=== PATIENT | female | born 1955 | race Caucasian/White ===

== ENCOUNTER → 2016-05-26 | Outpatient (REF) | payer MEDICARE, MEDICAID ==
[~2016-05-26] MED LIST: /AMLO25TA PO; /LABE20TA OR; ALBU17IN2 INH; ALEV220C2 PO; ALLO100T PO; ATEN50TA2 PO; BACT800T5 PO; BENA25CA2 PO; BENZ200C PO; CALTRATE PO; COLA50CA3 PO; COLC1CAP PO; DEPA500T2 OR; DO NOT TAKE; FENO54TA2 PO; FISH100049 PO; FISH300C PO; FLON0.054; FURO40TA2 OR; GABA100C PO; GEMF600T PO; HYDR12.56 PO; HYDR200T3 PO; LASI20TA PO; LIDO5DIS36 TD; LOSA100T36 PO; LUNE2TAB OR; MAGN250T11 PO; MAGN400C2 PO; MULTIVIT PO; NEXI20CA PO; NORCOTAB PO; NORT25CA2 PO; POTA10CA PO; POTA10PO PO; ROBISYP PO; ROSU10TA PO; TESS200C PO; TYLE325T5 PO; VIBR100C PO; VICOBULK PO; VITA200015 PO; VITATAB11 PO; ZYRT10TA2 PO; [UNRECOGNIZED DRUG - OTHER] PO; astelin; flexeril PO; vicodin PO
[2016-05-26 13:32] LABS: ALBUMIN 3.5 GM/DL (3.2-5.2); ALBUMIN/GLOBULIN RATIO 1.09 (1.00-1.93); ALKALINE PHOSPHATASE 77 U/L (45-117); ALT/SGPT 77 U/L (12-78); ANION GAP 9 MEQ/L (8-16); AST/SGOT 32 U/L (15-37); BILIRUBIN,TOTAL 0.7 MG/DL (0.2-1.0); BLOOD UREA NITROGEN 15 MG/DL (7-18); CALCIUM LEVEL 8.5 MG/DL (8.8-10.2); CARBON DIOXIDE LEVEL 34 MEQ/L (21-32); CHLORIDE LEVEL 101 MEQ/L (98-107); CHOLESTEROL LEVEL 176 MG/DL (<200); CREATININE FOR GFR 0.68 MG/DL (0.55-1.02); GLOMERULAR FILTRATION RATE > 60.0 (>45); GLUCOSE, FASTING 109 MG/DL (80-110); POTASSIUM SERUM 3.6 MEQ/L (3.5-5.1); SODIUM LEVEL 144 MEQ/L (136-145); TOTAL PROTEIN 6.7 GM/DL (6.4-8.2); TRIGLYCERIDES LEVEL 560 MG/DL (<150)
== END ==
LOC: M SFHCPLAZ 08:54
PROVIDERS: ATTEND Physician Assistant
DX: I10 Essential (primary) hypertension (principal); E66.8 Other obesity; E78.2 Mixed hyperlipidemia; Z79.899 Other long term (current) drug therapy

== ENCOUNTER 2016-07-07 16:26 | Emergency (ER) | payer MEDICARE, MEDICAID ==
[~2016-07-07] VITALS: Ht 165.1 cm; Wt 106.6 kg
[~2016-07-07 16:26] MED LIST changes: -BUSP1TAB PO; -LYRI75CA PO; -METH-107 PO; -METH2.5TA PO; -NEXI40CA PO; -ONDA4TAB6 PO; -TORS100T PO
[2016-07-07] MEDS ORDERED: BUSP1TAB PO (16:49)
[2016-07-07] MEDS ORDERED: LYRI75CA PO (16:49)
[2016-07-07] MEDS ORDERED: METH2.5TA PO (16:49)
[2016-07-07] MEDS ORDERED: TORS100T PO (16:49)
[2016-07-07] MEDS ORDERED: METH-107 PO (16:49)
[2016-07-07] MEDS: MORPHINE 2 MG/ML 1ML SYRINGE IV PRN ×4 (16:59→18:24)
[2016-07-07 17:29] LABS: BASO % 0.7 % (0.0-1.0); EOS # 0.1 K/mm3 (0.0-0.50); EOS % 1.6 % (0.0-3.0); LARGE UNSTAINED CELL # 0.1 K/mm3 (0.0-0.4); LARGE UNSTAINED CELL % 2.1 % (0.0-4.0); LYMPH # 1.4 K/mm3 (1.5-4.5); LYMPH % 30.1 % (24.0-44.0); MEAN CORPUSCULAR HEMOGLOBIN 33.8 pg (27.0-33.0); MEAN CORPUSCULAR HGB CONC 35.3 g/dl (32.0-36.5); MEAN CORPUSCULAR VOLUME 95.6 fl (80.0-96.0); MONO # 0.2 K/mm3 (0.0-0.8); MONO % 4.7 % (0.0-5.0); NEUTROPHILS # 2.9 K/mm3 (1.8-7.7); NEUTROPHILS % 60.8 % (36.0-66.0); PLATELET COUNT, AUTOMATED 141 k/mm3 (150-450); RED CELL DISTRIBUTION WIDTH 14.8 % (11.5-14.5); WHITE BLOOD COUNT 4.7 K/mm3 (4.0-10.0)
[2016-07-07 17:40] LABS: ALBUMIN 3.7 GM/DL (3.2-5.2); ALBUMIN/GLOBULIN RATIO 1.03 (1.00-1.93); ALKALINE PHOSPHATASE 92 U/L (45-117); ALT/SGPT 84 U/L (12-78); ANION GAP 8 MEQ/L (8-16); AST/SGOT 31 U/L (15-37); BILIRUBIN,DIRECT 0.2 MG/DL (0.0-0.2); BILIRUBIN,TOTAL 0.8 MG/DL (0.2-1.0); BLOOD UREA NITROGEN 14 MG/DL (7-18); CALCIUM LEVEL 8.3 MG/DL (8.8-10.2); CARBON DIOXIDE LEVEL 33 MEQ/L (21-32); CHLORIDE LEVEL 100 MEQ/L (98-107); GLOMERULAR FILTRATION RATE > 60.0 (>45); GLUCOSE, FASTING 115 MG/DL (80-110); POTASSIUM SERUM 3.6 MEQ/L (3.5-5.1); SODIUM LEVEL 141 MEQ/L (136-145); TOTAL PROTEIN 7.3 GM/DL (6.4-8.2)
[2016-07-07] MEDS: NITROGLYCERIN 0.4 MG SUBL TABLET SL PRN ×3 (21:11→21:25)
[2016-07-07 21:25] VITALS: BP 125/70
[2016-07-07] MEDS ORDERED: KETOROLAC 30 MG/ML VIAL (J1885) IV ONE (21:30)
[2016-07-07] MEDS ORDERED: ONDANSETRON 4MG/2ML VIAL (J2405) IV ONE (21:45)
[2016-07-07 21:58] VITALS: O2SAT 95
[2016-07-07 22:19] LABS: ABG BASE EXCESS 4.6 (-2.0-2.0); ABG HCO3 30.7 MEQ/L (22.0-26.0); ABG PARTIAL PRESSURE CO2 52.3 mmHg (35.0-45.0); ABG STANDARD HCO3 28.5 MEQ/L (22.0-26.0); ABG TOTAL CO2 32.3 MEQ/L (23.0-31.0); ABG pH (ARTERIAL) 7.387 UNITS (7.350-7.450)
[2016-07-07] MEDS ORDERED: PROMETHAZINE INJ 25 MG/ML VIAL (J2550) IV ONE (22:30)
[2016-07-07] MEDS ORDERED: GI COCKTAIL 50ML BTL(HYOSCYAMINE/MAALOX/LIDOCAINE VISCOUS)(1:3:1) PO ONE (23:00)
[2016-07-07] MEDS ORDERED: ISOVUE-370 76% 100ML VIAL (Q9967) As Ordered ONE (23:48)
--- NOTE | 2016-07-08 00:20 | REPUSA ---
CT of the abdomen and pelvis with contrast Clinical statement: Pain. Technique: Multiple axial CT images were obtained from the base of the lungs through the floor of the pelvis utilizing 5 mm axial slices after administration of nonionic intravenous contrast. Coronal an d sagittal reconstructions were also obtained. Comparison: 11/09/2015. Findings: Chest: The visualized lung bases demonstrate linear atelectasis bilaterally. There is a moderate siz ed hiatal hernia. Abdomen: The spleen, pancreas, kidneys, and adrenal glands are unremarkable. The liver is enlarged, d emonstrate diffuse low attenuation of the hepatic parenchyma. The liver measures 25.2 cm in diameter. No focal hepatic masses are appreciated. The aorta is within normal limits. There is no evidence of abdominal lymphadenopathy or ascites. Pelvis: The bowel is unremarkable, with no obstructive or inflammatory changes. Diffuse diverticulosi s is noted, without evidence of diverticulitis. The urinary bladder is within normal limits. The othe r pelvic structures appear grossly intact. There is no evidence of pelvic lymphadenopathy or ascites. Bones: There are no suspicious osseous abnormalities seen. Impression: 1. No obstructive or inflammatory bowel changes. Diffuse diverticulosis without evidence of diverticu litis. 2. Moderate sized hiatal hernia. 3.. Linear atelectasis in the lung bases bilaterally. 4. Hepatomegaly with diffuse fatty infiltration of the liver. 5. Overall, no significant change since the prior study.
[2016-07-08] MEDS ORDERED: ONDA4TAB6 PO (00:25)
[2016-07-08] MEDS ORDERED: NEXI40CA PO (00:25)
[2016-07-08 00:52] VITALS: BP 105/53
--- NOTE | 2016-07-08 07:01 | REP ---
CHEST, TWO VIEWS: Two views of the chest are performed and compared to prior study of 01/06/2016. There is mild bibasilar interstitial fibrotic change without evidence of acute infiltrate or pulmonary edema. Cardiac silhouette appears mildly enlarged. There is some tortuosity of the thoracic aorta. Mediastinal silhouette is unchanged. There are degenerative changes of the spine. IMPRESSION: Mild stable chronic findings without evidence of acute pulmonary disease. Signed by Sae Alfredo MD 07/08/2016 04:33 P
--- NOTE | 2016-07-09 08:34 | ECGEPIP ---
Stationary ECG Study [facility] - ED Test Date: 2016-07-07 Pat Name: JEREMI MALLOY Department: Room: - Gender: F Addressograph Operator: dacia : 1955 Requested By: TONYA BUENROSTRO Order Number: [id number] Reading MD: Jessica Miguel Measurements Intervals [place] Rate: 82 P: 43 NV: 159 QRS: 7 QRSD: 94 T: 57 QT: 369 QTc: 433 Interpretive Statements SINUS RHYTHM NONSPECIFIC T-WAVE ABNORMALITY INCREASED RATE 01/07/16 Electronically Signed On 07-09-2016 8:34:41 EDT by Jessica Miguel
--- NOTE | 2016-07-09 08:41 | ECGEPIP ---
Stationary ECG Study [facility] - ED Test Date: 2016-07-07 Pat Name: JEREMI MALLOY Department: Room: - Gender: F Bath Mixer: gunnar : 1955 Requested By: Jessica Miguel Order Number: [id number] Reading MD: Jessica Miguel Measurements Intervals [place] Rate: 71 P: 31 KS: 170 QRS: 1 QRSD: 92 T: 43 QT: 396 QTc: 432 Interpretive Statements SINUS RHYTHM MODERATE VOLTAGE CRITERIA FOR LVH, CONSIDER NORMAL VARIANT NONSPECIFIC T-WAVE ABNORMALITY DECREASED RATE 07/07/16 16:38 Electronically Signed On 07-09-2016 8:40:40 EDT by Jessica Miguel
== END 2016-07-08 01:01 | disposition home or self-care (01) ==
LOC: M ED 17:24
DX: K44.9 Diaphragmatic hernia without obstruction or gangrene (principal); K21.9 Gastro-esophageal reflux disease without esophagitis; M45.9 Ankylosing spondylitis of unspecified sites in spine; J45.909 Unspecified asthma, uncomplicated; R51 Headache; G47.33 Obstructive sleep apnea (adult) (pediatric); Z87.891 Personal history of nicotine dependence
CPT/HCPCS: 36415; 36600; 71020; 72052; 72072; 74177; 80048; 80076; 82550; 82553; 82803; 83880; 84484; 85025; 85379; 93005; 93041; 96374; 96375; 99285; J1885; J2405; Q9967

== ENCOUNTER → 2016-07-07 | Outpatient (CLI) | payer MEDICARE, MEDICAID ==
[~2016-07-07] MED LIST changes: +BUSP1TAB PO; +CRES10TA32 PO; +LYRI75CA PO; +METH-107 PO; +METH2.5TA PO; +NEXI40CA PO; +ONDA4TAB6 PO; -ROSU10TA PO; +TORS100T PO
--- NOTE | 2016-07-07 13:07 | REP ---
CERVICAL SPINE, NINE VIEWS: HISTORY: Anklyosing spondylitis. The cervical spine is visualized from C1-2 to C6-7 level in the lateral radiographs. There is no acute fracture or subluxation. The C3-4 through C6-7 intervertebral discs are decreased in height consistent with disc degeneration. Osteophytes are present on C5-7. There is narrowing of the left C4-6 neural foramina secondary to uncinate process hypertrophy. IMPRESSION: Degenerative change as described above. Signed by Dequan Dhillon MD 07/07/2016 01:11 P
--- NOTE | 2016-07-07 13:08 | REP ---
THORACIC SPINE, TWO VIEWS: HISTORY: Anklyosing spondylitis. There is no acute fracture or subluxation. There is loss of height of several mid and lower thoracic intervertebral discs. Osteophytes are present in the mid and lower thoracic spine. There is minimal scoliosis convex to the right. IMPRESSION: Degenerative change as described above. Signed by Dequan Dhillon MD 07/07/2016 01:11 P
== END ==
LOC: M RAD 11:04
PROVIDERS: ATTEND Nurse Practitioner Family
DX: M45.6 Ankylosing spondylitis lumbar region (principal)

== ENCOUNTER 2016-07-17 07:43 | Inpatient (IN) | payer MEDICARE, MEDICAID ==
[~2016-07-17] VITALS: Ht 165.1 cm; Wt 106.3 kg
[~2016-07-17 07:43] MED LIST changes: +BUSP1TAB PO; +LYRI75CA PO; +METH-107 PO; +METH2.5TA PO; +NEXI40CA PO; +ONDA4TAB6 PO; +TORS100T PO
[2016-07-17] MEDS ORDERED: NS 1,000 ML IV SCH (08:54)
[2016-07-17] MEDS: ALLOPURINOL 100 MG TAB PO SCH (09:00)
[2016-07-17] MEDS: LOSARTAN 50 MG TAB PO SCH (09:00)
[2016-07-17] MEDS: POTASSIUM CHLORIDE 10 MEQ SR TABLET PO SCH (09:00)
[2016-07-17] MEDS: VITAMIN D 1,000 INTERNATIONAL UNITS TABLET PO SCH (09:00)
[2016-07-17] MEDS: MULTIVITAMINS/MINERALS THERAP 1 TAB PO SCH (09:00)
[2016-07-17] MEDS: MORPHINE 4 MG/ML 1ML SYRINGE IV PRN ×2 (09:37→10:13)
[2016-07-17 09:40] LABS: BASO % 0.6 % (0.0-1.0); EOS % 0.5 % (0.0-3.0); LARGE UNSTAINED CELL # 0.1 K/mm3 (0.0-0.4); LARGE UNSTAINED CELL % 0.8 % (0.0-4.0); LYMPH # 1.5 K/mm3 (1.5-4.5); LYMPH % 22.3 % (24.0-44.0); MEAN CORPUSCULAR HEMOGLOBIN 33.5 pg (27.0-33.0); MEAN CORPUSCULAR VOLUME 95.6 fl (80.0-96.0); MONO # 0.3 K/mm3 (0.0-0.8); NEUTROPHILS # 4.8 K/mm3 (1.8-7.7); NEUTROPHILS % 70.7 % (36.0-66.0); PLATELET COUNT, AUTOMATED 136 k/mm3 (150-450); RED CELL DISTRIBUTION WIDTH 15.3 % (11.5-14.5); WHITE BLOOD COUNT 6.7 K/mm3 (4.0-10.0)
[2016-07-17 09:59] LABS: ALBUMIN 3.6 GM/DL (3.2-5.2); ALBUMIN/GLOBULIN RATIO 0.92 (1.00-1.93); ALKALINE PHOSPHATASE 85 U/L (45-117); ALT/SGPT 54 U/L (12-78); ANION GAP 9 MEQ/L (8-16); AST/SGOT 14 U/L (15-37); BILIRUBIN,DIRECT 0.1 MG/DL (0.0-0.2); BILIRUBIN,TOTAL 0.4 MG/DL (0.2-1.0); BLOOD UREA NITROGEN 18 MG/DL (7-18); CALCIUM LEVEL 8.6 MG/DL (8.8-10.2); CARBON DIOXIDE LEVEL 34 MEQ/L (21-32); CHLORIDE LEVEL 99 MEQ/L (98-107); GLOMERULAR FILTRATION RATE > 60.0 (>45); GLUCOSE, FASTING 125 MG/DL (80-110); POTASSIUM SERUM 3.8 MEQ/L (3.5-5.1); SODIUM LEVEL 142 MEQ/L (136-145); TOTAL PROTEIN 7.5 GM/DL (6.4-8.2)
--- NOTE | 2016-07-17 11:44 | REP ---
CT ABDOMEN: HISTORY: Right flank pain. COMPARISON: 16 priors. The lung bases are unchanged. Diffuse low density is seen throughout the hepatic parenchyma. There has been previous cholecystectomy. The spleen, pancreas, adrenal glands are unchanged. The kidneys are unchanged. There is no nephroureterolithiasis, hydronephrosis or hydroureter. There are no urinary bladder calcifications. There are bilateral pelvic phleboliths, status quo. There is no free fluid or free air in the abdomen or pelvis. The abdominal aorta and paraaortic regions are unchanged. The bowel loops and their mesenteries are within normal limits. There is colonic diverticulosis, status quo. There is no change in the osseous structures. IMPRESSION: No acute disease. There is fatty infiltration of the liver, status quo. There is no significant change compared to the prior exam other than technique. Signed by Saravanan Cheema DO 07/17/2016 01:32 P
[2016-07-17] MEDS ORDERED: MORPHINE 4 MG/ML 1ML SYRINGE IV ONE (12:00)
[2016-07-17] MEDS ORDERED: ROSU20TA PO (14:04)
[2016-07-17] MEDS ORDERED: ACET-654 PO (14:04)
[2016-07-17] MEDS ORDERED: [UNRECOGNIZED DRUG - CODE] PO (14:11)
[2016-07-17] MEDS ORDERED: VITMTA PO (14:11)
[2016-07-17] MEDS ORDERED: METH4PACK PO (14:13)
[2016-07-17] MEDS ORDERED: FLUTISP (14:15)
[2016-07-17 14:20] VITALS: BP 154/86
[2016-07-17] MEDS ORDERED: ONDANSETRON 4MG/2ML VIAL (J2405) IV PRN (14:45)
[2016-07-17] MEDS ORDERED: PERCOCET 5MG/325MG TAB PO PRN (14:45)
[2016-07-17] MEDS ORDERED: BISACODYL 5 MG TAB PO PRN (14:45)
[2016-07-17] MEDS ORDERED: MORPHINE 2 MG/ML 1ML SYRINGE IV PRN (14:45)
[2016-07-17] MEDS ORDERED: ALBUTEROL 90 MCG/ACT 8GM HFA INHALER INH PRN (15:00)
[2016-07-17] MEDS ORDERED: FLUTICASONE PROP 0.05% NASAL SPRAY 16 GM (FLONASE) PRN (15:00)
[2016-07-17 15:55] LABS: ERYTHROCYTE SEDIMENTATION RATE 13 mm/hr (0-30)
[2016-07-17] MEDS: TORSEMIDE 100 MG TAB PO SCH ×2 (16:17→18:10)
[2016-07-17] MEDS: MAGNESIUM OXIDE 400 MG TAB (MAG-OX) PO SCH ×2 (17:14→20:43)
[2016-07-17] MEDS: PERCOCET 5MG/325MG TAB PO PRN ×2 (17:16→23:31)
[2016-07-17] MEDS: ROSUVASTATIN 10 MG TAB (CRESTOR) PO SCH (20:41)
[2016-07-17] MEDS: SENOKOT S TAB PO SCH (20:42)
[2016-07-17] MEDS: busPIRone 5 MG TAB PO SCH (20:42)
[2016-07-17] MEDS: PREGABALIN 100 MG CAP (LYRICA) PO SCH (20:42)
[2016-07-17] MEDS: ENOXAPARIN 40 MG/0.4 ML SYRINGE (J1650) SC SCH (20:43)
[2016-07-17] MEDS: PANTOPRAZOLE 40MG TAB (PROTONIX) PO SCH (20:43)
[2016-07-17] MEDS ORDERED: METHOTREXATE 2.5 MG TAB (J8610) PO SCH (21:00)
--- NOTE | 2016-07-17 21:10 | HPE ---
DATE OF ADMISSION: 07/17/2016 CHIEF COMPLAINT: Right lower back pain. HISTORY: The patient presents with apparent increased back pain beginning at about 5:30 this morning. The patient came to the ED and now, according to the emergency room (ER) staff, refuses to be discharged home. She has no numbness, tingling, weakness, no loss of bladder or bowel control. She apparently has a long-term history of back pain and problems related to her back which plagued her for many years. She normally sees Chad Gandhi in the clinic. She was in the ED a few days ago after some chest discomfort and diagnosis was presumptive GERD. Apparently has an appointment with Dr. Marino. Has seen Dr. He in [place] for her apparent arthritis. She is on low dose methotrexate 7.5 mg weekly, I am not sure which day she takes her methotrexate. Gives a history of having ankylosing spondylitis although I do not see that diagnosis on her chart from the clinic. 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 PAST MEDICAL HISTORY: Includes hypertension, chronic low back pain with radiculitis, degenerative disc disease, seeing Dr. Marino locally, history of gout, history of COPD, seeing Dr. Saavedra. ALLERGIES: Include CIPRO, PENICILLIN and SPIRONOLACTONE, these apparently trigger skin reactions, allergy skin reactions listed as hives in her office record. PAST SURGICAL HISTORY: Includes hysterectomy in 2000, cholecystectomy in 1999, at which time she says she also had appendectomy, thyroidectomy in 2003, hernia repair in December 2015. Has a psychiatric history with suicide attempt and hospitalized some 20 years ago. FAMILY HISTORY: Positive for others with arthritic diseases she says and diabetes in her mother. MEDICATIONS: Include: - fish oil capsules 1000 mg daily - Nexium 40 mg daily - vitamin D 2000 units daily - potassium chloride 20 mEq daily - colchicine 0.6 mg daily as needed for gout - Aleve 220 mg twice a day as needed - ProAir two puffs every 4 hours as needed - methotrexate 7.5 mg weekly - Lyrica 75 mg twice a day - vitamin C 500 mg daily - Colace 100 mg by mouth daily - torsemide 100 mg by mouth daily - metformin 500 mg twice a day - Crestor 20 mg daily - magnesium oxide 400 mg by mouth three times a day - buspirone 7.5 mg twice a day - allopurinol 100 mg daily - Cozaar 100 mg daily - methocarbamol 500 mg three times a day Listed as not taking her last clinic note was hydrocodone 5/325 three times a day. PHYSICAL EXAMINATION: GENERAL: Obese white female in no apparent distress. Blood pressure 134/71, pulse 66, respiratory rate is 18, oxygen saturation 95% on room air. HEENT: Round, escalante facies, prominent parotids. No oral pharyngeal lesions, no tracheal shift. No palpable thyroid enlargement. No bruits noted. No oral lesions are detected. Neck movements were limited, patient declines to right and left rotate her neck, up and down tilt was also limited she says by pain. No palpable masses noted as dictated. HEART: Regular rhythm, no murmurs, gallops, rubs detected. PMI is diffuse, cannot be palpated clearly. LUNGS: No wheezing, rales or rhonchi heard at this time. ABDOMEN: Obese, prominent central obesity pattern. No guarding, rebound, mass, tenderness, and bowel sounds are present. EXTREMITIES: Show trace edema lower extremities. No pulse deficit. Moves all extremities well. The patient denies bowel or bladder control difficulties. She is tender to palpation over the lumbar elements approximately 4-5 and S1 with pain predominantly on the right side and pain radiating into the sciatic notch. She has no radicular pain down the right leg that is prominent at this time however. LABORATORY DATA: Developed so far as a result of this ER stay include CBC which shows a normal hemoglobin of 13.3, white count 6700, platelet count slightly low 136,000, etiology obscure at this point. Sodium was 142, CO2 34, and it looks like her CO2s have been high, particularly in the past couple of years but not exclusively so, she had CO2s of 33.7 as long ago as 2007, and calcium is 8.6. Liver enzymes are measured to be normal today, although she had an 84 ALT just about 2 weeks ago, the globulin ratio was slightly low at 0.92, and her total albumin 3.6. Previous KIRSTEN was positive at 1:640 and arterial blood gas was checked 2 weeks ago and pCO2 was 52.3. 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 There is no demonstrable neurologic disturbance that would prohibit ambulation other than simple pain perception. PLAN: 1. Admit. Analgesics. MRI of low back will be obtained, supposedly one was done elsewhere but the results are not available for review at this time. She says she has an appointment with pain specialist in the community whose name she could not reproduce today. Check sedimentation rate, CRP, since she has had instrumentation it is possible this could be an infection, although she has no fever or leukocytosis. I think this probability is low. 2. COPD with chronic hypercarbic respiratory failure. Looks to be well-compensated at this time requiring no specific therapeutics, but we will measure nocturnal oximetry. She is taking analgesics that could potentially depress respiratory drive and in the setting of CO2 retention this could be troublesome. Of note, the patient had recently been taken off her long-term narcotic medications, and it is possible this admission stems from that recent discontinuation.
[2016-07-17 22:00] VITALS: BP 143/81
[2016-07-18] MEDS ORDERED: PROMETHAZINE 25 MG TAB PO PRN (01:30)
[2016-07-18 06:00] VITALS: BP 127/83
[2016-07-18] MEDS: NORCO, ANEXSIA 5/325MG TABLET (HYDROcodone/ACETAMINOPHEN) PO PRN ×3 (06:13→16:33)
[2016-07-18 07:00] LABS: ALKALINE PHOSPHATASE 92 U/L (45-117); AST/SGOT 49 U/L (15-37); BILIRUBIN,TOTAL 0.6 MG/DL (0.2-1.0); BLOOD UREA NITROGEN 17 MG/DL (7-18); CHLORIDE LEVEL 97 MEQ/L (98-107); CREATININE FOR GFR 0.71 MG/DL (0.55-1.02); GLUCOSE, FASTING 136 MG/DL (80-110); MAGNESIUM LEVEL 2.2 MG/DL (1.8-2.4); POTASSIUM SERUM 3.8 MEQ/L (3.5-5.1); SODIUM LEVEL 141 MEQ/L (136-145); TOTAL PROTEIN 7.3 GM/DL (6.4-8.2)
[2016-07-18 07:16] LABS: ALT/SGPT 90 U/L (12-78)
[2016-07-18] MEDS: LOSARTAN 50 MG TAB PO SCH (08:07)
[2016-07-18] MEDS: busPIRone 5 MG TAB PO SCH ×2 (08:07→21:07)
[2016-07-18] MEDS: TORSEMIDE 100 MG TAB PO SCH (08:07)
[2016-07-18] MEDS: PANTOPRAZOLE 40MG TAB (PROTONIX) PO SCH ×2 (08:08→21:08)
[2016-07-18] MEDS: VITAMIN D 1,000 INTERNATIONAL UNITS TABLET PO SCH (08:08)
[2016-07-18] MEDS: MULTIVITAMINS/MINERALS THERAP 1 TAB PO SCH (08:08)
[2016-07-18] MEDS: SENOKOT S TAB PO SCH ×2 (08:08→21:08)
[2016-07-18] MEDS: ALLOPURINOL 100 MG TAB PO SCH (08:08)
[2016-07-18] MEDS: MAGNESIUM OXIDE 400 MG TAB (MAG-OX) PO SCH ×3 (08:08→21:08)
[2016-07-18] MEDS: PREGABALIN 100 MG CAP (LYRICA) PO SCH ×2 (08:08→21:08)
[2016-07-18] MEDS: POTASSIUM CHLORIDE 10 MEQ SR TABLET PO SCH (08:08)
--- NOTE | 2016-07-18 09:01 | IPNPDOC ---
Subjective Date Seen The patient was seen on 07/18/16. Subjective Chief Complaint/HPI The patient is a 60-year-old female admitted with a reason for visit of Low Back Pain. Events since last encounter Pt with continues with LBP unchanged. She is scheduled for MRI today. Denies any current radiation into lower extremities. Denies any loss of bowel or bladder control. Denies CP, SOB, Abd pain. Constitutional: Denies: Chills, Fever Pulmonary: Denies: Dyspnea Cardiovascular: Denies: Chest Pain Gastrointestinal: Denies: Nausea, Vomiting, Abdominal Pain Objective Physical Examination General Exam: Positive: Alert, No Acute Distress ENT Exam: Positive: Atraumatic Neck Exam: Positive: Supple, Negative: JVD Chest Exam: Positive: Clear to auscultation Heart Exam: Positive: Rate Normal, Regular Rhythm Abdomen Exam: Positive: Normal bowel sounds, Soft, Negative: Tenderness Extremity Exam: Negative: Edema Neuro Exam: Positive: Strength at 5/5 X4 ext, Sensation Intact Assessment /Plan Problems (1) Low back pain Status: Acute Problem Specific Plan: Monitor Clinically Problem Text: Acute point tenderness at 530 07/17/16 waking out of sleep mainly R L3/4 vertebral body-r/o fracture/met. No precedent fall/trauma 07/17/16 WBC 6.7, ESR 13, CRP <0.3, afebrile 07/16/16 CT AP NAD PT ordered. MRI ordered. Pt follows with Jamila (who 07/06/16 recommended and scheduled repeat B L5/S1 epidural "which helped in past")-has f/u 07/26/16 (2) Hiatal hernia with gastroesophageal reflux Status: Acute Problem Specific Plan: Monitor Clinically Problem Text: On Protonix. (3) HTN (hypertension) Status: Chronic Problem Specific Plan: Monitor Clinically Problem Text: On Cozaar and demadex. (4) COPD (chronic obstructive pulmonary disease) Status: Chronic Problem Specific Plan: Monitor Clinically Problem Text: Resp status stable. Pt follows with pulm. (5) Fibromyalgia Status: Chronic Problem Specific Plan: Monitor Clinically Problem Text: Pt follows Dr. Froilan Valadez Rheum-apt 07/25/16 Last seen 10/26/15 during [facility] SSZ changed to MTX 7.5 qW and + Lyrica c recommended f/u in 3M (6) Undifferentiated connective tissue disease Status: Chronic Response to Treatment: Stable Problem Text: Currently, no evidence of activity Pt follows Dr. Froilan Valadez Rheum-apt 07/25/16 Last seen 10/26/15 during [facility] SSZ changed to MTX 7.5 qW and + Lyrica c recommended f/u in 3M Plan/VTE VTE Prophylaxis Ordered?: Yes VS, I&O, 24H, Fishbone Vital Signs/I&O Vital Signs Date Time Temp Pulse Resp B/P (MAP) Pulse Ox O2 Delivery O2 Flow Rate FiO2 07/18/16 06:43 18 Room Air 07/18/16 06:00 97.0 63 127/83 (98) 95 I&O- Last 24 Hours up to 6 AM 07/18/16 06:00 Intake Total 1500 ml Output Total 1600 ml Balance -100 ml Laboratory Data 24H LABS Laboratory Tests 2 07/17/16 09:33: White Blood Count 6.7, Red Blood Count 3.98L, Hemoglobin 13.3, Hematocrit 38.1, Mean Corpuscular Volume 95.6, Mean Corpuscular Hemoglobin 33.5H, Mean Corpuscular Hemoglobin Concent 35.0, Red Cell Distribution Width 15.3H, Platelet Count 136L, Neutrophils (%) (Auto) 70.7H, Lymphocytes (%) (Auto) 22.3L , Monocytes (%) (Auto) 5.0, Eosinophils (%) (Auto) 0.5, Basophils (%) (Auto) 0.6 , Neutrophils # (Auto) 4.8, Lymphocytes # (Auto) 1.5, Monocytes # (Auto) 0.3, Eosinophils # (Auto) 0.0, Basophils # (Auto) 0.0, Large Unclassified Cells % 0.8 , Large Unclassified Cells # 0.1, Erythrocyte Sedimentation Rate 13, Anion Gap 9 , Glomerular Filtration Rate > 60.0, Calcium Level 8.6L, Aspartate Amino Transf (AST/SGOT) 14L, Alanine Aminotransferase (ALT/SGPT) 54, Alkaline Phosphatase 85 , Total Bilirubin 0.4, Direct Bilirubin 0.1, C-Reactive Protein, Quantitative < 0.30, Total Protein 7.5, Albumin 3.6, Albumin/Globulin Ratio 0.92L, Lipase 135 07/17/16 13:17: Urine Appearance CLEAR, Urine Color YELLOW, Urine pH 6.0, Urine Specific [place] 1.009, Urine Protein NEGATIVE, Urine Glucose (UA) NEGATIVE, Urine Ketones NEGATIVE, Urine Urobilinogen 0.2, Urine Bilirubin NEGATIVE, Urine Leukocyte Esterase 1+H, Urine Blood NEGATIVE, Urine Nitrite NEGATIVE, Urine WBC (Auto) 19H, Urine RBC (Auto) 1, Urine Hyaline Casts (Auto) 0, Urine Bacteria ( Auto) NEGATIVE, Urine Squamous Epithelial Cells 1, Urine Sperm (Auto) 07/18/16 06:17: Calcium Level 8.0L, Aspartate Amino Transf (AST/SGOT) 49H, Alanine Aminotransferase (ALT/SGPT) 90H, Alkaline Phosphatase 92, Total Bilirubin 0.6, Total Protein 7.3, Albumin 3.4, Blood Urea Nitrogen 17, Creatinine 0.71, Sodium Level 141, Potassium Level 3.8, Chloride Level 97L, Carbon Dioxide Level 36H, Magnesium Level 2.2 CBC/BMP Laboratory Tests 07/17/16 09:33 Red Blood Count 3.98 L, Mean Corpuscular Volume 95.6, Mean Corpuscular Hemoglobin 33.5 H, Mean Corpuscular Hemoglobin Concent 35.0, Red Cell Distribution Width 15.3 H, Neutrophils (%) (Auto) 70.7 H, Lymphocytes (%) (Auto ) 22.3 L, Monocytes (%) (Auto) 5.0, Eosinophils (%) (Auto) 0.5, Basophils (%) ( Auto) 0.6, Neutrophils # (Auto) 4.8, Lymphocytes # (Auto) 1.5, Monocytes # (Auto ) 0.3, Eosinophils # (Auto) 0.0, Basophils # (Auto) 0.0 07/18/16 06:17 Calcium Level 8.0 L, Aspartate Amino Transf (AST/SGOT) 49 H, Alanine Aminotransferase (ALT/SGPT) 90 H, Alkaline Phosphatase 92, Total Bilirubin 0.6, Total Protein 7.3, Albumin 3.4 Microbiology Microbiology 07/17/16 Urine Culture, Received Pending Chad Gandhi July 18, 2016 09:01 Stephan Daniel M.D. July 18, 2016 14:05
--- NOTE | 2016-07-18 09:25 | NOCOX ---
DATE OF PROCEDURE: 07/17/2016 INTERPRETATION: Nocturnal recording oximetry was performed on room air. Baseline saturation 94%. Lowest oxygen saturation 86%. Pattern was somewhat artifactual. There was a period of desaturation to 86%. IMPRESSION: Normal baseline oxygen saturation on room air but with episodes up to 15 minutes of desaturation to 86%. The pattern suggesting hypoventilatory oxygen desaturation.
[2016-07-18 10:52] LABS: ALBUMIN 3.4 GM/DL (3.2-5.2); ALBUMIN/GLOBULIN RATIO 0.87 (1.00-1.93); ANION GAP 8 MEQ/L (8-16); CARBON DIOXIDE LEVEL 36 MEQ/L (21-32)
[2016-07-18 14:00] VITALS: BP 139/80
[2016-07-18] MEDS: ENOXAPARIN 40 MG/0.4 ML SYRINGE (J1650) SC SCH (21:07)
[2016-07-18] MEDS: ROSUVASTATIN 10 MG TAB (CRESTOR) PO SCH (21:07)
[2016-07-18 22:00] VITALS: BP 131/77
[2016-07-19] MEDS: NORCO, ANEXSIA 5/325MG TABLET (HYDROcodone/ACETAMINOPHEN) PO PRN ×2 (00:29→08:37)
[2016-07-19 06:00] VITALS: BP 138/89
--- NOTE | 2016-07-19 06:47 | REP ---
MRI lumbar spine without contrast: History: Right-sided low back pain. Comparison MRI study is from August 12, 2013. Technique: Sagittal and axial T1 and T2-weighted scans are acquired in the usual fashion with and without fat saturation. Sequences include spin echo, turbo spin-echo, and STIR imaging sequences. MRI technique: There is a stable benign hemangioma in the superior posterior aspect of the L1 vertebral body measuring 1.4 cm in greatest diameter. This is unchanged. Cortical and medullary bone signal intensity are otherwise felt to be normal. Lumbar vertebral body heights are preserved. Alignment is normal. There is a small cyst in the medial cortex of the left mid kidney 9 mm in greatest diameter. No other extra vertebral abnormality is observed. Normal caliber aorta is seen. Conus medullaris is normal in position and appearance at the L1-L2 disc level. Sagittal images at T11-12 demonstrate central disc bulging unchanged from the 2013 study. The T11-12 disc shows narrowing and decreased signal intensity. At T12-L1, there is no significant abnormality. At L1-L2, there is mild disc space narrowing and decreased disc space signal intensity consistent with degenerative disc disease. No central canal stenosis or neural foraminal narrowing is seen. At L2-3, there is no significant abnormality. At L3-4, there is mild diffuse disc bulging effacing the ventral subarachnoid space. No central canal stenosis or neural foraminal narrowing is seen. At L4-5, there is minimal diffuse disc bulging. Mild facet hypertrophy is noted bilaterally. No central canal stenosis is seen. No neural foraminal encroachment. At L5-S1, there is degenerative disc narrowing and diffuse disc bulging. There is moderate facet hypertrophy bilaterally. No discernible neural foraminal narrowing is seen. Impression: Mild degenerative disc changes L5-S1, L3-4, and L2-3 as well as in the lower thoracic spine. Disc bulging at L4-5 and L5-S1 and L3-4. Facet hypertrophy most pronounced bilaterally at L5-S1. Findings are essentially unchanged from August 2013 prior study. Signed by Faizan Gomes MD 07/19/2016 08:24 A
[2016-07-19 06:50] LABS: MEAN CORPUSCULAR HGB CONC 34.4 g/dl (32.0-36.5); MEAN CORPUSCULAR VOLUME 98.8 fl (80.0-96.0); WHITE BLOOD COUNT 5.1 K/mm3 (4.0-10.0)
[2016-07-19 07:17] LABS: ALBUMIN 3.1 GM/DL (3.2-5.2); ALBUMIN/GLOBULIN RATIO 0.86 (1.00-1.93); ALKALINE PHOSPHATASE 87 U/L (45-117); ALT/SGPT 65 U/L (12-78); ANION GAP 6 MEQ/L (8-16); AST/SGOT 23 U/L (15-37); BILIRUBIN,TOTAL 0.6 MG/DL (0.2-1.0); BLOOD UREA NITROGEN 19 MG/DL (7-18); CALCIUM LEVEL 8.4 MG/DL (8.8-10.2); CARBON DIOXIDE LEVEL 39 MEQ/L (21-32); CHLORIDE LEVEL 95 MEQ/L (98-107); CREATININE FOR GFR 0.75 MG/DL (0.55-1.02); GLOMERULAR FILTRATION RATE > 60.0 (>45); GLUCOSE, FASTING 126 MG/DL (80-110); POTASSIUM SERUM 3.7 MEQ/L (3.5-5.1); SODIUM LEVEL 140 MEQ/L (136-145); TOTAL PROTEIN 6.7 GM/DL (6.4-8.2)
[2016-07-19] MEDS: busPIRone 5 MG TAB PO SCH (08:35)
[2016-07-19] MEDS: VITAMIN D 1,000 INTERNATIONAL UNITS TABLET PO SCH (08:36)
[2016-07-19] MEDS: ALLOPURINOL 100 MG TAB PO SCH (08:36)
[2016-07-19] MEDS: MULTIVITAMINS/MINERALS THERAP 1 TAB PO SCH (08:36)
[2016-07-19] MEDS: TORSEMIDE 100 MG TAB PO SCH (08:36)
[2016-07-19 08:37] VITALS: BP 138/89
[2016-07-19] MEDS: LOSARTAN 50 MG TAB PO SCH (08:37)
[2016-07-19] MEDS: POTASSIUM CHLORIDE 10 MEQ SR TABLET PO SCH (08:38)
[2016-07-19] MEDS: SENOKOT S TAB PO SCH (08:38)
[2016-07-19] MEDS: PANTOPRAZOLE 40MG TAB (PROTONIX) PO SCH (08:38)
[2016-07-19] MEDS: MAGNESIUM OXIDE 400 MG TAB (MAG-OX) PO SCH (08:38)
[2016-07-19] MEDS: PREGABALIN 100 MG CAP (LYRICA) PO SCH (08:38)
[2016-07-19] MEDS ORDERED: CRES10TA32 PO (10:06)
[2016-07-19] MEDS ORDERED: NORCOTAB PO (10:06)
[2016-07-19] MEDS ORDERED: METF500T PO (10:06)
--- NOTE | 2016-07-19 11:04 | DSES ---
DATE OF ADMISSION: 07/17/2016 DATE OF DISCHARGE: 07/19/2016 ATTENDING PHYSICIAN: Dr. Charly Og HISTORY OF PRESENT ILLNESS: Vicky Gooden is a 60-year-old female patient who follows with ZAIN Giang at the [facility] who presented with increasing low back pain. The patient apparently refused to be discharged home and wanted to find out the cause for back pain. She has a history of going to the pain clinic and had injection several years ago and she does have an appointment with Dr. Marino to re-establish there next week on 07/26/2016. The patient also does have a history of fibromyalgia and has an appointment with her fbi investigator on 07/25/2016. She was admitted for intractable back pain and an MRI of the low back was ordered. MRI showed mild degenerative disc changes L5-S1, L3-4, and L2-3, both in the lower thoracic spine. Disc bulging at L4-5, L5-S1 and L3-4. Facette hypertrophy most pronounced bilaterally at L5-S1. Findings are essentially unchanged from August 2013 prior study per radiologist. The patient was given pain control with [place] and she took anywhere from one to two tablets as needed for pain control. This did improve her pain. She did work with physical therapy and at discharge she will be given orders to continue physical therapy. She has a follow-up appointment scheduled next week with Dr. Marino. On discharge, I will give her a 7-day supply of Bill[place] to last until she sees Dr. Marino and then I will defer to Dr. Marino for pain management. Additionally, the patient did have labs for sed rate and CRP both of which were unremarkable. The patient was also followed for gastroesophageal reflux disease and was placed on Protonix 40 mg by mouth twice a day. At home she is on Nexium and can continue the Nexium. The patient has a history of sleep apnea and she was encouraged to continue to use her CPAP. She should followup with pulmonary after discharge. She was continued on Cozaar and Demadex for hypertension. She follows with pulmonary for COPD and respiratory status stable during the course of her hospitalization. As noted above, she does have a history of fibromyalgia and does have an appointment with rheumatology 07/25/2016. She is on methotrexate and Lyrica. She is followed by rheumatology for the fibromyalgia and a connective tissue disorder. PHYSICAL EXAMINATION: VITAL SIGNS: Temperature 97.5, pulse 61, respiratory rate 18, blood pressure 138/89 pulse ox 92%. GENERAL: The patient is alert, no acute distress. No respiratory distress. CHEST: Clear to auscultation bilaterally. HEART: Regular rate and rhythm. ABDOMEN: Positive bowel sounds, soft, nontender. EXTREMITIES: No edema. LABS: WBC 5.1, hemoglobin 13.0, hematocrit 37.7, platelets 125. Chemistry was sodium 140, potassium 3.7, chloride 95, carbon dioxide 39, BUN 19, creatinine 0.75, glucose 126, calcium 8.4, total bilirubin 0.6, AST 23, ALT 65, alk phos 87 , total protein 6.7, albumin 3.1. MEDICATIONS: - Billings one to two tablets by mouth every 6 hours as needed pain - metformin 500 mg by mouth bid - Crestor 20 mg by mouth nightly - acetaminophen 650 mg by mouth every 4 hours as needed pain - albuterol puffer two puffs every 4 hours as needed shortness of breath - allopurinol 100 mg by mouth daily - BuSpar 7.5 mg by mouth bid - vitamin D3 2000 units by mouth daily - colchicine 0.6 mg by mouth as needed gout - Nexium 40 mg by mouth twice a day - fish oil daily - fluticasone one spray once a day - losartan 100 mg by mouth daily - magnesium 4 mg by mouth three times a day - methotrexate 7.5 mg by mouth weekly - multivitamin by mouth daily - potassium chloride 20 mEq by mouth daily - Lyrica 75 mg by mouth twice a day - Crestor 20 mg by mouth nightly - torsemide 100 mg by mouth daily DISCHARGE INSTRUCTIONS: Patient is given orders for physical therapy for low back pain. The patient should followup with primary care provider, Carlos Gandhi in 1 week. The patient should followup with pulmonary in a week. The patient should followup with Dr. Marino her pain clinician as scheduled on 07/26/2016. The patient should followup with her fbi investigator as scheduled on 07/25/2016. Diet: No added salt carbohydrate consistent. Activity as tolerated. FINAL DISCHARGE DIAGNOSES: Low back pain. Hiatal hernia with gastroesophageal reflux. Hypertension. Chronic obstructive pulmonary disease (COPD) Fibromyalgia. Connective tissue disorder. Sleep apnea. cc: *Dr. Jamila DOUGLAS
== END 2016-07-19 12:47 | disposition home or self-care (01) | DRG 552 ==
LOC: M ED 09:20 → M ED INP 14:42 → M MSPAV 16:19
PROVIDERS: ADMIT Family Medicine; ATTEND Family Medicine
DX: M51.27 Other intervertebral disc displacement, lumbosacral region (principal); J96.12 Chronic respiratory failure with hypercapnia; I10 Essential (primary) hypertension; J44.9 Chronic obstructive pulmonary disease, unspecified; G47.30 Sleep apnea, unspecified; M79.7 Fibromyalgia; M51.84 Other intervertebral disc disorders, thoracic region; L94.8 Other specified localized connective tissue disorders; K44.9 Diaphragmatic hernia without obstruction or gangrene; K21.9 Gastro-esophageal reflux disease without esophagitis; Z88.0 Allergy status to penicillin; Z88.1 Allergy status to other antibiotic agents; Z88.8 Allergy status to other drugs, medicaments and biological substances; Z90.710 Acquired absence of both cervix and uterus; Z90.49 Acquired absence of other specified parts of digestive tract; Z91.5 Personal history of self-harm; Z82.61 Family history of arthritis; Z83.3 Family history of diabetes mellitus; Z79.84 Long term (current) use of oral hypoglycemic drugs; Z99.89 Dependence on other enabling machines and devices

== ENCOUNTER → 2016-08-23 | Outpatient (CLI) | payer MEDICARE, MEDICAID ==
[~2016-08-23] MED LIST changes: +ACET-654 PO; +FLUTISP; +METF500T PO; +METH4PACK PO; +ROSU20TA PO; +VITMTA PO; +[UNRECOGNIZED DRUG - CODE] PO
--- NOTE | 2016-08-23 16:29 | REP ---
MR THORACIC SPINE WITHOUT CONTRAST: HISTORY: Cervicalgia. A small left paracentral disc protrusion is present at the T5-6 level. There is minimal effacement of the thecal sac without spinal cord compression. The T5 neural foramina are patent. A small right paracentral disc protrusion is present at the T8-9 level. There is minimal effacement of the thecal sac without spinal cord compression. The T8 neural foramina are patent. A disc bugle is present at the T9-10 level. There is minimal effacement of the thecal sac without spinal cord compression. The T9 neural foramina are patent. A disc bulge is present at the T10-11 level. There is minimal effacement of the thecal sac without spinal cord compression. The T10 neural foramina are patent. A disc bulge is present at the T11-12 level. There is minimal effacement of the thecal sac without spinal cord compression. The T11 neural foramina are patent. There is no other disc bulge or herniation. The remaining neural foramina are patent. The spinal cord is normal in signal intensity. Hemangiomas are present in the T5, T8 and L1 vertebral bodies. Normal signal intensity is present in the remaining thoracic vertebral bodies. There are old compression fractures of the T4 and T5 vertebral bodies with minimal height loss. IMPRESSION: 1. Small disc protrusions at the T5-6 and T8-9 levels without spinal cord compression. 2. Disc bulges at the T9-10 through T11-12 levels without spinal cord compression. Signed by Dequan Dhillon MD 08/23/2016 04:30 P
--- NOTE | 2016-08-23 16:36 | REP ---
MR CERVICAL SPINE WITHOUT CONTRAST: HISTORY: Cervicalgia. COMPARISON: 07/01/2011. A disc bulge and small central disc protrusion at the C3-4 level. There is minimal effacement of the thecal sac without spinal cord compression. Uncinate process hypertrophy is present in the left. This produces minimal narrowing of the left C3 neural foramen. The right C3 neural foramen is patent. A disc bulge is present at the C4-5 level. There is moderate effacement of the thecal sac without spinal cord compression. Uncinate process hypertrophy is present on the left. This produces minimal narrowing of the left C4 neural foramen. The right C4 neural foramen is patent. A disc bulge is present at the C5-6 level. There is mild effacement of the thecal sac without spinal cord compression. The C5 neural foramina are patent. A disc bulge with associated osteophyte formation is present at the C6-7 level. There is mild effacement of the thecal sac without spinal cord compression. Uncinate process hypertrophy is present on the left. This produces minimal narrowing of the left C6 neural foramen. The right C6 neural foramen is patent. There is no other disc bulge or herniation. The remaining neural foramina are patent. The spinal cord is normal in signal and intensity. The C3-4 through C6-7 intervertebral disc are decreased in height consistent with disc degeneration. Normal signal intensity is present in the cervical vertebral bodies. IMPRESSION: There is cervical spondylosis at the C3-4 through C6-7 levels without spinal cord compression. There is no significant change compared to the previous study. Signed by Dequan Dhillon MD 08/23/2016 04:41 P
== END ==
LOC: M RAD 12:53
PROVIDERS: ATTEND Nurse Practitioner Family
DX: M47.812 Spondylosis without myelopathy or radiculopathy, cervical region (principal); M51.36 Other intervertebral disc degeneration, lumbar region; M51.24 Other intervertebral disc displacement, thoracic region; I10 Essential (primary) hypertension; M79.1 Myalgia

== ENCOUNTER → 2016-09-20 | Outpatient (REF) | payer MEDICARE, MEDICAID ==
[~2016-09-20] MED LIST changes: -ACET-654 PO; +ACET1TAB17 PO; +ARAV1TAB PO; +CEPH500C PO; +D32000CA PO; +DICY20TA11 PO; +ESOM1CAP5 PO; -LIDO5DIS36 TD; +LIDO5DIS41 TD; -METF500T PO; +METF500T13 PO; -METH-107 PO; +METH1TAB40 PO; +PREG100CA PO; -[UNRECOGNIZED DRUG - CODE] PO
[2016-09-20 13:44] LABS: ANION GAP 8 MEQ/L (8-16); BLOOD UREA NITROGEN 13 MG/DL (7-18); CALCIUM LEVEL 8.7 MG/DL (8.8-10.2); CARBON DIOXIDE LEVEL 33 MEQ/L (21-32); CHLORIDE LEVEL 101 MEQ/L (98-107); GLOMERULAR FILTRATION RATE > 60.0 (>45); GLUCOSE, FASTING 153 MG/DL (80-110); POTASSIUM SERUM 3.5 MEQ/L (3.5-5.1); SODIUM LEVEL 142 MEQ/L (136-145)
== END ==
LOC: M SFHCPLAZ 11:27
PROVIDERS: ATTEND Physician Assistant
DX: Z01.818 Encounter for other preprocedural examination (principal); R22.31 Localized swelling, mass and lump, right upper limb
CPT/HCPCS: 80048; G0463

== ENCOUNTER → 2016-10-03 | Outpatient (REF) | payer MEDICARE, MEDICAID ==
[2016-10-03 13:37] LABS: ALBUMIN 3.3 GM/DL (3.2-5.2); ALBUMIN/GLOBULIN RATIO 0.89 (1.00-1.93); ALKALINE PHOSPHATASE 89 U/L (45-117); ALT/SGPT 41 U/L (12-78); ANION GAP 8 MEQ/L (8-16); AST/SGOT 14 U/L (15-37); BILIRUBIN,TOTAL 0.4 MG/DL (0.2-1.0); BLOOD UREA NITROGEN 11 MG/DL (7-18); CALCIUM LEVEL 9.3 MG/DL (8.8-10.2); CARBON DIOXIDE LEVEL 32 MEQ/L (21-32); CHLORIDE LEVEL 100 MEQ/L (98-107); CHOLESTEROL LEVEL 188 MG/DL (<200); CREATININE FOR GFR 0.55 MG/DL (0.55-1.02); GLOMERULAR FILTRATION RATE > 60.0 (>45); GLUCOSE, FASTING 119 MG/DL (80-110); POTASSIUM SERUM 4.3 MEQ/L (3.5-5.1); SODIUM LEVEL 140 MEQ/L (136-145); TRIGLYCERIDES LEVEL 300 MG/DL (<150)
== END ==
LOC: M SFHCADAM 08:43
PROVIDERS: ATTEND Physician Assistant
DX: R73.03 Prediabetes (principal); E78.2 Mixed hyperlipidemia

== ENCOUNTER 2016-11-29 10:34 | Outpatient (CLI) | payer MEDICARE, MEDICAID ==
[~2016-11-29] VITALS: Ht 165.1 cm; Wt 104.3 kg
[~2016-11-29 10:34] MED LIST changes: -CEPH500C PO
[2016-11-29] MEDS ORDERED: NS 1,000 ML IV SCH (10:45)
[2016-11-29] MEDS ORDERED: LIDOCAINE 2% INJ 100 MG/5 ML SDV (FOR ANES.) As Ordered ONE (12:07)
[2016-11-29] MEDS ORDERED: PROPOFOL 200 MG/20 ML VIAL As Ordered ONE ×2 (12:07→12:14)
--- NOTE | 2016-11-29 12:32 | ROOR ---
Patient Name: Vicky Gooden Procedure Date: 11/29/2016 12:05 PM Date of : 1955 Age: 60 Room: [facility] Gender: Female Note Status: Finalized Procedure: Colonoscopy Indications: Screening for colorectal malignant neoplasm, Incidental change in bowel habits noted Providers: Valdemar RODRIGUEZ MD Referring MD: ZAIN Lilly Requesting Provider: Medicines: Monitored Anesthesia Care Complications: No immediate complications. Procedure: Pre-Anesthesia Assessment: - The heart rate, respiratory rate, oxygen saturations, blood pressure, adequacy of pulmonary ventilation, and response to care were monitored throughout the procedure. The Colonoscope was introduced through the anus and advanced to the cecum, identified by appendiceal orifice and ileocecal valve. The colonoscopy was performed without difficulty. The patient tolerated the procedure well. The quality of the bowel preparation was good. Findings: The perianal and digital rectal examinations were normal. Six sessile polyps were found in the sigmoid colon and ascending colon. The polyps were diminutive in size. These polyps were removed with a cold snare. Resection and retrieval were complete. Multiple small-mouthed diverticula were found in the sigmoid colon. Small Internal Hemorrhoids. Biopsies for histology were taken with a cold forceps from the entire colon for evaluation of microscopic colitis. Impression: - Six diminutive polyps in the sigmoid colon and in the ascending colon, removed with a cold snare. Resected and retrieved. - Mild diverticulosis in the sigmoid colon. - Small Internal Hemorrhoids. - The colon was otherwise normal. - Biopsies were taken with a cold forceps from the entire colon for evaluation of microscopic colitis. Recommendation: - Repeat colonoscopy in 3 years for surveillance. - Continue present medications. - Telephone endoscopist for pathology results in 2 weeks. Valdemar Rodriguez MD Valdemar RODRIGUEZ MD 11/29/2016 12:31:04 PM This report has been signed electronically. Number of Addenda: 0 Note Initiated On: 11/29/2016 12:05 PM Estimated Blood Loss: Estimated blood loss: none.
[2016-11-29 13:05] VITALS: BP 155/91
== END 2016-11-29 13:07 | disposition home or self-care (01) ==
LOC: M OPP 10:34
PROVIDERS: ATTEND Internal Medicine Gastroenterology
DX: Z12.11 Encounter for screening for malignant neoplasm of colon (principal); R19.4 Change in bowel habit; D12.5 Benign neoplasm of sigmoid colon; D12.2 Benign neoplasm of ascending colon; K57.30 Diverticulosis of large intestine without perforation or abscess without bleeding; K64.8 Other hemorrhoids; K58.9 Irritable bowel syndrome, unspecified; K44.9 Diaphragmatic hernia without obstruction or gangrene; I10 Essential (primary) hypertension; E78.5 Hyperlipidemia, unspecified; R01.1 Cardiac murmur, unspecified; E04.1 Nontoxic single thyroid nodule; R12 Heartburn; M19.90 Unspecified osteoarthritis, unspecified site; M06.9 Rheumatoid arthritis, unspecified; M51.9 Unspecified thoracic, thoracolumbar and lumbosacral intervertebral disc disorder; M79.7 Fibromyalgia; J44.9 Chronic obstructive pulmonary disease, unspecified; G47.30 Sleep apnea, unspecified; R06.83 Snoring; Z88.1 Allergy status to other antibiotic agents; Z88.8 Allergy status to other drugs, medicaments and biological substances; Z88.5 Allergy status to narcotic agent; Z88.0 Allergy status to penicillin; Z79.899 Other long term (current) drug therapy

== ENCOUNTER 2016-12-20 14:52 | Emergency (ER) | payer MEDICARE, MEDICAID ==
[~2016-12-20] VITALS: Ht 165.1 cm; Wt 104.5 kg
[2016-12-20] MEDS ORDERED: COLC1CAP PO (15:15)
[2016-12-20] MEDS ORDERED: NORCO, ANEXSIA 5/325MG TABLET (HYDROcodone/ACETAMINOPHEN) PO ONE ×2 (17:45→22:00)
--- NOTE | 2016-12-20 18:00 | REP ---
Chest two views HISTORY: Chest pain Comparison: 07/07/2016 The lungs are clear. The heart is normal in size. The pulmonary vasculature is normal in appearance. Degenerative change is present in the thoracic spine. IMPRESSION: No acute disease. Signed by Dequan Dhillon MD 12/20/2016 05:52 P
[2016-12-20 18:01] LABS: YEAST LIKE CELL URINE AUTO SMALL
[2016-12-20 18:26] VITALS: BP 109/71
[2016-12-20 18:31] LABS: BASO % 0.6 % (0.0-1.0); EOS # 0.1 10^3/uL (0.0-0.50); EOS % 1.3 % (0.0-3.0); IMMATURE GRANULOCYTE % 0.5 % (0-0); LYMPH # 1.6 10^3/uL (1.5-4.5); LYMPH % 24.9 % (24.0-44.0); MEAN CORPUSCULAR HGB CONC 34.9 g/dl (32.0-36.5); MEAN CORPUSCULAR VOLUME 91.8 fl (80.0-96.0); MONO # 0.5 10^3/uL (0.0-0.8); MONO % 7.9 % (0.0-5.0); NEUTROPHILS # 4.1 10^3/uL (1.8-7.7); NEUTROPHILS % 64.8 % (36.0-66.0); PLATELET COUNT, AUTOMATED 143 10^3/uL (150-450); RED CELL DISTRIBUTION WIDTH 14.7 % (11.5-14.5); WHITE BLOOD COUNT 6.3 10^3/uL (4.0-10.0)
[2016-12-20 18:51] LABS: ALBUMIN 3.6 GM/DL (3.2-5.2); ALKALINE PHOSPHATASE 91 U/L (45-117); ALT/SGPT 81 U/L (12-78); ANION GAP 8 MEQ/L (8-16); AST/SGOT 40 U/L (15-37); BILIRUBIN,DIRECT 0.2 MG/DL (0.0-0.2); BILIRUBIN,TOTAL 0.8 MG/DL (0.2-1.0); BLOOD UREA NITROGEN 17 MG/DL (7-18); CARBON DIOXIDE LEVEL 31 MEQ/L (21-32); CHLORIDE LEVEL 101 MEQ/L (98-107); CREATININE FOR GFR 0.78 MG/DL (0.55-1.02); GLOMERULAR FILTRATION RATE > 60.0 (>45); GLUCOSE, FASTING 99 MG/DL (80-110); POTASSIUM SERUM 3.1 MEQ/L (3.5-5.1); SODIUM LEVEL 140 MEQ/L (136-145); TOTAL PROTEIN 7.6 GM/DL (6.4-8.2)
[2016-12-20] MEDS ORDERED: POTASSIUM CHLORIDE 10% LIQ 20 MEQ/15 ML UDC PO ONE (19:30)
[2016-12-20] MEDS ORDERED: MORPHINE 2 MG/ML 1ML SYRINGE IV ONE (19:30)
--- NOTE | 2016-12-20 20:00 | REPUSA ---
CT of the abdomen and pelvis without contrast Clinical statement: Pain. Technique: Multiple axial CT images were obtained from the base of the lungs to the floor of the pelv is utilizing 5 mm axial slices without administration of contrast. Coronal and sagittal reconstructio ns were also obtained. Comparison: 07/07/2016. Findings: Chest: The visualized lung bases are clear. There is a small hiatal hernia. Abdomen: The kidneys are normal in size bilaterally. There is no evidence of hydronephrosis or nephro lithiasis. The liver, spleen, pancreas, and adrenal glands are unremarkable. The aorta demonstrates n ormal caliber and contour. There is no abdominal lymphadenopathy or ascites. Pelvis: The bowel is unremarkable, with no obstructive or inflammatory changes. Left-sided diverticul osis is stable, without evidence of diverticulitis. The urinary bladder is within normal limits. Ther e is no pelvic lymphadenopathy or ascites. The other pelvic structures appear unremarkable. Bones: There are no suspicious osseous abnormalities seen. Impression: 1. No obstructive or inflammatory bowel changes. Stable left-sided diverticulosis. 2. No evidence of hydronephrosis or nephrolithiasis. 3. Overall, stable examination.
--- NOTE | 2016-12-20 20:43 | ECGEPIP ---
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
[2016-12-20] MEDS ORDERED: CEPH500C PO (20:54)
[2016-12-20] MEDS ORDERED: CEPHALEXIN 500 MG CAP PO ONE (21:00)
== END 2016-12-20 23:23 | disposition home or self-care (01) ==
LOC: M ED 14:52
DX: N39.0 Urinary tract infection, site not specified (principal); N10 Acute pyelonephritis; M54.32 Sciatica, left side

== ENCOUNTER → 2017-01-02 | Outpatient (REF) | payer MEDICARE, MEDICAID ==
[~2017-01-02] MED LIST changes: +CEPH500C PO
[2017-01-02 11:51] LABS: ALBUMIN 3.4 GM/DL (3.2-5.2); ALBUMIN/GLOBULIN RATIO 0.87 (1.00-1.93); ALKALINE PHOSPHATASE 95 U/L (45-117); ALT/SGPT 64 U/L (12-78); ANION GAP 7 MEQ/L (8-16); AST/SGOT 22 U/L (15-37); BILIRUBIN,TOTAL 0.4 MG/DL (0.2-1.0); BLOOD UREA NITROGEN 17 MG/DL (7-18); CALCIUM LEVEL 9.8 MG/DL (8.8-10.2); CARBON DIOXIDE LEVEL 36 MEQ/L (21-32); CHLORIDE LEVEL 100 MEQ/L (98-107); CREATININE FOR GFR 0.68 MG/DL (0.55-1.02); GLOMERULAR FILTRATION RATE > 60.0 (>45); GLUCOSE, FASTING 130 MG/DL (80-110); POTASSIUM SERUM 3.3 MEQ/L (3.5-5.1); SODIUM LEVEL 143 MEQ/L (136-145); TOTAL PROTEIN 7.3 GM/DL (6.4-8.2)
== END ==
LOC: M SFHCPLAZ 08:07
PROVIDERS: ATTEND Family Medicine
DX: R73.03 Prediabetes (principal)

== ENCOUNTER → 2017-01-18 | Outpatient (REF) | payer MEDICARE, MEDICAID ==
[2017-01-18 19:21] LABS: ANION GAP 8 MEQ/L (8-16); BLOOD UREA NITROGEN 16 MG/DL (7-18); CALCIUM LEVEL 8.7 MG/DL (8.8-10.2); CARBON DIOXIDE LEVEL 32 MEQ/L (21-32); CHLORIDE LEVEL 98 MEQ/L (98-107); CREATININE FOR GFR 0.89 MG/DL (0.55-1.02); GLOMERULAR FILTRATION RATE > 60.0 (>45); POTASSIUM SERUM 3.3 MEQ/L (3.5-5.1); SODIUM LEVEL 138 MEQ/L (136-145)
[2017-01-18 19:22] LABS: GLUCOSE, FASTING 147 MG/DL (80-110)
== END ==
LOC: M SFHCPLAZ 15:37
PROVIDERS: ATTEND Family Medicine
DX: E87.6 Hypokalemia (principal); Z23 Encounter for immunization
CPT/HCPCS: 36415; 80048; 90686; G0008; G0463

== ENCOUNTER → 2017-02-22 | Outpatient (REF) | payer MEDICARE, MEDICAID ==
[2017-02-22 12:07] LABS: ANION GAP 8 MEQ/L (8-16); BLOOD UREA NITROGEN 18 MG/DL (7-18); CARBON DIOXIDE LEVEL 31 MEQ/L (21-32); CHLORIDE LEVEL 101 MEQ/L (98-107); GLOMERULAR FILTRATION RATE > 60.0 (>45); GLUCOSE, FASTING 114 MG/DL (80-110); POTASSIUM SERUM 3.4 MEQ/L (3.5-5.1); SODIUM LEVEL 140 MEQ/L (136-145)
== END ==
LOC: M SFHCPLAZ 08:51
PROVIDERS: ATTEND Family Medicine
DX: E87.6 Hypokalemia (principal)

== ENCOUNTER → 2017-05-02 | Outpatient (REF) | payer MEDICARE, MEDICAID ==
[2017-05-02 13:26] LABS: ANION GAP 7 MEQ/L (8-16); BLOOD UREA NITROGEN 18 MG/DL (7-18); CALCIUM LEVEL 8.5 MG/DL (8.8-10.2); CARBON DIOXIDE LEVEL 34 MEQ/L (21-32); CHLORIDE LEVEL 102 MEQ/L (98-107); CREATININE FOR GFR 0.63 MG/DL (0.55-1.30); GLOMERULAR FILTRATION RATE > 60.0 (>45); GLUCOSE, FASTING 115 MG/DL (70-100); MAGNESIUM LEVEL 1.8 MG/DL (1.8-2.4); POTASSIUM SERUM 3.7 MEQ/L (3.5-5.1); SODIUM LEVEL 143 MEQ/L (136-145)
[2017-05-02 13:29] LABS: ESTIMATED AVERAGE GLUCOSE 137 MG/DL (60-110); HEMOGLOBIN A1c 6.4 %
[2017-05-02 20:17] LABS: MALB URINE SIEMENS 10.8 MG/L; MAU/CREAT RATIO 8.5 MCG/MG (0.0-30.0)
== END ==
LOC: M SFHCPLAZ 08:08
DX: E11.9 Type 2 diabetes mellitus without complications (principal); E87.6 Hypokalemia; E83.42 Hypomagnesemia
CPT/HCPCS: 83735

== ENCOUNTER → 2017-08-22 | Outpatient (CLI) | payer MEDICARE, OTHER | LOC: M WHC 10:49 | DX: Z12.31 Encounter for screening mammogram for malignant neoplasm of breast (principal) | CPT/HCPCS: 77067 ==

== ENCOUNTER 2017-10-31 16:14 | Inpatient (IN) | payer MEDICARE, OTHER, MEDICAID ==
[2017-10-31] MEDS: HYDROMORPHONE HCL 0.5 MG/ 0.5 ML SYRINGE (J1170 PER 1) IV ×2 (18:08→20:01)
[2017-10-31] MEDS: ONDANSETRON 4MG/2ML VIAL (J2405) IV (18:08)
[2017-10-31] MEDS: CLOPIDOGREL 75 MG TAB PO (18:15)
[2017-10-31 18:16] LABS: BASO % 0.4 % (0.0-1.0); EOS # 0.1 10^3/uL (0.0-0.50); EOS % 1.4 % (0.0-3.0); HEMATOCRIT 36.9 % (36.0-47.0); HEMOGLOBIN 12.8 g/dl (12.0-15.5); IMMATURE GRANULOCYTE % 0.5 % (0-3.0); LYMPH # 1.6 10^3/uL (1.5-4.5); LYMPH % 27.7 % (24.0-44.0); MEAN CORPUSCULAR HEMOGLOBIN 32.6 pg (27.0-33.0); MEAN CORPUSCULAR HGB CONC 34.7 g/dl (32.0-36.5); MEAN CORPUSCULAR VOLUME 93.9 fl (80.0-96.0); MONO # 0.3 10^3/uL (0.0-0.8); MONO % 4.9 % (0.0-5.0); NEUTROPHILS # 3.7 10^3/uL (1.8-7.7); NEUTROPHILS % 65.1 % (36.0-66.0); PLATELET COUNT, AUTOMATED 129 10^3/uL (150-450); RED BLOOD COUNT 3.93 10^6/uL (4.00-5.40); WHITE BLOOD COUNT 5.7 10^3/uL (4.0-10.0)
[2017-10-31 18:30] LABS: INR 0.92; PROTHROMBIN TIME 12.5 SECONDS (12.1-14.4)
[2017-10-31 18:31] LABS: PARTIAL THROMBOPLASTIN TIME 27.6 SECONDS (25.4-37.6)
[2017-10-31 18:40] LABS: ANION GAP 8 MEQ/L (8-16); BLOOD UREA NITROGEN 10 MG/DL (7-18); CALCIUM LEVEL 8.3 MG/DL (8.8-10.2); CARBON DIOXIDE LEVEL 34 MEQ/L (21-32); CHLORIDE LEVEL 98 MEQ/L (98-107); CK-MB VALUE MASS 2.6 NG/ML (<3.6); CPK CREATINE PHOSPHOKINASE 120 U/L (26-192); CREATININE FOR GFR 0.65 MG/DL (0.55-1.30); GLOMERULAR FILTRATION RATE > 60.0 (>45); GLUCOSE, FASTING 101 MG/DL (70-100); MB/CK RELATIVE INDEX 2.16 (< OR =4); POTASSIUM SERUM 2.9 MEQ/L (3.5-5.1); SODIUM LEVEL 140 MEQ/L (136-145); TROPONIN I 0.03 NG/ML (< 0.10)
[2017-10-31] MEDS: POTASSIUM CHLORIDE 10 MEQ SR TABLET PO (20:02)
[2017-10-31 22:50] LABS: CK-MB VALUE MASS 2.2 NG/ML (<3.6); CPK CREATINE PHOSPHOKINASE 104 U/L (26-192); MB/CK RELATIVE INDEX 2.11 (< OR =4); TROPONIN I 0.03 NG/ML (< 0.10)
[2017-11-01] MEDS: traMADol 50 MG TAB PO ×2 (00:05→11:16)
[2017-11-01] MEDS: MAGNESIUM OXIDE 400 MG TAB (MAG-OX) PO ×4 (00:05→21:13)
[2017-11-01] MEDS: ACETAMINOPHEN TAB 650MG DOSE (2X325MG) PO (01:57)
[2017-11-01 05:51] LABS: HEMATOCRIT 34.5 % (36.0-47.0); HEMOGLOBIN 11.7 g/dl (12.0-15.5); MEAN CORPUSCULAR HEMOGLOBIN 32.6 pg (27.0-33.0); MEAN CORPUSCULAR HGB CONC 33.9 g/dl (32.0-36.5); MEAN CORPUSCULAR VOLUME 96.1 fl (80.0-96.0); PLATELET COUNT, AUTOMATED 120 10^3/uL (150-450); RED BLOOD COUNT 3.59 10^6/uL (4.00-5.40); RED CELL DISTRIBUTION WIDTH 14.2 % (11.5-14.5); WHITE BLOOD COUNT 5.1 10^3/uL (4.0-10.0)
[2017-11-01 06:11] LABS: ANION GAP 8 MEQ/L (8-16); BLOOD UREA NITROGEN 11 MG/DL (7-18); CARBON DIOXIDE LEVEL 35 MEQ/L (21-32); CHLORIDE LEVEL 98 MEQ/L (98-107); CHOLESTEROL LEVEL 177 MG/DL (<200); CHOLESTEROL RISK RATIO 5.709 (<5); CK-MB VALUE MASS 1.5 NG/ML (<3.6); CPK CREATINE PHOSPHOKINASE 88 U/L (26-192); CREATININE FOR GFR 0.85 MG/DL (0.55-1.30); GLOMERULAR FILTRATION RATE > 60.0 (>45); GLUCOSE, FASTING 92 MG/DL (70-100); HDL CHOLESTEROL 31 MG/DL (>40); MAGNESIUM LEVEL 1.6 MG/DL (1.8-2.4); NON-HDL-C 146 MG/DL; POTASSIUM SERUM 3.2 MEQ/L (3.5-5.1); SODIUM LEVEL 141 MEQ/L (136-145); TRIGLYCERIDES LEVEL 574 MG/DL (<150); TROPONIN I 0.03 NG/ML (< 0.10)
[2017-11-01] MEDS: KETOROLAC 30 MG/ML VIAL (J1885) IV ×3 (08:38→21:13)
[2017-11-01] MEDS ORDERED: TORSEMIDE 100 MG TAB PO (09:00)
[2017-11-01] MEDS ORDERED: LOSARTAN 50 MG TAB PO (09:00)
[2017-11-01] MEDS ORDERED: traMADol ER 100MG TABLET (ULTRAM ER) PO (09:00)
[2017-11-01] MEDS ORDERED: PROHANCE 279.3MG/ML 15ML VIAL (A9576) As Ordered (09:27)
[2017-11-01] MEDS: CLOPIDOGREL 75 MG TAB PO (10:54)
[2017-11-01] MEDS: ENOXAPARIN 40 MG/0.4 ML SYRINGE (J1650) SC (10:54)
[2017-11-01] MEDS: ASPIRIN 81 MG ENTERIC TAB PO (10:55)
[2017-11-01] MEDS: POTASSIUM CHLORIDE 10 MEQ SR TABLET PO ×2 (10:55→21:13)
[2017-11-01] MEDS: OMEGA-3 1050MG CAPSULE PO (10:56)
[2017-11-01 14:11] LABS: CK-MB VALUE MASS 1.8 NG/ML (<3.6); CPK CREATINE PHOSPHOKINASE 93 U/L (26-192); MB/CK RELATIVE INDEX 1.93 (< OR =4); TROPONIN I 0.03 NG/ML (< 0.10)
[2017-11-01] MEDS: PRAVASTATIN 20 MG TAB PO (21:14)
[2017-11-01] MEDS: TOPIRAMATE (TopAMAX) 25 MG TAB PO (21:14)
[2017-11-02] MEDS: traMADol 50 MG TAB PO ×3 (00:08→20:07)
[2017-11-02 06:04] LABS: ERYTHROCYTE SEDIMENTATION RATE 46 mm/hr (0-30)
[2017-11-02 06:06] LABS: C REACTIVE PROTEIN QUANTITATIV 0.88 MG/DL (0.00-0.30)
[2017-11-02] MEDS: MAGNESIUM OXIDE 400 MG TAB (MAG-OX) PO ×3 (08:10→20:07)
[2017-11-02] MEDS: TOPIRAMATE (TopAMAX) 25 MG TAB PO ×2 (08:10→20:11)
[2017-11-02] MEDS: OMEGA-3 1050MG CAPSULE PO (08:10)
[2017-11-02] MEDS: CLOPIDOGREL 75 MG TAB PO (08:10)
[2017-11-02] MEDS: POTASSIUM CHLORIDE 10 MEQ SR TABLET PO ×2 (08:10→20:07)
[2017-11-02] MEDS: ASPIRIN 81 MG ENTERIC TAB PO (08:11)
[2017-11-02] MEDS: ENOXAPARIN 40 MG/0.4 ML SYRINGE (J1650) SC (08:11)
[2017-11-02 11:44] LABS: BEDSIDE GLUCOSE 126 MG/DL (80-115)
[2017-11-02] MEDS: predniSONE 20 MG TAB PO (12:14)
[2017-11-02] MEDS ORDERED: ACETAMINOPHEN 500 MG TAB PO (12:15)
[2017-11-02] MEDS: KETOROLAC 30 MG/ML VIAL (J1885) IV ×2 (14:09→23:43)
[2017-11-02] MEDS ORDERED: BISACODYL 10 MG SUPP PR (15:00)
[2017-11-02] MEDS: LOSARTAN 50 MG TAB PO (16:22)
[2017-11-02] MEDS: MIRALAX *UNIT DOSE* 17GM PACKET PO (16:22)
[2017-11-02] MEDS: PRAVASTATIN 20 MG TAB PO (20:07)
[2017-11-02] MEDS: SENOKOT S TAB PO (20:07)
[2017-11-02] MEDS: traZODone 50 MG TAB PO (20:07)
[2017-11-03] MEDS: traMADol 50 MG TAB PO ×2 (05:04→17:55)
[2017-11-03 06:22] LABS: ANION GAP 7 MEQ/L (8-16); BLOOD UREA NITROGEN 12 MG/DL (7-18); CALCIUM LEVEL 8.7 MG/DL (8.8-10.2); CARBON DIOXIDE LEVEL 31 MEQ/L (21-32); CHLORIDE LEVEL 103 MEQ/L (98-107); CREATININE FOR GFR 0.76 MG/DL (0.55-1.30); GLOMERULAR FILTRATION RATE > 60.0 (>45); GLUCOSE, FASTING 146 MG/DL (70-100); POTASSIUM SERUM 4.4 MEQ/L (3.5-5.1); SODIUM LEVEL 141 MEQ/L (136-145)
[2017-11-03 06:24] LABS: BASO % 0.4 % (0.0-1.0); EOS % 0.4 % (0.0-3.0); HEMATOCRIT 31.2 % (36.0-47.0); HEMOGLOBIN 10.7 g/dl (12.0-15.5); LYMPH # 0.9 10^3/uL (1.5-4.5); LYMPH % 18.9 % (24.0-44.0); MEAN CORPUSCULAR HEMOGLOBIN 33.2 pg (27.0-33.0); MEAN CORPUSCULAR HGB CONC 34.3 g/dl (32.0-36.5); MEAN CORPUSCULAR VOLUME 96.9 fl (80.0-96.0); MONO # 0.3 10^3/uL (0.0-0.8); MONO % 5.8 % (0.0-5.0); NEUTROPHILS # 3.5 10^3/uL (1.8-7.7); NEUTROPHILS % 73.5 % (36.0-66.0); PLATELET COUNT, AUTOMATED 121 10^3/uL (150-450); RED BLOOD COUNT 3.22 10^6/uL (4.00-5.40); RED CELL DISTRIBUTION WIDTH 13.8 % (11.5-14.5); WHITE BLOOD COUNT 4.8 10^3/uL (4.0-10.0)
[2017-11-03] MEDS: MIRALAX *UNIT DOSE* 17GM PACKET PO (08:03)
[2017-11-03] MEDS: ENOXAPARIN 40 MG/0.4 ML SYRINGE (J1650) SC (08:03)
[2017-11-03] MEDS: KETOROLAC 30 MG/ML VIAL (J1885) IV (08:04)
[2017-11-03] MEDS: TORSEMIDE 100 MG TAB PO (08:04)
[2017-11-03] MEDS: OMEGA-3 1050MG CAPSULE PO (08:05)
[2017-11-03] MEDS: SENOKOT S TAB PO ×2 (08:05→20:29)
[2017-11-03] MEDS: ASPIRIN 81 MG ENTERIC TAB PO (08:06)
[2017-11-03] MEDS: LOSARTAN 50 MG TAB PO (08:06)
[2017-11-03] MEDS: MAGNESIUM OXIDE 400 MG TAB (MAG-OX) PO ×3 (08:07→20:29)
[2017-11-03] MEDS: predniSONE 20 MG TAB PO (08:07)
[2017-11-03] MEDS: POTASSIUM CHLORIDE 10 MEQ SR TABLET PO ×2 (08:07→20:29)
[2017-11-03] MEDS: TOPIRAMATE (TopAMAX) 25 MG TAB PO (08:07)
[2017-11-03] MEDS: ACETAMINOPHEN 500 MG TAB PO ×3 (10:16→21:42)
[2017-11-03] MEDS: VALPROATE SOD INJ 1,000 MG in D5W 50 ML IV (15:44)
[2017-11-03] MEDS: FEXOFENADINE 60 MG TAB PO (17:55)
[2017-11-03] MEDS: PRAVASTATIN 20 MG TAB PO (20:28)
[2017-11-03] MEDS: traZODone 100 MG TAB PO (20:29)
[2017-11-03] MEDS: DIVALPROEX 500MG *ER* TAB PO (20:30)
[2017-11-03] MEDS: OMEPRAZOLE 20 MG CAP PO (21:41)
[2017-11-04] MEDS: ACETAMINOPHEN 500 MG TAB PO ×3 (05:29→21:39)
[2017-11-04 06:59] LABS: BASO % 0.5 % (0.0-1.0); EOS % 0.3 % (0.0-3.0); HEMATOCRIT 31.9 % (36.0-47.0); HEMOGLOBIN 10.9 g/dl (12.0-15.5); IMMATURE GRANULOCYTE % 1.2 % (0-3.0); LYMPH # 1.6 10^3/uL (1.5-4.5); LYMPH % 27.3 % (24.0-44.0); MEAN CORPUSCULAR HEMOGLOBIN 32.7 pg (27.0-33.0); MEAN CORPUSCULAR HGB CONC 34.2 g/dl (32.0-36.5); MEAN CORPUSCULAR VOLUME 95.8 fl (80.0-96.0); MONO # 0.2 10^3/uL (0.0-0.8); MONO % 4.1 % (0.0-5.0); NEUTROPHILS # 3.9 10^3/uL (1.8-7.7); NEUTROPHILS % 66.6 % (36.0-66.0); PLATELET COUNT, AUTOMATED 130 10^3/uL (150-450); RED BLOOD COUNT 3.33 10^6/uL (4.00-5.40); RED CELL DISTRIBUTION WIDTH 13.9 % (11.5-14.5); WHITE BLOOD COUNT 5.9 10^3/uL (4.0-10.0)
[2017-11-04 07:15] LABS: ANION GAP 6 MEQ/L (8-16); BLOOD UREA NITROGEN 19 MG/DL (7-18); CARBON DIOXIDE LEVEL 33 MEQ/L (21-32); CHLORIDE LEVEL 103 MEQ/L (98-107); CREATININE FOR GFR 0.86 MG/DL (0.55-1.30); GLOMERULAR FILTRATION RATE > 60.0 (>45); GLUCOSE, FASTING 124 MG/DL (70-100); POTASSIUM SERUM 4.5 MEQ/L (3.5-5.1); SODIUM LEVEL 142 MEQ/L (136-145)
[2017-11-04] MEDS: ENOXAPARIN 40 MG/0.4 ML SYRINGE (J1650) SC (09:02)
[2017-11-04] MEDS: MIRALAX *UNIT DOSE* 17GM PACKET PO (09:02)
[2017-11-04] MEDS: MAGNESIUM OXIDE 400 MG TAB (MAG-OX) PO ×3 (09:03→21:40)
[2017-11-04] MEDS: LOSARTAN 50 MG TAB PO (09:03)
[2017-11-04] MEDS: DIVALPROEX 500MG *ER* TAB PO ×2 (09:03→21:40)
[2017-11-04] MEDS: OMEPRAZOLE 20 MG CAP PO ×2 (09:04→21:40)
[2017-11-04] MEDS: POTASSIUM CHLORIDE 10 MEQ SR TABLET PO ×2 (09:04→21:39)
[2017-11-04] MEDS: predniSONE 10 MG TAB PO (09:04)
[2017-11-04] MEDS: ASPIRIN 81 MG ENTERIC TAB PO (09:05)
[2017-11-04] MEDS: OMEGA-3 1050MG CAPSULE PO (09:05)
[2017-11-04] MEDS: SENOKOT S TAB PO ×2 (09:05→21:40)
[2017-11-04] MEDS: TORSEMIDE 100 MG TAB PO (09:05)
[2017-11-04] MEDS: traMADol 50 MG TAB PO ×2 (09:14→17:47)
[2017-11-04] MEDS ORDERED: GLUCAGON FOR INJ 1 MG VIAL (J1610) SC (15:30)
[2017-11-04] MEDS ORDERED: GLUCOSE 4 GM CHEW TABLET PO (15:30)
[2017-11-04] MEDS ORDERED: DEXTROSE 50% 50 ML SYRINGE IV (15:30)
[2017-11-04 17:43] LABS: BEDSIDE GLUCOSE 206 MG/DL (80-115)
[2017-11-04] MEDS: HumaLOG INSULIN (NovoLOG) PER UNIT SC ×2 (17:47→21:00)
[2017-11-04 20:16] LABS: BEDSIDE GLUCOSE 198 MG/DL (80-115)
[2017-11-04] MEDS: PRAVASTATIN 20 MG TAB PO (21:39)
[2017-11-04] MEDS: traZODone 100 MG TAB PO (21:40)
[2017-11-05] MEDS: ACETAMINOPHEN 500 MG TAB PO ×3 (05:09→20:52)
[2017-11-05 06:28] LABS: BASO % 0.5 % (0.0-1.0); EOS % 0.3 % (0.0-3.0); HEMOGLOBIN 11.1 g/dl (12.0-15.5); IMMATURE GRANULOCYTE % 2.5 % (0-3.0); LYMPH # 1.2 10^3/uL (1.5-4.5); LYMPH % 20.4 % (24.0-44.0); MEAN CORPUSCULAR HEMOGLOBIN 32.9 pg (27.0-33.0); MEAN CORPUSCULAR HGB CONC 33.6 g/dl (32.0-36.5); MEAN CORPUSCULAR VOLUME 97.9 fl (80.0-96.0); MONO # 0.2 10^3/uL (0.0-0.8); NEUTROPHILS # 4.4 10^3/uL (1.8-7.7); NEUTROPHILS % 73.3 % (36.0-66.0); PLATELET COUNT, AUTOMATED 139 10^3/uL (150-450); RED BLOOD COUNT 3.37 10^6/uL (4.00-5.40)
[2017-11-05 06:57] LABS: ANION GAP 10 MEQ/L (8-16); BLOOD UREA NITROGEN 20 MG/DL (7-18); CALCIUM LEVEL 8.7 MG/DL (8.8-10.2); CARBON DIOXIDE LEVEL 34 MEQ/L (21-32); CHLORIDE LEVEL 102 MEQ/L (98-107); CREATININE FOR GFR 0.95 MG/DL (0.55-1.30); GLOMERULAR FILTRATION RATE > 60.0 (>45); GLUCOSE, FASTING 176 MG/DL (70-100); POTASSIUM SERUM 4.6 MEQ/L (3.5-5.1); SODIUM LEVEL 146 MEQ/L (136-145)
[2017-11-05] MEDS: KETOROLAC 30 MG/ML VIAL (J1885) IV (07:42)
[2017-11-05] MEDS: HumaLOG INSULIN (NovoLOG) PER UNIT SC ×4 (07:42→20:53)
[2017-11-05] MEDS: traMADol 50 MG TAB PO ×2 (07:43→16:07)
[2017-11-05] MEDS: MIRALAX *UNIT DOSE* 17GM PACKET PO (08:17)
[2017-11-05] MEDS: POTASSIUM CHLORIDE 10 MEQ SR TABLET PO ×2 (08:18→20:51)
[2017-11-05] MEDS: ENOXAPARIN 40 MG/0.4 ML SYRINGE (J1650) SC (08:18)
[2017-11-05] MEDS: TORSEMIDE 100 MG TAB PO (08:18)
[2017-11-05] MEDS: predniSONE 10 MG TAB PO (08:18)
[2017-11-05] MEDS: OMEPRAZOLE 20 MG CAP PO ×2 (08:18→20:51)
[2017-11-05] MEDS: OMEGA-3 1050MG CAPSULE PO (08:19)
[2017-11-05] MEDS: LOSARTAN 50 MG TAB PO (08:19)
[2017-11-05] MEDS: ASPIRIN 81 MG ENTERIC TAB PO (08:19)
[2017-11-05] MEDS: SENOKOT S TAB PO ×2 (08:19→20:53)
[2017-11-05] MEDS: MAGNESIUM OXIDE 400 MG TAB (MAG-OX) PO ×3 (08:19→20:53)
[2017-11-05] MEDS: DIVALPROEX 500MG *ER* TAB PO ×2 (08:20→20:52)
[2017-11-05 11:29] LABS: BEDSIDE GLUCOSE 170 MG/DL (80-115)
[2017-11-05 16:22] LABS: BEDSIDE GLUCOSE 219 MG/DL (80-115)
[2017-11-05] MEDS: LIDOCAINE 5% (LIDODERM) PATCH TD (16:56)
[2017-11-05 20:03] LABS: BEDSIDE GLUCOSE 245 MG/DL (80-115)
[2017-11-05] MEDS: traZODone 100 MG TAB PO (20:51)
[2017-11-05] MEDS: PRAVASTATIN 20 MG TAB PO (20:51)
[2017-11-05] MEDS: **NOTE PATIENT COMMENT** MISC XX (20:54)
[2017-11-06] MEDS: ACETAMINOPHEN 500 MG TAB PO ×4 (05:12→21:16)
[2017-11-06] MEDS: traMADol 50 MG TAB PO ×2 (05:13→14:47)
[2017-11-06 07:01] LABS: BASO % 0.3 % (0.0-1.0); EOS % 0.3 % (0.0-3.0); HEMATOCRIT 32.1 % (36.0-47.0); HEMOGLOBIN 10.9 g/dl (12.0-15.5); IMMATURE GRANULOCYTE % 3.4 % (0-3.0); LYMPH # 1.6 10^3/uL (1.5-4.5); LYMPH % 25.3 % (24.0-44.0); MEAN CORPUSCULAR HEMOGLOBIN 32.9 pg (27.0-33.0); MONO # 0.3 10^3/uL (0.0-0.8); MONO % 4.3 % (0.0-5.0); NEUTROPHILS # 4.1 10^3/uL (1.8-7.7); NEUTROPHILS % 66.4 % (36.0-66.0); PLATELET COUNT, AUTOMATED 146 10^3/uL (150-450); RED BLOOD COUNT 3.31 10^6/uL (4.00-5.40); WHITE BLOOD COUNT 6.2 10^3/uL (4.0-10.0)
[2017-11-06 07:26] LABS: ANION GAP 7 MEQ/L (8-16); BLOOD UREA NITROGEN 29 MG/DL (7-18); CALCIUM LEVEL 8.5 MG/DL (8.8-10.2); CARBON DIOXIDE LEVEL 35 MEQ/L (21-32); CHLORIDE LEVEL 101 MEQ/L (98-107); GLOMERULAR FILTRATION RATE 59.8 (>45); GLUCOSE, FASTING 116 MG/DL (70-100); POTASSIUM SERUM 4.6 MEQ/L (3.5-5.1); SODIUM LEVEL 143 MEQ/L (136-145)
[2017-11-06] MEDS: HumaLOG INSULIN (NovoLOG) PER UNIT SC ×4 (09:45→21:00)
[2017-11-06] MEDS: KETOROLAC 30 MG/ML VIAL (J1885) IV (10:14)
[2017-11-06] MEDS: ENOXAPARIN 40 MG/0.4 ML SYRINGE (J1650) SC (10:28)
[2017-11-06] MEDS: MIRALAX *UNIT DOSE* 17GM PACKET PO (10:29)
[2017-11-06] MEDS: ASPIRIN 81 MG ENTERIC TAB PO (10:29)
[2017-11-06] MEDS: TORSEMIDE 100 MG TAB PO (10:29)
[2017-11-06] MEDS: SENOKOT S TAB PO ×2 (10:30→21:17)
[2017-11-06] MEDS: OMEGA-3 1050MG CAPSULE PO (10:30)
[2017-11-06] MEDS: POTASSIUM CHLORIDE 10 MEQ SR TABLET PO ×2 (10:30→21:17)
[2017-11-06] MEDS: MAGNESIUM OXIDE 400 MG TAB (MAG-OX) PO ×3 (10:30→21:17)
[2017-11-06] MEDS: DIVALPROEX 500MG *ER* TAB PO ×2 (10:31→21:17)
[2017-11-06] MEDS: OMEPRAZOLE 20 MG CAP PO ×2 (10:31→21:16)
[2017-11-06] MEDS: LOSARTAN 50 MG TAB PO (10:32)
[2017-11-06 11:09] LABS: BEDSIDE GLUCOSE 199 MG/DL (80-115)
[2017-11-06 16:28] LABS: BEDSIDE GLUCOSE 130 MG/DL (80-115)
[2017-11-06 20:28] LABS: BEDSIDE GLUCOSE 189 MG/DL (80-115)
[2017-11-06] MEDS: PRAVASTATIN 20 MG TAB PO (21:16)
[2017-11-06] MEDS: AMITRIPTYLINE 25 MG TAB PO (21:17)
[2017-11-07] MEDS: ACETAMINOPHEN 500 MG TAB PO ×3 (06:00→21:39)
[2017-11-07 06:23] LABS: BASO % 0.9 % (0.0-1.0); EOS # 0.1 10^3/uL (0.0-0.50); EOS % 1.3 % (0.0-3.0); HEMATOCRIT 33.7 % (36.0-47.0); HEMOGLOBIN 10.9 g/dl (12.0-15.5); IMMATURE GRANULOCYTE % 2.7 % (0-3.0); LYMPH # 1.9 10^3/uL (1.5-4.5); LYMPH % 43.1 % (24.0-44.0); MEAN CORPUSCULAR HEMOGLOBIN 32.6 pg (27.0-33.0); MEAN CORPUSCULAR HGB CONC 32.3 g/dl (32.0-36.5); MEAN CORPUSCULAR VOLUME 100.9 fl (80.0-96.0); MONO # 0.2 10^3/uL (0.0-0.8); MONO % 4.7 % (0.0-5.0); NEUTROPHILS # 2.1 10^3/uL (1.8-7.7); NEUTROPHILS % 47.3 % (36.0-66.0); PLATELET COUNT, AUTOMATED 124 10^3/uL (150-450); RED BLOOD COUNT 3.34 10^6/uL (4.00-5.40); RED CELL DISTRIBUTION WIDTH 14.5 % (11.5-14.5); WHITE BLOOD COUNT 4.5 10^3/uL (4.0-10.0)
[2017-11-07 06:48] LABS: ANION GAP 5 MEQ/L (8-16); BLOOD UREA NITROGEN 27 MG/DL (7-18); CALCIUM LEVEL 8.4 MG/DL (8.8-10.2); CARBON DIOXIDE LEVEL 37 MEQ/L (21-32); CHLORIDE LEVEL 101 MEQ/L (98-107); CREATININE FOR GFR 0.95 MG/DL (0.55-1.30); GLOMERULAR FILTRATION RATE > 60.0 (>45); GLUCOSE, FASTING 95 MG/DL (70-100); POTASSIUM SERUM 4.6 MEQ/L (3.5-5.1); SODIUM LEVEL 143 MEQ/L (136-145)
[2017-11-07] MEDS: HumaLOG INSULIN (NovoLOG) PER UNIT SC ×4 (07:30→21:00)
[2017-11-07] MEDS: MIRALAX *UNIT DOSE* 17GM PACKET PO (09:00)
[2017-11-07] MEDS: TORSEMIDE 100 MG TAB PO (09:32)
[2017-11-07] MEDS: LOSARTAN 50 MG TAB PO (09:34)
[2017-11-07] MEDS: POTASSIUM CHLORIDE 10 MEQ SR TABLET PO ×2 (09:35→21:39)
[2017-11-07] MEDS: MAGNESIUM OXIDE 400 MG TAB (MAG-OX) PO ×3 (09:35→21:40)
[2017-11-07] MEDS: DIVALPROEX 500MG *ER* TAB PO ×2 (09:35→21:40)
[2017-11-07] MEDS: ASPIRIN 81 MG ENTERIC TAB PO (09:36)
[2017-11-07] MEDS: OMEPRAZOLE 20 MG CAP PO ×2 (09:36→21:40)
[2017-11-07] MEDS: OMEGA-3 1050MG CAPSULE PO (09:36)
[2017-11-07] MEDS: SENOKOT S TAB PO ×2 (09:36→21:40)
[2017-11-07] MEDS: ENOXAPARIN 40 MG/0.4 ML SYRINGE (J1650) SC (09:37)
[2017-11-07 11:58] LABS: BEDSIDE GLUCOSE 96 MG/DL (80-115)
[2017-11-07] MEDS: ONDANSETRON 4MG/2ML VIAL (J2405) IV ×2 (14:34→21:38)
[2017-11-07 17:51] LABS: BEDSIDE GLUCOSE 90 MG/DL (80-115)
[2017-11-07 19:56] LABS: BEDSIDE GLUCOSE 133 MG/DL (80-115)
[2017-11-07] MEDS: AMITRIPTYLINE 25 MG TAB PO (21:39)
[2017-11-07] MEDS: PREGABALIN 75 MG CAP(LYRICA) PO (21:39)
[2017-11-07] MEDS: PRAVASTATIN 20 MG TAB PO (21:40)
[2017-11-08] MEDS: ACETAMINOPHEN 500 MG TAB PO ×3 (05:52→21:37)
[2017-11-08 06:30] LABS: BASO % 0.5 % (0.0-1.0); EOS # 0.1 10^3/uL (0.0-0.50); EOS % 1.6 % (0.0-3.0); HEMATOCRIT 35.1 % (36.0-47.0); HEMOGLOBIN 11.3 g/dl (12.0-15.5); IMMATURE GRANULOCYTE % 2.3 % (0-3.0); LYMPH # 1.3 10^3/uL (1.5-4.5); LYMPH % 30.1 % (24.0-44.0); MEAN CORPUSCULAR HEMOGLOBIN 32.4 pg (27.0-33.0); MEAN CORPUSCULAR HGB CONC 32.2 g/dl (32.0-36.5); MEAN CORPUSCULAR VOLUME 100.6 fl (80.0-96.0); MONO # 0.3 10^3/uL (0.0-0.8); MONO % 5.9 % (0.0-5.0); NEUTROPHILS # 2.6 10^3/uL (1.8-7.7); NEUTROPHILS % 59.6 % (36.0-66.0); PLATELET COUNT, AUTOMATED 151 10^3/uL (150-450); RED BLOOD COUNT 3.49 10^6/uL (4.00-5.40); RED CELL DISTRIBUTION WIDTH 14.4 % (11.5-14.5); WHITE BLOOD COUNT 4.4 10^3/uL (4.0-10.0)
[2017-11-08 06:43] LABS: ANION GAP 6 MEQ/L (8-16); BLOOD UREA NITROGEN 26 MG/DL (7-18); CALCIUM LEVEL 8.4 MG/DL (8.8-10.2); CARBON DIOXIDE LEVEL 37 MEQ/L (21-32); CHLORIDE LEVEL 102 MEQ/L (98-107); CREATININE FOR GFR 1.02 MG/DL (0.55-1.30); GLOMERULAR FILTRATION RATE 58.5 (>45); GLUCOSE, FASTING 98 MG/DL (70-100); POTASSIUM SERUM 4.6 MEQ/L (3.5-5.1); SODIUM LEVEL 145 MEQ/L (136-145)
[2017-11-08] MEDS: HumaLOG INSULIN (NovoLOG) PER UNIT SC ×4 (07:30→21:00)
[2017-11-08] MEDS: DIVALPROEX 500MG *ER* TAB PO ×2 (08:56→21:36)
[2017-11-08] MEDS: TORSEMIDE 100 MG TAB PO (08:56)
[2017-11-08] MEDS: ASPIRIN 81 MG ENTERIC TAB PO (08:57)
[2017-11-08] MEDS: LOSARTAN 50 MG TAB PO (08:58)
[2017-11-08] MEDS: ENOXAPARIN 40 MG/0.4 ML SYRINGE (J1650) SC (08:59)
[2017-11-08] MEDS: PREGABALIN 75 MG CAP(LYRICA) PO ×2 (09:00→21:36)
[2017-11-08] MEDS: MIRALAX *UNIT DOSE* 17GM PACKET PO (09:00)
[2017-11-08] MEDS: SENOKOT S TAB PO ×2 (09:00→21:36)
[2017-11-08] MEDS: MAGNESIUM OXIDE 400 MG TAB (MAG-OX) PO ×3 (09:00→21:35)
[2017-11-08] MEDS: OMEPRAZOLE 20 MG CAP PO ×2 (09:00→21:36)
[2017-11-08] MEDS: POTASSIUM CHLORIDE 10 MEQ SR TABLET PO ×2 (09:01→21:36)
[2017-11-08] MEDS: OMEGA-3 1050MG CAPSULE PO (09:01)
[2017-11-08] MEDS: ONDANSETRON 4MG/2ML VIAL (J2405) IV (11:33)
[2017-11-08 11:38] LABS: BEDSIDE GLUCOSE 97 MG/DL (80-115)
[2017-11-08] MEDS ORDERED: ONDANSETRON 4 MG TAB (S0181) PO (17:30)
[2017-11-08 17:59] LABS: BEDSIDE GLUCOSE 84 MG/DL (80-115)
[2017-11-08 20:16] LABS: BEDSIDE GLUCOSE 131 MG/DL (80-115)
[2017-11-08] MEDS: AMITRIPTYLINE 25 MG TAB PO (21:36)
[2017-11-08] MEDS: PRAVASTATIN 20 MG TAB PO (21:36)
[2017-11-09] MEDS: ACETAMINOPHEN 500 MG TAB PO ×3 (05:22→21:30)
[2017-11-09 06:34] LABS: BASO % 0.9 % (0.0-1.0); EOS # 0.1 10^3/uL (0.0-0.50); EOS % 1.6 % (0.0-3.0); HEMATOCRIT 36.8 % (36.0-47.0); HEMOGLOBIN 11.6 g/dl (12.0-15.5); IMMATURE GRANULOCYTE % 2.6 % (0-3.0); LYMPH # 1.4 10^3/uL (1.5-4.5); LYMPH % 33.1 % (24.0-44.0); MEAN CORPUSCULAR HEMOGLOBIN 32.3 pg (27.0-33.0); MEAN CORPUSCULAR HGB CONC 31.5 g/dl (32.0-36.5); MEAN CORPUSCULAR VOLUME 102.5 fl (80.0-96.0); MONO # 0.3 10^3/uL (0.0-0.8); MONO % 6.8 % (0.0-5.0); NEUTROPHILS # 2.4 10^3/uL (1.8-7.7); PLATELET COUNT, AUTOMATED 128 10^3/uL (150-450); RED BLOOD COUNT 3.59 10^6/uL (4.00-5.40); RED CELL DISTRIBUTION WIDTH 14.5 % (11.5-14.5); WHITE BLOOD COUNT 4.3 10^3/uL (4.0-10.0)
[2017-11-09 06:48] LABS: ANION GAP 6 MEQ/L (8-16); BLOOD UREA NITROGEN 33 MG/DL (7-18); CALCIUM LEVEL 8.4 MG/DL (8.8-10.2); CARBON DIOXIDE LEVEL 35 MEQ/L (21-32); CHLORIDE LEVEL 105 MEQ/L (98-107); CREATININE FOR GFR 1.29 MG/DL (0.55-1.30); GLOMERULAR FILTRATION RATE 44.6 (>45); GLUCOSE, FASTING 110 MG/DL (70-100); POTASSIUM SERUM 4.5 MEQ/L (3.5-5.1); SODIUM LEVEL 146 MEQ/L (136-145)
[2017-11-09] MEDS: HumaLOG INSULIN (NovoLOG) PER UNIT SC ×4 (09:25→20:25)
[2017-11-09] MEDS: MIRALAX *UNIT DOSE* 17GM PACKET PO (10:06)
[2017-11-09] MEDS: OMEGA-3 1050MG CAPSULE PO (10:07)
[2017-11-09] MEDS: MAGNESIUM OXIDE 400 MG TAB (MAG-OX) PO ×3 (10:07→20:24)
[2017-11-09] MEDS: OMEPRAZOLE 20 MG CAP PO ×2 (10:07→20:24)
[2017-11-09] MEDS: PREGABALIN 75 MG CAP(LYRICA) PO ×2 (10:07→20:25)
[2017-11-09] MEDS: TORSEMIDE 100 MG TAB PO (10:07)
[2017-11-09] MEDS: ASPIRIN 81 MG ENTERIC TAB PO (10:07)
[2017-11-09] MEDS: DIVALPROEX 500MG *ER* TAB PO (10:07)
[2017-11-09] MEDS: SENOKOT S TAB PO ×2 (10:08→20:25)
[2017-11-09] MEDS: LOSARTAN 50 MG TAB PO (10:08)
[2017-11-09] MEDS: POTASSIUM CHLORIDE 10 MEQ SR TABLET PO ×2 (10:08→20:24)
[2017-11-09] MEDS: ENOXAPARIN 40 MG/0.4 ML SYRINGE (J1650) SC (10:09)
[2017-11-09 13:10] LABS: BEDSIDE GLUCOSE 139 MG/DL (80-115)
[2017-11-09 16:40] LABS: BEDSIDE GLUCOSE 137 MG/DL (80-115)
[2017-11-09 20:23] LABS: BEDSIDE GLUCOSE 161 MG/DL (80-115)
[2017-11-09] MEDS: PRAVASTATIN 20 MG TAB PO (20:24)
[2017-11-09] MEDS: DIVALPROEX 250MG *ER* TAB PO (20:24)
[2017-11-10] MEDS: ACETAMINOPHEN 500 MG TAB PO (05:53)
[2017-11-10 06:02] LABS: BEDSIDE GLUCOSE 103 MG/DL (80-115)
[2017-11-10 08:02] LABS: HEMATOCRIT 37.8 % (36.0-47.0); HEMOGLOBIN 12.2 g/dl (12.0-15.5); MEAN CORPUSCULAR HGB CONC 32.3 g/dl (32.0-36.5); MEAN CORPUSCULAR VOLUME 102.2 fl (80.0-96.0); PLATELET COUNT, AUTOMATED 109 10^3/uL (150-450); RED CELL DISTRIBUTION WIDTH 14.5 % (11.5-14.5); WHITE BLOOD COUNT 3.8 10^3/uL (4.0-10.0)
[2017-11-10 08:34] LABS: ANION GAP 7 MEQ/L (8-16); BLOOD UREA NITROGEN 26 MG/DL (7-18); CALCIUM LEVEL 8.7 MG/DL (8.8-10.2); CARBON DIOXIDE LEVEL 36 MEQ/L (21-32); CHLORIDE LEVEL 102 MEQ/L (98-107); CREATININE FOR GFR 0.94 MG/DL (0.55-1.30); GLOMERULAR FILTRATION RATE > 60.0 (>45); GLUCOSE, FASTING 103 MG/DL (70-100); MAGNESIUM LEVEL 2.5 MG/DL (1.8-2.4); POTASSIUM SERUM 4.1 MEQ/L (3.5-5.1); SODIUM LEVEL 145 MEQ/L (136-145)
[2017-11-10] MEDS: ENOXAPARIN 40 MG/0.4 ML SYRINGE (J1650) SC (08:54)
[2017-11-10] MEDS: HumaLOG INSULIN (NovoLOG) PER UNIT SC ×2 (08:54→12:00)
[2017-11-10] MEDS: MIRALAX *UNIT DOSE* 17GM PACKET PO (08:54)
[2017-11-10] MEDS: DIVALPROEX 250MG *ER* TAB PO (08:55)
[2017-11-10] MEDS: SENOKOT S TAB PO (08:55)
[2017-11-10] MEDS: OMEPRAZOLE 20 MG CAP PO (08:55)
[2017-11-10] MEDS: TORSEMIDE 100 MG TAB PO (08:56)
[2017-11-10] MEDS: MAGNESIUM OXIDE 400 MG TAB (MAG-OX) PO ×2 (08:56→09:00)
[2017-11-10] MEDS: OMEGA-3 1050MG CAPSULE PO (08:56)
[2017-11-10] MEDS: PREGABALIN 75 MG CAP(LYRICA) PO (08:56)
[2017-11-10] MEDS: ASPIRIN 81 MG ENTERIC TAB PO (08:57)
[2017-11-10] MEDS: POTASSIUM CHLORIDE 10 MEQ SR TABLET PO (08:57)
[2017-11-10] MEDS: LOSARTAN 50 MG TAB PO (08:59)
== END 2017-11-10 13:08 | disposition home or self-care (01) | DRG 103 ==
LOC: M MS5PR 11-03 13:20 → M ED 16:14 → M ED INP 21:07 → M PCU 22:30
DX: G43.111 Migraine with aura, intractable, with status migrainosus (principal); I10 Essential (primary) hypertension; M79.7 Fibromyalgia; E11.9 Type 2 diabetes mellitus without complications; E78.5 Hyperlipidemia, unspecified; G47.33 Obstructive sleep apnea (adult) (pediatric); J44.9 Chronic obstructive pulmonary disease, unspecified; M06.9 Rheumatoid arthritis, unspecified; G43.709 Chronic migraine without aura, not intractable, without status migrainosus; E87.6 Hypokalemia; E66.9 Obesity, unspecified; E83.42 Hypomagnesemia; R27.0 Ataxia, unspecified; M54.2 Cervicalgia; M10.9 Gout, unspecified; H53.47 Heteronymous bilateral field defects; Z79.899 Other long term (current) drug therapy; Z88.0 Allergy status to penicillin; Z88.5 Allergy status to narcotic agent; Z88.6 Allergy status to analgesic agent; Z88.1 Allergy status to other antibiotic agents; Z88.8 Allergy status to other drugs, medicaments and biological substances; Z91.19 Patient's noncompliance with other medical treatment and regimen; Z87.442 Personal history of urinary calculi; Z68.37 Body mass index [BMI] 37.0-37.9, adult

== ENCOUNTER 2017-12-28 09:52 | Outpatient (RCR) | payer MEDICARE, MEDICAID | END 2018-01-10 | LOC: M PT 09:52 | DX: G51.0 Bell's palsy (principal) | CPT/HCPCS: 97110 ==

== ENCOUNTER 2018-01-11 09:39 | Outpatient (RCR) | payer MEDICARE, MEDICAID | END 2018-02-09 | LOC: M PT 01-16 13:42 | DX: G51.0 Bell's palsy (principal) | CPT/HCPCS: 97035 ==

== ENCOUNTER 2018-02-11 17:56 | Emergency (ER) | payer MEDICARE, MEDICAID ==
[2018-02-11 18:18] LABS: BASO % 0.4 % (0.0-1.0); EOS % 0.4 % (0.0-3.0); HEMOGLOBIN 13.5 g/dl (12.0-15.5); IMMATURE GRANULOCYTE % 0.7 % (0-3.0); LYMPH # 1.9 10^3/uL (1.5-4.5); LYMPH % 22.9 % (24.0-44.0); MEAN CORPUSCULAR HEMOGLOBIN 32.5 pg (27.0-33.0); MEAN CORPUSCULAR HGB CONC 34.6 g/dl (32.0-36.5); MEAN CORPUSCULAR VOLUME 93.8 fl (80.0-96.0); MONO # 0.4 10^3/uL (0.0-0.8); MONO % 4.6 % (0.0-5.0); NEUTROPHILS # 5.8 10^3/uL (1.8-7.7); PLATELET COUNT, AUTOMATED 192 10^3/uL (150-450); RED BLOOD COUNT 4.16 10^6/uL (4.00-5.40); RED CELL DISTRIBUTION WIDTH 13.9 % (11.5-14.5); WHITE BLOOD COUNT 8.1 10^3/uL (4.0-10.0)
[2018-02-11 18:39] LABS: ALBUMIN 3.2 GM/DL (3.2-5.2); ALBUMIN/GLOBULIN RATIO 0.56 (1.00-1.93); ALKALINE PHOSPHATASE 92 U/L (45-117); ALT/SGPT 56 U/L (12-78); ANION GAP 10 MEQ/L (8-16); AST/SGOT 21 U/L (7-37); BILIRUBIN,DIRECT < 0.1 MG/DL (0.0-0.2); BILIRUBIN,TOTAL 0.4 MG/DL (0.2-1.0); BLOOD UREA NITROGEN 14 MG/DL (7-18); CALCIUM LEVEL 8.6 MG/DL (8.8-10.2); CARBON DIOXIDE LEVEL 32 MEQ/L (21-32); CHLORIDE LEVEL 97 MEQ/L (98-107); CPK CREATINE PHOSPHOKINASE 66 U/L (26-192); CREATININE FOR GFR 0.74 MG/DL (0.55-1.30); GLOMERULAR FILTRATION RATE > 60.0 (>45); GLUCOSE, FASTING 156 MG/DL (70-100); LIPASE 96 U/L (73-393); MB/CK RELATIVE INDEX 1.97 (< OR =4); POTASSIUM SERUM 3.3 MEQ/L (3.5-5.1); SODIUM LEVEL 139 MEQ/L (136-145); TOTAL PROTEIN 8.9 GM/DL (6.4-8.2); TROPONIN I 0.03 NG/ML (< 0.10)
[2018-02-11] MEDS ORDERED: ISOVUE-370 76% 100ML VIAL (Q9967) As Ordered (18:40)
[2018-02-11] MEDS: GI COCKTAIL 50ML BTL(HYOSCYAMINE/MAALOX/LIDOCAINE VISCOUS)(1:3:1) PO (18:43)
[2018-02-11] MEDS: MORPHINE 2 MG/ML 1ML SYRINGE (J2270) IV (18:43)
[2018-02-11 19:04] LABS: D-DIMER QUANT < 270 ng/ml (<500)
[2018-02-11] MEDS: MORPHINE 4 MG/ML 1ML VIAL/SYRINGE (J2270) IV (19:20)
[2018-02-11] MEDS: POTASSIUM CHLORIDE 10 MEQ SR TABLET PO (20:30)
[2018-02-11] MEDS: METOCLOPRAMIDE INJ 10MG/2ML VIAL (J2765) IV (20:30)
[2018-02-11] MEDS: KETOROLAC 30 MG/ML VIAL (J1885) IV (21:00)
[2018-02-11 22:32] LABS: CK-MB VALUE MASS < 1.0 NG/ML (<3.6); CPK CREATINE PHOSPHOKINASE 54 U/L (26-192); MB/CK RELATIVE INDEX 1.85 (< OR =4); TROPONIN I 0.03 NG/ML (< 0.10)
[2018-02-11] MEDS: CYCLOBENZAPRINE 10 MG TAB PO (22:47)
[2018-02-11] MEDS: traMADol 50 MG TAB PO (22:47)
== END 2018-02-11 23:41 | disposition home or self-care (01) ==
LOC: M ED 17:56
DX: R07.89 Other chest pain (principal); R07.81 Pleurodynia; M79.18 Myalgia, other site; I10 Essential (primary) hypertension; K21.9 Gastro-esophageal reflux disease without esophagitis; Z86.73 Personal history of transient ischemic attack (TIA), and cerebral infarction without residual deficits; J44.9 Chronic obstructive pulmonary disease, unspecified; E78.5 Hyperlipidemia, unspecified; G47.33 Obstructive sleep apnea (adult) (pediatric); M79.7 Fibromyalgia; Z88.8 Allergy status to other drugs, medicaments and biological substances; Z88.5 Allergy status to narcotic agent; Z88.1 Allergy status to other antibiotic agents; Z88.0 Allergy status to penicillin; Z79.899 Other long term (current) drug therapy; Z79.82 Long term (current) use of aspirin
CPT/HCPCS: J2270

== ENCOUNTER → 2018-02-21 | Outpatient (REF) | payer MEDICARE, MEDICAID ==
[~2018-02-21] MED LIST changes: -ACET1TAB17 PO; +ACET1TAB55 PO; +ALEV220T26 PO; +ALLE180T33 PO; +AMIT10TA PO; +AMIT25TA PO; +ASPI1TAB PO; +ASPI81CH PO; +COLA100C5 PO; +COLC1TAB14 PO; +CYCL5TAB PO; +DEPA250T2 PO; +DEPA500T2 PO; +ESOM0.1C PO; +FEXO180T58 PO; -GEMF600T PO; +GEMF600T5 PO; +KLOR10TA76 PO; +LOSA-4 PO; +MAG400TA PO; +MAGN400T2 PO; +METH2.5T48 PO; -METH2.5TA PO; -POTA10CA PO; +PRAV1TAB39 PO; -ROSU20TA PO; +ROSU20TA4 PO; +ULTR50TA8 PO; +ZYRT10CA5 PO; -ZYRT10TA2 PO
[2018-02-21 19:03] LABS: HEMOGLOBIN A1c 6.3 %
[2018-02-21 19:12] LABS: ALBUMIN 3.8 GM/DL (3.2-5.2); BILIRUBIN,TOTAL 0.7 MG/DL (0.2-1.0); CALCIUM LEVEL 8.6 MG/DL (8.8-10.2); CHOLESTEROL RISK RATIO 6.238 (<5); CREATININE FOR GFR 1.04 MG/DL (0.55-1.30); FREE T4 1.09 NG/DL (0.76-1.46); MAGNESIUM LEVEL 1.5 MG/DL (1.8-2.4); POTASSIUM SERUM 3.5 MEQ/L (3.5-5.1); THYROID STIMULATING HORMONE 1.25 uIU/ML (0.358-3.740); TOTAL 25(OH) VITAMIN D 31.8 NG/ML (30.0-100.0); TOTAL PROTEIN 8.9 GM/DL (6.4-8.2)
== END ==
LOC: M SFHCPLAZ 15:07
PROVIDERS: ATTEND Nurse Practitioner Family
DX: I10 Essential (primary) hypertension (principal); E78.2 Mixed hyperlipidemia; E11.9 Type 2 diabetes mellitus without complications; E55.9 Vitamin D deficiency, unspecified
CPT/HCPCS: 36415; 80053; 80061; 82306; 83036; 83735; 84439; 84443; 90682; G0008; G0463

== ENCOUNTER → 2018-03-16 | Outpatient (REF) | payer MEDICARE, MEDICAID ==
[2018-03-16 17:40] LABS: CALCIUM LEVEL 8.3 MG/DL (8.8-10.2); CREATININE FOR GFR 1.32 MG/DL (0.55-1.30); GLOMERULAR FILTRATION RATE 43.3 (>45); MAGNESIUM LEVEL 1.7 MG/DL (1.8-2.4); POTASSIUM SERUM 3.5 MEQ/L (3.5-5.1)
== END ==
LOC: M SFHCPLAZ 13:29
PROVIDERS: ATTEND Family Medicine
DX: E87.6 Hypokalemia (principal); E83.42 Hypomagnesemia

== ENCOUNTER → 2018-03-19 | Outpatient (REF) | payer MEDICARE, MEDICAID ==
[~2018-03-19] MED LIST changes: -LASI20TA PO; +LASI20TA3 PO; -LOSA-4 PO; +LOSA100T50 PO
[2018-03-19 16:27] LABS: BLOOD UREA NITROGEN 19 MG/DL (7-18); CALCIUM LEVEL 7.8 MG/DL (8.8-10.2); CARBON DIOXIDE LEVEL 31 MEQ/L (21-32); CHLORIDE LEVEL 100 MEQ/L (98-107); CREATININE FOR GFR 0.78 MG/DL (0.55-1.30); GLOMERULAR FILTRATION RATE > 60.0 (>45); GLUCOSE, FASTING 99 MG/DL (70-100); POTASSIUM SERUM 3.1 MEQ/L (3.5-5.1); SODIUM LEVEL 140 MEQ/L (136-145)
== END ==
LOC: M SFHCPLAZ 13:53
PROVIDERS: ATTEND Family Medicine
DX: N17.9 Acute kidney failure, unspecified (principal)

== ENCOUNTER → 2018-06-18 | Outpatient (REF) | payer MEDICARE, MEDICAID ==
[~2018-06-18] MED LIST changes: -/AMLO25TA PO; -/LABE20TA OR; -ASPI1TAB PO; -ASPI81CH PO; +ASPI81CH49 PO; +ASPI81TA26 PO; +CRES10TA PO; -CRES10TA32 PO; +HYDR-3715 PO; +LABE1TAB11 OR; -NORCOTAB PO; +NORV2TAB PO
[2018-06-18 17:07] LABS: BLOOD UREA NITROGEN 23 MG/DL (7-18); CALCIUM LEVEL 8.3 MG/DL (8.8-10.2); CARBON DIOXIDE LEVEL 35 MEQ/L (21-32); CHLORIDE LEVEL 98 MEQ/L (98-107); CREATININE FOR GFR 0.74 MG/DL (0.55-1.30); GLOMERULAR FILTRATION RATE > 60.0 (>45); GLUCOSE, FASTING 99 MG/DL (70-100); POTASSIUM SERUM 2.9 MEQ/L (3.5-5.1); SODIUM LEVEL 138 MEQ/L (136-145)
[2018-06-18 17:46] LABS: CREATININE, URINE 46.5 MG/DL
[2018-06-18 18:07] LABS: HEMOGLOBIN A1c 6.5 %
== END ==
LOC: M SFHCPLAZ 13:25
PROVIDERS: ATTEND Family Medicine
DX: E11.9 Type 2 diabetes mellitus without complications (principal); I10 Essential (primary) hypertension

== ENCOUNTER → 2018-06-19 | Outpatient (CLI) | payer MEDICARE, MEDICAID ==
[2018-06-19 13:10] LABS: CREATININE, URINE 23.9 MG/DL; MALB URINE SIEMENS < 5.0 MG/L; MAU/CREAT RATIO 20.9 MCG/MG (0.0-30.0)
[2018-06-19 13:12] LABS: HEMOGLOBIN A1c 6.4 %
[2018-06-19 13:18] LABS: BLOOD UREA NITROGEN 25 MG/DL (7-18); CALCIUM LEVEL 8.8 MG/DL (8.8-10.2); CARBON DIOXIDE LEVEL 34 MEQ/L (21-32); CHLORIDE LEVEL 101 MEQ/L (98-107); CREATININE FOR GFR 0.76 MG/DL (0.55-1.30); GLOMERULAR FILTRATION RATE > 60.0 (>45); GLUCOSE, FASTING 106 MG/DL (70-100); POTASSIUM SERUM 3.3 MEQ/L (3.5-5.1); SODIUM LEVEL 141 MEQ/L (136-145)
[2018-06-19 15:27] LABS: MAGNESIUM LEVEL 1.8 MG/DL (1.8-2.4)
== END ==
LOC: M LAB 12:19
PROVIDERS: ATTEND Family Medicine
DX: E11.9 Type 2 diabetes mellitus without complications (principal); I10 Essential (primary) hypertension; E83.42 Hypomagnesemia

== ENCOUNTER 2018-08-20 14:31 | Emergency (ER) | payer MEDICARE, MEDICAID ==
[2018-08-20] MEDS ORDERED: ATOR40TA75 PO (14:50)
[2018-08-20] MEDS ORDERED: AZAT50TA2 PO (14:50)
[2018-08-20] MEDS ORDERED: DULO1CAP3 PO (14:50)
--- NOTE | 2018-08-20 15:57 | REP ---
Chest one-view HISTORY: Dizziness Comparison: 02/11/2018 The lungs are clear. The heart is normal in size. The pulmonary vasculature is normal in appearance. Impression: No acute disease. Electronically Signed by Dequan Dhillon MD 08/20/2018 03:47 P
[2018-08-20] MEDS ORDERED: diphenhydrAMINE INJ 50MG/ML VIAL (J1200) IV ONE (16:00)
[2018-08-20] MEDS ORDERED: METOCLOPRAMIDE INJ 10MG/2ML VIAL (J2765) IV ONE (16:00)
[2018-08-20 16:05] LABS: BASO % 0.4 % (0.0-1.0); EOS % 0.2 % (0.0-3.0); HEMATOCRIT 37.9 % (36.0-47.0); LYMPH # 1.1 10^3/uL (1.5-4.5); LYMPH % 20.7 % (24.0-44.0); MEAN CORPUSCULAR HEMOGLOBIN 33.3 pg (27.0-33.0); MEAN CORPUSCULAR HGB CONC 34.3 g/dl (32.0-36.5); MEAN CORPUSCULAR VOLUME 97.2 fl (80.0-96.0); MONO # 0.2 10^3/uL (0.0-0.8); MONO % 3.3 % (0.0-5.0); NEUTROPHILS # 4.1 10^3/uL (1.8-7.7); PLATELET COUNT, AUTOMATED 135 10^3/uL (150-450); WHITE BLOOD COUNT 5.4 10^3/uL (4.0-10.0)
[2018-08-20 16:20] LABS: BLOOD UREA NITROGEN 15 MG/DL (7-18); CALCIUM LEVEL 8.7 MG/DL (8.8-10.2); CARBON DIOXIDE LEVEL 33 MEQ/L (21-32); CHLORIDE LEVEL 100 MEQ/L (98-107); CPK CREATINE PHOSPHOKINASE 58 U/L (26-192); CREATININE FOR GFR 0.64 MG/DL (0.55-1.30); FREE T4 0.99 NG/DL (0.76-1.46); GLOMERULAR FILTRATION RATE > 60.0 (>45); GLUCOSE, FASTING 100 MG/DL (70-100); MAGNESIUM LEVEL 2.1 MG/DL (1.8-2.4); MB/CK RELATIVE INDEX 1.72 (< OR =4); POTASSIUM SERUM 3.4 MEQ/L (3.5-5.1); SODIUM LEVEL 142 MEQ/L (136-145); THYROID STIMULATING HORMONE 0.613 uIU/ML (0.358-3.740); TROPONIN I 0.02 NG/ML (< 0.10)
--- NOTE | 2018-08-20 21:54 | REPVR ---
EXAM: MR Head Without Contrast EXAM DATE/TIME: 08/20/2018 3:57 PM CLINICAL HISTORY: 62 years old, female; Signs and symptoms; Dizziness and weakness, extremity; Bilateral; Additional info: Sz TECHNIQUE: Imaging protocol: MR of the head without contrast. COMPARISON: MRA BRAIN W/O CONTRAST 08/20/2018 7:35 PM FINDINGS: Brain: Scattered foci of increased T2/FLAIR signal intensity in the periventricular and subcortical white matter, consistent with chronic small vessel ischemic disease. No hemorrhage. No edema. Ventricles: Prominence of the cortical sulci, cisterns and ventricular system, consistent with cerebral and cerebellar volume loss. Bones/joints: Unremarkable. Soft tissues: Normal. Sinuses: Minimal ethmoid mucosal thickening. Mild polypoid bilateral maxillary sinus mucosal thickening. Mastoid air cells: Normal as visualized. No mastoid effusion. Orbits: Unremarkable. IMPRESSION: 1. No acute intracranial pathology. 2. Additional findings, as above. Electronically signed by: Morgan Felix On 08/20/2018 21:54:04 PM
--- NOTE | 2018-08-20 21:56 | REPVR ---
EXAM: MR Angiogram Head Without Contrast, Arteries EXAM DATE/TIME: 08/20/2018 3:57 PM CLINICAL HISTORY: 62 years old, female; Signs and symptoms; Dizziness and giddiness and weakness; Patient HX: Weakness, dizzy; Additional info: Carlo TECHNIQUE: Imaging protocol: MR angiogram head without contrast. Exam focused on the arteries. 3-D rendering: MIPs were created and reviewed. COMPARISON: MRA BRAIN W/O CONTRAST 11/01/2017 9:31 AM FINDINGS: Right internal carotid artery: Unremarkable. Intracranial segment is patent with no significant stenosis. No aneurysm. Right anterior cerebral artery: Unremarkable. No occlusion or significant stenosis. No aneurysm. Right middle cerebral artery: Unremarkable. No occlusion or significant stenosis. No aneurysm. Right posterior cerebral artery: Unremarkable. No occlusion or significant stenosis. No aneurysm. Right vertebral artery: Unremarkable. No occlusion or significant stenosis. No aneurysm. Left internal carotid artery: Unremarkable. Intracranial segment is patent with no significant stenosis. No aneurysm. Left anterior cerebral artery: Unremarkable. No occlusion or significant stenosis. No aneurysm. Left middle cerebral artery: Unremarkable. No occlusion or significant stenosis. No aneurysm. Left posterior cerebral artery: Unremarkable. No occlusion or significant stenosis. No aneurysm. Left vertebral artery: Unremarkable. No occlusion or significant stenosis. No aneurysm. Basilar artery: Unremarkable. No occlusion or significant stenosis. No aneurysm. IMPRESSION: No acute findings. Electronically signed by: Morgan Felix On 08/20/2018 21:56:21 PM
[2018-08-20 22:32] VITALS: BP 162/90
--- NOTE | 2018-08-21 08:01 | ECGEPIP ---
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
== END 2018-08-20 23:12 | disposition home or self-care (01) ==
LOC: M ED 14:31 → EDBD 14:31 → M ED 23:12
DX: R42 Dizziness and giddiness (principal); Z79.899 Other long term (current) drug therapy; Z79.82 Long term (current) use of aspirin; Z88.0 Allergy status to penicillin; Z88.1 Allergy status to other antibiotic agents; Z88.5 Allergy status to narcotic agent; Z88.8 Allergy status to other drugs, medicaments and biological substances; Z87.891 Personal history of nicotine dependence
CPT/HCPCS: 70544; 70551; 71045; 80048; 82550; 82553; 83735; 84439; 84443; 84484; 85025; 93005; 93041; 94760; 96374; 96375; 99285; J1200; J2765

== ENCOUNTER → 2018-09-03 | Outpatient (REF) | payer MEDICARE, MEDICAID ==
[~2018-09-03] MED LIST changes: +ATOR40TA75 PO; +AZAT50TA2 PO; +DULO1CAP6 PO; -ROSU20TA4 PO; +ROSU20TA5 PO
[2018-09-03 12:38] LABS: HEMATOCRIT 36.2 % (36.0-47.0); MEAN CORPUSCULAR HEMOGLOBIN 32.5 pg (27.0-33.0); MEAN CORPUSCULAR HGB CONC 33.1 g/dl (32.0-36.5); MEAN CORPUSCULAR VOLUME 98.1 fl (80.0-96.0); PLATELET COUNT, AUTOMATED 125 10^3/uL (150-450); RED BLOOD COUNT 3.69 10^6/uL (4.00-5.40); WHITE BLOOD COUNT 5.6 10^3/uL (4.0-10.0)
== END ==
LOC: M SFHCPLAZ 11:32
PROVIDERS: ATTEND Family Medicine
DX: D69.6 Thrombocytopenia, unspecified (principal)
CPT/HCPCS: 36415; 85027; G0463

== ENCOUNTER → 2018-09-05 | Outpatient (CLI) | payer MEDICARE, MEDICAID ==
[~2018-09-05] MED LIST changes: +DULO1CAP3 PO; -DULO1CAP6 PO; +ROSU20TA4 PO; -ROSU20TA5 PO
[2018-09-05 14:21] LABS: CALCIUM LEVEL 8.2 MG/DL (8.8-10.2); CREATININE FOR GFR 1.11 MG/DL (0.55-1.30); GLOMERULAR FILTRATION RATE 52.8 (>45); POTASSIUM SERUM 3.6 MEQ/L (3.5-5.1)
== END ==
LOC: M LAB 13:07
PROVIDERS: ATTEND Family Medicine
DX: E87.6 Hypokalemia (principal)

== ENCOUNTER → 2018-10-10 | Outpatient (REF) | payer MEDICARE, MEDICAID ==
[~2018-10-10] MED LIST changes: -DULO1CAP3 PO; +DULO1CAP6 PO; -ROSU20TA4 PO; +ROSU20TA5 PO
[2018-10-10 11:38] LABS: BLOOD UREA NITROGEN 23 MG/DL (7-18); CARBON DIOXIDE LEVEL 35 MEQ/L (21-32); CHLORIDE LEVEL 97 MEQ/L (98-107); CREATININE FOR GFR 0.71 MG/DL (0.55-1.30); GLOMERULAR FILTRATION RATE > 60.0 (>45); GLUCOSE, FASTING 106 MG/DL (70-100); POTASSIUM SERUM 3.5 MEQ/L (3.5-5.1); SODIUM LEVEL 138 MEQ/L (136-145)
== END ==
LOC: M SFHCPLAZ 08:15
PROVIDERS: ATTEND Family Medicine
DX: E87.6 Hypokalemia (principal); E83.42 Hypomagnesemia
CPT/HCPCS: 36415; 80048; 83735; G0463

== ENCOUNTER 2018-11-18 18:25 | Emergency (ER) | payer MEDICARE, MEDICAID ==
[~2018-11-18] VITALS: Ht 162.6 cm; Wt 90.5 kg
[2018-11-18] MEDS ORDERED: diazePAM 5 MG TAB PO ONE (21:00)
[2018-11-18] MEDS ORDERED: ACETAMINOPHEN 500 MG TAB PO ONE (21:00)
[2018-11-18] MEDS ORDERED: LIDOCAINE 5% (LIDODERM) PATCH TD ONE (21:00)
[2018-11-18] MEDS ORDERED: **NOTE PATIENT COMMENT** MISC XX SCH (21:00)
[2018-11-18 21:15] LABS: HEMATOCRIT 38.7 % (36.0-47.0); HEMOGLOBIN 13.1 g/dl (12.0-15.5); MEAN CORPUSCULAR HEMOGLOBIN 33.2 pg (27.0-33.0); MEAN CORPUSCULAR HGB CONC 33.9 g/dl (32.0-36.5); MEAN CORPUSCULAR VOLUME 98.2 fl (80.0-96.0); PLATELET COUNT, AUTOMATED 165 10^3/uL (150-450); RED BLOOD COUNT 3.94 10^6/uL (4.00-5.40); WHITE BLOOD COUNT 6.3 10^3/uL (4.0-10.0)
[2018-11-18 21:39] LABS: BLOOD UREA NITROGEN 23 MG/DL (7-18); C REACTIVE PROTEIN QUANTITATIV < 0.30 MG/DL (0.00-0.30); CALCIUM LEVEL 8.2 MG/DL (8.8-10.2); CARBON DIOXIDE LEVEL 35 MEQ/L (21-32); CHLORIDE LEVEL 97 MEQ/L (98-107); CREATININE FOR GFR 0.82 MG/DL (0.55-1.30); GLOMERULAR FILTRATION RATE > 60.0 (>45); GLUCOSE, FASTING 114 MG/DL (70-100); POTASSIUM SERUM 3.6 MEQ/L (3.5-5.1); SODIUM LEVEL 138 MEQ/L (136-145)
[2018-11-18 21:55] LABS: ERYTHROCYTE SEDIMENTATION RATE 58 mm/hr (0-30)
[2018-11-18 22:25] VITALS: BP 127/48
== END 2018-11-18 22:30 | disposition home or self-care (01) ==
LOC: M ED 18:25
DX: M54.5 Low back pain (principal); G89.29 Other chronic pain; M79.7 Fibromyalgia; E11.9 Type 2 diabetes mellitus without complications; I10 Essential (primary) hypertension; K21.9 Gastro-esophageal reflux disease without esophagitis; G43.909 Migraine, unspecified, not intractable, without status migrainosus; Z87.891 Personal history of nicotine dependence; Z88.0 Allergy status to penicillin; Z88.1 Allergy status to other antibiotic agents; Z88.5 Allergy status to narcotic agent; Z88.6 Allergy status to analgesic agent; Z88.8 Allergy status to other drugs, medicaments and biological substances; Z79.82 Long term (current) use of aspirin; Z79.899 Other long term (current) drug therapy

== ENCOUNTER → 2018-12-17 | Outpatient (REF) | payer MEDICARE, MEDICAID ==
[2018-12-17 16:22] LABS: HEMOGLOBIN A1c 5.8 %
== END ==
LOC: M SFHCPLAZ 13:38
PROVIDERS: ATTEND Family Medicine
DX: E11.9 Type 2 diabetes mellitus without complications (principal)
CPT/HCPCS: 36415; 83036; 90472; 90682; 90715; G0008; G0463

== ENCOUNTER → 2018-12-18 | Outpatient (CLI) | payer MEDICARE, MEDICAID ==
--- NOTE | 2018-12-18 14:21 | REP ---
Lower Extremity Venous Reflux: Positive reflux is greater than 0.5 seconds. Right Reflux Left Reflux CFV Reflux yes yes Ant. Acc. GSV Present yes no Reflux no no Greater saph/fem junction 4.0 mm yes 6.3 mm yes Greater saph vein mid thigh 4.3 mm yes 4.9 mm yes Greater saph vein at knee 3.6 mm no 4.4 mm yes SFV PROX yes yes SFV MID yes yes SFV DISTAL yes yes POPLITEAL VEIN no no LSV -- mm no 2.1 mm no There is minimal reflux in the deep venous system. Bilateral lower extremity deep vein duplex ultrasound: The deep veins demonstrate normal compression, normal Doppler color flow and normal Doppler waveforms with respiration and augmentation from the popliteal veins to the common femoral veins bilaterally . Impression: There is no deep vein thrombus in the right or left lower extremities. Electronically Signed by Sae Ramos MD 12/18/2018 02:13 P
== END ==
LOC: M RAD 11:37
PROVIDERS: ATTEND Surgery Vascular Surgery
DX: I83.813 Varicose veins of bilateral lower extremities with pain (principal)

== ENCOUNTER 2019-01-29 20:29 | Emergency (ER) | payer MEDICARE, MEDICAID ==
[~2019-01-29] VITALS: Ht 162.6 cm; Wt 85.9 kg
[2019-01-29] MEDS ORDERED: D3 S1CAP PO (20:42)
[2019-01-29] MEDS ORDERED: COZA100T2 PO (20:42)
[2019-01-29] MEDS ORDERED: PRAZ1CAP PO (20:42)
[2019-01-29] MEDS ORDERED: [UNRECOGNIZED DRUG - CODE] PO (20:42)
[2019-01-29] MEDS ORDERED: TIZA4TAB4 PO (20:42)
[2019-01-29] MEDS ORDERED: METH4PACK PO (20:48)
[2019-01-29 21:14] LABS: HEMATOCRIT 36.5 % (36.0-47.0); HEMOGLOBIN 12.1 g/dl (12.0-15.5); MEAN CORPUSCULAR HEMOGLOBIN 33.3 pg (27.0-33.0); MEAN CORPUSCULAR HGB CONC 33.2 g/dl (32.0-36.5); MEAN CORPUSCULAR VOLUME 100.6 fl (80.0-96.0); PLATELET COUNT, AUTOMATED 112 10^3/uL (150-450); RED BLOOD COUNT 3.63 10^6/uL (4.00-5.40); WHITE BLOOD COUNT 3.9 10^3/uL (4.0-10.0)
[2019-01-29 21:34] LABS: ALBUMIN 3.3 GM/DL (3.2-5.2); BILIRUBIN,TOTAL 0.4 MG/DL (0.2-1.0); CALCIUM LEVEL 8.8 MG/DL (8.8-10.2); CREATININE FOR GFR 1.07 MG/DL (0.55-1.30); POTASSIUM SERUM 2.9 MEQ/L (3.5-5.1); TOTAL PROTEIN 9.2 GM/DL (6.4-8.2)
[2019-01-29] MEDS ORDERED: NS 1,000 ML IV ONE (22:45)
[2019-01-29] MEDS ORDERED: POTASSIUM CHLORIDE 10 MEQ SR TABLET PO ONE (22:45)
[2019-01-29] MEDS ORDERED: KCL 10MEQ/100ML SWI (KRUN) 10 MEQ in IV 1 EA IV ONE ×4 (22:45)
[2019-01-29] MEDS ORDERED: KETOROLAC 30 MG/ML VIAL (J1885) IV ONE (22:45)
[2019-01-29] MEDS ORDERED: MORPHINE 4 MG/ML 1ML VIAL/SYRINGE (J2270) IV ONE (23:45)
--- NOTE | 2019-01-29 23:58 | REPVR ---
PROCEDURE INFORMATION: Exam: US Retroperitoneal Complete, Kidneys and Bladder. Exam date and time: 01/29/2019 11:18 PM Age: 63 years old Clinical history: Abdominal pain; Flank; Left; Additional Info: left flank pain TECHNIQUE: Imaging protocol: Real-time ultrasound of the retroperitoneum with image documentation. Complete exam focused on the kidneys and bladder. COMPARISON: RENAL US 05/12/2012 4:28 PM FINDINGS: Right kidney: Right kidney measures 12.0 cm in length. No hydronephrosis. No shadowing renal stones. Left kidney: Left kidney measures 11.5 cm in length. No hydronephrosis. No shadowing renal stones. Bladder: Bladder is unremarkable. Ureteral jets are not seen. IMPRESSION: Unremarkable kidneys and bladder. Electronically signed by: Jose Carlos Cunningham On 01/29/2019 23:58:21 PM
--- NOTE | 2019-01-30 01:16 | REPVR ---
PROCEDURE INFORMATION: Exam: CT Abdomen And Pelvis Without Contrast Exam date and time: 01/30/2019 12:42 AM Age: 63 years old Clinical history: Abdominal pain; Flank; Left; Additional Info: left flank pain TECHNIQUE: Imaging protocol: Computed tomography of the abdomen and pelvis without contrast. Radiation optimization: All CT scans at this facility use at least one of these dose optimization techniques: automated exposure control; mA and/or kV adjustment per patient size (includes targeted exams where dose is matched to clinical indication); or iterative reconstruction. COMPARISON: CT ABD PELVIS WITH CONTRAST 02/11/2018 6:34 PM FINDINGS: Liver: Normal. No mass. Gallbladder and bile ducts: Status post cholecystectomy. No biliary ductal dilatation. Pancreas: Normal. No ductal dilation. Spleen: Normal. No splenomegaly. Adrenals: Normal. No mass. Kidneys and ureters: Normal. No hydronephrosis. 6 mm nonobstructive stone in the lower pole of the left kidney. Stomach and bowel: Small sliding-type gastric hiatal hernia. Colonic diverticulosis without diverticulitis. No abnormal bowel dilatation. No abnormal bowel wall thickening. Moderate stool in the colon. Appendix: Appendix is normal. Intraperitoneal space: Unremarkable. No free air. No significant fluid collection. Vasculature: Mild calcified atherosclerotic disease. No aortic aneurysm. Lymph nodes: Unremarkable. No enlarged lymph nodes. Bladder: Unremarkable as visualized. Reproductive: Status post hysterectomy. Bones/joints: Moderate degenerative spine. No acute fracture. Soft tissues: Unremarkable. IMPRESSION: 1. Colonic diverticulosis without diverticulitis. 2. Small sliding-type gastric hiatal hernia. 3. Nonobstructive stone in the lower pole of the left kidney. 4. Additional findings as described. Electronically signed by: Jose Carlos Cunningham On 01/30/2019 01:16:05 AM
[2019-01-30 02:45] VITALS: BP 154/75
== END 2019-01-30 02:54 | disposition home or self-care (01) ==
LOC: M ED 20:29
DX: G89.4 Chronic pain syndrome (principal); K44.9 Diaphragmatic hernia without obstruction or gangrene; K57.90 Diverticulosis of intestine, part unspecified, without perforation or abscess without bleeding; J44.9 Chronic obstructive pulmonary disease, unspecified; I10 Essential (primary) hypertension; F43.10 Post-traumatic stress disorder, unspecified; E78.5 Hyperlipidemia, unspecified; K58.9 Irritable bowel syndrome, unspecified; G43.909 Migraine, unspecified, not intractable, without status migrainosus; M79.7 Fibromyalgia; Z79.899 Other long term (current) drug therapy; Z79.82 Long term (current) use of aspirin; Z88.0 Allergy status to penicillin; Z88.1 Allergy status to other antibiotic agents; Z88.5 Allergy status to narcotic agent; Z88.8 Allergy status to other drugs, medicaments and biological substances; Z87.891 Personal history of nicotine dependence
CPT/HCPCS: 74176; 76775; 80053; 81001; 83690; 85027; 87086; 96365; 96375; 99284; J1885; J2270

== ENCOUNTER 2019-02-14 11:25 | Emergency (ER) | payer MEDICARE, MEDICAID ==
[~2019-02-14] VITALS: Ht 165.1 cm; Wt 85.0 kg
[~2019-02-14 11:25] MED LIST changes: +COZA100T2 PO; +D3 S1CAP PO; +PRAZ1CAP PO; +TIZA4TAB4 PO; +[UNRECOGNIZED DRUG - CODE] PO
[2019-02-14] MEDS ORDERED: PEG1POW PO (11:55)
[2019-02-14] MEDS ORDERED: LACT10SO29 PO (11:55)
[2019-02-14] MEDS ORDERED: CIME800T4 PO (11:55)
[2019-02-14] MEDS ORDERED: ALLO100T PO (11:55)
[2019-02-14] MEDS ORDERED: COLC1TAB13 PO (11:55)
[2019-02-14] MEDS ORDERED: RIFA300C3 PO (11:55)
[2019-02-14] MEDS ORDERED: DOCU100C16 PO (11:55)
[2019-02-14 12:23] LABS: BASO % 0.4 % (0.0-1.0); EOS % 0.4 % (0.0-3.0); HEMATOCRIT 35.8 % (36.0-47.0); HEMOGLOBIN 12.1 g/dl (12.0-15.5); LYMPH # 1.2 10^3/uL (1.5-5.0); MEAN CORPUSCULAR HEMOGLOBIN 33.7 pg (27.0-33.0); MEAN CORPUSCULAR HGB CONC 33.8 g/dl (32.0-36.5); MEAN CORPUSCULAR VOLUME 99.7 fl (80.0-96.0); MONO # 0.3 10^3/uL (0.0-0.8); MONO % 5.6 % (0.0-5.0); NEUTROPHILS # 2.9 10^3/uL (1.5-8.5); NEUTROPHILS % 66.2 % (36.0-66.0); PLATELET COUNT, AUTOMATED 107 10^3/uL (150-450); RED BLOOD COUNT 3.59 10^6/uL (4.00-5.40); WHITE BLOOD COUNT 4.5 10^3/uL (4.0-10.0)
[2019-02-14 12:39] LABS: ALBUMIN 3.3 GM/DL (3.2-5.2); ALT/SGPT 48 U/L (12-78); BILIRUBIN,DIRECT 0.3 MG/DL (0.0-0.2); BILIRUBIN,TOTAL 0.7 MG/DL (0.2-1.0); BLOOD UREA NITROGEN 15 MG/DL (7-18); CALCIUM LEVEL 9.1 MG/DL (8.8-10.2); CARBON DIOXIDE LEVEL 33 MEQ/L (21-32); CHLORIDE LEVEL 100 MEQ/L (98-107); GLOMERULAR FILTRATION RATE > 60.0 (>45); GLUCOSE, FASTING 101 MG/DL (70-100); LIPASE 104 U/L (73-393); POTASSIUM SERUM 3.2 MEQ/L (3.5-5.1); SODIUM LEVEL 140 MEQ/L (136-145); TOTAL PROTEIN 9.2 GM/DL (6.4-8.2)
[2019-02-14] MEDS ORDERED: GI COCKTAIL 50ML BTL(HYOSCYAMINE/MAALOX/LIDOCAINE VISCOUS)(1:3:1) PO ONE (12:45)
[2019-02-14 13:03] LABS: CK-MB VALUE MASS 1.3 NG/ML (<3.6); CPK CREATINE PHOSPHOKINASE 65 U/L (26-192); TROPONIN I < 0.02 NG/ML (< 0.10)
--- NOTE | 2019-02-14 13:21 | REP ---
Three-view abdomen: 02/14/2019. Indication: Abdominal pain. Comparison: CT dated 01/30/2019. Findings: Bowel gas pattern is nonspecific without evidence of obstruction. The patient is status post cholecystectomy. There is no free intraperitoneal air. Impression: No acute abdominal process detected. Electronically Signed by Ronny Mccall DO 02/14/2019 01:12 P
[2019-02-14] MEDS ORDERED: SUCRALFATE SUSP 1GM/10ML UD PO ONE (13:30)
[2019-02-14] MEDS ORDERED: MORPHINE 4 MG/ML 1ML VIAL/SYRINGE (J2270) IV ONE (13:30)
[2019-02-14] MEDS ORDERED: ISOVUE-370 76% 100ML VIAL (Q9967) As Ordered ONE (13:37)
--- NOTE | 2019-02-14 15:31 | REP ---
Clinical: Upper abdominal pain. Technique: Axial contrast enhanced images from the lung bases to the pubic symphysis using 100 ml Isovue 370 intravenous contrast material with coronal and sagittal re-formations. Comparison: 01/30/2019. Findings: Lung bases are relatively clear. Visualized heart and pericardium grossly normal. Atherosclerotic changes noted. Liver, spleen, pancreas, bilateral adrenal glands and kidneys are normal. Evidence for prior cholecystectomy. Small to moderate hiatal hernia identified at the gastroesophageal junction. Diverticulosis noted without acute diverticulitis. No evidence for bowel obstruction or perforation. Normal appendix identified in the right lower quadrant. Pelvis demonstrates normal bladder and evidence for prior hysterectomy. No ascites. No free air. No adenopathy. Abdominal aorta without aneurysm. The skeletal structures and specifically the vertebral bodies and pelvis demonstrate somewhat mottled appearance with subtle scattered lytic areas. While these findings may represent degenerative change, malignancy/metastatic disease and multiple myeloma cannot definitively be excluded. Impression: 1. Hiatal hernia. 2. Diverticulosis without acute diverticulitis. 3. No acute abdominopelvic pathology appreciated. 4. Skeletal structures as described above may warrant followup. Electronically Signed by Carlos Multani MD 02/14/2019 03:23 P
[2019-02-14] MEDS ORDERED: SUCR1TA PO (15:48)
[2019-02-14 15:58] VITALS: BP 153/88
--- NOTE | 2019-02-14 18:10 | ECGEPIP ---
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
== END 2019-02-14 16:43 | disposition home or self-care (01) ==
LOC: EDBD 11:25 → M ED 11:25
DX: K44.9 Diaphragmatic hernia without obstruction or gangrene (principal); J44.9 Chronic obstructive pulmonary disease, unspecified; K21.9 Gastro-esophageal reflux disease without esophagitis; K57.92 Diverticulitis of intestine, part unspecified, without perforation or abscess without bleeding; K58.9 Irritable bowel syndrome, unspecified; M79.7 Fibromyalgia; R94.31 Abnormal electrocardiogram [ECG] [EKG]; Z79.82 Long term (current) use of aspirin; Z79.899 Other long term (current) drug therapy; Z88.0 Allergy status to penicillin; Z88.5 Allergy status to narcotic agent; Z88.8 Allergy status to other drugs, medicaments and biological substances
CPT/HCPCS: 74019; 74177; 80048; 80076; 82550; 82553; 83690; 84484; 85025; 93005; 96374; 99284; J2270; Q9967

== ENCOUNTER → 2019-02-19 | Outpatient (REF) | payer MEDICARE, MEDICAID ==
[~2019-02-19] MED LIST changes: +CIME800T4 PO; +COLC1TAB13 PO; +D 202000 PO; +DOCU100C16 PO; +FAMO40TA3 PO; +FISH1000 PO; +LACT10SO29 PO; +PEG1POW PO; +POTA10TA17 PO; +RIFA300C3 PO; +SUCR1TA PO; +SUCR1TAB56 PO
[2019-02-19 16:47] LABS: BLOOD UREA NITROGEN 13 MG/DL (7-18); C REACTIVE PROTEIN QUANTITATIV < 0.30 MG/DL (0.00-0.30); CALCIUM LEVEL 8.8 MG/DL (8.8-10.2); CARBON DIOXIDE LEVEL 32 MEQ/L (21-32); CHLORIDE LEVEL 101 MEQ/L (98-107); CREATININE FOR GFR 0.96 MG/DL (0.55-1.30); GLOMERULAR FILTRATION RATE > 60.0 (>45); GLUCOSE, FASTING 119 MG/DL (70-100); LDH LACTATE DEHYDROGENASE 138 U/L (84-246); MAGNESIUM LEVEL 1.8 MG/DL (1.8-2.4); POTASSIUM SERUM 3.6 MEQ/L (3.5-5.1); SODIUM LEVEL 140 MEQ/L (136-145); TOTAL PROTEIN 9.6 GM/DL (6.4-8.2)
[2019-02-21 13:46] LABS: ALBUMIN 4.08 GM/DL (3.29-5.55); ALBUMIN % 42.5 % (55.8-66.1); ALPHA-1-GLOBULIN % 3.2 % (2.9-4.9); ALPHA-1-GLOBULINS 0.31 GM/DL (0.17-0.41); ALPHA-2-GLOBULINS 0.74 GM/DL (0.42-0.99); ALPHA-2-GLOBULINS % 7.7 % (7.1-11.8); BETA-1-GLOBULINS 0.38 GM/DL (0.28-0.60); BETA-2-GLOBULINS % 14.3 % (3.2-6.5); GAMMA GLOBULIN % 1.3 % (11.1-18.8)
[2019-02-21 13:47] LABS: BETA-2-GLOBULINS 3.96 GM/DL (0.19-0.55); GAMMA GLOBULINS 0.12 GM/DL (0.65-1.58)
[2019-02-21 13:55] LABS: IMMUNOTYPING SERUM IGG ABNORMAL (NORMAL)
[2019-02-21 13:56] LABS: IMMUNOTYPING SERUM KAPPA ABNORMAL (NORMAL)
[2019-02-22 08:41] LABS: BETA 2 MICROGLOBULIN 3.2 mg/L (0.6-2.4); FREE KAPPA LIGHT CHAINS SERUM 32.7 mg/L (3.3-19.4); FREE LAMBDA LIGHT CHAINS SERUM 2.3 mg/L (5.7-26.3); KAPPA/LAMBDA RATIO SERUM 14.22 (0.26-1.65)
== END ==
LOC: M SFHCPLAZ 13:42
PROVIDERS: ATTEND Family Medicine
DX: M89.9 Disorder of bone, unspecified (principal); E87.6 Hypokalemia; E83.42 Hypomagnesemia; K21.9 Gastro-esophageal reflux disease without esophagitis
CPT/HCPCS: 36415; 80048; 82232; 83615; 83735; 83883; 84165; 86140; 86335; G0463

== ENCOUNTER → 2019-02-25 | Outpatient (CLI) | payer MEDICARE, MEDICAID ==
[~2019-02-25] MED LIST changes: -D 202000 PO; -FAMO40TA3 PO; -FISH1000 PO; -POTA10TA17 PO; -SUCR1TAB56 PO
--- NOTE | 2019-02-25 12:04 | REP ---
BONE SCAN: WHOLE-BODY STUDY. HISTORY: Lytic bone lesions. Comparison CT study, February 14, 2019. Comparison skeletal survey, February 21, 2019. TECHNIQUE: 22.0 mCi technetium 99m MDP is injected, and standard whole body bone scan images are acquired. SCINTIGRAPHIC FINDINGS: There is osteoarthritic uptake in the small joints of the feet and wrists bilaterally. There is a focus of increased uptake in the one of the left lower lateral ribs consistent with healing fracture. Otherwise, skeletal tracer is normally distributed with uptake in bilateral kidneys and in the urinary bladder. There is no bone scan evidence to suggest metastatic disease. IMPRESSION: No scintigraphic evidence to suggest skeletal metastatic disease. Radionuclide bone scanning is known to be somewhat less sensitive for myelomatous disease. Electronically Signed by Faizan Gomes MD 02/25/2019 01:47 P
== END ==
LOC: M RAD 07:25
PROVIDERS: ATTEND Family Medicine
DX: M89.9 Disorder of bone, unspecified (principal)
CPT/HCPCS: 78306; A9503

== ENCOUNTER 2019-03-11 08:12 | Day surgery (SDC) | payer MEDICARE, MEDICAID ==
[~2019-03-11] VITALS: Ht 162.6 cm; Wt 84.4 kg
[~2019-03-11 08:12] MED LIST changes: +D 202000 PO; +FAMO40TA3 PO; +FISH1000 PO; +NS 1,000 ML IV ONE; +POTA10TA17 PO; +SUCR1TAB56 PO
[2019-03-11] MEDS ORDERED: LIDOCAINE 2% INJ 100 MG/5 ML SDV (FOR ANES.) As Ordered ONE (08:57)
[2019-03-11] MEDS ORDERED: PROPOFOL 200 MG/20 ML VIAL As Ordered ONE ×2 (08:57→09:29)
--- NOTE | 2019-03-11 09:35 | ROOR ---
Patient Name: Vicky Gooden Procedure Date: 03/11/2019 9:08 AM Date of : 1955 Age: 63 Room: [facility] Gender: Female Note Status: Finalized Procedure: Upper GI endoscopy Indications: Epigastric abdominal pain, Suspected esophageal reflux Providers: Sebastian Iqbal Jr, MD Referring MD: Jaye Scales MD Requesting Provider: Medicines: Propofol per Anesthesia Complications: No immediate complications. Procedure: Pre-Anesthesia Assessment: - Prior to the procedure, a History and Physical was performed, and patient medications and allergies were reviewed. The patient is competent. The risks and benefits of the procedure and the sedation options and risks were discussed with the patient. All questions were answered and informed consent was obtained. Patient identification and proposed procedure were verified by the physician and the nurse in the pre-procedure area and in the procedure room. Mental Status Examination: alert and oriented. Airway Examination: normal oropharyngeal airway and neck mobility. Respiratory Examination: clear to auscultation. CV Examination: normal. ASA Grade Assessment: II - A patient with mild systemic disease. After reviewing the risks and benefits, the patient was deemed in satisfactory condition to undergo the procedure. The anesthesia plan was to use moderate sedation / analgesia (conscious sedation). Immediately prior to administration of medications, the patient was re-assessed for adequacy to receive sedatives. The heart rate, respiratory rate, oxygen saturations, blood pressure, adequacy of pulmonary ventilation, and response to care were monitored throughout the procedure. The physical status of the patient was re-assessed after the procedure. The Endoscope was introduced through the mouth, and advanced to the second part of duodenum. The upper GI endoscopy was accomplished without difficulty. The patient tolerated the procedure well. Findings: The upper third of the esophagus, middle third of the esophagus and lower third of the esophagus were normal. LA Grade A (one or more mucosal breaks less than 5 mm, not extending between tops of 2 mucosal folds) esophagitis with no bleeding was found at the gastroesophageal junction. Patchy moderate inflammation characterized by congestion (edema), erythema, friability and granularity was found in the gastric antrum. Biopsies were taken with a cold forceps for histology. The duodenal bulb, first portion of the duodenum and second portion of the duodenum were normal. A medium-sized hiatal hernia was present. The gastric fundus, gastric body, greater curvature of the stomach, lesser curvature of the stomach and pylorus were normal. Impression: - Normal upper third of esophagus, middle third of esophagus and lower third of esophagus. - LA Grade A esophagitis. - Gastritis. Biopsied. - Normal duodenal bulb, first portion of the duodenum and second portion of the duodenum. - Medium-sized hiatal hernia. - Normal gastric fundus, gastric body, greater curvature of the stomach, lesser curvature of the stomach and pylorus. Recommendation: - Discharge patient to home (ambulatory). - Return to my office as previously scheduled. Sebastian Iqbal MD Sebastian Iqbal Jr, MD 03/11/2019 9:35:38 AM Electronically signed by Sebastian Iqbal Jr, MD Number of Addenda: 0 Note Initiated On: 03/11/2019 9:08 AM Estimated Blood Loss: Estimated blood loss: none.
[2019-03-11 10:08] VITALS: BP 159/75
== END 2019-03-11 12:01 | disposition home or self-care (01) ==
LOC: M OPP 08:12
PROVIDERS: ATTEND Surgery
DX: K20.9 Esophagitis, unspecified (principal); K29.70 Gastritis, unspecified, without bleeding; K44.9 Diaphragmatic hernia without obstruction or gangrene; Z79.82 Long term (current) use of aspirin; Z79.899 Other long term (current) drug therapy; Z88.0 Allergy status to penicillin; Z88.1 Allergy status to other antibiotic agents; Z88.8 Allergy status to other drugs, medicaments and biological substances; Z88.5 Allergy status to narcotic agent; Z88.6 Allergy status to analgesic agent; Z87.891 Personal history of nicotine dependence

== ENCOUNTER 2019-04-07 13:33 | Emergency (ER) | payer MEDICARE, MEDICAID ==
[~2019-04-07] VITALS: Ht 162.6 cm; Wt 84.6 kg
[~2019-04-07 13:33] MED LIST changes: -NS 1,000 ML IV ONE
[2019-04-07] MEDS ORDERED: NS 1,000 ML IV ONE (14:00)
[2019-04-07 14:24] LABS: BASO % 0.4 % (0.0-1.0); EOS % 0.4 % (0.0-3.0); HEMATOCRIT 36.9 % (36.0-47.0); HEMOGLOBIN 12.1 g/dl (12.0-15.5); LYMPH # 1.4 10^3/uL (1.5-5.0); LYMPH % 30.6 % (24.0-44.0); MEAN CORPUSCULAR HEMOGLOBIN 32.5 pg (27.0-33.0); MEAN CORPUSCULAR HGB CONC 32.8 g/dl (32.0-36.5); MEAN CORPUSCULAR VOLUME 99.2 fl (80.0-96.0); MONO # 0.2 10^3/uL (0.0-0.8); MONO % 4.1 % (0.0-5.0); NEUTROPHILS % 64.3 % (36.0-66.0); PLATELET COUNT, AUTOMATED 114 10^3/uL (150-450); RED BLOOD COUNT 3.72 10^6/uL (4.00-5.40); WHITE BLOOD COUNT 4.6 10^3/uL (4.0-10.0)
[2019-04-07 14:44] LABS: BLOOD UREA NITROGEN 22 MG/DL (7-18); C REACTIVE PROTEIN QUANTITATIV < 0.30 MG/DL (0.00-0.30); CALCIUM LEVEL 8.4 MG/DL (8.8-10.2); CARBON DIOXIDE LEVEL 34 MEQ/L (21-32); CHLORIDE LEVEL 101 MEQ/L (98-107); CREATININE FOR GFR 0.86 MG/DL (0.55-1.30); GLOMERULAR FILTRATION RATE > 60.0 (>45); GLUCOSE, FASTING 132 MG/DL (70-100); POTASSIUM SERUM 3.5 MEQ/L (3.5-5.1); SODIUM LEVEL 139 MEQ/L (136-145)
[2019-04-07 14:55] LABS: ERYTHROCYTE SEDIMENTATION RATE 58 mm/hr (0-30)
[2019-04-07] MEDS ORDERED: METOCLOPRAMIDE INJ 10MG/2ML VIAL (J2765) IV ONE (15:00)
[2019-04-07] MEDS ORDERED: KETOROLAC 30 MG/ML VIAL (J1885) IV ONE (15:00)
[2019-04-07] MEDS ORDERED: diphenhydrAMINE INJ 50MG/ML VIAL (J1200) IV ONE (15:45)
[2019-04-07] MEDS ORDERED: traMADol 50 MG TAB PO ONE (16:45)
[2019-04-07] MEDS ORDERED: TRAM50TA2 PO (17:39)
[2019-04-07] MEDS ORDERED: traMADol 50 MG TAB (BULK 4 TAB ED) PO ONE (17:45)
[2019-04-07 18:04] VITALS: BP 167/86
--- NOTE | 2019-04-08 07:31 | REP ---
CT BRAIN WITHOUT CONTRAST: 04/07/2019. COMPARISON: 11/03/2017. CLINICAL HISTORY: headache for 5 days. TECHNIQUE: Soft-tissue and bone window axial images with soft tissue reconstruction is also provided. FINDINGS: Lateral ventricles are midline symmetric and unremarkable. Third and fourth ventricles proportionate in size and also unremarkable. Basal ganglia symmetric and normal. There is minimal volume loss of the cortex with very mild atrophy, age appropriate and unchanged. I see no evidence of lacunar infarct, intracranial hemorrhage, mass or mass effect. Alfredo/white junction differentiation maintained. No extra-axial fluid collection. Brainstem unremarkable. Cerebellum intact. Basal cisterns intact. Skull base and calvarium show no fracture. Sinuses and mastoids are clear. There are vascular calcifications in the carotid siphons. Scattered lucencies in the calvarium may reflect the patient's known underlying malignancy. IMPRESSION: 1. No intracranial hemorrhage, infarct, edema or mass. Minimal atrophy, age appropriate. 2. Few scattered small lucencies in the cortex that may reflect underlying malignancy in the marrow but no destructive lesion, expansion of cortex or intracranial/intraparenchymal abnormality. Electronically Signed by Hiren Her MD 04/08/2019 09:14 A
[2019-04-10] MEDS ORDERED: REVL15CA PO (11:39)
[2019-04-10] MEDS ORDERED: DECA4TAB PO (11:39)
== END 2019-04-07 18:05 | disposition home or self-care (01) ==
LOC: M ED 13:33
DX: G89.3 Neoplasm related pain (acute) (chronic) (principal); R51 Headache; I10 Essential (primary) hypertension; M79.7 Fibromyalgia; Z79.82 Long term (current) use of aspirin; Z79.899 Other long term (current) drug therapy; Z63.79 Other stressful life events affecting family and household; Z63.8 Other specified problems related to primary support group; Z88.0 Allergy status to penicillin; Z88.6 Allergy status to analgesic agent; Z88.8 Allergy status to other drugs, medicaments and biological substances
CPT/HCPCS: 70450; 80048; 85025; 85652; 86140; 96361; 96374; 96375; 99284; J1200; J1885; J2765

== ENCOUNTER → 2019-04-30 | Outpatient (CLI) | payer MEDICARE, MEDICAID ==
[~2019-04-30] MED LIST changes: +ACYC400T PO; +DECA4TAB PO; +LOPE1CAP5 PO; +MECL-86 PO; +REVL15CA PO; +TRAM50TA2 PO; +VITA1CHW7 PO; +VITA500C24 PO; +VITATAB73 PO; +ZQUIL PO
--- NOTE | 2019-04-30 11:14 | REP ---
Gastric emptying nuclear scintigraphy: History: Gastroparesis. Epigastric pain. Technique: 1.1 mCi of technetium-99m sulfur colloid was ingested in two scrambled eggs and 6 ounces of water and sequential anterior and posterior images are acquired for an 89-minute imaging observation period. Regions of interest are drawn around the stomach to plot gastric emptying. Scintigraphic findings: Expected T1/2 is 90 minutes. 46 % emptying is observed in this patient during the 89-minute imaging observation period, for a calculated T1/2 in this patient of 101 minutes. Impression: Normal gastric emptying. Electronically Signed by Faizan Gomes MD 04/30/2019 11:06 A
== END ==
LOC: M RAD 08:53
PROVIDERS: ATTEND Internal Medicine Gastroenterology
DX: K31.84 Gastroparesis (principal); R10.9 Unspecified abdominal pain
CPT/HCPCS: 78264; A9541

== ENCOUNTER 2019-05-17 15:10 | Emergency (ER) | payer MEDICARE, MEDICAID ==
[~2019-05-17] VITALS: Ht 165.1 cm; Wt 83.2 kg
[2019-05-17] MEDS ORDERED: NS 1,000 ML IV ONE ×2 (16:00→18:15)
[2019-05-17 16:47] LABS: BLOOD UREA NITROGEN 14 MG/DL (7-18); CALCIUM LEVEL 8.5 MG/DL (8.8-10.2); CARBON DIOXIDE LEVEL 32 MEQ/L (21-32); CHLORIDE LEVEL 105 MEQ/L (98-107); CREATININE FOR GFR 0.97 MG/DL (0.55-1.30); GLOMERULAR FILTRATION RATE > 60.0 (>45); GLUCOSE, FASTING 104 MG/DL (70-100); POTASSIUM SERUM 3.5 MEQ/L (3.5-5.1); SODIUM LEVEL 140 MEQ/L (136-145)
[2019-05-17 17:18] LABS: INFLUENZA A AMPLIFICATION NEGATIVE (NEGATIVE); INFLUENZA B AMPLIFICATION NEGATIVE (NEGATIVE)
[2019-05-17] MEDS ORDERED: AZITHROMYCIN 250 MG TAB PO ONE (18:00)
[2019-05-17] MEDS ORDERED: ONDANSETRON 4MG/2ML VIAL (J2405) IV ONE (19:30)
[2019-05-17] MEDS ORDERED: MORPHINE 2 MG/ML 1ML VIAL (J2270) IV PRN (19:30)
[2019-05-17] MEDS ORDERED: AZIT-12 PO (21:15)
[2019-05-17] MEDS ORDERED: NORCO 5/325MG TABLET (BULK FOR ED) PO ONE (21:15)
[2019-05-17 21:23] VITALS: BP 145/76
[2019-05-20] MEDS ORDERED: REVL15CA PO ×2 (13:04→13:28)
[2019-05-20] MEDS ORDERED: DECA4TAB PO ×2 (13:04→13:29)
[2019-05-20] MEDS ORDERED: REVL10CA2 PO (18:04)
== END 2019-05-17 21:30 | disposition home or self-care (01) ==
LOC: M ED 15:10
DX: K52.9 Noninfective gastroenteritis and colitis, unspecified (principal); A04.2 Enteroinvasive Escherichia coli infection; Z79.82 Long term (current) use of aspirin; Z79.899 Other long term (current) drug therapy; Z88.1 Allergy status to other antibiotic agents; Z88.6 Allergy status to analgesic agent; Z88.8 Allergy status to other drugs, medicaments and biological substances
CPT/HCPCS: 80048; 85027; 87502; 87507; 96361; 96374; 99284; J2270; J2405

== ENCOUNTER → 2019-05-24 | Outpatient (REF) | payer MEDICARE, MEDICAID ==
[~2019-05-24] MED LIST changes: +AZIT-12 PO; +REVL10CA2 PO; +REVL5CAP2 PO
[2019-05-24 17:40] LABS: ALBUMIN 3.4 GM/DL (3.2-5.2); ALT/SGPT 33 U/L (12-78); BILIRUBIN,TOTAL 0.5 MG/DL (0.2-1.0); BLOOD UREA NITROGEN 15 MG/DL (7-18); CALCIUM LEVEL 8.7 MG/DL (8.8-10.2); CARBON DIOXIDE LEVEL 35 MEQ/L (21-32); CHLORIDE LEVEL 101 MEQ/L (98-107); CREATININE FOR GFR 0.96 MG/DL (0.55-1.30); GLOMERULAR FILTRATION RATE > 60.0 (>45); GLUCOSE, FASTING 68 MG/DL (70-100); POTASSIUM SERUM 3.7 MEQ/L (3.5-5.1); SODIUM LEVEL 142 MEQ/L (136-145); TOTAL PROTEIN 8.6 GM/DL (6.4-8.2)
[2019-05-24 17:56] LABS: BASO % 0.5 % (0.0-1.0); EOS # 0.1 10^3/uL (0.0-0.5); EOS % 1.3 % (0.0-3.0); HEMATOCRIT 35.3 % (36.0-47.0); HEMOGLOBIN 11.6 g/dl (12.0-15.5); LYMPH # 1.2 10^3/uL (1.5-5.0); MEAN CORPUSCULAR HEMOGLOBIN 33.4 pg (27.0-33.0); MEAN CORPUSCULAR HGB CONC 32.9 g/dl (32.0-36.5); MEAN CORPUSCULAR VOLUME 101.7 fl (80.0-96.0); MONO # 0.3 10^3/uL (0.0-0.8); MONO % 5.7 % (0.0-5.0); NEUTROPHILS # 3.9 10^3/uL (1.5-8.5); RED BLOOD COUNT 3.47 10^6/uL (4.00-5.40); WHITE BLOOD COUNT 5.5 10^3/uL (4.0-10.0)
[2019-05-24 17:59] LABS: PLATELET COUNT, AUTOMATED 91 10^3/uL (150-450)
== END ==
LOC: M SFHCPLAZ 13:50
PROVIDERS: ATTEND Family Medicine
DX: R10.84 Generalized abdominal pain (principal)
CPT/HCPCS: 36415; 80053; 85025; 85049; 85055; G0463

== ENCOUNTER → 2019-06-04 | Outpatient (CLI) | payer MEDICARE, MEDICAID ==
[~2019-06-04] MED LIST changes: +GASTROGRAFIN SOLUTION 30ML (Q9963) As Ordered ONE; +ISOVUE-370 76% 100ML VIAL (Q9967) As Ordered ONE
--- NOTE | 2019-06-04 15:19 | REP ---
Clinical: Generalized abdominal pain. Technique: Axial contrast enhanced images from the lung bases to the pubic symphysis with coronal and sagittal re-formations using oral (per protocol) and 100 ml Isovue 370 intravenous contrast material. Comparison: 02/14/2019. Findings: Lung bases are clear. Moderate hiatal hernia at the gastroesophageal junction noted. Liver, spleen, pancreas, bilateral adrenal glands and kidneys are essentially normal. Evidence of prior cholecystectomy. The enteric system is without obstruction or obvious acute inflammatory process. Normal terminal ileum and appendix are identified in the right lower quadrant. Colonic and sigmoid diverticulosis noted without acute diverticulitis. Pelvis demonstrates normal bladder and evidence of prior hysterectomy. No ascites. No free air. No adenopathy. Abdominal aorta without aneurysm or dissection. Musculoskeletal structures demonstrate degenerative changes without acute osseous abnormality. Impression: 1. No acute abdominopelvic pathology appreciated. 2. Moderate hiatal hernia. 3. Diverticulosis without acute diverticulitis. 4. Evidence for prior cholecystectomy and hysterectomy. Electronically Signed by Carlos Multani MD 06/04/2019 03:10 P
== END ==
LOC: M RAD 12:49
PROVIDERS: ATTEND Family Medicine
DX: K44.9 Diaphragmatic hernia without obstruction or gangrene (principal); K57.30 Diverticulosis of large intestine without perforation or abscess without bleeding
CPT/HCPCS: 74177; Q9963; Q9967

== ENCOUNTER → 2019-06-17 | Outpatient (REF) | payer MEDICARE, MEDICAID ==
[~2019-06-17] MED LIST changes: -GASTROGRAFIN SOLUTION 30ML (Q9963) As Ordered ONE; -ISOVUE-370 76% 100ML VIAL (Q9967) As Ordered ONE
[2019-06-17 11:19] LABS: CALCIUM LEVEL 8.7 MG/DL (8.8-10.2); CREATININE FOR GFR 1.29 MG/DL (0.55-1.30); GLOMERULAR FILTRATION RATE 44.3 (>45); POTASSIUM SERUM 3.1 MEQ/L (3.5-5.1)
[2019-06-17 11:30] LABS: HEMOGLOBIN A1c 6.1 %
== END ==
LOC: M SFHCPLAZ 10:32
PROVIDERS: ATTEND Family Medicine
DX: N17.9 Acute kidney failure, unspecified (principal); E11.9 Type 2 diabetes mellitus without complications; E87.6 Hypokalemia

== ENCOUNTER 2019-07-15 12:41 | Emergency (ER) | payer MEDICARE, MEDICAID ==
[~2019-07-15] VITALS: Ht 165.1 cm; Wt 83.4 kg
[~2019-07-15 12:41] MED LIST changes: -ACYC400T; -AMIT25TA PO; +AMIT25TA17 PO; +COLC0.6T47 PO; -COLC1TAB13 PO; -LACT10SO29 PO; +LACT20EL PO; -MAG400TA PO; +MAGN400T35 PO; +METH-1164 PO; -METH1TAB40 PO; -PANT40TA3 PO; -VITA2000
[2019-07-15] MEDS ORDERED: ACYC400T PO (12:54)
[2019-07-15] MEDS ORDERED: VITA200031 (12:54)
[2019-07-15] MEDS ORDERED: PANT40TA29 PO (12:54)
--- NOTE | 2019-07-15 13:53 | REP ---
LEFT RIB SERIES: Five views including PA chest. HISTORY: Injury in a fall. Comparison chest x-ray August 20, 2018. FINDINGS: PA chest radiograph shows no evidence of pneumothorax or hydrothorax. The aorta is somewhat tortuous. Pulmonary vasculature is not increased. Pleural angles are sharp. Lung joshi are clear. Multiple views of the left rib cage demonstrate mild diffuse osteopenia. There is evidence of a callus formation about a healing fracture of the left 10th lateral rib. No other visible rib fracture. IMPRESSION: Healing left lateral 10th rib fracture. No other rib fracture seen. Otherwise no acute disease. Electronically Signed by Faizan Gomes MD 07/15/2019 02:37 P
[2019-07-15] MEDS ORDERED: NS 1,000 ML IV ONE (14:00)
[2019-07-15] MEDS ORDERED: ISOVUE-370 76% 100ML VIAL As Ordered ONE (14:22)
[2019-07-15] MEDS ORDERED: traMADol 50 MG TAB PO ONE (15:30)
[2019-07-15] MEDS ORDERED: ULTR50TA8 PO (15:33)
--- NOTE | 2019-07-15 15:40 | REP ---
CT ABDOMEN AND PELVIS WITH IV CONTRAST: TECHNIQUE: Axial contrast enhanced images from the lung bases to the pubic symphysis using 100 mL Isovue-370 intravenous contrast material with multiplanar reformations. In the visualized lung bases, there are mild fibroatelectatic changes. There is a moderate-sized hiatal hernia. The liver is unremarkable in appearance. The patient has had a prior cholecystectomy. I do not see significant biliary dilatation. Spleen is normal in size with no intrinsic abnormality. There is no evidence of splenic injury. The adrenal glands are normal. No pancreatic mass is seen. The kidneys demonstrate no hydronephrosis. There is a cyst of the medial left kidney measuring 1.3 cm in diameter. There is no abdominal aortic aneurysm. There is no adenopathy. There is no free air or free fluid. There is no anterior abdominal wall hernia. The appendix is normal. There diverticulosis noted of the sigmoid and left colon. There may be some mild thickening and surrounding fat inflammation in a portion the sigmoid colon to the right of midline. This may represent mild diverticulitis. Urinary bladder is mildly distended and grossly unremarkable. The patient has had a prior hysterectomy. There is no fracture of the visualized osseous structures. There are degenerative changes of the spine. There are subtle small ill-defined lucent bone lesions throughout the visualized osseous structures as seen on prior bone survey 02/21/2019. IMPRESSION: Possible mild sigmoid diverticulitis. No free air or free fluid. No evidence of visceral organ injury. There are subtle small ill-defined lucent bone lesions throughout the visualized osseous structures as seen on prior bone survey 02/21/2019. Electronically Signed by Sae Alfredo MD 07/15/2019 04:02 P
[2019-07-15 15:45] VITALS: BP 142/85
--- NOTE | 2019-07-15 18:41 | ECGEPIP ---
[facility] - ED Test Date: 2019-07-15 Pat Name: JEREMI MALLOY Department: Room: - Gender: Female Teaching Specialists: : 1955 Requested By: LACEY PALMA PA-C. Order Number: [id number] Reading MD: Jessica Miguel Measurements Intervals [place] Rate: 71 P: 68 CO: 150 QRS: 61 QRSD: 93 T: 73 QT: 392 QTc: 427 Interpretive Statements SINUS RHYTHM WITH SINUS ARRHYTHMIA NSTTW abnormalities SIMILAR 02/14/19 Electronically Signed on 07-15-2019 18:41:01 EDT by Jessica Miguel
--- NOTE | 2019-07-16 14:27 | ED PDOC ---
Post-Departure Follow-Up ct abd/p faxed to Dr Scales for fu Cherelle Thomas MD July 16, 2019 14:27
[2019-07-31] MEDS ORDERED: POMA2CAP PO (15:51)
[2019-08-30] MEDS ORDERED: PROC10TA4 PO (07:41)
[2019-08-30] MEDS ORDERED: POMA2CAP PO (15:25)
[2019-09-23] MEDS ORDERED: METF750T36 PO (13:04)
[2019-09-23] MEDS ORDERED: ATOR80TA59 PO (13:04)
[2019-09-23] MEDS ORDERED: ACYC400T PO (13:29)
[2019-09-23] MEDS ORDERED: HYDR-4570 PO (13:31)
[2019-09-23] MEDS ORDERED: PENT400T47 PO (13:52)
[2019-09-27] MEDS ORDERED: LOPE1CAP5 PO (13:27)
[2019-09-30] MEDS ORDERED: POMA2CAP PO (14:33)
[2019-10-02] MEDS ORDERED: D31000TA2 PO (15:39)
[2019-12-23] MEDS ORDERED: POMA2CAP PO (21:14)
[2019-12-27] MEDS ORDERED: TRAM50TA2 PO (14:51)
[2019-12-30] MEDS ORDERED: DEXA4TA PO (14:50)
[2019-12-30] MEDS ORDERED: CLAR10CA3 PO (14:50)
[2020-01-13] MEDS ORDERED: MAGN400C2 PO (09:26)
[2020-01-13] MEDS ORDERED: MORP15TA2 PO (09:26)
[2020-01-16] MEDS ORDERED: POMA2CAP PO (12:34)
== END 2019-07-15 15:48 | disposition home or self-care (01) ==
LOC: M ED 12:41
DX: S22.32XD Fracture of one rib, left side, subsequent encounter for fracture with routine healing (principal); R55 Syncope and collapse; W18.2XXA Fall in (into) shower or empty bathtub, initial encounter; Y92.002 Bathroom of unspecified non-institutional (private) residence as the place of occurrence of the external cause; C90.00 Multiple myeloma not having achieved remission; M85.80 Other specified disorders of bone density and structure, unspecified site; Z88.8 Allergy status to other drugs, medicaments and biological substances; Z79.899 Other long term (current) drug therapy

== ENCOUNTER → 2019-07-15 | Outpatient (CLI) | payer MEDICARE, MEDICAID ==
[~2019-07-15] MED LIST changes: +ACYC400T; +PANT40TA3 PO; +POMA2CAP PO; +VITA2000
[2019-07-15 12:20] LABS: BASO % 0.3 % (0.0-1.0); EOS % 0.3 % (0.0-3.0); HEMATOCRIT 34.5 % (36.0-47.0); HEMOGLOBIN 11.4 g/dl (12.0-15.5); LYMPH # 0.5 10^3/uL (1.5-5.0); LYMPH % 12.7 % (24.0-44.0); MEAN CORPUSCULAR HEMOGLOBIN 33.6 pg (27.0-33.0); MEAN CORPUSCULAR VOLUME 101.8 fl (80.0-96.0); MONO # 0.1 10^3/uL (0.0-0.8); MONO % 1.9 % (0.0-5.0); NEUTROPHILS # 3.1 10^3/uL (1.5-8.5); NEUTROPHILS % 84.5 % (36.0-66.0); RED BLOOD COUNT 3.39 10^6/uL (4.00-5.40); WHITE BLOOD COUNT 3.7 10^3/uL (4.0-10.0)
[2019-07-15 12:22] LABS: PLATELET COUNT, AUTOMATED 88 10^3/uL (150-450)
[2019-07-15 13:13] LABS: ALBUMIN 3.3 GM/DL (3.2-5.2); ALT/SGPT 20 U/L (12-78); BILIRUBIN,TOTAL 0.7 MG/DL (0.2-1.0); BLOOD UREA NITROGEN 9 MG/DL (7-18); CALCIUM LEVEL 8.9 MG/DL (8.8-10.2); CARBON DIOXIDE LEVEL 29 MEQ/L (21-32); CHLORIDE LEVEL 104 MEQ/L (98-107); GLOMERULAR FILTRATION RATE > 60.0 (>45); GLUCOSE, FASTING 145 MG/DL (70-100); IMMUNOGLOBULIN A 9.4 MG/DL (70-400); IMMUNOGLOBULIN G 1710 MG/DL (681-1648); POTASSIUM SERUM 3.6 MEQ/L (3.5-5.1); SODIUM LEVEL 142 MEQ/L (136-145); TOTAL PROTEIN 7.8 GM/DL (6.4-8.2)
[2019-07-15 13:16] LABS: IMMUNOGLOBULIN M < 5.3 MG/DL (40-230)
[2019-07-16 11:13] LABS: ALBUMIN % 47.8 % (55.8-66.1)
[2019-07-16 11:14] LABS: ALBUMIN 3.73 GM/DL (3.29-5.55); ALPHA-1-GLOBULIN % 3.9 % (2.9-4.9); ALPHA-2-GLOBULINS 0.77 GM/DL (0.42-0.99); ALPHA-2-GLOBULINS % 9.9 % (7.1-11.8); BETA-1-GLOBULINS 0.44 GM/DL (0.28-0.60); BETA-1-GLOBULINS % 5.6 % (4.7-7.2); BETA-2-GLOBULINS 2.46 GM/DL (0.19-0.55); BETA-2-GLOBULINS % 31.5 % (3.2-6.5); GAMMA GLOBULIN % 1.3 % (11.1-18.8)
[2019-07-16 11:19] LABS: IMMUNOTYPING SERUM IGG ABNORMAL (NORMAL); IMMUNOTYPING SERUM KAPPA ABNORMAL (NORMAL)
[2019-07-17 07:40] LABS: BETA 2 MICROGLOBULIN 2.9 mg/L (0.6-2.4); FREE LAMBDA LIGHT CHAINS SERUM 1.6 mg/L (5.7-26.3); KAPPA/LAMBDA RATIO SERUM 16.88 (0.26-1.65)
== END ==
LOC: M LAB 11:22
PROVIDERS: ATTEND Internal Medicine Hematology
DX: C90.00 Multiple myeloma not having achieved remission (principal)

== ENCOUNTER → 2019-08-12 | Outpatient (CLI) | payer MEDICARE, MEDICAID ==
[~2019-08-12] MED LIST changes: +ACYC400T; +AMIT25TA PO; -AMIT25TA17 PO; -COLC0.6T47 PO; +COLC1TAB13 PO; +LACT10SO29 PO; -LACT20EL PO; +MAG400TA PO; -MAGN400T35 PO; -METH-1164 PO; +METH1TAB40 PO; +PANT40TA3 PO; +VITA2000
[2019-08-12 14:44] LABS: BASO % 0.2 % (0.0-1.0); HEMOGLOBIN 11.8 g/dl (12.0-15.5); LYMPH # 0.4 10^3/uL (1.5-5.0); LYMPH % 10.2 % (24.0-44.0); MEAN CORPUSCULAR HEMOGLOBIN 34.2 pg (27.0-33.0); MEAN CORPUSCULAR HGB CONC 33.7 g/dl (32.0-36.5); MEAN CORPUSCULAR VOLUME 101.4 fl (80.0-96.0); NEUTROPHILS # 3.5 10^3/uL (1.5-8.5); NEUTROPHILS % 87.9 % (36.0-66.0); PLATELET COUNT, AUTOMATED 139 10^3/uL (150-450); RED BLOOD COUNT 3.45 10^6/uL (4.00-5.40)
[2019-08-12 16:35] LABS: ALBUMIN 3.4 GM/DL (3.2-5.2); ALT/SGPT 31 U/L (12-78); BILIRUBIN,TOTAL 0.7 MG/DL (0.2-1.0); BLOOD UREA NITROGEN 14 MG/DL (7-18); CALCIUM LEVEL 8.8 MG/DL (8.8-10.2); CARBON DIOXIDE LEVEL 30 MEQ/L (21-32); CHLORIDE LEVEL 100 MEQ/L (98-107); CREATININE FOR GFR 1.18 MG/DL (0.55-1.30); GLOMERULAR FILTRATION RATE 49.1 (>45); GLUCOSE, FASTING 291 MG/DL (70-100); IMMUNOGLOBULIN A 10.3 MG/DL (70-400); IMMUNOGLOBULIN G 1310 MG/DL (681-1648); POTASSIUM SERUM 4.1 MEQ/L (3.5-5.1); SODIUM LEVEL 141 MEQ/L (136-145); TOTAL PROTEIN 7.4 GM/DL (6.4-8.2)
[2019-08-12 16:36] LABS: IMMUNOGLOBULIN M < 5.3 MG/DL (40-230)
[2019-08-14 05:07] LABS: BETA 2 MICROGLOBULIN 1.9 mg/L (0.6-2.4); FREE KAPPA LIGHT CHAINS SERUM 23.9 mg/L (3.3-19.4); FREE LAMBDA LIGHT CHAINS SERUM 1.9 mg/L (5.7-26.3); KAPPA/LAMBDA RATIO SERUM 12.58 (0.26-1.65)
== END ==
LOC: M LAB 14:10
PROVIDERS: ATTEND Internal Medicine Hematology
DX: C90.00 Multiple myeloma not having achieved remission (principal)

== ENCOUNTER → 2019-08-27 | Outpatient (CLI) | payer MEDICARE, MEDICAID ==
[~2019-08-27] MED LIST changes: -LACT10SO29 PO; +LACT20EL PO; +PROC10TA4 PO
[2019-08-27 16:11] LABS: EOS % 0.2 % (0.0-3.0); HEMATOCRIT 35.7 % (36.0-47.0); HEMOGLOBIN 12.1 g/dl (12.0-15.5); LYMPH # 0.7 10^3/uL (1.5-5.0); LYMPH % 13.4 % (24.0-44.0); MEAN CORPUSCULAR HEMOGLOBIN 34.5 pg (27.0-33.0); MEAN CORPUSCULAR HGB CONC 33.9 g/dl (32.0-36.5); MEAN CORPUSCULAR VOLUME 101.7 fl (80.0-96.0); MONO # 0.6 10^3/uL (0.0-0.8); MONO % 11.6 % (0.0-5.0); NEUTROPHILS % 73.9 % (36.0-66.0); PLATELET COUNT, AUTOMATED 120 10^3/uL (150-450); RED BLOOD COUNT 3.51 10^6/uL (4.00-5.40); WHITE BLOOD COUNT 5.4 10^3/uL (4.0-10.0)
[2019-08-27 16:25] LABS: APPEARANCE, URINE CLEAR (CLEAR); BACTERIA, URINE AUTO NEGATIVE (NEGATIVE); BILIRUBIN, URINE AUTO NEGATIVE (NEGATIVE); BLOOD, URINE BLOOD NEGATIVE (NEGATIVE); COLOR, URINE STRAW (YELLOW); GLUCOSE, URINE (UA) AUTO 3+ mg/dL (NEGATIVE); KETONE, URINE AUTO NEGATIVE (NEGATIVE); LEUKOCYTE ESTERASE, URINE AUTO NEGATIVE (NEGATIVE); NITRITE, URINE AUTO NEGATIVE (NEGATIVE); PROTEIN, URINE AUTO NEGATIVE (NEGATIVE); RBC, URINE AUTO 1 /HPF (0-3); SPECIFIC GRAVITY URINE AUTO 1.006 (1.002-1.035); SQUAMOUS EPITHELIAL CELL UR AU 0 /HPF (0-6); UROBILINOGEN, URINE AUTO 0.2 mg/dL (0.0-2.0); WBC, URINE AUTO 1 /HPF (0-3)
[2019-08-27 16:39] LABS: ALBUMIN 3.2 GM/DL (3.2-5.2); ALT/SGPT 28 U/L (12-78); BILIRUBIN,TOTAL 0.4 MG/DL (0.2-1.0); BLOOD UREA NITROGEN 31 MG/DL (7-18); CALCIUM LEVEL 8.2 MG/DL (8.8-10.2); CARBON DIOXIDE LEVEL 30 MEQ/L (21-32); CHLORIDE LEVEL 98 MEQ/L (98-107); CREATININE FOR GFR 1.09 MG/DL (0.55-1.30); GLOMERULAR FILTRATION RATE 53.8 (>45); GLUCOSE, FASTING 340 MG/DL (70-100); POTASSIUM SERUM 3.3 MEQ/L (3.5-5.1); SODIUM LEVEL 139 MEQ/L (136-145); TOTAL PROTEIN 6.8 GM/DL (6.4-8.2)
[2019-08-30 11:09] LABS: ALBUMIN % 57.5 % (55.8-66.1)
[2019-08-30 11:11] LABS: ALBUMIN 3.91 GM/DL (3.29-5.55); ALPHA-1-GLOBULIN % 3.7 % (2.9-4.9); ALPHA-1-GLOBULINS 0.25 GM/DL (0.17-0.41); ALPHA-2-GLOBULINS 0.83 GM/DL (0.42-0.99); ALPHA-2-GLOBULINS % 12.2 % (7.1-11.8); BETA-1-GLOBULINS % 5.9 % (4.7-7.2); BETA-2-GLOBULINS % 19.1 % (3.2-6.5); GAMMA GLOBULIN % 1.6 % (11.1-18.8); GAMMA GLOBULINS 0.11 GM/DL (0.65-1.58)
[2019-08-30 11:28] LABS: IMMUNOTYPING SERUM IGG ABNORMAL (NORMAL); IMMUNOTYPING SERUM KAPPA ABNORMAL (NORMAL)
== END ==
LOC: M LAB 15:30
PROVIDERS: ATTEND Internal Medicine Hematology & Oncology
DX: D47.2 Monoclonal gammopathy (principal)

== ENCOUNTER → 2019-09-19 | Outpatient (REF) | payer MEDICARE, MEDICAID ==
[~2019-09-19] MED LIST changes: -ACYC400T; +ATOR80TA59 PO; +CIPR500T3 PO; +CLAR10CA3 PO; +D31000TA2 PO; +DEXA4TA PO; +FLAG500T PO; +HYDR-3363 PO; +HYDR-4570 PO; +METF750T36 PO; +MORP15TA2 PO; +PANT40TA29 PO; -PANT40TA3 PO; +PENT400T47 PO; +PERCOCET PO; -VITA2000; +VITA200031
[2019-09-19 16:09] LABS: HEMOGLOBIN A1c 8.3 %
[2019-09-19 16:14] LABS: CHOLESTEROL LEVEL 270 MG/DL (<200); HDL CHOLESTEROL 54 MG/DL (>40); NON-HDL-C 216 MG/DL; TRIGLYCERIDES LEVEL 871 MG/DL (<150)
[2019-09-19 16:16] LABS: MAU/CREAT RATIO 496.4 MCG/MG (0.0-30.0)
== END ==
LOC: M PLALAB 13:26
PROVIDERS: ATTEND Family Medicine
DX: E11.9 Type 2 diabetes mellitus without complications (principal); E78.2 Mixed hyperlipidemia

== ENCOUNTER → 2019-09-21 | Outpatient (CLI) | payer MEDICARE, MEDICAID | LOC: M LABSMTC 11:31 | PROVIDERS: ATTEND Nurse Practitioner Acute Care | DX: Z11.59 Encounter for screening for other viral diseases (principal) | CPT/HCPCS: C9803; U0003 ==

== ENCOUNTER → 2019-09-25 | Outpatient (CLI) | payer MEDICARE, MEDICAID ==
--- NOTE | 2019-09-25 12:42 | REPMRS ---
Patient History The patient states she has not had a clinical breast exam in over a year. Patient has history of multiple myeloma cancer at age 63. No known family history of cancer. 3D TOMOSYNTHESIS WAS PERFORMED. The [facility] lifetime risk for breast cancer is 5.6%. VOLNANYA DENSITY B. Digital Woman Screen Mammo: September 25, 2019 - Exam #: [id number] Bilateral CC and MLO view(s) were taken. Technologist: Aarceli Cornelius Technologist Prior study comparison: August 22, 2017, bilateral digital woman screen mammo performed at [facility]. December 05, 2014, digital woman screen mammo performed at [facility]. FINDINGS: There are scattered fibroglandular densities. There has been no change in the appearance of the mammogram from the prior studies. There is a mild amount of residual fibroglandular tissue which is fairly symmetric. There is no interval development of dominant mass, architectural distortion, or clustered microcalcification suggestive of malignancy. Assessment: BI-RADS/ACR category 1 mammogram. Negative Mammogram. Recommendation Routine screening mammogram in 1 year (for women over age 40). This mammogram was interpreted with the aid of an FDA-approved computer-aided dectection system. Electronically Signed By: Sae Alfredo MD 09/25/19 [id number]
== END ==
LOC: M WHC 10:26
PROVIDERS: ATTEND Family Medicine
DX: Z12.31 Encounter for screening mammogram for malignant neoplasm of breast (principal)

== ENCOUNTER → 2019-09-29 | Outpatient (CLI) | payer MEDICARE, MEDICAID | LOC: M LABSMTC 08:58 | PROVIDERS: ATTEND Anesthesiology | DX: Z01.818 Encounter for other preprocedural examination (principal); Z11.59 Encounter for screening for other viral diseases; Z20.828 Contact with and (suspected) exposure to other viral communicable diseases | CPT/HCPCS: C9803; U0003 ==

== ENCOUNTER 2019-09-30 15:30 | Emergency (ER) | payer MEDICARE, MEDICAID ==
[~2019-09-30] VITALS: Ht 165.1 cm; Wt 88.0 kg
[~2019-09-30 15:30] MED LIST changes: -CIPR500T3 PO; -CLAR10CA3 PO; -D31000TA2 PO; -DEXA4TA PO; -FLAG500T PO; -HYDR-3363 PO; -MORP15TA2 PO; -PERCOCET PO
[2019-09-30] MEDS ORDERED: ALLO100T PO (15:43)
[2019-09-30] MEDS ORDERED: hydrALAZINE 20MG/ML 1ML VIAL (J0360 PER 20MG) IV ONE (17:45)
[2019-09-30] MEDS ORDERED: TORSEMIDE 100 MG TAB PO ONE (17:45)
[2019-09-30 17:52] VITALS: BP 182/86
[2019-09-30] MEDS ORDERED: TORS100T PO (18:21)
[2019-09-30] MEDS ORDERED: ACYC400T PO (18:41)
[2019-09-30 18:45] VITALS: BP 188/84
[2019-10-02] MEDS ORDERED: D31000TA2 PO (15:39)
[2019-12-23] MEDS ORDERED: POMA2CAP PO (21:14)
[2019-12-27] MEDS ORDERED: TRAM50TA2 PO (14:51)
[2019-12-30] MEDS ORDERED: CLAR10CA3 PO (14:50)
[2019-12-30] MEDS ORDERED: DEXA4TA PO (14:50)
[2020-01-13] MEDS ORDERED: MORP15TA2 PO (09:26)
[2020-01-13] MEDS ORDERED: MAGN400C2 PO (09:26)
[2020-01-16] MEDS ORDERED: POMA2CAP PO (12:34)
== END 2019-09-30 19:06 | disposition home or self-care (01) ==
LOC: M ED 15:30
DX: I10 Essential (primary) hypertension (principal); C90.00 Multiple myeloma not having achieved remission; E11.9 Type 2 diabetes mellitus without complications; K21.9 Gastro-esophageal reflux disease without esophagitis; E66.9 Obesity, unspecified; Z79.899 Other long term (current) drug therapy; Z79.82 Long term (current) use of aspirin; Z88.0 Allergy status to penicillin; Z88.1 Allergy status to other antibiotic agents; Z88.5 Allergy status to narcotic agent; Z88.8 Allergy status to other drugs, medicaments and biological substances

== ENCOUNTER → 2019-10-02 | Outpatient (CLI) | payer MEDICARE, MEDICAID ==
[~2019-10-02] MED LIST changes: +CIPR500T3 PO; +CLAR10CA3 PO; +D31000TA2 PO; +DEXA4TA PO; +FLAG500T PO; +HYDR-3363 PO; +MORP15TA2 PO; +PERCOCET PO
--- NOTE | 2019-10-02 13:55 | PFTRPT ---
Site: [facility], [address] [place], [address] ID: [id number] Name: JEREMI MALLOY Visit Date: 10/02/2019 Second ID: [id number] Referring Doctor: Jil Nunes M.D. Reviewing Doctor: Aki Saavedra MD Drug Room Operator: Charu Ayala Age: 63 : 1955 Sex: Female Race: Height: 65.00 Inches Weight: 181.00 Lbs BSA: 1.90 Order IDs: [id number] Requested Test(s): <RESP-PFT.DLCO> Diagnosis: Z52.011, C90.00 test meet the ATS standards for acceptability and repeatability. Review Status: Not Reviewed Pre-Bronch Post-Bronch Pred Actual %Pred Actual %Chng SPIROMETRY FVC (L) 3.29 2.69 81 FEV1 (L) 2.52 2.29 90 FEV1/FVC (%) 77 85 110 FEF 25% (L/sec) 4.97 5.62 113 FEF 50% (L/sec) 3.49 3.91 112 FEF 75% (L/sec) 1.10 1.13 103 FEF 25-75% (L/sec) 2.20 2.95 133 FEF Max (L/sec) 6.16 5.75 93 FIVC (L) 2.42 FIF 50% (L/sec) 3.52 2.05 58 FIF Max (L/sec) 2.11 MVV (L/min) 91 57 62 Expiratory Time (sec) 7.75 Back Extrap Vol (L) 0.13 Time To FEFmax (sec) 0.115 LUNG VOLUMES SVC (L) 3.07 2.51 81 IC (L) 2.24 1.75 78 ERV (L) 0.83 0.76 91 TGV (L) 2.96 2.53 85 RV (Pleth) (L) 2.13 1.77 83 TLC (Pleth) (L) 5.20 4.28 82 RV/TLC (Pleth) (%) 41 41 101 DIFFUSION DLCOunc (ml/min/mmHg) 21.50 13.53 62 DLCOcor (ml/min/mmHg) 21.50 13.25 61 DL/VA (ml/min/mmHg/L) 4.13 3.62 87 VA (L) 5.20 3.66 70 BHT (sec) 12.13 IVC (L) 2.30 TLC (SB) (L) 3.81 AIRWAYS RESISTANCE Raw (cmH2O/L/s) 1.86 0.77 41 Gaw (L/s/cmH2O) 1.03 1.34 130 sRaw (cmH2O*s) 4.76 1.85 38 sGaw (1/cmH2O*s) 0.20 0.55 277 BLOOD GASES Hgb (gm/dL) 14.1
--- NOTE | 2019-10-03 08:15 | ECHO ---
DATE OF STUDY: 10/02/2019 REFERRING PHYSICIAN: Dr. Jil Nunes HEIGHT: 65 inches. WEIGHT: 181 pounds. INDICATION: Chemotherapy drugs that may affect the heart. 2-D MEASUREMENTS: Ventricular septum: 1.15 cm Posterior wall: 1.05 cm Left ventricle diastole: 3.4 cm Aortic root: 3.1 cm Left atrium: 3.1 cm Aortic annulus: 2.1 cm Inferior vena cava: 1.2 cm DOPPLER MEASUREMENTS: Mild aortic regurgitation No aortic stenosis Aortic valve velocity: 232 cm/sec LVOT velocity: 90.1 cm/sec LVOT VTI: 18.8 cm Very mild mitral regurgitation Mitral E velocity: 59.6 cm/sec Mitral A velocity: 114 cm/sec Mitral deceleration time: 298 ms Very mild tricuspid regurgitation Very mild pulmonic regurgitation MITRAL ANNULAR TISSUE DOPPLER: E prime septal: 3.7 cm/sec E prime lateral: 5.1 cm/sec DESCRIPTION: The rhythm was sinus. Image quality was fair. This was a 2-D, M-mode, color flow Doppler and pulse wave Doppler examination and included mitral annular tissue Doppler. CONCLUSIONS: 1. Normal left ventricle internal dimensions and wall thickness. Normal regional LV wall motion and wall thickening. Normal LV systolic function. LVEF 70% by visual estimate. Grade 1 LV diastolic dysfunction (impaired relaxation filling pattern). 2. No pericardial effusion. 3. Moderate aortic valve sclerosis of a 3-cuspid aortic valve. Mild aortic regurgitation. No aortic stenosis. 4. Moderate mitral annular calcification. Very mild mitral regurgitation. No mitral stenosis. 5. Otherwise normal appearing echocardiogram Doppler findings.
== END ==
LOC: M CARPUL 11:44
PROVIDERS: ATTEND Internal Medicine
DX: Z52.011 Autologous donor, stem cells (principal); C90.00 Multiple myeloma not having achieved remission; Z98.890 Other specified postprocedural states

== ENCOUNTER 2019-11-25 09:34 | Inpatient (IN) | payer MEDICARE, MEDICAID ==
[~2019-11-25] VITALS: Ht 165.1 cm; Wt 87.4 kg
[2019-11-25] VITALS (7 sets, daily range): BP systolic 109–146; BP diastolic 51–75
[2019-11-25] MEDS: ASCORBIC ACID 500 MG TAB PO SCH (09:00)
[2019-11-25] MEDS: VITAMIN D 1,000 INTERNATIONAL UNITS TABLET PO SCH (09:00)
[~2019-11-25 09:34] MED LIST changes: -CIPR500T3 PO; -CLAR10CA3 PO; -DEXA4TA PO; -FLAG500T PO; -HYDR-3363 PO; -MORP15TA2 PO; -PERCOCET PO
[2019-11-25] MEDS ORDERED: NS 1,000 ML IV ONE ×2 (10:00→11:30)
--- NOTE | 2019-11-25 10:24 | REPVR ---
PROCEDURE INFORMATION: Exam: CT Head Without Contrast Exam date and time: 11/25/2019 9:48 AM Age: 63 years old Clinical indication: Syncope and collapse TECHNIQUE: Imaging protocol: Computed tomography of the head without contrast. Radiation optimization: All CT scans at this facility use at least one of these dose optimization techniques: automated exposure control; mA and/or kV adjustment per patient size (includes targeted exams where dose is matched to clinical indication); or iterative reconstruction. COMPARISON: CT Head without contrast 04/07/2019 3:01 PM FINDINGS: Brain: Normal. No hemorrhage. Unremarkable white matter. No mass effect. Ventricles: No ventriculomegaly. Bones/joints: Unremarkable. No acute fracture. Paranasal sinuses: Visualized sinuses are unremarkable. No fluid levels. Mastoid air cells: Visualized mastoid air cells are well aerated. Soft tissues: Unremarkable. IMPRESSION: No acute intracranial abnormality. Electronically signed by: Abida Bravo On 11/25/2019 10:24:36 AM
--- NOTE | 2019-11-25 10:24 | REPVR ---
PROCEDURE INFORMATION: Exam: XR Chest, 1 View Exam date and time: 11/25/2019 9:48 AM Age: 63 years old Clinical indication: Other: Syncope; Additional info: Syncope/near-syncope TECHNIQUE: Imaging protocol: XR of the chest Views: 1 view. COMPARISON: CR Ribs uni W-PA CHEST ONLY 07/15/2019 1:10 PM FINDINGS: Lungs: There are streaky left basilar opacities, suggestive of atelectasis. Pleural space: Unremarkable. No pleural effusion. No pneumothorax. Heart/Mediastinum: Unremarkable. No cardiomegaly. Bones/joints: Unremarkable. IMPRESSION: No acute abnormality. Electronically signed by: Abida Bravo On 11/25/2019 10:23:49 AM
[2019-11-25 10:36] LABS: VENOUS BASE EXCESS -0.4 (-2.0-2.0); VENOUS O2 SATURATION 67.7 % (60.0-80.0); VENOUS PARTIAL PRESSURE CO2 50.3 mmHg (38.0-50.0); VENOUS PARTIAL PRESSURE O2 40.7 mmHg (30.0-50.0); VENOUS PH 7.332 UNITS (7.330-7.430); VENOUS STANDARD HCO3 23.6 MEQ/L; VENOUS TOTAL CO2 27.6 MEQ/L (24.0-28.0)
[2019-11-25 10:48] LABS: BASO % 0.2 % (0.0-1.0); EOS % 0.6 % (0.0-3.0); HEMATOCRIT 32.1 % (36.0-47.0); HEMOGLOBIN 10.6 g/dl (12.0-15.5); LYMPH % 19.1 % (24.0-44.0); MEAN CORPUSCULAR HEMOGLOBIN 34.2 pg (27.0-33.0); MEAN CORPUSCULAR VOLUME 103.5 fl (80.0-96.0); MONO # 0.4 10^3/uL (0.0-0.8); MONO % 7.1 % (0.0-5.0); NEUTROPHILS # 3.8 10^3/uL (1.5-8.5); NEUTROPHILS % 71.9 % (36.0-66.0); WHITE BLOOD COUNT 5.3 10^3/uL (4.0-10.0)
[2019-11-25 10:58] LABS: INR 0.88; PROTHROMBIN TIME 12.1 SECONDS (11.8-14.0)
[2019-11-25] MEDS: METOPROLOL 5 MG/5 ML VIAL IV SCH ×3 (11:00→11:10)
[2019-11-25] MEDS ORDERED: POMA2CAP PO (11:13)
[2019-11-25] MEDS ORDERED: TRAM50TA2 PO (11:13)
[2019-11-25] MEDS ORDERED: LOSA100T50 PO (11:13)
[2019-11-25] MEDS ORDERED: TORS100T PO (11:13)
[2019-11-25] MEDS ORDERED: HYDR-3363 PO (11:13)
[2019-11-25 11:20] LABS: BLOOD UREA NITROGEN 33 MG/DL (7-18); CALCIUM LEVEL 8.4 MG/DL (8.8-10.2); CARBON DIOXIDE LEVEL 27 MEQ/L (21-32); CHLORIDE LEVEL 101 MEQ/L (98-107); CK-MB VALUE MASS 1.6 NG/ML (<3.6); CPK CREATINE PHOSPHOKINASE 268 U/L (26-192); CREATININE FOR GFR 0.83 MG/DL (0.55-1.30); FREE T4 1.49 NG/DL (0.76-1.46); GLOMERULAR FILTRATION RATE > 60.0 (>45); GLUCOSE, FASTING 150 MG/DL (70-100); MAGNESIUM LEVEL 1.9 MG/DL (1.8-2.4); POTASSIUM SERUM 2.9 MEQ/L (3.5-5.1); SODIUM LEVEL 138 MEQ/L (136-145); TROPONIN I < 0.02 NG/ML (< 0.10)
[2019-11-25 11:27] LABS: PLATELET COUNT, AUTOMATED 58 10^3/uL (150-450)
[2019-11-25] MEDS ORDERED: DIGOXIN INJ 0.5 MG/2 ML AMP (J1160) IV STA ×2 (11:29→15:05)
[2019-11-25] MEDS ORDERED: NS 500 ML IV ONE (11:30)
[2019-11-25] MEDS ORDERED: ISOVUE-370 76% 100ML VIAL As Ordered ONE (12:26)
--- NOTE | 2019-11-25 14:07 | REPVR ---
PROCEDURE INFORMATION: Exam: CT Abdomen And Pelvis With Contrast Exam date and time: 11/25/2019 1:46 PM Age: 63 years old Clinical indication: Abdominal pain; Generalized; Additional info: Abd pain/diarrhea TECHNIQUE: Imaging protocol: Computed tomography of the abdomen and pelvis with intravenous contrast. Radiation optimization: All CT scans at this facility use at least one of these dose optimization techniques: automated exposure control; mA and/or kV adjustment per patient size (includes targeted exams where dose is matched to clinical indication); or iterative reconstruction. Contrast material: ISOVUE 370; Contrast volume: 100 ml; Contrast route: INTRAVENOUS (IV); COMPARISON: SR CT ABD/PEL W/IV CONTRAST ONLY 07/15/2019 2:30 PM FINDINGS: Mediastinal space: There is a small hiatal hernia. Liver: There is diffuse fatty infiltration of the liver. Gallbladder and bile ducts: Normal. No calcified stones. No ductal dilation. Pancreas: Normal. No ductal dilation. Spleen: Normal. No splenomegaly. Adrenals: Normal. No mass. Kidneys and ureters: Normal. No hydronephrosis. Stomach and bowel: There is diverticulosis of the descending and sigmoid segments of the colon. There is focal diverticulitis involving the mid sigmoid colon with a focal 4.4 x 1.8 cm gas containing fluid collection, worrisome for abscess. Abscess collection appears to extend into the left pelvis and along the posterior bladder wall. Appendix: No evidence of appendicitis. Intraperitoneal space: Unremarkable. No free air. No significant fluid collection. Vasculature: Unremarkable. No abdominal aortic aneurysm. Lymph nodes: Unremarkable. No enlarged lymph nodes. Bladder: Unremarkable as visualized. Reproductive: Unremarkable as visualized. Bones/joints: Unremarkable. No acute fracture. Soft tissues: Unremarkable. IMPRESSION: Sigmoid diverticulitis with apparent associated gas containing fluid collection, compatible with abscess. Electronically signed by: Abida Bravo On 11/25/2019 14:07:14 PM
[2019-11-25] MEDS ORDERED: ENTER DRUG NAME HERE (PATIENT'S OWN MED) PO SCH (14:15)
[2019-11-25] MEDS ORDERED: PROCHLORPERAZINE 5 MG TAB (S0183) PO PRN (14:15)
[2019-11-25] MEDS ORDERED: COLCHICINE 0.6 MG TAB PO PRN (14:15)
--- NOTE | 2019-11-25 14:22 | HPEPDOC ---
[facility] Medical History & Physical Date of Admission Nov 25, 2019 Date of Service: Nov 25, 2019 Primary Care Physician: TWYLA ROTH MD Attending Physician: BA SUNG MD History and Physical CHIEF COMPLAINT: >Uncontrolled diarrhea > Dehydration >Fall HISTORY OF PRESENT ILLNESS: Patient is a 64-year-old female with a past medical history of multiple myeloma getting her chemotherapy (Pomalidomide with dexamethasone ) her last dose was on Monday when she was discovered to have hypokalemia. Soon after she was given 2 doses of 'K runs '. A day afteron , she started with profuse diarrhea about 10-15 times a day . The patient stated that the stools were foul-smelling ,with no blood or mucus. Last night as the patient went from Bedroom to her bathroom she felt dizzy and fell down on her back when she was brought to the emergency department. She was extremely dehydrated in the ED and a bolus of fluid was given to her immediately. On EKG the patient was found to have atrial fibrillation for which she was given a bolus of diltiazem 0.25 mg her blood pressure kept falling so she was given another 2 L of normal saline after which her blood pressure stabilized. PAST MEDICAL HISTORY: 1. Multiple myeloma. February 2018 2. Rheumatoid arthritis. 3. COPD 4. fibromyalgia 5 hypertension 6 PTSD PAST SURGICAL HISTORY: 1. Ventral hernia repair in 2015. 2. Cholecystectomy in 2002. 3. Hysterectomy. 4. Partial thyroidectomy 5. cystoscopy 6 endoscopic polypectomy of large intestine SOCIAL HISTORY: Marital status: Tobacco use: Never smoker ETOH: Occasional drinker Illicit drug use: Never used FAMILY HISTORY: Family history prevalent for atrial fibrillation ALLERGIES: Please see below. REVIEW OF SYSTEMS: CONSTITUTIONAL: Denies any fever nausea vomiting weight loss. HEENT: Denies any vision changes any discharge from eyes nose ears. CARDIOVASCULAR: Denies any chest pain, orthopnea shortness of breath. RESPIRATORY: Denies any cough or pleuritic chest pain. GASTROINTESTINAL: Reports diarrhea and severe abdominal pain in the lower abdominal quadrants Denies constipation nausea vomiting. GENITOURINARY: No difficulty urination and burning micturition. SKIN: No rashes scars cuts. MUSCULOSKELETAL: Reports joint pain, chronic lumbar back pain. NEUROLOGICAL: Denies paresthesias numbness tingling of arms and feet. PSYCHIATRIC: Denies sadness or depression anxiety. ENDOCRINE: And denies polydipsia polyuria. HEMATOLOGIC/LYMPHATIC: Denies increased bruising. HOME MEDICATIONS: Please see below. PHYSICAL EXAMINATION: VITAL SIGNS: See below GENERAL APPEARANCE: Patient looks little distressed lying in her bed complaining of lower abdominal pain and back pain. HEENT: There's no cyanosis no pallor no conjunctival injection no discharge from eyes ears nose. CARDIOVASCULAR: S1-S2 no murmurs no gallops no rubs. LUNGS: Clear to auscultation bilaterally no wheezes or crackles or rhonchi. ABDOMEN: Soft nondistended, tender in the lower abdominal quadrants. MUSCULOSKELETAL: Patient reports severe pain in the lower back can't even move. There is tenderness in the left hip. Range of motion not able to appreciate due to pain . EXTREMITIES: Normal good quality pulse in all extremities NEUROLOGICAL: Sensations intact motor strength not able to appreciate due to pain. PSYCHIATRIC: Patient is anxious with normal affect. LABORATORY DATA: See below. IMAGING: CT ABDOMEN/PELVIS shows: Sigmoid diverticulitis with apparent associated gas containing fluid collection, compatible with abscess. On CT spine: 1. Mild degenerative disc disease. No stenosis. 2. Inflammatory changes noted within the mesenteric fat of the lower abdomen/pelvis with findings suggestive of abscess. Multiple colonic diverticula noted in a neighboring bowel loop. This is very suggestive of diverticulitis with abscess. CT scan abdomen pelvis might 1.3 cm simple cyst upper pole left kidney. be considered MICROBIOLOGY: Please see below. ASSESSMENT/PLAN: 1.Dehydration: secondary to profuse Diarrhea: Patient's GI panel sent Stool sent for occult blood testing Patient was given normal saline for rehydration 2. Atrial fibrillation likely secondary to hypotension : She was given first dose of digoxin 0.25 mg in the ED for her atrial fibrillation another dose of 0.25 mg digoxin was given for a heart rate of 130 at 3 pm today. Pt is still in Atrial Fibrillation. 3. Lower abdominal pain: On CT scan the patient was found to have a sigmoid diverticulitis with an abscess with pericolic fluid collection. Interventional radiology was consulted- on reviewing her CAT scan the said they won't be able to get to the abscess to drain it, through interventional techniques because of limited access. Surgery was consulted appreciate recommendations Patient is kept - nothing by mouth Pt was given Toradol as needed for pain. 4. Multiple myeloma -Patient's chemotherapy is kept on hold until she stabilizes. 5. Lower back pain as a result of the fall: -CT head ruled out any head injury/Bleed. -Patient started on pain medication -Toradol as needed. DVT prophylaxis: SCD's and ASHLYN. Vital Signs Vital Signs Date Time Temp Pulse Resp B/P (MAP) Pulse Ox O2 Delivery O2 Flow Rate FiO2 11/25/19 11:55 132 20 90/70 (77) 97 Room Air 11/25/19 11:34 98.4 Laboratory Data Labs 24H Laboratory Tests 2 11/25/19 10:25: Immature Granulocyte % (Auto) 1.1, Neutrophils (%) (Auto) 71.9H, Lymphocytes (%) (Auto) 19.1L, Monocytes (%) (Auto) 7.1H, Eosinophils (%) (Auto) 0.6, Basophils (%) (Auto) 0.2, Neutrophils # (Auto) 3.8, Lymphocytes # (Auto) 1.0L, Monocytes # (Auto) 0.4, Eosinophils # (Auto) 0.0, Basophils # (Auto) 0.0, Nucleated Red Blood Cells % (auto) 0.0, Immature Platelet Fraction 14.2H, Prothrombin Time 12.1, Prothromb Time International Ratio 0.88, Blood Gas Bicarbonate Standard 23.6, Venous Blood pH 7.332, Venous Blood Partial Pressure CO2 50.3H, Venous Blood Partial Pressure O2 40.7, Venous Blood Total Carbon Dioxide 27.6, Venous Blood HCO3 26.0, Venous Blood Oxygen Saturation 67.7, Venous Blood Base Excess - 0.4, Anion Gap 10, Glomerular Filtration Rate > 60.0, Lactic Acid Level 2.5*H, Calcium Level 8.4L, Magnesium Level 1.9, Total Creatine Kinase 268H, Creatine Kinase MB 1.6, Creatine Kinase MB Relative Index 0.60, Troponin I < 0.02, Thyroid Stimulating Hormone (TSH) 1.730, Free Thyroxine 1.49H CBC/BMP Laboratory Tests 11/25/19 10:25 Microbiology Microbiology 11/25/19 Blood Culture, Received Pending 11/25/19 Blood Culture, Received Pending Home Medications Scheduled Allopurinol (Allopurinol) 100 Mg Tablet, 100 MG PO QHS Ascorbic Acid (Vitamin C) 500 Mg Capsule, 500 MG PO DAILY Aspirin (Aspirin) 81 Mg Chw, 81 MG PO DAILY Atorvastatin Calcium (Atorvastatin Calcium) 80 Mg Tablet, 80 MG PO DAILY Cholecalciferol (Vitamin D3) (Vitamin D3) 1,000 Unit Tablet, 2,000 UNITS PO DAILY Ciprofloxacin HCl (Ciprofloxacin HCl) 500 Mg Tablet, 500 MG PO BID Losartan Potassium (Losartan Potassium) 100 Mg Tablet, 100 MG PO DAILY Metronidazole (Flagyl) 500 Mg Tablet, 500 MG PO Q8H FOR 10 DAYS Clayton-3 Fatty Acids/Fish Oil (Fish Oil 1,000 mg Capsule) 1 Each Capsule, 1,000 MG PO DAILY Pantoprazole Sodium (Pantoprazole Sodium) 40 Mg Tablet.dr, 40 MG PO BID Pomalidomide (Pomalyst) 2 Mg Capsule, 2 MG PO ASDIRECTED 2MG DAILY FOR 21 DAYS, OFF FOR 7 DAYS THEN RESUME. PT CURRENTLY ON DAY 7 Potassium Chloride (Potassium Chloride) 10 Meq Tab.er.prt, 40 MEQ PO BID Torsemide (Torsemide) 100 Mg Tablet, 100 MG PO DAILY Vitamin B Complex (Vitamin B Complex) 1 Each Tablet, 1 TAB PO DAILY Scheduled PRN Colchicine (Colchicine) 0.6 Mg Tablet, 0.6 MG PO DAILY PRN for GOUT PAIN Docusate Sodium (Docusate Sodium) 100 Mg Capsule, 100 MG PO QHS PRN for CONSTIPATION Hydroxyzine HCl (Hydroxyzine HCl) 25 Mg Tablet, 25 MG PO DAILY PRN for ITCHING Loperamide HCl (Loperamide) 2 Mg Capsule, 2 CAP PO Q6H PRN for DIARRHEA Oxycodone/Acetaminophen (Oxycodone-Acetaminophen 5-325) 1 Each Tablet, 1 TAB PO Q4HP PRN for MILD/MODERATE PAIN (PS 1-7) Prochlorperazine Maleate (Prochlorperazine Maleate) 10 Mg Tablet, 10 MG PO Q6H PRN for NAUSEA OR VOMITING Tramadol HCl (Tramadol HCl) 50 Mg Tablet, 50 MG PO Q6H PRN for PAIN Allergies Coded Allergies: Penicillins (Verified Allergy, Severe, THROAT SWELLING/RASH, 11/27/19) Quinolones (Verified Allergy, Intermediate, hives, 10/02/19) carisoprodol (Verified Allergy, Intermediate, hives, 10/02/19) ciprofloxacin (Verified Allergy, Intermediate, SCRATCHY THROAT, 11/27/19) doxycycline (Verified Allergy, Intermediate, HIVES, 11/27/19) gabapentin (Verified Allergy, Intermediate, hives, 10/02/19) spironolactone (Verified Allergy, Intermediate, hives, 10/02/19) amitriptyline (Verified Adverse Reaction, Intermediate, "PASS OUT", 11/27/19) ibuprofen (Verified Adverse Reaction, Intermediate, renal issues, 11/27/19) metformin (Verified Adverse Reaction, Intermediate, DIARRHEA, 11/25/19) A-FIB/CHADSVASC A-FIB History Current/History of A-Fib/PAF?: Yes Current PO Anticoag Therapy: Yes GME ATTESTATION GME ATTESTATION My faculty preceptor for this patient encounter was physically present during the encounter and was fully available. All aspects of the patient interview, examination, medical decision making process, and medical care plan development were reviewed and approved by the faculty preceptor. The faculty preceptor is aware and concurs with the plan as stated in the body of this note and will attest to such by his/her cosignature. ATTENDING NOTE Pt was seen and examined by me personally with the residents/students. Agree with the above assessment plan. Kaleb Sauceda MD Nov 25, 2019 13:50 BA SUNG MD Dec 06, 2019 10:28
--- NOTE | 2019-11-25 14:44 | REPVR ---
PROCEDURE INFORMATION: Exam: CT Lumbar Spine Without Contrast Exam date and time: 11/25/2019 2:24 PM Age: 63 years old Clinical indication: Injury or trauma; Fall; Initial encounter; Blunt trauma (contusions or hematomas); Additional info: Fall, PT reported pain in back TECHNIQUE: Imaging protocol: Computed tomography images of the lumbar spine without contrast. Radiation optimization: All CT scans at this facility use at least one of these dose optimization techniques: automated exposure control; mA and/or kV adjustment per patient size (includes targeted exams where dose is matched to clinical indication); or iterative reconstruction. COMPARISON: No relevant prior studies available. FINDINGS: Vertebrae: No acute fracture. Normal alignment. L1-L2: No significant disc protrusion. No severe spinal canal stenosis. No significant neural foraminal narrowing. L2-L3: No significant disc protrusion. No spinal canal stenosis. No neural foraminal narrowing. L3-L4: No significant disc protrusion. No severe spinal canal stenosis. No significant neural foraminal narrowing. L4-L5: No significant disc protrusion. Mild facet arthropathy. Circumferential annulus bulge. No severe spinal canal stenosis. No significant neural foraminal narrowing. L5-S1: No significant disc protrusion. Circumferential annulus bulge. Mild hypertrophic facet arthropathy. No severe spinal canal stenosis. No significant neural foraminal narrowing. Soft tissues: Inflammatory changes noted within the pelvis surrounding the colon and several diverticula. An air-fluid collection with surrounding inflammatory change within the pelvis suggests abscess measuring 2 by 4.8 by approximately 2.4 cm. IMPRESSION: 1. Mild degenerative disc disease. No stenosis. 2. Inflammatory changes noted within the mesenteric fat of the lower abdomen/pelvis with findings suggestive of abscess. Multiple colonic diverticula noted in a neighboring bowel loop. This is very suggestive of diverticulitis with abscess. CT scan abdomen pelvis might 1.3 cm simple cyst upper pole left kidney. be considered Electronically signed by: Alisia Spears On 11/25/2019 14:44:48 PM
[2019-11-25] MEDS ORDERED: metroNIDAZOLE 500 MG in IV 1 EA IV SCH (15:00)
[2019-11-25 15:10] LABS: ABG BASE EXCESS -0.5 (-2.0-2.0); ABG O2 SATURATION 94.8 % (95.0-99.0); ABG PARTIAL PRESSURE CO2 38.5 mmHg (35.0-45.0); ABG PARTIAL PRESSURE O2 78.1 mmHg (75.0-100.0); ABG STANDARD HCO3 24.1 MEQ/L (22.0-26.0); ABG TOTAL CO2 25.1 MEQ/L (23.0-31.0); ABG pH (ARTERIAL) 7.412 UNITS (7.350-7.450)
[2019-11-25] MEDS: NS 1,000 ML IV SCH (15:14)
[2019-11-25] MEDS: MEROPENEM INJ 1 GM in IV 1 EA IV SCH (16:08)
[2019-11-25 16:16] LABS: HEMATOCRIT 33.6 % (36.0-47.0); HEMOGLOBIN 10.9 g/dl (12.0-15.5); MEAN CORPUSCULAR HEMOGLOBIN 33.6 pg (27.0-33.0); MEAN CORPUSCULAR HGB CONC 32.4 g/dl (32.0-36.5); MEAN CORPUSCULAR VOLUME 103.7 fl (80.0-96.0); RED BLOOD COUNT 3.24 10^6/uL (4.00-5.40); WHITE BLOOD COUNT 4.6 10^3/uL (4.0-10.0)
[2019-11-25 16:22] LABS: PLATELET COUNT, AUTOMATED 56 10^3/uL (150-450)
[2019-11-25 16:41] LABS: BLOOD UREA NITROGEN 24 MG/DL (7-18); CALCIUM LEVEL 7.5 MG/DL (8.8-10.2); CARBON DIOXIDE LEVEL 24 MEQ/L (21-32); CHLORIDE LEVEL 109 MEQ/L (98-107); CREATININE FOR GFR 0.87 MG/DL (0.55-1.30); GLOMERULAR FILTRATION RATE > 60.0 (>45); GLUCOSE, FASTING 153 MG/DL (70-100); SODIUM LEVEL 141 MEQ/L (136-145)
[2019-11-25] MEDS: KCL 10MEQ/100ML SWI (KRUN) 10 MEQ in IV 1 EA IV SCH ×4 (17:21→21:06)
[2019-11-25] MEDS: KETOROLAC 30 MG/ML 1ML VIAL IV PRN (17:24)
[2019-11-25 17:45] LABS: ALBUMIN 2.3 GM/DL (3.2-5.2)
[2019-11-25] MEDS: PANTOPRAZOLE 40MG TAB (PROTONIX) PO SCH (20:00)
[2019-11-25] MEDS: allopurinoL 100 MG TAB PO SCH (20:00)
[2019-11-25] MEDS ORDERED: DICYCLOMINE 10 MG CAP PO ONE (22:45)
[2019-11-25 23:34] LABS: BLOOD UREA NITROGEN 23 MG/DL (7-18); CALCIUM LEVEL 7.6 MG/DL (8.8-10.2); CARBON DIOXIDE LEVEL 25 MEQ/L (21-32); CHLORIDE LEVEL 113 MEQ/L (98-107); CREATININE FOR GFR 0.84 MG/DL (0.55-1.30); GLOMERULAR FILTRATION RATE > 60.0 (>45); GLUCOSE, FASTING 118 MG/DL (70-100); PHOSPHORUS LEVEL 3.4 MG/DL (2.5-4.9); POTASSIUM SERUM 3.9 MEQ/L (3.5-5.1); SODIUM LEVEL 144 MEQ/L (136-145)
[2019-11-26] VITALS (11 sets, daily range): BP systolic 104–149; BP diastolic 56–87
[2019-11-26] MEDS: MEROPENEM INJ 1 GM in IV 1 EA IV SCH ×3 (00:02→17:11)
--- NOTE | 2019-11-26 04:38 | CR.PDOC ---
General Surgery Consultation Date of Consultation 11/25/19 History and Physical CONSULT REPORT FOR: hospitalist service REASON FOR CONSULTATION: abdominal pain, acute diverticulitis with abscess HISTORY OF PRESENT ILLNESS: I was asked to consult on Ms. Gooden who is currently admitted in the ICU for a history of syncopal episode secondary to atrial fibrillation with rapid ventricular response. She was found to have evidence for acute diverticulitis with a pericolic abscess behind the bladder and near the iliac vessels which our radiologists say is not able to be pecutaneously drained due to its location. Patient reports that she felt constipated for which he took laxative and by evening was having diarrhea and likewise crampy abdominal pain. She stayed in bed most of the time over the weekend. She reports crampy abdominal pain, mild bloating. She did not eat much solid food but was drinking lots of fluids. She reports loose nonbloody diarrhea. Yesterday morning while ambulating she fainted and thus EMS was called and brought to the emergency room. Looking back at her history, she looks to have had a mild attack of acute diverticulitis back in July where she had a CT scan of the abdomen and pelvis. Marcelino paniagua was treated with outpatient antibiotics. She has had the most recent colonoscopy roughly 2 months ago. She denies any ongoing weight loss. She is currently undergoing treatment for her multiple myeloma. ISTORY OF PRESENT ILLNESS: Patient is a 64-year-old female with a past medical history of multiple myeloma getting her chemotherapy (Pomalidomide with dexamethasone ) her last dose was on Monday when she was discovered to have hypokalemia. Soon after she was given 2 doses of 'K runs '. A day after, she started with profuse diarrhea about 10-15 times a day . The patient stated that the stools were foul-smelling ,with no blood or mucus. Last night as the patient went from Bedroom to her bathroom she felt dizzy and fell down on her back when she was brought to the emergency department. She was extremely dehydrated in the ED and a bolus of fluid was given to her immediately. On EKG the patient was found to have atrial fibrillation for which she was given a bolus of diltiazem 0.25 mg her blood pressure kept falling so she was given another 2 L of normal saline after which her blood pressure stabilized. PAST MEDICAL HISTORY: 1. Multiple myeloma. February 2018 2. Rheumatoid arthritis. 3. COPD 4. fibromyalgia 5 hypertension 6 PTSD PAST SURGICAL HISTORY: 1. Ventral hernia repair in 2016. 2. Cholecystectomy in 2002. 3. Hysterectomy. 4. Partial thyroidectomy 5. cystoscopy 6 endoscopic polypectomy of large intestine SOCIAL HISTORY: Marital status: Tobacco use: Never smoker ETOH: Occasional drinker Illicit drug use: Never used FAMILY HISTORY: Family history prevalent for atrial fibrillation ALLERGIES: Please see below. REVIEW OF SYSTEMS: CONSTITUTIONAL: Denies any fever nausea vomiting weight loss. Reports about a five-day duration of crampy abdominal pain HEENT: Denies any vision changes any discharge from eyes nose ears. CARDIOVASCULAR: Denies any chest pain, orthopnea shortness of breath. RESPIRATORY: Denies any cough or pleuritic chest pain. GASTROINTESTINAL: Reports diarrhea and severe abdominal pain in the lower abdominal quadrants Denies constipation nausea vomiting. GENITOURINARY: Denies any hematuria, nocturia dysuria. MUSCULOSKELETAL: Reports joint pain, chronic lumbar back pain. NEUROLOGICAL: Denies paresthesias numbness tingling of arms and feet. ENDOCRINE: denies polydipsia polyuria. Reports she is diagnosed diabetic but could not tolerate metformin HEMATOLOGIC/LYMPHATIC: Denies increased bruising. Patient is not on any anticoagulants HOME MEDICATIONS: Please see below. PHYSICAL EXAMINATION: LABORATORY DATA: See below. PAST MEDICAL HISTORY: Fairly comfortable ALLERGIES: Please see below. FAMILY HISTORY: . HOME MEDICATIONS: Please see below. PHYSICAL EXAMINATION: VITALS SIGNS: Please see below. GENERAL APPEARANCE: Patient seen well she was in ICU, sitting up on the bed. She looks fairly comfortable. She does not seem to be in any acute distress. She reports some mild crampy abdominal pain. SKIN: Warm and dry. HEENT: [Normocephalic, atraumatic. [place] palpebral conjunctiva, anicteric sclerae. Lips and mucosa appear mildly dry]. NECK: [Supple, no thyromegaly. No obvious jugular venous distention]. LUNGS: [Clear to auscultation bilaterally. No wheezing appreciated]. HEART: Tachycardic and were from low 100s to mid 120s on the monitor, regular rhythm. No murmurs. ABDOMEN: Very protuberant and round abdomen, moderately distended and tympanitic to percussion, mild tenderness on palpation over suprapubic area and less so at the left lower quadrant area. EXTREMITIES: No significant extremity edema ANCILLARIES: . LABORATORY DATA: Please see below. IMAGING STUDIES: IMAGING: CT ABDOMEN/PELVIS shows: Sigmoid diverticulitis with apparent associated gas containing fluid collection, compatible with abscess. On CT spine: 1. Mild degenerative disc disease. No stenosis. 2. Inflammatory changes noted within the mesenteric fat of the lower abdomen/pelvis with findings suggestive of abscess. Multiple colonic diverticula noted in a neighboring bowel loop. This is very suggestive of diverticulitis with abscess. CT scan abdomen pelvis might 1.3 cm simple cyst upper pole left kidney. be considered IMPRESSION AND PLAN: Acute diverticulitis with pericolic abscess (Hinchey stage II) Atrial fibrillation with rapid ventricular response Atrial fibrillation most likely precipitated by the acute diverticulitis which she seems to be experiencing since at least evening. Probably her second bout of diverticulitis that this is her first time that she has been admitted to the hospital. She has had a recent colonoscopy so most likely were not dealing with malignancy. Main issue right now at least surgery-monteiro is how to deal with the pericolic abscess. Currently she seems stable. Her lactic acidosis probably resolved with IV fluid hydration. Suggest continued to try to control her heart rate. Hold anticoagulation for now until we decide if we need to bring her to the operating room. Observe patient course for now. Continue IV antibiotics, NPO for bowel rest. Repeat CT on . If no better will bring to OR for laparoscopic drainage of abscess vs resection (+/-) colostomy Vital Signs Vital Signs Date Time Temp Pulse Resp B/P (MAP) Pulse Ox O2 Delivery O2 Flow Rate FiO2 11/26/19 03:00 66 116/56 (76) 96 Room Air 11/26/19 00:00 97.6 16 I&Os I&O- Last 24 Hours up to 6 AM 11/26/19 06:00 Intake Total 3835 ml Output Total 1500 ml Balance 2335 ml Laboratory Data Labs 24H Laboratory Tests 2 11/25/19 10:25: Immature Granulocyte % (Auto) 1.1, Neutrophils (%) (Auto) 71.9H, Lymphocytes (%) (Auto) 19.1L, Monocytes (%) (Auto) 7.1H, Eosinophils (%) (Auto) 0.6, Basophils (%) (Auto) 0.2, Neutrophils # (Auto) 3.8, Lymphocytes # (Auto) 1.0L, Monocytes # (Auto) 0.4, Eosinophils # (Auto) 0.0, Basophils # (Auto) 0.0, Nucleated Red Blood Cells % (auto) 0.0, Immature Platelet Fraction 14.2H, Prothrombin Time 12.1, Prothromb Time International Ratio 0.88, Blood Gas Bicarbonate Standard 23.6, Venous Blood pH 7.332, Venous Blood Partial Pressure CO2 50.3H, Venous Blood Partial Pressure O2 40.7, Venous Blood Total Carbon Dioxide 27.6, Venous Blood HCO3 26.0, Venous Blood Oxygen Saturation 67.7, Venous Blood Base Excess - 0.4, Anion Gap 10, Glomerular Filtration Rate > 60.0, Lactic Acid Level 2.5*H, Calcium Level 8.4L, Magnesium Level 1.9, Total Creatine Kinase 268H, Creatine Kinase MB 1.6, Creatine Kinase MB Relative Index 0.60, Troponin I < 0.02, Thyroid Stimulating Hormone (TSH) 1.730, Free Thyroxine 1.49H 11/25/19 15:00: Blood Gas Bicarbonate Standard 24.1, Arterial Blood pH 7.412, Arterial Blood Partial Pressure CO2 38.5, Arterial Blood Partial Pressure O2 78.1, Arterial Blood Total CO2 25.1, Arterial Blood HCO3 24.0, Arterial Blood Base Excess -0.5, Arterial Blood Oxygen Saturation 94.8L 11/25/19 16:00: Nucleated Red Blood Cells % (auto) 0.0, Anion Gap 8, Glomerular Filtration Rate > 60.0, Calcium Level 7.5L, Lactic Acid Followup at 4 Hours 1.4, Albumin 2.3L 11/25/19 19:50: Lactic Acid Level 0.8 11/25/19 20:09: Bedside Glucose (Misc Panel) 133H 11/25/19 22:45: Anion Gap 6L, Glomerular Filtration Rate > 60.0, Calcium Level 7.6L, Phosphorus Level 3.4 CBC/BMP Laboratory Tests 11/25/19 10:25 11/25/19 16:00 11/25/19 22:45 Microbiology Microbiology 11/25/19 Blood Culture, Received Pending 11/25/19 Blood Culture, Received Pending Home Medications Scheduled Allopurinol (Allopurinol) 100 Mg Tablet, 100 MG PO QHS, (Reported) Ascorbic Acid (Vitamin C) 500 Mg Capsule, 500 MG PO DAILY, (Reported) Aspirin (Aspirin) 81 Mg Chw, 81 MG PO DAILY, (Reported) Atorvastatin Calcium (Atorvastatin Calcium) 80 Mg Tablet, 80 MG PO DAILY, (Reported) Cholecalciferol (Vitamin D3) (Vitamin D3) 1,000 Unit Tablet, 2,000 UNITS PO DAILY, (Reported) Losartan Potassium (Losartan Potassium) 100 Mg Tablet, 100 MG PO DAILY, (Reported) [place]-3 Fatty Acids/Fish Oil (Fish Oil 1,000 mg Capsule) 1 Each Capsule, 1,000 MG PO DAILY, (Reported) Pantoprazole Sodium (Pantoprazole Sodium) 40 Mg Tablet.dr, 40 MG PO BID, (Reported) Pomalidomide (Pomalyst) 2 Mg Capsule, 2 MG PO ASDIRECTED, (Reported) 2MG DAILY FOR 21 DAYS, OFF FOR 7 DAYS THEN RESUME. PT CURRENTLY ON DAY 7 Potassium Chloride (Potassium Chloride) 10 Meq Tab.er.prt, 40 MEQ PO BID, (Reported) Torsemide (Torsemide) 100 Mg Tablet, 100 MG PO DAILY, (Reported) Vitamin B Complex (Vitamin B Complex) 1 Each Tablet, 1 TAB PO DAILY, (Reported) Scheduled PRN Colchicine (Colchicine) 0.6 Mg Tablet, 0.6 MG PO DAILY PRN for GOUT PAIN, (Reported) Docusate Sodium (Docusate Sodium) 100 Mg Capsule, 100 MG PO QHS PRN for CONSTIPATION, (Reported) Hydroxyzine HCl (Hydroxyzine HCl) 25 Mg Tablet, 25 MG PO DAILY PRN for ITCHING, (Reported) Loperamide HCl (Loperamide) 2 Mg Capsule, 2 CAP PO Q6H PRN for DIARRHEA Prochlorperazine Maleate (Prochlorperazine Maleate) 10 Mg Tablet, 10 MG PO Q6H PRN for NAUSEA OR VOMITING Tramadol HCl (Tramadol HCl) 50 Mg Tablet, 50 MG PO Q6H PRN for PAIN, (Reported) Allergies Coded Allergies: Quinolones (Verified Allergy, Intermediate, hives, 10/02/19) carisoprodol (Verified Allergy, Intermediate, hives, 10/02/19) gabapentin (Verified Allergy, Intermediate, hives, 10/02/19) oxycodone (Verified Allergy, Intermediate, swelling, 10/02/19) spironolactone (Verified Allergy, Intermediate, hives, 10/02/19) Penicillins (Verified Allergy, Unknown, THROAT SWELLING/RASH, 11/25/19) ciprofloxacin (Verified Allergy, Unknown, SCRATCHY THROAT, 11/25/19) doxycycline (Verified Allergy, Unknown, HIVES, 11/25/19) metformin (Verified Adverse Reaction, Intermediate, DIARRHEA, 11/25/19) amitriptyline (Verified Adverse Reaction, Unknown, "PASS OUT", 11/25/19) ibuprofen (Verified Adverse Reaction, Unknown, renal issues, 10/02/19) ETIENNE CHONG MD Nov 26, 2019 04:38
[2019-11-26] MEDS: NS 1,000 ML IV SCH ×2 (04:49→17:11)
[2019-11-26] MEDS: KETOROLAC 30 MG/ML 1ML VIAL IV PRN ×2 (04:57→11:48)
[2019-11-26 05:22] LABS: HEMATOCRIT 31.4 % (36.0-47.0); HEMOGLOBIN 9.9 g/dl (12.0-15.5); MEAN CORPUSCULAR HEMOGLOBIN 33.2 pg (27.0-33.0); MEAN CORPUSCULAR HGB CONC 31.5 g/dl (32.0-36.5); MEAN CORPUSCULAR VOLUME 105.4 fl (80.0-96.0); RED BLOOD COUNT 2.98 10^6/uL (4.00-5.40); WHITE BLOOD COUNT 3.6 10^3/uL (4.0-10.0)
[2019-11-26 05:24] LABS: PLATELET COUNT, AUTOMATED 65 10^3/uL (150-450)
[2019-11-26 05:55] LABS: BLOOD UREA NITROGEN 20 MG/DL (7-18); CALCIUM LEVEL 7.7 MG/DL (8.8-10.2); CARBON DIOXIDE LEVEL 27 MEQ/L (21-32); CHLORIDE LEVEL 114 MEQ/L (98-107); CREATININE FOR GFR 0.73 MG/DL (0.55-1.30); GLOMERULAR FILTRATION RATE > 60.0 (>45); GLUCOSE, FASTING 120 MG/DL (70-100); MAGNESIUM LEVEL 1.6 MG/DL (1.8-2.4); POTASSIUM SERUM 3.6 MEQ/L (3.5-5.1); SODIUM LEVEL 147 MEQ/L (136-145)
[2019-11-26] MEDS: MAG SULF 1GM/100ML (MAG RUN) 1 GM in IV 1 EA IV SCH ×2 (06:36→07:59)
--- NOTE | 2019-11-26 07:37 | IPNPDOC ---
Text Note Date of Service The patient was seen on 11/26/19. NOTE The patient is a 63-year-old female admitted with a reason for visit of Atrial Fibrillation Diarrhea. Patient HD stable overnight. Reports she did not sleep at all last night. No further loose stools, abdominal pain mildly improved. She denies nausea HD stable back to sinus rhtyhm, HR 60s On exam Looks more comfortable nonlabored breathing, clear bs bilaterally regular heart rate and rhythm abdomen a lot less distended this morning, mild tenderness over suprapubic area on palpation Impression/Plans Acute diverticulitis with abscess (Hinchey II) I will allow her some clears, continue IV abx. clinically improved, will plan for re-scan on and decide from that whether she needs further intervention(surgery) VS,Chase, I+O VS, Randalle, I+O Laboratory Tests 11/25/19 10:25 11/25/19 16:00 11/25/19 22:45 11/26/19 05:06 Vital Signs Date Time Temp Pulse Resp B/P (MAP) Pulse Ox O2 Delivery O2 Flow Rate FiO2 11/26/19 06:00 66 117/58 (77) 96 Room Air 11/26/19 04:00 97.8 18 I&O- Last 24 Hours up to 6 AM 11/26/19 06:00 Intake Total 4135 ml Output Total 1725 ml Balance 2410 ml ETIENNE CHONG MD Nov 26, 2019 07:37
[2019-11-26] MEDS: OMEGA-3 1000MG CAPSULE PO SCH (08:56)
[2019-11-26] MEDS: ASPIRIN 81 MG CHEW TABLET PO SCH (08:56)
[2019-11-26] MEDS: PANTOPRAZOLE 40MG TAB (PROTONIX) PO SCH ×2 (08:56→21:36)
[2019-11-26] MEDS: VITAMIN D 1,000 INTERNATIONAL UNITS TABLET PO SCH (08:56)
[2019-11-26] MEDS: ASCORBIC ACID 500 MG TAB PO SCH (08:56)
[2019-11-26] MEDS: ATORVASTATIN 20 MG TAB PO SCH (08:56)
[2019-11-26] MEDS: POTASSIUM CHLORIDE 10 MEQ SR TABLET PO SCH (09:00)
[2019-11-26] MEDS ORDERED: hydrOXYzine 25 MG TAB PO PRN (16:15)
--- NOTE | 2019-11-26 16:16 | IPNPDOC ---
Text Note Date of Service The patient was seen on 11/26/19. NOTE Subjective: Patient is a 64-year-old female female with a PMHx Multiple myeloma on chemotherapy (Dx 02/2018; Pomalidomide and dexamethasone), HTN, COPD, Fibromyalgia, PTSD, RA, who presented to the ER with complaints of diarrhea or intent. He times a day. Patient reported associated abdominal discomfort occurring in her left lower quadrant. In the emergency room, patient had imaging consistent with diverticulosis and possible abscess and was admitted to the hospital service for further evaluation. Surgery was called on the consultation. Patient was seen and examined at the bedside. Currently, patient reports that her diarrhea is doing better, still to rinse his abdominal discomfort. Denies any nausea or vomiting. Denies chest pain, shortness of breath or palpitations. Denies any urinary discomfort. Objective: Vitals (See below) General: Lying in bed, no acute distress, comfortable, AAOx3 HEENT: NC, AT CVS: RRR, +S1S2 Lungs: Fair air entry b/l, -w/r/r Abdomen: Soft, nondistended tenderness appreciated. Left lower quadrant and suprapubic region Extremities: No evidence of LE edema, - Calf tenderness Imaging: CT head (11/24): No acute intracranial abnormality. CXR (11/24): No acute abnormality. CT abdomen / pelvis (11/24): Sigmoid diverticulitis with apparent associated gas containing fluid collection, compatible with abscess. CT spine (11/24): 1. Mild degenerative disc disease. No stenosis. 2. Inflammatory changes noted within the mesenteric fat of the lower abdomen/pelvis with findings suggestive of abscess. Multiple colonic diverticula noted in a neighboring bowel loop. This is very suggestive of diverticulitis with abscess. CT scan abdomen pelvis might 1.3 cm simple cyst upper pole left kidney. be considered Assessment and plan: Hypotension / Orthostatic hypotension - likely 2/2 dehydration - 2/2 diarrhea - Patient still experiences orthostatic hypotension - GI panel pending - c/w IV fluid hydration Abdominal pain 2/2 Diarrhea - likely 2/2 sigmoid diverticulosis with gas containing abscess - Hemodynamically stable and afebrile - Physical reveals left lower quadrant tenderness - IR unable to achieve IR guided drainage given the location - General surgery, Dr. Brown on consultation; appreciate his input; will repeat imaging on - Diet has been advanced to clear liquid as per surgery - Will adjust pain control to Tramadol Atrial fibrillation likely 2/2 hypotension - c/w rate / rhythm control with Digoxin - Not on any anticoagulation - c/w ASA Pancytopenia - likely 2/2 chemotherapy - Will continue to monitor counts - Hold chemotherapy given active infection Multiple myeloma - Dx 02/2018; on Pomalidomide and dexamethasone as an outpatient - Will continue to hold until infection resolves Lower back pain as a result of the fall - c/w Tramadol HTN - BP remains improved - Will continue to hold BP medications COPD - No evidence of exacerbation Fibromyalgia / PTSD - Will resume Hydroxyzine RA - c/w Tylenol and Tramadol GERD - c/w Protonix DVT prophylaxis - c/w TEDs/Sequentials VS,Fishbone, I+O VS, Fishbone, I+O Laboratory Tests 11/25/19 16:00 11/25/19 22:45 11/26/19 05:06 Vital Signs Date Time Temp Pulse Resp B/P (MAP) Pulse Ox O2 Delivery O2 Flow Rate FiO2 11/26/19 11:35 96.3 60 18 149/73 (98) 98 Room Air I&O- Last 24 Hours up to 6 AM 11/26/19 06:00 Intake Total 4135 ml Output Total 1725 ml Balance 2410 ml FERNIE CHOI MD Nov 26, 2019 16:16
[2019-11-26] MEDS: traMADol 50 MG TAB PO PRN (21:36)
[2019-11-26] MEDS: allopurinoL 100 MG TAB PO SCH (21:36)
[2019-11-27] VITALS (13 sets, daily range): BP systolic 124–184; BP diastolic 63–97
[2019-11-27] MEDS: MEROPENEM INJ 1 GM in IV 1 EA IV SCH ×4 (00:36→23:05)
[2019-11-27] MEDS: NS 1,000 ML IV SCH (05:19)
[2019-11-27] MEDS: traMADol 50 MG TAB PO PRN (05:19)
[2019-11-27 06:16] LABS: HEMATOCRIT 25.2 % (36.0-47.0); MEAN CORPUSCULAR HGB CONC 31.7 g/dl (32.0-36.5); MEAN CORPUSCULAR VOLUME 107.2 fl (80.0-96.0); RED BLOOD COUNT 2.35 10^6/uL (4.00-5.40); WHITE BLOOD COUNT 2.6 10^3/uL (4.0-10.0)
[2019-11-27 06:22] LABS: PLATELET COUNT, AUTOMATED 63 10^3/uL (150-450)
[2019-11-27 06:33] LABS: BLOOD UREA NITROGEN 8 MG/DL (7-18); CALCIUM LEVEL 7.6 MG/DL (8.8-10.2); CARBON DIOXIDE LEVEL 25 MEQ/L (21-32); CHLORIDE LEVEL 115 MEQ/L (98-107); CREATININE FOR GFR 0.52 MG/DL (0.55-1.30); GLOMERULAR FILTRATION RATE > 60.0 (>45); GLUCOSE, FASTING 103 MG/DL (70-100); POTASSIUM SERUM 3.8 MEQ/L (3.5-5.1); SODIUM LEVEL 146 MEQ/L (136-145)
[2019-11-27] MEDS ORDERED: NS 1,000 ML IV SCH (08:30)
[2019-11-27] MEDS ORDERED: LORATADINE 5 MG HALF-TAB PO SCH (09:00)
[2019-11-27] MEDS: ASPIRIN 81 MG CHEW TABLET PO SCH (09:04)
[2019-11-27] MEDS: MORPHINE 2 MG/ML 1ML VIAL (J2270) IV PRN ×2 (09:04→16:42)
[2019-11-27] MEDS: ATORVASTATIN 20 MG TAB PO SCH (09:04)
[2019-11-27] MEDS: VITAMIN D 1,000 INTERNATIONAL UNITS TABLET PO SCH (09:04)
[2019-11-27] MEDS: PANTOPRAZOLE 40MG TAB (PROTONIX) PO SCH ×2 (09:05→20:47)
[2019-11-27] MEDS: ASCORBIC ACID 500 MG TAB PO SCH (09:05)
[2019-11-27] MEDS: OMEGA-3 1000MG CAPSULE PO SCH (09:05)
[2019-11-27 09:39] LABS: MAGNESIUM LEVEL 2.2 MG/DL (1.8-2.4)
--- NOTE | 2019-11-27 10:11 | IPNPDOC ---
Text Note Date of Service The patient was seen on 11/27/19. NOTE Subjective: Patient is a 64-year-old female female with a PMHx Multiple myeloma on chemotherapy (Dx 02/2018; Pomalidomide and dexamethasone), HTN, COPD, Fibromyalgia, PTSD, RA, who presented to the ER with complaints of diarrhea or intent. He times a day. Patient reported associated abdominal discomfort occurring in her left lower quadrant. In the emergency room, patient had imaging consistent with diverticulosis and possible abscess and was admitted to the hospital service for further evaluation. Surgery was called on the consultation. Patient was seen and examined at the bedside. Patient reports her dizziness has improved but not resolved. Denies any chest pain, shortness breath, palpitations. Denies any nausea or vomiting. Has been tolerating her clear liquid diet. Reports some abdominal discomfort that is relatively unchanged. Patient reports having a few bowel movements overnight and this morning. Denies any urinary discomfort. Objective: Vitals (See below) General: Lying in bed, no acute distress, comfortable, AAOx3 HEENT: NC, AT CVS: RRR, +S1S2 Lungs: Fair air entry b/l, patient is free of rhonchi, rales or wheezing Abdomen: Soft, remains nondistended. Tenderness is appreciated at left lower quadrant Extremities: Lower extremities are free of any pitting edema, - Calf tenderness Imaging: CT head (11/24): No acute intracranial abnormality. CXR (11/24): No acute abnormality. CT abdomen / pelvis (11/24): Sigmoid diverticulitis with apparent associated gas containing fluid collection, compatible with abscess. CT spine (11/24): 1. Mild degenerative disc disease. No stenosis. 2. Inflammatory changes noted within the mesenteric fat of the lower abdomen/pelvis with findin gs suggestive of abscess. Multiple colonic diverticula noted in a neighboring bowel loop. This is very suggestive of diverticulitis with abscess. CT scan abdomen pelvis might 1.3 cm simple cyst upper pole left kidney. be considered Assessment and plan: Hypotension / Orthostatic hypotension - likely 2/2 dehydration - 2/2 diarrhea - Patient has had some improvement of symptoms - Patient has had a few episodes of diarrhea overnight and this am - GI panel negative - c/w IV fluid hydration Abdominal pain 2/2 Diarrhea - likely 2/2 sigmoid diverticulosis with gas contai autumn abscess - Remain hemodynamically stable and afebrile - LLQ tenderness noted - IR unable to achieve IR guided drainage given the location - General surgery, Dr. Brown on consultation; appreciate his input; will repeat imaging on Tomorrow - c/w clear liquid as per surgery - Will increase pain control to Morphine; DC Tramadol - discussed allergy of Oxycodone - patient reports she does not have an allergy to this medication; removed from profile Atrial fibrillation likely 2/2 hypotension - c/w rate / rhythm control with Digoxin - Not on any anticoagulation - c/w ASA Pancytopenia - likely 2/2 chemotherapy - Will continue to monitor counts - Hg has tended down; possible 2/2 dilutional etiology - No bleeding noted - Will trend H&H - Hold chemotherapy given active infection Multiple myeloma - Dx 02/2018; on Pomalidomide and dexamethasone as an outpatient - Will continue to hold until infection resolves Lower back pain as a result of the fall - Will adjust pain medications HTN - BP elevated this morning - Will stop IV fluids - Will resume Losartan - Torsemide on Hold; will need to resume within 24 hours COPD - No evidence of exacerbation Fibromyalgia / PTSD - c/w Hydroxyzine RA - c/w Tylenol GERD - c/w Protonix DVT prophylaxis - c/w TEDs/Sequentials VS,Fishbone, I+O VS, Fishbone, I+O Laboratory Tests 11/27/19 05:38 Vital Signs Date Time Temp Pulse Resp B/P (MAP) Pulse Ox O2 Delivery O2 Flow Rate FiO2 11/27/19 09:04 20 Room Air 11/27/19 08:10 184/97 (126) 11/27/19 05:49 96 11/27/19 04:00 97.6 66 I&O- Last 24 Hours up to 6 AM 11/27/19 06:00 Intake Total 905 ml Output Total 1800 ml Balance -895 ml FERNIE CHOI MD Nov 27, 2019 10:11
[2019-11-27] MEDS: LORATADINE 10 MG TAB PO SCH (10:46)
[2019-11-27] MEDS: LOSARTAN 50MG TABLET PO SCH (10:46)
--- NOTE | 2019-11-27 12:06 | IPNPDOC ---
Text Note Date of Service The patient was seen on 11/27/19. NOTE Patient reports her abdominal pain is a lot better. She is tolerating clear l iquids. She has had a few loose stools overnight that are nonbloody She is hemodynamically stable. Heart rates in the 60s to 70s She is afebrile On examination Patient looks more comfortable today. She reports she was able to sleep last night. Abdomen soft a lot less distended, soft only minimal tenderness in the suprapubic area on deep palpation without guarding Impression and plan Acute diverticulitis with pericolic abscess (Hinchey stage II) Clinically she has improved. She does have pancytopenia which may be part of infection or because she is immunocompromised and undergoing treatment for her multiple myeloma. She is afebrile. I'll advance her to full liquids to get some nutrition. I scheduled her for repeat CT with by mouth and IV contrast of the abdomen and pelvis to follow-up on the pericolic abscess tomorrow morning and we will decide then whether she needs any intervention or we could proceed with antibiotic therapy. VS,Ignaciobone, I+O VS, Ignaciobone, I+O Laboratory Tests 11/27/19 05:38 Vital Signs Date Time Temp Pulse Resp B/P (MAP) Pulse Ox O2 Delivery O2 Flow Rate FiO2 11/27/19 10:46 146/80 11/27/19 09:35 20 Room Air 11/27/19 05:49 96 11/27/19 04:00 97.6 66 I&O- Last 24 Hours up to 6 AM 11/27/19 06:00 Intake Total 905 ml Output Total 1800 ml Balance -895 ml ETIENNE CHONG MD Nov 27, 2019 12:06
[2019-11-27 12:19] LABS: HEMATOCRIT 22.8 % (36.0-47.0); HEMOGLOBIN 7.4 g/dl (12.0-15.5)
[2019-11-27] MEDS: MORPHINE 4 MG/ML 1ML VIAL/SYRINGE (J2270) IV PRN ×2 (18:24→22:35)
[2019-11-27] MEDS: allopurinoL 100 MG TAB PO SCH (20:47)
[2019-11-27] MEDS ORDERED: FUROSEMIDE 40MG/4ML VIAL (J1940) IV ONE (23:30)
[2019-11-28] VITALS (10 sets, daily range): BP systolic 139–158; BP diastolic 76–80
[2019-11-28] MEDS ORDERED: MORPHINE 4 MG/ML 1ML VIAL/SYRINGE (J2270) IV ONE (01:00)
[2019-11-28] MEDS: MORPHINE 4 MG/ML 1ML VIAL/SYRINGE (J2270) IV PRN ×4 (05:30→21:36)
[2019-11-28 06:19] LABS: HEMATOCRIT 29.9 % (36.0-47.0); MEAN CORPUSCULAR HEMOGLOBIN 33.1 pg (27.0-33.0); MEAN CORPUSCULAR HGB CONC 33.1 g/dl (32.0-36.5); RED BLOOD COUNT 2.99 10^6/uL (4.00-5.40); WHITE BLOOD COUNT 4.4 10^3/uL (4.0-10.0)
[2019-11-28 06:20] LABS: HEMOGLOBIN 9.9 g/dl (12.0-15.5); PLATELET COUNT, AUTOMATED 88 10^3/uL (150-450)
[2019-11-28 06:34] LABS: BLOOD UREA NITROGEN 4 MG/DL (7-18); CALCIUM LEVEL 7.9 MG/DL (8.8-10.2); CARBON DIOXIDE LEVEL 24 MEQ/L (21-32); CHLORIDE LEVEL 112 MEQ/L (98-107); GLOMERULAR FILTRATION RATE > 60.0 (>45); GLUCOSE, FASTING 113 MG/DL (70-100); POTASSIUM SERUM 3.7 MEQ/L (3.5-5.1); SODIUM LEVEL 142 MEQ/L (136-145)
[2019-11-28] MEDS: GASTROGRAFIN SOLUTION 30ML PO SCH ×2 (06:34→07:01)
[2019-11-28] MEDS ORDERED: ISOVUE-370 76% 100ML VIAL As Ordered ONE (07:49)
--- NOTE | 2019-11-28 08:52 | REPVR ---
PROCEDURE INFORMATION: Exam: CT Abdomen And Pelvis With Contrast Exam date and time: 11/28/2019 8:19 AM Age: 63 years old Clinical indication: Abdominal pain; Generalized; Additional info: Ffup diverticulitis with abscess TECHNIQUE: Imaging protocol: Computed tomography of the abdomen and pelvis with intravenous contrast. Radiation optimization: All CT scans at this facility use at least one of these dose optimization techniques: automated exposure control; mA and/or kV adjustment per patient size (includes targeted exams where dose is matched to clinical indication); or iterative reconstruction. Contrast material: ISOVUE 370; Contrast volume: 100 ml; Contrast route: INTRAVENOUS (IV); COMPARISON: CT ABD/PEL W/IV CONTRAST ONLY 11/25/2019 1:42 PM FINDINGS: Pleural space: Interstitial prominence, dependent airspace disease, and small pleural effusions. Hiatal hernia. Liver: Fatty infiltration of the liver. Gallbladder and bile ducts: Status post cholecystectomy. Pancreas: No pancreatic mass or ductal dilatation. Next para unremarkable adrenals. Spleen: Enlarged spleen measuring 13.3 cm in length. Adrenals: See "Pancreas" finding. Kidneys and ureters: 11 mm left renal cyst. No hydronephrosis. Stomach and bowel: Gastroduodenal wall thickening. No significant small bowel dilatation. Multifocal pericolonic abscesses again demonstrated in association with sigmoid diverticulitis, with the largest abscess centrally located currently measuring 5.7 by 4.6 by 3.1 cm and previously measuring 6.0 x 3.7 x 3.6 cm. Colonic diverticula and air-fluid levels. Appendix: No acute appendicitis. Intraperitoneal space: Infiltration of pelvic fat and small quantity of intraperitoneal fluid. Vasculature: Vascular calcification. Normal caliber of the abdominal aorta. Lymph nodes: Subcentimeter lymph nodes. Bladder: Normal bladder morphology. Reproductive: status post hysterectomy. Endocervical air. Bones/joints: Osteopenia. Multiple ovoid lytic lesions including a 12 mm lesion in the right L1 vertebral body, suspicious for metastasis. Bone scan correlation can be performed for further evaluation, as clinically indicated. Multiple compression deformities and degenerative change. Soft tissues: subcutaneous edema. status post ventral herniorrhaphy with laxity and atrophy of the anterior abdominal wall musculature. Small umbilical hernia. Other findings: 15 mm presacral fluid. IMPRESSION: 1. Multifocal pericolonic abscesses again demonstrated in association with sigmoid diverticulitis, with the largest abscess centrally located currently measuring 5.7 by 4.6 by 3.1 cm and previously measuring 6.0 x 3.7 x 3.6 cm. 2. Multiple ovoid lytic lesions including a 12 mm lesion in the right L1 vertebral body, suspicious for metastasis. Bone scan correlation can be performed for further evaluation, as clinically indicated. 3. Additional findings as described above. Electronically signed by: Shalom Burns On 11/28/2019 08:51:38 AM
[2019-11-28] MEDS: ASPIRIN 81 MG CHEW TABLET PO SCH (10:33)
[2019-11-28] MEDS: VITAMIN D 1,000 INTERNATIONAL UNITS TABLET PO SCH (10:33)
[2019-11-28] MEDS: MEROPENEM INJ 1 GM in IV 1 EA IV SCH ×3 (10:33→23:32)
[2019-11-28] MEDS: ATORVASTATIN 20 MG TAB PO SCH (10:34)
[2019-11-28] MEDS: LOSARTAN 50MG TABLET PO SCH (10:34)
[2019-11-28] MEDS: OMEGA-3 1000MG CAPSULE PO SCH (10:34)
[2019-11-28] MEDS: ASCORBIC ACID 500 MG TAB PO SCH (10:35)
[2019-11-28] MEDS: PANTOPRAZOLE 40MG TAB (PROTONIX) PO SCH ×2 (10:35→21:35)
[2019-11-28] MEDS: LORATADINE 10 MG TAB PO SCH (10:35)
--- NOTE | 2019-11-28 11:01 | IPNPDOC ---
Text Note Date of Service The patient was seen on 11/28/19. NOTE Subjective: Patient is a 64-year-old female female with a PMHx Multiple myeloma on chemotherapy (Dx 02/2018; Pomalidomide and dexamethasone), HTN, COPD, Fibromyalgia, PTSD, RA, who presented to the ER with complaints of diarrhea or intent. He times a day. Patient reported associated abdominal discomfort occurring in her left lower quadrant. In the emergency room, patient had imaging consistent with diverticulosis and possible abscess and was admitted to the hospital service for further evaluation. Surgery was called on the consultation. Patient was seen and examined at the bedside. Clinic. The patient reports that her abdominal pain is doing better. Has been tolerating a clear liquid diet. Denies any nausea or vomiting. Has not history of any chest pain, short of breath, palpitations. Denies any urinary discomfort. Objective: Vitals (See below) General: Lying in bed, does not appear to be in any acute distress. Appears to be comfortable, AAOx3 HEENT: NC, AT CVS: RRR, +S1S2 Lungs: Air entry remains fair bilaterally, again without any evidence of rhonchi, crackles or wheezing Abdomen: Remains soft and nondistended. Mild tenderness is appreciated at left lower quadrant Extremities: No edema of Lower extremities, - Calf tenderness Imaging: CT head (11/24): No acute intracranial abnormality. CXR (11/24): No acute abnormality. CT abdomen / pelvis (11/24): Sigmoid diverticulitis with apparent associated gas containing fluid collection, compatible with abscess. CT spine (11/24): 1. Mild degenerative disc disease. No stenosis. 2. Inflammatory changes noted within the mesenteric fat of the lower abdomen/pelvis with findings suggestive of abscess. Multiple colonic diverticula noted in a neighboring bowel loop. This is very suggestive of diverticulitis with abscess. CT scan abdomen pelvis might 1.3 cm simple cyst upper pole left kidney. be considered CT abdomen / pelvis (11/27): 1. Multifocal pericolonic abscesses again demonstrated in association with sigmoid diverticulitis, with the largest abscess centrally located currently measuring 5.7 by 4.6 by 3.1 cm and previousl y measuring 6.0 x 3.7 x 3.6 cm. 2. Multiple ovoid lytic lesions including a 12 mm lesion in the right L1 vertebral body, suspicious for metastasis. Bone scan correlation can be performed for further evaluation, as clinically indicated. 3. Additional findings as described above. Assessment and plan: Abdominal pain 2/2 Diarrhea - likely 2/2 sigmoid diverticulosis with gas containing abscess - Remain hemodynamically stable and afebrile - LLQ tenderness noted - No leukocytosis - Blood cultures (11/24) 1 of 2: Staph Hominis - likely 2/2 contaminant; Blood cultures (11/26): Pending - IR unable to achieve IR guided drainage given the location - c/w clear liquid as per surgery - General surgery, Dr. Brown on consultation; - c/w pain control with Morphine s/p Hypotension / Orthostatic hypotension - likely 2/2 dehydration - 2/2 diarrhea - Patient has had some improvement of symptoms - Patient has had a few episodes of diarrhea overnight and this am - GI panel negative - c/w IV fluid hydration Atrial fibrillation likely 2/2 hypotension - c/w rate / rhythm control with Digoxin - Not on any anticoagulation - c/w ASA Pancytopenia - likely 2/2 chemotherapy - Will continue to monitor counts - Hg has tended down; possible 2/2 dilutional etiology - s/p 2 units of PRBC - Hold chemotherapy given active infection Multiple myeloma - Dx 02/2018; on Pomalidomide and dexamethasone as an outpatient - Will continue to hold until infection resolves Lower back pain as a result of the fall - No focal neurologic deficits; no bladder / bowel incontinence - Imaging without evidence of fracture; evidence of lytic lesion including 12mm lesion in the R L1 vertebral body suspicious for metastasis - Discussed imaging findings with patient - Will continue with pain control HTN - BP elevated this morning - PE without any evidence of fluid overload - s/p fluids - c/w Losartan - Will resume Torsemide tomorrow COPD - No evidence of exacerbation Fibromyalgia / PTSD - c/w Hydroxyzine RA - c/w Tylenol GERD - c/w Protonix DVT prophylaxis - c/w TEDs/Sequentials VS,Fishbone, I+O VS, Fishbone, I+O Laboratory Tests 11/27/19 12:06 11/28/19 05:46 Vital Signs Date Time Temp Pulse Resp B/P (MAP) Pulse Ox O2 Delivery O2 Flow Rate FiO2 11/28/19 10:49 20 11/28/19 10:34 142/84 11/28/19 06:00 99.0 61 97 Room Air I&O- Last 24 Hours up to 6 AM 11/28/19 06:00 Intake Total 2955 ml Output Total 1000 ml Balance 1955 ml FERNIE CHOI MD Nov 28, 2019 11:01
[2019-11-28] MEDS: TORSEMIDE 100 MG TAB PO SCH (13:35)
[2019-11-28] MEDS: allopurinoL 100 MG TAB PO SCH (21:35)
[2019-11-29] VITALS (10 sets, daily range): BP systolic 118–154; BP diastolic 61–79
[2019-11-29] MEDS: MORPHINE 4 MG/ML 1ML VIAL/SYRINGE (J2270) IV PRN ×3 (05:46→21:30)
[2019-11-29] MEDS ORDERED: LIDOCAINE 1% SDV 30ML VIAL As Ordered ONE (07:21)
[2019-11-29] MEDS ORDERED: BUPIVACAINE HCL 0.25% 30ML VIAL As Ordered ONE (07:21)
[2019-11-29 07:54] LABS: HEMATOCRIT 33.5 % (36.0-47.0); MEAN CORPUSCULAR HEMOGLOBIN 32.6 pg (27.0-33.0); MEAN CORPUSCULAR HGB CONC 32.8 g/dl (32.0-36.5); MEAN CORPUSCULAR VOLUME 99.4 fl (80.0-96.0); PLATELET COUNT, AUTOMATED 106 10^3/uL (150-450); RED BLOOD COUNT 3.37 10^6/uL (4.00-5.40); WHITE BLOOD COUNT 3.9 10^3/uL (4.0-10.0)
[2019-11-29 08:14] LABS: BLOOD UREA NITROGEN 5 MG/DL (7-18); CALCIUM LEVEL 7.5 MG/DL (8.8-10.2); CARBON DIOXIDE LEVEL 33 MEQ/L (21-32); CHLORIDE LEVEL 105 MEQ/L (98-107); CREATININE FOR GFR 0.52 MG/DL (0.55-1.30); GLOMERULAR FILTRATION RATE > 60.0 (>45); GLUCOSE, FASTING 98 MG/DL (70-100); POTASSIUM SERUM 3.3 MEQ/L (3.5-5.1); SODIUM LEVEL 141 MEQ/L (136-145)
[2019-11-29] MEDS: MEROPENEM INJ 1 GM in IV 1 EA IV SCH ×3 (08:37→23:39)
[2019-11-29] MEDS: LOSARTAN 50MG TABLET PO SCH (08:38)
[2019-11-29] MEDS: ASCORBIC ACID 500 MG TAB PO SCH (08:38)
[2019-11-29] MEDS: OMEGA-3 1000MG CAPSULE PO SCH (08:38)
[2019-11-29] MEDS: TORSEMIDE 100 MG TAB PO SCH (08:38)
[2019-11-29] MEDS: ATORVASTATIN 20 MG TAB PO SCH (08:38)
[2019-11-29] MEDS: LORATADINE 10 MG TAB PO SCH (08:38)
[2019-11-29] MEDS: VITAMIN D 1,000 INTERNATIONAL UNITS TABLET PO SCH (08:38)
[2019-11-29] MEDS: PANTOPRAZOLE 40MG TAB (PROTONIX) PO SCH ×2 (08:38→21:24)
[2019-11-29] MEDS ORDERED: dexameTHASONE 4 MG/ML 1ML VIAL (J1100 PER 1MG) As Ordered ONE (08:59)
[2019-11-29] MEDS ORDERED: ONDANSETRON 4MG/2ML VIAL As Ordered ONE (08:59)
[2019-11-29] MEDS ORDERED: SUGAMMADEX SODIUM 500 MG/5 ML VIAL (BRIDION) As Ordered ONE (08:59)
[2019-11-29] MEDS ORDERED: MIDAZOLAM INJ 2MG/2ML VIAL (J2250 PER 1MG) As Ordered ONE (08:59)
[2019-11-29] MEDS ORDERED: fentaNYL 100 MCG/2 ML INJECTION (J3010) As Ordered ONE (08:59)
[2019-11-29] MEDS: ASPIRIN 81 MG CHEW TABLET PO SCH (09:00)
[2019-11-29] MEDS ORDERED: propofoL 200 MG/20 ML VIAL As Ordered ONE (09:00)
[2019-11-29] MEDS ORDERED: LIDOCAINE 2% 100MG/5ML SDV (FOR ANES.) As Ordered ONE (09:00)
[2019-11-29] MEDS ORDERED: ROCURONIUM BROMIDE 50 MG/5 ML VIAL As Ordered ONE (09:00)
[2019-11-29] MEDS ORDERED: PHENYLephrine HCL 500 MCG/5 ML (100MCG/ML) SYRINGE (J2370) As Ordered ONE (09:15)
[2019-11-29] MEDS ORDERED: ePHEDrine SULFATE 25 MG/5 ML(5MG/ML) SYRINGE As Ordered ONE (09:15)
--- NOTE | 2019-11-29 09:45 | IPNPDOC ---
Text Note Date of Service The patient was seen on 11/29/19. NOTE Patient's been relatively stable, afebrile, still has some mild residual supr apubic and left lower quadrant discomfort but otherwise tolerating soft diet. She had a repeat CT yesterday for follow-up of her diverticular abscess still showing significant size of the abscess despite improvement. Vital signs stable Afebrile Tmax 93 heart rate in the 60s BP 154/78 On examination Patient seen sitting up on her bed, looks comfortable Skin is warm and dry No jugular venous distention Lung sounds are clear to auscultation bilaterally Regular heart rate and rhythm Abdomen is obese soft, nondistended, mildly tender over the suprapubic area with no rebound or guarding Ancillaries CT scan of the abdomen and pelvis was reviewed with her Impression and plan Diverticulitis with abscess Spoken to her regarding her progress or lack her off. She has made improvements in terms of recovery from the atrial fibrillation which probably is from stress from the infection. She is not showing any signs of systemic inflammatory response. She still is mildly symptomatic and is tenderness over the suprapubic and left lower quadrant area. Repeat CT still shows significant size of the abscess at 5.7 cm also some multi loculation. Given her baseline of multiple myeloma needing therapy for this, further nonoperative therapy me along the time for her to receive her treatment for her multiple myeloma and in the and may still failed to fully resolve the infection. Other option would include laparoscopic drainage of the abscess. Again I discussed the process in consult this with her. He may be able to track the abscess and drain a 10 resolve current infection about 60-50% of the time though she has significant inflammation or nonreducible perforation of the diverticulum of the sigmoid colon this may turn into a fistula for which she will need further treatment. Nonstress resolution of the symptoms would also require to have a formal colon resection plus or minus colostomy. I think it is worthwhile to try to the laparoscopic abscess drainage. I fully discussed with her the risk and benefits of this and patient has consented to the procedure. VS,Fishbone, I+O VS, Fishbone, I+O Laboratory Tests 11/29/19 06:47 Vital Signs Date Time Temp Pulse Resp B/P (MAP) Pulse Ox O2 Delivery O2 Flow Rate FiO2 11/29/19 08:38 154/78 11/29/19 06:00 98.3 65 18 97 Room Air I&O- Last 24 Hours up to 6 AM 11/29/19 06:00 Intake Total 1380 ml Output Total 2750 ml Balance -1370 ml ETIENNE CHONG MD Nov 29, 2019 09:45
[2019-11-29] MEDS ORDERED: KCL 10MEQ/100ML SWI (KRUN) 10 MEQ in IV 1 EA IV STA (10:29)
--- NOTE | 2019-11-29 10:52 | ECGEPIP ---
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
[2019-11-29] MEDS ORDERED: fentaNYL 100 MCG/2 ML INJECTION (J3010) IV PRN (12:15)
[2019-11-29] MEDS ORDERED: LR 1,000 ML IV SCH (12:15)
[2019-11-29] MEDS ORDERED: oxyCODONE 5MG TAB PO PRN (12:15)
[2019-11-29] MEDS ORDERED: HYDROMORPHONE HCL 0.5 MG/ 0.5 ML SYRINGE (J1170 PER 1) IV PRN (12:15)
[2019-11-29] MEDS ORDERED: ONDANSETRON 4MG/2ML VIAL IV PRN (12:15)
[2019-11-29] MEDS: POTASSIUM CHLORIDE 10 MEQ SR TABLET PO SCH ×3 (13:47→21:25)
[2019-11-29] MEDS ORDERED: MORPHINE 2 MG/ML 1ML VIAL (J2270) IV ONE (16:30)
--- NOTE | 2019-11-29 19:23 | IPNPDOC ---
Subjective Date Seen The patient was seen on 11/29/19. Subjective Chief Complaint/HPI Patient is a 64 year old female with history of multiple myeloma s/p chemotherapy, here with diverticulitis complicated by abscess formation. This morning, she was seen before going down to surgery. Her abdominal pain and tenderness is still persistent. Denies fever, chest pain, dyspnea, or dysuria. She still has some dysuria. Constitutional: Denies: Fever Pulmonary: Denies: Dyspnea Cardiovascular: Denies: Chest Pain Gastrointestinal: Reports: Abdominal Pain, Diarrhea Genitourinary: Denies: Dysuria Objective Physical Examination General Exam: Positive: Alert, Cooperative Eye Exam: Positive: EOMI; Negative: Sclera icteric ENT Exam: Positive: Atraumatic Neck Exam: Positive: Supple Chest Exam: Positive: Clear to auscultation Heart Exam: Positive: Rate Normal, Regular Rhythm Abdomen Exam: Positive: Tenderness Neuro Exam: Positive: Cranial Nerves 3-12 NL Psych Exam: Positive: Mental status NL, Mood NL Assessment /Plan Assessment Patient is a 63 year old female with history of multiple myeloma s/p chemotherapy (Dx 02/2018, Pomalidomide and dexamethasone) here with acute diverticulitis complicated by abscess formation. Today, she will go to surgery for drainage. Plan/VTE VTE Prophylaxis Ordered?: Yes Plan 1. Acute sigmoid diverticulitis with gas containing abscess - Surgery following, recommendations appreciated - Today, she will go down for surgery. Pending results from surgery 2. Hypotension - Secondary to diarrhea and dehydration - Continue with hydration 3. Atrial fibrillation - Continue with rate control with digoxin - No on anticoagulation. Just had surgery 4. Pancytopenia - Monitor counts. - S/p 2 units of pRBC. Hemoglobin stable - hold chemotherapy given active infection 5. Multiple myeloma - Diagnoxed on 02/2018 - On Pomalidomide and dexamethasone outpatient - Will hold until infection resolves 6. Low back pain 2/2 fall - No focal neurological deficits, no bladder/bowel incontinence - No fracture on imaging, evidence of lytic lesions on R L1 vertebral body suspicious for metastatis - Imaging was discussed with patient - Continue pain control 7. Hypertension - Blood pressure at 114/55 today - Continue losartan 8. COPD - Appears to be stable 9. Fibromyalgia/PTSD - Continue with hydroxyzine 10. RA - Continue with Tylenol 11. GERD - Continue with Protonix 12. DVT ppx - TEDS and SCD VS, I&O, 24H, Fishbone Vital Signs/I&O Vital Signs Date Time Temp Pulse Resp B/P (MAP) Pulse Ox O2 Delivery O2 Flow Rate FiO2 11/29/19 16:50 11 97 Nasal Cannula 2.0 11/29/19 12:55 97.0 78 114/55 (74) I&O- Last 24 Hours up to 6 AM 11/29/19 06:00 Intake Total 1380 ml Output Total 2750 ml Balance -1370 ml Laboratory Data 24H LABS Laboratory Tests 2 11/29/19 06:47: Nucleated Red Blood Cells % (auto) 0.0, Anion Gap 3L, Glomerular Filtration Rate > 60.0, Calcium Level 7.5L 11/29/19 07:43: Coronavirus (COVID-19)(PCR) NEGATIVE CBC/BMP Laboratory Tests 11/29/19 06:47 Microbiology Microbiology 11/29/19 Gram Stain - Final, Resulted 11/29/19 Anaerobic Culture, Resulted Pending 11/29/19 Bacterial Culture, Received Pending 11/27/19 Blood Culture - Preliminary, Resulted No Growth after 48 hours. All Specime... 11/27/19 Blood Culture - Preliminary, Resulted No Growth after 48 hours. All Specime... 11/26/19 Gastrointestinal Tract Panel (PCR) - Final, Complete 11/25/19 Blood Culture - Preliminary, Resulted No Growth after 72 hours. All specime... 11/25/19 Blood Culture - Final, Complete Staphylococcus Hominis Ssp Chanel ARA LIMON DO Nov 29, 2019 19:12
[2019-11-29 20:48] LABS: BLOOD UREA NITROGEN 8 MG/DL (7-18); CALCIUM LEVEL 7.5 MG/DL (8.8-10.2); CARBON DIOXIDE LEVEL 32 MEQ/L (21-32); CHLORIDE LEVEL 103 MEQ/L (98-107); CREATININE FOR GFR 0.76 MG/DL (0.55-1.30); GLOMERULAR FILTRATION RATE > 60.0 (>45); GLUCOSE, FASTING 237 MG/DL (70-100); POTASSIUM SERUM 3.7 MEQ/L (3.5-5.1); SODIUM LEVEL 141 MEQ/L (136-145)
[2019-11-29] MEDS: allopurinoL 100 MG TAB PO SCH (21:25)
[2019-11-30] VITALS (7 sets, daily range): BP systolic 119–135; BP diastolic 62–79
[2019-11-30] MEDS: MORPHINE 4 MG/ML 1ML VIAL/SYRINGE (J2270) IV PRN (02:01)
[2019-11-30] MEDS ORDERED: KETOROLAC 30 MG/ML 1ML VIAL IV ONE (05:15)
[2019-11-30 08:33] LABS: HEMATOCRIT 32.7 % (36.0-47.0); HEMOGLOBIN 10.5 g/dl (12.0-15.5); MEAN CORPUSCULAR HEMOGLOBIN 32.9 pg (27.0-33.0); MEAN CORPUSCULAR HGB CONC 32.1 g/dl (32.0-36.5); MEAN CORPUSCULAR VOLUME 102.5 fl (80.0-96.0); PLATELET COUNT, AUTOMATED 136 10^3/uL (150-450); RED BLOOD COUNT 3.19 10^6/uL (4.00-5.40); WHITE BLOOD COUNT 3.7 10^3/uL (4.0-10.0)
[2019-11-30 08:41] LABS: BLOOD UREA NITROGEN 13 MG/DL (7-18); CALCIUM LEVEL 7.2 MG/DL (8.8-10.2); CARBON DIOXIDE LEVEL 32 MEQ/L (21-32); CHLORIDE LEVEL 107 MEQ/L (98-107); GLOMERULAR FILTRATION RATE > 60.0 (>45); GLUCOSE, FASTING 119 MG/DL (70-100); POTASSIUM SERUM 4.1 MEQ/L (3.5-5.1); SODIUM LEVEL 145 MEQ/L (136-145)
[2019-11-30] MEDS: MEROPENEM INJ 1 GM in IV 1 EA IV SCH ×3 (09:11→23:28)
[2019-11-30] MEDS: LORATADINE 10 MG TAB PO SCH (09:12)
[2019-11-30] MEDS: VITAMIN D 1,000 INTERNATIONAL UNITS TABLET PO SCH (09:12)
[2019-11-30] MEDS: OMEGA-3 1000MG CAPSULE PO SCH (09:12)
[2019-11-30] MEDS: POTASSIUM CHLORIDE 10 MEQ SR TABLET PO SCH ×2 (09:12→20:43)
[2019-11-30] MEDS: ASCORBIC ACID 500 MG TAB PO SCH (09:12)
[2019-11-30] MEDS: PANTOPRAZOLE 40MG TAB (PROTONIX) PO SCH ×2 (09:12→20:43)
[2019-11-30] MEDS: ATORVASTATIN 20 MG TAB PO SCH (09:12)
[2019-11-30] MEDS: ASPIRIN 81 MG CHEW TABLET PO SCH (09:12)
[2019-11-30] MEDS ORDERED: PERCOCET 5MG/325MG TAB PO PRN (10:00)
[2019-11-30] MEDS: LOSARTAN 50MG TABLET PO SCH (10:33)
[2019-11-30] MEDS: TORSEMIDE 100 MG TAB PO SCH (10:33)
[2019-11-30] MEDS: KETOROLAC 30 MG/ML 1ML VIAL IV PRN ×2 (10:34→18:05)
--- NOTE | 2019-11-30 12:56 | IPNPDOC ---
Subjective Date Seen The patient was seen on 11/30/19. Subjective Chief Complaint/HPI Patient is a 64 year old female with history of multiple myeloma on chemotherapy, here with diverticulitis complicated by abscess formation. Yest erday, she had drainage of abscess. She is POD#1. Overnight, she had abdominal pain and did not sleep well. This morning, she was lethargic, but arousable. Still complained of abdominal pain, despite sleeping. Surgery had modified her pain regimen. Patient denies fever/chills, chest pain, dyspnea, or dysuria. Constitutional: Denies: Chills Pulmonary: Denies: Dyspnea Cardiovascular: Denies: Chest Pain Gastrointestinal: Reports: Abdominal Pain Genitourinary: Denies: Dysuria Objective Physical Examination General Exam: Positive: Cooperative Eye Exam: Negative: Sclera icteric ENT Exam: Positive: Atraumatic Neck Exam: Positive: Supple Chest Exam: Positive: Clear to auscultation Heart Exam: Positive: Rate Normal, Regular Rhythm Abdomen Exam: Positive: Tenderness Psych Exam: Positive: Other (Lethargic, but arousable) Assessment /Plan Assessment Patient is a 63 year old female with history of multiple myeloma on chemotherapy (Dx 02/2018, Pomalidomide and dexamethasone) here with acute diverticulitis complicated by abscess formation. Yesterday, she went to surgery for drainage. Today is POD#1. Plan/VTE VTE Prophylaxis Ordered?: Yes Plan 1. Acute sigmoid diverticulitis with gas containing abscess - Surgery following, recommendations appreciated - She went for surgery on 11/29/2019. Today is POD#1 - Continue with antibiotics 2. Hypotension - Secondary to diarrhea and dehydration - Resolved, continue to monitor BP 3. Atrial fibrillation - Continue with rate control with digoxin - No on anticoagulation. Just had surgery 4. Pancytopenia - Monitor counts. - S/p 2 units of pRBC. Hemoglobin stable - hold chemotherapy given active infection 5. Multiple myeloma - Diagnosed on 02/2018 - On Pomalidomide and dexamethasone outpatient - Will hold until infection resolves 6. Low back pain 2/2 fall - No focal neurological deficits, no bladder/bowel incontinence - No fracture on imaging, evidence of lytic lesions on R L1 vertebral body suspicious for metastatis - Imaging was discussed with patient - Continue pain control 7. Hypertension - Blood pressure controlled, continue to monitor - Continue losartan 8. COPD - Appears to be stable 9. Fibromyalgia/PTSD - Continue with hydroxyzine 10. RA - Continue pain control 11. GERD - Continue with Protonix 12. DVT ppx - TEDS and SCD VS, I&O, 24H, Fishbone Vital Signs/I&O Vital Signs Date Time Temp Pulse Resp B/P (MAP) Pulse Ox O2 Delivery O2 Flow Rate FiO2 11/30/19 10:30 98.2 73 16 124/63 (83) 98 Room Air 11/30/19 09:00 1.0 I&O- Last 24 Hours up to 6 AM 11/30/19 06:00 Intake Total 1595 ml Output Total 1805 ml Balance -210 ml Laboratory Data 24H LABS Laboratory Tests 2 11/29/19 19:53: Anion Gap 6L, Glomerular Filtration Rate > 60.0, Calcium Level 7.5L 11/30/19 06:47: Anion Gap 6L, Glomerular Filtration Rate > 60.0, Calcium Level 7.2L, Nucleated Red Blood Cells % (auto) 0.0, C-Reactive Protein, Quantitative 4.00H CBC/BMP Laboratory Tests 11/29/19 19:53 11/30/19 06:47 Microbiology Microbiology 11/29/19 Gram Stain - Final, Resulted 11/29/19 Anaerobic Culture, Resulted Pending 11/29/19 Bacterial Culture, Received Pending 11/27/19 Blood Culture - Preliminary, Resulted No Growth after 48 hours. All Specime... 11/27/19 Blood Culture - Preliminary, Resulted No Growth after 48 hours. All Specime... 11/26/19 Gastrointestinal Tract Panel (PCR) - Final, Complete 11/25/19 Blood Culture - Final, Complete NO GROWTH AFTER 5 DAYS 11/25/19 Blood Culture - Final, Complete Staphylococcus Hominis Ssp Chanel ARA LIMON DO Nov 30, 2019 12:56
[2019-11-30] MEDS: PERCOCET 5MG/325MG TAB PO PRN (14:16)
[2019-11-30] MEDS ORDERED: LOPERAMIDE 2 MG CAPLET PO ONE (17:30)
[2019-11-30] MEDS: allopurinoL 100 MG TAB PO SCH (20:43)
[2019-12-01 02:00] VITALS: BP 126/76
[2019-12-01] MEDS: PERCOCET 5MG/325MG TAB PO PRN (04:09)
[2019-12-01 06:00] VITALS: BP 151/87
[2019-12-01 07:55] LABS: HEMATOCRIT 34.5 % (36.0-47.0); MEAN CORPUSCULAR HEMOGLOBIN 32.6 pg (27.0-33.0); MEAN CORPUSCULAR HGB CONC 31.9 g/dl (32.0-36.5); MEAN CORPUSCULAR VOLUME 102.4 fl (80.0-96.0); PLATELET COUNT, AUTOMATED 150 10^3/uL (150-450); RED BLOOD COUNT 3.37 10^6/uL (4.00-5.40); WHITE BLOOD COUNT 3.1 10^3/uL (4.0-10.0)
[2019-12-01 08:08] LABS: BLOOD UREA NITROGEN 14 MG/DL (7-18); CALCIUM LEVEL 7.6 MG/DL (8.8-10.2); CARBON DIOXIDE LEVEL 31 MEQ/L (21-32); CHLORIDE LEVEL 107 MEQ/L (98-107); CREATININE FOR GFR 0.68 MG/DL (0.55-1.30); GLOMERULAR FILTRATION RATE > 60.0 (>45); GLUCOSE, FASTING 130 MG/DL (70-100); POTASSIUM SERUM 4.5 MEQ/L (3.5-5.1); SODIUM LEVEL 143 MEQ/L (136-145)
[2019-12-01 08:39] VITALS: BP 118/66
[2019-12-01] MEDS: VITAMIN D 1,000 INTERNATIONAL UNITS TABLET PO SCH (08:40)
[2019-12-01] MEDS: PANTOPRAZOLE 40MG TAB (PROTONIX) PO SCH (08:40)
[2019-12-01] MEDS: MEROPENEM INJ 1 GM in IV 1 EA IV SCH (08:40)
[2019-12-01] MEDS: OMEGA-3 1000MG CAPSULE PO SCH (08:40)
[2019-12-01] MEDS: ASCORBIC ACID 500 MG TAB PO SCH (08:40)
[2019-12-01] MEDS: LOSARTAN 50MG TABLET PO SCH (08:40)
[2019-12-01] MEDS: ASPIRIN 81 MG CHEW TABLET PO SCH (08:41)
[2019-12-01] MEDS: TORSEMIDE 100 MG TAB PO SCH (08:41)
[2019-12-01] MEDS: ATORVASTATIN 20 MG TAB PO SCH (08:41)
[2019-12-01] MEDS: POTASSIUM CHLORIDE 10 MEQ SR TABLET PO SCH (08:41)
[2019-12-01] MEDS: LORATADINE 10 MG TAB PO SCH (08:41)
[2019-12-01] MEDS: KETOROLAC 30 MG/ML 1ML VIAL IV PRN (08:42)
[2019-12-01] MEDS ORDERED: CIPR500T3 PO (11:50)
[2019-12-01] MEDS ORDERED: PERCOCET PO (11:50)
[2019-12-01] MEDS ORDERED: FLAG500T PO (11:50)
--- NOTE | 2019-12-01 20:12 | DS.PDOC ---
Discharge Summary General Date of Admission Nov 25, 2019 at 12:45 Date of Discharge 12/01/2019 Attending Physician: ARA LIMON DO Specialist/Consultants Involve Surgery Dr. Brown Discharge Summary PROCEDURES PERFORMED DURING STAY: I&D of diverticular abscess. ADMITTING DIAGNOSES: 1. Diverticulitis complicated by abscess. 2. A. fib. 3. Multiple myeloma. 4. COPD 5. Hypertension. 6. Fibromyalgia. 7. RA . 8. Hypotension secondary to dehydration and diarrhea DISCHARGE DIAGNOSES: 1. Diverticulitis complicated by abscess. 2. A. fib. 3. Multiple myeloma. 4. COPD 5. Hypertension. 6. Fibromyalgia. 7. RA . 8. Hypotension secondary to dehydration and diarrhea COMPLICATIONS/CHIEF COMPLAINT: Atrial Fibrillation Diarrhea. HISTORY OF PRESENT ILLNESS: Patient is a 64-year-old female with multiple myeloma treated with Pomalidomide with dexamethasone who was initially here with diarrhea and lightheadedness found to have diverticulitis complicated by absces s. She had 10 to 15 profuse diarrhea in a day . The patient stated that the stools were foul-smelling ,with no blood or mucus. The night prior to admission, she felt lightheaded walking from the bedroom to bathroom and fell. she was then brought to the ED. She was found to be severely dehydrated and in atrial fibrillation. She was given a fluid bolus HOSPITAL COURSE: During her hospitalization. She was rehydrated. Surgery evaluated the patient and drained abscess on 11/29/2019. Bacterial cultures grew Escherichia coli that was pansensitive. Anaerobic cultures are positive for gram-positive cocci in pairs and chains. Today, patient felt well and was interested in going home. Dr. Brown recommended that she would follow-up with him on to remove the TOMMY drain. In addition, Dr. Brown recommended double coverage for anaerobes. Patient had allergy to Cipro. Patient was put on Bactrim DS and metronidazole. Today patient denies any fever, chills, chest pain, short of breath, or dysuria. She still had some abdominal tenderness secondary to surgery. Otherwise, she felt ready for home DISCHARGE MEDICATIONS: Please see below. ALLERGIES: Please see below. PHYSICAL EXAMINATION ON DISCHARGE: VITAL SIGNS: Please see below. GENERAL: Comfortable, in no apparent distress. HEENT: Head normocephalic/atraumatic, EOMI, sclera clear. NECK: Supple, no JVD. RESPIRATORY: Lungs clear to auscultation bilaterally, no rales, wheeze or rhonchi. CARDIOVASCULAR: Regular rate and rhythm. ABDOMEN: Tender, but soft. Normal bowel sounds. MUSCLE SKELETAL: Muscle strength 5/5 in all extremities. NEUROLOGICAL: CN 312 grossly intact, no focal deficits noted. PSYCHOLOGICAL: Normal mood and affect LABORATORY DATA: Please see below. PROGNOSIS: Stable ACTIVITY: As tolerated. Only sponge bath. DIET: Diet DISCHARGE PLAN: Home DISPOSITION: , Self-Care. DISCHARGE INSTRUCTIONS: 1. Follow with Dr. Brown on . 2. Follow-up with her PCP within a week DISCHARGE CONDITION: Stable Total time spent on discharge planning, discharge summary and med reconciliation 45 minutes Vital Signs/I&Os Vital Signs Date Time Temp Pulse Resp B/P (MAP) Pulse Ox O2 Delivery O2 Flow Rate FiO2 12/01/19 08:39 98.7 66 14 118/66 (83) 95 Room Air 11/30/19 21:30 2.0 I&O- Last 24 Hours up to 6 AM 12/01/19 06:00 Intake Total 1580 ml Output Total 1235 ml Balance 345 ml Laboratory Data Labs 24H Laboratory Tests 2 12/01/19 07:29: Nucleated Red Blood Cells % (auto) 0.0, Anion Gap 5L, Glomerular Filtration Rate > 60.0, Calcium Level 7.6L 12/01/19 12:58: Bedside Glucose (Misc Panel) 98 CBC/BMP Laboratory Tests 12/01/19 07:29 FSBS Laboratory Tests Test 12/01/19 12:58 Range/Units Bedside Glucose (Misc Panel) 98 80-115 MG/DL Microbiology Microbiology 11/29/19 Gram Stain - Final, Resulted 11/29/19 Anaerobic Culture, Resulted Pending 11/29/19 Bacterial Culture - Preliminary, Resulted Escherichia Coli 11/27/19 Blood Culture - Preliminary, Resulted No Growth after 72 hours. All specime... 11/27/19 Blood Culture - Preliminary, Resulted No Growth after 72 hours. All specime... 11/26/19 Gastrointestinal Tract Panel (PCR) - Final, Complete 11/25/19 Blood Culture - Final, Complete NO GROWTH AFTER 5 DAYS 11/25/19 Blood Culture - Final, Complete Staphylococcus Hominis Ssp Chanel Discharge Medications Scheduled Allopurinol (Allopurinol) 100 Mg Tablet, 100 MG PO QHS, (Reported) Ascorbic Acid (Vitamin C) 500 Mg Capsule, 500 MG PO DAILY, (Reported) Aspirin (Aspirin) 81 Mg Chw, 81 MG PO DAILY, (Reported) Atorvastatin Calcium (Atorvastatin Calcium) 80 Mg Tablet, 80 MG PO DAILY, (Reported) Cholecalciferol (Vitamin D3) (Vitamin D3) 1,000 Unit Tablet, 2,000 UNITS PO DAILY, (Reported) Ciprofloxacin HCl (Ciprofloxacin HCl) 500 Mg Tablet, 500 MG PO BID Losartan Potassium (Losartan Potassium) 100 Mg Tablet, 100 MG PO DAILY, (Reported) Metronidazole (Flagyl) 500 Mg Tablet, 500 MG PO Q8H FOR 10 DAYS [place]-3 Fatty Acids/Fish Oil (Fish Oil 1,000 mg Capsule) 1 Each Capsule, 1,000 MG PO DAILY, (Reported) Pantoprazole Sodium (Pantoprazole Sodium) 40 Mg Tablet.dr, 40 MG PO BID, (Reported) Pomalidomide (Pomalyst) 2 Mg Capsule, 2 MG PO ASDIRECTED, (Reported) 2MG DAILY FOR 21 DAYS, OFF FOR 7 DAYS THEN RESUME. PT CURRENTLY ON DAY 7 Potassium Chloride (Potassium Chloride) 10 Meq Tab.er.prt, 40 MEQ PO BID, (Reported) Torsemide (Torsemide) 100 Mg Tablet, 100 MG PO DAILY, (Reported) Vitamin B Complex (Vitamin B Complex) 1 Each Tablet, 1 TAB PO DAILY, (Reported) Scheduled PRN Colchicine (Colchicine) 0.6 Mg Tablet, 0.6 MG PO DAILY PRN for GOUT PAIN, (Reported) Docusate Sodium (Docusate Sodium) 100 Mg Capsule, 100 MG PO QHS PRN for CONSTIPATION, (Reported) Hydroxyzine HCl (Hydroxyzine HCl) 25 Mg Tablet, 25 MG PO DAILY PRN for ITCHING, (Reported) Loperamide HCl (Loperamide) 2 Mg Capsule, 2 CAP PO Q6H PRN for DIARRHEA Oxycodone/Acetaminophen (Oxycodone-Acetaminophen 5-325) 1 Each Tablet, 1 TAB PO Q4HP PRN for MILD/MODERATE PAIN (PS 1-7) Prochlorperazine Maleate (Prochlorperazine Maleate) 10 Mg Tablet, 10 MG PO Q6H PRN for NAUSEA OR VOMITING Tramadol HCl (Tramadol HCl) 50 Mg Tablet, 50 MG PO Q6H PRN for PAIN, (Reported) Allergies Coded Allergies: Penicillins (Verified Allergy, Severe, THROAT SWELLING/RASH, 11/27/19) Quinolones (Verified Allergy, Intermediate, hives, 10/02/19) carisoprodol (Verified Allergy, Intermediate, hives, 10/02/19) ciprofloxacin (Verified Allergy, Intermediate, SCRATCHY THROAT, 11/27/19) doxycycline (Verified Allergy, Intermediate, HIVES, 11/27/19) gabapentin (Verified Allergy, Intermediate, hives, 10/02/19) spironolactone (Verified Allergy, Intermediate, hives, 10/02/19) amitriptyline (Verified Adverse Reaction, Intermediate, "PASS OUT", 11/27/19) ibuprofen (Verified Adverse Reaction, Intermediate, renal issues, 11/27/19) metformin (Verified Adverse Reaction, Intermediate, DIARRHEA, 11/25/19) ARA LIMON DO Dec 01, 2019 20:12
[2019-12-23] MEDS ORDERED: POMA2CAP PO (21:14)
[2019-12-27] MEDS ORDERED: TRAM50TA2 PO (14:51)
[2019-12-30] MEDS ORDERED: DEXA4TA PO (14:50)
[2019-12-30] MEDS ORDERED: CLAR10CA3 PO (14:50)
[2020-01-13] MEDS ORDERED: MORP15TA2 PO (09:26)
[2020-01-13] MEDS ORDERED: MAGN400C2 PO (09:26)
[2020-01-16] MEDS ORDERED: POMA2CAP PO (12:34)
--- NOTE | 2020-01-29 03:18 | ROOPDOC ---
[facility] Report Of Operation Report of Operation DATE OF PROCEDURE: 11/29/19 PREPROCEDURE DIAGNOSES: Acute diverticulitis with pericolic abscess. POSTPROCEDURE DIAGNOSES: Acute diverticulitis with pericolic abscess. PROCEDURE: Laparoscopic Drainage of abscess. SURGEON: Iraj Brown MD HEATING AND COOLING SYSTEMS ENGINEER: ANESTHESIA: General Anesthesia. ESTIMATED BLOOD LOSS: Approximately 10 mL. COMPLICATIONS: none. REMARKS: 64 F admitted for abdominal pain and found to have evidence for sigmoid diverticulitis with a pericolic abscess on the left pelvic sidewall which Radiology could not drain percutaneously. DESCRIPTION OF PROCEDURE: Patient is receiving meropenem and metronidazole IV preoperatively for treatment of her diverticulitis. She is hemodynamically stable but has persistent pain in the left lower quadrant and initial trial of nonoperative therapy fails to resolve the abscess. This we discussed laparoscopic drainage of abscess versus sigmoid colon resection with colostomy and options. She was brought to the operating room, placed supine on the table. Bilateral compression boots were placed on both lower extremities were DVT prophylaxis. Gen. endotracheal anesthesia was started. A Agustin catheter placed for urine output monitoring. Her abdomen was then widely prepped and draped in the usual sterile fashion.We paused for a surgical timeout using both pre-incision safety checklist to verify correct patient, procedure site and additional clinical information prior to beginning the procedure I began the procedure with left upper quadrant entry. A Veress needle was inserted in a controlled fashion. Proper placement confirmed with saline drop technique. CO2 insufflation and started to pressure 15 mmHg. A 5 mm port was introduced in the same site under direct vision of laparoscope. The insertion site was inspected for injury and none was found. She was then placed in a steep Trendelenburg position, the table tilted towards the right side to have an adequate view of the pelvis. The working ports were then established. A slight supraumbilical 5 mm port was introduced likewise a right lower quadrant 5 mm port and a 5 mm suprapubic port. On diagnostic laparoscopy, there were no free fluid. There were some mild small bowel ileus. Initially the small bowel was covered with thick omentum with inflammatory adhesion of the omentum towards the left lower quadrant area where the inflamed portion of sigmoid colon is noted. The omentum was lysed sharply with a LigaSure device this was then retracted towards the epigastric area. The small bowel was retracted out of the pelvis. The small bowel since to be free. There were no fluid collection inside of the pelvis. Inflamed portion of the sigmoid colon seems to occur at the midpoint of the sigmoid colon going distally. There was swelling and hardening of the pericolic fatty appendages likewise the mesocolic mesentery which had some slight bulging where the abscess is. This was adhered broadly to the left pelvic sidewall. Mostly with blunt dissection the cavity of the abscess was entered with immediate drainage of purulent material though no signs of fecal drainage. The abscess was suctioned off, a sample obtained for Gram stain and culture. The cavity was irrigated and the capsule or inflammatory rind was further divided. The whole itself was not evident. I observed the area for a while to look for fecal drainage and once there was no drainage was satisfied that a laparoscopic placement of the drain would be successful. I threaded a 19 Bryson drain into the abscess cavity coming off from the right side 5 mm port. A survey of the abdomen was performed. The small bowel and omentum was placed back in their anatomic position. The abdomen was then deflated. All ports removed. The drain secured to the skin with 2-0 silk. All skin incisions closed with 4-0 Monocryl in subcuticular fashion. Dermabond was used as a dressing. Patient remained hemodynamically stable throughout the procedure. She was successfully awakened, extubated her Agustin catheter was removed. She was brought to the recovery room in a stable condition.. IRAJ BROWN MD Jan 29, 2020 03:18
== END 2019-12-01 14:49 | disposition home health service (06) | DRG 391 ==
LOC: EDBD 09:34 → M ED 09:34 → M ED INP 12:45 → M ICU 15:21 → M PCU 11-26 11:37 → M MSPAV 11-27 14:15
PROVIDERS: ADMIT Internal Medicine; ATTEND Internal Medicine
PROC: 30233N1 Transfusion of Nonautologous Red Blood Cells into Peripheral Vein, Percutaneous Approach (ICD-10-PCS; 2019-11-27)
PROC: 0D9 Gastrointestinal System, Drainage (ICD-10-PCS; principal; 2019-11-29 09:30)
DX: K57.20 Diverticulitis of large intestine with perforation and abscess without bleeding (principal); D61.810 Antineoplastic chemotherapy induced pancytopenia; C90.00 Multiple myeloma not having achieved remission; K56.7 Ileus, unspecified; E86.0 Dehydration; I48.91 Unspecified atrial fibrillation; M06.9 Rheumatoid arthritis, unspecified; J44.9 Chronic obstructive pulmonary disease, unspecified; M79.7 Fibromyalgia; I10 Essential (primary) hypertension; F43.10 Post-traumatic stress disorder, unspecified; I95.89 Other hypotension; M54.5 Low back pain; K21.9 Gastro-esophageal reflux disease without esophagitis; Z79.82 Long term (current) use of aspirin; Z88.0 Allergy status to penicillin; Z88.1 Allergy status to other antibiotic agents; Z88.5 Allergy status to narcotic agent; Z88.6 Allergy status to analgesic agent; Z88.8 Allergy status to other drugs, medicaments and biological substances; Z90.49 Acquired absence of other specified parts of digestive tract; Z20.828 Contact with and (suspected) exposure to other viral communicable diseases

== ENCOUNTER → 2019-12-06 | Outpatient (REF) | payer MEDICARE, MEDICAID ==
[~2019-12-06] MED LIST changes: +CIPR500T3 PO; +CLAR10CA3 PO; +DEXA4TA PO; +FLAG500T PO; +HYDR-3363 PO; +MORP15TA2 PO; +PERCOCET PO
[2019-12-06 19:13] LABS: CALCIUM LEVEL 8.1 MG/DL (8.8-10.2); CREATININE FOR GFR 1.02 MG/DL (0.55-1.30); GLOMERULAR FILTRATION RATE 57.9 (>45)
== END ==
LOC: M SHH 17:29
PROVIDERS: ATTEND Family Medicine
DX: I48.91 Unspecified atrial fibrillation (principal); I10 Essential (primary) hypertension; J44.9 Chronic obstructive pulmonary disease, unspecified

== ENCOUNTER → 2019-12-20 | Outpatient (REF) | payer MEDICARE, MEDICAID ==
[2019-12-20 14:05] LABS: APPEARANCE, URINE CLEAR (CLEAR); BACTERIA, URINE AUTO NEGATIVE (NEGATIVE); BILIRUBIN, URINE AUTO NEGATIVE (NEGATIVE); BLOOD, URINE BLOOD NEGATIVE (NEGATIVE); COLOR, URINE STRAW (YELLOW); GLUCOSE, URINE (UA) AUTO NEGATIVE (NEGATIVE); KETONE, URINE AUTO NEGATIVE (NEGATIVE); LEUKOCYTE ESTERASE, URINE AUTO TRACE (NEGATIVE); NITRITE, URINE AUTO NEGATIVE (NEGATIVE); PROTEIN, URINE AUTO NEGATIVE (NEGATIVE); RBC, URINE AUTO 0 /HPF (0-3); SPECIFIC GRAVITY URINE AUTO 1.005 (1.002-1.035); SQUAMOUS EPITHELIAL CELL UR AU 2 /HPF (0-6); UROBILINOGEN, URINE AUTO 0.2 mg/dL (0.0-2.0); WBC, URINE AUTO 2 /HPF (0-3)
[2019-12-20 14:28] LABS: HEMOGLOBIN A1c 6.1 %
== END ==
LOC: M SFHCPLAZ 10:40
PROVIDERS: ATTEND Family Medicine
DX: E11.9 Type 2 diabetes mellitus without complications (principal); R82.998 Other abnormal findings in urine; Z23 Encounter for immunization
CPT/HCPCS: 36415; 81001; 83036; 87086; 90682; G0008; G0463

== ENCOUNTER 2020-03-24 12:38 | Inpatient (IN) | payer MEDICARE, MEDICAID ==
[~2020-03-24] VITALS: Ht 165.1 cm; Wt 86.2 kg
[~2020-03-24 12:38] MED LIST changes: -AMIT25TA PO; +AMIT25TA17 PO; +COLC0.6T47 PO; -COLC1TAB13 PO
[2020-03-24] MEDS ORDERED: diphenhydrAMINE 50MG/ML VIAL (J1200) IV STA (13:04)
[2020-03-24] MEDS ORDERED: METOCLOPRAMIDE INJ 10MG/2ML VIAL (J2765 PER 1) IV ONE (13:15)
[2020-03-24 13:37] LABS: BASO % 0.3 % (0.0-1.0); EOS % 0.6 % (0.0-3.0); HEMATOCRIT 28.8 % (36.0-47.0); HEMOGLOBIN 9.4 g/dl (12.0-15.5); LYMPH # 0.8 10^3/uL (1.5-5.0); LYMPH % 25.8 % (24.0-44.0); MEAN CORPUSCULAR HEMOGLOBIN 33.6 pg (27.0-33.0); MEAN CORPUSCULAR HGB CONC 32.6 g/dl (32.0-36.5); MEAN CORPUSCULAR VOLUME 102.9 fl (80.0-96.0); MONO # 0.2 10^3/uL (0.0-0.8); MONO % 7.1 % (0.0-5.0); NEUTROPHILS % 65.6 % (36.0-66.0); WHITE BLOOD COUNT 3.1 10^3/uL (4.0-10.0)
[2020-03-24 13:40] LABS: PLATELET COUNT, AUTOMATED 93 10^3/uL (150-450)
--- NOTE | 2020-03-24 13:54 | REP ---
INDICATION: CHEST PAIN. COMPARISON: 11/25/2019. TECHNIQUE: Single frontal portable view of the chest is performed. FINDINGS: There is cardiomegaly. There is mild vascular congestion. There is chronic interstitial prominence in the lung bases bilaterally unchanged since prior studies. There is some tortuosity of the thoracic aorta. The mediastinal silhouette is unchanged. There are degenerative changes of the spine. IMPRESSION: Cardiomegaly and stable chronic mild vascular congestion and interstitial prominence. <Electronically signed by Sae Alfredo > 03/24/20 2228
--- OUTSIDE RECORDS SUMMARY | 2020-03-24 13:57 | CCD ---
Author Author [facility] Organization [facility] Address Unknown Phone Unavailable Care Team Providers Care Mortician Investigator Name Role Phone Jaye Scales Unavailable PROBLEMS Type Condition ICD9-CM Code VYX35-GE Code Onset Dates Condition S tatus SNOMED Code Notes Problem Mixed hyperlipidemia E78.2 Active 406220466 Problem Vitamin D deficiency, unspecified E55.9 Active 40501017 Problem Other obesity E66.8 Active 959598587 Problem Gastro-esophageal reflux disease without esophagitis K21.9 Active 602029585 Problem Obstructive sleep apnea (adult) (pediatric) G47.33 Active 54819823 Problem Anxiety F41.9 Active 24457405 Problem Chronic obstructive pulmonary disease, unspecified J44.9 Active 27798960 Problem Nocturnal leg cramps G47.62 Active 383640781 Problem Night terrors F51.4 Active 23564656 Problem Allergic rhinitis, unspecifi ed allergic rhinitis trigger, unspecified rhinitis seasonality J30.9 Active 09712516 Problem Fibromyalgia M79.7 Active 271465062 Problem Essential (primary) hypertension I10 Active 42660760 Problem Rheumatoid arthritis involvi ng multiple sites with positive rheumatoid factor M05.79 Active 797710024 Problem Osteoarthritis of spine with radiculopathy, lumbar region M47.26 Active 385175056 Problem Gout, unspecified cause, unspecified chronicity, unspecified site M10.9 Active 23763523 Problem Varicose veins with pain I83.819 Active 8799641 09 Problem Thrombocytopenia D69.6 Active 199990623 Problem Moderate episode of recurrent major depressive disorder F33.1 Active 754053069 Problem Varicose veins of both lower extremities with pain I83.813 Active 67861075 Problem 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 Active 662225166 Problem Seronegative rheumatoid arthritis M06.00 Active 054995997 Problem Multiple myeloma not having achieved remission C90 .00 Active 861146288 Problem Controlled type 2 diabetes m ellitus without complication, without long- term current use of insulin E11.9 Active 68802271 4 Problem Psychophysiologic insomnia F51.04 Active 41905 2009 Problem Hypomagnesemia E83.42 Active 319123222 Problem Other chronic pain G89.29 Active 93130023 Problem Nephrolithiasis N20.0 Active 96704763 Problem Slow transit constipation K59.01 Active 822834 07 Problem Diverticulosis of colon without diverticulitis K57 .30 Active 666418214 Problem Tension headache G44.209 Active 879389128 ALLERGIES Allergen (clinical drug ingredient) Drug/Non Drug Allergy do cumented on EMR Reaction Allergy Type Onset Date Status acetaminophen / oxycodone Percocet(ND Code:[address]-22) facia l swelling Drug Allergy Active ibuprofen IBU(NDC Code:[address]-56) Kidneys Drug Allergy Active tramadol Tramadol HCl(NDC Code:[address]-58) Throat swelling Drug Allergy Active amitriptyline Amitriptyline HCl(NDC Code:[address]-59) Throat swelling Drug Allergy Active ciprofloxacin Cipro(NDC Code:[address]-20) Hives Drug Allergy Active Penicillin (For Allergies Use Only) hives Drug Allerg y Active spironolactone Spironolactone(NDC Code:[address]-63) Hives Drug Allergy Active doxycycline Doxycycline(NDC Code:[address]-26) Sweating Drug Aller gy Active ENCOUNTERS from 1955 to 2020-03-02 Encounter Location Date Provider Diagnosis [address] [address] Feb, Jaye Yordy IMMUNIZATIONS Vaccine Route Administration Date Status Influenza (18 yrs & older) Flublok IM Intramuscular Dec 20, 2019 Administered Influenza (18 yrs & older) Flublok IM Intramuscular Dec 17, 2018 Administered Influenza (18 yrs & older) Flublok IM Intramuscular Feb 21, 2018 Administered TDAP 0.5mL (Boostrix) IM Intramuscular Dec 17, 2018 Administe red Influenza (6mo & up) Fluzone IM Intramuscular Jan 18, 2017 Ad ministered Influenza (6mo & up) Fluzone IM Intramuscular Jan 18, 2016 Ad ministered Influenza (6mo & up) Fluzone IM Intramuscular Nov 26, 2013 Ad ministered Influenza (6mo & up) Fluzone IM Intramuscular Nov 29, 2011 Ad ministered SOCIAL HISTORY Tobacco Use: Social History Observation Description Date Details (start date - stop date) Former Smoker Sex Assigned At : Social History Observation Description Sex Assigned At Unknown Education: Question Answer Notes Level of Education: Not finished High School Audit Question Answer Notes Total Score: 0 Interpretation: Alcohol Education Language: Question Answer Notes Languages spoken: Yemeni Sikh: Question Answer Notes Sikh 14 Anabaptist Sexual Hx: Question Answer Notes Had sex in the last 12 months (vaginal, oral, or anal)? No Have you ever had an STD? No Drug and Alcohol Question Answer Notes Total Score: 0 Interpretation: No problems reported Alcohol Screening: Question Answer Notes Did you have a drink containing alcohol in the past year? No Points 0 Interpretation Negative BMI Care Goal Follow-Up Question Answer Notes Above Normal BMI Follow-Up Giving encouragement to exercise Tobacco Use: Question Answer Notes Are you a: former smoker How long has it been since you last smoked? > 10 years REASON FOR REFERRAL No Information VITAL SIGNS No information MEDICATIONS Medication SIG (Take, Route, Frequency, Duration) Notes Start Da te End Date Status Fish Oil 1000 MG 1 capsule Orally Once a day for 90 Active Cozaar 100 MG 1 tablet Orally Once a day for 90 Active Colchicine 0.6 MG 1 tablet Orally Once a day as needed Active Atorvastatin Calcium 80 MG 1 tablet Orally Once a day for 90 day (s) Sep, Active Torsemide 100 MG 1 tablet Orally Once a day Active Cimetidine 800 MG 1 tablet at bedtime Orally Twice a day Not-Taking Potassium Chloride ER 10 MEQ 4 tablets Orally Twice a day for 30 Active Loperamide HCl 2 MG 1 capsule as needed Orally Four times a day as ne eded Active Colace 100 MG 1 capsule as needed Orally Once a day for 90 days Active Aspirin 81 81 MG 1 tablet Orally Once a day for 90 Active Aveeno Calming Body Wash - as directed Externally Daily for 30 d ay(s) Aug, Active Tramadol HCl 50 MG 1 tablet as needed Orally as needed every 6 hours Active TraZODone HCl 50 MG 0.51 tablet at bedtime as ne eded Orally Once a day for 30 day(s) Dec, Active Pomalyst 2 MG 1 capsule for 21 days then 7 days off Orally Once a day Active MiraLax - 1 packet mixed with 8 ounces of fluid Or ally Once a day for 30 day(s) Jan, Active Allopurinol 100 MG 1 tablet Orally Once a day for 90 Active MetFORMIN HCl ER 750 MG 1 tablet with evening meal Orally bid fo r 90 day(s) Sep, Not-Taking Sucralfate 1 GM 1 tablet on an empty stomach Orally four times a day Not-Taking Vitamin D3 2000 UNIT 1 capsule Orally Once a day for 90 days Active Tizanidine HCl 2 MG 1 tablet as needed Orally Three times a day for 30 Days Dec, Active Protonix 40 MG 1 tablet Orally twice a day Active Misc. Devices - as directed Shower bar; Dx R55 July, 0 Active Lidocaine 1.8 % 1 patch to skin remove after 12 hours Externally On ce a day Active Famotidine 40 MG 1 tablet at bedtime Orally Once a day Active Aveeno Daily Moisturizer - as directed Externally Daily for 30 d ay(s) Aug, Active PROCEDURES No Information RESULTS No Results REASON FOR VISIT Nausea, diarrhea MEDICAL (GENERAL) HISTORY Type Description Date Medical History HTN - Dr. Sherwood Medical History Lower Extremity edema/facial edema - Dr. Shaw/Dr. Sherwood Medical History Osteoarthritis (C-spine, LS spine) Medical History Chronic low back pain with r adiculitis (known DDD of LS spine) Dr. Marino, ortho in [place] Medical History Insomnia Medical History H/O depression in remote past Medical History GERD Medical History Allergic rhinitis Medical History Rheumatoid arthritis - follows in [facility] Medical History Gout Medical History COPD: Dr. Saavedra Medical History Hyperlipidemia Medical History Fibromyalgia Medical History Diabetes mellitus type 2 - diet controll ed Medical History NAM - uses CPAP Medical History Multiple Myeloma - [facility], [facility] Onc Surgical History hysterectomy for menorrhagia 2000 Surgical History cholecystectomy 1999 Surgical History thyroidectomy, parital 2003 Surgical History Removal of kidney stone Surgical History colonoscopy 10/[address] Repair Dr. Pearl 12/29/2015 Surgical History Right wrist lump removed 09/2016 Surgical History Colonoscopy - tubular adenomas removed; Dr. Rodriguez 11/2016 Surgical History EGD - esophagitis, gastrisits; Dr. Melgar 02/2019 Hospitalization History Near syncope 04/2011 Hospitalization History Depression/suicidal attempt admitted twice (once at [facility] and once at [facility]) 1996- Hospitalization History [facility] ER- UTI, Edema, unspecif ied- bilateral lower extremities 11/02/2015 Hospitalization History [facility] ER- UTI, Pyelonephritis, Diverticulosis of large intestine without perforation or abcess without bleeding 11/09/2015 Hospitalization History Hernia Repair--Dr. Pearl Hospitalization History tachacardia, 11/2019 Goals Section No Information Health Concerns No Information MEDICAL EQUIPMENT No Information MENTAL STATUS No Information FUNCTIONAL STATUS No Information ASSESSMENTS No Information PLAN OF TREATMENT Medication Medication Name Sig Start Date Stop Date Aspirin 81 81 MG 1 tablet Orally Once a day for 90 Tizanidine HCl 2 MG 1 tablet as needed Orally Three times a day for 30 Days Dec, Atorvastatin Calcium 80 MG 1 tablet Orally Once a day for 90 day(s) Sep, TraZODone HCl 50 MG 0.51 tablet at bedtime as ne eded Orally Once a day for 30 day(s) Dec, Potassium Chloride ER 10 MEQ 4 tablets Orally Twice a day for 30 Cozaar 100 MG 1 tablet Orally Once a day for 90 Next Appt Details Provider Name:Jaye Scales, 2020-03-24 11:45:00 AM, [address] [place], [address], Insurance Providers Payer Name Payer Address Payer Phone Insured Name Patient Relati onship to Insured Coverage Start Date Coverage End Date [facility] [address] [facility] [phone] FAILS,JEREMI MAY self MEDICAID [id number] [address] [facility] [id number] FAILS,JEREMI MAY self
--- OUTSIDE RECORDS SUMMARY | 2020-03-24 13:57 | CCD ---
Author Author [facility] Organization [facility] Address Unknown Phone Unavailable Care Team Providers Care Occupational Therapy Co Director Name Role Phone Jaye Scales Unavailable PROBLEMS Type Condition ICD9-CM Code CTK04-NM Code Onset Dates Condition S tatus SNOMED Code Notes Problem Mixed hyperlipidemia E78.2 Active 583688488 Problem Vitamin D deficiency, unspecified E55.9 Active 74637524 Problem Other obesity E66.8 Active 288347385 Problem Gastro-esophageal reflux disease without esophagitis K21.9 Active 060625912 Problem Obstructive sleep apnea (adult) (pediatric) G47.33 Active 09534810 Problem Anxiety F41.9 Active 23754502 Problem Chronic obstructive pulmonary disease, unspecified J44.9 Active 88964220 Problem Nocturnal leg cramps G47.62 Active 683843219 Problem Night terrors F51.4 Active 94460037 Problem Allergic rhinitis, unspecifi ed allergic rhinitis trigger, unspecified rhinitis seasonality J30.9 Active 84409534 Problem Fibromyalgia M79.7 Active 345035190 Problem Essential (primary) hypertension I10 Active 21943770 Problem Rheumatoid arthritis involvi ng multiple sites with positive rheumatoid factor M05.79 Active 688569589 Problem Osteoarthritis of spine with radiculopathy, lumbar region M47.26 Active 503911638 Problem Gout, unspecified cause, unspecified chronicity, unspecified site M10.9 Active 15991359 Problem Varicose veins with pain I83.819 Active 2821602 09 Problem Thrombocytopenia D69.6 Active 116101119 Problem Moderate episode of recurrent major depressive disorder F33.1 Active 967424162 Problem Varicose veins of both lower extremities with pain I83.813 Active 15151730 Problem 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 Active 367522347 Problem Seronegative rheumatoid arthritis M06.00 Active 199126259 Problem Multiple myeloma not having achieved remission C90 .00 Active 533207513 Problem Controlled type 2 diabetes m ellitus without complication, without long- term current use of insulin E11.9 Active 02698503 4 Problem Psychophysiologic insomnia F51.04 Active 29142 2008 Problem Hypomagnesemia E83.42 Active 098809202 Problem Other chronic pain G89.29 Active 40205905 Problem Nephrolithiasis N20.0 Active 08877127 Problem Slow transit constipation K59.01 Active 525579 07 Problem Diverticulosis of colon without diverticulitis K57 .30 Active 636797364 Problem Tension headache G44.209 Active 568313592 ALLERGIES Allergen (clinical drug ingredient) Drug/Non Drug Allergy do cumented on EMR Reaction Allergy Type Onset Date Status acetaminophen / oxycodone Percocet(ND Code:[address]-29) facia l swelling Drug Allergy Active ibuprofen IBU(NDC Code:[address]-90) Kidneys Drug Allergy Active tramadol Tramadol HCl(NDC Code:[address]-83) Throat swelling Drug Allergy Active amitriptyline Amitriptyline HCl(NDC Code:[address]-32) Throat swelling Drug Allergy Active ciprofloxacin Cipro(NDC Code:[address]-56) Hives Drug Allergy Active Penicillin (For Allergies Use Only) hives Drug Allerg y Active spironolactone Spironolactone(NDC Code:[address]-03) Hives Drug Allergy Active doxycycline Doxycycline(NDC Code:[address]-59) Sweating Drug Aller gy Active ENCOUNTERS from 1955 to 2019-12-30 Encounter Location Date Provider Diagnosis [address] [address] Dec, Jaye Scales Controlled type 2 diabetes mellitus with out complication, without long- term current use of insulin E11.9 ; Dark urine R82.998 ; Psychophysiologic insomnia F51.04 ; Multiple myeloma not having achieved remission C90.00 ; Other chronic pain G89.29 ; Osteoarthritis of spine with radiculopathy, lumbar region M47.26 ; Rheumatoid arthritis involving multiple sites with positive rheumatoid factor M05.79 ; Fibromyalgia M79.7 ; Back muscle spasm M62.830 and Encounter for immunization Z23 IMMUNIZATIONS Vaccine Route Administration Date Status Influenza [...] Education Language: Question Answer Notes Languages spoken: Libyan Shinto: Question Answer Notes Shinto 14 Sikh Sexual Hx: Question Answer Notes Had sex [...] REASON FOR REFERRAL No Information VITAL SIGNS Weight 186 lbs Dec, Height 64.5 in Dec, BMI 31.43 kg/m2 Dec, Heart Rate 82 /min Dec, Respiratory Rate 18 /min Dec, Temperature 96.9 degrees Fahrenheit Dec, Oximetry 94 Dec, Blood pressure systolic 130 mm Hg Dec, Blood pressure diastolic 76 mm Hg Dec, MEDICATIONS Medication SIG (Take, Route, Frequency, Duration) Start Date En d Date Status Fish Oil 1000 MG 1 capsule Orally Once a day for 90 Active Atorvastatin Calcium 80 MG 1 tablet Orally Once a day for 90 day(s) Sep, Active Colchicine 0.6 MG 1 tablet Orally Once a day as needed Active MetFORMIN HCl ER 750 MG 1 tablet with evening meal Orally bi d for 90 day(s) Sep, Not-Taking Cimetidine 800 MG 1 tablet at bedtime Orally Twice a day Not-Taking Cozaar 100 MG 5 tablet Orally Once a day Active Potassium Chloride ER 10 MEQ 4 tablets Orally Twice a day for 30 Active Torsemide 100 MG 1 tablet Orally Once a day Active Colace 100 MG 1 capsule as needed Orally Once a day for 90 days Active Aspirin 81 81 MG 1 tablet Orally Once a day for 90 Active Aveeno Calming Body Wash - as directed Externally Daily for 30 day(s) Aug, Active Tramadol HCl 50 MG 1 tablet as needed Orally as needed every 6 hour s Active Allopurinol 100 MG 1 tablet Orally Once a day for 90 Active Pomalyst 2 MG 1 capsule for 21 days then 7 days off Orally Once a d ay Active MiraLax - 1 packet mixed with 8 ounces of fluid Or ally Once a day for 30 day(s) Jan, Active Loperamide HCl 2 MG 1 capsule as needed Orally Four times a day as needed Active TraZODone HCl 50 MG 0.51 tablet at bedtime as ne eded Orally Once a day for 30 day(s) Dec, Active Sucralfate 1 GM 1 tablet on an empty stomach Orally four times a da y Not-Taking Vitamin D3 2000 UNIT 1 capsule Orally Once a day for 90 days Active Tizanidine HCl 2 MG 1 tablet as needed Orally Three times a day for 30 Days Dec, Active Protonix 40 MG 1 tablet Orally twice a day Active Misc. Devices - as directed Shower bar; Dx R55 July, Active Lidocaine 1.8 % 1 patch to skin remove after 12 hours Externally On ce a day Active Famotidine 40 MG 1 tablet at bedtime Orally Once a day Active Aveeno Daily Moisturizer - as directed Externally Daily for 30 day(s) Aug, Active PROCEDURES Procedure Date Ordered Result Body Site Immunization: Flublok Quadrivalent (18 years & older) 0.5mL IM (Influenza) 2019-12-20 N/A RESULTS Component Value Reference Range HEMOGLOBIN A1c Reviewed date:12/23/2019 07:07:15 Interpretation: Performing Lab:[facility] [address] [facility] [address] , ,[place] [address] HEMOGLOBIN A1c 6.1 ESTIMATED AVERAGE GLUCOSE 128 60-110 UA URINALYSIS Reviewed date:12/23/2019 07:07:21 Interpretation: Performing Lab:[facility] [address] [facility] [address] , ,[place] [address] URINE CULTURE Reviewed date:12/23/2019 07:07:27 Interpretation: Performing Lab:[facility] [address] [facility] [id number] , ,[place] [address] REASON FOR VISIT F/u Hospitalization at [facility] from 11/24 - 11/30 for afib and diverticulitis complic ated by abscess MEDICAL (GENERAL) HISTORY Type Description Date Medical History HTN - Dr. Sherwood Medical History Lower Extremity edema/facial edema - Dr. Shaw/Dr. Sherwood Medical History Osteoarthritis (C-spine, LS spine) Medical History Chronic low back pain with r adiculitis (known DDD of LS spine) Dr. Marino, ortho in [place] Medical History Insomnia Medical History H/O depression in remote past Medical History GERD Medical History Allergic rhinitis Medical History Rheumatoid arthritis - follows in [place] Medical History Gout Medical History COPD: Dr. Saavedra Medical History Hyperlipidemia Medical History Fibromyalgia Medical History Diabetes mellitus type 2 - diet controll ed Medical History NAM - uses CPAP Medical History Multiple Myeloma - [facility], [facility] Onc Surgical History hysterectomy for menorrhagia 2000 Surgical History cholecystectomy 1999 Surgical History thyroidectomy, parital 2003 Surgical History Removal of kidney stone Surgical History colonoscopy 10/[address] Repair [address]. Pearl 12/29/2015 Surgical History Right wrist lump removed 09/2016 Surgical History Colonoscopy - tubular adenomas removed; Dr. Rodriguez 11/2016 Surgical History EGD - esophagitis, gastrisits; Dr. Ramón malhotra 02/2019 Hospitalization History Near syncope 04/2011 Hospitalization History Depression/suicidal attempt admitted twice (once at [facility] and once at [facility]) 1996- Hospitalization History [facility] ER- UTI, Edema, unspecif ied- bilateral lower extremities 11/02/2015 Hospitalization History [facility] ER- UTI, Pyelonephritis, Diverticulosis of large intestine without perforation or abcess without bleeding 11/09/2015 Hospitalization History Hernia Repair--Dr. Pearl 6 Hospitalization History tachacardia, 11/2019 Goals Section No Information Health Concerns No Information MEDICAL EQUIPMENT No Information MENTAL STATUS No Information FUNCTIONAL STATUS No Information ASSESSMENTS Encounter Date Diagnosis Notes Dec, Osteoarthritis of spine with radiculopathy, lumbar region (ICD-10 - M47.26) Dec, Other chronic pain (ICD-10 - G89.29) Dec, Fibromyalgia (ICD-10 - M79.7) Dec, Rheumatoid arthritis involvi ng multiple sites with positive rheumatoid factor (ICD-10 - M05.79) Dec, Dark urine (ICD-10 - R82.998) Dec, Controlled type 2 diabetes m ellitus without complication, without long-term current use of insulin (ICD-10 - E11.9) Dec, Multiple myeloma not having achieved rem ission (ICD-10 - C90.00) Dec, Psychophysiologic insomnia (ICD-10 - F51 .04) Dec, Encounter for immunization (ICD-10 - Z23 ) Dec, Back muscle spasm (ICD-10 - M62.830) PLAN OF TREATMENT Medication Medication Name Sig [...] tablets Orally Twice a day for 30 Treatment Notes Assessment Notes Clinical Notes Controlled type 2 diabetes mellitus with out complication, without long-term current use of insulin Due for check of A1c, goal A 1c <8.0%. Psychophysiologic insomnia Risks, benefi ts, and most common side effects of new medication were reviewed; the patient verbalized understanding. Back muscle spasm Risks, benefits, and most common side effects of new medication were reviewed; the patient verbalized understanding. Advised this medication may make her sleepy and she should not drive after taking this. Next Appt Details 3 months Reason:F/u Med prob Provider Name:Jaye Scales, 2020-03-24 11:45:00 AM, [address] [place], [address], Follow Up:3 monthsF/u Med prob Insurance Providers Payer Name Payer Address Payer Phone Insured Name Patient Relati onship to Insured Coverage Start Date Coverage End Date [facility] [address] [facility] [id number] FAILS,JEREMI MAY self MEDICAID [facility] [employer] [address] [facility] [id number] FAILS,JEREMI MAY self
--- OUTSIDE RECORDS SUMMARY | 2020-03-24 13:57 | CCD | Continuity of Care Document ---
Author Author Vicky RODRIGUEZ MD Organization Unknown Address [address] [place] [address] Phone [phone] Care Team Providers Care Exhauster Name Role Phone Jaye Scales M.D. AUTM [phone] Problems Active Problems Provider Date Disorder of lung Aki Saavedra MD Onset: 05/26/2014 Dyspnea Aki Saavedra MD Onset: 04/08/2014 Obstructive sleep apnea syndrome Peggy Bright, A.N.P. Onset: 11/09/2011 Social History Type Date Description Comments Sex Unknown ETOH Use Denies alcohol use Recreational Drug Use Denies Drug Use Tobacco Use Start: Unknown End: Unknown Patient is a former smoker Smoking Status Reviewed: 05/07/19 Patient is a former smoker Allergies, Adverse Reactions, Alerts Active Allergies Reaction Severity Comments Date Cipro HIVES 12/28/2011 Penicillin HIVES 12/09/2015 Ibuprofen Kidney Disease 12/09/2015 Spironolactone 03/29/2017 Percocet facial swelling 07/27/2016 Ibuprofen 05/22/2012 Doxycycline Sweating 2018 Amitriptyline Throat swelling 2018 Soma 02/26/2019 Gabapentin 02/26/2019 Famotidine 02/26/2019 Medications Active Medications SIG Qnty Indications Ordering Provide r Date Pantoprazole Sodium 40mg Tablets D R 1 by mouth twice a day (reflux, difficult swallowing) 60tabs R10.13 Valdemar Rodriguez MD 03/26/2019 CPAP 10cm(marras) Aki Saavedra MD 10/2018 Vitamin D 2000Unit Capsules po daily 90caps Unknown Allopurinol 100mg Tablets 1 by mouth every day Unknown Fish Oil 1000mg Capsules 1 by mouth every day Unknown Potassium Chloride ER 10Meq Tablet s ER 2 daily Unknown Torsemide 100mg Tablets daily Unknown Aspirin [address] 1 by mouth every day Unknown Atorvastatin Calcium 40mg Tablets once a day Unknown Colchicine 0.6mg Capsules 1 by mouth daily Unknown Colace 100mg Capsules 1 tab by mouth daily Unknown Benadryl Allergy 25mg Tablets take 1 Tab prn Unknown Cimetidine 800mg Tablets 1 bi d Unknown Losartan Potassium 100mg Tablets daily Unknown Acyclovir 400mg Tablets bid prophylaxis zoster Unknown Immunizations CPT Code Status Date Vaccine Lot # [id number] Given 02/04/2016 Influenza Virus Split 3 Yrs And Above For Intramuscular Use 42811 Given 12/26/2013 Influenza Virus Split 3 Yrs And Above For Intramuscular Use Q2036 Given 12/28/2011 Influenza Vaccine 3 Years Of Age Or Older (Flulaval) Q2036 Given 01/07/2011 Influenza Vaccine 3 Years Of Age Or Older (Flulaval) Vital Signs Date Vital Result Comment 12/05/2019 1:06pm BP Systolic 122 mmHg BP Diastolic 68 mmHg Height 62.50 inches 5'2.50" Weight 184.00 lb BMI (Body Mass Index) 33.1 kg/m2 [place] Body Weight 110 lb Weight 83.462 kg BSA (Body Surface Area) 1.86 m2 05/07/2019 1:25pm BP Systolic 118 mmHg BP Diastolic 68 mmHg Heart Rate 77 /min O2 % BldC Oximetry 98 % Room Air Height 62.50 inches 5'2.50" Weight 187.00 lb BMI (Body Mass Index) 33.7 kg/m2 [place] Body Weight 110 lb Weight 84.823 kg BSA (Body Surface Area) 1.87 m2 Results Test Acquired Date Facility Test Result H/L Range Note Laboratory test finding 10/04/2019 [facility] Main Lab [address] [place] [address] [phone] Pathology Request For Service (SEE NOTE) 1 1 FINAL DIAGNOSIS A - Gastric biopsy: Gastric mucosa with regenerative changes, no acute inflammation or H. Pylori are identified. B - Colon polyps, polypectomy: Small fragments of colonic mucosa and abundant fecal matter. No adenoma or dysplasia is noted. 11/12/2019 - 44 CLINICAL DIAGNOSIS Abdominal pain and colon polyps. 11/05/2019 - 1315 GROSS DIAGNOSIS A - Received in formalin labelled gastric biopsy, are 3 fragments, 0.3-0.4cm. all in one. B - Received in formalin labelled snare colon polyps, is a 1 x1 x0.3 cm aggregate of tissue fragments and fecal matter, all in one. YZ 11/12/2019 - 44 Signed Zaira Landrum M.D. 11/12/2019 0847 Procedures Date Code Description Status 10/04/2019 72929 Colonoscopy W/ Poly Completed 10/04/2019 45911 Endoscopy Upper GI Biopsy Comple [facility] Description No Information Available Encounters Description No Information Available Assessments Date Code Description Provider 10/04/2019 Z12.11 Encounter for screening for cornelia gnant neoplasm of colon Valdemar Rodriguez MD 10/04/2019 Z86.010 Personal history of colonic poly ps Valdemar Rodriguez MD 10/04/2019 K63.5 Polyp of colon Valdemar Rodriguez MD 10/04/2019 K57.30 Diverticulosis of la rge intestine without perforation or abscess without bleeding Valdemar Rodriguez MD 10/04/2019 K29.50 Unspecified chronic gastritis wi thout bleeding Valdemar Rodriguez MD Plan of Treatment Future Appointment(s):* 05/11/2020 9:30 am - Aki Saavedra MD at [facility] Pulmonary/Thoracic Functional Status Description No Information Available Mental Status Description No Information Available Referrals Description No Information Available
--- OUTSIDE RECORDS SUMMARY | 2020-03-24 13:59 | CCD ---
Author Author [facility] Organization [facility] Address Unknown Phone Unavailable Support Name Relationship Address Phone Giuliano MALLOY Next Of Kin [address] [facility] [address] GL[place] [address] [place] [address] WILLY HAMMOND Next Of Kin Unknown REYNALDO CALERO Next Of Kin [address] [place] [address] DR GLASS [address] [place] [address] GUILLAUME HUSSEIN Next Of Kin [address] [place] [address] LORENA LLANES Next Of Kin Unknown Unavailable JUDY HAMMOND Next Of Kin [address] [place] [address] DR GLASS [address] [place] [address] JUDY CALERO Next Of Kin [address] [place] [address] PENELOPE HUSSEIN Next Of Kin NA Unknown DISABLED Next Of Kin Unknown Unavailable [place] [address] [id number] DISABLE Next Of Kin Unknown Unavailable JUSTYN H[place]MON[place] [address] UE Next Of Kin Unknown Unavailable DISABILITY Next Of Kin X X, X X MARY MALLOY Next Of Kin [address] [facility] [address] [place] [address] [place] [address] ANDREW H[place] [id number] reynaldo calero [facility] [address] [place] [address] Unavailable Neva Llanes ECON Unknown Guillaume Hussein ECON [address] [place] [address] Unavailable Mary Malloy ECON [address] [phone] Care Team Providers Care Senior Financial Name Role Phone [facility] Unavailable Unavailable Jumalon, M Ludmila SPINDRAW OPERATOR Unavailable Unavailable Jumalon, M Ludmila SPINDRAW OPERATOR Unavailable Unavailable Jumalon, M Ludmila SPINDRAW OPERATOR Unavailable Unavailable Jumalon, M Ludmila SPINDRAW OPERATOR Unavailable Unavailable Jumalon, M Ludmila SPINDRAW OPERATOR Unavailable Unavailable Jumalon, M Ludmila SPINDRAW OPERATOR Unavailable Unavailable Jumalon, M Ludmila SPINDRAW OPERATOR Unavailable Unavailable Jumalon, M Ludmila SPINDRAW OPERATOR Unavailable Unavailable Jumalon, M Ludmila SPINDRAW OPERATOR Unavailable Unavailable Jumalon, M Ludmila SPINDRAW OPERATOR Unavailable Unavailable Jumalon, M Ludmila SPINDRAW OPERATOR Unavailable Unavailable Jumalon, M Ludmila SPINDRAW OPERATOR Unavailable Unavailable Jumalon, M Ludmila SPINDRAW OPERATOR Unavailable Unavailable Jumalon, M Ludmila SPINDRAW OPERATOR Unavailable Unavailable Jumalon, M Ludmila SPINDRAW OPERATOR Unavailable Unavailable Jumalon, M Ludmila SPINDRAW OPERATOR Unavailable Unavailable Jumalon, M Ludmila SPINDRAW OPERATOR Unavailable Unavailable Jumalon, M Ludmila SPINDRAW OPERATOR Unavailable Unavailable Jumalon, M Ludmila SPINDRAW OPERATOR Unavailable Unavailable Jumalon, M Ludmila SPINDRAW OPERATOR Unavailable Unavailable Jumalon, M Ludmila SPINDRAW OPERATOR Unavailable Unavailable Jumalon, M Ludmila SPINDRAW OPERATOR Unavailable Unavailable Jumalon, M Ludmila SPINDRAW OPERATOR Unavailable Unavailable Jumalon, M Ludmila SPINDRAW OPERATOR Unavailable Unavailable Jumalon, M Ludmila SPINDRAW OPERATOR Unavailable Unavailable Jumalon, M Ludmila SPINDRAW OPERATOR Unavailable Unavailable Jumalon, M Ludmila SPINDRAW OPERATOR Unavailable Unavailable Jumalon, M Ludmila SPINDRAW OPERATOR Unavailable Unavailable Diana Sherwood MD Unavailable Unavailable Diana Sherwood MD Unavailable Unavailable Diana Sherwood MD Unavailable Unavailable Diana Sherwood MD Unavailable Unavailable Diana Sherwood MD Unavailable Unavailable Diana Sherwood MD Unavailable Unavailable Diana Sherwood MD Unavailable Unavailable Diana Sherwood MD Unavailable Unavailable Diana Sherwood MD Unavailable Unavailable Diana Sherwood MD Unavailable Unavailable Diana Sherwood MD Unavailable Unavailable Diana Sherwood MD Unavailable Unavailable Diana Sherwood MD Unavailable Unavailable SleDiana riley MD Unavailable Unavailable SlemilikaRosendatech Unavailable Unavailable SlemilikaGarthjtech Unavailable Unavailable SlemilikaRosendatech Unavailable Unavailable SlemilikaGarthjtech Unavailable Unavailable SlemilikaDiana MD Unavailable Unavailable SlezkaGarthjtech Unavailable Unavailable SlemilikaGarthjtech Unavailable Unavailable SlezkaGarthjtech Unavailable Unavailable SlemilikaRosendatech Unavailable Unavailable SlemilikaGarthjtech Unavailable Unavailable SlemilikaDiana MD Unavailable Unavailable SlezkaGarthjtech Unavailable Unavailable SlemilikaGarthjtech Unavailable Unavailable SlezkaGarthjtech Unavailable Unavailable SlemilikaRosendatech Unavailable Unavailable SleRosenda rileytech Unavailable Unavailable Diana Sherwood MD Unavailable Unavailable SleRosenda rileytech Unavailable Unavailable SleRosenad rileytech Unavailable Unavailable Garth Sherwoodjtech Unavailable Unavailable Rosenda Sherwoodtech Unavailable Unavailable Diana Sherwood MD Unavailable Unavailable Diana Sherwood MD Unavailable Unavailable Rosenda Sherwoodtech Unavailable Unavailable Rosenda Sherwoodtech Unavailable Unavailable SleGarth rileyjtech Unavailable Unavailable Diana Sherwood MD Unavailable Unavailable Diana Sherwood MD Unavailable Unavailable Diana Sherwood MD Unavailable Unavailable Rosenda Sherwoodtech Unavailable Unavailable SleRosenda rileytech Unavailable Unavailable SleGarth rileyjtech Unavailable Unavailable Rosenda Sherwoodtech Unavailable Unavailable Diana Sherwood MD Unavailable Unavailable Rosenda Sherwoodtech Unavailable Unavailable Diana Sherwood MD Unavailable Unavailable SlemilikaRosendatech Unavailable Unavailable Diana Sherwood MD Unavailable Unavailable SleRosenda rileytech Unavailable Unavailable Rosenda Sherwoodtech Unavailable Unavailable Rosenda Sherwoodtech Unavailable Unavailable Rosenda Sherwoodtech Unavailable Unavailable Natty Armstrong Unavailable Unavailable Natty Armstrong Unavailable Unavailable Natty Armstrong Unavailable Unavailable Natty Armstrong Unavailable Unavailable [place] Nattysiva Sky Unavailable Unavailable Nathaniel, Nattysiva Sky Unavailable Unavailable SaratogaNatty berrios Unavailable Unavailable Natty Armstrong Unavailable Unavailable MELIZA LANDRUM MD Unavailable Unavailable MELIZA LANDRUM MD Unavailable Unavailable MELIZA LANDRUM MD Unavailable Unavailable MELIZA LANDRUM MD Unavailable Unavailable NON, PHYSICIAN STAFF Unavailable Unavailable SNEHA, P AUGIE MD Unavailable Unavailable SNEHA, P AUGIE MD Unavailable Unavailable SNEHA, P AUGIE MD Unavailable Unavailable SNEHA, P AUGIE MD Unavailable Unavailable SNEHA, P AUGIE MD Unavailable Unavailable SNEHA, P AUGIE MD Unavailable Unavailable SNEHA, P AUGIE MD Unavailable Unavailable SNEHA, P AUGIE MD Unavailable Unavailable SNEHA, P AUGIE MD Unavailable Unavailable SNEHA, P AUGIE MD Unavailable Unavailable SNEHA, P AUGIE MD Unavailable Unavailable SNEHA, P AUGIE MD Unavailable Unavailable SNEHA, P AUGIE MD Unavailable Unavailable SNEHA, P AUGIE MD Unavailable Unavailable SNEHA, P AUGIE MD Unavailable Unavailable SNEHA, P AUGIE MD Unavailable Unavailable SNEHA, P AUGIE MD Unavailable Unavailable SNEHA, P AUGIE MD Unavailable Unavailable SNEHA, P AUGIE MD Unavailable Unavailable SNEHA, P AUGIE MD Unavailable Unavailable SNEHA, P AUGIE MD Unavailable Unavailable SNEHA, P AUGIE MD Unavailable Unavailable SNEHA, P AUGIE MD Unavailable Unavailable SNEHA, P AUGIE MD Unavailable Unavailable SNEHA, P AUGIE MD Unavailable Unavailable SNEHA, P AUGIE MD Unavailable Unavailable SNEHA, P AUGIE MD Unavailable Unavailable SNEHA, P AUGIE MD Unavailable Unavailable SNEHA, P AUGIE MD Unavailable Unavailable SNEHA, P AUGIE MD Unavailable Unavailable SNEHA, P AUGIE MD Unavailable Unavailable SNEHA, P AUGIE MD Unavailable Unavailable SNEHA, P AUGIE MD Unavailable Unavailable SNEHA, P AUGIE MD Unavailable Unavailable SNEHA, P AUGIE MD Unavailable Unavailable SNEHA, P AUGIE MD Unavailable Unavailable SNEHA, P AUGIE MD Unavailable Unavailable SNEHA, P AUGIE MD Unavailable Unavailable SNEHA, P AUGIE MD Unavailable Unavailable SNEHA, P AUGIE MD Unavailable Unavailable SNEHA, P AUGIE MD Unavailable Unavailable SNEHA, P AUGIE MD Unavailable Unavailable SNEHA, P AUGIE MD Unavailable Unavailable SNEHA, P AUGIE MD Unavailable Unavailable SNEHA, P AUGIE MD Unavailable Unavailable SNEHA, P AUGIE MD Unavailable Unavailable SNEHA, P AUGIE MD Unavailable Unavailable SNEHA, P AUGIE MD Unavailable Unavailable SNEHA, P AUGIE MD Unavailable Unavailable SNEHA, P AUGIE MD Unavailable Unavailable SNEHA, P AUGIE MD Unavailable Unavailable SNEHA, P AUGIE MD Unavailable Unavailable SNEHA, P AUGIE MD Unavailable Unavailable SNEHA, P AUGIE MD Unavailable Unavailable SNEHA, P AUGIE MD Unavailable Unavailable SNEHA, P AUGEI MD Unavailable Unavailable SNEHA, P AUGIE MD Unavailable Unavailable SNEHA, P AUGIE MD Unavailable Unavailable SNEHA, P AUGIE MD Unavailable Unavailable SNEHA, P AUGIE MD Unavailable Unavailable SNEHA, P AUGIE MD Unavailable Unavailable SNEHA, P AUGIE MD Unavailable Unavailable SNEHA, P AUGIE MD Unavailable Unavailable SNEHA, P AUGIE MD Unavailable Unavailable SNEHA, P AUGIE MD Unavailable Unavailable SNEHA, P AUGIE MD Unavailable Unavailable SNEHA, P AUGIE MD Unavailable Unavailable SNEHA, P AUGIE MD Unavailable Unavailable SNEHA, P AUGIE MD Unavailable Unavailable SNEHA, P AUGIE MD Unavailable Unavailable SNEHA, P AUGIE MD Unavailable Unavailable SNEHA, P AUGIE MD Unavailable Unavailable SNEHA, P AUGIE MD Unavailable Unavailable SNEHA, P AUGIE MD Unavailable Unavailable SNEHA, P AUGIE MD Unavailable Unavailable SNEHA, P AUGIE MD Unavailable Unavailable SNEHA, P AUGIE MD Unavailable Unavailable SNEHA, P AUGIE MD Unavailable Unavailable SNEHA, P AUGIE MD Unavailable Unavailable SNEHA, P AUGIE MD Unavailable Unavailable SNEHA, P AUGIE MD Unavailable Unavailable SNEHA, P AUGIE MD Unavailable Unavailable SNEHA, P AUGIE MD Unavailable Unavailable SNEHA, P AUGIE MD Unavailable Unavailable SNEHA, P AUGIE MD Unavailable Unavailable SNEHA, P AUGIE MD Unavailable Unavailable SNEHA, P AUGIE MD Unavailable Unavailable SNEHA, P AUGIE MD Unavailable Unavailable SNEHA, P AUGIE MD Unavailable Unavailable SNEHA, P AUGIE MD Unavailable Unavailable SNEHA, P AUGIE MD Unavailable Unavailable SNEHA, P AUGIE MD Unavailable Unavailable SNEHA, P AUIGE MD Unavailable Unavailable SNEHA, P AUGIE MD Unavailable Unavailable Jumalon, M Ludmila SPINDRAW OPERATOR Unavailable Unavailable Jumalon, M Ludmila SPINDRAW OPERATOR Unavailable Unavailable Jumalon, M Ludmila SPINDRAW OPERATOR Unavailable Unavailable Jumalon, M Ludmila SPINDRAW OPERATOR Unavailable Unavailable Jumalon, M Ludmila SPINDRAW OPERATOR Unavailable Unavailable Jumalon, M Ludmila SPINDRAW OPERATOR Unavailable Unavailable Jumalon, M Ludmila SPINDRAW OPERATOR Unavailable Unavailable Jumalon, M Ludmila SPINDRAW OPERATOR Unavailable Unavailable Jumalon, M Ludmila SPINDRAW OPERATOR Unavailable Unavailable Jumalon, M Ludmila SPINDRAW OPERATOR Unavailable Unavailable Jumalon, M Ludmila SPINDRAW OPERATOR Unavailable Unavailable Jumalon, M Ludmila SPINDRAW OPERATOR Unavailable Unavailable Jumalon, M Ludmila SPINDRAW OPERATOR Unavailable Unavailable Jumalon, M Ludmila SPINDRAW OPERATOR Unavailable Unavailable Jumalon, M Ludmila SPINDRAW OPERATOR Unavailable Unavailable Jumalon, M Ludmila SPINDRAW OPERATOR Unavailable Unavailable Jumalon, M Ludmila SPINDRAW OPERATOR Unavailable Unavailable Jumalon, M Ludmila SPINDRAW OPERATOR Unavailable Unavailable Jumalon, M Ludmila SPINDRAW OPERATOR Unavailable Unavailable Jumalon, M Ludmila SPINDRAW OPERATOR Unavailable Unavailable Jumalon, M Ludmila SPINDRAW OPERATOR Unavailable Unavailable Jumalon, M Ludmila SPINDRAW OPERATOR Unavailable Unavailable Jumalon, M Ludmila SPINDRAW OPERATOR Unavailable Unavailable Jumalon, M Ludmila SPINDRAW OPERATOR Unavailable Unavailable Jumalon, M Ludmila SPINDRAW OPERATOR Unavailable Unavailable Jumalon, M Ludmila SPINDRAW OPERATOR Unavailable Unavailable Jumalon, M Ludmila SPINDRAW OPERATOR Unavailable Unavailable Danika Falanga, A Kavya SPINDRAW OPERATOR Unavailable Unavailable Cumberland Falanga, A Kavya SPINDRAW OPERATOR Unavailable Unavailable [place] Falanga, A Kavya SPINDRAW OPERATOR Unavailable Unavailable C[place] Falanga, A Kavya SPINDRAW OPERATOR Unavailable Unavailable Danika Falanga, A Kavya SPINDRAW OPERATOR Unavailable Unavailable Danika Falanga, A Kavya SPINDRAW OPERATOR Unavailable Unavailable Danika Falanga, A Kavya SPINDRAW OPERATOR Unavailable Unavailable Cumberland Falanga, A Kavya SPINDRAW OPERATOR Unavailable Unavailable Danika Falanga, A Kavya SPINDRAW OPERATOR Unavailable Unavailable Cumberland Falanga, A Kavya SPINDRAW OPERATOR Unavailable Unavailable Cumberland Falanga, A Kavya SPINDRAW OPERATOR Unavailable Unavailable Cumberland Falanga, A Kavya SPINDRAW OPERATOR Unavailable Unavailable Danika Falanga, A Kavya SPINDRAW OPERATOR Unavailable Unavailable Cumberland Falanga, A Kavya SPINDRAW OPERATOR Unavailable Unavailable Danika Falanga, A Kavya SPINDRAW OPERATOR Unavailable Unavailable Cumberland Falanga, A Kavya SPINDRAW OPERATOR Unavailable Unavailable Danika Falanga, A Kavya SPINDRAW OPERATOR Unavailable Unavailable Danika Falanga, A Kavya SPINDRAW OPERATOR Unavailable Unavailable Danika Falanga, A Kavya SPINDRAW OPERATOR Unavailable Unavailable Danika Falanga, A Kavya SPINDRAW OPERATOR Unavailable Unavailable Danika Falanga, A Kavya SPINDRAW OPERATOR Unavailable Unavailable Cumberland Falanga, A Kavya SPINDRAW OPERATOR Unavailable Unavailable Cumberland Falanga, A Kavya SPINDRAW OPERATOR Unavailable Unavailable Danika Falanga, A Kavya SPINDRAW OPERATOR Unavailable Unavailable C[place] Falanga, A Kavya SPINDRAW OPERATOR Unavailable Unavailable Danika Falanga, A Kavya SPINDRAW OPERATOR Unavailable Unavailable [place] Falanga, A Kavya SPINDRAW OPERATOR Unavailable Unavailable Cumberland Falanga, A Kavya SPINDRAW OPERATOR Unavailable Unavailable C[place] Falanga, A Kavya SPINDRAW OPERATOR Unavailable Unavailable C[place] Falanga, A Kavya SPINDRAW OPERATOR Unavailable Unavailable LIESDANA, Nilson KONG MD Unavailable Unavailable LIESVELD, Nilson KONG MD Unavailable Unavailable LIESVELD, Nilson KONG MD Unavailable Unavailable LIESVELD, Nilson KONG MD Unavailable Unavailable LIESVELD, Nilson KONG MD Unavailable Unavailable LIESVELD, Nilson KONG MD Unavailable Unavailable LIESVELD, Nilson KONG MD Unavailable Unavailable LIESVELD, Nilson KONG MD Unavailable Unavailable LIESVELD, Nilson KONG MD Unavailable Unavailable LIESVELD, Nilson KONG MD Unavailable Unavailable LIESVELD, Nilson KONG MD Unavailable Unavailable LIESVELD, Nilson KONG MD Unavailable Unavailable LIESVELD, Nilson KONG MD Unavailable Unavailable LIESVELD, Nilson KONG MD Unavailable Unavailable LIESVELD, Nilson KONG MD Unavailable Unavailable LIESVELD, Nilson KONG MD Unavailable Unavailable LIESVELD, Nilson KONG MD Unavailable Unavailable LIESVELD, Nilson KONG MD Unavailable Unavailable LIESVELD, Nilson KONG MD Unavailable Unavailable LIESVELD, Nilson KONG MD Unavailable Unavailable LIESVELD, Nilson KONG MD Unavailable Unavailable LIESVELD, Nilson KONG MD Unavailable Unavailable LIESVELD, Nilson KONG MD Unavailable Unavailable LIESVELD, Nilson KONG MD Unavailable Unavailable LIESVELD, Nilson KONG MD Unavailable Unavailable LIESVELD, Nilson KONG MD Unavailable Unavailable LIESVELD, Nilson KONG MD Unavailable Unavailable LIESVELD, Nilson KONG MD Unavailable Unavailable LIESVELD, Nilson KONG MD Unavailable Unavailable LIESNilson CORTEZ MD Unavailable Unavailable PAUL HOWARD MD Unavailable Unavailable PAUL HOWARD MD Unavailable Unavailable PAUL HOWARD MD Unavailable Unavailable PAUL HOWARD MD Unavailable Unavailable PAUL HOWARD MD Unavailable Unavailable PAUL HOWARD MD Unavailable Unavailable PAUL HOWARD MD Unavailable Unavailable REINDL, PAUL WHELAN Unavailable Unavailable REINDL, PAUL WHELAN Unavailable Unavailable REINDL, PAUL WHELAN Unavailable Unavailable REINDL, PAUL WHELAN Unavailable Unavailable REINDL, PAUL WHELAN Unavailable Unavailable REINDL, PAUL WHELAN Unavailable Unavailable REINDL, PAUL WHELAN Unavailable Unavailable REINDL, PAUL WHELAN Unavailable Unavailable REINDL, PAUL WHELAN Unavailable Unavailable REINDL, PAUL WHELAN Unavailable Unavailable REINDL, PAUL WHELAN Unavailable Unavailable REINDL, PAUL WHELAN Unavailable Unavailable REINDL, PAUL WHELAN Unavailable Unavailable REINDL, PAUL WHELAN Unavailable Unavailable REINDL, PAUL WHELAN Unavailable Unavailable REINDL, PAUL WHELAN Unavailable Unavailable REINDL, PAUL WHELAN Unavailable Unavailable REINDL, PAUL WHELAN Unavailable Unavailable REINDL, PAUL WHELAN Unavailable Unavailable REINDL, PAUL WHELAN Unavailable Unavailable REINDL, PAUL WHELAN Unavailable Unavailable REINDL, PAUL WHELAN Unavailable Unavailable REINDL, PAUL WHELAN Unavailable Unavailable REINDL, PAUL WHELAN Unavailable Unavailable REINDL, PAUL WHELAN Unavailable Unavailable REINDL, PAUL WHELAN Unavailable Unavailable REINDL, PAUL WHELAN Unavailable Unavailable REINDL, PAUL WHELAN Unavailable Unavailable REINDL, PAUL WHELAN Unavailable Unavailable REINDL, PAUL WHELAN Unavailable Unavailable REINDL, PAUL WHELAN Unavailable Unavailable REINDL, PAUL WHELAN Unavailable Unavailable REINDL, PAUL WHELAN Unavailable Unavailable REINDL, PAUL WHELAN Unavailable Unavailable REINDL, PAUL WHELAN Unavailable Unavailable KYLAHDaphne MD Unavailable Unavailable KYLAHDaphne MD Unavailable Unavailable KYLAH, Daphne TEJEDA MD Unavailable Unavailable KYLAH, Daphne TEJEDA MD Unavailable Unavailable KYLAH, Daphne TEJEDA MD Unavailable Unavailable KYLAH, Daphne TEJEDA MD Unavailable Unavailable KYLAH, Daphne TEJEDA MD Unavailable Unavailable KYLAH, Daphne TEJEDA MD Unavailable Unavailable KYLAH, Daphne TEJEDA MD Unavailable Unavailable KYLAH, Daphne TEJEDA MD Unavailable Unavailable KYLAH, Daphne TEJEDA MD Unavailable Unavailable KYLAH, Daphne TEJEDA MD Unavailable Unavailable KYLAH, Daphne TEJEDA MD Unavailable Unavailable KYLAH, Daphne TEJEDA MD Unavailable Unavailable KYLAH, Daphne TEJEDA MD Unavailable Unavailable KYLAH, Daphne TEJEDA MD Unavailable Unavailable KYLAH, Daphne TEJEDA MD Unavailable Unavailable KYLAH, Daphne TEJEDA MD Unavailable Unavailable KYLAH, Daphne TEJEDA MD Unavailable Unavailable KYLAH, Daphne TEJEDA MD Unavailable Unavailable KYLAH, Daphne TEJEDA MD Unavailable Unavailable KYLAH, Daphne TEJEDA MD Unavailable Unavailable KYLAH, Daphne TEJEDA MD Unavailable Unavailable Re-disclosure Warning The records that you are about to access may contain information from federally-assisted alcohol or drug abuse programs. If such information is present, then the following federally mandated warning applies: This information has been disclosed to you from records protected by federal confidentiality rules (42 CFR part 2). The federal rules prohibit you from making any further disclosure of this information unless further disclosure is expressly permitted by the written consent of the person to whom it pertains or as otherwise permitted by 42 CFR part 2. A general authorization for the release of medical or other information is NOT sufficient for this purpose. The Federal rules restrict any use of the information to criminally investigate or prosecute any alcohol or drug abuse patient.The records that you are about to access may contain highly sensitive health information, the redisclosure of which is protected by Article 27-F of the [facility] Public Health law. If you continue you may have access to information: Regarding HIV / AIDS; Provided by facilities licensed or operated by the [facility] Office of Mental Health; or Provided by the [facility] Office for People With Developmental Disabilities. If such information is present, then the following [facility] mandated warning applies: This information has been disclosed to you from confidential records which are protected by state law. State law prohibits you from making any further disclosure of this information without the specific written consent of the person to whom it pertains, or as otherwise permitted by law. Any unauthorized further disclosure in violation of state law may result in a fine or custodial sentence or both. A general authorization for the release of medical or other information is NOT sufficient authorization for further disc losure. Allergies and Adverse Reactions Type Description Substance Reaction Status Data Source(s ) BRANDNAME [facility] BRANDNAME TYLENOL TYLENOL [facility] Drug allergy GABAPENTIN GABAPENTIN [facility] Drug allergy METFORMIN METFORMIN [facility] Drug allergy OXYCODONE OXYCODONE [facility] Drug allergy CARISOPRODOL CARISOPRODOL [facility] Drug allergy DOXYCYCLINE DOXYCYCLINE [facility] Drug allergy FLUOCINOLONE FLUOCINOLONE [facility] Drug allergy PREDNISONE PREDNISONE [facility] Drug allergy AMITRIPTYLINE AMITRIPTYLINE [facility] Drug allergy SPIRONOLACTONE SPIRONOLACTONE [facility] Drug allergy CODEINE CODEINE [facility] CLASS QUINOLONES QUINOLONES [facility] CLASS NSAID NSAID [facility] Drug allergy Spironolactone Spironolactone Hives Active eCW1 ([facility]) Drug allergy Cipro Ciprofloxacin Hives Active eCW1 ([facility]) Drug allergy Amitriptyline HCl Amitriptyline Throat swelling Active eCW1 ([facility]) Drug allergy Tramadol HCl Tramadol Throat swelling Active eCW1 ([facility]) Drug allergy IBU Ibuprofen Kidneys Active eCW1 ([facility]) Drug allergy Percocet acetaminophen / oxycodone facial swelling Ac tive eCW1 ([facility]) DRUG INGREDI TRAMADOL Tramadol Swelling [facility] DRUG INGREDI GABAPENTIN GABAPENTIN [facility] DRUG INGREDI CARISOPRODOL CARISOPRODOL [facility] Soma Soma Carisoprodol 250 MG Oral Tablet [Soma] Rash Active eCW1 ([facility]) Family History Family Member Name Family Member Gender Family Member Status Date o f Status Description Data Source(s) Unknown Unknown Problem MEDENT ([facility], ) Encounters Encounter Providers Location Date Indications Data Source(s ) Outpatient Attender: [facility] 03/08/2020 09:5 0:00 PM Health system Inpatient Attender: Kavya hawkins FNPAttender: NATASHA MONTERO MDConsultant: STAFF NON 03/06/2020 10:10:00 AM EST - 03/12/2020 12:50:00 PM [facility] Patient discharged. Outpatient Attender: Kavya BUENROSTRO 03/04/2020 12:24:00 PM EST - 03/06/2020 10:10:00 AM [facility] [place] [address] [facility] [address] 03/02/2020 12:00:00 AM EST eCW1 ([facility]) [place] [address] [facility] [address] 12/23/2019 12:00:00 AM EDT eCW1 ([facility]) Unknown [address] [facility] [address] 12/23/2019 12:00:00 AM EDT eCW1 ([facility]) Outpatient [address] [facility] [address] 12/20/2019 12:00:00 AM EDT eCW1 [facility] Outpatient Attender: Diana Sherwood MD [email or web address] 09/11 12:00:00 AM EDT - 10/07/2019 04:43:57 PM EDT [facility] Unknown [address] [place] [address], [place] [address] 10/01/2019 12:00:00 AM EDT eCW1 [facility]) Outpatient Referrer: DILAN HARP MD 09/21/2019 12:00:[address] [address] 09/10/2019 12:00:00 AM EDT eCW1 [facility]) Outpatient Referrer: Ludmila BUENROSTRO 07/25/2019 07:00:0 0 PM EDT [facility] [address] [address] 07/17/2019 12:00:00 AM EDT eCW1 ([facility]) [address] [id number] 07/16/2019 12:00:00 AM EDT eCW1 ([facility]) Outpatient Attender: AGUIE HOVOER MD [id number] 07/10/2019 12:00:00 A M [facility] Outpatient Referrer: Ludmila Tomlinson [facility] 06/28/2019 04:47:0 0 AM EDT [facility] [address] [address] 06/24/2019 12:00:00 AM EDT eCW1 ([facility]) [address] [address] 06/18/2019 12:00:00 AM EDT eCW1 ([facility]) [address] [address] 06/12/2019 12:00:00 AM EDT eCW1 ([facility]) [address] [address] 06/10/2019 12:00:00 AM EDT eCW1 ([facility]) [address] [address] 06/10/2019 12:00:00 AM EDT eCW1 ([facility]) [address] [address] 06/10/2019 12:00:00 AM EDT eCW1 ([facility]) [address] [address] 06/05/2019 12:00:00 AM EDT eCW1 ([facility]) [address] [address] 05/27/2019 12:00:00 AM EDT eCW1 ([facility]) [address] [address] 05/24/2019 12:00:00 AM EDT eCW1 ([facility]) [address] [address] 05/20/2019 12:00:00 AM EDT eCW1 ([facility] [address] [address] 05/17/2019 12:00:00 AM EST eCW1 ([facility] Outpatient Referrer: Ludmila Tomlinson [employer] 05/07/2019 02:21:0 0 PM EST [facility] [address] [address] 04/24/2019 12:00:00 AM EST eCW1 ([facility] [address] [address] 04/15/2019 12:00:00 AM EST eCW1 ([facility]) Outpatient Referrer: Ludmila COLBYP 04/12/2019 09:28:0 0 AM EST [facility] Outpatient Attender: AUGIE HOOVER MD [id number] 020 12:00:00 AM EST - 04/12/2019 12:20:12 PM EST Rheumatoid arthritis without rheumatoid factor, unspecified site [facility] Rheumatoid arthritis without rheumatoid factor, unspecified [place] [address] [address] 04/10/2019 12:00:00 AM EST eCW1 ([facility]) [address] [address] 04/08/2019 12:00:00 AM EST eCW1 ([facility]) [address] [address] 04/03/2019 12:00:00 AM EST eCW1 ([facility]) Outpatient Attender: PAUL Murphy/Michelle/Rein dl 03/26/2019 07:30:00 AM EST MEDENT ([facility]) Outpatient Attender: Jose Daniel Murphy/Vasyl 03/25/2019 09:15:00 AM EST MEDENT ([facility]) Outpatient Attender: MELIZA LANDRUM MDAdmi tter: MELIZA LANDRUM MDReferrer: MELIZA LANDRUM MD 03/20/2019 12:00:00 AM EST - 03/20/2019 11:59:00 PM EST Multiple myeloma not having achieved remission [facility] Multiple myeloma not having achieved rem ission Outpatient Referrer: Ludmila COLBYP 03/14/2019 07:31:0 0 PM EST [facility] [address] [address] 03/08/2019 12:00:00 AM EST eCW1 ([facility]) Outpatient Attender: AUGIE HOOVER MD [id number] 019 12:00:00 AM EST - 03/01/2019 03:46:30 PM EST [address] [address] 03/01/2019 12:00:00 AM EST eCW1 ([facility]) Outpatient Attender: AUGIE HOOVER MD 03/01/2019 12:00:00 AM EST [address] [address] 02/28/2019 12:00:00 AM EST eCW1 ([facility]) Outpatient Attender: Jose Daniel Murphy/Luca/Eduardo/Jennifer 02/26/2019 09:00:00 AM EST MEDENT ([facility] [address] [address] 02/26/2019 12:00:00 AM EST eCW1 ([facility]) [address] [address] 02/26/2019 12:00:00 AM EST eCW1 ([facility]) [address] [place] [address] 02/25/2019 12:00:00 AM EST eCW1 ([facility]) [address] [address] 02/22/2019 12:00:00 AM EST eCW1 ([facility]) Ludmila Tomlinson, BOX REPAIRER: [address], [place] [address], Ph. Attender: Ludmila Tomlinson [facility] [place] - [facility] - Main Office 02/20/2019 12:00:00 AM EST ATHE NA ([facility]) [address] [address] 02/19/2019 12:00:00 AM EST eCW1 ([facility]) [address] [address] 02/19/2019 12:00:00 AM EST eCW1 ([facility]) [address] [address] 02/15/2019 12:00:00 AM EST eCW1 ([facility]) [address] [address] 02/14/2019 12:00:00 AM EST eCW1 ([facility]) Outpatient Referrer: Ludmilasiva Tomlinson [facility] 02/13/2019 04:58:0 0 AM EST [facility] Ludmila Tomlinson, BOX REPAIRER: [address], [place] [address], Ph. Attender: Ludmila Tomlinson [facility] - [facility] 02/13/2019 12:00:00 AM EST ATHE NA ([facility]) Ludmila Tomlinson, BOX REPAIRER: [address], [place] [address], Ph. Attender: Ludmila Tomlinson [facility] - [facility] 02/13/2019 12:00:00 AM EST ATHE NA ([facility]) [address] [address] 02/11/2019 12:00:00 AM EST eCW1 ([facility]) [address] [address] 02/05/2019 12:00:00 AM EST eCW1 ([facility]) Immunizations Vaccine Date Status Description Data Source(s) influenza, recombinant, quadrIvalent,injectable, prese rvative free 12/20/2019 10:30:00 AM EDT completed eCW1 ([facility]) influenza, recombinant, quadrIvalent,injectable, prese rvative free 12/20/2019 10:30:00 AM EDT completed eCW1 ([facility]) influenza, recombinant, quadrIvalent,injectable, prese rvative free 12/20/2019 10:30:00 AM EDT completed eCW1 ([facility]) influenza, recombinant, quadrIvalent,injectable, prese rvative free 12/20/2019 10:30:00 AM EDT completed eCW1 ([facility]) Medications Medication Brand Name Start Date Product Form Dose Route Admi nistrative Instructions Pharmacy Instructions Status Indications Reaction Description Data Source(s) 100 mg 03/23/2020 12:00:00 AM EST tablet 90 TAKE ONE TABLET BY MOUTH EVERY DAY TAKE ONE TABLET BY MOUTH EVERY DAY SOLD: 03/23/2020 [facility] 25 mg 03/15/2020 12:00:00 AM EST tablet 60 TAKE ONE TABLET BY MOUTH TWICE A DAY FOR BLOOD PRESSURE TAKE ONE TABLET BY MOUTH TWICE A DAY FOR BLOOD PRESSUR E SOLD: 03/15/2020 [facility] 4 mg 03/15/2020 12:00:00 AM EST tablet 3 TAKE ONE TABLET BY MOUTH EVERY DAY FOR 3 DAYS FOR NAUSEA AND VOMITING TAKE ONE TABLET BY MOUTH EVERY DAY FOR 3 DAYS FOR NAUSEA AND VOMITING SOLD: 03/15/2020 [facility] pantoprazole 40 MG Delayed Release Oral Tablet PANTOPRAZOLE SODIUM 03/15/2020 12:00:00 AM EST tablet,delayed release (DR/EC) 60 T MATTI ONE TABLET BY MOUTH TWICE A DAY TAKE ONE TABLET BY MOUTH TWICE A DAY SOLD: 03/15/2020 [facility] Promethazine Hydrochloride 25 MG Oral Tablet PROMETHAZINE HC L 03/15/2020 12:00:00 AM EST tablet 20 TAKE ONE TABLET BY MOUTH EVERY 12 HOURS NEEDED FOR NAUSEA AND VOMITING TAKE ONE TABLET BY MOUTH EVERY 12 HOURS NEEDED FOR NAUSEA AND VOMITING SOLD: 03/15/2020 [facility] 400 mg (241.3 mg magnesium) 01/08/2020 12:00:00 AM EDT table t 60 TAKE ONE TABLET BY MOUTH TWICE A DAY TAKE ONE TABLET BY MOUTH TWICE A DAY SOLD: 02/05/2020 [facility] 15 mg 01/08/2020 12:00:00 AM EDT tablet 15 TAKE 1 TABLET BY MOUTH 3 TIMES A DAY NEEDED FOR PAIN MAX DAILY DOSE = 3 TABLETS TAKE 1 TABLET BY MOUTH 3 TIMES A DAY NEEDED FOR PAIN MAX DAILY DOSE = 3 TABLETS SOLD: 01/08/2020 [facility] 400 mg (241.3 mg magnesium) 01/08/2020 12:00:00 AM EDT table t 60 TAKE ONE TABLET BY MOUTH TWICE A DAY TAKE ONE TABLET BY MOUTH TWICE A DAY SOLD: 01/08/2020 [facility] 100 mg 01/03/2020 12:00:00 AM EDT tablet 90 TAKE ONE TABLET BY MOUTH EVERY DAY TAKE ONE TABLET BY MOUTH EVERY DAY SOLD: 01/03/2020 [facility] 50 mg 12/30/2019 12:00:00 AM EDT tablet 60 TAKE ONE TABLET BY MOUTH EVERY 6 HOURS NEEDED FOR PAIN MAXIMUM DAILY DOSE = 4 TAKE ONE TABLET BY MOUTH EVERY 6 HOURS NEEDED FOR PAIN MAXIMUM DAILY DOSE = 4 SOLD: 12/30/2019 [facility] 10 mEq 12/27/2019 12:00:00 AM EDT tablet extended release 240 TAKE FOUR TABLETS BY MOUTH TWICE A DAY TAKE FOUR TABLETS BY MOUTH TWICE A DAY SOLD: 12/27/2019 [facility] 81 mg 12/27/2019 12:00:00 AM EDT tablet,chewable 90 CHEW ONE TABLET BY MOUTH EVERY DAY CHEW ONE TABLET BY MOUTH EVERY DAY SOLD: 12/27/2019 [facility] atorvastatin 80 MG Oral Tablet ATORVASTATIN CALCIUM 12/23/2019 1 2:00:00 AM EDT tablet 90 TAKE ONE TABLET BY MOUTH EVERY D AY TAKE ONE TABLET BY MOUTH EVERY DAY SOLD: 12/24/2019 [facility] tizanidine 2 MG Oral Tablet Tizanidine HCl 2 MG Tizanidine H Cl 2 MG 12/20/2019 12:00:00 AM EDT 1.0 {tablet_as_needed} active Tizanidine HCl 2 MG eCW1 ([facility]) 2 mg 12/20/2019 12:00:00 AM EDT tablet 90 TAKE ONE TABLET BY MOUTH THREE TIMES A DAY NEEDED TAKE ONE TABLET BY MOUTH THREE TIMES A DAY NEEDED S OLD: 12/20/2019 [facility] Trazodone Hydrochloride 50 MG Oral Tablet TraZODone HC l 50 MG TraZODone HCl 50 MG 12/20/2019 12:00:00 AM EDT 0.51 {tablet_at_bedtime_as_needed} active TraZODone HCl 50 MG eCW1 ([facility]) Trazodone Hydrochloride 50 MG Oral Tablet TraZODone HC l 50 MG TraZODone HCl 50 MG 12/20/2019 12:00:00 AM EDT 0.51 {tablet_at_bedtime_as_needed} active TraZODone HCl 50 MG eCW1 ([facility]) tizanidine 2 MG Oral Tablet Tizanidine HCl 2 MG Tizanidine H Cl 2 MG 12/20/2019 12:00:00 AM EDT 1.0 {tablet_as_needed} active Tizanidine HCl 2 MG eCW1 ([facility]) tizanidine 2 MG Oral Tablet Tizanidine HCl 2 MG Tizanidine H Cl 2 MG 12/20/2019 12:00:00 AM EDT 1.0 {tablet_as_needed} active Tizanidine HCl 2 MG eCW1 ([facility]) tizanidine 2 MG Oral Tablet Tizanidine HCl 2 MG Tizanidine H Cl 2 MG 12/20/2019 12:00:00 AM EDT 1.0 {tablet_as_needed} active Tizanidine HCl 2 MG eCW1 ([facility]) Trazodone Hydrochloride 50 MG Oral Tablet TraZODone HC l 50 MG TraZODone HCl 50 MG 12/20/2019 12:00:00 AM EDT 0.51 {tablet_at_bedtime_as_needed} active TraZODone HCl 50 MG eCW1 ([facility]) Trazodone Hydrochloride 50 MG Oral Tablet TraZODone HC l 50 MG TraZODone HCl 50 MG 12/20/2019 12:00:00 AM EDT 0.51 {tablet_at_bedtime_as_needed} active TraZODone HCl 50 MG eCW1 ([facility]) 50 mg 12/20/2019 12:00:00 AM EDT tablet 30 TAKE 1/2-1 TABLET BY MOUTH ONCE A DAY AT BEDTIME NEEDED TAKE 1/2-1 TABLET BY MOUTH ONCE A DAY AT BEDTIME NEEDED SOLD: 12/20/2019 [facility] Metronidazole 500 MG Oral Tablet METRONIDAZOLE 12/01/2019 12:0 0:00 AM EDT tablet 15 TAKE ONE TABLET BY MOUTH EVERY 8 HOURS FOR 5 DAYS TAKE ONE TABLET BY MOUTH EVERY 8 HOURS FOR 5 DAYS SOLD: 12/01/2019 [facility] 5-325 mg 12/01/2019 12:00:00 AM EDT tablet 18 TAKE 1 TABLET BY MOUTH EVERY 4 HOURS NEEDED MILD/MODERATE PAIN (1-7 PAIN SCALE) MAX DAILY DOSE = 6 TABLETS TAKE 1 TABLET BY MOUTH EVERY 4 HOURS NEEDED MILD/MODERATE PAIN (1-7 PAIN SCALE) MAX DAILY DOSE = 6 TABLETS SOLD: 12/01/2019 [facility] Sulfamethoxazole 800 MG / Trimethoprim 160 MG Oral Tab let 800-160 mg SULFAMETHOXAZOLE/TRIMETHOPRIM 12/01/2019 12:00:00 AM EDT tablet 10 TAKE ONE TABLET BY MOUTH TWO TIMES A DAY FOR 5 DAYS TAKE ONE TABLET BY MOUTH TWO TIMES A DAY FOR 5 DAYS SOLD: 12/01/[address] [facility] 20 mg 10/10/2019 12:00:00 AM EDT tablet 7 TAKE ONE TABLET BY MOUTH EVERY DAY FOR 7 DAYS TAKE ONE TABLET BY MOUTH EVERY DAY FOR 7 DAYS SOLD: 10/11/2019 [facility] 100 mg 10/01/2019 12:00:00 AM EDT tablet 90 TAKE ONE TABLET BY MOUTH EVERY DAY TAKE ONE TABLET BY MOUTH EVERY DAY SOLD: 10/01/2019 [facility] 100 mg 10/01/2019 12:00:00 AM EDT tablet 90 TAKE ONE TABLET BY MOUTH EVERY DAY TAKE ONE TABLET BY MOUTH EVERY DAY SOLD: 12/27/2019 [facility] 100 mg 09/28/2019 12:00:00 AM EDT tablet 90 TAKE ONE TABLET BY MOUTH EVERY DAY TAKE ONE TABLET BY MOUTH EVERY DAY SOLD: 09/28/2019 [facility] 100 mg 09/28/2019 12:00:00 AM EDT tablet 90 TAKE ONE TABLET BY MOUTH EVERY DAY TAKE ONE TABLET BY MOUTH EVERY DAY SOLD: 12/26/2019 [facility] 2 mg 09/27/2019 12:00:00 AM EDT capsule 40 TAKE TWO CAPSULES BY MOUTH EVERY 6 HOURS NEEDED FOR DIARRHEA TAKE TWO CAPSULES BY MOUTH EVERY 6 HOURS NEEDED FOR DIARRHEA SOLD: 09/27/2019 [facility] 25 mg 09/24/2019 12:00:00 AM EDT tablet 30 TAKE ONE TABLET BY MOUTH ONCE DAILY TAKE ONE TABLET BY MOUTH ONCE DAILY SOLD: 09/24/2019 [facility] Acyclovir 400 MG Oral Tablet ACYCLOVIR 09/24/2019 12:00:00 AM EDT tabl et 60 TAKE ONE TABLET BY MOUTH TWO TIMES A DAY TAKE ONE TABLET BY MOUTH TWO TIMES A DAY SOLD: 09/24/2019 [facility] atorvastatin 80 MG Oral Tablet Atorvastatin Calcium 80 MG Atorvastatin Calcium 80 MG 09/20/2019 12:00:00 AM EDT 1.0 {tablet} activ e Atorvastatin Calcium 80 MG eCW1 ([facility]) 24 HR Metformin hydrochloride 750 MG Ext ended Release Oral Tablet MetFORMIN HCl ER 750 MG MetFORMIN HCl ER 750 MG 09/20/2019 12:00:00 AM EDT 1.0 {tablet_with_evening_meal} suspended Met FORMIN HCl ER 750 MG eCW1 ([facility]) MetFORMIN HCl ER 750 MG MetFORMIN HCl ER 750 MG 09/20/2019 12:00:00 AM EDT 1.0 {tablet_with_evening_meal} suspended Me tFORMIN HCl ER 750 MG eCW1 ([facility]) MetFORMIN HCl ER 750 MG MetFORMIN HCl ER 750 MG 09/20/2019 12:00:00 AM EDT 1.0 {tablet_with_evening_meal} suspended Me tFORMIN HCl ER 750 MG eCW1 ([facility]) atorvastatin 80 MG Oral Tablet ATORVASTATIN CALCIUM 09/20/2019 1 2:00:00 AM EDT tablet 90 TAKE 1 TABLET BY MOUTH ONCE A DAY TAKE 1 TABLET BY MOUTH ONCE A DAY SOLD: 09/20/2019 [facility] atorvastatin 80 MG Oral Tablet Atorvastatin Calcium 80 MG Atorvastatin Calcium 80 MG 09/20/2019 12:00:00 AM EDT 1.0 {tablet} activ e Atorvastatin Calcium 80 MG eCW1 ([facility]) atorvastatin 80 MG Oral Tablet Atorvastatin Calcium 80 MG Atorvastatin Calcium 80 MG 09/20/2019 12:00:00 AM EDT 1.0 {tablet} activ e Atorvastatin Calcium 80 MG eCW1 ([facility]) atorvastatin 80 MG Oral Tablet Atorvastatin Calcium 80 MG Atorvastatin Calcium 80 MG 09/20/2019 12:00:00 AM EDT 1.0 {tablet} activ e Atorvastatin Calcium 80 MG eCW1 ([facility]) MetFORMIN HCl ER 750 MG MetFORMIN HCl ER 750 MG 09/20/2019 12:00:00 AM EDT 1.0 {tablet_with_evening_meal} suspended Me tFORMIN HCl ER 750 MG eCW1 ([facility]) 750 mg 09/20/2019 12:00:00 AM EDT tablet extended release 24 hr 180 TAKE ONE TABLET BY MOUTH TWICE A DAY TAKE ONE TABLET BY MOUTH TWICE A DAY SOLD: 09/20/2019 [facility] MetFORMIN HCl ER 750 MG MetFORMIN HCl ER 750 MG 09/20/2019 12:00:00 AM EDT 1.0 {tablet_with_evening_meal} active MetF ORMIN HCl ER 750 MG eCW1 ([facility]) atorvastatin 80 MG Oral Tablet Atorvastatin Calcium 80 MG Atorvastatin Calcium 80 MG 09/20/2019 12:00:00 AM EDT 1.0 {tablet} activ e Atorvastatin Calcium 80 MG eCW1 ([facility]) Potassium Chloride 10 MEQ Extended Release Oral Tablet POTAS SIUM CHLORIDE 09/16/2019 12:00:00 AM EDT tablet extended release 240 TAKE FOUR TABLETS BY MOUTH TWICE A DAY TAKE FOUR TABLETS BY MOUTH TWICE A DAY SOLD: 09/16/2019 [facility] 4 mg 08/17/2019 12:00:00 AM EDT tablet 40 TAKE 10 TABLETS [40MG] BY MOUTH ON MONDAYS TAKE 10 TABLETS [40MG] BY MOUTH ON MONDAYS SOLD: 08/17/2019 [facility] 4 mg 08/17/2019 12:00:00 AM EDT tablet 40 TAKE 10 TABLETS [40MG] BY MOUTH ON MONDAYS TAKE 10 TABLETS [40MG] BY MOUTH ON MONDAYS SOLD: 01/01/2020 [facility] 40 mg 08/14/2019 12:00:00 AM EDT tablet,delayed release (DR/EC) 60 TAKE ONE TABLET BY MOUTH TWICE A DAY [REFLUX DIFFICULT SWALLOWING] TAKE ONE TABLET BY MOUTH TWICE A DAY [REFLUX DIFFICULT SWALLOWING] SOLD: 11/13/2019 [facility] pantoprazole 40 MG Delayed Release Oral Tablet PANTOPRAZOLE SODIUM 08/14/2019 12:00:00 AM EDT tablet,delayed release (DR/EC) 60 T MATTI ONE TABLET BY MOUTH TWICE A DAY [REFLUX DIFFICULT SWALLOWING] TAKE ONE TABLET BY MOUTH TWICE A DAY [REFLUX DIFFICULT SWALLOWING] SOLD: 08/14/2019 [facility] 40 mg 08/14/2019 12:00:00 AM EDT tablet,delayed release (DR/EC) 60 TAKE ONE TABLET BY MOUTH TWICE A DAY [REFLUX DIFFICULT SWALLOWING] TAKE ONE TABLET BY MOUTH TWICE A DAY [REFLUX DIFFICULT SWALLOWING] SOLD: 10/10/2019 [facility] pantoprazole 40 MG Delayed Release Oral Tablet PANTOPRAZOLE SODIUM 08/14/2019 12:00:00 AM EDT tablet,delayed release (DR/EC) 60 T MATTI ONE TABLET BY MOUTH TWICE A DAY [REFLUX DIFFICULT SWALLOWING] TAKE ONE TABLET BY MOUTH TWICE A DAY [REFLUX DIFFICULT SWALLOWING] SOLD: 12/27/2019 [facility] Misc. Devices - UNK 07/17/2019 12:00:00 AM EDT active Misc. Devices - eCW1 ([facility]) Misc. Devices - UNK 07/17/2019 12:00:00 AM EDT active Misc. Devices - eCW1 ([facility]) Misc. Devices - UNK 07/17/2019 12:00:00 AM EDT active Misc. Devices - eCW1 ([facility]) Misc. Devices - UNK 07/17/2019 12:00:00 AM EDT active Misc. Devices - eCW1 ([facility]) Misc. Devices - UNK 07/17/2019 12:00:00 AM EDT ac tive as directed eCW1 ([facility]) Misc. Devices - UNK 07/17/2019 12:00:00 AM EDT active Misc. Devices - eCW1 ([facility]) 50 mg 07/15/2019 12:00:00 AM EDT tablet 56 TAKE 1 TAB.BY MOUTH EVERY 6HRS NEEDED FOR PAIN MAX = 4TABS/DAY TAKE 1 TAB.BY MOUTH EVERY 6HRS NEEDED FOR PAIN MAX = 4TABS/DAY SOLD: 07/15/2019 [facility] 81 mg 07/08/2019 12:00:00 AM EDT tablet,chewable 90 CHEW 1 TABLET BY MOUTH ONCE A DAY CHEW 1 TABLET BY MOUTH ONCE A DAY SOLD: 07/08/2019 [facility] 81 mg 07/08/2019 12:00:00 AM EDT tablet,chewable 90 CHEW 1 TABLET BY MOUTH ONCE A DAY CHEW 1 TABLET BY MOUTH ONCE A DAY SOLD: 09/23/2019 [facility] 10 mEq 06/20/2019 12:00:00 AM EDT tablet extended release 240 TAKE 4 TABLETS BY MOUTH TWICE A DAY TAKE 4 TABLETS BY MOUTH TWICE A DAY SOLD: 06/20/2019 [facility] 10 mEq 06/20/2019 12:00:00 AM EDT tablet extended release 240 TAKE 4 TABLETS BY MOUTH TWICE A DAY TAKE 4 TABLETS BY MOUTH TWICE A DAY SOLD: 08/17/2019 [facility] 40 mg 06/12/2019 12:00:00 AM EDT tablet 90 TAKE ONE TABLET BY MOUTH EVERY DAY TAKE ONE TABLET BY MOUTH EVERY DAY SOLD: 06/12/2019 [facility] 100 mg 06/12/2019 12:00:00 AM EDT capsule 90 TAKE ONE CAPSULE BY MOUTH EVERY DAY NEEDED TAKE ONE CAPSULE BY MOUTH EVERY DAY NEEDED SOLD: 09/13/2019 [facility] 100 mg 06/12/2019 12:00:00 AM EDT capsule 90 TAKE ONE CAPSULE BY MOUTH EVERY DAY NEEDED TAKE ONE CAPSULE BY MOUTH EVERY DAY NEEDED SOLD: 06/12/2019 [facility] 40 mg 06/12/2019 12:00:00 AM EDT tablet 90 TAKE ONE TABLET BY MOUTH EVERY DAY TAKE ONE TABLET BY MOUTH EVERY DAY SOLD: 09/08/2019 [facility] tramadol hydrochloride 50 MG Oral Tablet TRAMADOL HCL 06/03/2019 12:00:00 AM EDT tablet 56 TAKE ONE TABLET BY MOUTH EVERY 6 HOURS NEEDED FOR PAIN MAXIMUM DAILY DOSE = 4 TAKE ONE TABLET BY MOUTH EVERY 6 HOURS A S NEEDED FOR PAIN MAXIMUM DAILY DOSE = 4 SOLD: 06/03/2019 [facility] 4 mg 05/27/2019 12:00:00 AM EDT tablet 40 TAKE 10 TABLETS [ 40MG ] BY MOUTH ON MONDAYS TAKE 10 TABLETS [ 40MG ] BY MOUTH ON MONDAYS SOLD: 05/27/2019 [facility] 4 mg 05/27/2019 12:00:00 AM EDT tablet 40 TAKE 10 TABLETS [ 40MG ] BY MOUTH ON MONDAYS TAKE 10 TABLETS [ 40MG ] BY MOUTH ON MONDAYS SOLD: 06/24/2019 [facility] 4 mg 05/27/2019 12:00:00 AM EDT tablet 40 TAKE 10 TABLETS [ 40MG ] BY MOUTH ON MONDAYS TAKE 10 TABLETS [ 40MG ] BY MOUTH ON MONDAYS SOLD: 07/27/2019 [facility] 100 mg 05/25/2019 12:00:00 AM EDT tablet 90 TAKE ONE TABLET BY MOUTH EVERY DAY TAKE ONE TABLET BY MOUTH EVERY DAY SOLD: 08/21/2019 [facility] 100 mg 05/25/2019 12:00:00 AM EDT tablet 90 TAKE ONE TABLET BY MOUTH EVERY DAY TAKE ONE TABLET BY MOUTH EVERY DAY SOLD: 05/26/2019 [facility] 4 mg 05/20/2019 12:00:00 AM EDT tablet 10 TAKE 10 TABLETS (40MG) ONCE WEEKLY ON MONDAYS TAKE 10 TABLETS (40MG) ONCE WEEKLY ON MONDAYS SOLD: 05/20/2019 [facility] 250 mg 05/18/2019 12:00:00 AM EST tablet 3 TAKE ONE TABLET BY MOUTH EVERY DAY TAKE ONE TABLET BY MOUTH EVERY DAY SOLD: 05/18/2019 [facility] 340-1,000 mg 05/08/2019 12:00:00 AM EST capsule 90 TAKE 1 CAPSULE BY MOUTH ONCE A DAY TAKE 1 CAPSULE BY MOUTH ONCE A DAY SOLD: 08/02/2019 [facility] 340-1,000 mg 05/08/2019 12:00:00 AM EST capsule 90 TAKE 1 CAPSULE BY MOUTH ONCE A DAY TAKE 1 CAPSULE BY MOUTH ONCE A DAY SOLD: 05/08/2019 [facility] 25 mg 04/25/2019 12:00:00 AM EST tablet 30 TAKE 1 TABLET BY MOUTH EVERY 8 HOURS NEEDED FOR DIZZINESS/VERTIGO TAKE 1 TABLET BY MOUTH EVERY 8 HOURS NEEDED FOR DIZZINESS/VERTIGO SOLD: 04/25/2019 [facility] 400 mg 04/11/2019 12:00:00 AM EST tablet 60 TAKE ONE TABLET BY MOUTH TWICE A DAY FOR ZOSTER PROPHYLAXIS TAKE ONE TABLET BY MOUTH TWICE A DAY FOR ZOSTER PROPHYLAXIS SOLD: 07/14/2019 [facility] Acyclovir 400 MG Oral Tablet ACYCLOVIR 04/11/2019 12:00:00 AM EST tabl et 60 TAKE ONE TABLET BY MOUTH TWICE A DAY FOR ZOSTER PROPHYLAXIS TAKE ONE TABLET BY MOUTH TWICE A DAY FOR ZOSTER PROPHYLAXIS SOLD: 09/15/2019 [facility] 400 mg 04/11/2019 12:00:00 AM EST tablet 60 TAKE ONE TABLET BY MOUTH TWICE A DAY FOR ZOSTER PROPHYLAXIS TAKE ONE TABLET BY MOUTH TWICE A DAY FOR ZOSTER PROPHYLAXIS SOLD: 05/23/2019 [facility] 400 mg 04/11/2019 12:00:00 AM EST tablet 60 TAKE ONE TABLET BY MOUTH TWICE A DAY FOR ZOSTER PROPHYLAXIS TAKE ONE TABLET BY MOUTH TWICE A DAY FOR ZOSTER PROPHYLAXIS SOLD: 04/11/2019 [facility] 100 mg 04/08/2019 12:00:00 AM EST tablet 90 TAKE ONE TABLET BY MOUTH EVERY DAY TAKE ONE TABLET BY MOUTH EVERY DAY SOLD: 04/08/2019 [facility] 50 mg 04/08/2019 12:00:00 AM EST tablet 20 TAKE 1 TABLET [50MG] BY MOUTH EVERY 6 HOURS NEEDED FOR PAIN MAXIMUM DAILY DOSE = 4 TABLETS TAKE 1 TABLET [50MG] BY MOUTH EVERY 6 HOURS NEEDED FOR PAIN MAXIMUM DAILY DOSE = 4 TABLETS SOLD: 04/08/2019 [facility] 100 mg 04/08/2019 12:00:00 AM EST tablet 90 TAKE ONE TABLET BY MOUTH EVERY DAY TAKE ONE TABLET BY MOUTH EVERY DAY SOLD: 07/03/2019 [facility] 40 mg 03/26/2019 12:00:00 AM EST tablet,delayed release (DR/EC) 60 TAKE ONE TABLET BY MOUTH TWICE A DAY TAKE ONE TABLET BY MOUTH TWICE A DAY SOLD: 07/14/2019 [facility] pantoprazole 40 MG Delayed Release Oral Tablet Pantoprazole Sodium 03/26/2019 12:00:00 AM EST ORAL active M EDENT ([facility], ) Magnesium Hydroxide 80 MG/ML Oral Suspension Milk Of Magnesi a 03/26/2019 12:00:00 AM EST ORAL active M EDENT ([facility], ) POLYETHYLENE GLYCOL 3350 105 MG/ML / Pot assium Chloride 0.07371 MEQ/ML / Sodium Bicarbonate 0.017 MEQ/ML / Sodium Chloride 0.0479 MEQ/ML Oral Solution [TriLyte] Trilyte 03/26/2019 12:00:00 AM EST active [facility] ([facility], ) 40 mg 03/26/2019 12:00:00 AM EST tablet,delayed release (DR/EC) 60 TAKE ONE TABLET BY MOUTH TWICE A DAY TAKE ONE TABLET BY MOUTH TWICE A DAY SOLD: 06/04/2019 [facility] 40 mg 03/26/2019 12:00:00 AM EST tablet,delayed release (DR/EC) 60 TAKE ONE TABLET BY MOUTH TWICE A DAY TAKE ONE TABLET BY MOUTH TWICE A DAY SOLD: 03/26/2019 [facility] 40 mg 03/26/2019 12:00:00 AM EST tablet,delayed release (DR/EC) 60 TAKE ONE TABLET BY MOUTH TWICE A DAY TAKE ONE TABLET BY MOUTH TWICE A DAY SOLD: 05/03/2019 [facility] 420 gram 03/26/2019 12:00:00 AM EST recon soln [address] TENA PREP USE DIRECTED ON DR TENA PREP SOLD: 03/26/2019 [facility] methylPREDNISolone acetate (DEPO-MEDROL) injection 80 mg [id number] 03/01/2019 03:45:00 PM EST 80 mg Intra-articular completed 80 mg, Intra- articular, Once, Mon03/01/19 at 1545, For 1 dose [facility] Medication administered onsite 100 mg 02/28/2019 12:00:00 AM EST tablet 90 TAKE ONE TABLET BY MOUTH EVERY DAY TAKE ONE TABLET BY MOUTH EVERY DAY SOLD: 02/28/2019 [facility] 300 mg 02/20/2019 12:00:00 AM EST capsule 90 TAKE ONE CAPSULE BY MOUTH THREE TIMES A DAY TAKE ONE CAPSULE BY MOUTH THREE TIMES A DAY SOLD: 02/20/2019 [facility] 350 mg 02/20/2019 12:00:00 AM EST tablet 15 TAKE ONE TABLET BY MOUTH THREE TIMES A DAY NEEDED FOR 5 DAYS MAXIMUM DAILY DOSE = 3 TABLETS TAKE ONE TABLET BY MOUTH THREE TIMES A DAY NEEDED FOR 5 DAYS MAXIMUM DAILY DOSE = 3 TABLETS SOLD: 02/20/2019 [facility] 20 mg 02/19/2019 12:00:00 AM EST capsule,delayed release (DR/EC) 60 TAKE ONE CAPSULE BY MOUTH TWICE A DAY TAKE ONE CAPSULE BY MOUTH TWICE A DAY SOLD: 02/19/2019 [facility] Famotidine 40 MG Oral Tablet FAMOTIDINE 02/19/2019 12:00:00 AM EST tab let 30 TAKE 1 TABLET BY MOUTH ONCE A DAY AT BEDTIME TAKE 1 TABLET BY MOUTH ONCE A DAY AT BEDTIME SOLD: 02/19/2019 [facility] Famotidine 40 MG Oral Tablet Famotidine 40 MG 02/19/2019 12:00:[address] active 1 tablet at bedtime eCW1 ([facility]) Famotidine 40 MG Oral Tablet Famotidine 40 MG 02/19/2019 12:00:[address] active 1 tablet at bedtime eCW1 ([facility]) 1 gram 02/14/2019 12:00:00 AM EST tablet 120 TAKE ONE TABLET BY MOUTH FOUR TIMES A DAY TAKE ONE TABLET BY MOUTH FOUR TIMES A DAY SOLD: 02/14/2019 [facility] Lactulose 667 MG/ML Oral Solution [Enulose] Enulose 10 GM/15ML Enulose 10 GM/15ML 02/11/2019 12:00:00 AM EST active 15 ml eCW1 ([facility]) Lactulose 667 MG/ML Oral Solution [Enulose] Enulose 10 GM/15ML Enulose 10 GM/15ML 02/11/2019 12:00:00 AM EST active 15 ml eCW1 ([facility]) Lactulose 667 MG/ML Oral Solution [Enulose] Enulose 10 GM/15ML Enulose 10 GM/15ML 02/11/2019 12:00:00 AM EST active 15 ml eCW1 ([facility]) Lactulose 667 MG/ML Oral Solution [Enulose] Enulose 10 GM/15ML Enulose 10 GM/15ML 02/11/2019 12:00:00 AM EST active 15 ml eCW1 ([facility]) Lactulose 667 MG/ML Oral Solution [Enulose] Enulose 10 GM/15ML Enulose 10 GM/15ML 02/11/2019 12:00:00 AM EST active 15 ml eCW1 ([facility]) 17 gram/dose 02/11/2019 12:00:00 AM EST powder 510 MIX 17 GRAMS WITH 8 OUNCES OF FLUID ONCE A DAY MIX 17 GRAMS WITH 8 OUNCES OF FLUID ONCE A DAY SOLD: 02/11/2019 [facility] 10 gram/15 mL 02/11/2019 12:00:00 AM EST solution 473 TAKE 15ML BY MOUTH DAILY TAKE 15ML BY MOUTH DAILY SOLD: 02/11/2019 [facility] POLYETHYLENE GLYCOL 3350 142 MG/ML Oral Solution [Miralax] iraLax - MiraLax - 02/05/2019 12:00:00 AM EST active 1 packet mixed with 8 ounces of fluid eCW1 ([facility]) MiraLax - UNK 02/05/2019 12:00:00 AM EST 1 .0 {packet_mixed_with_8_ounces_of_fluid} active M[facility] - eCW1 ([facility]) POLYETHYLENE GLYCOL 3350 142 MG/ML Oral Solution [Miralax] M iraLax - MiraLax - 02/05/2019 12:00:00 AM EST active 1 packet mixed with 8 ounces of fluid eCW1 ([facility]) POLYETHYLENE GLYCOL 3350 142 MG/ML Oral Solution [Miralax] M iraLax - MiraLax - 02/05/2019 12:00:00 AM EST active 1 packet mixed with 8 ounces of fluid eCW1 ([facility]) MiraLax - UNK 02/05/2019 12:00:00 AM EST 1 .0 {packet_mixed_with_8_ounces_of_fluid} active MiraLax - eCW1 ([facility]) POLYETHYLENE GLYCOL 3350 142 MG/ML Oral Solution [Miralax] M iraLax - MiraLax - 02/05/2019 12:00:00 AM EST active 1 packet mixed with 8 ounces of fluid eCW1 ([facility]) 800 mg 02/05/2019 12:00:00 AM EST tablet 60 TAKE ONE TABLET BY MOUTH TWICE A DAY TAKE ONE TABLET BY MOUTH TWICE A DAY SOLD: 02/05/2019 [facility] 100 mg 02/05/2019 12:00:00 AM EST capsule 90 TAKE 1 CAPSULE BY MOUTH ONCE A DAY NEEDED TAKE 1 CAPSULE BY MOUTH ONCE A DAY NEEDED SOLD: 02/05/2019 [facility] 800 mg 02/05/2019 12:00:00 AM EST tablet 60 TAKE ONE TABLET BY MOUTH TWICE A DAY TAKE ONE TABLET BY MOUTH TWICE A DAY SOLD: 04/08/2019 [facility] POLYETHYLENE GLYCOL 3350 142 MG/ML Oral Solution [Miralax] M iraLax - MiraLax - 02/05/2019 12:00:00 AM EST active 1 packet mixed with 8 ounces of fluid eCW1 ([facility]) MiraLax - UNK 02/05/2019 12:00:00 AM EST 1 .0 {packet_mixed_with_8_ounces_of_fluid} active MiraLax - eCW1 ([facility]) Cimetidine 800 MG Oral Tablet Cimetidine 800 MG 02/05/2019 12:00:00 A M EST active 1 tablet at bedtime eCW1 ([facility]) MiraLax - UNK 02/05/2019 12:00:00 AM EST 1 .0 {packet_mixed_with_8_ounces_of_fluid} active MiraLax - eCW1 ([facility]) 800 mg 02/05/2019 12:00:00 AM EST tablet 60 TAKE ONE TABLET BY MOUTH TWICE A DAY TAKE ONE TABLET BY MOUTH TWICE A DAY SOLD: 07/02/2019 [facility] POLYETHYLENE GLYCOL 3350 142 MG/ML Oral Solution [Miralax] M iraLax - MiraLax - 02/05/2019 12:00:00 AM EST active 1 packet mixed with 8 ounces of fluid eCW1 ([facility]) POLYETHYLENE GLYCOL 3350 142 MG/ML Oral Solution [Miralax] M iraLax - MiraLax - 02/05/2019 12:00:00 AM EST active 1 packet mixed with 8 ounces of fluid eCW1 ([facility]) MiraLax - UNK 02/05/2019 12:00:00 AM EST 1 .0 {packet_mixed_with_8_ounces_of_fluid} active MiraLax - eCW1 ([facility]) 40 mg 12/18/2018 12:00:00 AM EDT tablet 30 TAKE ONE TABLET BY MOUTH ONCE A DAY TAKE ONE TABLET BY MOUTH ONCE A DAY SOLD: 03/10/2019 [facility] 40 mg 12/18/2018 12:00:00 AM EDT tablet 30 TAKE ONE TABLET BY MOUTH ONCE A DAY TAKE ONE TABLET BY MOUTH ONCE A DAY SOLD: 04/07/2019 [facility] 40 mg 12/18/2018 12:00:00 AM EDT tablet 30 TAKE ONE TABLET BY MOUTH ONCE A DAY TAKE ONE TABLET BY MOUTH ONCE A DAY SOLD: 05/05/2019 [facility] 81 mg 12/18/2018 12:00:00 AM EDT tablet,chewable 90 CHEW ONE TABLET BY MOUTH EVERY DAY CHEW ONE TABLET BY MOUTH EVERY DAY SOLD: 03/27/2019 [facility] 40 mg 12/18/2018 12:00:00 AM EDT tablet 30 TAKE ONE TABLET BY MOUTH ONCE A DAY TAKE ONE TABLET BY MOUTH ONCE A DAY SOLD: 02/10/2019 [facility] 50 mcg (2,000 unit) 12/18/2018 12:00:00 AM EDT capsule 90 TAKE ONE CAPSULE BY MOUTH EVERY DAY TAKE ONE CAPSULE BY MOUTH EVERY DAY SOLD: 03/27/2019 [facility] 300 mg 11/30/2018 12:00:00 AM EDT capsule 60 TAKE 2 CAPSULES BY MOUTH DAILY TAKE 2 CAPSULES BY MOUTH DAILY SOLD: 01/24/2019 [facility] 340-1,000 mg 11/16/2018 12:00:00 AM EDT capsule 90 TAKE ONE CAPSULE BY MOUTH ONCE A DAY TAKE ONE CAPSULE BY MOUTH ONCE A DAY SOLD: 02/11/2019 [facility] 100 mg 11/05/2018 12:00:00 AM EDT tablet 30 TAKE ONE TABLET BY MOUTH EVERY DAY TAKE ONE TABLET BY MOUTH EVERY DAY SOLD: 01/27/2019 [facility] 100 mg 11/05/2018 12:00:00 AM EDT tablet 30 TAKE ONE TABLET BY MOUTH EVERY DAY TAKE ONE TABLET BY MOUTH EVERY DAY SOLD: 03/22/2019 [facility] 100 mg 11/05/2018 12:00:00 AM EDT tablet 30 TAKE ONE TABLET BY MOUTH EVERY DAY TAKE ONE TABLET BY MOUTH EVERY DAY SOLD: 02/23/2019 [facility] 10 mEq 10/11/2018 12:00:00 AM EDT tablet extended release 210 TAKE 4 TABLETS BY MOUTH IN THE MORNING AND 3 TABLETS IN THE EVENING TAKE 4 TABLETS BY MOUTH IN THE MORNING AND 3 TABLETS IN THE EVENING SOLD: 01/24/2019 [facility] 10 mEq 10/11/2018 12:00:00 AM EDT tablet extended release 210 TAKE 4 TABLETS BY MOUTH IN THE MORNING AND 3 TABLETS IN THE EVENING TAKE 4 TABLETS BY MOUTH IN THE MORNING AND 3 TABLETS IN THE EVENING SOLD: 04/08/2019 [facility] Allopurinol 100 MG Oral Tablet allopurinol 100 mg tabl et allopurinol 100 mg tablet completed Allopurinol 100 MG Oral Tablet KIM[facility] ([facility]) Lactulose 667 MG/ML Oral Solution lactulose 10 gram/15 mL oral solution lactulose 10 gram/15 mL oral solution completed Lactulose 667 MG/ML Oral Solution [facility] ([facility]) Lactulose 667 MG/ML Oral Solution lactulose 10 gram/15 mL oral solution lactulose 10 gram/15 mL oral solution completed Lactulose 667 MG/ML Oral Solution [facility] ([facility]) pantoprazole 40 MG Delayed Release Oral Tablet pantoprazole 40 mg tablet,delayed release pantoprazole 40 mg tablet,delayed release completed pantoprazole 40 MG Delayed Release Oral Tablet [facility] ([facility]) Esomeprazole 20 MG Delayed Release Oral Capsule esomeprazole magnesium 20 mg capsule,delayed release esomeprazole magnesium 20 mg capsule,delayed release completed Esomeprazole 2 0 MG Delayed Release Oral Capsule [facility] ([facility]) pantoprazole 40 MG Delayed Release Oral Tablet pantoprazole 40 mg tablet,delayed release pantoprazole 40 mg tablet,delayed release completed pantoprazole 40 MG Delayed Release Oral Tablet [facility] ([facility]) Allopurinol 100 MG Oral Tablet allopurinol 100 mg tabl et allopurinol 100 mg tablet completed Allopurinol 100 MG Oral Tablet [facility] ([facility]) Cimetidine 800 MG Oral Tablet cimetidine 800 mg tablet cimet idine 800 mg tablet completed Cimetidine 800 MG Oral Tablet [facility] ([facility]) Insurance Providers Payer name Policy type / Coverage type Policy ID Covered democrat ID Covered democrat's relationship to ling Policy Ling Plan Information EMEDNY [id number] SP [id number] [facility] [id number] SP [id number] [facility] MEDICARE COMPLETE -PHYS [id number] 18 [id number] [facility] MEDICARE COMPLETE - O/P [id number] 18 [id number] [facility] MEDICARE COMPLETE I/P [id number] 18 [id number] MEDICARE [id number] SP [id number] [facility] [id number] SP [id number] [facility]) O [id number] S [id number] MEDICAID M [id number] S [id number] MEDICAID [id number] Lianne [id number] [facility] MEDICAID [id number] Lianne [id number] [facility] MEDICARE DUAL G [id number] Self [id number] MEDICAID M [id number] Self [id number] [facility] I [id number] Self [id number] MEDICAID [id number] SP [id number] MEDICARE COMPLETE [id number] SP [id number] [facility] [id number] S [id number] MEDICAID [id number] SP [id number] [facility] [id number] SP [id number] [facility] MEDICARE [id number] SP [id number] [facility] MEDICARE DUAL G [id number] Self [id number] ANSI-Not a Secondary Insurance [id number] ANSI-Medicaid [id number] ANSI-Medicare Part B [id number] ANSI-Not a Secondary Insurance [id number] ANSI-Medicaid [id number] ANSI-Medicare Part B [id number] ANSI-Medicare Part B [id number] ANSI-Medicaid [id number] ANSI-Not a Secondary Insurance [id number] ANSI-Medicaid [id number] ANSI-Medicare Part B [id number] ANSI-Not a Secondary Insurance [id number] ANSI-Medicaid [id number] ANSI-Not a Secondary Insurance [id number] ANSI-Medicare Part B [id number] ANSI-Not a Secondary Insurance [id number] ANSI-Medicare Part B [id number] ANSI-Medicaid [id number] ANSI-Medicare Part B [id number] ANSI-Not a Secondary Insurance [id number] ANSI-Medicaid [id number] ANSI-Not a Secondary Insurance [id number] ANSI-Medicare Part B [id number] ANSI-Medicaid [id number] ANSI-Not a Secondary Insurance [id number] ANSI-Medicare Part B [id number] ANSI-Medicaid [id number] ANSI-Not a Secondary Insurance [id number] ANSI-Medicare Part B [id number] ANSI-Medicaid [id number] ANSI-Not a Secondary Insurance [id number] ANSI-Medicare Part B [id number] ANSI-Medicaid [id number] MEDICAID [id number] SP [id number] [facility] [id number] SP [id number] UHC UNITED MEDICARE COMPLETE G [id number] Self [id number] [place] [id number] Self [id number] Medicare [facility] Medicare Primary [id number] Self [id number] [facility] Medigap Part B [id number] Self [id number] [facility] [employer]/Medicare Commercial [id number] Self [id number] [place] [id number] Self [id number] ANSI-Medicare Part B [id number] ANSI-Not a Secondary Insurance [id number] ANSI-Medicaid [id number] MEDICARE [id number] SP [id number] ANSI-Medicaid [id number] ANSI-Medicare Part B [id number] ANSI-Medicare Part B [id number] ANSI-Medicare Part B [id number] ANSI-Medicare Part B [id number] ANSI-Medicaid [id number] ANSI-Medicare Part B [id number] ANSI-Medicaid [id number] ANSI-Medicare Part B [id number] ANSI-Medicaid [id number] ANSI-Medicare Part B [id number] ANSI-Medicare Part B [id number] ANSI-Medicare Part B [id number] ANSI-Medicaid [id number] ANSI-Medicare Part B [id number] ANSI-Medicare Part B [id number] ANSI-Medicaid [id number] ANSI-Medicare Part B [id number] ANSI-Medicaid [id number] ANSI-Medicare Part B [id number] ANSI-Medicare Part B [id number] [facility] O [id number] S [id number] ANSI-Medicare Part B [id number] ANSI-Medicare Part B [id number] ANSI-Medicaid [id number] ANSI-Medicaid [id number] ANSI-Medicare Part B [id number] ANSI-Medicare Part B [id number] [facility] [id number] SP [id number] MEDICARE [id number] SP [id number] A ANSI-Medicaid [id number] ANSI-Medicare Part B [id number] ANSI-Medicare Part B [id number] MEDICARE C [id number] S [id number] MEDICARE C [id number] S [id number] ANSI-Medicaid [id number] ANSI-Medicare Part B [id number] ANSI-Medicare Part B [id number] ANSI-Medicare Part B [id number] ANSI-Medicare Part B [id number] ANSI-Medicaid [id number] ANSI-Medicaid [id number] ANSI-Medicare Part B [id number] ANSI-Medicare Part B [id number] [facility] [id number] SP [id number] MEDICARE COMPLETE [id number] SP [id number] MEDICARE [id number] SP [id number] A MEDICARE COMPLETE [id number] SP [id number] [place] Part B [id number] Self [id number] [facility] Medigap Part B [id number] Self [id number] Medicare - NGS Medicare Primary [id number] Self [id number] [place] [id number] Self [id number] [employer] Commercial [id number] Self [id number] Unitedhealthcare Medicare Commercial [id number] Self [id number] MEDICARE COMPLETE [id number] SP [id number] [place] [id number] Self [id number] Unitedhealthcare Medicare Commercial [id number] Self [id number] MEDICARE COMPLETE [id number] SP [id number] [place] [id number] Self [id number] Aarp/ Health Care Options Medigap Part B [id number] Self [id number] Medicare - [place]GS Medicare Primary [id number] Self [id number] [place] [id number] Self [id number] MEDICAID [id number] SP [id number] MEDICARE COMPLETE [id number] SP [id number] [facility] UNITED MEDICARE COMPLETE G [id number] Self [id number] MEDICARE COMPLETE [id number] SP [id number] UNITED HEALTHCARE MCRO [id number] SP [id number] [place] Self United[employer] Medicare Commercial [id number] Self [id number] MEDICARE COMPLETE [id number] SP [id number] MEDICARE COMPLETE-[facility] O [id number] S [id number] United [employer] (Medicare) Medigap Part B Self [place] Med[place] Part B Self United Healthcare ([facility]) Commercial Self UNITED HEALTHCARE MCRHMO [id number] SP [id number] MEDICARE [id number] SP [id number] MEDICARE COMPLETE [id number] SP [id number] MEDICARE A [id number] Self [id number] MEDICAID W [id number] MEDICARE OUTPATIENT M [id number] S [id number] A [id number] Problems, Conditions, and Diagnoses Code Display Name Description Problem Type Effective Dates Data Source(s) F51.04 [id number] Psychophysiologic insomnia Problem 0 12:00:00 AM EDT eCW1 ([facility]) C90.00 [id number] Multiple myeloma not having achieved grant ssion Problem 09/19/2019 12:00:00 AM EDT eCW1 ([facility]) G44.209 [id number] Tension headache Problem 04/15/2019 12:00:00 AM EST eCW1 ([facility]) G44.209 [id number] Tension headache Problem 04/15/2019 12:00:00 AM EST eCW1 ([facility]) K57.30 [id number] Diverticulosis of colon without diverticu litis Problem 02/05/2019 12:00:00 AM EST eCW1 ([facility]) K59.01 46950806 Slow transit constipation Problem 02/05/2019 12:00:00 AM EST eCW1 ([facility]) N20.0 [id number] Nephrolithiasis Problem 02/05/2019 12:00:00 AM EST eCW1 ([facility]) K59.01 77765474 Slow transit constipation Problem 02/05/2019 12:00:00 AM EST eCW1 ([facility]) K57.30 187138824 Diverticulosis of colon without diverticu litis Problem 02/05/2019 12:00:00 AM EST eCW1 ([facility]) N20.0 33464029 Nephrolithiasis Problem 02/05/2019 12:00:00 AM EST eCW1 ([facility]) R531 Weakness Weakness Diagnosis 03/06/2020 10:10:00 AM [facility] L36612 Other pancytopenia Other pancytopenia Diagnosis 10:10:00 AM [facility] Z5111 Encounter for antineoplastic chemotherap y Encounter for antineoplastic chemotherapy Diagnosis 03/04/2020 12:24:00 PM [facility] C9000 Multiple myeloma not having achieved rem ission Multiple myeloma not having achieved remission Diagnosis 03/04/2020 12:24:00 PM [facility] R7303 Prediabetes Prediabetes Diagnosis 03/04/2020 12:24:00 PM [facility] I10 Essential (primary) hypertension Essential (primary) h ypertension Diagnosis 03/04/2020 12:24:00 PM [facility] E876 Hypokalemia Hypokalemia Diagnosis 03/04/2020 12:24:00 PM [facility] E8342 Hypomagnesemia Hypomagnesemia Diagnosis 03/04/2020 12:24: 00 PM [facility] R197 Diarrhea, unspecified Diarrhea, unspecified Diagnosis 03/04/2020 12:24:00 PM [facility] Z1159 Encounter for screening for other viral diseases Encounter for screening for other viral diseases Diagnosis 03/04/2020 12:24:00 PM [facility] R112 Nausea with vomiting, unspecified Nausea with vo miting, unspecified Diagnosis 03/04/2020 12:24:00 PM [facility] E860 Dehydration Dehydration Diagnosis 03/04/2020 12:24:00 PM [facility] E78.2 Mixed hyperlipidemia Mixed hyperlipidemia Diagnosis 10/07/2019 03:58:21 PM EDT [facility] I35.0 Nonrheumatic aortic (valve) stenosis Nonrheumati c aortic (valve) stenosis Diagnosis 10/07/2019 03:58:21 PM EDT [facility] H53.2 Diplopia Diplopia Diagnosis 10/07/2019 03:58:21 PM ED T [facility] I10 Essential (primary) hypertension Essential (primary) h ypertension Diagnosis 10/07/2019 03:58:21 PM EDT [facility] I25.10 Atherosclerotic heart diseas e of [place] coronary artery without angina pectoris Atherosclerotic heart disease of [place] Diagnosis 10/07/2019 03:58:21 PM EDT [facility] M10.9 Gout, unspecified Gout, unspecified Diagnosis 04/12/2019 11:36:51 AM [facility] R76.12 Nonspecific reaction to cell mediated immunity measurement of gamma interferon antigen response without active tuberculosis Nonspecific reaction to cell mediated immunity measurement of gamma interferon antigen response without active tuberculosis Diagnosis 04/12/2019 11:36:51 AM [facility] C90.00 Multiple myeloma not having achieved rem ission Multiple myeloma not having achieved remission Diagnosis 03/20/2019 01:25:42 PM [facility] C90.0 C90.0 Diagnosis 03/20/2019 01:25:42 PM [facility] Surgeries/Procedures Procedure Description Date Indications Data Source(s) Computerized Tomography (CT Scan) of Head Computerized Tomography (CT Scan) of Head 03/10/2020 12:00:00 AM [facility] Plain Radiography of Chest Plain Radiography of Chest 2019 12:00:00 AM [facility] Introduction of Electrolytic and Water B alance Substance into Peripheral Vein, Percutaneous Approach Introduction of Electrolytic and Water B alance Substance into Peripheral Vein, Percutaneous Approach 03/06/2020 12:00:00 AM [facility] Monitoring of Cardiac Electrical Activity, External Ap proach Monitoring of Cardiac Electrical Activity, External Approach 03/06/2020 12:00:00 AM [facility] Immunization: Flublok Quadrivalent (18 years & older) 0.5mL IM (Influenza) 12/20/2019 12:00:00 AM EDT eCW1 ([facility]) Endoscopy Upper GI Biopsy 10/04/2019 12:00:00 AM EDT MEDENT ([facility], ) Colonoscopy W/ Poly 10/04/2019 12:00:00 AM EDT MEDENT ([facility], ) Office Visit, Est Pt., Level 4 PC 07/17/2019 12:00:00 AM EDT eCW1 ([facility]) Office Visit, Est Pt., Level 4 FC 07/17/2019 12:00:00 AM EDT eCW1 ([facility]) Medicare, Tricare, [place], PC-INTERPRETATION AND REPORT 07/17/2019 12:00:00 AM EDT eCW1 ([facility]) Medicare, Tricare, [place], FC-ELECTROCARDIOGRAM, TRACING ON LY 07/17/2019 12:00:00 AM EDT eCW1 ([facility]) PHYSICIAN TELEPHONE EVALUATION 11-20 MIN 06/10/2019 12 :00:00 AM EDT eCW1 ([facility]) FLOW CYTOMETRY CELL CYCLE/DNA SHIMA LEUKEMIA / LYMPHOM A PHENOTYPE, PERIPHERAL BLOOD Routine 03/20/2019 10:25 AM EST 03/20/2019 03:25 :00 PM [facility] Endoscopy Upper GI Biopsy 03/11/2019 12:00:00 AM EST MEDENT ([facility]) Office Visit, Est Pt., Level 2 FC 03/08/2019 12:00:00 AM EST eCW1 ([facility]) Office Visit, Est Pt., Level 3 PC 03/08/2019 12:00:00 AM EST eCW1 ([facility]) Results ID Date Data Source [id number] 03/12/2020 07:14:00 AM [facility] Name Value Range Interpretation Code Description Data Miladys rce(s) Supporting Document(s) CBC W/AUTOMATED DIFF [facility] COMPLETE BLOOD COUNT Leukocytes [#/volume] in Blood by Automated count 2.4 10^3/uL 4.2 - 1 1.0 L [facility] Erythrocytes [#/volume] in Blood by Automated count 2.66 10^6/uL 4. 20 - 5.40 L [facility] Hemoglobin [Mass/volume] in Blood 8.9 g/dL 12.0 - 16.0 L [facility] Hematocrit [Volume Fraction] of Blood by Automated count 26.3 % 3 7.0 - 47.0 L [facility] Erythrocyte mean corpuscular volume [Entitic volume] by Auto mated count 98.9 fL 81.0 - 101 [facility] Erythrocyte mean corpuscular hemoglobin [Entitic mass] by Automated count 33.5 pg 27.0 - 34.0 [facility] Erythrocyte mean corpuscular hemoglobin concentration [Mass/volume] by Automated count 33.8 g/dL 31.0 - 36.0 [facility] Erythrocyte distribution width [Ratio] by Automated count 17.3 % 11.5 - 14.5 H [facility] Platelets [#/volume] in Blood by Automated count 121 10^3/uL 150 - 45 0 L [facility] Platelet mean volume [Entitic volume] in Blood by Automated count 10.1 fL 7.4 - 10.4 [facility] Neutrophils/100 leukocytes in Blood by Automated count 72.5 % 37. 0 - 80.0 [facility] Lymphocytes/100 leukocytes in Blood by Manual count 21.6 % 25.0 - 40.0 L [facility] Monocytes/100 leukocytes in Blood by Automated count 4.2 % 3.0 - 8.0 [facility] Eosinophils/100 leukocytes in Blood by Automated count 0.0 % 0.0 - 7.0 [facility] 0.4 %IG 1.3 % 0.0 - 0.0 H [facility] al %NRBC 0.0 % 0.0 - 0.0 [facility] al Neutrophils [#/volume] in Blood by Automated count 1.71 10^3/uL 2.00 - 6.90 L [facility] Lymphocytes [#/volume] in Blood by Automated count 0.51 10^3/uL 0.60 - 3.40 L [facility] Monocytes [#/volume] in Blood by Automated count 0.10 10^3/uL 0.00 - 0.90 [facility] Eosinophils [#/volume] in Blood by Automated count 0.00 10^3/uL 0.00 - 0.70 [facility] Basophils [#/volume] in Blood by Automated count 0.01 10^3/uL 0.00 - 0.20 [facility] #IG 0.03 10^3/uL 0.00 - 0.10 [facility] #NRBC 0.00 10^3/uL 0.00 - 0.00 [facility] MANUAL DIFF SEE BELOW [facility] ital Segmented neutrophils/100 leukocytes in Blood by Manual count 78 % 37 - 80 [facility] BAND 1 % 0 - 5 [facility] al %LYMPH 18 % 25 - 40 L [facility] al %MONO 2 % 3 - 8 L [facility] al 1 RBC MORPH SEE BELOW [facility] al Anisocytosis [Presence] in Blood by Light microscopy 1+ NATASHA L: NONE SEEN A [facility] Macrocytes [Presence] in Blood by Light microscopy 1+ NORMAL: NONE SEEN A [facility] Poikilocytosis [Presence] in Blood by Light microscopy 1+ NOR MAL: NONE SEEN A [facility] Polychromasia [Presence] in Blood by Light microscopy 1+ NORM AL: NONE SEEN A [facility] { SICKLE CELL (NORMAL: NONE SEEN ) Ovalocytes [Presence] in Blood by Light microscopy 1+ NORMAL: NONE SEEN A [facility] Platelet adequacy [Presence] in Blood by Light microscopy DE CREASED NORMAL: NORMAL A [facility] COMMENT: ID Date Data Source [id number] 03/12/2020 06:43:00 AM [facility] Name Value Range Interpretation Code Description Data Miladys rce(s) Supporting Document(s) Magnesium [Mass/volume] in Serum or Plasma 1.5 MG/DL 1.7 - 2.2 L [facility] ID Date Data Source [id number] 03/12/2020 06:43:00 AM [facility] Name Value Range Interpretation Code Description Data Miladys rce(s) Supporting Document(s) COMPREHENSIVE METABOLIC PANEL [facility] COMPREHENSIVE METABOLIC PANEL Sodium [Moles/volume] in Serum or Plasma 139 mEq/L 134 - 153 [facility] Potassium [Moles/volume] in Serum or Plasma 4.8 mEq/L 3.6 - 5.0 [facility] Chloride [Moles/volume] in Serum or Plasma 104 mEq/L 98 - 107 [facility] Carbon dioxide, total [Moles/volume] in Serum or Plasma 27 MEQ/L 22 - 30 [facility] Glucose [Mass/volume] in Serum or Plasma 142 MG/DL 65 - 110 H [facility] BUN 8 MG/DL 7 - 21 [facility] Creatinine [Mass/volume] in Serum or Plasma 0.5 MG/DL 0.7 - 1.5 L [facility] BUN/CREAT 16 8 - 27 [facility] al Protein [Mass/volume] in Serum or Plasma 5.4 G/DL 6.3 - 8.2 L [facility] Albumin [Mass/volume] in Serum or Plasma 3.5 G/DL 3.9 - 5.0 L [facility] Globulin [Mass/volume] in Serum by calculation 1.9 GM/DL 2.4 - 3.2 L [facility] A/G RATIO 1.8 0.8 - 2.0 [facility] Calcium [Mass/volume] in Serum or Plasma 8.5 MG/DL 8.4 - 10.2 [facility] Bilirubin.total [Mass/volume] in Serum or Plasma 1.0 MG/DL 0.2 - 1.3 [facility] Alkaline phosphatase [Enzymatic activity/volume] in Serum or Plasma 88 U/L 38 - 126 [facility] Aspartate aminotransferase [Enzymatic activity/volume] in Se rum or Plasma 9 U/L 5 - 40 [facility] Alanine aminotransferase [Enzymatic activity/volume] in Seru m or Plasma 7 U/L 7 - 56 [facility] Anion gap 3 in Serum or Plasma 8.0 mmol/L 8.0 - 16.0 [facility] AGE 64 yrs [facility] al NON-AA GFR >60 mL/min [facility] ital AFR AMER GFR >60 [facility] Male GFR In terprentation 20-49 yrs >60 mL/min Normal 50-59 yrs >56 mL/min Normal 60-69 yrs >49 mL/min Normal 70-79yrs >42 mL/min Normal 80 and above >35 mL/min Normal Female GFR Interpretation 20-39 yrs >60 mL/min Normal 40-49 yrs >58 mL/min Normal 50-59 yrs >51 mL/min Normal 60-69 yrs >45 mL/min Normal 70-79 yrs >39 mL/min Normal 80 and above >32 mL/min Normal ID Date Data Source [id number] 03/11/2020 10:52:00 AM [facility] [address] [place] [address] PHONE: [phone] FAX: [phone] Name .................. : GAMA Nobles Acct Number.................. : [id number] ROOM. ................. : 103-1 MR Number ................... : [id number] Stay type ............. : I/P Discharge Date......... ... : Admit Date ......... : 1 05/05/19 Admit Phys .................... : DANIKA-LAWRENCE Date of ....... : 1955 Family Phys ................... : NON STAFF Phone .................. : [phone] Age ................................ : 64 Film# .................. .:[id number] Sex ................................. : F Unsigned transcriptions are preliminary reports and do not represent a medical or legal document CT HEAD W/O CONTRAST [id number] COMPLETE:03/10/20 17:58 1109 (REASON FOR PROCEDURE :H EADACHES CT OF THE HEAD WITHOUT CONTRAST: INDICATION: Headaches. TECHNIQUE: Noncontrast CT head submitted for evaluation. FINDINGS: No intra- axial or extra-axial collections of fluid. Ventricles and sulci unremarkable. No midline shift or mass effect. Visualized paranasal sinuses and mastoid air cells unremarkable. IMPRESSION: No acute intracranial process. While performing the above CT examination, radiation dose reduction was accomplished utilizing automated exposure control, adjusting of the mA and kV based on the patient's body size and/or the use of imperative reconstructive techniques. CT dose: 383 mGycm Electronically Reviewed and Signed By Dewayne Quevedo MD , 03/11/20 10:52, FERNANDO Transcribe Initials: DZ , Transcribe Date: 03/10/20 22:23, Dictation Date: Copy for: 002 [facility] Copy for: [facility] Page 1 of 1 Name Value Range Interpretation Code Description Data Miladys rce(s) Supporting Document(s) ID Date Data Source [id number] 03/13/2020 08:14:00 PM [facility] Name Value Range Interpretation Code Description Data [facility] Document(s) Cytomegalovirus DNA [log units/volume] ( viral load) in Plasma by Probe and target amplification method COMMENT esy62CE/mL [facility] Unable to calculate result since non-num rickey result obtained forcomponent test. Cytomegalovirus DNA [Units/volume] (sohail l load) in Plasma by Probe and target amplification method Negative IU/mL Negative [facility] No CMV DNA detected.The quantitative ran ge of this assay is 200 to 1 million IU/mL.This test was developed and its performance characteristics determinedby [facility]. It has not been cleared or approved by the Food and DrugAdministration. The FDA has determined that such clearance orapproval is not necessary. ID Date Data Source [id number] 03/11/2020 06:59:00 AM [facility] Name Value Range Interpretation Code Description Data [facility](s) Supporting Document(s) CBC W/AUTOMATED DIFF [facility] COMPLETE BLOOD COUNT Leukocytes [#/volume] in Blood by Automated count 2.4 10^3/uL 4.2 - 1 1.0 L [facility] Erythrocytes [#/volume] in Blood by Automated count 2.51 10^6/uL 4. 20 - 5.40 L [facility] Hemoglobin [Mass/volume] in Blood 8.4 g/dL 12.0 - 16.0 L [facility] Hematocrit [Volume Fraction] of Blood by Automated count 25.3 % 3 7.0 - 47.0 L [facility] Erythrocyte mean corpuscular volume [Entitic volume] b y Automated count 100.8 fL 81.0 - 101 [facility] Erythrocyte mean corpuscular hemoglobin [Entitic mass] by Automated count 33.5 pg 27.0 - 34.0 [facility] Erythrocyte mean corpuscular hemoglobin concentration [Mass/volume] by Automated count 33.2 g/dL 31.0 - 36.0 [facility] Erythrocyte distribution width [Ratio] by Automated count 17.9 % 11.5 - 14.5 H [facility] Platelets [#/volume] in Blood by Automated count 101 10^3/uL 150 - 45 0 L [facility] Platelet mean volume [Entitic volume] in Blood by Automated count 10.8 fL 7.4 - 10.4 H [facility] Neutrophils/100 leukocytes in Blood by Automated count 58.0 % 37. 0 - 80.0 [facility] Lymphocytes/100 leukocytes in Blood by Manual count 26.8 % 25.0 - 40.0 [facility] Monocytes/100 leukocytes in Blood by Automated count 10.6 % 3.0 - 8.0 H [facility] Eosinophils/100 leukocytes in Blood by Automated count 3.8 % 0.0 - 7.0 [facility] Basophils/100 leukocytes in Blood by Automated count 0.4 % 0.0 - 2.5 [facility] %IG 0.4 % 0.0 - 0.0 [facility] %[facility] 0.0 % 0.0 - 0.0 [facility] al Neutrophils [#/volume] in Blood by Automated count 1.36 10^3/uL 2.00 - 6.90 L [facility] Lymphocytes [#/volume] in Blood by Automated count 0.63 10^3/uL 0.60 - 3.40 [facility] Monocytes [#/volume] in Blood by Automated count 0.25 10^3/uL 0.00 - 0.90 [facility] Eosinophils [#/volume] in Blood by Automated count 0.09 10^3/uL 0.00 - 0.70 [facility] Basophils [#/volume] in Blood by Automated count 0.01 10^3/uL 0.00 - 0.20 [facility] #IG 0.01 10^3/uL 0.00 - 0.10 [facility] #NRBC 0.00 10^3/uL 0.00 - 0.00 [facility] ospital MANUAL DIFF SEE BELOW [facility] ital Segmented neutrophils/100 leukocytes in Blood by Manual count 65 % 37 - 80 [facility] %LYMPH 20 % 25 - 40 L [facility] al %MONO 9 % 3 - 8 [facility] %EOS 6 % 0 - 7 [facility] RBC MORPH NOT INDICATED [facility] ID Date Data Source [id number] 03/11/2020 06:48:00 AM [facility] Name Value Range Interpretation Code Description Data Miladys rce(s) Supporting Document(s) Magnesium [Mass/volume] in Serum or Plasma 1.5 MG/DL 1.7 - 2.2 L [facility] ID Date Data Source [id number] 03/11/2020 06:48:00 AM [facility] Name Value Range Interpretation Code Description Data Miladys rce(s) Supporting Document(s) COMPREHENSIVE METABOLIC PANEL [facility] COMPREHENSIVE METABOLIC PANEL Sodium [Moles/volume] in Serum or Plasma 139 mEq/L 134 - 153 [facility] Potassium [Moles/volume] in Serum or Plasma 4.1 mEq/L 3.6 - 5.0 [facility] Chloride [Moles/volume] in Serum or Plasma 104 mEq/L 98 - 107 [facility] Carbon dioxide, total [Moles/volume] in Serum or Plasma 29 MEQ/L 22 - 30 [facility] Glucose [Mass/volume] in Serum or Plasma 85 MG/DL 65 - 110 [facility] BUN 5 MG/DL 7 - 21 [facility] Creatinine [Mass/volume] in Serum or Plasma 0.6 MG/DL 0.7 - 1.5 L [facility] BUN/CREAT 8 8 - 27 [facility] al Protein [Mass/volume] in Serum or Plasma 5.1 G/DL 6.3 - 8.2 L [facility] Albumin [Mass/volume] in Serum or Plasma 3.1 G/DL 3.9 - 5.0 L [facility] Globulin [Mass/volume] in Serum by calculation 2.0 GM/DL 2.4 - 3.2 L [facility] A/G RATIO 1.6 0.8 - 2.0 [facility] Calcium [Mass/volume] in Serum or Plasma 8.7 MG/DL 8.4 - 10.2 [facility] Bilirubin.total [Mass/volume] in Serum or Plasma 0.9 MG/DL 0.2 - 1.3 [facility] Alkaline phosphatase [Enzymatic activity/volume] in Serum or Plasma 83 U/L 38 - 126 [facility] Aspartate aminotransferase [Enzymatic activity/volume] in Se rum or Plasma 8 U/L 5 - 40 [facility] Alanine aminotransferase [Enzymatic activity/volume] in Seru m or Plasma 8 U/L 7 - 56 [facility] Anion gap 3 in Serum or Plasma 6.0 mmol/L 8.0 - 16.0 L [facility] AGE 64 yrs [facility] al NON-AA GFR >60 mL/min [facility] ital AFR AMER GFR >60 [facility] Male GFR In terprentation 20-49 yrs >60 mL/min Normal 50-59 yrs >56 mL/min Normal 60-69 yrs >49 mL/min Normal 70-79yrs >42 mL/min Normal 80 and above >35 mL/min Normal Female GFR Interpretation 20-39 yrs >60 mL/min Normal 40-49 yrs >58 mL/min Normal 50-59 yrs >51 mL/min Normal 60-69 yrs >45 mL/min Normal 70-79 yrs >39 mL/min Normal 80 and above >32 mL/min Normal ID Date Data Source [id number] 03/10/2020 07:25:00 AM EST [facility] Name Value Range Interpretation Code Description Data Miladys rce(s) Supporting Document(s) COMPREHENSIVE METABOLIC PANEL [facility] COMPREHENSIVE METABOLIC PANEL Sodium [Moles/volume] in Serum or Plasma 141 mEq/L 134 - 153 [facility] Potassium [Moles/volume] in Serum or Plasma 4.3 mEq/L 3.6 - 5.0 [facility] Chloride [Moles/volume] in Serum or Plasma 105 mEq/L 98 - 107 [facility] Carbon dioxide, total [Moles/volume] in Serum or Plasma 29 MEQ/L 22 - 30 [facility] Glucose [Mass/volume] in Serum or Plasma 103 MG/DL 65 - 110 [facility] BUN 6 MG/DL 7 - 21 L [facility] al Creatinine [Mass/volume] in Serum or Plasma 0.5 MG/DL 0.7 - 1.5 L [facility] BUN/CREAT 12 8 - 27 [facility] Protein [Mass/volume] in Serum or Plasma 5.4 G/DL 6.3 - 8.2 L [facility] Albumin [Mass/volume] in Serum or Plasma 3.4 G/DL 3.9 - 5.0 L [facility] Globulin [Mass/volume] in Serum by calculation 2.0 GM/DL 2.4 - 3.2 L [facility] A/G RATIO 1.7 0.8 - 2.0 [facility] Calcium [Mass/volume] in Serum or Plasma 8.8 MG/DL 8.4 - 10.2 [facility] Bilirubin.total [Mass/volume] in Serum or Plasma 0.7 MG/DL 0.2 - 1.3 [facility] Alkaline phosphatase [Enzymatic activity/volume] in Serum or Plasma 79 U/L 38 - 126 [facility] Aspartate aminotransferase [Enzymatic activity/volume] in Se rum or Plasma 9 U/L 5 - 40 [facility] Alanine aminotransferase [Enzymatic activity/volume] in Seru m or Plasma 8 U/L 7 - 56 [facility] Anion gap 3 in Serum or Plasma 7.0 mmol/L 8.0 - 16.0 L [facility]GE 64 [facility] >60 mL/min [facility] ital AFR AMER GFR >60 [facility] Male GFR In terprentation 20-49 yrs >60 mL/min Normal 50-59 yrs >56 mL/min Normal 60-69 yrs >49 mL/min Normal 70-79yrs >42 mL/min Normal 80 and above >35 mL/min Normal Female GFR Interpretation 20-39 yrs >60 mL/min Normal 40-49 yrs >58 mL/min Normal 50-59 yrs >51 mL/min Normal 60-69 yrs >45 mL/min Normal 70-79 yrs >39 mL/min Normal 80 and above >32 mL/min Normal ID Date Data Source [id number] 03/10/2020 07:25:00 AM [facility] Name Value Range Interpretation Code Description Data Miladys rce(s) Supporting Document(s) Magnesium [Mass/volume] in Serum or Plasma 1.4 MG/DL 1.7 - 2.2 L [facility] ID Date Data Source [id number] 03/10/2020 07:20:00 AM [facility] Name Value Range Interpretation Code Description Data Miladys rce(s) Supporting Document(s) CBC W/AUTOMATED DIFF [facility] COMPLETE BLOOD COUNT Leukocytes [#/volume] in Blood by Automated count 2.7 10^3/uL 4.2 - 1 1.0 L [facility] Erythrocytes [#/volume] in Blood by Automated count 2.62 10^6/uL 4. 20 - 5.40 L [facility] Hemoglobin [Mass/volume] in Blood 8.9 g/dL 12.0 - 16.0 L [facility] Hematocrit [Volume Fraction] of Blood by Automated count 26.4 % 3 7.0 - 47.0 L [facility] Erythrocyte mean corpuscular volume [Entitic volume] b y Automated count 100.8 fL 81.0 - 101 [facility] Erythrocyte mean corpuscular hemoglobin [Entitic mass] by Automated count 34.0 pg 27.0 - 34.0 [facility] Erythrocyte mean corpuscular hemoglobin concentration [Mass/volume] by Automated count 33.7 g/dL 31.0 - 36.0 [facility] Erythrocyte distribution width [Ratio] by Automated count 18.2 % 11.5 - 14.5 H [facility] Platelets [#/volume] in Blood by Automated count 103 10^3/uL 150 - 45 0 L [facility] Platelet mean volume [Entitic volume] in Blood by Automated count 10.2 fL 7.4 - 10.4 [facility] Neutrophils/100 leukocytes in Blood by Automated count 58.0 % 37. 0 - 80.0 [facility] Lymphocytes/100 leukocytes in Blood by Manual count 28.0 % 25.0 - 40.0 [facility] Monocytes/100 leukocytes in Blood by Automated count 10.0 % 3.0 - 8.0 H [facility] Eosinophils/100 leukocytes in Blood by Automated count 2.6 % 0.0 - 7.0 [facility] Basophils/100 leukocytes in Blood by Automated count 0.7 % 0.0 - 2.5 [facility] %IG 0.7 % 0.0 - 0.0 [facility] %NRBC 0.0 % 0.0 - 0.0 [facility] al Neutrophils [#/volume] in Blood by Automated count 1.57 10^3/uL 2.00 - 6.90 L [facility] Lymphocytes [#/volume] in Blood by Automated count 0.76 10^3/uL 0.60 - 3.40 [facility] Monocytes [#/volume] in Blood by Automated count 0.27 10^3/uL 0.00 - 0.90 [facility] Eosinophils [#/volume] in Blood by Automated count 0.07 10^3/uL 0.00 - 0.70 [facility] Basophils [#/volume] in Blood by Automated count 0.02 10^3/uL 0.00 - 0.20 [facility] #IG 0.02 10^3/uL 0.00 - 0.10 [facility] #NRBC 0.00 10^3/uL 0.00 - 0.00 [facility] MANUAL DIFF SEE BELOW [facility] ital Segmented neutrophils/100 leukocytes in Blood by Manual count 64 % 37 - 80 [facility] BAND 1 % 0 - 5 [facility] al %LYMPH 21 % 25 - 40 L [facility] al %MONO 8 % 3 - 8 [facility] al %EOS 5 % 0 - 7 [facility] al Metamyelocytes/100 leukocytes in Blood by Manual count 1 % [facility] RBC MORPH SEE BELOW [facility] Anisocytosis [Presence] in Blood by Light microscopy 1+ NATASHA L: NONE SEEN A [facility] Macrocytes [Presence] in Blood by Light microscopy 1+ NORMAL: NONE SEEN A [facility] Poikilocytosis [Presence] in Blood by Light microscopy 1+ NOR MAL: NONE SEEN A [facility] Polychromasia [Presence] in Blood by Light microscopy 1+ NORM AL: NONE SEEN A [facility] { SICKLE CELL (NORMAL: NONE SEEN ) Platelet adequacy [Presence] in Blood by Light microscopy DE CREASED NORMAL: NORMAL A [facility] COMMENT: ID Date Data Source [id number] 03/09/2020 09:47:00 AM EST [facility] [address] [place] [address] PHONE: [phone] FAX: [phone] Name .................. : GAMA Nobles Acct Number.................. : [id number] ROOM. ................. : 103-1 MR Number ................... : [id number] Stay type ............. : O/P Discharge Date......... ... : Admit Date ......... : 03/04/20 Admit Phys .................... : DANIKA-FALAN Date of ....... : 1955 Family Phys ................... : NON STAFF Phone .................. : [phone] Age ................................ : 64 Film# .................. .:[id number] Sex ................................. : F Unsigned transcriptions are preliminary reports and do not represent a medical or legal document DOPPLER VENOUS BILAT LEG [id number] COMPLETE:03/05/20 12:55 KNB 862 (REASON FOR PROCESS: PAIN VENOUS DO PPLER ULTRASOUND OF THE BILATERAL LOWER EXTREMITIES: FINDINGS: Normal compressibility is demonstrated at bilateral common femoral, superficial femoral and popliteal veins without internal defects to suggest DVT. Normal color and spectral Doppler is demonstrated with augmentation. IMPRESSION: No DVT in bilateral common femoral veins to the popliteal veins. Examination dictated by ZAIN Burk. Examination was reviewed with Torin Swanson MD, radiologist at the time of this dictation. Electronically Reviewed and Signed By Torin Swanson MD , 03/09/20 09:47, AML Transcribe Initials: IDANIA , Transcribe Date: 03/05/20 13:17, Dictation Date: Copy for: 002 [facility] Copy for: 710 [facility] REC Page 1 of 1 Name Value Range Interpretation Code Description Data Miladys rce(s) Supporting Document(s) ID Date Data Source [id number] 03/09/2020 09:20:00 AM EST [facility] [address] [place] [address] PHONE: [phone] FAX: [phone] Name .................. : GAMA Nobles Acct Number.................. : [id number] ROOM. ................. : 103-1 MR Number ................... : [id number] Stay type ............. : I/P Discharge Date......... ... : Admit Date ......... : 03/04/20 Admit Phys .................... : DANIKA-FALAN Date of ....... : 1955 Family Phys ................... : NON STAFF Phone .................. : [phone] Age ................................ : 64 Film# .................. .:[id number] Sex ................................. : F Unsigned transcriptions are preliminary reports and do not represent a medical or legal document CHEST 2 VIEWS [id number] COMPLETE:03/09/20 06:02 BEM 988 (REASON FOR CHEST: fever CHEST TWO VIEW, 03/09/20: INDICATION: Fever. No prior. FINDINGS: Two views of the chest submitted. Hazy left lower lung opacity. Right lung clear. Blunted left costophrenic angle. Cardiac silhouette within normal limits. IMPRESSION: Left lower lung atelectasis and/or infiltrate. Small left effusion. Electronically Reviewed and Signed By Dewayne Quevedo MD , 03/09/20 09:20, FERNANDO Transcribe Initials: SSR, Transcribe Date: 03/09/20 07:55, Dictation Date: Copy for: 002 [facility] Copy for: 710 [facility] REC Page 1 of 1 Name Value Range Interpretation Code Description Data Miladys rce(s) Supporting Document(s) ID Date Data Source [id number] 03/09/2020 07:42:00 AM EST [facility] Name Value Range Interpretation Code Description Data Miladys rce(s) Supporting Document(s) CBC W/AUTOMATED DIFF [facility] COMPLETE BLOOD COUNT Leukocytes [#/volume] in Blood by Automated count 2.3 10^3/uL 4.2 - 1 1.0 L [facility] Erythrocytes [#/volume] in Blood by Automated count 2.75 10^6/uL 4. 20 - 5.40 L [facility] Hemoglobin [Mass/volume] in Blood 9.1 g/dL 12.0 - 16.0 L [facility] Hematocrit [Volume Fraction] of Blood by Automated count 27.1 % 3 7.0 - 47.0 L [facility] Erythrocyte mean corpuscular volume [Entitic volume] by Auto mated count 98.5 fL 81.0 - 101 [facility] Erythrocyte mean corpuscular hemoglobin [Entitic mass] by Automated count 33.1 pg 27.0 - 34.0 [facility] Erythrocyte mean corpuscular hemoglobin concentration [Mass/volume] by Automated count 33.6 g/dL 31.0 - 36.0 [facility] Erythrocyte distribution width [Ratio] by Automated count 17.8 % 11.5 - 14.5 H [facility] Platelets [#/volume] in Blood by Automated count 101 10^3/uL 150 - 45 0 L [facility] Platelet mean volume [Entitic volume] in Blood by Automated count 10.8 fL 7.4 - 10.4 H [facility] Neutrophils/100 leukocytes in Blood by Automated count 58.2 % 37. 0 - 80.0 [facility] Lymphocytes/100 leukocytes in Blood by Manual count 27.0 % 25.0 - 40.0 [facility] Monocytes/100 leukocytes in Blood by Automated count 12.2 % 3.0 - 8.0 H [facility] Eosinophils/100 leukocytes in Blood by Automated count 1.3 % 0.0 - 7.0 [facility] Basophils/100 leukocytes in Blood by Automated count 0.9 % 0.0 - 2.5 [facility] %IG 0.4 % 0.0 - 0.0 H [facility] al %NRBC 0.0 % 0.0 - 0.0 [facility] Neutrophils [#/volume] in Blood by Automated count 1.34 10^3/uL 2.00 - 6.90 L [facility] Lymphocytes [#/volume] in Blood by Automated count 0.62 10^3/uL 0.60 - 3.40 [facility] Monocytes [#/volume] in Blood by Automated count 0.28 10^3/uL 0.00 - 0.90 [facility] Eosinophils [#/volume] in Blood by Automated count 0.03 10^3/uL 0.00 - 0.70 [facility] Basophils [#/volume] in Blood by Automated count 0.02 10^3/uL 0.00 - 0.20 [facility] #IG 0.01 10^3/uL 0.00 - 0.10 [facility] #NRBC 0.00 10^3/uL 0.00 - 0.00 [facility] ospital MANUAL DIFF SEE BELOW [facility] ital Segmented neutrophils/100 leukocytes in Blood by Manual count 62 % 37 - 80 [facility] %LYMPH 29 % 25 - 40 [facility] %MONO 8 % 3 - 8 [facility] %EOS 1 % 0 - 7 [facility] RBC MORPH NOT INDICATED [facility] ID Date Data Source [id number] 03/09/2020 07:26:00 AM EST [facility] Name Value Range Interpretation Code Description Data Miladys rce(s) Supporting Document(s) COMPREHENSIVE METABOLIC PANEL [facility] COMPREHENSIVE METABOLIC PANEL Sodium [Moles/volume] in Serum or Plasma 142 mEq/L 134 - 153 [facility] Potassium [Moles/volume] in Serum or Plasma 3.2 mEq/L 3.6 - 5.0 L [facility] Chloride [Moles/volume] in Serum or Plasma 101 mEq/L 98 - 107 [facility] Carbon dioxide, total [Moles/volume] in Serum or Plasma 34 MEQ/L 22 - 30 H [facility] Glucose [Mass/volume] in Serum or Plasma 99 MG/DL 65 - 110 [facility] BUN 8 MG/DL 7 - 21 [facility] al Creatinine [Mass/volume] in Serum or Plasma 0.7 MG/DL 0.7 - 1.5 [facility] BUN/CREAT 11 8 - 27 [facility] Protein [Mass/volume] in Serum or Plasma 5.4 G/DL 6.3 - 8.2 L [facility] Albumin [Mass/volume] in Serum or Plasma 3.6 G/DL 3.9 - 5.0 L [facility] Globulin [Mass/volume] in Serum by calculation 1.8 GM/DL 2.4 - 3.2 L [facility] A/G RATIO 2.0 0.8 - 2.0 [facility] Calcium [Mass/volume] in Serum or Plasma 8.5 MG/DL 8.4 - 10.2 [facility] Bilirubin.total [Mass/volume] in Serum or Plasma 1.0 MG/DL 0.2 - 1.3 [facility] Alkaline phosphatase [Enzymatic activity/volume] in Serum or Plasma 79 U/L 38 - 126 [facility] Aspartate aminotransferase [Enzymatic activity/volume] in Se rum or Plasma 9 U/L 5 - 40 [facility] Alanine aminotransferase [Enzymatic activity/volume] in Seru m or Plasma 8 U/L 7 - 56 [facility] Anion gap 3 in Serum or Plasma 7.0 mmol/L 8.0 - 16.0 L [facility] AGE 64 yrs [facility] al NON-AA GFR >60 mL/min [facility] ital AFR AMER GFR >60 [facility] Male GFR In terprentation 20-49 yrs >60 mL/min Normal 50-59 yrs >56 mL/min Normal 60-69 yrs >49 mL/min Normal 70-79yrs >42 mL/min Normal 80 and above >35 mL/min Normal Female GFR Interpretation 20-39 yrs >60 mL/min Normal 40-49 yrs >58 mL/min Normal 50-59 yrs >51 mL/min Normal 60-69 yrs >45 mL/min Normal 70-79 yrs >39 mL/min Normal 80 and above >32 mL/min Normal ID Date Data Source [id number] 03/09/2020 07:26:00 AM [facility] Value Range Interpretation Code Description Data Miladys rce(s) Supporting Document(s) Magnesium [Mass/volume] in Serum or Plasma 1.2 MG/DL 1.7 - 2.2 L [facility] ID Date Data Source [id number] 03/16/2020 12:12:00 PM [facility] Value Range Interpretation Code Description Data Miladys rce(s) Supporting Document(s) CULTURE BLOOD [facility]ital _CULTURE BLOOD_ TEST [place] [address] CLIA# [id number] SEE SCANNED REPORT{ PRELIM ID Date Data Source [id number] 03/10/2020 01:00:00 PM Health system [id number]/10/20 12:56 CALLED TO WAYNE Nobles BY OPAL, RESULTS READBACKThe [employer] BCID Panel is a qualitative multiplexednucleic acid-based test - PCRNormal results for each test is "Not detected"The BCID panel detects KPC,mecA,Noah/Bresistance,enterococcus,L.monocytogenes,Staphlococcus,S.aureus,St reptococcus,GRP B, GRP A, S.pneumoniae,A.baumanii,Enterobacteriaceae,E.cloacae complex,E.coli,K.ox ytoca,K.pneumoniae,Proteus,S.marcescens,H.influenzae,N.meningitidis,P.aeruginosa ,C. albicans,C.glabrata ,C.krusei,C.parapsilosis,C.tropicalisTraditional Culture ID and Sensitivities will still beperformed on all positive blood cultures.The [employer] BCID panel may not distinguish mixed cultureswhen two or more species of the same genus or organism groupare present in a specimen.This test is a qualitative test and does not provide aquantitative value for the organism(s)in the sample.Antimicrobial resistance can occur via multiple mechanisms.A Not detected result for the [employer] antimicrobialresistance gene assays does not indicate antimicrobialsusceptibility. Subculturing and standard susceptibilitytesting of isolates is requried to determine antimicrobialsusceptibility.Results from this test must be correlated with the clinicalhistory, epidemiological data,and otherdata available to theclinician evaluating the patient.mecA(meth-resistance gene)Staphylococcus species Name Value Range Interpretation Code Description Data Miladys rce(s) Supporting Document(s) ID Date Data Source [id number] 03/16/2020 12:12:00 PM EST [facility] Name Value Range Interpretation Code Description Data Miladys rce(s) Supporting Document(s) CULTURE BLOOD [facility] _CULTURE BLOOD_ TEST [place] [address] CLIA# [id number] SEE SCANNED REPORT{ PRELIM GROWTH OF GRAM POS COCCI IN CLUSTERSCALLED TO PAT ON AIU 03/10/20 1305 CM ID Date Data Source [id number] 03/08/2020 08:45:00 PM EST [facility] Name Value Range Interpretation Code Description Data Miladys rce(s) Supporting Document(s) COVID-19 NOT DETECTED [facility] This lab was ordered by [facility] and reported by [facility]. ID Date Data Source [id number] 03/08/2020 08:45:00 PM EST [facility] Name Value Range Interpretation Code Description Data Miladys rce(s) Supporting Document(s) COVID-19 REENTER NOT DETECTED [facility] This lab was ordered by [facility] and reported by [facility]. ID Date Data Source [id number] 03/08/2020 09:35:00 PM [facility] Name Value Range Interpretation Code Description Data Miladys rce(s) Supporting Document(s) COVID-19 NOT DETECTED [facility] COVID-19 REENTER NOT DETECTED [facility] { PROCEDURAL CONTROL VALID KIT LOT # _[id number] 03/08/20.DW . KIT EXP DATE _07-01-34 03/08/20.DW . NORMAL RANGE IS NOT DETECTEDNEGATIVE RESULTS SHOULD BE TREATED PREUMPTIVE AND, IF INCONSISTENT WITHCLINICAL SIGNS AND SYMPTOMS OR NECESSARY FOR PATIENT MANAGEMENT, SHOULD BETESTED WITH DIFFERENT AUTHORIZED OR CLEARED MOLECULAR TESTS. NEGATIVE RESULTSDO NOT PRECLUDE SARS-CoV-2 INFECTION AND SHOULD NOT BE USED THE SOLE BASISFOR PATIENT MANAGEMENT DECISIONS. ID Date Data Source [id number] 03/08/2020 11:55:00 AM [facility] Name Value Range Interpretation Code Description Data Miladys rce(s) Supporting Document(s) Magnesium [Mass/volume] in Serum or Plasma 1.6 MG/DL 1.7 - 2.2 L [facility] ID Date Data Source [id number] 03/08/2020 09:41:00 AM [facility] Value Range Interpretation Code Description Data Miladys rce(s) Supporting Document(s) CBC W/AUTOMATED DIFF [facility] COMPLETE BLOOD COUNT Leukocytes [#/volume] in Blood by Automated count 2.3 10^3/uL 4.2 - 1 1.0 L [facility] Erythrocytes [#/volume] in Blood by Automated count 2.51 10^6/uL 4. 20 - 5.40 L [facility] Hemoglobin [Mass/volume] in Blood 8.5 g/dL 12.0 - 16.0 L [facility] Hematocrit [Volume Fraction] of Blood by Automated count 24.6 % 3 7.0 - 47.0 L [facility] Erythrocyte mean corpuscular volume [Entitic volume] by Auto mated count 98.0 fL 81.0 - 101 [facility] Erythrocyte mean corpuscular hemoglobin [Entitic mass] by Automated count 33.9 pg 27.0 - 34.0 [facility] Erythrocyte mean corpuscular hemoglobin concentration [Mass/volume] by Automated count 34.6 g/dL 31.0 - 36.0 [facility] Erythrocyte distribution width [Ratio] by Automated count 17.5 % 11.5 - 14.5 H [facility] Platelets [#/volume] in Blood by Automated count 94 10^3/uL 150 - 450 L [facility] Platelet mean volume [Entitic volume] in Blood by Automated count 11.1 fL 7.4 - 10.4 H [facility] Neutrophils/100 leukocytes in Blood by Automated count 61.3 % 37. 0 - 80.0 [facility] Lymphocytes/100 leukocytes in Blood by Manual count 23.2 % 25.0 - 40.0 L [facility] Monocytes/100 leukocytes in Blood by Automated count 12.9 % 3.0 - 8.0 H [facility] Eosinophils/100 leukocytes in Blood by Automated count 1.3 % 0.0 - 7.0 [facility] Basophils/100 leukocytes in Blood by Automated count 0.9 % 0.0 - 2.5 [facility] %IG 0.4 % 0.0 - 0.0 [facility] 0.0 % 0.0 - 0.0 [facility] al Neutrophils [#/volume] in Blood by Automated count 1.43 10^3/uL 2.00 - 6.90 L [facility] Lymphocytes [#/volume] in Blood by Automated count 0.54 10^3/uL 0.60 - 3.40 L [facility] Monocytes [#/volume] in Blood by Automated count 0.30 10^3/uL 0.00 - 0.90 [facility] Eosinophils [#/volume] in Blood by Automated count 0.03 10^3/uL 0.00 - 0.70 [facility] Basophils [#/volume] in Blood by Automated count 0.02 10^3/uL 0.00 - 0.20 [facility] #IG 0.01 10^3/uL 0.00 - 0.10 [facility] #NRBC 0.00 10^3/uL 0.00 - 0.00 [facility] MANUAL DIFF NOT INDICATED [facility] RBC MORPH NOT INDICATED [facility] ID Date Data Source [id number] 03/08/2020 09:00:00 AM EST [facility] Name Value Range Interpretation Code Description Data Miladys rce(s) Supporting Document(s) COMPREHENSIVE METABOLIC PANEL [facility] COMPREHENSIVE METABOLIC PANEL Sodium [Moles/volume] in Serum or Plasma 141 mEq/L 134 - 153 [facility] Potassium [Moles/volume] in Serum or Plasma 3.1 mEq/L 3.6 - 5.0 L [facility] Chloride [Moles/volume] in Serum or Plasma 106 mEq/L 98 - 107 [facility] Carbon dioxide, total [Moles/volume] in Serum or Plasma 30 MEQ/L 22 - 30 [facility] Glucose [Mass/volume] in Serum or Plasma 86 MG/DL 65 - 110 [facility] BUN <4 MG/DL 7 - 21 L [facility] Creatinine [Mass/volume] in Serum or Plasma 0.5 MG/DL 0.7 - 1.5 L [facility] BUN/CREAT 8 8 - 27 [facility] al Protein [Mass/volume] in Serum or Plasma 5.1 G/DL 6.3 - 8.2 L [facility] Albumin [Mass/volume] in Serum or Plasma 2.9 G/DL 3.9 - 5.0 L [facility] Globulin [Mass/volume] in Serum by calculation 2.2 GM/DL 2.4 - 3.2 L [facility] A/G RATIO 1.3 0.8 - 2.0 [facility] Calcium [Mass/volume] in Serum or Plasma 8.3 MG/DL 8.4 - 10.2 L [facility] Bilirubin.total [Mass/volume] in Serum or Plasma 0.8 MG/DL 0.2 - 1.3 [facility] Alkaline phosphatase [Enzymatic activity/volume] in Serum or Plasma 70 U/L 38 - 126 [facility] Aspartate aminotransferase [Enzymatic activity/volume] in Se rum or Plasma 8 U/L 5 - 40 [facility] Alanine aminotransferase [Enzymatic activity/volume] in Seru m or Plasma 7 U/L 7 - 56 [facility] Anion gap 3 in Serum or Plasma 5.0 mmol/L 8.0 - 16.0 L [facility] AGE 64 yrs [facility] NON-AA GFR >60 mL/min [facility] ital AFR AMER GFR >60 [facility] Male GFR In terprentation 20-49 yrs >60 mL/min Normal 50-59 yrs >56 mL/min Normal 60-69 yrs >49 mL/min Normal 70-79yrs >42 mL/min Normal 80 and above >35 mL/min Normal Female GFR Interpretation 20-39 yrs >60 mL/min Normal 40-49 yrs >58 mL/min Normal 50-59 yrs >51 mL/min Normal 60-69 yrs >45 mL/min Normal 70-79 yrs >39 mL/min Normal 80 and above >32 mL/min Normal ID Date Data Source [id number] 03/07/2020 10:42:00 AM [facility] Name Value Range Interpretation Code Description Data Miladys rce(s) Supporting Document(s) Iron [Mass/volume] in Serum or Plasma 62 UG/DL 42 - 135 [facility] ID Date Data Source [id number] 03/07/2020 09:11:00 AM [facility] Name Value Range Interpretation Code Description Data Miladys rce(s) Supporting Document(s) CBC W/AUTOMATED DIFF [facility] COMPLETE BLOOD COUNT Leukocytes [#/volume] in Blood by Automated count 2.5 10^3/uL 4.2 - 1 1.0 L [facility] Erythrocytes [#/volume] in Blood by Automated count 2.52 10^6/uL 4. 20 - 5.40 L [facility] Hemoglobin [Mass/volume] in Blood 8.4 g/dL 12.0 - 16.0 L [facility] Hematocrit [Volume Fraction] of Blood by Automated count 24.8 % 3 7.0 - 47.0 L [facility] Erythrocyte mean corpuscular volume [Entitic volume] by Auto mated count 98.4 fL 81.0 - 101 [facility] Erythrocyte mean corpuscular hemoglobin [Entitic mass] by Automated count 33.3 pg 27.0 - 34.0 [facility] Erythrocyte mean corpuscular hemoglobin concentration [Mass/volume] by Automated count 33.9 g/dL 31.0 - 36.0 [facility] Erythrocyte distribution width [Ratio] by Automated count 17.5 % 11.5 - 14.5 H [facility] Platelets [#/volume] in Blood by Automated count 86 10^3/uL 150 - 450 L [facility] Platelet mean volume [Entitic volume] in Blood by Automated count 10.5 fL 7.4 - 10.4 H [facility] Neutrophils/100 leukocytes in Blood by Automated count 66.3 % 37. 0 - 80.0 [facility] Lymphocytes/100 leukocytes in Blood by Manual count 18.9 % 25.0 - 40.0 L [facility] Monocytes/100 leukocytes in Blood by Automated count 10.8 % 3.0 - 8.0 H [facility] Eosinophils/100 leukocytes in Blood by Automated count 2.8 % 0.0 - 7.0 [facility] Basophils/100 leukocytes in Blood by Automated count 0.8 % 0.0 - 2.5 [facility] %IG 0.4 % 0.0 - 0.0 [facility] 0.0 % 0.0 - 0.0 [facility] al Neutrophils [#/volume] in Blood by Automated count 1.65 10^3/uL 2.00 - 6.90 L [facility] Lymphocytes [#/volume] in Blood by Automated count 0.47 10^3/uL 0.60 - 3.40 L [facility] Monocytes [#/volume] in Blood by Automated count 0.27 10^3/uL 0.00 - 0.90 [facility] Eosinophils [#/volume] in Blood by Automated count 0.07 10^3/uL 0.00 - 0.70 [facility] Basophils [#/volume] in Blood by Automated count 0.02 10^3/uL 0.00 - 0.20 [facility] #IG 0.01 10^3/uL 0.00 - 0.10 [facility] ospital #NRBC 0.00 10^3/uL 0.00 - 0.00 [facility]ital MANUAL DIFF NOT INDICATED [facility] RBC MORPH NOT INDICATED [facility] ID Date Data Source [id number] 03/07/2020 08:40:00 AM [facility] Name Value Range Interpretation Code Description Data Miladys rce(s) Supporting Document(s) Magnesium [Mass/volume] in Serum or Plasma 1.1 MG/DL 1.7 - 2.2 L [facility] ID Date Data Source [id number] 03/07/2020 08:40:00 AM [facility] Name Value Range Interpretation Code Description Data Miladys rce(s) Supporting Document(s) COMPREHENSIVE METABOLIC PANEL [facility] COMPREHENSIVE METABOLIC PANEL Sodium [Moles/volume] in Serum or Plasma 139 mEq/L 134 - 153 [facility] Potassium [Moles/volume] in Serum or Plasma 3.4 mEq/L 3.6 - 5.0 L [facility] Chloride [Moles/volume] in Serum or Plasma 107 mEq/L 98 - 107 [facility] Carbon dioxide, total [Moles/volume] in Serum or Plasma 26 MEQ/L 22 - 30 [facility] Glucose [Mass/volume] in Serum or Plasma 91 MG/DL 65 - 110 [facility] BUN 5 MG/DL 7 - 21 L [facility] Creatinine [Mass/volume] in Serum or Plasma 0.5 MG/DL 0.7 - 1.5 L [facility] BUN/CREAT 10 8 - 27 [facility] Protein [Mass/volume] in Serum or Plasma 4.7 G/DL 6.3 - 8.2 L [facility] Albumin [Mass/volume] in Serum or Plasma 3.0 G/DL 3.9 - 5.0 L [facility] Globulin [Mass/volume] in Serum by calculation 1.7 GM/DL 2.4 - 3.2 L [facility] A/G RATIO 1.8 0.8 - 2.0 [facility] Calcium [Mass/volume] in Serum or Plasma 8.0 MG/DL 8.4 - 10.2 L [facility] Bilirubin.total [Mass/volume] in Serum or Plasma <0.7 MG/DL 0.2 - 1.3 [facility] Alkaline phosphatase [Enzymatic activity/volume] in Serum or Plasma 69 U/L 38 - 126 [facility] Aspartate aminotransferase [Enzymatic activity/volume] in Se rum or Plasma 8 U/L 5 - 40 [facility] Alanine aminotransferase [Enzymatic activity/volume] in Seru m or Plasma 6 U/L 7 - 56 L [facility] Anion gap 3 in Serum or Plasma 6.0 mmol/L 8.0 - 16.0 L [facility]GE 64 [facility] >60 mL/min [facility] AFR AMER GFR >60 [facility] Male GFR In terprentation 20-49 yrs >60 mL/min Normal 50-59 yrs >56 mL/min Normal 60-69 yrs >49 mL/min Normal 70-79yrs >42 mL/min Normal 80 and above >35 mL/min Normal Female GFR Interpretation 20-39 yrs >60 mL/min Normal 40-49 yrs >58 mL/min Normal 50-59 yrs >51 mL/min Normal 60-69 yrs >45 mL/min Normal 70-79 yrs >39 mL/min Normal 80 and above >32 mL/min Normal ID Date Data Source [id number] 03/11/2020 06:20:00 AM [facility] Name Value Range Interpretation Code Description Data Miladys rce(s) Supporting Document(s) Clostridium difficile toxin A+B [Presence] in Stool by Immun oassay Negative Negative [facility] ID Date Data Source [id number] 03/10/2020 06:12:00 AM [facility] Name Value Range Interpretation Code Description Data Miladys rce(s) Supporting Document(s) WBC STOOL [facility] al _WBC STOOL_$$[id number]$$[id number]$$[id number] $$[id number]$$[id number]$$[id number] DATE/TIME: 03/09/2020 18:05Culture: WBC STOOL Status: FinalWhite Blood Cells (WBC), Stool: P1No white blood cells seen.Reference Range: None SeenP1 Test performed by: [facility] CLIA #: [id number] [address] [place] [address] [id number] [facility] [id number] Director : Hira Cole MD NPI #:Turbine Mechanic : 03/10/20.0613.XMT.SENT REF ID Date Data Source [id number] 03/06/2020 07:44:00 AM [facility] Name Value Range Interpretation Code Description Data Miladys e(s) Supporting Document(s) Magnesium [Mass/volume] in Serum or Plasma 1.4 MG/DL 1.7 - 2.2 L [facility] ID Date Data Source [id number] 03/06/2020 07:44:00 AM [facility] Name Value Range Interpretation Code Description Data Miladys rce(s) Supporting Document(s) COMPREHENSIVE METABOLIC PANEL [facility] COMPREHENSIVE METABOLIC PANEL Sodium [Moles/volume] in Serum or Plasma 141 mEq/L 134 - 153 [facility] Potassium [Moles/volume] in Serum or Plasma 3.8 mEq/L 3.6 - 5.0 [facility] Chloride [Moles/volume] in Serum or Plasma 108 mEq/L 98 - 107 H [facility] Carbon dioxide, total [Moles/volume] in Serum or Plasma 27 MEQ/L 22 - 30 [facility] Glucose [Mass/volume] in Serum or Plasma 114 MG/DL 65 - 110 H [facility] BUN 9 MG/DL 7 - 21 [facility] Creat[facility] [Mass/volume] in Serum or Plasma 0.6 MG/DL 0.7 - 1.5 L [facility] BUN/CREAT 15 8 - 27 [facility] al Protein [Mass/volume] in Serum or Plasma 5.3 G/DL 6.3 - 8.2 L [facility] Albumin [Mass/volume] in Serum or Plasma 3.5 G/DL 3.9 - 5.0 L [facility] Globulin [Mass/volume] in Serum by calculation 1.8 GM/DL 2.4 - 3.2 L [facility] A/G RATIO 1.9 0.8 - 2.0 [facility] Calcium [Mass/volume] in Serum or Plasma 8.6 MG/DL 8.4 - 10.2 [facility] Bilirubin.total [Mass/volume] in Serum or Plasma <0.7 MG/DL 0.2 - 1.3 [facility] Alkaline phosphatase [Enzymatic activity/volume] in Serum or Plasma 80 U/L 38 - 126 [facility] Aspartate aminotransferase [Enzymatic activity/volume] in Se rum or Plasma 8 U/L 5 - 40 [facility] Alanine aminotransferase [Enzymatic activity/volume] in Seru m or Plasma 8 U/L 7 - 56 [facility] Anion gap 3 in Serum or Plasma 6.0 mmol/L 8.0 - 16.0 L [facility] AGE 64 yrs [facility] Hospit al NON-AA GFR >60 mL/min [facility] Hosp ital AFR AMER GFR >60 [facility] Hos pital Male GFR In terprentation 20-49 yrs >60 mL/min Normal 50-59 yrs >56 mL/min Normal 60-69 yrs >49 mL/min Normal 70-79yrs >42 mL/min Normal 80 and above >35 mL/min Normal Female GFR Interpretation 20-39 yrs >60 mL/min Normal 40-49 yrs >58 mL/min Normal 50-59 yrs >51 mL/min Normal 60-69 yrs >45 mL/min Normal 70-79 yrs >39 mL/min Normal 80 and above >32 mL/min Normal ID Date Data Source [id number] 03/06/2020 07:33:00 AM EST [facility] Name Value Range Interpretation Code Description Data Miladys rce(s) Supporting Document(s) CBC W/AUTOMATED DIFF [facility] COMPLETE BLOOD COUNT Leukocytes [#/volume] in Blood by Automated count 2.7 10^3/uL 4.2 - 1 1.0 L [facility] Erythrocytes [#/volume] in Blood by Automated count 2.68 10^6/uL 4. 20 - 5.40 L [facility] Hemoglobin [Mass/volume] in Blood 8.8 g/dL 12.0 - 16.0 L [facility] Hematocrit [Volume Fraction] of Blood by Automated count 26.9 % 3 7.0 - 47.0 L [facility] Erythrocyte mean corpuscular volume [Entitic volume] b y Automated count 100.4 fL 81.0 - 101 [facility] Erythrocyte mean corpuscular hemoglobin [Entitic mass] by Automated count 32.8 pg 27.0 - 34.0 [facility] Erythrocyte mean corpuscular hemoglobin concentration [Mass/volume] by Automated count 32.7 g/dL 31.0 - 36.0 [facility] Erythrocyte distribution width [Ratio] by Automated count 18.1 % 11.5 - 14.5 H [facility] Platelets [#/volume] in Blood by Automated count 96 10^3/uL 150 - 450 L [facility] Platelet mean volume [Entitic volume] in Blood by Automated count 10.5 fL 7.4 - 10.4 H [facility] Neutrophils/100 leukocytes in Blood by Automated count 67.5 % 37. 0 - 80.0 [facility] Lymphocytes/100 leukocytes in Blood by Manual count 18.1 % 25.0 - 40.0 L [facility] Monocytes/100 leukocytes in Blood by Automated count 10.0 % 3.0 - 8.0 H [facility] Eosinophils/100 leukocytes in Blood by Automated count 2.2 % 0.0 - 7.0 [facility] Basophils/100 leukocytes in Blood by Automated count 1.5 % 0.0 - 2.5 [facility] %IG 0.7 % 0.0 - 0.0 [facility] %NRBC 0.0 % 0.0 - 0.0 [facility] al Neutrophils [#/volume] in Blood by Automated count 1.82 10^3/uL 2.00 - 6.90 L [facility] Lymphocytes [#/volume] in Blood by Automated count 0.49 10^3/uL 0.60 - 3.40 L [facility] Monocytes [#/volume] in Blood by Automated count 0.27 10^3/uL 0.00 - 0.90 [facility] Eosinophils [#/volume] in Blood by Automated count 0.06 10^3/uL 0.00 - 0.70 [facility] Basophils [#/volume] in Blood by Automated count 0.04 10^3/uL 0.00 - 0.20 [facility] #IG 0.02 10^3/uL 0.00 - 0.10 [facility] #NRBC 0.00 10^3/uL 0.00 - 0.00 [facility] MANUAL DIFF NOT INDICATED [facility] RBC MORPH NOT INDICATED [facility] spital ID Date Data Source [id number] 03/10/2020 09:30:00 AM EST [facility] Name Value Range Interpretation Code Description Data Miladys rce(s) Supporting Document(s) CULTURE STOOL [facility] spital _CULTURE STOOL_$$[id number]$$[id number]$$[id number]$$[id number]$$[id number]$$[id number]$$[id number]$$[id number]$$[id number]$$ [id number]$$[id number]$$[id number]$$[id number] DATE/TIME: 03/10/2020 07:06Culture: CULTURE STOOL Status: FinalSalmonella/Shigella Screen: P1No Salmonella or Shigella recovered.NO COLIFORMS ISOLATED Previous result entered on 03/08/2020 12:28 ET Microbiological testing to rule out the presence of possible pathogensis in progress.Campylobacter Culture: P1No Campylobacter species isolated. -- Continued on next page --Patient: GAMA Nobles Order: [id number] Page 2Culture: CULTURE STOOL Status: Final ====E coli Shiga Toxin EIA: [id number] Range: NegativeP1 Test performed by: [facility] #: [id number] [address] [place] [address] [id number] [facility] [address]Medical Director : Hira Cole MD NPI #:Turbine Mechanic : 03/09/20.0723.XMT.SENT REF 03/09/20.1434.XMT.SENT REF 03/10/20.0930.XMT.SENT REF ID Date Data Source [id number] 03/05/2020 10:21:00 AM [facility] Name Value Range Interpretation Code Description Data Miladys rce(s) Supporting Document(s) Lactate [Moles/volume] in Serum or Plasma 1.9 MMOL/L 0.2 - 2.2 [facility] ID Date Data Source [id number] 03/05/2020 09:13:00 AM EST [facility] [address] [place] [address] PHONE: [phone] FAX: [phone] Name .................. : GAMA Nobles Acct Number.................. : [id number] ROOM. ................. : 103-1 MR Number ................... : [id number] Stay type ............. : O/P Discharge Date......... ... : Admit Date ......... : 03/04/20 Admit Phys .................... : DANIKA-LAWRENCE Date of ....... : 1955 Family Phys ................... : NON STAFF Phone .................. : [phone] Age ................................ : 64 Film# .................. .:[id number] Sex ................................. : F Unsigned transcriptions are preliminary reports and do not represent a medical or legal document ABDOMEN 1 VIEW 92317 COMPLETE:03/04/20 14:04 ARS 792 Reason(s): n/v/d r/o obstruction KUB: SINGLE VIEW INDICATION: Nausea, vomiting and diarrhea, rule out obstruction. FINDINGS: The bowel gas pattern is nonspecific. The osseous structures show diffuse degenerative changes. IMPRESSION: No acute findings. Nonspecific bowel gas pattern. Examination dictated by ZAIN Burk. Examination was reviewed with Romle Fleming MD, radiologist at the time of this dictation. Electronically Reviewed and Signed By Romel Fleming MD , 03/05/20 09:13, KGG Transcribe Initials: DZ , Transcribe Date: 03/05/20 00:38, Dictation Date: Copy for: EMERGENCY DEPT via modem Copy for: 710 MED REC Page 1 of 1 Name Value Range Interpretation Code Description Data Miladys rce(s) Supporting Document(s) ID Date Data Source [id number] 03/05/2020 08:08:00 AM EST [facility] Name Value Range Interpretation Code Description Data Miladys rce(s) Supporting Document(s) CBC W/AUTOMATED DIFF [facility] COMPLETE BLOOD COUNT Leukocytes [#/volume] in Blood by Automated count 2.3 10^3/uL 4.2 - 1 1.0 L [facility] Erythrocytes [#/volume] in Blood by Automated count 2.70 10^6/uL 4. 20 - 5.40 L [facility] Hemoglobin [Mass/volume] in Blood 9.1 g/dL 12.0 - 16.0 L [facility] Hematocrit [Volume Fraction] of Blood by Automated count 27.1 % 3 7.0 - 47.0 L [facility] Erythrocyte mean corpuscular volume [Entitic volume] b y Automated count 100.4 fL 81.0 - 101 [facility] Erythrocyte mean corpuscular hemoglobin [Entitic mass] by Automated count 33.7 pg 27.0 - 34.0 [facility] Erythrocyte mean corpuscular hemoglobin concentration [Mass/volume] by Automated count 33.6 g/dL 31.0 - 36.0 [facility] Erythrocyte distribution width [Ratio] by Automated count 18.0 % 11.5 - 14.5 H [facility] Platelets [#/volume] in Blood by Automated count 92 10^3/uL 150 - 450 L [facility] Platelet mean volume [Entitic volume] in Blood by Automated count 10.7 fL 7.4 - 10.4 H [facility] Neutrophils/100 leukocytes in Blood by Automated count 60.3 % 37. 0 - 80.0 [facility] Lymphocytes/100 leukocytes in Blood by Manual count 20.3 % 25.0 - 40.0 L [facility] Monocytes/100 leukocytes in Blood by Automated count 16.0 % 3.0 - 8.0 H [facility] Eosinophils/100 leukocytes in Blood by Automated count 1.3 % 0.0 - 7.0 [facility] Basophils/100 leukocytes in Blood by Automated count 1.7 % 0.0 - 2.5 [facility] %IG 0.4 % 0.0 - 0.0 H [facility] al %NRBC 0.0 % 0.0 - 0.0 [facility] Neutrophils [#/volume] in Blood by Automated count 1.39 10^3/uL 2.00 - 6.90 L [facility] Lymphocytes [#/volume] in Blood by Automated count 0.47 10^3/uL 0.60 - 3.40 L [facility] Monocytes [#/volume] in Blood by Automated count 0.37 10^3/uL 0.00 - 0.90 [facility] Eosinophils [#/volume] in Blood by Automated count 0.03 10^3/uL 0.00 - 0.70 [facility] Basophils [#/volume] in Blood by Automated count 0.04 10^3/uL 0.00 - 0.20 [facility] #IG 0.01 10^3/uL 0.00 - 0.10 [facility] H ospital #NRBC 0.00 10^3/uL 0.00 - 0.00 [facility] ospital MANUAL DIFF SEE BELOW [facility] ital Segmented neutrophils/100 leukocytes in Blood by Manual count 65 % 37 - 80 [facility] Hospital %LYMPH 23 % 25 - 40 L [facility] al %MONO 11 % 3 - 8 H [facility] al %EOS 1 % 0 - 7 [facility] al RBC MORPH SEE BELOW [facility] al Anisocytosis [Presence] in Blood by Light microscopy 1+ NATASHA L: NONE SEEN A [facility] Macrocytes [Presence] in Blood by Light microscopy 1+ NORMAL: NONE SEEN A [facility] Poikilocytosis [Presence] in Blood by Light microscopy 1+ NOR MAL: NONE SEEN A [facility] { SICKLE CELL (NORMAL: NONE SEEN ) Platelet adequacy [Presence] in Blood by Light microscopy DE CREASED NORMAL: NORMAL A [facility] COMMENT: ID Date Data Source [id number] 03/05/2020 07:47:00 AM [facility] Name Value Range Interpretation Code Description Data Miladys rce(s) Supporting Document(s) Phosphate [Mass/volume] in Serum or Plasma 3.6 MG/DL 2.5 - 4.5 [facility] ID Date Data Source [id number] 03/05/2020 07:47:00 AM [facility] Name Value Range Interpretation Code Description Data Miladys rce(s) Supporting Document(s) Magnesium [Mass/volume] in Serum or Plasma 1.6 MG/DL 1.7 - 2.2 L [facility] ID Date Data Source [id number] 03/05/2020 07:47:00 AM [facility] Name Value Range Interpretation Code Description Data Miladys rce(s) Supporting Document(s) COMPREHENSIVE METABOLIC PANEL [facility] COMPREHENSIVE METABOLIC PANEL Sodium [Moles/volume] in Serum or Plasma 144 mEq/L 134 - 153 [facility] Potassium [Moles/volume] in Serum or Plasma 3.3 mEq/L 3.6 - 5.0 L [facility] Chloride [Moles/volume] in Serum or Plasma 106 mEq/L 98 - 107 [facility] Carbon dioxide, total [Moles/volume] in Serum or Plasma 29 MEQ/L 22 - 30 [facility] Glucose [Mass/volume] in Serum or Plasma 110 MG/DL 65 - 110 [facility] BUN 17 MG/DL 7 - 21 [facility] al Creatinine [Mass/volume] in Serum or Plasma 0.8 MG/DL 0.7 - 1.5 [facility] BUN/CREAT 21 8 - 27 [facility] Protein [Mass/volume] in Serum or Plasma 5.3 G/DL 6.3 - 8.2 L [facility] Albumin [Mass/volume] in Serum or Plasma 3.5 G/DL 3.9 - 5.0 L [facility] Globulin [Mass/volume] in Serum by calculation 1.8 GM/DL 2.4 - 3.2 L [facility] A/G RATIO 1.9 0.8 - 2.0 [facility] Calcium [Mass/volume] in Serum or Plasma 8.5 MG/DL 8.4 - 10.2 [facility] Bilirubin.total [Mass/volume] in Serum or Plasma <0.7 MG/DL 0.2 - 1.3 [facility] Alkaline phosphatase [Enzymatic activity/volume] in Serum or Plasma 73 U/L 38 - 126 [facility] Aspartate aminotransferase [Enzymatic activity/volume] in Se rum or Plasma 8 U/L 5 - 40 [facility] Alanine aminotransferase [Enzymatic activity/volume] in Seru m or Plasma 8 U/L 7 - 56 [facility] Anion gap 3 in Serum or Plasma 9.0 mmol/L 8.0 - 16.0 [facility] AGE 64 yrs [facility] al NON-AA GFR >60 mL/min [facility] ital AFR AMER GFR >60 [facility] Male GFR In terprentation 20-49 yrs >60 mL/min Normal 50-59 yrs >56 mL/min Normal 60-69 yrs >49 mL/min Normal 70-79yrs >42 mL/min Normal 80 and above >35 mL/min Normal Female GFR Interpretation 20-39 yrs >60 mL/min Normal 40-49 yrs >58 mL/min Normal 50-59 yrs >51 mL/min Normal 60-69 yrs >45 mL/min Normal 70-79 yrs >39 mL/min Normal 80 and above >32 mL/min Normal ID Date Data Source [id number] 03/05/2020 02:48:00 AM EST [facility] Name Value Range Interpretation Code Description Data Miladys rce(s) Supporting Document(s) BASIC METABOLIC PANEL [facility] BASIC METABOLIC PANEL Sodium [Moles/volume] in Serum or Plasma 140 mEq/L 134 - 153 [facility] Potassium [Moles/volume] in Serum or Plasma 3.4 mEq/L 3.6 - 5.0 L [facility] Chloride [Moles/volume] in Serum or Plasma 102 mEq/L 98 - 107 [facility] Carbon dioxide, total [Moles/volume] in Serum or Plasma 28 MEQ/L 22 - 30 [facility] Glucose [Mass/volume] in Serum or Plasma 136 MG/DL 65 - 110 H [facility] BUN 20 MG/DL 7 - 21 [facility] al Creatinine [Mass/volume] in Serum or Plasma 0.8 MG/DL 0.7 - 1.5 [facility] BUN/CREAT 25 8 - 27 [facility] Calcium [Mass/volume] in Serum or Plasma 8.7 MG/DL 8.4 - 10.2 [facility] Anion gap 3 in Serum or Plasma 10.0 mmol/L 8.0 - 16.0 [facility] AGE 64 yrs [facility] al AFR AMER GFR >60 [facility]ital NON-AA GFR >60 mL/min [facility] ital Male GFR Inter prentation 20-49 yrs >60 mL/min Normal 50-59 yrs >56 mL/min Normal 60-69 yrs >49 mL/min Normal 70-79yrs >42 mL/min Normal 80 and above >35 mL/min Normal Female GFR Interpretation 20-39 yrs >60 mL/min Normal 40-49 yrs >58 mL/min Normal 50-59 yrs >51 mL/min Normal 60-69 yrs >45 mL/min Normal 70-79 yrs >39 mL/min Normal 80 and above >32 mL/min Normal ID Date Data Source [id number] 03/05/2020 02:41:00 AM [facility] Name Value Range Interpretation Code Description Data Miladys rce(s) Supporting Document(s) Magnesium [Mass/volume] in Serum or Plasma 1.7 MG/DL 1.7 - 2.2 [facility] ID Date Data Source [id number] 03/04/2020 08:14:00 PM EST [facility] Name Value Range Interpretation Code Description Data Miladys rce(s) Supporting Document(s) [facility] SOURCE R [facility] al COLOR yellow NORMAL: Yellow [facility] ospital CLARITY hazy NORMAL: Clear [facility] spital Specific gravity of Urine by Test strip 1.020 1.001 - 1.030 [facility] pH 5 5 - 9 [facility] al Glucose [Mass/volume] in Urine by Test strip NORM NORMAL: Negat [facility] Bilirubin.total [Presence] in Urine by Test strip NEG NORMAL: Negative [facility] Ketones [Presence] in Urine by Test strip NEG NORMAL: Negative [facility] Protein [Mass/volume] in Urine by Test strip 15 NORMAL: Negat [facility] Nitrite [Presence] in Urine by Test strip NEG NORMAL: Negative [facility] BLOOD NEG NORMAL: Negative [facility] Leukocyte esterase [Presence] in Urine by Test strip NEG NATASHA L: Negative [facility] Urobilinogen [Mass/volume] in Urine by Test strip NOR less lori n 1.0 mg/dL [facility] MICROSCOPIC Not Indicate [facility]spital ID Date Data Source [id number] 03/04/2020 12:24:00 PM [facility] 1 OrderSheet [facility] Emergency Department [address] [place] [address] Phone #: ext- [phone] 03/04/2020 11:58 Patient: JEREMI MALLOY Sex: F : 1955 Age: 64yWEIGHT:83.2 kg (S) HEIGHT:64 inches (S) BMI:31.5ALLERGIES: Amitriptyline, Carisoprodol, Codeine, Doxycycline, FLUOCINOLONE, Gabapentin, Keppra,Metformin , NSAIDs, OCYCODONE, PredniSONE, Quinolones, Spironolactone, TylenolCHIEF COMPLAINT: diarrheaDIAGNOSIS: Diarrhea, O/E - dehydrated, HypomagnesemiaLAB OR DERSOrder Description Priority Entered Acknowledged InitialedC w Diff STAT 12:04 03/04/2020 12:18 Natasha Mcgowan MD; Rachid RNCMP STAT 12:04 03/04/2020 12:18 Natasha Mcgowan MD; Rachid RNLactic Acid STAT 12:04 03/04/2020 12:18 Natasha Mcgwoan MD; Rachid RNLDH STAT 12:04 03/04/2020 12:18 Natasha Mcgowan MD; Rachid RNLipase STAT 12:04 03/04/2020 12:18 Natasha Mcgowan MD; Rachid RNUrinalysis (Clean STAT 12:04 03/04/2020 18:40 Natasha Hernandez MD; Rachid RNMagnesium STAT 13:22 03/04/2020 13:48 Natasha Mcgowan MD; Rachid RNPhosphorus STAT 13:22 03/04/2020 13:48 Natasha Mcgowan MD; Rachid RNStool WBCS STAT 13:25 03/04/2020 18:28 Natasha Mcgowan MD; Rachid RNCulture, Stool STAT 13:25 03/04/2020 18:28 Natasha Mcgowan MD; Rachid RNCORONAVIRUS STAT 16:37 03/04/2020 16:43 Mcneil,COVID-19 Natasha Montero MD; Lisa(UnknownSymptomatic asDefined by CDC)(03/04/2020) (FirstTest) (NotHospitalized) (Not) (NotResident in 2 OrderSheet [facility] Emergency Department [address] [place] [address] Phone #: ext- [phone] 03/04/2020 11:58 Patient: JEREMI MALLOY Sex: F : 1955 Age: 64yCongregate CareSetting) (NotEmployed inHealthcare Setting)Clostridium Difficile STAT 17:11 03/04/2020 18:28 HankToxin Natasha Montero MD; Rachid PAULDIAGNOSTIC STUDY ORDERSOrder Description Priority Entered Acknowledged InitialedAbdomen Multiview STAT 12:04 03/04/2020 Cancelled: Physician Order 12:54(Oxygen?(No)) Natasha Montero MD; Anna Cruz R.N. Reason for Study: Abdominal PainAbdomen 1 View STAT 12:55 03/04/2020 13:10 Anna Chavis RN R.N.; Verbal order per; Natasha Montero MD Reason for Study: n/v/d r/o obstructionMEDICATION/IV/DRIP/FLUID ORDERSOrder Description Priority Entered Acknowledged InitialedIV NS 500 mL Bolus 12:04 03/04/2020 12:45 Peter: Bolus 500 mL (X1) Natasha Montero MD; Rachid RNPotassium Chloride 16:28 03/04/2020 16:44 Mcneil,Liquid PO 40 meq Naatsha Montero MD; Lisa(NOW x1)Magnesium Sulfate 17:04 03/04/2020 17:23 Peter2 g IVPB X1 dose: 2 Natasha Montero MD; Rachid PAULgm (HIGH ALERTMEDICATION, X1)GENERAL ORDERSOrder Description Priority Entered Acknowledged Initialed[Electronically signed by Lisa Mcneil (18:50 03/04/2020)][Electronically signed by Natasha Montero MD (19:40 03/04/2020)][Electronically locked by Lisa Mcneil (18:50 03/04/2020)] Name Value Range Interpretation Code Description Data Miladys rce(s) Supporting Document(s) ID Date Data Source [id number] 03/04/2020 12:24:00 PM EST [facility] 1 Medication Reconciliation Report [facility] Emergency Department [address] [place] [address] Phone #: ext- [phone] 03/04/2020 11:58 Patient: JEREMI MALLOY Sex: F : 1955 Age: 64yWeight: 83.2 kgHeight/Length: 64 in.BMI: 31.5ALLERGIES: Amitriptyline, Carisoprodol, Codeine, Doxycycline, FLUOCINOLONE, Gabapentin,Keppra, Metformin , NSAIDs, OCYCODONE, PredniSONE, Quinolones, Spironolactone, TylenolThe patient's Home Medications are listed below:THE FOLLOWING MEDICATIONS NEED TO BE RECONCILED: Acyclovir Oral 400 mg, 2x a day Allopurinol Oral 100 mg, daily Budesonide ER Oral 3 MG, 3x a day Claritin Oral 10 mg, daily Colace Oral 100 mg, daily Cozaar Oral 25 mg, daily Imodium A-D Oral 2 mg, 4x a day, prn Magnesium Oral 400 mg, daily Metoprolol Tartrate Oral 25 mg, 2x a day MG Plus Protein Oral (133 mg) 1 tablet, 2x a day Morphine Sulfate ER Oral 15 MG, 3x a day, prn Potassium Chloride ER Oral (10 meq) 1 capsule, 4x a day, prn Torsemide Oral 100 mg traMADol HCl ER (Biphasic) Oral 50 MG, q6h, prn Zofran ODT Oral, 3x a day, prn 2 Medication Reconciliation Report [facility] Emergency Department [address] [place] [address] Phone #: ext- [phone] 03/04/2020 11:58 Patient: JEREMI MALLOY Sex: F : 1955 Age: 64yThe source(s) of the original Home Medication information:patientThe following Medications were given to the patient in the Emergency Department:NS [IV] IV Fluids bolus 500 mL over 15 minute(s), then 100 mL/hr, administered: 12:45 03/04/2020POTASSIUM CHLORIDE LIQUID PO PO 40 meq, administered: 16:44 03/04/2020Magnesium Sulfate [IV Drip] Drip IV bolus 0, then 2 gm 50 mL/hr, administered: 17:23 03/04/2020The following Medications were prescribed to the patient:None. Name Value Range Interpretation Code Description Data Miladys rce(s) Supporting Document(s) ID Date Data Source [id number] 03/04/2020 12:24:00 PM EST [facility] 1 Medication Administration Record [facility] Emergency Department [address] [place] [address] Phone #: [phone] qbw- [phone] 03/04/2020 11:58 Patient: JEREMI MALLOY Sex: F : 1955 Age: 64yWeight: 83.2 kgHeight/Length: 64 inBMI: 31.5ALLERGIES: Quinolones, FLUOCINOLONE, Doxycycline, Tylenol, Spironolactone, PredniSONE, OCYCODONE, Metformin ,Keppra, Gabapentin, Codeine, Carisoprodol, Amitriptyline, NSAIDs Date/Time Medication Administered Medication OrderedStart NS [IV] IV NS 500 mL Bolus : Bolus 90498:45 03/04/2020 Dose: IV Fluids mL (X1)Hank Rashid RN Rate: 100 mL/hr over 5 hour(s)---- Bolus: 500 mL over 15 minute(s)Stop Dispensed: 1000 mL bag17:22 03/04/2020 Site: #2 right A Kee Rashid RNGiven POTASSIUM CHLORIDE LIQUID PO Potassium Chloride Liquid PO 4016:44 03/04/2020 Dose: 40 meq Oral Suspension PO meq (NOW x1)Lisa Mcneil,Start MAGNESIUM SULFATE [IV DRIP] Magnesium Sulfate 2 g IVPB X117:23 03/04/2020 Dose: 2 gm Drip IV dose: 2 gm (HIGH Juliann Rashid RN Rate: 50 mL/hr over 1 hour(s) MEDICATION, X1)---- Dispensed: 50 mL bagStop Site: #2 right AC18:23 03/04/2020Lisa Mcneil, Name Value Range Interpretation Code Description Data Miladys rce(s) Supporting Document(s) ID Date Data Source [id number] 03/04/2020 12:24:00 PM [facility] 1 General Instructions [facility] Emergency Department [address] [place] [address] Phone #: ext- [phone] 03/04/2020 11:58 Patient: JEREMI MALLOY Sex: F : 1955 Age: 64yDiarrhea.Dehydration.Hypomagnesemia.(Electronically signed by Natasha Montero MD 03/04/2020 19:40) Name Value Range Interpretation Code Description Data Miladys rce(s) Supporting Document(s) ID Date Data Source [id number] 03/04/2020 12:24:00 PM [facility] 1 Clinical Report - Nurses [facility] Emergency Department [address] [place] [address] Phone #: ext- [phone] 03/04/2020 11:58 Patient: JEREMI MALLOY Sex: F : 1955 Age: 64yTRIAGE Arrived by EMS. Historian: patient. Acuity: LEVEL 3. Chief Complaint: NAUSEA, VOMITING and DIARRHEA. Alert. No acute distress. Onset. (5 days ago). ( PATIENT IS 3 WEEKS S/P STEM CELL TRANSPLANT AT [facility]. PT HAS LYMPHOMA AND STATES SHE RECEIVED HER OWN STEM CELLS. ONCOLOGIST CONTACTED TODAY WHO ADVISED ER VISIT. PATIENT C/O DIZZINESS AND LIGHTHEADEDNESS STARTING 2 DAYS AGO.). No constipation, abdominal pain or fever. Last oral intake by patient was this morning (0400). Treatment UNIVERSAL BRANCH CONSULTANT: None. (UNABLE TO KEEP HER MEDICATIONS DOWN). EMS Treatment UNIVERSAL BRANCH CONSULTANT: See EMS report. SEPSIS SCREEN: SEPSIS SCREEN NEGATIVE. No suspected or confirmed signs of infection pr esent. --12:07 03/04/20 Olga Ramos R.N. 12:00 03/04/20. BP: 154/96. MAP: 115. HR: 109. RR: 20. O2 saturation: 96% on room air. Temp: 98.9 F. Pain level now: 0/10. --12:07 03/04/20 Olga Ramos R.N. Weight: 83.2 kg stated. Height/Length: 64 inches Per Patient. BMI: 31.5. --12:00 03/04/20 Olga Ramos R.N. Medications Acyclovir Oral 400 mg, 2x a day. --12:11 03/04/20 Olga Ramos R.N. Allopurinol Oral 100 mg, daily. --12:12 03/04/20 Olga Ramos R.N. Budesonide ER Oral 3 MG, 3x a day. --12:12 03/04/20 Olga Ramos R.N. Colace Oral 100 mg, daily. --12:13 03/04/20 Olga Ramos R.N. Imodium A-D Oral 2 mg, 4x a day as needed. --12:13 03/04/20 Olga Ramos R.N. Claritin Oral 10 mg, daily. --12:13 03/04/20 Olga Ramos R.N. Cozaar Oral 25 mg, daily. --12:13 03/04/20 Olga Ramos R.N. Magnesium Oral 400 mg, daily. --12:14 03/04/20 Olga Ramos R.N. MG Plus Protein Oral (Tablet 133 mg) 1 tablet, 2x a day. --12:14 03/04/20 Olga Ramos R.N. Metoprolol Tartrate Oral 25 mg, 2x a day. --12:14 03/04/20 Olga Ramos R.N. Morphine Sulfate ER Oral 15 MG, 3x a day as needed. --12:15 03/04/20 Olga Ramos R.N. 2 Clinical Report - Nurses [facility] Emergency Department [address] [place] [address] Phone #: ext- [phone] 03/04/2020 11:58 Patient: JEREMI MALLOY Sex: F : 1955 Age: 64yZofran ODT Oral, 3x a day as needed. --12:15 03/04/20 Olga Ramos R.N.Potassium Chloride ER Oral (Capsule Extended Release 10 meq) 1 capsule, 4x a day as needed.--12:16 03/04/20 Olga Ramos R.N.Torsemide Oral 100 mg. --12:16 03/04/20 Olga Ramos R.N.traMADol HCl ER (Biphasic) Oral 50 MG, q6h as needed. --12:16 03/04/20 Olga Ramos R.N.AllergiesNSAIDs. --12:08 03/04/20 Olga Ramos R.N.Amitriptyline. --12:08 03/04/20 Olga Ramos R.N.Carisoprodol. --12:03/04/20 Olga Ramos R.N.Codeine. --12:03/04/20 Olga Ramos R.N.Gabapentin. --12:03/04/20 Olga Ramos R.N.Keppra. --12:03/04/20 Olga Ramos R.N.Metformin . --12:03/04/20 Olga Ramos R.N.OCYCODONE. --12:03/04/20 Olga Ramos R.N.PredniSONE. --12:03/04/20 Olga Ramos R.N.Spironolactone. --12:03/04/20 Olga Ramos R.N.Tylenol. --12:03/04/20 Olga Ramos R.N.Doxycycline. --12:03/04/20 Olga Ramos R.N.FLUOCINOLONE. --12:03/04/20 Olga Ramos R.N.Quinolones. --12:03/04/20 Olga Ramos R.N.PROBLEMS:Hyperlipidemia.borderline DM.Htn.Malignant Lymphoma. --12:03/04/20 Olga Ramos R.N.Medication/allergy information source: the patient. --12:07 03/04/20 Olga Ramos R.N.ADDITIONAL SURGERIES:Cholecystectomy.Cyst removal from rt arm.Hysterectomy.PORT PLACEMENT WITH REMOVAL. --12:03/04/20 Olga Ramos R.N.HistoryPAST MEDICAL HX: Immunizations: up-to-date. Denies current .SOCIAL HX: Never smoker. No alcohol use or drug use. No recent travel. No known contact with a sickindividual. She was offered HIV testing but declined and hepatitis C testing but declined. She has nottraveled outside the [place]Infectious disease exposure: No infectious disease exposure. The patient was not exposed to C-diff,MRSA, VRE, CRE or Coronavirus. 3 Clinical Report - Nurses [facility] Emergency Department [address] [place] [address] Phone #: ext- [phone] 03/04/2020 11:58 Patient: JEREMI MALLOY Sex: F : 1955 Age: 64y SELF HARM ASSESSMENT: Self harm assessment was performed. The patient answered "no" to the question(s) "Have you recently felt down, depressed, or hopeless?", "Do you have thoughts of harming or killing yourself?", "Do you have a plan for harming or killing yourself?", "Have you recently had thoughts about harming or killing others?", "Do you have any dangerous items in your possession?", "Have you noticed less interest or pleasure in doing things?", "Are you here because you tried to hurt yourself?" and "Have you ever tried to hurt yourself before today?". ABUSE ASSESSMENT: No report of abuse. FUNCTIONAL ASSESSMENT: Functional assessment: no impairments noted. LEARNING NEEDS ASSESSMENT: The learning needs assessment revealed no barriers. FALL RISK ASSESSMENT: Fall risk assessment completed. Risk factors identified include dizziness and patient age greater than 65 years. NUTRITIONAL RISK ASSESSMENT: The patient has experienced recent unexpected weight loss. The patient has recently had recurrent vomiting and recurrent diarrhea. Recently, the patient has had chemotherapy. SKIN INTEGRITY ASSESSMENT: Skin integrity risk assessment completed. No skin integrity risk identified. --12:03/04/20 Olga Ramos R.N. Interventions Precautions initiated (REVERSE). --12:03/04/20 Olga Ramos R.N.PHYSICAL ASSESSMENT To room via stretcher. GENERAL / NEURO / PSYCH: Alert. Oriented X 4. Appears in distress. RESPIRATORY: Respirations not labored. Breath sounds within normal limits. CVS: Normal sinus rhythm noted. Capillary refill less than 2 seconds. GI / : The patient has had nausea. Emesis noted. Abdomen soft and nontender. Bowel sounds within normal limits. SKIN: Skin is pale. Skin is warm and dry. -- 12:03/04/20 Hank Rashid RN.NURSING PROGRESS NOTES Patient gowned. Head of bed elevated. Reassurance given. Patient identifiers checked. Call light placed in reach. Side rails up x 2. Bed placed in lowest position. Brakes of bed on. Patient ready for evaluation. --12:03/04/20 Olga Ramos RAlexandro 12:03/04/2020 Site #1 started via IV in the right hand with an 20g angiocath, with aseptic technique and good blood return; one attempt. --:03/04/20 Hank Rashid RN 12:03/04/2020 Site #1 removed (infiltrated). --:03/04/20 Hank Rashid RN 4 Clinical Report - Nurses [facility] Emergency Department [address] [place] [address] Phone #: ext- [phone] 03/04 11:58 Patient: JEREMI MALLOY Sex: F : 1955 Age: 64y12:41 03/04/2020 Site #2 started via IV in the right antecubital space with an 20g angiocath, with aseptictechnique and good blood return; one attempt. Blood drawn: rainbow set and green tube(s). Labeled in thepresence of the patient and sent to the lab. Saline lock flushed with 10 mL saline. --12:03/04/20 HUMBERTO Ledesma12:45 03/04/2020 Started bag #1 1000 mL IV Fluids NS; bolus of 500 mL over 15 minute(s) then at 100mL/hr over 5 hour(s) via site #2 via IV pump. Allergies verified and confirmed 5 rights. IV patencyestablished. IV site checked: no pain, redness, or swelling. IV flushed thoroughly pre- and post- medicationadministration. Information reviewed with patient including reason for taking this medication. Verbalizesunderstanding. --12:45 03/04/20 KARUNA Parry:10 03/04/20. Patient returned from radiology by stretcher with mask and lawn and garden technician. --13: Hank Rashid RN13:15 03/04/20. BP: 127/93. MAP: 104. HR: 101. RR: 16. O2 saturation: 98%. Pain level now: 0/10.--13:15 03/04/20 Hank Rashid RN13:45 03/04/20. BP: 112/81. MAP: 91. HR: 96. RR: 18. O2 saturation: 96%. --15:44 03/04/20 [facility] Vfyh092:15 03/04/20. BP: 128/77. MAP: 94. HR: 95. RR: 17. O2 saturation: 96%. --15:45 03/04/20 [facility] Vcis966:45 03/04/20. BP: 136/84. MAP: 101. HR: 98. RR: 17. O2 saturation: 95%. --15:45 03/04/20 [facility] Tbel012:15 03/04/20. BP: 118/74. MAP: 88. HR: 99. RR: 17. O2 saturation: 95%. --15:46 03/04/20 [facility] Wuoh195:44 03/04/2020 POTASSIUM CHLORIDE LIQUID PO PO Oral Suspension 40 meq given. Allergiesverified and confirmed 5 rights. Information reviewed with patient including reason for taking thismedication, signs of allergic reaction and precautions. Verbalizes understanding. --16:44 03/04/20Lisa McneilTime-out completed immediately before the procedure. (swabbed for covid rapid test) --16:50 03/04/20PhSupa cameronda16:45 03/04/20. BP: 144/81. MAP: 102. O2 saturation: 97%. Pain level now: 0/10. --16:50 03/04/20Lisa Mcneil17:03/04/2020 IV Fluids NS via IV site #2 Discontinued: infused. Total amount infused: 990 mL. IVpatency established. IV site checked: no pain, redness, or swelling. IV flushed thoroughly. --17: Hank Rashid RN 5 Clinical Report - Nurses [facility] Emergency Department [address] [place] [address] Phone #: ext- [phone] 03/04/2020 11:58 Patient: JEREMI MALLOY Sex: F : 1955 Age: 64y 17:03/04/2020 Started 2 gm of Magnesium Sulfate Drip IV in bag #1 50 mL; at 50 mL/hr over 1 hour(s) via site #2. via IV pump. Allergies verified and confirmed 5 rights. IV patency established. IV site checked: no pain, redness, or swelling. IV flushed thoroughly pre- and post-medication administration. Information reviewed with patient including reason for taking this medication. Verbalizes understanding. --17:03/04/20 Hank Rashid RN 17:03/04/20. BP: 137/91. MAP: 106. HR: 88. RR: 18. O2 saturation: 96%. Pain level now: 0/10. --17:03/04/20 Hank Rashid RN 18:21 03/04/20. BP: 140/87. MAP: 104. HR: 88. RR: 16. O2 saturation: 95%. Temp: 100 F. Pain level now: 0/10. --18:03/04/20 Lisa Mcneil 18:03/04/2020 Magnesium Sulfate Drip IV via IV site #2 Discontinued: bag #1 completed. Total amount infused: 50 ml mL. IV patency established. IV site checked: no pain, redness, or swelling. IV flushed thoroughly. --18:03/04/20 Lisa Mcneil.DISPOSITION / DISCHARGE 18:40 03/04/20. Departure time: 18:40 03/04/2020. [place] Coma Scale: 15- eyes open- spontaneous (4); best verbal response- oriented (5); best motor response- obeys commands (6). Cardiac rhythm: normal sinus rhythm. Condition at departure: stable. Fall risk assessment completed. Risk factors identified include nausea, dizziness, weakness and patient impairment of mobility. Fall interventions initiated. Side rails up x2. Bed in low position. Brakes on. Call light in reach of patient. Instructions given to patient. Verbalizes understanding. Ad mitted to the Acute Inpatient Unit. Transported via stretcher by nurse with monitor. Report was given to a nurse in person and at bedside. Report included information regarding patient's care, treatment, allergies and condition, current vital signs and abnormal labs. Report included treatment information regarding medications given or pending; type and amount of IV fluids and medications infusing and total volume infused. All questions were answered. Report was acknowledged and care was transferred. ( Bedside report given to Gretel PAUL). --18:47 03/04/20 Lsia Mcneil 18:41 03/04/20. Pain level now 0/10. --18:47 03/04/20 Lisa Mcneil.Locked/Released at 03/04/2020 18:50 by Lisa Mcneil Name Value Range Interpretation Code Description Data Miladys rce(s) Supporting Document(s) ID Date Data Source [id number] 03/04/2020 12:24:00 PM EST [facility] 1 Clinical Report - Physicians/Mid Levels [facility] Emergency Department [address] [place] [address] Phone #: ext- [phone] 03/04/2020 11:58 Patient: JEREMI MALLOY Sex: F : 1955 Age: 64y Arrived- By ambulance. Historian- patient. Disposition decision: 17:19 03/04/2020.HISTORY OF PRESENT ILLNESS Chief Complaint: DIARRHEA. No recent travel. No nausea, vomiting, black stools, bloody stools or abdominal pain. No constipation, flank pain, history of possible bad food exposure, known contact with a sick individual or change in routine. The patient has had diarrhea. Has recently been on antibiotics but not recently been camping. This started 5 days and is still present. It is not gone now. ((5 days ago). ( PATIENT IS 3 WEEKS S/P STEM CELL TRANSPLANT AT [facility]. PT HAS LYMPHOMA AND STATES SHE RECEIVED HER OWN STEM CELLS. ONCOLOGIST CONTACTED TODAY WHO ADVISED ER VISIT. PATIENT C/O DIZZINESS AND LIGHTHEADEDNESS STARTING 2 DAYS AGO.). No constipation, abdominal pain or fever. Last oral intake by patient was this morning (0400).). Similar symptoms previously. None. Recent medical care: The patient was seen recently at another facility in the office.REVIEW OF SYSTEMSNo fever, muscle aches, difficulty with urination or urination or dark urine. No headache, sore throat orthroat or cough. No chest pain or pain, excessive urination or skin rash or rash. No jaundice, back painor pain, fainting episodes or blurred vision. No chills, fever, photophobia, ear drainage or nasalcongestion. No runny nose, cough, abdominal pain, black stools or bloody stools. No constipation,nausea, vomiting, urinary frequency or hematuria. No headache, seizure or easy bruising. The patienthas had dizziness, anorexia and diarrhea.PAST HISTORYSee nurses notes. Problems: Hyperlipidemia. borderline DM. Htn. Malignant Lymphoma. Additional Surgeries: Cholecystectomy. Cyst removal from rt arm. Hysterectomy. PORT PLACEMENT WITH REMOVAL. 2 Clinical Report - Physicians/Mid Levels [facility] Emergency Department [address] [place] [address] Phone #: ext- [phone] 03/04/2020 11:58 Patient: JEREMI MALLOY Sex: F : 1955 Age: 64y M edications: traMADol HCl ER (Biphasic) Oral 50 MG, q6h as needed. Torsemide Oral 100 mg. Potassium Chloride ER Oral (Capsule Extended Release 10 meq) 1 capsule, 4x a day as needed. Zofran ODT Oral, 3x a day as needed. Morphine Sulfate ER Oral 15 MG, 3x a day as needed. Metoprolol Tartrate Oral 25 mg, 2x a day. MG Plus Protein Oral (Tablet 133 mg) 1 tablet, 2x a day. Magnesium Oral 400 mg, daily. Cozaar Oral 25 mg, daily. Claritin Oral 10 mg, daily. Imodium A-D Oral 2 mg, 4x a day as needed. Colace Oral 100 mg, daily. Budesonide ER Oral 3 MG, 3x a day. Allopurinol Oral 100 mg, daily. Acyclovir Oral 400 mg, 2x a day. Allergies: Amitriptyline. Carisoprodol. Codeine. Doxycycline. FLUOCINOLONE. Gabapentin. Keppra. Metformin . NSAIDs. OCYCODONE. PredniSONE. Quinolones. Spironolactone. Tylenol.SOCIAL HISTORYNo drug use.ADDITIONAL NOTESThe nursing notes have been reviewed.PHYSICAL EXAMVital Signs: 03/04/2020 18:21 BP: 140/87. MAP: 104. HR: 88. RR: 16. O2 saturation: 95%. Temp: 100 F.Pain level now: 0/10.03/04/2020 17:28 BP: 137/91. MAP: 106. HR: 88. RR: 18. O2 saturation: 96%. Pain level now: 0/10.03/04/2020 16:45 BP: 144/81. MAP: 102. O2 saturation: 97%. Pain level now: 0/10. 3 Clinical Report - Physicians/Mid Levels [facility] Emergency Department [address] [place] [address] Phone #: ext- [phone] 03/04/2020 11:58 Patient: JEREMI MALLOY Sex: F : 1955 Age: 64y12 15:45 BP: 148/80. MAP: 102. HR: 98. RR: 17. O2 saturation: 96%.03/04/2020 15:15 BP: 118/74. MAP: 88. HR: 99. RR: 17. O2 saturation: 95%.03/04/2020 14:45 BP: 136/84. MAP: 101. HR: 98. RR: 17. O2 saturation: 95%.03/04/2020 14:15 BP: 128/77. MAP: 94. HR: 95. RR: 17. O2 saturation: 96%.03/04/2020 13:45 BP: 112/81. MAP: 91. HR: 96. RR: 18. O2 saturation: 96%.03/04/2020 13:15 BP: 127/93. MAP: 104. HR: 101. RR: 16. O2 saturation: 98%. Pain level now: 0/10.03/04/2020 12:00 BP: 154/96. MAP: 115. HR: 109. RR: 20. O2 saturation: 96% on room air. Temp: 98.9 F.Pain level now: 0/10. Have been reviewed and appear to be correct. Hypertensive. Mean arterialpressure- high. Heart rate normal. Respiratory rate normal. Temperature normal. Oxygen saturationnormal.Appearance: Alert. Oriented X3. No acute distress. (fatigue).Eyes: Pupils equal, round and reactive to light. Eyes normal inspection.ENT: Ears normal. Nose normal. Dry mucous membranes present.Neck: Normal inspection. Neck supple.CVS: Normal heart rate and rhythm. Heart sounds normal. Pulses normal.Respiratory: No respiratory distress. Painless inspiration. Breath sounds normal.Abdomen: Soft and nontender. Bowel sounds normal.Back: Normal inspection. No CVA tenderness.Skin: Skin warm and dry. Normal skin color. No rash. Normal skin turgor.Extremities: Extremities exhibit normal ROM. No lower extremity edema.Neuro: Oriented X 3. No motor deficit. No sensory deficit.LABS, X-RAYS, AND EKGLaboratory Tests:CORONAVIRUS COVID-19: (BERNADETTE: 03/04/2020 16:37) ( MsgRcvd 03/04/2020 16:53) CanceledFirst test? Y Employed in healthcare? NSymptomatic as defined by CDC? U Hospitalized? NResident in a congregate care setting? N ? NOnset Date (use MM/DD/YYYY) 03/04/2020Magnesium: (BERNADETTE: 03/04/2020 12:41) ( MsgRcvd 03/04/2020 16:33) Final results Test Result Flag Units (Reference) MAGNESIUM 1.3 L MG/DL (1.7 - 2.2)Phosphorus: (BERNADETTE: 03/04/2020 12:41) ( MsgRcvd 03/04/2020 13:54) Final results Test Result Flag Units (Reference) PHOSPHORUS 4.0 MG/DL (2.5 - 4.5)Abdomen 1 View: (BERNADETTE: 03/04/2020 12:55) ( MsgRcvd 03/04/2020 14:04) In ProgressABDOMEN 1 VIEWReason(s): n/v/d r/o obstructionTRANSPORTATION: WC IV? Room: ED ED5C w Diff: (BERNADETTE: 03/04/2020 12:41) ( TngRcvd 03/04/2020 13:21) Final results Test Result Flag Units (Reference) 4 Clinical Report - Physicians/Mid Levels [facility] Emergency Department [address] [place] [address] Phone #: ext- [phone] 03/04/2020 11:58 ------ Patient: JEREMI MALLOY Sex: F : 1955 Age: 64y CBC W/AUTOMATED DIFF COMPLETE BLOOD COUNT WBC 4.4 10/uL (4.2 - 11.0) RBC 3.27 L 10/uL (4.20 - 5.40) HEMOGLOBIN 11.1 L g/dL (12.0 - 16.0) HEMATOCRIT 32.0 L % (37.0 - 47.0) MCV 97.9 fL (81.0 - 101) MCH 33.9 pg (27.0 - 34.0) MCHC 34.7 g/dL (31.0 - 36.0) RDW 18.0 H % (11.5 - 14.5) PLATELETS 111 L 10/uL (150 - 450) MPV 10.5 H fL (7.4 - 10.4) NEUT 74.3 % (37.0 - 80.0) LYMPH 12.6 L % (25.0 - 40.0) MONO 11.0 H % (3.0 - 8.0) EOS 0.7 % (0.0 - 7.0) BASO 0.7 % (0.0 - 2.5) %IG 0.7 H % (0.0 - 0.0) %NRBC 0.0 % (0.0 - 0.0) #NEUT 3.26 10/uL (2.00 - 6.90) #LYMPH 0.55 L 10/uL (0.60 - 3.40) #MONO 0.48 10/uL (0.00 - 0.90) #EOS 0.03 10/uL (0.00 - 0.70) #BASO 0.03 10/uL (0.00 - 0.20) #IG 0.03 10/uL (0.00 - 0.10) #NRBC 0.00 10/uL (0.00 - 0.00) MANUAL DIFF NOT INDICATED RBC MORPH NOT INDICATEDCMP: (BERNADETTE: 03/04/2020 12:41) ( MsgRcvd 03/04/2020 13:17) Final results Test Result Flag Units (Reference) COMPREHENSIVE METABOLIC PANEL COMPREHENSIVE METABOLIC PANEL SODIUM 142 mEq/L (134 - 153) POTASSIUM 3.0 L mEq/L (3.6 - 5.0) CHLORIDE 100 mEq/L (98 - 107) CO2 31 H MEQ/L (22 - 30) GLUCOSE 125 H MG/DL (65 - 110) BUN 20 MG/DL (7 - 21) CREATININE 0.9 MG/DL (0.7 - 1.5) BUN/CREAT 22 (8 - 27) TOTAL PROTEIN 6.3 G/DL (6.3 - 8.2) ALBUMIN 4.0 G/DL (3.9 - 5.0) GLOBULIN 2.3 L GM/DL (2.4 - 3.2) A/G RATIO 1.7 (0.8 - 2.0) CALCIUM 9.1 MG/DL (8.4 - 10.2) TOTAL BILI 0.8 MG/DL (0.2 - 1.3) ALKALINE PHOS 87 U/L (38 - 126) SGOT/AST 9 U/L (5 - 40) SGPT/ALT 10 U/L (7 - 56) ANION GAP 11.0 mmol/L (8.0 - 16.0) AGE 65 yrs NON-AA GFR >60 mL/min AFR AMER GFR >60 Male GFR Interprentation 20-49 yrs >60 mL/min Luknys82-96 yrs >56 mL/min Normal 60-69 yrs >49 mL/min Normal 70-79yrs> 42 mL/min Normal 80 and above >35 mL/min Normal Female GFRInterpretation 20-39 yrs >60 mL/min Normal 40-49 yrs >58 mL/minNormal 50-59 yrs >51 mL/min Normal 60-69 yrs >45 mL/min Normal 5 Clinical Report - Physicians/Mid Levels [facility] Emergency Department [address] [place] [address] Phone #: ext- [phone] 03/04/2020 11:58 Patient: JEREMI MALLOY MRN: [id number] Sex: F : 1955 Age: 64y 70-79 yrs >39 mL/min Normal 80 and above > 32 mL/min Normal Lactic Acid: (BERNADETTE: 03/04/2020 12:41) ( MsgRcvd 03/04/2020 13:05) Final results Test Result Flag Units (Reference) LACTIC ACID 3.4 H MMOL/L (0.2 - 2.2) LDH: (BERNADETTE: 03/04/2020 12:41) ( [facility] 03/04/[facility] 13:17) Final results Test Result Flag Units (Reference) LDH 304 H U/L (135 - 214) Lipase: (BERNADETTE: 03/04/2020 12:41) ( MsgRcvd 03/04/2020 13:17) Final results Test Result Flag Units (Reference) LIPASE 13 U/L (13 - 60) Abdomen Multiview: (BERNADETTE: 03/04/2020 12:23) ( [facility] 03/04/2020 12:55) Canceled Reason(s): Abdominal Pain Reason(s): Abdominal Pain TRANSPORTATION: S IV? O2? Oxygen?(No) Room: ED.PROGRESS AND PROCEDURESCourse of Care: Pt is a 64 year old female who has multiple myeloma who had an [facility]trans[facility]. She has done well. pt states that since monday shehas had diarrhea. she states she did recently stop taking antibiotics. she complains mostly of fatigue.she did state that when she takes her pills, they go straight through her. she is clinically orthostatic. labsshow she is dehydrated, however, she is not significantly anemic and her electrolytes are not significantlyabnormal. pt given ivf and magnesium iv. pt is feeling slightly better but still needs further hydration.stool cultures obtained. I called and spoke to her doctor at [facility]. She agreed with care plan.I called and spoke to Kavya. she agreed to admit. pt comfortable with the plan to admit here [facility]. Patient/family counseled. Disposition: Admitted to the Acute Inpatient Unit, Monitored. Condition: good and stable.CLINICAL IMPRESSION Diarrhea. Dehydration. Hypomagnesemia. 6 Clinical Report - Physicians/Mid Levels [facility] Emergency Department [address] [place] [address] Phone #: ext- [phone] 03/04/2020 11:58 Patient: JEREMI MALLOY Sex: F : 1955 Age: 64y(Electronically signed by Natasha Montero MD 03/04/2020 19:40) Name Value Range Interpretation Code Description Data Miladys rce(s) Supporting Document(s) ID Date Data Source [id number] 03/04/2020 12:24:00 PM EST [facility] Addenda for JEREMI MALLOY VisitID: [id number] Date: 17:32MED REC REQUEST FAXED TO [facility] WITH PATIENTS MED LISTS ANDT-SYSTEMS OVERVIEW @ [id number](Electronically signed by Moreno Pineda - 03/04/2020 17:32)03/04/2020 17:54OVERVIEW FAXED TO [facility] AT 1549. LONI MALDONADO MADE AWARE(Electronically signed by Moreno Shrestha - 03/04/2020 17:54) Name Value Range Interpretation Code Description Data Miladys rce(s) Supporting Document(s) ID Date Data Source [id number] 03/04/2020 04:52:00 PM EST [facility] Name Value Range Interpretation Code Description Data Miladys rce(s) Supporting Document(s) COVID-19 [facility] This lab was ordered by [facility] and reported by [facility]. ID Date Data Source [id number] 03/04/2020 04:52:00 PM EST [facility] Name Value Range Interpretation Code Description Data Miladys rce(s) Supporting Document(s) COVID-19 [facility] This lab was [facility] by [facility] and reported by [facility]. ID Date Data Source [id number] 03/04/2020 05:26:00 PM EST [facility] Name Value Range Interpretation Code Description Data Miladys rce(s) Supporting Document(s) COVID-19 NOT DETECTED [facility] COVID-19 REENTER NOT DETECTED [facility] { PROCEDURAL CONTROL VALID KIT LOT # _[id number] 03/04/20.TAD. KIT EXP DATE _06.18.20 03/04/20.TAD. NORMAL RANGE IS NOT DETECTEDNEGATIVE RESULTS SHOULD BE TREATED PREUMPTIVE AND, IF INCONSISTENT WITHCLINICAL SIGNS AND SYMPTOMS OR NECESSARY FOR PATIENT MANAGEMENT, SHOULD BETESTED WITH DIFFERENT AUTHORIZED OR CLEARED MOLECULAR TESTS. NEGATIVE RESULTSDO NOT PRECLUDE SARS-CoV-2 INFECTION AND SHOULD NOT BE USED THE SOLE BASISFOR PATIENT MANAGEMENT DECISIONS. ID Date Data Source [id number] 03/04/2020 04:33:00 PM [facility] Name Value Range Interpretation Code Description Data Miladys rce(s) Supporting Document(s) Magnesium [Mass/volume] in Serum or Plasma 1.3 MG/DL 1.7 - 2.2 L [facility] ID Date Data Source [id number] 03/04/2020 01:54:00 PM [facility] Name Value Range Interpretation Code Description Data Miladys rce(s) Supporting Document(s) Phosphate [Mass/volume] in Serum or Plasma 4.0 MG/DL 2.5 - 4.5 [facility] ID Date Data Source [id number] 03/04/2020 01:20:00 PM [facility] Name Value Range Interpretation Code Description Data Miladys rce(s) Supporting Document(s) CBC W/AUTOMATED DIFF [facility] COMPLETE BLOOD COUNT Leukocytes [#/volume] in Blood by Automated count 4.4 10^3/uL 4.2 - 1 1.0 [facility] Erythrocytes [#/volume] in Blood by Automated count 3.27 10^6/uL 4. 20 - 5.40 L [facility] Hemoglobin [Mass/volume] in Blood 11.1 g/dL 12.0 - 16.0 L [facility] Hematocrit [Volume Fraction] of Blood by Automated count 32.0 % 3 7.0 - 47.0 L [facility] Erythrocyte mean corpuscular volume [Entitic volume] by Auto mated count 97.9 fL 81.0 - 101 [facility] Erythrocyte mean corpuscular hemoglobin [Entitic mass] by Automated count 33.9 pg 27.0 - 34.0 [facility] Erythrocyte mean corpuscular hemoglobin concentration [Mass/volume] by Automated count 34.7 g/dL 31.0 - 36.0 [facility] Erythrocyte distribution width [Ratio] by Automated count 18.0 % 11.5 - 14.5 H [facility] Platelets [#/volume] in Blood by Automated count 111 10^3/uL 150 - 45 0 L [facility] Platelet mean volume [Entitic volume] in Blood by Automated count 10.5 fL 7.4 - 10.4 H [facility] Neutrophils/100 leukocytes in Blood by Automated count 74.3 % 37. 0 - 80.0 [facility] Lymphocytes/100 leukocytes in Blood by Manual count 12.6 % 25.0 - 40.0 L [facility] Monocytes/100 leukocytes in Blood by Automated count 11.0 % 3.0 - 8.0 H [facility] Eosinophils/100 leukocytes in Blood by Automated count 0.7 % 0.0 - 7.0 [facility] Basophils/100 leukocytes in Blood by Automated count 0.7 % 0.0 - 2.5 [facility] %IG 0.7 % 0.0 - 0.0 H [facility] %NRBC 0.0 % 0.0 - 0.0 [facility] al Neutrophils [#/volume] in Blood by Automated count 3.26 10^3/uL 2.00 - 6.90 [facility] Lymphocytes [#/volume] in Blood by Automated count 0.55 10^3/uL 0.60 - 3.40 L [facility] Monocytes [#/volume] in Blood by Automated count 0.48 10^3/uL 0.00 - 0.90 [facility] Eosinophils [#/volume] in Blood by Automated count 0.03 10^3/uL 0.00 - 0.70 [facility] Basophils [#/volume] in Blood by Automated count 0.03 10^3/uL 0.00 - 0.20 [facility] #IG 0.03 10^3/uL 0.00 - 0.10 [facility]ital #NRBC 0.00 10^3/uL 0.00 - 0.00 [facility] MANUAL DIFF NOT INDICATED [facility] RBC MORPH NOT INDICATED [facility] ID Date Data Source [id number] 03/04/2020 01:17:00 PM [facility] Name Value Range Interpretation Code Description Data Miladys rce(s) Supporting Document(s) Lipase [Enzymatic activity/volume] in Serum or Plasma 13 U/L 13 - 60 [facility] ID Date Data Source [id number] 03/04/2020 01:17:00 PM EST [facility] Name Value Range Interpretation Code Description Data Miladys rce(s) Supporting Document(s) Lactate dehydrogenase [Enzymatic activity/volume] in Serum o r Plasma 304 U/L 135 - 214 H [facility] ID Date Data Source [id number] 03/04/2020 01:17:00 PM [facility] Name Value Range Interpretation Code Description Data Miladys rce(s) Supporting Document(s) COMPREHENSIVE METABOLIC PANEL [facility] COMPREHENSIVE METABOLIC PANEL Sodium [Moles/volume] in Serum or Plasma 142 mEq/L 134 - 153 [facility] Potassium [Moles/volume] in Serum or Plasma 3.0 mEq/L 3.6 - 5.0 L [facility] Chloride [Moles/volume] in Serum or Plasma 100 mEq/L 98 - 107 [facility] Carbon dioxide, total [Moles/volume] in Serum or Plasma 31 MEQ/L 22 - 30 H [facility] Glucose [Mass/volume] in Serum or Plasma 125 MG/DL 65 - 110 H [facility] BUN 20 MG/DL 7 - 21 [facility] Creatinine [Mass/volume] in Serum or Plasma 0.9 MG/DL 0.7 - 1.5 [facility] BUN/CREAT 22 8 - 27 [facility] al Protein [Mass/volume] in Serum or Plasma 6.3 G/DL 6.3 - 8.2 [facility] Albumin [Mass/volume] in Serum or Plasma 4.0 G/DL 3.9 - 5.0 [facility] Globulin [Mass/volume] in Serum by calculation 2.3 GM/DL 2.4 - 3.2 L [facility] A/G RATIO 1.7 0.8 - 2.0 [facility] Calcium [Mass/volume] in Serum or Plasma 9.1 MG/DL 8.4 - 10.2 [facility] Bilirubin.total [Mass/volume] in Serum or Plasma 0.8 MG/DL 0.2 - 1.3 [facility] Alkaline phosphatase [Enzymatic activity/volume] in Serum or Plasma 87 U/L 38 - 126 [facility] Aspartate aminotransferase [Enzymatic activity/volume] in Se rum or Plasma 9 U/L 5 - 40 [facility] Alanine aminotransferase [Enzymatic activity/volume] in Seru m or Plasma 10 U/L 7 - 56 [facility] Anion gap 3 in Serum or Plasma 11.0 mmol/L 8.0 - 16.0 [facility] AGE 64 yrs [facility] NON-[facility] GFR >60 mL/min [facility] AFR AMER GFR >60 [facility] Male GFR In terprentation 20-49 yrs >60 mL/min Normal 50-59 yrs >56 mL/min Normal 60-69 yrs >49 mL/min Normal 70-79yrs >42 mL/min Normal 80 and above >35 mL/min Normal Female GFR Interpretation 20-39 yrs >60 mL/min Normal 40-49 yrs >58 mL/min Normal 50-59 yrs >51 mL/min Normal 60-69 yrs >45 mL/min Normal 70-79 yrs >39 mL/min Normal 80 and above >32 mL/min Normal ID Date Data Source [id number] 03/04/2020 01:04:00 PM EST [facility] Name Value Range Interpretation Code Description Data Miladys rce(s) Supporting Document(s) Lactate [Moles/volume] in Serum or Plasma 3.4 MMOL/L 0.2 - 2.2 H [facility] ID Date Data Source [id number] 01/29/2020 12:00:00 AM EST [facility] Name Value Range Interpretation Code Description Data Miladys rce(s) Supporting Document(s) SARS coronavirus 2 RNA panel N [facility] This lab was ordered by [facility] C19 TEST [facility] and reported by [facility]. ID Date Data Source URINE CULTURE 12/23/2019 08:07:27 AM EDT eCW1 ([facility]) Name Value Range Interpretation Code Description Data Miladys rce(s) Supporting Document(s) URINE CULTURE eCW1 ([facility]) ID Date Data Source UA URINALYSIS 12/23/2019 08:07:21 AM EDT eCW1 ([facility]) Name Value Range Interpretation Code Description Data Miladys rce(s) Supporting Document(s) UA URINALYSIS eCW1 ([facility]) ID Date Data Source [id number] 12/23/2019 08:07:15 AM EDT eCW1 ([facility]) Name Value Range Interpretation Code Description Data Miladys rce(s) Supporting Document(s) Hemoglobin A1c/Hemoglobin.total in Blood 6.1 HEMOGLOBIN A1c eCW1 ([facility]) ID Date Data Source [id number] 10/31/2019 05:05:00 PM EDT [facility] Name Value Range Interpretation Code Description Data Miladys rce(s) Supporting Document(s) Free [address] Chains,S 13.4 mg/L 3.3-19.4 [facility] Free [place] Lt Chains,S 2.0 mg/L 5.7-26.3 Below low normal [facility] [address]/Lambda Ratio,S 6.70 0.26-1.65 Above high normal [facility] ID Date Data Source [id number] 10/14/2019 12:00:00 AM EDT [facility] Name Value Range Interpretation Code Description Data Miladys rce(s) Supporting Document(s) SARS coronavirus 2 RNA panel N [facility] This lab was ordered by [facility] and reported by [facility]. ID Date Data Source [id number] 10/04/2019 02:21:00 PM EDT [facility] ([facility], ) Name Value Range Interpretation Code Description Data Miladys rce(s) Supporting Document(s) Surgical pathology study Laboratory test result [facility] ([facility], ) FINAL DIAGNOSIS A - Gastric biopsy: Gastric mucosa with regenerative changes, no acute inflammation or H. Pylori are identified. B - Colon polyps, polypectomy: Small fragments of colonic mucosa and abundant fecal matter. No adenoma or dysplasia is noted. 11/12/2019 - 0844 CLINICAL DIAGNOSIS Abdominal pain and colon polyps. 11/05/2019 - 1315 GROSS DIAGNOSIS A - Received in formalin labelled gastric biopsy, are 3 fragments, 0.3-0.4cm. all in one. B - Received in formalin labelled snare colon polyps, is a 1 x1 x0.3 cm aggregate of tissue fragments and fecal matter, all in one. YZ 11/12/2019 - 0844 Signed Meliza Landrum M.D. 11/12/2019 0847 ID Date Data Source [id number] 09/29/2019 09:20:00 AM EDT [facility] Name Value Range Interpretation Code Description Data Miladys rce(s) Supporting Document(s) SARS coronavirus 2 RNA [facility] This lab was ordered by [facility] and reported by [facility]. ID Date Data Source [id number] 09/21/2019 11:15:00 AM EDT [facility] Name Value Range Interpretation Code Description Data Miladys rce(s) Supporting Document(s) SARS coronavirus 2 RNA [facility] This lab was ordered by [facility] and reported by [facility]. ID Date Data Source [id number] 07/18/2019 09:44:52 AM EDT [facility] Name Value Range Interpretation Code Description Data Miladys rce(s) Supporting Document(s) Progress Note [facility] NXJSJc9cFcBJRuQa53/FGHlnOYAsc1WeMGdpYRl6YRxpPGSiA5NhOBS1jX8tHZK4GZhKTiHlOxPuPGB3 lbm [file] svyGBvPbf+yo+sD80fg79Vdkjs9wXxRf44Rzllw/6B2gnc52vLKxXeDDDK+boxing promoter/2SwQtbm+BZJij5yFi [file] ID Date Data Source Immature Platelet Fraction 05/24/2019 12:00:00 AM EDT eCW1 ( [facility]) Name Value Range Interpretation Code Description Data Miladys rce(s) Supporting Document(s) 11.9 0.0-9.59 IMMATURE PLATELET FRACTIO N % eCW1 ([facility]) ID Date Data Source Comprehensive Metabolic Profile (CMP) 05/24/2019 12:00:00 AM EDT eCW1 ([facility]) Name Value Range Interpretation Code Description Data Miladys rce(s) Supporting Document(s) 15 7-18 BLOOD UREA NITROGEN eCW1 ([facility]) 68 70-100 GLUCOSE, FASTING eCW1 ([facility]) 0.96 0.55-1.30 CREATININE FOR GFR eCW1 ([facility]) 3.7 3.5-5.1 POTASSIUM SERUM eCW1 ([facility] > 60.0 >45 GLOMERULAR FILTRATION RATE eCW 1 ([facility]) 142 136-145 SODIUM LEVEL eCW1 ([facility]) 8.7 8.8-10.2 CALCIUM LEVEL eCW1 ([facility]) 101 98-107 CHLORIDE LEVEL eCW1 ([facility]) 35 21-32 CARBON DIOXIDE LEVEL eCW1 ([facility]) 8 7-37 AST/SGOT eCW1 ([facility]) 8.6 6.4-8.2 TOTAL PROTEIN eCW1 ([facility]) 0.5 0.2-1.0 BILIRUBIN,TOTAL eCW1 [facility] 33 12-78 ALT/SGPT eCW1 ([facility]) 87 45-117 ALKALINE PHOSPHATASE eCW1 ([facility]) 3.4 3.2-5.2 ALBUMIN eCW1 ([facility]) 0.65 1.00-1.93 ALBUMIN/GLOBULIN RATIO eCW1 ([facility]) ID Date Data Source CBC with Differential 05/24/2019 12:00:00 AM EDT eCW1 ([facility]) Name Value Range Interpretation Code Description Data Miladys rce(s) Supporting Document(s) 5.5 4.0-10.0 WHITE BLOOD COUNT eCW1 ([facility]) 11.6 12.0-15.5 HEMOGLOBIN eCW1 ([facility]) 35.3 36.0-47.0 HEMATOCRIT eCW1 ([facility]) 3.47 4.00-5.40 RED BLOOD COUNT eCW1 ([facility] 33.4 27.0-33.0 MEAN CORPUSCULAR HEMOGLOB IN eCW1 ([facility]) 101.7 80.0-96.0 MEAN CORPUSCULAR VOLUME e CW1 ([facility]) 15.6 11.5-14.5 RED CELL DISTRIBUTION WID TH eCW1 ([facility]) 32.9 32.0-36.5 MEAN CORPUSCULAR HGB CONC eCW1 ([facility]) 91 150-450 PLATELET COUNT, AUTOMATED eCW1 ([facility]) 71.0 36.0-66.0 NEUTROPHILS % eCW1 ([facility]) 21.0 24.0-44.0 LYMPH % eCW1 ([facility]) 5.7 0.0-5.0 MONO % eCW1 ([facility]) 1.3 0.0-3.0 EOS % eCW1 ([facility]) 0.5 0.0-1.0 BASO % eCW1 ([facility]) 3.9 1.5-8.5 NEUTROPHILS # eCW1 ([facility]) 1.2 1.5-5.0 LYMPH # eCW1 ([facility]) 0.3 0.0-0.8 MONO # eCW1 ([facility]) 0.1 0.0-0.5 EOS # eCW1 ([facility]) 0.0 0.0-0.2 BASO # eCW1 ([facility]) ID Date Data Source [id number] 04/24/2019 05:53:30 PM [facility] Name Value Range Interpretation Code Description Data Miladys rce(s) Supporting Document(s) Progress Note [facility] QPHDHu1mJhXAAzVh08/CPWhxMLBdm2MgTHodASp6YFosPBHdE6McQVT1rG3eWDV8PZxXFlVxKbVwEsUt [facility] TlXahRBgUwBRKsXlePToKxYFbzDsbxfKDvAV4JnAG1BKQpI51vRBYjXXDmR5UrMZL8NwR+An9JNGHkxE RjPU9QWpuS6E5ju2pKIC9g3S7dHXAOp7vnsyq4azUIlKvUpZbpkgVs+8HyvUSCjlkZgE9956qyFnibrU 5yqBSbQA9sRE6Tsnij+8yQQhT/fhPbgWdZlpj/t/gz rKV5rHf//ZSC8pqXtX1OZ7lB1VQlxMBLXZN57lnuR/QzE1BYSWKBJ94+wsOOtI0y7udLC9r7gwZ8wIk7 N96Ze39xLqSX5qvuelXd4FD88+gvr8W6V+RuAz39skwvquETwwSkCbFa5GcjF3JLvAAuwafKCaS5a6Yj 85YtAqr07kLsnzsIbahuroH8giPtdJkLi3k7wKclt8 KvoNESDsrp7RBjmfQq3Vc9LkCj5IzPD0ZvzGWJEJFahe0zntmlee+O0l7L2KUCHNMSvRmX+zRudY51Rt d64M+KX8JkEVM8Hd8yXfTcfhGkapJ5b77RDaenpMoxC2cqBUIwfHgr8lfBVqjELxhIorGy++fvzDFTgi 7DhJclu7BDmqW7pn9u68dMp+cFKyq91+ulycSgeZbg S1tX1z0d5Xz0yMkXOHuMnC06eiR0V7a43JU6UEqLsxAokDO/0+E/k7QTWrLvSdotXbB6xyzHzx1umvFf AfB8d1B/QexddIVvHIMf+AoO4IKJoBpukAedpyzsIbV2NkBwMRac2k5OJc7XfNAQbb1ESYXQnXYtCvMm cSVqDMYjg+OtVV2uhEI9k63usOkHnhaxWutkF4u/ bFErfrMe40kLg4ZE7J5n+NUKyXTzhWkM/PX7JUuyKTTzCb4aJnElTZbp9uj4RN9fMtTEyuG0P9ZKSD7T 13QQ0zCh+quCIXlM7Z1lbhulC/nbGAwgVhuHsZdBzFQ6xw6MlP9GiLlqNljjqckazqe9f02K9YT0eMLa Pg6pVmAP4OEypNLByPPQlqYKBWd0R66hP/AiV950Hz n9v3yPh2UvvjsWENEujW+wd18A/FLFekmscsvq2U6yF0rQwfkvYFMt0M9M680SuUA+uuDBgSMaYX7/Jh rBAzyLQNT6t5ULrF7IODHP+rxW2FWWxpgZbfdNN3lqFTxECzrsyHahPEiYQ+XeEqEWYCntSD9Jj022WP vZMAIv6uXmzLlSX+LvgCZQjAhogWnfN4tiGvhK1M6U lGKprguLb69WqGAtqGmBaBZYasHSWQdSbcVtTEUJUmgAtsHwnM4gt9z0KGR10WCEPH5hDtOP45iUWFTq A92vf2vQuuznIxsbyt6udks91S81URwIzTMyfoZDWC7VNdZlNnY2IDfTe9qPo+Hf1NoRJQvGQYdEskRA zcJiV4w01z9mT0687A43F72ehp5XKUWy0Ug5SkifOw [file] MDAwMDAxNyAwMDAwMCBuDQowMDAwMDcyODAzIDAwMD VtMP2RWvSlFRJgZeI2UroaYEJaFIJwjg3OXFIkHHKvUAS2EtEeRWInWPDtYPclBJVuPUTtXxM3BQAaIA NtFA2LVyWdXDHhQRO0OjBwKUDnMOKhcc9EFYIyZDPmTjL1YDMoXRZwIDIiIFnyYJVoTET3DkY7GTEtAP AfVX6WNvHkRKNcUNZkBdUtMBGcNECmur2RTNIeHTLo JZP6BGTeZCEwISVhAEogKCOoNYL1ZPAsWQVaGJAjNZ1ZJiHsROJsITU2DHouEWXuDDFele8IUAElJWBt TkR9CELyBLDrFVCiJStpASUoGCH7RBkrIFTyBIEnGL3UPrMcOYJdNXj3IZjdBALyKVAtbs4YWETnXFUi YEG0NuXxMYPrAJPuPQdmFIBhSZEeFLM9PUJvHSZtRV 3ARsGkZRUtBzB6BtSwPYMqTYFhie7RKHGlANSgJOzjMHYmWWMfQXHcEUzySDVnPOC2SKU7KXYdQPKfZY 4ULyBjKUIaEue1JGhkHSZkIRGjjl2UPHXlLFLpUjr0ZzQfZGOfFNHaAStxBCCfLYXcDbQdWZUoWQZhXZ 2PYbPvTKDiXyM4DxjkZGDrAVIsed1JQUOyOKKrEuwq CxTiZNLjGVKqDOkyVJGvLYG5DNMqJSZeLBHxWI1UUxOmOWVcNnW0BokgXAPiDXLtsw1TRDFjWGLeCni1 HOQfYMAgOHQeOBdmQYVoRCL1HmClLBBwSPCeRC2IVqFmTKUhWbd8KxcpOMLgPUGfty8ZNAYmPIH9FMn1 GSElUAKcEIDfYAhjYZLkRLHuKVi6GWJyMIFxXC2FWm UbRQVySHIfBIohUQQpPQGxgj5YOUFhNBZ8JUUfCZPxEQDhUOQbXPivIVPwYIM2MZh5IPDcBTVhVP9KTv BkCMGdRPcwOAHrBFSiZCQozi8ZKGYdJCM9DTTlOtKgCGAyUNPpSVifPALmITQ7RbLhAEHyYAWrRJ6YWx NqNHWzNYB0OlJwRIFsAPExui8LYIPtEVL4Jwg5LfNw TFKuCEIvXLmsIZEnNVH9XUkyZYQrUGZpCM0AEjCnDCErACC9ZSreCDRuFQWkkw5NOJWjEMF9KzEzMuIj QPCtVOByKLwfMBQyQGN9JMBnRFPxCHNcWF3XWgHkFEZuQFinSWZvXOSiLOPcff1TAJQwRGA2IpG9GSPz ZWJhWEGaLIcbZRVaQXN8CpOjOPJrFFPdHD7AThYfQT NvXRp1ZoRgEUFtQCYcrg8ZUCJcUVT6WPkaPrAuPYTaFDQmHHguYNAsLZD9TZFpLVBmNLWyUZ1BZrHdQN PgLoI3KZNtLHXpWMCvxc4SYRQySLQ9UTb8CxSkNJFeKXHgYSrfLUTbADklNBo8GVQfCQTqWC0UMdXdMZ UkHuWzVcCpVQDxZPLueu6RFFRrQAY8BAE5IRNoSWNs GZPvSJvoIRBrVGgdPGU1MULuCJXlOW0WZyEqQEKsKxA1PMBzEYByDGLezx8OHTYeVIB9Vcj7NJJgNDRi IBLsOCqyVYEzWQomXDc9EBKyOIVkGB3QXkHlNDBcSiD1UdmvHYGkUFImug6DTTRpXHE1LCwmGBSaVMHx AGXiRHbjEWNqTJy0BIp9XPKsWHZzEX4RDsXgUQkiTI ZHIge0DNnmF1h5PFP2Wl5VX1Gqf3FwTfCfAFTHXMdiUD6riuSyBEFmAm4HO3jCXbzyPTMfSxZrV3KhUD KsNxjjRoVlZqxtINImUHMkCBMdQB0mZML4XWWmHbLeQJTqEHQ3EZGjXCOhQQD7J3EgSoRqUOM9AkIsUH 3LBv5XGbA4GIT3iDRvTs5KFqLvHijXDmKnSF1STSy= ID Date Data Source [id number] 03/21/2019 03:21:01 PM EST [facility] Name Value Range Interpretation Code Description Data Miladys rce(s) Supporting Document(s) Flow cytometry study [facility] ID Date Data Source [id number] 03/22/2019 05:49:00 PM EST [facility] Hematopathology Report See Addendum Rosy wName: JEREMI MALLOY MMRN: [id number] Number: [id number] Date: 03/20/2019 00:00Received Date: 03/21/2019 13:27Physician(s): MELIZA LANDRUM MD, YILIN MDCopy To:[facility]) ReceivedA: Bone Marrow, Flow Cytometry, received 1 green top bone marrow, 1aspirate smear and 1 pb smear (1 EDTA bm to molecular)Clinical HistoryLytic lesions, seronegative rheumatoid arthritis, recently treated forlatent TB. DiagnosisFlow cytometry of bone marrow: Plasma cell neoplasm (7% plasma cells).Correlation with full bone marrow biopsy is recommended. FISH formyeloma-associated abnormalities is pending.Good Bahena M.D.;Resident PathologistElectronically Signed By RAFY BANKS M.D. Attending Pathologist 03/22/201917:49:58The attending pathologist named above attests that he/she has personallyreviewed the relevant preparation(s) for the specimen(s) and rendered thefinal diagnosis. Addendum 03/28/2019 ADDENDUM:Cytogenetic analysis of this specimen (see [id number]) yielded the followingresults:Karyotype: Requested, but insufficient metaphase cells were available.FISH (performed on a plasma cell-enriched cell population): Positive fortrisomy 5 (90% of nuclei), trisomy 9 (43% of nuclei), tetrasomy 9 (38% ofnuclei), deletion/monosomy 14q (IGH; 91% of nuclei), partial and/or fulldeletion of 17p (42% of nuclei), and monosomy 17 (10% of nuclei). Negative for gains or losses of chromosomes 1 and 7, deletion of 13q14.2,and for an IGH rearrangement.Hyperdiploidy with deletion/monosomy of 14q has been reported in plasmacell neoplasms. 17p deletion (hemizygosity of TP53) is associated withdisease progression. Addendum Electronically Signed By: Dequan Falcon M.D., Ph.D. 04/04/2019 15:14 ProceduresFlow Cytometry Date Ordered:03/21/2019 Status: Signed Out03/22/2019 InterpretationPERIPHERAL BLOOD: CBC performed at [facility] on 03/20/2019 WBC 5.8 K/uLRBC *3.82 M/uLHgb 12.5 g/dLHct 37.8 %MCV *99.0 fLMCH 32.7 pgMCHC 33.1 g/dLRDW 13.8 %Platelets *133 K/ulDifferential Count (100 cells): 2 % N. Band Forms55 % Efpkwwdaxdv35 % Kxyhsskfxfj89 % Large Granular Lymphocytes 4 % Monocytes-------100 % A peripheral blood film is reviewed. Rouleaux formation is increased.BONE MARROW ASPIRATE:Differential Count (100 cells):40 % Erythroid Precursors 1 % Blasts 3 % Promyelocytes 5 % N. Eenlwaiifu05 % N. Metamyelocytes and Band Forms11 % Neutrophils 3 % Qwgodkarjiv14 % Lymphocytes 1 % Monocytes 7 % Plasma Cells--------100 % Morphology: A single hypercellular particle is seen. No dysplasia ispresent. Megakaryocytes are normal. Some plasma cells appear immature withsmall nucleoli. Lymphoid Panel: [place] [id number] following markers were assayed: CD45 (gate), CD2, CD3, CD4, CD5, CD7,CD8, CD10, CD19, CD20, CD33, CD34, CD38, CD56, CD57, CD64, CD117, CD123,HLA-DR, [place], and Lambda.# events: [id number]: 92%Flow Cytometry Differential (CD45/SSC)Lymphocyte [place]: 51%CD45 dim [place]: 1%Monocyte [place]: 2%Granulocyte Gat e: 35%Nucleated/Erythroid [place]: 3%The lymphocyte gate showsB-cells (CD19): 4%T- cells (CD3): 84%NK-cells (CD3-/CD56+): 9%[address]/Lambda Ratio: 1.4CD4/CD8 Ratio: 2.7Results: (expressed as % of lymphocyte gate)T-cell Markers: CD2 = 90, CD3 = 84, CD3/CD4 = 62, CD3/CD8 = 26, CD5 = 84,CD7 = 83, CD3/57 = 21B-cell markers: [address] [address] = 2, Lambda = 1, CD19 = 4, CD20 = 4, CD19/10 = 0,CD19/CD5 = 0, CD38/CD20 = 3Light chain as % of B-Cells: CD19/[address] = 50, CD19/Lambda = 38,CD19/CD5/[address] [address] = 1, CD19/CD5/Lambda = 0,CD19/CD10/[place] [address] = 3, CD19/CD10/Lambda = 3NK cell Markers: CD56 = 20, CD57 = 24Other Markers: CD10 = 0, CD38 = 53Results: (expressed as % of CD45 dim gate)T-cell Markers: CD2 = 20, CD3 = 14, CD3/CD4 = 11, CD3/CD8 = 5, CD5 = 27,CD7 = 21, CD3/57 = 2B-cell markers: [place] [address] = 6, Lambda = 3, CD19 = 3, CD20 = 3, CD19/10 = 2,CD19/CD5 = 0, CD38/CD20 = 3Light chain as % of B-Cells: CD19/[address] = 25, CD19/Lambda = 8,CD19/CD10/[place] [address] = 0, CD19/CD10/Lambda = 0NK cell Markers: CD56 = 9, CD57 = 5Basophil Markers: CD123 (HLA-DR-) = 4Other Markers: CD10 = 12, CD38 = 67, CD33 = 24, CD34 = 23, CD64 = 3, CD117= 17, CD123 = 9, HLA-DR = 40[facility] [id number] following markers were assayed: CD45 (cell gate), CD138 (plasma cellgate), CD19, CD20, CD38, CD56, cytoplasmic [address], and cytoplasmic Lambda.(Please note, that Cytoplasmic [address] and Cytoplasmic Lambda are used todetect plasma cells, while surface [address] and Lambda are for lymphocytes).# events: [id number] NOTE: Routinely a minimum of 500,000 events are collectedin each panel tube. Due to sample cellularity and/or processing thisnumber was not ac hievable for this sample.Viability: 90%Flow Cytometry Differential:Lymphocyte [place]: 34%CD45 dim [place]: 0%Monocyte [place]: 4%Granulocyte [place]: 55%NRBC [place]: 4%CD138 Plasma Cell [place]: 0.5%Results: (expressed as % of lymphocyte gate)B- Cells (CD19): 4%CD19 = 4, CD20 = 4Light chain as % of B-Cells: Cytoplasmic [address]/CD20 = 48, CytoplasmicLambda/CD20 = 33Results: (expressed as % of total CD138+ plasma cell gate)CD38 = 99, CD56 = 98, CD38/56 = 98, CD19 = 3, CD20 = 73Cytoplasmic [address]/CD138 = 90, Cytoplasmic Lambda/CD138 = 0 Results- CommentsLymphocytes consist predominately of T cells with normal expression of panT-cell markers and a normal CD4/CD8 ratio, normal proportions of NK andcytotoxic T cells, and polyclonal B cells. CD34+ blasts comprise fewer than 1% of cells studied. Blasts, monocytesand granulocytes show no definitive immunophenotypic aberrancies. Plasma cells associated markers show kappa restricted plasma cells thatexpress aberrant CD56, also positive for CD138, CD38, partial CD20 and donot express CD19.Procedure Electronically Signed By:RAFY BANKS M.D.03/22/2019 This report may include one or more immunohistochemical stain/fluorochromeconjugated monoclonal antibody results that use analyte specific reagents.All positive and negative controls have been reviewed by the attendingpathologist and are satisfactory. The tests were developed and theirperformance characteristics determined by [facility] Pathology department.They have not been cleared or approved by the US Food and DrugAdministration. The FDA has determined that such clearance or approval isnot necessary. Name Value Range Interpretation Code Description Data Miladys rce(s) Supporting Document(s) ID Date Data Source [id number] 03/27/2019 03:24:00 PM [facility] Cytogenetics ReportName: JEREMI MALLOY MM RN: [id number] Number: [id number] Date: 03/20/2019 00:00Received Date: 03/21/2019 13:59Physician(s): MELIZA LANDRUM MD, YILIN MDSpecimen(s) ReceivedA: Bone Marrow (Karyotype Analysis)Clinical HistoryLytic lesions, seronegative rheumatoid arthritis, recently treated forlatent TBTEST REQUESTED/PERFORMED: Karyotype Analysis and Fluorescence in situhybridization - FISH DiagnosisFISH RESULTS:Multuple Myeloma panel:nuc jeannine(CDKN2C,CKS1B)x2[97/100],(5p15.31,EGR1)x3[90/100],(G69D703,13q34)x2[95/100],( IgHx1)[91/100],(TP53x1,G06Y7y0)[25/100],(TP 53x1,QZ42ujet8,O44K9c9)[17/],(TP53,D17Z1)x1[100]CEP 7/I8P737 (7q31): nuc jeannine (D7Z1,B9U496)x2[98/100] CEP 9: nuc jeannine (D9Z1x3)[43/100],(D9Z1x4)[38/100] INTERPRETATION: 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 There is no evidence for gains orlosses of chromosomes 1 and 7; deletions of 13q14.2; or an IgHrearrangement. Karyotype analysis was also requested from the culturedcells, however, there were insufficient metaphase cells available for thisstudy to be performed. Hyperdiploidy with deletion/ monosomy of 14q has been reported in plasmacell neoplasms. Deletions of 17p (hemizygosity of TP53) is associated withdisease progression. Please correlate with concurrent Hematopathologyreport ([id number]). Electronically Signed By Piper Wesley, Ph.D., [facility], Director ofCytogenetics 03/27/2019 15:24:33Gross DescriptionDATA:SPECIMEN TYPE: BONE MARROW (Karyotype Analysis) / ISOLATED PLASMA CELLS(FISH) CULTURE TYPE: 24 HOUR UNSTIMULATEDADDITIONAL CELLS EVALUATED FOR FISH: 700 ISCN NOMENCLATURE: nuc jeannine(CDKN2C,CKS1B)x2[97/100],(5p15.31,EGR1)x3[90/100],(D7Z1,P5D706)x2[98/100],(D9 Z1x3)[43/100],(D9Z1x4)[38/100],(Q36G905,13q34)x2[95/100],(IgHx1)[91/100],(TP53x1 ,D17Z1 x2)[25/100],(TP53x1,WX82wckd2,P63O7d5)[17/100],(TP53,D17Z1)x1[10/100]COMMENTS:Fl uorescence in situ hybridization (FISH) studies were performed toevaluate specifically for abnormalities of chromosomes 1, 5, 7, 9, 13, 14,and 17, which have been associated with multiple myeloma. The probes wereobtained from [employer] or [employer]. Hybridization wascarried out as per the stated protocol and cells were counterstained withDAPI. There was no significant background or cross hybridization ofsignal. The laboratory validation data for this probe indicated 3% as thelower limit for sensitivity.The following probes were utilized:PROBE PROBE SITE COLOR OF SIGNALS CELLS EVALUATED RESULTS CDKN2C(p18)CKS1B 1p32.31q21.3 green red 100 97% - 2 signals each locus 5p15.31EGR1 5p15.315q31.2 greenred 100 90% - 3 signals each locus 10% - 2 signals each locus CEP 7/LSI E1R016 D7Z1/7q31 greenorange 100 98% - 2 signals each locus CEP 9 D9Z1 green 100 43% - 1ejcdwjm88% - 4 signals 19% - 2 signals [id number] +control 13q14.213q34 spectrum orange/redspectrum green 100 95% - 2 signals each locus IgH 14q32 yellow 100 91% - 1 signal 7% - 2 signals LSI p53/CEP 17(control) 17p13.1D17Z1 redgreen 100 25% - 1 signal for 17p, 2 signals for CEP 1717% - 1 signal for 17p, 1 partial signal for 17p, 2 signals for CEP 17 10% - 1 signal each locus46%- 2 signals each locus NOTE: The plasma cells evaluated in this study were isolated from thebone marrow mixed cell population utilizing immunomagnetic cellseparation. This technology significantly enriches the test cellpopulation for plasma cells, thereby improving FISH detection of anomaliesassociated with plasma cell myeloma. However, as this is a selectivepopulation, the true in vivo frequencies of the anomalies identifiedcannot be determined. Furthermore, the FISH test was developed and itsperformance determined by the Cytogenetics section of the Department ofClinical Pathology. Although the test has not been cleared or approved bythe U. S. Food and Drug Administration (FDA), the FDA has determined thatsuch approval is not necessary. However, the procedure is consideredinvestigational, and should not be used as the sole criteria fordiagnosis. Name Value Range Interpretation Code Description Data Miladys rce(s) Supporting Document(s) ID Date Data Source [id number] 03/11/2019 09:44:00 AM EST [facility] ([facility], ) Name Value Range Interpretation Code Description Data Miladys rce(s) Supporting Document(s) Surgical pathology study (SEE NOTE) [facility] ([facility], ) FINAL DIAGNOSIS Gastric antrum, biopsy: Gastric mucosa with mild chronic inflammation and reactive changes. No Helicobacter organisms identified. 03/14/2019 - 105 CLINICAL DIAGNOSIS Reflux and hiatal hernia 03/11/2019 - 111 GROSS DIAGNOSIS Received in formalin labeled "biopsy antrum" are two pink fragment of mucosa measuring 0.2 cm each. All in one. -BP 03/11/2019 - 111 Signed DEWAYNE CHAVEZ MD 03/14/2019 1121 ID Date Data Source [id number] 03/10/2019 01:04:55 PM EST [facility] Name Value Range Interpretation Code Description Data Miladys rce(s) Supporting Document(s) Progress Note [facility] RJDAXk4cEiEPAuHl79/YUQooBZYey3YwQXgxIHb7MDvuNJAuO4VaRNF8oJ4pHPK7PMbROsZfNReaZiG7 [facility] [file] AgICAgICAgICAgICAgICAgICAgICAgICAgICAgICAg ICAgICAgICAgICAgICAgICAgICAgICAgICAgICAgICAgICAgICAgICAgDQogICAgICAgICAgICAgICAg ICAgICAgICAgICAgICAgICAgICAgICAgICAgICAgICAgICAgICAgICAgICAgICAgICAgICAgICAgICAg ICAgICAgICAgICAgICAgICAgICAgICAgDQogICAgIC AgICAgICAgICAgICAgICAgICAgICAgICAgICAgICAgICAgICAgICAgICAgICAgICAgICAgICAgICAgIC AgICAgICAgICAgICAgICAgICAgICAgICAgICAgICAgICAgDQogICAgICAgICAgICAgICAgICAgICAgIC AgICAgICAgICAgICAgICAgICAgICAgICAgICAgICAg ICAgICAgICAgICAgICAgICAgICAgICAgICAgICAgICAgICAgICAgICAgICAgDQogICAgICAgICAgICAg ICAgICAgICAgICAgICAgICAgICAgICAgICAgICAgICAgICAgICAgICAgICAgICAgICAgICAgICAgICAg ICAgICAgICAgICAgICAgICAgICAgICAgICAgDQogIC AgICAgICAgICAgICAgICAgICAgICAgICAgICAgICAgICAgICAgICAgICAgICAgICAgICAgICAgICAgIC AgICAgICAgICAgICAgICAgICAgICAgICAgICAgICAgICAgICAgDQogICAgICAgICAgICAgICAgICAgIC AgICAgICAgICAgICAgICAgICAgICAgICAgICAgICAg ICAgICAgICAgICAgICAgICAgICAgICAgICAgICAgICAgICAgICAgICAgICAgICAgDQogICAgICAgICAg ICAgICAgICAgICAgICAgICAgICAgICAgICAgICAgICAgICAgICAgICAgICAgICAgICAgICAgICAgICAg ICAgICAgICAgICAgICAgICAgICAgICAgICAgICAgDQ ogICAgICAgICAgICAgICAgICAgICAgICAgICAgICAgICAgICAgICAgICAgICAgICAgICAgICAgICAgIC AgICAgICAgICAgICAgICAgICAgICAgICAgICAgICAgICAgICAgICAgDQogICAgICAgICAgICAgICAgIC AgICAgICAgICAgICAgICAgICAgICAgICAgICAgICAg KQAcNYIvRORpDOLwPUMpABCrFXSoSECuYJVqRIYyRCKdTTJyYZEbJNHzSEGvUTPjZJScVVc8S2taRAMu XOWnFN5jOZp2Am4+JCyXHuViOVA0vcAanP6NEO2by1IgULqwNVYyv1IdGNk1LD3IZCVpUIdjDS8PSJas pl0QBLGpXBGhtMHKn6qqDtBaETE9EQCeZodfYN0EWC BeU3ngzbAtORDuXBIRJDijVIKQLSdoDTYPITSwHSNxTuMqGlAxPKOpWPUdYZLWPEM8OAOzQtWmZJyvYZ 1Nn3DnsYQ8PEw+Kq4ANO6sg2KvUGyfGPTsFJ6zxt9VPZyLDeJdR0ZavpO8TSD0VTTyJw0EDWXgKGTvuN DyVEPuJKOLOqQeH7UcpD18TYHJUf9+DQplbmRvYmoN FlW7WVWtk1JsROa1OM4HDMOfUKn8dQKeMMYpN0Lih0CaTe87RTUxRfciO4apbzspcjQyRXXAJT5erOpi XA6VXCK3YJBaThAaSkZaNWziNHG5GLCxBC7aQIhuLP6FHLS5ILxoWNWoVTRxU0qEKwEsKEWsPGVreXgs GF5GOgVnV8AenkRykYUnLQPjMSZNAp2+DQplbmRvYm zLNzU7BJMos1SmFEj4XT7DRPMoLXozSH4PWCOvwV0tRUnxHL0QBaMwQkDcHNSRVzEoO91wzVTrSXe4C9 VtYmVkZGVkRmlsZXMgPDwvTmFtZXMgWyBdDQogID4+ID4+QGkhCA8BYOixhvDnBUWkIb5CJOKcNCDsQL 7rERIzSOQmX7C3aGwaGZLRSxWwO5amtnstZK8jRBGp C989xAvpguUkFMP2OPEhTd1TDBChMEO2ARXfaBZpIjPkQSNBLWifXH0LpAFsJYC0xV1dUVhyNKKtFOVw R1xSJeSisPgkQI27lGparnZxcITxBMe+Zu3UFZ8zw1UxWWl3ykOlTNytYLD8RLmbJRCmMXGlZJZbSPW3 APU0QUAFPbQzZKAgDKNbCQevDUYpCMAuws2NTTUjGH QxOGF1TmOhJGKpCNApSZytIBTkBFI4Ccv5ARPtRWJqNJ3PGzQhCGCmZVDtVGksJAKoDACyrc3OUEEkBA EmPjzrIwOoDMVtVKSnEKaaPQVhXWC0AKA3YEDxOXAfBG5FItLdPHIpKHsiDoWhETMeRVNnkd5RLUHiJU ThUvX7NUEdFFXeLBOqLGopAYEwRFUxDkknLUGoKJXf VJ4UEpTxBMCoNJG3CgqnBAUzAQWgth1ALJImWYQsBsX7YPPaQKTdHVTaATwjAWUuXOGcXQAtCLTxYOBv OT3JNdKiPPYcQEjnVrBuOYXfBTXyhz0NSDUcSXDyEiIyXwXwCYNbHUMrNIxlCTOiFNZ5CXG2PSDxRNSc LT4HOaRsHKPaPDm1QeNdJWEyALVswm0XXTVgGXVhVT H1JwNwBFFuZNHkHWtdMIThDPYvKuvjONHgPGFzHT6YYdBnJJSjBdO7ZpAhLLRbESLqte7IGYEyZMTfUq cqICFbZYYiFRErWUwcWOHhQDEqLNZdBDQoQDSeER2XJeYxOUUiIpA1UqKrVTWyMGOvmn9DRUGxRMLbQB N8AhYzCCKiXWJwHEvaFPHzSYW2WlRyFOYdYCLrMS8G YvSxSVDuTrH5PPImDUVhRGWtbj2CXRXtWWXuMrQzOlYwGYRmFLMoJNhnOXGjKFN1PdJ4ISKdPMVnMK1N QyVlITHaBhK7XnYoCSXkRQFduw8PDEYyYOVoBpegRGEmDWEkAOZoRVpfFCDnOKO9ObY2AUAhVCOfHI4L FjQsGSJlLsq0IEVtXYKoVCPdwc3GWENxIOTkLNWpJD BrWQQbNCByQXlxCQXgDFB9FRK7ZMZqNKTjKC8XMvYaFOGeHeb5IxXsFGRoZMKchp3NEREuYYHvVDc6Lx DpEOHxIXDiKZjbTSNqKLOpMERaEEWvRCCoUO7XKnNgFChpBCTCRti5LVggX1y5YSJwPf6NI4Ctm7GxXx PqGWVTNBfbAN2hlzVeWSVvZu7GY5kFTrf5IRNjL5V0 QgxaGGwnHNA1BVvtJPReCJneFvvyNmvyIQ6wWLG5MXLnJry1FvJ4RZGuXcw5JVF0WrM4WJXdE2SqJaOn IsCmZX5EXb0OIuM7SKU4iORjGx6NXOFoWKQNLsXmNZ6DCBw= ID Date Data Source URINE TOTAL PROTEIN 24 HOUR 02/21/2019 12:00:00 AM EST eCW1 ([facility]) Name Value Range Interpretation Code Description Data Miladys rce(s) Supporting Document(s) 210.0 50-150 TOTAL PROTEIN 24 HOUR URI NE eCW1 ([facility]) 6.0 0-12 URINE TOTAL PROTEIN eCW1 ([facility]) ID Date Data Source URINE CREATININE 24 HOUR 02/21/2019 12:00:00 AM EST eCW1 ([facility]) Name Value Range Interpretation Code Description Data Miladys rce(s) Supporting Document(s) 3500 TOTAL VOLUME, URINE eCW1 ([facility]) 1309.0 600-1800 CREATININE 24 HOUR, URINE eCW1 ([facility]) 37.4 CREATININE, URINE eCW1 ([facility]) ID Date Data Source LDH LACTATE DEHYDROGENASE 02/19/2019 12:00:00 AM EST eCW1 ([facility]) Name Value Range Interpretation Code Description Data Miladys rce(s) Supporting Document(s) 138 84-246 LDH LACTATE DEHYDROGENASE eCW1 ([facility]) ID Date Data Source SERUM PROTEIN ELECTROPHORESIS 02/19/2019 12:00:00 AM EST eCW 1 ([facility]) Name Value Range Interpretation Code Description Data Miladys rce(s) Supporting Document(s) 42.5 55.8-66.1 ALBUMIN % eCW1 ([facility]) 7.7 7.1-11.8 SFIOR-6-TGXROWDWU % eCW1 ([facility]) 4.0 4.7-7.2 UNUL-8-DWXEWSDXN % eCW1 ([facility]) 3.2 2.9-4.9 SXLRE-3-HFYDQIYS % eCW1 ([facility]) 14.3 3.2-6.5 RFAR-5-WIWOKKYCZ % eCW1 ([facility]) 4.08 3.29-5.55 ALBUMIN eCW1 ([facility]) 1.3 11.1-18.8 GAMMA GLOBULIN % eCW1 ([facility]) 0.31 0.17-0.41 STRRJ-3-PDMHPCVAB eCW1 ([facility]) 0.74 0.42-0.99 FKLAB-6-BSANFCMJZ eCW1 ([facility]) 0.12 0.65-1.58 GAMMA [facility]LOBULINS [facility]CW[facility] 9.6 6.4-8.2 TOTAL PROTEIN eCW1 ([facility]) 3.96 0.19-0.55 GONW-4-ORFYJUZJG eCW1 ([facility]) 0.38 0.28-0.60 HVJU-4-FHBMOPTIU eCW1 ([facility]) SEE COMMENT SPEP INTERPRETATION eCW1 ([facility]) ID Date Data Source MAGNESIUM LEVEL 02/19/2019 12:00:00 AM EST eCW1 ([facility]) Name Value Range Interpretation Code Description Data Miladys rce(s) Supporting Document(s) 1.8 1.8-2.4 MAGNESIUM LEVEL eCW1 ([facility] ID Date Data Source Basic Metabolic Profile (BMP) 02/19/2019 12:00:00 AM EST eCW 1 ([facility]) Name Value Range Interpretation Code Description Data Miladys rce(s) Supporting Document(s) 119 70-100 GLUCOSE, FASTING eCW1 ([facility]) 13 7-18 BLOOD UREA NITROGEN eCW1 ([facility]) > 60.0 >45 GLOMERULAR FILTRATION RATE eCW 1 ([facility]) 0.96 0.55-1.30 CREATININE FOR GFR eCW1 ([facility]) 140 136-145 SODIUM LEVEL eCW1 ([facility]) 3.6 3.5-5.1 POTASSIUM SERUM eCW1 ([facility] 101 98-107 CHLORIDE LEVEL eCW1 ([facility]) 32 21-32 CARBON DIOXIDE LEVEL eCW1 ([facility]) 8.8 8.8-10.2 CALCIUM LEVEL eCW1 ([facility]) ID Date Data Source FREE KAPPA & LAMBDA LT CHAIN S 02/19/2019 12:00:00 AM EST eC W1 ([facility]) Name Value Range Interpretation Code Description Data Miladys rce(s) Supporting Document(s) 14.22 0.26-1.65 KAPPA/LAMBDA RATIO SERUM eCW1 ([facility]) 32.7 3.3-19.4 FREE KAPPA LIGHT CHAINS S DIANNA eCW1 ([facility]) 2.3 5.7-26.3 FREE LAMBDA LIGHT CHAINS SERUM eCW1 ([facility]) ID Date Data Source C REACTIVE PROTEIN QUANTITATIV (At [facility]) 02/19/2019 12:00 :00 AM EST eCW1 ([facility]) Name Value Range Interpretation Code Description Data Miladys rce(s) Supporting Document(s) < 0.30 0.00-0.30 C REACTIVE PROTEIN QUANTI TATIV eCW1 ([facility]) ID Date Data Source BETA 2 MICROGLOBULIN 02/19/2019 12:00:00 AM EST eCW1 ([facility]) Name Value Range Interpretation Code Description Data Miladys rce(s) Supporting Document(s) 3.2 0.6-2.4 BETA 2 MICROGLOBULIN eCW1 ([facility]) Procedure Social History Code Duration Value Status Description Data Source(s ) Smoking 12/20/2019 12:00:00 AM EDT Former Smoker completed Former Smoker eCW1 ([facility]) Smoking 12/20/2019 12:00:00 AM EDT Former Smoker completed Former Smoker eCW1 ([facility]) Smoking 12/20/2019 12:00:00 AM EDT Former Smoker completed Former Smoker eCW1 ([facility]) Smoking 12/20/2019 12:00:00 AM EDT Former Smoker completed Former Smoker eCW1 ([facility]) Smoking 09/19/2019 12:00:00 AM EDT Former Smoker completed Former Smoker eCW1 ([facility]) Smoking 05/07/2019 12:00:00 AM EST Patient is a former smoker completed Patient is a former smoker MEDENT ([facility], ) Alcohol intake 04/12/2019 12:00:00 AM EST Current non-d korina of alcohol (finding) completed Current non-drinker of alcohol (finding) [facility] Cigarette pack-years 04/12/2019 12:00:00 AM EST UNK completed [facility] Cigarettes smoked current (pack per day) - Reported 04/12/19 20 12:00:00 AM EST UNK completed [facility] Smoking 04/12/2019 12:00:00 AM EST Former smoker completed Former smoker [facility] Alcohol intake 03/10/2019 12:00:00 AM EST Current non-d korina of alcohol (finding) completed Current non-drinker of alcohol (finding) [facility] Cigarette pack-years 03/10/2019 12:00:00 AM EST UNK [facility] Cigarettes smoked current (pack per day) - Reported 03/10/20 12:00:00 AM EST UNK completed [facility] Smoking 03/10/2019 12:00:00 AM EST Former smoker completed Former smoker [facility] Vital Signs ID Date Data Source UNK Name Value Range Interpretation Code Description Data Source(s) Diastolic blood pressure 76 mm[Hg] 76 mm[Hg] eCW1 ([facility]) Systolic blood pressure 130 mm[Hg] 130 mm[Hg] e CW1 ([facility]) Body temperature 96.9 [degF] 96.9 [degF] eCW1 ( [facility]) Respiratory rate 18 /min 18 /min eCW1 ([facility]) Heart rate 82 /min 82 /min eCW1 [facility] Body mass index (BMI) [Ratio] 31.43 kg/m2 31.43 kg/m2 W1 ([facility]) Body height 64.5 [in_i] 64.5 [in_i] eCW1 ([facility]) Body weight 186 [lb_av] 186 [lb_av] eCW1 ([facility]) Body surface area Derived from formula 1.86 m2 1.86 m2 [facility] ([facility]) Body weight 83.462 kg 83.462 kg [facility] ([facility]) Lyles body weight 110 [lb_av] 110 [lb_av] MEDEN T ([facility]) Body mass index (BMI) [Ratio] 33.1 kg/m2 33.1 k g/m2 [facility] ([facility]) Body weight 184.00 [lb_av] 184.00 [lb_av] MEDEN T ([facility]) Body height 62.50 [in_i] 62.50 [in_i] [facility] ([facility]) 5'2.50" Diastolic blood pressure 68 mm[Hg] 68 mm[Hg] [facility] ([facility]) Systolic blood pressure 122 mm[Hg] 122 mm[Hg] M EDENT ([facility]) Diastolic blood pressure 60 mm[Hg] 60 mm[Hg] eCW1 ([facility]) Systolic blood pressure 112 mm[Hg] 112 mm[Hg] e CW1 ([facility]) Body temperature 97.4 [degF] 97.4 [degF] eCW1 ( [facility]) Respiratory rate 18 /min 18 /min eCW1 ([facility]) Heart rate 77 /min 77 /min eCW1 [facility] Body mass index (BMI) [Ratio] 31.09 kg/m2 31.09 kg/m2 eCW1 ([facility]) Body height 64.5 [in_us] 64.5 [in_us] eCW1 ([facility]) Body weight Measured 184 [lb_av] 184 [lb_av] eC W1 ([facility]) Diastolic blood pressure 70 mm[Hg] 70 mm[Hg] eCW1 ([facility]) Systolic blood pressure 120 mm[Hg] 120 mm[Hg] e CW1 ([facility]) Body temperature 97.3 [degF] 97.3 [degF] eCW1 ( [facility]) Respiratory rate 18 /min 18 /min eCW1 ([facility]) Heart rate 74 /min 74 /min eCW1 [facility] Body mass index (BMI) [Ratio] 30.59 kg/m2 30.59 kg/m2 eCW1 ([facility]) Body height 64.5 [in_us] 64.5 [in_us] eCW1 ([facility]) Body weight Measured 181 [lb_av] 181 [lb_av] eC W1 ([facility]) Body surface area Derived from formula 1.87 m2 1.87 m2 [facility] ([facility]) Body weight 84.823 kg 84.823 kg [facility] ([facility]) Lyles body weight 110 [lb_av] 110 [lb_av] MEDEN T ([facility]) Body mass index (BMI) [Ratio] 33.7 kg/m2 33.7 k g/m2 [facility] ([facility]) Body weight 187.00 [lb_av] 187.00 [lb_av] MEDEN T ([facility]) Body height 62.50 [in_i] 62.50 [in_i] [facility] ([facility]) 5'2.50" Oxygen saturation in Arterial blood by Pulse oximetry 98 % 98 % [facility] ([facility]) Room Air Heart rate 77 /min 77 /min [facility] ([facility]) Diastolic blood pressure 68 mm[Hg] 68 mm[Hg] [facility] ([facility]) Systolic blood pressure 118 mm[Hg] 118 mm[Hg] M EDENT ([facility]) Body weight 84.370 kg 84.370 kg [facility] ([facility]) Body mass index (BMI) [Ratio] 33.5 kg/m2 33.5 k g/m2 [facility] ([facility]) Body weight 186.00 [lb_av] 186.00 [lb_av] MEDEN T ([facility]) Body height 62.50 [in_i] 62.50 [in_i] [facility] ([facility], ) 5'2.50" Diastolic blood pressure 77 mm[Hg] 77 mm[Hg] [facility] ([facility]) Systolic blood pressure 148 mm[Hg] 148 mm[Hg] [facility]) Body weight 84.029 kg 84.029 kg [facility] ([facility]) Body mass index (BMI) [Ratio] 33.3 kg/m2 33.3 k g/m2 [facility] ([facility]) Body weight 185.25 [lb_av] 185.25 [lb_av] MEDEN T ([facility]) Body height 62.50 [in_i] 62.50 [in_i] [facility] ([facility]) 5'2.50" Diastolic blood pressure 72 mm[Hg] 72 mm[Hg] [facility] ([facility]) Systolic blood pressure 112 mm[Hg] 112 mm[Hg] [facility]) Diastolic blood pressure 76 mm[Hg] 76 mm[Hg] eCW1 ([facility]) Systolic blood pressure 120 mm[Hg] 120 mm[Hg] e CW1 ([facility]) Body temperature 97.2 [degF] 97.2 [degF] W1 ( [facility]) Respiratory rate 17 /min 17 /min eCW1 ([facility]) Heart rate 70 /min 70 /min eCW1 [facility] Body mass index (BMI) [Ratio] 31.77 kg/m2 31.77 kg/m2 eCW1 ([facility]) Body height 64.5 [in_us] 64.5 [in_us] eCW1 ([facility]) Body weight Measured 188 [lb_av] 188 [lb_av] eC W1 ([facility]) Diastolic blood pressure 80 mm[Hg] 80 mm[Hg] eCW1 ([facility]) Systolic blood pressure 132 mm[Hg] 132 mm[Hg] e CW1 ([facility]) Body temperature 97.5 [degF] 97.5 [degF] eCW1 ( [facility]) Respiratory rate 18 /min 18 /min eCW1 ([facility]) Heart rate 89 /min 89 /min eCW1 [facility] Body mass index (BMI) [Ratio] 31.87 kg/m2 31.87 kg/m2 eCW1 ([facility]) Body height 64.5 [in_us] 64.5 [in_us] eCW1 ([facility]) Body weight Measured 188.6 [lb_av] 188.6 [lb_av ] eCW1 ([facility]) Systolic blood pressure 134 mm[Hg] 134 mm[Hg] A THENA ([facility]) Body height 65 [in_i] 65 [in_i] KIMANI ([facility]) Diastolic blood pressure 74 mm[Hg] 74 mm[Hg] KIMANI ([facility]) Diastolic blood pressure 70 mm[Hg] 70 mm[Hg] eCW1 ([facility]) Systolic blood pressure 122 mm[Hg] 122 mm[Hg] e CW1 ([facility]) Body temperature 97.9 [degF] 97.9 [degF] eCW1 ( [facility]) Respiratory rate 18 /min 18 /min eCW1 ([facility]) Heart rate 81 /min 81 /min eCW1 [facility] Body mass index (BMI) [Ratio] 31.26 kg/m2 31.26 kg/m2 eCW1 ([facility]) Body height 64.5 [in_us] 64.5 [in_us] eCW1 ([facility]) Body weight Measured 185 [lb_av] 185 [lb_av] eC W1 ([facility]) Systolic blood pressure 145 mm[Hg] 145 mm[Hg] A THENA ([facility]) Body height 65 [in_i] 65 [in_i] KIMANI ([facility]) Diastolic blood pressure 73 mm[Hg] 73 mm[Hg] KIMANI ([facility]) Systolic blood pressure 145 mm[Hg] 145 mm[Hg] A THENA ([facility]) Body height 65 [in_i] 65 [in_i] KIMANI [facility] [facility] Diastolic blood pressure 73 mm[Hg] 73 mm[Hg] KIMANI ([facility]) Diastolic blood pressure 72 mm[Hg] 72 mm[Hg] eCW1 ([facility]) Systolic blood pressure 128 mm[Hg] 128 mm[Hg] e CW1 ([facility]) Body temperature 97.4 [degF] 97.4 [degF] eCW1 ( [facility]) Respiratory rate 18 /min 18 /min eCW1 ([facility]) Heart rate 69 /min 69 /min [facility] Body mass index (BMI) [Ratio] 31.97 kg/m2 31.97 kg/m2 [facility] ([facility]) Body height 64.5 [in_us] 64.5 [in_us] eCW1 ([facility]) Body weight Measured 189.2 [lb_av] 189.2 [lb_av ] eCW1 ([facility]) ID Date Data Source [id number] 03/20/2020 04:26:05 PM [facility] Name Value Range Interpretation Code Description Data Source(s) WEIGHT RECORDED 188.01 pounds 188.01 pounds [facility] Height 64 Inches 064 Inches [facility] WEIGHT RECORDED 188.01 pounds 188.01 pounds [facility] Height 64 Inches 064 Inches [facility] ID Date Data Source [id number] 04/24/2019 05:53:30 PM [facility] Name Value Range Interpretation Code Description Data Source(s) WEIGHT RECORDED 187.4 lb 187.4 lb [facility] Body height Measured 62.99 in 62.99 in [facility] ID Date Data Source [id number] 03/10/2019 01:04:55 PM [facility] Name Value Range Interpretation Code Description Data Source(s) WEIGHT RECORDED 189 lb 189 lb [facility] Body height Measured 62.99 in 62.99 in [facility] Patient Treatment Plan of Care Planned Activity Planned Date Details Description Data Source (s) tizanidine 2 MG Oral Tablet 12/20/2019 12:00:00 AM EDT eCW1 ([facility]) Trazodone Hydrochloride 50 MG Oral Tablet 12/20/2019 12:00:00 AM ED T eCW1 ([facility]) tizanidine 2 MG Oral Tablet 12/20/2019 12:00:00 AM EDT eCW1 ([facility]) Trazodone Hydrochloride 50 MG Oral Tablet 12/20/2019 12:00:00 AM ED T eCW1 ([facility]) tizanidine 2 MG Oral Tablet 12/20/2019 12:00:00 AM EDT eCW1 ([facility]) Trazodone Hydrochloride 50 MG Oral Tablet 12/20/2019 12:00:00 AM ED T eCW1 ([facility]) tizanidine 2 MG Oral Tablet 12/20/2019 12:00:00 AM EDT eCW1 ([facility]) Trazodone Hydrochloride 50 MG Oral Tablet 12/20/2019 12:00:00 AM ED T eCW1 ([facility]) atorvastatin 80 MG Oral Tablet 09/20/2019 12:00:00 AM EDT eCW1 ([facility]) atorvastatin 80 MG Oral Tablet 09/20/2019 12:00:00 AM EDT eCW1 ([facility]) atorvastatin 80 MG Oral Tablet 09/20/2019 12:00:00 AM EDT eCW1 ([facility]) atorvastatin 80 MG Oral Tablet 09/20/2019 12:00:00 AM EDT eCW1 ([facility]) MetFORMIN HCl ER 750 MG 09/20/2019 12:00:00 AM EDT eCW1 ([facility]) atorvastatin 80 MG Oral Tablet 09/20/2019 12:00:00 AM EDT eCW1 ([facility]) Misc. Devices - 07/17/2019 12:00:00 AM EDT eCW1 ([facility]) Famotidine 40 MG Oral Tablet 02/19/2019 12:00:00 AM EST eCW1 ([facility]) Famotidine 40 MG Oral Tablet 02/19/2019 12:00:00 AM EST eCW1 ([facility]) Lactulose 667 MG/ML Oral Solution [Enulose] 02/11/2019 12:00:00 AM EST eCW1 ([facility]) Cimetidine 800 MG Oral Tablet 02/05/2019 12:00:00 AM EST eCW1 ([facility]) POLYETHYLENE GLYCOL 3350 142 MG/ML Oral Solution [Carey lax] 02/05/2019 12:00:00 AM EST eCW1 ([facility]) pantoprazole 40 MG Delayed Release Oral Tablet KIMANI ([facility]) Lactulose 667 MG/ML Oral Solution KIMANI ([facility]) Cimetidine 800 MG Oral Tablet KIMANI ([facility]) Allopurinol 100 MG Oral Tablet KIMANI ([facility]) pantoprazole 40 MG Delayed Release Oral Tablet KIMANI ([facility]) Lactulose 667 MG/ML Oral Solution KIMANI ([facility]) Esomeprazole 20 MG Delayed Release Oral Capsule KIMANI ([facility]) Allopurinol 100 MG Oral Tablet KIMANI ([facility])
[2020-03-24] MEDS ORDERED: KETOROLAC 30 MG/ML 1ML VIAL IV ONE (14:30)
[2020-03-24] MEDS ORDERED: ACETAMINOPHEN 325 MG TAB PO ONE (14:30)
[2020-03-24 14:31] LABS: ALBUMIN 3.2 GM/DL (3.2-5.2); ALT/SGPT 21 U/L (12-78); BILIRUBIN,DIRECT 0.2 MG/DL (0.0-0.2); BILIRUBIN,TOTAL 1.2 MG/DL (0.2-1.0); BLOOD UREA NITROGEN 7 MG/DL (7-18); CALCIUM LEVEL 8.1 MG/DL (8.8-10.2); CARBON DIOXIDE LEVEL 33 MEQ/L (21-32); CHLORIDE LEVEL 108 MEQ/L (98-107); CREATININE FOR GFR 0.62 MG/DL (0.55-1.30); GLOMERULAR FILTRATION RATE > 60.0 (>45); GLUCOSE, FASTING 132 MG/DL (70-100); LIPASE 27 U/L (73-393); POTASSIUM SERUM 2.9 MEQ/L (3.5-5.1); SODIUM LEVEL 145 MEQ/L (136-145); TOTAL PROTEIN 5.9 GM/DL (6.4-8.2); TROPONIN I < 0.02 NG/ML (< 0.10)
[2020-03-24 14:34] LABS: CK-MB VALUE MASS < 1.0 NG/ML (<3.6); CPK CREATINE PHOSPHOKINASE 29 U/L (26-192); FREE T4 1.28 NG/DL (0.76-1.46); MB/CK RELATIVE INDEX 3.45 (< OR =4); NT-PRO BNP 746 PG/ML (<125); THYROID STIMULATING HORMONE 0.632 uIU/ML (0.358-3.740)
[2020-03-24] MEDS ORDERED: POTASSIUM CHLORIDE 10 MEQ SR TABLET PO ONE (14:45)
[2020-03-24] MEDS ORDERED: METOPROLOL TART 25 MG TABLET PO ONE (14:45)
[2020-03-24 14:56] LABS: MAGNESIUM LEVEL 1.5 MG/DL (1.8-2.4)
[2020-03-24] MEDS ORDERED: KCL 10MEQ/100ML SWI (KRUN) 10 MEQ in IV 1 EA IV ONE (15:00)
--- NOTE | 2020-03-24 15:11 | REPVR ---
PROCEDURE INFORMATION: Exam: CT Head Without Contrast Exam date and time: 03/24/2020 1:57 PM Age: 64 years old Clinical indication: Pain; Headache; Additional info: Severe headache TECHNIQUE: Imaging protocol: Computed tomography of the head without contrast. Radiation optimization: All CT scans at this facility use at least one of these dose optimization techniques: automated exposure control; mA and/or kV adjustment per patient size (includes targeted exams where dose is matched to clinical indication); or iterative reconstruction. COMPARISON: CT Head without contrast 11/25/2019 9:59 AM FINDINGS: Brain: There is no acute cortical infarction, intracranial hemorrhage or mass. Cerebral ventricles: No ventriculomegaly. Bones/joints: Unremarkable. No acute fracture. Paranasal sinuses: Visualized sinuses are unremarkable. No fluid levels. Mastoid air cells: Visualized mastoid air cells are well aerated. Vasculature: Atherosclerosis. Soft tissues: Unremarkable. IMPRESSION: No acute intracranial findings. Electronically signed by: Romy Feliciano On 03/24/2020 15:11:48 PM
[2020-03-24] MEDS ORDERED: MAG SULF 1GM/100ML (MAG RUN) 1 GM in IV 1 EA IV ONE ×2 (16:00→17:15)
[2020-03-24] MEDS ORDERED: MAGNESIUM OXIDE 400 MG TAB (MAG-OX) PO ONE (16:00)
[2020-03-24] MEDS ORDERED: hydrALAZINE 20MG/ML 1ML VIAL (J0360 PER 20MG) IV ONE (16:15)
--- NOTE | 2020-03-24 17:26 | ECGEPIP ---
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
--- NOTE | 2020-03-24 17:42 | HPEPDOC ---
[facility] Medical History & Physical Date of Admission Mar 24, 2020 Date of Service: Mar 24, 2020 Attending Physician: Lara Rutledge MD History and Physical CHIEF COMPLAINT: Headache HISTORY OF PRESENT ILLNESS: Patient is a 64 y/o F with PMH of multiple myeloma, RA, COPD/asthma , fibromyalgia, HTN, PTSD, migraine headaches, anxiety/depression consider from her primary care provider's office today after complaining of 8/10 headache over the past several days. He was described as pounding, encompassing her entire head, constant. It has been interrupting her sleep at night denies it being the worst of her life. No recent head injuries. She tried tramadol at home but that was the only medication and it did not work. The patient was recently admitted at [facility] for electrolyte abnormalities and several medications including a diuretic were stopped. She was continued on a metoprolol 25 mg by mouth twice a day which the patient had stopped taking after her discharge because she felt like this was causing her headache. She admits to having some lightheadedness, dizziness, increased unsteadiness on her feet from baseline along with the headache. She denies blurry vision, chest pain, shortness of breath, nausea, vomiting, fevers, chills. Her PCP described. In the ER, VS showed BP [id number], other VS stable. Trop neg, BNP mildly elevated at 746, mag low at 1.6, K 2.9, H/H 9.4/28. CT of the head was negative, chest x-ray showed some cardiomegaly but otherwise stable changes. She was given initially 25 mg of Lopressor which is part of her home medication which did not help her blood pressure. She will receive 10 mg of IV hydralazine which brought her blood pressure down to 140s/70s. For her electrolytes she was given one run of magnesium and 800 mg by mouth. She was also given 40 mEq of potassium chloride supplement. Her headache had improved some but was still 4/10 when evaluated in the emergency room. The patient was later admitted for hypertensive urgency, headache under observation status. ROS: neg except what was mentioned above PAST MEDICAL HISTORY: 1. Multiple myeloma. February 2018 2. Rheumatoid arthritis. 3. COPD/asthma 4. fibromyalgia 5. hypertension 6. PTSD 7. Migraine headaches 8. Depression 9. Anxiety 10. HLD 11. NAM on CPAP PAST SURGICAL HISTORY: 1. Ventral hernia repair in 2016. 2. Cholecystectomy in 2002. 3. total hysterectomy. 4. Partial thyroidectomy 5. cystoscopy 6. endoscopic polypectomy of large intestine 7. 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 Appendectomy 9. Right wrist carpal tunnel release SOCIAL HISTORY: Marital status: Tobacco use: <1 PPD for 15 years, quit >30 years ago ETOH: denies Illicit drug use: denies Full Code PCP- Jaye Scales, Cardiology- Dr. Sherwood, Pulmonology- Dr. Saavedra, Emanuel tologist/oncologist in [place] FAMILY HISTORY: Mother- Alzheimer's dementia. alive Father- CAD. at 73 y/o ALLERGIES: Please see below. HOME MEDICATIONS: Please see below. PHYSICAL EXAMINATION: VS: [id number], other VS stable CONSTITUTIONAL: No acute distress, resting comfortably, AAO x 3 EYES: PERRLA, EOM intact HENT, MOUTH: Normocephalic, atraumatic, moist mucous membranes, NECK: SUPPLE, no JVD, no lymphadenopathy, no carotid bruit CV: Regular rate and rhythm, S1S2 normal, no murmurs/rubs/gallops RESPIRATORY: Clear to auscultation bilaterally, no rales/rhonchi/wheezes GI: obese abd, BS positive in 4 quadrants, soft, nontender, nondistended, no rebound or guarding, no organomegaly : Deferred MUSCULOSKELETAL: Normal ROM. No cyanosis, clubbing, swelling, joint deformity, nonpitting extremity edema INTEGUMENTARY: Intact, no rashes, no lesions, no erythema NEUROLOGIC: Cranial Nerves II-XII are intact, no focal deficits PSYCHIATRIC: Mood and affect are normal LABORATORY DATA: Please see below IMAGING: CT head: neg CXR: CM, stable mid vascular congestion, interstitial prom Echo 09/2019: 1. Normal left ventricle internal dimensions and wall thickness. Normal regional LV wall motion and wall thickening. Normal LV systolic function. LVEF 70% by visual estimate. Grade 1 LV diastolic dysfunction (impaired relaxation filling pattern). 2. No pericardial effusion. 3. Moderate aortic valve sclerosis of a 3-cuspid aortic valve. Mild aortic regurgitation. No aortic stenosis. 4. Moderate mitral annular calcification. Very mild mitral regurgitation. No mitral stenosis. 5. Otherwise normal appearing echocardiogram Doppler findings. ASSESSMENT: 64 y/o F with PMH of multiple myeloma, RA, COPD/asthma , fibromyalgia, HTN, PTSD, migraine headaches, anxiety/depression admitted for hypertensive urgency, headache under observation status. PLAN: Hypertensive urgency -no signs of end organ damage;however, headache persists but improved with BP in 140/70's currently. -Trop neg -Echo ordered, last aboe -Restarting home metoprolol and losartan, home pain medications -Monitor on tele Headache likely 2/2 to hypertensive urgency, uncontrolled BP -C/w treatment above -Hx of migraine headaches but this does not seem like that kind Unsteady gait, acute on chronic -worsened with headache -PT/OT Hypokalemia -Hx of hypokalemia, previously on supplement but stopped on last admission to [facility] -S/p 40 mEq today -F/u repeat at 2100, replace PRN Hypomagnesemia -S/p 1 mag run, 800 mg mag ox -F/u repeat at 2100, replace PRN -Started back on BID supplement Multiple myeloma (MM) s/p chemo, stem cell transplant -F/u with [place] heme/onc as o/p Chronic pain 2/2 to MM, fibromyalgia -C/w home pain regimen PTSD/anxiety/depression -C/w home medications COPD/asthma -Stable NAM -C/w home CPAP HLD -C/w home statin GERD -PPI DVT px -Enoxaparin DISPOSITION: Admitted under observation status. Plan is discharge home when medically improved. Vital Signs Vital Signs Date Time Temp Pulse Resp B/P (MAP) Pulse Ox O2 Delivery O2 Flow Rate FiO2 03/24/20 16:53 64 97 Room Air 03/24/20 16:35 195/106 03/24/20 13:07 98.4 15 Laboratory Data Labs 24H Laboratory Tests 2 03/24/20 13:28: Immature Granulocyte % (Auto) 0.6, Neutrophils (%) (Auto) 65.6, Lymphocytes (%) (Auto) 25.8, Monocytes (%) (Auto) 7.1H, Eosinophils (%) (Auto) 0.6, Basophils (%) (Auto) 0.3, Neutrophils # (Auto) 2.0, Lymphocytes # (Auto) 0.8L, Monocytes # (Auto) 0.2, Eosinophils # (Auto) 0.0, Basophils # (Auto) 0.0, Nucleated Red Blood Cells % (auto) 0.0, Immature Platelet Fraction 3.3, Anion Gap 4L, Glomerular Filtration Rate > 60.0, Calcium Level 8.1L, Magnesium Level 1.5L, Total Bilirubin 1.2H, Direct Bilirubin 0.2, Aspartate Amino Transf (AST/SGOT) 10, Alanine Aminotransferase (ALT/SGPT) 21, Alkaline Phosphatase 93, Total Creatine Kinase 29, Creatine Kinase MB < 1.0, Creatine Kinase MB Relative Index 3.45, Troponin I < 0.02, ZL-Vlc-Q-Type Natriuretic Peptide 746H, Total Protein 5.9L, Albumin 3.2, Albumin/Globulin Ratio 1.2, Lipase 27L, Thyroid Stimulating Hormone (TSH) 0.632, Free Thyroxine 1.28 CBC/BMP Laboratory Tests 03/24/20 13:28 Home Medications Scheduled Allopurinol (Allopurinol) 100 Mg Tablet, 100 MG PO QHS Ascorbic Acid (Vitamin C) 500 Mg Capsule, 500 MG PO DAILY Aspirin (Aspirin) 81 Mg Chw, 81 MG PO DAILY Atorvastatin Calcium (Atorvastatin Calcium) 80 Mg Tablet, 80 MG PO DAILY Cholecalciferol (Vitamin D3) (Vitamin D3) 1,000 Unit Tablet, 2,000 UNITS PO DAILY Dexamethasone (Dexamethasone) 4 Mg Tablet, 4 MG PO ASDIRECTED Loratadine (Claritin) 10 Mg Capsule, 10 MG PO ASDIRECTED for allergy symptoms Losartan Potassium (Losartan Potassium) 100 Mg Tablet, 100 MG PO DAILY Magnesium Oxide (Magnesium) 400 Mg Capsule, 400 MG PO BID for constipation Metronidazole (Flagyl) 500 Mg Tablet, 500 MG PO Q8H FOR 10 DAYS Ailey-3 Fatty Acids/Fish Oil (Fish Oil 1,000 mg Capsule) 1 Each Capsule, 1,000 MG PO DAILY Pantoprazole Sodium (Pantoprazole Sodium) 40 Mg Tablet.dr, 40 MG PO BID Pomalidomide (Pomalyst) 2 Mg Capsule, 1 CAP PO ASDIRECTED 2MG DAILY FOR 21 DAYS, OFF FOR 7 DAYS Potassium Chloride (Potassium Chloride) 10 Meq Tab.er.prt, 40 MEQ PO BID Torsemide (Torsemide) 100 Mg Tablet, 100 MG PO DAILY Vitamin B Complex (Vitamin B Complex) 1 Each Tablet, 1 TAB PO DAILY Scheduled PRN Colchicine (Colchicine) 0.6 Mg Tablet, 0.6 MG PO DAILY PRN for GOUT PAIN Docusate Sodium (Docusate Sodium) 100 Mg Capsule, 100 MG PO QHS PRN for CONSTIPATION Hydroxyzine HCl (Hydroxyzine HCl) 25 Mg Tablet, 25 MG PO DAILY PRN for ITCHING Loperamide HCl (Loperamide) 2 Mg Capsule, 2 CAP PO Q6H PRN for DIARRHEA Morphine Sulfate (Morphine Sulfate) 15 Mg Tablet, 1 TAB PO TIDP PRN for pain Prochlorperazine Maleate (Prochlorperazine Maleate) 10 Mg Tablet, 10 MG PO Q6H PRN for NAUSEA OR VOMITING Tramadol HCl (Tramadol HCl) 50 Mg Tablet, 1 TAB PO Q6HP PRN for PAIN Allergies Coded Allergies: Penicillins (Verified Allergy, Severe, THROAT SWELLING/RASH, 11/27/19) Quinolones (Verified Allergy, Intermediate, hives, 10/02/19) carisoprodol (Verified Allergy, Intermediate, hives, 10/02/19) ciprofloxacin (Verified Allergy, Intermediate, SCRATCHY THROAT, 11/27/19) doxycycline (Verified Allergy, Intermediate, HIVES, 11/27/19) gabapentin (Verified Allergy, Intermediate, hives, 10/02/19) spironolactone (Verified Allergy, Intermediate, hives, 10/02/19) amitriptyline (Verified Adverse Reaction, Intermediate, "PASS OUT", 11/27/19) ibuprofen (Verified Adverse Reaction, Intermediate, renal issues, 11/27/19) metformin (Verified Adverse Reaction, Intermediate, DIARRHEA, 11/25/19) A-FIB/CHADSVASC A-FIB History Current/History of A-Fib/PAF?: No Current PO Anticoag Therapy: No Age/Risk Factor Scoring CHADSVASC: CHADSVASC Response (Comments) Value Age Risk Factor Age 65-74 years old 1 Gender Risk Factor Female 1 Hx of CHF No 0 Hx of HTN Yes 1 Hx of Stroke/TIA/or VTE No 0 Hx of Diabetes No 0 Hx of Vascular Disease No 0 Total 3 Treatment Treatment ordered: Other Other anticoagulant ordered: Lara Razo MD Mar 24, 2020 17:42
[2020-03-24] MEDS ORDERED: MORPHINE 30 MG TAB **MSIR PO PRN (17:45)
[2020-03-24] MEDS ORDERED: PROMETHAZINE 25 MG TAB PO PRN (17:45)
[2020-03-24] MEDS ORDERED: DOCUSATE SODIUM 100MG CAPSULE PO PRN (17:45)
[2020-03-24] MEDS ORDERED: allopurinoL 100 MG TAB PO PRN (17:45)
[2020-03-24] MEDS ORDERED: LORA-674 PO (18:11)
[2020-03-24] MEDS ORDERED: MORP15TA2 PO (18:11)
[2020-03-24] MEDS ORDERED: PROM25TA12 PO (18:11)
[2020-03-24] MEDS ORDERED: TRAM50TA2 PO (18:11)
[2020-03-24] MEDS ORDERED: PILL CUTTER 1 EACH XX PRN (18:30)
--- OUTSIDE RECORDS SUMMARY | 2020-03-24 18:57 | CCD ---
Author Author [facility] Organization [facility] Address Unknown Phone Unavailable Support Name Relationship Address Phone Giuliano MALLOY Next Of Kin [address] [address] [place] [address] WILLY HAMMOND Next Of Kin Unknown REYNALDO CALERO Next Of Kin [address] [place] [address] [address] [place] [address] GUILLAUME HUSSEIN Next Of Kin [address] [place] [address] LORENA LLANES Next Of Kin Unknown Unavailable JUDY HAMMOND Next Of Kin [address] [place] [address] DR [address] [place] [address] JUDY CALERO Next Of Kin [address] [place] [address] PENELOPE HUSSEIN Next Of Kin NA Unknown DISABLED Next Of Kin Unknown Unavailable [place] [id number] DISABLE Next Of Kin Unknown Unavailable JUSTYN [place] [address] UE Next Of Kin Unknown Unavailable DISABILITY Next Of Kin X X, X X MARY MALLOY Next Of Kin [address] [facility] [address] [place] [address] [place] [id number] [facility] [address] [place] [address] Unavailable Neva Llanes ECON Unknown Guillaume Hussein ECON [address] [place] [address] Unavailable Mary Malloy ECON [address] [phone] Care Team Providers Care Infantryman Name Role Phone [facility], [facility] Unavailable Unavailable Jumalon, M Ludmila LOAN REPRESENTATIVE Unavailable Unavailable Jumalon, M Ludmila LOAN REPRESENTATIVE Unavailable Unavailable Jumalon, M Ludmila LOAN REPRESENTATIVE Unavailable Unavailable Jumalon, M Ludmila LOAN REPRESENTATIVE Unavailable Unavailable Jumalon, M Ludmila LOAN REPRESENTATIVE Unavailable Unavailable Jumalon, M Ludmila LOAN REPRESENTATIVE Unavailable Unavailable Jumalon, M Ludmila LOAN REPRESENTATIVE Unavailable Unavailable Jumalon, M Ludmila LOAN REPRESENTATIVE Unavailable Unavailable Jumalon, M Ludmila LOAN REPRESENTATIVE Unavailable Unavailable Jumalon, M Ludmila LOAN REPRESENTATIVE Unavailable Unavailable Jumalon, M Ludmila LOAN REPRESENTATIVE Unavailable Unavailable Jumalon, M Ludmila LOAN REPRESENTATIVE Unavailable Unavailable Jumalon, M Ludmila LOAN REPRESENTATIVE Unavailable Unavailable Jumalon, M Ludmila LOAN REPRESENTATIVE Unavailable Unavailable Jumalon, M Ludmila LOAN REPRESENTATIVE Unavailable Unavailable Jumalon, M Ludmila LOAN REPRESENTATIVE Unavailable Unavailable Jumalon, M Ludmila LOAN REPRESENTATIVE Unavailable Unavailable Jumalon, M Ludmila LOAN REPRESENTATIVE Unavailable Unavailable Jumalon, M Ludmila LOAN REPRESENTATIVE Unavailable Unavailable Jumalon, M Ludmila LOAN REPRESENTATIVE Unavailable Unavailable Jumalon, M Ludmila LOAN REPRESENTATIVE Unavailable Unavailable Jumalon, M Ludmila LOAN REPRESENTATIVE Unavailable Unavailable Jumalon, M Ludmila LOAN REPRESENTATIVE Unavailable Unavailable Jumalon, M Ludmila LOAN REPRESENTATIVE Unavailable Unavailable Jumalon, M Ludmila LOAN REPRESENTATIVE Unavailable Unavailable Jumalon, M Ludmila LOAN REPRESENTATIVE Unavailable Unavailable Jumalon, M Ludmila LOAN REPRESENTATIVE Unavailable Unavailable Jumalon, M Ludmila LOAN REPRESENTATIVE Unavailable Unavailable Diana Sherwood MD Unavailable Unavailable [...] Unavailable SlezkaGarthjtech Unavailable Unavailable SlemilikaGarthjtech Unavailable Unavailable SlezkaGarhtjtech Unavailable Unavailable SlemilikaRosendatech Unavailable Unavailable SlemilikaGarthjtech Unavailable Unavailable SlemilikaDiana MD Unavailable Unavailable SlezkaGarthjtech Unavailable Unavailable SlemilikaGarthjtech Unavailable Unavailable SlezkaGarthjtech Unavailable Unavailable SlemilikaRosendatech Unavailable Unavailable SleRosenda rileytech Unavailable Unavailable Diana Sherwood MD Unavailable Unavailable SleRosenda rileytech Unavailable Unavailable SleRosenda rileytech Unavailable Unavailable Garth Sherwoodjtech Unavailable Unavailable [...] Armstrong Unavailable Unavailable Natty Armstrong Unavailable Unavailable [place] Nattysiva Sky Unavailable Unavailable Nathaniel, Nattysiva Sky Unavailable Unavailable Cripple CreekNatty berrios Unavailable Unavailable Natty Armstrong Unavailable Unavailable [...] Unavailable SNEHA, P AUGIE MD Unavailable Unavailable NSEHA, P AUGIE MD Unavailable Unavailable SNEHA, P [...] AUGIE MD Unavailable Unavailable Jumalon, M Ludmila LOAN REPRESENTATIVE Unavailable Unavailable Jumalon, M Ludmila LOAN REPRESENTATIVE Unavailable Unavailable Jumalon, M Ludmila LOAN REPRESENTATIVE Unavailable Unavailable Jumalon, M Ludmila LOAN REPRESENTATIVE Unavailable Unavailable Jumalon, M Ludmila LOAN REPRESENTATIVE Unavailable Unavailable Jumalon, M Ludmila LOAN REPRESENTATIVE Unavailable Unavailable Jumalon, M Ludmila LOAN REPRESENTATIVE Unavailable Unavailable Jumalon, M Ludmila LOAN REPRESENTATIVE Unavailable Unavailable Jumalon, M Ludmila LOAN REPRESENTATIVE Unavailable Unavailable Jumalon, M Ludmila LOAN REPRESENTATIVE Unavailable Unavailable Jumalon, M Ludmila LOAN REPRESENTATIVE Unavailable Unavailable Jumalon, M Ludmila LOAN REPRESENTATIVE Unavailable Unavailable Jumalon, M Ludmila LOAN REPRESENTATIVE Unavailable Unavailable Jumalon, M Ludmila LOAN REPRESENTATIVE Unavailable Unavailable Jumalon, M Ludmila LOAN REPRESENTATIVE Unavailable Unavailable Jumalon, M Ludmila LOAN REPRESENTATIVE Unavailable Unavailable Jumalon, M Ludmila LOAN REPRESENTATIVE Unavailable Unavailable Jumalon, M Ludmila LOAN REPRESENTATIVE Unavailable Unavailable Jumalon, M Ludmila LOAN REPRESENTATIVE Unavailable Unavailable Jumalon, M Ludmila LOAN REPRESENTATIVE Unavailable Unavailable Jumalon, M Ludmila LOAN REPRESENTATIVE Unavailable Unavailable Jumalon, M Ludmila LOAN REPRESENTATIVE Unavailable Unavailable Jumalon, M Ludmila LOAN REPRESENTATIVE Unavailable Unavailable Jumalon, M Ludmila LOAN REPRESENTATIVE Unavailable Unavailable Jumalon, M Ludmila LOAN REPRESENTATIVE Unavailable Unavailable Jumalon, M Ludmila LOAN REPRESENTATIVE Unavailable Unavailable Jumalon, M Ludmila LOAN REPRESENTATIVE Unavailable Unavailable Danika Falanga, A Kavya LOAN REPRESENTATIVE Unavailable Unavailable [place] Falanga, A Kavya LOAN REPRESENTATIVE Unavailable Unavailable [place] Falanga, A Kavya LOAN REPRESENTATIVE Unavailable Unavailable [place] Falanga, A Kavya LOAN REPRESENTATIVE Unavailable Unavailable Danika Falanga, A Kavya LOAN REPRESENTATIVE Unavailable Unavailable Danika Falanga, A Kavya LOAN REPRESENTATIVE Unavailable Unavailable Danika Falanga, A Kavya LOAN REPRESENTATIVE Unavailable Unavailable [place] Falanga, A Kavya LOAN REPRESENTATIVE Unavailable Unavailable Danika Falanga, A Kavya LOAN REPRESENTATIVE Unavailable Unavailable [place] Falanga, A Kavya LOAN REPRESENTATIVE Unavailable Unavailable [place] Falanga, A Kavya LOAN REPRESENTATIVE Unavailable Unavailable [place] Falanga, A Kavya LOAN REPRESENTATIVE Unavailable Unavailable Danika Falanga, A Kavya LOAN REPRESENTATIVE Unavailable Unavailable [place] Falanga, A Kavya LOAN REPRESENTATIVE Unavailable Unavailable Danika Falanga, A Kavya LOAN REPRESENTATIVE Unavailable Unavailable [place] Falanga, A Kavya LOAN REPRESENTATIVE Unavailable Unavailable Danika Falanga, A Kavya LOAN REPRESENTATIVE Unavailable Unavailable Danika Falanga, A Kavya LOAN REPRESENTATIVE Unavailable Unavailable Danika Falanga, A Kavya LOAN REPRESENTATIVE Unavailable Unavailable Danika Falanga, A Kavya LOAN REPRESENTATIVE Unavailable Unavailable Danika Falanga, A Kavya LOAN REPRESENTATIVE Unavailable Unavailable [place]io[place] Falanga, A Kavya LOAN REPRESENTATIVE Unavailable Unavailable [place] Falanga, A Kavya LOAN REPRESENTATIVE Unavailable Unavailable Danika Falanga, A Kavya LOAN REPRESENTATIVE Unavailable Unavailable [place] Falanga, A Kavya LOAN REPRESENTATIVE Unavailable Unavailable Danika Falanga, A Kavya LOAN REPRESENTATIVE Unavailable Unavailable [place] Falanga, A Kavya LOAN REPRESENTATIVE Unavailable Unavailable [place] Falanga, A Kavya LOAN REPRESENTATIVE Unavailable Unavailable [place] Falanga, A Kavya LOAN REPRESENTATIVE Unavailable Unavailable [place] Falanga, A Kavya LOAN REPRESENTATIVE Unavailable Unavailable LIESDANA, Nilson KONG MD Unavailable [...] Unavailable REINDL, PAUL WHELAN Unavailable Unavailable REINDL, APUL WHELAN Unavailable Unavailable REINDL, PAUL WHELAN Unavailable [...] is protected by Article 27-F of the [facility] Public Health law. If you continue you may have access to information: Regarding HIV / AIDS; Provided by facilities licensed or operated by the [facility] Office of Mental Health; or Provided by the [facility] Office for People With Developmental Disabilities. If such information is present, then the following [facility] mandated warning applies: This information has been [...] law may result in a fine or halfway sentence or both. A general authorization for the release of medical or other information is NOT sufficient authorization for further disc losure. Allergies and Adverse Reactions Type Description Substance Reaction Status Data Source(s ) BRANDNAME [facility] BRANDNAME TYLENOL TYLENOL [facility] Drug allergy GABAPENTIN [facility]APENTIN [facility] Drug allergy METFORMIN METFORMIN [facility] Drug allergy OXYCODONE OXYCODONE [facility] Drug allergy CARISOPRODOL CARISOPRODOL [facility] Drug allergy DOXYCYCLINE DOXYCYCLINE [facility] Drug allergy FLUOCINOLONE FLUOCINOLONE [facility] Drug allergy PREDNISONE PREDNISONE [facility] Drug allergy AMITRIPTYLINE AMITRIPTYLINE [facility] Drug allergy SPIRONOLACTONE SPIRONOLACTONE [facility] Drug allergy CODEINE CODEINE [facility] CLASS QUINOLONES QUINOLONES [facility] CLASS NSAID NSAID [facility] Drug allergy Spironolactone Spironolactone Hives Active eCW1 ([facility]) Drug allergy Cipro Ciprofloxacin Hives Active eCW1 ([facility] hospital) Drug allergy Amitriptyline HCl Amitriptyline Throat swelling Active eCW1 ([facility]) Drug allergy Tramadol HCl Tramadol Throat swelling Active eCW1 ([facility]) Drug allergy IBU Ibuprofen Kidneys Active eCW1 ([facility]) Drug allergy Percocet acetaminophen / oxycodone facial swelling Ac tive eCW1 ([facility]) DRUG INGREDI TRAMADOL Tramadol Swelling [facility] DRUG INGREDI GABAPENTIN GABAPENTIN [facility] DRUG INGREDI CARISOPRODOL CARISOPRODOL [facility] Soma Soma Carisoprodol 250 MG Oral Tablet [Soma] Rash Active eCW1 ([facility]) Family History Family Member Name Family Member Gender Family Member Status Date o f Status Description Data Source(s) Unknown Unknown Problem MEDENT ([facility], ) Encounters Encounter Providers Location Date Indications Data Source(s ) Outpatient Attender: [facility] 03/08/2020 09:5 0:00 PM [facility] Inpatient Attender: Kavya hawkins FNPAttender: NATASHA MONTERO MDConsultant: STAFF NON 03/06/2020 10:10:00 AM EST - 03/12/2020 12:50:00 PM [facility] Patient discharged. Outpatient Attender: Kavya BUENROSTRO 03/04/2020 12:24:00 PM EST - 03/06/2020 10:10:00 AM [facility] [place] [address] [facility] [address] 03/02/2020 12:00:00 AM EST eCW1 ([facility]) [place] [address] [facility] [address] 12/23/2019 12:00:00 AM EDT eCW1 ([facility]) [place] [address] [facility] [address] 12/23/2019 12:00:00 AM EDT eCW1 ([facility]) [place] [address] [facility] [address] 12/20/2019 12:00:00 AM EDT [facility] Outpatient Attender: Diana Sherwood MD SJP.[email or web address].[email or web address] 09/11 12:00:00 AM EDT - 10/07/2019 04:43:57 PM EDT [facility] Unknown [address] [place] [address], [place] [address] 10/01/2019 12:00:00 AM EDT [facility]CW[facility]) Outpatient Referrer: DILAN HARP MD 09/21/2019 12:00:[address] [address] 09/10/2019 12:00:00 AM EDT [facility]CW1 [facility]) Outpatient Referrer: Ludmila BUENROSTRO 07/25/2019 07:00:0 0 PM EDT [facility] [address] [address] 07/17/2019 12:00:00 AM EDT eCW1 [facility]) [address] [address] 07/16/2019 12:00:00 AM EDT [facility]CW1 [facility]) Outpatient Attender: AUGIE HOOVER MD [id number] 07/10/2019 12:00:00 A M [facility] Outpatient Referrer: Ludmila Tomlinson [facility] 06/28/2019 04:47:0 0 AM EDT [facility] [address] [address] 06/24/2019 12:00:00 AM EDT eCW1 ([facility]) [address] [address] 06/18/2019 12:00:00 AM EDT eCW1 [facility]) [address] [address] 06/12/2019 12:00:00 AM EDT eCW1 ([facility]) [address] [address] 06/10/2019 12:00:00 AM EDT eCW1 ([facility]) [address] [address] 06/10/2019 12:00:00 AM EDT eCW1 ([facility]) [address] [address] 06/10/2019 12:00:00 AM EDT eCW1 ([facility]) [address] [address] 06/05/2019 12:00:00 AM EDT eCW1 ([facility]) [address] [address] 05/27/2019 12:00:00 AM EDT eCW1 ([facility]) [address] [address] 05/24/2019 12:00:00 AM EDT eCW1 ([facility]) [address] [address] 05/20/2019 12:00:00 AM EDT eCW1 [facility] [address] [address] 05/17/2019 12:00:00 AM EST eCW1 ([facility] Outpatient Referrer: Ludmila Tomlinson LOAN REPRESENTATIVE 05/07/2019 02:21:0 0 PM EST [facility] [address] [address] 04/24/2019 12:00:00 AM EST eCW1 ([facility] [address] [address] 04/15/2019 12:00:00 AM EST eCW1 ([facility]) Outpatient Referrer: Ludmila COLBYP 04/12/2019 09:28:0 0 AM EST [facility] Outpatient Attender: AUGIE HOOVER MD [id number] 020 12:00:00 AM EST - 04/12/2019 12:20:12 PM EST Rheumatoid arthritis without rheumatoid factor, unspecified site [facility] Rheumatoid arthritis without rheumatoid factor, unspecified site [address] [address] 04/10/2019 12:00:00 AM EST eCW1 ([facility]) [address] [address] 04/08/2019 12:00:00 AM EST eCW1 ([facility]) [address] [address] 04/03/2019 12:00:00 AM EST eCW1 ([facility]) Outpatient Attender: PAUL Murphy/Michelle/Rein dl 03/26/2019 07:30:00 AM EST MEDENT ([facility]) Outpatient Attender: Jose Daniel Murphy/Vasyl 03/25/2019 09:15:00 AM EST MEDENT ([facility]) Outpatient Attender: MELIZA LANDRUM MDAdmi tter: MELIZA LANDRUM MDReferrer: MELIZA LANDRUM MD 03/20/2019 12:00:00 AM EST - 03/20/2019 11:59:00 PM EST Multiple myeloma not having achieved remission [facility] Multiple myeloma not having achieved rem ission Outpatient Referrer: Ludmila COLBYP 03/14/2019 07:31:0 0 PM EST [facility] [address] [address] 03/08/2019 12:00:00 AM EST eCW1 ([facility]) Outpatient Attender: AUGIE HOOVER MD [id number] 019 12:00:00 AM EST - 03/01/2019 03:46:30 PM EST [address] [address] 03/01/2019 12:00:00 AM EST eCW1 ([facility]) Outpatient Attender: AUGIE HOOVER MD 03/01/2019 12:00:00 AM EST [address] [address] 02/28/2019 12:00:00 AM EST eCW1 ([facility]) Outpatient Attender: Jose Daniel Murphy/Luca/Eduardo/Jennifer 02/26/2019 09:00:00 AM EST MEDENT ([facility] [address] [address] 02/26/2019 12:00:00 AM EST eCW1 ([facility]) [address] [address] 02/26/2019 12:00:00 AM EST eCW1 ([facility]) [address] [place] [address] 02/25/2019 12:00:00 AM EST eCW1 ([facility]) [address] [address] 02/22/2019 12:00:00 AM EST eCW1 ([facility]) Ludmila Tomlinson, OPTICAL BRIGHTENER MAKER HELPER: [address], [place] [address], Ph. Attender: Ludmila Tomlinson [facility] [place] [facility] - Main Office 02/20/2019 12:00:00 AM EST ATHE NA ([facility]) [address] [address] 02/19/2019 12:00:00 AM EST eCW1 ([facility]) [address] [address] 02/19/2019 12:00:00 AM EST eCW1 ([facility]) [address] [address] 02/15/2019 12:00:00 AM EST eCW1 ([facility]) [address] [address] 02/14/2019 12:00:00 AM EST eCW1 ([facility]) Outpatient Referrer: Ludmilasiva Tomlinson [facility] 02/13/2019 04:58:0 0 AM EST [facility] Ludmila Tomlinson, OPTICAL BRIGHTENER MAKER HELPER: [address], [place] [address], Ph. Attender: Ludmila Tomlinson [facility] 02/13/2019 12:00:00 AM EST ATHE NA ([facility]) Ludmila Tomlinson, OPTICAL BRIGHTENER MAKER HELPER: [address], [place] [address], Ph. Attender: Ludmila Tomlinson [facility] 02/13/2019 12:00:00 AM EST ATHE NA ([facility]) [address] [address] 02/11/2019 12:00:00 AM EST eCW1 ([facility]) [address] [address] 02/05/2019 12:00:00 AM EST eCW1 ([facility]) Immunizations Vaccine Date Status Description Data Source(s) influenza, recombinant, quadrIvalent,injectable, prese rvative free 12/20/2019 10:30:00 AM EDT completed eCW1 ([facility]) influenza, recombinant, quadrIvalent,injectable, prese rvative free 12/20/2019 10:30:00 AM EDT completed eCW1 ([facility]) influenza, recombinant, quadrIvalent,injectable, prese rvative free 12/20/2019 10:30:00 AM EDT completed eCW1 ([facility]) influenza, recombinant, quadrIvalent,injectable, prese rvative free 12/20/2019 10:30:00 AM EDT completed eCW1 ([facility]) Medications Medication Brand Name Start Date Product [...] Tizanidine HCl 2 MG eCW1 ([facility]) 2 mg 12/20/2019 12:00:00 AM EDT tablet 90 TAKE ONE TABLET BY MOUTH THREE TIMES A DAY NEEDED TAKE ONE TABLET BY MOUTH THREE TIMES A DAY NEEDED S OLD: 12/20/2019 [facility] Trazodone Hydrochloride 50 MG Oral Tablet TraZODone HC l 50 MG TraZODone HCl 50 MG 12/20/2019 12:00:00 AM EDT 0.51 {tablet_at_bedtime_as_needed} active TraZODone HCl 50 MG eCW1 ([facility]) Trazodone Hydrochloride 50 MG Oral Tablet TraZODone HC l 50 MG TraZODone HCl 50 MG 12/20/2019 12:00:00 AM EDT 0.51 {tablet_at_bedtime_as_needed} active TraZODone HCl 50 MG eCW1 ([facility]) tizanidine 2 MG Oral Tablet Tizanidine HCl 2 MG Tizanidine H Cl 2 MG 12/20/2019 12:00:00 AM EDT 1.0 {tablet_as_needed} active Tizanidine HCl 2 MG eCW1 ([facility]) tizanidine 2 MG Oral Tablet Tizanidine HCl 2 MG Tizanidine H Cl 2 MG 12/20/2019 12:00:00 AM EDT 1.0 {tablet_as_needed} active Tizanidine HCl 2 MG eCW1 ([facility]) tizanidine 2 MG Oral Tablet Tizanidine HCl 2 MG Tizanidine H Cl 2 MG 12/20/2019 12:00:00 AM EDT 1.0 {tablet_as_needed} active Tizanidine HCl 2 MG eCW1 ([facility]) Trazodone Hydrochloride 50 MG Oral Tablet TraZODone HC l 50 MG TraZODone HCl 50 MG 12/20/2019 12:00:00 AM EDT 0.51 {tablet_at_bedtime_as_needed} active TraZODone HCl 50 MG eCW1 ([facility]) Trazodone Hydrochloride 50 MG Oral Tablet TraZODone HC l 50 MG TraZODone HCl 50 MG 12/20/2019 12:00:00 AM EDT 0.51 {tablet_at_bedtime_as_needed} active TraZODone HCl 50 MG eCW1 ([facility]) 50 mg 12/20/2019 12:00:00 AM EDT tablet [...] Atorvastatin Calcium 80 MG eCW1 ([facility]) 24 HR Metformin hydrochloride 750 MG Ext ended Release Oral Tablet MetFORMIN HCl ER 750 MG MetFORMIN HCl ER 750 MG 09/20/2019 12:00:00 AM EDT 1.0 {tablet_with_evening_meal} suspended Met FORMIN HCl ER 750 MG eCW1 ([facility]) MetFORMIN HCl ER 750 MG MetFORMIN HCl ER 750 MG 09/20/2019 12:00:00 AM EDT 1.0 {tablet_with_evening_meal} suspended Me tFORMIN HCl ER 750 MG eCW1 ([facility]) MetFORMIN HCl ER 750 MG MetFORMIN HCl ER 750 MG 09/20/2019 12:00:00 AM EDT 1.0 {tablet_with_evening_meal} suspended Me tFORMIN HCl ER 750 MG eCW1 ([facility]) atorvastatin 80 MG Oral Tablet ATORVASTATIN CALCIUM 09/20/2019 1 2:00:00 AM EDT tablet 90 TAKE 1 TABLET BY MOUTH ONCE A DAY TAKE 1 TABLET BY MOUTH ONCE A DAY SOLD: 09/20/2019 [facility] atorvastatin 80 MG Oral Tablet Atorvastatin Calcium 80 MG Atorvastatin Calcium 80 MG 09/20/2019 12:00:00 AM EDT 1.0 {tablet} activ e Atorvastatin Calcium 80 MG eCW1 ([facility]) atorvastatin 80 MG Oral Tablet Atorvastatin Calcium 80 MG Atorvastatin Calcium 80 MG 09/20/2019 12:00:00 AM EDT 1.0 {tablet} activ e Atorvastatin Calcium 80 MG eCW1 ([facility]) atorvastatin 80 MG Oral Tablet Atorvastatin Calcium 80 MG Atorvastatin Calcium 80 MG 09/20/2019 12:00:00 AM EDT 1.0 {tablet} activ e Atorvastatin Calcium 80 MG eCW1 ([facility]) MetFORMIN HCl ER 750 MG MetFORMIN HCl ER 750 MG 09/20/2019 12:00:00 AM EDT 1.0 {tablet_with_evening_meal} suspended Me tFORMIN HCl ER 750 MG eCW1 ([facility]) 750 mg 09/20/2019 12:00:00 AM EDT tablet extended release 24 hr 180 TAKE ONE TABLET BY MOUTH TWICE A DAY TAKE ONE TABLET BY MOUTH TWICE A DAY SOLD: 09/20/2019 [facility] MetFORMIN HCl ER 750 MG MetFORMIN HCl ER 750 MG 09/20/2019 12:00:00 AM EDT 1.0 {tablet_with_evening_meal} active MetF ORMIN HCl ER 750 MG eCW1 ([facility]) atorvastatin 80 MG Oral Tablet Atorvastatin Calcium 80 MG Atorvastatin Calcium 80 MG 09/20/2019 12:00:00 AM EDT 1.0 {tablet} activ e Atorvastatin Calcium 80 MG eCW1 ([facility]) Potassium Chloride 10 MEQ Extended Release Oral Tablet POTAS SIUM CHLORIDE 09/16/2019 12:00:00 AM EDT tablet extended release 240 TAKE FOUR TABLETS BY MOUTH TWICE A DAY TAKE FOUR TABLETS BY MOUTH TWICE A DAY SOLD: 09/16/2019 [facility] 4 mg 08/17/2019 12:00:00 AM EDT tablet 40 TAKE 10 TABLETS [40MG] BY MOUTH ON MONDAYS TAKE 10 TABLETS [40MG] BY MOUTH ON MONDAYS SOLD: 08/17/2019 [facility] 4 mg 08/17/2019 12:00:00 AM EDT tablet 40 TAKE 10 TABLETS [40MG] BY MOUTH ON MONDAYS TAKE 10 TABLETS [40MG] BY MOUTH ON MONDAYS SOLD: 01/01/2020 [facility] 40 mg 08/14/2019 12:00:00 AM EDT tablet,delayed release (DR/EC) 60 TAKE ONE TABLET BY MOUTH TWICE A DAY [REFLUX DIFFICULT SWALLOWING] TAKE ONE TABLET BY MOUTH TWICE A DAY [REFLUX DIFFICULT SWALLOWING] SOLD: 11/13/2019 [facility] pantoprazole 40 MG Delayed Release Oral Tablet PANTOPRAZOLE SODIUM 08/14/2019 12:00:00 AM EDT tablet,delayed release (DR/EC) 60 T MATTI ONE TABLET BY MOUTH TWICE A DAY [REFLUX DIFFICULT SWALLOWING] TAKE ONE TABLET BY MOUTH TWICE A DAY [REFLUX DIFFICULT SWALLOWING] SOLD: 08/14/2019 [facility] 40 mg 08/14/2019 12:00:00 AM EDT [...] active Misc. Devices - eCW1 ([facility]) Misc. Devices - UNK 07/17/2019 12:00:00 AM EDT active Misc. Devices - eCW1 ([facility]) Misc. Devices - UNK 07/17/2019 12:00:00 AM EDT active Misc. Devices - eCW1 ([facility]) Misc. Devices - UNK 07/17/2019 12:00:00 AM EDT active Misc. Devices - eCW1 ([facility]) Misc. Devices - UNK 07/17/2019 12:00:00 AM EDT ac tive as directed eCW1 ([facility]) Misc. Devices - UNK 07/17/2019 12:00:00 AM EDT active Misc. Devices - eCW1 ([facility]) 50 mg 07/15/2019 12:00:00 AM EDT tablet [...] BY MOUTH TWICE A DAY SOLD: 06/20/2019 [facility] 10 mEq 06/20/2019 12:00:00 AM EDT [...] MOUTH TWICE A DAY SOLD: 07/14/2019 [facility] pantoprazole 40 MG Delayed Release Oral Tablet Pantoprazole Sodium 03/26/2019 12:00:00 AM EST ORAL active M EDENT ([facility], ) Magnesium Hydroxide 80 MG/ML Oral Suspension Milk Of Magnesi a 03/26/2019 12:00:00 AM EST ORAL active M EDENT ([facility], ) POLYETHYLENE GLYCOL 3350 105 MG/ML / Pot assium Chloride 0.71759 MEQ/ML / Sodium Bicarbonate 0.017 MEQ/ML / Sodium Chloride 0.0479 MEQ/ML Oral Solution [TriLyte] Trilyte 03/26/2019 12:00:00 AM EST active MEDENT ([facility], ) 40 mg 03/26/2019 12:00:00 AM [...] Once, Mon03/01/19 at 1545, For 1 dose [facility] Medication administered onsite 100 mg 02/28/2019 [...] MOUTH TWICE A DAY SOLD: 02/19/2019 [facility] Famotidine 40 MG Oral Tablet FAMOTIDINE 02/19/2019 12:00:00 AM EST tab let 30 TAKE 1 TABLET BY MOUTH ONCE A DAY AT BEDTIME TAKE 1 TABLET BY MOUTH ONCE A DAY AT BEDTIME SOLD: 02/19/2019 [facility] Famotidine 40 MG Oral Tablet Famotidine 40 MG 02/19/2019 12:00:[address] active 1 tablet at bedtime eCW1 ([facility]) Famotidine 40 MG Oral Tablet Famotidine 40 MG 02/19/2019 12:00:[address] active 1 tablet at bedtime eCW1 ([facility]) 1 gram 02/14/2019 12:00:00 AM EST tablet 120 TAKE ONE TABLET BY MOUTH FOUR TIMES A DAY TAKE ONE TABLET BY MOUTH FOUR TIMES A DAY SOLD: 02/14/2019 [facility] Lactulose 667 MG/ML Oral Solution [Enulose] Enulose 10 GM/15ML Enulose 10 GM/15ML 02/11/2019 12:00:00 AM EST active 15 ml eCW1 ([facility]) Lactulose 667 MG/ML Oral Solution [Enulose] Enulose 10 GM/15ML Enulose 10 GM/15ML 02/11/2019 12:00:00 AM EST active 15 ml eCW1 ([facility]) Lactulose 667 MG/ML Oral Solution [Enulose] Enulose 10 GM/15ML Enulose 10 GM/15ML 02/11/2019 12:00:00 AM EST active 15 ml eCW1 ([facility]) Lactulose 667 MG/ML Oral Solution [Enulose] Enulose 10 GM/15ML Enulose 10 GM/15ML 02/11/2019 12:00:00 AM EST active 15 ml eCW1 ([facility]) Lactulose 667 MG/ML Oral Solution [Enulose] Enulose 10 GM/15ML Enulose 10 GM/15ML 02/11/2019 12:00:00 AM EST active 15 ml eCW1 ([facility]) 17 gram/dose 02/11/2019 12:00:00 AM EST powder [...] 8 ounces of fluid eCW1 ([facility]) MiraLax - UNK 02/05/2019 12:00:00 AM EST 1 .0 {packet_mixed_with_8_ounces_of_fluid} active MiraLax - eCW1 ([facility]) POLYETHYLENE GLYCOL 3350 142 MG/ML Oral Solution [Miralax] M iraLax - MiraLax - 02/05/2019 12:00:00 AM EST active 1 packet mixed with 8 ounces of fluid eCW1 ([facility]) POLYETHYLENE GLYCOL 3350 142 MG/ML Oral Solution [Miralax] M iraLax - MiraLax - 02/05/2019 12:00:00 AM EST active 1 packet mixed with 8 ounces of fluid eCW1 ([facility]) MiraLax - UNK 02/05/2019 12:00:00 AM EST 1 .0 {packet_mixed_with_8_ounces_of_fluid} active MiraLax - eCW1 ([facility]) POLYETHYLENE GLYCOL 3350 142 MG/ML Oral Solution [Miralax] M iraLax - MiraLax - 02/05/2019 12:00:00 AM EST active 1 packet mixed with 8 ounces of fluid eCW1 ([facility]) 800 mg 02/05/2019 12:00:00 AM EST tablet [...] 8 ounces of fluid eCW1 ([facility]) MiraLax - UNK 02/05/2019 12:00:00 AM EST 1 .0 {packet_mixed_with_8_ounces_of_fluid} active MiraLax - eCW1 ([facility]) Cimetidine 800 MG Oral Tablet Cimetidine 800 MG 02/05/2019 12:00:00 A M EST active 1 tablet at bedtime eCW1 ([facility]) MiraLax - UNK 02/05/2019 12:00:00 AM EST 1 .0 {packet_mixed_with_8_ounces_of_fluid} active MiraLax - eCW1 ([facility]) 800 mg 02/05/2019 12:00:00 AM EST tablet 60 TAKE ONE TABLET BY MOUTH TWICE A DAY TAKE ONE TABLET BY MOUTH TWICE A DAY SOLD: 07/02/2019 [facility] POLYETHYLENE GLYCOL 3350 142 MG/ML Oral Solution [Miralax] M iraLax - MiraLax - 02/05/2019 12:00:00 AM EST active 1 packet mixed with 8 ounces of fluid eCW1 ([facility]) POLYETHYLENE GLYCOL 3350 142 MG/ML Oral Solution [Miralax] M iraLax - MiraLax - 02/05/2019 12:00:00 AM EST active 1 packet mixed with 8 ounces of fluid eCW1 ([facility]) MiraLax - UNK 02/05/2019 12:00:00 AM EST 1 .0 {packet_mixed_with_8_ounces_of_fluid} active MiraLax - eCW1 ([facility]) 40 mg 12/18/2018 12:00:00 AM EDT tablet [...] 100 MG Oral Tablet KIMANI ([facility]) Lactulose 667 MG/ML Oral Solution lactulose 10 gram/15 mL oral solution lactulose 10 gram/15 mL oral solution completed Lactulose 667 MG/ML Oral Solution KIMANI ([facility]) Lactulose 667 MG/ML Oral Solution lactulose 10 gram/15 mL oral solution lactulose 10 gram/15 mL oral solution completed Lactulose 667 MG/ML Oral Solution KIMANI ([facility]) pantoprazole 40 MG Delayed Release Oral Tablet pantoprazole 40 mg tablet,delayed release pantoprazole 40 mg tablet,delayed release completed pantoprazole 40 MG Delayed Release Oral Tablet KIMANI ([facility]) Esomeprazole 20 MG Delayed Release Oral Capsule esomeprazole magnesium 20 mg capsule,delayed release esomeprazole magnesium 20 mg capsule,delayed release completed Esomeprazole 2 0 MG Delayed Release Oral Capsule KIMANI ([facility]) pantoprazole 40 MG Delayed Release Oral Tablet pantoprazole 40 mg tablet,delayed release pantoprazole 40 mg tablet,delayed release completed pantoprazole 40 MG Delayed Release Oral Tablet KIMANI ([facility]) Allopurinol 100 MG Oral Tablet allopurinol 100 mg tabl et allopurinol 100 mg tablet completed Allopurinol 100 MG Oral Tablet KIMANI ([facility]) Cimetidine 800 MG Oral Tablet cimetidine 800 mg tablet cimet idine 800 mg tablet completed Cimetidine 800 MG Oral Tablet KIMANI ([facility]) Insurance Providers Payer name Policy type / Coverage type Policy ID Covered green party ID Covered green party's relationship to ling Policy Ling Plan Information EMEDNY [id number] SP [id number] [facility] [id number] SP [id number] [facility] [id number] SP [id number] [facility] MEDICARE COMPLETE -PHYS [id number] 18 [id number] [facility] MEDICARE COMPLETE - O/P [id number] 18 [id number] [facility] MEDICARE COMPLETE I/P [id number] 18 [id number] MEDICARE [id number] SP [id number] [facility] [id number] S [id number] MEDICAID [id number] S [id number] MEDICAID [id number] Lianne [id number] [facility] MEDICAID [id number] Lianne [id number] [facility] DUAL G [id number] Self [id number] MEDICAID M [id number] Self [id number] [facility] I [id number] Self [id number] MEDICAID [id number] SP [id number] MEDICARE COMPLETE [id number] SP [id number] [facility] O [id number] S [id number] MEDICAID [id number] [id number] [id number] SP [id number] [facility] MEDICARE [id number] SP [id number] [facility] DUAL G [id number] Self [id number] ANSI-Not a Secondary Insurance [id number] ANSI-Medicaid [id number] ANSI-Medicare Part B [id number] ANSI-Not a Secondary Insurance [id number] ANSI-Medicaid [id number] ANSI-Medicare Part B [id number] ANSI-Medicare Part B [id number] ANSI-Medicaid [id number] ANSI-Not a Secondary Insurance [id number] ANSI-Medicaid [id number] ANSI-Medicare Part B [id number] ANSI-Not a Secondary Insurance [id number] ANSI-Medicaid [id number] ANSI-Not a Secondary Insurance [id number] ANSI-Medicare Part B [id number] ANSI-Not a Secondary Insurance [id number] ANSI-Medicare Part B [id number] ANSI-Medicaid [id number] ANSI-Medicare Part B [id number] ANSI-Not a Secondary Insurance [id number] ANSI-Medicaid [id number] ANSI-Not a Secondary Insurance [id number] ANSI-Medicare Part B [id number] ANSI-Medicaid [id number] ANSI-Not a Secondary Insurance [id number] ANSI-Medicare Part B [id number] ANSI-Medicaid [id number] ANSI-Not a Secondary Insurance [id number] ANSI-Medicare Part B [id number] ANSI-Medicaid [id number] ANSI-Not a Secondary Insurance [id number] ANSI-Medicare Part B [id number] ANSI-Medicaid [id number] MEDICAID [id number] SP [id number] [facility] [id number] SP [id number] [id number] UNITED MEDICARE COMPLETE G [id number] Self [id number] [place] [id number] Self [id number] Medicare [facility] Medicare Primary [id number] [facility] Medigap Part B [id number] Self [id number] [facility] [employer]/Medicare Commercial [id number] Self [id number] [place] [id number] Self [id number] ANSI-Medicare Part B [id number] ANSI-Not a Secondary Insurance [id number] ANSI-Medicaid [id number] MEDICARE [id number] SP [id number] ANSI-Medicaid [id number] ANSI-Medicare Part B [id number] ANSI-Medicare Part B [id number] ANSI-Medicare Part B [id number] ANSI-Medicare Part B [id number] ANSI-Medicaid [id number] ANSI-Medicare Part B [id number] ANSI-Medicaid [id number] ANSI-Medicare Part B [id number] ANSI-Medicaid [id number] ANSI-Medicare Part B [id number] ANSI-Medicare Part B [id number] ANSI-Medicare Part B [id number] ANSI-Medicaid [id number] ANSI-Medicare Part B [id number] ANSI-Medicare Part B [id number] ANSI-Medicaid [id number] ANSI-Medicare Part B [id number] ANSI-Medicaid [id number] ANSI-Medicare Part B [id number] ANSI-Medicare Part B [id number] [facility] O [id number] S [id number] ANSI-Medicare Part B [id number] ANSI-Medicare Part B [id number] ANSI-Medicaid [id number] ANSI-Medicaid [id number] ANSI-Medicare Part B [id number] ANSI-Medicare Part B [id number] [facility] [id number] SP [id number] MEDICARE [id number] SP [id number] A ANSI-Medicaid [id number] ANSI-Medicare Part B [id number] ANSI-Medicare Part B [id number] MEDICARE C [id number] S [id number] MEDICARE C [id number] S [id number] A ANSI-Medicaid [id number] ANSI-Medicare Part B [id number] ANSI-Medicare Part B [id number] ANSI-Medicare Part B [id number] ANSI-Medicare Part B [id number] ANSI-Medicaid [id number] ANSI-Medicaid [id number] ANSI-Medicare Part B [id number] ANSI-Medicare Part B [id number] [facility] [id number] SP [id number] MEDICARE COMPLETE [id number] SP [id number] MEDICARE [id number] SP [id number] A MEDICARE COMPLETE [id number] SP [id number] [place] Medig[place] Part B [id number] Self [id number] [facility] Medigap Part B [id number] Self [id number] Medicare - [place] Medicare Primary [id number] Self [id number] [place] Medig[place] Part B [id number] Self [id number] [employer] Commercial [id number] Self [id number] Unitedhealthcare Medicare Commercial [id number] Self [id number] MEDICARE COMPLETE [id number] SP [id number] [place] Medig[place] Part B [id number] Self [id number] Unitedhealthcare Medicare Commercial [id number] Self [id number] MEDICARE COMPLETE [id number] SP [id number] [place] Medig[place] Part B [id number] Self [id number] [facility] Medigap Part B [id number] Self [id number] Medicare - [place] Medicare Primary [id number] Self [id number] [place] Medig[place] Part B [id number] Self [id number] MEDICAID [id number] SP [id number] MEDICARE COMPLETE [id number] SP [id number] [facility] UNITED MEDICARE COMPLETE G [id number] Self [id number] MEDICARE COMPLETE [id number] SP [id number] UNITED HEALTHCARE MCRO [id number] SP [id number] Medicaid [place] Medigap Part B Self Unitedhealthcare Medicare Commercial [id number] Self [id number] MEDICARE COMPLETE [id number] SP [id number] MEDICARE COMPLETE-[facility] O [id number] S [id number] United [employer] (Medicare) Medigap Part B Self [place] Medigap Part B Self United [employer] ([facility]) Commercial Self UNITED HEALTHCARE MCRHMO [id number] SP [id number] MEDICARE [id number] SP [id number] A MEDICARE COMPLETE [id number] SP [id number] MEDICARE A [id number] Self [id number] MEDICAID [id number] S [id number] MEDICARE OUTPATIENT M [id number] S [id number] Problems, Conditions, and Diagnoses Code Display Name Description Problem Type Effective Dates Data Source(s) F51.04 [id number] Psychophysiologic insomnia Problem 0 12:00:00 AM EDT eCW1 ([facility]) C90.00 [id number] Multiple myeloma not having achieved grant ssion Problem 09/19/2019 12:00:00 AM EDT eCW1 ([facility]) G44.209 [id number] Tension headache Problem 04/15/2019 12:00:00 AM EST eCW1 ([facility]) G44.209 [id number] Tension headache Problem 04/15/2019 12:00:00 AM EST eCW1 ([facility]) K57.30 [id number] Diverticulosis of colon without diverticu litis Problem 02/05/2019 12:00:00 AM EST eCW1 ([facility]) K59.01 [id number] Slow transit constipation Problem 02/05/2019 12:00:00 AM EST eCW1 ([facility]) N20.0 66198427 Nephrolithiasis Problem 02/05/2019 12:00:00 AM EST eCW1 ([facility]) K59.01 86131508 Slow transit constipation Problem 02/05/2019 12:00:00 AM EST eCW1 ([facility]) K57.30 [id number] Diverticulosis of colon without diverticu litis Problem 02/05/2019 12:00:00 AM EST eCW1 ([facility]) N20.0 56307139 Nephrolithiasis Problem 02/05/2019 12:00:00 AM EST eCW1 ([facility]) R531 Weakness Weakness Diagnosis 03/06/2020 10:10:00 AM [facility] R95604 Other pancytopenia Other pancytopenia Diagnosis 10:10:00 AM [facility] Z5111 Encounter for antineoplastic chemotherap y Encounter for antineoplastic chemotherapy Diagnosis 03/04/2020 12:24:00 PM [facility] C9000 Multiple myeloma not having achieved rem ission Multiple myeloma not having achieved remission Diagnosis 03/04/2020 12:24:00 PM [facility] R7303 Prediabetes Prediabetes Diagnosis 03/04/2020 12:24:00 PM [facility] I10 Essential (primary) hypertension Essential (primary) h ypertension Diagnosis 03/04/2020 12:24:00 PM [facility] E876 Hypokalemia Hypokalemia Diagnosis 03/04/2020 12:24:00 PM [facility] E8342 Hypomagnesemia Hypomagnesemia Diagnosis 03/04/2020 12:24: 00 PM [facility] R197 Diarrhea, unspecified Diarrhea, unspecified Diagnosis 03/04/2020 12:24:00 PM [facility] Z1159 Encounter for screening for other viral diseases Encounter for screening for other viral diseases Diagnosis 03/04/2020 12:24:00 PM [facility] R112 Nausea with vomiting, unspecified Nausea with vo miting, unspecified Diagnosis 03/04/2020 12:24:00 PM [facility] E860 Dehydration Dehydration Diagnosis 03/04/2020 12:24:00 PM [facility] E78.2 Mixed hyperlipidemia Mixed hyperlipidemia Diagnosis 10/07/2019 03:58:21 PM EDT [facility] I35.0 Nonrheumatic aortic (valve) stenosis Nonrheumati c aortic (valve) stenosis Diagnosis 10/07/2019 03:58:21 PM EDT [facility] H53.2 Diplopia Diplopia Diagnosis 10/07/2019 03:58:21 PM ED T [facility] I10 Essential (primary) hypertension Essential (primary) h ypertension Diagnosis 10/07/2019 03:58:21 PM EDT [facility] I25.10 Atherosclerotic heart diseas e of [place] coronary artery without angina pectoris Atherosclerotic heart disease of [place] Diagnosis 10/07/2019 03:58:21 PM EDT [facility] M10.9 Gout, unspecified Gout, unspecified Diagnosis 04/12/2019 11:36:51 AM [facility] R76.12 Nonspecific reaction to cell mediated immunity measurement of gamma interferon antigen response without active tuberculosis Nonspecific reaction to cell mediated immunity measurement of gamma interferon antigen response without active tuberculosis Diagnosis 04/12/2019 11:36:51 AM [facility] C90.00 Multiple myeloma not having achieved rem ission Multiple myeloma not having achieved remission Diagnosis 03/20/2019 01:25:42 PM [facility] C90.0 C90.0 Diagnosis 03/20/2019 01:25:42 PM [facility] Surgeries/Procedures Procedure Description Date Indications Data Source(s) Computerized Tomography (CT Scan) of Head Computerized Tomography (CT Scan) of Head 03/10/2020 12:00:00 AM [facility] Plain Radiography of Chest Plain Radiography of Chest 2019 12:00:00 AM [facility] Introduction of Electrolytic and Water B alance Substance into Peripheral Vein, Percutaneous Approach Introduction of Electrolytic and Water B alance Substance into Peripheral Vein, Percutaneous Approach 03/06/2020 12:00:00 AM [facility] Monitoring of Cardiac Electrical Activity, External Ap proach Monitoring of Cardiac Electrical Activity, External Approach 03/06/2020 12:00:00 AM [facility] Immunization: Flublok Quadrivalent (18 years & older) 0.5mL IM (Influenza) 12/20/2019 12:00:00 AM EDT eCW1 ([facility]) Endoscopy Upper GI Biopsy 10/04/2019 12:00:00 AM EDT MEDENT ([facility], ) Colonoscopy W/ Poly 10/04/2019 12:00:00 AM EDT MEDENT ([facility], ) Office Visit, Est Pt., Level 4 PC 07/17/2019 12:00:00 AM EDT eCW1 ([facility]) Office Visit, Est Pt., Level 4 FC 07/17/2019 12:00:00 AM EDT eCW1 ([facility]) Medicare, Tricare, [place], PC-INTERPRETATION AND REPORT 07/17/2019 12:00:00 AM EDT eCW1 ([facility]) Medicare, Tricare, [place], FC-ELECTROCARDIOGRAM, TRACING ON LY 07/17/2019 12:00:00 AM EDT eCW1 ([facility]) PHYSICIAN TELEPHONE EVALUATION 11-20 MIN 06/10/2019 12 :00:00 AM EDT eCW1 ([facility]) FLOW CYTOMETRY CELL CYCLE/DNA SHIMA LEUKEMIA / LYMPHOM A PHENOTYPE, PERIPHERAL BLOOD Routine 03/20/2019 10:25 AM EST 03/20/2019 03:25 :00 PM [facility] Endoscopy Upper GI Biopsy 03/11/2019 12:00:00 AM EST MEDENT ([facility]) Office Visit, Est Pt., Level 2 FC 03/08/2019 12:00:00 AM EST eCW1 ([facility]) Office Visit, Est Pt., Level 3 PC 03/08/2019 12:00:00 AM EST eCW1 ([facility]) Results ID Date Data Source [id number] 03/12/2020 07:14:00 AM [facility] Name Value Range Interpretation Code Description Data Miladys rce(s) Supporting Document(s) CBC W/AUTOMATED DIFF [facility] COMPLETE BLOOD COUNT Leukocytes [#/volume] in Blood by Automated count 2.4 10^3/uL 4.2 - [address] [facility] Erythrocytes [#/volume] in Blood by Automated count 2.66 10^6/uL 4. 20 - 5.[address] [facility] Hemoglobin [Mass/volume] in Blood 8.9 g/dL 12.0 - 16.[address] [facility] Hematocrit [Volume Fraction] of Blood by Automated count 26.3 % 3 7.0 - 47.[address] [facility] Erythrocyte mean corpuscular volume [Entitic volume] by Auto mated count 98.9 fL 81.0 - 101 [facility] Erythrocyte mean corpuscular hemoglobin [Entitic mass] by Automated count 33.5 pg 27.0 - 34.0 [facility] Erythrocyte mean corpuscular hemoglobin concentration [Mass/volume] by Automated count 33.8 g/dL 31.0 - 36.0 [facility] Erythrocyte distribution width [Ratio] by Automated count 17.3 % 11.5 - 14.[address] [facility] Platelets [#/volume] in Blood by Automated count 121 10^3/uL 150 - [address] [facility] Platelet mean volume [Entitic volume] in Blood by Automated count 10.1 fL 7.4 - 10.4 [facility] Neutrophils/100 leukocytes in Blood by Automated count 72.5 % 37. 0 - 80.0 [facility] Lymphocytes/100 leukocytes in Blood by Manual count 21.6 % 25.0 - 40.[address] [facility] Monocytes/100 leukocytes in Blood by Automated count 4.2 % 3.0 - 8.0 [facility] Eosinophils/100 leukocytes in Blood by Automated count 0.0 % 0.0 - 7.0 [facility] 0.4 %IG 1.3 % 0.0 - 0.0 H [facility] al %NRBC 0.0 % 0.0 - 0.0 [facility] al Neutrophils [#/volume] in Blood by Automated count 1.71 10^3/uL 2.00 - 6.[address] [facility] Lymphocytes [#/volume] in Blood by Automated count 0.51 10^3/uL 0.60 - 3.[address] [facility] Monocytes [#/volume] in Blood by Automated count 0.10 10^3/uL 0.00 - 0.90 [facility] Eosinophils [#/volume] in Blood by Automated count 0.00 10^3/uL 0.00 - 0.70 [facility] Basophils [#/volume] in Blood by Automated count 0.01 10^3/uL 0.00 - 0.20 [facility] #IG 0.03 10^3/uL 0.00 - 0.10 [facility] #NRBC 0.00 10^3/uL 0.00 - 0.00 [facility] MANUAL DIFF SEE BELOW [facility] ital Segmented neutrophils/100 leukocytes in Blood by Manual count 78 % 37 - 80 [facility] BAND 1 % 0 - 5 [facility] al %LYMPH 18 % 25 - 40 L [facility] al %MONO 2 % 3 - 8 L [facility] al 1 RBC MORPH SEE BELOW [facility] al Anisocytosis [Presence] in Blood by Light microscopy 1+ NATASHA L: NONE SEEN A [facility] Macrocytes [Presence] in Blood by Light microscopy 1+ NORMAL: NONE SEEN A [facility] Poikilocytosis [Presence] in Blood by Light microscopy 1+ NOR MAL: NONE SEEN A [facility] Polychromasia [Presence] in Blood by Light microscopy 1+ NORM AL: NONE SEEN A [facility] { SICKLE CELL (NORMAL: NONE SEEN ) Ovalocytes [Presence] in Blood by Light microscopy 1+ NORMAL: NONE SEEN A [facility] Platelet adequacy [Presence] in Blood by Light microscopy DE CREASED NORMAL: NORMAL A [facility] COMMENT: ID Date Data Source [id number] 03/12/2020 06:43:00 AM [facility] Name Value Range Interpretation Code Description Data Miladys rce(s) Supporting Document(s) Magnesium [Mass/volume] in Serum or Plasma 1.5 MG/DL 1.7 - 2.[address] [facility] ID Date Data Source [id number] 03/12/2020 06:43:00 AM [facility] Name Value Range Interpretation Code Description Data Miladys rce(s) Supporting Document(s) COMPREHENSIVE METABOLIC PANEL [facility] COMPREHENSIVE METABOLIC PANEL Sodium [Moles/volume] in Serum or Plasma 139 mEq/L 134 - 153 [facility] Potassium [Moles/volume] in Serum or Plasma 4.8 mEq/L 3.6 - 5.0 [facility] Chloride [Moles/volume] in Serum or Plasma 104 mEq/L 98 - 107 [facility] Carbon dioxide, total [Moles/volume] in Serum or Plasma 27 MEQ/L 22 - 30 [facility] Glucose [Mass/volume] in Serum or Plasma 142 MG/DL 65 - [address] [facility] BUN 8 MG/DL 7 - 21 [facility] Creatinine [Mass/volume] in Serum or Plasma 0.5 MG/DL 0.7 - 1.[address] [facility] BUN/CREAT 16 8 - 27 [facility] al Protein [Mass/volume] in Serum or Plasma 5.4 G/DL 6.3 - 8.[address] [facility] Albumin [Mass/volume] in Serum or Plasma 3.5 G/DL 3.9 - 5.[address] [facility] Globulin [Mass/volume] in Serum by calculation 1.9 GM/DL 2.4 - 3.[address] [facility] A/G RATIO 1.8 0.8 - 2.0 [facility] Calcium [Mass/volume] in Serum or Plasma 8.5 MG/DL 8.4 - 10.2 [facility] Bilirubin.total [Mass/volume] in Serum or Plasma 1.0 MG/DL 0.2 - 1.3 [facility] Alkaline phosphatase [Enzymatic activity/volume] in Serum or Plasma 88 U/L 38 - 126 [facility] Aspartate aminotransferase [Enzymatic activity/volume] in Se rum or Plasma 9 U/L 5 - 40 [facility] Alanine aminotransferase [Enzymatic activity/volume] in Seru m or Plasma 7 U/L 7 - 56 [facility] Anion gap 3 in Serum or Plasma 8.0 mmol/L 8.0 - 16.0 [facility] AGE 64 yrs [facility] al NON-AA GFR >60 mL/min [facility] ital AFR AMER GFR >60 [facility] Male GFR In terprentation 20-49 [...] >32 mL/min Normal ID Date Data Source [id number] 03/11/2020 10:52:00 AM [facility] [address] [place] [address] PHONE: [phone] FAX: [phone] Name .................. : GAMA Nobles Acct Number.................. : [id number] ROOM. ................. : 103-1 MR Number ................... : [id number] Stay type ............. : I/P Discharge Date......... ... : Admit Date ......... : 1 05/05/19 Admit Phys .................... : DANIKA-LAWRENCE Date of ....... : 1955 Family Phys ................... : NON STAFF Phone .................. : [phone] Age ................................ : 64 Film# .................. .:[id number] Sex ................................. : F Unsigned transcriptions are preliminary reports and do not represent a medical or legal document CT HEAD W/O CONTRAST [id number] COMPLETE:03/10/20 17:58 1109 (REASON FOR PROCEDURE :H [...] 03/10/20 22:23, Dictation Date: Copy for: 002 [facility] Copy for: 710 [facility] Page 1 of 1 Name Value Range Interpretation Code Description Data Miladys rce(s) Supporting Document(s) ID Date Data Source [id number] 03/13/2020 08:14:00 PM [facility] Name Value Range Interpretation Code Description [facility](s) Cytomegalovirus DNA [log units/volume] ( viral load) in Plasma by Probe and target amplification method COMMENT [id number]/mL [facility] Unable to calculate result since non-num rickey result obtained forcomponent test. Cytomegalovirus DNA [Units/volume] (sohail l load) in Plasma by Probe and target amplification method Negative IU/mL Negative [facility] No CMV DNA detected.The quantitative ran ge of this assay is 200 to 1 million IU/mL.This test was developed and its performance characteristics determinedby [facility]. It has not been cleared or approved by the Food and DrugAdministration. The FDA has determined that such clearance orapproval is not necessary. ID Date Data Source [id number] 03/11/2020 06:59:00 AM [facility] Name Value Range Interpretation Code Description Data [facility](s) Supporting Document(s) CBC W/AUTOMATED DIFF [facility] COMPLETE BLOOD COUNT Leukocytes [#/volume] in Blood by Automated count 2.4 10^3/uL 4.2 - [address] [facility] Erythrocytes [#/volume] in Blood by Automated count 2.51 10^6/uL 4. 20 - 5.[address] [facility] Hemoglobin [Mass/volume] in Blood 8.4 g/dL 12.0 - 16.[address] [facility] Hematocrit [Volume Fraction] of Blood by Automated count 25.3 % 3 7.0 - 47.[address] [facility] Erythrocyte mean corpuscular volume [Entitic volume] b y Automated count 100.8 fL 81.0 - 101 [facility] Erythrocyte mean corpuscular hemoglobin [Entitic mass] by Automated count 33.5 pg 27.0 - 34.0 [facility] Erythrocyte mean corpuscular hemoglobin concentration [Mass/volume] by Automated count 33.2 g/dL 31.0 - 36.0 [facility] Erythrocyte distribution width [Ratio] by Automated count 17.9 % 11.5 - 14.[address] [facility] Platelets [#/volume] in Blood by Automated count 101 10^3/uL 150 - [address] [facility] Platelet mean volume [Entitic volume] in Blood by Automated count 10.8 fL 7.4 - 10.[address] [facility] Neutrophils/100 leukocytes in Blood by Automated count 58.0 % 37. 0 - 80.0 [facility] Lymphocytes/100 leukocytes in Blood by Manual count 26.8 % 25.0 - 40.0 [facility] Monocytes/100 leukocytes in Blood by Automated count 10.6 % 3.0 - 8.[address] [facility] Eosinophils/100 leukocytes in Blood by Automated count 3.8 % 0.0 - 7.0 [facility] Basophils/100 leukocytes in Blood by Automated count 0.4 % 0.0 - 2.5 [facility] %IG 0.4 % 0.0 - 0.0 [facility] 0.0 % 0.0 - 0.0 [facility] al Neutrophils [#/volume] in Blood by Automated count 1.36 10^3/uL 2.00 - 6.[address] [facility] Lymphocytes [#/volume] in Blood by Automated count 0.63 10^3/uL 0.60 - 3.40 [facility] Monocytes [#/volume] in Blood by Automated count 0.25 10^3/uL 0.00 - 0.90 [facility] Eosinophils [#/volume] in Blood by Automated count 0.09 10^3/uL 0.00 - 0.70 [facility] Basophils [#/volume] in Blood by Automated count 0.01 10^3/uL 0.00 - 0.20 [facility] #IG 0.01 10^3/uL 0.00 - 0.10 [facility] H ospital #NRBC 0.00 10^3/uL 0.00 - 0.00 [facility] ospital MANUAL DIFF SEE BELOW [facility] ital Segmented neutrophils/100 leukocytes in Blood by Manual count 65 % 37 - 80 [facility] %LYMPH 20 % 25 - 40 L [facility] al %MONO 9 % 3 - 8 [facility] %EOS 6 % 0 - 7 [facility] RBC MORPH NOT INDICATED [facility]ital ID Date Data Source [id number] 03/11/2020 06:48:00 AM [facility] Name Value Range Interpretation Code Description Data Miladys rce(s) Supporting Document(s) Magnesium [Mass/volume] in Serum or Plasma 1.5 MG/DL 1.7 - 2.[address] [facility] ID Date Data Source [id number] 03/11/2020 06:48:00 AM [facility] Name Value Range Interpretation Code Description Data Miladys rce(s) Supporting Document(s) COMPREHENSIVE METABOLIC PANEL [facility] COMPREHENSIVE METABOLIC PANEL Sodium [Moles/volume] in Serum or Plasma 139 mEq/L 134 - 153 [facility] Potassium [Moles/volume] in Serum or Plasma 4.1 mEq/L 3.6 - 5.0 [facility] Chloride [Moles/volume] in Serum or Plasma 104 mEq/L 98 - 107 [facility] Carbon dioxide, total [Moles/volume] in Serum or Plasma 29 MEQ/L 22 - 30 [facility] Glucose [Mass/volume] in Serum or Plasma 85 MG/DL 65 - 110 [facility] BUN 5 MG/DL 7 - 21 [facility] Creatinine [Mass/volume] in Serum or Plasma 0.6 MG/DL 0.7 - 1.[address] [facility] BUN/CREAT 8 8 - 27 [facility] al Protein [Mass/volume] in Serum or Plasma 5.1 G/DL 6.3 - 8.[address] [facility] Albumin [Mass/volume] in Serum or Plasma 3.1 G/DL 3.9 - 5.[address] [facility] Globulin [Mass/volume] in Serum by calculation 2.0 GM/DL 2.4 - 3.[address] [facility] A/G RATIO 1.6 0.8 - 2.0 [facility] Calcium [Mass/volume] in Serum or Plasma 8.7 MG/DL 8.4 - 10.2 [facility] Bilirubin.total [Mass/volume] in Serum or Plasma 0.9 MG/DL 0.2 - 1.3 [facility] Alkaline phosphatase [Enzymatic activity/volume] in Serum or Plasma 83 U/L 38 - 126 [facility] Aspartate aminotransferase [Enzymatic activity/volume] in Se rum or Plasma 8 U/L 5 - 40 [facility] Alanine aminotransferase [Enzymatic activity/volume] in Seru m or Plasma 8 U/L 7 - 56 [facility] Anion gap 3 in Serum or Plasma 6.0 mmol/L 8.0 - 16.[address] [facility] AGE 64 yrs [facility] al NON-AA GFR >60 mL/min [facility] ital AFR AMER GFR >60 [facility] Male GFR In terprentation 20-49 [...] >32 mL/min Normal ID Date Data Source [id number] 03/10/2020 07:25:[address] [facility] Name Value Range Interpretation Code Description Data Miladys rce(s) Supporting Document(s) COMPREHENSIVE METABOLIC PANEL [facility] COMPREHENSIVE METABOLIC PANEL Sodium [Moles/volume] in Serum or Plasma 141 mEq/L 134 - 153 [facility] Potassium [Moles/volume] in Serum or Plasma 4.3 mEq/L 3.6 - 5.0 [facility] Chloride [Moles/volume] in Serum or Plasma 105 mEq/L 98 - 107 [facility] Carbon dioxide, total [Moles/volume] in Serum or Plasma 29 MEQ/L 22 - 30 [facility] Glucose [Mass/volume] in Serum or Plasma 103 MG/DL 65 - 110 [facility] BUN 6 MG/DL 7 - 21 L [facility] al Creatinine [Mass/volume] in Serum or Plasma 0.5 MG/DL 0.7 - 1.[address] [facility] BUN/CREAT 12 8 - 27 [facility] Protein [Mass/volume] in Serum or Plasma 5.4 G/DL 6.3 - 8.[address] [facility] Albumin [Mass/volume] in Serum or Plasma 3.4 G/DL 3.9 - 5.[address] [facility] Globulin [Mass/volume] in Serum by calculation 2.0 GM/DL 2.4 - 3.[address] [facility] A/G RATIO 1.7 0.8 - 2.0 [facility] Calcium [Mass/volume] in Serum or Plasma 8.8 MG/DL 8.4 - 10.2 [facility] Bilirubin.total [Mass/volume] in Serum or Plasma 0.7 MG/DL 0.2 - 1.3 [facility] Alkaline phosphatase [Enzymatic activity/volume] in Serum or Plasma 79 U/L 38 - 126 [facility] Aspartate aminotransferase [Enzymatic activity/volume] in Se rum or Plasma 9 U/L 5 - 40 [facility] Alanine aminotransferase [Enzymatic activity/volume] in Seru m or Plasma 8 U/L 7 - 56 [facility] Anion gap 3 in Serum or Plasma 7.0 mmol/L 8.0 - 16.[address] [facility] 64 [facility] >60 mL/min [facility] ital AFR AMER GFR >60 [facility] Male GFR In terprentation 20-49 [...] >32 mL/min Normal ID Date Data Source [id number] 03/10/2020 07:25:00 AM [facility] Name Value Range Interpretation Code Description Data Miladys rce(s) Supporting Document(s) Magnesium [Mass/volume] in Serum or Plasma 1.4 MG/DL 1.7 - 2.[address] [facility] ID Date Data Source [id number] 03/10/2020 07:20:00 AM [facility] Name Value Range Interpretation Code Description Data Miladys rce(s) Supporting Document(s) CBC W/AUTOMATED DIFF [facility] COMPLETE BLOOD COUNT Leukocytes [#/volume] in Blood by Automated count 2.7 10^3/uL 4.2 - [address] [facility] Erythrocytes [#/volume] in Blood by Automated count 2.62 10^6/uL 4. 20 - 5.[address] [facility] Hemoglobin [Mass/volume] in Blood 8.9 g/dL 12.0 - 16.[address] [facility] Hematocrit [Volume Fraction] of Blood by Automated count 26.4 % 3 7.0 - 47.[address] [facility] Erythrocyte mean corpuscular volume [Entitic volume] b y Automated count 100.8 fL 81.0 - 101 [facility] Erythrocyte mean corpuscular hemoglobin [Entitic mass] by Automated count 34.0 pg 27.0 - 34.0 [facility] Erythrocyte mean corpuscular hemoglobin concentration [Mass/volume] by Automated count 33.7 g/dL 31.0 - 36.0 [facility] Erythrocyte distribution width [Ratio] by Automated count 18.2 % 11.5 - 14.[address] [facility] Platelets [#/volume] in Blood by Automated count 103 10^3/uL 150 - [address] [facility] Platelet mean volume [Entitic volume] in Blood by Automated count 10.2 fL 7.4 - 10.4 [facility] Neutrophils/100 leukocytes in Blood by Automated count 58.0 % 37. 0 - 80.0 [facility] Lymphocytes/100 leukocytes in Blood by Manual count 28.0 % 25.0 - 40.0 [facility] Monocytes/100 leukocytes in Blood by Automated count 10.0 % 3.0 - 8.[address] [facility] Eosinophils/100 leukocytes in Blood by Automated count 2.6 % 0.0 - 7.0 [facility] Basophils/100 leukocytes in Blood by Automated count 0.7 % 0.0 - 2.5 [facility] %IG 0.7 % 0.0 - 0.0 [facility] %[facility] 0.0 % 0.0 - 0.0 [facility] al Neutrophils [#/volume] in Blood by Automated count 1.57 10^3/uL 2.00 - 6.[address] [facility] Lymphocytes [#/volume] in Blood by Automated count 0.76 10^3/uL 0.60 - 3.40 [facility] Monocytes [#/volume] in Blood by Automated count 0.27 10^3/uL 0.00 - 0.90 [facility] Eosinophils [#/volume] in Blood by Automated count 0.07 10^3/uL 0.00 - 0.70 [facility] Basophils [#/volume] in Blood by Automated count 0.02 10^3/uL 0.00 - 0.20 [facility] #IG 0.02 10^3/uL 0.00 - 0.10 [facility]ital #NRBC 0.00 10^3/uL 0.00 - 0.00 [facility] MANUAL DIFF SEE BELOW [facility] ital Segmented neutrophils/100 leukocytes in Blood by Manual count 64 % 37 - 80 [facility] BAND 1 % 0 - 5 [facility] al %LYMPH 21 % 25 - 40 L [facility] al %MONO 8 % 3 - 8 [facility] al %EOS 5 % 0 - 7 [facility] al Metamyelocytes/100 leukocytes in Blood by Manual count 1 % [facility] RBC MORPH [facility] Anisocytosis [Presence] in Blood by Light microscopy 1+ NATASHA L: NONE SEEN A [facility] Macrocytes [Presence] in Blood by Light microscopy 1+ NORMAL: NONE SEEN A [facility] Poikilocytosis [Presence] in Blood by Light microscopy 1+ NOR MAL: NONE SEEN A [facility] Polychromasia [Presence] in Blood by Light microscopy 1+ NORM AL: NONE SEEN A [facility] { SICKLE CELL (NORMAL: NONE SEEN ) Platelet adequacy [Presence] in Blood by Light microscopy DE CREASED NORMAL: NORMAL A [facility] COMMENT: ID Date Data Source [id number] 03/09/2020 09:47:00 AM EST [facility] [address] [place] [address] PHONE: [phone] FAX: [phone] Name .................. : GAMA Nobles Acct Number.................. : [id number] ROOM. ................. : 103-1 MR Number ................... : [id number] Stay type ............. : O/P Discharge Date......... ... : Admit Date ......... : 03/04/20 Admit Phys .................... : DANIKA-FALAN Date of ....... : 1955 Family Phys ................... : NON STAFF Phone .................. : [phone] Age ................................ : 64 Film# .................. .:[id number] Sex ................................. : F Unsigned transcriptions are preliminary reports and do not represent a medical or legal document DOPPLER VENOUS BILAT LEG [id number] COMPLETE:03/05/20 12:55 KNB 862 (REASON FOR PROCESS: [...] 03/05/20 13:17, Dictation Date: Copy for: 002 [facility] Copy for: 710 [facility] Page 1 of 1 Name Value Range Interpretation Code Description Data Miladys rce(s) Supporting Document(s) ID Date Data Source [id number] 03/09/2020 09:20:00 AM EST [facility] [address] [place] [address] PHONE: [phone] FAX: [phone] Name .................. : GAMA Nobles Acct Number.................. : [id number] ROOM. ................. : 103-1 MR Number ................... : [id number] Stay type ............. : I/P Discharge Date......... ... : Admit Date ......... : 03/04/20 Admit Phys .................... : DANIKA-FALAN Date of ....... : 1955 Family Phys ................... : NON STAFF Phone .................. : [phone] Age ................................ : 64 Film# .................. .:[id number] Sex ................................. : F Unsigned transcriptions are preliminary reports and do not represent a medical or legal document CHEST 2 VIEWS [id number] COMPLETE:03/09/20 06:02 BEM [id number] (REASON FOR CHEST: [...] 03/09/20 07:55, Dictation Date: Copy for: 002 [facility] Copy for: 710 [facility] Page 1 of 1 Name Value Range Interpretation Code Description Data Miladys rce(s) Supporting Document(s) ID Date Data Source [id number] 03/09/2020 07:42:[address] [facility] Name Value Range Interpretation Code Description Data Miladys rce(s) Supporting Document(s) CBC W/AUTOMATED DIFF [facility] COMPLETE BLOOD COUNT Leukocytes [#/volume] in Blood by Automated count 2.3 10^3/uL 4.2 - [address] [facility] Erythrocytes [#/volume] in Blood by Automated count 2.75 10^6/uL 4. 20 - 5.[address] [facility] Hemoglobin [Mass/volume] in Blood 9.1 g/dL 12.0 - 16.[address] [facility] Hematocrit [Volume Fraction] of Blood by Automated count 27.1 % 3 7.0 - 47.[address] [facility] Erythrocyte mean corpuscular volume [Entitic volume] by Auto mated count 98.5 fL 81.0 - 101 [facility] Erythrocyte mean corpuscular hemoglobin [Entitic mass] by Automated count 33.1 pg 27.0 - 34.0 [facility] Erythrocyte mean corpuscular hemoglobin concentration [Mass/volume] by Automated count 33.6 g/dL 31.0 - 36.0 [facility] Erythrocyte distribution width [Ratio] by Automated count 17.8 % 11.5 - 14.[address] [facility] Platelets [#/volume] in Blood by Automated count 101 10^3/uL 150 - [address] [facility] Platelet mean volume [Entitic volume] in Blood by Automated count 10.8 fL 7.4 - 10.[address] [facility] Neutrophils/100 leukocytes in Blood by Automated count 58.2 % 37. 0 - 80.0 [facility] Lymphocytes/100 leukocytes in Blood by Manual count 27.0 % 25.0 - 40.0 [facility] Monocytes/100 leukocytes in Blood by Automated count 12.2 % 3.0 - 8.[address] [facility] Eosinophils/100 leukocytes in Blood by Automated count 1.3 % 0.0 - 7.0 [facility] Basophils/100 leukocytes in Blood by Automated count 0.9 % 0.0 - 2.5 [facility] %IG 0.4 % 0.0 - 0.0 H [facility] al %NRBC 0.0 % 0.0 - 0.0 [facility] al Neutrophils [#/volume] in Blood by Automated count 1.34 10^3/uL 2.00 - 6.[address] [facility] Lymphocytes [#/volume] in Blood by Automated count 0.62 10^3/uL 0.60 - 3.40 [facility] Monocytes [#/volume] in Blood by Automated count 0.28 10^3/uL 0.00 - 0.90 [facility] Eosinophils [#/volume] in Blood by Automated count 0.03 10^3/uL 0.00 - 0.70 [facility] Basophils [#/volume] in Blood by Automated count 0.02 10^3/uL 0.00 - 0.20 [facility] #IG 0.01 10^3/uL 0.00 - 0.10 [facility] H ospital #NRBC 0.00 10^3/uL 0.00 - 0.00 [facility] ospital MANUAL DIFF SEE BELOW [facility] ital Segmented neutrophils/100 leukocytes in Blood by Manual count 62 % 37 - 80 [facility] %LYMPH 29 % 25 - 40 [facility] al %MONO 8 % 3 - 8 [facility] %EOS 1 % 0 - 7 [facility] RBC MORPH NOT INDICATED [facility] ID Date Data Source [id number] 03/09/2020 07:26:[address] [facility] Name Value Range Interpretation Code Description Data Miladys rce(s) Supporting Document(s) COMPREHENSIVE METABOLIC PANEL [facility] COMPREHENSIVE METABOLIC PANEL Sodium [Moles/volume] in Serum or Plasma 142 mEq/L 134 - 153 [facility] Potassium [Moles/volume] in Serum or Plasma 3.2 mEq/L 3.6 - 5.[address] [facility] Chloride [Moles/volume] in Serum or Plasma 101 mEq/L 98 - 107 [facility] Carbon dioxide, total [Moles/volume] in Serum or Plasma 34 MEQ/L 22 - [address] [facility] Glucose [Mass/volume] in Serum or Plasma 99 MG/DL 65 - 110 [facility] BUN 8 MG/DL 7 - 21 [facility] al Creatinine [Mass/volume] in Serum or Plasma 0.7 MG/DL 0.7 - 1.5 [facility] BUN/CREAT 11 8 - 27 [facility] Protein [Mass/volume] in Serum or Plasma 5.4 G/DL 6.3 - 8.[address] [facility] Albumin [Mass/volume] in Serum or Plasma 3.6 G/DL 3.9 - 5.[address] [facility] Globulin [Mass/volume] in Serum by calculation 1.8 GM/DL 2.4 - 3.[address] [facility] A/G RATIO 2.0 0.8 - 2.0 [facility] Calcium [Mass/volume] in Serum or Plasma 8.5 MG/DL 8.4 - 10.2 [facility] Bilirubin.total [Mass/volume] in Serum or Plasma 1.0 MG/DL 0.2 - 1.3 [facility] Alkaline phosphatase [Enzymatic activity/volume] in Serum or Plasma 79 U/L 38 - 126 [facility] Aspartate aminotransferase [Enzymatic activity/volume] in Se rum or Plasma 9 U/L 5 - 40 [facility] Alanine aminotransferase [Enzymatic activity/volume] in Seru m or Plasma 8 U/L 7 - 56 [facility] Anion gap 3 in Serum or Plasma 7.0 mmol/L 8.0 - 16.[address] [facility] AGE 64 yrs [facility] al NON-AA GFR >60 mL/min [facility] AFR AMER GFR >60 [facility] Male GFR In terprentation [...] >32 mL/min Normal ID Date Data Source [id number] 03/09/2020 07:26:00 AM [facility] Value Range Interpretation Code Description Data Miladys rce(s) Supporting Document(s) Magnesium [Mass/volume] in Serum or Plasma 1.2 MG/DL 1.7 - 2.[address] [facility] ID Date Data Source [id number] 03/16/2020 12:12:00 PM [facility] Value Range Interpretation Code Description Data Miladys rce(s) Supporting Document(s) CULTURE BLOOD [facility] spital _CULTURE BLOOD_ [place] [address] CLIA# [id number] SEE SCANNED REPORT{ PRELIM ID Date Data Source [id number] 03/10/2020 01:00:00 PM [facility] [id number]/10/20 12:56 CALLED TO WAYNE Nobles BY OPAL, RESULTS READBACKThe [employer] BCID Panel is a qualitative multiplexednucleic acid-based [...] rce(s) Supporting Document(s) ID Date Data Source [id number] 03/16/2020 12:12:00 PM EST [facility] Name Value Range Interpretation Code Description Data Miladys rce(s) Supporting Document(s) CULTURE BLOOD [facility] spital _CULTURE BLOOD_ [place] [address] CLIA# [id number] SEE SCANNED REPORT{ PRELIM GROWTH OF GRAM POS COCCI IN CLUSTERSCALLED TO PAT ON AIU 03/10/20 1305 CM ID Date Data Source [id number] 03/08/2020 08:45:00 PM EST [facility] Name Value Range Interpretation Code Description Data Miladys rce(s) Supporting Document(s) COVID-19 NOT DETECTED [facility] This lab was ordered by [facility] and reported by [facility]. ID Date Data Source [id number] 03/08/2020 08:45:00 PM EST [facility] Name Value Range Interpretation Code Description Data Miladys rce(s) Supporting Document(s) COVID-19 REENTER NOT DETECTED [facility] This lab was ordered by [facility] and reported by [facility]. ID Date Data Source [id number] 03/08/2020 09:35:00 PM [facility] Name Value Range Interpretation Code Description Data Miladys rce(s) Supporting Document(s) COVID-19 NOT DETECTED [facility] COVID-19 REENTER NOT DETECTED [facility] { PROCEDURAL CONTROL VALID KIT LOT # _[id number] 03/08/20.DW . KIT EXP DATE _[id number] 03/08/20.DW . NORMAL RANGE IS NOT DETECTEDNEGATIVE RESULTS SHOULD BE TREATED PREUMPTIVE AND, IF INCONSISTENT WITHCLINICAL SIGNS AND SYMPTOMS OR NECESSARY FOR PATIENT MANAGEMENT, SHOULD BETESTED WITH DIFFERENT AUTHORIZED OR CLEARED MOLECULAR TESTS. NEGATIVE RESULTSDO NOT PRECLUDE SARS-CoV-2 INFECTION AND SHOULD NOT BE USED THE SOLE BASISFOR PATIENT MANAGEMENT DECISIONS. ID Date Data Source [id number] 03/08/2020 11:55:00 AM [facility] Name Value Range Interpretation Code Description Data Miladys rce(s) Supporting Document(s) Magnesium [Mass/volume] in Serum or Plasma 1.6 MG/DL 1.7 - 2.[address] [facility] ID Date Data Source [id number] 03/08/2020 09:41:00 AM [facility] Value Range Interpretation Code Description Data Miladys rce(s) Supporting Document(s) CBC W/AUTOMATED DIFF [facility] COMPLETE BLOOD COUNT Leukocytes [#/volume] in Blood by Automated count 2.3 10^3/uL 4.2 - [address] [facility] Erythrocytes [#/volume] in Blood by Automated count 2.51 10^6/uL 4. 20 - 5.[address] [facility] Hemoglobin [Mass/volume] in Blood 8.5 g/dL 12.0 - 16.[address] [facility] Hematocrit [Volume Fraction] of Blood by Automated count 24.6 % 3 7.0 - 47.[address] [facility] Erythrocyte mean corpuscular volume [Entitic volume] by Auto mated count 98.0 fL 81.0 - 101 [facility] Erythrocyte mean corpuscular hemoglobin [Entitic mass] by Automated count 33.9 pg 27.0 - 34.0 [facility] Erythrocyte mean corpuscular hemoglobin concentration [Mass/volume] by Automated count 34.6 g/dL 31.0 - 36.0 [facility] Erythrocyte distribution width [Ratio] by Automated count 17.5 % 11.5 - 14.[address] [facility] Platelets [#/volume] in Blood by Automated count 94 10^3/uL 150 - [address] [facility] Platelet mean volume [Entitic volume] in Blood by Automated count 11.1 fL 7.4 - 10.[address] [facility] Neutrophils/100 leukocytes in Blood by Automated count 61.3 % 37. 0 - 80.0 [facility] Lymphocytes/100 leukocytes in Blood by Manual count 23.2 % 25.0 - 40.[address] [facility] Monocytes/100 leukocytes in Blood by Automated count 12.9 % 3.0 - 8.[address] [facility] Eosinophils/100 leukocytes in Blood by Automated count 1.3 % 0.0 - 7.0 [facility] Basophils/100 leukocytes in Blood by Automated count 0.9 % 0.0 - 2.5 [facility] %IG 0.4 % 0.0 - [facility] % 0.0 - 0.0 [facility] al Neutrophils [#/volume] in Blood by Automated count 1.43 10^3/uL 2.00 - 6.[address] [facility] Lymphocytes [#/volume] in Blood by Automated count 0.54 10^3/uL 0.60 - 3.[address] [facility] Monocytes [#/volume] in Blood by Automated count 0.30 10^3/uL 0.00 - 0.90 [facility] Eosinophils [#/volume] in Blood by Automated count 0.03 10^3/uL 0.00 - 0.70 [facility] Basophils [#/volume] in Blood by Automated count 0.02 10^3/uL 0.00 - 0.20 [facility] #IG 0.01 10^3/uL 0.00 - 0.10 [facility]ital #NRBC 0.00 10^3/uL 0.00 - 0.00 [facility] MANUAL DIFF NOT INDICATED [facility] RBC MORPH NOT INDICATED [facility] spital ID Date Data Source [id number] 03/08/2020 09:00:[address] [facility] Name Value Range Interpretation Code Description Data Miladys rce(s) Supporting Document(s) COMPREHENSIVE METABOLIC PANEL [facility] COMPREHENSIVE METABOLIC PANEL Sodium [Moles/volume] in Serum or Plasma 141 mEq/L 134 - 153 [facility] Potassium [Moles/volume] in Serum or Plasma 3.1 mEq/L 3.6 - 5.[address] [facility] Chloride [Moles/volume] in Serum or Plasma 106 mEq/L 98 - 107 [facility] Carbon dioxide, total [Moles/volume] in Serum or Plasma 30 MEQ/L 22 - 30 [facility] Glucose [Mass/volume] in Serum or Plasma 86 MG/DL 65 - 110 [facility] BUN <4 MG/DL 7 - 21 L [facility] Creatinine [Mass/volume] in Serum or Plasma 0.5 MG/DL 0.7 - 1.[address] [facility] BUN/CREAT 8 8 - 27 [facility] al Protein [Mass/volume] in Serum or Plasma 5.1 G/DL 6.3 - 8.[address] [facility] Albumin [Mass/volume] in Serum or Plasma 2.9 G/DL 3.9 - 5.[address] [facility] Globulin [Mass/volume] in Serum by calculation 2.2 GM/DL 2.4 - 3.[address] [facility] A/G RATIO 1.3 0.8 - 2.0 [facility] Calcium [Mass/volume] in Serum or Plasma 8.3 MG/DL 8.4 - 10.[address] [facility] Bilirubin.total [Mass/volume] in Serum or Plasma 0.8 MG/DL 0.2 - 1.3 [facility] Alkaline phosphatase [Enzymatic activity/volume] in Serum or Plasma 70 U/L 38 - 126 [facility] Aspartate aminotransferase [Enzymatic activity/volume] in Se rum or Plasma 8 U/L 5 - 40 [facility] Alanine aminotransferase [Enzymatic activity/volume] in Seru m or Plasma 7 U/L 7 - 56 [facility] Anion gap 3 in Serum or Plasma 5.0 mmol/L 8.0 - 16.[address] [facility] AGE 64 yrs [facility] NON-AA GFR >60 mL/min [facility] AFR AMER GFR >60 [facility] Male GFR In terprentation 20-49 [...] >32 mL/min Normal ID Date Data Source [id number] 03/07/2020 10:42:00 AM [facility] Name Value Range Interpretation Code Description Data Miladys rce(s) Supporting Document(s) Iron [Mass/volume] in Serum or Plasma 62 UG/DL 42 - 135 [facility] ID Date Data Source [id number] 03/07/2020 09:11:00 AM [facility] Name Value Range Interpretation Code Description Data Miladys rce(s) Supporting Document(s) CBC W/AUTOMATED DIFF [facility] COMPLETE BLOOD COUNT Leukocytes [#/volume] in Blood by Automated count 2.5 10^3/uL 4.2 - [address] [facility] Erythrocytes [#/volume] in Blood by Automated count 2.52 10^6/uL 4. 20 - 5.[address] [facility] Hemoglobin [Mass/volume] in Blood 8.4 g/dL 12.0 - 16.[address] [facility] Hematocrit [Volume Fraction] of Blood by Automated count 24.8 % 3 7.0 - 47.[address] [facility] Erythrocyte mean corpuscular volume [Entitic volume] by Auto mated count 98.4 fL 81.0 - 101 [facility] Erythrocyte mean corpuscular hemoglobin [Entitic mass] by Automated count 33.3 pg 27.0 - 34.0 [facility] Erythrocyte mean corpuscular hemoglobin concentration [Mass/volume] by Automated count 33.9 g/dL 31.0 - 36.0 [facility] Erythrocyte distribution width [Ratio] by Automated count 17.5 % 11.5 - 14.[address] [facility] Platelets [#/volume] in Blood by Automated count 86 10^3/uL 150 - [address] [facility] Platelet mean volume [Entitic volume] in Blood by Automated count 10.5 fL 7.4 - 10.[address] [facility] Neutrophils/100 leukocytes in Blood by Automated count 66.3 % 37. 0 - 80.0 [facility] Lymphocytes/100 leukocytes in Blood by Manual count 18.9 % 25.0 - 40.[address] [facility] Monocytes/100 leukocytes in Blood by Automated count 10.8 % 3.0 - 8.[address] [facility] Eosinophils/100 leukocytes in Blood by Automated count 2.8 % 0.0 - 7.0 [facility] Basophils/100 leukocytes in Blood by Automated count 0.8 % 0.0 - 2.5 [facility] %IG 0.4 % 0.0 - 0.0 [facility] 0.0 % 0.0 - 0.0 [facility] al Neutrophils [#/volume] in Blood by Automated count 1.65 10^3/uL 2.00 - 6.[address] [facility] Lymphocytes [#/volume] in Blood by Automated count 0.47 10^3/uL 0.60 - 3.[address] [facility] Monocytes [#/volume] in Blood by Automated count 0.27 10^3/uL 0.00 - 0.90 [facility] Eosinophils [#/volume] in Blood by Automated count 0.07 10^3/uL 0.00 - 0.70 [facility] Basophils [#/volume] in Blood by Automated count 0.02 10^3/uL 0.00 - 0.20 [facility] #IG 0.01 10^3/uL 0.00 - 0.10 [facility] ospital #NRBC 0.00 10^3/uL 0.00 - 0.00 [facility] ospital MANUAL DIFF NOT INDICATED [facility] RBC MORPH NOT INDICATED [facility] ID Date Data Source [id number] 03/07/2020 08:40:00 AM [facility] Name Value Range Interpretation Code Description Data Miladys rce(s) Supporting Document(s) Magnesium [Mass/volume] in Serum or Plasma 1.1 MG/DL 1.7 - 2.[address] [facility] ID Date Data Source [id number] 03/07/2020 08:40:00 AM [facility] Name Value Range Interpretation Code Description Data Miladys rce(s) Supporting Document(s) COMPREHENSIVE METABOLIC PANEL [facility] COMPREHENSIVE METABOLIC PANEL Sodium [Moles/volume] in Serum or Plasma 139 mEq/L 134 - 153 [facility] Potassium [Moles/volume] in Serum or Plasma 3.4 mEq/L 3.6 - 5.[address] [facility] Chloride [Moles/volume] in Serum or Plasma 107 mEq/L 98 - 107 [facility] Carbon dioxide, total [Moles/volume] in Serum or Plasma 26 MEQ/L 22 - 30 [facility] Glucose [Mass/volume] in Serum or Plasma 91 MG/DL 65 - 110 [facility] BUN 5 MG/DL 7 - 21 L [facility] Creatinine [Mass/volume] in Serum or Plasma 0.5 MG/DL 0.7 - 1.[address] [facility] BUN/CREAT 10 8 - 27 [facility] Protein [Mass/volume] in Serum or Plasma 4.7 G/DL 6.3 - 8.[address] [facility] Albumin [Mass/volume] in Serum or Plasma 3.0 G/DL 3.9 - 5.[address] [facility] Globulin [Mass/volume] in Serum by calculation 1.7 GM/DL 2.4 - 3.[address] [facility] A/G RATIO 1.8 0.8 - 2.0 [facility] Calcium [Mass/volume] in Serum or Plasma 8.0 MG/DL 8.4 - 10.[address] [facility] Bilirubin.total [Mass/volume] in Serum or Plasma <0.7 MG/DL 0.2 - 1.3 [facility] Alkaline phosphatase [Enzymatic activity/volume] in Serum or Plasma 69 U/L 38 - 126 [facility] Aspartate aminotransferase [Enzymatic activity/volume] in Se rum or Plasma 8 U/L 5 - 40 [facility] Alanine aminotransferase [Enzymatic activity/volume] in Seru m or Plasma 6 U/L 7 - [address] [facility] Anion gap 3 in Serum or Plasma 6.0 mmol/L 8.0 - 16.[address] [facility] 64 [facility]/min [facility] AFR AMER GFR >60 [facility] Male GFR In terprentation 20-49 [...] >32 mL/min Normal ID Date Data Source [id number] 03/11/2020 06:20:00 AM [facility] Name Value Range Interpretation Code Description Data Miladys rce(s) Supporting Document(s) Clostridium difficile toxin A+B [Presence] in Stool by Immun oassay Negative Negative [facility] ID Date Data Source [id number] 03/10/2020 06:12:00 AM [facility] Name Value Range Interpretation Code Description Data Miladys rce(s) Supporting Document(s) WBC STOOL [facility] al _WBC STOOL_$$[id number]$$050010$$[id number] $$[id number]$$[id number]$$[id number] DATE/TIME: 03/09/2020 18:05Culture: WBC STOOL Status: FinalWhite Blood Cells (WBC), Stool: P1No white blood cells seen.Reference Range: None SeenP1 Test performed by: [facility] CLIA #: [id number] [address] [place] [address] [id number] [facility] [address]Kbupmwu Director : Hira Cole MD NPI #:Orthodontic Assistant : 03/10/20.0613.XMT.SENT REF ID Date Data Source [id number] 03/06/2020 07:44:00 AM [facility] Name Value Range Interpretation Code Description Data Miladys e(s) Supporting Document(s) Magnesium [Mass/volume] in Serum or Plasma 1.4 MG/DL 1.7 - 2.[address] [facility] ID Date Data Source [id number] 03/06/2020 07:44:00 AM [facility] Name Value Range Interpretation Code Description Data Miladys rce(s) Supporting Document(s) COMPREHENSIVE METABOLIC PANEL [facility] COMPREHENSIVE METABOLIC PANEL Sodium [Moles/volume] in Serum or Plasma 141 mEq/L 134 - 153 [facility] Potassium [Moles/volume] in Serum or Plasma 3.8 mEq/L 3.6 - 5.0 [facility] Chloride [Moles/volume] in Serum or Plasma 108 mEq/L 98 - [address] [facility] Carbon dioxide, total [Moles/volume] in Serum or Plasma 27 MEQ/L 22 - 30 [facility] Glucose [Mass/volume] in Serum or Plasma 114 MG/DL 65 - [address] [facility] BUN 9 MG/DL 7 - [facility] [Mass/volume] in Serum or Plasma 0.6 MG/DL 0.7 - 1.[address] [facility] BUN/CREAT 15 8 - 27 [facility] al Protein [Mass/volume] in Serum or Plasma 5.3 G/DL 6.3 - 8.[address] [facility] Albumin [Mass/volume] in Serum or Plasma 3.5 G/DL 3.9 - 5.[address] [facility] Globulin [Mass/volume] in Serum by calculation 1.8 GM/DL 2.4 - 3.[address] [facility] A/G RATIO 1.9 0.8 - 2.0 [facility] Calcium [Mass/volume] in Serum or Plasma 8.6 MG/DL 8.4 - 10.2 [facility] Bilirubin.total [Mass/volume] in Serum or Plasma <0.7 MG/DL 0.2 - 1.3 [facility] Alkaline phosphatase [Enzymatic activity/volume] in Serum or Plasma 80 U/L 38 - 126 [facility] Aspartate aminotransferase [Enzymatic activity/volume] in Se rum or Plasma 8 U/L 5 - 40 [facility] Alanine aminotransferase [Enzymatic activity/volume] in Seru m or Plasma 8 U/L 7 - 56 [facility] Anion gap 3 in Serum or Plasma 6.0 mmol/L 8.0 - 16.[address] [facility] AGE 64 yrs [facility] al NON-AA GFR >60 mL/min [facility] AFR AMER GFR >60 [facility] Male GFR In terprentation 20-49 [...] >32 mL/min Normal ID Date Data Source [id number] 03/06/2020 07:33:[address] [facility] Name Value Range Interpretation Code Description Data Miladys rce(s) Supporting Document(s) CBC W/AUTOMATED DIFF [facility] COMPLETE BLOOD COUNT Leukocytes [#/volume] in Blood by Automated count 2.7 10^3/uL 4.2 - [address] [facility] Erythrocytes [#/volume] in Blood by Automated count 2.68 10^6/uL 4. 20 - 5.[address] [facility] Hemoglobin [Mass/volume] in Blood 8.8 g/dL 12.0 - 16.[address] [facility] Hematocrit [Volume Fraction] of Blood by Automated count 26.9 % 3 7.0 - 47.[address] [facility] Erythrocyte mean corpuscular volume [Entitic volume] b y Automated count 100.4 fL 81.0 - 101 [facility] Erythrocyte mean corpuscular hemoglobin [Entitic mass] by Automated count 32.8 pg 27.0 - 34.0 [facility] Erythrocyte mean corpuscular hemoglobin concentration [Mass/volume] by Automated count 32.7 g/dL 31.0 - 36.0 [facility] Erythrocyte distribution width [Ratio] by Automated count 18.1 % 11.5 - 14.[address] [facility] Platelets [#/volume] in Blood by Automated count 96 10^3/uL 150 - [address] [facility] Platelet mean volume [Entitic volume] in Blood by Automated count 10.5 fL 7.4 - 10.[address] [facility] Neutrophils/100 leukocytes in Blood by Automated count 67.5 % 37. 0 - 80.0 [facility] Lymphocytes/100 leukocytes in Blood by Manual count 18.1 % 25.0 - 40.[address] [facility] Monocytes/100 leukocytes in Blood by Automated count 10.0 % 3.0 - 8.[address] [facility] Eosinophils/100 leukocytes in Blood by Automated count 2.2 % 0.0 - 7.0 [facility] Basophils/100 leukocytes in Blood by Automated count 1.5 % 0.0 - 2.5 [facility] %IG 0.7 % 0.0 - 0.0 [facility] %[facility] 0.0 % 0.0 - 0.0 [facility] al Neutrophils [#/volume] in Blood by Automated count 1.82 10^3/uL 2.00 - 6.[address] [facility] Lymphocytes [#/volume] in Blood by Automated count 0.49 10^3/uL 0.60 - 3.[address] [facility] Monocytes [#/volume] in Blood by Automated count 0.27 10^3/uL 0.00 - 0.90 [facility] Eosinophils [#/volume] in Blood by Automated count 0.06 10^3/uL 0.00 - 0.70 [facility] Basophils [#/volume] in Blood by Automated count 0.04 10^3/uL 0.00 - 0.20 [facility] #IG 0.02 10^3/uL 0.00 - 0.10 [facility]spital #NRBC 0.00 10^3/uL 0.00 - 0.00 [facility] MANUAL DIFF NOT INDICATED [facility] RBC MORPH NOT INDICATED [facility] ID Date Data Source [id number] 03/10/2020 09:30:[address] [facility] Name Value Range Interpretation Code Description Data Miladys rce(s) Supporting Document(s) CULTURE STOOL [facility] _CULTURE STOOL_$$[id number]$$248936$$[id number]$$[id number]$$[id number]$$[id number]$$[id number]$$[id number]$$[id number]$$ [id number]$$[id number]$$[id number]$$[id number] DATE/TIME: 03/10/2020 07:06Culture: CULTURE STOOL Status: FinalSalmonella/Shigella Screen: P1No Salmonella or Shigella recovered.NO COLIFORMS ISOLATED Previous result entered on 03/08/2020 12:28 ET Microbiological testing to rule out the presence of possible pathogensis in progress.Campylobacter Culture: P1No Campylobacter species isolated. -- Continued on next page --Patient: GAMA Nobles Order: [id number] Page 2Culture: CULTURE STOOL Status: Final ====E coli Shiga Toxin EIA: [id number] Range: NegativeP1 Test performed by: [facility] #: [id number] [address] [place] [address] [id number] [facility] [address]Medical Director : Hira Cole MD NPI #:Orthodontic Assistant : 03/09/20.0723.XMT.SENT REF 03/09/20.1434.XMT.SENT REF 03/10/20.0930.XMT.SENT REF ID Date Data Source [id number] 03/05/2020 10:21:00 AM [facility] Name Value Range Interpretation Code Description Data Miladys rce(s) Supporting Document(s) Lactate [Moles/volume] in Serum or Plasma 1.9 MMOL/L 0.2 - 2.2 [facility] ID Date Data Source [id number] 03/05/2020 09:13:00 AM EST [facility] [address] [place] [address] PHONE: [phone] FAX: [phone] Name .................. : GAMA Nobles Acct Number.................. : [id number] ROOM. ................. : 103-1 MR Number ................... : [id number] Stay type ............. : O/P Discharge Date......... ... : Admit Date ......... : 03/04/20 Admit Phys .................... : DANIKA-LAWRENCE Date of ....... : 1955 Family Phys ................... : NON STAFF Phone .................. : [phone] Age ................................ : 64 Film# .................. .:[id number] Sex ................................. : F Unsigned transcriptions are preliminary reports and do not represent a medical or legal document ABDOMEN 1 VIEW [id number] COMPLETE:03/04/20 14:04 ARS 792 Reason(s): n/v/d r/o obstruction KUB: SINGLE VIEW INDICATION: Nausea, vomiting and diarrhea, rule out obstruction. FINDINGS: The bowel gas pattern is nonspecific. The osseous structures show diffuse degenerative changes. IMPRESSION: No acute findings. Nonspecific bowel gas pattern. Examination dictated by ZAIN Burk. Examination was reviewed with Romel Fleming MD, radiologist at the time of this dictation. Electronically Reviewed and Signed By Romel Fleming MD , 03/05/20 09:13, KGG Transcribe Initials: DZ , Transcribe Date: 03/05/20 00:38, Dictation Date: Copy for: EMERGENCY DEPT via modem Copy for: 710 MED REC Page 1 of 1 Name Value Range Interpretation Code Description Data Miladys rce(s) Supporting Document(s) ID Date Data Source [id number] 03/05/2020 08:08:[address] [facility] Name Value Range Interpretation Code Description Data Miladys rce(s) Supporting Document(s) CBC W/AUTOMATED DIFF [facility] COMPLETE BLOOD COUNT Leukocytes [#/volume] in Blood by Automated count 2.3 10^3/uL 4.2 - [address] [facility] Erythrocytes [#/volume] in Blood by Automated count 2.70 10^6/uL 4. 20 - 5.[address] [facility] Hemoglobin [Mass/volume] in Blood 9.1 g/dL 12.0 - 16.[address] [facility] Hematocrit [Volume Fraction] of Blood by Automated count 27.1 % 3 7.0 - 47.[address] [facility] Erythrocyte mean corpuscular volume [Entitic volume] b y Automated count 100.4 fL 81.0 - 101 [facility] Erythrocyte mean corpuscular hemoglobin [Entitic mass] by Automated count 33.7 pg 27.0 - 34.0 [facility] Erythrocyte mean corpuscular hemoglobin concentration [Mass/volume] by Automated count 33.6 g/dL 31.0 - 36.0 [facility] Erythrocyte distribution width [Ratio] by Automated count 18.0 % 11.5 - 14.[address] [facility] Platelets [#/volume] in Blood by Automated count 92 10^3/uL 150 - [address] [facility] Platelet mean volume [Entitic volume] in Blood by Automated count 10.7 fL 7.4 - 10.[address] [facility] Neutrophils/100 leukocytes in Blood by Automated count 60.3 % 37. 0 - 80.0 [facility] Lymphocytes/100 leukocytes in Blood by Manual count 20.3 % 25.0 - 40.[address] [facility] Monocytes/100 leukocytes in Blood by Automated count 16.0 % 3.0 - 8.[address] [facility] Eosinophils/100 leukocytes in Blood by Automated count 1.3 % 0.0 - 7.0 [facility] Basophils/100 leukocytes in Blood by Automated count 1.7 % 0.0 - 2.5 [facility] %IG 0.4 % 0.0 - 0.0 [facility] al %NRBC 0.0 % 0.0 - 0.0 [facility] Neut[facility] [#/volume] in Blood by Automated count 1.39 10^3/uL 2.00 - 6.[address] [facility] Lymphocytes [#/volume] in Blood by Automated count 0.47 10^3/uL 0.60 - 3.[address] [facility] Monocytes [#/volume] in Blood by Automated count 0.37 10^3/uL 0.00 - 0.90 [facility] Eosinophils [#/volume] in Blood by Automated count 0.03 10^3/uL 0.00 - 0.70 [facility] Basophils [#/volume] in Blood by Automated count 0.04 10^3/uL 0.00 - 0.20 [facility] #IG 0.01 10^3/uL 0.00 - 0.10 [facility] ospital #NRBC 0.00 10^3/uL 0.00 - 0.00 [facility] ospital MANUAL DIFF SEE BELOW [facility] ital Segmented neutrophils/100 leukocytes in Blood by Manual count 65 % 37 - 80 [facility] Hospital %LYMPH 23 % 25 - 40 L [facility] al %MONO 11 % 3 - 8 [facility] al %EOS 1 % 0 - 7 [facility] al RBC MORPH SEE BELOW [facility] al Anisocytosis [Presence] in Blood by Light microscopy 1+ NATASHA L: NONE SEEN A [facility] Macrocytes [Presence] in Blood by Light microscopy 1+ NORMAL: NONE SEEN A [facility] Poikilocytosis [Presence] in Blood by Light microscopy 1+ NOR MAL: NONE SEEN A [facility] { SICKLE CELL (NORMAL: NONE SEEN ) Platelet adequacy [Presence] in Blood by Light microscopy DE CREASED NORMAL: NORMAL A [facility] COMMENT: ID Date Data Source [id number] 03/05/2020 07:47:00 AM [facility] Name Value Range Interpretation Code Description Data Miladys rce(s) Supporting Document(s) Phosphate [Mass/volume] in Serum or Plasma 3.6 MG/DL 2.5 - 4.5 [facility] ID Date Data Source [id number] 03/05/2020 07:47:00 AM [facility] Name Value Range Interpretation Code Description Data Miladys rce(s) Supporting Document(s) Magnesium [Mass/volume] in Serum or Plasma 1.6 MG/DL 1.7 - 2.[address] [facility] ID Date Data Source [id number] 03/05/2020 07:47:00 AM [facility] Name Value Range Interpretation Code Description Data Miladys rce(s) Supporting Document(s) COMPREHENSIVE METABOLIC PANEL [facility] COMPREHENSIVE METABOLIC PANEL Sodium [Moles/volume] in Serum or Plasma 144 mEq/L 134 - 153 [facility] Potassium [Moles/volume] in Serum or Plasma 3.3 mEq/L 3.6 - 5.[address] [facility] Chloride [Moles/volume] in Serum or Plasma 106 mEq/L 98 - 107 [facility] Carbon dioxide, total [Moles/volume] in Serum or Plasma 29 MEQ/L 22 - 30 [facility] Glucose [Mass/volume] in Serum or Plasma 110 MG/DL 65 - 110 [facility] BUN 17 MG/DL 7 - 21 [facility] al Creatinine [Mass/volume] in Serum or Plasma 0.8 MG/DL 0.7 - 1.5 [facility] BUN/CREAT 21 8 - 27 [facility] Protein [Mass/volume] in Serum or Plasma 5.3 G/DL 6.3 - 8.[address] [facility] Albumin [Mass/volume] in Serum or Plasma 3.5 G/DL 3.9 - 5.[address] [facility] Globulin [Mass/volume] in Serum by calculation 1.8 GM/DL 2.4 - 3.[address] [facility] A/G RATIO 1.9 0.8 - 2.0 [facility] Calcium [Mass/volume] in Serum or Plasma 8.5 MG/DL 8.4 - 10.2 [facility] Bilirubin.total [Mass/volume] in Serum or Plasma <0.7 MG/DL 0.2 - 1.3 [facility] Alkaline phosphatase [Enzymatic activity/volume] in Serum or Plasma 73 U/L 38 - 126 [facility] Aspartate aminotransferase [Enzymatic activity/volume] in Se rum or Plasma 8 U/L 5 - 40 [facility] Alanine aminotransferase [Enzymatic activity/volume] in Seru m or Plasma 8 U/L 7 - 56 [facility] Anion gap 3 in Serum or Plasma 9.0 mmol/L 8.0 - 16.0 [facility] AGE 64 yrs [facility] al NON-AA GFR >60 mL/min [facility] ital AFR AMER GFR >60 [facility] pital Male GFR In terprentation 20-49 [...] >32 mL/min Normal ID Date Data Source [id number] 03/05/2020 02:48:[address] [facility] Name Value Range Interpretation Code Description Data Miladys rce(s) Supporting Document(s) BASIC METABOLIC PANEL [facility] BASIC METABOLIC PANEL Sodium [Moles/volume] in Serum or Plasma 140 mEq/L 134 - 153 [facility] Potassium [Moles/volume] in Serum or Plasma 3.4 mEq/L 3.6 - 5.[address] [facility] Chloride [Moles/volume] in Serum or Plasma 102 mEq/L 98 - 107 [facility] Carbon dioxide, total [Moles/volume] in Serum or Plasma 28 MEQ/L 22 - 30 [facility] Glucose [Mass/volume] in Serum or Plasma 136 MG/DL 65 - [address] [facility] BUN 20 MG/DL 7 - 21 [facility] al Creatinine [Mass/volume] in Serum or Plasma 0.8 MG/DL 0.7 - 1.5 [facility] BUN/CREAT 25 8 - 27 [facility] Calcium [Mass/volume] in Serum or Plasma 8.7 MG/DL 8.4 - 10.2 [facility] Anion gap 3 in Serum or Plasma 10.0 mmol/L 8.0 - 16.0 [facility] AGE 64 yrs [facility] al AFR AMER GFR >60 [facility] NON-AA GFR >60 mL/min [facility] ital Male GFR Inter prentation 20-49 yrs [...] >32 mL/min Normal ID Date Data Source [id number] 03/05/2020 02:41:00 AM [facility] Name Value Range Interpretation Code Description Data Miladys rce(s) Supporting Document(s) Magnesium [Mass/volume] in Serum or Plasma 1.7 MG/DL 1.7 - 2.2 [facility] ID Date Data Source [id number] 03/04/2020 08:14:[address] [facility] Name Value Range Interpretation Code Description Data Miladys rce(s) Supporting Document(s) [facility]YSIS [facility] sum[facility] URINALYSIS SOURCE R [facility] al COLOR yellow NORMAL: Yellow [facility] ospital CLARITY hazy NORMAL: Clear [facility] spital Specific gravity of Urine by Test strip 1.020 1.001 - 1.030 [facility] pH 5 5 - 9 [facility] al Glucose [Mass/volume] in Urine by Test strip NORM NORMAL: Negat [facility] Bilirubin.total [Presence] in Urine by Test strip NEG NORMAL: Negative [facility] Ketones [Presence] in Urine by Test strip NEG NORMAL: Negative [facility] Protein [Mass/volume] in Urine by Test strip 15 NORMAL: Negat [facility] Nitrite [Presence] in Urine by Test strip NEG NORMAL: Negative [facility] BLOOD NEG NORMAL: Negative [facility] Leukocyte esterase [Presence] in Urine by Test strip NEG NATASHA L: Negative [facility] Urobilinogen [Mass/volume] in Urine by Test strip NOR less lori n 1.0 mg/dL [facility] MICROSCOPIC Not Indicate [facility] H ospital ID Date Data Source [id number] 03/04/2020 12:24:00 PM [facility] [address] [facility] Emergency Department [address] [place] [address] Phone #: ext- [phone] 03/04/2020 11:58 Patient: [...] RNLactic Acid STAT 12:04 03/04/2020 12:18 Natasha Mcgowan MD; Rachid RNLDH STAT 12:04 03/04/2020 12:18 [...] (FirstTest) (NotHospitalized) (Not) (NotResident in [address] [facility] Emergency Department [address] [place] [address] Phone #: ext- [phone] 03/04/2020 11:58 Patient: JEREMI MALLOY Sex: F : 1955 Age: 65yCongregate CareSetting) (NotEmployed inHealthcare Setting)Clostridium Difficile STAT 17:11 03/04/2020 18:28 aHnkToxin Natasha Montero MD; Rachid PAULDIAGNOSTIC STUDY ORDERSOrder [...] 16:28 03/04/2020 16:44 Mcneil,Liquid PO 40 meq Natasha Montero MD; Lisa(NOW x1)Magnesium Sulfate 17:04 03/04/2020 17:23 Peter2 g IVPB X1 dose: 2 Natasha Montero MD; Rachid PAULgm (HIGH ALERTMEDICATION, X1)GENERAL ORDERSOrder Description Priority Entered Acknowledged Initialed[Electronically signed by Lisa Mcneil (18:50 03/04/2020)][Electronically signed by Natasha Montero MD (19:40 03/04/2020)][Electronically locked by Lisa Mcneil (18:50 03/04/2020)] Name Value Range Interpretation Code Description Data Miladys rce(s) Supporting Document(s) ID Date Data Source [id number] 03/04/2020 12:24:[address] [facility] [address] [facility] Emergency Department [address] [place] [address] Phone #: ext- [phone] 03/04/2020 11:58 Patient: [...] a day, prn [address] [facility] Emergency Department [address] [place] [address] Phone #: ext- [phone] 03/04/2020 11:58 Patient: JEREMI AMLLOY Sex: F : 1955 Age: 64yThe source(s) [...] rce(s) Supporting Document(s) ID Date Data Source [id number] 03/04/2020 12:24:[address] [facility] [address] [facility] Emergency Department [address] [place] [address] Phone #: [phone]- [phone] 03/04/2020 11:58 Patient: JEREMI MALLOY Sex: F : 1955 Age: 64yWeight: 83.2 kgHeight/Length: 64 inBMI: 31.5ALLERGIES: Quinolones, FLUOCINOLONE, Doxycycline, Tylenol, Spironolactone, PredniSONE, OCYCODONE, Metformin ,Keppra, Gabapentin, Codeine, Carisoprodol, Amitriptyline, NSAIDs Date/Time Medication Administered Medication OrderedStart NS [IV] IV NS 500 mL Bolus : Bolus [id number] 03/04/2020 Dose: IV Fluids mL (X1)Hank Rashid [...] rce(s) Supporting Document(s) ID Date Data Source [id number] 03/04/2020 12:24:00 PM [facility] [address] [facility] Emergency Department [address] [place] [address] Phone #: ext- [phone] 03/04/2020 11:58 Patient: JEREMI MALLOY Sex: F : 1955 Age: 64yDiarrhea.Dehydration.Hypomagnesemia.(Electronically signed by Natasha Montero MD 03/04/2020 19:40) Name Value Range Interpretation Code Description Data Miladys rce(s) Supporting Document(s) ID Date Data Source [id number] 03/04/2020 12:24:00 PM [facility] 1 Clinical Report - Nurses [facility] Emergency Department [address] [place] [address] Phone #: ext- [phone] 03/04/2020 11:58 Patient: JEREMI MALLOY Sex: F : 1955 Age: 64yTRIAGE Arrived by EMS. Historian: patient. Acuity: LEVEL 3. Chief Complaint: NAUSEA, VOMITING and DIARRHEA. Alert. No acute distress. Onset. (5 days ago). ( PATIENT IS 3 WEEKS S/P STEM CELL TRANSPLANT AT [facility]. PT HAS LYMPHOMA AND STATES SHE RECEIVED HER OWN STEM CELLS. ONCOLOGIST CONTACTED TODAY WHO ADVISED ER VISIT. PATIENT C/O DIZZINESS AND LIGHTHEADEDNESS STARTING 2 DAYS AGO.). No constipation, abdominal pain or fever. Last oral intake by patient was this morning (0400). Treatment GAS LINE REPAIRER: None. (UNABLE TO KEEP HER MEDICATIONS DOWN). EMS Treatment GAS LINE REPAIRER: See EMS report. SEPSIS SCREEN: SEPSIS SCREEN [...] Ramos R.N. 2 Clinical Report - Nurses [facility] Emergency Department [address] [place] [address] Phone #: ext- [phone] 03/04/2020 11:58 Patient: [...] or Coronavirus. 3 Clinical Report - Nurses [facility] Emergency Department [address] [place] [address] Phone #: ext- [phone] 03/04/2020 11:58 Patient: [...] Rashid RN 4 Clinical Report - Nurses [facility] Emergency Department [address] [place] [address] Phone #: ext- [phone] 03/04 11:58 Patient: JEREMI MALLOY Sex: F [...] from radiology by stretcher with mask and radiology scheduler. --13: Hank Rashid RN13:15 03/04/20. BP: 127/93. MAP: 104. HR: 101. RR: 16. O2 saturation: 98%. Pain level now: 0/10.--13:15 03/04/20 Hank Rashid RN13:45 03/04/20. BP: 112/81. MAP: 91. HR: 96. RR: 18. O2 saturation: 96%. --15:44 03/04/20 [facility] Bbnr810:15 03/04/20. BP: 128/77. MAP: 94. HR: 95. RR: 17. O2 saturation: 96%. --15:45 03/04/20 [facility] Fvzd203:45 03/04/20. BP: 136/84. MAP: 101. HR: 98. RR: 17. O2 saturation: 95%. --15:45 03/04/20 [facility] Ulze679:15 03/04/20. BP: 118/74. MAP: 88. HR: 99. RR: 17. O2 saturation: 95%. --15:46 03/04/20 [facility] Ojma735:44 03/04/2020 POTASSIUM CHLORIDE LIQUID PO PO Oral [...] Rashid RN 5 Clinical Report - Nurses [facility] Emergency Department [address] [place] [address] Phone #: ext- [phone] 03/04/2020 11:58 Patient: JEREMI MALLOY Sex: F [...] DISCHARGE 18:40 03/04/20. Departure time: 18:40 03/04/2020. [place] Coma Scale: 15- eyes open- spontaneous (4); [...] report given to Gretel PAUL). --18:47 03/04/20 Lisa Mcneil 18:41 03/04/20. Pain level now 0/10. --18:47 03/04/20 Lisa Mcneil.Locked/Released at 03/04/2020 18:50 by Lisa Mcneil Name Value Range Interpretation Code Description Data Miladys rce(s) Supporting Document(s) ID Date Data Source [id number] 03/04/2020 12:24:[address] [facility] 1 Clinical Report - Physicians/Mid Levels [facility] Emergency Department [address] [place] [address] Phone #: ext- [phone] 03/04/2020 11:58 Patient: [...] 3 WEEKS S/P STEM CELL TRANSPLANT AT [facility]. PT HAS LYMPHOMA AND STATES SHE RECEIVED [...] REMOVAL. 2 Clinical Report - Physicians/Mid Levels [facility] Emergency Department [address] [place] [address] Phone #: ext- [phone] 03/04/2020 11:58 Patient: JEREMI MALLOY Sex: F [...] 0/10. 3 Clinical Report - Physicians/Mid Levels [facility] Emergency Department [address] [place] [address] Phone #: ext- [phone] 03/04/2020 11:58 Patient: JEREMI MALLOY Sex: F [...] ED5C w Diff: (BERNADETTE: 03/04/2020 12:41) ( NdgRcvd 03/04/2020 13:21) Final results Test Result Flag Units (Reference) 4 Clinical Report - Physicians/Mid Levels [facility] Emergency Department [address] [place] [address] Phone #: ext- [phone] 03/04/2020 11:58 ------ [...] Male GFR Interprentation 20-49 yrs >60 mL/min Lgnjyd55-73 yrs >56 mL/min Normal 60-69 yrs >49 mL/min Normal 70-79yrs> 42 mL/min Normal 80 and above >35 mL/min Normal Female GFRInterpretation 20-39 yrs >60 mL/min Normal 40-49 yrs >58 mL/minNormal 50-59 yrs >51 mL/min Normal 60-69 yrs >45 mL/min Normal 5 Clinical Report - Physicians/Mid Levels [facility] Emergency Department [address] [place] [address] Phone #: ext- [phone] 03/04/2020 11:58 Patient: JEREMI MALLOY MRN: [id number] Sex: F : 1955 Age: 64y 70-79 yrs >39 mL/min Normal 80 and above > 32 mL/min Normal Lactic Acid: (BERNADETTE: 03/04/2020 12:41) ( MsgRcvd 03/04/2020 13:05) Final results Test Result Flag Units (Reference) LACTIC ACID 3.4 H MMOL/L (0.2 - 2.2) LDH: (BERNADETTE: 03/04/2020 12:41) ( [facility] 03/04/[facility] 13:17) Final results Test Result Flag Units (Reference) LDH 304 H U/L (135 - 214) Lipase: (BERNADETTE: 03/04/2020 12:41) ( MsgRcvd 03/04/2020 13:17) Final results Test Result Flag Units (Reference) LIPASE 13 U/L (13 - 60) Abdomen Multiview: (BERNADETTE: 03/04/2020 12:23) ( [facility] 03/04/2020 12:55) Canceled Reason(s): Abdominal Pain Reason(s): Abdominal Pain TRANSPORTATION: S IV? O2? Oxygen?(No) Room: ED.PROGRESS AND PROCEDURESCourse of Care: Pt is a 64 year old female who has multiple myeloma who had an autologous stem celltransfusion done in january at [facility]. She has done well. pt states that [...] called and spoke to her doctor at [facility]. She agreed with care plan.I called and spoke to Kavya. she agreed to admit. pt comfortable with the plan to admit here [facility]. Patient/family counseled. Disposition: Admitted to the Acute Inpatient Unit, Monitored. Condition: good and stable.CLINICAL IMPRESSION Diarrhea. Dehydration. Hypomagnesemia. 6 Clinical Report - Physicians/Mid Levels [facility] Emergency Department [address] [place] [address] Phone #: ext- [phone] 03/04/2020 11:58 Patient: JEREMI MALLOY Sex: F : 1955 Age: 64y(Electronically signed by Natasha Montero MD 03/04/2020 19:40) Name Value Range Interpretation Code Description Data Miladys rce(s) Supporting Document(s) ID Date Data Source [id number] 03/04/2020 12:24:[address] [facility] Addenda for JEREMI MALLOY VisitID: [id number] Date: 17:32MED REC REQUEST FAXED TO [facility] WITH PATIENTS MED LISTS ANDT-SYSTEMS OVERVIEW @ 1612(Electronically signed by Moreno Pineda - 03/04/2020 17:32)03/04/2020 17:54OVERVIEW FAXED TO [facility] AT 1541. LONI MALDONADO MADE AWARE(Electronically signed by Moreno Shrestha - 03/04/2020 17:54) Name Value Range Interpretation Code Description Data Miladys rce(s) Supporting Document(s) ID Date Data Source [id number] 03/04/2020 04:52:00 PM EST [facility] Name Value Range Interpretation Code Description Data Miladys rce(s) Supporting Document(s) COVID-19 [facility] This lab was ordered by [facility] and reported by [facility]. ID Date Data Source [id number] 03/04/2020 04:52:00 PM EST [facility] Name Value Range Interpretation Code Description Data Miladys rce(s) Supporting Document(s) COVID-19 [facility] and reported by [facility]. ID Date Data Source [id number] 03/04/2020 05:26:[address] [facility] Name Value Range Interpretation Code Description Data Miladys rce(s) Supporting Document(s) COVID-19 NOT DETECTED [facility] COVID-19 [facility]ENTER NOT DETECTED [facility] { PROCEDURAL CONTROL VALID KIT LOT [...] PATIENT MANAGEMENT DECISIONS. ID Date Data Source [id number] 03/04/2020 04:33:00 PM [facility] Name Value Range Interpretation Code Description Data Miladys rce(s) Supporting Document(s) Magnesium [Mass/volume] in Serum or Plasma 1.3 MG/DL 1.7 - 2.[address] [facility] ID Date Data Source [id number] 03/04/2020 01:54:00 PM [facility] Name Value Range Interpretation Code Description Data Miladys rce(s) Supporting Document(s) Phosphate [Mass/volume] in Serum or Plasma 4.0 MG/DL 2.5 - 4.5 [facility] ID Date Data Source [id number] 03/04/2020 01:20:00 PM [facility] Name Value Range Interpretation Code Description Data Miladys rce(s) Supporting Document(s) CBC W/AUTOMATED DIFF [facility] COMPLETE BLOOD COUNT Leukocytes [#/volume] in Blood by Automated count 4.4 10^3/uL 4.2 - [address] [facility] Erythrocytes [#/volume] in Blood by Automated count 3.27 10^6/uL 4. 20 - 5.[address] [facility] Hemoglobin [Mass/volume] in Blood 11.1 g/dL 12.0 - 16.[address] [facility] Hematocrit [Volume Fraction] of Blood by Automated count 32.0 % 3 7.0 - 47.[address] [facility] Erythrocyte mean corpuscular volume [Entitic volume] by Auto mated count 97.9 fL 81.0 - 101 [facility] Erythrocyte mean corpuscular hemoglobin [Entitic mass] by Automated count 33.9 pg 27.0 - 34.0 [facility] Erythrocyte mean corpuscular hemoglobin concentration [Mass/volume] by Automated count 34.7 g/dL 31.0 - 36.0 [facility] Erythrocyte distribution width [Ratio] by Automated count 18.0 % 11.5 - 14.[address] [facility] Platelets [#/volume] in Blood by Automated count 111 10^3/uL 150 - [address] [facility] Platelet mean volume [Entitic volume] in Blood by Automated count 10.5 fL 7.4 - 10.[address] [facility] Neutrophils/100 leukocytes in Blood by Automated count 74.3 % 37. 0 - 80.0 [facility] Lymphocytes/100 leukocytes in Blood by Manual count 12.6 % 25.0 - 40.[address] [facility] Monocytes/100 leukocytes in Blood by Automated count 11.0 % 3.0 - 8.[address] [facility] Eosinophils/100 leukocytes in Blood by Automated count 0.7 % 0.0 - 7.0 [facility] Basophils/100 leukocytes in Blood by Automated count 0.7 % 0.0 - 2.5 [facility] %IG 0.7 % 0.0 - 0.0 H [facility] al %NRBC 0.0 % 0.0 - 0.0 [facility] al Neutrophils [#/volume] in Blood by Automated count 3.26 10^3/uL 2.00 - 6.90 [facility] Lymphocytes [#/volume] in Blood by Automated count 0.55 10^3/uL 0.60 - 3.[address] [facility] Monocytes [#/volume] in Blood by Automated count 0.48 10^3/uL 0.00 - 0.90 [facility] Eosinophils [#/volume] in Blood by Automated count 0.03 10^3/uL 0.00 - 0.70 [facility] Basophils [#/volume] in Blood by Automated count 0.03 10^3/uL 0.00 - 0.20 [facility] #IG 0.03 10^3/uL 0.00 - 0.10 [facility] ospital #NRBC 0.00 10^3/uL 0.00 - 0.00 [facility] MANUAL DIFF NOT INDICATED [facility] RBC MORPH NOT INDICATED [facility] sp[facility] ID Date Data Source [id number] 03/04/2020 01:17:00 PM [facility] Name Value Range Interpretation Code Description Data Miladys rce(s) Supporting Document(s) Lipase [Enzymatic activity/volume] in Serum or Plasma 13 U/L 13 - 60 [facility] ID Date Data Source [id number] 03/04/2020 01:17:[address] [facility] Name Value Range Interpretation Code Description Data Miladys rce(s) Supporting Document(s) Lactate dehydrogenase [Enzymatic activity/volume] in Serum o r Plasma 304 U/L 135 - [address] [facility] ID Date Data Source [id number] 03/04/2020 01:17:00 PM [facility] Name Value Range Interpretation Code Description Data Miladys rce(s) Supporting Document(s) COMPREHENSIVE METABOLIC PANEL [facility] COMPREHENSIVE METABOLIC PANEL Sodium [Moles/volume] in Serum or Plasma 142 mEq/L 134 - 153 [facility] Potassium [Moles/volume] in Serum or Plasma 3.0 mEq/L 3.6 - 5.[address] [facility] Chloride [Moles/volume] in Serum or Plasma 100 mEq/L 98 - 107 [facility] Carbon dioxide, total [Moles/volume] in Serum or Plasma 31 MEQ/L 22 - [address] [facility] Glucose [Mass/volume] in Serum or Plasma 125 MG/DL 65 - [address] [facility] BUN 20 MG[facility]DL 7 - [facility] [Mass/volume] in Serum or Plasma 0.9 MG/DL 0.7 - 1.5 [facility] BUN/CREAT 22 8 - 27 [facility] al Protein [Mass/volume] in Serum or Plasma 6.3 G/DL 6.3 - 8.2 [facility] Albumin [Mass/volume] in Serum or Plasma 4.0 G/DL 3.9 - 5.0 [facility] Globulin [Mass/volume] in Serum by calculation 2.3 GM/DL 2.4 - 3.[address] [facility] A/G RATIO 1.7 0.8 - 2.0 [facility] Calcium [Mass/volume] in Serum or Plasma 9.1 MG/DL 8.4 - 10.2 [facility] Bilirubin.total [Mass/volume] in Serum or Plasma 0.8 MG/DL 0.2 - 1.3 [facility] Alkaline phosphatase [Enzymatic activity/volume] in Serum or Plasma 87 U/L 38 - 126 [facility] Aspartate aminotransferase [Enzymatic activity/volume] in Se rum or Plasma 9 U/L 5 - 40 [facility] Alanine aminotransferase [Enzymatic activity/volume] in Seru m or Plasma 10 U/L 7 - 56 [facility] Anion gap 3 in Serum or Plasma 11.0 mmol/L 8.0 - 16.0 [facility]GE 64 [facility] GFR >60 mL/min [facility] AFR AMER GFR >60 [facility] Male GFR In terprentation 20-49 [...] >32 mL/min Normal ID Date Data Source [id number] 03/04/2020 01:04:[address] [facility] Name Value Range Interpretation Code Description Data Miladys rce(s) Supporting Document(s) Lactate [Moles/volume] in Serum or Plasma 3.4 MMOL/L 0.2 - 2.[address] [facility] ID Date Data Source [id number] 01/29/2020 12:00:00 AM EST [facility] Name Value Range Interpretation Code Description Data Miladys rce(s) Supporting Document(s) SARS coronavirus 2 RNA panel N [facility] This lab was ordered by [facility] C19 TEST [facility] and reported by [facility]. ID Date Data Source URINE CULTURE 12/23/2019 08:07:27 AM EDT eCW1 ([facility]) Name Value Range Interpretation Code Description Data Miladys rce(s) Supporting Document(s) URINE CULTURE eCW1 ([facility]) ID Date Data Source UA URINALYSIS 12/23/2019 08:07:21 AM EDT eCW1 ([facility]) Name Value Range Interpretation Code Description Data Miladys rce(s) Supporting Document(s) UA URINALYSIS eCW1 ([facility]) ID Date Data Source [id number] 12/23/2019 08:07:15 AM EDT eCW1 ([facility]) Name Value Range Interpretation Code Description Data Miladys rce(s) Supporting Document(s) Hemoglobin A1c/Hemoglobin.total in Blood 6.1 HEMOGLOBIN A1c eCW1 ([facility]) ID Date Data Source [id number] 10/31/2019 05:05:00 PM EDT [facility] Name Value Range Interpretation Code Description Data Miladys rce(s) Supporting Document(s) Free Shaft Lt Chains,S 13.4 mg/L 3.3-19.4 [facility] Free Lambda Lt Chains,S 2.0 mg/L 5.7-26.3 Below low normal [facility] Shaft/Lambda Ratio,S 6.70 0.26-1.65 Above high normal [facility] ID Date Data Source [id number] 10/14/2019 12:00:00 AM EDT [facility] Name Value Range Interpretation Code Description Data Miladys rce(s) Supporting Document(s) SARS coronavirus 2 RNA panel N YSDOH This lab was ordered by [facility] and reported by [facility]. ID Date Data Source [id number] 10/04/2019 02:21:00 PM EDT [facility]ENT ([facility], ) Name Value Range Interpretation Code Description Data Miladys rce(s) Supporting Document(s) Surgical pathology study Laboratory test result [facility] ([facility], ) FINAL DIAGNOSIS A - Gastric [...] M.D. 11/12/2019 0847 ID Date Data Source [id number] 09/29/2019 09:20:00 AM EDT [facility] Name Value Range Interpretation Code Description Data Miladys rce(s) Supporting Document(s) SARS coronavirus 2 RNA [facility] This lab was ordered by [facility] and reported by [facility]. ID Date Data Source [id number] 09/21/2019 11:15:00 AM EDT [facility] Name Value Range Interpretation Code Description Data Miladys rce(s) Supporting Document(s) SARS coronavirus 2 RNA [facility] This lab was ordered by [facility] and reported by [facility]. ID Date Data Source [id number] 07/18/2019 09:44:52 AM EDT [facility] Name Value Range Interpretation Code Description Data Miladys rce(s) Supporting Document(s) Progress Note [facility] IZGVYk6fKqFFMhXg98/UOKyqCJChr7StRTqsDIw4QHtbNZGlL1FeNYO5fW4eMKJ8ADuKQgUnNqOdSYH8 lbm [file] svyGBvPbf+yo+oH95cn89Uphas6xXoEg49Qszwn/9C5orj64cOVxTvOJXK+button cutter/2SwQtbm+ZECma2gJo [file] ID Date Data Source Immature Platelet Fraction 05/24/2019 12:00:00 AM EDT eCW1 ( [facility]) Name Value Range Interpretation Code Description Data Miladys rce(s) Supporting Document(s) 11.9 0.0-9.59 IMMATURE PLATELET FRACTIO N % eCW1 ([facility]) ID Date Data Source Comprehensive Metabolic Profile (CMP) 05/24/2019 12:00:00 AM EDT eCW1 ([facility]) Name Value Range Interpretation Code Description Data Miladys rce(s) Supporting Document(s) 15 7-18 BLOOD UREA NITROGEN eCW1 ([facility]) 68 70-100 GLUCOSE, FASTING eCW1 ([facility]) 0.96 0.55-1.30 CREATININE FOR GFR eCW1 ([facility]) 3.7 3.5-5.1 POTASSIUM SERUM eCW1 ([facility]) > 60.0 >45 GLOMERULAR FILTRATION RATE eCW 1 ([facility]) 142 136-145 SODIUM LEVEL eCW1 ([facility]) 8.7 8.8-10.2 CALCIUM LEVEL eCW1 ([facility]) 101 98-107 CHLORIDE LEVEL eCW1 ([facility]) 35 21-32 CARBON DIOXIDE LEVEL eCW1 ([facility] hospital) 8 7-37 AST/SGOT eCW1 ([facility]) 8.6 6.4-8.2 TOTAL PROTEIN eCW1 ([facility]) 0.5 0.2-1.0 BILIRUBIN,TOTAL eCW1 ([facility]) 33 12-78 ALT/SGPT eCW1 ([facility]) 87 45-117 ALKALINE PHOSPHATASE eCW1 (Critical access hospital) 3.4 3.2-5.2 ALBUMIN eCW1 ([facility]) 0.65 1.00-1.93 ALBUMIN/GLOBULIN RATIO eCW1 ([facility]) ID Date Data Source CBC with Differential 05/24/2019 12:00:00 AM EDT eCW1 ([facility]) Name Value Range Interpretation Code Description Data Miladys rce(s) Supporting Document(s) 5.5 4.0-10.0 WHITE BLOOD COUNT eCW1 ([facility]) 11.6 12.0-15.5 HEMOGLOBIN eCW1 ([facility]) 35.3 36.0-47.0 HEMATOCRIT eCW1 ([facility]) 3.47 4.00-5.40 RED BLOOD COUNT eCW1 ([facility]) 33.4 27.0-33.0 MEAN CORPUSCULAR HEMOGLOB IN eCW1 ([facility]) 101.7 80.0-96.0 MEAN CORPUSCULAR VOLUME e CW1 ([facility]) 15.6 11.5-14.5 RED CELL DISTRIBUTION WID TH eCW1 ([facility]) 32.9 32.0-36.5 MEAN CORPUSCULAR HGB CONC eCW1 ([facility]) 91 150-450 PLATELET COUNT, AUTOMATED eCW1 ([facility]) 71.0 36.0-66.0 NEUTROPHILS % eCW1 ([facility]) 21.0 24.0-44.0 LYMPH % eCW1 ([facility]) 5.7 0.0-5.0 MONO % eCW1 ([facility]) 1.3 0.0-3.0 EOS % eCW1 ([facility]) 0.5 0.0-1.0 BASO % eCW1 ([facility]) 3.9 1.5-8.5 NEUTROPHILS # eCW1 ([facility]) 1.2 1.5-5.0 LYMPH # eCW1 ([facility]) 0.3 0.0-0.8 MONO # eCW1 ([facility]) 0.1 0.0-0.5 EOS # eCW1 ([facility]) 0.0 0.0-0.2 BASO # eCW1 ([facility]) ID Date Data Source [id number] 04/24/2019 05:53:30 PM [facility] Name Value Range Interpretation Code Description Data Miladys rce(s) Supporting Document(s) Progress Note [facility] DCXYVm9zYaYKXiUa35/EPVmkCPIrb2QoJNppYHv0ZGfqVUFzF5RdDSZ4xH6uKHC5DLoJTsYaUwOsSvGa [facility] UgXduEWgBuLPBwLruTIbHqBEqpXwfzhWLgCW9ZlDQ5ZPXwG29sIJKwLTQaD4OvBID0NiL+Ug3GJQKmmK FdTO7SKwsZ3F8lk0fSRY0l9L4fOXTZv7fsxvw7bxYWxMpJvVexflCs+3KpfSCWnceDfK6909ncDceuwN 7snUGmKL6tLM9Adhfa+8yQQhT/fhPbgWdZlpj/t/gz lOG6hNw//IDE9xkLcD3XL0mX1PJmuRVFRVH91dqbS/NuJ5RRANORO94+iwEJdQ1y5trMM4d5ovV0gLz6 J24Xb08pSoTV6tfrylDw8AP51+wyw7Y5K+SfJj25dalgigPBrdFdWdNb7BesU8AEwKOkrqoRXkS0n3Lt 89ZcVel99vHwozwStqvzwnS2ieRohLrTj0u1uGggm2 MiuMXHDawm9LJxfcUy4Va5AhMy5ErRA3EcjVWQOJEldm9uqceati+N5w8R9QXPOZCAsNcU+lSamP58Db d64M+EU1DxVTQ2Mw6zChGvcbLzrkX6q46SOtljjRtcQ0byGKLmmBkd1abGAvbLQzqVusZf++fvzDFTgi 6CwIsub1VCgqS3du9c09kAv+cFKyq91+ulycSgeZbg B9rY7l8q9Kg2wMeXMCjKoN13gtV8H1i44FM1DElSojMfmEW/0+E/y5PCAsGyXbuuAdU7omjIdh8svxKy ZsV4c0M/QexddIVvHIMf+IzP7BXCeYmgzAtjlocgTgC7CaZsOEyr2v0JRw8QcAYIgd0VGNLYeMRmWgQc cSVqDMYjg+YnZK5kmQJ3f12ctClUbaueDiaeQ1p/ mQJnrtYi38xFp9AV6F2j+NUKyXTzhWkM/OG2KCimWBFeJr6aDzUeOOfy8ue0PW1xWhWBagY5O7LATW7L 11IU3eJv+fmFQMrT6K7hbknfP/fuWUwzKigRxVjQpKK3nw6PiO9KzRriBorjdgxujgd7p36R9CW4oKNa Kz6cPtFT7LIzgIRKwUONdgYVWYg6I87aH/FoS730Sk w7i1hBm6PgtnzZQIEnnD+wd18A/AAZpnhljkyt5Q5uQ4rMuqoiDJFv3G2H859KgYG+uuDBgSMaYX7/Jh tGXavTSZR6v1XDmX6FQBVN+dnH6CVOnsjMahzAE1kaBLkATbnjiJooFMzTG+ByZsCLDIsmUW5Bl998AY qNLPFh3wCsuNwRE+CulACGeJkpdXezQ2siPuwE3N0A wRKekvmCv47QqENehHcNyKMFnvPFGPfTrbRzOJXIJoxXdqPyaE8nb8a3YJU80DLHGE4eUhAG06gQYYQd N49fi7wCwbagHpemdb8szeu09F06XCiKeVIjufQROU3HVeGqYxT6IZqYm1xJh+Jy4CgDAOoANNgVvmYB lpAtB6e53c0rT7614G65L99ivd7QGSFb6Jn1BloxXs [file] zUiDkc8ksJ2FU76OWQ5/q5KDws26iX+FgoFdieJz/++LA POSTA/jU1cPpRDAuCgf/BlkF2TMoVf1F8K4o5Mz [file] MDAwMDAxNyAwMDAwMCBuDQowMDAwMDcyODAzIDAwMD FqGD7NEwAtFIZtNuD9QxstMELcFGDxai1BADXtWJZoFWY6EhIgICHcDEGkRWauFXGbSTEnNjD3IZHzCT NdLN6XEaKxFWVaWLR9EzKxDUXlDQDrhs6HCTHzPDBoUcF8UCDdSEJbZXOqYEoxMENzVRT2GsB0TOYbJU PdPU0DByJbOOTdNJRiAkDcTKMgBNElus8WSMWqELWy FMH2LTIeYJEeGRGfPEqfIIMdVMI9XCOpMNShRIZqWW3PGeCzGCOzBSS3ZBjpQBAyMLIxfu4RADChAUUl YeX5MYXwWGPxPTTaXWrfSUTcCBK2UVepPKSqPQAhOD0RKzQyDEDfDAj8IGatJRKrQPLpil0BPYKvPTFd WKZ6IpInSGYiTBMzHFusIHKtKSSjDTJ1MYXcUEYaKR 8IMzFcUQHuHqX7FoIsPOBtDVQyly6GXLFrLDByEStuYGRbOJRwTWJcPHmgDMXiMDV0DVY3TYStFEKuSH 4NQcDbMCChZeh9UIurAZRaZYYgkq3QYRVjSDAmMeu3HeJwXKIsTBHvZCpoBZCeLQTpTaJdZWUnDQQpNN 3TNnXhXPMzEaR6AwrnSKVcCVGugq6RCNXnYUZfZubc KuLuNHDkLJOkUDaxUWReBLJ9KBAuDZXpDEXeQB5NDbHgEVYvXdP1RamiVZQvVTWmxp9TIJVsOEOlKbi6 PZSqFYZaPDLgLJusRZWsGMD9WzFtYCZfLFIvHD1BPnZgQHDoZke6YoewUJNtXNSwwr9KFABdVHJ0VQk7 QRGnBFIuVJGwDHqzTFBpYYAcINt3UFIfEDMkCF7CDu NeKXZeVFGkJBczDAYiZELgoi9ZMZTcGZG4YRNmAQXpTPDbZCYuJFemOQCrFEW6ZMm5MJFrIXHgSJ0IDa XqFJAuPYdpASNcYIQiJDEylo4LTABuPBF0KGDvOjDpMWCcLGByDVtyMVRcWEB5MrFzHHEmAIFpRS3VTq ViZORyIZQ3ZdShOXBbZVJpqy9OYPMyFIX9Onf2EmAv FVMpAZCtPMbxGVSuJNZ3MGfaWCKnDYDrUS3RYiPtBAWzVSS4GVtwGMTaYJZtyc1FVLVoCHQ3MrXwMwJe DNTlTVMxLTmjMOLgIUD9BMLtNUBeFCXaDU7GQbMgQJZwIEtaEHGdFXBqZKGhpm5DFTZyCAI3PgF5GLOh CEEoEIKvWXekRRHyZIK6LlEmTFDtXJUqRS5HXpJvRT FlYKj4ZhAxOEZqJVOvql4GPSVaILY5NMmeAcHaCXVjKXPiXNlwRRLgMNH0IGFiTHRtJAWcVG7FCzAbOW CeOpK3TDEnFANwVWAycv9XRRBuODK9MNe6ImByVAUpIQXiRXsvXKBsAHtgOJg9GUGtUABjAK9ABaZkPJ NrPkCzKlNaJQYsNHZxaa5KMRJtHOF1MHU2KTSfODCe OSExEQftPLLeYKwdRMH8ZUPpGBEvKJ5ACrVjZVBgQoC7DVMmOJXbOWOdys1RZNKgKNQ4Qhm4ZVYwIGLk JIQtLXuhTEVbBIjjNBs4EFMaNOQrEL0ZDiMdGFChZtJ0RxtxXCMsCQSxgc3JBJJuVNQ1HVrpLSFpYEDe OXIqWSllUDUlAGm5ZLy6UOBcZGBvCO8SGrYaTNasSG BKNiv3LBsbS4u6ILK9Zh5PR7Inv1OpOzUfWZBWVKgtXB9zdgYaAESjZz2NQ3gUGennYCEeLbBpV2CaLO CgYwtyGqYnOgumIMYqFXGeMUWtWM8hHAG9QNEjVtQmYCJaORN6BUAvRLIuITW7M0VaNoAvIMT6UeUbSY 2JTe4UYwL2PMI5oNTkOe0JCjMqKpxKOdUzXQ2RXYn= ID Date Data Source [id number] 03/21/2019 03:21:01 PM EST [facility] Name Value Range Interpretation Code Description Data Miladys rce(s) Supporting Document(s) Flow cytometry study [facility] ID Date Data Source [id number] 03/22/2019 05:49:00 PM EST [facility] Hematopathology Report See Addendum Rosy wName: JEREMI MALLOY MMRN: [id number] Number: [id number] Date: 03/20/2019 00:00Received Date: 03/21/2019 13:27Physician(s): MELIZA LANDRUM MD, YILIN MDCopy To:[facility]) ReceivedA: Bone Marrow, Flow Cytometry, received 1 [...] cells): 2 % N. Band Forms55 % Yxigqlgudbo56 % Onuyjfxxkvx43 % Large Granular Lymphocytes 4 % Monocytes-------100 % A peripheral blood film is reviewed. Rouleaux formation is increased.BONE MARROW ASPIRATE:Differential Count (100 cells):40 % Erythroid Precursors 1 % Blasts 3 % Promyelocytes 5 % N. Rmmgenutxg59 % N. Metamyelocytes and Band Forms11 % Neutrophils 3 % Szvnbycvcjx25 % Lymphocytes 1 % Monocytes 7 % Plasma Cells--------100 % Morphology: A single hypercellular particle is seen. No dysplasia ispresent. Megakaryocytes are normal. Some plasma cells appear immature withsmall nucleoli. Lymphoid Panel: [place] [id number] following markers were assayed: CD45 (gate), CD2, CD3, CD4, CD5, CD7,CD8, CD10, CD19, CD20, CD33, CD34, CD38, CD56, CD57, CD64, CD117, CD123,HLA-DR, Shaft, and Lambda.# events: [id number]: 92%Flow Cytometry Differential (CD45/SSC)Lymphocyte Blossom: 51%CD45 dim Blossom: 1%Monocyte Blossom: 2%Granulocyte Gat e: 35%Nucleated/Erythroid Blossom: 3%The lymphocyte gate showsB-cells (CD19): 4%T- cells (CD3): 84%NK-cells (CD3-/CD56+): 9%Shaft/Lambda Ratio: 1.4CD4/CD8 Ratio: 2.7Results: (expressed as % of lymphocyte gate)T-cell Markers: CD2 = 90, CD3 = 84, CD3/CD4 = 62, CD3/CD8 = 26, CD5 = 84,CD7 = 83, CD3/57 = 21B-cell markers: Shaft = 2, Lambda = 1, CD19 = 4, CD20 = 4, CD19/10 = 0,CD19/CD5 = 0, CD38/CD20 = 3Light chain as % of B-Cells: CD19/Shaft = 50, CD19/Lambda = 38,CD19/CD5/Shaft = 1, CD19/CD5/Lambda = 0,CD19/CD10/Shaft = 3, CD19/CD10/Lambda = 3NK cell Markers: CD56 = 20, CD57 = 24Other Markers: CD10 = 0, CD38 = 53Results: (expressed as % of CD45 dim gate)T-cell Markers: CD2 = 20, CD3 = 14, CD3/CD4 = 11, CD3/CD8 = 5, CD5 = 27,CD7 = 21, CD3/57 = 2B-cell markers: Shaft = 6, Lambda = 3, CD19 = 3, CD20 = 3, CD19/10 = 2,CD19/CD5 = 0, CD38/CD20 = 3Light chain as % of B-Cells: CD19/Shaft = 25, CD19/Lambda = 8,CD19/CD10/Shaft = 0, CD19/CD10/Lambda = 0NK cell Markers: CD56 = 9, CD57 = 5Basophil Markers: CD123 (HLA-DR-) = 4Other Markers: CD10 = 12, CD38 = 67, CD33 = 24, CD34 = 23, CD64 = 3, CD117= 17, CD123 = 9, HLA-DR = 40Myeloma Panel for [facility] [id number] following markers were assayed: CD45 (cell gate), CD138 (plasma cellgate), CD19, CD20, CD38, CD56, cytoplasmic Shaft, and cytoplasmic Lambda.(Please note, that Cytoplasmic Shaft and Cytoplasmic Lambda are used todetect plasma cells, while surface Shaft and Lambda are for lymphocytes).# events: [id number] NOTE: Routinely a minimum of 500,000 events are collectedin each panel tube. Due to sample cellularity and/or processing thisnumber was not ac hievable for this sample.Viability: 90%Flow Cytometry Differential:Lymphocyte Blossom: 34%CD45 dim Blossom: 0%Monocyte Blossom: 4%Granulocyte Blossom: 55%NRBC Blossom: 4%CD138 Plasma Cell Blossom: 0.5%Results: (expressed as % of lymphocyte gate)B- Cells (CD19): 4%CD19 = 4, CD20 = 4Light chain as % of B-Cells: Cytoplasmic Shaft/CD20 = 48, CytoplasmicLambda/CD20 = 33Results: (expressed as % of total CD138+ plasma cell gate)CD38 = 99, CD56 = 98, CD38/56 = 98, CD19 = 3, CD20 = 73Cytoplasmic Shaft/CD138 = 90, Cytoplasmic Lambda/CD138 = 0 Results- [...] were developed and theirperformance characteristics determined by [facility] Pathology department.They have not been cleared or approved by the US Food and DrugAdministration. The FDA has determined that such clearance or approval isnot necessary. Name Value Range Interpretation Code Description Data Miladys rce(s) Supporting Document(s) ID Date Data Source [id number] 03/27/2019 03:24:00 PM [facility] Cytogenetics ReportName: JEREMI MALLOY MM RN: [id number] Number: [id number] Date: 03/20/2019 00:00Received Date: 03/21/2019 13:59Physician(s): MELIZA LANDRUM MD, YILIN MDSpecimen(s) ReceivedA: Bone Marrow (Karyotype Analysis)Clinical HistoryLytic lesions, seronegative rheumatoid arthritis, recently treated forlatent TBTEST REQUESTED/PERFORMED: Karyotype Analysis and Fluorescence in situhybridization - FISH DiagnosisFISH RESULTS:Multuple Myeloma panel:nuc jeannine(CDKN2C,CKS1B)x2[97/100],(5p15.31,EGR1)x3[90/100],(K07Q554,13q34)x2[95/100],( IgHx1)[91/100],(TP53x1,A04U7r5)[25/100],(TP 53x1,BC20vxlq0,D49X4b7)[17/],(TP53,D17Z1)x1[100]CEP 7/B8Z753 (7q31): nuc jeannine (D7Z1,K6H096)x2[98/100] CEP 9: nuc jeannine (D9Z1x3)[43/100],(D9Z1x4)[38/100] INTERPRETATION: Hyperdiploidy [...] ([id number]). Electronically Signed By Piper Wesley, Ph.D., [facility], Director ofCytogenetics 03/27/2019 15:24:33Gross DescriptionDATA:SPECIMEN TYPE: BONE MARROW (Karyotype Analysis) / ISOLATED PLASMA CELLS(FISH) CULTURE TYPE: 24 HOUR UNSTIMULATEDADDITIONAL CELLS EVALUATED FOR FISH: 700 ISCN NOMENCLATURE: nuc jeannine(CDKN2C,CKS1B)x2[97/100],(5p15.31,EGR1)x3[90/100],(D7Z1,B5O207)x2[98/100],(D9 Z1x3)[43/100],(D9Z1x4)[38/100],(S48X097,13q34)x2[95/100],(IgHx1)[91/100],(TP53x1 ,D17Z1 x2)[25/100],(TP53x1,BC24lvqg8,F04C2v6)[17/100],(TP53,D17Z1)x1[10/100]COMMENTS:Fl uorescence in situ hybridization (FISH) studies were performed toevaluate specifically for abnormalities of chromosomes 1, 5, 7, 9, 13, 14,and 17, which have been associated with multiple myeloma. The probes wereobtained from [employer] or [employer]. Hybridization wascarried out as per the stated [...] - 2 signals each locus CEP 7/LSI S4D314 D7Z1/7q31 greenorange 100 98% - 2 signals each locus CEP 9 D9Z1 green 100 43% - 2ynpainy15% - 4 signals 19% - 2 signals H43Q876 +control 13q14.213q34 spectrum orange/redspectrum green 100 95% [...] rce(s) Supporting Document(s) ID Date Data Source [id number] 03/11/2019 09:44:00 AM EST [facility] Name Value Range Interpretation Code Description Data Miladys rce(s) Supporting Document(s) Surgical pathology study (SEE NOTE) [facility] FINAL DIAGNOSIS Gastric antrum, biopsy: [...] MD 03/14/2019 1121 ID Date Data Source [id number] 03/10/2019 01:04:55 PM EST [facility] Name Value Range Interpretation Code Description Data Miladys rce(s) Supporting Document(s) Progress Note [facility] NJDIOk0oKeQDSwBh95/WFLgzNUSqd1GpPUzgGVb9YVzsDLExW8RbZRG9iO5fXNS6AAtRHxDqSShpUdD1 [facility] [file] AgICAgICAgICAgICAgICAgICAgICAgICAgICAgICAg ICAgICAgICAgICAgICAgICAgICAgICAgICAgICAgICAgICAgICAgICAgDQogICAgICAgICAgICAgICAg ICAgICAgICAgICAgICAgICAgICAgICAgICAgICAgICAgICAgICAgICAgICAgICAgICAgICAgICAgICAg ICAgICAgICAgICAgICAgICAgICAgICAgDQogICAgIC AgICAgICAgICAgICAgICAgICAgICAgICAgICAgICAgICAgICAgICAgICAgICAgICAgICAgICAgICAgIC AgICAgICAgICAgICAgICAgICAgICAgICAgICAgICAgICAgDQogICAgICAgICAgICAgICAgICAgICAgIC AgICAgICAgICAgICAgICAgICAgICAgICAgICAgICAg ICAgICAgICAgICAgICAgICAgICAgICAgICAgICAgICAgICAgICAgICAgICAgDQogICAgICAgICAgICAg ICAgICAgICAgICAgICAgICAgICAgICAgICAgICAgICAgICAgICAgICAgICAgICAgICAgICAgICAgICAg ICAgICAgICAgICAgICAgICAgICAgICAgICAgDQogIC AgICAgICAgICAgICAgICAgICAgICAgICAgICAgICAgICAgICAgICAgICAgICAgICAgICAgICAgICAgIC AgICAgICAgICAgICAgICAgICAgICAgICAgICAgICAgICAgICAgDQogICAgICAgICAgICAgICAgICAgIC AgICAgICAgICAgICAgICAgICAgICAgICAgICAgICAg ICAgICAgICAgICAgICAgICAgICAgICAgICAgICAgICAgICAgICAgICAgICAgICAgDQogICAgICAgICAg ICAgICAgICAgICAgICAgICAgICAgICAgICAgICAgICAgICAgICAgICAgICAgICAgICAgICAgICAgICAg ICAgICAgICAgICAgICAgICAgICAgICAgICAgICAgDQ ogICAgICAgICAgICAgICAgICAgICAgICAgICAgICAgICAgICAgICAgICAgICAgICAgICAgICAgICAgIC AgICAgICAgICAgICAgICAgICAgICAgICAgICAgICAgICAgICAgICAgDQogICAgICAgICAgICAgICAgIC AgICAgICAgICAgICAgICAgICAgICAgICAgICAgICAg VRVpPOQcTFOwKNQdXFOxAJZpNBQxCCTrLATzHQBeHNBkBNVnGXDiGVLhNWSxVKSdNOYuQSk6R0fjQBXt NRUkGU7jWTz4Sz1+BPoPHrLaVBQ6zoYqrD1IRM3fa1IvVMuxQGLpx2PqYSo9FU0UOFNvODuyFM7VSJbq er6HONHwCNFubTDBs3iaCgPpTHM2HQXjRlxcYY7PEA HkQ5cekuQoEVLjEYXLOCmyKJFHTJoyUFCADPWnSWEqPpZsWvPyDEPzYJAyVUGHSLT4VPDqOvCjNBsmDR 7Ms7QpjNN2IAa+Qt3NKD0hc1OmSTlpRJKpRQ8wih4ARCpFJiBpF4VzfyP0NCV5QOPhMk4CFRHzCUEjeL RpRHIhCBSSWaXgK0LkgV62EULMCc9+DQplbmRvYmoN ZvH5VBRsy9CwNSy4XA5ZNIFyDBz3mWQxBAXhF5Wyj1ElEq70GMLaXhnmI8tzsufrkpMiEKBQDC5jhHds XK7SGMN2VTVcAgUrAaYlIHgdTVZ8ZGOgNR0uJVgfNV7EVSD3AKpvDKLqGEWwU4dIZqJyDBVzJMTltApo XF1GSiFgO3XufqRfjTCkHTKzBOIDMo0+DQplbmRvYm bTVbY9WFMqs0VnZXl0HK3VCMFnVPblXG6CJJEhcQ7tJZtiIY4CAwBwTdFqUEWWHgFoB10tqVRqBLu1D7 VtYmVkZGVkRmlsZXMgPDwvTmFtZXMgWyBdDQogID4+ID4+DDgiSI1PVYjvzjJlJZCjSm8OAFBmVFXdOQ 3xMJYuUGRuS3I7lLegYGHBEuJaG4tmwudxME8fFVLr Y289lRbagoXsWMC1IFOnBp5PJAVxMEM8OTQkfCDtYkYbANTJFSmfZA3QyUJuCAC2oC0pRLdxFASvMKKw W9xKRlYakMbcKS57yAhlgfNfbIUkCCj+Sa6DMS4cs5KhPQk5pkKkQEdjFOX2LOxoMYQxLSVqJVOyIOC9 XHQ9QUIJVqXoISVcWDEtNTtaSRWvOXCtzh4HXGTqRZ EwTWQ6LoRbSOXgDUOpPArrTFWtQTP7Gas1PMGvLIUvIE7EVnOySOZbGSRcXJmnNCJnICZycc9YRZYnVD GhNsyxXpKyXYVpZKWiEZyjGWBrDQD0RFD9QPYdYBQdGQ6PHcQrCOOkKLtuIaVkYJKqZZMdhq1EWZZgEO ZeNdP8ELPzJKRxKZZjWMlwOWUuBSEqAptsRLCfRDVo WG1CWzNtFKThMUN5IufyCPMwRXAbyf3TEYXtQGAmWmI5VCEtMCVoJAVfUXvvEZRfQZFwRBAnEWRmCBLb DA0SUsVdJUCiNAtmBiCuNXAlFVGgzj8YTSIcAFCvMyTnEdAvYRWdHKPtFQulKVQzAAQ9IVD6VGPuJPYu AZ1ERoXyJDUbPZs7WpSnWBXaZMZlei7XJSDwOFOoUZ T8PsUvTYFtNUHmJLsgLRHqADKtIepgOOTvVPUbVC0FLxHbAALlXiK4OeHxYFJfEGTmkl6BSVOmDGHbCk zlKZLlGWVeUAIuRCbrIQOeUGIlMBWaUJDpPTKxKQ2CCiMiTSJjLzD1KvNpBLCiTBIyff7BERRuZQHiKI D4YsVgEVAvGJUlWOaxOKAsZPJ9CqNqMPIcABHlIX2S DwGhVRZmGzQ7DAErLKXfBMTwpc4KBZSkJCJoYhMaLlLdCVWwQTCzPLsxXOJfJHN3RrM2ELStQKFlHG2N NhHmMFVkHqS4UbMlZKUvXBRebo0SHHGeHNUsTfxgSFTgVMWsLRCjSTmvBTPlHPU9QqH9PBQnRFXqTN1N LcThXZXnEtm5GPNdPZXlGICbrb8WWVTxRUUiRQUxCW PgLHGsOYRxPIocFTIcMJD8HSR4VIVnLLHwWW9BOyKcAPQxLlb6OwXgENNnBXKaby7TDNEiKGSuYRb4Qd IqRQBeJCCoMXhwFCJsNFLpBDCtZHEpLLKuTC7HNaHqQGlgRUHLEjy2HItrM0m9FTQlSw1FT6Kgg5GnVf BxSDOLFQzmSY7gfyImPQRtYd7NO9pGOeh9UXHiM8V5 KavuOSmbAMY1SEvvHAIcBQmjUxqgVgarDU7nBXZ0BHSkCya0EsY4IPAmOiq6VNO1CfJ1QYFzU6FlQoIs MzIbCE0GRr1EQbF6CSF4vEDyQc7FECSsNOEZOxNnDX3ZJYx= ID Date Data Source URINE TOTAL PROTEIN 24 HOUR 02/21/2019 12:00:00 AM EST eCW1 ([facility]) Name Value Range Interpretation Code Description Data Miladys rce(s) Supporting Document(s) 210.0 50-150 TOTAL PROTEIN 24 HOUR URI NE eCW1 ([facility]) 6.0 0-12 URINE TOTAL PROTEIN eCW1 ([facility]) ID Date Data Source URINE CREATININE 24 HOUR 02/21/2019 12:00:00 AM EST eCW1 ([facility]) Name Value Range Interpretation Code Description Data Miladys rce(s) Supporting Document(s) 3500 TOTAL VOLUME, URINE eCW1 ([facility]) 1309.0 600-1800 CREATININE 24 HOUR, URINE eCW1 ([facility]) 37.4 CREATININE, URINE eCW1 ([facility]) ID Date Data Source LDH LACTATE DEHYDROGENASE 02/19/2019 12:00:00 AM EST eCW1 ([facility]) Name Value Range Interpretation Code Description Data Miladys rce(s) Supporting Document(s) 138 84-246 LDH LACTATE DEHYDROGENASE eCW1 ([facility]) ID Date Data Source SERUM PROTEIN ELECTROPHORESIS 02/19/2019 12:00:00 AM EST eCW 1 ([facility]) Name Value Range Interpretation Code Description Data Miladys rce(s) Supporting Document(s) 42.5 55.8-66.1 ALBUMIN % eCW1 ([facility]) 7.7 7.1-11.8 WCKEL-8-WHMIMAKUV % eCW1 ([facility]) 4.0 4.7-7.2 QMQY-3-YNFBGTEZQ % eCW1 ([facility]) 3.2 2.9-4.9 QGRJA-6-RJGBYWMM % eCW1 ([facility]) 14.3 3.2-6.5 EBLT-4-XDHYFOQZU % eCW1 ([facility]) 4.08 3.29-5.55 ALBUMIN eCW1 ([facility]) 1.3 11.1-18.8 GAMMA GLOBULIN % eCW1 ([facility]) 0.31 0.17-0.41 JGTPW-1-MQJLZOCIK eCW1 ([facility]) 0.74 0.42-0.99 VAMDS-4-QZAPJTTIU eCW1 ([facility]) 0.12 0.65-1.58 GAMMA GLOBULINS eCW1 ([facility]) 9.6 6.4-8.2 TOTAL PROTEIN eCW1 ([facility]) 3.96 0.19-0.55 XHRC-7-CQBPJEKXG eCW1 ([facility]) 0.38 0.28-0.60 FMQN-5-SVJTDAIIQ eCW1 ([facility]) SEE COMMENT SPEP INTERPRETATION eCW1 ([facility]) ID Date Data Source MAGNESIUM LEVEL 02/19/2019 12:00:00 AM EST eCW1 ([facility]) Name Value Range Interpretation Code Description Data Miladys rce(s) Supporting Document(s) 1.8 1.8-2.4 MAGNESIUM LEVEL eCW1 ([facility]) ID Date Data Source Basic Metabolic Profile (BMP) 02/19/2019 12:00:00 AM EST eCW 1 ([facility]) Name Value Range Interpretation Code Description Data Miladys rce(s) Supporting Document(s) 119 70-100 GLUCOSE, FASTING eCW1 ([facility]) 13 7-18 BLOOD UREA NITROGEN eCW1 ([facility]) > 60.0 >45 GLOMERULAR FILTRATION RATE eCW 1 ([facility]) 0.96 0.55-1.30 CREATININE FOR GFR eCW1 ([facility]) 140 136-145 SODIUM LEVEL eCW1 ([facility]) 3.6 3.5-5.1 POTASSIUM SERUM eCW1 ([facility]) 101 98-107 CHLORIDE LEVEL eCW1 ([facility]) 32 21-32 CARBON DIOXIDE LEVEL eCW1 ([facility] hospital) 8.8 8.8-10.2 CALCIUM LEVEL eCW1 ([facility]) ID Date Data Source FREE KAPPA & LAMBDA LT CHAIN S 02/19/2019 12:00:00 AM EST eC W1 ([facility]) Name Value Range Interpretation Code Description Data Miladys rce(s) Supporting Document(s) 14.22 0.26-1.65 KAPPA/LAMBDA RATIO SERUM eCW1 ([facility]) 32.7 3.3-19.4 FREE KAPPA LIGHT CHAINS S DIANNA eCW1 ([facility]) 2.3 5.7-26.3 FREE LAMBDA LIGHT CHAINS SERUM eCW1 ([facility]) ID Date Data Source C REACTIVE PROTEIN QUANTITATIV (At [facility]) 02/19/2019 12:00 :00 AM EST eCW1 ([facility]) Name Value Range Interpretation Code Description Data Miladys rce(s) Supporting Document(s) < 0.30 0.00-0.30 C REACTIVE PROTEIN QUANTI TATIV eCW1 ([facility]) ID Date Data Source BETA 2 MICROGLOBULIN 02/19/2019 12:00:00 AM EST eCW1 ([facility]) Name Value Range Interpretation Code Description Data Miladys rce(s) Supporting Document(s) 3.2 0.6-2.4 BETA 2 MICROGLOBULIN eCW1 ([facility]) Procedure Social History Code Duration Value Status Description Data Source(s ) Smoking 12/20/2019 12:00:00 AM EDT Former Smoker completed Former Smoker eCW1 ([facility]) Smoking 12/20/2019 12:00:00 AM EDT Former Smoker completed Former Smoker eCW1 ([facility]) Smoking 12/20/2019 12:00:00 AM EDT Former Smoker completed Former Smoker eCW1 ([facility]) Smoking 12/20/2019 12:00:00 AM EDT Former Smoker completed Former Smoker eCW1 ([facility]) Smoking 09/19/2019 12:00:00 AM EDT Former Smoker completed Former Smoker eCW1 ([facility]) Smoking 05/07/2019 12:00:00 AM EST Patient is a former smoker completed Patient is a former smoker MEDENT ([facility], ) Alcohol intake 04/12/2019 12:00:00 AM EST Current non-d korina of alcohol (finding) completed Current non-drinker of alcohol (finding) [facility] Cigarette pack-years 04/12/2019 12:00:00 AM EST UNK completed [facility] Cigarettes smoked current (pack per day) - Reported 04/12/19 20 12:00:00 AM EST UNK completed [facility] Smoking 04/12/2019 12:00:00 AM EST Former smoker completed Former smoker [facility] Alcohol intake 03/10/2019 12:00:00 AM EST Current non-d korina of alcohol (finding) completed Current non-drinker of alcohol (finding) [facility] Cigarette pack-years 03/10/2019 12:00:00 AM EST UNK [facility] Cigarettes smoked current (pack per day) - Reported 03/10/20 12:00:00 AM EST UNK completed [facility] Smoking 03/10/2019 12:00:00 AM EST Former smoker completed Former smoker [facility] Vital Signs ID Date Data Source UNK Name Value Range Interpretation Code Description Data Source(s) Diastolic blood pressure 76 mm[Hg] 76 mm[Hg] eCW1 ([facility]) Systolic blood pressure 130 mm[Hg] 130 mm[Hg] e CW1 ([facility]) Body temperature 96.9 [degF] 96.9 [degF] eCW1 ( [facility]) Respiratory rate 18 /min 18 /min eCW1 ([facility]) Heart rate 82 /min 82 /min eCW1 ([facility]) Body mass index (BMI) [Ratio] 31.43 kg/m2 31.43 kg/m2 W1 ([facility]) Body height 64.5 [in_i] 64.5 [in_i] eCW1 ([facility]) Body weight 186 [lb_av] 186 [lb_av] eCW1 ([facility]) Body surface area Derived from formula 1.86 m2 1.86 m2 [facility] ([facility]) Body weight 83.462 kg 83.462 kg [facility] ([facility]) Fowler body weight 110 [lb_av] 110 [lb_av] MEDEN T ([facility]) Body mass index (BMI) [Ratio] 33.1 kg/m2 33.1 k g/m2 MEDENT ([facility]) Body weight 184.00 [lb_av] 184.00 [lb_av] MEDEN T ([facility]) Body height 62.50 [in_i] 62.50 [in_i] [facility] ([facility]) 5'2.50" Diastolic blood pressure 68 mm[Hg] 68 mm[Hg] [facility] ([facility]) Systolic blood pressure 122 mm[Hg] 122 mm[Hg] M EDENT ([facility]) Diastolic blood pressure 60 mm[Hg] 60 mm[Hg] eCW1 ([facility]) Systolic blood pressure 112 mm[Hg] 112 mm[Hg] e CW1 ([facility]) Body temperature 97.4 [degF] 97.4 [degF] eCW1 ( [facility]) Respiratory rate 18 /min 18 /min eCW1 ([facility]) Heart rate 77 /min 77 /min eCW1 ([facility]) Body mass index (BMI) [Ratio] 31.09 kg/m2 31.09 kg/m2 eCW1 ([facility]) Body height 64.5 [in_us] 64.5 [in_us] eCW1 [facility] Body weight Measured 184 [lb_av] 184 [lb_av] eC W1 ([facility]) Diastolic blood pressure 70 mm[Hg] 70 mm[Hg] eCW1 ([facility]) Systolic blood pressure 120 mm[Hg] 120 mm[Hg] e CW1 ([facility]) Body temperature 97.3 [degF] 97.3 [degF] eCW1 ( [facility]) Respiratory rate 18 /min 18 /min eCW1 ([facility]) Heart rate 74 /min 74 /min eCW1 ([facility]) Body mass index (BMI) [Ratio] 30.59 kg/m2 30.59 kg/m2 eCW1 ([facility]) Body height 64.5 [in_us] 64.5 [in_us] eCW1 ([facility]) Body weight Measured 181 [lb_av] 181 [lb_av] eC W1 ([facility]) Body surface area Derived from formula 1.87 m2 1.87 m2 [facility] ([facility]) Body weight 84.823 kg 84.823 kg [facility] ([facility]) [place] body weight 110 [lb_av] 110 [lb_av] MEDEN T ([facility]) Body mass index (BMI) [Ratio] 33.7 kg/m2 33.7 k g/m2 [facility] ([facility]) Body weight 187.00 [lb_av] 187.00 [lb_av] MEDEN T ([facility]) Body height 62.50 [in_i] 62.50 [in_i] [facility] ([facility]) 5'2.50" Oxygen saturation in Arterial blood by Pulse oximetry 98 % 98 % [facility] ([facility]) Room Air Heart rate 77 /min 77 /min [facility] ([facility]) Diastolic blood pressure 68 mm[Hg] 68 mm[Hg] [facility] ([facility]) Systolic blood pressure 118 mm[Hg] 118 mm[Hg] M EDENT ([facility]) Body weight 84.370 kg 84.370 kg [facility] ([facility]) Body mass index (BMI) [Ratio] 33.5 kg/m2 33.5 k g/m2 [facility] ([facility]) Body weight 186.00 [lb_av] 186.00 [lb_av] MEDEN T ([facility]) Body height 62.50 [in_i] 62.50 [in_i] [facility] ([facility], ) 5'2.50" Diastolic blood pressure 77 mm[Hg] 77 mm[Hg] [facility] ([facility]) Systolic blood pressure 148 mm[Hg] 148 mm[Hg] [facility] ([facility]) Body weight 84.029 kg 84.029 kg [facility] ([facility]) Body mass index (BMI) [Ratio] 33.3 kg/m2 33.3 k g/m2 MEDENT ([facility]) Body weight 185.25 [lb_av] 185.25 [lb_av] MEDEN T ([facility]) Body height 62.50 [in_i] 62.50 [in_i] [facility] ([facility]) 5'2.50" Diastolic blood pressure 72 mm[Hg] 72 mm[Hg] [facility] ([facility]) Systolic blood pressure 112 mm[Hg] 112 mm[Hg] [facility] ([facility]) Diastolic blood pressure 76 mm[Hg] 76 mm[Hg] eCW1 ([facility]) Systolic blood pressure 120 mm[Hg] 120 mm[Hg] e CW1 ([facility]) Body temperature 97.2 [degF] 97.2 [degF] W1 ( [facility]) Respiratory rate 17 /min 17 /min eCW1 ([facility]) Heart rate 70 /min 70 /min eCW1 ([facility]) Body mass index (BMI) [Ratio] 31.77 kg/m2 31.77 kg/m2 eCW1 ([facility]) Body height 64.5 [in_us] 64.5 [in_us] eCW1 ([facility]) Body weight Measured 188 [lb_av] 188 [lb_av] eC W1 ([facility]) Diastolic blood pressure 80 mm[Hg] 80 mm[Hg] eCW1 ([facility]) Systolic blood pressure 132 mm[Hg] 132 mm[Hg] e CW1 ([facility]) Body temperature 97.5 [degF] 97.5 [degF] eCW1 ( [facility]) Respiratory rate 18 /min 18 /min eCW1 ([facility]) Heart rate 89 /min 89 /min eCW1 ([facility]) Body mass index (BMI) [Ratio] 31.87 kg/m2 31.87 kg/m2 eCW1 ([facility]) Body height 64.5 [in_us] 64.5 [in_us] eCW1 ([facility]) Body weight Measured 188.6 [lb_av] 188.6 [lb_av ] eCW1 ([facility]) Systolic blood pressure 134 mm[Hg] 134 mm[Hg] A THENA ([facility]) Body height 65 [in_i] 65 [in_i] KIMANI ([facility]) Diastolic blood pressure 74 mm[Hg] 74 mm[Hg] KIMANI ([facility]) Diastolic blood pressure 70 mm[Hg] 70 mm[Hg] eCW1 ([facility]) Systolic blood pressure 122 mm[Hg] 122 mm[Hg] e CW1 ([facility]) Body temperature 97.9 [degF] 97.9 [degF] eCW1 ( [facility]) Respiratory rate 18 /min 18 /min eCW1 ([facility]) Heart rate 81 /min 81 /min eCW1 ([facility]) Body mass index (BMI) [Ratio] 31.26 kg/m2 31.26 kg/m2 eCW1 ([facility]) Body height 64.5 [in_us] 64.5 [in_us] eCW1 ([facility]) Body weight Measured 185 [lb_av] 185 [lb_av] eC W1 ([facility]) Systolic blood pressure 145 mm[Hg] 145 mm[Hg] A THENA ([facility]) Body height 65 [in_i] 65 [in_i] KIMANI ([facility]) Diastolic blood pressure 73 mm[Hg] 73 mm[Hg] KIMANI ([facility]) Systolic blood pressure 145 mm[Hg] 145 mm[Hg] A THENA ([facility]) Body height 65 [in_i] 65 [in_i] KIMANI ([facility]) Diastolic blood pressure 73 mm[Hg] 73 mm[Hg] KIMANI ([facility]) Diastolic blood pressure 72 mm[Hg] 72 mm[Hg] eCW1 ([facility]) Systolic blood pressure 128 mm[Hg] 128 mm[Hg] e CW1 ([facility]) Body temperature 97.4 [degF] 97.4 [degF] eCW1 ( [facility]) Respiratory rate 18 /min 18 /min eCW1 ([facility]) Heart rate 69 /min 69 /min eCW1 ([facility]) Body mass index (BMI) [Ratio] 31.97 kg/m2 31.97 kg/m2 [facility] ([facility]) Body height 64.5 [in_us] 64.5 [in_us] eCW1 ([facility]) Body weight Measured 189.2 [lb_av] 189.2 [lb_av ] eCW1 ([facility]) ID Date Data Source [id number] 03/20/2020 04:26:05 PM [facility] Name Value Range Interpretation Code Description Data Source(s) WEIGHT RECORDED 188.01 pounds 188.01 pounds [facility] Height [address] [facility] WEIGHT RECORDED 188.01 pounds 188.01 pounds [facility] Height [address] [facility] ID Date Data Source [id number] 04/24/2019 05:53:30 PM [facility] Name Value Range Interpretation Code Description Data Source(s) WEIGHT RECORDED 187.[address] [facility] Body height Measured 62.99 in 62.99 in [facility] ID Date Data Source [id number] 03/10/2019 01:04:55 PM [facility] Name Value Range Interpretation Code Description Data Source(s) WEIGHT RECORDED [address] [facility] Body height Measured 62.99 in 62.99 in [facility] Patient Treatment Plan of Care Planned Activity Planned Date Details Description Data Source (s) tizanidine 2 MG Oral Tablet 12/20/2019 12:00:00 AM EDT eCW1 ([facility]) Trazodone Hydrochloride 50 MG Oral Tablet 12/20/2019 12:00:00 AM ED T eCW1 ([facility]) tizanidine 2 MG Oral Tablet 12/20/2019 12:00:00 AM EDT eCW1 ([facility]) Trazodone Hydrochloride 50 MG Oral Tablet 12/20/2019 12:00:00 AM ED T eCW1 ([facility]) tizanidine 2 MG Oral Tablet 12/20/2019 12:00:00 AM EDT eCW1 ([facility]) Trazodone Hydrochloride 50 MG Oral Tablet 12/20/2019 12:00:00 AM ED T eCW1 ([facility]) tizanidine 2 MG Oral Tablet 12/20/2019 12:00:00 AM EDT eCW1 ([facility]) Trazodone Hydrochloride 50 MG Oral Tablet 12/20/2019 12:00:00 AM ED T eCW1 ([facility]) atorvastatin 80 MG Oral Tablet 09/20/2019 12:00:00 AM EDT eCW1 ([facility]) atorvastatin 80 MG Oral Tablet 09/20/2019 12:00:00 AM EDT eCW1 ([facility]) atorvastatin 80 MG Oral Tablet 09/20/2019 12:00:00 AM EDT eCW1 ([facility]) atorvastatin 80 MG Oral Tablet 09/20/2019 12:00:00 AM EDT eCW1 ([facility]) MetFORMIN HCl ER 750 MG 09/20/2019 12:00:00 AM EDT eCW1 ([facility]) atorvastatin 80 MG Oral Tablet 09/20/2019 12:00:00 AM EDT eCW1 ([facility]) Misc. Devices - 07/17/2019 12:00:00 AM EDT eCW1 ([facility]) Famotidine 40 MG Oral Tablet 02/19/2019 12:00:00 AM EST eCW1 ([facility]) Famotidine 40 MG Oral Tablet 02/19/2019 12:00:00 AM EST eCW1 ([facility]) Lactulose 667 MG/ML Oral Solution [Enulose] 02/11/2019 12:00:00 AM EST eCW1 ([facility]) Cimetidine 800 MG Oral Tablet 02/05/2019 12:00:00 AM EST eCW1 ([facility]) POLYETHYLENE GLYCOL 3350 142 MG/ML Oral Solution [Carey lax] 02/05/2019 12:00:00 AM EST eCW1 ([facility]) pantoprazole 40 MG Delayed Release Oral Tablet KIMANI ([facility]) Lactulose 667 MG/ML Oral Solution KIMANI ([facility]) Cimetidine 800 MG Oral Tablet KIMANI ([facility]) Allopurinol 100 MG Oral Tablet KIMANI ([facility]) pantoprazole 40 MG Delayed Release Oral Tablet KIMANI ([facility]) Lactulose 667 MG/ML Oral Solution KIMANI ([facility]) Esomeprazole 20 MG Delayed Release Oral Capsule KIMANI ([facility]) Allopurinol 100 MG Oral Tablet KIMANI ([facility])
[2020-03-24 19:06] LABS: RSV AMPLIFICATION NEGATIVE (NEGATIVE)
[2020-03-24 19:52] LABS: INR 1.02; PROTHROMBIN TIME 13.6 SECONDS (12.5-14.3)
[2020-03-24 19:53] LABS: PARTIAL THROMBOPLASTIN TIME 35.4 SECONDS (24.2-38.5)
[2020-03-24 22:11] LABS: BLOOD UREA NITROGEN 7 MG/DL (7-18); CALCIUM LEVEL 8.1 MG/DL (8.8-10.2); CARBON DIOXIDE LEVEL 30 MEQ/L (21-32); CHLORIDE LEVEL 107 MEQ/L (98-107); CREATININE FOR GFR 0.61 MG/DL (0.55-1.30); GLOMERULAR FILTRATION RATE > 60.0 (>45); GLUCOSE, FASTING 140 MG/DL (70-100); POTASSIUM SERUM 3.2 MEQ/L (3.5-5.1); SODIUM LEVEL 143 MEQ/L (136-145)
[2020-03-24 22:25] VITALS: BP 176/99
[2020-03-24] MEDS: METOPROLOL TART 25 MG TABLET PO SCH (22:27)
[2020-03-24] MEDS: PANTOPRAZOLE 40MG TAB (PROTONIX) PO SCH (22:27)
[2020-03-24] MEDS: ACETAMINOPHEN TAB 650MG DOSE (2X325MG) PO PRN (22:29)
[2020-03-24] MEDS: traMADol 50 MG TAB PO PRN (22:30)
[2020-03-25] MEDS: ACETAMINOPHEN TAB 650MG DOSE (2X325MG) PO PRN (05:03)
[2020-03-25 05:57] LABS: HEMOGLOBIN 9.4 g/dl (12.0-15.5); MEAN CORPUSCULAR HEMOGLOBIN 33.5 pg (27.0-33.0); MEAN CORPUSCULAR HGB CONC 29.4 g/dl (32.0-36.5); MEAN CORPUSCULAR VOLUME 113.9 fl (80.0-96.0); RED BLOOD COUNT 2.81 10^6/uL (4.00-5.40); WHITE BLOOD COUNT 3.2 10^3/uL (4.0-10.0)
[2020-03-25 06:00] VITALS: BP 175/95
[2020-03-25 06:03] LABS: PLATELET COUNT, AUTOMATED 89 10^3/uL (150-450)
[2020-03-25 06:22] LABS: ALBUMIN 2.9 GM/DL (3.2-5.2); ALT/SGPT 19 U/L (12-78); BILIRUBIN,TOTAL 1.1 MG/DL (0.2-1.0); BLOOD UREA NITROGEN 7 MG/DL (7-18); CARBON DIOXIDE LEVEL 27 MEQ/L (21-32); CHLORIDE LEVEL 108 MEQ/L (98-107); CREATININE FOR GFR 0.52 MG/DL (0.55-1.30); GLOMERULAR FILTRATION RATE > 60.0 (>45); GLUCOSE, FASTING 100 MG/DL (70-100); MAGNESIUM LEVEL 1.8 MG/DL (1.8-2.4); POTASSIUM SERUM 3.4 MEQ/L (3.5-5.1); SODIUM LEVEL 142 MEQ/L (136-145); TOTAL PROTEIN 5.8 GM/DL (6.4-8.2)
[2020-03-25] MEDS: METOPROLOL TART 25 MG TABLET PO SCH ×2 (08:56→20:58)
[2020-03-25] MEDS: ATORVASTATIN 20 MG TAB PO SCH (08:56)
[2020-03-25] MEDS: PANTOPRAZOLE 40MG TAB (PROTONIX) PO SCH ×2 (08:57→20:57)
[2020-03-25] MEDS: POTASSIUM CHLORIDE 10 MEQ SR TABLET PO SCH ×2 (08:57→20:54)
[2020-03-25] MEDS: ENOXAPARIN 40MG/0.4ML SYRINGE (J1650 PER 10MG) SC SCH (08:57)
[2020-03-25] MEDS ORDERED: MAGNESIUM OXIDE 400 MG TAB (MAG-OX) PO SCH (09:00)
[2020-03-25] MEDS: **hydrALAZINE** 10 MG TAB PO SCH ×3 (10:25→20:58)
--- NOTE | 2020-03-25 12:36 | REP ---
INDICATION: hypertension, uncontrolled; EVAL FOR RENAL DOPPLER. COMPARISON: None. TECHNIQUE: Real-time sonographic evaluation of the kidneys is performed. Duplex Doppler evaluation of renal arteries performed bilaterally. FINDINGS: Renal cortical echogenicity pattern is normal bilaterally and contours are smooth. There is no hydronephrosis bilaterally. There is a cyst in the upper medial left kidney 2.0 x 1.5 x 1.6 cm. No definite renal stone is seen. The right kidney measures 12.2 x 5.6 x 4.5 cm. Left renal dimensions are 12.6 x 5.4 x 5.1 cm. The urinary bladder is unremarkable. Ureteral jets are seen in the urinary bladder with Doppler color evaluation. The peak systolic velocity of the abdominal aorta at the level of the renal arteries is 84 centimeters/second. The peak systolic velocity of the main right renal artery is 131 centimeters/second, renal to aortic ratio 1.55. Resistive indices right kidney range between 0.67 and 0.74. Acceleration times range between 0.42 and 0.58. Peak systolic velocity of the main left renal artery is 113 centimeter/second, renal to aortic ratio 1.34. Resistive indices left kidney range between 0.74 and 0.77. Acceleration times range between 0.0380.050. IMPRESSION: No compelling duplex Doppler sonographic evidence of hemodynamically significant stenosis of the renal arteries bilaterally. <Electronically signed by Sae Alfredo > 03/25/20 2125
[2020-03-25 13:06] VITALS: BP 147/81
[2020-03-25 14:00] VITALS: BP 168/80
[2020-03-25 17:24] VITALS: BP 172/92
--- NOTE | 2020-03-25 17:32 | IPNPDOC ---
Date Seen The patient was seen on 03/25/20. Progress Note SUBJECTIVE: Numerous bowel movements, was restarted on magnesium oxide recently so this could have caused it. F/u C. diff PCR. BP high this afternoon, started on hydralazine TID. Headache improved. Denies chest pain, shortness of breath, n/v. OBJECTIVE: PHYSICAL EXAMINATION: VS: Please see below CONSTITUTIONAL: No acute distress, resting comfortably in bed, AAO x 3 EYES: PERRLA, EOM intact HENT, MOUTH: Normocephalic, atraumatic, moist mucous membranes NECK: SUPPLE, no JVD, no lymphadenopathy, no carotid bruit CV: Regular rate and rhythm, S1S2 normal, no murmurs/rubs/gallops RESPIRATORY: Clear to auscultation bilaterally, no rales/rhonchi/wheezes GI: obese abd, BS positive in 4 quadrants, soft, nontender, nondistended, no rebound or guarding, no organomegaly : Deferred MUSCULOSKELETAL: Normal ROM. No cyanosis, clubbing, swelling, joint deformity, nonpitting extremity edema INTEGUMENTARY: Intact, no rashes, no lesions, no erythema NEUROLOGIC: Cranial Nerves II-XII are intact, no focal deficits PSYCHIATRIC: Mood and affect are normal LABORATORY DATA: Please see below IMAGING: Echocardiogram: F/u pending results Renal US: No compelling duplex Doppler sonographic evidence of hemodynamically significant stenosis of the renal arteries bilaterally CT head: neg CXR: CM, stable mid vascular congestion, interstitial prom Echo 09/2019: 1. Normal left ventricle internal dimensions and wall thickness. Normal regional LV wall motion and wall thickening. Normal LV systolic function. LVEF 70% by visual estimate. Grade 1 LV diastolic dysfunction (impaired relaxation filling pattern). 2. No pericardial effusion. 3. Moderate aortic valve sclerosis of a 3-cuspid aortic valve. Mild aortic regurgitation. No aortic stenosis. 4. Moderate mitral annular calcification. Very mild mitral regurgitation. No mitral stenosis. 5. Otherwise normal appearing echocardiogram Doppler findings. ASSESSMENT: 64 y/o F with PMH of multiple myeloma, RA, COPD/asthma , f ibromyalgia, HTN, PTSD, migraine headaches, anxiety/depression admitted for hypertensive urgency, headache under observation status. PLAN: Hypertensive urgency -BP increased this afternoon 190's systolic, prior 140's systolic -no signs of end organ damage;however, headache improved to 3/10 from admission -Trop neg -Echo ordered- f/u results. -Started hydralazine TID, C/w metoprolol and losartan, home pain medications -Monitor on tele Diarrhea possibly 2/2 to magnesium supplementation -F/u c. diff PCR -has not received bowel medications -stopping mag ox scheduled -Monitor for s/s of dehydration, encourage intake Headache likely 2/2 to hypertensive urgency, uncontrolled BP- improving -C/w treatment above -Hx of migraine headaches but this does not seem like migraines Unsteady gait, acute on chronic -worsened with headache -OT: cleared for home -PT: to reassess on 03/26/20, patient refused today Hypokalemia -Increased KCl to 20 mEq BID -Hx of hypokalemia, previously on supplement but stopped on last admission to [facility] -F/u daily Hypomagnesemia -Stopped supplement today due to diarrhea -F/u magnesium in AM. Multiple myeloma (MM) s/p chemo, stem cell transplant -F/u with [place] heme/onc as o/p Chronic pain 2/2 to MM, fibromyalgia -C/w home pain regimen PTSD/anxiety/depression -C/w home medications COPD/asthma -Stable NAM -C/w home CPAP HLD -C/w home statin GERD -PPI DVT px -Enoxaparin DISPOSITION: patient switched to inpatient due to persistent uncontrolled BP. Plan is discharge home when medically improved. VS, I&O, 24H, [place] Vital Signs/I&O Vital Signs Date Time Temp Pulse Resp B/P (MAP) Pulse Ox O2 Delivery O2 Flow Rate FiO2 03/25/20 16:30 190/102 03/25/20 14:00 98.8 64 18 98 Room Air I&O- Last 24 Hours up to 6 AM 03/25/20 05:59 Intake Total 400 ml Output Total 0 ml Balance 400 ml Laboratory Data 24H LABS Laboratory Tests 2 03/24/20 18:18: Coronavirus (COVID-19)(PCR) NEGATIVE, Influenza Type A (RT-PCR) NEGATIVE, Influenza Type B (RT-PCR) NEGATIVE, Respiratory Syncytial Virus (PCR) NEGATIVE 03/24/20 19:24: Prothrombin Time 13.6, Prothromb Time International Ratio 1.02, Activated Partial Thromboplast Time 35.4 03/24/20 21:35: Anion Gap 6L, Glomerular Filtration Rate > 60.0, Calcium Level 8.1L, Magnesium Level 2.0 03/25/20 05:50: Anion Gap 7L, Glomerular Filtration Rate > 60.0, Calcium Level 8.0L, Magnesium Level 1.8, Nucleated Red Blood Cells % (auto) 0.6H, Total Bilirubin 1.1H, Aspartate Amino Transf (AST/SGOT) 11, Alanine Aminotransferase (ALT/SGPT) 19, Alkaline Phosphatase 87, Total Protein 5.8L, Albumin 2.9L, Albumin/Globulin Ratio 1.0L CBC/BMP Laboratory Tests 03/24/20 21:35 03/25/20 05:50 Current Medications Current Medications Medications (Trade) Dose Ordered Sig/Lucila Route PRN Reason Start Time Stop Time Status Last Admin Dose Admin Acetaminophen (Tylenol Tab) 650 mg Q4H PRN PO PAIN OR FEVER 03/24/20 17:45 03/25/20 05:03 Allopurinol (Zyloprim) 100 mg DAILY PRN PO GOUT SYMPTOMS 03/24/20 17:45 Atorvastatin Calcium (Lipitor) 80 mg DAILY PO 03/25/20 09:00 03/25/20 08:56 Diphenhydramine HCl (Benadryl) 25 mg STAT STAT IV 03/24/20 13:04 03/24/20 13:07 DC 03/24/20 13:29 Docusate Sodium (Colace) 100 mg QHS PRN PO CONSTIPATION 03/24/20 17:45 Enoxaparin Sodium (Lovenox) 40 mg DAILY SC 03/25/20 09:00 03/25/20 08:57 Home Med (Med Rec Complete!) ASDIRECTED XX 03/24/20 18:15 03/24/20 18:18 DC Hydralazine HCl (Apresoline) 10 mg TID PO 03/25/20 09:00 03/25/20 16:30 Magnesium Oxide (Mag-Ox) 400 mg BID PO 03/25/20 09:00 03/25/20 08:56 Metoprolol Tartrate (Lopressor) 25 mg BID PO 03/24/20 21:00 03/25/20 08:56 Morphine Sulfate (Msir) 15 mg TIDP PRN PO SEVERE PAIN (PS 8-10) 03/24/20 17:45 Pantoprazole Sodium (Protonix) 40 mg BID PO 03/24/20 21:00 03/25/20 08:57 Potassium Chloride (Micro-K Extencaps) 20 meq BID PO 03/25/20 09:00 03/25/20 08:57 Promethazine HCl (Phenergan) 25 mg Q12HP PRN PO NAUSEA OR VOMITING 03/24/20 17:45 Tramadol HCl (Ultram) 50 mg Q6HP PRN PO PAIN 03/24/20 17:45 03/24/20 22:30 Allergies Coded Allergies: Penicillins (Verified Allergy, Severe, THROAT SWELLING/RASH, 11/27/19) Quinolones (Verified Allergy, Intermediate, hives, 10/02/19) carisoprodol (Verified Allergy, Intermediate, hives, 10/02/19) ciprofloxacin (Verified Allergy, Intermediate, SCRATCHY THROAT, 11/27/19) doxycycline (Verified Allergy, Intermediate, HIVES, 11/27/19) gabapentin (Verified Allergy, Intermediate, hives, 10/02/19) spironolactone (Verified Allergy, Intermediate, hives, 10/02/19) amitriptyline (Verified Adverse Reaction, Intermediate, "PASS OUT", 11/27/19) ibuprofen (Verified Adverse Reaction, Intermediate, renal issues, 11/27/19) metformin (Verified Adverse Reaction, Intermediate, DIARRHEA, 11/25/19) Lara Rutledge MD Mar 25, 2020 17:31
[2020-03-25] MEDS: traMADol 50 MG TAB PO PRN (20:54)
[2020-03-25 20:56] VITALS: BP 161/91
[2020-03-26 06:00] VITALS: BP 166/79
[2020-03-26 06:30] LABS: HEMATOCRIT 28.2 % (36.0-47.0); HEMOGLOBIN 8.9 g/dl (12.0-15.5); MEAN CORPUSCULAR HEMOGLOBIN 33.2 pg (27.0-33.0); MEAN CORPUSCULAR HGB CONC 31.6 g/dl (32.0-36.5); MEAN CORPUSCULAR VOLUME 105.2 fl (80.0-96.0); RED BLOOD COUNT 2.68 10^6/uL (4.00-5.40); WHITE BLOOD COUNT 2.8 10^3/uL (4.0-10.0)
[2020-03-26 06:32] LABS: PLATELET COUNT, AUTOMATED 82 10^3/uL (150-450)
[2020-03-26 06:49] LABS: ALBUMIN 2.8 GM/DL (3.2-5.2); ALT/SGPT 17 U/L (12-78); BILIRUBIN,TOTAL 1.3 MG/DL (0.2-1.0); BLOOD UREA NITROGEN 8 MG/DL (7-18); CALCIUM LEVEL 8.3 MG/DL (8.8-10.2); CARBON DIOXIDE LEVEL 31 MEQ/L (21-32); CHLORIDE LEVEL 108 MEQ/L (98-107); CREATININE FOR GFR 0.49 MG/DL (0.55-1.30); GLOMERULAR FILTRATION RATE > 60.0 (>45); GLUCOSE, FASTING 91 MG/DL (70-100); POTASSIUM SERUM 3.2 MEQ/L (3.5-5.1); SODIUM LEVEL 145 MEQ/L (136-145); TOTAL PROTEIN 5.3 GM/DL (6.4-8.2)
[2020-03-26] MEDS: ATORVASTATIN 20 MG TAB PO SCH (08:28)
[2020-03-26] MEDS: PANTOPRAZOLE 40MG TAB (PROTONIX) PO SCH ×2 (08:28→21:59)
[2020-03-26] MEDS: **hydrALAZINE** 10 MG TAB PO SCH ×3 (08:29→21:59)
[2020-03-26] MEDS: METOPROLOL TART 25 MG TABLET PO SCH ×2 (08:29→22:00)
[2020-03-26] MEDS: POTASSIUM CHLORIDE 10 MEQ SR TABLET PO SCH ×2 (08:30→21:58)
[2020-03-26] MEDS ORDERED: POTASSIUM CHLORIDE 10 MEQ SR TABLET PO ONE (08:30)
[2020-03-26] MEDS: ENOXAPARIN 40MG/0.4ML SYRINGE (J1650 PER 10MG) SC SCH (08:30)
[2020-03-26] MEDS ORDERED: METO1TAB87 PO (08:34)
[2020-03-26] MEDS: ACETAMINOPHEN TAB 650MG DOSE (2X325MG) PO PRN (08:34)
[2020-03-26] MEDS ORDERED: HYDR10TAB PO (08:34)
[2020-03-26] MEDS ORDERED: POTA20TA6 PO (08:35)
[2020-03-26 14:00] VITALS: BP 160/79
[2020-03-26] MEDS: traMADol 50 MG TAB PO PRN ×2 (14:14→22:00)
[2020-03-26 14:17] VITALS: BP 168/90
--- NOTE | 2020-03-26 17:27 | IPNPDOC ---
Date Seen The patient was seen on 03/26/20. Progress Note SUBJECTIVE: Total of 9 BM since early AM, Shiga-like E. coli but not 0157 isolated from GI panel. Conservative treatment indicated, including IVFs which may increase BP unfortunately. BP better controlled ;however, with hydralazine TID. Headache /10 but improved. Denies chest pain, shortness of breath, n/v. OBJECTIVE: PHYSICAL EXAMINATION: VS: Please see below CONSTITUTIONAL: No acute distress, resting comfortably in bed, AAO x 3 EYES: PERRLA, EOM intact HENT, MOUTH: Normocephalic, atraumatic, moist mucous membranes NECK: SUPPLE, no JVD, no lymphadenopathy, no carotid bruit CV: Regular rate and rhythm, S1S2 normal, no murmurs/rubs/gallops RESPIRATORY: Clear to auscultation bilaterally, no rales/rhonchi/wheezes GI: obese abd, BS positive in 4 quadrants, soft, nontender, nondistended, no rebound or guarding, no organomegaly : Deferred MUSCULOSKELETAL: Normal ROM. No cyanosis, clubbing, swelling, joint deformity, nonpitting extremity edema INTEGUMENTARY: Intact, no rashes, no lesions, no erythema NEUROLOGIC: Cranial Nerves II-XII are intact, no focal deficits PSYCHIATRIC: Mood and affect are normal LABORATORY DATA: Please see below IMAGING: Echocardiogram: F/u pending results Renal US: No compelling duplex Doppler sonographic evidence of hemodynamically significant stenosis of the renal arteries bilaterally CT head: neg CXR: CM, stable mid vascular congestion, interstitial prom Echo 09/2019: 1. Normal left ventricle internal dimensions and wall thickness. Normal regional LV wall motion and wall thickening. Normal LV systolic function. LVEF 70% by visual estimate. Grade 1 LV diastolic dysfunction (impaired relaxation filling pattern). 2. No pericardial effusion. 3. Moderate aortic valve sclerosis of a 3-cuspid aortic valve. Mild aortic regurgitation. No aortic stenosis. 4. Moderate mitral annular calcification. Very mild mitral regurgitation. No mitral stenosis. 5. Otherwise normal appearing echocardiogram Doppler findings. ASSESSMENT: 64 y/o F with PMH of multiple myeloma, RA, COPD/asthma , fibromyalgia, HTN, PTSD, migraine headaches, anxiety/depression admitted for hypertensive urgency, headache under observation status. PLAN: Diarrhea 2/2 to Shiga-like E.coli not 0157 -GI panel + -Started on conservative treatment: IVFs, monitoring CBC, lytes, Cr -Monitor for s/s of dehydration, encourage intake HTN, resolved urgency -BP improved with hydralazine TID increased -Headache still present but dull -Trop neg -Echo ordered- f/u results. -Watch for incr BP pressures with IVFs being started. -C/w hydralazine TID, metoprolol and losartan Headache likely 2/2 to uncontrolled BP, possibly developing dehydration -C/w treatment above -Hx of migraine headaches but this does not seem like migraines Unsteady gait, acute on chronic- resolved -PT: safe for d/c from a mobility standpoint Hypokalemia possibly 2/2 to diarrhea -K 3.2 -Given total of 60 mEq today -Hx of hypokalemia, previously on supplement but stopped on last admission to [facility] -F/u daily Anemia, chronic -BL Hgb 10-11.5, currently 8.9 -No s/s of bleeding -Watch closely with shiga-like toxin E. coli -F/u CBC in AM Multiple myeloma (MM) s/p chemo, stem cell transplant -F/u with [facility]/onc as o/p Chronic pain 2/2 to MM, fibromyalgia -C/w home pain regimen PTSD/anxiety/depression -C/w home medications COPD/asthma -Stable NAM -C/w home CPAP HLD -C/w home statin GERD -PPI DVT px -Enoxaparin DISPOSITION: Inpatient status. Plan is discharge home when medically improved. VS, I&O, 24H, Ignaciobone Vital Signs/I&O Vital Signs Date Time Temp Pulse Resp B/P (MAP) Pulse Ox O2 Delivery O2 Flow Rate FiO2 03/26/20 16:53 168/90 03/26/20 14:44 18 03/26/20 14:00 98.8 75 97 Room Air I&O- Last 24 Hours up to 6 AM 03/26/20 05:59 Intake Total 1200 ml Output Total 0 ml Balance 1200 ml Laboratory Data 24H LABS Laboratory Tests 2 03/26/20 05:27: Nucleated Red Blood Cells % (auto) 0.0, Immature Platelet Fraction 4.0, Anion Gap 6L, Glomerular Filtration Rate > 60.0, Calcium Level 8.3L, Total Bilirubin 1.3H, Aspartate Amino Transf (AST/SGOT) 5L, Alanine Aminotransferase (ALT/SGPT) 17, Alkaline Phosphatase 82, Total Protein 5.3L, Albumin 2.8L, Albumin/Globulin Ratio 1.1L CBC/BMP Laboratory Tests 03/26/20 05:27 Microbiology Microbiology 03/26/20 Gastrointestinal Tract Panel (PCR) - Final, Complete Shiga-Like E.coli Not O157 Current Medications Current Medications Medications (Trade) Dose Ordered Sig/Lucila Route PRN Reason Start Time Stop Time Status Last Admin Dose Admin Acetaminophen (Tylenol Tab) 650 mg Q4H PRN PO PAIN OR FEVER 03/24/20 17:45 03/26/20 08:34 Allopurinol (Zyloprim) 100 mg DAILY PRN PO GOUT SYMPTOMS 03/24/20 17:45 Atorvastatin Calcium (Lipitor) 80 mg DAILY PO 03/25/20 09:00 03/26/20 08:28 Diphenhydramine HCl (Benadryl) 25 mg STAT STAT IV 03/24/20 13:04 03/24/20 13:07 DC 03/24/20 13:29 Docusate Sodium (Colace) 100 mg QHS PRN PO CONSTIPATION 03/24/20 17:45 03/25/20 17:20 DC Enoxaparin Sodium (Lovenox) 40 mg DAILY SC 03/25/20 09:00 03/26/20 08:30 Home Med (Med Rec Complete!) ASDIRECTED XX 03/24/20 18:15 03/24/20 18:18 DC Hydralazine HCl (Apresoline) 10 mg TID PO 03/25/20 09:00 03/25/20 17:34 DC 03/25/20 16:30 Hydralazine HCl (Apresoline) 20 mg TID PO 03/25/20 21:00 03/26/20 16:53 Magnesium Oxide (Mag-Ox) 400 mg BID PO 03/25/20 09:00 03/25/20 17:20 DC 03/25/20 08:56 Metoprolol Tartrate (Lopressor) 25 mg BID PO 03/24/20 21:00 03/26/20 08:29 Morphine Sulfate (Msir) 15 mg TIDP PRN PO SEVERE PAIN (PS 8-10) 03/24/20 17:45 Pantoprazole Sodium (Protonix) 40 mg BID PO 03/24/20 21:00 03/26/20 08:28 Potassium Chloride (Micro-K Extencaps) 20 meq BID PO 03/25/20 09:00 03/26/20 08:30 Promethazine HCl (Phenergan) 25 mg Q12HP PRN PO NAUSEA OR VOMITING 03/24/20 17:45 Tramadol HCl (Ultram) 50 mg Q6HP PRN PO PAIN 03/24/20 17:45 03/26/20 14:14 Allergies Coded Allergies: Penicillins (Verified Allergy, Severe, THROAT SWELLING/RASH, 11/27/19) Quinolones (Verified Allergy, Intermediate, hives, 10/02/19) carisoprodol (Verified Allergy, Intermediate, hives, 10/02/19) ciprofloxacin (Verified Allergy, Intermediate, SCRATCHY THROAT, 11/27/19) doxycycline (Verified Allergy, Intermediate, HIVES, 11/27/19) gabapentin (Verified Allergy, Intermediate, hives, 10/02/19) spironolactone (Verified Allergy, Intermediate, hives, 10/02/19) amitriptyline (Verified Adverse Reaction, Intermediate, "PASS OUT", 11/27/19) ibuprofen (Verified Adverse Reaction, Intermediate, renal issues, 11/27/19) metformin (Verified Adverse Reaction, Intermediate, DIARRHEA, 11/25/19) Lara Rutledge MD Mar 26, 2020 17:27
[2020-03-26] MEDS ORDERED: NS 1,000 ML IV SCH (17:30)
[2020-03-26 22:00] VITALS: BP 196/89
[2020-03-26 23:00] VITALS: BP 186/92
[2020-03-26] MEDS ORDERED: **hydrALAZINE HCL** 25 MG TAB PO ONE (23:15)
[2020-03-27] VITALS: BP 181/99
[2020-03-27] MEDS ORDERED: **hydrALAZINE HCL** 25 MG TAB PO ONE (00:15)
[2020-03-27] MEDS ORDERED: KETOROLAC 30 MG/ML 1ML VIAL IV ONE (00:15)
[2020-03-27 01:30] VITALS: BP 176/95
[2020-03-27] MEDS ORDERED: MORPHINE 2 MG/ML 1ML VIAL (J2270) IV ONE (01:45)
[2020-03-27 02:33] VITALS: BP 165/87
[2020-03-27] MEDS: traMADol 50 MG TAB PO PRN (04:07)
[2020-03-27 06:01] VITALS: BP 159/95
[2020-03-27] MEDS ORDERED: POTASSIUM CHLORIDE 10 MEQ SR TABLET PO ONE (08:30)
[2020-03-27] MEDS: ENOXAPARIN 40MG/0.4ML SYRINGE (J1650 PER 10MG) SC SCH (08:39)
[2020-03-27] MEDS: ACETAMINOPHEN TAB 650MG DOSE (2X325MG) PO PRN (08:46)
[2020-03-27] MEDS: PANTOPRAZOLE 40MG TAB (PROTONIX) PO SCH (08:46)
[2020-03-27] MEDS: METOPROLOL TART 25 MG TABLET PO SCH (08:47)
[2020-03-27] MEDS: ATORVASTATIN 20 MG TAB PO SCH (08:47)
[2020-03-27] MEDS: POTASSIUM CHLORIDE 10 MEQ SR TABLET PO SCH (08:47)
[2020-03-27] MEDS: **hydrALAZINE** 10 MG TAB PO SCH ×2 (08:47→16:23)
[2020-03-27 14:00] VITALS: BP 164/94
[2020-03-27 16:23] VITALS: BP 164/94
--- NOTE | 2020-03-27 20:54 | DS.PDOC ---
Discharge Summary General Date of Admission Mar 24, 2020 at 17:42 Date of Discharge 03/27/20 Attending Physician: Lara Rutledge MD Discharge Summary HISTORY OF PRESENT ILLNESS: Patient is a 64 y/o F with PMH of multiple myeloma, RA, COPD/asthma , fibromyalgia, HTN, PTSD, migraine headaches, anxiety/depression consider from her primary care provider's office today after complaining of 8/10 headache over the past several days. He was described as pounding, encompassing her entire head, constant. It has been interrupting her sleep at night denies it being the worst of her life. No recent head injuries. She tried tramadol at home but that was the only medication and it did not work. The patient was recently admitted at [facility] for electrolyte abnormalities and several medications including a diuretic were stopped. She was continued on a metoprolol 25 mg by mouth twice a day which the patient had stopped taking after her discharge because she felt like this was causing her headache. She admits to having some lightheadedness, dizziness, increased unsteadiness on her feet from baseline along with the headache. She denies blurry vision, chest pain, shortness of breath, nausea, vomiting, fevers, chills. Her PCP described. In the ER, VS showed BP [id number]/87-109, other VS stable. Trop neg, BNP mildly elevated at 746, mag low at 1.6, K 2.9, H/H 9.4/28. CT of the head was negative, chest x-ray showed some cardiomegaly but otherwise stable changes. She was given initially 25 mg of Lopressor which is part of her home medication which did not help her blood pressure. She will receive 10 mg of IV hydralazine which brought her blood pressure down to 140s/70s. For her electrolytes she was given one run of magnesium and 800 mg by mouth. She was also given 40 mEq of potassium chloride supplement. Her headache had improved some but was still 4/10 when evaluated in the emergency room. The patient was later admitted for hypertensive urgency, headache under observation status. HOSPITAL COURSE: BP was challenging to control over the first 24 hours in hospital. She remained on losartan and BB home medications. Hydralazine was later added first at 10 mg PO TID and later increased to 20 mg PO TID which really helped her. Her headache, despite BP control, was dull. CT head was neg on admission. She has a history of migraine headaches but described this headache as different. She developed increased diarrhea on 03/26/20, GI panel identified Shiga-like E. coli. She was started on IVFs and this diarrhea resolved within 24 hours. BP remained better controlled with systolic 160's. Renal US neg, Echocardiogram was ordered and pending by 03/27/20. On 03/27/20 with her symptoms much improved, it was decided to discharge home to follow up with PCP on current BP regimen. She is advised to follow up with PCP within 1-2 weeks after discharge to review the results of the echocardiogram.She is also advised to follow up with your form setter/driver due to changes in BP meds. She is encouraged to drink at least 110 ounces of water daily to hydrate while improving from infectious diarrhea. At time of discharge she denied chest pain, n/v/d, shortness of breath. PAST MEDICAL HISTORY: 1. Multiple myeloma. February 2018 2. Rheumatoid arthritis. 3. COPD/asthma 4. fibromyalgia 5. hypertension 6. PTSD 7. Migraine headaches 8. Depression 9. Anxiety 10. HLD 11. NAM on CPAP PAST SURGICAL HISTORY: 1. Ventral hernia repair in 2016. 2. Cholecystectomy in 2002. 3. total hysterectomy. 4. Partial thyroidectomy 5. cystoscopy 6. endoscopic polypectomy of large intestine 7. 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 Appendectomy 9. Right wrist carpal tunnel release SOCIAL HISTORY: Marital status: Tobacco use: <1 PPD for 15 years, quit >30 years ago ETOH: denies Illicit drug use: denies Full Code PCP- Jaye Scales, Cardiology- Dr. Sherwood, Pulmonology- Dr. Saavedra, [employer]/oncologist in [place] FAMILY HISTORY: Mother- Alzheimer's dementia. alive Father- CAD. at 73 y/o ALLERGIES: Please see below. DISCHARGE MEDICATIONS: Please see below. PHYSICAL EXAMINATION: VS: Please see below CONSTITUTIONAL: No acute distress, resting comfortably in bed, AAO x 3 EYES: PERRLA, EOM intact HENT, MOUTH: Normocephalic, atraumatic, moist mucous membranes NECK: SUPPLE, no JVD, no lymphadenopathy, no carotid bruit CV: Regular rate and rhythm, S1S2 normal, no murmurs/rubs/gallops RESPIRATORY: Clear to auscultation bilaterally, no rales/rhonchi/wheezes GI: obese abd, BS positive in 4 quadrants, soft, nontender, nondistended, no rebound or guarding, no organomegaly : Deferred MUSCULOSKELETAL: Normal ROM. No cyanosis, clubbing, swelling, joint deformity, nonpitting extremity edema INTEGUMENTARY: Intact, no rashes, no lesions, no erythema NEUROLOGIC: Cranial Nerves II-XII are intact, no focal deficits PSYCHIATRIC: Mood and affect are normal LABORATORY DATA: Please see below IMAGING: Echocardiogram: F/u pending results Renal US: No compelling duplex Doppler sonographic evidence of hemodynamically significant stenosis of the renal arteries bilaterally CT head: neg CXR: CM, stable mid vascular congestion, interstitial prom Echo 09/2019: 1. Normal left ventricle internal dimensions and wall thickness. Normal regional LV wall motion and wall thickening. Normal LV systolic function. LVEF 70% by visual estimate. Grade 1 LV diastolic dysfunction (impaired relaxation filling pattern). 2. No pericardial effusion. 3. Moderate aortic valve sclerosis of a 3-cuspid aortic valve. Mild aortic regurgitation. No aortic stenosis. 4. Moderate mitral annular calcification. Very mild mitral regurgitation. No mitral stenosis. 5. Otherwise normal appearing echocardiogram Doppler findings. ASSESSMENT: 64 y/o F with PMH of multiple myeloma, RA, COPD/asthma , fibromyalgia, HTN, PTSD, migraine headaches, anxiety/depression admitted for hypertensive urgency, headache under observation status. PLAN: Diarrhea 2/2 to Shiga-like E.coli not 0157 -GI panel + -Started on conservative treatment: IVFs, monitored closely -Much improved, no BM since midnight -Encouraged to continue to hydrate throughout the day upon return to home -if diarrhea increases, she is to let a healthcare provider know HTN, resolved urgency -BP improved with hydralazine TID increased to 20 mg PO TID -Headache still present but dull -Trop neg -Echo ordered- suggest PCP f/u results. -C/w hydralazine TID, metoprolol and losartan at discharge Headache likely 2/2 something other than BP as it remains despite much improved BP -C/w treatment above -Hx of migraine headaches but this does not seem like migraines -F/u with PCP Unsteady gait, acute on chronic- resolved -PT: safe for d/c from a mobility standpoint Hypokalemia, chronic -K persistently low -Hx of hypokalemia, previously on supplement but stopped on last admission to [facility] -Started on KCl 20 mg PO BID , advised to f/u with PCP Anemia, chronic and likely 2/2 to MM, chemotherapy -BL Hgb 8.9/28 -No s/s of bleeding -Advised to f/u with PCP, hem/onc as scheduled Multiple myeloma (MM) s/p chemo, stem cell transplant -F/u with [facility]/onc as o/p Chronic pain 2/2 to MM, fibromyalgia -C/w home pain regimen PTSD/anxiety/depression -C/w home medications COPD/asthma -Stable NAM -C/w home CPAP HLD -C/w home statin GERD -PPI DISPOSITION: Discharge home today in improved condition, advised to f/u with PCP after weekend. Also advised to have PCP f/u on echocardiogram results. TIME SPENT ON DISCHARGE: Greater than 30 minutes. Vital Signs/I&Os Vital Signs Date Time Temp Pulse Resp B/P (MAP) Pulse Ox O2 Delivery O2 Flow Rate FiO2 03/27/20 16:23 164/94 03/27/20 14:00 97.1 65 17 98 Room Air I&O- Last 24 Hours up to 6 AM 03/27/20 06:00 Intake Total 600 ml Output Total 500 ml Balance 100 ml Microbiology Microbiology 03/26/20 Gastrointestinal Tract Panel (PCR) - Final, Complete Shiga-Like E.coli Not O157 Discharge Medications Scheduled Atorvastatin Calcium (Atorvastatin Calcium) 80 Mg Tablet, 80 MG PO DAILY, (Reported) Hydralazine HCl (Hydralazine HCl) 10 Mg Tablet, 20 MG PO TID Losartan Potassium (Losartan Potassium) 100 Mg Tablet, 100 MG PO DAILY, (Reported) Metoprolol Tartrate (Metoprolol Tartrate) 25 Mg Tablet, 25 MG PO BID Pantoprazole Sodium (Pantoprazole Sodium) 40 Mg Tablet.dr, 40 MG PO BID, (Reported) Potassium Chloride (Potassium Chloride) 20 Meq Tab.er.prt, 20 MEQ PO BID Scheduled PRN Allopurinol (Allopurinol) 100 Mg Tablet, 100 MG PO DAILY PRN for GOUT SYMPTOMS, (Reported) Docusate Sodium (Docusate Sodium) 100 Mg Capsule, 100 MG PO QHS PRN for CONSTIPATION, (Reported) Loratadine (Loratadine) 10 Mg Tablet, 10 MG PO DAILY PRN for ALLERGIES, (Reported) Morphine Sulfate (Morphine Sulfate) 15 Mg Tablet, 15 MG PO TID PRN for SEVERE PAIN (PS 8-10), (Reported) Promethazine HCl (Promethazine HCl) 25 Mg Tablet, 25 MG PO Q12H PRN for NAUSEA OR VOMITING, (Reported) Tramadol HCl (Tramadol HCl) 50 Mg Tablet, 50 MG PO Q6H PRN for PAIN, (Reported) Allergies Coded Allergies: Penicillins (Verified Allergy, Severe, THROAT SWELLING/RASH, 11/27/19) Quinolones (Verified Allergy, Intermediate, hives, 10/02/19) carisoprodol (Verified Allergy, Intermediate, hives, 10/02/19) ciprofloxacin (Verified Allergy, Intermediate, SCRATCHY THROAT, 11/27/19) doxycycline (Verified Allergy, Intermediate, HIVES, 11/27/19) gabapentin (Verified Allergy, Intermediate, hives, 10/02/19) spironolactone (Verified Allergy, Intermediate, hives, 10/02/19) amitriptyline (Verified Adverse Reaction, Intermediate, "PASS OUT", 11/27/19) ibuprofen (Verified Adverse Reaction, Intermediate, renal issues, 11/27/19) metformin (Verified Adverse Reaction, Intermediate, DIARRHEA, 11/25/19) Lara Rutledge MD Mar 27, 2020 20:54
--- NOTE | 2020-03-31 07:57 | ECHO ---
DATE OF PROCEDURE: 03/25/2020 Age: 64 Gender: Female REFERRING PHYSICIAN: Dr. Lara Rutledge PATIENT LOCATION: Room 5146 INDICATION: Hypertensive heart disease. 2D EASUREMENTS: IVS 1.3 cm LV 5.1 cm LVPW 1.0 cm LA 3.8 cm Aorta 2.8 cm RV 4.2 IVC 1.2 cm DOPPLER MEASUREMENT Peak velocity across the aortic valve 2.9 m/s Peak velocity across the LVOT 1.2 m/s Peak gradient across the aortic valve 34 mmHg Mean gradient across the aortic valve 17 mmHg Mitral E 0.9 Mitral A 1.0 with a ratio of 0.9 Maximum tricuspid valve velocity 3.1 m/s 2D COMMENTS: 1. Normal left ventricular size with mildly increased left ventricular wall thickness. Left ventricular systolic function is normal, estimated at 65% to 70%. 2. Normal left atrium. Normal right atrium and right ventricle. 3. The atrial septum appeared to be normal without evidence of defect or shunt. 4. Normal aortic root. 5. A small pericardial effusion was noted, no evidence of cardiac tamponade. 6. Mildly calcified aortic valve with mildly restricted leaflet motion. Normal mitral valve, tricuspid valve, and pulmonic valve. The proximal pulmonary artery branches were not well visualized. 7. The inferior vena cava was normal in size, central venous pressure is most likely normal. Doppler detects mild mitral regurgitation, mild tricuspid regurgitation, and trace pulmonic regurgitation. The calculated pulmonary artery systolic pressure varies between 40 to 50 mmHg. Abnormal relaxation pattern was noted across the mitral valve leaflets, as well as the mitral valve annulus consistent with features of grade 1 left ventricular diastolic dysfunction. IMPRESSION: 1. Normal global left ventricular systolic function with a hyperdynamic left ventricle. 2. There are findings of grade 1 left ventricular diastolic dysfunction manifested by abnormal relaxation. 3. Aortic valve sclerosis with mild aortic regurgitation and mild aortic stenosis. 4. Mild mitral regurgitation. 5. Mild tricuspid regurgitation with moderate pulmonary artery hypertension. 6. A small pericardial effusion was noted, no evidence of cardiac tamponade. 7. This was compared with most recent echocardiogram on 10/02/2019, and at that time it seems there was a small pericardial effusion. [facility]
== END 2020-03-27 16:35 | disposition home health service (06) | DRG 305 ==
LOC: EDBD 12:38 → M ED 12:38 → M ED INP 17:42 → M MS5PR 21:05
PROVIDERS: ADMIT Internal Medicine; ATTEND Internal Medicine
DX: I16.0 Hypertensive urgency (principal); C90.00 Multiple myeloma not having achieved remission; Z94.84 Stem cells transplant status; A04.4 Other intestinal Escherichia coli infections; M06.9 Rheumatoid arthritis, unspecified; J44.9 Chronic obstructive pulmonary disease, unspecified; J45.909 Unspecified asthma, uncomplicated; M79.7 Fibromyalgia; I10 Essential (primary) hypertension; F43.10 Post-traumatic stress disorder, unspecified; G43.909 Migraine, unspecified, not intractable, without status migrainosus; F41.9 Anxiety disorder, unspecified; F32.9 Major depressive disorder, single episode, unspecified; G47.33 Obstructive sleep apnea (adult) (pediatric); R26.81 Unsteadiness on feet; E87.6 Hypokalemia; E83.42 Hypomagnesemia; Z79.899 Other long term (current) drug therapy; Z88.0 Allergy status to penicillin; Z92.21 Personal history of antineoplastic chemotherapy; Z87.891 Personal history of nicotine dependence; Z88.1 Allergy status to other antibiotic agents; Z88.6 Allergy status to analgesic agent; Z88.8 Allergy status to other drugs, medicaments and biological substances

== ENCOUNTER → 2020-04-03 | Outpatient (REF) | payer MEDICARE, MEDICAID ==
[~2020-04-03] MED LIST changes: +ATOR1TAB19 PO; +HYDR10TAB PO; +LORA-674 PO; -MAG400TA PO; +MAGN400T35 PO; +METH-1164 PO; -METH1TAB40 PO; +METO1TAB87 PO; +METO25TA4 PO; +POTA20TA6 PO; +PROM25TA12 PO; +TORS20TA2 PO
[2020-04-03 12:28] LABS: BASO % 0.4 % (0.0-1.0); EOS % 0.8 % (0.0-3.0); HEMATOCRIT 30.6 % (36.0-47.0); HEMOGLOBIN 10.1 g/dl (12.0-15.5); LYMPH # 0.9 10^3/uL (1.5-5.0); MONO # 0.2 10^3/uL (0.0-0.8); MONO % 6.2 % (0.0-5.0); NEUTROPHILS # 1.5 10^3/uL (1.5-8.5); NEUTROPHILS % 56.2 % (36.0-66.0); RED BLOOD COUNT 2.97 10^6/uL (4.00-5.40); WHITE BLOOD COUNT 2.6 10^3/uL (4.0-10.0)
[2020-04-03 12:31] LABS: PLATELET COUNT, AUTOMATED 80 10^3/uL (150-450)
[2020-04-03 12:59] LABS: ALBUMIN 3.4 GM/DL (3.2-5.2); ALT/SGPT 20 U/L (12-78); BILIRUBIN,TOTAL 0.7 MG/DL (0.2-1.0); BLOOD UREA NITROGEN 7 MG/DL (7-18); CALCIUM LEVEL 8.7 MG/DL (8.8-10.2); CARBON DIOXIDE LEVEL 27 MEQ/L (21-32); CHLORIDE LEVEL 107 MEQ/L (98-107); GLOMERULAR FILTRATION RATE > 60.0 (>45); GLUCOSE, FASTING 129 MG/DL (70-100); LDH LACTATE DEHYDROGENASE 247 U/L (84-246); MAGNESIUM LEVEL 1.3 MG/DL (1.8-2.4); PHOSPHORUS LEVEL 4.2 MG/DL (2.5-4.9); POTASSIUM SERUM 3.4 MEQ/L (3.5-5.1); SODIUM LEVEL 144 MEQ/L (136-145)
[2020-04-04 18:07] LABS: KAPPA/LAMBDA RATIO SERUM 1.43 (0.26-1.65)
[2020-04-08 11:33] LABS: IMMUNOTYPING SERUM IGG ABNORMAL (NORMAL); IMMUNOTYPING SERUM KAPPA ABNORMAL (NORMAL)
[2020-04-08 12:28] LABS: ALBUMIN 3.61 GM/DL (3.29-5.55); ALBUMIN % 60.2 % (55.8-66.1); ALPHA-1-GLOBULIN % 4.9 % (2.9-4.9); ALPHA-1-GLOBULINS 0.29 GM/DL (0.17-0.41); ALPHA-2-GLOBULINS 0.53 GM/DL (0.42-0.99); ALPHA-2-GLOBULINS % 8.8 % (7.1-11.8); BETA-1-GLOBULINS 0.38 GM/DL (0.28-0.60); BETA-1-GLOBULINS % 6.3 % (4.7-7.2); BETA-2-GLOBULINS 0.62 GM/DL (0.19-0.55); BETA-2-GLOBULINS % 10.3 % (3.2-6.5); GAMMA GLOBULIN % 9.5 % (11.1-18.8); GAMMA GLOBULINS 0.57 GM/DL (0.65-1.58)
== END ==
LOC: M LAB REF 11:41
PROVIDERS: ATTEND Internal Medicine
DX: C90.00 Multiple myeloma not having achieved remission (principal)

== ENCOUNTER 2020-04-06 16:46 | Emergency (ER) | payer MEDICARE, MEDICAID ==
[~2020-04-06] VITALS: Ht 165.1 cm; Wt 85.5 kg
[~2020-04-06 16:46] MED LIST changes: -ATOR1TAB19 PO; -METO25TA4 PO; -TORS20TA2 PO
[2020-04-06 17:21] LABS: BASO % 0.6 % (0.0-1.0); EOS % 0.3 % (0.0-3.0); HEMATOCRIT 31.1 % (36.0-47.0); HEMOGLOBIN 10.1 g/dl (12.0-15.5); LYMPH # 1.1 10^3/uL (1.5-5.0); MEAN CORPUSCULAR HEMOGLOBIN 33.3 pg (27.0-33.0); MEAN CORPUSCULAR HGB CONC 32.5 g/dl (32.0-36.5); MEAN CORPUSCULAR VOLUME 102.6 fl (80.0-96.0); MONO # 0.3 10^3/uL (0.0-0.8); MONO % 8.3 % (0.0-5.0); NEUTROPHILS # 1.8 10^3/uL (1.5-8.5); NEUTROPHILS % 56.5 % (36.0-66.0); RED BLOOD COUNT 3.03 10^6/uL (4.00-5.40); WHITE BLOOD COUNT 3.2 10^3/uL (4.0-10.0)
[2020-04-06 17:25] LABS: PLATELET COUNT, AUTOMATED 86 10^3/uL (150-450)
[2020-04-06] MEDS ORDERED: LABETALOL 100MG/20ML VIAL IV STA (17:50)
[2020-04-06 17:59] LABS: ALBUMIN 3.6 GM/DL (3.2-5.2); BILIRUBIN,DIRECT 0.2 MG/DL (0.0-0.2); BILIRUBIN,TOTAL 1.2 MG/DL (0.2-1.0); TOTAL PROTEIN 6.4 GM/DL (6.4-8.2)
[2020-04-06] MEDS ORDERED: FUROSEMIDE 40 MG TAB PO ONE (18:00)
[2020-04-06] MEDS ORDERED: ACETAMINOPHEN TAB 650MG DOSE (2X325MG) PO ONE (18:00)
--- NOTE | 2020-04-06 18:00 | REPVR ---
PROCEDURE INFORMATION: Exam: CT Head Without Contrast Exam date and time: 04/06/2020 5:25 PM Age: 64 years old Clinical indication: Pain; Headache; Additional info: Hypertension with headache x2 days TECHNIQUE: Imaging protocol: Computed tomography of the head without contrast. Radiation optimization: All CT scans at this facility use at least one of these dose optimization techniques: automated exposure control; mA and/or kV adjustment per patient size (includes targeted exams where dose is matched to clinical indication); or iterative reconstruction. COMPARISON: CT Head without contrast 03/24/2020 1:56 PM FINDINGS: Brain: No acute intracranial hemorrhage is visualized. The white-garner differentiation is preserved demonstrating no acute territorial type infarct. There are scattered foci of white matter hypodensity, likely representing small vessel ischemic disease. The acuity of the white matter disease is indeterminate. There is no midline shift. There is mild prominence of frontal sulci, compatible with atrophy. Artifact limits evaluation of the leah. Cerebral ventricles: No ventriculomegaly. Bones/joints: The calvarium demonstrates no evidence for a depressed fracture. A few small nonspecific hypodense skull lesions are identified, without progression. Paranasal sinuses: There is opacification of a few left ethmoid air cells. Mastoid air cells: Mild effusions within left mastoid air cells. Vasculature: Intracranial atherosclerosis visualized. Soft tissues: A small hyperdense focus is again visualized within the left frontal scalp suggestive of calcification. A foreign body cannot be excluded. IMPRESSION: 1. No acute intracranial hemorrhage or acute territorial type infarct. 2. There are scattered foci of white matter hypodensity, likely representing small vessel ischemic disease. 3. Mild stable atrophy. 4. Mild effusions within left mastoid air cells. Paranasal sinus disease. Electronically signed by: Juan Alberto Call On 04/06/2020 18:00:28 PM
[2020-04-06] MEDS ORDERED: TORS20TA2 PO (18:17)
[2020-04-06 18:25] VITALS: BP 161/78
[2020-04-06 18:41] VITALS: BP 167/77
--- NOTE | 2020-04-08 14:29 | ECGEPIP ---
[facility] - ED Test Date: 2020-04-06 Pat Name: JEREMI MALLOY Department: Room: - Gender: Female Sap Bw Architect: parish : [id number] Requested By: Jessica Miguel Order Number: [id number] Reading MD: Jessica Miguel Measurements Intervals [place] Rate: 64 P: 14 [place]: 161 QRS: -3 QRSD: 84 T: 33 QT: 414 QTc: 427 Interpretive Statements SINUS RHYTHM MODERATE VOLTAGE CRITERIA FOR LVH, CONSIDER NORMAL VARIANT NONSPECIFIC ST & T-WAVE ABNORMALITY DECREASED RATE 03/24/20 Electronically Signed on 04-08-2020 14:29:17 EST by Jessica Miguel
== END 2020-04-06 18:58 | disposition home or self-care (01) ==
LOC: M ED 16:46 → EDBD 16:46 → M ED 18:58
DX: I11.0 Hypertensive heart disease with heart failure (principal); I50.9 Heart failure, unspecified; M79.7 Fibromyalgia; M19.90 Unspecified osteoarthritis, unspecified site; Z79.899 Other long term (current) drug therapy; Z88.0 Allergy status to penicillin; Z88.8 Allergy status to other drugs, medicaments and biological substances; Z88.1 Allergy status to other antibiotic agents; Z98.890 Other specified postprocedural states; Z82.49 Family history of ischemic heart disease and other diseases of the circulatory system

== ENCOUNTER → 2020-04-09 | Outpatient (REF) | payer MEDICARE, MEDICAID ==
[~2020-04-09] MED LIST changes: +ATOR1TAB19 PO; +MAG400TA PO; -MAGN400T35 PO; -METH-1164 PO; +METH1TAB40 PO; +METO25TA4 PO; +TORS20TA2 PO
[2020-04-09 14:34] LABS: BLOOD UREA NITROGEN 17 MG/DL (7-18); CARBON DIOXIDE LEVEL 31 MEQ/L (21-32); CHLORIDE LEVEL 105 MEQ/L (98-107); CREATININE FOR GFR 0.88 MG/DL (0.55-1.30); GLOMERULAR FILTRATION RATE > 60.0 (>45); GLUCOSE, FASTING 99 MG/DL (70-100); POTASSIUM SERUM 3.5 MEQ/L (3.5-5.1); SODIUM LEVEL 143 MEQ/L (136-145)
[2020-04-09 14:35] LABS: CALCIUM LEVEL 8.5 MG/DL (8.8-10.2)
== END ==
LOC: M SFHCPLAZ 11:50
PROVIDERS: ATTEND Family Medicine
DX: R19.7 Diarrhea, unspecified (principal); E87.6 Hypokalemia

== ENCOUNTER 2020-04-14 01:06 | Inpatient (IN) | payer MEDICARE, MEDICAID ==
[~2020-04-14] VITALS: Ht 162.6 cm; Wt 83.2 kg
[~2020-04-14 01:06] MED LIST changes: -ATOR1TAB19 PO; -MAG400TA PO; +MAGN400T35 PO; +METH-1164 PO; -METH1TAB40 PO; -METO25TA4 PO
--- OUTSIDE RECORDS SUMMARY | 2020-04-14 01:13 | CCD ---
Author Author [facility] Organization [facility] Address Unknown Phone Unavailable Care Team Providers Care Medicaid Billing Clerk Name Role Phone Jaye Scales Unavailable PROBLEMS Type Condition ICD9-CM Code [id number] Code Onset Dates Condition S tatus SNOMED Code Notes Problem Mixed hyperlipidemia E78.2 Active 021893764 Problem Vitamin D deficiency, unspecified E55.9 Active 96223951 Problem Other obesity E66.8 Active 205604587 Problem Gastro-esophageal reflux disease without esophagitis K21.9 Active 254344996 Problem Obstructive sleep apnea (adult) (pediatric) G47.33 Active 86807454 Problem Anxiety F41.9 Active 95173244 Problem Chronic obstructive pulmonary disease, unspecified J44.9 Active 38421676 Problem Nocturnal leg cramps G47.62 Active 094610091 Problem Night terrors F51.4 Active 01728296 Problem Allergic rhinitis, unspecifi ed allergic rhinitis trigger, unspecified rhinitis seasonality J30.9 Active 03937435 Problem Fibromyalgia M79.7 Active 801332047 Problem Essential (primary) hypertension I10 Active 71681135 Problem Rheumatoid arthritis involvi ng multiple sites with positive rheumatoid factor M05.79 Active 254480125 Problem Osteoarthritis of spine with radiculopathy, lumbar region M47.26 Active 931290593 Problem Gout, unspecified cause, unspecified chronicity, unspecified site M10.9 Active 93070602 Problem Varicose veins with pain I83.819 Active 6990133 09 Problem Thrombocytopenia D69.6 Active 668077032 Problem Moderate episode of recurrent major depressive disorder F33.1 Active 446372341 Problem Varicose veins of both lower extremities with pain I83.813 Active 63071233 Problem 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 Active 895527131 Problem Seronegative rheumatoid arthritis M06.00 Active 455977697 Problem Multiple myeloma not having achieved remission C90 .00 Active 919381556 Problem Controlled type 2 diabetes m ellitus without complication, without long- term current use of insulin E11.9 Active 10771526 4 Problem Psychophysiologic insomnia F51.04 Active 25342 2009 Problem Hypomagnesemia E83.42 Active 709823496 Problem Other chronic pain G89.29 Active 90007751 Problem Nephrolithiasis N20.0 Active 43884924 Problem Slow transit constipation K59.01 Active 164607 07 Problem Diverticulosis of colon without diverticulitis K57 .30 Active 594802486 Problem Tension headache G44.209 Active 175926252 ALLERGIES Allergen (clinical drug ingredient) Drug/Non Drug Allergy do cumented on EMR Reaction Allergy Type Onset Date Status acetaminophen / oxycodone Percocet(ND Code:[address]-95) facia l swelling Drug Allergy Active ibuprofen IBU(NDC Code:[address]-78) Kidneys Drug Allergy Active tramadol Tramadol HCl(NDC Code:[address]-59) Throat swelling Drug Allergy Active amitriptyline Amitriptyline HCl(ND Code:[address]-21) Throat swelling Drug Allergy Active ciprofloxacin Cipro(NDC Code:[address]-95) Hives Drug Allergy Active Penicillin (For Allergies Use Only) hives Drug Allerg y Active spironolactone Spironolactone(NDC Code:[address]-30) Hives Drug Allergy Active doxycycline Doxycycline(NDC Code:[address]-68) Sweating Drug Aller gy Active ENCOUNTERS from 1955 to 2020-04-07 Encounter Location Date Provider Diagnosis [address] [address] Mar, Jaye Yordy IMMUNIZATIONS Vaccine Route Administration Date [...] Education Language: Question Answer Notes Languages spoken: Cymro Adventist: Question Answer Notes Adventist 14 Buddhism Sexual Hx: Question Answer Notes Had sex [...] Notes Start Da te End Date Status Lidocaine 1.8 % 1 patch to skin remove after 12 hours Externally On ce a day Active Aveeno Calming Body Wash - as directed Externally Daily for 30 d ay(s) Aug, Unknown Colace 100 MG 1 capsule as needed Orally Once a day for 90 days Active Pomalyst 2 MG 1 capsule for 21 days then 7 days off Orally Once a day Unknown Tramadol HCl 50 MG 1 tablet as needed Orally as needed every 6 hours Unknown MetFORMIN HCl ER 750 MG 1 tablet with evening meal Orally bid fo r day(s) Sep, Unknown Protonix 40 MG 1 tablet Orally twice a day Unknown Potassium Chloride ER 20 MEQ 1 tablet with food Orally Twice a d ay Mar, Active Metoprolol Tartrate 25 MG 1 tablet with food Orally Twice a day for 30 day(s) Mar, Active Aveeno Daily Moisturizer - as directed Externally Daily for 30 d ay(s) Aug, Unknown Magnesium Oxide 400 MG 1 tablet with food Orally twice a day Unknown Losartan Potassium 100 MG 1 tablet Orally Once a day for 30 day(s) Unknown Acyclovir 400 MG 1 tablet Orally Twice a day for 10 day(s) Unknown Vitamin D3 2000 UNIT 1 capsule Orally Once a day for 90 days Unknown Allopurinol 100 MG 1 tablet Orally Once a day for 90 Unknown Famotidine 40 MG 1 tablet at bedtime Orally Once a day Active HydrALAZINE HCl 10 MG 2 tablet with food Orally Three times a da y Mar, 2020 Active Misc. Devices - as directed Shower bar; Dx R55 16 July, 0 Unknown Atorvastatin Calcium 80 MG 1 tablet Orally Once a day for 90 day (s) Sep, Active PROCEDURES No Information RESULTS No Results REASON FOR VISIT High BP MEDICAL (GENERAL) HISTORY Type Description Date Medical History HTN - Dr. Sherwood Medical History Lower Extremity edema/facial edema - Dr. Shaw/Dr. Sherwood Medical History Osteoarthritis (C-spine, LS spine) Medical History Chronic low back pain with r adiculitis (known DDD of LS spine) Dr. Marino, ortho in [place] Medical History Insomnia Medical History H/O depression in remote past Medical History GERD Medical History Allergic rhinitis Medical History Rheumatoid arthritis - follows in [facility] Medical History Gout Medical History COPD: Dr. Saavedra Medical History Hyperlipidemia Medical History Fibromyalgia Medical History Diabetes mellitus type 2 - diet controll ed Medical History NAM - uses CPAP Medical History Multiple Myeloma - [facility], [facility] Onc Surgical History hysterectomy for menorrhagia 2000 Surgical History cholecystectomy 1999 Surgical History thyroidectomy, parital 2003 Surgical History Removal of kidney stone Surgical History colonoscopy 10/[address]. Pearl 12/29/2015 Surgical History Right wrist lump removed 09/2016 Surgical History Colonoscopy - tubular adenomas removed; Dr. Rodriguez 11/2016 Surgical History EGD - esophagitis, gastrisits; Dr. Melgar 02/2019 Surgical History stem cell transplant 02/2020 Hospitalization History Near syncope 04/2011 Hospitalization History Depression/suicidal attempt admitted twice (once at [facility] and once at [facility]) 1996- Hospitalization History [facility] ER- UTI, Edema, unspecif ied- bilateral lower extremities 11/02/2015 Hospitalization History [facility] ER- UTI, Pyelonephritis, Diverticulosis of large intestine without perforation or abcess without bleeding 11/09/2015 Hospitalization History Hernia Repair--Dr. Pearl 6 Hospitalization History tachacardia, 11/2019 Hospitalization History electrolytes down Goals Section No Information Health Concerns No Information MEDICAL EQUIPMENT No Information MENTAL STATUS No Information FUNCTIONAL STATUS No Information ASSESSMENTS No Information PLAN OF TREATMENT Next Appt Details Provider Name:Jaye Scales, 2020-04-09 11:15:00 AM, [address] [place], [address], Insurance Providers Payer Name Payer Address Payer Phone Insured Name Patient Relati onship to Insured Coverage Start Date Coverage End Date [facility] [address] [facility] [id number] FAILS,JEREMI MAY self MEDICAID [employer] [address] [facility] [id number] FAILS,JEREMI MAY self
--- OUTSIDE RECORDS SUMMARY | 2020-04-14 01:13 | CCD ---
Author Author [facility] Organization [facility] Address Unknown Phone Unavailable Care Team Providers Care Fixer Supervisor Name Role Phone Jaye Scales Unavailable PROBLEMS Type Condition ICD9-CM Code [id number] Code Onset Dates Condition S tatus SNOMED Code Notes Problem Mixed hyperlipidemia E78.2 Active 053914362 Problem Vitamin D deficiency, unspecified E55.9 Active 44994167 Problem Other obesity E66.8 Active 608019834 Problem Gastro-esophageal reflux disease without esophagitis K21.9 Active 690393914 Problem Obstructive sleep apnea (adult) (pediatric) G47.33 Active 33888330 Problem Anxiety F41.9 Active 60348098 Problem Chronic obstructive pulmonary disease, unspecified J44.9 Active 65810855 Problem Nocturnal leg cramps G47.62 Active 405288546 Problem Night terrors F51.4 Active 80357694 Problem Allergic rhinitis, unspecifi ed allergic rhinitis trigger, unspecified rhinitis seasonality J30.9 Active 60501316 Problem Fibromyalgia M79.7 Active 912066400 Problem Essential (primary) hypertension I10 Active 95196190 Problem Rheumatoid arthritis involvi ng multiple sites with positive rheumatoid factor M05.79 Active 947662128 Problem Osteoarthritis of spine with radiculopathy, lumbar region M47.26 Active 574646315 Problem Gout, unspecified cause, unspecified chronicity, unspecified site M10.9 Active 74918867 Problem Varicose veins with pain I83.819 Active 5632495 09 Problem Thrombocytopenia D69.6 Active 649177912 Problem Moderate episode of recurrent major depressive disorder F33.1 Active 852991872 Problem Varicose veins of both lower extremities with pain I83.813 Active 47040824 Problem 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 Active 302490731 Problem Seronegative rheumatoid arthritis M06.00 Active 132469447 Problem Multiple myeloma not having achieved remission C90 .00 Active 750033072 Problem Controlled type 2 diabetes m ellitus without complication, without long- term current use of insulin E11.9 Active 20689210 4 Problem Psychophysiologic insomnia F51.04 Active 04562 2009 Problem Hypomagnesemia E83.42 Active 559625964 Problem Other chronic pain G89.29 Active 75627347 Problem Nephrolithiasis N20.0 Active 56622168 Problem Slow transit constipation K59.01 Active 255302 07 Problem Diverticulosis of colon without diverticulitis K57 .30 Active 722678660 Problem Tension headache G44.209 Active 827992079 ALLERGIES Allergen (clinical drug ingredient) Drug/Non Drug Allergy do cumented on EMR Reaction Allergy Type Onset Date Status acetaminophen / oxycodone Percocet(ND Code:[address]-93) facia l swelling Drug Allergy Active ibuprofen IBU(NDC Code:[address]-34) Kidneys Drug Allergy Active tramadol Tramadol HCl(NDC Code:[address]-81) Throat swelling Drug Allergy Active amitriptyline Amitriptyline HCl(ND Code:[address]-45) Throat swelling Drug Allergy Active ciprofloxacin Cipro(NDC Code:[address]-47) Hives Drug Allergy Active Penicillin (For Allergies Use Only) hives Drug Allerg y Active spironolactone Spironolactone(NDC Code:[address]-21) Hives Drug Allergy Active doxycycline Doxycycline(NDC Code:[address]-99) Sweating Drug Aller gy Active ENCOUNTERS from 1955 to 2020-03-30 Encounter Location Date Provider Diagnosis [address] [address] Mar, Jaye Yordy IMMUNIZATIONS Vaccine Route Administration [...] Education Language: Question Answer Notes Languages spoken: Senegalese Buddhist: Question Answer Notes Buddhist 14 Episcopalian Sexual Hx: Question Answer Notes Had sex [...] Information RESULTS No Results REASON FOR VISIT no further intervention needed MEDICAL (GENERAL) HISTORY Type Description Date Medical History HTN - Dr. Sherwood Medical History Lower Extremity edema/facial edema - Dr. Shaw/Dr. Sherwood Medical History Osteoarthritis (C-spine, LS spine) Medical History Chronic low back pain with r adiculitis (known DDD of LS spine) Dr. Marino, ortho in [place] Medical History Insomnia Medical History H/O depression in remote past Medical History GERD Medical History Allergic rhinitis Medical History Rheumatoid arthritis - follows in [facility] Medical History Gout Medical History COPD: Dr. Saavedra Medical History Hyperlipidemia Medical History Fibromyalgia Medical History Diabetes mellitus type 2 - diet controll ed Medical History NAM - uses CPAP Medical History Multiple Myeloma - [facility], [facility] Onc Surgical History hysterectomy for menorrhagia [...] History Depression/suicidal attempt admitted twice (once at [facility] and once at [facility]) 1996- Hospitalization History [facility] ER- UTI, Edema, unspecif ied- bilateral lower extremities 11/02/2015 Hospitalization History [facility] ER- UTI, Pyelonephritis, Diverticulosis of [...] Provider Name:Jaye Scales, 2020-04-09 11:15:00 AM, [address] [place], [address], Insurance Providers Payer Name Payer Address Payer Phone Insured Name Patient Relati onship to Insured Coverage Start Date Coverage End Date [facility] [address] [facility] [phone] FAILS,JEREMI MAY self MEDICAID [place] [employer] [address] [facility] [id number] FAILS,JEREMI MAY self
--- OUTSIDE RECORDS SUMMARY | 2020-04-14 01:13 | CCD ---
Author Author [facility] Organization [facility] Address Unknown Phone Unavailable Care Team Providers Care Greige Mender Name Role Phone Jaye Scales Unavailable PROBLEMS Type Condition ICD9-CM Code [id number] Code Onset Dates Condition S tatus SNOMED Code Notes Problem Mixed hyperlipidemia E78.2 Active 369558173 Problem Vitamin D deficiency, unspecified E55.9 Active 95415508 Problem Other obesity E66.8 Active 935178594 Problem Gastro-esophageal reflux disease without esophagitis K21.9 Active 754639622 Problem Obstructive sleep apnea (adult) (pediatric) G47.33 Active 95087707 Problem Anxiety F41.9 Active 64987824 Problem Chronic obstructive pulmonary disease, unspecified J44.9 Active 23733640 Problem Nocturnal leg cramps G47.62 Active 853520563 Problem Night terrors F51.4 Active 84116313 Problem Allergic rhinitis, unspecifi ed allergic rhinitis trigger, unspecified rhinitis seasonality J30.9 Active 69720117 Problem Fibromyalgia M79.7 Active 516703387 Problem Essential (primary) hypertension I10 Active 74188664 Problem Rheumatoid arthritis involvi ng multiple sites with positive rheumatoid factor M05.79 Active 706345536 Problem Osteoarthritis of spine with radiculopathy, lumbar region M47.26 Active 346269978 Problem Gout, unspecified cause, unspecified chronicity, unspecified site M10.9 Active 37406355 Problem Varicose veins with pain I83.819 Active 5215293 09 Problem Thrombocytopenia D69.6 Active 262337399 Problem Moderate episode of recurrent major depressive disorder F33.1 Active 806830906 Problem Varicose veins of both lower extremities with pain I83.813 Active 65263960 Problem 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 Active 337312536 Problem Seronegative rheumatoid arthritis M06.00 Active 631192980 Problem Multiple myeloma not having achieved remission C90 .00 Active 838249334 Problem Controlled type 2 diabetes m ellitus without complication, without long- term current use of insulin E11.9 Active 23953982 4 Problem Psychophysiologic insomnia F51.04 Active 94984 2009 Problem Hypomagnesemia E83.42 Active 140424290 Problem Other chronic pain G89.29 Active 82221395 Problem Nephrolithiasis N20.0 Active 51952253 Problem Slow transit constipation K59.01 Active 641708 07 Problem Diverticulosis of colon without diverticulitis K57 .30 Active 221436083 Problem Tension headache G44.209 Active 629729812 ALLERGIES Allergen (clinical drug ingredient) Drug/Non Drug Allergy do cumented on EMR Reaction Allergy Type Onset Date Status acetaminophen / oxycodone Percocet(ND Code:[address]-39) facia l swelling Drug Allergy Active ibuprofen IBU(NDC Code:[address]-58) Kidneys Drug Allergy Active tramadol Tramadol HCl(NDC Code:[address]-97) Throat swelling Drug Allergy Active amitriptyline Amitriptyline HCl(ND Code:[address]-50) Throat swelling Drug Allergy Active ciprofloxacin Cipro(NDC Code:[address]-03) Hives Drug Allergy Active Penicillin (For Allergies Use Only) hives Drug Allerg y Active spironolactone Spironolactone(NDC Code:[address]-27) Hives Drug Allergy Active doxycycline Doxycycline(NDC Code:[address]-47) Sweating Drug Aller gy Active ENCOUNTERS from 1955 to 2020-04-09 Encounter Location Date Provider Diagnosis [address] [address] Mar, Jaye Jimkenyon IMMUNIZATIONS Vaccine Route Administration Date Status Influenza [...] Education Language: Question Answer Notes Languages spoken: Zambian Taoism: Question Answer Notes Taoism 14 Baptism Sexual Hx: Question Answer Notes Had sex [...] Notes Start Da te End Date Status Torsemide 20 MG 2 tabs Orally Once a day Active Atorvastatin Calcium 80 MG 1 tablet Orally Once a day for 90 day (s) Sep, Active Allopurinol 100 MG 1 tablet Orally Once a day for 90 Active Protonix 40 MG 1 tablet Orally twice a day Active Lidocaine 1.8 % 1 patch to skin remove after 12 hours Externally On ce a day Active Acyclovir 400 MG 1 tablet Orally Twice a day for 10 day(s) Active Losartan Potassium 100 MG 1 tablet Orally Once a day Active Metoprolol Tartrate 25 MG 1 tablet with food Orally Twice a day Mar, Active Diphenhydramine-Zinc Acetate 1-0.1 % 1 application as needed Externally to face, arms Three times a day Mar, Active Potassium Chloride ER 20 MEQ 1 tablet with food Orally Twice a day for 30 Days Mar, Active Blood Pressure Cuff - arm cuff; as directed Dx I10.0 2020 Active Colace 100 MG 1 capsule as needed Orally Once a day for 90 days Active HydrALAZINE HCl 10 MG 2 tablet with food Orally Three times a da y Mar, Active PROCEDURES No Information RESULTS No Results REASON FOR VISIT bug bites MEDICAL (GENERAL) HISTORY Type Description Date Medical History HTN - Dr. Sherwood Medical History Lower Extremity edema/facial edema - Dr. Shaw/Dr. Sherwood Medical History Osteoarthritis (C-spine, LS spine) Medical History Chronic low back pain with r adiculitis (known DDD of LS spine) Dr. Marino, ortho in [place] Medical History Insomnia Medical History H/O depression in remote past Medical History GERD Medical History Allergic rhinitis Medical History Rheumatoid arthritis - follows in [facility] Medical History Gout Medical History COPD: Dr. Saavedra Medical History Hyperlipidemia Medical History Fibromyalgia Medical History Diabetes mellitus type 2 - diet controll ed Medical History NAM - uses CPAP Medical History Multiple Myeloma - [facility], [facility] Onc Surgical History hysterectomy for [...] History Depression/suicidal attempt admitted twice (once at [facility] and once at [facility]) 1996- Hospitalization History [facility] ER- UTI, Edema, unspecif ied- bilateral lower extremities 11/02/2015 Hospitalization History [facility] ER- UTI, Pyelonephritis, Diverticulosis of large intestine without perforation or abcess without bleeding 11/09/2015 Hospitalization History Hernia Repair--Dr. Pearl 6 Hospitalization History tachacardia, 11/2019 Hospitalization History HTN 03/2020 Goals Section No Information Health Concerns No Information MEDICAL EQUIPMENT No Information MENTAL STATUS No Information FUNCTIONAL STATUS No Information ASSESSMENTS No Information PLAN OF TREATMENT Medication Medication Name Sig Start Date Stop Date HydrALAZINE HCl 10 MG 2 tablet with food Orally Three times a da y Mar, Metoprolol Tartrate 25 MG 1 tablet with food Orally Twice a day Mar, Torsemide 20 MG 2 tabs Orally Once a day Potassium Chloride ER 20 MEQ 1 tablet with food Orally Twice a day for 30 Days Mar, Blood Pressure Cuff - arm cuff; as directed Dx I10.0 Mar, Losartan Potassium 100 MG 1 tablet Orally Once a day Diphenhydramine-Zinc Acetate 1-0.1 % 1 application as needed Externally to face, arms Three times a day Mar, Insurance Providers Payer Name Payer Address Payer Phone Insured Name Patient Relati onship to Insured Coverage Start Date Coverage End Date MEDICAID [employer] [address] [facility] [id number] FAILS,JEREMI MAY self [facility] [address] [facility] [phone] FAILS,JEREMI MAY self
--- OUTSIDE RECORDS SUMMARY | 2020-04-14 01:13 | CCD ---
Author Author [facility] Organization [facility] Address Unknown Phone Unavailable Care Team Providers Care Director Of Agriculture Name Role Phone Jaye Scales Unavailable PROBLEMS Type Condition ICD9-CM Code [id number] Code Onset Dates Condition S tatus SNOMED Code Notes Problem Mixed hyperlipidemia E78.2 Active 809756030 Problem Vitamin D deficiency, unspecified E55.9 Active 40104707 Problem Other obesity E66.8 Active 142270183 Problem Gastro-esophageal reflux disease without esophagitis K21.9 Active 466901964 Problem Obstructive sleep apnea (adult) (pediatric) G47.33 Active 09500293 Problem Anxiety F41.9 Active 20392148 Problem Chronic obstructive pulmonary disease, unspecified J44.9 Active 28233581 Problem Nocturnal leg cramps G47.62 Active 803562565 Problem Night terrors F51.4 Active 13261033 Problem Allergic rhinitis, unspecifi ed allergic rhinitis trigger, unspecified rhinitis seasonality J30.9 Active 45263645 Problem Fibromyalgia M79.7 Active 789618544 Problem Essential (primary) hypertension I10 Active 96800796 Problem Rheumatoid arthritis involvi ng multiple sites with positive rheumatoid factor M05.79 Active 212584067 Problem Osteoarthritis of spine with radiculopathy, lumbar region M47.26 Active 357639105 Problem Gout, unspecified cause, unspecified chronicity, unspecified site M10.9 Active 12672229 Problem Varicose veins with pain I83.819 Active 5579587 09 Problem Thrombocytopenia D69.6 Active 373309447 Problem Moderate episode of recurrent major depressive disorder F33.1 Active 639628111 Problem Varicose veins of both lower extremities with pain I83.813 Active 33231100 Problem 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 Active 685165595 Problem Seronegative rheumatoid arthritis M06.00 Active 039270223 Problem Multiple myeloma not having achieved remission C90 .00 Active 156942773 Problem Controlled type 2 diabetes m ellitus without complication, without long- term current use of insulin E11.9 Active 66595260 4 Problem Psychophysiologic insomnia F51.04 Active 61559 2009 Problem Hypomagnesemia E83.42 Active 079691654 Problem Other chronic pain G89.29 Active 36583999 Problem Nephrolithiasis N20.0 Active 23889176 Problem Slow transit constipation K59.01 Active 900090 07 Problem Diverticulosis of colon without diverticulitis K57 .30 Active 928798753 Problem Tension headache G44.209 Active 424012968 ALLERGIES Allergen (clinical drug ingredient) Drug/Non Drug Allergy do cumented on EMR Reaction Allergy Type Onset Date Status acetaminophen / oxycodone Percocet(ND Code:[address]-41) facia l swelling Drug Allergy Active ibuprofen IBU(NDC Code:[address]-00) Kidneys Drug Allergy Active tramadol Tramadol HCl(NDC Code:[address]-01) Throat swelling Drug Allergy Active amitriptyline Amitriptyline HCl(ND Code:[address]-08) Throat swelling Drug Allergy Active ciprofloxacin Cipro(NDC Code:[address]-40) Hives Drug Allergy Active Penicillin (For Allergies Use Only) hives Drug Allerg y Active spironolactone Spironolactone(NDC Code:[address]-48) Hives Drug Allergy Active doxycycline Doxycycline(NDC Code:[address]-73) Sweating Drug Aller gy Active ENCOUNTERS from 1955 to 2020-03-30 Encounter Location Date Provider Diagnosis [address] [address] Mar, Jaye Yordy IMMUNIZATIONS Vaccine Route Administration [...] Education Language: Question Answer Notes Languages spoken: Citizen Of [place] Anabaptism: Question Answer Notes Anabaptism 14 Amish Sexual Hx: Question Answer Notes Had sex [...] Information RESULTS No Results REASON FOR VISIT [facility] D/C 03/27; Hypertensive Urgency/ Hypokalemia MEDICAL (GENERAL) HISTORY Type Description Date Medical History HTN - Dr. Sherwood Medical History Lower Extremity edema/facial edema - Dr. Shaw/Dr. Sherwood Medical History Osteoarthritis (C-spine, LS spine) Medical History Chronic low back pain with r adiculitis (known DDD of LS spine) Dr. Marino, ortho in [place] Medical History Insomnia Medical History H/O depression in remote past Medical History GERD Medical History Allergic rhinitis Medical History Rheumatoid arthritis - follows in [facility] Medical History Gout Medical History COPD: Dr. Saavedra Medical History Hyperlipidemia Medical History Fibromyalgia Medical History Diabetes mellitus type 2 - diet controll ed Medical History NAM - uses CPAP Medical History Multiple Myeloma - [facility], [facility] Onc Surgical History hysterectomy for [...] History Depression/suicidal attempt admitted twice (once at [facility] and once at [facility]) 1996- Hospitalization History [facility] ER- UTI, Edema, unspecif ied- bilateral lower extremities 11/02/2015 Hospitalization History [facility] ER- UTI, Pyelonephritis, Diverticulosis of large intestine without perforation or abcess without bleeding 11/09/2015 Hospitalization History Hernia Repair--Dr. Pearl 6 Hospitalization History tachacardia, 11/2019 Hospitalization History electrolytes down Goals Section No Information Health Concerns No Information MEDICAL EQUIPMENT No Information MENTAL STATUS No Information FUNCTIONAL STATUS No Information ASSESSMENTS Encounter Date Diagnosis Assessment Notes Treatment Notes Treatm ent Clinical Notes Mar, Other Discussion with patient about recent discharge from the hospital. Patient states she is doing well and her blood pressure is under control now. She has Nursing Services in there to take her blood and monitor her vitals. Medication reconciliation completed at this time. Upcoming appt with Dr. Scales reviewed with her for 04/09 at 11:15 am. PLAN OF TREATMENT Next Appt Details Provider Name:Jaye Marvel Scales, 2020-04-09 11:15:00 AM, [address] [place], [address], Insurance Providers Payer Name Payer Address Payer Phone Insured Name Patient Relati onship to Insured Coverage Start Date Coverage End Date MEDICAID [id number] [address] [facility] [id number] FAILS,JEREMI MAY self [facility] [address] [facility] [id number] FAILS,JEREMI MAY self
--- OUTSIDE RECORDS SUMMARY | 2020-04-14 01:13 | CCD ---
Author Author [facility] Organization [facility] Address Unknown Phone Unavailable Care Team Providers Care Line Erector Name Role Phone Jaye Scales Unavailable PROBLEMS Type Condition ICD9-CM Code [id number] Code Onset Dates Condition S tatus SNOMED Code Notes Problem Mixed hyperlipidemia E78.2 Active 892771650 Problem Vitamin D deficiency, unspecified E55.9 Active 30129870 Problem Other obesity E66.8 Active 038326678 Problem Gastro-esophageal reflux disease without esophagitis K21.9 Active 694850636 Problem Obstructive sleep apnea (adult) (pediatric) G47.33 Active 70536739 Problem Anxiety F41.9 Active 72262682 Problem Chronic obstructive pulmonary disease, unspecified J44.9 Active 77573728 Problem Nocturnal leg cramps G47.62 Active 789767717 Problem Night terrors F51.4 Active 03154288 Problem Allergic rhinitis, unspecifi ed allergic rhinitis trigger, unspecified rhinitis seasonality J30.9 Active 67371715 Problem Fibromyalgia M79.7 Active 911631586 Problem Essential (primary) hypertension I10 Active 81946378 Problem Rheumatoid arthritis involvi ng multiple sites with positive rheumatoid factor M05.79 Active 310012472 Problem Osteoarthritis of spine with radiculopathy, lumbar region M47.26 Active 375650758 Problem Gout, unspecified cause, unspecified chronicity, unspecified site M10.9 Active 44377656 Problem Varicose veins with pain I83.819 Active 2402566 09 Problem Thrombocytopenia D69.6 Active 005308811 Problem Moderate episode of recurrent major depressive disorder F33.1 Active 432156789 Problem Varicose veins of both lower extremities with pain I83.813 Active 80287473 Problem 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 Active 360830530 Problem Seronegative rheumatoid arthritis M06.00 Active 546318101 Problem Multiple myeloma not having achieved remission C90 .00 Active 247134313 Problem Controlled type 2 diabetes m ellitus without complication, without long- term current use of insulin E11.9 Active 73875715 4 Problem Psychophysiologic insomnia F51.04 Active 96838 2009 Problem Hypomagnesemia E83.42 Active 740469229 Problem Other chronic pain G89.29 Active 57213594 Problem Nephrolithiasis N20.0 Active 85804580 Problem Slow transit constipation K59.01 Active 102842 07 Problem Diverticulosis of colon without diverticulitis K57 .30 Active 027615308 Problem Tension headache G44.209 Active 001334195 ALLERGIES Allergen (clinical drug ingredient) Drug/Non Drug Allergy do cumented on EMR Reaction Allergy Type Onset Date Status acetaminophen / oxycodone Percocet(ND Code:[address]-60) facia l swelling Drug Allergy Active ibuprofen IBU(NDC Code:[address]-42) Kidneys Drug Allergy Active tramadol Tramadol HCl(NDC Code:[address]-70) Throat swelling Drug Allergy Active amitriptyline Amitriptyline HCl(ND Code:[address]-20) Throat swelling Drug Allergy Active ciprofloxacin Cipro(NDC Code:[address]-25) Hives Drug Allergy Active Penicillin (For Allergies Use Only) hives Drug Allerg y Active spironolactone Spironolactone(NDC Code:[address]-00) Hives Drug Allergy Active doxycycline Doxycycline(NDC Code:[address]-63) Sweating Drug Aller gy Active ENCOUNTERS from 1955 to 2020-04-05 Encounter Location Date Provider Diagnosis [address] [address] Mar, Jaye Yordy IMMUNIZATIONS Vaccine Route Administration [...] Education Language: Question Answer Notes Languages spoken: Swazi Christian: Question Answer Notes Christian 14 Protestant Sexual Hx: Question Answer Notes Had sex [...] directed Shower bar; Dx R55 July, 0 Unknown Atorvastatin Calcium 80 MG 1 tablet Orally Once a day for 90 day (s) Sep, Active PROCEDURES No Information RESULTS No Results REASON FOR VISIT elvated BP MEDICAL (GENERAL) HISTORY Type Description Date Medical History HTN - Dr. Sherwood Medical History Lower Extremity edema/facial edema - Dr. Shaw/Dr. Sherwood Medical History Osteoarthritis (C-spine, LS spine) Medical History Chronic low back pain with r adiculitis (known DDD of LS spine) Dr. Marino, ortho in [place] Medical History Insomnia Medical History H/O depression in remote past Medical History GERD Medical History Allergic rhinitis Medical History Rheumatoid arthritis - follows in [facility] Medical History Gout Medical History COPD: Dr. Saavedra Medical History Hyperlipidemia Medical History Fibromyalgia Medical History Diabetes mellitus type 2 - diet controll ed Medical History NAM - uses CPAP Medical History Multiple Myeloma - [facility], [facility] Onc Surgical History hysterectomy for menorrhagia [...] History Depression/suicidal attempt admitted twice (once at [facility] and once at [facility]) 1996- Hospitalization History [facility] ER- UTI, Edema, unspecif ied- bilateral lower extremities 11/02/2015 Hospitalization History [facility] ER- UTI, Pyelonephritis, Diverticulosis of [...] Provider Name:Jaye Scales, 2020-04-09 11:15:00 AM, [address] [place], [address], Insurance Providers Payer Name Payer Address Payer Phone Insured Name Patient Relati onship to Insured Coverage Start Date Coverage End Date [facility] [address] [facility] [id number] FAILS,JEREMI MAY self MEDICAID [id number] [address] [facility] [address] FAILS,JEREMI MAY self
--- OUTSIDE RECORDS SUMMARY | 2020-04-14 01:15 | CCD ---
Author Author [facility] Organization [facility] Address Unknown Phone Unavailable Support Name Relationship Address Phone Giuliano MALLOY Next Of Kin [address] [place] [address] WILLY HAMMOND Next Of Kin Unknown REYNALDO CALERO Next Of Kin [address] [place] [address] [address] [place] [address] GUILLAUME HUSSEIN Next Of Kin [address] [place] [address] LORENA LLANES Next Of Kin Unknown Unavailable JUDY HAMMOND Next Of Kin [address] [place] [address] [address] [place] [address] JUDY CALERO Next Of Kin [address] [place] [address] PENELOPE HUSSEIN Next Of Kin NA Unknown DISABLED Next Of Kin Unknown Unavailable [place] [address] [id number] DISABLE Next Of Kin Unknown Unavailable JUSTYN HAMMOND [place] [address] UE Next Of Kin Unknown Unavailable DISABILITY Next Of Kin X X, X X MARY MALLOY Next Of Kin [address] [place] [address] [address] [place] [address] AND[place] [address] [id number] reynaldo calero [facility] [address]ING [address] [place] [address] Unavailable Neva Llanes ECON Unknown Guillaume Hussein ECON [address] [place] [address] Unavailable Mary Malloy ECON [address] [facility] [address] [place], [place] [id number] [phone] Care Team Providers Care Live Truck Operator Name Role Phone [facility] [place] Unavailable Unavailable Harrison, Natty Jose Daniel Unavailable Unavailable Harrison, Natty Jose Daniel Unavailable Unavailable Harrison, Natty Jose Daniel Unavailable Unavailable Nathaniel, Natty Jose Daniel Unavailable Unavailable Harrison, Natty Jose Daniel Unavailable Unavailable Nathaniel, Natty Jose Daniel Unavailable Unavailable Harrison, Natty Jose Daniel Unavailable Unavailable Nathaniel, Natty Jose Daniel Unavailable Unavailable MELIZA LANDRUM MD Unavailable Unavailable MELIZA LANDRUM MD Unavailable Unavailable MELIZA LANDRUM MD Unavailable Unavailable MELIZA LANDRUM MD Unavailable Unavailable SNEHA, P AUGIE Unavailable Unavailable SNEHA, P AUGIE MD Unavailable [...] Unavailable SNEHA, P AUGIE MD Unavailable Unavailable Danika Falanga, A Kavya [employer] Unavailable Unavailable Danika Falanga, A Kavya [employer] Unavailable Unavailable [place] Falanga, A Kavya SECR[employer]ARY [employer] Unavailable Unavailable [place] Falanga, A Kavya SECRETARY [employer] Unavailable Unavailable [place] Falanga, A Kavya SECRETARY [employer] Unavailable Unavailable [place] Falanga, A Kavya SECRETARY [employer] Unavailable Unavailable Danika Falanga, A Kavya SECRETARY [employer] COMM[employer]IONERS Unavailable Unavailable [place] Falanga, A Kavya SECR[employer]ARY [employer] Unavailable Unavailable [place] Falanga, A Kavya SECR[employer]ARY [employer] Unavailable Unavailable Danika Falanga, A Kavya SECR[employer]ARY [employer] Unavailable Unavailable [place] Falanga, A Kavya SECR[employer]ARY [employer] Unavailable Unavailable Danika Falanga, A Kavya SECR[employer]ARY [employer] Unavailable Unavailable [place] Falanga, A Kavya SECR[employer]ARY [employer] Unavailable Unavailable [place] Falanga, A Kavya SECR[employer]ARY [employer]ERS Unavailable Unavailable Danika Falanga, A Kavya SECR[employer]ARY [employer] Unavailable Unavailable Danika Falanga, A Kavya SECR[employer] Unavailable Unavailable [place] Falanga, A Kavya SECRETARY [employer] Unavailable Unavailable [place] Falanga, A Kavya SECR[employer]ARY [employer] Unavailable Unavailable [place] Falanga, A Kavya SECR[employer]ARY [employer] Unavailable Unavailable Danika Falanga, A Kavya SECR[employer]ARY [employer] Unavailable Unavailable Danika Falanga, A Kavya SECR[employer]ARY [employer] Unavailable Unavailable Danika Falanga, A Kavya SECR[employer]ARY [employer] Unavailable Unavailable [place] Falanga, A Kavya SECR[employer]ARY [employer] Unavailable Unavailable Danika Falanga, A Kavya SECR[employer]ARY [employer] Unavailable Unavailable Danika Falanga, A Kavya SECR[employer]ARY [employer] Unavailable Unavailable [place] Falanga, A Kavya SECR[employer]ARY [employer] Unavailable Unavailable [place] Falanga, A Kavya SECR[employer]ARY [employer] Unavailable Unavailable Danika Falanga, A Kavya SE[employer]ARY [employer] Unavailable Unavailable Danika Falanga, A Kavya [employer] Unavailable Unavailable Danika Falanga, A Kavya [employer] Unavailable Unavailable Nilson HARP MD Unavailable Unavailable Nilson HARP MD Unavailable Unavailable Nilson HARP MD Unavailable Unavailable Nilson HRAP MD Unavailable Unavailable Nilson HARP MD Unavailable Unavailable Nilson HARP MD Unavailable Unavailable Nilson HARP MD Unavailable Unavailable Nilson HARP MD Unavailable Unavailable Nilson HARP MD Unavailable Unavailable Nilson HARP MD Unavailable Unavailable LIESVELD, Nilson KONG MD [...] Unavailable LIESVELD, Nilson KONG MD Unavailable Unavailable REINDL, PAUL WHELAN Unavailable [...] REINDL, PAUL WHELAN Unavailable Unavailable REINDL, PAUL MD Unavailable Unavailable PAUL HOWARD MD Unavailable Unavailable PAUL HOWARD MD Unavailable Unavailable PAUL HOWARD MD Unavailable Unavailable Musselshell, V NASREEN PA-C Unavailable Unavailable Galindo, V NASREEN PA-C Unavailable Unavailable Musselshell, V NASREEN PA-C Unavailable Unavailable [place]usselshell, V NASREEN PA-C Unavailable Unavailable Galindo, V NASREEN PA-C Unavailable Unavailable Musselshell, V NASREEN PA-C Unavailable Unavailable Galindo, V NASREEN PA-C Unavailable Unavailable Jumalon, M Ludmila [employer]ARY [employer] Unavailable Unavailable Jumalon, M Ludmila [employer]CR[employer]ARY [employer] Unavailable Unavailable Jumalon, M Ludmila [employer]CR[employer]ARY [employer] Unavailable Unavailable Jumalon, M Ludmila SECR[employer]ARY [employer]ERS Unavailable Unavailable Jumalon, M Ludmila SECRETARY [employer] Unavailable Unavailable Jumalon, M Ludmila SECR[employer]ARY [employer] Unavailable Unavailable Jumalon, M Ludmila SECRETARY [employer]IONERS Unavailable Unavailable Jumalon, M Ludmila SECRETARY [employer]IONERS Unavailable Unavailable Jumalon, M Ludmila SECRETARY [employer] COMMISSIONERS Unavailable Unavailable Jumalon, M Ludmila SECRETARY [employer] COMMISSIONERS Unavailable Unavailable Jumalon, M Ludmila SECRETARY [employer] COMMISSIONERS Unavailable Unavailable Jumalon, M Ludmila SECRETARY [employer] COMM[employer]IONERS Unavailable Unavailable Jumalon, M Ludmila SECRETARY [employer]ERS Unavailable Unavailable Jumalon, M Ludmila SECRETARY [employer] COMM[employer]IONERS Unavailable Unavailable Jumalon, M Ludmila SECRETARY [employer] COMMISSIONERS Unavailable Unavailable Jumalon, M Ludmila SECRETARY [employer] COMMISSIONERS Unavailable Unavailable Jumalon, M Ludmila SECRETARY BO[employer] COMMISSIONERS Unavailable Unavailable Jumalon, M Ludmila SECRETARY BO[employer] COMMISSIONERS Unavailable Unavailable Jumalon, M Ludmila SECRETARY [employer] COMMISSIONERS Unavailable Unavailable Jumalon, M Ludmila SECRETARY BO[employer] COMMISSIONERS Unavailable Unavailable Jumalon, M Ludmila SECRETARY BO[employer] OF COMMISSIONERS Unavailable Unavailable Jumalon, M Ludmila SECRETARY BO[employer] OF COMMISSIONERS Unavailable Unavailable Jumalon, M Ludmila SECRETARY BO[employer] OF COMMISSIONERS Unavailable Unavailable Jumalon, M Ludmila SECRETARY BO[employer] OF COMMISSIONERS Unavailable Unavailable Jumalon, M Ludmila SECRETARY BO[employer] OF COMMISSIONERS Unavailable Unavailable Jumalon, M Ludmila SECRETARY [employer] COMMISSIONERS Unavailable Unavailable Jumalon, M Ludmila SECRETARY [employer] COMM[employer]IONERS Unavailable Unavailable Jumalon, M Ludmila SECRETARY [employer] Unavailable Unavailable Diana Sherwood MD Unavailable Unavailable [...] Unavailable Unavailable Diana Sherwood MD Unavailable Unavailable Slemilika, Vojtech MD Unavailable Unavailable Diana Sherwood MD Unavailable Unavailable NON, PHYSICIAN STAFF Unavailable Unavailable Jumalon, M Ludmila [employer]CR[employer]ARY [employer] Unavailable Unavailable Jumalon, M Ludmila SECRETARY [employer] COMM[employer]IONERS Unavailable Unavailable Jumalon, M Ludmila SECRETARY BO[employer] OF COMMISSIONERS Unavailable Unavailable Jumalon, M Ludmila SECRETARY [employer] COMMISSIONERS Unavailable Unavailable Jumalon, M Ludmila SECRETARY BO[employer] COMMISSIONERS Unavailable Unavailable Jumalon, M Ludmila SECRETARY BO[employer] COMMISSIONERS Unavailable Unavailable Jumalon, M Ludmila SECRETARY BO[employer] COMMISSIONERS Unavailable Unavailable Jumalon, M Ludmila SECRETARY BO[employer] COMMISSIONERS Unavailable Unavailable Jumalon, M Ludmila SECRETARY BO[employer] OF COMMISSIONERS Unavailable Unavailable Jumalon, M Ludmila SECRETARY BO[employer] OF COMMISSIONERS Unavailable Unavailable Jumalon, M Ludmila SECRETARY BO[employer] OF COMMISSIONERS Unavailable Unavailable Jumalon, M Ludmila SECRETARY BO[employer] OF COMMISSIONERS Unavailable Unavailable Jumalon, M Ludmila SECRETARY BO[employer] OF COMMISSIONERS Unavailable Unavailable Jumalon, M Ludmila SECRETARY BO[employer] OF COMMISSIONERS Unavailable Unavailable Jumalon, M Ludmila SECRETARY BO[employer] COMMISSIONERS Unavailable Unavailable Jumalon, M Ludmila SECRETARY BO[employer] COMMISSIONERS Unavailable Unavailable Jumalon, M Ludmila SECRETARY BO[employer] OF COMMISSIONERS Unavailable Unavailable Jumalon, M Ludmila SECRETARY BO[employer] OF COMMISSIONERS Unavailable Unavailable Jumalon, M Ludmila SECRETARY BO[employer] OF COMMISSIONERS Unavailable Unavailable Jumalon, M Ludmila SECRETARY BO[employer] COMMISSIONERS Unavailable Unavailable Jumalon, M Ludmila SECRETARY BO[employer] COMMISSIONERS Unavailable Unavailable Jumalon, M Ludmila SECRETARY BO[employer] OF COMMISSIONERS Unavailable Unavailable Jumalon, M Ludmila SECRETARY BO[employer] OF COMMISSIONERS Unavailable Unavailable Jumalon, M Ludmila SECRETARY BO[employer] OF COMMISSIONERS Unavailable Unavailable Jumalon, M Ludmila SECRETARY [employer] COMMISSIONERS Unavailable Unavailable Jumalon, M Ludmila SECRETARY [employer] COMM[employer]IONERS Unavailable Unavailable Jumalon, M Ludmila SECRETARY [employer]ERS Unavailable Unavailable Daphne MONTERO MD Unavailable Unavailable Daphne MONTERO MD Unavailable Unavailable Daphne MONTERO MD Unavailable Unavailable Daphne MONTERO MD Unavailable Unavailable Daphne MONTERO MD Unavailable Unavailable Daphne MONTERO MD Unavailable Unavailable Daphne MONTERO MD Unavailable Unavailable Daphne MONTERO MD Unavailable Unavailable Daphne MONTERO MD Unavailable Unavailable Daphne MONTERO MD Unavailable Unavailable Daphne MONTERO MD Unavailable Unavailable Daphne MONTERO MD Unavailable Unavailable Daphne MONTERO MD Unavailable Unavailable Daphne MONTERO MD Unavailable Unavailable Daphne MONTERO MD Unavailable Unavailable Daphne MONTERO MD Unavailable Unavailable KYLAH, L NATASHA MD Unavailable Unavailable KYLAH, L NATASHA MD Unavailable Unavailable KYLAH, L NATASHA MD Unavailable Unavailable KYLAH, L NATASHA MD Unavailable Unavailable KYLAH, L NATASHA MD Unavailable Unavailable KYLAH, L NATASHA MD Unavailable Unavailable KYLAH, L NATASHA MD Unavailable Unavailable Re-disclosure Warning The records [...] is protected by Article 27-F of the [facility] Public Health law. If you continue you may have access to information: Regarding HIV / AIDS; Provided by facilities licensed or operated by the [facility] Office of Mental Health; or Provided by the [facility] Office for People With Developmental Disabilities. If such information is present, then the following [facility] mandated warning applies: This information has [...] law may result in a fine or mcc sentence or both. A general authorization for the release of medical or other information is NOT sufficient authorization for further disc losure. Allergies and Adverse Reactions Type Description Substance Reaction Status Data Source(s ) BRANDNAME KEPPRA KEPPRA [facility] BRANDNAME TYLENOL TYLENOL [facility] Drug allergy GABAPENTIN GABAPENTIN [facility] Drug allergy METFORMIN METFORMIN [facility] Drug allergy OXYCODONE OXYCODONE [facility] Drug allergy CARISOPRODOL CARISOPRODOL [facility] Drug allergy DOXYCYCLINE DOXYCYCLINE [facility] Drug allergy FLUOCINOLONE FLUOCINOLONE [facility] Drug allergy PREDNISONE PREDNISONE [facility] Drug allergy AMITRIPTYLINE AMITRIPTYLINE [facility] Drug allergy SPIRONOLACTONE SPIRONOLACTONE [facility] Drug allergy CODEINE CODEINE [facility] CLASS QUINOLONES QUINOLONES [facility] CLASS NSAID NSAID [facility] Propensity to adverse reactions PREDNISONE Prednisone Acti ve [facility] Propensity to adverse reactions METFORMIN Metformin Acti ve [facility] Propensity to adverse reactions LEVETIRACETAM Levetiracetam Active [facility] Propensity to adverse reactions CODEINE Codeine Acti ve [facility] Propensity to adverse reactions ACETAMINOPHEN Acetaminophen Active [facility] Drug allergy Spironolactone Spironolactone Hives Active eCW1 ([facility]) Drug allergy Cipro Ciprofloxacin Hives Active eCW1 ([facility]) Drug allergy Amitriptyline HCl Amitriptyline Throat swelling Active eCW1 ([facility]) Drug allergy Tramadol HCl Tramadol Throat swelling Active eCW1 ([facility]) Drug allergy IBU Ibuprofen Kidneys Active eCW1 ([facility]) Drug allergy Percocet acetaminophen / oxycodone facial swelling Ac tive eCW1 ([facility]) DRUG INGREDI TRAMADOL Tramadol Swelling [facility] Propensity to adverse reactions GABAPENTIN gabapentin Acti ve [facility] Propensity to adverse reactions CARISOPRODOL Carisoprodol Active [facility] DRUG INGREDI GABAPENTIN GABAPENTIN [facility] DRUG INGREDI CARISOPRODOL CARISOPRODOL [facility] Soma Soma Carisoprodol 250 MG Oral Tablet [Soma] Rash Active eCW1 ([facility]) Family History Family Member Name Family Member Gender Family Member Status Date o f Status Description Data Source(s) Unknown Unknown Problem MEDENT ([facility]) Encounters Encounter Providers Location Date Indications Data Source(s ) Unknown [facility] [address] 04/09/2020 12:00:00 AM EST [facility]CW1 [facility] Outpatient Attender: NASREEN LAWSON.GEOFF-SJP.[email or web address] 12:00:00 AM EST - 04/08/2020 03:27:49 PM EST [facility] Unknown [address] [facility] [address] 04/06/2020 12:00:00 AM EST eCW1 ([facility]) [place] [address] [facility] [address] 04/03/2020 12:00:00 AM EST eCW1 ([facility]) [place] [address] [facility] [address] 03/30/2020 12:00:00 AM EST [facility]CW1 ([facility]) [place] [address] [facility] [address] 03/30/2020 12:00:00 AM EST eCW1 ([facility]) [place]patient [address] [facility] [address] 03/24/2020 12:00:00 AM EST [facility] Outpatient Attender: [facility] 03/08/2020 09:5 0:00 PM [facility] Inpatient Attender: Kavya hawkins FNPAttender: NATASHA MONTERO MDConsultant: STAFF NON 03/06/2020 10:10:00 AM EST - 03/12/2020 12:50:00 PM [facility] Patient discharged. Outpatient Attender: Kavya BUENROSTRO 03/04/2020 12:24:00 PM EST - 03/06/2020 10:10:00 AM [facility] Unknown [address] [facility] [address] 03/02/2020 12:00:00 AM EST [facility]CW1 [facility] Unknown [address] [facility] [address] 12/23/2019 12:00:00 AM EDT eCW1 ([facility]) Unknown [address] [facility] [address] 12/23/2019 12:00:00 AM EDT [facility]CW1 [facility] Outpatient [address] [place] [address] [place] [address] 12/20/2019 12:00:00 AM EDT [facility]CW1 [facility]) Outpatient Attender: Diana Sherwood MD SJP.GEOFF-SJP.GEOFF 09/11 12:00:00 AM EDT - 10/07/2019 04:43:57 PM EDT [facility] Unknown [address] [place] [address], [place] [address] 10/01/2019 12:00:00 AM EDT eCW1 [facility]) Outpatient Referrer: DILAN HARP MD 09/21/2019 12:00:[address] [place] [address] 09/10/2019 12:00:00 AM EDT eCW1 [facility]) Outpatient Referrer: Ludmila COLBYP 07/25/2019 07:00:0 0 PM EDT [facility] [address] [place] [address] 07/17/2019 12:00:00 AM EDT eCW1 ([facility]) [address] [place] [address] 07/16/2019 12:00:00 AM EDT eCW1 ([facility]) Outpatient Attender: AUGIE HOOVER MD [id number] 07/10/2019 12:00:00 [facility] Outpatient Referrer: Ludmila BUENROSTRO 06/28/2019 04:47:0 0 AM EDT [facility] [address] [place] [address] 06/24/2019 12:00:00 AM EDT eCW1 [facility] [place] [id number] [place] [address], [place] [address] 06/18/2019 12:00:00 AM EDT eCW1 ([facility]) [facility] [address] [place] [address], [place] [address] 06/12/2019 12:00:00 AM EDT eCW1 ([facility]) [address] [address] 06/10/2019 12:00:00 AM EDT eCW1 ([facility]) [address] [address] 06/10/2019 12:00:00 AM EDT eCW1 ([facility]) [address] [address] 06/10/2019 12:00:00 AM EDT eCW1 ([facility]) [address] [address] 06/05/2019 12:00:00 AM EDT eCW1 ([facility]) [address] [address] 05/27/2019 12:00:00 AM EDT eCW1 ([facility]) [address] [address] 05/24/2019 12:00:00 AM EDT eCW1 ([facility]) [address] [address] 05/20/2019 12:00:00 AM EDT eCW1 ([facility]) [address] [address] 05/17/2019 12:00:00 AM EST eCW1 ([facility]) Outpatient Referrer: Ludmila Tomlinson [employer] 05/07/2019 02:21:0 0 PM EST [facility] [address] [address] 04/24/2019 12:00:00 AM EST [facility]CW1 [facility]) [address] [address] 04/15/2019 12:00:00 AM EST eCW1 ([facility]) Outpatient Referrer: Ludmila Tomlinson [facility] 04/12/2019 09:28:0 0 AM EST [facility] Outpatient Attender: AUGIE HOOVER MD [id number] 020 12:00:00 AM EST - 04/12/2019 12:20:12 PM EST Rheumatoid arthritis without rheumatoid factor, unspecified site [facility] Rheumatoid arthritis without rheumatoid factor, unspecified site [address] [address] 04/10/2019 12:00:00 AM EST eCW1 ([facility]) [address] [address] 04/08/2019 12:00:00 AM EST eCW1 ([facility]) [address] [address] 04/03/2019 12:00:00 AM EST eCW1 ([facility]) Outpatient Attender: PAUL Murphy/Luca/Eduardo/Rein dl 03/26/2019 07:30:00 AM EST MEDENT ([facility]) Outpatient Attender: Jose Daniel Murphy/Vasyl 03/25/2019 09:15:00 AM EST MEDENT ([facility]) Outpatient Attender: MELIZA LANDRUM MDAdmi tter: MELIZA LANDRUM MDReferrer: MELIZA LANDRUM MD 03/20/2019 12:00:00 AM EST - 03/20/2019 11:59:00 PM EST Multiple myeloma not having achieved remission [facility] Multiple myeloma not having achieved rem ission Outpatient Referrer: Ludmila Tomlinson [facility] 03/14/2019 07:31:0 0 PM EST [facility] [address] [address] 03/08/2019 12:00:00 AM EST [facility]CW1 [facility]) Outpatient Attender: AUGIE HOOVER MD [id number] 019 12:00:00 AM EST - 03/01/2019 03:46:30 PM EST [address] [place] [address] 03/01/2019 12:00:00 AM EST [facility]CW1 [facility]) Outpatient Attender: AUGIE HOOVER MD 03/01/2019 12:00:[address] [place] [address] 02/28/2019 12:00:00 AM EST eCW1 ([facility]) Outpatient Attender: Jose Daniel Murphy/Luca/Eduardo/Jennifer 02/26/2019 09:00:00 AM EST MEDENT ([facility] [address] [place] [address] 02/26/2019 12:00:00 AM EST eCW1 ([facility]) [address] [place] [address] 02/26/2019 12:00:00 AM EST eCW1 ([facility]) [address] [place] [address] 02/25/2019 12:00:00 AM EST eCW1 ([facility]) [address] [address] 02/22/2019 12:00:00 AM EST eCW1 ([facility]) Ludmila Tomlinson, [employer]: [address], [place] [address], Ph. Attender: Ludmila Tomlinson [employer] [place] - [facility] - Main Office 02/20/2019 12:00:00 AM EST ATHE NA ([facility]) [place] [address] [facility] [place] [address] 02/19/2019 12:00:00 AM EST eCW1 ([facility]) [facility] [place] [address] [facility] [address] 02/19/2019 12:00:00 AM EST eCW1 ([facility]) [facility] [place] [address] [facility] [address] 02/15/2019 12:00:00 AM EST eCW1 ([facility]) [facility] [place] [address] [facility] [place] [address] 02/14/2019 12:00:00 AM EST eCW1 ([facility]) Outpatient Referrer: Ludmila BUENROSTRO 02/13/2019 04:58:0 0 AM EST [facility] Immunizations Vaccine Date Status Description Data Source(s) influenza, recombinant, quadrIvalent,injectable, prese rvative free 12/20/2019 10:30:00 AM EDT completed eCW1 ([facility]) influenza, recombinant, quadrIvalent,injectable, prese rvative free 12/20/2019 10:30:00 AM EDT completed eCW1 ([facility]) influenza, recombinant, quadrIvalent,injectable, prese rvative free 12/20/2019 10:30:00 AM EDT completed eCW1 ([facility]) influenza, recombinant, quadrIvalent,injectable, prese rvative free 12/20/2019 10:30:00 AM EDT completed eCW1 ([facility]) influenza, recombinant, quadrIvalent,injectable, prese rvative free 12/20/2019 10:30:00 AM EDT completed eCW1 ([facility]) influenza, recombinant, quadrIvalent,injectable, prese rvative free 12/20/2019 10:30:00 AM EDT completed eCW1 ([facility]) influenza, recombinant, quadrIvalent,injectable, prese rvative free 12/20/2019 10:30:00 AM EDT completed eCW1 ([facility]) influenza, recombinant, quadrIvalent,injectable, prese rvative free 12/20/2019 10:30:00 AM EDT completed eCW1 ([facility]) influenza, recombinant, quadrIvalent,injectable, prese rvative free 12/20/2019 10:30:00 AM EDT completed eCW1 ([facility]) influenza, recombinant, quadrIvalent,injectable, prese rvative free 12/20/2019 10:30:00 AM EDT completed eCW1 (Formerly [facility]) Medications Medication Brand Name Start Date Product Form Dose Route Admi nistrative Instructions Pharmacy Instructions Status Indications Reaction Description Data Source(s) Blood Pressure Cuff - Blood Pressure Cuff - 04/09/2020 12:00:00 AM EST active Blood Pressure Cuff - eCW1 ( [facility]) 20 mEq 04/09/2020 12:00:00 AM EST tablet extended release 60 TAKE ONE TABLET BY MOUTH TWICE A DAY WITH FOOD TAKE ONE TABLET BY MOUTH TWICE A DAY WITH FOOD SOLD: 04/09/2020 [facility] Diphenhydramine-Zinc Acetate 1-0.1 % UNK 04/09/2020 12:00: 00 AM EST 1.0 {application_as_needed} active Diphenhy dramine-Zinc Acetate 1-0.1 % eCW1 ([facility]) 20 mg 04/06/2020 12:00:00 AM EST tablet 60 TAKE TWO TABLETS BY MOUTH EVERY DAY TAKE TWO TABLETS BY MOUTH EVERY DAY SOLD: 04/07/2020 [facility] Metoprolol Tartrate 25 MG Oral Tablet Metoprolol Tartrate 25 MG 03/27/2020 12:00:00 AM EST 1.0 {tablet_with_food} active Metoprolol Tartrate 25 MG eCW1 ([facility]) Hydralazine Hydrochloride 10 MG Oral Tablet HydrALAZIN E HCl 10 MG HydrALAZINE HCl 10 MG 03/27/2020 12:00:00 AM EST 2.0 {tablet_with_food} active HydrALAZINE HCl 10 MG eCW1 ([facility]) Metoprolol Tartrate 25 MG Oral Tablet Metoprolol Tartrate 25 MG 03/27/2020 12:00:00 AM EST 1.0 {tablet_with_food} active Metoprolol Tartrate 25 MG eCW1 ([facility]) Potassium Chloride 20 MEQ Extended Relea se Oral Tablet Potassium Chloride ER 20 MEQ Potassium Chloride ER 20 MEQ 03/27/2020 12:00:00 AM EST 1.0 {tablet_with_food} active Potassium Chl oride ER 20 MEQ eCW1 ([facility]) Hydralazine Hydrochloride 10 MG Oral Tablet HydrALAZIN E HCl 10 MG HydrALAZINE HCl 10 MG 03/27/2020 12:00:00 AM EST 2.0 {tablet_with_food} active HydrALAZINE HCl 10 MG eCW1 ([facility]) Hydralazine Hydrochloride 10 MG Oral Tablet HydrALAZIN E HCl 10 MG HydrALAZINE HCl 10 MG 03/27/2020 12:00:00 AM EST 2.0 {tablet_with_food} active HydrALAZINE HCl 10 MG eCW1 ([facility]) Potassium Chloride 20 MEQ Extended Relea se Oral Tablet Potassium Chloride ER 20 MEQ Potassium Chloride ER 20 MEQ 03/27/2020 12:00:00 AM EST 1.0 {tablet_with_food} active Potassium Chl oride ER 20 MEQ eCW1 ([facility]) Potassium Chloride 20 MEQ Extended Relea se Oral Tablet Potassium Chloride ER 20 MEQ Potassium Chloride ER 20 MEQ 03/27/2020 12:00:00 AM EST 1.0 {tablet_with_food} active Potassium Chl oride ER 20 MEQ eCW1 ([facility]) Potassium Chloride 20 MEQ Extended Relea se Oral Tablet Potassium Chloride ER 20 MEQ Potassium Chloride ER 20 MEQ 03/27/2020 12:00:00 AM EST 1.0 {tablet_with_food} active Potassium Chl oride ER 20 MEQ eCW1 ([facility]) Metoprolol Tartrate 25 MG Oral Tablet Metoprolol Tartrate 25 MG 03/27/2020 12:00:00 AM EST 1.0 {tablet_with_food} active Metoprolol Tartrate 25 MG eCW1 ([facility]) Hydralazine Hydrochloride 10 MG Oral Tablet HydrALAZIN E HCl 10 MG HydrALAZINE HCl 10 MG 03/27/2020 12:00:00 AM EST 2.0 {tablet_with_food} active HydrALAZINE HCl 10 MG eCW1 ([facility]) Metoprolol Tartrate 25 MG Oral Tablet Metoprolol Tartrate 25 MG 03/27/2020 12:00:00 AM EST 1.0 {tablet_with_food} active Metoprolol Tartrate 25 MG eCW1 ([facility]) Potassium Chloride 20 MEQ Extended Relea se Oral Tablet Potassium Chloride ER 20 MEQ Potassium Chloride ER 20 MEQ 03/27/2020 12:00:00 AM EST 1.0 {tablet_with_food} active Potassium Chl oride ER 20 MEQ eCW1 ([facility]) Hydralazine Hydrochloride 10 MG Oral Tablet HydrALAZIN E HCl 10 MG HydrALAZINE HCl 10 MG 03/27/2020 12:00:00 AM EST 2.0 {tablet_with_food} active HydrALAZINE HCl 10 MG eCW1 ([facility]) Metoprolol Tartrate 25 MG Oral Tablet Metoprolol Tartrate 25 MG 03/27/2020 12:00:00 AM EST 1.0 {tablet_with_food} active Metoprolol Tartrate 25 MG eCW1 ([facility]) 10 mg 03/26/2020 12:00:00 AM EST tablet 180 TAKE TWO TABLETS BY MOUTH THREE TIMES A DAY TAKE TWO TABLETS BY MOUTH THREE TIMES A DAY SOLD: 03/26/2020 [facility] potassium chloride SA (K-DUR,KLOR-CON) 20 MEQ tablet 13505-6 99-01 03/26/2020 12:00:00 AM EST 20 meq Oral active Take 20 mEq by mouth [facility] 20 mEq 03/26/2020 12:00:00 AM EST tablet,ER particles/cry stals 28 TAKE ONE TABLET BY MOUTH TWICE A DAY TAKE ONE TABLET BY MOUTH TWICE A DAY SOLD: 03/26/2020 [facility] 100 mg 03/23/2020 12:00:00 AM EST tablet 90 TAKE ONE TABLET BY MOUTH EVERY DAY TAKE ONE TABLET BY MOUTH EVERY DAY SOLD: 03/23/2020 [facility] 25 mg 03/15/2020 12:00:00 AM EST [...] 40 MG Delayed Release Oral Tablet pantoprazole (PROTONIX) 40 MG tablet pantoprazole (PROTONIX) 40 MG tablet 03/15/2020 12:00:00 AM EST 40 mg Oral active Take 40 mg by mouth 2 (two) times a day [facility] Metoprolol Tartrate 25 MG Oral Tablet me toprolol tartrate (LOPRESSOR) 25 MG tablet metoprolol tartrate (LOPRESSOR) 25 MG tablet 03/15/2020 12:0 0:00 AM EST active TAKE ONE TABLET BY MOUTH TWICE A DAY FOR BLOOD PRESSURE [facility] pantoprazole 40 MG Delayed Release Oral Tablet PANTOPRAZOLE SODIUM 03/15/2020 12:00:00 AM EST tablet,delayed release (DR/EC) 60 T MATTI ONE TABLET BY MOUTH TWICE A DAY TAKE ONE TABLET BY MOUTH TWICE A DAY SOLD: 03/15/2020 [facility] Promethazine Hydrochloride 25 MG Oral Tablet PROMETHAZINE HC L 03/15/2020 12:00:00 AM EST tablet 20 TAKE ONE TABLET BY MOUTH EVERY 12 HOURS NEEDED FOR NAUSEA AND VOMITING TAKE ONE TABLET BY MOUTH EVERY 12 HOURS NEEDED FOR NAUSEA AND VOMITING SOLD: 03/15/2020 [facility] Losartan Potassium 25 MG Oral Tablet losartan (COZAAR) 25 MG tablet losartan (COZAAR) 25 MG tablet 02/20/2020 12:00:00 AM EST 1 {tbl} active 1 tablet daily [facility] Ondansetron 4 MG Oral Tablet ondansetron (ZOFRAN) 4 MG tablet ondansetron (ZOFRAN) 4 MG tablet 02/15/2020 12:00:00 AM EST 1 {tbl} active 1 tablet as needed [facility] Morphine Sulfate 15 MG Oral Tablet morphine (MSIR) 15 MG tablet morphine (MSIR) 15 MG tablet 01/08/2020 12:00:00 AM EDT activ e TAKE 1 TABLET BY MOUTH 3 TIMES A DAY NEEDED FOR PAIN MAX DAILY DOSE 3 TABLETS [facility] 400 mg (241.3 mg magnesium) 01/08/2020 12:00:00 AM EDT table t 60 TAKE ONE TABLET BY MOUTH TWICE A DAY TAKE ONE TABLET BY MOUTH TWICE A DAY SOLD: 02/05/2020 [facility] 15 mg 01/08/2020 12:00:00 AM EDT [...] {tablet_as_needed} active Tizanidine HCl 2 MG eCW1 ([facility]) 2 mg 12/20/2019 12:00:00 AM EDT tablet 90 TAKE ONE TABLET BY MOUTH THREE TIMES A DAY NEEDED TAKE ONE TABLET BY MOUTH THREE TIMES A DAY NEEDED S OLD: 12/20/2019 [facility] Trazodone Hydrochloride 50 MG Oral Tablet TraZODone HC l 50 MG TraZODone HCl 50 MG 12/20/2019 12:00:00 AM EDT 0.51 {tablet_at_bedtime_as_needed} active TraZODone HCl 50 MG eCW1 ([facility]) Trazodone Hydrochloride 50 MG Oral Tablet TraZODone HC l 50 MG TraZODone HCl 50 MG 12/20/2019 12:00:00 AM EDT 0.51 {tablet_at_bedtime_as_needed } suspended TraZODone HCl 50 MG eCW1 ([facility]) Trazodone Hydrochloride 50 MG Oral Tablet TraZODone HC l 50 MG TraZODone HCl 50 MG 12/20/2019 12:00:00 AM EDT 0.51 {tablet_at_bedtime_as_needed} active TraZODone HCl 50 MG eCW1 ([facility]) tizanidine 2 MG Oral Tablet Tizanidine HCl 2 MG Tizanidine H Cl 2 MG 12/20/2019 12:00:00 AM EDT 1.0 {tablet_as_needed} active Tizanidine HCl 2 MG eCW1 ([facility]) tizanidine 2 MG Oral Tablet Tizanidine HCl 2 MG Tizanidine H Cl 2 MG 12/20/2019 12:00:00 AM EDT 1.0 {tablet_as_needed} active Tizanidine HCl 2 MG eCW1 ([facility]) tizanidine 2 MG Oral Tablet Tizanidine HCl 2 MG Tizanidine H Cl 2 MG 12/20/2019 12:00:00 AM EDT 1.0 {tablet_as_needed} active Tizanidine HCl 2 MG eCW1 ([facility]) Trazodone Hydrochloride 50 MG Oral Tablet TraZODone HC l 50 MG TraZODone HCl 50 MG 12/20/2019 12:00:00 AM EDT 0.51 {tablet_at_bedtime_as_needed} active TraZODone HCl 50 MG eCW1 ([facility]) Trazodone Hydrochloride 50 MG Oral Tablet TraZODone HC l 50 MG TraZODone HCl 50 MG 12/20/2019 12:00:00 AM EDT 0.51 {tablet_at_bedtime_as_needed} active TraZODone HCl 50 MG eCW1 ([facility]) 50 mg 12/20/2019 12:00:00 AM EDT tablet 30 TAKE 1/2-1 TABLET BY MOUTH ONCE A DAY AT BEDTIME NEEDED TAKE 1/2-1 TABLET BY MOUTH ONCE A DAY AT BEDTIME NEEDED SOLD: 12/20/2019 [facility] tizanidine 2 MG Oral Tablet Tizanidine HCl 2 MG Tizanidine H Cl 2 MG 12/20/2019 12:00:00 AM EDT 1.0 {tablet_as_needed} suspended Tizanidine HCl 2 MG eCW1 ([facility]) Metronidazole 500 MG Oral Tablet METRONIDAZOLE 12/01/2019 [...] TABLET BY MOUTH EVERY DAY SOLD: 10/01/2019 [facility] 100 mg 10/01/2019 12:00:00 AM EDT tablet 90 TAKE ONE TABLET BY MOUTH EVERY DAY TAKE ONE TABLET BY MOUTH EVERY DAY SOLD: 12/27/2019 [facility] 100 mg 09/28/2019 12:00:00 AM EDT tablet 90 TAKE ONE TABLET BY MOUTH EVERY DAY TAKE ONE TABLET BY MOUTH EVERY DAY SOLD: 09/28/2019 [facility] 100 mg 09/28/2019 12:00:00 AM EDT tablet 90 TAKE ONE TABLET BY MOUTH EVERY DAY TAKE ONE TABLET BY MOUTH EVERY DAY SOLD: 12/26/2019 [facility] 2 mg 09/27/2019 12:00:00 AM EDT capsule 40 TAKE TWO CAPSULES BY MOUTH EVERY 6 HOURS NEEDED FOR DIARRHEA TAKE TWO CAPSULES BY MOUTH EVERY 6 HOURS NEEDED FOR DIARRHEA SOLD: 09/27/2019 [facility] torsemide 100 MG Oral Tablet torsemide (DEMADEX) 100 M G tablet torsemide (DEMADEX) 100 MG tablet 09/25/2019 12:00:00 AM EDT 100 mg Oral active Take 1 tablet (100 mg total) by mouth daily [facility] 25 mg 09/24/2019 12:00:00 AM EDT tablet 30 TAKE ONE TABLET BY MOUTH ONCE DAILY TAKE ONE TABLET BY MOUTH ONCE DAILY SOLD: 09/24/2019 [facility] Acyclovir 400 MG Oral Tablet ACYCLOVIR 09/24/2019 12:00:00 AM EDT tabl et 60 TAKE ONE TABLET BY MOUTH TWO TIMES A DAY TAKE ONE TABLET BY MOUTH TWO TIMES A DAY SOLD: 09/24/2019 [facility] Acyclovir 400 MG Oral Tablet ACYCLOVIR 09/24/2019 12:00:00 AM EDT tabl et 60 TAKE ONE TABLET BY MOUTH TWO TIMES A DAY TAKE ONE TABLET BY MOUTH TWO TIMES A DAY SOLD: 04/06/2020 [facility] Hydroxyzine Hydrochloride 25 MG Oral Tablet hydrOXYzin e (ATARAX) 25 MG tablet hydrOXYzine (ATARAX) 25 MG tablet 09/23/2019 12:00:00 AM EDT 25 mg Oral active Take 25 mg by mouth nightly [facility] atorvastatin 80 MG Oral Tablet Atorvastatin Calcium 80 MG Atorvastatin Calcium 80 MG 09/20/2019 12:00:00 AM EDT 1.0 {tablet} activ e Atorvastatin Calcium 80 MG eCW1 ([facility]) 24 HR Metformin hydrochloride 750 MG Ext ended Release Oral Tablet MetFORMIN HCl ER 750 MG MetFORMIN HCl ER 750 MG 09/20/2019 12:00:00 AM EDT 1.0 {tablet_with_evening_meal} suspended Met FORMIN HCl ER 750 MG eCW1 ([facility]) MetFORMIN HCl ER 750 MG MetFORMIN HCl ER 750 MG 09/20/2019 12:00:00 AM EDT 1.0 {tablet_with_evening_meal} suspended Me tFORMIN HCl ER 750 MG eCW1 ([facility]) atorvastatin 80 MG Oral Tablet Atorvastatin Calcium 80 MG Atorvastatin Calcium 80 MG 09/20/2019 12:00:00 AM EDT 1.0 {tablet} activ e Atorvastatin Calcium 80 MG eCW1 ([facility]) 24 HR Metformin hydrochloride 750 MG Ext ended Release Oral Tablet MetFORMIN HCl ER 750 MG MetFORMIN HCl ER 750 MG 09/20/2019 12:00:00 AM EDT 1.0 {tablet_with_evening_meal} active MetFO RMIN HCl ER 750 MG eCW1 ([facility]) 24 HR Metformin hydrochloride 750 MG Ext ended Release Oral Tablet MetFORMIN HCl ER 750 MG MetFORMIN HCl ER 750 MG 09/20/2019 12:00:00 AM EDT 1.0 {tablet_with_evening_meal} active MetFO RMIN HCl ER 750 MG eCW1 ([facility]) MetFORMIN HCl ER 750 MG MetFORMIN HCl ER 750 MG 09/20/2019 12:00:00 AM EDT 1.0 {tablet_with_evening_meal} suspended Me tFORMIN HCl ER 750 MG eCW1 ([facility]) 24 HR Metformin hydrochloride 750 MG Ext ended Release Oral Tablet MetFORMIN HCl ER 750 MG MetFORMIN HCl ER 750 MG 09/20/2019 12:00:00 AM EDT 1.0 {tablet_with_evening_meal} active MetFO RMIN HCl ER 750 MG eCW1 ([facility]) atorvastatin 80 MG Oral Tablet ATORVASTATIN CALCIUM 09/20/2019 1 2:00:00 AM EDT tablet 90 TAKE 1 TABLET BY MOUTH ONCE A DAY TAKE 1 TABLET BY MOUTH ONCE A DAY SOLD: 09/20/2019 [facility] atorvastatin 80 MG Oral Tablet Atorvastatin Calcium 80 MG Atorvastatin Calcium 80 MG 09/20/2019 12:00:00 AM EDT 1.0 {tablet} activ e Atorvastatin Calcium 80 MG eCW1 ([facility]) 24 HR Metformin hydrochloride 750 MG Ext ended Release Oral Tablet MetFORMIN HCl ER 750 MG MetFORMIN HCl ER 750 MG 09/20/2019 12:00:00 AM EDT 1.0 {tablet_with_evening_meal} suspended Met FORMIN HCl ER 750 MG eCW1 ([facility]) atorvastatin 80 MG Oral Tablet Atorvastatin Calcium 80 MG Atorvastatin Calcium 80 MG 09/20/2019 12:00:00 AM EDT 1.0 {tablet} activ e Atorvastatin Calcium 80 MG eCW1 ([facility]) atorvastatin 80 MG Oral Tablet Atorvastatin Calcium 80 MG Atorvastatin Calcium 80 MG 09/20/2019 12:00:00 AM EDT 1.0 {tablet} activ e Atorvastatin Calcium 80 MG eCW1 ([facility]) atorvastatin 80 MG Oral Tablet Atorvastatin Calcium 80 MG Atorvastatin Calcium 80 MG 09/20/2019 12:00:00 AM EDT 1.0 {tablet} activ e Atorvastatin Calcium 80 MG eCW1 ([facility]) atorvastatin 80 MG Oral Tablet Atorvastatin Calcium 80 MG Atorvastatin Calcium 80 MG 09/20/2019 12:00:00 AM EDT 1.0 {tablet} activ e Atorvastatin Calcium 80 MG eCW1 ([facility]) MetFORMIN HCl ER 750 MG MetFORMIN HCl ER 750 MG 09/20/2019 12:00:00 AM EDT 1.0 {tablet_with_evening_meal} suspended Me tFORMIN HCl ER 750 MG eCW1 ([facility]) atorvastatin 80 MG Oral Tablet Atorvastatin Calcium 80 MG Atorvastatin Calcium 80 MG 09/20/2019 12:00:00 AM EDT 1.0 {tablet} activ e Atorvastatin Calcium 80 MG eCW1 ([facility]) atorvastatin 80 MG Oral Tablet Atorvastatin Calcium 80 MG Atorvastatin Calcium 80 MG 09/20/2019 12:00:00 AM EDT 1.0 {tablet} suspe nded Atorvastatin Calcium 80 MG eCW1 ([facility]) 750 mg 09/20/2019 12:00:00 AM EDT tablet extended release 24 hr 180 TAKE ONE TABLET BY MOUTH TWICE A DAY TAKE ONE TABLET BY MOUTH TWICE A DAY SOLD: 09/20/2019 [facility] MetFORMIN HCl ER 750 MG MetFORMIN HCl ER 750 MG 09/20/2019 12:00:00 AM EDT 1.0 {tablet_with_evening_meal} active MetF ORMIN HCl ER 750 MG eCW1 ([facility]) 24 HR Metformin hydrochloride 750 MG Ext ended Release Oral Tablet MetFORMIN HCl ER 750 MG MetFORMIN HCl ER 750 MG 09/20/2019 12:00:00 AM EDT 1.0 {tablet_with_evening_meal} active MetFO RMIN HCl ER 750 MG eCW1 ([facility]) atorvastatin 80 MG Oral Tablet Atorvastatin Calcium 80 MG Atorvastatin Calcium 80 MG 09/20/2019 12:00:00 AM EDT 1.0 {tablet} activ e Atorvastatin Calcium 80 MG eCW1 ([facility]) atorvastatin 80 MG Oral Tablet atorvastatin (LIPITOR) 80 MG tablet atorvastatin (LIPITOR) 80 MG tablet 09/20/2019 12:00:00 AM EDT 80 mg Oral aborted Take 80 mg by mouth daily [facility] atorvastatin 80 MG Oral Tablet Atorvastatin Calcium 80 MG Atorvastatin Calcium 80 MG 09/20/2019 12:00:00 AM EDT 1.0 {tablet} activ e Atorvastatin Calcium 80 MG eCW1 ([facility]) Potassium Chloride 10 MEQ Extended Release Oral Tablet POTAS SIUM CHLORIDE 09/16/2019 12:00:00 AM EDT tablet extended release 240 TAKE FOUR TABLETS BY MOUTH TWICE A DAY TAKE FOUR TABLETS BY MOUTH TWICE A DAY SOLD: 09/16/2019 [facility] Dexamethasone 4 MG Oral Tablet dexamethasone (DECADRON ) 4 MG tablet dexamethasone (DECADRON) 4 MG tablet 08/17/2019 12:00:00 AM EDT aborted [facility] 4 mg 08/17/2019 12:00:00 AM EDT tablet 40 TAKE 10 TABLETS [40MG] BY MOUTH ON MONDAYS TAKE 10 TABLETS [40MG] BY MOUTH ON MONDAYS SOLD: 08/17/2019 [facility] 4 mg 08/17/2019 12:00:00 AM EDT tablet 40 TAKE 10 TABLETS [40MG] BY MOUTH ON MONDAYS TAKE 10 TABLETS [40MG] BY MOUTH ON MONDAYS SOLD: 01/01/2020 [facility] 40 mg 08/14/2019 12:00:00 AM EDT tablet,delayed release (DR/EC) 60 TAKE ONE TABLET BY MOUTH TWICE A DAY [REFLUX DIFFICULT SWALLOWING] TAKE ONE TABLET BY MOUTH TWICE A DAY [REFLUX DIFFICULT SWALLOWING] SOLD: 11/13/2019 [facility] pantoprazole 40 MG Delayed Release Oral Tablet PANTOPRAZOLE SODIUM 08/14/2019 12:00:00 AM EDT tablet,delayed release (DR/EC) 60 T MATTI ONE TABLET BY MOUTH TWICE A DAY [REFLUX DIFFICULT SWALLOWING] TAKE ONE TABLET BY MOUTH TWICE A DAY [REFLUX DIFFICULT SWALLOWING] SOLD: 08/14/2019 [facility] 40 mg 08/14/2019 12:00:00 AM EDT tablet,delayed release (DR/EC) 60 TAKE ONE TABLET BY MOUTH TWICE A DAY [REFLUX DIFFICULT SWALLOWING] TAKE ONE TABLET BY MOUTH TWICE A DAY [REFLUX DIFFICULT SWALLOWING] SOLD: 10/10/2019 [facility] pantoprazole 40 MG Delayed Release Oral Tablet PANTOPRAZOLE SODIUM 08/14/2019 12:00:00 AM EDT tablet,delayed release (DR/EC) 60 T MATTI ONE TABLET BY MOUTH TWICE A DAY [REFLUX DIFFICULT SWALLOWING] TAKE ONE TABLET BY MOUTH TWICE A DAY [REFLUX DIFFICULT SWALLOWING] SOLD: 12/27/2019 [facility] pomalidomide 2 MG Oral Capsule Pomalidomide (POMALYST) 2 MG CAPS Pomalidomide (POMALYST) 2 MG CAPS 08/01/2019 12:00:00 AM EDT ab [facility] Misc. Devices - UNK 07/17/2019 12:00:00 AM EDT active Misc. Devices - eCW1 ([facility]) Misc. Devices - UNK 07/17/2019 12:00:00 AM EDT active Misc. Devices - eCW1 ([facility]) Misc. Devices - UNK 07/17/2019 12:00:00 AM EDT active Misc. Devices - eCW1 ([facility]) Misc. Devices - UNK 07/17/2019 12:00:00 AM EDT suspended Misc. Devices - eCW1 ([facility]) Misc. Devices - UNK 07/17/2019 12:00:00 AM EDT active Misc. Devices - eCW1 ([facility]) Misc. Devices - UNK 07/17/2019 12:00:00 AM EDT active Misc. Devices - eCW1 ([facility]) Misc. Devices - UNK 07/17/2019 12:00:00 AM EDT active Misc. Devices - eCW1 ([facility]) Misc. Devices - UNK 07/17/2019 12:00:00 AM EDT ac tive as directed eCW1 ([facility]) Misc. Devices - UNK 07/17/2019 12:00:00 AM EDT active Misc. Devices - eCW1 ([facility]) Misc. Devices - UNK 07/17/2019 12:00:00 AM EDT active Misc. Devices - eCW1 ([facility]) Misc. Devices - UNK 07/17/2019 12:00:00 AM EDT active Misc. Devices - eCW1 ([facility]) 50 mg 07/15/2019 12:00:00 AM EDT tablet 56 TAKE 1 TAB.BY MOUTH EVERY 6HRS NEEDED FOR PAIN MAX = 4TABS/DAY TAKE 1 TAB.BY MOUTH EVERY 6HRS NEEDED FOR PAIN MAX = 4TABS/DAY SOLD: 07/15/2019 [facility] tramadol hydrochloride 50 MG Oral Tablet traMADol (ULT TIFF) 50 MG tablet traMADol (ULTRAM) 50 MG tablet 07/15/2019 12:00:00 AM EDT active TAKE 1 TAB.BY MOUTH EVERY 6HRS NEEDED FOR PAIN MAX 4TABS/DAY [facility] Acyclovir 400 MG Oral Tablet acyclovir (ZOVIRAX) 400 M G tablet acyclovir (ZOVIRAX) 400 MG tablet 07/13/2019 12:00:00 AM EDT 400 mg Oral aborted Take 400 mg by mouth 2 (two) times a day [facility] 81 mg 07/08/2019 12:00:00 AM EDT tablet,chewable 90 CHEW 1 TABLET BY MOUTH ONCE A DAY CHEW 1 TABLET BY MOUTH ONCE A DAY SOLD: 07/08/2019 [facility] 81 mg 07/08/2019 12:00:00 AM EDT tablet,chewable 90 CHEW 1 TABLET BY MOUTH ONCE A DAY CHEW 1 TABLET BY MOUTH ONCE A DAY SOLD: 09/23/2019 [facility] 10 mEq 06/20/2019 12:00:00 AM [...] BY MOUTH EVERY DAY SOLD: 09/08/2019 [facility] tramadol hydrochloride 50 MG Oral Tablet TRAMADOL HCL 06/03/2019 12:00:00 AM EDT tablet 56 TAKE ONE TABLET BY MOUTH EVERY 6 HOURS NEEDED FOR PAIN MAXIMUM DAILY DOSE = 4 TAKE ONE TABLET BY MOUTH EVERY 6 HOURS A S NEEDED FOR PAIN MAXIMUM DAILY DOSE = 4 SOLD: 06/03/2019 [facility] 4 mg 05/27/2019 12:00:00 AM EDT tablet [...] ] BY MOUTH ON MONDAYS SOLD: 07/27/2019 [facility] 100 mg 05/25/2019 12:00:00 AM [...] BY MOUTH TWICE A DAY SOLD: 07/14/2019 [facility] pantoprazole 40 MG Delayed Release Oral Tablet Pantoprazole Sodium 03/26/2019 12:00:00 AM EST ORAL active M EDENT ([facility], ) Magnesium Hydroxide 80 MG/ML Oral Suspension Milk Of Magnesi a 03/26/2019 12:00:00 AM EST ORAL active M EDENT ([facility], ) POLYETHYLENE GLYCOL 3350 105 MG/ML / Pot assium Chloride 0.18558 MEQ/ML / Sodium Bicarbonate 0.017 MEQ/ML / Sodium Chloride 0.0479 MEQ/ML Oral Solution [TriLyte] Trilyte 03/26/2019 12:00:00 AM EST active MEDENT ([facility], ) 40 mg 03/26/2019 12:00:00 AM EST tablet,delayed release (DR/EC) 60 TAKE ONE TABLET BY MOUTH TWICE A DAY TAKE ONE TABLET BY MOUTH TWICE A DAY SOLD: 06/04/2019 [facility] 40 mg 03/26/2019 12:00:00 AM EST tablet,delayed release (DR/EC) 60 TAKE ONE TABLET BY MOUTH TWICE A DAY TAKE ONE TABLET BY MOUTH TWICE A DAY SOLD: 03/26/2019 [facility] 40 mg 03/26/2019 12:00:00 AM EST [...] Once, Mon03/01/19 at 1545, For 1 dose [facility] Medication administered onsite 100 mg 02/28/2019 12:00:00 [...] MOUTH TWICE A DAY SOLD: 02/19/2019 [facility] Famotidine 40 MG Oral Tablet FAMOTIDINE 02/19/2019 12:00:00 AM EST tab let 30 TAKE 1 TABLET BY MOUTH ONCE A DAY AT BEDTIME TAKE 1 TABLET BY MOUTH ONCE A DAY AT BEDTIME SOLD: 02/19/2019 [facility] Famotidine 40 MG Oral Tablet Famotidine 40 MG 02/19/2019 12:00:[address] active 1 tablet at bedtime eCW1 ([facility]) Famotidine 40 MG Oral Tablet Famotidine 40 MG 02/19/2019 12:00:[address] active 1 tablet at bedtime eCW1 ([facility]) 1 gram 02/14/2019 12:00:00 AM EST tablet 120 TAKE ONE TABLET BY MOUTH FOUR TIMES A DAY TAKE ONE TABLET BY MOUTH FOUR TIMES A DAY SOLD: 02/14/2019 [facility] 17 gram/dose 02/11/2019 12:00:00 AM EST powder 510 MIX 17 GRAMS WITH 8 OUNCES OF FLUID ONCE A DAY MIX 17 GRAMS WITH 8 OUNCES OF FLUID ONCE A DAY SOLD: 02/11/2019 [facility] 10 gram/15 mL 02/11/2019 12:00:00 AM EST solution 473 TAKE 15ML BY MOUTH DAILY TAKE 15ML BY MOUTH DAILY SOLD: 02/11/2019 [facility] 800 mg 02/05/2019 12:00:00 AM EST tablet 60 TAKE ONE TABLET BY MOUTH TWICE A DAY TAKE ONE TABLET BY MOUTH TWICE A DAY SOLD: 04/08/2019 [facility] 800 mg 02/05/2019 12:00:00 AM EST tablet 60 TAKE ONE TABLET BY MOUTH TWICE A DAY TAKE ONE TABLET BY MOUTH TWICE A DAY SOLD: 07/02/2019 [facility] 40 mg 12/18/2018 12:00:00 AM [...] MOUTH EVERY DAY SOLD: 03/27/2019 [facility] 50 mcg (2,000 unit) 12/18/2018 12:00:00 AM EDT capsule 90 TAKE ONE CAPSULE BY MOUTH EVERY DAY TAKE ONE CAPSULE BY MOUTH EVERY DAY SOLD: 03/27/2019 [facility] 340-1,000 mg 11/16/2018 12:00:00 AM [...] IN THE EVENING SOLD: 04/08/2019 [facility] Losartan Potassium 100 MG Oral Tablet losartan (COZAAR ) 100 MG tablet losartan (COZAAR) 100 MG tablet 11/18/2015 12:00:00 AM EDT 100 mg Oral aborted Take 100 mg by mouth daily [facility] Potassium Chloride 10 MEQ Extended Relea se Oral Capsule potassium chloride (MICRO-K) 10 MEQ CR capsule potassium chloride (MICRO-K) 10 MEQ CR capsule 11/18/2015 12:00:00 AM EDT 10 meq Oral aborted Take 10 mEq by mouth 2 (two) times a day [facility] Furosemide 40 MG Oral Tablet furosemide (LASIX) 40 MG tablet furosemide (LASIX) 40 MG tablet 10/22/2008 12:00:00 AM EDT Oral aborted Take by mouth [facility] Colchicine 0.6 MG Oral Tablet colchicine 0.6 MG tablet colch icine 0.6 MG tablet aborted colchicine 0.6 m g tabs [facility] Cimetidine 800 MG Oral Tablet cimetidine 800 mg tablet cimet idine 800 mg tablet completed Cimetidine 800 MG Oral Tablet KIMANI ([facility]) Insurance Providers Payer name Policy type / Coverage type Policy ID Covered alliance party ID Covered alliance party's relationship to ling Policy Ling Plan Information EMEDNY [id number] SP [id number] [facility] [id number] SP [id number] [facility] [id number] SP [id number] MEDICAID [id number] [facility] MEDICARE [id number] 1 [facility]CA[facility]) O [id number] S [id number] MEDICAID M [id number] [facility] MEDICARE [id number] Lianne [id number] MEDICAID [id number] Lianne [id number] [employer] MED[employer]ARE COMPLETE -PHYS [id number] [employer] MED[employer]ARE COMPLETE - O/P [id number] [employer] MED[employer]ARE COMPLETE I/P [id number] MEDICARE [id number] SP [id number] [facility] MEDICAID [id number] [place] [id number] [facility] MEDICARE DUAL G [id number] Self [id number] MEDICAID M [id number] Self [id number] ARTURO I [id number] Self [id number] MEDICAID [id number] SP [id number] MEDICARE COMPLETE [id number] SP [id number] [facility](MCAID) O [id number] S [id number] MEDICAID [id number] SP [id number] [facility] MCRHMO [id number] SP [id number] [place] MEDICARE [id number] SP [id number] UHC UNITED MEDICARE DUAL G [id number] Self [id number] ANSI-Not a Secondary Insurance [id number] ANSI-Medicaid [id number] ANSI-Medicare Part B [id number] ANSI-Not a Secondary Insurance [id number] ANSI-Medicaid [id number] ANSI-Medicare Part B [id number] ANSI-Medicare Part B [id number] ANSI-Medicaid [id number] ANSI-Not a Secondary Insurance [id number] ANSI-Medicaid [id number] ANSI-Medicare Part B [id number] ANSI-Not a Secondary Insurance [id number] ANSI-Medicaid [id number] ANSI-Not a Secondary Insurance [id number] ANSI-Medicare Part B [id number] ANSI-Not a Secondary Insurance [id number] ANSI-Medicare Part B [id number] ANSI-Medicaid [id number] ANSI-Medicare Part B [id number] ANSI-Not a Secondary Insurance [id number] ANSI-Medicaid [id number] ANSI-Not a Secondary Insurance [id number] ANSI-Medicare Part B [id number] ANSI-Medicaid [id number] ANSI-Not a Secondary Insurance [id number] ANSI-Medicare Part B [id number] ANSI-Medicaid [id number] ANSI-Not a Secondary Insurance [id number] ANSI-Medicare Part B [id number] ANSI-Medicaid [id number] ANSI-Not a Secondary Insurance [id number] ANSI-Medicare Part B [id number] ANSI-Medicaid [id number] MEDICAID [id number] SP [id number] [facility] [id number] SP [id number] UHC UNITED MEDICARE COMPLETE G [id number] Self [id number] [place] Part [place] [id number] Self [id number] [place] Medicare Primary [id number] Self [id number] [employer] Medigap Part B [id number] Self [id number] [employer]/Medicare Commercial [id number] Self [id number] [place] [id number] Self [id number] ANSI-Medicare Part B [id number] ANSI-Not a Secondary Insurance [id number] ANSI-Medicaid [id number] MEDICARE [id number] SP [id number] ANSI-Medicaid [id number] ANSI-Medicare Part B [id number] ANSI-Medicare Part B [id number] ANSI-Medicare Part B [id number] ANSI-Medicare Part B [id number] ANSI-Medicaid [id number] ANSI-Medicare Part B [id number] ANSI-Medicaid [id number] ANSI-Medicare Part B [id number] ANSI-Medicaid [id number] ANSI-Medicare Part B [id number] ANSI-Medicare Part B [id number] ANSI-Medicare Part B [id number] ANSI-Medicaid [id number] ANSI-Medicare Part B [id number] ANSI-Medicare Part B [id number] ANSI-Medicaid [id number] ANSI-Medicare Part B [id number] ANSI-Medicaid [id number] ANSI-Medicare Part B [id number] ANSI-Medicare Part B [id number] [facility] O [id number] S [id number] ANSI-Medicare Part B [id number] ANSI-Medicare Part B [id number] ANSI-Medicaid [id number] ANSI-Medicaid [id number] ANSI-Medicare Part B [id number] ANSI-Medicare Part B [id number] [place] [id number] SP [id number] MEDICARE [id number] SP [id number] A ANSI-Medicaid [id number] ANSI-Medicare Part B [id number] ANSI-Medicare Part B [id number] MEDICARE C [id number] S [id number] MEDICARE C [id number] S [id number] A ANSI-Medicaid [id number] ANSI-Medicare Part B [id number] ANSI-Medicare Part B [id number] ANSI-Medicare Part B [id number] ANSI-Medicare Part B [id number] ANSI-Medicaid [id number] [facility] [id number] [facility] [id number] [facility] [id number] ARTUR[place] [id number] SP [id number] MEDICARE COMPLETE [id number] SP [id number] MEDICARE [id number] SP [id number] A MEDICARE COMPLETE [id number] SP [id number] [place] Med[place] Part [place] [id number] Self [id number] [facility] [id number] Self [id number] Medicare - [place] Medicare Primary [id number] Self [id number] [place]ig[place] Part B [id number] Self [id number] [employer] Commercial [id number] Self [id number] [facility] Medicare Commercial [id number] Self [id number] MEDICARE COMPLETE [id number] SP [id number] [place] Part B [id number] Self [id number] [facility] Medicare Commercial [id number] Self [id number] MEDICARE COMPLETE [id number] SP [id number] [place] Part B [id number] Self [id number] [employer]/ Health Care Options Medigap Part B [id number] Self [id number] Medicare - [place] Medicare Primary [id number] Self [id number] [place] Part B [id number] Self [id number] MEDICAID [id number] SP [id number] MEDICARE COMPLETE [id number] SP [id number] [facility] MEDICARE COMPLETE G [id number] Self [id number] MEDICARE COMPLETE [id number] SP [id number] [facility] [id number] SP [id number] [place] Medigap Part B Self [facility] Medicare Commercial [id number] Self [id number] MEDICARE COMPLETE [id number] SP [id number] MEDICARE COMPLETE-[facility] O [id number] S [id number] [employer] (Medicare) Medigap Part B Self [place] Medigap Part B Self [facility] Commercial Self [facility] [id number] SP [id number] MEDICARE [id number] SP [id number] A MEDICARE COMPLETE [id number] SP [id number] MEDICARE A [id number] Self [id number] MEDICAID [id number] S [id number] MEDICARE OUTPATIENT M [id number] S [id number] A [id number] Problems, Conditions, and Diagnoses Code Display Name Description Problem Type Effective Dates Data Source(s) F51.04 [id number] Psychophysiologic insomnia Problem 0 12:00:00 AM EDT eCW1 ([facility]) C90.00 [id number] Multiple myeloma not having achieved grant ssion Problem 09/19/2019 12:00:00 AM EDT eCW1 ([facility]) 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 Positive Quant iFERON-TB Gold test [id number] 07/18/2019 12:00:00 AM EDT [facility] M10.9 Gout Gout [id number] 07/18/2019 12:00:00 AM ED T [facility] G44.209 [id number] Tension headache Problem 04/15/2019 12:00:00 AM EST eCW1 ([facility]) G44.209 [id number] Tension headache Problem 04/15/2019 12:00:00 AM EST eCW1 ([facility]) E78.2 Mixed hyperlipidemia Mixed hyperlipidemia Diagnosis 04/08/2020 02:03:57 PM EST [facility] I10 Essential (primary) hypertension Essential (primary) h ypertension Diagnosis 04/08/2020 02:03:57 PM [facility] I35.0 Nonrheumatic aortic (valve) stenosis Nonrheumati c aortic (valve) stenosis Diagnosis 04/08/2020 02:03:57 PM [facility] I25.10 Atherosclerotic heart diseas e of [place] coronary artery without angina pectoris Atherosclerotic heart disease of [place] Diagnosis 04/08/2020 02:03:57 PM [facility] R531 Weakness Weakness Diagnosis 03/06/2020 10:10:00 AM ES [facility] G98784 Other pancytopenia Other pancytopenia Diagnosis 10:10:00 AM [facility] Z5111 Encounter for antineoplastic chemotherap y Encounter for antineoplastic chemotherapy Diagnosis 03/04/2020 12:24:00 PM [facility] C9000 Multiple myeloma not having achieved rem ission Multiple myeloma not having achieved remission Diagnosis 03/04/2020 12:24:00 PM [facility] R7303 Prediabetes Prediabetes Diagnosis 03/04/2020 12:24:00 PM [facility] I10 Essential (primary) hypertension Essential (primary) h ypertension Diagnosis 03/04/2020 12:24:00 PM [facility] E876 Hypokalemia Hypokalemia Diagnosis 03/04/2020 12:24:00 PM [facility] E8342 Hypomagnesemia Hypomagnesemia Diagnosis 03/04/2020 12:24: 00 PM [facility] R197 Diarrhea, unspecified Diarrhea, unspecified Diagnosis 03/04/2020 12:24:00 PM [facility] Z1159 Encounter for screening for other viral diseases Encounter for screening for other viral diseases Diagnosis 03/04/2020 12:24:00 PM [facility] R112 Nausea with vomiting, unspecified Nausea with vo miting, unspecified Diagnosis 03/04/2020 12:24:00 PM [facility] E860 Dehydration Dehydration Diagnosis 03/04/2020 12:24:00 PM [facility] H53.2 Diplopia Diplopia Diagnosis 10/07/2019 03:58:[address] [facility] M10.9 Gout, unspecified Gout, unspecified Diagnosis 04/12/2019 11:36:51 AM [facility] R76.12 Nonspecific reaction to cell mediated immunity measurement of gamma interferon antigen response without active tuberculosis Nonspecific reaction to cell mediated immunity measurement of gamma interferon antigen response without active tuberculosis Diagnosis 04/12/2019 11:36:[address] [facility] C90.00 Multiple myeloma not having achieved rem ission Multiple myeloma not having achieved remission Diagnosis 03/20/2019 01:25:42 PM [facility] C90.0 C90.0 Diagnosis 03/20/2019 01:25:42 PM [facility] Surgeries/Procedures Procedure Description Date Indications Data Source(s) ECG ROUTINE ECG W/LEAST 12 LDS W/I&R POCT AMB EKG Routine 04/08/2020 3:07 PM EST Atherosclerosis of [place] coronary artery of [place] heart without angina pectoris 04/08/2020 08:07:00 PM EST Atheroscleros is of [place] coronary artery of [place] heart without angina pectoris [facility] Atherosclerosis of [place] coronary arter y of [place] heart without angina pectoris Computerized Tomography (CT Scan) of Head Computerized Tomography (CT Scan) of Head 03/10/2020 12:00:00 AM [facility] Plain Radiography of Chest Plain Radiography of Chest 2019 12:00:00 AM [facility] Introduction of Electrolytic and Water B alance Substance into Peripheral Vein, Percutaneous Approach Introduction of Electrolytic and Water B alance Substance into Peripheral Vein, Percutaneous Approach 03/06/2020 12:00:00 AM [facility] Monitoring of Cardiac Electrical Activity, External Ap proach Monitoring of Cardiac Electrical Activity, External Approach 03/06/2020 12:00:00 AM [facility] Immunization: Flublok Quadrivalent (18 years & older) 0.5mL IM (Influenza) 12/20/2019 12:00:00 AM EDT eCW1 ([facility]) Endoscopy Upper GI Biopsy 10/04/2019 12:00:00 AM EDT MEDENT ([facility]) Colonoscopy W/ Poly 10/04/2019 12:00:00 AM EDT MEDENT ([facility]) Office Visit, Est Pt., Level 4 PC 07/17/2019 12:00:00 AM EDT eCW1 ([facility]) Office Visit, Est Pt., Level 4 FC 07/17/2019 12:00:00 AM EDT eCW1 ([facility]) Medicare, Tricare, [place], PC-INTERPRETATION AND REPORT 07/17/2019 12:00:00 AM EDT eCW1 ([facility]) Medicare, Tricare, [place], -ELECTROCARDIOGRAM, TRACING ON LY 07/17/2019 12:00:00 AM EDT eCW1 ([facility]) PHYSICIAN TELEPHONE EVALUATION 11-20 MIN 06/10/2019 12 :00:00 AM EDT eCW1 ([facility]) FLOW CYTOMETRY CELL CYCLE/DNA SHIMA LEUKEMIA / LYMPHOM A PHENOTYPE, PERIPHERAL BLOOD Routine 03/20/2019 10:25 AM EST 03/20/2019 03:25 :00 PM [facility] Endoscopy Upper GI Biopsy 03/11/2019 12:00:00 AM EST SWAPNA ([facility]) Office Visit, Est Pt., Level 2 FC 03/08/2019 12:00:00 AM EST eCW1 ([facility]) Office Visit, Est Pt., Level 3 PC 03/08/2019 12:00:00 AM EST eCW1 ([facility]) Results ID Date Data Source [id number] 03/24/2020 06:18:00 PM EST [facility] Name Value Range Interpretation Code Description Data Miladys rce(s) Supporting Document(s) SARS coronavirus 2 RNA [Presence] in Res piratory specimen by NELLY with probe detection NEGATIVE [facility] This lab was ordered by [facility] a nd reported by [facility]. ID Date Data Source [id number] 03/12/2020 07:14:00 AM EST [facility] Name Value Range Interpretation Code Description Data Miladys rce(s) Supporting Document(s) CBC W/AUTOMATED DIFF [facility] COMPLETE BLOOD COUNT Leukocytes [#/volume] in Blood by Automated count 2.4 10^3/uL 4.2 - 1 1.0 L [facility] Erythrocytes [#/volume] in Blood by Automated count 2.66 10^6/uL 4. 20 - 5.40 L [facility] Hemoglobin [Mass/volume] in Blood 8.9 g/dL 12.0 - 16.0 L [facility] Hematocrit [Volume Fraction] of Blood by Automated count 26.3 % 3 7.0 - 47.0 L [facility] Erythrocyte mean corpuscular volume [Entitic volume] by Auto mated count 98.9 fL 81.0 - 101 [facility] Erythrocyte mean corpuscular hemoglobin [Entitic mass] by Automated count 33.5 pg 27.0 - 34.0 [facility] Erythrocyte mean corpuscular hemoglobin concentration [Mass/volume] by Automated count 33.8 g/dL 31.0 - 36.0 [facility] Erythrocyte distribution width [Ratio] by Automated count 17.3 % 11.5 - 14.5 H [facility] Platelets [#/volume] in Blood by Automated count 121 10^3/uL 150 - 45 0 L [facility] Platelet mean volume [Entitic volume] in Blood by Automated count 10.1 fL 7.4 - 10.4 [facility] Neutrophils/100 leukocytes in Blood by Automated count 72.5 % 37. 0 - 80.0 [facility] Lymphocytes/100 leukocytes in Blood by Manual count 21.6 % 25.0 - 40.0 L [facility] Monocytes/100 leukocytes in Blood by Automated count 4.2 % 3.0 - 8.0 [facility] Eosinophils/100 leukocytes in Blood by Automated count 0.0 % 0.0 - 7.0 [facility] 0.4 %IG 1.3 % 0.0 - [facility] % 0.0 - 0.0 [facility] al Neutrophils [#/volume] in Blood by Automated count 1.71 10^3/uL 2.00 - 6.90 L [facility] Lymphocytes [#/volume] in Blood by Automated count 0.51 10^3/uL 0.60 - 3.40 L [facility] Monocytes [#/volume] in Blood by Automated count 0.10 10^3/uL 0.00 - 0.90 [facility] Eosinophils [#/volume] in Blood by Automated count 0.00 10^3/uL 0.00 - 0.70 [facility] Basophils [#/volume] in Blood by Automated count 0.01 10^3/uL 0.00 - 0.20 [facility] #IG 0.03 10^3/uL 0.00 - 0.10 [facility] #NRBC 0.00 10^3/uL 0.00 - 0.00 [facility] MANUAL DIFF SEE BELOW [facility] ital Segmented neutrophils/100 leukocytes in Blood by Manual count 78 % 37 - 80 [facility] BAND 1 % 0 - 5 [facility] al %LYMPH 18 % 25 - 40 L [facility] %MONO 2 % 3 - 8 L [facility] 1 RBC MORPH [facility] Anisocytosis [Presence] in Blood by Light microscopy 1+ NATASHA L: NONE SEEN A [facility] Macrocytes [Presence] in Blood by Light microscopy 1+ NORMAL: NONE SEEN A [facility] Poikilocytosis [Presence] in Blood by Light microscopy 1+ NOR MAL: NONE SEEN A [facility] Polychromasia [Presence] in Blood by Light microscopy 1+ NORM AL: NONE SEEN A [facility] { SICKLE CELL (NORMAL: NONE SEEN ) Ovalocytes [Presence] in Blood by Light microscopy 1+ NORMAL: NONE SEEN A [facility] Platelet adequacy [Presence] in Blood by Light microscopy DE CREASED NORMAL: NORMAL A [facility] COMMENT: ID Date Data Source [id number] 03/12/2020 06:43:00 AM [facility] Name Value Range Interpretation Code Description Data Miladys rce(s) Supporting Document(s) Magnesium [Mass/volume] in Serum or Plasma 1.5 MG/DL 1.7 - 2.2 L [facility] ID Date Data Source [id number] 03/12/2020 06:43:00 AM [facility] Name Value Range Interpretation Code Description Data Miladys rce(s) Supporting Document(s) COMPREHENSIVE METABOLIC PANEL [facility] COMPREHENSIVE METABOLIC PANEL Sodium [Moles/volume] in Serum or Plasma 139 mEq/L 134 - 153 [facility] Potassium [Moles/volume] in Serum or Plasma 4.8 mEq/L 3.6 - 5.0 [facility] Chloride [Moles/volume] in Serum or Plasma 104 mEq/L 98 - 107 [facility] Carbon dioxide, total [Moles/volume] in Serum or Plasma 27 MEQ/L 22 - 30 [facility] Glucose [Mass/volume] in Serum or Plasma 142 MG/DL 65 - 110 H [facility] BUN 8 MG/DL 7 - 21 [facility] al Creatinine [Mass/volume] in Serum or Plasma 0.5 MG/DL 0.7 - 1.5 L [facility] BUN/CREAT 16 8 - 27 [facility] al Protein [Mass/volume] in Serum or Plasma 5.4 G/DL 6.3 - 8.2 L [facility] Albumin [Mass/volume] in Serum or Plasma 3.5 G/DL 3.9 - 5.0 L [facility] Globulin [Mass/volume] in Serum by calculation 1.9 GM/DL 2.4 - 3.2 L [facility] A/G RATIO 1.8 0.8 - 2.0 [facility] Calcium [Mass/volume] in Serum or Plasma 8.5 MG/DL 8.4 - 10.2 [facility] Bilirubin.total [Mass/volume] in Serum or Plasma 1.0 MG/DL 0.2 - 1.3 [facility] Alkaline phosphatase [Enzymatic activity/volume] in Serum or Plasma 88 U/L 38 - 126 [facility] Aspartate aminotransferase [Enzymatic activity/volume] in Se rum or Plasma 9 U/L 5 - 40 [facility] Alanine aminotransferase [Enzymatic activity/volume] in Seru m or Plasma 7 U/L 7 - 56 [facility] Anion gap 3 in Serum or Plasma 8.0 mmol/L 8.0 - 16.0 [facility] AGE 64 yrs [facility] [...] >32 mL/min Normal ID Date Data Source [id number] 03/11/2020 10:52:00 AM EST [facility] [address] [place] [address] PHONE: [phone] FAX: [phone] Name .................. : GAMA Nobles Acct Number.................. : [id number] ROOM. ................. : 103-1 MR Number ................... : [id number] Stay type ............. : I/P Discharge Date......... ... : Admit Date ......... : 1 05/05/19 Admit Phys .................... : RACHEL Date of ....... : 1955 Family Phys ................... : NON STAFF Phone .................. : [phone] Age ................................ : 64 Film# .................. .:[id number] Sex ................................. : F Unsigned transcriptions are preliminary reports and do not represent a medical or legal document CT HEAD W/O CONTRAST [id number] COMPLETE:03/10/20 17:58 1109 (REASON FOR PROCEDURE :H [...] MD , 03/11/20 10:52, FERNANDO Transcribe Initials: IDANIA , Transcribe Date: 03/10/20 22:23, Dictation Date: Copy for: 002 [facility] Copy for: 710 [facility] REC Page 1 of 1 Name Value Range Interpretation Code Description Data Miladys rce(s) Supporting Document(s) ID Date Data Source [id number] 03/13/2020 08:14:00 PM [facility] Name Value Range Interpretation Code Description Data Miladys rce(s) Supporting Document(s) Cytomegalovirus DNA [log units/volume] ( viral load) in Plasma by Probe and target amplification method COMMENT [id number]/mL [facility] Unable to calculate result since non-num rickey result obtained forcomponent test. Cytomegalovirus DNA [Units/volume] (sohail l load) in Plasma by Probe and target amplification method Negative IU/mL Negative [facility] No CMV DNA detected.The quantitative ran ge of this assay is 200 to 1 million IU/mL.This test was developed and its performance characteristics determinedby [employer] It has not been cleared or approved by the Food and DrugAdministration. The FDA has determined that such clearance orapproval is not necessary. ID Date Data Source [id number] 03/11/2020 06:59:00 AM EST [facility] Name Value Range Interpretation Code Description Data Miladys rce(s) Supporting Document(s) CBC W/AUTOMATED DIFF [facility] COMPLETE BLOOD COUNT Leukocytes [#/volume] in Blood by Automated count 2.4 10^3/uL 4.2 - 1 1.0 L [facility] Erythrocytes [#/volume] in Blood by Automated count 2.51 10^6/uL 4. 20 - 5.40 L [facility] Hemoglobin [Mass/volume] in Blood 8.4 g/dL 12.0 - 16.0 L [facility] Hematocrit [Volume Fraction] of Blood by Automated count 25.3 % 3 7.0 - 47.0 L [facility] Erythrocyte mean corpuscular volume [Entitic volume] b y Automated count 100.8 fL 81.0 - 101 [facility] Erythrocyte mean corpuscular hemoglobin [Entitic mass] by Automated count 33.5 pg 27.0 - 34.0 [facility] Erythrocyte mean corpuscular hemoglobin concentration [Mass/volume] by Automated count 33.2 g/dL 31.0 - 36.0 [facility] Erythrocyte distribution width [Ratio] by Automated count 17.9 % 11.5 - 14.5 H [facility] Platelets [#/volume] in Blood by Automated count 101 10^3/uL 150 - 45 0 L [facility] Platelet mean volume [Entitic volume] in Blood by Automated count 10.8 fL 7.4 - 10.4 H [facility] Neutrophils/100 leukocytes in Blood by Automated count 58.0 % 37. 0 - 80.0 [facility] Lymphocytes/100 leukocytes in Blood by Manual count 26.8 % 25.0 - 40.0 [facility] Monocytes/100 leukocytes in Blood by Automated count 10.6 % 3.0 - 8.0 H [facility] Eosinophils/100 leukocytes in Blood by Automated count 3.8 % 0.0 - 7.0 [facility] Basophils/100 leukocytes in Blood by Automated count 0.4 % 0.0 - 2.5 [facility] %IG 0.4 % 0.0 - 0.0 H [facility] %NRBC 0.0 % 0.0 - 0.0 [facility] Neut[facility] [#/volume] in Blood by Automated count 1.36 10^3/uL 2.00 - 6.90 L [facility] Lymphocytes [#/volume] in Blood by Automated count 0.63 10^3/uL 0.60 - 3.40 [facility] Monocytes [#/volume] in Blood by Automated count 0.25 10^3/uL 0.00 - 0.90 [facility] Eosinophils [#/volume] in Blood by Automated count 0.09 10^3/uL 0.00 - 0.70 [facility] Basophils [#/volume] in Blood by Automated count 0.01 10^3/uL 0.00 - 0.20 [facility] #IG 0.01 10^3/uL 0.00 - 0.10 [facility] #NRBC 0.00 10^3/uL 0.00 - 0.00 [facility] MANUAL DIFF SEE BELOW [facility] ital Segmented neutrophils/100 leukocytes in Blood by Manual count 65 % 37 - 80 [facility] %LYMPH 20 % 25 - 40 L [facility] %MONO 9 % 3 - 8 H [facility] %EOS 6 % 0 - 7 [facility] RBC MORPH NOT INDICATED [facility] ID Date Data Source [id number] 03/11/2020 06:48:00 AM EST [facility] Name Value Range Interpretation Code Description Data Miladys rce(s) Supporting Document(s) Magnesium [Mass/volume] in Serum or Plasma 1.5 MG/DL 1.7 - 2.2 L [facility] ID Date Data Source [id number] 03/11/2020 06:48:00 AM EST [facility] Name Value Range Interpretation Code Description Data [facility](s) Supporting Document(s) COMPREHENSIVE METABOLIC PANEL [facility] COMPREHENSIVE METABOLIC PANEL Sodium [Moles/volume] in Serum or Plasma 139 mEq/L 134 - 153 [facility] Potassium [Moles/volume] in Serum or Plasma 4.1 mEq/L 3.6 - 5.0 [facility] Chloride [Moles/volume] in Serum or Plasma 104 mEq/L 98 - 107 [facility] Carbon dioxide, total [Moles/volume] in Serum or Plasma 29 MEQ/L 22 - 30 [facility] Glucose [Mass/volume] in Serum or Plasma 85 MG/DL 65 - 110 [facility] BUN 5 MG/DL 7 - 21 L [facility] al Creatinine [Mass/volume] in Serum or Plasma 0.6 MG/DL 0.7 - 1.5 L [facility] BUN/CREAT 8 8 - 27 [facility] al Protein [Mass/volume] in Serum or Plasma 5.1 G/DL 6.3 - 8.2 L [facility] Albumin [Mass/volume] in Serum or Plasma 3.1 G/DL 3.9 - 5.0 L [facility] Globulin [Mass/volume] in Serum by calculation 2.0 GM/DL 2.4 - 3.2 L [facility] A/G RATIO 1.6 0.8 - 2.0 [facility] al Calcium [Mass/volume] in Serum or Plasma 8.7 MG/DL 8.4 - 10.2 [facility] Bilirubin.total [Mass/volume] in Serum or Plasma 0.9 MG/DL 0.2 - 1.3 [facility] Alkaline phosphatase [Enzymatic activity/volume] in Serum or Plasma 83 U/L 38 - 126 [facility] Aspartate aminotransferase [Enzymatic activity/volume] in Se rum or Plasma 8 U/L 5 - 40 [facility] Alanine aminotransferase [Enzymatic activity/volume] in Seru m or Plasma 8 U/L 7 - 56 [facility] Anion gap 3 in Serum or Plasma 6.0 mmol/L 8.0 - 16.0 L [facility] AGE 64 yrs [facility] al NON-AA GFR >60 mL/min [facility] ital AFR AMER GFR >60 [place] [...] >32 mL/min Normal ID Date Data Source [id number] 03/10/2020 07:25:00 AM EST [facility] Name Value Range Interpretation Code Description Data Miladys rce(s) Supporting Document(s) COMPREHENSIVE METABOLIC PANEL [facility] COMPREHENSIVE METABOLIC PANEL Sodium [Moles/volume] in Serum or Plasma 141 mEq/L 134 - 153 [facility] Potassium [Moles/volume] in Serum or Plasma 4.3 mEq/L 3.6 - 5.0 [facility] Chloride [Moles/volume] in Serum or Plasma 105 mEq/L 98 - 107 [facility] Carbon dioxide, total [Moles/volume] in Serum or Plasma 29 MEQ/L 22 - 30 [facility] Glucose [Mass/volume] in Serum or Plasma 103 MG/DL 65 - 110 [facility] BUN 6 MG/DL 7 - 21 L [facility] al Creatinine [Mass/volume] in Serum or Plasma 0.5 MG/DL 0.7 - 1.5 L [facility] BUN/CREAT 12 8 - 27 [facility] Protein [Mass/volume] in Serum or Plasma 5.4 G/DL 6.3 - 8.2 L [facility] Albumin [Mass/volume] in Serum or Plasma 3.4 G/DL 3.9 - 5.0 L [facility] Globulin [Mass/volume] in Serum by calculation 2.0 GM/DL 2.4 - 3.2 L [facility] A/G RATIO 1.7 0.8 - 2.0 [facility] al Calcium [Mass/volume] in Serum or Plasma 8.8 MG/DL 8.4 - 10.2 [facility] Bilirubin.total [Mass/volume] in Serum or Plasma 0.7 MG/DL 0.2 - 1.3 [facility] Alkaline phosphatase [Enzymatic activity/volume] in Serum or Plasma 79 U/L 38 - 126 [facility] Aspartate aminotransferase [Enzymatic activity/volume] in Se rum or Plasma 9 U/L 5 - 40 [facility] Alanine aminotransferase [Enzymatic activity/volume] in Seru m or Plasma 8 U/L 7 - 56 [facility] Anion gap 3 in Serum or Plasma 7.0 mmol/L 8.0 - 16.0 L [facility] AGE 64 yrs [facility] al NON-AA GFR >60 mL/min [facility] ital AFR AMER GFR >60 [facility] pital Male GFR In terprentation 20-49 yrs [...] >32 mL/min Normal ID Date Data Source [id number] 03/10/2020 07:25:00 AM [facility] Name Value Range Interpretation Code Description Data Miladys rce(s) Supporting Document(s) Magnesium [Mass/volume] in Serum or Plasma 1.4 MG/DL 1.7 - 2.2 L [facility] ID Date Data Source [id number] 03/10/2020 07:20:00 AM [facility] Name Value Range Interpretation Code Description Data Miladys rce(s) Supporting Document(s) CBC W/AUTOMATED DIFF [facility] COMPLETE BLOOD COUNT Leukocytes [#/volume] in Blood by Automated count 2.7 10^3/uL 4.2 - 1 1.0 L [facility] Erythrocytes [#/volume] in Blood by Automated count 2.62 10^6/uL 4. 20 - 5.40 L [facility] Hemoglobin [Mass/volume] in Blood 8.9 g/dL 12.0 - 16.0 L [facility] Hematocrit [Volume Fraction] of Blood by Automated count 26.4 % 3 7.0 - 47.0 L [facility] Erythrocyte mean corpuscular volume [Entitic volume] b y Automated count 100.8 fL 81.0 - 101 [facility] Erythrocyte mean corpuscular hemoglobin [Entitic mass] by Automated count 34.0 pg 27.0 - 34.0 [facility] Erythrocyte mean corpuscular hemoglobin concentration [Mass/volume] by Automated count 33.7 g/dL 31.0 - 36.0 [facility] Erythrocyte distribution width [Ratio] by Automated count 18.2 % 11.5 - 14.5 H [facility] Platelets [#/volume] in Blood by Automated count 103 10^3/uL 150 - 45 0 L [facility] Platelet mean volume [Entitic volume] in Blood by Automated count 10.2 fL 7.4 - 10.4 [facility] Neutrophils/100 leukocytes in Blood by Automated count 58.0 % 37. 0 - 80.0 [facility] Lymphocytes/100 leukocytes in Blood by Manual count 28.0 % 25.0 - 40.0 [facility] Monocytes/100 leukocytes in Blood by Automated count 10.0 % 3.0 - 8.0 H [facility] Eosinophils/100 leukocytes in Blood by Automated count 2.6 % 0.0 - 7.0 [facility] Basophils/100 leukocytes in Blood by Automated count 0.7 % 0.0 - 2.5 [facility] %IG 0.7 % 0.0 - 0.0 [facility] %NRBC 0.0 % 0.0 - 0.0 [facility] al Neutrophils [#/volume] in Blood by Automated count 1.57 10^3/uL 2.00 - 6.90 L [facility] Lymphocytes [#/volume] in Blood by Automated count 0.76 10^3/uL 0.60 - 3.40 [facility] Monocytes [#/volume] in Blood by Automated count 0.27 10^3/uL 0.00 - 0.90 [facility] Eosinophils [#/volume] in Blood by Automated count 0.07 10^3/uL 0.00 - 0.70 [facility] Basophils [#/volume] in Blood by Automated count 0.02 10^3/uL 0.00 - 0.20 [facility] #IG 0.02 10^3/uL 0.00 - 0.10 [facility] #NRBC 0.00 10^3/uL 0.00 - 0.00 [facility] MANUAL DIFF SEE BELOW [facility] ital Segmented neutrophils/100 leukocytes in Blood by Manual count 64 % 37 - 80 [facility] BAND 1 % 0 - 5 [facility] %LYMPH 21 % 25 - 40 L [facility] %MONO 8 % 3 - 8 [facility] %EOS 5 % 0 - 7 [facility] Metamyelocytes/100 leukocytes in Blood by Manual count 1 % [facility] RBC MORPH SEE BELOW [facility] Anisocytosis [Presence] in Blood by Light microscopy 1+ NATASHA L: NONE SEEN A [facility] Macrocytes [Presence] in Blood by Light microscopy 1+ NORMAL: NONE SEEN A [facility] Poikilocytosis [Presence] in Blood by Light microscopy 1+ NOR MAL: NONE SEEN A [facility] Polychromasia [Presence] in Blood by Light microscopy 1+ NORM AL: NONE SEEN A [facility] { SICKLE CELL (NORMAL: NONE SEEN ) Platelet adequacy [Presence] in Blood by Light microscopy DE CREASED NORMAL: NORMAL A [facility] COMMENT: ID Date Data Source [id number] 03/09/2020 09:47:00 AM EST [facility] [address] [place] [address] PHONE: [phone] FAX: [phone] Name .................. : GAMA Nobles Acct Number.................. : [id number] ROOM. ................. : 103-1 MR Number ................... : [id number] Stay type ............. : O/P Discharge Date......... ... : Admit Date ......... : 03/04/20 Admit Phys .................... : DANIKA-FALAN Date of ....... : 1955 Family Phys ................... : NON STAFF Phone .................. : [phone] Age ................................ : 64 Film# .................. .:[id number] Sex ................................. : F Unsigned transcriptions are preliminary reports and do not represent a medical or legal document DOPPLER VENOUS BILAT LEG 31209 COMPLETE:03/05/20 12:55 KNB 862 (REASON FOR PROCESS: [...] 03/05/20 13:17, Dictation Date: Copy for: 002 [facility] Copy for: 710 [facility] REC Page 1 of 1 Name Value Range Interpretation Code Description Data Miladys rce(s) Supporting Document(s) ID Date Data Source [id number] 03/09/2020 09:20:00 [place] [address] PHONE: [phone] FAX: [phone] Name .................. : GAMA Nobles Acct Number.................. : [id number] ROOM. ................. : 103-1 MR Number ................... : [id number] Stay type ............. : I/P Discharge Date......... ... : Admit Date ......... : 03/04/20 Admit Phys .................... : RACHEL Date of ....... : 1955 Family Phys ................... : NON STAFF Phone .................. : [phone] Age ................................ : 64 Film# .................. .:[id number] Sex ................................. : F Unsigned transcriptions are preliminary reports and do not represent a medical or legal document CHEST 2 VIEWS 25031 COMPLETE:03/09/20 06:02 BEM 988 (REASON FOR CHEST: [...] 03/09/20 07:55, Dictation Date: Copy for: 002 [facility] Copy for: [address] [facility] REC Page 1 of 1 Name Value Range Interpretation Code Description Data Miladys rce(s) Supporting Document(s) ID Date Data Source [id number] 03/09/2020 07:42:00 AM EST [facility] Name Value Range Interpretation Code Description Data Miladys rce(s) Supporting Document(s) CBC W/AUTOMATED DIFF [facility] COMPLETE BLOOD COUNT Leukocytes [#/volume] in Blood by Automated count 2.3 10^3/uL 4.2 - 1 1.0 L [facility] Erythrocytes [#/volume] in Blood by Automated count 2.75 10^6/uL 4. 20 - 5.40 L [facility] Hemoglobin [Mass/volume] in Blood 9.1 g/dL 12.0 - 16.0 L [facility] Hematocrit [Volume Fraction] of Blood by Automated count 27.1 % 3 7.0 - 47.0 L [facility] Erythrocyte mean corpuscular volume [Entitic volume] by Auto mated count 98.5 fL 81.0 - 101 [facility] Erythrocyte mean corpuscular hemoglobin [Entitic mass] by Automated count 33.1 pg 27.0 - 34.0 [facility] Erythrocyte mean corpuscular hemoglobin concentration [Mass/volume] by Automated count 33.6 g/dL 31.0 - 36.0 [facility] Erythrocyte distribution width [Ratio] by Automated count 17.8 % 11.5 - 14.5 H [facility] Platelets [#/volume] in Blood by Automated count 101 10^3/uL 150 - 45 0 L [facility] Platelet mean volume [Entitic volume] in Blood by Automated count 10.8 fL 7.4 - 10.4 H [facility] Neutrophils/100 leukocytes in Blood by Automated count 58.2 % 37. 0 - 80.0 [facility] Lymphocytes/100 leukocytes in Blood by Manual count 27.0 % 25.0 - 40.0 [facility] Monocytes/100 leukocytes in Blood by Automated count 12.2 % 3.0 - 8.0 H [facility] Eosinophils/100 leukocytes in Blood by Automated count 1.3 % 0.0 - 7.0 [facility] Basophils/100 leukocytes in Blood by Automated count 0.9 % 0.0 - 2.5 [facility] %IG 0.4 % 0.0 - 0.0 [facility] %NRBC 0.0 % 0.0 - 0.0 [facility] al Neutrophils [#/volume] in Blood by Automated count 1.34 10^3/uL 2.00 - 6.90 L [facility] Lymphocytes [#/volume] in Blood by Automated count 0.62 10^3/uL 0.60 - 3.40 [facility] Monocytes [#/volume] in Blood by Automated count 0.28 10^3/uL 0.00 - 0.90 [facility] Eosinophils [#/volume] in Blood by Automated count 0.03 10^3/uL 0.00 - 0.70 [facility] Basophils [#/volume] in Blood by Automated count 0.02 10^3/uL 0.00 - 0.20 [facility] #IG 0.01 10^3/uL 0.00 - 0.10 [facility]spital #NRBC 0.00 10^3/uL 0.00 - 0.00 [facility] ospital MANUAL DIFF SEE BELOW [facility] Segmented neutrophils/100 leukocytes in Blood by Manual count 62 % 37 - 80 [facility] %LYMPH 29 % 25 - 40 [facility] al %MONO 8 % 3 - 8 [facility] al %EOS 1 % 0 - 7 [facility] al RBC MORPH NOT INDICATED [facility] ID Date Data Source [id number] 03/09/2020 07:26:00 AM EST [facility] Name Value Range Interpretation Code Description Data Miladys rce(s) Supporting Document(s) COMPREHENSIVE METABOLIC PANEL [facility] COMPREHENSIVE METABOLIC PANEL Sodium [Moles/volume] in Serum or Plasma 142 mEq/L 134 - 153 [facility] Potassium [Moles/volume] in Serum or Plasma 3.2 mEq/L 3.6 - 5.0 L [facility] Chloride [Moles/volume] in Serum or Plasma 101 mEq/L 98 - 107 [facility] Carbon dioxide, total [Moles/volume] in Serum or Plasma 34 MEQ/L 22 - 30 H [facility] Glucose [Mass/volume] in Serum or Plasma 99 MG/DL 65 - 110 [facility] BUN 8 MG/DL 7 - 21 [facility] Creatinine [Mass/volume] in Serum or Plasma 0.7 MG/DL 0.7 - 1.5 [facility] BUN/CREAT 11 8 - 27 [facility] al Protein [Mass/volume] in Serum or Plasma 5.4 G/DL 6.3 - 8.2 L [facility] Albumin [Mass/volume] in Serum or Plasma 3.6 G/DL 3.9 - 5.0 L [facility] Globulin [Mass/volume] in Serum by calculation 1.8 GM/DL 2.4 - 3.2 L [facility] A/G RATIO 2.0 0.8 - 2.0 [facility] Calcium [Mass/volume] in Serum or Plasma 8.5 MG/DL 8.4 - 10.2 [facility] Bilirubin.total [Mass/volume] in Serum or Plasma 1.0 MG/DL 0.2 - 1.3 [facility] Alkaline phosphatase [Enzymatic activity/volume] in Serum or Plasma 79 U/L 38 - 126 [facility] Aspartate aminotransferase [Enzymatic activity/volume] in Se rum or Plasma 9 U/L 5 - 40 [facility] Alanine aminotransferase [Enzymatic activity/volume] in Seru m or Plasma 8 U/L 7 - 56 [facility] Anion gap 3 in Serum or Plasma 7.0 mmol/L 8.0 - 16.0 L [facility] AGE 64 yrs [facility] al NON-AA GFR >60 mL/min [facility] ital AFR AMER GFR >60 [place] [...] >32 mL/min Normal ID Date Data Source [id number] 03/09/2020 07:26:00 AM [facility] Name Value Range Interpretation Code Description Data Miladys rce(s) Supporting Document(s) Magnesium [Mass/volume] in Serum or Plasma 1.2 MG/DL 1.7 - 2.2 L [facility] ID Date Data Source [id number] 03/16/2020 12:12:00 PM EST [facility] Name Value Range Interpretation Code Description Data [facility] rce(s) Supporting Document(s) CULTURE BLOOD [facility]ital _CULTURE BLOOD_ [place] [address] IA# [id number] SEE SCANNED REPORT{ PRELIM ID Date Data Source [id number] 03/10/2020 01:00:00 PM [facility] [id number] 12:56 CALLED TO WAYNE Nobles BY OPAL, RESULTS READBACKThe FilmArray BCID Panel is a qualitative multiplexednucleic acid-based [...] rce(s) Supporting Document(s) ID Date Data Source [id number] 03/16/2020 12:12:00 PM [facility] Name Value Range Interpretation Code Description Data Miladys rce(s) Supporting Document(s) CULTURE BLOOD [facility] spital _CULTURE BLOOD_ [place] [address] IA# [id number] SEE SCANNED REPORT{ PRELIM GROWTH OF GRAM POS COCCI IN CLUSTERSCALLED TO PAT ON AIU 03/10/20 1305 CM ID Date Data Source [id number] 03/08/2020 08:45:00 PM EST [facility] Name Value Range Interpretation Code Description Data Miladys rce(s) Supporting Document(s) COVID-19 NOT DETECTED [facility] This lab was ordered by [facility] and reported by [facility]. ID Date Data Source [id number] 03/08/2020 08:45:00 PM EST [facility] Name Value Range Interpretation Code Description Data Miladys rce(s) Supporting Document(s) COVID-19 REENTER NOT DETECTED [facility] This lab was ordered by [facility] and reported by [facility]. ID Date Data Source [id number] 03/08/2020 09:35:00 PM EST [facility] Name Value Range Interpretation Code Description Data Miladys rce(s) Supporting Document(s) COVID-19 NOT DETECTED [facility] COVID-19 REENTER NOT DETECTED [facility] { PROCEDURAL CONTROL VALID KIT LOT # _[id number] 03/08/20.DW . KIT EXP DATE _[id number] 03/08/20.DW . NORMAL RANGE IS NOT DETECTEDNEGATIVE RESULTS SHOULD BE TREATED PREUMPTIVE AND, IF INCONSISTENT WITHCLINICAL SIGNS AND SYMPTOMS OR NECESSARY FOR PATIENT MANAGEMENT, SHOULD BETESTED WITH DIFFERENT AUTHORIZED OR CLEARED MOLECULAR TESTS. NEGATIVE RESULTSDO NOT PRECLUDE SARS-CoV-2 INFECTION AND SHOULD NOT BE USED THE SOLE BASISFOR PATIENT MANAGEMENT DECISIONS. ID Date Data Source [id number] 03/08/2020 11:55:00 AM EST [facility] Name Value Range Interpretation Code Description Data Miladys rce(s) Supporting Document(s) Magnesium [Mass/volume] in Serum or Plasma 1.6 MG/DL 1.7 - 2.2 L [facility] ID Date Data Source [id number] 03/08/2020 09:41:00 AM EST [facility] Name Value Range Interpretation Code Description Data Miladys rce(s) Supporting Document(s) CBC W/AUTOMATED DIFF [facility] COMPLETE BLOOD COUNT Leukocytes [#/volume] in Blood by Automated count 2.3 10^3/uL 4.2 - 1 1.0 L [facility] Erythrocytes [#/volume] in Blood by Automated count 2.51 10^6/uL 4. 20 - 5.40 L [facility] Hemoglobin [Mass/volume] in Blood 8.5 g/dL 12.0 - 16.0 L [facility] Hematocrit [Volume Fraction] of Blood by Automated count 24.6 % 3 7.0 - 47.0 L [facility] Erythrocyte mean corpuscular volume [Entitic volume] by Auto mated count 98.0 fL 81.0 - 101 [facility] Erythrocyte mean corpuscular hemoglobin [Entitic mass] by Automated count 33.9 pg 27.0 - 34.0 [facility] Erythrocyte mean corpuscular hemoglobin concentration [Mass/volume] by Automated count 34.6 g/dL 31.0 - 36.0 [facility] Erythrocyte distribution width [Ratio] by Automated count 17.5 % 11.5 - 14.5 H [facility] Platelets [#/volume] in Blood by Automated count 94 10^3/uL 150 - 450 L [facility] Platelet mean volume [Entitic volume] in Blood by Automated count 11.1 fL 7.4 - 10.4 H [facility] Neutrophils/100 leukocytes in Blood by Automated count 61.3 % 37. 0 - 80.0 [facility] Lymphocytes/100 leukocytes in Blood by Manual count 23.2 % 25.0 - 40.0 L [facility] Monocytes/100 leukocytes in Blood by Automated count 12.9 % 3.0 - 8.0 H [facility] Eosinophils/100 leukocytes in Blood by Automated count 1.3 % 0.0 - 7.0 [facility] Basophils/100 leukocytes in Blood by Automated count 0.9 % 0.0 - 2.5 [facility] %IG 0.4 % 0.0 - 0.0 [facility] %NRBC 0.0 % 0.0 - 0.0 [facility] al Neutrophils [#/volume] in Blood by Automated count 1.43 10^3/uL 2.00 - 6.90 L [facility] Lymphocytes [#/volume] in Blood by Automated count 0.54 10^3/uL 0.60 - 3.40 L [facility] Monocytes [#/volume] in Blood by Automated count 0.30 10^3/uL 0.00 - 0.90 [facility] Eosinophils [#/volume] in Blood by Automated count 0.03 10^3/uL 0.00 - 0.70 [facility] Basophils [#/volume] in Blood by Automated count 0.02 10^3/uL 0.00 - 0.20 [facility] #IG 0.01 10^3/uL 0.00 - 0.10 [facility] #NRBC 0.00 10^3/uL 0.00 - 0.00 [facility] ospital MANUAL DIFF NOT INDICATED [facility] RBC MORPH NOT INDICATED [facility] [facility] Date Data Source [id number] 03/08/2020 09:00:00 AM EST [facility] Name Value Range Interpretation Code Description Data Miladys rce(s) Supporting Document(s) COMPREHENSIVE METABOLIC PANEL [facility] COMPREHENSIVE METABOLIC PANEL Sodium [Moles/volume] in Serum or Plasma 141 mEq/L 134 - 153 [facility] Potassium [Moles/volume] in Serum or Plasma 3.1 mEq/L 3.6 - 5.0 L [facility] Chloride [Moles/volume] in Serum or Plasma 106 mEq/L 98 - 107 [facility] Carbon dioxide, total [Moles/volume] in Serum or Plasma 30 MEQ/L 22 - 30 [facility] Glucose [Mass/volume] in Serum or Plasma 86 MG/DL 65 - 110 [facility] BUN <4 MG/DL 7 - 21 L [facility] Creatinine [Mass/volume] in Serum or Plasma 0.5 MG/DL 0.7 - 1.5 L [facility] BUN/CREAT 8 8 - 27 [facility] Protein [Mass/volume] in Serum or Plasma 5.1 G/DL 6.3 - 8.2 L [facility] Albumin [Mass/volume] in Serum or Plasma 2.9 G/DL 3.9 - 5.0 L [facility] Globulin [Mass/volume] in Serum by calculation 2.2 GM/DL 2.4 - 3.2 L [facility] A/G RATIO 1.3 0.8 - 2.0 [facility] Calcium [Mass/volume] in Serum or Plasma 8.3 MG/DL 8.4 - 10.2 L [facility] Bilirubin.total [Mass/volume] in Serum or Plasma 0.8 MG/DL 0.2 - 1.3 [facility] Alkaline phosphatase [Enzymatic activity/volume] in Serum or Plasma 70 U/L 38 - 126 [facility] Aspartate aminotransferase [Enzymatic activity/volume] in Se rum or Plasma 8 U/L 5 - 40 [facility] Alanine aminotransferase [Enzymatic activity/volume] in Seru m or Plasma 7 U/L 7 - 56 [facility] Anion gap 3 in Serum or Plasma 5.0 mmol/L 8.0 - 16.0 L [facility] AGE 64 yrs [facility] al NON-AA GFR >60 mL/min [facility] ital AFR AMER GFR >60 [place] [...] >32 mL/min Normal ID Date Data Source [id number] 03/07/2020 10:42:00 AM EST [facility] Name Value Range Interpretation Code Description Data Miladys rce(s) Supporting Document(s) Iron [Mass/volume] in Serum or Plasma 62 UG/DL 42 - 135 [facility] ID Date Data Source [id number] 03/07/2020 09:11:00 AM EST [facility] Name Value Range Interpretation Code Description Data Miladys rce(s) Supporting Document(s) CBC W/AUTOMATED DIFF [facility] COMPLETE BLOOD COUNT Leukocytes [#/volume] in Blood by Automated count 2.5 10^3/uL 4.2 - 1 1.0 L [facility] Erythrocytes [#/volume] in Blood by Automated count 2.52 10^6/uL 4. 20 - 5.40 L [facility] Hemoglobin [Mass/volume] in Blood 8.4 g/dL 12.0 - 16.0 L [facility] Hematocrit [Volume Fraction] of Blood by Automated count 24.8 % 3 7.0 - 47.0 L [facility] Erythrocyte mean corpuscular volume [Entitic volume] by Auto mated count 98.4 fL 81.0 - 101 [facility] Erythrocyte mean corpuscular hemoglobin [Entitic mass] by Automated count 33.3 pg 27.0 - 34.0 [facility] Erythrocyte mean corpuscular hemoglobin concentration [Mass/volume] by Automated count 33.9 g/dL 31.0 - 36.0 [facility] Erythrocyte distribution width [Ratio] by Automated count 17.5 % 11.5 - 14.5 H [facility] Platelets [#/volume] in Blood by Automated count 86 10^3/uL 150 - 450 L [facility] Platelet mean volume [Entitic volume] in Blood by Automated count 10.5 fL 7.4 - 10.4 H [facility] Neutrophils/100 leukocytes in Blood by Automated count 66.3 % 37. 0 - 80.0 [facility] Lymphocytes/100 leukocytes in Blood by Manual count 18.9 % 25.0 - 40.0 L [facility] Monocytes/100 leukocytes in Blood by Automated count 10.8 % 3.0 - 8.0 H [facility] Eosinophils/100 leukocytes in Blood by Automated count 2.8 % 0.0 - 7.0 [facility] Basophils/100 leukocytes in Blood by Automated count 0.8 % 0.0 - 2.5 [facility] %IG 0.4 % 0.0 - 0.0 [facility] 0.[facility] % 0.0 - 0.0 [facility] al Neutrophils [#/volume] in Blood by Automated count 1.65 10^3/uL 2.00 - 6.90 L [facility] Lymphocytes [#/volume] in Blood by Automated count 0.47 10^3/uL 0.60 - 3.40 L [facility] Monocytes [#/volume] in Blood by Automated count 0.27 10^3/uL 0.00 - 0.90 [facility] Eosinophils [#/volume] in Blood by Automated count 0.07 10^3/uL 0.00 - 0.70 [facility] Basophils [#/volume] in Blood by Automated count 0.02 10^3/uL 0.00 - 0.20 [facility] #IG 0.01 10^3/uL 0.00 - 0.10 [facility] #NRBC 0.00 10^3/uL 0.00 - 0.00 [facility] MANUAL DIFF NOT INDICATED [facility] RBC MORPH NOT INDICATED [facility] spital ID Date Data Source [id number] 03/07/2020 08:40:00 AM [facility] Name Value Range Interpretation Code Description Data Miladys rce(s) Supporting Document(s) Magnesium [Mass/volume] in Serum or Plasma 1.1 MG/DL 1.7 - 2.2 L [facility] ID Date Data Source [id number] 03/07/2020 08:40:00 AM [facility] Name Value Range Interpretation Code Description Data Miladys rce(s) Supporting Document(s) COMPREHENSIVE METABOLIC PANEL [facility] COMPREHENSIVE METABOLIC PANEL Sodium [Moles/volume] in Serum or Plasma 139 mEq/L 134 - 153 [facility] Potassium [Moles/volume] in Serum or Plasma 3.4 mEq/L 3.6 - 5.0 L [facility] Chloride [Moles/volume] in Serum or Plasma 107 mEq/L 98 - 107 [facility] Carbon dioxide, total [Moles/volume] in Serum or Plasma 26 MEQ/L 22 - 30 [facility] Glucose [Mass/volume] in Serum or Plasma 91 MG/DL 65 - 110 [facility] BUN 5 MG/DL 7 - 21 L [facility] al Creatinine [Mass/volume] in Serum or Plasma 0.5 MG/DL 0.7 - 1.5 L [facility] BUN/CREAT 10 8 - 27 [facility] Protein [Mass/volume] in Serum or Plasma 4.7 G/DL 6.3 - 8.2 L [facility] Albumin [Mass/volume] in Serum or Plasma 3.0 G/DL 3.9 - 5.0 L [facility] Globulin [Mass/volume] in Serum by calculation 1.7 GM/DL 2.4 - 3.2 L [facility] A/G RATIO 1.8 0.8 - 2.0 [facility] Calcium [Mass/volume] in Serum or Plasma 8.0 MG/DL 8.4 - 10.2 L [facility] Bilirubin.total [Mass/volume] in Serum or Plasma <0.7 MG/DL 0.2 - 1.3 [facility] Alkaline phosphatase [Enzymatic activity/volume] in Serum or Plasma 69 U/L 38 - 126 [facility] Aspartate aminotransferase [Enzymatic activity/volume] in Se rum or Plasma 8 U/L 5 - 40 [facility] Alanine aminotransferase [Enzymatic activity/volume] in Seru m or Plasma 6 U/L 7 - 56 L [facility] Anion gap 3 in Serum or Plasma 6.0 mmol/L 8.0 - 16.0 L [facility] AGE 64 yrs [facility] al NON-AA GFR >60 mL/min [facility] ital AFR AMER GFR >60 [place] [...] >32 mL/min Normal ID Date Data Source [id number] 03/11/2020 06:20:00 AM [facility] Name Value Range Interpretation Code Description Data Miladys rce(s) Supporting Document(s) Clostridium difficile toxin A+B [Presence] in Stool by Immun oassay Negative Negative [facility] ID Date Data Source [id number] 03/10/2020 06:12:00 AM [facility] Name Value Range Interpretation Code Description Data Miladys rce(s) Supporting Document(s) WBC STOOL [facility] _WBC STOOL_$$[id number]$$[id number]$$[id number] $$[id number]$$[id number] DATE/TIME: 03/09/2020 18:05Culture: WBC STOOL Status: FinalWhite Blood Cells (WBC), Stool: P1No white blood cells seen.Reference Range: None SeenP1 Test performed by: [facility] #: [id number] [address] [place] [address] [id number] [facility] [id number] Director : Hira Cole MD NPI #:Demo Event Specialist : 03/[email or web address].XMT.[email or web address] REF ID Date Data Source [id number] 03/06/2020 07:44:00 AM [facility] Value Range Interpretation Code Description Data Miladys rce(s) Supporting Document(s) Magnesium [Mass/volume] in Serum or Plasma 1.4 MG/DL 1.7 - 2.2 L [facility] ID Date Data Source [id number] 03/06/2020 07:44:00 AM [facility] Value Range Interpretation Code Description Data Miladys rce(s) Supporting Document(s) COMPREHENSIVE METABOLIC PANEL [facility] COMPREHENSIVE METABOLIC PANEL Sodium [Moles/volume] in Serum or Plasma 141 mEq/L 134 - 153 [facility] Potassium [Moles/volume] in Serum or Plasma 3.8 mEq/L 3.6 - 5.0 [facility] Chloride [Moles/volume] in Serum or Plasma 108 mEq/L 98 - 107 H [facility] Carbon dioxide, total [Moles/volume] in Serum or Plasma 27 MEQ/L 22 - 30 [facility] Glucose [Mass/volume] in Serum or Plasma 114 MG/DL 65 - 110 H [facility] BUN 9 MG/DL 7 - 21 [facility] Creatinine [Mass/volume] in Serum or Plasma 0.6 MG/DL 0.7 - 1.5 L [facility] BUN/CREAT 15 8 - 27 [facility] Protein [Mass/volume] in Serum or Plasma 5.3 G/DL 6.3 - 8.2 L [facility] Albumin [Mass/volume] in Serum or Plasma 3.5 G/DL 3.9 - 5.0 L [facility] Globulin [Mass/volume] in Serum by calculation 1.8 GM/DL 2.4 - 3.2 L [facility] A/G RATIO 1.9 0.8 - 2.0 [facility] Calcium [Mass/volume] in Serum or Plasma 8.6 MG/DL 8.4 - 10.2 [facility] Bilirubin.total [Mass/volume] in Serum or Plasma <0.7 MG/DL 0.2 - 1.3 [facility] Alkaline phosphatase [Enzymatic activity/volume] in Serum or Plasma 80 U/L 38 - 126 [facility] Aspartate aminotransferase [Enzymatic activity/volume] in Se rum or Plasma 8 U/L 5 - 40 [facility] Alanine aminotransferase [Enzymatic activity/volume] in Seru m or Plasma 8 U/L 7 - 56 [facility] Anion gap 3 in Serum or Plasma 6.0 mmol/L 8.0 - 16.0 L [facility] AGE 64 yrs [facility] NON-AA GFR >60 mL/min [facility] ital AFR AMER GFR >60 [place] [...] >32 mL/min Normal ID Date Data Source [id number] 03/06/2020 07:33:00 AM EST [facility] Name Value Range Interpretation Code Description Data Miladys rce(s) Supporting Document(s) CBC W/AUTOMATED DIFF [facility] COMPLETE BLOOD COUNT Leukocytes [#/volume] in Blood by Automated count 2.7 10^3/uL 4.2 - 1 1.0 L [facility] Erythrocytes [#/volume] in Blood by Automated count 2.68 10^6/uL 4. 20 - 5.40 L [facility] Hemoglobin [Mass/volume] in Blood 8.8 g/dL 12.0 - 16.0 L [facility] Hematocrit [Volume Fraction] of Blood by Automated count 26.9 % 3 7.0 - 47.0 L [facility] Erythrocyte mean corpuscular volume [Entitic volume] b y Automated count 100.4 fL 81.0 - 101 [facility] Erythrocyte mean corpuscular hemoglobin [Entitic mass] by Automated count 32.8 pg 27.0 - 34.0 [facility] Erythrocyte mean corpuscular hemoglobin concentration [Mass/volume] by Automated count 32.7 g/dL 31.0 - 36.0 [facility] Erythrocyte distribution width [Ratio] by Automated count 18.1 % 11.5 - 14.5 H [facility] Platelets [#/volume] in Blood by Automated count 96 10^3/uL 150 - 450 L [facility] Platelet mean volume [Entitic volume] in Blood by Automated count 10.5 fL 7.4 - 10.4 H [facility] Neutrophils/100 leukocytes in Blood by Automated count 67.5 % 37. 0 - 80.0 [facility] Lymphocytes/100 leukocytes in Blood by Manual count 18.1 % 25.0 - 40.0 L [facility] Monocytes/100 leukocytes in Blood by Automated count 10.0 % 3.0 - 8.0 H [facility] Eosinophils/100 leukocytes in Blood by Automated count 2.2 % 0.0 - 7.0 [facility] Basophils/100 leukocytes in Blood by Automated count 1.5 % 0.0 - 2.5 [facility] %IG 0.7 % 0.0 - 0.0 H [facility] %NRBC 0.0 % 0.0 - 0.0 [facility] Neut[facility] [#/volume] in Blood by Automated count 1.82 10^3/uL 2.00 - 6.90 L [facility] Lymphocytes [#/volume] in Blood by Automated count 0.49 10^3/uL 0.60 - 3.40 L [facility] Monocytes [#/volume] in Blood by Automated count 0.27 10^3/uL 0.00 - 0.90 [facility] Eosinophils [#/volume] in Blood by Automated count 0.06 10^3/uL 0.00 - 0.70 [facility] Basophils [#/volume] in Blood by Automated count 0.04 10^3/uL 0.00 - 0.20 [facility] #IG 0.02 10^3/uL 0.00 - 0.10 [facility] #NRBC 0.00 10^3/uL 0.00 - 0.00 [facility] MANUAL DIFF NOT INDICATED [facility] RBC MORPH NOT INDICATED [facility] spital ID Date Data Source [id number] 03/10/2020 09:30:00 AM EST [facility] Name Value Range Interpretation Code Description Data Miladys rce(s) Supporting Document(s) CULTURE STOOL [facility] spital _CULTURE STOOL_$$[id number]$$[id number]$$[id number]$$[id number]$$[id number]$$[id number]$$[id number]$$[id number]$$[id number]$$ [id number]$$[id number]$$[id number]$$[id number] DATE/TIME: 03/10/2020 07:06Culture: CULTURE STOOL Status: FinalSalmonella/Shigella Screen: P1No Salmonella or Shigella recovered.NO COLIFORMS ISOLATED Previous result entered on 03/08/2020 12:28 ET Microbiological testing to rule out the presence of possible pathogensis in progress.Campylobacter Culture: P1No Campylobacter species isolated. -- Continued on next page --Patient: GAMA Nobles Order: [id number] Page 2Culture: CULTURE STOOL Status: Final ====E coli Shiga Toxin EIA: [id number] Range: NegativeP1 [facility] performed by: [facility] #: [id number] [address] [place] [address] Avenue [id number] [facility] [id number]Medical Director : Hira Cole MD NPI #:Demo Event Specialist : 03/09/20.0723.XMT.SENT REF 03/09/20.1434.XMT.SENT REF 03/10/20.0930.XMT.SENT REF ID Date Data Source [id number] 03/05/2020 10:21:00 AM [facility] Name Value Range Interpretation Code Description Data Miladys rce(s) Supporting Document(s) Lactate [Moles/volume] in Serum or Plasma 1.9 MMOL/L 0.2 - 2.2 [facility] ID Date Data Source [id number] 03/05/2020 09:13:00 [place] [address] PHONE: [phone] FAX: [phone] Name .................. : GAMA Nobles Acct Number.................. : [id number] ROOM. ................. : 103-1 Number ................... : [id number] Stay type ............. : O/P Discharge Date......... ... : Admit Date ......... : 03/04/20 Admit Phys .................... : DANIKA-LAWRENCE Date of ....... : 1955 Family Phys ................... : NON STAFF Phone .................. : [phone] Age ................................ : 64 Film# .................. .:[id number] Sex ................................. : F Unsigned transcriptions are preliminary reports and do not represent a medical or legal document ABDOMEN 1 VIEW [id number] COMPLETE:03/04/20 14:04 ARS 792 Reason(s): n/v/d r/o [...] MD , 03/05/20 09:13, KGG Transcribe Initials: IDANIA , Transcribe Date: 03/05/20 00:38, Dictation Date: Copy for: EMERGENCY DEPT via [facility] Copy for: 710 MED REC Page 1 of 1 Name Value Range Interpretation Code Description Data Miladys rce(s) Supporting Document(s) ID Date Data Source [id number] 03/05/2020 08:08:00 AM EST [facility] Name Value Range Interpretation Code Description Data Miladys rce(s) Supporting Document(s) CBC W/AUTOMATED DIFF [facility] COMPLETE BLOOD COUNT Leukocytes [#/volume] in Blood by Automated count 2.3 10^3/uL 4.2 - 1 1.0 L [facility] Erythrocytes [#/volume] in Blood by Automated count 2.70 10^6/uL 4. 20 - 5.40 L [facility] Hemoglobin [Mass/volume] in Blood 9.1 g/dL 12.0 - 16.0 L [facility] Hematocrit [Volume Fraction] of Blood by Automated count 27.1 % 3 7.0 - 47.0 L [facility] Erythrocyte mean corpuscular volume [Entitic volume] b y Automated count 100.4 fL 81.0 - 101 [facility] Erythrocyte mean corpuscular hemoglobin [Entitic mass] by Automated count 33.7 pg 27.0 - 34.0 [facility] Erythrocyte mean corpuscular hemoglobin concentration [Mass/volume] by Automated count 33.6 g/dL 31.0 - 36.0 [facility] Erythrocyte distribution width [Ratio] by Automated count 18.0 % 11.5 - 14.5 H [facility] Platelets [#/volume] in Blood by Automated count 92 10^3/uL 150 - 450 L [facility] Platelet mean volume [Entitic volume] in Blood by Automated count 10.7 fL 7.4 - 10.4 H [facility] Neutrophils/100 leukocytes in Blood by Automated count 60.3 % 37. 0 - 80.0 [facility] Lymphocytes/100 leukocytes in Blood by Manual count 20.3 % 25.0 - 40.0 L [facility] Monocytes/100 leukocytes in Blood by Automated count 16.0 % 3.0 - 8.0 H [facility] Eosinophils/100 leukocytes in Blood by Automated count 1.3 % 0.0 - 7.0 [facility] Basophils/100 leukocytes in Blood by Automated count 1.7 % 0.0 - 2.5 [facility] %IG 0.4 % 0.0 - 0.0 [facility] 0.0 % 0.0 - 0.0 [facility] al Neutrophils [#/volume] in Blood by Automated count 1.39 10^3/uL 2.00 - 6.90 L [facility] Lymphocytes [#/volume] in Blood by Automated count 0.47 10^3/uL 0.60 - 3.40 L [facility] Monocytes [#/volume] in Blood by Automated count 0.37 10^3/uL 0.00 - 0.90 [facility] Eosinophils [#/volume] in Blood by Automated count 0.03 10^3/uL 0.00 - 0.70 [facility] Basophils [#/volume] in Blood by Automated count 0.04 10^3/uL 0.00 - 0.20 [facility] #IG 0.01 10^3/uL 0.00 - 0.10 [facility] #NRBC 0.00 10^3/uL 0.00 - 0.00 [facility] MANUAL DIFF SEE BELOW [facility] ital Segmented neutrophils/100 leukocytes in Blood by Manual count 65 % 37 - 80 [facility] %LYMPH 23 % 25 - 40 L [facility] %MONO 11 % 3 - 8 H [facility] %EOS 1 % 0 - 7 [facility] RBC MORPH SEE BELOW [facility] Anisocytosis [Presence] in Blood by Light microscopy 1+ NATASHA L: NONE SEEN A [facility] Macrocytes [Presence] in Blood by Light microscopy 1+ NORMAL: NONE SEEN A [facility] Poikilocytosis [Presence] in Blood by Light microscopy 1+ NOR MAL: NONE SEEN A [facility] { SICKLE CELL (NORMAL: NONE SEEN ) Platelet adequacy [Presence] in Blood by Light microscopy DE CREASED NORMAL: NORMAL A [facility] COMMENT: ID Date Data Source [id number] 03/05/2020 07:47:00 AM [facility] Name Value Range Interpretation Code Description Data Miladys rce(s) Supporting Document(s) Phosphate [Mass/volume] in Serum or Plasma 3.6 MG/DL 2.5 - 4.5 [facility] ID Date Data Source [id number] 03/05/2020 07:47:00 AM [facility] Name Value Range Interpretation Code Description Data Miladys rce(s) Supporting Document(s) Magnesium [Mass/volume] in Serum or Plasma 1.6 MG/DL 1.7 - 2.2 L [facility] ID Date Data Source [id number] 03/05/2020 07:47:00 AM [facility] Name Value Range Interpretation Code Description Data Miladys rce(s) Supporting Document(s) COMPREHENSIVE METABOLIC PANEL [facility] COMPREHENSIVE METABOLIC PANEL Sodium [Moles/volume] in Serum or Plasma 144 mEq/L 134 - 153 [facility] Potassium [Moles/volume] in Serum or Plasma 3.3 mEq/L 3.6 - 5.0 L [facility] Chloride [Moles/volume] in Serum or Plasma 106 mEq/L 98 - 107 [facility] Carbon dioxide, total [Moles/volume] in Serum or Plasma 29 MEQ/L 22 - 30 [facility] Glucose [Mass/volume] in Serum or Plasma 110 MG/DL 65 - 110 [facility] BUN 17 MG/DL 7 - 21 [facility] Creatinine [Mass/volume] in Serum or Plasma 0.8 MG/DL 0.7 - 1.5 [facility] BUN/CREAT 21 8 - [facility] al Protein [Mass/volume] in Serum or Plasma 5.3 G/DL 6.3 - 8.2 L [facility] Albumin [Mass/volume] in Serum or Plasma 3.5 G/DL 3.9 - 5.0 L [facility] Globulin [Mass/volume] in Serum by calculation 1.8 GM/DL 2.4 - 3.2 L [facility] A/G RATIO 1.9 0.8 - 2.0 [facility] al Calcium [Mass/volume] in Serum or Plasma 8.5 MG/DL 8.4 - 10.2 [facility] Bilirubin.total [Mass/volume] in Serum or Plasma <0.7 MG/DL 0.2 - 1.3 [facility] Alkaline phosphatase [Enzymatic activity/volume] in Serum or Plasma 73 U/L 38 - 126 [facility] Aspartate aminotransferase [Enzymatic activity/volume] in Se rum or Plasma 8 U/L 5 - 40 [facility] Alanine aminotransferase [Enzymatic activity/volume] in Seru m or Plasma 8 U/L 7 - 56 [facility] Anion gap 3 in Serum or Plasma 9.0 mmol/L 8.0 - 16.0 [facility] AGE 64 yrs [facility] al NON-AA GFR >60 mL/min [facility] ital AFR AMER GFR >60 [place] [...] >32 mL/min Normal ID Date Data Source [id number] 03/05/2020 02:48:00 AM EST [facility] Name Value Range Interpretation Code Description Data Miladys rce(s) Supporting Document(s) BASIC METABOLIC PANEL [facility] BASIC METABOLIC PANEL Sodium [Moles/volume] in Serum or Plasma 140 mEq/L 134 - 153 [facility] Potassium [Moles/volume] in Serum or Plasma 3.4 mEq/L 3.6 - 5.0 L [facility] Chloride [Moles/volume] in Serum or Plasma 102 mEq/L 98 - 107 [facility] Carbon dioxide, total [Moles/volume] in Serum or Plasma 28 MEQ/L 22 - 30 [facility] Glucose [Mass/volume] in Serum or Plasma 136 MG/DL 65 - 110 H [facility] BUN 20 MG/DL 7 - 21 [facility] al Creatinine [Mass/volume] in Serum or Plasma 0.8 MG/DL 0.7 - 1.5 [facility] BUN/CREAT 25 8 - 27 [facility] al Calcium [Mass/volume] in Serum or Plasma 8.7 MG/DL 8.4 - 10.2 [facility] Anion gap 3 in Serum or Plasma 10.0 mmol/L 8.0 - 16.0 [facility] AGE 64 yrs [facility] al AFR AMER GFR >60 [facility] NON-AA GFR >60 mL/min [facility] ital Male GFR Inter prentation 20-49 [...] >32 mL/min Normal ID Date Data Source [id number] 03/05/2020 02:41:00 AM EST [facility] Name Value Range Interpretation Code Description Data Miladys rce(s) Supporting Document(s) Magnesium [Mass/volume] in Serum or Plasma 1.7 MG/DL 1.7 - 2.2 [facility] ID Date Data Source [id number] 03/04/2020 08:14:00 PM EST [facility] Name Value Range Interpretation Code Description Data Miladys rce(s) Supporting Document(s) URINALYSIS [facility] sumeet URINALYSIS SOURCE R [facility] al COLOR yellow NORMAL: Yellow [facility] CLARITY hazy NORMAL: Clear [facility] Specific gravity of Urine by Test strip 1.020 1.001 - 1.030 [facility] pH 5 5 - 9 [facility] Glucose [Mass/volume] in Urine by Test strip NORM NORMAL: Negat sergey [facility] Bilirubin.total [Presence] in Urine by Test strip NEG NORMAL: Negative [facility] Ketones [Presence] in Urine by Test strip NEG NORMAL: Negative [facility] Protein [Mass/volume] in Urine by Test strip 15 NORMAL: Negat sergey [facility] Nitrite [Presence] in Urine by Test strip NEG NORMAL: Negative [facility] BLOOD NEG NORMAL: Negative [facility] [facility] Leukocyte esterase [Presence] in Urine by Test strip NEG NATASHA L: Negative [facility] Urobilinogen [Mass/volume] in Urine by Test strip NOR less lori n 1.0 mg/dL [facility] MICROSCOPIC Not Indicate [facility] H ospital ID Date Data Source [id number] 03/04/2020 12:24:00 PM EST [facility] 1 OrderSheet [facility] Emergency Department [address] [place] [address] Phone #: ext- [phone] 03/04/2020 11:58 Patient: JEREMI MALLOY Sex: F : 1955 Age: 64yWEIGHT:83.2 kg (S) HEIGHT:64 inches (S) BMI:31.5ALLERGIES: Amitriptyline, Carisoprodol, Codeine, Doxycycline, FLUOCINOLONE, Gabapentin, Keppra,Metformin , NSAIDs, OCYCODONE, PredniSONE, Quinolones, Spironolactone, TylenolCHIEF COMPLAINT: diarrheaDIAGNOSIS: Diarrhea, O/E - dehydrated, HypomagnesemiaLAB OR DERSOrder Description Priority Entered Acknowledged InitialedCBC w Diff STAT 12:03/04/2020 12:18 Natasha Mcgowan MD; Rachid RNCMP STAT 12:03/04/2020 12:18 Natasha Mcgowan MD; Rachid RNLactic Acid STAT 12:03/04/2020 12:18 Natasha Mcgowan MD; Rachid RNLDH STAT 12:04 03/04/2020 12:18 Natasha Mcgowan MD; Rachid RNLipase STAT 12:04 03/04/2020 12:18 Natasha Mcgowan MD; Rachid RNUrinalysis (Clean STAT 12:04 03/04/2020 18:40 HankCatch) Natasha Montero MD; Rachid RNMagnesium STAT 13:22 03/04/2020 13:48 Natasha Mcgowan MD; Rachid RNPhosphorus STAT 13:22 03/04/2020 13:48 Natasha Mcgowan MD; Rachid RNStool WBCS STAT 13:25 03/04/2020 18:28 Natasha Mcgowan MD; Rachid RNCulture, Stool STAT 13:25 03/04/2020 18:28 Natasha Mcgowan MD; Rachid RNCORONAVIRUS STAT 16:37 03/04/2020 16:43 Mcneil,COVID-19 Natasha Montero MD; Lisa(UnknownSymptomatic asDefined by CDC)(03/04/2020) (FirstTest) (NotHospitalized) (Not) (NotResident in 2 OrderSheet [facility] Emergency Department [address] [place] [address] Phone #: ext- [phone] 03/04/2020 11:58 Patient: JEREMI MALLOY Sex: F : 1955 Age: 64yCongregate CareSetting) (NotEmployed inHealthcare Setting)Clostridium Difficile STAT 17:11 03/04/2020 18:28 Natasha Shin MD; Rachid RNDIAGNOSTIC STUDY ORDERSOrder Description Priority Entered Acknowledged InitialedAbdomen Multiview STAT 12:04 03/04/2020 Cancelled: Physician Order 12:54(Oxygen?(No)) Natasha Montero MD; [place], Anna R.N. Reason for Study: Abdominal PainAbdomen 1 [...] rce(s) Supporting Document(s) ID Date Data Source [id number] 03/04/2020 12:24:00 PM EST [facility] 1 Medication Reconciliation Report [facility] Emergency Department [address] [place] [address] Phone #: ext- [phone] 03/04/2020 11:58 Patient: [...] a day, prn 2 Medication Reconciliation Report [facility] Emergency Department [address] [place] [address] Phone #: ext- [phone] 03/04/2020 11:58 Patient: [...] rce(s) Supporting Document(s) ID Date Data Source [id number] 03/04/2020 12:24:00 PM EST [facility] 1 Medication Administration Record [facility] Emergency Department [address] [place] [address] Phone #: ext- [phone] 03/04/2020 11:58 Patient: JEREMI MALLOY Sex: F : 1955 Age: 64yWeight: 83.2 kgHeight/Length: 64 inBMI: 31.5ALLERGIES: Quinolones, FLUOCINOLONE, Doxycycline, Tylenol, Spironolactone, PredniSONE, OCYCODONE, Metformin ,Keppra, Gabapentin, Codeine, Carisoprodol, Amitriptyline, NSAIDs Date/Time Medication Administered Medication OrderedStart NS [IV] IV NS 500 mL Bolus : Bolus 37971:45 03/04/2020 Dose: IV Fluids mL (X1)Hank Rashid RN Rate: 100 mL/hr over 5 hour(s)---- Bolus: 500 mL over 15 minute(s)Stop Dispensed: 1000 mL bag17:22 03/04/2020 Site: #2 right Isaías Rashid RNGiven POTASSIUM CHLORIDE LIQUID PO Potassium Chloride Liquid PO 4016:44 03/04/2020 Dose: 40 meq Oral Suspension PO meq (NOW x1)Lisa Mcneil,Start MAGNESIUM SULFATE [IV DRIP] Magnesium Sulfate 2 g IVPB X117:23 03/04/2020 Dose: 2 gm Drip IV dose: 2 gm (HIGH Juliann Rashid RN Rate: 50 mL/hr over 1 hour(s) MEDICATION, X1)---- Dispensed: 50 mL bagStop Site: #2 right AC18:23 03/04/2020Lias Mcneil, Name Value Range Interpretation Code Description Data Miladys rce(s) Supporting Document(s) ID Date Data Source [id number] 03/04/2020 12:24:00 PM EST [facility] 1 General Instructions [facility] Emergency Department [address] [place] [address] Phone #: ext- [phone] 03/04/2020 11:58 Patient: JEREMI MALLOY Sex: F : 1955 Age: 64yDiarrhea.Dehydration.Hypomagnesemia.(Electronically signed by Natasha Montero MD 03/04/2020 19:40) Name Value Range Interpretation Code Description Data Miladys rce(s) Supporting Document(s) ID Date Data Source [id number] 03/04/2020 12:24:00 PM EST [facility] 1 Clinical Report - Nurses [facility] Emergency Department [address] [place] [address] Phone #: ext- [phone] 03/04/2020 11:58 Patient: JEREMI MALLOY Sex: F : 1955 Age: 64yTRIAGE Arrived by EMS. Historian: patient. Acuity: LEVEL 3. Chief Complaint: NAUSEA, VOMITING and DIARRHEA. Alert. No acute distress. Onset. (5 days ago). ( PATIENT IS 3 WEEKS S/P STEM CELL TRANSPLANT AT [facility]. PT HAS LYMPHOMA AND STATES SHE RECEIVED HER OWN STEM CELLS. ONCOLOGIST CONTACTED TODAY WHO ADVISED ER VISIT. PATIENT C/O DIZZINESS AND LIGHTHEADEDNESS STARTING 2 DAYS AGO.). No constipation, abdominal pain or fever. Last oral intake by patient was this morning (0400). Treatment UNEMPLOYMENT CLAIMS ADJUDICATOR: None. (UNABLE TO KEEP HER MEDICATIONS DOWN). EMS Treatment UNEMPLOYMENT CLAIMS ADJUDICATOR: See EMS report. SEPSIS SCREEN: SEPSIS SCREEN [...] Ramos R.N. 2 Clinical Report - Nurses [facility] Emergency Department [address] [place] [address] Phone #: ext- [phone] 03/04/2020 11:58 Patient: [...] Ramos R.N.Amitriptyline. --12:08 03/04/20 Olga Ramos R.N.Carisoprodol. --12:08 03/04/20 Olga Ramos R.N.Codeine. --12:08 03/04/20 Olga Ramos R.N.Gabapentin. --12:03/04/20 Olga Ramos R.N.Keppra. --12:03/04/20 Olga Ramos R.N.Metformin . --12:03/04/20 Olga Ramos R.N.OCYCODONE. --12:03/04/20 Olga Ramos R.N.PredniSONE. --12:03/04/20 Olga Ramos R.N.Spironolactone. --12:10 03/04/20 Olga Ramos R.N.Tylenol. --12:10 03/04/20 Olga Ramos R.N.Doxycycline. --12:10 03/04/20 Olga Ramos R.N.FLUOCINOLONE. --12:10 03/04/20 Olga Ramos R.N.Quinolones. --12:10 03/04/20 Olga Ramos R.N.PROBLEMS:Hyperlipidemia.borderline DM.Htn.Malignant Lymphoma. --12:19 03/04/20 Olga Ramos R.N.Medication/allergy information source: the patient. --12:07 03/04/20 Olga Ramos R.N.ADDITIONAL SURGERIES:Cholecystectomy.Cyst removal from rt arm.Hysterectomy.PORT PLACEMENT WITH REMOVAL. --12:19 03/04/20 Olga Ramos R.N.HistoryPAST MEDICAL HX: Immunizations: up-to-date. [...] or Coronavirus. 3 Clinical Report - Nurses [facility] Emergency Department [address] [place] [address] Phone #: ext- [phone] 03/04/2020 11:58 Patient: [...] of bed on. Patient ready for evaluation. --12:19 03/04/20 Olga Ramos RArmenN. 12:03/04/2020 Site #1 started via IV in the right hand with an 20g angiocath, with aseptic technique and good blood return; one attempt. --12:03/04/20 Hank Rashid RN 12:41 03/04/2020 Site #1 removed (infiltrated). --12:41 03/04/20 Hank Rashid RN 4 Clinical Report - Nurses [facility] Emergency Department [address] [place] [address] Phone #: ext- [phone] 03/04 11:58 Patient: JEREMI MALLOY Sex: F : 1955 Age: 64y12:41 03/04/2020 Site #2 started via IV in the right antecubital space with an 20g angiocath, with aseptictechnique and good blood return; one attempt. Blood drawn: rainbow set and green tube(s). Labeled in thepresence of the patient and sent to the lab. Saline lock flushed with 10 mL saline. --12:41 03/04/20 HUMBERTO Ledesma12:45 03/04/2020 Started bag #1 1000 [...] for taking this medication. Verbalizesunderstanding. --12:45 03/04/20 Hank Rashid RN13:10 03/04/20. Patient returned from radiology by stretcher with mask and technical solutions consultant. --13: Hank Rashid RN13:15 03/04/20. BP: 127/93. MAP: 104. HR: 101. RR: 16. O2 saturation: 98%. Pain level now: 0/10.--13:15 03/04/20 Hank Rashid RN13:45 03/04/20. BP: 112/81. MAP: 91. HR: 96. RR: 18. O2 saturation: 96%. --15:44 03/04/20 Kev Morel ER Enaf126:15 03/04/20. BP: 128/77. MAP: 94. HR: 95. RR: 17. O2 saturation: 96%. --15:45 03/04/20 Kev Morel ER Nmub475:45 03/04/20. BP: 136/84. MAP: 101. HR: 98. RR: 17. O2 saturation: 95%. --15:45 03/04/[address] [facility] CenterKevENCOM[facility] Vdrk388:15 03/04/20. BP: 118/74. MAP: 88. HR: 99. RR: 17. O2 saturation: 95%. --15:46 03/04/[address] [facility] CenterMadhavKevENCOMPASS [facility] Fnbl619:44 03/04/2020 POTASSIUM CHLORIDE LIQUID PO PO Oral Suspension 40 meq given. Allergiesverified and confirmed 5 rights. Information reviewed with patient including reason for taking thismedication, signs of allergic reaction and precautions. Verbalizes understanding. --16:44 03/04/20PhLisa cameronTime-out completed immediately before the procedure. (swabbed for covid rapid test) --16:50 03/04/20Phelps, Wanda16:45 03/04/20. BP: 144/81. MAP: 102. O2 saturation: 97%. Pain level now: 0/10. --16:50 03/04/20Phelps, Wanda17:22 03/04/2020 IV Fluids NS via IV site #2 Discontinued: infused. Total amount infused: 990 mL. IVpatency established. IV site checked: no pain, redness, or swelling. IV flushed thoroughly. --17: Hank Rashid RN 5 Clinical Report - Nurses [facility] Emergency Department [address] [place] [address] Phone #: ext- [phone] 03/04/2020 11:58 Patient: JEREMI MALLOY Sex: F : 1955 Age: 64y 17:23 03/04/2020 Started 2 gm of Magnesium Sulfate Drip IV in bag #1 50 mL; at 50 mL/hr over 1 hour(s) via site #2. via IV pump. Allergies verified and confirmed 5 rights. IV patency established. IV site checked: no pain, redness, or swelling. IV flushed thoroughly pre- and post-medication administration. Information reviewed with patient including reason for taking this medication. Verbalizes understanding. --17:23 03/04/20 Hank Rashid RN 17:28 03/04/20. BP: 137/91. MAP: 106. HR: 88. RR: 18. O2 saturation: 96%. Pain level now: 0/10. --17:28 03/04/20 Hnak Rashid RN 18:21 03/04/20. BP: 140/87. MAP: 104. HR: 88. RR: 16. O2 saturation: 95%. Temp: 100 F. Pain level now: 0/10. --18:22 03/04/20 Lisa Mcneil 18:23 03/04/2020 Magnesium Sulfate Drip IV via IV site #2 Discontinued: bag #1 completed. Total amount infused: 50 ml mL. IV patency established. IV site checked: no pain, redness, or swelling. IV flushed thoroughly. --18:23 03/04/20 Lisa Mcneil.DISPOSITION / DISCHARGE 18:40 03/04/20. Departure time: 18:40 03/04/2020. Brooklynn Coma Scale: 15- eyes open- spontaneous (4); [...] Lisa Mcneil.Locked/Released at 03/04/2020 18:50 by Lisa Mcniel Name Value Range Interpretation Code Description Data Miladys rce(s) Supporting Document(s) ID Date Data Source [id number] 03/04/2020 12:24:00 PM EST [facility] 1 Clinical Report - Physicians/Mid Levels [facility] Emergency Department [address] [place] [address] Phone #: ext- [phone] 03/04/2020 11:58 Patient: [...] 3 WEEKS S/P STEM CELL TRANSPLANT AT [facility]. PT HAS LYMPHOMA AND STATES SHE [...] REMOVAL. 2 Clinical Report - Physicians/Mid Levels [facility] Emergency Department [address] [place] [address] Phone #: ext- [phone] 03/04/2020 11:58 Patient: [...] 102. O2 saturation: 97%. Pain level now: 010. 3 Clinical Report - Physicians/Mid Levels [facility] Emergency Department [address] [place] [address] Phone #: ext- [phone] 03/04/2020 11:58 Patient: JEREMI MALLOY Sex: F : 1955 Age: 64y105/05/2019 15:45 BP: 148/80. MAP: 102. HR: 98. [...] EKGLaboratory Tests:CORONAVIRUS COVID-19: (BERNADETTE: 03/04/2020 16:37) ( SoundFitcvd 03/04/2020 16:53) CanceledFirst test? Y Employed in [...] n/v/d r/o obstructionTRANSPORTATION: WC IV? Room: ED ED5CBC w Diff: (BERNADETTE: 03/04/2020 12:41) ( MsgRcvd 03/04/2020 13:21) Final results Test Result Flag Units (Reference) 4 Clinical Report - Physicians/Mid Levels [facility] Emergency Department [address] [place] [address] Phone #: ext- [phone] 03/04/2020 11:58 ------ [...] Male GFR Interprentation 20-49 yrs >60 mL/min Aatuia85-46 yrs >56 mL/min Normal 60-69 yrs >49 mL/min Normal 70-79yrs> 42 mL/min Normal 80 and above >35 mL/min Normal Female GFRInterpretation 20-39 yrs >60 mL/min Normal 40-49 yrs >58 mL/minNormal 50-59 yrs >51 mL/min Normal 60-69 yrs >45 mL/min Normal 5 Clinical Report - Physicians/Mid Levels [facility] Emergency Department [address] [place] [address] Phone #: ext- [phone] 03/04/2020 11:58 Patient: JEREMI MALLOY MRN: [id number] Sex: F : 1955 Age: 64y 70-79 yrs >39 mL/min Normal 80 and above > 32 mL/min Normal Lactic Acid: (BERNADETTE: 03/04/2020 12:41) ( MtgRcvd 03/04/2020 13:05) Final results Test Result Flag Units (Reference) LACTIC ACID 3.4 H MMOL/L (0.2 - 2.2) LDH: (BERNADETTE: 03/04/2020 12:41) ( MsgRcvd 03/04/2020 13:17) Final results Test Result Flag Units (Reference) LDH 304 H U/L (135 - 214) Lipase: (BERNADETTE: 03/04/2020 12:41) ( MsgRcvd 03/04/2020 13:17) Final results Test Result Flag Units (Reference) LIPASE 13 U/L (13 - 60) Abdomen Multiview: (BERNADETTE: 03/04/2020 12:23) ( MsgRcvd 03/04/2020 12:55) Canceled Reason(s): Abdominal Pain Reason(s): Abdominal Pain TRANSPORTATION: S IV? O2? Oxygen?(No) Room: ED.PROGRESS AND PROCEDURESCourse of Care: Pt is a 64 year old female who has multiple myeloma who had an autologous stem celltransfusion done in january at [facility]. She has done well. pt states that since monday jace had diarrhea. she states she did recently [...] called and spoke to her doctor at [facility]. She agreed with care plan.I called and spoke to Kavya. she agreed to admit. pt comfortable with the plan to admit here [facility]. Patient/family counseled. Disposition: Admitted to the Acute Inpatient Unit, Monitored. Condition: good and stable.CLINICAL IMPRESSION Diarrhea. Dehydration. Hypomagnesemia. 6 Clinical Report - Physicians/Mid Levels [facility] Emergency Department [address] [place] [address] Phone #: ext- [phone] 03/04/2020 11:58 Patient: JEREMI MALLOY Sex: F : 1955 Age: 64y(Electronically signed by Natasha Montero MD 03/04/2020 19:40) Name Value Range Interpretation Code Description Data Miladys rce(s) Supporting Document(s) ID Date Data Source [id number] 03/04/2020 12:24:00 PM [facility] Addenda for JEREMI MALLOY VisitID: [id number] Date: 17:32MED REC REQUEST FAXED TO [employer] WITH PATIENTS MED LISTS ANDT-SYSTEMS OVERVIEW @ [id number](Electronically signed by Moreno Pineda - 03/04/2020 17:32)03/04/2020 17:54OVERVIEW FAXED TO LONI AT 7651. LONI MALDONADO MADE AWARE(Electronically signed by Moreno Pineda - 03/04/2020 17:54) Name Value Range Interpretation Code Description Data Miladys rce(s) Supporting Document(s) ID Date Data Source [id number] 03/04/2020 04:52:00 PM EST [facility] Name Value Range Interpretation Code Description Data Miladys rce(s) Supporting Document(s) COVID-19 [facility] This lab was [facility] by [facility] ID Date Data Source [id number] 03/04/2020 04:52:00 PM EST [facility] Name Value Range Interpretation Code Description Data Miladys rce(s) Supporting Document(s) COVID-19 [facility] and reported by [facility]. ID Date Data Source [id number] 03/04/2020 05:26:00 PM [facility] Name Value Range Interpretation Code Description Data Miladys rce(s) Supporting Document(s) COVID-19 NOT DETECTED [facility] COVID-19 REENTER NOT DETECTED [facility] { PROCEDURAL CONTROL VALID KIT LOT [...] PATIENT MANAGEMENT DECISIONS. ID Date Data Source [id number] 03/04/2020 04:33:00 PM EST [facility] Name Value Range Interpretation Code Description Data Miladys rce(s) Supporting Document(s) Magnesium [Mass/volume] in Serum or Plasma 1.3 MG/DL 1.7 - 2.2 L [facility] ID Date Data Source [id number] 03/04/2020 01:54:00 PM [facility] Name Value Range Interpretation Code Description Data Miladys rce(s) Supporting Document(s) Phosphate [Mass/volume] in Serum or Plasma 4.0 MG/DL 2.5 - 4.5 [facility] ID Date Data Source [id number] 03/04/2020 01:20:00 PM EST [facility] Name Value Range Interpretation Code Description Data Miladys rce(s) Supporting Document(s) CBC W/AUTOMATED DIFF [facility] COMPLETE BLOOD COUNT Leukocytes [#/volume] in Blood by Automated count 4.4 10^3/uL 4.2 - 1 1.0 [facility] Erythrocytes [#/volume] in Blood by Automated count 3.27 10^6/uL 4. 20 - 5.40 L [facility] Hemoglobin [Mass/volume] in Blood 11.1 g/dL 12.0 - 16.0 L [facility] Hematocrit [Volume Fraction] of Blood by Automated count 32.0 % 3 7.0 - 47.0 L [facility] Erythrocyte mean corpuscular volume [Entitic volume] by Auto mated count 97.9 fL 81.0 - 101 [facility] Erythrocyte mean corpuscular hemoglobin [Entitic mass] by Automated count 33.9 pg 27.0 - 34.0 [facility] Erythrocyte mean corpuscular hemoglobin concentration [Mass/volume] by Automated count 34.7 g/dL 31.0 - 36.0 [facility] Erythrocyte distribution width [Ratio] by Automated count 18.0 % 11.5 - 14.5 H [facility] Platelets [#/volume] in Blood by Automated count 111 10^3/uL 150 - 45 0 L [facility] Platelet mean volume [Entitic volume] in Blood by Automated count 10.5 fL 7.4 - 10.4 H [facility] Neutrophils/100 leukocytes in Blood by Automated count 74.3 % 37. 0 - 80.0 [facility] Lymphocytes/100 leukocytes in Blood by Manual count 12.6 % 25.0 - 40.0 L [facility] Monocytes/100 leukocytes in Blood by Automated count 11.0 % 3.0 - 8.0 H [facility] Eosinophils/100 leukocytes in Blood by Automated count 0.7 % 0.0 - 7.0 [facility] Basophils/100 leukocytes in Blood by Automated count 0.7 % 0.0 - 2.5 [facility] %IG 0.7 % 0.0 - 0.0 [facility] %NRBC 0.0 % 0.0 - 0.0 [facility] al Neutrophils [#/volume] in Blood by Automated count 3.26 10^3/uL 2.00 - 6.90 [facility] Lymphocytes [#/volume] in Blood by Automated count 0.55 10^3/uL 0.60 - 3.40 L [facility] Monocytes [#/volume] in Blood by Automated count 0.48 10^3/uL 0.00 - 0.90 [facility] Eosinophils [#/volume] in Blood by Automated count 0.03 10^3/uL 0.00 - 0.70 [facility] Basophils [#/volume] in Blood by Automated count 0.03 10^3/uL 0.00 - 0.20 [facility] #IG 0.03 10^3/uL 0.00 - 0.10 [facility]spital #NRBC 0.00 10^3/uL 0.00 - 0.00 [facility] ospital MANUAL DIFF NOT INDICATED [facility] RBC MORPH NOT INDICATED [facility] spital ID Date Data Source [id number] 03/04/2020 01:17:00 PM [facility] Name Value Range Interpretation Code Description Data Miladys rce(s) Supporting Document(s) Lipase [Enzymatic activity/volume] in Serum or Plasma 13 U/L 13 - 60 [facility] ID Date Data Source [id number] 03/04/2020 01:17:00 PM [facility] Name Value Range Interpretation Code Description Data Miladys rce(s) Supporting Document(s) Lactate dehydrogenase [Enzymatic activity/volume] in Serum o r Plasma 304 U/L 135 - 214 H [facility] ID Date Data Source [id number] 03/04/2020 01:17:00 PM [facility] Name Value Range Interpretation Code Description Data Miladys rce(s) Supporting Document(s) COMPREHENSIVE METABOLIC PANEL [facility] COMPREHENSIVE METABOLIC PANEL Sodium [Moles/volume] in Serum or Plasma 142 mEq/L 134 - 153 [facility] Potassium [Moles/volume] in Serum or Plasma 3.0 mEq/L 3.6 - 5.0 L [facility] Chloride [Moles/volume] in Serum or Plasma 100 mEq/L 98 - 107 [facility] Carbon dioxide, total [Moles/volume] in Serum or Plasma 31 MEQ/L 22 - 30 H [facility] Glucose [Mass/volume] in Serum or Plasma 125 MG/DL 65 - 110 H [facility] BUN 20 MG/DL 7 - 21 [facility] al Creatinine [Mass/volume] in Serum or Plasma 0.9 MG/DL 0.7 - 1.5 [facility] BUN/CREAT 22 8 - 27 [facility] al Protein [Mass/volume] in Serum or Plasma 6.3 G/DL 6.3 - 8.2 [facility] Albumin [Mass/volume] in Serum or Plasma 4.0 G/DL 3.9 - 5.0 [facility] Globulin [Mass/volume] in Serum by calculation 2.3 GM/DL 2.4 - 3.2 L [facility] A/G RATIO 1.7 0.8 - 2.0 [facility] Calcium [Mass/volume] in Serum or Plasma 9.1 MG/DL 8.4 - 10.2 [facility] Bilirubin.total [Mass/volume] in Serum or Plasma 0.8 MG/DL 0.2 - 1.3 [facility] Alkaline phosphatase [Enzymatic activity/volume] in Serum or Plasma 87 U/L 38 - 126 [facility] Aspartate aminotransferase [Enzymatic activity/volume] in Se rum or Plasma 9 U/L 5 - 40 [facility] Alanine aminotransferase [Enzymatic activity/volume] in Seru m or Plasma 10 U/L 7 - 56 [facility] Anion gap 3 in Serum or Plasma 11.0 mmol/L 8.0 - 16.0 [facility] AGE 64 yrs [facility] al NON-AA GFR >60 mL/min [facility] ital AFR AMER GFR >60 [place] [...] >32 mL/min Normal ID Date Data Source [id number] 03/04/2020 01:04:00 PM EST [facility] Name Value Range Interpretation Code Description Data Miladys rce(s) Supporting Document(s) Lactate [Moles/volume] in Serum or Plasma 3.4 MMOL/L 0.2 - 2.2 H [facility] ID Date Data Source [id number] 01/29/2020 12:00:00 AM EST [facility] Name Value Range Interpretation Code Description Data Miladys rce(s) Supporting Document(s) SARS coronavirus 2 RNA panel N [id number] This lab was ordered by [facility] C1 TEST DELON TER and reported by [facility]. ID Date Data Source URINE CULTURE 12/23/2019 08:07:27 AM EDT eCW ([facility]) Name Value Range Interpretation Code Description Data Miladys rce(s) Supporting Document(s) URINE CULTURE eCW1 ([facility]) ID Date Data Source UA URINALYSIS 12/23/2019 08:07:21 AM EDT [facility] ([facility]) Name Value Range Interpretation Code Description Data Miladys rce(s) Supporting Document(s) UA URINALYSIS eCW1 ([facility]) ID Date Data Source [id number] 12/23/2019 08:07:15 AM EDT eC ([facility]) Name Value Range Interpretation Code Description Data Miladys rce(s) Supporting Document(s) Hemoglobin A1c/Hemoglobin.total in Blood 6.1 HEMOGLOBIN A1c eC ([facility]) ID Date Data Source [id number] 10/31/2019 05:05:00 PM EDT [facility] Name Value Range Interpretation Code Description Data Miladys rce(s) Supporting Document(s) Free Orosi Lt Chains,S 13.4 mg/L 3.3-19.4 [facility] Free Lambda Lt Chains,S 2.0 mg/L 5.7-26.3 Below low normal [facility] Orosi/Lambda Ratio,S 6.70 0.26-1.65 Above high normal L [facility] ID Date Data Source [id number] 10/14/2019 12:00:00 AM [facility] Name Value Range Interpretation Code Description Data Miladys rce(s) Supporting Document(s) SARS coronavirus 2 RNA panel N [id number] This lab was ordered by [facility] and reported by [facility] Central Laboratory. ID Date Data Source [id number] 10/04/2019 02:21:00 PM EDT [facility] ([facility], ) Name Value Range Interpretation Code Description Data Miladys rce(s) Supporting Document(s) [facility] pathology study [facility] [facility] ([facility], ) FINAL DIAGNOSIS A - Gastric biopsy: Gastric mucosa with regenerative changes, no acute inflammation or H. Pylori are identified. B - Colon polyps, polypectomy: Small fragments of colonic mucosa and abundant fecal matter. No adenoma or dysplasia is noted. 11/12/2019 - 843 CLINICAL DIAGNOSIS Abdominal pain and colon polyps. 11/05/2019 - 1315 GROSS DIAGNOSIS A - Received in formalin labelled gastric biopsy, are 3 fragments, 0.3-0.4cm. all in one. B - Received in formalin labelled snare colon polyps, is a 1 x1 x0.3 cm aggregate of tissue fragments and fecal matter, all in one. YZ 11/12/2019 - 44 Signed Meliza Landrum M.D. 11/12/2019 0847 ID Date Data Source [id number] 09/29/2019 09:20:00 AM EDT [facility] Name Value Range Interpretation Code Description Data Miladys rce(s) Supporting Document(s) SARS coronavirus 2 RNA [facility] This lab was ordered by [facility] and reported by [facility]. ID Date Data Source [id number] 09/21/2019 11:15:00 AM EDT [facility] Name Value Range Interpretation Code Description Data Miladys rce(s) Supporting Document(s) SARS coronavirus 2 RNA [facility] This lab was ordered by [facility] and reported by [facility]. ID Date Data Source [id number] 07/18/2019 09:44:52 AM EDT [facility] Name Value Range Interpretation Code Description Data Miladys rce(s) Supporting Document(s) Progress Note [facility] PBVLPy7wDtNRGnEv49/ATFttVQKvg0XxZAymZDc8KYpsIFXkD4NoBFB5rG2nKKX5SWcSRnFyTuPuBBE6 lbm [file] svyGBvPbf+yo+gK90cw45Rxgwj1iMdDt86Oguyp/4H5xhh39iHIcZvYZUF+talent development analyst/2SwQtbm+MNCnv7qWc [file] ID Date Data Source Immature Platelet Fraction 05/24/2019 12:00:00 AM EDT eCW1 ( [facility]) Name Value Range Interpretation Code Description Data Miladys rce(s) Supporting Document(s) 11.9 0.0-9.59 IMMATURE PLATELET FRACTIO N % eCW1 ([facility]) ID Date Data Source Comprehensive Metabolic Profile (CMP) 05/24/2019 12:00:00 AM EDT eCW1 ([facility]) Name Value Range Interpretation Code Description Data Miladys rce(s) Supporting Document(s) 15 7-18 BLOOD UREA NITROGEN eCW1 ([facility]) 68 70-100 GLUCOSE, FASTING eCW1 ([facility]) 0.96 0.55-1.30 CREATININE FOR GFR eCW1 ([facility]) 3.7 3.5-5.1 POTASSIUM SERUM eCW1 ([facility]) > 60.0 >45 GLOMERULAR FILTRATION RATE eCW 1 ([facility]) 142 136-145 SODIUM LEVEL eCW1 ([facility]) 8.7 8.8-10.2 CALCIUM LEVEL eCW1 ([facility]) 101 98-107 CHLORIDE LEVEL eCW1 ([facility]) 35 21-32 CARBON DIOXIDE LEVEL eCW1 ([facility]) 8 7-37 AST/SGOT eCW1 ([facility]) 8.6 6.4-8.2 TOTAL PROTEIN eCW1 ([facility]) 0.5 0.2-1.0 BILIRUBIN,TOTAL eCW1 ([facility]) 33 12-78 ALT/SGPT eCW1 ([facility]) 87 45-117 ALKALINE PHOSPHATASE eCW1 ([facility]) 3.4 3.2-5.2 ALBUMIN eCW1 ([facility]) 0.65 1.00-1.93 ALBUMIN/GLOBULIN RATIO eCW1 ([facility]) ID Date Data Source CBC with Differential 05/24/2019 12:00:00 AM EDT eCW1 ([facility]) Name Value Range Interpretation Code Description Data Miladys rce(s) Supporting Document(s) 5.5 4.0-10.0 WHITE BLOOD COUNT eCW1 ([facility]) 11.6 12.0-15.5 HEMOGLOBIN eCW1 ([facility]) 35.3 36.0-47.0 HEMATOCRIT eCW1 ([facility]) 3.47 4.00-5.40 RED BLOOD COUNT eCW1 ([facility]) 33.4 27.0-33.0 MEAN CORPUSCULAR HEMOGLOB IN eCW1 ([facility]) 101.7 80.0-96.0 MEAN CORPUSCULAR VOLUME e CW1 ([facility]) 15.6 11.5-14.5 RED CELL DISTRIBUTION WID TH eCW1 ([facility]) 32.9 32.0-36.5 MEAN CORPUSCULAR HGB CONC eCW1 ([facility]) 91 150-450 PLATELET COUNT, AUTOMATED eCW1 ([facility]) 71.0 36.0-66.0 NEUTROPHILS % eCW1 ([facility]) 21.0 24.0-44.0 LYMPH % eCW1 ([facility]) 5.7 0.0-5.0 MONO % eCW1 ([facility]) 1.3 0.0-3.0 EOS % eCW1 ([facility]) 0.5 0.0-1.0 BASO % eCW1 ([facility]) 3.9 1.5-8.5 NEUTROPHILS # eCW1 ([facility]) 1.2 1.5-5.0 LYMPH # eCW1 ([facility]) 0.3 0.0-0.8 MONO # eCW1 ([facility]) 0.1 0.0-0.5 EOS # eCW1 ([facility]) 0.0 0.0-0.2 BASO # eCW1 ([facility]) ID Date Data Source [id number] 04/24/2019 05:53:30 PM [facility] Name Value Range Interpretation Code Description Data Miladys rce(s) Supporting Document(s) Progress Note [facility] NIKWDa3dNaAMBsWn58/APNzgXKQpg5MeFVlcZWr2UKmlHBGnN0TpEXY7aZ2bUAB6TXeZDkDwPlLaGqPd lbm QmIapEPuAaNZZbVtdGRkDtIAvnAbofuGTcDV8SeIN5QNWyV22gJNHfJQLxN6SaPWJ2PwH+Vr6YUEGviH SsWG3WVunE9Y0xv1xCQF2r2B2lXYJTd2rmzas8ugFHbXpCtQiinbPb+1BmnJQVeplNcX3022lqQjgnlZ 4glQBaSS9eOU6Enmqn+8yQQhT/fhPbgWdZlpj/t/gz fSO2kNe//ELF7akLfD2OB1wV8RDaqGDYSYH20lctX/AkM9BKUNLNX56+roRHbN9m7bpWA7i8chE7oYk6 K38Ua13wYcTB1dvatzNi2FM91+pao0K5U+DtOv26dgrodsIBdzXsIrIi9QxyF4KCuOPyueuHOwK7c0Ox 75HqAce47wKuihnPkfjrpqA4bjEzaLfKi1i4hXsmy2 HrfWLNLedo1GLoqzOs9Wb7KbDq7FeWF9RupENJWQExlp5ollsogo+I1w1C3JWYQRADrAyN+vFodX41Rc d64M+AJ4HhIMP2Wl4rLaZrijBbgnN9i68NLoyxgSrjM9vvECBlzIaw0wxLNstHJdsMobEw++fvzDFTgi 4HyEaom6GQklI2qq8f66fVl+cFKyq91+ulycSgeZbg C6qU1y2j0Cr5wKxMNJgKpX29bbQ0G9c52ZN5IAtOdzPmgEJ/0+E/o6TNOvStZdvoKdX8hgoYqu6jpxQl InL5d9J/QexddIVvHIMf+ZbY3KHMwSiwuJlchkebNrK8BmBaWKri2b8SQn8VcMQMuq2ZSABLzNGpFrDp cSVqDMYjg+JsOL3cfRC8s53aeHyNyzbwEsbuW2f/ qYDzouIs85yQe7RB7S8b+NUKyXTzhWkM/BV1ZElyLJPnRr4tVxXtZIwm5uz2BX4iXqHGhqD4J1TLXP7N 88KH8qEv+wvTURgE7R9htfekB/cpZHozRhjNzExWiEM2wi9RfZ4HmDmuPaobvjjtkzd1e41T0OI2mFXo It0hTjKP9RZnxMAChMIMxkDWBWg8E30qU/RdN302Yk j4i8oOg4LefbpGZDGpkT+wd18A/BHUdfjbmoxz0K3zL2sRxoxiBVQa5X3K008IeCJ+uuDBgSMaYX7/Jh lFPbwVIRP1z2FNsT3FZDRQ+fkQ2BKIamjEghtAG6qqTQxAYxtzsMskQFdXW+ZgBdEEAGwtFJ3Lk922FM uJCOSi1mPzzUwIT+LukAPLcDjqsGiyE6wnPbxM8S2S eLHisqnPo25KlBNvkFnOzBQOyeLVHLlYmxVuTLZLIdkVfgPzaY2jk9p4YRX40WIACV7wAdRI51sNQMGr J80fj2sYztobTawtlp9dmii93I73IQgJySNbhvNIFC4KMaRqOmH3QNtZr2aRg+Cp3BnSRNyOAEiKwgHB fwPhF5k20c5uJ3540Z98Z75nam1VIKJw1Km6TgqxSg [file] pIiIag8utU7UD01MAG5/h5NWxg33bY+FgoFdieJz/++[place] [place]/zG1cNzYOMzHae/PryW0TKaYy8L3F6w8Fb [file] MDAwMDAxNyAwMDAwMCBuDQowMDAwMDcyODAzIDAwMD HgMB0TTsPbHNObOpT2GaeuCZVbXSTphk9JVSYsABAsJLD1LcZrYPLhIKAgTZteSRCuQAYwYsY0RWQdCS OlZL8CLdFrZHSaGZO1WaKnZZZdQJHtpo3ELQKcJOKvEsW3KNLpLAFzTLPaRWheAPTtIJE2PiW3BRJiOB MyJV9NZxEbVUOqHQFnTzRvDSBkGNFsig9STEUfBQMv LYA0NXHnBTKaWUPfWGntYYUcBFA3LWAgNJXiBNVaXN4KYjElCISdPQB8YTsbFPGfINYaii5RBTDkGYCi XmM7QMVxLQQdZZXaPTspVPNvSOM7CEgtCIGiVZBaIC3HSkNlWASbGUr6CCrfUHBxDJNgsx2CJIZtCYCz EEW6QtQwGCTaNTBrJNeeTCRbFOSyCMD0FVHlSABqLI 3QHaBfFVTcJcK0ObSqABVtOVJnmp6QVWNiPNAcPQskMNJaAPXnFHOeBPvgZSJhFMS9WCV7KEEfIJWjGJ 5JJwHsJTYsDad2UYuzUBJgZNNxjs0OHYEnWLBiVef7WjHvMBAwOWPlLOxzRHUlCUCwOjAvZOVeFBTgCI 9LJnMxYTNnFzL7WmzhRFAbFYKsze0KRCKmHTNkOath FaBsQJMwNBTfIWnlHZUvUOA5RDMnNCPeKEXuKX1VCbRyCSApDoA6JhzsWFDlBDOhhn0XYCOsHUDoPeh3 BJVrWHHeLVWpWZjbGKVoJVY3GlTyJMBrIKOjIA6RTxAqGMXbEed5KgrbTNJzKCMrkk0TQBOiQSB5UTt7 RDNnPDHzYMKiSEzpCXSwSIGcISj2LLTfNHBuIC7WYz ViALQzHVFaCIidXUBtYOEjuk8GGZMtFVQ8SUNhVZLpDPKhOETxDHtjUTLnJPH9DNt4NGZqDXOkXE8VWy LwRIYeKGpbVCYwNVQlBCUzto7GMYPzIPT3UTGiYkByWWWzHHMtYWfeCMLmDZM4XtDqXJRiKSNtJP7KPq JvBVDtMBQ6GlTuSUGuUBZgsc6HZMYzQWG1Tdp2CeKi IGYrBVYhDOvsRZUgMRS7HVseYLXeSDWzNZ6VDtCwELStPJH9ALkpCLKrFUTaeu4ZWGNkJPR8VwPlUsTb ONMlUZZeDPccKZSyHBW1MZGnVOJpPIFfCQ9CQiFmWGBlIMdkXWJvCVHgMFPejq9SUSQgFQM6BeT7KCBa TUSwXSEqTNonLKNcDLM2HdQaHFVyZPLzYZ5GFsZkEL KjPBu8GpZrFGIsYVVmcm3VJIZhVKM0BAidPyGkVEUfGVClUCjcFZRrKUK8UXQpGRPvNSXxRI6XUhEtDJ XgHqZ1RGMzLFKqELGgdm4DCSHbSWF5TUi0SpIlWTJkLDTnMZfsVDCjJXynLRv1FQMhFEJkZP6OWiTuKY XxXiSaVgQwWLGpMDVrux7DYMDrVTI5XBK7IKFbEZZp PZTiSHtcXUZpRFleBJY2DKPkVNWkSZ3HRsTrJONgNvX4BOHxYQWbNYRofn7MKOPlBBE3Zki0MGOgZCGf NKZyLUkeMJFkPVttBSk8HVWeSYInXL8DHhVdNABzDlG4DdtkASXcADHlug5VMJRtJJB8OClnJHNnXEOg RVKwUCjpMNSbQBk1GYx4DMIpGWIxHL9IIxGdCZzjFT GZYjc5ZWhiS9e1XSM6Bt2YT7Ozs4VvLaHkJMXCRUwbBE0zjeHgGDLfAj0TY9qSOvtpMGAlVlCpT2VpSJ GeAtrmZgOnFobsXTXxCMFpALWxBO7oZLI3HJFxHuCrZCKlSYJ2ZLTeFJWaGVO2V6JzKsBtICQ3XrWuHH 4NKr4FAiV3NEU4xYRaEe1CGoXwYmxPAgNuMI5HFDi= ID Date Data Source [id number] 03/21/2019 03:21:[address] [facility] Name Value Range Interpretation Code Description Data Miladys rce(s) Supporting Document(s) Flow cytometry study [facility] ID Date Data Source [id number] 03/22/2019 05:49:[address] [facility] Hematopathology Report See Addendum Rosy wName: JEREMI MALLOY MMRN: [id number] Number: [id number] Date: 03/20/2019 00:00Received Date: 03/21/2019 13:27Physician(s): MELIZA LANDRUM MD, YILIN MDCopy To:[facility]) ReceivedA: Bone Marrow, Flow Cytometry, received [...] Signed Out03/22/2019 InterpretationPERIPHERAL BLOOD: CBC performed at [facility] on 03/20/2019 WBC 5.8 K/uLRBC *3.82 M/uLHgb 12.5 g/dLHct 37.8 %MCV *99.0 fLMCH 32.7 pgMCHC 33.1 g/dLRDW 13.8 %Platelets *133 K/ulDifferential Count (100 cells): 2 % N. Band Forms55 % Ayarwekeeyv06 % Nisznbkrrfi23 % Large Granular Lymphocytes 4 % Monocytes-------100 % A peripheral blood film is reviewed. Rouleaux formation is increased.BONE MARROW ASPIRATE:Differential Count (100 cells):40 % Erythroid Precursors 1 % Blasts 3 % Promyelocytes 5 % N. Kedumnzznu53 % N. Metamyelocytes and Band Forms11 % Neutrophils 3 % Cuiaajuepal40 % Lymphocytes 1 % Monocytes 7 % Plasma Cells--------100 % Morphology: A single hypercellular particle is seen. No dysplasia ispresent. Megakaryocytes are normal. Some plasma cells appear immature withsmall nucleoli. Lymphoid Panel: [place] [id number] following markers were assayed: CD45 (gate), CD2, CD3, CD4, CD5, CD7,CD8, CD10, CD19, CD20, CD33, CD34, CD38, CD56, CD57, CD64, CD117, CD123,HLA-DR, Orosi, and Lambda.# events: [id number]: 92%Flow Cytometry Differential (CD45/SSC)Lymphocyte Macomb: 51%CD45 dim [place]: 1%Monocyte [place]omb: 2%Granulocyte Gat e: 35%Nucleated/Erythroid [place]omb: 3%The lymphocyte gate showsB-cells (CD19): 4%T- cells (CD3): 84%NK-cells (CD3-/CD56+): 9%Orosi/Lambda Ratio: 1.4CD4/CD8 Ratio: 2.7Results: (expressed as % of lymphocyte gate)T-cell Markers: CD2 = 90, CD3 = 84, CD3/CD4 = 62, CD3/CD8 = 26, CD5 = 84,CD7 = 83, CD3/57 = 21B-cell markers: Orosi = 2, Lambda = 1, CD19 = 4, CD20 = 4, CD19/10 = 0,CD19/CD5 = 0, CD38/CD20 = 3Light chain as % of B-Cells: CD19/Orosi = 50, CD19/Lambda = 38,CD19/CD5/Orosi = 1, CD19/CD5/Lambda = 0,CD19/CD10/Orosi = 3, CD19/CD10/Lambda = 3NK cell Markers: CD56 = 20, CD57 = 24Other Markers: CD10 = 0, CD38 = 53Results: (expressed as % of CD45 dim gate)T-cell Markers: CD2 = 20, CD3 = 14, CD3/CD4 = 11, CD3/CD8 = 5, CD5 = 27,CD7 = 21, CD3/57 = 2B-cell markers: Orosi = 6, Lambda = 3, CD19 = 3, CD20 = 3, CD19/10 = 2,CD19/CD5 = 0, CD38/CD20 = 3Light chain as % of B-Cells: CD19/Orosi = 25, CD19/Lambda = 8,CD19/CD10/Orosi = 0, CD19/CD10/Lambda = 0NK cell Markers: CD56 = 9, CD57 = 5Basophil Markers: CD123 (HLA-DR-) = 4Other Markers: CD10 = 12, CD38 = 67, CD33 = 24, CD34 = 23, CD64 = 3, CD117= 17, CD123 = 9, HLA-DR = 40Myeloma Panel for Gama Perry MM [id number] following markers were assayed: CD45 (cell gate), CD138 (plasma cellgate), CD19, CD20, CD38, CD56, cytoplasmic Orosi, and cytoplasmic Lambda.(Please note, that Cytoplasmic Orosi and Cytoplasmic Lambda are used todetect plasma cells, while surface Orosi and Lambda are for lymphocytes).# events: [id number] NOTE: Routinely a minimum of 500,000 events are collectedin each panel tube. Due to sample cellularity and/or processing thisnumber was not ac hievable for this sample.Viability: 90%Flow Cytometry Differential:Lymphocyte Macomb: 34%CD45 dim Macomb: 0%Monocyte Macomb: 4%Granulocyte Macomb: 55%NRBC [place]omb: 4%CD138 Plasma Cell [place]omb: 0.5%Results: (expressed as % of lymphocyte gate)B- Cells (CD19): 4%CD19 = 4, CD20 = 4Light chain as % of B-Cells: Cytoplasmic Orosi/CD20 = 48, CytoplasmicLambda/CD20 = 33Results: (expressed as % of total CD138+ plasma cell gate)CD38 = 99, CD56 = 98, CD38/56 = 98, CD19 = 3, CD20 = 73Cytoplasmic Orosi/CD138 = 90, Cytoplasmic Lambda/CD138 = 0 Results- [...] were developed and theirperformance characteristics determined by [facility] Pathology department.They have not been cleared or approved by the US Food and DrugAdministration. The FDA has determined that such clearance or approval isnot necessary. Name Value Range Interpretation Code Description Data Miladys rce(s) Supporting Document(s) ID Date Data Source [id number] 03/27/2019 03:24:[address] [facility] Cytogenetics ReportName: JEREMI MALLOY MM RN: [id number] Number: [id number] Date: 03/20/2019 00:00Received Date: 03/21/2019 13:59Physician(s): MELIZA LANDRUM MD, YILIN MDSpecimen(s) ReceivedA: Bone Marrow (Karyotype Analysis)Clinical HistoryLytic lesions, seronegative rheumatoid arthritis, recently treated forlatent TBTEST REQUESTED/PERFORMED: Karyotype Analysis and Fluorescence in situhybridization - FISH DiagnosisFISH RESULTS:[facility] Myeloma panel:nuc jeannine(CDKN2C,CKS1B)x2[97/100],(5p15.31,EGR1)x3[90/100],(P47G207,13q34)x2[95/100],( IgHx1)[91/100],(TP53x1,N08U1z7)[25/100],(TP 53x1,CD77hrvx0,M71O5s8)[17/100],(TP53,D17Z1)x1[10/100]CEP 7/C4E884 (7q31): nuc jeannine (D7Z1,B2S408)x2[98/100] CEP 9: nuc jeannine (D9Z1x3)[43/100],(D9Z1x4)[38/100] INTERPRETATION: Hyperdiploidy [...] ([id number]). Electronically Signed By Piper Wesley, Ph.D., [facility], Director ofCytogenetics 03/27/2019 15:24:33Gross DescriptionDATA:SPECIMEN TYPE: BONE MARROW (Karyotype Analysis) / ISOLATED PLASMA CELLS(FISH) CULTURE TYPE: 24 HOUR UNSTIMULATEDADDITIONAL CELLS EVALUATED FOR FISH: 700 ISCN NOMENCLATURE: nuc jeannine(CDKN2C,CKS1B)x2[97/100],(5p15.31,EGR1)x3[90/100],(D7Z1,U1E404)x2[98/100],(D9 Z1x3)[43/100],(D9Z1x4)[38/100],(H19T577,13q34)x2[95/100],(IgHx1)[91/100],(TP53x1 ,D17Z1 x2)[25/100],(TP53x1,UP48ubxk7,B18R1z2)[17/100],(TP53,D17Z1)x1[10/100]COMMENTS:Fl uorescence in situ hybridization (FISH) studies were performed toevaluate specifically for abnormalities of chromosomes 1, 5, 7, 9, 13, 14,and 17, which have been associated with multiple myeloma. The probes wereobtained from [employer] or [employer]. Hybridization wascarried out as per the stated [...] - 2 signals each locus CEP 7/LSI [id number] D7Z1/7q31 greenorange 100 98% - 2 signals each locus CEP 9 D9Z1 green 100 43% - 7txqhybj86% - 4 signals 19% - 2 signals J68P237 +control 13q14.213q34 spectrum orange/redspectrum green 100 95% [...] Name Value Range Interpretation Code Description Data [facility](s) Supporting Document(s) ID Date Data Source [id number] 03/11/2019 09:44:00 AM GENNARO BARCENAS ([facility], ) Name Value Range Interpretation Code Description Data [facility](s) Supporting Document(s) Surgical pathology study (SEE NOTE) SWAPNA ([facility], ) FINAL DIAGNOSIS Gastric antrum, biopsy: Gastric mucosa with mild chronic inflammation and reactive changes. No Helicobacter organisms identified. 03/14/2019 - 1059 CLINICAL DIAGNOSIS Reflux and hiatal hernia 03/11/2019 - 111 GROSS DIAGNOSIS Received in formalin labeled "biopsy antrum" are two pink fragment of mucosa measuring 0.2 cm each. All in one. -BP 03/11/2019 - 1111 Signed DEWAYNE CHAVEZ MD 03/14/2019 1121 ID Date Data Source [id number] 03/10/2019 01:04:55 PM EST [facility] Name Value Range Interpretation Code Description Data Miladys rce(s) Supporting Document(s) Progress Note [facility] VUEKFs8pElWVGwUj42/RNUwnNBShn7NhHHqnODx6JNlkAWTuY1RkRVQ2fM3pJOZ0YFgEKkWlDAkzZzE5 lbm [file] AgICAgICAgICAgICAgICAgICAgICAgICAgICAgICAg ICAgICAgICAgICAgICAgICAgICAgICAgICAgICAgICAgICAgICAgICAgDQogICAgICAgICAgICAgICAg ICAgICAgICAgICAgICAgICAgICAgICAgICAgICAgICAgICAgICAgICAgICAgICAgICAgICAgICAgICAg ICAgICAgICAgICAgICAgICAgICAgICAgDQogICAgIC AgICAgICAgICAgICAgICAgICAgICAgICAgICAgICAgICAgICAgICAgICAgICAgICAgICAgICAgICAgIC AgICAgICAgICAgICAgICAgICAgICAgICAgICAgICAgICAgDQogICAgICAgICAgICAgICAgICAgICAgIC AgICAgICAgICAgICAgICAgICAgICAgICAgICAgICAg ICAgICAgICAgICAgICAgICAgICAgICAgICAgICAgICAgICAgICAgICAgICAgDQogICAgICAgICAgICAg ICAgICAgICAgICAgICAgICAgICAgICAgICAgICAgICAgICAgICAgICAgICAgICAgICAgICAgICAgICAg ICAgICAgICAgICAgICAgICAgICAgICAgICAgDQogIC AgICAgICAgICAgICAgICAgICAgICAgICAgICAgICAgICAgICAgICAgICAgICAgICAgICAgICAgICAgIC AgICAgICAgICAgICAgICAgICAgICAgICAgICAgICAgICAgICAgDQogICAgICAgICAgICAgICAgICAgIC AgICAgICAgICAgICAgICAgICAgICAgICAgICAgICAg ICAgICAgICAgICAgICAgICAgICAgICAgICAgICAgICAgICAgICAgICAgICAgICAgDQogICAgICAgICAg ICAgICAgICAgICAgICAgICAgICAgICAgICAgICAgICAgICAgICAgICAgICAgICAgICAgICAgICAgICAg ICAgICAgICAgICAgICAgICAgICAgICAgICAgICAgDQ ogICAgICAgICAgICAgICAgICAgICAgICAgICAgICAgICAgICAgICAgICAgICAgICAgICAgICAgICAgIC AgICAgICAgICAgICAgICAgICAgICAgICAgICAgICAgICAgICAgICAgDQogICAgICAgICAgICAgICAgIC AgICAgICAgICAgICAgICAgICAgICAgICAgICAgICAg PIUjIQGkFLWqWZUpPQRoDJIuDJFtQMGxRRWuMQGdQRHwBWMlICCpAXVeXWLeUYOvVCLjKPk9O1syQSIk AMCuFX8dYZi4Yf6+SBgCLlNqAYM0oyMolM8SRJ1ho1CmDTtbLWJnu5ArAZz4KH7ZCZWtUTrcET5WLZus fv7GTAYxPXLcoTKWi6ecFuHoCQH0SQHhQaesVP4NKG MtI7furpEvGRBjLKVDROpoMDBPLIlaZPVNWMOhVSPtFnOzHeZgZGVcDLHsYYRKGLH7SLKeGmTgYLymBV 6Ht1DxePM5KHb+Nb9AGH3wg5FuBNudQLGvGY6cli0WAZgVXfKwF2VgqeF3REW9XPVfPk8XBWHoKAHeoI OkHAFmFYOZMjDaC5UhfW77XEPRGq7+DQplbmRvYmoN ZrG6MJRjz4BvGTt4DD1YBOZgZGg4gHLwTUFwC1Lrg8EiWx33IACrYibfN3xsjlodbgYvQNYXIW9maBvw UE1CYHL9GIUgWhQyFyPxJPvuNUE2MWVlUL6fDTkpIB4CZYQ7WFqjUPPkTBJqG7wQQuIdXZXoXAVubFro KG2JZoFwD2PyzfQafLSqGFOgLJQNJg3+DQplbmRvYm tDHsS2RWJhm5RtELg3GX4GOXGqYEgvMM9YABNzlN4gUBffXW0TIqQdCkKwGEYZCaEsG77isZSgOWd4G7 VtYmVkZGVkRmlsZXMgPDwvTmFtZXMgWyBdDQogID4+ID4+WMjtGG8GQQkxphSsCMLiJu8ZVTYqGEUtUZ 6nUBMyTVHnX7G3iWbrEYMAYiAtA9imykecWZ2fGKNz O617iSlonkZlKYZ0FBKjSf8KFUXsWNK1JUJphKLyEnRjHOEIORgsSU6WeDDmNLR3zE1uQAdnSMRkMPLv J3lCJwWjrAdbGY84zCzavkEwtBQoLOw+Dg6EKA0lv9AmVAb0wuChGFefOLO8ZEbbWQAtGAXkEMSlOTY7 COZ6NJPKQoUhITMqHKDtAGfvYKRlDATjjt6ESQQeVJ EsGKJ4QmQuRRHdKLNdBCauHLNoBOK5Nph1YODfRAMhKI3CFmZnWGWnDHGoXNppPSTyXQYnoi5XFXJlGG MnCfntFmGjIVRbWGUrPSayPTEeAIG9BIH6VZKgUQHcFW9UNiJqFZJjRSdvQnHpWLSaWJCcvs7HANXfBA GoZiF8QUVkEWPgVSQmPIdxKCLvKAVzOxswVWMoIXNx UC7JOaRlYXWzYSS3DkccJONzIGSvzk7BSQXuJWQlBkT2NWPqVMWdJSGoMMekJLTqTTYiHVAtXJSrEBKh QR1MZjInMEYvKYnyYxScOZWgNVVpnl4ODQCuDGJxEgQyKvYrUKIeEJKzNPsrRXSmUWP1EVR8PCYfHUCx MH3LEmZbEMHgGXe1JdWkRLLfUKGona7JGZUaKBRnOA L5PwMvOMOeIWQnCWouOBJaRZAkOxfxAICuFICwQK5UAnClKAUmBuS2MhRvAPAcSWFtby2SJPFiCWFoLr zsUKChSQYiTNEzPQluJHXzGLRlMZEsSJCkSNMqZB4NLeDqVEUsHeV4CvWsIGHrLUPtoz2IWCEySZEeYU X4DpMhMJOmQUQtGImaGHOxVEU3BhApWPMkXELrWU1A VvZcVTLgZaD4KVKzSYCuCIHvzt5ZMCMsXPGeCmDeNsIjDTClWQEnOVxbCXDtTAW4OlC0XUWxBDBrDI5D AwTsEWQjGwY9AdFtRTZfSZJtzr1OVJRgAGZsMrujREEtTFLeYCGiGHgyTRGmIVC9NdY0ILCfBAVnZR3D KdVvZLMjEzm3QZPuTPDlWHPevt4WWMMbGRBaRRVdFR DcJNUxTWQlLAegYOErAGO3UOL4HJFeDYCrUQ4ANpOzPNGcVuj7HqBeOAAvSWGcnr7CPBWpWHHfZLh9Ln QuKXXoYNHtAIvmXTFtRNJqUITbATNmGAYuSC3VIqCsJUjaGLDFFqe1QLqrK8a0MJUtAr5LA5Chw4VrRo XaCZYNBQtgDQ4ozuKuHOLwGu5AD7mMHtp5ECYnX2C8 VdipAShnXPK6HMlgMOQyHQrhVfmfYjrgXT0gXFG8TCHzOvy7IjQ9ZUSnTnj7IDZ9CsH3XGQxF6CxYsUw CxKpNT5EFj9OQsO5BWQ9kDTnUh6ZYBHqJCZNZiXpCQ5KPOj= ID Date Data Source URINE TOTAL PROTEIN 24 HOUR 02/21/2019 12:00:00 AM EST eCW1 ([facility]) Name Value Range Interpretation Code Description Data Miladys rce(s) Supporting Document(s) 210.0 50-150 TOTAL PROTEIN 24 HOUR URI NE eCW1 ([facility]) 6.0 0-12 URINE TOTAL PROTEIN eCW1 ([facility]) ID Date Data Source URINE CREATININE 24 HOUR 02/21/2019 12:00:00 AM EST eCW1 (Formerly [facility], 1928–1983) Name Value Range Interpretation Code Description Data Miladys rce(s) Supporting Document(s) 3500 TOTAL VOLUME, URINE eCW1 ([facility]) 1309.0 600-1800 CREATININE 24 HOUR, URINE eCW1 ([facility]) 37.4 CREATININE, URINE eCW1 ([facility]) ID Date Data Source LDH LACTATE DEHYDROGENASE 02/19/2019 12:00:00 AM EST eCW1 ([facility]) Name Value Range Interpretation Code Description Data Miladys rce(s) Supporting Document(s) 138 84-246 LDH LACTATE DEHYDROGENASE eCW1 ([facility]) ID Date Data Source SERUM PROTEIN ELECTROPHORESIS 02/19/2019 12:00:00 AM EST eCW 1 ([facility]) Name Value Range Interpretation Code Description Data Miladys rce(s) Supporting Document(s) 42.5 55.8-66.1 ALBUMIN % eCW1 ([facility]) 7.7 7.1-11.8 CSTTF-9-WMWROIILG % eCW1 ([facility]) 4.0 4.7-7.2 JUND-2-YYKDYNKMH % eCW1 ([facility]) 3.2 2.9-4.9 TASSR-6-PYCFMYEO % eCW1 ([facility]) 14.3 3.2-6.5 BYHU-4-HHNTGOJPG % eCW1 ([facility]) 4.08 3.29-5.55 ALBUMIN eCW1 ([facility]) 1.3 11.1-18.8 GAMMA GLOBULIN % eCW1 ([facility]) 0.31 0.17-0.41 FXYNC-0-GQUFIEGYC eCW1 ([facility]) 0.74 0.42-0.99 XOVYH-9-TIGRKBJOW eCW1 ([facility]) 0.12 0.65-1.58 GAMMA GLOBULINS eCW1 ([facility]) 9.6 6.4-8.2 TOTAL PROTEIN eCW1 ([facility]) 3.96 0.19-0.55 VQAD-1-IAFGNRKEB eCW1 ([facility]) 0.38 0.28-0.60 YBWW-8-AZJOXUDHV eCW1 ([facility]) SEE COMMENT SPEP INTERPRETATION eCW1 (Formerly [facility], [facility]–1983) ID Date Data Source MAGNESIUM LEVEL 02/19/2019 12:00:00 AM EST eCW1 ([facility]) Name Value Range Interpretation Code Description Data Miladys rce(s) Supporting Document(s) 1.8 1.8-2.4 MAGNESIUM LEVEL eCW1 ([facility]) ID Date Data Source Basic Metabolic Profile (BMP) 02/19/2019 12:00:00 AM EST eCW 1 ([facility]) Name Value Range Interpretation Code Description Data Miladys rce(s) Supporting Document(s) 119 70-100 GLUCOSE, FASTING eCW1 ([facility]) 13 7-18 BLOOD UREA NITROGEN eCW1 ([facility]) > 60.0 >45 GLOMERULAR FILTRATION RATE eCW 1 ([facility]) 0.96 0.55-1.30 CREATININE FOR GFR eCW1 ([facility]) 140 136-145 SODIUM LEVEL eCW1 ([facility]) 3.6 3.5-5.1 POTASSIUM SERUM eCW1 ([facility]) 101 98-107 CHLORIDE LEVEL eCW1 ([facility]) 32 21-32 CARBON DIOXIDE LEVEL eCW1 ([facility]) 8.8 8.8-10.2 CALCIUM LEVEL eCW1 ([facility]) ID Date Data Source FREE KAPPA & LAMBDA LT CHAIN S 02/19/2019 12:00:00 AM EST eC W1 ([facility]) Name Value Range Interpretation Code Description Data Miladys rce(s) Supporting Document(s) 14.22 0.26-1.65 KAPPA/LAMBDA RATIO SERUM eCW1 ([facility]) 32.7 3.3-19.4 FREE KAPPA LIGHT CHAINS S DIANNA eCW1 ([facility]) 2.3 5.7-26.3 FREE LAMBDA LIGHT CHAINS SERUM eCW1 ([facility]) ID Date Data Source C REACTIVE PROTEIN QUANTITATIV (At [facility]) 02/19/2019 12:00 :00 AM EST eCW1 ([facility]) Name Value Range Interpretation Code Description Data Miladys rce(s) Supporting Document(s) < 0.30 0.00-0.30 C REACTIVE PROTEIN QUANTI TATIV eCW1 ([facility]) ID Date Data Source BETA 2 MICROGLOBULIN 02/19/2019 12:00:00 AM EST eCW1 ([facility]) Name Value Range Interpretation Code Description Data Miladys rce(s) Supporting Document(s) 3.2 0.6-2.4 BETA 2 MICROGLOBULIN eCW1 ([facility]) Procedure Social History Code Duration Value Status Description Data Source(s ) Smoking 04/09/2020 12:00:00 AM EST Former Smoker completed Former Smoker eCW1 ([facility]) Alcohol intake 04/08/2020 12:00:00 AM EST Not Currently completed [facility] Smoking 04/08/2020 12:00:00 AM EST Former smoker completed Former smoker [facility] Smoking 03/24/2020 12:00:00 AM EST Former Smoker completed Former Smoker eCW1 ([facility]) Smoking 03/24/2020 12:00:00 AM EST Former Smoker completed Former Smoker eCW1 ([facility]) Smoking 03/24/2020 12:00:00 AM EST Former Smoker completed Former Smoker eCW1 ([facility]) Smoking 03/24/2020 12:00:00 AM EST Former Smoker completed Former Smoker eCW1 ([facility]) Smoking 03/24/2020 12:00:00 AM EST Former Smoker completed Former Smoker eCW1 ([facility]) Smoking 12/20/2019 12:00:00 AM EDT Former Smoker completed Former Smoker eCW1 ([facility]) Smoking 12/20/2019 12:00:00 AM EDT Former Smoker completed Former Smoker eCW1 ([facility]) Smoking 12/20/2019 12:00:00 AM EDT Former Smoker completed Former Smoker eCW1 ([facility]) Smoking 12/20/2019 12:00:00 AM EDT Former Smoker completed Former Smoker eCW1 ([facility]) Smoking 09/19/2019 12:00:00 AM EDT Former Smoker completed Former Smoker eCW1 ([facility]) Smoking 05/07/2019 12:00:00 AM EST Patient is a former smoker completed Patient is a former smoker MEDENT ([facility], ) Alcohol intake 04/12/2019 12:00:00 AM EST Current non-d korina of alcohol (finding) completed Current non-drinker of alcohol (finding) [facility] Cigarette pack-years 04/12/2019 12:00:00 AM EST UNK completed [facility] Cigarettes smoked current (pack per day) - Reported 04/12/19 20 12:00:00 AM EST UNK completed [facility] Smoking 04/12/2019 12:00:00 AM EST Former smoker completed Former smoker [facility] Alcohol intake 03/10/2019 12:00:00 AM EST Current non-d korina of alcohol (finding) completed Current non-drinker of alcohol (finding) [facility] Cigarette pack-years 03/10/2019 12:00:00 AM EST UNK [facility] Cigarettes smoked current (pack per day) - Reported 03/10/20 19 12:00:00 AM EST UNK completed [facility] Smoking 03/10/2019 12:00:00 AM EST Former smoker completed Former smoker [facility] Vital Signs ID Date Data Source UNK Name Value Range Interpretation Code Description Data Source(s) Oxygen saturation in Arterial blood by Pulse oximetry 96 % 96 % [facility] Body mass index (BMI) [Ratio] 29.95 kg/m2 29.95 kg/m2 [facility] Body weight 81.647 kg 81.647 kg [facility] Body height 165.1 cm 165.1 cm [facility] Diastolic blood pressure 90 mm[Hg] 90 mm[Hg] [facility] Systolic blood pressure 130 mm[Hg] 130 mm[Hg] S [facility] Diastolic blood pressure 84 mm[Hg] 84 mm[Hg] eCW1 ([facility]) Systolic blood pressure 150 mm[Hg] 150 mm[Hg] e CW1 ([facility]) Body temperature 97.2 [degF] 97.2 [degF] eCW1 ( [facility]) Respiratory rate 18 /min 18 /min eCW1 (Formerly [facility], 1928–1983) Heart rate 97 /min 97 /min eCW1 ([facility]) Body mass index (BMI) [Ratio] 32.11 kg/m2 32.11 kg/m2 eCW1 ([facility]) Body height 64.5 [in_i] 64.5 [in_i] eCW1 ([facility]ly [facility]) Body weight 190 [lb_av] 190 [lb_av] eCW1 ([facility]) Diastolic blood pressure 76 mm[Hg] 76 mm[Hg] eCW1 ([facility]) Systolic blood pressure 130 mm[Hg] 130 mm[Hg] e CW1 ([facility]) Body temperature 96.9 [degF] 96.9 [degF] eCW1 ( [facility]) Respiratory rate 18 /min 18 /min eCW1 (Formerly [facility], 1928–1983) Heart rate 82 /min 82 /min eCW1 ([facility]) Body mass index (BMI) [Ratio] 31.43 kg/m2 31.43 kg/m2 eCW1 ([facility]) Body height 64.5 [in_i] 64.5 [in_i] eCW1 ([facility]) Body weight 186 [lb_av] 186 [lb_av] eCW1 ([facility]) Body surface area Derived from formula 1.86 m2 1.86 m2 [facility], [facility] Body weight 83.462 kg 83.462 kg [facility], ) Qulin body weight 110 [lb_av] 110 [lb_av] MEDEN T ([facility], ) Body mass index (BMI) [Ratio] 33.1 kg/m2 33.1 k g/m2 MEDENT ([facility], ) Body weight 184.00 [lb_av] 184.00 [lb_av] MEDEN T ([facility], ) Body height 62.50 [in_i] 62.50 [in_i] MEDENT ([facility], ) 5'2.50" Diastolic blood pressure 68 mm[Hg] 68 mm[Hg] MEDENT ([facility], ) Systolic blood pressure 122 mm[Hg] 122 mm[Hg] M EDENT ([facility], ) Diastolic blood pressure 60 mm[Hg] 60 mm[Hg] eCW1 ([facility]) Systolic blood pressure 112 mm[Hg] 112 mm[Hg] e CW1 ([facility]) Body temperature 97.4 [degF] 97.4 [degF] eCW1 ( [facility]) Respiratory rate 18 /min 18 /min eCW1 (Formerly [facility], 1928–1983) Heart rate 77 /min 77 /min eCW1 ([facility]) Body mass index (BMI) [Ratio] 31.09 kg/m2 31.09 kg/m2 W1 ([facility]) Body height 64.5 [in_us] 64.5 [in_us] eCW1 ([facility]) Body weight Measured 184 [lb_av] 184 [lb_av] eC W1 ([facility]) Diastolic blood pressure 70 mm[Hg] 70 mm[Hg] eCW1 ([facility]) Systolic blood pressure 120 mm[Hg] 120 mm[Hg] e CW1 ([facility]) Body temperature 97.3 [degF] 97.3 [degF] eCW1 ( [facility]) Respiratory rate 18 /min 18 /min eCW1 (Formerly [facility], 1928–1983) Heart rate 74 /min 74 /min eCW1 ([facility]) Body mass index (BMI) [Ratio] 30.59 kg/m2 30.59 kg/m2 eCW1 ([facility]) Body height 64.5 [in_us] 64.5 [in_us] eCW1 ([facility]) Body weight Measured 181 [lb_av] 181 [lb_av] eC W1 ([facility]) Body surface area Derived from formula 1.87 m2 1.87 m2 MEDENT ([facility], ) Body weight 84.823 kg 84.823 kg [facility] Qulin body weight 110 [lb_av] 110 [lb_av] MEDEN T ([facility]) Body mass index (BMI) [Ratio] 33.7 kg/m2 33.7 k g/m2 [facility] ([facility]) Body weight 187.00 [lb_av] 187.00 [lb_av] MEDEN T ([facility]) Body height 62.50 [in_i] 62.50 [in_i] MEDENT ([facility]) 5'2.50" Oxygen saturation in Arterial blood by Pulse oximetry 98 % 98 % [facility] ([facility]) Room Air Heart rate 77 /min 77 /min [facility] ([facility]) Diastolic blood pressure 68 mm[Hg] 68 mm[Hg] [facility] ([facility]) Systolic blood pressure 118 mm[Hg] 118 mm[Hg] [facility] ([facility]) Body weight 84.370 kg 84.370 kg [facility] ([facility]) Body mass index (BMI) [Ratio] 33.5 kg/m2 33.5 k g/m2 [facility] ([facility]) Body weight 186.00 [lb_av] 186.00 [lb_av] MEDEN T ([facility]) Body height 62.50 [in_i] 62.50 [in_i] [facility] ([facility]) 5'2.50" Diastolic blood pressure 77 mm[Hg] 77 mm[Hg] [facility] ([facility]) Systolic blood pressure 148 mm[Hg] 148 mm[Hg] [facility] ([facility]) Body weight 84.029 kg 84.029 kg [facility] ([facility]) Body mass index (BMI) [Ratio] 33.3 kg/m2 33.3 k g/m2 [facility] ([facility]) Body weight 185.25 [lb_av] 185.25 [lb_av] MEDEN T ([facility]) Body height 62.50 [in_i] 62.50 [in_i] MEDENT ([facility]) 5'2.50" Diastolic blood pressure 72 mm[Hg] 72 mm[Hg] MEDENT ([facility], ) Systolic blood pressure 112 mm[Hg] 112 mm[Hg] M EDENT ([facility], ) Diastolic blood pressure 76 mm[Hg] 76 mm[Hg] eCW1 ([facility]) Systolic blood pressure 120 mm[Hg] 120 mm[Hg] e CW1 ([facility]) Body temperature 97.2 [degF] 97.2 [degF] eCW1 ( [facility]) Respiratory rate 17 /min 17 /min eCW1 (Formerly [facility], 1928–1983) Heart rate 70 /min 70 /min eCW1 ([facility]) Body mass index (BMI) [Ratio] 31.77 kg/m2 31.77 kg/m2 W1 ([facility]) Body height 64.5 [in_us] 64.5 [in_us] eCW1 ([facility]) Body weight Measured 188 [lb_av] 188 [lb_av] eC W1 ([facility]) Diastolic blood pressure 80 mm[Hg] 80 mm[Hg] eCW1 ([facility]) Systolic blood pressure 132 mm[Hg] 132 mm[Hg] e CW1 ([facility]) Body temperature 97.5 [degF] 97.5 [degF] eCW1 ( [facility]) Respiratory rate 18 /min 18 /min eCW1 (Formerly [facility], 1928–1983) Heart rate 89 /min 89 /min eCW1 ([facility]) Body mass index (BMI) [Ratio] 31.87 kg/m2 31.87 kg/m2 eCW1 ([facility]) Body height 64.5 [in_us] 64.5 [in_us] eCW1 ([facility]) Body weight Measured 188.6 [lb_av] 188.6 [lb_av ] eCW1 ([facility]) Systolic blood pressure 134 mm[Hg] 134 mm[Hg] A THENA ([facility]) Body height 65 [in_i] 65 [in_i] KIMANI ([facility]) Diastolic blood pressure 74 mm[Hg] 74 mm[Hg] KIMANI ([facility]) Diastolic blood pressure 70 mm[Hg] 70 mm[Hg] eCW1 ([facility]) Systolic blood pressure 122 mm[Hg] 122 mm[Hg] e CW1 ([facility]) Body temperature 97.9 [degF] 97.9 [degF] eCW1 ( [facility]) Respiratory rate 18 /min 18 /min eCW1 (Formerly [facility], 1928–1983) Heart rate 81 /min 81 /min eCW1 ([facility]) Body mass index (BMI) [Ratio] 31.26 kg/m2 31.26 kg/m2 W1 ([facility]) Body height 64.5 [in_us] 64.5 [in_us] eCW1 ([facility]) Body weight Measured 185 [lb_av] 185 [lb_av] eC W1 ([facility]) ID Date Data Source [id number] 03/20/2020 04:26:05 PM [facility] Name Value Range Interpretation Code Description Data Source(s) WEIGHT RECORDED 188.01 pounds 188.01 pounds [facility] Height 64 Inches 064 Inches [facility] WEIGHT RECORDED 188.01 pounds 188.01 pounds [facility] Height 64 Inches 064 Inches [facility] ID Date Data Source [id number] 04/24/2019 05:53:[address] [facility] Name Value Range Interpretation Code Description Data Source(s) WEIGHT RECORDED 187.4 lb 187.4 lb [facility] Body height Measured 62.99 in 62.99 in [facility] ID Date Data Source [id number] 03/10/2019 01:04:[address] [facility] Name Value Range Interpretation Code Description Data Source(s) WEIGHT RECORDED 189 lb 189 lb [facility] Body height Measured 62.99 in 62.99 in [facility] Patient Treatment Plan of Care Planned Activity Planned Date Details Description Data Source (s) Blood Pressure Cuff - 04/09/2020 12:00:00 AM EST eCW1 ([facility]) Diphenhydramine-Zinc Acetate 1-0.1 % 04/09/2020 12:00:00 AM EST eCW1 ([facility]) Hydralazine Hydrochloride 10 MG Oral Tablet 03/27/2020 12:00:00 AM EST eCW1 ([facility]) Potassium Chloride 20 MEQ Extended Release Oral Tablet 03/27/2020 12:00:00 AM EST eCW1 ([facility]) Metoprolol Tartrate 25 MG Oral Tablet 03/27/2020 12:00:00 AM EST eCW1 ([facility]) potassium chloride SA (K-DUR,KLOR-CON) 20 MEQ tablet 12:00:00 AM EST [facility] pantoprazole 40 MG Delayed Release Oral Tablet 03/15/2020 12:00:00 AM EST [facility] Metoprolol Tartrate 25 MG Oral Tablet 03/15/2020 12:00:00 AM EST [facility] Losartan Potassium 25 MG Oral Tablet 02/20/2020 12:00:00 AM EST [facility] Ondansetron 4 MG Oral Tablet 02/15/2020 12:00:00 AM EST [facility] Morphine Sulfate 15 MG Oral Tablet 01/08/2020 12:00:00 AM EDT [facility] tizanidine 2 MG Oral Tablet 12/20/2019 12:00:00 AM EDT eCW1 ([facility]) Trazodone Hydrochloride 50 MG Oral Tablet 12/20/2019 12:00:00 AM ED T eCW1 ([facility]) tizanidine 2 MG Oral Tablet 12/20/2019 12:00:00 AM EDT eCW1 ([facility]) Trazodone Hydrochloride 50 MG Oral Tablet 12/20/2019 12:00:00 AM ED T eCW1 ([facility]) tizanidine 2 MG Oral Tablet 12/20/2019 12:00:00 AM EDT eCW1 ([facility]) Trazodone Hydrochloride 50 MG Oral Tablet 12/20/2019 12:00:00 AM ED T eCW1 ([facility]) tizanidine 2 MG Oral Tablet 12/20/2019 12:00:00 AM EDT eCW1 ([facility]) Trazodone Hydrochloride 50 MG Oral Tablet 12/20/2019 12:00:00 AM ED T eCW1 ([facility]) torsemide 100 MG Oral Tablet 09/25/2019 12:00:00 AM EDT [facility] Hydroxyzine Hydrochloride 25 MG Oral Tablet 09/23/2019 12:00:00 AM EDT [facility] atorvastatin 80 MG Oral Tablet 09/20/2019 12:00:00 AM EDT eCW1 ([facility]) atorvastatin 80 MG Oral Tablet 09/20/2019 12:00:00 AM EDT eCW1 ([facility]) atorvastatin 80 MG Oral Tablet 09/20/2019 12:00:00 AM EDT eCW1 ([facility]) atorvastatin 80 MG Oral Tablet 09/20/2019 12:00:00 AM EDT eCW1 ([facility]) MetFORMIN HCl ER 750 MG 09/20/2019 12:00:00 AM EDT eCW1 ([facility]) atorvastatin 80 MG Oral Tablet 09/20/2019 12:00:00 AM EDT eCW1 ([facility]) atorvastatin 80 MG Oral Tablet 09/20/2019 12:00:00 AM EDT [facility] Dexamethasone 4 MG Oral Tablet 08/17/2019 12:00:00 AM EDT [facility] pomalidomide 2 MG Oral Capsule 08/01/2019 12:00:00 AM EDT [facility] Misc. Devices - 07/17/2019 12:00:00 AM EDT eCW1 ([facility]) tramadol hydrochloride 50 MG Oral Tablet 07/15/2019 12:00:00 AM EDT [facility] Acyclovir 400 MG Oral Tablet 07/13/2019 12:00:00 AM EDT [facility] Famotidine 40 MG Oral Tablet 02/19/2019 12:00:00 AM EST eCW1 ([facility]) Famotidine 40 MG Oral Tablet 02/19/2019 12:00:00 AM EST eCW1 ([facility]) Potassium Chloride 10 MEQ Extended Release Oral Capsul e 11/18/2015 12:00:00 AM EDT [facility] Losartan Potassium 100 MG Oral Tablet 11/18/2015 12:00:00 AM EDT [facility] Furosemide 40 MG Oral Tablet 10/22/2008 12:00:00 AM EDT [facility] Colchicine 0.6 MG Oral Tablet [facility] Cimetidine 800 MG Oral Tablet KIMANI ([facility])
[2020-04-14] MEDS ORDERED: NS 1,000 ML IV ONE (01:30)
[2020-04-14 01:42] LABS: BASO % 0.2 % (0.0-1.0); EOS # 0.1 10^3/uL (0.0-0.5); EOS % 0.4 % (0.0-3.0); HEMOGLOBIN 12.3 g/dl (12.0-15.5); LYMPH # 3.3 10^3/uL (1.5-5.0); LYMPH % 26.5 % (24.0-44.0); MEAN CORPUSCULAR HGB CONC 32.4 g/dl (32.0-36.5); MEAN CORPUSCULAR VOLUME 101.9 fl (80.0-96.0); MONO # 0.5 10^3/uL (0.0-0.8); MONO % 4.3 % (0.0-5.0); NEUTROPHILS # 8.5 10^3/uL (1.5-8.5); NEUTROPHILS % 68.3 % (36.0-66.0); PLATELET COUNT, AUTOMATED 137 10^3/uL (150-450); RED BLOOD COUNT 3.73 10^6/uL (4.00-5.40); WHITE BLOOD COUNT 12.5 10^3/uL (4.0-10.0)
[2020-04-14] MEDS ORDERED: ISOVUE-370 76% 100ML VIAL As Ordered ONE (01:59)
[2020-04-14] MEDS ORDERED: ONDANSETRON 4MG/2ML VIAL IV ONE (02:00)
[2020-04-14 02:17] LABS: ALBUMIN 4.2 GM/DL (3.2-5.2); ALT/SGPT 18 U/L (12-78); BILIRUBIN,DIRECT 0.2 MG/DL (0.0-0.2); BILIRUBIN,TOTAL 0.8 MG/DL (0.2-1.0); CK-MB VALUE MASS < 1.0 NG/ML (<3.6); CPK CREATINE PHOSPHOKINASE 38 U/L (26-192); LIPASE 39 U/L (73-393); MB/CK RELATIVE INDEX 2.63 (< OR =4); TOTAL PROTEIN 7.5 GM/DL (6.4-8.2); TROPONIN I < 0.02 NG/ML (< 0.10)
--- NOTE | 2020-04-14 02:24 | REPVR ---
PROCEDURE INFORMATION: Exam: CT Abdomen And Pelvis With Contrast Exam date and time: 04/14/2020 1:47 AM Age: 64 years old Clinical indication: Abdominal pain; Generalized; Additional info: Syncope TECHNIQUE: Imaging protocol: Computed tomography of the abdomen and pelvis with contrast. Radiation optimization: All CT scans at this facility use at least one of these dose optimization techniques: automated exposure control; mA and/or kV adjustment per patient size (includes targeted exams where dose is matched to clinical indication); or iterative reconstruction. Contrast material: ISO; Contrast volume: 100 ml; Contrast route: INTRAVENOUS (IV); COMPARISON: CT ABD PELVIS WITH CONTRAST 11/28/2019 8:29 AM FINDINGS: Lungs: No suspicious mass or airspace process in the visualized lung bases. Heart: Multi-chamber cardiac dilatation is noted. No evidence of acute pulmonary edema. Mediastinal space: Small hiatal hernia is present. Liver: Liver appears enlarged, with a stable 14 mm inferior right lobe cyst. Gallbladder and bile ducts: Gallbladder is surgically absent. Pancreas: Pancreas appears normal. No focal mass or peripancreatic inflammation. Spleen: Spleen appears homogeneous without focal mass. Adrenal glands: Adrenal glands are normal in appearance. Kidneys and ureters: Kidneys are unremarkable aside from an 11 mm left renal lower pole cyst. Stomach and bowel: No evidence of small bowel obstruction. Sigmoid colon wall thickening, adjacent fat stranding and regional diverticula suggests acute diverticulitis without perforation or abscess formation at this point. Appendix: Normal caliber appendix is identified, with no adjacent inflammation. Intraperitoneal space: No pneumoperitoneum. Vasculature: No aortic aneurysm. Main portal and splenic veins enhance normally. Lymph nodes: No enlarged lymph nodes. Urinary bladder: Urinary bladder appears normal. Reproductive: Uterus is surgically absent. Bones/joints: Bony structures are normal except for lumbar spine degenerative disc changes. Soft tissues: Unremarkable. IMPRESSION: 1. Acute diverticulitis involving the sigmoid colon with no evidence of obstruction, perforation or underlying mass. 2. Hepatomegaly. Electronically signed by: Lázaro White On 04/14/2020 02:24:01 AM
--- NOTE | 2020-04-14 02:24 | REPVR ---
PROCEDURE INFORMATION: Exam: CT Head Without Contrast Exam date and time: 04/14/2020 1:47 AM Age: 64 years old Clinical indication: Dizziness; Additional info: Syncope TECHNIQUE: Imaging protocol: Computed tomography of the head without contrast. Radiation optimization: All CT scans at this facility use at least one of these dose optimization techniques: automated exposure control; mA and/or kV adjustment per patient size (includes targeted exams where dose is matched to clinical indication); or iterative reconstruction. COMPARISON: CT Head without contrast 04/06/2020 5:24 PM FINDINGS: Brain: No intracranial mass, mass effect or midline shift. No acute intracranial hemorrhage. No CT evidence of acute cortical infarct. Ventricles, cisterns, and sulci are normal in size for age. Bones/joints: No calvarial fracture or destructive process. Paranasal sinuses: Imaged paranasal sinuses are normally aerated. Mastoid air cells: Mastoid air cells and middle ear structures are normally aerated. Orbital cavity: Imaged orbits are unremarkable. Soft tissues: No focal extracranial soft tissue swelling. IMPRESSION: No acute or concerning focal intracranial abnormality. Electronically signed by: Lázaro White On 04/14/2020 02:24:38 AM
[2020-04-14] MEDS ORDERED: METOCLOPRAMIDE INJ 10MG/2ML VIAL (J2765 PER 1) IV ONE (02:30)
[2020-04-14] MEDS ORDERED: metroNIDAZOLE 500 MG in IV 1 EA IV ONE (03:00)
[2020-04-14] MEDS ORDERED: cefTRIAXone SOD 2 GM in D5W MINI-BAG PLUS 50 ML IV ONE (03:00)
[2020-04-14 03:29] LABS: RSV AMPLIFICATION NEGATIVE (NEGATIVE)
--- OUTSIDE RECORDS SUMMARY | 2020-04-14 03:42 | CCD ---
Author Author [facility] Organization [facility] Address Unknown Phone Unavailable Support Name Relationship Address Phone Giuliano MALLOY Next Of Kin [address] [place] [address] WILLY HAMMOND Next Of Kin Unknown REYNALDO CALERO Next Of Kin [address] [place] [address] [address] [place] [address] GUILLAUME HUSSEIN Next Of Kin [address] [place] [address] LORENA LLANES Next Of Kin Unknown Unavailable JUDY HAMMOND Next Of Kin [address] [place] [address] [address] [place] [address] JUDY CALERO Next Of Kin [address] [place] [address] PENELOPE HUSSEIN Next Of Kin NA Unknown DISABLED Next Of Kin Unknown Unavailable [place] [address] [id number] DISABLE Next Of Kin Unknown Unavailable JUSTYN [place] [address] UE Next Of Kin Unknown Unavailable DISABILITY Next Of Kin X X, X X MARY MALLOY Next Of Kin [address] [place] [address] [address] [place] [address] ANDREW [place] [address] [id number] reynaldo calero [facility] DING [address] [place] [address] Unavailable Neva Llanes ECON Unknown Guillaume Hussein ECON [address] [place] [address] Unavailable Mary Malloy ECON [address] [facility] [address] [place], [place] [id number] [phone] Care Team Providers Care Wire Frame Lamp Shade Maker Name Role Phone [facility] [place] Unavailable Unavailable [place], Natty Jose Daniel Unavailable Unavailable [place], Natty Jose Daniel Unavailable Unavailable [place], Natty Jose Daniel Unavailable Unavailable Nathaniel, Natty Jose Daniel Unavailable Unavailable [place], Natty Jose Daniel Unavailable Unavailable Nathaniel, Natty Jose Daniel Unavailable Unavailable [place], Natty Jose Daniel Unavailable Unavailable Nathaniel, Natty [...] MD Unavailable Unavailable Danika Falanga, A Kavya CAR DETAILER Unavailable Unavailable Danika Falanga, A Kavya CAR DETAILER Unavailable Unavailable [place] Falanga, A Kavya CAR DETAILER Unavailable Unavailable [place] Falanga, A Kavya CAR DETAILER Unavailable Unavailable [place] Falanga, A Kavya CAR DETAILER Unavailable Unavailable [place] Falanga, A Kavya CAR DETAILER Unavailable Unavailable Danika Falanga, A Kavya CAR DETAILER Unavailable Unavailable [place] Falanga, A Kavya CAR DETAILER Unavailable Unavailable [place] Falanga, A Kavya CAR DETAILER Unavailable Unavailable Danika Falanga, A Kavya CAR DETAILER Unavailable Unavailable [place] Falanga, A Kavya CAR DETAILER Unavailable Unavailable Danika Falanga, A Kavya CAR DETAILER Unavailable Unavailable [place] Falanga, A Kavya CAR DETAILER Unavailable Unavailable [place] Falanga, A Kavya CAR DETAILER Unavailable Unavailable Danika Falanga, A Kavya CAR DETAILER Unavailable Unavailable Danika Falanga, A Kavya CAR DETAILER Unavailable Unavailable [place] Falanga, A Kavya CAR DETAILER Unavailable Unavailable [place] Falanga, A Kavya CAR DETAILER Unavailable Unavailable [place] Falanga, A Kavya CAR DETAILER Unavailable Unavailable Danika Falanga, A Kavya CAR DETAILER Unavailable Unavailable Danika Falanga, A Kavya CAR DETAILER Unavailable Unavailable Danika Falanga, A Kavya CAR DETAILER Unavailable Unavailable [place] Falanga, A Kavya CAR DETAILER Unavailable Unavailable Danika Falanga, A Kavya CAR DETAILER Unavailable Unavailable Danika Falanga, A Kavya CAR DETAILER Unavailable Unavailable [place] Falanga, A Kavya CAR DETAILER Unavailable Unavailable [place] Falanga, A Kavya CAR DETAILER Unavailable Unavailable Danika Falanga, A Kavya CAR DETAILER Unavailable Unavailable Danika Falanga, A Kavya CAR DETAILER Unavailable Unavailable Danika Falanga, A Kavya CAR DETAILER Unavailable Unavailable Nilson HARP MD Unavailable Unavailable [...] Unavailable Unavailable PAUL HOWARD MD Unavailable Unavailable Cecil, V NASREEN PA-C Unavailable Unavailable Galidno, V NASREEN PA-C Unavailable Unavailable Cecil, V NASREEN PA-C Unavailable Unavailable Cecil, V NASREEN PA-C Unavailable Unavailable Galindo, V NASREEN PA-C Unavailable Unavailable Cecil, V NASREEN PA-C Unavailable Unavailable Galindo, V NASREEN PA-C Unavailable Unavailable Jumalon, M Ludmila CAR DETAILER Unavailable Unavailable Jumalon, M Ludmila CAR DETAILER Unavailable Unavailable Jumalon, M Ludmila CAR DETAILER Unavailable Unavailable Jumalon, M Ludmila CAR DETAILER Unavailable Unavailable Jumalon, M Ludmila CAR DETAILER Unavailable Unavailable Jumalon, M Ludmila CAR DETAILER Unavailable Unavailable Jumalon, M Ludmila CAR DETAILER Unavailable Unavailable Jumalon, M Ludmila CAR DETAILER Unavailable Unavailable Jumalon, M Ludmila CAR DETAILER Unavailable Unavailable Jumalon, M Ludmila CAR DETAILER Unavailable Unavailable Jumalon, M Ludmila CAR DETAILER Unavailable Unavailable Jumalon, M Ludmila CAR DETAILER Unavailable Unavailable Jumalon, M Ludmila CAR DETAILER Unavailable Unavailable Jumalon, M Ludmila CAR DETAILER Unavailable Unavailable Jumalon, M Ludmila CAR DETAILER Unavailable Unavailable Jumalon, M Ludmila CAR DETAILER Unavailable Unavailable Jumalon, M Ludmila CAR DETAILER Unavailable Unavailable Jumalon, M Ludmila CAR DETAILER Unavailable Unavailable Jumalon, M Ludmila CAR DETAILER Unavailable Unavailable Jumalon, M Ludmila CAR DETAILER Unavailable Unavailable Jumalon, M Ludmila CAR DETAILER Unavailable Unavailable Jumalon, M Ludmila CAR DETAILER Unavailable Unavailable Jumalon, M Ludmila CAR DETAILER Unavailable Unavailable Jumalon, M Ludmila CAR DETAILER Unavailable Unavailable Jumalon, M Ludmila CAR DETAILER Unavailable Unavailable Jumalon, M Ludmila CAR DETAILER Unavailable Unavailable Jumalon, M Ludmila CAR DETAILER Unavailable Unavailable Jumalon, M Ludmila CAR DETAILER Unavailable Unavailable Diana Sherwood MD Unavailable Unavailable [...] PHYSICIAN STAFF Unavailable Unavailable Jumalon, M Ludmila CAR DETAILER Unavailable Unavailable Jumalon, M Ludmila CAR DETAILER Unavailable Unavailable Jumalon, M Ludmila CAR DETAILER Unavailable Unavailable Jumalon, M Ludmila CAR DETAILER Unavailable Unavailable Jumalon, M Ludmila CAR DETAILER Unavailable Unavailable Jumalon, M Ludmila CAR DETAILER Unavailable Unavailable Jumalon, M Ludmila CAR DETAILER Unavailable Unavailable Jumalon, M Ludmila CAR DETAILER Unavailable Unavailable Jumalon, M Ludmila CAR DETAILER Unavailable Unavailable Jumalon, M Ludmila CAR DETAILER Unavailable Unavailable Jumalon, M Ludmila CAR DETAILER Unavailable Unavailable Jumalon, M Ludmila CAR DETAILER Unavailable Unavailable Jumalon, M Ludmila CAR DETAILER Unavailable Unavailable Jumalon, M Ludmila CAR DETAILER Unavailable Unavailable Jumalon, M Ludmila CAR DETAILER Unavailable Unavailable Jumalon, M Ludmila CAR DETAILER Unavailable Unavailable Jumalon, M Ludmila CAR DETAILER Unavailable Unavailable Jumalon, M Ludmila CAR DETAILER Unavailable Unavailable Jumalon, M Ludmila CAR DETAILER Unavailable Unavailable Jumalon, M Ludmila CAR DETAILER Unavailable Unavailable Jumalon, M Ludmila CAR DETAILER Unavailable Unavailable Jumalon, M Ludmila CAR DETAILER Unavailable Unavailable Jumalon, M Ludmila CAR DETAILER Unavailable Unavailable Jumalon, M Ludmila CAR DETAILER Unavailable Unavailable Jumalon, M Ludmila CAR DETAILER Unavailable Unavailable Jumalon, M Ludmila CAR DETAILER Unavailable Unavailable Jumalon, M Ludmila CAR DETAILER Unavailable Unavailable Daphne MONTERO MD Unavailable Unavailable Daphne MONTERO MD Unavailable Unavailable Daphne MONTERO MD Unavailable Unavailable Dpahne MONTERO MD Unavailable Unavailable Daphne MONTERO MD [...] is protected by Article 27-F of the [facility] Public Health law. If you continue you may have access to information: Regarding HIV / AIDS; Provided by facilities licensed or operated by the [facility] Office of Mental Health; or Provided by the [facility] Office for People With Developmental Disabilities. If such information is present, then the following [facility] mandated warning applies: This information has been [...] law may result in a fine or senior care sentence or both. A general authorization for the release of medical or other information is NOT sufficient authorization for further disc losure. Allergies and Adverse Reactions Type Description Substance Reaction Status Data Source(s ) BRANDNAME KEPPRA KEPPRA [facility] BRANDNAME TYLENOL TYLENOL [facility] Drug allergy GABAPENTIN GABAPENTIN [place] [facility] Drug allergy METFORMIN METFORMIN [place] [facility] Drug allergy OXYCODONE OXYCODONE [place] [facility] Drug allergy CARISOPRODOL [facility]ISOPRODOL [facility] Drug allergy DOXYCYCLINE DOXYCYCLINE [place] [facility] Drug allergy FLUOCINOLONE FLUOCINOLONE [facility] Drug allergy PREDNISONE PREDNISONE [place] [facility] Drug allergy AMITRIPTYLINE AMITRIPTYLINE [facility] Drug allergy SPIRONOLACTONE SPIRONOLACTONE [facility] Drug allergy CODEINE CODEINE [place] [facility] CLASS QUINOLONES QUINOLONES [facility] CLASS NSAID NSAID [facility] Propensity to adverse reactions PREDNISONE Prednisone Acti ve [facility] Propensity to adverse reactions METFORMIN Metformin Acti ve [facility] Propensity to adverse reactions LEVETIRACETAM Levetiracetam Active [facility] Propensity to adverse reactions CODEINE Codeine Acti ve [facility] Propensity to adverse reactions ACETAMINOPHEN Acetaminophen Active [facility] Drug allergy Spironolactone Spironolactone Hives Active eCW1 ([facility]) Drug allergy Cipro Ciprofloxacin Hives Active eCW1 ([facility]) Drug allergy Amitriptyline HCl Amitriptyline Throat swelling Active eCW1 ([facility]) Drug allergy Tramadol HCl Tramadol Throat swelling Active eCW1 ([facility]) Drug allergy IBU Ibuprofen Kidneys Active eCW1 ([facility]) Drug allergy Percocet acetaminophen / oxycodone facial swelling Ac tive eCW1 ([facility]) DRUG INGREDI TRAMADOL Tramadol Swelling [facility] Propensity to adverse reactions GABAPENTIN gabapentin Acti ve [facility] Propensity to adverse reactions CARISOPRODOL Carisoprodol Active [facility] DRUG INGREDI GABAPENTIN GABAPENTIN [facility] DRUG INGREDI CARISOPRODOL CARISOPRODOL [facility] Soma Soma Carisoprodol 250 MG Oral Tablet [Soma] Rash Active eCW1 ([facility]) Family History Family Member Name Family Member Gender Family Member Status Date o f Status Description Data Source(s) Unknown Unknown Problem MEDENT ([facility]) Encounters Encounter Providers Location Date Indications Data Source(s ) Unknown [facility] [place] [address] 04/09/2020 12:00:00 AM EST eCW1 ([facility]) Outpatient Attender: NASREEN LAWSON.GEOFF-SJP.GEOFF 12:00:00 AM EST - 04/08/2020 03:27:49 PM EST [facility] Unknown [address] [facility] [place] [address] 04/06/2020 12:00:00 AM EST eCW1 ([facility]) Unknown [address] [facility] [place] [address] 04/03/2020 12:00:00 AM EST eCW1 ([facility]) Unknown [address] [facility] [place] [address] 03/30/2020 12:00:00 AM EST eCW1 ([facility]) Unknown [address] [facility] [place] [address] 03/30/2020 12:00:00 AM EST eCW1 ([facility]) Outpatient [address] [facility] [place] [address] 03/24/2020 12:00:00 AM EST [facility]CW1 [facility]) Outpatient Attender: [facility] 03/08/2020 09:5 0:00 PM [facility] Inpatient Attender: Kavya hawkins FNPAttender: NATASHA MONTERO MDConsultant: STAFF NON 03/06/2020 10:10:00 AM EST - 03/12/2020 12:50:00 PM [facility] Patient discharged. Outpatient Attender: Kavya BUENROSTRO 03/04/2020 12:24:00 PM EST - 03/06/2020 10:10:00 AM [facility] Unknown [address] [facility] [place] [address] 03/02/2020 12:00:00 AM EST eCW1 ([facility]) Unknown [address] [facility] [place] [address] 12/23/2019 12:00:00 AM EDT eCW1 ([facility]) Unknown [address] [facility] [place] [address] 12/23/2019 12:00:00 AM EDT eCW1 ([facility]) Outpatient [address] [place] [address] Y [address] 12/20/2019 12:00:00 AM EDT eCW1 ([facility]) Outpatient Attender: Diana Sherwood MD SJP.GEOFF-SJP.GEOFF 09/11 12:00:00 AM EDT - 10/07/2019 04:43:57 PM EDT [facility] Unknown [address] [place] [address], [place] [address] 10/01/2019 12:00:00 AM EDT eCW1 ([facility]) Outpatient Referrer: DILAN HARP MD 09/21/2019 12:00:[address] [place] [address] 09/10/2019 12:00:00 AM EDT eCW1 ([facility]) Outpatient Referrer: Ludmila COLBYP 07/25/2019 07:00:0 0 PM EDT [facility] [address] [place] [address] 07/17/2019 12:00:00 AM EDT eCW1 ([facility]) [address] [place] [address] 07/16/2019 12:00:00 AM EDT eCW1 ([facility]) Outpatient Attender: AUGIE HOOVER MD [id number] 07/10/2019 12:00:00 A M [facility] Outpatient Referrer: Ludmila BUENROSTRO 06/28/2019 04:47:0 0 AM EDT [facility] [address] [place] [address] 06/24/2019 12:00:00 AM EDT eCW1 ([facility]) [place] [id number] [place] [address], [place] [address] 06/18/2019 12:00:00 AM EDT eCW1 ([facility] [address] [place] [address], [place] [address] 06/12/2019 12:00:00 AM EDT eCW1 ([facility]) [address] [address] 06/10/2019 12:00:00 AM EDT eCW1 ([facility]) [address] [address] 06/10/2019 12:00:00 AM EDT eCW1 ([facility]) [address] [address] 06/10/2019 12:00:00 AM EDT eCW1 ([facility]) [address] [address] 06/05/2019 12:00:00 AM EDT eCW1 ([facility]) [address] [address] 05/27/2019 12:00:00 AM EDT eCW1 ([facility]) [address] [address] 05/24/2019 12:00:00 AM EDT eCW1 ([facility]) [address] [address] 05/20/2019 12:00:00 AM EDT eCW1 ([facility]) [address] [address] 05/17/2019 12:00:00 AM EST eCW1 ([facility]) Outpatient Referrer: Ludmila Tomlinson CAR DETAILER 05/07/2019 02:21:0 0 PM EST [facility] [address] [address] 04/24/2019 12:00:00 AM EST eCW1 ([facility]) [address] [address] 04/15/2019 12:00:00 AM EST eCW1 ([facility]) Outpatient Referrer: Ludmila Tomlinson [facility] 04/12/2019 09:28:0 0 AM EST [facility] Outpatient Attender: AUGIE HOOVER MD [id number] 020 12:00:00 AM EST - 04/12/2019 12:20:12 PM EST Rheumatoid arthritis without rheumatoid factor, unspecified site [facility] Rheumatoid arthritis without rheumatoid factor, unspecified site [address] [address] 04/10/2019 12:00:00 AM EST eCW1 ([facility]) [address] [address] 04/08/2019 12:00:00 AM EST eCW1 ([facility]) [address] [address] 04/03/2019 12:00:00 AM EST eCW1 ([facility]) Outpatient Attender: PAUL Murphy/Luca/Eduardo/Rein dl 03/26/2019 07:30:00 AM EST MEDENT ([facility]) Outpatient Attender: Jose Daniel Murphy/Vasyl 03/25/2019 09:15:00 AM EST MEDENT ([facility]) Outpatient Attender: MELIZA LANDRUM MDAdmi tter: MELIZA LANDRUM MDReferrer: MELIZA LANDRUM MD 03/20/2019 12:00:00 AM EST - 03/20/2019 11:59:00 PM EST Multiple myeloma not having achieved remission [facility] Multiple myeloma not having achieved rem ission Outpatient Referrer: Ludmila Tomlinson [facility] 03/14/2019 07:31:0 0 PM EST [facility] [address] [address] 03/08/2019 12:00:00 AM EST eCW1 ([facility]) Outpatient Attender: AUGIE HOOVER MD [id number] 019 12:00:00 AM EST - 03/01/2019 03:46:30 PM EST [address] [place] [address] 03/01/2019 12:00:00 AM EST eCW1 ([facility]) Outpatient Attender: AUGIE HOOVER MD 03/01/2019 12:00:[address] [place] [address] 02/28/2019 12:00:00 AM EST eCW1 ([facility]) Outpatient Attender: Jose Daniel Murphy/Luca/Eduardo/Jennifer 02/26/2019 09:00:00 AM EST MEDENT ([facility]) [address] [place] [address] 02/26/2019 12:00:00 AM EST eCW1 ([facility]) [address] [place] [address] 02/26/2019 12:00:00 AM EST eCW1 ([facility]) [address] [place] [address] 02/25/2019 12:00:00 AM EST eCW1 ([facility]) [address] [address] 02/22/2019 12:00:00 AM EST eCW1 ([facility]) Ludmila Tomlinson, RESIDENTIAL MONITOR: [address], [place] [address], Ph. Attender: Ludmila Tomlinson CAR DETAILER [place] - [facility] - Main Office 02/20/2019 12:00:00 AM EST ATHE NA ([facility]) [place] [address] [facility] [place] [address] 02/19/2019 12:00:00 AM EST eCW1 ([facility]) [facility] [place] [address] [facility] [address] 02/19/2019 12:00:00 AM EST eCW1 ([facility]) [facility] [place] [address] [facility] [place] [address] 02/15/2019 12:00:00 AM EST eCW1 ([facility]) [facility] [place] [address] [facility] [place] [address] 02/14/2019 12:00:00 AM EST eCW1 ([facility]) Outpatient Referrer: Ludmila BUENROSTRO 02/13/2019 04:58:0 0 AM EST [facility] Immunizations Vaccine Date Status Description Data Source(s) influenza, recombinant, quadrIvalent,injectable, prese rvative free 12/20/2019 10:30:00 AM EDT completed eCW1 ([facility]) influenza, recombinant, quadrIvalent,injectable, prese rvative free 12/20/2019 10:30:00 AM EDT completed eCW1 ([facility]) influenza, recombinant, quadrIvalent,injectable, prese rvative free 12/20/2019 10:30:00 AM EDT completed eCW1 ([facility]) influenza, recombinant, quadrIvalent,injectable, prese rvative free 12/20/2019 10:30:00 AM EDT completed eCW1 ([facility]) influenza, recombinant, quadrIvalent,injectable, prese rvative free 12/20/2019 10:30:00 AM EDT completed eCW1 ([facility]) influenza, recombinant, quadrIvalent,injectable, prese rvative free 12/20/2019 10:30:00 AM EDT completed eCW1 ([facility]) influenza, recombinant, quadrIvalent,injectable, prese rvative free 12/20/2019 10:30:00 AM EDT completed eCW1 ([facility]) influenza, recombinant, quadrIvalent,injectable, prese rvative free 12/20/2019 10:30:00 AM EDT completed eCW1 ([facility]) influenza, recombinant, quadrIvalent,injectable, prese rvative free 12/20/2019 10:30:00 AM EDT completed eCW1 ([facility]) influenza, recombinant, quadrIvalent,injectable, prese rvative free 12/20/2019 10:30:00 AM EDT completed eCW1 ([facility]) Medications Medication Brand Name Start Date Product Form Dose Route Admi nistrative Instructions Pharmacy Instructions Status Indications Reaction Description Data Source(s) Blood Pressure Cuff - Blood Pressure Cuff - 04/09/2020 12:00:00 AM EST active Blood Pressure Cuff - eCW1 ( [facility]) 20 mEq 04/09/2020 12:00:00 AM EST tablet extended release 60 TAKE ONE TABLET BY MOUTH TWICE A DAY WITH FOOD TAKE ONE TABLET BY MOUTH TWICE A DAY WITH FOOD SOLD: 04/09/2020 [facility] Diphenhydramine-Zinc Acetate 1-0.1 % UNK 04/09/2020 12:00: 00 AM EST 1.0 {application_as_needed} active Diphenhy dramine-Zinc Acetate 1-0.1 % eCW1 ([facility]) 20 mg 04/06/2020 12:00:00 AM EST tablet 60 TAKE TWO TABLETS BY MOUTH EVERY DAY TAKE TWO TABLETS BY MOUTH EVERY DAY SOLD: 04/07/2020 [facility] Metoprolol Tartrate 25 MG Oral Tablet Metoprolol Tartrate 25 MG 03/27/2020 12:00:00 AM EST 1.0 {tablet_with_food} active Metoprolol Tartrate 25 MG eCW1 ([facility]) Hydralazine Hydrochloride 10 MG Oral Tablet HydrALAZIN E HCl 10 MG HydrALAZINE HCl 10 MG 03/27/2020 12:00:00 AM EST 2.0 {tablet_with_food} active HydrALAZINE HCl 10 MG eCW1 ([facility]) Metoprolol Tartrate 25 MG Oral Tablet Metoprolol Tartrate 25 MG 03/27/2020 12:00:00 AM EST 1.0 {tablet_with_food} active Metoprolol Tartrate 25 MG eCW1 ([facility]) Potassium Chloride 20 MEQ Extended Relea se Oral Tablet Potassium Chloride ER 20 MEQ Potassium Chloride ER 20 MEQ 03/27/2020 12:00:00 AM EST 1.0 {tablet_with_food} active Potassium Chl oride ER 20 MEQ eCW1 ([facility]) Hydralazine Hydrochloride 10 MG Oral Tablet HydrALAZIN E HCl 10 MG HydrALAZINE HCl 10 MG 03/27/2020 12:00:00 AM EST 2.0 {tablet_with_food} active HydrALAZINE HCl 10 MG eCW1 ([facility]) Hydralazine Hydrochloride 10 MG Oral Tablet HydrALAZIN E HCl 10 MG HydrALAZINE HCl 10 MG 03/27/2020 12:00:00 AM EST 2.0 {tablet_with_food} active HydrALAZINE HCl 10 MG eCW1 ([facility]) Potassium Chloride 20 MEQ Extended Relea se Oral Tablet Potassium Chloride ER 20 MEQ Potassium Chloride ER 20 MEQ 03/27/2020 12:00:00 AM EST 1.0 {tablet_with_food} active Potassium Chl oride ER 20 MEQ eCW1 ([facility]) Potassium Chloride 20 MEQ Extended Relea se Oral Tablet Potassium Chloride ER 20 MEQ Potassium Chloride ER 20 MEQ 03/27/2020 12:00:00 AM EST 1.0 {tablet_with_food} active Potassium Chl oride ER 20 MEQ eCW1 ([facility]) Potassium Chloride 20 MEQ Extended Relea se Oral Tablet Potassium Chloride ER 20 MEQ Potassium Chloride ER 20 MEQ 03/27/2020 12:00:00 AM EST 1.0 {tablet_with_food} active Potassium Chl oride ER 20 MEQ eCW1 ([facility]) Metoprolol Tartrate 25 MG Oral Tablet Metoprolol Tartrate 25 MG 03/27/2020 12:00:00 AM EST 1.0 {tablet_with_food} active Metoprolol Tartrate 25 MG eCW1 ([facility]) Hydralazine Hydrochloride 10 MG Oral Tablet HydrALAZIN E HCl 10 MG HydrALAZINE HCl 10 MG 03/27/2020 12:00:00 AM EST 2.0 {tablet_with_food} active HydrALAZINE HCl 10 MG eCW1 ([facility]) Metoprolol Tartrate 25 MG Oral Tablet Metoprolol Tartrate 25 MG 03/27/2020 12:00:00 AM EST 1.0 {tablet_with_food} active Metoprolol Tartrate 25 MG eCW1 ([facility]) Potassium Chloride 20 MEQ Extended Relea se Oral Tablet Potassium Chloride ER 20 MEQ Potassium Chloride ER 20 MEQ 03/27/2020 12:00:00 AM EST 1.0 {tablet_with_food} active Potassium Chl oride ER 20 MEQ eCW1 ([facility]) Hydralazine Hydrochloride 10 MG Oral Tablet HydrALAZIN E HCl 10 MG HydrALAZINE HCl 10 MG 03/27/2020 12:00:00 AM EST 2.0 {tablet_with_food} active HydrALAZINE HCl 10 MG eCW1 ([facility]) Metoprolol Tartrate 25 MG Oral Tablet Metoprolol Tartrate 25 MG 03/27/2020 12:00:00 AM EST 1.0 {tablet_with_food} active Metoprolol Tartrate 25 MG eCW1 ([facility]) 10 mg 03/26/2020 12:00:00 AM EST tablet 180 TAKE TWO TABLETS BY MOUTH THREE TIMES A DAY TAKE TWO TABLETS BY MOUTH THREE TIMES A DAY SOLD: 03/26/2020 [facility] potassium chloride SA (K-DUR,KLOR-CON) 20 MEQ tablet [id number] 03/26/2020 12:00:00 AM EST 20 meq Oral active Take 20 mEq by mouth [facility] 20 mEq 03/26/2020 12:00:00 AM EST [...] by mouth 2 (two) times a day [facility] Metoprolol Tartrate 25 MG Oral Tablet me toprolol tartrate (LOPRESSOR) 25 MG tablet metoprolol tartrate (LOPRESSOR) 25 MG tablet 03/15/2020 12:0 0:00 AM EST active TAKE ONE TABLET BY MOUTH TWICE A DAY FOR BLOOD PRESSURE [facility] pantoprazole 40 MG Delayed Release Oral [...] EST 1 {tbl} active 1 tablet daily [facility] Ondansetron 4 MG Oral Tablet ondansetron (ZOFRAN) 4 MG tablet ondansetron (ZOFRAN) 4 MG tablet 02/15/2020 12:00:00 AM EST 1 {tbl} active 1 tablet as needed [facility] Morphine Sulfate 15 MG Oral Tablet morphine (MSIR) 15 MG tablet morphine (MSIR) 15 MG tablet 01/08/2020 12:00:00 AM EDT activ e TAKE 1 TABLET BY MOUTH 3 TIMES A DAY NEEDED FOR PAIN MAX DAILY DOSE 3 TABLETS [facility] 400 mg (241.3 mg magnesium) 01/08/2020 [...] {tablet_as_needed} active Tizanidine HCl 2 MG eCW1 ([facility]) 2 mg 12/20/2019 12:00:00 AM EDT tablet 90 TAKE ONE TABLET BY MOUTH THREE TIMES A DAY NEEDED TAKE ONE TABLET BY MOUTH THREE TIMES A DAY NEEDED S OLD: 12/20/2019 [facility] Trazodone Hydrochloride 50 MG Oral Tablet TraZODone HC l 50 MG TraZODone HCl 50 MG 12/20/2019 12:00:00 AM EDT 0.51 {tablet_at_bedtime_as_needed} active TraZODone HCl 50 MG eCW1 ([facility]) Trazodone Hydrochloride 50 MG Oral Tablet TraZODone HC l 50 MG TraZODone HCl 50 MG 12/20/2019 12:00:00 AM EDT 0.51 {tablet_at_bedtime_as_needed } suspended TraZODone HCl 50 MG eCW1 ([facility]) Trazodone Hydrochloride 50 MG Oral Tablet TraZODone HC l 50 MG TraZODone HCl 50 MG 12/20/2019 12:00:00 AM EDT 0.51 {tablet_at_bedtime_as_needed} active TraZODone HCl 50 MG eCW1 ([facility]) tizanidine 2 MG Oral Tablet Tizanidine HCl 2 MG Tizanidine H Cl 2 MG 12/20/2019 12:00:00 AM EDT 1.0 {tablet_as_needed} active Tizanidine HCl 2 MG eCW1 ([facility]) tizanidine 2 MG Oral Tablet Tizanidine HCl 2 MG Tizanidine H Cl 2 MG 12/20/2019 12:00:00 AM EDT 1.0 {tablet_as_needed} active Tizanidine HCl 2 MG eCW1 ([facility]) tizanidine 2 MG Oral Tablet Tizanidine HCl 2 MG Tizanidine H Cl 2 MG 12/20/2019 12:00:00 AM EDT 1.0 {tablet_as_needed} active Tizanidine HCl 2 MG eCW1 ([facility]) Trazodone Hydrochloride 50 MG Oral Tablet TraZODone HC l 50 MG TraZODone HCl 50 MG 12/20/2019 12:00:00 AM EDT 0.51 {tablet_at_bedtime_as_needed} active TraZODone HCl 50 MG eCW1 ([facility]) Trazodone Hydrochloride 50 MG Oral Tablet TraZODone HC l 50 MG TraZODone HCl 50 MG 12/20/2019 12:00:00 AM EDT 0.51 {tablet_at_bedtime_as_needed} active TraZODone HCl 50 MG eCW1 ([facility]) 50 mg 12/20/2019 12:00:00 AM EDT tablet 30 TAKE 1/2-1 TABLET BY MOUTH ONCE A DAY AT BEDTIME NEEDED TAKE 1/2-1 TABLET BY MOUTH ONCE A DAY AT BEDTIME NEEDED SOLD: 12/20/2019 [facility] tizanidine 2 MG Oral Tablet Tizanidine HCl 2 MG Tizanidine H Cl 2 MG 12/20/2019 12:00:00 AM EDT 1.0 {tablet_as_needed} suspended Tizanidine HCl 2 MG eCW1 ([facility]) Metronidazole 500 MG Oral Tablet METRONIDAZOLE 12/01/2019 [...] tablet (100 mg total) by mouth daily [facility] 25 mg 09/24/2019 12:00:00 AM EDT [...] active Take 25 mg by mouth nightly [facility] atorvastatin 80 MG Oral Tablet Atorvastatin Calcium 80 MG Atorvastatin Calcium 80 MG 09/20/2019 12:00:00 AM EDT 1.0 {tablet} activ e Atorvastatin Calcium 80 MG eCW1 ([facility]) 24 HR Metformin hydrochloride 750 MG Ext ended Release Oral Tablet MetFORMIN HCl ER 750 MG MetFORMIN HCl ER 750 MG 09/20/2019 12:00:00 AM EDT 1.0 {tablet_with_evening_meal} suspended Met FORMIN HCl ER 750 MG eCW1 ([facility]) MetFORMIN HCl ER 750 MG MetFORMIN HCl ER 750 MG 09/20/2019 12:00:00 AM EDT 1.0 {tablet_with_evening_meal} suspended Me tFORMIN HCl ER 750 MG eCW1 ([facility]) atorvastatin 80 MG Oral Tablet Atorvastatin Calcium 80 MG Atorvastatin Calcium 80 MG 09/20/2019 12:00:00 AM EDT 1.0 {tablet} activ e Atorvastatin Calcium 80 MG eCW1 ([facility]) 24 HR Metformin hydrochloride 750 MG Ext ended Release Oral Tablet MetFORMIN HCl ER 750 MG MetFORMIN HCl ER 750 MG 09/20/2019 12:00:00 AM EDT 1.0 {tablet_with_evening_meal} active MetFO RMIN HCl ER 750 MG eCW1 ([facility]) 24 HR Metformin hydrochloride 750 MG Ext ended Release Oral Tablet MetFORMIN HCl ER 750 MG MetFORMIN HCl ER 750 MG 09/20/2019 12:00:00 AM EDT 1.0 {tablet_with_evening_meal} active MetFO RMIN HCl ER 750 MG eCW1 ([facility]) MetFORMIN HCl ER 750 MG MetFORMIN HCl ER 750 MG 09/20/2019 12:00:00 AM EDT 1.0 {tablet_with_evening_meal} suspended Me tFORMIN HCl ER 750 MG eCW1 ([facility]) 24 HR Metformin hydrochloride 750 MG Ext ended Release Oral Tablet MetFORMIN HCl ER 750 MG MetFORMIN HCl ER 750 MG 09/20/2019 12:00:00 AM EDT 1.0 {tablet_with_evening_meal} active MetFO RMIN HCl ER 750 MG eCW1 ([facility]) atorvastatin 80 MG Oral Tablet ATORVASTATIN CALCIUM 09/20/2019 1 2:00:00 AM EDT tablet 90 TAKE 1 TABLET BY MOUTH ONCE A DAY TAKE 1 TABLET BY MOUTH ONCE A DAY SOLD: 09/20/2019 [facility] atorvastatin 80 MG Oral Tablet Atorvastatin Calcium 80 MG Atorvastatin Calcium 80 MG 09/20/2019 12:00:00 AM EDT 1.0 {tablet} activ e Atorvastatin Calcium 80 MG eCW1 ([facility]) 24 HR Metformin hydrochloride 750 MG Ext ended Release Oral Tablet MetFORMIN HCl ER 750 MG MetFORMIN HCl ER 750 MG 09/20/2019 12:00:00 AM EDT 1.0 {tablet_with_evening_meal} suspended Met FORMIN HCl ER 750 MG eCW1 ([facility]) atorvastatin 80 MG Oral Tablet Atorvastatin Calcium 80 MG Atorvastatin Calcium 80 MG 09/20/2019 12:00:00 AM EDT 1.0 {tablet} activ e Atorvastatin Calcium 80 MG eCW1 ([facility]) atorvastatin 80 MG Oral Tablet Atorvastatin Calcium 80 MG Atorvastatin Calcium 80 MG 09/20/2019 12:00:00 AM EDT 1.0 {tablet} activ e Atorvastatin Calcium 80 MG eCW1 ([facility]) atorvastatin 80 MG Oral Tablet Atorvastatin Calcium 80 MG Atorvastatin Calcium 80 MG 09/20/2019 12:00:00 AM EDT 1.0 {tablet} activ e Atorvastatin Calcium 80 MG eCW1 ([facility]) atorvastatin 80 MG Oral Tablet Atorvastatin Calcium 80 MG Atorvastatin Calcium 80 MG 09/20/2019 12:00:00 AM EDT 1.0 {tablet} activ e Atorvastatin Calcium 80 MG eCW1 ([facility]) MetFORMIN HCl ER 750 MG MetFORMIN HCl ER 750 MG 09/20/2019 12:00:00 AM EDT 1.0 {tablet_with_evening_meal} suspended Me tFORMIN HCl ER 750 MG eCW1 ([facility]) atorvastatin 80 MG Oral Tablet Atorvastatin Calcium 80 MG Atorvastatin Calcium 80 MG 09/20/2019 12:00:00 AM EDT 1.0 {tablet} activ e Atorvastatin Calcium 80 MG eCW1 ([facility]) atorvastatin 80 MG Oral Tablet Atorvastatin Calcium 80 MG Atorvastatin Calcium 80 MG 09/20/2019 12:00:00 AM EDT 1.0 {tablet} suspe nded Atorvastatin Calcium 80 MG eCW1 ([facility]) 750 mg 09/20/2019 12:00:00 AM EDT tablet extended release 24 hr 180 TAKE ONE TABLET BY MOUTH TWICE A DAY TAKE ONE TABLET BY MOUTH TWICE A DAY SOLD: 09/20/2019 [facility] MetFORMIN HCl ER 750 MG MetFORMIN HCl ER 750 MG 09/20/2019 12:00:00 AM EDT 1.0 {tablet_with_evening_meal} active MetF ORMIN HCl ER 750 MG eCW1 ([facility]) 24 HR Metformin hydrochloride 750 MG Ext ended Release Oral Tablet MetFORMIN HCl ER 750 MG MetFORMIN HCl ER 750 MG 09/20/2019 12:00:00 AM EDT 1.0 {tablet_with_evening_meal} active MetFO RMIN HCl ER 750 MG eCW1 ([facility]) atorvastatin 80 MG Oral Tablet Atorvastatin Calcium 80 MG Atorvastatin Calcium 80 MG 09/20/2019 12:00:00 AM EDT 1.0 {tablet} activ e Atorvastatin Calcium 80 MG eCW1 ([facility]) atorvastatin 80 MG Oral Tablet atorvastatin (LIPITOR) 80 MG tablet atorvastatin (LIPITOR) 80 MG tablet 09/20/2019 12:00:00 AM EDT 80 mg Oral aborted Take 80 mg by mouth daily [facility] atorvastatin 80 MG Oral Tablet Atorvastatin Calcium 80 MG Atorvastatin Calcium 80 MG 09/20/2019 12:00:00 AM EDT 1.0 {tablet} activ e Atorvastatin Calcium 80 MG eCW1 ([facility]) Potassium Chloride 10 MEQ Extended Release Oral Tablet POTAS SIUM CHLORIDE 09/16/2019 12:00:00 AM EDT tablet extended release 240 TAKE FOUR TABLETS BY MOUTH TWICE A DAY TAKE FOUR TABLETS BY MOUTH TWICE A DAY SOLD: 09/16/2019 [facility] Dexamethasone 4 MG Oral Tablet dexamethasone (DECADRON ) 4 MG tablet dexamethasone (DECADRON) 4 MG tablet 08/17/2019 12:00:00 AM EDT aborted [facility] 4 mg 08/17/2019 12:00:00 AM EDT [...] A DAY [REFLUX DIFFICULT SWALLOWING] SOLD: 10/10/2019 [facility] pantoprazole 40 MG Delayed Release Oral Tablet PANTOPRAZOLE SODIUM 08/14/2019 12:00:00 AM EDT tablet,delayed release (DR/EC) 60 T MATTI ONE TABLET BY MOUTH TWICE A DAY [REFLUX DIFFICULT SWALLOWING] TAKE ONE TABLET BY MOUTH TWICE A DAY [REFLUX DIFFICULT SWALLOWING] SOLD: 12/27/2019 [facility] pomalidomide 2 MG Oral Capsule Pomalidomide (POMALYST) 2 MG CAPS Pomalidomide (POMALYST) 2 MG CAPS 08/01/2019 12:00:00 AM EDT ab [facility] Misc. Devices - UNK 07/17/2019 12:00:00 AM EDT active Misc. Devices - eCW1 ([facility]) Misc. Devices - UNK 07/17/2019 12:00:00 AM EDT active Misc. Devices - eCW1 ([facility]) Misc. Devices - UNK 07/17/2019 12:00:00 AM EDT active Misc. Devices - eCW1 ([facility]) Misc. Devices - UNK 07/17/2019 12:00:00 AM EDT suspended Misc. Devices - eCW1 ([facility]) Misc. Devices - UNK 07/17/2019 12:00:00 AM EDT active Misc. Devices - eCW1 ([facility]) Misc. Devices - UNK 07/17/2019 12:00:00 AM EDT active Misc. Devices - eCW1 ([facility]) Misc. Devices - UNK 07/17/2019 12:00:00 AM EDT active Misc. Devices - eCW1 ([facility]) Misc. Devices - UNK 07/17/2019 12:00:00 AM EDT ac tive as directed eCW1 ([facility]) Misc. Devices - UNK 07/17/2019 12:00:00 AM EDT active Misc. Devices - eCW1 ([facility]) Misc. Devices - UNK 07/17/2019 12:00:00 AM EDT active Misc. Devices - eCW1 ([facility]) Misc. Devices - UNK 07/17/2019 12:00:00 AM EDT active Misc. Devices - eCW1 ([facility]) 50 mg 07/15/2019 12:00:00 AM EDT tablet [...] EVERY 6HRS NEEDED FOR PAIN MAX 4TABS/DAY [facility] Acyclovir 400 MG Oral Tablet acyclovir (ZOVIRAX) 400 M G tablet acyclovir (ZOVIRAX) 400 MG tablet 07/13/2019 12:00:00 AM EDT 400 mg Oral aborted Take 400 mg by mouth 2 (two) times a day [facility] 81 mg 07/08/2019 12:00:00 AM EDT [...] 12:00:00 AM EST ORAL active M EDENT ([facility], ) Magnesium Hydroxide 80 MG/ML Oral Suspension Milk Of Magnesi a 03/26/2019 12:00:00 AM EST ORAL active M EDENT ([facility], ) POLYETHYLENE GLYCOL 3350 105 MG/ML / Pot assium Chloride 0.41307 MEQ/ML / Sodium Bicarbonate 0.017 MEQ/ML / Sodium Chloride 0.0479 MEQ/ML Oral Solution [TriLyte] Trilyte 03/26/2019 12:00:00 AM EST active MEDENT ([facility], ) 40 mg 03/26/2019 12:00:00 AM [...] Once, Mon03/01/19 at 1545, For 1 dose [facility] Medication administered onsite 100 mg 02/28/2019 [...] ST active 1 tablet at bedtime eCW1 ([facility]) Famotidine 40 MG Oral Tablet Famotidine 40 MG 02/19/2019 12:00:[address] active 1 tablet at bedtime eCW1 ([facility]) 1 gram 02/14/2019 12:00:00 AM EST tablet [...] aborted Take 100 mg by mouth daily [facility] Potassium Chloride 10 MEQ Extended Relea se Oral Capsule potassium chloride (MICRO-K) 10 MEQ CR capsule potassium chloride (MICRO-K) 10 MEQ CR capsule 11/18/2015 12:00:00 AM EDT 10 meq Oral aborted Take 10 mEq by mouth 2 (two) times a day [facility] Furosemide 40 MG Oral Tablet furosemide (LASIX) 40 MG tablet furosemide (LASIX) 40 MG tablet 10/22/2008 12:00:00 AM EDT Oral aborted Take by mouth [facility] Colchicine 0.6 MG Oral Tablet colchicine 0.6 MG tablet colch icine 0.6 MG tablet aborted colchicine 0.6 m g tabs [facility] Cimetidine 800 MG Oral Tablet cimetidine 800 mg tablet cimet idine 800 mg tablet completed Cimetidine 800 MG Oral Tablet KIMANI ([facility]) Insurance Providers Payer name Policy type / Coverage type Policy ID Covered republican ID Covered republican's relationship to ling Policy Ling Plan Information EMEDNY [id number] SP [id number] [facility] [id number] SP [id number] [facility] [id number] SP [id number] MEDICAID [id number] [facility] MEDICARE [id number] [facility](MCAID) O [id number] S [id number] MEDICAID M [id number] S [id number] [facility] MEDICARE [id number] Lianne [id number] MEDICAID [id number] Lianne [id number] UNHC MEDICARE COMPLETE -PHYS [id number] 18 [id number] UNHC MEDICARE COMPLETE - O/P [id number] 18 [id number] UNHC MEDICARE COMPLETE I/P [id number] 18 [id number] MEDICARE [id number] SP [id number] [facility] MEDICAID [id number] Lianne [id number] 27 [facility] MEDICARE DUAL G [id number] Self [id number] MEDICAID [id number] Self [id number] ARTURO I [id number] Self [id number] MEDICAID [id number] SP [id number] MEDICARE COMPLETE [id number] SP [id number] [facility]CAID) O [id number] S [id number] MEDICAID [id number] SP [id number] [facility] MCRHMO [id number] SP [id number] [place] MEDICARE [id number] SP [id number] UHC UNITED MEDICARE DUAL G [id number] Self [id number] ANSI-Not a Secondary Insurance [id number] ANSI-Medicaid [id number] ANSI-Medicare Part B [id number] ANSI-Not a Secondary Insurance [id number] ANSI-Medicaid [id number] ANSI-Medicare Part B [id number] ANSI-Medicare Part B [id number] ANSI-Medicaid [id number] ANSI-Not a Secondary Insurance [id number] ANSI-Medicaid [id number] ANSI-Medicare Part B [id number] ANSI-Not a Secondary Insurance [id number] ANSI-Medicaid [id number] ANSI-Not a Secondary Insurance [id number] ANSI-Medicare Part B [id number] ANSI-Not a Secondary Insurance [id number] ANSI-Medicare Part B [id number] ANSI-Medicaid [id number] ANSI-Medicare Part B [id number] ANSI-Not a Secondary Insurance [id number] ANSI-Medicaid [id number] ANSI-Not a Secondary Insurance [id number] ANSI-Medicare Part B [id number] ANSI-Medicaid [id number] ANSI-Not a Secondary Insurance [id number] ANSI-Medicare Part B [id number] ANSI-Medicaid [id number] ANSI-Not a Secondary Insurance [id number] ANSI-Medicare Part B [id number] ANSI-Medicaid [id number] ANSI-Not a Secondary Insurance [id number] ANSI-Medicare Part B [id number] ANSI-Medicaid [id number] MEDICAID [id number] SP [id number] [facility] [id number] SP [id number] UHC UNITED MEDICARE COMPLETE G [id number] Self [id number] Medicaid [place] Medig[place] Part B [id number] Self [id number] [place] Medicare Primary [id number] Self [id number] [place] Medigap Part B [id number] Self [id number] [employer]/Medicare Commercial [id number] Self [id number] Medicaid [place] [id number] Self [id number] ANSI-Medicare Part B [id number] ANSI-Not a Secondary Insurance [id number] ANSI-Medicaid [id number] MEDICARE [id number] SP [id number] ANSI-Medicaid [id number] ANSI-Medicare Part B [id number] ANSI-Medicare Part B [id number] ANSI-Medicare Part B [id number] ANSI-Medicare Part B [id number] ANSI-Medicaid [id number] ANSI-Medicare Part B [id number] ANSI-Medicaid [id number] ANSI-Medicare Part B [id number] ANSI-Medicaid [id number] ANSI-Medicare Part B [id number] ANSI-Medicare Part B [id number] ANSI-Medicare Part B [id number] ANSI-Medicaid [id number] ANSI-Medicare Part B [id number] ANSI-Medicare Part B [id number] ANSI-Medicaid [id number] ANSI-Medicare Part B [id number] ANSI-Medicaid [id number] ANSI-Medicare Part B [id number] ANSI-Medicare Part B [id number] [facility] O [id number] S [id number] ANSI-Medicare Part B [id number] ANSI-Medicare Part B [id number] ANSI-Medicaid [id number] ANSI-Medicaid [id number] ANSI-Medicare Part B [id number] ANSI-Medicare Part B [id number] [place] [id number] SP [id number] MEDICARE [id number] SP [id number] A ANSI-Medicaid [id number] ANSI-Medicare Part B [id number] ANSI-Medicare Part B [id number] MEDICARE C [id number] S [id number] MEDICARE C [id number] S [id number] A ANSI-Medicaid [id number] ANSI-Medicare Part B [id number] ANSI-Medicare Part B [id number] ANSI-Medicare Part B [id number] ANSI-Medicare Part B [id number] ANSI-Medicaid [id number] [facility]-Medicaid [id number] [facility] [id number] [facility] [id number] [place] [id number] SP [id number] MEDICARE COMPLETE [id number] SP [id number] MEDICARE [id number] SP [id number] MEDICARE COMPLETE [id number] SP [id number] [place] Part [place] [id number] Self [id number] [facility] [id number] Self [id number] Medicare - [place] Medicare Primary [id number] Self [id number] [place] Part [place] [id number] Self [id number] [employer] Commercial [id number] Self [id number] [facility] Medicare Commercial [id number] Self [id number] MEDICARE COMPLETE [id number] SP [id number] [place] [id number] Self [id number] [facility] Medicare Commercial [id number] Self [id number] MEDICARE COMPLETE [id number] SP [id number] [place] Part [place] [id number] Self [id number] [facility]/ Health Care Options Medigap Part B [id number] Self [id number] Medicare - [place] Medicare Primary [id number] Self [id number] [place] Part B [id number] Self [id number] MEDICAID [id number] SP [id number] MEDICARE COMPLETE [id number] SP [id number] [facility] MEDICARE COMPLETE G [id number] Self [id number] MEDICARE COMPLETE [id number] SP [id number] [facility] [place] [id number] SP [id number] [place] [id number] [place] Commercial [id number] Self [id number] MEDICARE COMPLETE [id number] SP [id number] MEDICARE COMPLETE-[facility] O [id number] S [id number] [employer] (Medicare) Medigap Part B Self [place] Healthcare ([facility]) Commercial Self [facility] [id number] SP [id number] MEDICARE [id number] SP [id number] A MEDICARE COMPLETE [id number] SP [id number] MEDICARE A [id number] Self [id number] A MEDICAID W [id number] MEDICARE OUTPATIENT M [id number] S [id number] A [id number] Problems, Conditions, and Diagnoses Code Display Name Description Problem Type Effective Dates Data Source(s) F51.04 [id number] Psychophysiologic insomnia Problem 0 12:00:00 AM EDT eCW1 ([facility]) C90.00 [id number] Multiple myeloma not having achieved grant ssion Problem 09/19/2019 12:00:00 AM EDT eCW1 ([facility]) 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 Positive Quant iFERON-TB Gold test [id number] 07/18/2019 12:00:00 AM EDT [facility] M10.9 Gout Gout [id number] 07/18/2019 12:00:00 AM ED T [facility] G44.209 [id number] Tension headache Problem 04/15/2019 12:00:00 AM EST eCW1 ([facility]) G44.209 [id number] Tension headache Problem 04/15/2019 12:00:00 AM EST eCW1 ([facility]) E78.2 Mixed hyperlipidemia Mixed hyperlipidemia Diagnosis 04/08/2020 02:03:57 PM EST [facility] I10 Essential (primary) hypertension Essential (primary) h ypertension Diagnosis 04/08/2020 02:03:57 PM [facility] I35.0 Nonrheumatic aortic (valve) stenosis Nonrheumati c aortic (valve) stenosis Diagnosis 04/08/2020 02:03:57 PM [facility] 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 Atherosclerotic heart disease of k[place] Diagnosis 04/08/2020 02:03:57 PM [facility] R531 Weakness Weakness Diagnosis 03/06/2020 10:10:00 AM ES [facility] N35105 Other pancytopenia Other pancytopenia Diagnosis 10:10:00 AM [facility] Z5111 Encounter for antineoplastic chemotherap y Encounter for antineoplastic chemotherapy Diagnosis 03/04/2020 12:24:00 PM [facility] C9000 Multiple myeloma not having achieved rem ission Multiple myeloma not having achieved remission Diagnosis 03/04/2020 12:24:00 PM [facility] R7303 Prediabetes Prediabetes Diagnosis 03/04/2020 12:24:00 PM [facility] I10 Essential (primary) hypertension Essential (primary) h ypertension Diagnosis 03/04/2020 12:24:00 PM [facility] E876 Hypokalemia Hypokalemia Diagnosis 03/04/2020 12:24:00 PM [facility] E8342 Hypomagnesemia Hypomagnesemia Diagnosis 03/04/2020 12:24: 00 PM [facility] R197 Diarrhea, unspecified Diarrhea, unspecified Diagnosis 03/04/2020 12:24:00 PM [facility] Z1159 Encounter for screening for other viral diseases Encounter for screening for other viral diseases Diagnosis 03/04/2020 12:24:00 PM [facility] R112 Nausea with vomiting, unspecified Nausea with vo miting, unspecified Diagnosis 03/04/2020 12:24:00 PM [facility] E860 Dehydration Dehydration Diagnosis 03/04/2020 12:24:00 PM [facility] H53.2 Diplopia Diplopia Diagnosis 10/07/2019 03:58:21 PM ED [facility] M10.9 Gout, unspecified Gout, unspecified Diagnosis 04/12/2019 11:36:51 AM [facility] R76.12 Nonspecific reaction to cell mediated immunity measurement of gamma interferon antigen response without active tuberculosis Nonspecific reaction to cell mediated immunity measurement of gamma interferon antigen response without active tuberculosis Diagnosis 04/12/2019 11:36:51 AM [facility] C90.00 Multiple myeloma not having achieved rem ission Multiple myeloma not having achieved remission Diagnosis 03/20/2019 01:25:42 PM [facility] C90.0 C90.0 Diagnosis 03/20/2019 01:25:42 PM [facility] Surgeries/Procedures Procedure Description Date Indications Data Source(s) ECG ROUTINE ECG W/LEAST 12 LDS W/I&R POCT AMB EKG Routine 04/08/2020 3:07 PM EST Atherosclerosis of kashia coronary artery of kashia heart without angina pectoris 04/08/2020 08:07:00 PM EST Atheroscleros is of kashia coronary artery of kashia heart without angina pectoris [facility] Atherosclerosis of kashia coronary arter y of kashia heart without angina pectoris Computerized Tomography (CT Scan) of Head Computerized Tomography (CT Scan) of Head 03/10/2020 12:00:00 AM [facility] Plain Radiography of Chest Plain Radiography of Chest 2019 12:00:00 AM [facility] Introduction of Electrolytic and Water B alance Substance into Peripheral Vein, Percutaneous Approach Introduction of Electrolytic and Water B alance Substance into Peripheral Vein, Percutaneous Approach 03/06/2020 12:00:00 AM [facility] Monitoring of Cardiac Electrical Activity, External Ap proach Monitoring of Cardiac Electrical Activity, External Approach 03/06/2020 12:00:00 AM [facility] Immunization: Flublok Quadrivalent (18 years & older) 0.5mL IM (Influenza) 12/20/2019 12:00:00 AM EDT eCW1 ([facility]) Endoscopy Upper GI Biopsy 10/04/2019 12:00:00 AM EDT MEDENT ([facility]) Colonoscopy W/ Poly 10/04/2019 12:00:00 AM EDT MEDENT ([facility]) Office Visit, Est Pt., Level 4 PC 07/17/2019 12:00:00 AM EDT eCW1 ([facility]) Office Visit, Est Pt., Level 4 FC 07/17/2019 12:00:00 AM EDT eCW1 ([facility]) Medicare, Tricare, [place], PC-INTERPRETATION AND REPORT 07/17/2019 12:00:00 AM EDT eCW1 ([facility]) Medicare, Tricare, [place], -ELECTROCARDIOGRAM, TRACING ON LY 07/17/2019 12:00:00 AM EDT eCW1 ([facility]) PHYSICIAN TELEPHONE EVALUATION 11-20 MIN 06/10/2019 12 :00:00 AM EDT eCW1 ([facility]) FLOW CYTOMETRY CELL CYCLE/DNA SHIMA LEUKEMIA / LYMPHOM A PHENOTYPE, PERIPHERAL BLOOD Routine 03/20/2019 10:25 AM EST 03/20/2019 03:25 :00 PM [facility] Endoscopy Upper GI Biopsy 03/11/2019 12:00:00 AM EST SWAPNA ([facility]) Office Visit, Est Pt., Level 2 FC 03/08/2019 12:00:00 AM EST eCW1 ([facility]) Office Visit, Est Pt., Level 3 PC 03/08/2019 12:00:00 AM EST eCW1 ([facility]) Results ID Date Data Source [id number] 03/24/2020 06:18:00 PM EST [facility] Name Value Range Interpretation Code Description Data Miladys rce(s) Supporting Document(s) SARS coronavirus 2 RNA [Presence] in Res piratory specimen by NELLY with probe detection NEGATIVE [facility] This lab was ordered by [facility] a nd reported by [facility]. ID Date Data Source [id number] 03/12/2020 07:14:00 AM EST [facility] Name Value Range Interpretation Code Description Data Miladys rce(s) Supporting Document(s) CBC W/AUTOMATED DIFF [facility] COMPLETE BLOOD COUNT Leukocytes [#/volume] in Blood by Automated count 2.4 10^3/uL 4.2 - 1 1.0 L [facility] Erythrocytes [#/volume] in Blood by Automated count 2.66 10^6/uL 4. 20 - 5.40 L [facility] Hemoglobin [Mass/volume] in Blood 8.9 g/dL 12.0 - 16.0 L [facility] Hematocrit [Volume Fraction] of Blood by Automated count 26.3 % 3 7.0 - 47.0 L [facility] Erythrocyte mean corpuscular volume [Entitic volume] by Auto mated count 98.9 fL 81.0 - 101 [facility] Erythrocyte mean corpuscular hemoglobin [Entitic mass] by Automated count 33.5 pg 27.0 - 34.0 [facility] Erythrocyte mean corpuscular hemoglobin concentration [Mass/volume] by Automated count 33.8 g/dL 31.0 - 36.0 [facility] Erythrocyte distribution width [Ratio] by Automated count 17.3 % 11.5 - 14.5 H [facility] Platelets [#/volume] in Blood by Automated count 121 10^3/uL 150 - 45 0 L [facility] Platelet mean volume [Entitic volume] in Blood by Automated count 10.1 fL 7.4 - 10.4 [facility] Neutrophils/100 leukocytes in Blood by Automated count 72.5 % 37. 0 - 80.0 [facility] Lymphocytes/100 leukocytes in Blood by Manual count 21.6 % 25.0 - 40.0 L [facility] Monocytes/100 leukocytes in Blood by Automated count 4.2 % 3.0 - 8.0 [facility] Eosinophils/100 leukocytes in Blood by Automated count 0.0 % 0.0 - 7.0 [facility] 0.4 %IG 1.3 % 0.0 - 0.0 [facility] 0.0 % 0.0 - 0.0 [facility] al Neutrophils [#/volume] in Blood by Automated count 1.71 10^3/uL 2.00 - 6.90 L [facility] Lymphocytes [#/volume] in Blood by Automated count 0.51 10^3/uL 0.60 - 3.40 L [facility] Monocytes [#/volume] in Blood by Automated count 0.10 10^3/uL 0.00 - 0.90 [facility] Eosinophils [#/volume] in Blood by Automated count 0.00 10^3/uL 0.00 - 0.70 [facility] Basophils [#/volume] in Blood by Automated count 0.01 10^3/uL 0.00 - 0.20 [facility] #IG 0.03 10^3/uL 0.00 - 0.10 [facility] #NRBC 0.00 10^3/uL 0.00 - 0.00 [facility] MANUAL DIFF SEE BELOW [facility] ital Segmented neutrophils/100 leukocytes in Blood by Manual count 78 % 37 - 80 [facility] BAND 1 % 0 - 5 [facility] %LYMPH 18 % 25 - 40 L [facility] %MONO 2 % 3 - 8 L [facility] 1 RBC MORPH [facility] BELOW [facility] Anisocytosis [Presence] in Blood by Light microscopy 1+ NATASHA L: NONE SEEN A [facility] Macrocytes [Presence] in Blood by Light microscopy 1+ NORMAL: NONE SEEN A [facility] Poikilocytosis [Presence] in Blood by Light microscopy 1+ NOR MAL: NONE SEEN A [facility] Polychromasia [Presence] in Blood by Light microscopy 1+ NORM AL: NONE SEEN A [facility] { SICKLE CELL (NORMAL: NONE SEEN ) Ovalocytes [Presence] in Blood by Light microscopy 1+ NORMAL: NONE SEEN A [facility] Platelet adequacy [Presence] in Blood by Light microscopy DE CREASED NORMAL: NORMAL A [facility] COMMENT: ID Date Data Source [id number] 03/12/2020 06:43:00 AM [facility] Name Value Range Interpretation Code Description Data Miladys rce(s) Supporting Document(s) Magnesium [Mass/volume] in Serum or Plasma 1.5 MG/DL 1.7 - 2.2 L [facility] ID Date Data Source [id number] 03/12/2020 06:43:00 AM [facility] Name Value Range Interpretation Code Description Data Miladys rce(s) Supporting Document(s) COMPREHENSIVE METABOLIC PANEL [facility] COMPREHENSIVE METABOLIC PANEL Sodium [Moles/volume] in Serum or Plasma 139 mEq/L 134 - 153 [facility] Potassium [Moles/volume] in Serum or Plasma 4.8 mEq/L 3.6 - 5.0 [facility] Chloride [Moles/volume] in Serum or Plasma 104 mEq/L 98 - 107 [facility] Carbon dioxide, total [Moles/volume] in Serum or Plasma 27 MEQ/L 22 - 30 [facility] Glucose [Mass/volume] in Serum or Plasma 142 MG/DL 65 - 110 H [facility] BUN 8 MG/DL 7 - 21 [facility] al Creatinine [Mass/volume] in Serum or Plasma 0.5 MG/DL 0.7 - 1.5 L [facility] BUN/CREAT 16 8 - 27 [facility] al Protein [Mass/volume] in Serum or Plasma 5.4 G/DL 6.3 - 8.2 L [facility] Albumin [Mass/volume] in Serum or Plasma 3.5 G/DL 3.9 - 5.0 L [facility] Globulin [Mass/volume] in Serum by calculation 1.9 GM/DL 2.4 - 3.2 L [facility] A/G RATIO 1.8 0.8 - 2.0 [facility] Calcium [Mass/volume] in Serum or Plasma 8.5 MG/DL 8.4 - 10.2 [facility] Bilirubin.total [Mass/volume] in Serum or Plasma 1.0 MG/DL 0.2 - 1.3 [facility] Alkaline phosphatase [Enzymatic activity/volume] in Serum or Plasma 88 U/L 38 - 126 [facility] Aspartate aminotransferase [Enzymatic activity/volume] in Se rum or Plasma 9 U/L 5 - 40 [facility] Alanine aminotransferase [Enzymatic activity/volume] in Seru m or Plasma 7 U/L 7 - 56 [facility] Anion gap 3 in Serum or Plasma 8.0 mmol/L 8.0 - 16.0 [facility] AGE 64 yrs [facility] NON-AA GFR >60 mL/min [facility] ital AFR AMER GFR >60 [facility] Male GFR In terprentation [...] >32 mL/min Normal ID Date Data Source [id number] 03/11/2020 10:52:00 AM EST [facility] [address] [place] [address] PHONE: [phone] FAX: [phone] Name .................. : GAMA Nobles Acct Number.................. : [id number] ROOM. ................. : 103-1 MR Number ................... : [id number] Stay type ............. : I/P Discharge Date......... ... : Admit Date ......... : 1 05/05/19 Admit Phys .................... : RACHEL Date of ....... : 1955 Family Phys ................... : NON STAFF Phone .................. : [phone] Age ................................ : 64 Film# .................. .:[id number] Sex ................................. : F Unsigned transcriptions are preliminary reports and do not represent a medical or legal document CT HEAD W/O CONTRAST [id number] COMPLETE:03/10/20 17:58 1109 (REASON FOR PROCEDURE :H [...] 03/10/20 22:23, Dictation Date: Copy for: 002 [facility] Copy for: 710 [facility] REC Page 1 of 1 Name Value Range Interpretation Code Description Data Miladys rce(s) Supporting Document(s) ID Date Data Source [id number] 03/13/2020 08:14:00 PM [facility] Name Value Range Interpretation Code Description Data Miladys rce(s) Supporting Document(s) Cytomegalovirus DNA [log units/volume] ( viral load) in Plasma by Probe and target amplification method COMMENT ojg87NM/mL [facility] Unable to calculate result since non-num rickey result obtained forcomponent test. Cytomegalovirus DNA [Units/volume] (sohail l load) in Plasma by Probe and target amplification method Negative IU/mL Negative [facility] No CMV DNA detected.The quantitative ran ge of this assay is 200 to 1 million IU/mL.This test was developed and its performance characteristics determinedby [employer]. It has not been cleared or approved by the Food and DrugAdministration. The FDA has determined that such clearance orapproval is not necessary. ID Date Data Source [id number] 03/11/2020 06:59:00 AM EST [facility] Name Value Range Interpretation Code Description Data Miladys rce(s) Supporting Document(s) CBC W/AUTOMATED DIFF [facility] COMPLETE BLOOD COUNT Leukocytes [#/volume] in Blood by Automated count 2.4 10^3/uL 4.2 - 1 1.0 L [facility] Erythrocytes [#/volume] in Blood by Automated count 2.51 10^6/uL 4. 20 - 5.40 L [facility] Hemoglobin [Mass/volume] in Blood 8.4 g/dL 12.0 - 16.0 L [facility] Hematocrit [Volume Fraction] of Blood by Automated count 25.3 % 3 7.0 - 47.0 L [facility] Erythrocyte mean corpuscular volume [Entitic volume] b y Automated count 100.8 fL 81.0 - 101 [facility] Erythrocyte mean corpuscular hemoglobin [Entitic mass] by Automated count 33.5 pg 27.0 - 34.0 [facility] Erythrocyte mean corpuscular hemoglobin concentration [Mass/volume] by Automated count 33.2 g/dL 31.0 - 36.0 [facility] Erythrocyte distribution width [Ratio] by Automated count 17.9 % 11.5 - 14.5 H [facility] Platelets [#/volume] in Blood by Automated count 101 10^3/uL 150 - 45 0 L [facility] Platelet mean volume [Entitic volume] in Blood by Automated count 10.8 fL 7.4 - 10.4 H [facility] Neutrophils/100 leukocytes in Blood by Automated count 58.0 % 37. 0 - 80.0 [facility] Lymphocytes/100 leukocytes in Blood by Manual count 26.8 % 25.0 - 40.0 [facility] Monocytes/100 leukocytes in Blood by Automated count 10.6 % 3.0 - 8.0 H [facility] Eosinophils/100 leukocytes in Blood by Automated count 3.8 % 0.0 - 7.0 [facility] Basophils/100 leukocytes in Blood by Automated count 0.4 % 0.0 - 2.5 [facility] %IG 0.4 % 0.0 - 0.0 H [facility] %NRBC 0.0 % 0.0 - 0.0 [facility] Neutrophils [#/volume] in Blood by Automated count 1.36 10^3/uL 2.00 - 6.90 L [facility] Lymphocytes [#/volume] in Blood by Automated count 0.63 10^3/uL 0.60 - 3.40 [facility] Monocytes [#/volume] in Blood by Automated count 0.25 10^3/uL 0.00 - 0.90 [facility] Eosinophils [#/volume] in Blood by Automated count 0.09 10^3/uL 0.00 - 0.70 [facility] Basophils [#/volume] in Blood by Automated count 0.01 10^3/uL 0.00 - 0.20 [facility] #IG 0.01 10^3/uL 0.00 - 0.10 [facility] #NRBC 0.00 10^3/uL 0.00 - 0.00 [facility] MANUAL DIFF SEE BELOW [facility] ital Segmented neutrophils/100 leukocytes in Blood by Manual count 65 % 37 - 80 [facility] %LYMPH 20 % 25 - 40 L [facility] %MONO 9 % 3 - 8 H [facility] %EOS 6 % 0 - 7 [facility] RBC MORPH NOT INDICATED [facility] ID Date Data Source [id number] 03/11/2020 06:48:00 AM EST [facility] Name Value Range Interpretation Code Description Data Miladys rce(s) Supporting Document(s) Magnesium [Mass/volume] in Serum or Plasma 1.5 MG/DL 1.7 - 2.2 L [facility] ID Date Data Source [id number] 03/11/2020 06:48:00 AM EST [facility] Name Value Range Interpretation Code Description Data [facility](s) Supporting Document(s) COMPREHENSIVE METABOLIC PANEL [facility] COMPREHENSIVE METABOLIC PANEL Sodium [Moles/volume] in Serum or Plasma 139 mEq/L 134 - 153 [facility] Potassium [Moles/volume] in Serum or Plasma 4.1 mEq/L 3.6 - 5.0 [facility] Chloride [Moles/volume] in Serum or Plasma 104 mEq/L 98 - 107 [facility] Carbon dioxide, total [Moles/volume] in Serum or Plasma 29 MEQ/L 22 - 30 [facility] Glucose [Mass/volume] in Serum or Plasma 85 MG/DL 65 - 110 [facility] BUN 5 MG/DL 7 - 21 L [facility] Creatinine [Mass/volume] in Serum or Plasma 0.6 MG/DL 0.7 - 1.5 L [facility] BUN/CREAT 8 8 - 27 [facility] al Protein [Mass/volume] in Serum or Plasma 5.1 G/DL 6.3 - 8.2 L [facility] Albumin [Mass/volume] in Serum or Plasma 3.1 G/DL 3.9 - 5.0 L [facility] Globulin [Mass/volume] in Serum by calculation 2.0 GM/DL 2.4 - 3.2 L [facility] A/G RATIO 1.6 0.8 - 2.0 [facility] al Calcium [Mass/volume] in Serum or Plasma 8.7 MG/DL 8.4 - 10.2 [facility] Bilirubin.total [Mass/volume] in Serum or Plasma 0.9 MG/DL 0.2 - 1.3 [facility] Alkaline phosphatase [Enzymatic activity/volume] in Serum or Plasma 83 U/L 38 - 126 [facility] Aspartate aminotransferase [Enzymatic activity/volume] in Se rum or Plasma 8 U/L 5 - 40 [facility] Alanine aminotransferase [Enzymatic activity/volume] in Seru m or Plasma 8 U/L 7 - 56 [facility] Anion gap 3 in Serum or Plasma 6.0 mmol/L 8.0 - 16.0 L [facility] AGE 64 yrs [facility] al NON-AA GFR >60 mL/min [facility] ital AFR AMER GFR >60 [facility] Male GFR In terprentation [...] >32 mL/min Normal ID Date Data Source [id number] 03/10/2020 07:25:00 AM EST [facility] Name Value Range Interpretation Code Description Data Miladys rce(s) Supporting Document(s) COMPREHENSIVE METABOLIC PANEL [facility] COMPREHENSIVE METABOLIC PANEL Sodium [Moles/volume] in Serum or Plasma 141 mEq/L 134 - 153 [facility] Potassium [Moles/volume] in Serum or Plasma 4.3 mEq/L 3.6 - 5.0 [facility] Chloride [Moles/volume] in Serum or Plasma 105 mEq/L 98 - 107 [facility] Carbon dioxide, total [Moles/volume] in Serum or Plasma 29 MEQ/L 22 - 30 [facility] Glucose [Mass/volume] in Serum or Plasma 103 MG/DL 65 - 110 [facility] BUN 6 MG/DL 7 - 21 L [facility] al Creatinine [Mass/volume] in Serum or Plasma 0.5 MG/DL 0.7 - 1.5 L [facility] BUN/CREAT 12 8 - 27 [facility] Protein [Mass/volume] in Serum or Plasma 5.4 G/DL 6.3 - 8.2 L [facility] Albumin [Mass/volume] in Serum or Plasma 3.4 G/DL 3.9 - 5.0 L [facility] Globulin [Mass/volume] in Serum by calculation 2.0 GM/DL 2.4 - 3.2 L [facility] A/G RATIO 1.7 0.8 - 2.0 [facility] al Calcium [Mass/volume] in Serum or Plasma 8.8 MG/DL 8.4 - 10.2 [facility] Bilirubin.total [Mass/volume] in Serum or Plasma 0.7 MG/DL 0.2 - 1.3 [facility] Alkaline phosphatase [Enzymatic activity/volume] in Serum or Plasma 79 U/L 38 - 126 [facility] Aspartate aminotransferase [Enzymatic activity/volume] in Se rum or Plasma 9 U/L 5 - 40 [facility] Alanine aminotransferase [Enzymatic activity/volume] in Seru m or Plasma 8 U/L 7 - 56 [facility] Anion gap 3 in Serum or Plasma 7.0 mmol/L 8.0 - 16.0 L [facility] AGE 64 yrs [facility] al NON-AA GFR >60 mL/min [facility] ital AFR AMER GFR >60 [facility] pital Male GFR In terprentation 20-49 [...] >32 mL/min Normal ID Date Data Source [id number] 03/10/2020 07:25:00 AM [facility] Name Value Range Interpretation Code Description Data Miladys rce(s) Supporting Document(s) Magnesium [Mass/volume] in Serum or Plasma 1.4 MG/DL 1.7 - 2.2 L [facility] ID Date Data Source [id number] 03/10/2020 07:20:00 AM [facility] Name Value Range Interpretation Code Description Data Miladys rce(s) Supporting Document(s) CBC W/AUTOMATED DIFF [facility] COMPLETE BLOOD COUNT Leukocytes [#/volume] in Blood by Automated count 2.7 10^3/uL 4.2 - 1 1.0 L [facility] Erythrocytes [#/volume] in Blood by Automated count 2.62 10^6/uL 4. 20 - 5.40 L [facility] Hemoglobin [Mass/volume] in Blood 8.9 g/dL 12.0 - 16.0 L [facility] Hematocrit [Volume Fraction] of Blood by Automated count 26.4 % 3 7.0 - 47.0 L [facility] Erythrocyte mean corpuscular volume [Entitic volume] b y Automated count 100.8 fL 81.0 - 101 [facility] Erythrocyte mean corpuscular hemoglobin [Entitic mass] by Automated count 34.0 pg 27.0 - 34.0 [facility] Erythrocyte mean corpuscular hemoglobin concentration [Mass/volume] by Automated count 33.7 g/dL 31.0 - 36.0 [facility] Erythrocyte distribution width [Ratio] by Automated count 18.2 % 11.5 - 14.5 H [facility] Platelets [#/volume] in Blood by Automated count 103 10^3/uL 150 - 45 0 L [facility] Platelet mean volume [Entitic volume] in Blood by Automated count 10.2 fL 7.4 - 10.4 [facility] [facility] Neutrophils/100 leukocytes in Blood by Automated count 58.0 % 37. 0 - 80.0 [facility] Lymphocytes/100 leukocytes in Blood by Manual count 28.0 % 25.0 - 40.0 [facility] Monocytes/100 leukocytes in Blood by Automated count 10.0 % 3.0 - 8.0 H [facility] Eosinophils/100 leukocytes in Blood by Automated count 2.6 % 0.0 - 7.0 [facility] Basophils/100 leukocytes in Blood by Automated count 0.7 % 0.0 - 2.5 [facility] %IG 0.7 % 0.0 - 0.0 [facility] % 0.0 - 0.0 [facility] al Neutrophils [#/volume] in Blood by Automated count 1.57 10^3/uL 2.00 - 6.90 L [facility] Lymphocytes [#/volume] in Blood by Automated count 0.76 10^3/uL 0.60 - 3.40 [facility] Monocytes [#/volume] in Blood by Automated count 0.27 10^3/uL 0.00 - 0.90 [facility] Eosinophils [#/volume] in Blood by Automated count 0.07 10^3/uL 0.00 - 0.70 [facility] Basophils [#/volume] in Blood by Automated count 0.02 10^3/uL 0.00 - 0.20 [facility] #IG 0.02 10^3/uL 0.00 - 0.10 [facility] #NRBC 0.00 10^3/uL 0.00 - 0.00 [facility] MANUAL DIFF SEE BELOW [facility] ital Segmented neutrophils/100 leukocytes in Blood by Manual count 64 % 37 - 80 [facility] BAND 1 % 0 - 5 [facility] %LYMPH 21 % 25 - 40 L [facility] %MONO 8 % 3 - 8 [facility] %EOS 5 % 0 - 7 [facility] Metamyelocytes/100 leukocytes in Blood by Manual count 1 % [facility] RBC MORPH SEE BELOW [facility] Anisocytosis [Presence] in Blood by Light microscopy 1+ NATASHA L: NONE SEEN A [facility] Macrocytes [Presence] in Blood by Light microscopy 1+ NORMAL: NONE SEEN A [facility] Poikilocytosis [Presence] in Blood by Light microscopy 1+ NOR MAL: NONE SEEN A [facility] Polychromasia [Presence] in Blood by Light microscopy 1+ NORM AL: NONE SEEN A [facility] { SICKLE CELL (NORMAL: NONE SEEN ) Platelet adequacy [Presence] in Blood by Light microscopy DE CREASED NORMAL: NORMAL A [facility] COMMENT: ID Date Data Source [id number] 03/09/2020 09:47:00 AM EST [facility] [address] [place] [address] PHONE: [phone] FAX: [phone] Name .................. : GAMA Nobles Acct Number.................. : [id number] ROOM. ................. : 103-1 MR Number ................... : [id number] Stay type ............. : O/P Discharge Date......... ... : Admit Date ......... : 03/04/20 Admit Phys .................... : DANIKA-FALAN Date of ....... : 1955 Family Phys ................... : NON STAFF Phone .................. : [phone] Age ................................ : 64 Film# .................. .:[id number] Sex ................................. : F Unsigned transcriptions are preliminary reports and do not represent a medical or legal document DOPPLER VENOUS BILAT LEG 19093 COMPLETE:03/05/20 12:55 KNB 862 (REASON FOR PROCESS: [...] 03/05/20 13:17, Dictation Date: Copy for: 002 [facility] Copy for: 710 [facility] REC Page 1 of 1 Name Value Range Interpretation Code Description Data Miladys rce(s) Supporting Document(s) ID Date Data Source [id number] 03/09/2020 09:20:00 [place] [address] PHONE: [phone] FAX: [phone] Name .................. : GAMA Nobles Acct Number.................. : [id number] ROOM. ................. : 103-1 MR Number ................... : [id number] Stay type ............. : I/P Discharge Date......... ... : Admit Date ......... : 03/04/20 Admit Phys .................... : RACHEL Date of ....... : 1955 Family Phys ................... : NON STAFF Phone .................. : [phone] Age ................................ : 64 Film# .................. .:[id number] Sex ................................. : F Unsigned transcriptions are preliminary reports and do not represent a medical or legal document CHEST 2 VIEWS 11951 COMPLETE:03/09/20 06:02 BEM 988 (REASON FOR CHEST: [...] 03/09/20 07:55, Dictation Date: Copy for: 002 [facility] Copy for: [facility] REC Page 1 of 1 Name Value Range Interpretation Code Description Data Miladys rce(s) Supporting Document(s) ID Date Data Source [id number] 03/09/2020 07:42:00 AM EST [facility] Name Value Range Interpretation Code Description Data Miladys rce(s) Supporting Document(s) CBC W/AUTOMATED DIFF [facility] COMPLETE BLOOD COUNT Leukocytes [#/volume] in Blood by Automated count 2.3 10^3/uL 4.2 - 1 1.0 L [facility] Erythrocytes [#/volume] in Blood by Automated count 2.75 10^6/uL 4. 20 - 5.40 L [facility] Hemoglobin [Mass/volume] in Blood 9.1 g/dL 12.0 - 16.0 L [facility] Hematocrit [Volume Fraction] of Blood by Automated count 27.1 % 3 7.0 - 47.0 L [facility] Erythrocyte mean corpuscular volume [Entitic volume] by Auto mated count 98.5 fL 81.0 - 101 [facility] Erythrocyte mean corpuscular hemoglobin [Entitic mass] by Automated count 33.1 pg 27.0 - 34.0 [facility] Erythrocyte mean corpuscular hemoglobin concentration [Mass/volume] by Automated count 33.6 g/dL 31.0 - 36.0 [facility] Erythrocyte distribution width [Ratio] by Automated count 17.8 % 11.5 - 14.5 H [facility] Platelets [#/volume] in Blood by Automated count 101 10^3/uL 150 - 45 0 L [facility] Platelet mean volume [Entitic volume] in Blood by Automated count 10.8 fL 7.4 - 10.4 H [facility] Neutrophils/100 leukocytes in Blood by Automated count 58.2 % 37. 0 - 80.0 [facility] Lymphocytes/100 leukocytes in Blood by Manual count 27.0 % 25.0 - 40.0 [facility] Monocytes/100 leukocytes in Blood by Automated count 12.2 % 3.0 - 8.0 H [facility] Eosinophils/100 leukocytes in Blood by Automated count 1.3 % 0.0 - 7.0 [facility] Basophils/100 leukocytes in Blood by Automated count 0.9 % 0.0 - 2.5 [facility] %IG 0.4 % 0.0 - 0.0 [facility] %NR[facility] 0.0 % 0.0 - 0.0 [facility] al Neutrophils [#/volume] in Blood by Automated count 1.34 10^3/uL 2.00 - 6.90 L [facility] Lymphocytes [#/volume] in Blood by Automated count 0.62 10^3/uL 0.60 - 3.40 [facility] Monocytes [#/volume] in Blood by Automated count 0.28 10^3/uL 0.00 - 0.90 [facility] Eosinophils [#/volume] in Blood by Automated count 0.03 10^3/uL 0.00 - 0.70 [facility] Basophils [#/volume] in Blood by Automated count 0.02 10^3/uL 0.00 - 0.20 [facility] #IG 0.01 10^3/uL 0.00 - 0.10 [facility] #NRBC 0.00 10^3/uL 0.00 - 0.00 [facility] ospital MANUAL DIFF SEE BELOW [facility] Segmented neutrophils/100 leukocytes in Blood by Manual count 62 % 37 - 80 [facility] %LYMPH 29 % 25 - 40 [facility] al %MONO 8 % 3 - 8 [facility] al %EOS 1 % 0 - 7 [facility] al RBC MORPH NOT INDICATED [facility] ID Date Data Source [id number] 03/09/2020 07:26:00 AM EST [facility] Name Value Range Interpretation Code Description Data Miladys rce(s) Supporting Document(s) COMPREHENSIVE METABOLIC PANEL [facility] COMPREHENSIVE METABOLIC PANEL Sodium [Moles/volume] in Serum or Plasma 142 mEq/L 134 - 153 [facility] Potassium [Moles/volume] in Serum or Plasma 3.2 mEq/L 3.6 - 5.0 L [facility] Chloride [Moles/volume] in Serum or Plasma 101 mEq/L 98 - 107 [facility] Carbon dioxide, total [Moles/volume] in Serum or Plasma 34 MEQ/L 22 - 30 H [facility] Glucose [Mass/volume] in Serum or Plasma 99 MG/DL 65 - 110 [facility] BUN 8 MG/DL 7 - 21 [facility] Creatinine [Mass/volume] in Serum or Plasma 0.7 MG/DL 0.7 - 1.5 [facility] BUN/CREAT 11 8 - 27 [facility] al Protein [Mass/volume] in Serum or Plasma 5.4 G/DL 6.3 - 8.2 L [facility] Albumin [Mass/volume] in Serum or Plasma 3.6 G/DL 3.9 - 5.0 L [facility] Globulin [Mass/volume] in Serum by calculation 1.8 GM/DL 2.4 - 3.2 L [facility] A/G RATIO 2.0 0.8 - 2.0 [facility] Calcium [Mass/volume] in Serum or Plasma 8.5 MG/DL 8.4 - 10.2 [facility] Bilirubin.total [Mass/volume] in Serum or Plasma 1.0 MG/DL 0.2 - 1.3 [facility] Alkaline phosphatase [Enzymatic activity/volume] in Serum or Plasma 79 U/L 38 - 126 [facility] Aspartate aminotransferase [Enzymatic activity/volume] in Se rum or Plasma 9 U/L 5 - 40 [facility] Alanine aminotransferase [Enzymatic activity/volume] in Seru m or Plasma 8 U/L 7 - 56 [facility] Anion gap 3 in Serum or Plasma 7.0 mmol/L 8.0 - 16.0 L [facility] AGE 64 yrs [facility] al NON-AA GFR >60 mL/min [facility] ital AFR AMER GFR >60 [facility] Male GFR In terprentation [...] >32 mL/min Normal ID Date Data Source [id number] 03/09/2020 07:26:00 AM [facility] Name Value Range Interpretation Code Description Data Miladys rce(s) Supporting Document(s) Magnesium [Mass/volume] in Serum or Plasma 1.2 MG/DL 1.7 - 2.2 L [facility] ID Date Data Source [id number] 03/16/2020 12:12:00 PM EST [facility] Name Value Range Interpretation Code Description Data [facility] rce(s) Supporting Document(s) CULTURE BLOOD [facility] _CULTURE BLOOD_ [place] [address] IA# [id number] SEE SCANNED REPORT{ PRELIM ID Date Data Source [id number] 03/10/2020 01:00:00 PM [facility] [id number] 12:56 CALLED TO WAYNE Nobles BY OPAL, [...] rce(s) Supporting Document(s) ID Date Data Source [id number] 03/16/2020 12:12:00 PM [facility] Name Value Range Interpretation Code Description Data Miladys rce(s) Supporting Document(s) CULTURE BLOOD [facility] spital _CULTURE BLOOD_ TEST [place] [address] IA# [id number] SEE SCANNED REPORT{ PRELIM GROWTH OF GRAM POS COCCI IN CLUSTERSCALLED TO PAT ON AIU 03/10/20 1305 CM ID Date Data Source [id number] 03/08/2020 08:45:00 PM EST [facility] Name Value Range Interpretation Code Description Data Mialdys rce(s) Supporting Document(s) COVID-19 NOT DETECTED [facility] This lab was ordered by [facility] and reported by [facility]. ID Date Data Source [id number] 03/08/2020 08:45:00 PM EST [facility] Name Value Range Interpretation Code Description Data Miladys rce(s) Supporting Document(s) COVID-19 REENTER NOT DETECTED [facility] This lab was ordered by [facility] and reported by [facility]. ID Date Data Source [id number] 03/08/2020 09:35:00 PM EST [facility] Name Value Range Interpretation Code Description Data Miladys rce(s) Supporting Document(s) COVID-19 NOT DETECTED [facility] COVID-19 REENTER NOT DETECTED [facility] { PROCEDURAL CONTROL VALID KIT LOT # _[id number] 03/08/20.DW . KIT EXP DATE _[id number] 03/08/20.DW . NORMAL RANGE IS NOT DETECTEDNEGATIVE RESULTS SHOULD BE TREATED PREUMPTIVE AND, IF INCONSISTENT WITHCLINICAL SIGNS AND SYMPTOMS OR NECESSARY FOR PATIENT MANAGEMENT, SHOULD BETESTED WITH DIFFERENT AUTHORIZED OR CLEARED MOLECULAR TESTS. NEGATIVE RESULTSDO NOT PRECLUDE SARS-CoV-2 INFECTION AND SHOULD NOT BE USED THE SOLE BASISFOR PATIENT MANAGEMENT DECISIONS. ID Date Data Source [id number] 03/08/2020 11:55:00 AM EST [facility] Name Value Range Interpretation Code Description Data Miladys rce(s) Supporting Document(s) Magnesium [Mass/volume] in Serum or Plasma 1.6 MG/DL 1.7 - 2.2 L [facility] ID Date Data Source [id number] 03/08/2020 09:41:00 AM EST [facility] Name Value Range Interpretation Code Description Data Miladys rce(s) Supporting Document(s) CBC W/AUTOMATED DIFF [facility] COMPLETE BLOOD COUNT Leukocytes [#/volume] in Blood by Automated count 2.3 10^3/uL 4.2 - 1 1.0 L [facility] Erythrocytes [#/volume] in Blood by Automated count 2.51 10^6/uL 4. 20 - 5.40 L [facility] Hemoglobin [Mass/volume] in Blood 8.5 g/dL 12.0 - 16.0 L [facility] Hematocrit [Volume Fraction] of Blood by Automated count 24.6 % 3 7.0 - 47.0 L [facility] Erythrocyte mean corpuscular volume [Entitic volume] by Auto mated count 98.0 fL 81.0 - 101 [facility] Erythrocyte mean corpuscular hemoglobin [Entitic mass] by Automated count 33.9 pg 27.0 - 34.0 [facility] Erythrocyte mean corpuscular hemoglobin concentration [Mass/volume] by Automated count 34.6 g/dL 31.0 - 36.0 [facility] Erythrocyte distribution width [Ratio] by Automated count 17.5 % 11.5 - 14.5 H [facility] Platelets [#/volume] in Blood by Automated count 94 10^3/uL 150 - 450 L [facility] Platelet mean volume [Entitic volume] in Blood by Automated count 11.1 fL 7.4 - 10.4 H [facility] Neutrophils/100 leukocytes in Blood by Automated count 61.3 % 37. 0 - 80.0 [facility] Lymphocytes/100 leukocytes in Blood by Manual count 23.2 % 25.0 - 40.0 L [facility] Monocytes/100 leukocytes in Blood by Automated count 12.9 % 3.0 - 8.0 H [facility] Eosinophils/100 leukocytes in Blood by Automated count 1.3 % 0.0 - 7.0 [facility] Basophils/100 leukocytes in Blood by Automated count 0.9 % 0.0 - 2.5 [facility] %IG 0.4 % 0.0 - 0.0 [facility] %NRBC 0.0 % 0.0 - 0.0 [facility] al Neutrophils [#/volume] in Blood by Automated count 1.43 10^3/uL 2.00 - 6.90 L [facility] Lymphocytes [#/volume] in Blood by Automated count 0.54 10^3/uL 0.60 - 3.40 L [facility] Monocytes [#/volume] in Blood by Automated count 0.30 10^3/uL 0.00 - 0.90 [facility] Eosinophils [#/volume] in Blood by Automated count 0.03 10^3/uL 0.00 - 0.70 [facility] Basophils [#/volume] in Blood by Automated count 0.02 10^3/uL 0.00 - 0.20 [facility] #IG 0.01 10^3/uL 0.00 - 0.10 [facility] #NRBC 0.00 10^3/uL 0.00 - 0.00 [facility] ospital MANUAL DIFF NOT INDICATED [facility] RBC MORPH NOT INDICATED [facility] spital ID Date Data Source [id number] 03/08/2020 09:00:00 AM EST [facility] Name Value Range Interpretation Code Description Data Miladys rce(s) Supporting Document(s) COMPREHENSIVE METABOLIC PANEL [facility] COMPREHENSIVE METABOLIC PANEL Sodium [Moles/volume] in Serum or Plasma 141 mEq/L 134 - 153 [facility] Potassium [Moles/volume] in Serum or Plasma 3.1 mEq/L 3.6 - 5.0 L [facility] Chloride [Moles/volume] in Serum or Plasma 106 mEq/L 98 - 107 [facility] Carbon dioxide, total [Moles/volume] in Serum or Plasma 30 MEQ/L 22 - 30 [facility] Glucose [Mass/volume] in Serum or Plasma 86 MG/DL 65 - 110 [facility] BUN <4 MG/DL 7 - 21 L [facility] Creatinine [Mass/volume] in Serum or Plasma 0.5 MG/DL 0.7 - 1.5 L [facility] BUN/CREAT 8 8 - 27 [facility] Protein [Mass/volume] in Serum or Plasma 5.1 G/DL 6.3 - 8.2 L [facility] Albumin [Mass/volume] in Serum or Plasma 2.9 G/DL 3.9 - 5.0 L [facility] Globulin [Mass/volume] in Serum by calculation 2.2 GM/DL 2.4 - 3.2 L [facility] A/G RATIO 1.3 0.8 - 2.0 [facility] Calcium [Mass/volume] in Serum or Plasma 8.3 MG/DL 8.4 - 10.2 L [facility] Bilirubin.total [Mass/volume] in Serum or Plasma 0.8 MG/DL 0.2 - 1.3 [facility] Alkaline phosphatase [Enzymatic activity/volume] in Serum or Plasma 70 U/L 38 - 126 [facility] Aspartate aminotransferase [Enzymatic activity/volume] in Se rum or Plasma 8 U/L 5 - 40 [facility] Alanine aminotransferase [Enzymatic activity/volume] in Seru m or Plasma 7 U/L 7 - 56 [facility] Anion gap 3 in Serum or Plasma 5.0 mmol/L 8.0 - 16.0 L [facility] AGE 64 yrs [facility] al NON-AA GFR >60 mL/min [facility] ital AFR AMER GFR >60 [facility] Male GFR In terprentation [...] >32 mL/min Normal ID Date Data Source [id number] 03/07/2020 10:42:00 AM EST [facility] Name Value Range Interpretation Code Description Data Miladys rce(s) Supporting Document(s) Iron [Mass/volume] in Serum or Plasma 62 UG/DL 42 - 135 [facility] ID Date Data Source [id number] 03/07/2020 09:11:00 AM EST [facility] Name Value Range Interpretation Code Description Data Miladys rce(s) Supporting Document(s) CBC W/AUTOMATED DIFF [facility] COMPLETE BLOOD COUNT Leukocytes [#/volume] in Blood by Automated count 2.5 10^3/uL 4.2 - 1 1.0 L [facility] Erythrocytes [#/volume] in Blood by Automated count 2.52 10^6/uL 4. 20 - 5.40 L [facility] Hemoglobin [Mass/volume] in Blood 8.4 g/dL 12.0 - 16.0 L [facility] Hematocrit [Volume Fraction] of Blood by Automated count 24.8 % 3 7.0 - 47.0 L [facility] Erythrocyte mean corpuscular volume [Entitic volume] by Auto mated count 98.4 fL 81.0 - 101 [facility] Erythrocyte mean corpuscular hemoglobin [Entitic mass] by Automated count 33.3 pg 27.0 - 34.0 [facility] Erythrocyte mean corpuscular hemoglobin concentration [Mass/volume] by Automated count 33.9 g/dL 31.0 - 36.0 [facility] Erythrocyte distribution width [Ratio] by Automated count 17.5 % 11.5 - 14.5 H [facility] Platelets [#/volume] in Blood by Automated count 86 10^3/uL 150 - 450 L [facility] Platelet mean volume [Entitic volume] in Blood by Automated count 10.5 fL 7.4 - 10.4 H [facility] Neutrophils/100 leukocytes in Blood by Automated count 66.3 % 37. 0 - 80.0 [facility] Lymphocytes/100 leukocytes in Blood by Manual count 18.9 % 25.0 - 40.0 L [facility] Monocytes/100 leukocytes in Blood by Automated count 10.8 % 3.0 - 8.0 H [facility] Eosinophils/100 leukocytes in Blood by Automated count 2.8 % 0.0 - 7.0 [facility] Basophils/100 leukocytes in Blood by Automated count 0.8 % 0.0 - 2.5 [facility] %IG 0.4 % 0.0 - 0.0 [facility] %NRBC 0.0 % 0.0 - 0.0 [facility] al Neutrophils [#/volume] in Blood by Automated count 1.65 10^3/uL 2.00 - 6.90 L [facility] Lymphocytes [#/volume] in Blood by Automated count 0.47 10^3/uL 0.60 - 3.40 L [facility] Monocytes [#/volume] in Blood by Automated count 0.27 10^3/uL 0.00 - 0.90 [facility] Eosinophils [#/volume] in Blood by Automated count 0.07 10^3/uL 0.00 - 0.70 [facility] Basophils [#/volume] in Blood by Automated count 0.02 10^3/uL 0.00 - 0.20 [facility] #IG 0.01 10^3/uL 0.00 - 0.10 [facility] #NRBC 0.00 10^3/uL 0.00 - 0.00 [facility] MANUAL DIFF NOT INDICATED [facility] RBC MORPH NOT INDICATED [facility] ID Date Data Source [id number] 03/07/2020 08:40:00 AM [facility] Name Value Range Interpretation Code Description Data Miladys rce(s) Supporting Document(s) Magnesium [Mass/volume] in Serum or Plasma 1.1 MG/DL 1.7 - 2.2 L [facility] ID Date Data Source [id number] 03/07/2020 08:40:00 AM [facility] Name Value Range Interpretation Code Description Data Miladys rce(s) Supporting Document(s) COMPREHENSIVE METABOLIC PANEL [facility] COMPREHENSIVE METABOLIC PANEL Sodium [Moles/volume] in Serum or Plasma 139 mEq/L 134 - 153 [facility] Potassium [Moles/volume] in Serum or Plasma 3.4 mEq/L 3.6 - 5.0 L [facility] Chloride [Moles/volume] in Serum or Plasma 107 mEq/L 98 - 107 [facility] Carbon dioxide, total [Moles/volume] in Serum or Plasma 26 MEQ/L 22 - 30 [facility] Glucose [Mass/volume] in Serum or Plasma 91 MG/DL 65 - 110 [facility] BUN 5 MG/DL 7 - 21 L [facility] Creatinine [Mass/volume] in Serum or Plasma 0.5 MG/DL 0.7 - 1.5 L [facility] BUN/CREAT 10 8 - 27 [facility] Protein [Mass/volume] in Serum or Plasma 4.7 G/DL 6.3 - 8.2 L [facility] Albumin [Mass/volume] in Serum or Plasma 3.0 G/DL 3.9 - 5.0 L [facility] Globulin [Mass/volume] in Serum by calculation 1.7 GM/DL 2.4 - 3.2 L [facility] A/G RATIO 1.8 0.8 - 2.0 [facility] Calcium [Mass/volume] in Serum or Plasma 8.0 MG/DL 8.4 - 10.2 L [facility] Bilirubin.total [Mass/volume] in Serum or Plasma <0.7 MG/DL 0.2 - 1.3 [facility] Alkaline phosphatase [Enzymatic activity/volume] in Serum or Plasma 69 U/L 38 - 126 [facility] Aspartate aminotransferase [Enzymatic activity/volume] in Se rum or Plasma 8 U/L 5 - 40 [facility] Alanine aminotransferase [Enzymatic activity/volume] in Seru m or Plasma 6 U/L 7 - 56 L [facility] Anion gap 3 in Serum or Plasma 6.0 mmol/L 8.0 - 16.0 L [facility] AGE 64 yrs [facility] al NON-AA GFR >60 mL/min [facility] ital AFR AMER GFR >60 [facility] Male GFR In terprentation [...] >32 mL/min Normal ID Date Data Source [id number] 03/11/2020 06:20:00 AM [facility] Name Value Range Interpretation Code Description Data Miladys rce(s) Supporting Document(s) Clostridium difficile toxin A+B [Presence] in Stool by Immun oassay Negative Negative [facility] ID Date Data Source [id number] 03/10/2020 06:12:00 AM [facility] Name Value Range Interpretation Code Description Data Miladys rce(s) Supporting Document(s) WBC STOOL [facility] _WBC STOOL_$$[id number]$$[id number]$$[id number] $$[id number]$$[id number]$$[id number] DATE/TIME: 03/09/2020 18:05Culture: WBC STOOL Status: FinalWhite Blood Cells (WBC), Stool: P1No white blood cells seen.Reference Range: None SeenP1 Test performed by: [facility] #: [id number] [address] [place] [address] [id number] [facility] [id number] Director : Hira Cole MD NPI #:Park Worker Supervisor : 03/10/20.0613.XMT.SENT REF ID Date Data Source [id number] 03/06/2020 07:44:00 AM [facility] Value Range Interpretation Code Description Data Miladys rce(s) Supporting Document(s) Magnesium [Mass/volume] in Serum or Plasma 1.4 MG/DL 1.7 - 2.2 L [facility] ID Date Data Source [id number] 03/06/2020 07:44:00 AM [facility] Value Range Interpretation Code Description Data Miladys rce(s) Supporting Document(s) COMPREHENSIVE METABOLIC PANEL [facility] COMPREHENSIVE METABOLIC PANEL Sodium [Moles/volume] in Serum or Plasma 141 mEq/L 134 - 153 [facility] Potassium [Moles/volume] in Serum or Plasma 3.8 mEq/L 3.6 - 5.0 [facility] Chloride [Moles/volume] in Serum or Plasma 108 mEq/L 98 - 107 H [facility] Carbon dioxide, total [Moles/volume] in Serum or Plasma 27 MEQ/L 22 - 30 [facility] Glucose [Mass/volume] in Serum or Plasma 114 MG/DL 65 - 110 H [facility] BUN 9 MG/DL 7 - 21 [facility] Creatinine [Mass/volume] in Serum or Plasma 0.6 MG/DL 0.7 - 1.5 L [facility] BUN/CREAT 15 8 - 27 [facility] Protein [Mass/volume] in Serum or Plasma 5.3 G/DL 6.3 - 8.2 L [facility] Albumin [Mass/volume] in Serum or Plasma 3.5 G/DL 3.9 - 5.0 L [facility] Globulin [Mass/volume] in Serum by calculation 1.8 GM/DL 2.4 - 3.2 L [facility] A/G RATIO 1.9 0.8 - 2.0 [facility] Calcium [Mass/volume] in Serum or Plasma 8.6 MG/DL 8.4 - 10.2 [facility] Bilirubin.total [Mass/volume] in Serum or Plasma <0.7 MG/DL 0.2 - 1.3 [facility] Alkaline phosphatase [Enzymatic activity/volume] in Serum or Plasma 80 U/L 38 - 126 [facility] Aspartate aminotransferase [Enzymatic activity/volume] in Se rum or Plasma 8 U/L 5 - 40 [facility] Alanine aminotransferase [Enzymatic activity/volume] in Seru m or Plasma 8 U/L 7 - 56 [facility] Anion gap 3 in Serum or Plasma 6.0 mmol/L 8.0 - 16.0 L [facility] AGE 64 yrs [facility] NON-AA GFR >60 mL/min [facility] ital AFR AMER GFR >60 [facility] Male GFR In terprentation [...] >32 mL/min Normal ID Date Data Source [id number] 03/06/2020 07:33:00 AM EST [facility] Name Value Range Interpretation Code Description Data Miladys rce(s) Supporting Document(s) CBC W/AUTOMATED DIFF [facility] COMPLETE BLOOD COUNT Leukocytes [#/volume] in Blood by Automated count 2.7 10^3/uL 4.2 - 1 1.0 L [facility] Erythrocytes [#/volume] in Blood by Automated count 2.68 10^6/uL 4. 20 - 5.40 L [facility] Hemoglobin [Mass/volume] in Blood 8.8 g/dL 12.0 - 16.0 L [facility] Hematocrit [Volume Fraction] of Blood by Automated count 26.9 % 3 7.0 - 47.0 L [facility] Erythrocyte mean corpuscular volume [Entitic volume] b y Automated count 100.4 fL 81.0 - 101 [facility] Erythrocyte mean corpuscular hemoglobin [Entitic mass] by Automated count 32.8 pg 27.0 - 34.0 [facility] Erythrocyte mean corpuscular hemoglobin concentration [Mass/volume] by Automated count 32.7 g/dL 31.0 - 36.0 [facility] Erythrocyte distribution width [Ratio] by Automated count 18.1 % 11.5 - 14.5 H [facility] Platelets [#/volume] in Blood by Automated count 96 10^3/uL 150 - 450 L [facility] Platelet mean volume [Entitic volume] in Blood by Automated count 10.5 fL 7.4 - 10.4 H [facility] Neutrophils/100 leukocytes in Blood by Automated count 67.5 % 37. 0 - 80.0 [facility] Lymphocytes/100 leukocytes in Blood by Manual count 18.1 % 25.0 - 40.0 L [facility] Monocytes/100 leukocytes in Blood by Automated count 10.0 % 3.0 - 8.0 H [facility] Eosinophils/100 leukocytes in Blood by Automated count 2.2 % 0.0 - 7.0 [facility] Basophils/100 leukocytes in Blood by Automated count 1.5 % 0.0 - 2.5 [facility] %IG 0.7 % 0.0 - 0.0 H [facility] al %NRBC 0.0 % 0.0 - 0.0 [facility] [#/volume] in Blood by Automated count 1.82 10^3/uL 2.00 - 6.90 L [facility] Lymphocytes [#/volume] in Blood by Automated count 0.49 10^3/uL 0.60 - 3.40 L [facility] Monocytes [#/volume] in Blood by Automated count 0.27 10^3/uL 0.00 - 0.90 [facility] Eosinophils [#/volume] in Blood by Automated count 0.06 10^3/uL 0.00 - 0.70 [facility] Basophils [#/volume] in Blood by Automated count 0.04 10^3/uL 0.00 - 0.20 [facility] #IG 0.02 10^3/uL 0.00 - 0.10 [facility] #NRBC 0.00 10^3/uL 0.00 - 0.00 [facility] MANUAL DIFF NOT INDICATED [facility] RBC MORPH NOT INDICATED [facility] spital ID Date Data Source [id number] 03/10/2020 09:30:00 AM EST [facility] Name Value Range Interpretation Code Description Data Miladys rce(s) Supporting Document(s) CULTURE STOOL [facility] Ho sp[facility] _CULTURE STOOL_$$[id number]$$[id number]$$[id number]$$[id number]$$[id number]$$[id number]$$[id number]$$[id number]$$[id number]$$ [id number]$$[id number]$$[id number]$$[id number] DATE/TIME: 03/10/2020 07:06Culture: CULTURE STOOL Status: FinalSalmonella/Shigella Screen: P1No Salmonella or Shigella recovered.NO COLIFORMS ISOLATED Previous result entered on 03/08/2020 12:28 ET Microbiological testing to rule out the presence of possible pathogensis in progress.Campylobacter Culture: P1No Campylobacter species isolated. -- Continued on next page --Patient: GAMA Nobles Order: [id number] Page 2Culture: CULTURE STOOL Status: Final ====E coli Shiga Toxin EIA: O4SkzfmvzxLxsesanxv Range: NegativeP1 Test performed by: [facility] #: [id number] [address] [place] [address] [id number] [facility] [address]Medical Director : Hira Cole MD NPI #:Park Worker Supervisor : 03/09/20.0723.XMT.SENT REF 03/09/20.1434.XMT.SENT REF 03/10/20.0930.XMT.SENT REF ID Date Data Source [id number] 03/05/2020 10:21:00 AM [facility] Name Value Range Interpretation Code Description Data Miladys rce(s) Supporting Document(s) Lactate [Moles/volume] in Serum or Plasma 1.9 MMOL/L 0.2 - 2.2 [facility] ID Date Data Source [id number] 03/05/2020 09:13:00 [place] [address] PHONE: [phone] FAX: [phone] Name .................. : GAMA Nobles Acct Number.................. : [id number] ROOM. ................. : [id number] Number ................... : [id number] Stay type ............. : O/P Discharge Date......... ... : Admit Date ......... : 03/04/20 Admit Phys .................... : DANIKA-LAWRENCE Date of ....... : 1955 Family Phys ................... : NON STAFF Phone .................. : [phone] Age ................................ : 64 Film# .................. .:[id number] Sex ................................. : F Unsigned transcriptions are preliminary reports and do not represent a medical or legal document ABDOMEN 1 VIEW [id number] COMPLETE:03/04/20 14:04 ARS 792 Reason(s): n/v/d r/o [...] Dictation Date: Copy for: [place]ERGENCY DEPT via [facility] Copy for: 710 MED REC Page 1 of 1 Name Value Range Interpretation Code Description Data Miladys rce(s) Supporting Document(s) ID Date Data Source [id number] 03/05/2020 08:08:00 AM EST [facility] Name Value Range Interpretation Code Description Data Miladys rce(s) Supporting Document(s) CBC W/AUTOMATED DIFF [facility] COMPLETE BLOOD COUNT Leukocytes [#/volume] in Blood by Automated count 2.3 10^3/uL 4.2 - 1 1.0 L [facility] Erythrocytes [#/volume] in Blood by Automated count 2.70 10^6/uL 4. 20 - 5.40 L [facility] Hemoglobin [Mass/volume] in Blood 9.1 g/dL 12.0 - 16.0 L [facility] Hematocrit [Volume Fraction] of Blood by Automated count 27.1 % 3 7.0 - 47.0 L [facility] Erythrocyte mean corpuscular volume [Entitic volume] b y Automated count 100.4 fL 81.0 - 101 [facility] Erythrocyte mean corpuscular hemoglobin [Entitic mass] by Automated count 33.7 pg 27.0 - 34.0 [facility] Erythrocyte mean corpuscular hemoglobin concentration [Mass/volume] by Automated count 33.6 g/dL 31.0 - 36.0 [facility] Erythrocyte distribution width [Ratio] by Automated count 18.0 % 11.5 - 14.5 H [facility] Platelets [#/volume] in Blood by Automated count 92 10^3/uL 150 - 450 L [facility] Platelet mean volume [Entitic volume] in Blood by Automated count 10.7 fL 7.4 - 10.4 H [facility] Neutrophils/100 leukocytes in Blood by Automated count 60.3 % 37. 0 - 80.0 [facility] Lymphocytes/100 leukocytes in Blood by Manual count 20.3 % 25.0 - 40.0 L [facility] Monocytes/100 leukocytes in Blood by Automated count 16.0 % 3.0 - 8.0 H [facility] Eosinophils/100 leukocytes in Blood by Automated count 1.3 % 0.0 - 7.0 [facility] Basophils/100 leukocytes in Blood by Automated count 1.7 % 0.0 - 2.5 [facility] %IG 0.4 % 0.0 - 0.0 [facility] %NR[facility] 0.0 % 0.0 - 0.0 [facility] al Neutrophils [#/volume] in Blood by Automated count 1.39 10^3/uL 2.00 - 6.90 L [facility] Lymphocytes [#/volume] in Blood by Automated count 0.47 10^3/uL 0.60 - 3.40 L [facility] Monocytes [#/volume] in Blood by Automated count 0.37 10^3/uL 0.00 - 0.90 [facility] Eosinophils [#/volume] in Blood by Automated count 0.03 10^3/uL 0.00 - 0.70 [facility] Basophils [#/volume] in Blood by Automated count 0.04 10^3/uL 0.00 - 0.20 [facility] #IG 0.01 10^3/uL 0.00 - 0.10 [facility] #NRBC 0.00 10^3/uL 0.00 - 0.00 [facility] MANUAL DIFF SEE BELOW [facility] ital Segmented neutrophils/100 leukocytes in Blood by Manual count 65 % 37 - 80 [facility] %LYMPH 23 % 25 - 40 L [facility] Hospit al %MONO 11 % 3 - 8 H [facility] %EOS 1 % 0 - 7 [facility] RBC MORPH SEE BELOW [facility] al Anisocytosis [Presence] in Blood by Light microscopy 1+ NATASHA L: NONE SEEN A [facility] Macrocytes [Presence] in Blood by Light microscopy 1+ NORMAL: NONE SEEN A [facility] Poikilocytosis [Presence] in Blood by Light microscopy 1+ NOR MAL: NONE SEEN A [facility] { SICKLE CELL (NORMAL: NONE SEEN ) Platelet adequacy [Presence] in Blood by Light microscopy DE CREASED NORMAL: NORMAL A [facility] COMMENT: ID Date Data Source [id number] 03/05/2020 07:47:00 AM [facility] Name Value Range Interpretation Code Description Data Miladys rce(s) Supporting Document(s) Phosphate [Mass/volume] in Serum or Plasma 3.6 MG/DL 2.5 - 4.5 [facility] ID Date Data Source [id number] 03/05/2020 07:47:00 AM [facility] Name Value Range Interpretation Code Description Data Miladys rce(s) Supporting Document(s) Magnesium [Mass/volume] in Serum or Plasma 1.6 MG/DL 1.7 - 2.2 L [facility] ID Date Data Source [id number] 03/05/2020 07:47:00 AM [facility] Name Value Range Interpretation Code Description Data Miladys rce(s) Supporting Document(s) COMPREHENSIVE METABOLIC PANEL [facility] COMPREHENSIVE METABOLIC PANEL Sodium [Moles/volume] in Serum or Plasma 144 mEq/L 134 - 153 [facility] Potassium [Moles/volume] in Serum or Plasma 3.3 mEq/L 3.6 - 5.0 L [facility] Chloride [Moles/volume] in Serum or Plasma 106 mEq/L 98 - 107 [facility] Carbon dioxide, total [Moles/volume] in Serum or Plasma 29 MEQ/L 22 - 30 [facility] Glucose [Mass/volume] in Serum or Plasma 110 MG/DL 65 - 110 [facility] BUN 17 MG/DL 7 - 21 [facility] Creatinine [Mass/volume] in Serum or Plasma 0.8 MG/DL 0.7 - 1.5 [facility] BUN/CREAT 21 8 - [facility] al Protein [Mass/volume] in Serum or Plasma 5.3 G/DL 6.3 - 8.2 L [facility] Albumin [Mass/volume] in Serum or Plasma 3.5 G/DL 3.9 - 5.0 L [facility] Globulin [Mass/volume] in Serum by calculation 1.8 GM/DL 2.4 - 3.2 L [facility] A/G RATIO 1.9 0.8 - 2.0 [facility] al Calcium [Mass/volume] in Serum or Plasma 8.5 MG/DL 8.4 - 10.2 [facility] Bilirubin.total [Mass/volume] in Serum or Plasma <0.7 MG/DL 0.2 - 1.3 [facility] Alkaline phosphatase [Enzymatic activity/volume] in Serum or Plasma 73 U/L 38 - 126 [facility] Aspartate aminotransferase [Enzymatic activity/volume] in Se rum or Plasma 8 U/L 5 - 40 [facility] Alanine aminotransferase [Enzymatic activity/volume] in Seru m or Plasma 8 U/L 7 - 56 [facility] Anion gap 3 in Serum or Plasma 9.0 mmol/L 8.0 - 16.0 [facility] AGE 64 yrs [facility] al NON-AA GFR >60 mL/min [facility] ital AFR AMER GFR >60 [facility] Male GFR In terprentation [...] >32 mL/min Normal ID Date Data Source [id number] 03/05/2020 02:48:00 AM EST [facility] Name Value Range Interpretation Code Description Data Miladys rce(s) Supporting Document(s) BASIC METABOLIC PANEL [facility] BASIC METABOLIC PANEL Sodium [Moles/volume] in Serum or Plasma 140 mEq/L 134 - 153 [facility] Potassium [Moles/volume] in Serum or Plasma 3.4 mEq/L 3.6 - 5.0 L [facility] Chloride [Moles/volume] in Serum or Plasma 102 mEq/L 98 - 107 [facility] Carbon dioxide, total [Moles/volume] in Serum or Plasma 28 MEQ/L 22 - 30 [facility] Glucose [Mass/volume] in Serum or Plasma 136 MG/DL 65 - 110 H [facility] BUN 20 MG/DL 7 - 21 [facility] al Creatinine [Mass/volume] in Serum or Plasma 0.8 MG/DL 0.7 - 1.5 [facility] BUN/CREAT 25 8 - 27 [facility] al Calcium [Mass/volume] in Serum or Plasma 8.7 MG/DL 8.4 - 10.2 [facility] Anion gap 3 in Serum or Plasma 10.0 mmol/L 8.0 - 16.0 [facility] AGE 64 yrs [facility] al AFR AMER GFR >60 [facility] NON-AA GFR >60 mL/min [facility] ital Male GFR Inter prentation 20-49 [...] >32 mL/min Normal ID Date Data Source [id number] 03/05/2020 02:41:00 AM EST [facility] Name Value Range Interpretation Code Description Data Miladys rce(s) Supporting Document(s) Magnesium [Mass/volume] in Serum or Plasma 1.7 MG/DL 1.7 - 2.2 [facility] ID Date Data Source [id number] 03/04/2020 08:14:00 PM EST [facility] Name Value Range Interpretation Code Description Data Miladys rce(s) Supporting Document(s) URINALYSIS [facility] sumeet URINALYSIS SOURCE R [facility] al COLOR yellow NORMAL: Yellow [facility] CLARITY hazy NORMAL: Clear [facility] Specific gravity of Urine by Test strip 1.020 1.001 - 1.030 [facility] pH 5 5 - 9 [facility] Glucose [Mass/volume] in Urine by Test strip NORM NORMAL: Negat sergey [facility] Bilirubin.total [Presence] in Urine by Test strip NEG NORMAL: Negative [facility] Ketones [Presence] in Urine by Test strip NEG NORMAL: Negative [facility] Protein [Mass/volume] in Urine by Test strip 15 NORMAL: Negat sergey [facility] Nitrite [Presence] in Urine by Test strip NEG NORMAL: Negative [facility] BLOOD NEG NORMAL: Negative [facility] Leukocyte esterase [Presence] in Urine by Test strip NEG NATASHA L: Negative [facility] Urobilinogen [Mass/volume] in Urine by Test strip NOR less lori n 1.0 mg/dL [facility] MICROSCOPIC Not Indicate [facility] ID Date Data Source [id number] 03/04/2020 12:24:00 PM EST [facility] 1 OrderSheet [facility] Emergency Department [address] [place] [address] Phone #: ext- [phone] 03/04/2020 11:58 Patient: [...] (FirstTest) (NotHospitalized) (Not) (NotResident in 2 OrderSheet [facility] Emergency Department [address] [place] [address] Phone #: ext- [phone] 03/04/2020 11:58 Patient: JEREMI MALLOY Sex: F : 1955 Age: 64yCongregate CareSetting) (NotEmployed inHealthcare Setting)Clostridium Difficile STAT 17:11 03/04/2020 18:28 Natasha Shin MD; Rachid RNDIAGNOSTIC STUDY ORDERSOrder Description Priority Entered Acknowledged InitialedAbdomen Multiview STAT 12:04 03/04/2020 Cancelled: Physician Order 12:54(Oxygen?(No)) Natasha Montero MD; Laurel, Anna R.N. Reason for Study: Abdominal PainAbdomen [...] rce(s) Supporting Document(s) ID Date Data Source [id number] 03/04/2020 12:24:00 PM EST [facility] 1 Medication Reconciliation Report [facility] Emergency Department [address] [place] [address] Phone #: ext- [phone] 03/04/2020 11:58 Patient: [...] a day, prn 2 Medication Reconciliation Report [facility] Emergency Department [address] [place] [address] Phone #: ext- [phone] 03/04/2020 11:58 Patient: [...] rce(s) Supporting Document(s) ID Date Data Source [id number] 03/04/2020 12:24:00 PM EST [facility] 1 Medication Administration Record [facility] Emergency Department [address] [place] [address] Phone #: ext- [phone] 03/04/2020 11:58 Patient: JEREMI MALLOY Sex: F : 1955 Age: 64yWeight: 83.2 kgHeight/Length: 64 inBMI: 31.5ALLERGIES: Quinolones, FLUOCINOLONE, Doxycycline, Tylenol, Spironolactone, PredniSONE, OCYCODONE, Metformin ,Keppra, Gabapentin, Codeine, Carisoprodol, Amitriptyline, NSAIDs Date/Time Medication Administered Medication OrderedStart NS [IV] IV NS 500 mL Bolus : Bolus 90713:45 03/04/2020 Dose: IV Fluids mL (X1)Hank Rashid [...] rce(s) Supporting Document(s) ID Date Data Source [id number] 03/04/2020 12:24:00 PM EST [facility] 1 General Instructions [facility] Emergency Department [address] [place] [address] Phone #: ext- [phone] 03/04/2020 11:58 Patient: JEREMI MALLOY Sex: F : 1955 Age: 64yDiarrhea.Dehydration.Hypomagnesemia.(Electronically signed by Natasha Montero MD 03/04/2020 19:40) Name Value Range Interpretation Code Description Data Miladys rce(s) Supporting Document(s) ID Date Data Source [id number] 03/04/2020 12:24:00 PM EST [facility] 1 Clinical Report - Nurses [facility] Emergency Department [address] [place] [address] Phone #: ext- [phone] 03/04/2020 11:58 Patient: JEREMI MALLOY Sex: F : 1955 Age: 64yTRIAGE Arrived by EMS. Historian: patient. Acuity: LEVEL 3. Chief Complaint: NAUSEA, VOMITING and DIARRHEA. Alert. No acute distress. Onset. (5 days ago). ( PATIENT IS 3 WEEKS S/P STEM CELL TRANSPLANT AT [facility]. PT HAS LYMPHOMA AND STATES SHE RECEIVED HER OWN STEM CELLS. ONCOLOGIST CONTACTED TODAY WHO ADVISED ER VISIT. PATIENT C/O DIZZINESS AND LIGHTHEADEDNESS STARTING 2 DAYS AGO.). No constipation, abdominal pain or fever. Last oral intake by patient was this morning (0400). Treatment HOTEL OPERATIONS MANAGER: None. (UNABLE TO KEEP HER MEDICATIONS DOWN). EMS Treatment HOTEL OPERATIONS MANAGER: See EMS report. SEPSIS SCREEN: SEPSIS SCREEN [...] Ramos R.N. 2 Clinical Report - Nurses [facility] Emergency Department [address] [place] [address] Phone #: ext- [phone] 03/04/2020 11:58 Patient: [...] or Coronavirus. 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 --13: Hank Rashid RN13:15 03/04/20. BP: 127/93. MAP: 104. HR: 101. RR: 16. O2 saturation: 98%. Pain level now: 0/10.--13:15 03/04/20 Hank Rashid RN13:45 03/04/20. BP: 112/81. MAP: 91. HR: 96. RR: 18. O2 saturation: 96%. --15:44 03/04/20 Kev Morel ER Gnyg294:15 03/04/20. BP: 128/77. MAP: 94. HR: 95. RR: 17. O2 saturation: 96%. --15:45 03/04/20 Kev Morel ER Bltv595:45 03/04/20. BP: 136/84. MAP: 101. HR: 98. RR: 17. O2 saturation: 95%. --15:45 03/04/20 [facility] Vbrp456:15 03/04/20. BP: 118/74. MAP: 88. HR: 99. RR: 17. O2 saturation: 95%. --15:46 03/04/20 [facility] Mlhj236:44 03/04/2020 POTASSIUM CHLORIDE LIQUID PO PO Oral [...] Rashid RN 5 Clinical Report - Nurses [facility] Emergency Department [address] [place] [address] Phone #: ext- [phone] 03/04/2020 11:58 Patient: [...] 96%. Pain level now: 0/10. --17:28 03/04/20 Hank Rashid RN 18:21 03/04/20. BP: 140/87. [...] rce(s) Supporting Document(s) ID Date Data Source [id number] 03/04/2020 12:24:00 PM EST [facility] 1 Clinical Report - Physicians/Mid Levels [facility] Emergency Department [address] [place] [address] Phone #: ext- [phone] 03/04/2020 11:58 Patient: [...] 3 WEEKS S/P STEM CELL TRANSPLANT AT [employer] [facility] [employer] [facility]. PT HAS LYMPHOMA AND STATES SHE [...] REMOVAL. 2 Clinical Report - Physicians/Mid Levels [facility] Emergency Department [address] [place] [address] Phone #: ext- [phone] 03/04/2020 11:58 Patient: [...] 010. 3 Clinical Report - Physicians/Mid Levels [facility] Emergency Department [address] [place] [address] Phone #: ext- [phone] 03/04/2020 11:58 Patient: [...] EKGLaboratory Tests:CORONAVIRUS COVID-19: (BERNADETTE: 03/04/2020 16:37) ( [place] [employer]cvd 03/04/2020 16:53) CanceledFirst test? Y Employed in [...] (Reference) 4 Clinical Report - Physicians/Mid Levels [facility] Emergency Department [address] [place] [address] Phone #: ext- [phone] 03/04/2020 11:58 ------ [...] Male GFR Interprentation 20-49 yrs >60 mL/min Icqzkf58-78 yrs >56 mL/min Normal 60-69 yrs >49 mL/min Normal 70-79yrs> 42 mL/min Normal 80 and above >35 mL/min Normal Female GFRInterpretation 20-39 yrs >60 mL/min Normal 40-49 yrs >58 mL/minNormal 50-59 yrs >51 mL/min Normal 60-69 yrs >45 mL/min Normal 5 Clinical Report - Physicians/Mid Levels [facility] Emergency Department [address] [place] [address] Phone #: ext- [phone] 03/04/2020 11:58 Patient: JEREMI MALLOY MRN: [id number] Sex: F : 1955 Age: 64y 70-79 yrs >39 mL/min Normal 80 and above > 32 mL/min Normal Lactic Acid: (BERNADETTE: 03/04/2020 12:41) ( MngRcvd 03/04/2020 13:05) Final results Test Result Flag [...] autologous stem celltransfusion done in january at [facility]. She has done well. pt states [...] [facility]. She agreed with care plan.I called and spoke to Kavya. she agreed to admit. pt comfortable with the plan to admit here [facility]. Patient/family counseled. Disposition: Admitted to the Acute Inpatient Unit, Monitored. Condition: good and stable.CLINICAL IMPRESSION Diarrhea. Dehydration. Hypomagnesemia. 6 Clinical Report - Physicians/Mid Levels [facility] Emergency Department [address] [place] [address] Phone #: [phone] 03/04/2020 11:58 Patient: JEREMI MALLOY Sex: F : 1955 Age: 64y(Electronically signed by Natasha Montero MD 03/04/2020 19:40) Name Value Range Interpretation Code Description Data Miladys rce(s) Supporting Document(s) ID Date Data Source [id number] 03/04/2020 12:24:00 PM [facility] Addenda for JEREMI MALLOY VisitID: [id number] Date: 17:32MED REC REQUEST FAXED TO [facility] WITH PATIENTS MED LISTS ANDT-SYSTEMS OVERVIEW @ [id number](Electronically signed by Moreno Pineda - 03/04/2020 17:32)03/04/2020 17:54OVERVIEW FAXED TO LONI AT 5981. LONI MALDONADO MADE AWARE(Electronically signed by Moreno Pineda - 03/04/2020 17:54) Name Value Range Interpretation Code Description Data Miladys rce(s) Supporting Document(s) ID Date Data Source [id number] 03/04/2020 04:52:00 PM EST [facility] Name Value Range Interpretation Code Description Data Miladys rce(s) Supporting Document(s) COVID-19 [facility] This lab was ordered by [facility] and [facility] ID Date Data Source [id number] 03/04/2020 04:52:00 PM EST [facility] Name Value Range Interpretation Code Description Data Miladys rce(s) Supporting Document(s) COVID-19 [facility] and reported by [facility]. ID Date Data Source [id number] 03/04/2020 05:26:00 PM [facility] Name Value Range Interpretation Code Description Data Miladys rce(s) Supporting Document(s) COVID-19 NOT DETECTED [facility] COVID-19 REENTER NOT DETECTED [facility] { PROCEDURAL CONTROL VALID KIT LOT [...] PATIENT MANAGEMENT DECISIONS. ID Date Data Source [id number] 03/04/2020 04:33:00 PM EST [facility] Name Value Range Interpretation Code Description Data Miladys rce(s) Supporting Document(s) Magnesium [Mass/volume] in Serum or Plasma 1.3 MG/DL 1.7 - 2.2 L [facility] ID Date Data Source [id number] 03/04/2020 01:54:00 PM [facility] Name Value Range Interpretation Code Description Data Miladys rce(s) Supporting Document(s) Phosphate [Mass/volume] in Serum or Plasma 4.0 MG/DL 2.5 - 4.5 [facility] ID Date Data Source [id number] 03/04/2020 01:20:00 PM EST [facility] Name Value Range Interpretation Code Description Data Miladys rce(s) Supporting Document(s) CBC W/AUTOMATED DIFF [facility] COMPLETE BLOOD COUNT Leukocytes [#/volume] in Blood by Automated count 4.4 10^3/uL 4.2 - 1 1.0 [facility] Erythrocytes [#/volume] in Blood by Automated count 3.27 10^6/uL 4. 20 - 5.40 L [facility] Hemoglobin [Mass/volume] in Blood 11.1 g/dL 12.0 - 16.0 L [facility] Hematocrit [Volume Fraction] of Blood by Automated count 32.0 % 3 7.0 - 47.0 L [facility] Erythrocyte mean corpuscular volume [Entitic volume] by Auto mated count 97.9 fL 81.0 - 101 [facility] Erythrocyte mean corpuscular hemoglobin [Entitic mass] by Automated count 33.9 pg 27.0 - 34.0 [facility] Erythrocyte mean corpuscular hemoglobin concentration [Mass/volume] by Automated count 34.7 g/dL 31.0 - 36.0 [facility] Erythrocyte distribution width [Ratio] by Automated count 18.0 % 11.5 - 14.5 H [facility] Platelets [#/volume] in Blood by Automated count 111 10^3/uL 150 - 45 0 L [facility] Platelet mean volume [Entitic volume] in Blood by Automated count 10.5 fL 7.4 - 10.4 H [facility] Neutrophils/100 leukocytes in Blood by Automated count 74.3 % 37. 0 - 80.0 [facility] Lymphocytes/100 leukocytes in Blood by Manual count 12.6 % 25.0 - 40.0 L [facility] Monocytes/100 leukocytes in Blood by Automated count 11.0 % 3.0 - 8.0 H [facility] Eosinophils/100 leukocytes in Blood by Automated count 0.7 % 0.0 - 7.0 [facility] Basophils/100 leukocytes in Blood by Automated count 0.7 % 0.0 - 2.5 [facility] %IG 0.7 % 0.0 - 0.0 [facility] 0.[facility] % 0.0 - 0.0 [facility] al Neutrophils [#/volume] in Blood by Automated count 3.26 10^3/uL 2.00 - 6.90 [facility] Lymphocytes [#/volume] in Blood by Automated count 0.55 10^3/uL 0.60 - 3.40 L [facility] Monocytes [#/volume] in Blood by Automated count 0.48 10^3/uL 0.00 - 0.90 [facility] Eosinophils [#/volume] in Blood by Automated count 0.03 10^3/uL 0.00 - 0.70 [facility] Basophils [#/volume] in Blood by Automated count 0.03 10^3/uL 0.00 - 0.20 [facility] #IG 0.03 10^3/uL 0.00 - 0.10 [facility] #NRBC 0.00 10^3/uL 0.00 - 0.00 [facility] ospital MANUAL DIFF NOT INDICATED [facility] RBC MORPH NOT INDICATED [facility] spital ID Date Data Source [id number] 03/04/2020 01:17:00 PM [facility] Name Value Range Interpretation Code Description Data Miladys rce(s) Supporting Document(s) Lipase [Enzymatic activity/volume] in Serum or Plasma 13 U/L 13 - 60 [facility] ID Date Data Source [id number] 03/04/2020 01:17:00 PM [facility] Name Value Range Interpretation Code Description Data Miladys rce(s) Supporting Document(s) Lactate dehydrogenase [Enzymatic activity/volume] in Serum o r Plasma 304 U/L 135 - 214 H [facility] ID Date Data Source [id number] 03/04/2020 01:17:00 PM [facility] Name Value Range Interpretation Code Description Data Miladys rce(s) Supporting Document(s) COMPREHENSIVE METABOLIC PANEL [facility] COMPREHENSIVE METABOLIC PANEL Sodium [Moles/volume] in Serum or Plasma 142 mEq/L 134 - 153 [facility] Potassium [Moles/volume] in Serum or Plasma 3.0 mEq/L 3.6 - 5.0 L [facility] Chloride [Moles/volume] in Serum or Plasma 100 mEq/L 98 - 107 [facility] Carbon dioxide, total [Moles/volume] in Serum or Plasma 31 MEQ/L 22 - 30 H [facility] Glucose [Mass/volume] in Serum or Plasma 125 MG/DL 65 - 110 H [facility] BUN 20 MG/DL 7 - 21 [facility] al Creatinine [Mass/volume] in Serum or Plasma 0.9 MG/DL 0.7 - 1.5 [facility] BUN/CREAT 22 8 - 27 [facility] al Protein [Mass/volume] in Serum or Plasma 6.3 G/DL 6.3 - 8.2 [facility] Albumin [Mass/volume] in Serum or Plasma 4.0 G/DL 3.9 - 5.0 [facility] Globulin [Mass/volume] in Serum by calculation 2.3 GM/DL 2.4 - 3.2 L [facility] A/G RATIO 1.7 0.8 - 2.0 [facility] Calcium [Mass/volume] in Serum or Plasma 9.1 MG/DL 8.4 - 10.2 [facility] Bilirubin.total [Mass/volume] in Serum or Plasma 0.8 MG/DL 0.2 - 1.3 [facility] Alkaline phosphatase [Enzymatic activity/volume] in Serum or Plasma 87 U/L 38 - 126 [facility] Aspartate aminotransferase [Enzymatic activity/volume] in Se rum or Plasma 9 U/L 5 - 40 [facility] Alanine aminotransferase [Enzymatic activity/volume] in Seru m or Plasma 10 U/L 7 - 56 [facility] Anion gap 3 in Serum or Plasma 11.0 mmol/L 8.0 - 16.0 [facility] AGE 64 yrs [facility] al NON-AA GFR >60 mL/min [facility] ital AFR AMER GFR >60 [facility] Male GFR In terprentation [...] >32 mL/min Normal ID Date Data Source [id number] 03/04/2020 01:04:00 PM EST [facility] Name Value Range Interpretation Code Description Data Miladys rce(s) Supporting Document(s) Lactate [Moles/volume] in Serum or Plasma 3.4 MMOL/L 0.2 - 2.2 H [facility] ID Date Data Source [id number] 01/29/2020 12:00:00 AM EST [facility] Name Value Range Interpretation Code Description Data Miladys rce(s) Supporting Document(s) SARS coronavirus 2 RNA panel N [facility] This lab was ordered by [facility] C1 TEST DELON TER and reported by [facility]. ID Date Data Source URINE CULTURE 12/23/2019 08:07:27 AM EDT eCW ([facility]) Name Value Range Interpretation Code Description Data Miladys rce(s) Supporting Document(s) URINE CULTURE eCW1 ([facility]) ID Date Data Source UA URINALYSIS 12/23/2019 08:07:21 AM EDT [facility] ([facility]) Name Value Range Interpretation Code Description Data Miladys rce(s) Supporting Document(s) UA URINALYSIS eCW1 ([facility]) ID Date Data Source [id number] 12/23/2019 08:07:15 AM EDT eC ([facility]) Name Value Range Interpretation Code Description Data Miladys rce(s) Supporting Document(s) Hemoglobin A1c/Hemoglobin.total in Blood 6.1 HEMOGLOBIN A1c eC ([facility]) ID Date Data Source [id number] 10/31/2019 05:05:00 PM EDT [facility] Name Value Range Interpretation Code Description Data Miladys rce(s) Supporting Document(s) Free Keys Lt Chains,S 13.4 mg/L 3.3-19.4 [facility] Free Lambda Lt Chains,S 2.0 mg/L 5.7-26.3 Below low normal [facility] Keys/Lambda Ratio,S 6.70 0.26-1.65 Above high normal [facility] ID Date Data Source [id number] 10/14/2019 12:00:00 AM EDT [facility] Name Value Range Interpretation Code Description Data Miladys rce(s) Supporting Document(s) SARS coronavirus 2 RNA panel N [facility] This lab was ordered by [facility] and reported by [facility]. ID Date Data Source [id number] 10/04/2019 02:21:00 PM EDT [facility] ([facility] ) Name Value Range Interpretation Code Description Data Miladys rce(s) Supporting Document(s) Surgical pathology study [facility] test [facility] ) FINAL DIAGNOSIS A - Gastric [...] M.D. 11/12/2019 0847 ID Date Data Source [id number] 09/29/2019 09:20:00 AM EDT [facility] Name Value Range Interpretation Code Description Data Miladys rce(s) Supporting Document(s) SARS coronavirus 2 RNA [facility] This lab was ordered by [facility] and reported by [facility]. ID Date Data Source [id number] 09/21/2019 11:15:00 AM EDT [facility] Name Value Range Interpretation Code Description Data Miladys rce(s) Supporting Document(s) SARS coronavirus 2 RNA [facility] This lab was ordered by [facility] and reported by [facility]. ID Date Data Source [id number] 07/18/2019 09:44:52 AM EDT [facility] Name Value Range Interpretation Code Description Data Miladys rce(s) Supporting Document(s) Progress Note [facility] XJUQTs5kLrLOYkFz90/IUGaxSQMnp1YtSLxgJAh0HEjxPDRxG4HdIPB9dZ3aGHD7BYpZBrAhPyUtOTA7 lbm [file] svyGBvPbf+yo+pN70oj29Xnhjh2pYeId02Jwixj/2E2kvw44dTBeNpGLDS+automatic mold sander/2SwQtbm+SXEtb9qNv [file] ICAgICAgICAgICAgICAgICAgICAgICAgICAgICAgIC AgICAgICAgICAgICAgICAgICAgICAgICAgICAgICAgICAgICAgICAgICAgDQogICAgICAgICAgICAgIC AgICAgICAgICAgICAgICAgICAgICAgICAgICAgICAgICAgICAgICAgICAgICAgICAgICAgICAgICAgIC AgICAgICAgICAgICAgICAgICAgICAgICAgDQogICAg ICAgICAgICAgICAgICAgICAgICAgICAgICAgICAgICAgICAgICAgICAgICAgICAgICAgICAgICAgICAg ICAgICAgICAgICAgICAgICAgICAgICAgICAgICAgICAgICAgDQogICAgICAgICAgICAgICAgICAgICAg ICAgICAgICAgICAgICAgICAgICAgICAgICAgICAgIC AgICAgICAgICAgICAgICAgICAgICAgICAgICAgICAgICAgICAgICAgICAgICAgDQogICAgICAgICAgIC AgICAgICAgICAgICAgICAgICAgICAgICAgICAgICAgICAgICAgICAgICAgICAgICAgICAgICAgICAgIC AgICAgICAgICAgICAgICAgICAgICAgICAgICAgDQog ICAgICAgICAgICAgICAgICAgICAgICAgICAgICAgICAgICAgICAgICAgICAgICAgICAgICAgICAgICAg ICAgICAgICAgICAgICAgICAgICAgICAgICAgICAgICAgICAgICAgDQogICAgICAgICAgICAgICAgICAg ICAgICAgICAgICAgICAgICAgICAgICAgICAgICAgIC AgICAgICAgICAgICAgICAgICAgICAgICAgICAgICAgICAgICAgICAgICAgICAgICAgDQogICAgICAgIC AgICAgICAgICAgICAgICAgICAgICAgICAgICAgICAgICAgICAgICAgICAgICAgICAgICAgICAgICAgIC AgICAgICAgICAgICAgICAgICAgICAgICAgICAgICAg DQogICAgICAgICAgICAgICAgICAgICAgICAgICAgICAgICAgICAgICAgICAgICAgICAgICAgICAgICAg ICAgICAgICAgICAgICAgICAgICAgICAgICAgICAgICAgICAgICAgICAgDQogICAgICAgICAgICAgICAg ICAgICAgICAgICAgICAgICAgICAgICAgICAgICAgIC XpXLJjJDEcMIFuEIOtJFYhEGGnIQSgHYOxAOJsPLOpWUMaXVYdAAAxNZRgJYRcYSCdBBAmCFr4U0uoGW OgOOElGW7mMMu6Zn7+DMcFLhHfQQI9vuLxpE6MHW6tn0LnWXvzAGLzh9XmAJw0MY6ZQEIkHVzlOP2AUI ruyl0MYTLmZKAbaPFAj4wcGiJaKJR9NZUlJtvxJI8B SKCjH4vuajXaETLiOPCSNKmnQKWUDYfrLTDHQXKeHNCsOgKlEtOxFTHySLFaTEFXAJZ6HSJuWsSbTULh KHGmTbSrCUWHTURmTSQoZoUsLPQrBCGwOveiTEJURE3UVjIpG8QcyN84EPIvBLf+Gq4UQL3hf3NwKNa8 VIEzOX1qbw8RCIzZNkDiN8MjtfI9LQC6RSJoWe8NXY PtTFQltNS0YTMoQIDZBtOfS4GdsC95LEYYEy9+TSiofjNlYgcFRxH9RYGvw7EzCVz5TH7DZNNbRZs0mH HvQKBmL4Baa5UvRc44KFKuIhomL9pucqezyqAaINLTOS4mnTpkCM9UXDF6RHBaEblzSdWhKTNpAuq6YY DFGNtMNgQqB6Puq3RkStJ6GSVoSsOdRBpxVKYgGaE5 PF36fGdpRQ9GPJWcGINsRA22MSJ8LGNvBi4ALw7WNmYeSX0nfy9DAROeYELpFvaVBns7LYbsSC8ZbLFq P6PcaAIpf9nSIxXtZ4FDHTUlPLKtVh1RGGDqJvBsXYMzMOcoHS4eSDRrHSKCyGnaurV1LC1ATV9xibSq TC8VMjArAb6lGc1RJtBlM8HwG1QvMUBtYVZAFTnxCO 2JNHueKL1fKP4Ry6BRcFAouU7rdq4RCHCnHZEqLaiweb9JPybpY9X5jVobAFOrHLHgNUUYOZeqUJ0OGN LsQOH4MCH3EnQmLYHCVmQyH55dVI3WQ2Boe26lKmC1OSNmHsMqNAigZB79bSmasrMqcJEqrEhbAA6LIp 4+DQplbmRvYmoNCnhyZWYNCjAgNDcNCjAwMDAwMDAw FEIsKvH3XoHzIh5AJMByEFGuASMnNaBiPGXvUHBwBZgvHJYaOZS5ZnKsFSDzNYYvHE7ZLcIjPGJbFVN1 TFPjMISrJVVsnb1LQGEjGAOwBQV4WnIbQHDdTZOrZNeyQTVjAEY5NDP4WFFvYEGzJR3EEmOhDGMpRKRm QhvkHTCcGCFthu6QYYKoHGYkOuK4QsJnDQSzZHSrCN nlTLBjJNX6JAN5IRGdLWApXY7NDdRsFTDhXBV0PPBtVKYaRKTohw3ZAIQeTDZfADqeYADdDMDcJNNfFH eqYYPbLAHyQBliJCDxUCNwSK1FRqNrDSTpOOHbEPrbITIyAXTrvx0HFZSrGEFwVVjsZmKeALChQDQiRA wgNYAgMMI6TPKjDUTwYUFcQG2YGiUwQOOnBKz9IZkw DOFiBUAhoa1QVJYeTCCqDBdmNWZjWFHcRCTjCKrnIGZoAYMoVLOoKZPyGDSuWL2JZdIwZEGmNrNyJgfv KUNmHTLnzq1ZEKTvNJBaWcQ7WWUcKURwJCJhBNllQBPzQKUaGhMrQTZcUCDmTS1TKbYqOWLzUtWfENBu PWHnNFElna8OVHWvTRAqEzMtGSWjROCqLDYrXHsyOK AaOPJ2XyR6NFMwYDOaEK8BIrGiEOSaVxz9BwPjZCEfZCEirq3ZYMZzNSHsKdW8EPTcFVHvQSKqUSwpIO UtDQSqKZwgRHCkGRUhWV6HJcBjUAUoCiPmFfRqCMAsNFQbau5HAECgZDBoJmAtOEIrALTrMXNsLHgfCE WlNIL3Yxt9NMXvLBJuQP1XDoMbZBXsHeM7QDUcVBNu VPDwqb8NKGMqODAcPPK5EUKcJRGtULSpNYlsFHUyOUS6VlY5RMAxGKYzIW4CZeZrUPQkTsM9UQJmARAc PQYamc8TJQOjJEVqDrCpQUBhTUGgXQDsELjuBBEsQUQ0OIW3WBZeMMTaQY5UOpTrACPtBCb4YLUyQZMz DDZfot7JPYPmPYD5Pvc6VvJzHOLpTLNfVRxtAAVbOS P2ZoWwYKEsDZNaMZ7VAqWtCJXtCOxzEHqmHDCxVLWyxo9DSTWsFWW4FZIwBiSiXOTjIYWbTOacLNUjFO I8TIIcHHRlTJZsVX0MWaBsRATeLSq6VMfePRThGKBhga7FWAHiSXF9HONiVUGnNIJcITCsSGzcCAUrCX BpJoT6PZJxZMReZX1KAwCqWZJbDAU9RXGyZROhCXXi mq1WNZCwMJT0YKv0NgKuYGVcLEOkJNa7umRvqDSoYEb0PR9ZO4KvrgPzAKnCLr7Kd869PKH0ZMVkPm8Z H0eaZw2tZIHcUEDCUd1ZKDb5VXZfZtT6YFY2BOEtRkZ6UdPoUCNmAcScGQS3XOAnOUD+OQk6H9A6Oovs Qil6OIZ9BQQtUwStWbI3ZbCrAnf3NqHtFz5sMZRRXl4+PWkchVTjsGhkVOZDYfPbXTc6OVssVUNTSx0E ID Date Data Source Immature Platelet Fraction 05/24/2019 12:00:00 AM EDT eCW1 ( [facility]) Name Value Range Interpretation Code Description Data Miladys rce(s) Supporting Document(s) 11.9 0.0-9.59 IMMATURE PLATELET FRACTIO N % eCW1 ([facility]) ID Date Data Source Comprehensive Metabolic Profile (CMP) 05/24/2019 12:00:00 AM EDT eCW1 ([facility]) Name Value Range Interpretation Code Description Data Miladys rce(s) Supporting Document(s) 15 7-18 BLOOD UREA NITROGEN eCW1 ([facility]) 68 70-100 GLUCOSE, FASTING eCW1 ([facility]) 0.96 0.55-1.30 CREATININE FOR GFR eCW1 ([facility]) 3.7 3.5-5.1 POTASSIUM SERUM eCW1 ([facility]) > 60.0 >45 GLOMERULAR FILTRATION RATE eCW 1 ([facility]) 142 136-145 SODIUM LEVEL eCW1 ([facility]) 8.7 8.8-10.2 CALCIUM LEVEL eCW1 ([facility]) 101 98-107 CHLORIDE LEVEL eCW1 ([facility]) 35 21-32 CARBON DIOXIDE LEVEL eCW1 (Critical access hospital) 8 7-37 AST/SGOT eCW1 ([facility]) 8.6 6.4-8.2 TOTAL PROTEIN eCW1 ([facility]) 0.5 0.2-1.0 BILIRUBIN,TOTAL eCW1 ([facility]) 33 12-78 ALT/SGPT eCW1 ([facility]) 87 45-117 ALKALINE PHOSPHATASE eCW1 (Critical access hospital) 3.4 3.2-5.2 ALBUMIN eCW1 ([facility]) 0.65 1.00-1.93 ALBUMIN/GLOBULIN RATIO eCW1 ([facility]) ID Date Data Source CBC with Differential 05/24/2019 12:00:00 AM EDT eCW1 ([facility]) Name Value Range Interpretation Code Description Data Miladys rce(s) Supporting Document(s) 5.5 4.0-10.0 WHITE BLOOD COUNT eCW1 ([facility]) 11.6 12.0-15.5 HEMOGLOBIN eCW1 ([facility]) 35.3 36.0-47.0 HEMATOCRIT eCW1 ([facility]) 3.47 4.00-5.40 RED BLOOD COUNT eCW1 ([facility]) 33.4 27.0-33.0 MEAN CORPUSCULAR HEMOGLOB IN eCW1 ([facility]) 101.7 80.0-96.0 MEAN CORPUSCULAR VOLUME e CW1 ([facility]) 15.6 11.5-14.5 RED CELL DISTRIBUTION WID TH eCW1 ([facility]) 32.9 32.0-36.5 MEAN CORPUSCULAR HGB CONC eCW1 ([facility]) 91 150-450 PLATELET COUNT, AUTOMATED eCW1 ([facility]) 71.0 36.0-66.0 NEUTROPHILS % eCW1 ([facility]) 21.0 24.0-44.0 LYMPH % eCW1 ([facility]) 5.7 0.0-5.0 MONO % eCW1 ([facility]) 1.3 0.0-3.0 EOS % eCW1 ([facility]) 0.5 0.0-1.0 BASO % eCW1 ([facility]) 3.9 1.5-8.5 NEUTROPHILS # eCW1 ([facility]) 1.2 1.5-5.0 LYMPH # eCW1 ([facility]) 0.3 0.0-0.8 MONO # eCW1 ([facility]) 0.1 0.0-0.5 EOS # eCW1 ([facility]) 0.0 0.0-0.2 BASO # eCW1 ([facility]) ID Date Data Source [id number] 04/24/2019 05:53:30 PM [facility] Name Value Range Interpretation Code Description Data Miladys rce(s) Supporting Document(s) Progress Note [facility] YJEMNz3vJoSBOrNg28/GPZxqFFFht0IwMKytPUr2PFteIWNgX1CaZNW3pY7hNEV5OPjTIqKoQxJlSdBw lbm RsBhlYDnAkGKKyWybKIyVuUJtvPwazkDWrOY7VgCZ3OOJeW03zXKPhJZJdQ1OsPDS9UqX+Oi4MRFWypY MdWG6JWvmR2L7kv7aQHF5t1B4jLZILc4mygpb7ejLGhWkPzOdyubUu+0LrbTRYhgjOxB2656weFvmveF 4zmKDrMN8sMC8Zmtop+8yQQhT/fhPbgWdZlpj/t/gz nHP7bPc//SVN5skPhW4LA5pP1SPimXZZAMP36qlkL/JyO8XAXYZVL39+fqWTbI0l8dxDN0z4xxA6tPp7 W85Li54yCpCW3hwejtGh4OA33+vid5L4J+OyDi77jlbewcVLccZwGpSw1EcoC7BBpKRkwjtYUzA7n7Wu 46BjTbg83cSezplJssjajgP0esOqkVgNp6k6pEjqd8 XxgVOELdqh2SGomfZf2Hl6XcGu6FuKM4HdwBMFXREkxd7nfgbirq+P4k9W2GDZMAOOnXtS+eExtM54Nr d64M+WO5WfWAV2Pz7wPjHfyqOnfdN1h16TEccmfMofY1cjMJVgbTds9vvYOuvRFxoDwrQp++fvzDFTgi 0TqHtrd8GCtnI1yj0w98iDp+cFKyq91+ulycSgeZbg N2gX5j1y2Xv2jLhDSYkFlD62mmE0T5o50GI3XFuYskUtjYX/0+E/u9ARScPuSntzKmN3caeZib8kgkIn OhB3o4R/QexddIVvHIMf+MxH8ENMcTpcuYvpegkkFeF8KtRaOBmd6n1PUe5UlXQDag1TFBHBeTTgOfKz cSVqDMYjg+LcUK1flVE4p39oyDgEqjazTiktM2e/ lRCesxBq22rFf0LK7K2m+NUKyXTzhWkM/CW4JTedKZBrTp1fZsMkLKis5yb2HH6bVeDFwwL8G1RJEQ3P 51BZ4pSa+wyPSYxC2Z2nthokO/lbAJcdBymCsMlSeRV6in0TuQ5JuMhaAxgbeysndne3b82Q0II2cTVe Aa2eZpJN5KGeaCDFvSDGmkTWGZo5K15gR/DyB634Hy a6q6jBb3ZtyhjKMHUjlO+wd18A/QFElbdrcwar7V8gF7oFkyvtZTCb1H4Q064ZoPV+uuDBgSMaYX7/Jh dLXirOMZL3s5YOxQ4NHSZD+oyZ4YCZrrzBxwsJC5wxXRbRFcxpmUtlGMdHI+MgEpAJFTivVX6Ig465MX eXHFEl7wKvpAaUE+QiwTJQdLduxFfiI1seQilX8E1X zLSqkkkRt62XoIKyyFgGfCSOhfRVJFfNeiAnNQOAJocVvoArgX8gp6f6FPC79OZGEC7kNkJK92lJZEAg J57au0lJfedmKkxwls3hmbh99R66JWfDuVHgpcWWOI2ROtJhExU6LMfNf4uQa+Zb3CtINHpPLOhMxjQK imBoE0i37c0lU8898X65O34bab2VBEQj9Ij5VgleYn [file] MDAwMDAxNyAwMDAwMCBuDQowMDAwMDcyODAzIDAwMD LgDN7WVtIpZIUpVnQ1NwfzYRHcCYWhdp2JANTpZHWlSGE1YqYuZYXuCVLbEPzuAGEiYLQnFjZ7SVBeJM XwVA1YTmIvEGIoTTM9PzCvBQGnEKFrlv9XNSRvSTCqMnS9PLEwTGUsXXUtXFmnCJVaKPP5RaY1QUNvGI VuKN3GYmKfDUZaWXAfRsZiDHZuUVNizw3YPYXyFXOi ECW4OQUeHSCcSELwCBecZSKqPOD7XQUlNIOtUPNdER0OVcGlTBBxGVP8OYxnNFQcTMMbwx5IEPRfRLHc NiC5KUGaUNSqRITbIMxhHWMnQVX5SLjeIVMvNJAiQO3BNcQjEZBeYBh4WAlkNXSxPUAsvh6PPGUcNIZz CTP8DaKuHNJoGZIdHHnvKEEiJOFvPZD8CRVnNEYhPO 8WDzTqLHDqGlP1QgDtPALgYBLzde3CUWWlJFTeIPtxZGLwRVOmDCFiRFfoUXAlVQI7KFI0EZGaTDIqNF 4TCoJgIBAkBqy2RSqmMRFwJCNucc4OKOGcNJVzHtl0UpQkXTGtPPIuOMxpYSExZFSkPzLrQTMoPRQjCQ 8MPlMuMUGzAcU9XhedUHNrOVSgkd8HZEOnUBQaGout SzWqTXRqBYSsLRkpTWUlOOT0HUXaULRaZWNrHI3VOuYpCBNpNxD9BkelRATeQXZvid2ZSIVnBAPnDsh4 IWHgCTFuIELeLRjwCTDeCLR4IzWiUZVoYPJcTZ3PZfUvILCkHji3WckhQZYwTDQfes2RNAHwCOX4ZPk6 LHUjSRNwHPWhIQzqKPAzSBEvQPo1UDQhQEWyBR3THx FiZUGbDZZvSTkzPDVgCQQwnn0CHAIsPGR9GYNxDWYtIJVsDRSvUScxTPVoCUK9WLp6WHXeLTUyQE7XJw KiJUKtUTzbVXPaZNQzHKCxyl1NSYTwYHP7OOUuHwPyTVGtFWGgEVccVZQvOKC3QhOgGHScWNRuPC0XTq YcHUVyETI7RnYxRLEfHPXhly4EZIPsXTG6Axq8DgMg WAEcDHRjWVvzQNYxQGJ8VZvdAMMtIZIxDY0EUjRbYRQlNSD8YQboOCMxGBZekw7ALUTnJON1OiCnHuOw RZUhOOAmQAvzDDVqCZQ1SEXuMJYkMQCaQZ6KTlAlQVAvOIfiYJRjEZIwVZMsps8GIPOjBOI7MfQ8ITTa KVYuDEZoQFgqCVSiCMX6CxTfWIYpXFIkAA5WMsWmXS HaXKi2UuNrXJMhYAKnwa8OXUGlCTU4VUplPcTePULhQWTdUOcmLVZxQKN6NCNuXRYiBLJlQZ3EXhDbAN UqCpQ6XMCzIKQjLQNrvp9KXFNrWXF6AXy3DoPkLMLrFDKcLFghIRMxTBtoWYf8UFBdRFZkSK6PAsBjPD TpRxBlXfZoJMDpWHHzau9DLCGbBCB0SOT4ZCTtWKMy CLLoAJlkEFOkFJvyRPE8NKXyDVHgPU0KVgFhNIJwJxR2WJBtDXVlCURuif3VXBPbXDB5Xgc7AKUlYLBs PGYxHQxiCDCvFJxbZNo5FGZvXMHrIS1EYiYxUWKrNpJ4SdjgZGRhQFDgor2IHVPzAVH7HLrsKXCcORCk VBJvATkxAOKhJEp3CZg6YOUjANTlRL4ETzAgQRrrSU NFPgg8EFggX8b2RGA3Va9OB9Lcp4OcHsMlAPLMYMimPM2gtnAaFWNgRn7UP1eLPcyuDQStRfWhJ0IjKX YqNvifQdPbBcuzASTeSHJhOIUhPO3rTOV5OMGwLsJwNOYjZEU3MVCaIDWuDIX9E1HmXdXxZWR6DzJeBE 0LHe2QRhQ9BBT7yMYgWa3MNeYaNqaTOnUfMC8VGFz= ID Date Data Source [id number] 03/21/2019 03:21:01 PM [facility] Name Value Range Interpretation Code Description Data Miladys rce(s) Supporting Document(s) Flow cytometry study [facility] ID Date Data Source [id number] 03/22/2019 05:49:00 PM [facility] Hematopathology Report See Addendum Rosy wName: JEREMI MALLOY MMRN: [id number] Number: [id number] Date: 03/20/2019 00:00Received Date: 03/21/2019 13:27Physician(s): MELIZA LANDRUM MD, YILIN MDCopy To:[facility]s) ReceivedA: Bone Marrow, Flow Cytometry, received [...] Signed Out03/22/2019 InterpretationPERIPHERAL BLOOD: CBC performed at [facility] on 03/20/2019 WBC 5.8 K/uLRBC *3.82 M/uLHgb 12.5 g/dLHct 37.8 %MCV *99.0 fLMCH 32.7 pgMCHC 33.1 g/dLRDW 13.8 %Platelets *133 K/ulDifferential Count (100 cells): 2 % N. Band Forms55 % Xhikhtdkyyl76 % Mberrkuzvlq23 % Large Granular Lymphocytes 4 % Monocytes-------100 % A peripheral blood film is reviewed. Rouleaux formation is increased.BONE MARROW ASPIRATE:Differential Count (100 cells):40 % Erythroid Precursors 1 % Blasts 3 % Promyelocytes 5 % N. Mqwfwhhlcv36 % N. Metamyelocytes and Band Forms11 % Neutrophils 3 % Gzeyiudvwmw12 % Lymphocytes 1 % Monocytes 7 % Plasma Cells--------100 % Morphology: A single hypercellular particle is seen. No dysplasia ispresent. Megakaryocytes are normal. Some plasma cells appear immature withsmall nucleoli. Lymphoid Panel: [place] [id number] following markers were assayed: CD45 (gate), CD2, CD3, CD4, CD5, CD7,CD8, CD10, CD19, CD20, CD33, CD34, CD38, CD56, CD57, CD64, CD117, CD123,HLA-DR, Keys, and Lambda.# events: [id number]: 92%Flow Cytometry Differential (CD45/SSC)Lymphocyte [place]: 51%CD45 dim [place]: 1%Monocyte [place]: 2%Granulocyte Gat e: 35%Nucleated/Erythroid [place]: 3%The lymphocyte gate showsB-cells (CD19): 4%T- cells (CD3): 84%NK-cells (CD3-/CD56+): 9%Keys/Lambda Ratio: 1.4CD4/CD8 Ratio: 2.7Results: (expressed as % of lymphocyte gate)T-cell Markers: CD2 = 90, CD3 = 84, CD3/CD4 = 62, CD3/CD8 = 26, CD5 = 84,CD7 = 83, CD3/57 = 21B-cell markers: Keys = 2, Lambda = 1, CD19 = 4, CD20 = 4, CD19/10 = 0,CD19/CD5 = 0, CD38/CD20 = 3Light chain as % of B-Cells: CD19/Keys = 50, CD19/Lambda = 38,CD19/CD5/Keys = 1, CD19/CD5/Lambda = 0,CD19/CD10/Keys = 3, CD19/CD10/Lambda = 3NK cell Markers: CD56 = 20, CD57 = 24Other Markers: CD10 = 0, CD38 = 53Results: (expressed as % of CD45 dim gate)T-cell Markers: CD2 = 20, CD3 = 14, CD3/CD4 = 11, CD3/CD8 = 5, CD5 = 27,CD7 = 21, CD3/57 = 2B-cell markers: Keys = 6, Lambda = 3, CD19 = 3, CD20 = 3, CD19/10 = 2,CD19/CD5 = 0, CD38/CD20 = 3Light chain as % of B-Cells: CD19/Keys = 25, CD19/Lambda = 8,CD19/CD10/Keys = 0, CD19/CD10/Lambda = 0NK cell Markers: CD56 = 9, CD57 = 5Basophil Markers: CD123 (HLA-DR-) = 4Other Markers: CD10 = 12, CD38 = 67, CD33 = 24, CD34 = 23, CD64 = 3, CD117= 17, CD123 = 9, HLA-DR = 40Myeloma Panel for Gama Perry MM [id number] following markers were assayed: CD45 (cell gate), CD138 (plasma cellgate), CD19, CD20, CD38, CD56, cytoplasmic Keys, and cytoplasmic Lambda.(Please note, that Cytoplasmic Keys and Cytoplasmic Lambda are used todetect plasma cells, while surface Keys and Lambda are for lymphocytes).# events: [id number] NOTE: Routinely a minimum of 500,000 events are collectedin each panel tube. Due to sample cellularity and/or processing thisnumber was not ac hievable for this sample.Viability: 90%Flow Cytometry Differential:Lymphocyte [place]: 34%CD45 dim [place]: 0%Monocyte [place]: 4%Granulocyte [place]: 55%NRBC [place]: 4%CD138 Plasma Cell [place]: 0.5%Results: (expressed as % of lymphocyte gate)B- Cells (CD19): 4%CD19 = 4, CD20 = 4Light chain as % of B-Cells: Cytoplasmic Keys/CD20 = 48, CytoplasmicLambda/CD20 = 33Results: (expressed as % of total CD138+ plasma cell gate)CD38 = 99, CD56 = 98, CD38/56 = 98, CD19 = 3, CD20 = 73Cytoplasmic Keys/CD138 = 90, Cytoplasmic Lambda/CD138 = 0 Results- [...] were developed and theirperformance characteristics determined by [facility] Pathology department.They have not been cleared or approved by the US Food and DrugAdministration. The FDA has determined that such clearance or approval isnot necessary. Name Value Range Interpretation Code Description Data Miladys rce(s) Supporting Document(s) ID Date Data Source [id number] 03/27/2019 03:24:00 PM [facility] Cytogenetics ReportName: JEREMI MALLOY MM RN: [id number] Number: [id number] Date: 03/20/2019 00:00Received Date: 03/21/2019 13:59Physician(s): MELIZA LANDRUM MD, YILIN MDSpecimen(s) ReceivedA: Bone Marrow (Karyotype Analysis)Clinical HistoryLytic lesions, seronegative rheumatoid arthritis, recently treated forlatent TBTEST REQUESTED/PERFORMED: Karyotype Analysis and Fluorescence in situhybridization - FISH DiagnosisFISH RESULTS:[facility] Myeloma panel:nuc jeannine(CDKN2C,CKS1B)x2[97/100],(5p15.31,EGR1)x3[90/100],(S96B827,13q34)x2[95/100],( IgHx1)[91/100],(TP53x1,P13T5a1)[25/100],(TP 53x1,XV97wduy9,G46Y6w0)[17/100],(TP53,D17Z1)x1[10/100]CEP 7/Q5M420 (7q31): nuc jeannine (D7Z1,M3D442)x2[98/100] CEP 9: nuc jeannine (D9Z1x3)[43/100],(D9Z1x4)[38/100] INTERPRETATION: Hyperdiploidy [...] ([id number]). Electronically Signed By Piper Wesley, Ph.D., [facility], Director ofCytogenetics 03/27/2019 15:24:33Gross DescriptionDATA:SPECIMEN TYPE: BONE MARROW (Karyotype Analysis) / ISOLATED PLASMA CELLS(FISH) CULTURE TYPE: 24 HOUR UNSTIMULATEDADDITIONAL CELLS EVALUATED FOR FISH: 700 ISCN NOMENCLATURE: nuc jeannine(CDKN2C,CKS1B)x2[97/100],(5p15.31,EGR1)x3[90/100],(D7Z1,M1Z652)x2[98/100],(D9 Z1x3)[43/100],(D9Z1x4)[38/100],(U86M741,13q34)x2[95/100],(IgHx1)[91/100],(TP53x1 ,D17Z1 x2)[25/100],(TP53x1,QT76anwm7,J14D1g2)[17/100],(TP53,D17Z1)x1[10/100]COMMENTS:Fl uorescence in situ hybridization (FISH) studies were performed toevaluate specifically for abnormalities of chromosomes 1, 5, 7, 9, 13, 14,and 17, which have been associated with multiple myeloma. The probes wereobtained from [employer] or [employer]. Hybridization wascarried out as per the stated [...] - 2 signals each locus CEP 7/LSI L9R488 D7Z1/7q31 greenorange 100 98% - 2 signals each locus CEP 9 D9Z1 green 100 43% - 1aypaobq39% - 4 signals 19% - 2 signals D33Z684 +control 13q14.213q34 spectrum orange/redspectrum green 100 95% [...] Name Value Range Interpretation Code Description Data [facility](s) Supporting Document(s) ID Date Data Source [id number] 03/11/2019 09:44:00 AM GENNARO BARCENAS ([facility], ) Name Value Range Interpretation Code Description Data [facility](s) Supporting Document(s) Surgical pathology study (SEE NOTE) SWAPNA ([facility], ) FINAL DIAGNOSIS Gastric antrum, biopsy: [...] MD 03/14/2019 1121 ID Date Data Source [id number] 03/10/2019 01:04:55 PM EST [facility] Name Value Range Interpretation Code Description Data Miladys rce(s) Supporting Document(s) Progress Note [facility] AKHQRc5kYeLJCpSp00/RTBqeOALtx1LkFOxfUDw7CRhfHIMiX6LrCBH9uL0sFFE5TFdSPkOjHPpuWxR3 lbm [file] AgICAgICAgICAgICAgICAgICAgICAgICAgICAgICAg ICAgICAgICAgICAgICAgICAgICAgICAgICAgICAgICAgICAgICAgICAgDQogICAgICAgICAgICAgICAg ICAgICAgICAgICAgICAgICAgICAgICAgICAgICAgICAgICAgICAgICAgICAgICAgICAgICAgICAgICAg ICAgICAgICAgICAgICAgICAgICAgICAgDQogICAgIC AgICAgICAgICAgICAgICAgICAgICAgICAgICAgICAgICAgICAgICAgICAgICAgICAgICAgICAgICAgIC AgICAgICAgICAgICAgICAgICAgICAgICAgICAgICAgICAgDQogICAgICAgICAgICAgICAgICAgICAgIC AgICAgICAgICAgICAgICAgICAgICAgICAgICAgICAg ICAgICAgICAgICAgICAgICAgICAgICAgICAgICAgICAgICAgICAgICAgICAgDQogICAgICAgICAgICAg ICAgICAgICAgICAgICAgICAgICAgICAgICAgICAgICAgICAgICAgICAgICAgICAgICAgICAgICAgICAg ICAgICAgICAgICAgICAgICAgICAgICAgICAgDQogIC AgICAgICAgICAgICAgICAgICAgICAgICAgICAgICAgICAgICAgICAgICAgICAgICAgICAgICAgICAgIC AgICAgICAgICAgICAgICAgICAgICAgICAgICAgICAgICAgICAgDQogICAgICAgICAgICAgICAgICAgIC AgICAgICAgICAgICAgICAgICAgICAgICAgICAgICAg ICAgICAgICAgICAgICAgICAgICAgICAgICAgICAgICAgICAgICAgICAgICAgICAgDQogICAgICAgICAg ICAgICAgICAgICAgICAgICAgICAgICAgICAgICAgICAgICAgICAgICAgICAgICAgICAgICAgICAgICAg ICAgICAgICAgICAgICAgICAgICAgICAgICAgICAgDQ ogICAgICAgICAgICAgICAgICAgICAgICAgICAgICAgICAgICAgICAgICAgICAgICAgICAgICAgICAgIC AgICAgICAgICAgICAgICAgICAgICAgICAgICAgICAgICAgICAgICAgDQogICAgICAgICAgICAgICAgIC AgICAgICAgICAgICAgICAgICAgICAgICAgICAgICAg CASkNNXmZEKoCCIsQWBlFZVkZHVjHKQwWLMnBDIaXRPfTGLhKYBlWJTqZAReCVOwAOLeZGg3F7snACSx XLOiCY3sARv9Rv0+CToCEaCcWCH5hjMvsK8CIG6of5AfHZsmITOuv8VzSKf9OO7QHJBtNTcnBO0VRHil rs2YUTNzZURzvQMJe4ucOhChNBB0EEXaNrvcVC0TQP PyQ8epxbTgOBCtMPUIZQviYSVOCMncVSJXNVBuJJAvJlBaIjNnTRYsTCAlXFKCMVG7EFBmXqAuSHpxGP 0Zc8UhhSA2BYa+Fi8XCF4qn4EbELziWDFmDG2tlj0IZWkJVgPqH6MdmdK4COF7MOBuHj0WKNNqMDQlaJ UcWIRmPEHFLkGeG0DnvQ29NEHCZs0+DQplbmRvYmoN ZrQ1GZVyr0KiKFa7GR9JVIQvIAx2yBDsYIDhS4Hov9UrNd25MZAsTeamL3bxqozbgmLpPUVGJD8haFwb LO4TCVZ8TXMePtOaGgTnUAryZRN3XRSyVD9cLWibGX3DJBS3THkuBGSiHQFtQ4hAXrVxCVLfFHLwpLir OW5AHcIpH4QrwvAbaJFrKCZeCTXLMr0+DQplbmRvYm bOTcK0JDNvi3PjEWf8OK5SRDFuRVbxFX4IVFZekG2iTSabFP4VVvJiCpDrPCNCWwJoA02chKTzKFo3Q7 VtYmVkZGVkRmlsZXMgPDwvTmFtZXMgWyBdDQogID4+ID4+CFipBZ9DTWsmtyYnDNMcQj8ASMZgUEYoQE 2iPFZvMSYqQ7Q6sNypVTEKNlUfF8dsphtkRS3nPMRf G762dXvslhNqDYQ7AJQgAc7QRZXgZCH5UFJavCCnNyJaJWGRZUkoZR8IvLHrVBP6oB1xMNseJCOoORWf O7wIUzVrgUwoKA86dLxiskUysPZxZMr+Cb2QUO9zi1KfKQx3qbRmPIlxNWX6MLvjKZKeHROmFETlKZS4 WDO9XBXQDbTzTAAdFMSfTJfpWGDrCHAiux5EOXJcTK TdXUB4ZmLkTBFySJTeFOdfPPNwLKK4Vei1CHNvYOWoJX8GLtOfDXPkAQReNEaxSAFbZCVmat3RTMRfVB BuGdolBaDuQKPuHIFjRYxnOMTrXLN0TBU1SEZmQCTcBJ3CWjSfVJGmCUsaCgGnMRQkPCRywy5TZNEfCG AdGvJ0OUOmMJJcOVIcDMxsOXKhLOCxUbcwQRZgSCQm XJ3XQgHwTDKkQLY6MluhFQUuVKQwim4UFLBsYSUcFnS4NTLzOOBzLBDtFOtpDACfECPlKZTmGKBaHBKz FE6PArApZHXuUZmcTuNrGSZrVJWmvd6ZSKKeSNNnUzSvMpVwDFWxOAAyQYodGYDvLLZ5MHX9ZBDnDXEb GR1GCxNlBFQfXUt0RqWyWBUkBDGuaz9CVMFeBWWoQZ I2XkGpDQFgDJBbMPsmDSKkUSOpXdypPQUpGYWjYV4ERdWcQWNcIaH5PsWtXVNaIHCtdq3QKLPrYXPnTh unNEMeAMCxOWEtZJweNUWzNMTiKHIqVQDrEZCtUC1THhQiFQOhTjQ6MwLoWFDeSCGtbk0OWRNdABGjRQ D9RyCkZJZgFEHiBKnaDRMrSMY0WeShCBNaRGHdMP3X ZwMiRBSzWbZ2BDEzSJJbGJUxhs2RNOZuCDRlRxZqKkCpLKAiZXDrOYuxPSUlDFR6CgG4CHGhKNMbCK1S UpRsAXQwJoM8TbGsGZMtYHWudk7GHWVxHNMsQjtgCTTuCXSjBRRiTYvdSNZlWTQ9MdT1OSNzTIZfMI8W QuHkQKZxZwp8ENFtNLEaZUOyna2YFEAeHUQiWXZzGW BjLTAjUZYkSDlpXBXtQSB6GDQ1NLFcOILmPE3QCkIsMZCpHnh1XoGzUPOpSVGtcc5BKTXiUPUqRTn9Dc JvKKSnQYVzNJwwITTiFCGdAZXpAXOgZSPpST8UUiVmAJmhQMWHLln8XChiY3a8EIGmDm9CU3Ogl4NuOc GeODOOCWjwQI0tezCgKQXkCp3CJ4vNYle1VRIqD4B2 EwazMUceFGS8JXpfSIBtLQsnLukpKydjWM5pXPH0LWLwAqw5OjY4VXQsCwt7YOT1GbW5HDCvL8DeKqFy JxRxWV8XUs0STrT1SEY1xYHtAv0WUQXvHWYWBjCvQS4KDUd= ID Date Data Source URINE TOTAL PROTEIN 24 HOUR 02/21/2019 12:00:00 AM EST eCW1 ([facility]) Name Value Range Interpretation Code Description Data Miladys rce(s) Supporting Document(s) 210.0 50-150 TOTAL PROTEIN 24 HOUR URI NE eCW1 ([facility]) 6.0 0-12 URINE TOTAL PROTEIN eCW1 ([facility]) ID Date Data Source URINE CREATININE 24 HOUR 02/21/2019 12:00:00 AM EST eCW1 ([facility]) Name Value Range Interpretation Code Description Data Miladys rce(s) Supporting Document(s) 3500 TOTAL VOLUME, URINE eCW1 ([facility]) 1309.0 600-1800 CREATININE 24 HOUR, URINE eCW1 ([facility]) 37.4 CREATININE, URINE eCW1 ([facility]) ID Date Data Source LDH LACTATE DEHYDROGENASE 02/19/2019 12:00:00 AM EST eCW1 ([facility]) Name Value Range Interpretation Code Description Data Miladys rce(s) Supporting Document(s) 138 84-246 LDH LACTATE DEHYDROGENASE eCW1 ([facility]) ID Date Data Source SERUM PROTEIN ELECTROPHORESIS 02/19/2019 12:00:00 AM EST eCW 1 ([facility]) Name Value Range Interpretation Code Description Data Miladys rce(s) Supporting Document(s) 42.5 55.8-66.1 ALBUMIN % eCW1 ([facility]) 7.7 7.1-11.8 MQXNQ-3-PAMTXIXEF % eCW1 ([facility]) 4.0 4.7-7.2 JAFC-9-DUKHGWOHJ % eCW1 ([facility]) 3.2 2.9-4.9 PYMXT-4-DUNRKMDQ % eCW1 ([facility]) 14.3 3.2-6.5 NNVS-4-TOAHBUVUE % eCW1 ([facility]) 4.08 3.29-5.55 ALBUMIN eCW1 ([facility]) 1.3 11.1-18.8 GAMMA GLOBULIN % eCW1 ([facility]) 0.31 0.17-0.41 LYLMI-1-WQTEJCFRX eCW1 ([facility]) 0.74 0.42-0.99 ZVAVF-0-JTHZPRKDE eCW1 ([facility]) 0.12 0.65-1.58 GAMMA GLOBULINS eCW1 ([facility]) 9.6 6.4-8.2 TOTAL PROTEIN eCW1 ([facility]) 3.96 0.19-0.55 WEZG-1-SRAIGJQUY eCW1 ([facility]) 0.38 0.28-0.60 UKDM-7-QWTQOMMUK eCW1 ([facility]) SEE COMMENT SPEP INTERPRETATION eCW1 ([facility]) ID Date Data Source MAGNESIUM LEVEL 02/19/2019 12:00:00 AM EST eCW1 ([facility]) Name Value Range Interpretation Code Description Data Miladys rce(s) Supporting Document(s) 1.8 1.8-2.4 MAGNESIUM LEVEL eCW1 ([facility]) ID Date Data Source Basic Metabolic Profile (BMP) 02/19/2019 12:00:00 AM EST eCW 1 ([facility]) Name Value Range Interpretation Code Description Data Miladys rce(s) Supporting Document(s) 119 70-100 GLUCOSE, FASTING eCW1 ([facility]) 13 7-18 BLOOD UREA NITROGEN eCW1 ([facility]) > 60.0 >45 GLOMERULAR FILTRATION RATE eCW 1 ([facility]) 0.96 0.55-1.30 CREATININE FOR GFR eCW1 ([facility]) 140 136-145 SODIUM LEVEL eCW1 ([facility]) 3.6 3.5-5.1 POTASSIUM SERUM eCW1 ([facility]) 101 98-107 CHLORIDE LEVEL eCW1 ([facility]) 32 21-32 CARBON DIOXIDE LEVEL eCW1 ([facility]) 8.8 8.8-10.2 CALCIUM LEVEL eCW1 ([facility]) ID Date Data Source FREE KAPPA & LAMBDA LT CHAIN S 02/19/2019 12:00:00 AM EST eC W1 ([facility]) Name Value Range Interpretation Code Description Data Miladys rce(s) Supporting Document(s) 14.22 0.26-1.65 KAPPA/LAMBDA RATIO SERUM eCW1 ([facility]) 32.7 3.3-19.4 FREE KAPPA LIGHT CHAINS S DIANNA eCW1 ([facility]) 2.3 5.7-26.3 FREE LAMBDA LIGHT CHAINS SERUM eCW1 ([facility]) ID Date Data Source C REACTIVE PROTEIN QUANTITATIV (At [facility]) 02/19/2019 12:00 :00 AM EST eCW1 ([facility]) Name Value Range Interpretation Code Description Data Miladys rce(s) Supporting Document(s) < 0.30 0.00-0.30 C REACTIVE PROTEIN QUANTI TATIV eCW1 ([facility]) ID Date Data Source BETA 2 MICROGLOBULIN 02/19/2019 12:00:00 AM EST eCW1 ([facility]) Name Value Range Interpretation Code Description Data Miladys rce(s) Supporting Document(s) 3.2 0.6-2.4 BETA 2 MICROGLOBULIN eCW1 ([facility]) Procedure Social History Code Duration Value Status Description Data Source(s ) Smoking 04/09/2020 12:00:00 AM EST Former Smoker completed Former Smoker eCW1 ([facility]) Alcohol intake 04/08/2020 12:00:00 AM EST Not Currently completed [facility] Smoking 04/08/2020 12:00:00 AM EST Former smoker completed Former smoker [facility] Smoking 03/24/2020 12:00:00 AM EST Former Smoker completed Former Smoker eCW1 ([facility]) Smoking 03/24/2020 12:00:00 AM EST Former Smoker completed Former Smoker eCW1 ([facility]) Smoking 03/24/2020 12:00:00 AM EST Former Smoker completed Former Smoker eCW1 ([facility]) Smoking 03/24/2020 12:00:00 AM EST Former Smoker completed Former Smoker eCW1 ([facility]) Smoking 03/24/2020 12:00:00 AM EST Former Smoker completed Former Smoker eCW1 ([facility]) Smoking 12/20/2019 12:00:00 AM EDT Former Smoker completed Former Smoker eCW1 ([facility]) Smoking 12/20/2019 12:00:00 AM EDT Former Smoker completed Former Smoker eCW1 ([facility]) Smoking 12/20/2019 12:00:00 AM EDT Former Smoker completed Former Smoker eCW1 ([facility]) Smoking 12/20/2019 12:00:00 AM EDT Former Smoker completed Former Smoker eCW1 ([facility]) Smoking 09/19/2019 12:00:00 AM EDT Former Smoker completed Former Smoker eCW1 ([facility]) Smoking 05/07/2019 12:00:00 AM EST Patient is a former smoker completed Patient is a former smoker MEDENT ([facility], ) Alcohol intake 04/12/2019 12:00:00 AM EST Current non-d korina of alcohol (finding) completed Current non-drinker of alcohol (finding) [facility] Cigarette pack-years 04/12/2019 12:00:00 AM EST UNK completed [facility] Cigarettes smoked current (pack per day) - Reported 04/12/19 20 12:00:00 AM EST UNK completed [facility] Smoking 04/12/2019 12:00:00 AM EST Former smoker completed Former smoker [facility] Alcohol intake 03/10/2019 12:00:00 AM EST Current non-d korina of alcohol (finding) completed Current non-drinker of alcohol (finding) [facility] Cigarette pack-years 03/10/2019 12:00:[address] [facility] Cigarettes smoked current (pack per day) - Reported 03/10/20 19 12:00:00 AM EST UNK completed [facility] Smoking 03/10/2019 12:00:00 AM EST Former smoker completed Former smoker [facility] Vital Signs ID Date Data Source UNK Name Value Range Interpretation Code Description Data Source(s) Oxygen saturation in Arterial blood by Pulse oximetry 96 % 96 % [facility] Body mass index (BMI) [Ratio] 29.95 kg/m2 29.95 kg/m2 [facility] Body weight 81.647 kg 81.647 kg [facility] Body height 165.1 cm 165.1 cm [facility] Diastolic blood pressure 90 mm[Hg] 90 mm[Hg] [facility] Systolic blood pressure 130 mm[Hg] 130 mm[Hg] [facility] Diastolic blood pressure 84 mm[Hg] 84 mm[Hg] eCW1 ([facility]) Systolic blood pressure 150 mm[Hg] 150 mm[Hg] e CW1 ([facility]) Body temperature 97.2 [degF] 97.2 [degF] eCW1 ( [facility]) Respiratory rate 18 /min 18 /min eCW1 ([facility]) Heart rate 97 /min 97 /min eCW1 ([facility]) Body mass index (BMI) [Ratio] 32.11 kg/m2 32.11 kg/m2 eCW1 ([facility]) Body height 64.5 [in_i] 64.5 [in_i] eCW1 ([facility]) Body weight 190 [lb_av] 190 [lb_av] eCW1 ([facility]) Diastolic blood pressure 76 mm[Hg] 76 mm[Hg] eCW1 ([facility]) Systolic blood pressure 130 mm[Hg] 130 mm[Hg] e CW1 ([facility]) Body temperature 96.9 [degF] 96.9 [degF] eCW1 ( [facility]) Respiratory rate 18 /min 18 /min eCW1 ([facility]) Heart rate 82 /min 82 /min eCW1 ([facility]) Body mass index (BMI) [Ratio] 31.43 kg/m2 31.43 kg/m2 eCW1 ([facility]) Body height 64.5 [in_i] 64.5 [in_i] eCW1 ([facility]) Body weight 186 [lb_av] 186 [lb_av] eCW1 ([facility]) Body surface area Derived from formula 1.86 m2 1.86 m2 [facility], [facility] Body weight 83.462 kg 83.462 kg [facility] ([facility], ) [place] body weight 110 [lb_av] 110 [lb_av] MEDEN T ([facility], ) Body mass index (BMI) [Ratio] 33.1 kg/m2 33.1 k g/m2 [facility] ([facility], ) Body weight 184.00 [lb_av] 184.00 [lb_av] MEDEN T ([facility], ) Body height 62.50 [in_i] 62.50 [in_i] MEDENT ([facility], ) 5'2.50" Diastolic blood pressure 68 mm[Hg] 68 mm[Hg] MEDENT ([facility], ) Systolic blood pressure 122 mm[Hg] 122 mm[Hg] M EDENT ([facility], ) Diastolic blood pressure 60 mm[Hg] 60 mm[Hg] eCW1 ([facility]) Systolic blood pressure 112 mm[Hg] 112 mm[Hg] e CW1 ([facility]) Body temperature 97.4 [degF] 97.4 [degF] eCW1 ( [facility]) Respiratory rate 18 /min 18 /min eCW1 ([facility]) Heart rate 77 /min 77 /min eCW1 ([facility]) Body mass index (BMI) [Ratio] 31.09 kg/m2 31.09 kg/m2 W1 ([facility]) Body height 64.5 [in_us] 64.5 [in_us] eCW1 ([facility] Body weight Measured 184 [lb_av] 184 [lb_av] eC W1 ([facility]) Diastolic blood pressure 70 mm[Hg] 70 mm[Hg] eCW1 ([facility]) Systolic blood pressure 120 mm[Hg] 120 mm[Hg] e CW1 ([facility]) Body temperature 97.3 [degF] 97.3 [degF] eCW1 ( [facility]) Respiratory rate 18 /min 18 /min eCW1 ([facility]) Heart rate 74 /min 74 /min eCW1 ([facility]) Body mass index (BMI) [Ratio] 30.59 kg/m2 30.59 kg/m2 eCW1 ([facility]) Body height 64.5 [in_us] 64.5 [in_us] eCW1 ([facility]) Body weight Measured 181 [lb_av] 181 [lb_av] eC W1 ([facility]) Body surface area Derived from formula 1.87 m2 1.87 m2 MEDENT ([facility], ) Body weight 84.823 kg 84.823 kg [facility] [place] body weight 110 [lb_av] 110 [lb_av] MEDEN T ([facility]) Body mass index (BMI) [Ratio] 33.7 kg/m2 33.7 k g/m2 [facility] ([facility]) Body weight 187.00 [lb_av] 187.00 [lb_av] MEDEN T ([facility]) Body height 62.50 [in_i] 62.50 [in_i] MEDENT ([facility]) 5'2.50" Oxygen saturation in Arterial blood by Pulse oximetry 98 % 98 % [facility] ([facility]) Room Air Heart rate 77 /min 77 /min [facility] ([facility]) Diastolic blood pressure 68 mm[Hg] 68 mm[Hg] [facility] ([facility]) Systolic blood pressure 118 mm[Hg] 118 mm[Hg] [facility] ([facility]) Body weight 84.370 kg 84.370 kg [facility] ([facility]) Body mass index (BMI) [Ratio] 33.5 kg/m2 33.5 k g/m2 [facility] ([facility]) Body weight 186.00 [lb_av] 186.00 [lb_av] MEDEN T ([facility]) Body height 62.50 [in_i] 62.50 [in_i] [facility] ([facility]) 5'2.50" Diastolic blood pressure 77 mm[Hg] 77 mm[Hg] [facility] ([facility]) Systolic blood pressure 148 mm[Hg] 148 mm[Hg] [facility] ([facility]) Body weight 84.029 kg 84.029 kg [facility] ([facility]) Body mass index (BMI) [Ratio] 33.3 kg/m2 33.3 k g/m2 [facility] ([facility]) Body weight 185.25 [lb_av] 185.25 [lb_av] MEDEN T ([facility]) Body height 62.50 [in_i] 62.50 [in_i] MEDENT ([facility]) 5'2.50" Diastolic blood pressure 72 mm[Hg] 72 mm[Hg] MEDENT ([facility], ) Systolic blood pressure 112 mm[Hg] 112 mm[Hg] M EDENT ([facility], ) Diastolic blood pressure 76 mm[Hg] 76 mm[Hg] eCW1 ([facility]) Systolic blood pressure 120 mm[Hg] 120 mm[Hg] e CW1 ([facility]) Body temperature 97.2 [degF] 97.2 [degF] eCW1 ( [facility]) Respiratory rate 17 /min 17 /min eCW1 ([facility]) Heart rate 70 /min 70 /min eCW1 ([facility]) Body mass index (BMI) [Ratio] 31.77 kg/m2 31.77 kg/m2 W1 ([facility]) Body height 64.5 [in_us] 64.5 [in_us] eCW1 ([facility]) Body weight Measured 188 [lb_av] 188 [lb_av] eC W1 ([facility]) Diastolic blood pressure 80 mm[Hg] 80 mm[Hg] eCW1 ([facility]) Systolic blood pressure 132 mm[Hg] 132 mm[Hg] e CW1 ([facility]) Body temperature 97.5 [degF] 97.5 [degF] eCW1 ( [facility]) Respiratory rate 18 /min 18 /min eCW1 ([facility]) Heart rate 89 /min 89 /min eCW1 ([facility]) Body mass index (BMI) [Ratio] 31.87 kg/m2 31.87 kg/m2 eCW1 ([facility]) Body height 64.5 [in_us] 64.5 [in_us] eCW1 ([facility]) Body weight Measured 188.6 [lb_av] 188.6 [lb_av ] eCW1 ([facility]) Systolic blood pressure 134 mm[Hg] 134 mm[Hg] A THENA ([facility]) Body height 65 [in_i] 65 [in_i] KIMANI ([facility]) Diastolic blood pressure 74 mm[Hg] 74 mm[Hg] KIMANI ([facility]) Diastolic blood pressure 70 mm[Hg] 70 mm[Hg] eCW1 ([facility]) Systolic blood pressure 122 mm[Hg] 122 mm[Hg] e CW1 ([facility]) Body temperature 97.9 [degF] 97.9 [degF] eCW1 ( [facility]) Respiratory rate 18 /min 18 /min eCW1 ([facility]) Heart rate 81 /min 81 /min eCW1 ([facility]) Body mass index (BMI) [Ratio] 31.26 kg/m2 31.26 kg/m2 W1 ([facility]) Body height 64.5 [in_us] 64.5 [in_us] eCW1 ([facility]) Body weight Measured 185 [lb_av] 185 [lb_av] eC W1 ([facility]) ID Date Data Source [id number] 03/20/2020 04:26:05 PM [facility] Name Value Range Interpretation Code Description Data Source(s) WEIGHT RECORDED 188.01 pounds 188.01 pounds [facility] Height 64 Inches 064 Inches [facility] WEIGHT RECORDED 188.01 pounds 188.01 pounds [facility] Height 64 Inches 064 Inches [facility] ID Date Data Source [id number] 04/24/2019 05:53:30 PM [facility] Name Value Range Interpretation Code Description Data Source(s) WEIGHT RECORDED 187.4 lb 187.4 lb [facility] Body height Measured 62.99 in 62.99 in [facility] ID Date Data Source [id number] 03/10/2019 01:04:55 PM [facility] [facility] Name Value Range Interpretation Code Description Data Source(s) WEIGHT RECORDED 189 lb 189 lb [facility] Body height Measured 62.99 in 62.99 in [facility] Patient Treatment Plan of Care Planned Activity Planned Date Details Description Data Source (s) Blood Pressure Cuff - 04/09/2020 12:00:00 AM EST eCW1 ([facility]) Diphenhydramine-Zinc Acetate 1-0.1 % 04/09/2020 12:00:00 AM EST eCW1 ([facility]) Hydralazine Hydrochloride 10 MG Oral Tablet 03/27/2020 12:00:00 AM EST eCW1 ([facility]) Potassium Chloride 20 MEQ Extended Release Oral Tablet 03/27/2020 12:00:00 AM EST eCW1 ([facility]) Metoprolol Tartrate 25 MG Oral Tablet 03/27/2020 12:00:00 AM EST eCW1 ([facility]) potassium chloride SA (K-DUR,KLOR-CON) 20 MEQ tablet 12:00:00 AM EST [facility] pantoprazole 40 MG Delayed Release Oral Tablet 03/15/2020 12:00:00 AM EST [facility] Metoprolol Tartrate 25 MG Oral Tablet 03/15/2020 12:00:00 AM EST [facility] Losartan Potassium 25 MG Oral Tablet 02/20/2020 12:00:00 AM EST [facility] Ondansetron 4 MG Oral Tablet 02/15/2020 12:00:00 AM EST [facility] Morphine Sulfate 15 MG Oral Tablet 01/08/2020 12:00:00 AM EDT [facility] tizanidine 2 MG Oral Tablet 12/20/2019 12:00:00 AM EDT eCW1 ([facility]) Trazodone Hydrochloride 50 MG Oral Tablet 12/20/2019 12:00:00 AM ED T eCW1 ([facility]) tizanidine 2 MG Oral Tablet 12/20/2019 12:00:00 AM EDT eCW1 ([facility]) Trazodone Hydrochloride 50 MG Oral Tablet 12/20/2019 12:00:00 AM ED T eCW1 ([facility]) tizanidine 2 MG Oral Tablet 12/20/2019 12:00:00 AM EDT eCW1 ([facility]) Trazodone Hydrochloride 50 MG Oral Tablet 12/20/2019 12:00:00 AM ED T eCW1 ([facility]) tizanidine 2 MG Oral Tablet 12/20/2019 12:00:00 AM EDT eCW1 ([facility]) Trazodone Hydrochloride 50 MG Oral Tablet 12/20/2019 12:00:00 AM ED T eCW1 ([facility]) torsemide 100 MG Oral Tablet 09/25/2019 12:00:00 AM EDT [facility] Hydroxyzine Hydrochloride 25 MG Oral Tablet 09/23/2019 12:00:00 AM EDT [facility] atorvastatin 80 MG Oral Tablet 09/20/2019 12:00:00 AM EDT eCW1 ([facility]) atorvastatin 80 MG Oral Tablet 09/20/2019 12:00:00 AM EDT eCW1 ([facility]) atorvastatin 80 MG Oral Tablet 09/20/2019 12:00:00 AM EDT eCW1 ([facility]) atorvastatin 80 MG Oral Tablet 09/20/2019 12:00:00 AM EDT eCW1 ([facility]) MetFORMIN HCl ER 750 MG 09/20/2019 12:00:00 AM EDT eCW1 ([facility]) atorvastatin 80 MG Oral Tablet 09/20/2019 12:00:00 AM EDT eCW1 ([facility]) atorvastatin 80 MG Oral Tablet 09/20/2019 12:00:00 AM EDT [facility] Dexamethasone 4 MG Oral Tablet 08/17/2019 12:00:00 AM EDT [facility] pomalidomide 2 MG Oral Capsule 08/01/2019 12:00:00 AM EDT [facility] Misc. Devices - 07/17/2019 12:00:00 AM EDT eCW1 ([facility]) tramadol hydrochloride 50 MG Oral Tablet 07/15/2019 12:00:00 AM EDT [facility] Acyclovir 400 MG Oral Tablet 07/13/2019 12:00:00 AM EDT [facility] Famotidine 40 MG Oral Tablet 02/19/2019 12:00:00 AM EST eCW1 ([facility]) Famotidine 40 MG Oral Tablet 02/19/2019 12:00:00 AM EST eCW1 ([facility]) Potassium Chloride 10 MEQ Extended Release Oral Capsul e 11/18/2015 12:00:[address] [facility] Losartan Potassium 100 MG Oral Tablet 11/18/2015 12:00:00 AM EDT [facility] Furosemide 40 MG Oral Tablet 10/22/2008 12:00:00 AM EDT [facility] Colchicine 0.6 MG Oral Tablet [facility] Cimetidine 800 MG Oral Tablet KIMANI ([facility])
--- OUTSIDE RECORDS SUMMARY | 2020-04-14 03:56 | CCD ---
Author Author [facility] Organization [facility] Address Unknown Phone Unavailable Support Name Relationship Address Phone Giuliano MALLOY Next Of Kin [address] [facility] [address] [address] [place] [address] WILLY HAMMOND Next Of Kin Unknown REYNALDO CALERO Next Of Kin [address] [place] [address] [address] [place] [address] GUILLAUME HUSSEIN Next Of Kin [address] [place] [address] LORENA LLANES Next Of Kin Unknown Unavailable JUDY HAMMOND Next Of Kin [address] [place] [address] [address] [place] [address] JUDY CALERO Next Of Kin [address] [place] [address] PENELOPE HUSSEIN Next Of Kin NA Unknown DISABLED Next Of Kin Unknown Unavailable [place] [address] [id number] DISABLE Next Of Kin Unknown Unavailable JUSTYN HAMMOND [place] [address] UE Next Of Kin Unknown Unavailable DISABILITY Next Of Kin X X, X X MARY MALLOY Next Of Kin [address] [place] [address] [address] [place] [address] ANDRE[place] [address] [id number] reynaldo calero [facility] DING [address] [place] [address] Unavailable Neva Llanes ECON Unknown [phone] Guillaume Hussein ECON [address] [place] [address] Unavailable Mary Malloy ECON [address] [facility] [address] [place], [place] [id number] [phone] Care Team Providers Care 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 Name Role Phone [facility] Chili Unavailable Unavailable Center, Natty Jose Daniel Unavailable Unavailable Center, Natty Jose Daniel Unavailable Unavailable Center, Natty Jose Daniel Unavailable Unavailable Nathaniel, Natty Jose Daniel Unavailable Unavailable Center, Natty Jose Daniel Unavailable Unavailable Nathaniel, Natty Jose Daniel Unavailable Unavailable Center, Natty Jose Daniel Unavailable Unavailable Nathaniel, Natty [...] MD Unavailable Unavailable Danika Falanga, A Kavya COLL[employer] BASTER JUMPBASTING Unavailable Unavailable Danika Falanga, A Kavya COLLAR BASTER JUMPBASTING Unavailable Unavailable Monroe Falanga, A Kavya COLLAR BASTER JUMPBASTING Unavailable Unavailable Monroe Falanga, A Kavya COLLAR BASTER JUMPBASTING Unavailable Unavailable Monroe Falanga, A Kavya COLLAR BASTER JUMPBASTING Unavailable Unavailable Monroe Falanga, A Kavya COLLAR BASTER JUMPBASTING Unavailable Unavailable Danika Falanga, A Kavya COLLAR BASTER JUMPBASTING Unavailable Unavailable Monroe Falanga, A Kavya COLLAR BASTER JUMPBASTING Unavailable Unavailable Monroe Falanga, A Kavya COLLAR BASTER JUMPBASTING Unavailable Unavailable Danika Falanga, A Kavya COLLAR BASTER JUMPBASTING Unavailable Unavailable Monroe Falanga, A Kavya COLLAR BASTER JUMPBASTING Unavailable Unavailable Danika Falanga, A Kavya COLLAR BASTER JUMPBASTING Unavailable Unavailable Monroe Falanga, A Kavya COLLAR BASTER JUMPBASTING Unavailable Unavailable Monroe Falanga, A Kavya COLLAR BASTER JUMPBASTING Unavailable Unavailable Danika Falanga, A Kavya COLLAR BASTER JUMPBASTING Unavailable Unavailable Danika Falanga, A Kayva COLLAR BASTER JUMPBASTING Unavailable Unavailable Monroe Falanga, A Kavya COLLAR BASTER JUMPBASTING Unavailable Unavailable Monroe Falanga, A Kavya COLLAR BASTER JUMPBASTING Unavailable Unavailable Monroe Falanga, A Kavya COLLAR BASTER JUMPBASTING Unavailable Unavailable Danika Falanga, A Kavya COLLAR BASTER JUMPBASTING Unavailable Unavailable Danika Falanga, A Kavya COLLAR BASTER JUMPBASTING Unavailable Unavailable Danika Falanga, A Kavya COLLAR BASTER JUMPBASTING Unavailable Unavailable Monroe Falanga, A Kavya COLLAR BASTER JUMPBASTING Unavailable Unavailable Danika Falanga, A Kavya COLLAR BASTER JUMPBASTING Unavailable Unavailable Danika Falanga, A Kavya COLLAR BASTER JUMPBASTING Unavailable Unavailable Monroe Falanga, A Kavya COLLAR BASTER JUMPBASTING Unavailable Unavailable Monroe Falanga, A Kavya COLLAR BASTER JUMPBASTING Unavailable Unavailable Danika Falanga, A Kavya COLLAR BASTER JUMPBASTING Unavailable Unavailable Danika Falanga, A Kavya COLLAR BASTER JUMPBASTING Unavailable Unavailable Danika Falanga, A Kavya COLLAR BASTER JUMPBASTING Unavailable Unavailable Nilson HARP MD Unavailable Unavailable [...] Unavailable Unavailable PAUL HOWARD MD Unavailable Unavailable [place], V NASREEN PA-C Unavailable Unavailable Galindo, V NASREEN PA-C Unavailable Unavailable [place], V NASREEN PA-C Unavailable Unavailable [place], V NASREEN PA-C Unavailable Unavailable Galindo, V NASREEN PA-C Unavailable Unavailable [place], V NASREEN PA-C Unavailable Unavailable Galindo, V NASREEN PA-C Unavailable Unavailable Jumalon, M Ludmila COLL[employer] BASTER JUMPBASTING Unavailable Unavailable Jumalon, M Ludmila COLLAR BASTER JUMPBASTING Unavailable Unavailable Jumalon, M Ludmila COLLAR BASTER JUMPBASTING Unavailable Unavailable Jumalon, M Ludmila COLLAR BASTER JUMPBASTING Unavailable Unavailable Jumalon, M Ludmila COLLAR BASTER JUMPBASTING Unavailable Unavailable Jumalon, M Ludmila COLLAR BASTER JUMPBASTING Unavailable Unavailable Jumalon, M Ludmila COLLAR BASTER JUMPBASTING Unavailable Unavailable Jumalon, M Ludmila COLLAR BASTER JUMPBASTING Unavailable Unavailable Jumalon, M Ludmila COLLAR BASTER JUMPBASTING Unavailable Unavailable Jumalon, M Ludmila COLLAR BASTER JUMPBASTING Unavailable Unavailable Jumalon, M Ludmila COLLAR BASTER JUMPBASTING Unavailable Unavailable Jumalon, M Ludmila COLLAR BASTER JUMPBASTING Unavailable Unavailable Jumalon, M Ludmila COLLAR BASTER JUMPBASTING Unavailable Unavailable Jumalon, M Ludmila COLLAR BASTER JUMPBASTING Unavailable Unavailable Jumalon, M Ludmila COLLAR BASTER JUMPBASTING Unavailable Unavailable Jumalon, M Ludmila COLLAR BASTER JUMPBASTING Unavailable Unavailable Jumalon, M Ludmila COLLAR BASTER JUMPBASTING Unavailable Unavailable Jumalon, M Ludmila COLLAR BASTER JUMPBASTING Unavailable Unavailable Jumalon, M Ludmila COLLAR BASTER JUMPBASTING Unavailable Unavailable Jumalon, M Ludmila COLLAR BASTER JUMPBASTING Unavailable Unavailable Jumalon, M Ludmila COLLAR BASTER JUMPBASTING Unavailable Unavailable Jumalon, M Ludmila COLLAR BASTER JUMPBASTING Unavailable Unavailable Jumalon, M Ludmila COLLAR BASTER JUMPBASTING Unavailable Unavailable Jumalon, M Ludmila COLLAR BASTER JUMPBASTING Unavailable Unavailable Jumalon, M Ludmila COLLAR BASTER JUMPBASTING Unavailable Unavailable Jumalon, M Ludmila COLLAR BASTER JUMPBASTING Unavailable Unavailable Jumalon, M Ludmila COLLAR BASTER JUMPBASTING Unavailable Unavailable Jumalon, M Ludmila COLLAR BASTER JUMPBASTING Unavailable Unavailable Diana Sherwood MD Unavailable Unavailable [...] PHYSICIAN STAFF Unavailable Unavailable Jumalon, M Ludmila COLLAR BASTER JUMPBASTING Unavailable Unavailable Jumalon, M Ludmila COLLAR BASTER JUMPBASTING Unavailable Unavailable Jumalon, M Ludmila COLLAR BASTER JUMPBASTING Unavailable Unavailable Jumalon, M Ludmila COLLAR BASTER JUMPBASTING Unavailable Unavailable Jumalon, M Ludmila COLLAR BASTER JUMPBASTING Unavailable Unavailable Jumalon, M Ludmila COLLAR BASTER JUMPBASTING Unavailable Unavailable Jumalon, M Uldmila COLLAR BASTER JUMPBASTING Unavailable Unavailable Jumalon, M Ludmila COLLAR BASTER JUMPBASTING Unavailable Unavailable Jumalon, M Ludmila COLLAR BASTER JUMPBASTING Unavailable Unavailable Jumalon, M Ludmila COLLAR BASTER JUMPBASTING Unavailable Unavailable Jumalon, M Ludmila COLLAR BASTER JUMPBASTING Unavailable Unavailable Jumalon, M Ludmila COLLAR BASTER JUMPBASTING Unavailable Unavailable Jumalon, M Ludmila COLLAR BASTER JUMPBASTING Unavailable Unavailable Jumalon, M Ludmila COLLAR BASTER JUMPBASTING Unavailable Unavailable Jumalon, M Ludmila COLLAR BASTER JUMPBASTING Unavailable Unavailable Jumalon, M Ludmila COLLAR BASTER JUMPBASTING Unavailable Unavailable Jumalon, M Ludmila COLLAR BASTER JUMPBASTING Unavailable Unavailable Jumalon, M Ludmila COLLAR BASTER JUMPBASTING Unavailable Unavailable Jumalon, M Ludmila COLLAR BASTER JUMPBASTING Unavailable Unavailable Jumalon, M Ludmila COLLAR BASTER JUMPBASTING Unavailable Unavailable Jumalon, M Ludmila COLLAR BASTER JUMPBASTING Unavailable Unavailable Jumalon, M Ludmila COLLAR BASTER JUMPBASTING Unavailable Unavailable Jumalon, M Ludmila COLLAR BASTER JUMPBASTING Unavailable Unavailable Jumalon, M Ludmila COLLAR BASTER JUMPBASTING Unavailable Unavailable Jumalon, M Ludmila COLLAR BASTER JUMPBASTING Unavailable Unavailable Jumalon, M Ludmila COLLAR BASTER JUMPBASTING Unavailable Unavailable Jumalon, M Ludmila COLLAR BASTER JUMPBASTING Unavailable Unavailable Daphne MONTERO MD Unavailable Unavailable [...] is protected by Article 27-F of the [facility] Public Health law. If you continue you may have access to information: Regarding HIV / AIDS; Provided by facilities licensed or operated by the [facility] Office of Mental Health; or Provided by the [facility] Office for People With Developmental Disabilities. If such information is present, then the following [facility] mandated warning applies: This information has [...] Status Data Source(s ) BRANDNAME KEPPRA KEPPRA [facility] BRANDNAME TYLENOL TYLENOL [facility] Drug allergy GABAPENTIN [facility]AP[facility]IN [facility] Drug allergy METFORMIN METFORMIN [facility] Drug allergy OXYCODONE OXYCODONE [facility] Drug allergy CARISOPRODOL CARISOPRODOL [facility] Drug allergy DOXYCYCLINE DOXYCYCLINE [facility] Drug allergy FLUOCINOLONE FLUOCINOLONE [facility] Drug allergy PREDNISONE PREDNISONE [facility] Drug allergy AMITRIPTYLINE AMITRIPTYLINE [facility] Drug allergy SPIRONOLACTONE SPIRONOLACTONE [facility] Drug allergy CODEINE CODEINE [facility] CLASS QUINOLONES QUINOLONES [facility] CLASS NSAID NSAID [facility] Propensity to adverse reactions PREDNISONE Prednisone Acti ve [facility] Propensity to adverse reactions METFORMIN Metformin Acti ve [facility] Propensity to adverse reactions LEVETIRACETAM Levetiracetam Active [facility] Propensity to adverse reactions CODEINE Codeine Acti ve [facility] Propensity to adverse reactions ACETAMINOPHEN Acetaminophen Active [facility] Drug allergy Spironolactone Spironolactone Hives Active eCW1 ([facility]) Drug allergy Cipro Ciprofloxacin Hives Active eCW1 ([facility]) Drug allergy Amitriptyline HCl Amitriptyline Throat swelling Active eCW1 ([facility]) Drug allergy Tramadol HCl Tramadol Throat swelling Active eCW1 ([facility]) Drug allergy IBU Ibuprofen Kidneys Active eCW1 ([facility]) Drug allergy Percocet acetaminophen / oxycodone facial swelling Ac tive eCW1 ([facility]) DRUG INGREDI TRAMADOL Tramadol Swelling [facility] Propensity to adverse reactions GABAPENTIN gabapentin Acti ve [facility] Propensity to adverse reactions CARISOPRODOL Carisoprodol Active [facility] DRUG INGREDI GABAPENTIN GABAPENTIN [facility] DRUG INGREDI CARISOPRODOL CARISOPRODOL [facility] Soma Soma Carisoprodol 250 MG Oral Tablet [Soma] Rash Active eCW1 ([facility]) Family History Family Member Name Family Member Gender Family Member Status Date o f Status Description Data Source(s) Unknown Unknown Problem MEDENT ([facility]) Encounters Encounter Providers Location Date Indications Data Source(s ) Unknown [facility] [address] 04/09/2020 12:00:00 AM EST [facility]CW1 [facility] Outpatient Attender: NASREEN LAWSON.GEOFF-SJP.GEOFF 12:00:00 AM EST - 04/08/2020 03:27:49 PM EST [facility] Unknown [address] [facility] [address] 04/06/2020 12:00:00 AM EST eCW1 [facility] [place] [address] [facility] [address] 04/03/2020 12:00:00 AM EST eCW1 ([facility] [place] [address] [facility] [address] 03/30/2020 12:00:00 AM EST [facility]CW1 [facility] [place] [address] [facility] [address] 03/30/2020 12:00:00 AM EST eCW1 [facility]) [place]patient [address] [facility] [address] 03/24/2020 12:00:00 AM EST [facility] Outpatient Attender: [facility] 03/08/2020 09:5 0:00 PM [facility] Inpatient Attender: Kavya hawkins FNPAttender: NATASHA MONTERO MDConsultant: STAFF NON 03/06/2020 10:10:00 AM EST - 03/12/2020 12:50:00 PM [facility] Patient discharged. Outpatient Attender: Kavya BUENROSTRO 03/04/2020 12:24:00 PM EST - 03/06/2020 10:10:00 AM [facility] Unknown [address] [facility] [address] 03/02/2020 12:00:00 AM EST eCW1 [facility]) Unknown [address] [facility] [address] 12/23/2019 12:00:00 AM EDT eCW1 ([facility]) Unknown [address] [facility] [address] 12/23/2019 12:00:00 AM EDT [facility]CW1 [facility]) Outpatient [address] [place] [address] Y [address] 12/20/2019 12:00:00 AM EDT eCW1 [facility]) Outpatient Attender: Diana Sherwood MD SJP.GEOFF-SJP.GEOFF 09/11 12:00:00 AM EDT - 10/07/2019 04:43:57 PM EDT [facility] Unknown [address] [place] [address], [place] [address] 10/01/2019 12:00:00 AM EDT eCW1 [facility]) Outpatient Referrer: DILAN HARP MD 09/21/2019 12:00:[address] [place] [address] 09/10/2019 12:00:00 AM EDT eCW1 [facility]) Outpatient Referrer: Ludmila COLBYP 07/25/2019 07:00:0 0 PM EDT [facility] [address] [place] [address] 07/17/2019 12:00:00 AM EDT eCW1 ([facility]) [address] [place] [address] 07/16/2019 12:00:00 AM EDT eCW1 [facility]) Outpatient Attender: AUGIE HOOVER MD [id number] 07/10/2019 12:00:[address] [facility] Outpatient Referrer: Ludmila BUENROSTRO 06/28/2019 04:47:0 0 AM EDT [facility] [address] [place] [address] 06/24/2019 12:00:00 AM EDT eCW1 [facility] [place] [id number] [place] [address], [place] [address] 06/18/2019 12:00:00 AM EDT eCW1 ([facility]) [facility] [address] [place] [address], [place] [address] 06/12/2019 12:00:00 AM EDT eCW1 ([facility]) [address] [address] 06/10/2019 12:00:00 AM EDT eCW1 ([facility]) [address] [address] 06/10/2019 12:00:00 AM EDT eCW1 ([facility]) [address] [address] 06/10/2019 12:00:00 AM EDT eCW1 ([facility]) [address] [address] 06/05/2019 12:00:00 AM EDT eCW1 ([facility]) [address] [address] 05/27/2019 12:00:00 AM EDT eCW1 ([facility]) [address] [address] 05/24/2019 12:00:00 AM EDT eCW1 ([facility]) [address] [address] 05/20/2019 12:00:00 AM EDT eCW1 ([facility]) [address] [address] 05/17/2019 12:00:00 AM EST eCW1 ([facility]) Outpatient Referrer: Ludmila Tomlinson [employer] 05/07/2019 02:21:0 0 PM EST [facility] [address] [address] 04/24/2019 12:00:00 AM EST eCW1 ([facility]) [address] [address] 04/15/2019 12:00:00 AM EST eCW1 ([facility]) Outpatient Referrer: Ludmila Tomlinson [facility] 04/12/2019 09:28:0 0 AM EST [facility] Outpatient Attender: AUGIE HOOVER MD [id number] 020 12:00:00 AM EST - 04/12/2019 12:20:12 PM EST Rheumatoid arthritis without rheumatoid factor, unspecified site [facility] Rheumatoid arthritis without rheumatoid factor, unspecified site [address] [address] 04/10/2019 12:00:00 AM EST eCW1 ([facility]) [address] [address] 04/08/2019 12:00:00 AM EST eCW1 ([facility]) [address] [address] 04/03/2019 12:00:00 AM EST eCW1 ([facility]) Outpatient Attender: PAUL Murphy/Luca/Eduardo/Rein dl 03/26/2019 07:30:00 AM EST MEDENT ([facility]) Outpatient Attender: Jose Daniel Murphy/Vasyl 03/25/2019 09:15:00 AM EST MEDENT ([facility]) Outpatient Attender: MELIZA LANDRUM MDAdmi tter: MELIZA LANDRUM MDReferrer: MELIZA LANDRUM MD 03/20/2019 12:00:00 AM EST - 03/20/2019 11:59:00 PM EST Multiple myeloma not having achieved remission [facility] Multiple myeloma not having achieved rem ission Outpatient Referrer: Ludmila Tomlinson [facility] 03/14/2019 07:31:0 0 PM EST [facility] [address] [address] 03/08/2019 12:00:00 AM EST [facility]CW1 [facility]) Outpatient Attender: AUGIE HOOVER MD [id number] 019 12:00:00 AM EST - 03/01/2019 03:46:30 PM EST [address] [place] [address] 03/01/2019 12:00:00 AM EST eCW1 [facility]) Outpatient Attender: AUGIE HOOVER MD 03/01/2019 12:00:[address] [place] [address] 02/28/2019 12:00:00 AM EST eCW1 ([facility]) Outpatient Attender: Jose Daniel Murphy/Luca/Eduardo/Jennifer 02/26/2019 09:00:00 AM EST MEDENT ([facility] [address] [place] [address] 02/26/2019 12:00:00 AM EST eCW1 ([facility]) [address] [place] [address] 02/26/2019 12:00:00 AM EST eCW1 ([facility]) [address] [place] [address] 02/25/2019 12:00:00 AM EST eCW1 ([facility]) [address] [address] 02/22/2019 12:00:00 AM EST eCW1 ([facility]) Ludmila Tomlinson, RESEARCH QUALITY ASSURANCE ANALYST: [address], [place] [address], Ph. Attender: Ludmila Tomlinson [employer] [place] - [facility] - Main Office 02/20/2019 12:00:00 AM EST ATHE NA ([facility]) [place] [address] [facility] [address] 02/19/2019 12:00:00 AM EST eCW1 ([facility]) [facility] [place] [address] [facility] [address] 02/19/2019 12:00:00 AM EST eCW1 ([facility]) [facility] [place] [address] [facility] [address] 02/15/2019 12:00:00 AM EST eCW1 ([facility]) [facility] [place] [address] [facility] [address] 02/14/2019 12:00:00 AM EST eCW1 ([facility]) Outpatient Referrer: Ludmila BUENROSTRO 02/13/2019 04:58:0 0 AM EST [facility] Immunizations Vaccine Date Status Description Data Source(s) influenza, recombinant, quadrIvalent,injectable, prese rvative free 12/20/2019 10:30:00 AM EDT completed eCW1 ([facility]) influenza, recombinant, quadrIvalent,injectable, prese rvative free 12/20/2019 10:30:00 AM EDT completed eCW1 ([facility]) influenza, recombinant, quadrIvalent,injectable, prese rvative free 12/20/2019 10:30:00 AM EDT completed eCW1 ([facility]) influenza, recombinant, quadrIvalent,injectable, prese rvative free 12/20/2019 10:30:00 AM EDT completed eCW1 ([facility]) influenza, recombinant, quadrIvalent,injectable, prese rvative free 12/20/2019 10:30:00 AM EDT completed eCW1 ([facility]) influenza, recombinant, quadrIvalent,injectable, prese rvative free 12/20/2019 10:30:00 AM EDT completed eCW1 ([facility]) influenza, recombinant, quadrIvalent,injectable, prese rvative free 12/20/2019 10:30:00 AM EDT completed eCW1 ([facility]) influenza, recombinant, quadrIvalent,injectable, prese rvative free 12/20/2019 10:30:00 AM EDT completed eCW1 ([facility]) influenza, recombinant, quadrIvalent,injectable, prese rvative free 12/20/2019 10:30:00 AM EDT completed eCW1 ([facility]) influenza, recombinant, quadrIvalent,injectable, prese rvative free 12/20/2019 10:30:00 AM EDT completed eCW1 ([facility]) Medications Medication Brand Name Start Date Product Form Dose Route Admi nistrative Instructions Pharmacy Instructions Status Indications Reaction Description Data Source(s) Blood Pressure Cuff - Blood Pressure Cuff - 04/09/2020 12:00:00 AM EST active Blood Pressure Cuff - eCW1 ( [facility]) 20 mEq 04/09/2020 12:00:00 AM EST tablet extended release 60 TAKE ONE TABLET BY MOUTH TWICE A DAY WITH FOOD TAKE ONE TABLET BY MOUTH TWICE A DAY WITH FOOD SOLD: 04/09/2020 [facility] Diphenhydramine-Zinc Acetate 1-0.1 % UNK 04/09/2020 12:00: 00 AM EST 1.0 {application_as_needed} active Diphenhy dramine-Zinc Acetate 1-0.1 % eCW1 ([facility]) 20 mg 04/06/2020 12:00:00 AM EST tablet 60 TAKE TWO TABLETS BY MOUTH EVERY DAY TAKE TWO TABLETS BY MOUTH EVERY DAY SOLD: 04/07/2020 [facility] Metoprolol Tartrate 25 MG Oral Tablet Metoprolol Tartrate 25 MG 03/27/2020 12:00:00 AM EST 1.0 {tablet_with_food} active Metoprolol Tartrate 25 MG eCW1 ([facility]) Hydralazine Hydrochloride 10 MG Oral Tablet HydrALAZIN E HCl 10 MG HydrALAZINE HCl 10 MG 03/27/2020 12:00:00 AM EST 2.0 {tablet_with_food} active HydrALAZINE HCl 10 MG eCW1 ([facility]) Metoprolol Tartrate 25 MG Oral Tablet Metoprolol Tartrate 25 MG 03/27/2020 12:00:00 AM EST 1.0 {tablet_with_food} active Metoprolol Tartrate 25 MG eCW1 ([facility]) Potassium Chloride 20 MEQ Extended Relea se Oral Tablet Potassium Chloride ER 20 MEQ Potassium Chloride ER 20 MEQ 03/27/2020 12:00:00 AM EST 1.0 {tablet_with_food} active Potassium Chl oride ER 20 MEQ eCW1 ([facility]) Hydralazine Hydrochloride 10 MG Oral Tablet HydrALAZIN E HCl 10 MG HydrALAZINE HCl 10 MG 03/27/2020 12:00:00 AM EST 2.0 {tablet_with_food} active HydrALAZINE HCl 10 MG eCW1 ([facility]) Hydralazine Hydrochloride 10 MG Oral Tablet HydrALAZIN E HCl 10 MG HydrALAZINE HCl 10 MG 03/27/2020 12:00:00 AM EST 2.0 {tablet_with_food} active HydrALAZINE HCl 10 MG eCW1 ([facility]) Potassium Chloride 20 MEQ Extended Relea se Oral Tablet Potassium Chloride ER 20 MEQ Potassium Chloride ER 20 MEQ 03/27/2020 12:00:00 AM EST 1.0 {tablet_with_food} active Potassium Chl oride ER 20 MEQ eCW1 ([facility]) Potassium Chloride 20 MEQ Extended Relea se Oral Tablet Potassium Chloride ER 20 MEQ Potassium Chloride ER 20 MEQ 03/27/2020 12:00:00 AM EST 1.0 {tablet_with_food} active Potassium Chl oride ER 20 MEQ eCW1 ([facility]) Potassium Chloride 20 MEQ Extended Relea se Oral Tablet Potassium Chloride ER 20 MEQ Potassium Chloride ER 20 MEQ 03/27/2020 12:00:00 AM EST 1.0 {tablet_with_food} active Potassium Chl oride ER 20 MEQ eCW1 ([facility]) Metoprolol Tartrate 25 MG Oral Tablet Metoprolol Tartrate 25 MG 03/27/2020 12:00:00 AM EST 1.0 {tablet_with_food} active Metoprolol Tartrate 25 MG eCW1 ([facility]) Hydralazine Hydrochloride 10 MG Oral Tablet HydrALAZIN E HCl 10 MG HydrALAZINE HCl 10 MG 03/27/2020 12:00:00 AM EST 2.0 {tablet_with_food} active HydrALAZINE HCl 10 MG eCW1 ([facility]) Metoprolol Tartrate 25 MG Oral Tablet Metoprolol Tartrate 25 MG 03/27/2020 12:00:00 AM EST 1.0 {tablet_with_food} active Metoprolol Tartrate 25 MG eCW1 ([facility]) Potassium Chloride 20 MEQ Extended Relea se Oral Tablet Potassium Chloride ER 20 MEQ Potassium Chloride ER 20 MEQ 03/27/2020 12:00:00 AM EST 1.0 {tablet_with_food} active Potassium Chl oride ER 20 MEQ eCW1 ([facility]) Hydralazine Hydrochloride 10 MG Oral Tablet HydrALAZIN E HCl 10 MG HydrALAZINE HCl 10 MG 03/27/2020 12:00:00 AM EST 2.0 {tablet_with_food} active HydrALAZINE HCl 10 MG eCW1 ([facility]) Metoprolol Tartrate 25 MG Oral Tablet Metoprolol Tartrate 25 MG 03/27/2020 12:00:00 AM EST 1.0 {tablet_with_food} active Metoprolol Tartrate 25 MG eCW1 ([facility]) 10 mg 03/26/2020 12:00:00 AM EST tablet 180 TAKE TWO TABLETS BY MOUTH THREE TIMES A DAY TAKE TWO TABLETS BY MOUTH THREE TIMES A DAY SOLD: 03/26/2020 [facility] potassium chloride SA (K-DUR,KLOR-CON) 20 MEQ tablet [id number] 99-01 03/26/2020 12:00:00 AM EST 20 meq Oral active Take 20 mEq by mouth [facility] 20 mEq 03/26/2020 12:00:00 AM EST [...] by mouth 2 (two) times a day [facility] Metoprolol Tartrate 25 MG Oral Tablet me toprolol tartrate (LOPRESSOR) 25 MG tablet metoprolol tartrate (LOPRESSOR) 25 MG tablet 03/15/2020 12:0 0:00 AM EST active TAKE ONE TABLET BY MOUTH TWICE A DAY FOR BLOOD PRESSURE [facility] pantoprazole 40 MG Delayed Release Oral [...] EST 1 {tbl} active 1 tablet daily [facility] Ondansetron 4 MG Oral Tablet ondansetron (ZOFRAN) 4 MG tablet ondansetron (ZOFRAN) 4 MG tablet 02/15/2020 12:00:00 AM EST 1 {tbl} active 1 tablet as needed [facility] Morphine Sulfate 15 MG Oral Tablet morphine (MSIR) 15 MG tablet morphine (MSIR) 15 MG tablet 01/08/2020 12:00:00 AM EDT activ e TAKE 1 TABLET BY MOUTH 3 TIMES A DAY NEEDED FOR PAIN MAX DAILY DOSE 3 TABLETS [facility] 400 mg (241.3 mg magnesium) 01/08/2020 [...] {tablet_as_needed} active Tizanidine HCl 2 MG eCW1 ([facility]) 2 mg 12/20/2019 12:00:00 AM EDT tablet 90 TAKE ONE TABLET BY MOUTH THREE TIMES A DAY NEEDED TAKE ONE TABLET BY MOUTH THREE TIMES A DAY NEEDED S OLD: 12/20/2019 [facility] Trazodone Hydrochloride 50 MG Oral Tablet TraZODone HC l 50 MG TraZODone HCl 50 MG 12/20/2019 12:00:00 AM EDT 0.51 {tablet_at_bedtime_as_needed} active TraZODone HCl 50 MG eCW1 ([facility]) Trazodone Hydrochloride 50 MG Oral Tablet TraZODone HC l 50 MG TraZODone HCl 50 MG 12/20/2019 12:00:00 AM EDT 0.51 {tablet_at_bedtime_as_needed } suspended TraZODone HCl 50 MG eCW1 ([facility]) Trazodone Hydrochloride 50 MG Oral Tablet TraZODone HC l 50 MG TraZODone HCl 50 MG 12/20/2019 12:00:00 AM EDT 0.51 {tablet_at_bedtime_as_needed} active TraZODone HCl 50 MG eCW1 ([facility]) tizanidine 2 MG Oral Tablet Tizanidine HCl 2 MG Tizanidine H Cl 2 MG 12/20/2019 12:00:00 AM EDT 1.0 {tablet_as_needed} active Tizanidine HCl 2 MG eCW1 ([facility]) tizanidine 2 MG Oral Tablet Tizanidine HCl 2 MG Tizanidine H Cl 2 MG 12/20/2019 12:00:00 AM EDT 1.0 {tablet_as_needed} active Tizanidine HCl 2 MG eCW1 ([facility]) tizanidine 2 MG Oral Tablet Tizanidine HCl 2 MG Tizanidine H Cl 2 MG 12/20/2019 12:00:00 AM EDT 1.0 {tablet_as_needed} active Tizanidine HCl 2 MG eCW1 ([facility]) Trazodone Hydrochloride 50 MG Oral Tablet TraZODone HC l 50 MG TraZODone HCl 50 MG 12/20/2019 12:00:00 AM EDT 0.51 {tablet_at_bedtime_as_needed} active TraZODone HCl 50 MG eCW1 ([facility]) Trazodone Hydrochloride 50 MG Oral Tablet TraZODone HC l 50 MG TraZODone HCl 50 MG 12/20/2019 12:00:00 AM EDT 0.51 {tablet_at_bedtime_as_needed} active TraZODone HCl 50 MG eCW1 ([facility]) 50 mg 12/20/2019 12:00:00 AM EDT tablet 30 TAKE 1/2-1 TABLET BY MOUTH ONCE A DAY AT BEDTIME NEEDED TAKE 1/2-1 TABLET BY MOUTH ONCE A DAY AT BEDTIME NEEDED SOLD: 12/20/2019 [facility] tizanidine 2 MG Oral Tablet Tizanidine HCl 2 MG Tizanidine H Cl 2 MG 12/20/2019 12:00:00 AM EDT 1.0 {tablet_as_needed} suspended Tizanidine HCl 2 MG eCW1 ([facility]) Metronidazole 500 MG Oral Tablet METRONIDAZOLE 12/01/2019 [...] tablet (100 mg total) by mouth daily [facility] 25 mg 09/24/2019 12:00:00 AM EDT [...] active Take 25 mg by mouth nightly [facility] atorvastatin 80 MG Oral Tablet Atorvastatin Calcium 80 MG Atorvastatin Calcium 80 MG 09/20/2019 12:00:00 AM EDT 1.0 {tablet} activ e Atorvastatin Calcium 80 MG eCW1 ([facility]) 24 HR Metformin hydrochloride 750 MG Ext ended Release Oral Tablet MetFORMIN HCl ER 750 MG MetFORMIN HCl ER 750 MG 09/20/2019 12:00:00 AM EDT 1.0 {tablet_with_evening_meal} suspended Met FORMIN HCl ER 750 MG eCW1 ([facility]) MetFORMIN HCl ER 750 MG MetFORMIN HCl ER 750 MG 09/20/2019 12:00:00 AM EDT 1.0 {tablet_with_evening_meal} suspended Me tFORMIN HCl ER 750 MG eCW1 ([facility]) atorvastatin 80 MG Oral Tablet Atorvastatin Calcium 80 MG Atorvastatin Calcium 80 MG 09/20/2019 12:00:00 AM EDT 1.0 {tablet} activ e Atorvastatin Calcium 80 MG eCW1 ([facility]) 24 HR Metformin hydrochloride 750 MG Ext ended Release Oral Tablet MetFORMIN HCl ER 750 MG MetFORMIN HCl ER 750 MG 09/20/2019 12:00:00 AM EDT 1.0 {tablet_with_evening_meal} active MetFO RMIN HCl ER 750 MG eCW1 ([facility]) 24 HR Metformin hydrochloride 750 MG Ext ended Release Oral Tablet MetFORMIN HCl ER 750 MG MetFORMIN HCl ER 750 MG 09/20/2019 12:00:00 AM EDT 1.0 {tablet_with_evening_meal} active MetFO RMIN HCl ER 750 MG eCW1 ([facility]) MetFORMIN HCl ER 750 MG MetFORMIN HCl ER 750 MG 09/20/2019 12:00:00 AM EDT 1.0 {tablet_with_evening_meal} suspended Me tFORMIN HCl ER 750 MG eCW1 ([facility]) 24 HR Metformin hydrochloride 750 MG Ext ended Release Oral Tablet MetFORMIN HCl ER 750 MG MetFORMIN HCl ER 750 MG 09/20/2019 12:00:00 AM EDT 1.0 {tablet_with_evening_meal} active MetFO RMIN HCl ER 750 MG eCW1 ([facility]) atorvastatin 80 MG Oral Tablet ATORVASTATIN CALCIUM 09/20/2019 1 2:00:00 AM EDT tablet 90 TAKE 1 TABLET BY MOUTH ONCE A DAY TAKE 1 TABLET BY MOUTH ONCE A DAY SOLD: 09/20/2019 [facility] atorvastatin 80 MG Oral Tablet Atorvastatin Calcium 80 MG Atorvastatin Calcium 80 MG 09/20/2019 12:00:00 AM EDT 1.0 {tablet} activ e Atorvastatin Calcium 80 MG eCW1 ([facility]) 24 HR Metformin hydrochloride 750 MG Ext ended Release Oral Tablet MetFORMIN HCl ER 750 MG MetFORMIN HCl ER 750 MG 09/20/2019 12:00:00 AM EDT 1.0 {tablet_with_evening_meal} suspended Met FORMIN HCl ER 750 MG eCW1 ([facility]) atorvastatin 80 MG Oral Tablet Atorvastatin Calcium 80 MG Atorvastatin Calcium 80 MG 09/20/2019 12:00:00 AM EDT 1.0 {tablet} activ e Atorvastatin Calcium 80 MG eCW1 ([facility]) atorvastatin 80 MG Oral Tablet Atorvastatin Calcium 80 MG Atorvastatin Calcium 80 MG 09/20/2019 12:00:00 AM EDT 1.0 {tablet} activ e Atorvastatin Calcium 80 MG eCW1 ([facility]) atorvastatin 80 MG Oral Tablet Atorvastatin Calcium 80 MG Atorvastatin Calcium 80 MG 09/20/2019 12:00:00 AM EDT 1.0 {tablet} activ e Atorvastatin Calcium 80 MG eCW1 ([facility]) atorvastatin 80 MG Oral Tablet Atorvastatin Calcium 80 MG Atorvastatin Calcium 80 MG 09/20/2019 12:00:00 AM EDT 1.0 {tablet} activ e Atorvastatin Calcium 80 MG eCW1 ([facility]) MetFORMIN HCl ER 750 MG MetFORMIN HCl ER 750 MG 09/20/2019 12:00:00 AM EDT 1.0 {tablet_with_evening_meal} suspended Me tFORMIN HCl ER 750 MG eCW1 ([facility]) atorvastatin 80 MG Oral Tablet Atorvastatin Calcium 80 MG Atorvastatin Calcium 80 MG 09/20/2019 12:00:00 AM EDT 1.0 {tablet} activ e Atorvastatin Calcium 80 MG eCW1 ([facility]) atorvastatin 80 MG Oral Tablet Atorvastatin Calcium 80 MG Atorvastatin Calcium 80 MG 09/20/2019 12:00:00 AM EDT 1.0 {tablet} suspe nded Atorvastatin Calcium 80 MG eCW1 ([facility]) 750 mg 09/20/2019 12:00:00 AM EDT tablet extended release 24 hr 180 TAKE ONE TABLET BY MOUTH TWICE A DAY TAKE ONE TABLET BY MOUTH TWICE A DAY SOLD: 09/20/2019 [facility] MetFORMIN HCl ER 750 MG MetFORMIN HCl ER 750 MG 09/20/2019 12:00:00 AM EDT 1.0 {tablet_with_evening_meal} active MetF ORMIN HCl ER 750 MG eCW1 ([facility]) 24 HR Metformin hydrochloride 750 MG Ext ended Release Oral Tablet MetFORMIN HCl ER 750 MG MetFORMIN HCl ER 750 MG 09/20/2019 12:00:00 AM EDT 1.0 {tablet_with_evening_meal} active MetFO RMIN HCl ER 750 MG eCW1 ([facility]) atorvastatin 80 MG Oral Tablet Atorvastatin Calcium 80 MG Atorvastatin Calcium 80 MG 09/20/2019 12:00:00 AM EDT 1.0 {tablet} activ e Atorvastatin Calcium 80 MG eCW1 ([facility]) atorvastatin 80 MG Oral Tablet atorvastatin (LIPITOR) 80 MG tablet atorvastatin (LIPITOR) 80 MG tablet 09/20/2019 12:00:00 AM EDT 80 mg Oral aborted Take 80 mg by mouth daily [facility] atorvastatin 80 MG Oral Tablet Atorvastatin Calcium 80 MG Atorvastatin Calcium 80 MG 09/20/2019 12:00:00 AM EDT 1.0 {tablet} activ e Atorvastatin Calcium 80 MG eCW1 ([facility]) Potassium Chloride 10 MEQ Extended Release Oral Tablet POTAS SIUM CHLORIDE 09/16/2019 12:00:00 AM EDT tablet extended release 240 TAKE FOUR TABLETS BY MOUTH TWICE A DAY TAKE FOUR TABLETS BY MOUTH TWICE A DAY SOLD: 09/16/2019 [facility] Dexamethasone 4 MG Oral Tablet dexamethasone (DECADRON ) 4 MG tablet dexamethasone (DECADRON) 4 MG tablet 08/17/2019 12:00:00 AM EDT aborted [facility] 4 mg 08/17/2019 12:00:00 AM EDT tablet [...] A DAY [REFLUX DIFFICULT SWALLOWING] SOLD: 10/10/2019 [facility] pantoprazole 40 MG Delayed Release Oral Tablet PANTOPRAZOLE SODIUM 08/14/2019 12:00:00 AM EDT tablet,delayed release (DR/EC) 60 T MATTI ONE TABLET BY MOUTH TWICE A DAY [REFLUX DIFFICULT SWALLOWING] TAKE ONE TABLET BY MOUTH TWICE A DAY [REFLUX DIFFICULT SWALLOWING] SOLD: 12/27/2019 [facility] pomalidomide 2 MG Oral Capsule Pomalidomide (POMALYST) 2 MG CAPS Pomalidomide (POMALYST) 2 MG CAPS 08/01/2019 12:00:00 AM EDT ab [facility] Misc. Devices - UNK 07/17/2019 12:00:00 AM EDT active Misc. Devices - eCW1 ([facility]) Misc. Devices - UNK 07/17/2019 12:00:00 AM EDT active Misc. Devices - eCW1 ([facility]) Misc. Devices - UNK 07/17/2019 12:00:00 AM EDT active Misc. Devices - eCW1 ([facility]) Misc. Devices - UNK 07/17/2019 12:00:00 AM EDT suspended Misc. Devices - eCW1 ([facility]) Misc. Devices - UNK 07/17/2019 12:00:00 AM EDT active Misc. Devices - eCW1 ([facility]) Misc. Devices - UNK 07/17/2019 12:00:00 AM EDT active Misc. Devices - eCW1 ([facility]) Misc. Devices - UNK 07/17/2019 12:00:00 AM EDT active Misc. Devices - eCW1 ([facility]) Misc. Devices - UNK 07/17/2019 12:00:00 AM EDT ac tive as directed eCW1 ([facility]) Misc. Devices - UNK 07/17/2019 12:00:00 AM EDT active Misc. Devices - eCW1 ([facility]) Misc. Devices - UNK 07/17/2019 12:00:00 AM EDT active Misc. Devices - eCW1 ([facility]) Misc. Devices - UNK 07/17/2019 12:00:00 AM EDT active Misc. Devices - eCW1 ([facility]) 50 mg 07/15/2019 12:00:00 AM EDT tablet [...] EVERY 6HRS NEEDED FOR PAIN MAX 4TABS/DAY [facility] Acyclovir 400 MG Oral Tablet acyclovir (ZOVIRAX) 400 M G tablet acyclovir (ZOVIRAX) 400 MG tablet 07/13/2019 12:00:00 AM EDT 400 mg Oral aborted Take 400 mg by mouth 2 (two) times a day [facility] 81 mg 07/08/2019 12:00:00 AM EDT [...] 12:00:00 AM EST ORAL active M EDENT ([facility], ) Magnesium Hydroxide 80 MG/ML Oral Suspension Milk Of Magnesi a 03/26/2019 12:00:00 AM EST ORAL active M EDENT ([facility], ) POLYETHYLENE GLYCOL 3350 105 MG/ML / Pot assium Chloride 0.83611 MEQ/ML / Sodium Bicarbonate 0.017 MEQ/ML / Sodium Chloride 0.0479 MEQ/ML Oral Solution [TriLyte] Trilyte 03/26/2019 12:00:00 AM EST active MEDENT ([facility], ) 40 mg 03/26/2019 12:00:00 AM EST [...] Once, Mon03/01/19 at 1545, For 1 dose [facility] Medication administered onsite 100 mg 02/28/2019 [...] ST active 1 tablet at bedtime eCW1 ([facility]) Famotidine 40 MG Oral Tablet Famotidine 40 MG 02/19/2019 12:00:[address] active 1 tablet at bedtime eCW1 ([facility]) 1 gram 02/14/2019 12:00:00 AM EST tablet [...] aborted Take 100 mg by mouth daily [facility] Potassium Chloride 10 MEQ Extended Relea se Oral Capsule potassium chloride (MICRO-K) 10 MEQ CR capsule potassium chloride (MICRO-K) 10 MEQ CR capsule 11/18/2015 12:00:00 AM EDT 10 meq Oral aborted Take 10 mEq by mouth 2 (two) times a day [facility] Furosemide 40 MG Oral Tablet furosemide (LASIX) 40 MG tablet furosemide (LASIX) 40 MG tablet 10/22/2008 12:00:00 AM EDT Oral aborted Take by mouth [facility] Colchicine 0.6 MG Oral Tablet colchicine 0.6 MG tablet colch icine 0.6 MG tablet aborted colchicine 0.6 m g tabs [facility] Cimetidine 800 MG Oral Tablet cimetidine 800 mg tablet cimet idine 800 mg tablet completed Cimetidine 800 MG Oral Tablet KIMANI ([facility]) Insurance Providers Payer name Policy type / Coverage type Policy ID Covered republican ID Covered republican's relationship to ling Policy Ling Plan Information EMEDNY [id number] SP [id number] [facility] [id number] SP [id number] [facility] [id number] SP [id number] MEDICAID [id number] [facility] MEDICARE [id number] [facility]) O [id number] S [id number] MEDICAID M [id number] [facility] MEDICARE [id number] Lianne [id number] MEDICAID [id number] Lianne [id number] UNHC MEDICARE COMPLETE -PHYS [id number] 18 [id number] UNHC MEDICARE COMPLETE - O/P [id number] 18 [id number] UNHC MEDICARE COMPLETE I/P [id number] 18 [id number] MEDICARE [id number] SP [id number] [facility] MEDICAID [id number] Lianne [id number] 27 [facility] MEDICARE DUAL G [id number] Self [id number] MEDICAID [id number] Self [id number] ARTURO I [id number] Self [id number] MEDICAID [id number] SP [id number] MEDICARE COMPLETE [id number] SP [id number] [facility]) O [id number] S [id number] MEDICAID [id number] SP [id number] [facility] MCRHMO [id number] SP [id number] [place] MEDICARE [id number] SP [id number] UHC UNITED MEDICARE DUAL G [id number] Self [id number] ANSI-Not a Secondary Insurance [id number] ANSI-Medicaid [id number] ANSI-Medicare Part B [id number] ANSI-Not a Secondary Insurance [id number] ANSI-Medicaid [id number] ANSI-Medicare Part B [id number] ANSI-Medicare Part B [id number] ANSI-Medicaid [id number] ANSI-Not a Secondary Insurance [id number] ANSI-Medicaid [id number] ANSI-Medicare Part B [id number] ANSI-Not a Secondary Insurance [id number] ANSI-Medicaid [id number] ANSI-Not a Secondary Insurance [id number] ANSI-Medicare Part B [id number] ANSI-Not a Secondary Insurance [id number] ANSI-Medicare Part B [id number] ANSI-Medicaid [id number] ANSI-Medicare Part B [id number] ANSI-Not a Secondary Insurance [id number] ANSI-Medicaid [id number] ANSI-Not a Secondary Insurance [id number] ANSI-Medicare Part B [id number] ANSI-Medicaid [id number] ANSI-Not a Secondary Insurance [id number] ANSI-Medicare Part B [id number] ANSI-Medicaid [id number] ANSI-Not a Secondary Insurance [id number] ANSI-Medicare Part B [id number] ANSI-Medicaid [id number] ANSI-Not a Secondary Insurance [id number] ANSI-Medicare Part B [id number] ANSI-Medicaid [id number] MEDICAID [id number] SP [id number] [facility] [id number] SP [id number] UHC UNITED MEDICARE COMPLETE G [id number] Self [id number] Medicaid [place] Medig[place] Part [place] [id number] Self [id number] [place] Medicare Primary [id number] Self [id number] [employer] Medigap Part B [id number] Self [id number] [employer]/Medicare Commercial [id number] Self [id number] Medicaid [place] [id number] Self [id number] ANSI-Medicare Part B [id number] ANSI-Not a Secondary Insurance [id number] ANSI-Medicaid [id number] MEDICARE [id number] SP [id number] ANSI-Medicaid [id number] ANSI-Medicare Part B [id number] ANSI-Medicare Part B [id number] ANSI-Medicare Part B [id number] ANSI-Medicare Part B [id number] ANSI-Medicaid [id number] ANSI-Medicare Part B [id number] ANSI-Medicaid [id number] ANSI-Medicare Part B [id number] ANSI-Medicaid [id number] ANSI-Medicare Part B [id number] ANSI-Medicare Part B [id number] ANSI-Medicare Part B [id number] ANSI-Medicaid [id number] ANSI-Medicare Part B [id number] ANSI-Medicare Part B [id number] ANSI-Medicaid [id number] ANSI-Medicare Part B [id number] ANSI-Medicaid [id number] ANSI-Medicare Part B [id number] ANSI-Medicare Part B [id number] [facility] O [id number] S [id number] ANSI-Medicare Part B [id number] ANSI-Medicare Part B [id number] ANSI-Medicaid [id number] ANSI-Medicaid [id number] ANSI-Medicare Part B [id number] ANSI-Medicare Part B [id number] [place] [id number] SP [id number] MEDICARE [id number] SP [id number] A ANSI-Medicaid [id number] ANSI-Medicare Part B [id number] ANSI-Medicare Part B [id number] MEDICARE C [id number] S [id number] MEDICARE C [id number] S [id number] A ANSI-Medicaid [id number] ANSI-Medicare Part B [id number] ANSI-Medicare Part B [id number] ANSI-Medicare Part B [id number] ANSI-Medicare Part B [id number] ANSI-Medicaid [id number] [facility]-Medicaid [id number] [facility] [id number] [facility] [id number] [place] [id number] SP [id number] MEDICARE COMPLETE [id number] SP [id number] MEDICARE [id number] SP [id number] MEDICARE COMPLETE [id number] SP [id number] [place] [id number] Self [id number] [facility] [id number] Self [id number] Medicare - [place] Medicare Primary [id number] Self [id number] [place] Part [place] [id number] Self [id number] [employer] Commercial [id number] Self [id number] [facility] Medicare Commercial [id number] Self [id number] MEDICARE COMPLETE [id number] SP [id number] [place] Part [place] [id number] Self [id number] [facility] Medicare Commercial [id number] Self [id number] MEDICARE COMPLETE [id number] SP [id number] [place] Part [place] [id number] Self [id number] [facility]/ Health Care Options Medigap Part B [id number] Self [id number] Medicare - [place] Medicare Primary [id number] Self [id number] [place] [id number] Self [id number] MEDICAID [id number] SP [id number] MEDICARE COMPLETE [id number] SP [id number] [facility] MEDICARE COMPLETE G [id number] Self [id number] MEDICARE COMPLETE [id number] SP [id number] [facility] [id number] SP [id number] [place] Med[place] Part B Self [facility] Medicare Commercial [id number] Self [id number] MEDICARE COMPLETE [id number] SP [id number] MEDICARE COMPLETE-[facility] O [id number] S [id number] [employer] (Medicare) Medigap Part B Self Medicaid [place] Medigap Part B Self [facility] ([facility]) Commercial Self [facility] [id number] SP [id number] MEDICARE [id number] SP [id number] A MEDICARE COMPLETE [id number] SP [id number] MEDICARE A [id number] Self [id number] A MEDICAID W [id number] MEDICARE OUTPATIENT M [id number] S [id number] A [id number] Problems, Conditions, and Diagnoses Code Display Name Description Problem Type Effective Dates Data Source(s) F51.04 [id number] Psychophysiologic insomnia Problem 0 12:00:00 AM EDT eCW1 ([facility]) C90.00 [id number] Multiple myeloma not having achieved grant ssion Problem 09/19/2019 12:00:00 AM EDT eCW1 ([facility]) 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 Positive Quant iFERON-TB Gold test [id number] 07/18/2019 12:00:00 AM EDT [facility] M10.9 Gout Gout [id number] 07/18/2019 12:00:00 AM ED T [facility] G44.209 [id number] Tension headache Problem 04/15/2019 12:00:00 AM EST eCW1 ([facility]) G44.209 [id number] Tension headache Problem 04/15/2019 12:00:00 AM EST eCW1 ([facility]) E78.2 Mixed hyperlipidemia Mixed hyperlipidemia Diagnosis 04/08/2020 02:03:57 PM EST [facility] I10 Essential (primary) hypertension Essential (primary) h ypertension Diagnosis 04/08/2020 02:03:57 PM [facility] I35.0 Nonrheumatic aortic (valve) stenosis Nonrheumati c aortic (valve) stenosis Diagnosis 04/08/2020 02:03:57 PM [facility] I25.10 Atherosclerotic heart diseas e of [place] coronary artery without angina pectoris Atherosclerotic heart disease of [place] Diagnosis 04/08/2020 02:03:57 PM [facility] R531 Weakness Weakness Diagnosis 03/06/2020 10:10:00 AM ES [facility] [id number] Other pancytopenia Other pancytopenia Diagnosis 10:10:00 AM [facility] Z5111 Encounter for antineoplastic chemotherap y Encounter for antineoplastic chemotherapy Diagnosis 03/04/2020 12:24:00 PM [facility] C9000 Multiple myeloma not having achieved rem ission Multiple myeloma not having achieved remission Diagnosis 03/04/2020 12:24:00 PM [facility] R7303 Prediabetes Prediabetes Diagnosis 03/04/2020 12:24:00 PM [facility] I10 Essential (primary) hypertension Essential (primary) h ypertension Diagnosis 03/04/2020 12:24:00 PM [facility] E876 Hypokalemia Hypokalemia Diagnosis 03/04/2020 12:24:00 PM [facility] E8342 Hypomagnesemia Hypomagnesemia Diagnosis 03/04/2020 12:24: 00 PM [facility] R197 Diarrhea, unspecified Diarrhea, unspecified Diagnosis 03/04/2020 12:24:00 PM [facility] Z1159 Encounter for screening for other viral diseases Encounter for screening for other viral diseases Diagnosis 03/04/2020 12:24:00 PM [facility] R112 Nausea with vomiting, unspecified Nausea with vo miting, unspecified Diagnosis 03/04/2020 12:24:00 PM [facility] E860 Dehydration Dehydration Diagnosis 03/04/2020 12:24:00 PM [facility] H53.2 Diplopia Diplopia Diagnosis 10/07/2019 03:58:21 PM ED [facility] M10.9 Gout, unspecified Gout, unspecified Diagnosis 04/12/2019 11:36:51 AM [facility] R76.12 Nonspecific reaction to cell mediated immunity measurement of gamma interferon antigen response without active tuberculosis Nonspecific reaction to cell mediated immunity measurement of gamma interferon antigen response without active tuberculosis Diagnosis 04/12/2019 11:36:51 AM [facility] C90.00 Multiple myeloma not having achieved rem ission Multiple myeloma not having achieved remission Diagnosis 03/20/2019 01:25:42 PM [facility] C90.0 C90.0 Diagnosis 03/20/2019 01:25:42 PM [facility] Surgeries/Procedures Procedure Description Date Indications Data Source(s) ECG ROUTINE ECG W/LEAST 12 LDS W/I&R POCT AMB EKG Routine 04/08/2020 3:07 PM EST Atherosclerosis of [place] coronary artery of [place] heart without angina pectoris 04/08/2020 08:07:00 PM EST Atheroscleros is of [place] coronary artery of [place] heart without angina pectoris [facility] Atherosclerosis of [place] coronary arter y of [place] heart without angina pectoris Computerized Tomography (CT Scan) of Head Computerized Tomography (CT Scan) of Head 03/10/2020 12:00:00 AM [facility] Plain Radiography of Chest Plain Radiography of Chest 2019 12:00:00 AM [facility] Introduction of Electrolytic and Water B alance Substance into Peripheral Vein, Percutaneous Approach Introduction of Electrolytic and Water B alance Substance into Peripheral Vein, Percutaneous Approach 03/06/2020 12:00:00 AM [facility] Monitoring of Cardiac Electrical Activity, External Ap proach Monitoring of Cardiac Electrical Activity, External Approach 03/06/2020 12:00:00 AM [facility] Immunization: Flublok Quadrivalent (18 years & older) 0.5mL IM (Influenza) 12/20/2019 12:00:00 AM EDT eCW1 ([facility]) Endoscopy Upper GI Biopsy 10/04/2019 12:00:00 AM EDT MEDENT ([facility]) Colonoscopy W/ Poly 10/04/2019 12:00:00 AM EDT MEDENT ([facility]) Office Visit, Est Pt., Level 4 PC 07/17/2019 12:00:00 AM EDT eCW1 ([facility]) Office Visit, Est Pt., Level 4 FC 07/17/2019 12:00:00 AM EDT eCW1 ([facility]) Medicare, Tricare, [place], PC-INTERPRETATION AND REPORT 07/17/2019 12:00:00 AM EDT eCW1 ([facility]) Medicare, Tricare, [place], -ELECTROCARDIOGRAM, TRACING ON LY 07/17/2019 12:00:00 AM EDT eCW1 ([facility]) PHYSICIAN TELEPHONE EVALUATION 11-20 MIN 06/10/2019 12 :00:00 AM EDT eCW1 ([facility]) FLOW CYTOMETRY CELL CYCLE/DNA SHIMA LEUKEMIA / LYMPHOM A PHENOTYPE, PERIPHERAL BLOOD Routine 03/20/2019 10:25 AM EST 03/20/2019 03:25 :00 PM [facility] Endoscopy Upper GI Biopsy 03/11/2019 12:00:00 AM EST SWAPNA ([facility]) Office Visit, Est Pt., Level 2 FC 03/08/2019 12:00:00 AM EST eCW1 ([facility]) Office Visit, Est Pt., Level 3 PC 03/08/2019 12:00:00 AM EST eCW1 ([facility]) Results ID Date Data Source [id number] 03/24/2020 06:18:00 PM EST [facility] Name Value Range Interpretation Code Description Data Miladys rce(s) Supporting Document(s) SARS coronavirus 2 RNA [Presence] in Res piratory specimen by NELLY with probe detection NEGATIVE [facility] This lab was ordered by [facility] a nd reported by [facility]. ID Date Data Source [id number] 03/12/2020 07:14:[address] [facility] Name Value Range Interpretation Code Description Data Miladys rce(s) Supporting Document(s) CBC W/AUTOMATED DIFF [facility] COMPLETE BLOOD COUNT Leukocytes [#/volume] in Blood by Automated count 2.4 10^3/uL 4.2 - [address] [facility] Erythrocytes [#/volume] in Blood by Automated count 2.66 10^6/uL 4. 20 - 5.[address] [facility] Hemoglobin [Mass/volume] in Blood 8.9 g/dL 12.0 - 16.[address] [facility] Hematocrit [Volume Fraction] of Blood by Automated count 26.3 % 3 7.0 - 47.[address] [facility] Erythrocyte mean corpuscular volume [Entitic volume] by Auto mated count 98.9 fL 81.0 - 101 [facility] Erythrocyte mean corpuscular hemoglobin [Entitic mass] by Automated count 33.5 pg 27.0 - 34.0 [facility] Erythrocyte mean corpuscular hemoglobin concentration [Mass/volume] by Automated count 33.8 g/dL 31.0 - 36.0 [facility] Erythrocyte distribution width [Ratio] by Automated count 17.3 % 11.5 - 14.[address] [facility] Platelets [#/volume] in Blood by Automated count 121 10^3/uL 150 - [address] [facility] Platelet mean volume [Entitic volume] in Blood by Automated count 10.1 fL 7.4 - 10.4 [facility] Neutrophils/100 leukocytes in Blood by Automated count 72.5 % 37. 0 - 80.0 [facility] Lymphocytes/100 leukocytes in Blood by Manual count 21.6 % 25.0 - 40.[address] [facility] Monocytes/100 leukocytes in Blood by Automated count 4.2 % 3.0 - 8.0 [facility] Eosinophils/100 leukocytes in Blood by Automated count 0.0 % 0.0 - 7.0 [facility] 0.4 %IG 1.3 % 0.0 [facility] Neutrophils [#/volume] in Blood by Automated count 1.71 10^3/uL 2.00 - 6.[address] [facility] Lymphocytes [#/volume] in Blood by Automated count 0.51 10^3/uL 0.60 - 3.[address] [facility] Monocytes [#/volume] in Blood by Automated count 0.10 10^3/uL 0.00 - 0.90 [facility] Eosinophils [#/volume] in Blood by Automated count 0.00 10^3/uL 0.00 - 0.70 [facility] Basophils [#/volume] in Blood by Automated count 0.01 10^3/uL 0.00 - 0.20 [facility] #IG 0.03 10^3/uL 0.00 - 0.10 [facility] #NRBC 0.00 10^3/uL 0.00 - 0.00 [facility] MANUAL DIFF SEE BELOW [facility] ital Segmented neutrophils/100 leukocytes in Blood by Manual count 78 % 37 - 80 [facility] BAND 1 % 0 - 5 [facility] Hospit al %LYMPH 18 % 25 - 40 L [facility] Hospit al %MONO 2 % 3 - 8 L [facility] al 1 RBC [facility]ORPH [facility] BELOW [facility] Anisocytosis [Presence] in Blood by Light microscopy 1+ NATASHA L: NONE SEEN A [facility] Macrocytes [Presence] in Blood by Light microscopy 1+ NORMAL: NONE SEEN A [facility] Poikilocytosis [Presence] in Blood by Light microscopy 1+ NOR MAL: NONE SEEN A [facility] Polychromasia [Presence] in Blood by Light microscopy 1+ NORM AL: NONE SEEN A [facility] { SICKLE CELL (NORMAL: NONE SEEN ) Ovalocytes [Presence] in Blood by Light microscopy 1+ NORMAL: NONE SEEN A [facility] Platelet adequacy [Presence] in Blood by Light microscopy DE CREASED NORMAL: NORMAL A [facility] COMMENT: ID Date Data Source [id number] 03/12/2020 06:43:00 AM [facility] Name Value Range Interpretation Code Description Data Miladys rce(s) Supporting Document(s) Magnesium [Mass/volume] in Serum or Plasma 1.5 MG/DL 1.7 - 2.[address] [facility] ID Date Data Source [id number] 03/12/2020 06:43:00 AM [facility] Name Value Range Interpretation Code Description Data Miladys rce(s) Supporting Document(s) COMPREHENSIVE METABOLIC PANEL [facility] COMPREHENSIVE METABOLIC PANEL Sodium [Moles/volume] in Serum or Plasma 139 mEq/L 134 - 153 [facility] Potassium [Moles/volume] in Serum or Plasma 4.8 mEq/L 3.6 - 5.0 [facility] Chloride [Moles/volume] in Serum or Plasma 104 mEq/L 98 - 107 [facility] Carbon dioxide, total [Moles/volume] in Serum or Plasma 27 MEQ/L 22 - 30 [facility] Glucose [Mass/volume] in Serum or Plasma 142 MG/DL 65 - [address] [facility] BUN 8 MG/DL 7 - 21 [facility] Creatinine [Mass/volume] in Serum or Plasma 0.5 MG/DL 0.7 - 1.[address] [facility] BUN/CREAT 16 8 - 27 [facility] Protein [Mass/volume] in Serum or Plasma 5.4 G/DL 6.3 - 8.[address] [facility] Albumin [Mass/volume] in Serum or Plasma 3.5 G/DL 3.9 - 5.[address] [facility] Globulin [Mass/volume] in Serum by calculation 1.9 GM/DL 2.4 - 3.[address] [facility] A/G RATIO 1.8 0.8 - 2.0 [facility] Calcium [Mass/volume] in Serum or Plasma 8.5 MG/DL 8.4 - 10.2 [facility] Bilirubin.total [Mass/volume] in Serum or Plasma 1.0 MG/DL 0.2 - 1.3 [facility] Alkaline phosphatase [Enzymatic activity/volume] in Serum or Plasma 88 U/L 38 - 126 [facility] Aspartate aminotransferase [Enzymatic activity/volume] in Se rum or Plasma 9 U/L 5 - 40 [facility] Alanine aminotransferase [Enzymatic activity/volume] in Seru m or Plasma 7 U/L 7 - 56 [facility] Anion gap 3 in Serum or Plasma 8.0 mmol/L 8.0 - 16.0 [facility] AGE 64 yrs [facility] Hospit al NON-AA GFR >60 mL/min [facility] ital AFR AMER GFR >60 [facility] pital Male GFR In terprentation [...] >32 mL/min Normal ID Date Data Source [id number] 03/11/2020 10:52:00 AM EST [facility] [address] [place] [address] PHONE: [phone] FAX: [phone] Name .................. : GAMA Nobles Acct Number.................. : [id number] ROOM. ................. : 103-1 MR Number ................... : [id number] Stay type ............. : I/P Discharge Date......... ... : Admit Date ......... : 1 05/05/19 Admit Phys .................... : RACHEL Date of ....... : 1955 Family Phys ................... : NON STAFF Phone .................. : [phone] Age ................................ : 64 Film# .................. .:[id number] Sex ................................. : F Unsigned transcriptions are preliminary reports and do not represent a medical or legal document CT HEAD W/O CONTRAST [id number] COMPLETE:03/10/20 17:58 1109 (REASON FOR PROCEDURE :H [...] 03/10/20 22:23, Dictation Date: Copy for: 002 [facility] Copy for: 710 [facility] REC Page 1 of 1 Name Value Range Interpretation Code Description Data Miladys rce(s) Supporting Document(s) ID Date Data Source [id number] 03/13/2020 08:14:00 PM [facility] Name Value Range Interpretation Code Description Data Miladys rce(s) Supporting Document(s) Cytomegalovirus DNA [log units/volume] ( viral load) in Plasma by Probe and target amplification method COMMENT [id number]/mL [facility] Unable to calculate result since non-num rickey result obtained forcomponent test. Cytomegalovirus DNA [Units/volume] (sohail l load) in Plasma by Probe and target amplification method Negative IU/mL Negative [facility] No CMV DNA detected.The quantitative ran ge of this assay is 200 to 1 million IU/mL.This test was developed and its performance characteristics determinedby [employer]. It has not been cleared or approved by the Food and DrugAdministration. The FDA has determined that such clearance orapproval is not necessary. ID Date Data Source [id number] 03/11/2020 06:59:[address] [facility] Name Value Range Interpretation Code Description Data Miladys rce(s) Supporting Document(s) CBC W/AUTOMATED DIFF [facility] COMPLETE BLOOD COUNT Leukocytes [#/volume] in Blood by Automated count 2.4 10^3/uL 4.2 - [address] [facility] Erythrocytes [#/volume] in Blood by Automated count 2.51 10^6/uL 4. 20 - 5.[address] [facility] Hemoglobin [Mass/volume] in Blood 8.4 g/dL 12.0 - 16.[address] [facility] Hematocrit [Volume Fraction] of Blood by Automated count 25.3 % 3 7.0 - 47.[address] [facility] Erythrocyte mean corpuscular volume [Entitic volume] b y Automated count 100.8 fL 81.0 - 101 [facility] Erythrocyte mean corpuscular hemoglobin [Entitic mass] by Automated count 33.5 pg 27.0 - 34.0 [facility] Erythrocyte mean corpuscular hemoglobin concentration [Mass/volume] by Automated count 33.2 g/dL 31.0 - 36.0 [facility] Erythrocyte distribution width [Ratio] by Automated count 17.9 % 11.5 - 14.[address] [facility] Platelets [#/volume] in Blood by Automated count 101 10^3/uL 150 - [address] [facility] Platelet mean volume [Entitic volume] in Blood by Automated count 10.8 fL 7.4 - 10.[address] [facility] Neutrophils/100 leukocytes in Blood by Automated count 58.0 % 37. 0 - 80.0 [facility] Lymphocytes/100 leukocytes in Blood by Manual count 26.8 % 25.0 - 40.0 [facility] Monocytes/100 leukocytes in Blood by Automated count 10.6 % 3.0 - 8.[address] [facility] Eosinophils/100 leukocytes in Blood by Automated count 3.8 % 0.0 - 7.0 [facility] Basophils/100 leukocytes in Blood by Automated count 0.4 % 0.0 - 2.5 [facility] %IG 0.4 % 0.0 - 0.0 H [facility] Hospit al %NRBC 0.0 % 0.0 - [facility] Neut[facility] [#/volume] in Blood by Automated count 1.36 10^3/uL 2.00 - 6.[address] [facility] Lymphocytes [#/volume] in Blood by Automated count 0.63 10^3/uL 0.60 - 3.40 [facility] Monocytes [#/volume] in Blood by Automated count 0.25 10^3/uL 0.00 - 0.90 [facility] Eosinophils [#/volume] in Blood by Automated count 0.09 10^3/uL 0.00 - 0.70 [facility] Basophils [#/volume] in Blood by Automated count 0.01 10^3/uL 0.00 - 0.20 [facility] #IG 0.01 10^3/uL 0.00 - 0.10 [facility] #NRBC 0.00 10^3/uL 0.00 - 0.00 [facility] MANUAL DIFF SEE BELOW [facility] ital Segmented neutrophils/100 leukocytes in Blood by Manual count 65 % 37 - 80 [facility] %LYMPH 20 % 25 - 40 L [facility] Hospit al %MONO 9 % 3 - 8 H [facility] Hospit al %EOS 6 % 0 - 7 [facility] al RBC MORPH NOT INDICATED [facility] ID Date Data Source [id number] 03/11/2020 06:48:[address] [facility] Name Value Range Interpretation Code Description Data Miladys rce(s) Supporting Document(s) Magnesium [Mass/volume] in Serum or Plasma 1.5 MG/DL 1.7 - 2.[address] [facility] ID Date Data Source [id number] 03/11/2020 06:48:[address] [facility] Name Value Range Interpretation Code Description Data [facility](s) Supporting Document(s) COMPREHENSIVE METABOLIC PANEL [facility] COMPREHENSIVE METABOLIC PANEL Sodium [Moles/volume] in Serum or Plasma 139 mEq/L 134 - 153 [facility] Potassium [Moles/volume] in Serum or Plasma 4.1 mEq/L 3.6 - 5.0 [facility] Chloride [Moles/volume] in Serum or Plasma 104 mEq/L 98 - 107 [facility] Carbon dioxide, total [Moles/volume] in Serum or Plasma 29 MEQ/L 22 - 30 [facility] Glucose [Mass/volume] in Serum or Plasma 85 MG/DL 65 - 110 [facility] BUN 5 MG/DL 7 - 21 [facility] Creatinine [Mass/volume] in Serum or Plasma 0.6 MG/DL 0.7 - 1.[address] [facility] BUN/CREAT 8 8 - 27 [facility] Protein [Mass/volume] in Serum or Plasma 5.1 G/DL 6.3 - 8.[address] [facility] Albumin [Mass/volume] in Serum or Plasma 3.1 G/DL 3.9 - 5.[address] [facility] Globulin [Mass/volume] in Serum by calculation 2.0 GM/DL 2.4 - 3.[address] [facility] A/G RATIO 1.6 0.8 - 2.0 [facility] Calcium [Mass/volume] in Serum or Plasma 8.7 MG/DL 8.4 - 10.2 [facility] Bilirubin.total [Mass/volume] in Serum or Plasma 0.9 MG/DL 0.2 - 1.3 [facility] Alkaline phosphatase [Enzymatic activity/volume] in Serum or Plasma 83 U/L 38 - 126 [facility] Aspartate aminotransferase [Enzymatic activity/volume] in Se rum or Plasma 8 U/L 5 - 40 [facility] Alanine aminotransferase [Enzymatic activity/volume] in Seru m or Plasma 8 U/L 7 - 56 [facility] Anion gap 3 in Serum or Plasma 6.0 mmol/L 8.0 - 16.[address] [facility] AGE 64 yrs [facility] NON-AA GFR >60 mL/min [facility] ital AFR AMER GFR >60 [facility] Male GFR In terprentation [...] >32 mL/min Normal ID Date Data Source [id number] 03/10/2020 07:25:[address] [facility] Name Value Range Interpretation Code Description Data Miladys rce(s) Supporting Document(s) COMPREHENSIVE METABOLIC PANEL [facility] COMPREHENSIVE METABOLIC PANEL Sodium [Moles/volume] in Serum or Plasma 141 mEq/L 134 - 153 [facility] Potassium [Moles/volume] in Serum or Plasma 4.3 mEq/L 3.6 - 5.0 [facility] Chloride [Moles/volume] in Serum or Plasma 105 mEq/L 98 - 107 [facility] Carbon dioxide, total [Moles/volume] in Serum or Plasma 29 MEQ/L 22 - 30 [facility] Glucose [Mass/volume] in Serum or Plasma 103 MG/DL 65 - 110 [facility] BUN 6 MG/DL 7 - 21 L [facility] Creatinine [Mass/volume] in Serum or Plasma 0.5 MG/DL 0.7 - 1.[address] [facility] BUN/CREAT 12 8 - 27 [facility] Protein [Mass/volume] in Serum or Plasma 5.4 G/DL 6.3 - 8.[address] [facility] Albumin [Mass/volume] in Serum or Plasma 3.4 G/DL 3.9 - 5.[address] [facility] Globulin [Mass/volume] in Serum by calculation 2.0 GM/DL 2.4 - 3.[address] [facility] A/G RATIO 1.7 0.8 - 2.0 [facility] Calcium [Mass/volume] in Serum or Plasma 8.8 MG/DL 8.4 - 10.2 [facility] Bilirubin.total [Mass/volume] in Serum or Plasma 0.7 MG/DL 0.2 - 1.3 [facility] Alkaline phosphatase [Enzymatic activity/volume] in Serum or Plasma 79 U/L 38 - 126 [facility] Aspartate aminotransferase [Enzymatic activity/volume] in Se rum or Plasma 9 U/L 5 - 40 [facility] Alanine aminotransferase [Enzymatic activity/volume] in Seru m or Plasma 8 U/L 7 - 56 [facility] Anion gap 3 in Serum or Plasma 7.0 mmol/L 8.0 - 16.[address] [facility] AGE 64 yrs [facility] NON-AA GFR >60 mL/min [facility] ital AFR AMER GFR >60 [facility] pital Male GFR In terprentation 20-49 yrs [...] >32 mL/min Normal ID Date Data Source [id number] 03/10/2020 07:25:00 AM [facility] Name Value Range Interpretation Code Description Data Miladys rce(s) Supporting Document(s) Magnesium [Mass/volume] in Serum or Plasma 1.4 MG/DL 1.7 - 2.[address] [facility] ID Date Data Source [id number] 03/10/2020 07:20:00 AM [facility] Name Value Range Interpretation Code Description Data Miladys rce(s) Supporting Document(s) CBC W/AUTOMATED DIFF [facility] COMPLETE BLOOD COUNT Leukocytes [#/volume] in Blood by Automated count 2.7 10^3/uL 4.2 - [address] [facility] Erythrocytes [#/volume] in Blood by Automated count 2.62 10^6/uL 4. 20 - 5.[address] [facility] Hemoglobin [Mass/volume] in Blood 8.9 g/dL 12.0 - 16.[address] [facility] Hematocrit [Volume Fraction] of Blood by Automated count 26.4 % 3 7.0 - 47.[address] [facility] Erythrocyte mean corpuscular volume [Entitic volume] b y Automated count 100.8 fL 81.0 - 101 [facility] Erythrocyte mean corpuscular hemoglobin [Entitic mass] by Automated count 34.0 pg 27.0 - 34.0 [facility] Erythrocyte mean corpuscular hemoglobin concentration [Mass/volume] by Automated count 33.7 g/dL 31.0 - 36.0 [facility] Erythrocyte distribution width [Ratio] by Automated count 18.2 % 11.5 - 14.[address] [facility] Platelets [#/volume] in Blood by Automated count 103 10^3/uL 150 - [address] [facility] Platelet mean volume [Entitic volume] in Blood by Automated count 10.2 fL 7.4 - 10.4 [facility] Neutrophils/100 leukocytes in Blood by Automated count 58.0 % 37. 0 - 80.0 [facility] Lymphocytes/100 leukocytes in Blood by Manual count 28.0 % 25.0 - 40.0 [facility] Monocytes/100 leukocytes in Blood by Automated count 10.0 % 3.0 - 8.[address] [facility] Eosinophils/100 leukocytes in Blood by Automated count 2.6 % 0.0 - 7.0 [facility] Basophils/100 leukocytes in Blood by Automated count 0.7 % 0.0 - 2.5 [facility] %IG 0.7 % 0.0 - [facility] Neutrophils [#/volume] in Blood by Automated count 1.57 10^3/uL 2.00 - 6.[address] [facility] Lymphocytes [#/volume] in Blood by Automated count 0.76 10^3/uL 0.60 - 3.40 [facility] Monocytes [#/volume] in Blood by Automated count 0.27 10^3/uL 0.00 - 0.90 [facility] Eosinophils [#/volume] in Blood by Automated count 0.07 10^3/uL 0.00 - 0.70 [facility] Basophils [#/volume] in Blood by Automated count 0.02 10^3/uL 0.00 - 0.20 [facility] #IG 0.02 10^3/uL 0.00 - 0.10 [facility] #NRBC 0.00 10^3/uL 0.00 - 0.00 [facility] MANUAL DIFF SEE BELOW [facility] ital Segmented neutrophils/100 leukocytes in Blood by Manual count 64 % 37 - 80 [facility] BAND 1 % 0 - 5 [facility] %LYMPH 21 % 25 - 40 L [facility] al %MONO 8 % 3 - 8 [facility] %EOS 5 % 0 - 7 [facility] Met[facility]el[facility]/100 leukocytes in Blood by Manual count 1 % [facility] RBC MORPH SEE BELOW [facility] Anisocytosis [Presence] in Blood by Light microscopy 1+ NATASHA L: NONE SEEN A [facility] Macrocytes [Presence] in Blood by Light microscopy 1+ NORMAL: NONE SEEN A [facility] Poikilocytosis [Presence] in Blood by Light microscopy 1+ NOR MAL: NONE SEEN A [facility] Polychromasia [Presence] in Blood by Light microscopy 1+ NORM AL: NONE SEEN A [facility] { SICKLE CELL (NORMAL: NONE SEEN ) Platelet adequacy [Presence] in Blood by Light microscopy DE CREASED NORMAL: NORMAL A [facility] COMMENT: ID Date Data Source [id number] 03/09/2020 09:47:00 AM EST [facility] [address] [place] [address] PHONE: [phone] FAX: [phone] Name .................. : GAMA Nobles Acct Number.................. : [id number] ROOM. ................. : 103-1 MR Number ................... : [id number] Stay type ............. : O/P Discharge Date......... ... : Admit Date ......... : 03/04/20 Admit Phys .................... : DANIKA-FALAN Date of ....... : 1955 Family Phys ................... : NON STAFF Phone .................. : [phone] Age ................................ : 64 Film# .................. .:[id number] Sex ................................. : F Unsigned transcriptions are preliminary reports and do not represent a medical or legal document DOPPLER VENOUS BILAT LEG [id number] COMPLETE:03/05/20 12:55 KNB 862 (REASON FOR PROCESS: [...] 03/05/20 13:17, Dictation Date: Copy for: 002 [facility] Copy for: 710 [facility] REC Page 1 of 1 Name Value Range Interpretation Code Description Data Miladys rce(s) Supporting Document(s) ID Date Data Source [id number] 03/09/2020 09:20:00 [place] [address] PHONE: [phone] FAX: [phone] Name .................. : GAMA Nobles Acct Number.................. : [id number] ROOM. ................. : 103-1 MR Number ................... : [id number] Stay type ............. : I/P Discharge Date......... ... : Admit Date ......... : 03/04/20 Admit Phys .................... : RACHEL Date of ....... : 1955 Family Phys ................... : NON STAFF Phone .................. : [phone] Age ................................ : 64 Film# .................. .:[id number] Sex ................................. : F Unsigned transcriptions are preliminary reports and do not represent a medical or legal document CHEST 2 VIEWS [id number] COMPLETE:03/09/20 06:02 BEM 988 (REASON FOR CHEST: [...] 03/09/20 07:55, Dictation Date: Copy for: 002 [facility] Copy for: 710 [facility] REC Page 1 of 1 Name Value Range Interpretation Code Description Data Miladys rce(s) Supporting Document(s) ID Date Data Source [id number] 03/09/2020 07:42:[address] [facility] Name Value Range Interpretation Code Description Data Miladys rce(s) Supporting Document(s) CBC W/AUTOMATED DIFF [facility] COMPLETE BLOOD COUNT Leukocytes [#/volume] in Blood by Automated count 2.3 10^3/uL 4.2 - [address] [facility] Erythrocytes [#/volume] in Blood by Automated count 2.75 10^6/uL 4. 20 - 5.[address] [facility] Hemoglobin [Mass/volume] in Blood 9.1 g/dL 12.0 - 16.[address] [facility] Hematocrit [Volume Fraction] of Blood by Automated count 27.1 % 3 7.0 - 47.[address] [facility] Erythrocyte mean corpuscular volume [Entitic volume] by Auto mated count 98.5 fL 81.0 - 101 [facility] Erythrocyte mean corpuscular hemoglobin [Entitic mass] by Automated count 33.1 pg 27.0 - 34.0 [facility] Erythrocyte mean corpuscular hemoglobin concentration [Mass/volume] by Automated count 33.6 g/dL 31.0 - 36.0 [facility] Erythrocyte distribution width [Ratio] by Automated count 17.8 % 11.5 - 14.[address] [facility] Platelets [#/volume] in Blood by Automated count 101 10^3/uL 150 - [address] [facility] Platelet mean volume [Entitic volume] in Blood by Automated count 10.8 fL 7.4 - 10.[address] [facility] Neutrophils/100 leukocytes in Blood by Automated count 58.2 % 37. 0 - 80.0 [facility] Lymphocytes/100 leukocytes in Blood by Manual count 27.0 % 25.0 - 40.0 [facility] Monocytes/100 leukocytes in Blood by Automated count 12.2 % 3.0 - 8.[address] [facility] Eosinophils/100 leukocytes in Blood by Automated count 1.3 % 0.0 - 7.0 [facility] Basophils/100 leukocytes in Blood by Automated count 0.9 % 0.0 - 2.5 [facility] %IG 0.4 % 0.0 - 0.0 [facility] 0[facility] % 0[facility]0 - [facility].0 [facility] Neutrophils [#/volume] in Blood by Automated count 1.34 10^3/uL 2.00 - 6.[address] [facility] Lymphocytes [#/volume] in Blood by Automated count 0.62 10^3/uL 0.60 - 3.40 [facility] Monocytes [#/volume] in Blood by Automated count 0.28 10^3/uL 0.00 - 0.90 [facility] Eosinophils [#/volume] in Blood by Automated count 0.03 10^3/uL 0.00 - 0.70 [facility] Basophils [#/volume] in Blood by Automated count 0.02 10^3/uL 0.00 - 0.20 [facility] #IG 0.01 10^3/uL 0.00 - 0.10 [facility] #NRBC 0.00 10^3/uL 0.00 - 0.00 [facility] ospital MANUAL DIFF SEE BELOW [facility] Segmented neutrophils/100 leukocytes in Blood by Manual count 62 % 37 - 80 [facility] %LYMPH 29 % 25 - 40 [facility] %MONO 8 % 3 - 8 [facility] %EOS 1 % 0 - 7 [facility] RBC MORPH NOT INDICATED [facility] ID Date Data Source [id number] 03/09/2020 07:26:[address] [facility] Name Value Range Interpretation Code Description Data Miladys rce(s) Supporting Document(s) COMPREHENSIVE METABOLIC PANEL [facility] COMPREHENSIVE METABOLIC PANEL Sodium [Moles/volume] in Serum or Plasma 142 mEq/L 134 - 153 [facility] Potassium [Moles/volume] in Serum or Plasma 3.2 mEq/L 3.6 - 5.[address] [facility] Chloride [Moles/volume] in Serum or Plasma 101 mEq/L 98 - 107 [facility] Carbon dioxide, total [Moles/volume] in Serum or Plasma 34 MEQ/L 22 - [address] [facility] Glucose [Mass/volume] in Serum or Plasma 99 MG/DL 65 - 110 [facility] BUN 8 MG/DL 7 - 21 [facility] Creatinine [Mass/volume] in Serum or Plasma 0.7 MG/DL 0.7 - 1.5 [facility] BUN/CREAT 11 8 - 27 [facility] Protein [Mass/volume] in Serum or Plasma 5.4 G/DL 6.3 - 8.[address] [facility] Albumin [Mass/volume] in Serum or Plasma 3.6 G/DL 3.9 - 5.[address] [facility] Globulin [Mass/volume] in Serum by calculation 1.8 GM/DL 2.4 - 3.[address] [facility] A/G RATIO 2.0 0.8 - 2.0 [facility] Calcium [Mass/volume] in Serum or Plasma 8.5 MG/DL 8.4 - 10.2 [facility] Bilirubin.total [Mass/volume] in Serum or Plasma 1.0 MG/DL 0.2 - 1.3 [facility] Alkaline phosphatase [Enzymatic activity/volume] in Serum or Plasma 79 U/L 38 - 126 [facility] Aspartate aminotransferase [Enzymatic activity/volume] in Se rum or Plasma 9 U/L 5 - 40 [facility] Alanine aminotransferase [Enzymatic activity/volume] in Seru m or Plasma 8 U/L 7 - 56 [facility] Anion gap 3 in Serum or Plasma 7.0 mmol/L 8.0 - 16.[address] [facility] AGE 64 yrs [facility] NON-AA GFR >60 mL/min [facility] ital AFR AMER GFR >60 [facility] Male GFR In terprentation [...] >32 mL/min Normal ID Date Data Source [id number] 03/09/2020 07:26:00 AM [facility] Name Value Range Interpretation Code Description Data Miladys rce(s) Supporting Document(s) Magnesium [Mass/volume] in Serum or Plasma 1.2 MG/DL 1.7 - 2.[address] [facility] ID Date Data Source [id number] 03/16/2020 12:12:00 PM EST [facility] Name Value Range Interpretation Code Description Data [facility] rce(s) Supporting Document(s) CULTURE BLOOD [facility] spital _CULTURE BLOOD_ [place] [address] IA# [id number] SEE SCANNED REPORT{ PRELIM ID Date Data Source [id number] 03/10/2020 01:00:00 PM [facility] [id number] 12:56 CALLED TO WAYNE Nobles BY OPAL, [...] rce(s) Supporting Document(s) ID Date Data Source [id number] 03/16/2020 12:12:00 PM [facility] Name Value Range Interpretation Code Description Data Miladys rce(s) Supporting Document(s) CULTURE BLOOD [facility] spital _CULTURE BLOOD_ [place] [address] IA# [id number] SEE SCANNED REPORT{ PRELIM GROWTH OF GRAM POS COCCI IN CLUSTERSCALLED TO PAT ON AIU 03/10/20 1305 CM ID Date Data Source [id number] 03/08/2020 08:45:00 PM EST [facility] Name Value Range Interpretation Code Description Data Miladys rce(s) Supporting Document(s) COVID-19 NOT DETECTED [facility] This lab was ordered by [facility] and reported by [facility]. ID Date Data Source [id number] 03/08/2020 08:45:00 PM EST [facility] Name Value Range Interpretation Code Description Data Miladys rce(s) Supporting Document(s) COVID-19 REENTER NOT DETECTED [facility] This lab was ordered by [facility] and reported by [facility]. ID Date Data Source [id number] 03/08/2020 09:35:00 PM EST [facility] Name Value Range Interpretation Code Description Data Miladys rce(s) Supporting Document(s) COVID-19 NOT DETECTED [facility] COVID-19 REENTER NOT DETECTED [facility] { PROCEDURAL CONTROL VALID KIT LOT # _[id number] 03/08/20.DW . KIT EXP DATE _10-25-43 03/08/20.DW . NORMAL RANGE IS NOT DETECTEDNEGATIVE RESULTS SHOULD BE TREATED PREUMPTIVE AND, IF INCONSISTENT WITHCLINICAL SIGNS AND SYMPTOMS OR NECESSARY FOR PATIENT MANAGEMENT, SHOULD BETESTED WITH DIFFERENT AUTHORIZED OR CLEARED MOLECULAR TESTS. NEGATIVE RESULTSDO NOT PRECLUDE SARS-CoV-2 INFECTION AND SHOULD NOT BE USED THE SOLE BASISFOR PATIENT MANAGEMENT DECISIONS. ID Date Data Source [id number] 03/08/2020 11:55:[address] [facility] Name Value Range Interpretation Code Description Data Miladys rce(s) Supporting Document(s) Magnesium [Mass/volume] in Serum or Plasma 1.6 MG/DL 1.7 - 2.[address] [facility] ID Date Data Source [id number] 03/08/2020 09:41:[address] [facility] Name Value Range Interpretation Code Description Data Miladys rce(s) Supporting Document(s) CBC W/AUTOMATED DIFF [facility] COMPLETE BLOOD COUNT Leukocytes [#/volume] in Blood by Automated count 2.3 10^3/uL 4.2 - [address] [facility] Erythrocytes [#/volume] in Blood by Automated count 2.51 10^6/uL 4. 20 - 5.[address] [facility] Hemoglobin [Mass/volume] in Blood 8.5 g/dL 12.0 - 16.[address] [facility] Hematocrit [Volume Fraction] of Blood by Automated count 24.6 % 3 7.0 - 47.[address] [facility] Erythrocyte mean corpuscular volume [Entitic volume] by Auto mated count 98.0 fL 81.0 - 101 [facility] Erythrocyte mean corpuscular hemoglobin [Entitic mass] by Automated count 33.9 pg 27.0 - 34.0 [facility] Erythrocyte mean corpuscular hemoglobin concentration [Mass/volume] by Automated count 34.6 g/dL 31.0 - 36.0 [facility] Erythrocyte distribution width [Ratio] by Automated count 17.5 % 11.5 - 14.[address] [facility] Platelets [#/volume] in Blood by Automated count 94 10^3/uL 150 - [address] [facility] Platelet mean volume [Entitic volume] in Blood by Automated count 11.1 fL 7.4 - 10.[address] [facility] Neutrophils/100 leukocytes in Blood by Automated count 61.3 % 37. 0 - 80.0 [facility] Lymphocytes/100 leukocytes in Blood by Manual count 23.2 % 25.0 - 40.[address] [facility] Monocytes/100 leukocytes in Blood by Automated count 12.9 % 3.0 - 8.[address] [facility] Eosinophils/100 leukocytes in Blood by Automated count 1.3 % 0.0 - 7.0 [facility] Basophils/100 leukocytes in Blood by Automated count 0.9 % 0.0 - 2.5 [facility] %IG 0.4 % 0.0 - 0.0 [facility] 0.0 % 0.0 - 0.0 [facility] Neutrophils [#/volume] in Blood by Automated count 1.43 10^3/uL 2.00 - 6.[address] [facility] Lymphocytes [#/volume] in Blood by Automated count 0.54 10^3/uL 0.60 - 3.[address] [facility] Monocytes [#/volume] in Blood by Automated count 0.30 10^3/uL 0.00 - 0.90 [facility] Eosinophils [#/volume] in Blood by Automated count 0.03 10^3/uL 0.00 - 0.70 [facility] Basophils [#/volume] in Blood by Automated count 0.02 10^3/uL 0.00 - 0.20 [facility] #IG 0.01 10^3/uL 0.00 - 0.10 [facility] #NRBC 0.00 10^3/uL 0.00 - 0.00 [facility] ospital MANUAL DIFF NOT INDICATED [facility] RBC MORPH NOT INDICATED [facility] spital ID Date Data Source [id number] 03/08/2020 09:00:[address] [facility] Name Value Range Interpretation Code Description Data Miladys rce(s) Supporting Document(s) COMPREHENSIVE METABOLIC PANEL [facility] COMPREHENSIVE METABOLIC PANEL Sodium [Moles/volume] in Serum or Plasma 141 mEq/L 134 - 153 [facility] Potassium [Moles/volume] in Serum or Plasma 3.1 mEq/L 3.6 - 5.[address] [facility] Chloride [Moles/volume] in Serum or Plasma 106 mEq/L 98 - 107 [facility] Carbon dioxide, total [Moles/volume] in Serum or Plasma 30 MEQ/L 22 - 30 [facility] Glucose [Mass/volume] in Serum or Plasma 86 MG/DL 65 - 110 [facility] BUN <4 MG/DL 7 - 21 L [facility] Creatinine [Mass/volume] in Serum or Plasma 0.5 MG/DL 0.7 - 1.[address] [facility] BUN/CREAT 8 8 - 27 [facility] Protein [Mass/volume] in Serum or Plasma 5.1 G/DL 6.3 - 8.[address] [facility] Albumin [Mass/volume] in Serum or Plasma 2.9 G/DL 3.9 - 5.[address] [facility] Globulin [Mass/volume] in Serum by calculation 2.2 GM/DL 2.4 - 3.[address] [facility] A/G RATIO 1.3 0.8 - 2.0 [facility] Calcium [Mass/volume] in Serum or Plasma 8.3 MG/DL 8.4 - 10.[address] [facility] Bilirubin.total [Mass/volume] in Serum or Plasma 0.8 MG/DL 0.2 - 1.3 [facility] Alkaline phosphatase [Enzymatic activity/volume] in Serum or Plasma 70 U/L 38 - 126 [facility] Aspartate aminotransferase [Enzymatic activity/volume] in Se rum or Plasma 8 U/L 5 - 40 [facility] Alanine aminotransferase [Enzymatic activity/volume] in Seru m or Plasma 7 U/L 7 - 56 [facility] Anion gap 3 in Serum or Plasma 5.0 mmol/L 8.0 - 16.[address] [facility] AGE 64 yrs [facility] NON-AA GFR >60 mL/min [facility] ital AFR AMER GFR >60 [facility] Male GFR In terprentation [...] >32 mL/min Normal ID Date Data Source [id number] 03/07/2020 10:42:[address] [facility] Name Value Range Interpretation Code Description Data Miladys rce(s) Supporting Document(s) Iron [Mass/volume] in Serum or Plasma 62 UG/DL 42 - 135 [facility] ID Date Data Source [id number] 03/07/2020 09:11:[address] [facility] Name Value Range Interpretation Code Description Data Miladys rce(s) Supporting Document(s) CBC W/AUTOMATED DIFF [facility] COMPLETE BLOOD COUNT Leukocytes [#/volume] in Blood by Automated count 2.5 10^3/uL 4.2 - [address] [facility] Erythrocytes [#/volume] in Blood by Automated count 2.52 10^6/uL 4. 20 - 5.[address] [facility] Hemoglobin [Mass/volume] in Blood 8.4 g/dL 12.0 - 16.[address] [facility] Hematocrit [Volume Fraction] of Blood by Automated count 24.8 % 3 7.0 - 47.[address] [facility] Erythrocyte mean corpuscular volume [Entitic volume] by Auto mated count 98.4 fL 81.0 - 101 [facility] Erythrocyte mean corpuscular hemoglobin [Entitic mass] by Automated count 33.3 pg 27.0 - 34.0 [facility] Erythrocyte mean corpuscular hemoglobin concentration [Mass/volume] by Automated count 33.9 g/dL 31.0 - 36.0 [facility] Erythrocyte distribution width [Ratio] by Automated count 17.5 % 11.5 - 14.[address] [facility] Platelets [#/volume] in Blood by Automated count 86 10^3/uL 150 - [address] [facility] Platelet mean volume [Entitic volume] in Blood by Automated count 10.5 fL 7.4 - 10.[address] [facility] Neutrophils/100 leukocytes in Blood by Automated count 66.3 % 37. 0 - 80.0 [facility] Lymphocytes/100 leukocytes in Blood by Manual count 18.9 % 25.0 - 40.[address] [facility] Monocytes/100 leukocytes in Blood by Automated count 10.8 % 3.0 - 8.[address] [facility] Eosinophils/100 leukocytes in Blood by Automated count 2.8 % 0.0 - 7.0 [facility] Basophils/100 leukocytes in Blood by Automated count 0.8 % 0.0 - 2.5 [facility] %IG 0.4 % 0.0 - 0.0 [facility] %[facility] 0.0 % 0.0 - 0.0 [facility] Neutrophils [#/volume] in Blood by Automated count 1.65 10^3/uL 2.00 - 6.[address] [facility] Lymphocytes [#/volume] in Blood by Automated count 0.47 10^3/uL 0.60 - 3.[address] [facility] Monocytes [#/volume] in Blood by Automated count 0.27 10^3/uL 0.00 - 0.90 [facility] Eosinophils [#/volume] in Blood by Automated count 0.07 10^3/uL 0.00 - 0.70 [facility] Basophils [#/volume] in Blood by Automated count 0.02 10^3/uL 0.00 - 0.20 [facility] #IG 0.01 10^3/uL 0.00 - 0.10 [facility] #NRBC 0.00 10^3/uL 0.00 - 0.00 [facility] MANUAL DIFF NOT INDICATED [facility] RBC MORPH NOT INDICATED [facility] ID Date Data Source [id number] 03/07/2020 08:40:00 AM [facility] Name Value Range Interpretation Code Description Data Miladys rce(s) Supporting Document(s) Magnesium [Mass/volume] in Serum or Plasma 1.1 MG/DL 1.7 - 2.[address] [facility] ID Date Data Source [id number] 03/07/2020 08:40:00 AM [facility] Name Value Range Interpretation Code Description Data Miladys rce(s) Supporting Document(s) COMPREHENSIVE METABOLIC PANEL [facility] COMPREHENSIVE METABOLIC PANEL Sodium [Moles/volume] in Serum or Plasma 139 mEq/L 134 - 153 [facility] Potassium [Moles/volume] in Serum or Plasma 3.4 mEq/L 3.6 - 5.[address] [facility] Chloride [Moles/volume] in Serum or Plasma 107 mEq/L 98 - 107 [facility] Carbon dioxide, total [Moles/volume] in Serum or Plasma 26 MEQ/L 22 - 30 [facility] Glucose [Mass/volume] in Serum or Plasma 91 MG/DL 65 - 110 [facility] BUN 5 MG/DL 7 - 21 L [facility] Creatinine [Mass/volume] in Serum or Plasma 0.5 MG/DL 0.7 - 1.[address] [facility] BUN/CREAT 10 8 - 27 [facility] Protein [Mass/volume] in Serum or Plasma 4.7 G/DL 6.3 - 8.[address] [facility] Albumin [Mass/volume] in Serum or Plasma 3.0 G/DL 3.9 - 5.[address] [facility] Globulin [Mass/volume] in Serum by calculation 1.7 GM/DL 2.4 - 3.[address] [facility] A/G RATIO 1.8 0.8 - 2.0 [facility] Calcium [Mass/volume] in Serum or Plasma 8.0 MG/DL 8.4 - 10.[address] [facility] Bilirubin.total [Mass/volume] in Serum or Plasma <0.7 MG/DL 0.2 - 1.3 [facility] Alkaline phosphatase [Enzymatic activity/volume] in Serum or Plasma 69 U/L 38 - 126 [facility] Aspartate aminotransferase [Enzymatic activity/volume] in Se rum or Plasma 8 U/L 5 - 40 [facility] Alanine aminotransferase [Enzymatic activity/volume] in Seru m or Plasma 6 U/L 7 - [address] [facility] Anion gap 3 in Serum or Plasma 6.0 mmol/L 8.0 - 16.[address] [facility] AGE 64 yrs [facility] NON-AA GFR >60 mL/min [facility] ital AFR AMER GFR >60 [facility] Male GFR In terprentation [...] >32 mL/min Normal ID Date Data Source [id number] 03/11/2020 06:20:00 AM [facility] Name Value Range Interpretation Code Description Data Miladys rce(s) Supporting Document(s) Clostridium difficile toxin A+B [Presence] in Stool by Immun oassay Negative Negative [facility] ID Date Data Source [id number] 03/10/2020 06:12:00 AM [facility] Name Value Range Interpretation Code Description Data Miladys rce(s) Supporting Document(s) WBC STOOL [facility] _WBC STOOL_$$[id number]$$[id number]$$[id number] $$[id number]$$[id number]$$[id number] DATE/TIME: 03/09/2020 18:05Culture: WBC STOOL Status: FinalWhite Blood Cells (WBC), Stool: P1No white blood cells seen.Reference Range: None SeenP1 Test performed by: [facility] #: [id number] [address] [place] [address] [id number] [facility] [id number] Director : Hira Cole MD NPI #:Lead Nuclear Medicine Technologist : 03/10/20.0613.XMT.SENT REF ID Date Data Source [id number] 03/06/2020 07:44:[address] [facility] Value Range Interpretation Code Description Data Miladys rce(s) Supporting Document(s) Magnesium [Mass/volume] in Serum or Plasma 1.4 MG/DL 1.7 - 2.[address] [facility] ID Date Data Source [id number] 03/06/2020 07:44:[address] [facility] Value Range Interpretation Code Description Data Miladys rce(s) Supporting Document(s) COMPREHENSIVE METABOLIC PANEL [facility] COMPREHENSIVE METABOLIC PANEL Sodium [Moles/volume] in Serum or Plasma 141 mEq/L 134 - 153 [facility] Potassium [Moles/volume] in Serum or Plasma 3.8 mEq/L 3.6 - 5.0 [facility] Chloride [Moles/volume] in Serum or Plasma 108 mEq/L 98 - [address] [facility] Carbon dioxide, total [Moles/volume] in Serum or Plasma 27 MEQ/L 22 - 30 [facility] Glucose [Mass/volume] in Serum or Plasma 114 MG/DL 65 - [address] [facility] BUN 9 MG/DL 7 - 21 [facility] Creatinine [Mass/volume] in Serum or Plasma 0.6 MG/DL 0.7 - 1.[address] [facility] BUN/CREAT 15 8 - 27 [facility] Protein [Mass/volume] in Serum or Plasma 5.3 G/DL 6.3 - 8.[address] [facility] Albumin [Mass/volume] in Serum or Plasma 3.5 G/DL 3.9 - 5.[address] [facility] Globulin [Mass/volume] in Serum by calculation 1.8 GM/DL 2.4 - 3.[address] [facility] A/G RATIO 1.9 0.8 - 2.0 [facility] Calcium [Mass/volume] in Serum or Plasma 8.6 MG/DL 8.4 - 10.2 [facility] Bilirubin.total [Mass/volume] in Serum or Plasma <0.7 MG/DL 0.2 - 1.3 [facility] Alkaline phosphatase [Enzymatic activity/volume] in Serum or Plasma 80 U/L 38 - 126 [facility] Aspartate aminotransferase [Enzymatic activity/volume] in Se rum or Plasma 8 U/L 5 - 40 [facility] Alanine aminotransferase [Enzymatic activity/volume] in Seru m or Plasma 8 U/L 7 - 56 [facility] Anion gap 3 in Serum or Plasma 6.0 mmol/L 8.0 - 16.[address] [facility] AGE 64 yrs [facility] NON-AA GFR >60 mL/min [facility] ital AFR AMER GFR >60 [facility] Male GFR In terprentation [...] >32 mL/min Normal ID Date Data Source [id number] 03/06/2020 07:33:[address] [facility] Name Value Range Interpretation Code Description Data Miladys rce(s) Supporting Document(s) CBC W/AUTOMATED DIFF [facility] COMPLETE BLOOD COUNT Leukocytes [#/volume] in Blood by Automated count 2.7 10^3/uL 4.2 - [address] [facility] Erythrocytes [#/volume] in Blood by Automated count 2.68 10^6/uL 4. 20 - 5.[address] [facility] Hemoglobin [Mass/volume] in Blood 8.8 g/dL 12.0 - 16.[address] [facility] Hematocrit [Volume Fraction] of Blood by Automated count 26.9 % 3 7.0 - 47.[address] [facility] Erythrocyte mean corpuscular volume [Entitic volume] b y Automated count 100.4 fL 81.0 - 101 [facility] Erythrocyte mean corpuscular hemoglobin [Entitic mass] by Automated count 32.8 pg 27.0 - 34.0 [facility] Erythrocyte mean corpuscular hemoglobin concentration [Mass/volume] by Automated count 32.7 g/dL 31.0 - 36.0 [facility] Erythrocyte distribution width [Ratio] by Automated count 18.1 % 11.5 - 14.[address] [facility] Platelets [#/volume] in Blood by Automated count 96 10^3/uL 150 - [address] [facility] Platelet mean volume [Entitic volume] in Blood by Automated count 10.5 fL 7.4 - 10.[address] [facility] Neutrophils/100 leukocytes in Blood by Automated count 67.5 % 37. 0 - 80.0 [facility] Lymphocytes/100 leukocytes in Blood by Manual count 18.1 % 25.0 - 40.[address] [facility] Monocytes/100 leukocytes in Blood by Automated count 10.0 % 3.0 - 8.[address] [facility] Eosinophils/100 leukocytes in Blood by Automated count 2.2 % 0.0 - 7.0 [facility] Basophils/100 leukocytes in Blood by Automated count 1.5 % 0.0 - 2.5 [facility] %IG 0.7 % 0.0 - 0.0 H [facility] %NRBC 0.0 % 0.0 - 0.[facility] [#/volume] in Blood by Automated count 1.82 10^3/uL 2.00 - 6.[address] [facility] Lymphocytes [#/volume] in Blood by Automated count 0.49 10^3/uL 0.60 - 3.[address] [facility] Monocytes [#/volume] in Blood by Automated count 0.27 10^3/uL 0.00 - 0.90 [facility] Eosinophils [#/volume] in Blood by Automated count 0.06 10^3/uL 0.00 - 0.70 [facility] Basophils [#/volume] in Blood by Automated count 0.04 10^3/uL 0.00 - 0.20 [facility] #IG 0.02 10^3/uL 0.00 - 0.10 [facility] #NRBC 0.00 10^3/uL 0.00 - 0.00 [facility] MANUAL DIFF NOT INDICATED [facility] RBC MORPH NOT INDICATED [facility] spital ID Date Data Source [id number] 03/10/2020 09:30:[address] [facility] Name Value Range Interpretation Code Description Data Miladys rce(s) Supporting Document(s) CULTURE STOOL [facility] _CULTURE STOOL_$$[id number]$$[id number]$$[id number]$$[id number]$$[id number]$$[id number]$$[id number]$$[id number]$$[id number]$$ [id number]$$[id number]$$[id number]$$[id number] DATE/TIME: 03/10/2020 07:06Culture: CULTURE STOOL Status: FinalSalmonella/Shigella Screen: P1No Salmonella or Shigella recovered.NO COLIFORMS ISOLATED Previous result entered on 03/08/2020 12:28 ET Microbiological testing to rule out the presence of possible pathogensis in progress.Campylobacter Culture: P1No Campylobacter species isolated. -- Continued on next page --Patient: GAMA Nobles Order: [id number] Page 2Culture: CULTURE STOOL Status: Final ====E coli Shiga Toxin EIA: P2SznyarerGbzkmpbxg Range: NegativeP1 [facility] performed [facility]: [facility] #: [id number] [address] [place] [address] [address] [id number] [facility] [address]Medical Director : Hira Cole MD NPI #:Lead Nuclear Medicine Technologist : 03/09/20.0723.XMT.SENT REF 03/09/20.1434.XMT.SENT REF 03/10/20.0930.XMT.SENT REF ID Date Data Source [id number] 03/05/2020 10:21:00 AM [facility] Name Value Range Interpretation Code Description Data Miladys rce(s) Supporting Document(s) Lactate [Moles/volume] in Serum or Plasma 1.9 MMOL/L 0.2 - 2.2 [facility] ID Date Data Source [id number] 03/05/2020 09:13:00 [place] [id number] PHONE: [phone] FAX: [phone] Name .................. : GAMA Nobles Acct Number.................. : [id number] ROOM. ................. : [id number] Number ................... : [id number] Stay type ............. : O/P Discharge Date......... ... : Admit Date ......... : 03/04/20 Admit Phys .................... : DANIKA-LAWRENCE Date of ....... : 1955 Family Phys ................... : NON STAFF Phone .................. : [phone] Age ................................ : 64 Film# .................. .:[id number] Sex ................................. : F Unsigned transcriptions are preliminary reports and do not represent a medical or legal document ABDOMEN 1 VIEW 11992 COMPLETE:03/04/20 14:04 ARS 792 Reason(s): n/v/d r/o [...] Dictation Date: Copy for: EMERGENCY DEPT via [facility] [place] Copy for: 710 MED REC Page 1 of 1 Name Value Range Interpretation Code Description Data Miladys rce(s) Supporting Document(s) ID Date Data Source [id number] 03/05/2020 08:08:[address] [facility] Name Value Range Interpretation Code Description Data Miladys rce(s) Supporting Document(s) CBC W/AUTOMATED DIFF [facility] COMPLETE BLOOD COUNT Leukocytes [#/volume] in Blood by Automated count 2.3 10^3/uL 4.2 - [address] [facility] Erythrocytes [#/volume] in Blood by Automated count 2.70 10^6/uL 4. 20 - 5.[address] [facility] Hemoglobin [Mass/volume] in Blood 9.1 g/dL 12.0 - 16.[address] [facility] Hematocrit [Volume Fraction] of Blood by Automated count 27.1 % 3 7.0 - 47.[address] [facility] Erythrocyte mean corpuscular volume [Entitic volume] b y Automated count 100.4 fL 81.0 - 101 [facility] Erythrocyte mean corpuscular hemoglobin [Entitic mass] by Automated count 33.7 pg 27.0 - 34.0 [facility] Erythrocyte mean corpuscular hemoglobin concentration [Mass/volume] by Automated count 33.6 g/dL 31.0 - 36.0 [facility] Erythrocyte distribution width [Ratio] by Automated count 18.0 % 11.5 - 14.[address] [facility] Platelets [#/volume] in Blood by Automated count 92 10^3/uL 150 - [address] [facility] Platelet mean volume [Entitic volume] in Blood by Automated count 10.7 fL 7.4 - 10.[address] [facility] Neutrophils/100 leukocytes in Blood by Automated count 60.3 % 37. 0 - 80.0 [facility] Lymphocytes/100 leukocytes in Blood by Manual count 20.3 % 25.0 - 40.[address] [facility] Monocytes/100 leukocytes in Blood by Automated count 16.0 % 3.0 - 8.[address] [facility] Eosinophils/100 leukocytes in Blood by Automated count 1.3 % 0.0 - 7.0 [facility] Basophils/100 leukocytes in Blood by Automated count 1.7 % 0.0 - 2.5 [facility] %IG 0.4 % 0.0 - 0.0 [facility] 0.[facility] % 0[facility]0 - 0.0 [facility] Neutrophils [#/volume] in Blood by Automated count 1.39 10^3/uL 2.00 - 6.[address] [facility] Lymphocytes [#/volume] in Blood by Automated count 0.47 10^3/uL 0.60 - 3.40 L [facility] Monocytes [#/volume] in Blood by Automated count 0.37 10^3/uL 0.00 - 0.90 [facility] Eosinophils [#/volume] in Blood by Automated count 0.03 10^3/uL 0.00 - 0.70 [facility] Basophils [#/volume] in Blood by Automated count 0.04 10^3/uL 0.00 - 0.20 [facility] #IG 0.01 10^3/uL 0.00 - 0.10 [facility] #NRBC 0.00 10^3/uL 0.00 - 0.00 [facility] MANUAL DIFF SEE BELOW [facility] ital Segmented neutrophils/100 leukocytes in Blood by Manual count 65 % 37 - 80 [facility] %LYMPH 23 % 25 - 40 L [facility] %MONO 11 % 3 - 8 H [facility] %EOS 1 % 0 - 7 [facility] RBC MORPH SEE BELOW [facility] Anisocytosis [Presence] in Blood by Light microscopy 1+ NATASHA L: NONE SEEN A [facility] Macrocytes [Presence] in Blood by Light microscopy 1+ NORMAL: NONE SEEN A [facility] Poikilocytosis [Presence] in Blood by Light microscopy 1+ NOR MAL: NONE SEEN A [facility] { SICKLE CELL (NORMAL: NONE SEEN ) Platelet adequacy [Presence] in Blood by Light microscopy DE CREASED NORMAL: NORMAL A [facility] COMMENT: ID Date Data Source [id number] 03/05/2020 07:47:00 AM [facility] Name Value Range Interpretation Code Description Data Miladys rce(s) Supporting Document(s) Phosphate [Mass/volume] in Serum or Plasma 3.6 MG/DL 2.5 - 4.5 [facility] ID Date Data Source [id number] 03/05/2020 07:47:00 AM [facility] Name Value Range Interpretation Code Description Data Miladys rce(s) Supporting Document(s) Magnesium [Mass/volume] in Serum or Plasma 1.6 MG/DL 1.7 - 2.[address] [facility] ID Date Data Source [id number] 03/05/2020 07:47:00 AM [facility] Name Value Range Interpretation Code Description Data Miladys rce(s) Supporting Document(s) COMPREHENSIVE METABOLIC PANEL [facility] COMPREHENSIVE METABOLIC PANEL Sodium [Moles/volume] in Serum or Plasma 144 mEq/L 134 - 153 [facility] Potassium [Moles/volume] in Serum or Plasma 3.3 mEq/L 3.6 - 5.[address] [facility] Chloride [Moles/volume] in Serum or Plasma 106 mEq/L 98 - 107 [facility] Carbon dioxide, total [Moles/volume] in Serum or Plasma 29 MEQ/L 22 - 30 [facility] Glucose [Mass/volume] in Serum or Plasma 110 MG/DL 65 - 110 [facility] BUN 17 MG[facility]DL 7 - [facility] Creatinine [Mass/volume] in Serum or Plasma 0.8 MG/DL 0.7 - 1.5 [facility] BUN/CREAT 21 8 - [facility] Protein [Mass/volume] in Serum or Plasma 5.3 G/DL 6.3 - 8.[address] [facility] Albumin [Mass/volume] in Serum or Plasma 3.5 G/DL 3.9 - 5.[address] [facility] Globulin [Mass/volume] in Serum by calculation 1.8 GM/DL 2.4 - 3.[address] [facility] A/G RATIO 1.9 0.8 - 2.0 [facility] Calcium [Mass/volume] in Serum or Plasma 8.5 MG/DL 8.4 - 10.2 [facility] Bilirubin.total [Mass/volume] in Serum or Plasma <0.7 MG/DL 0.2 - 1.3 [facility] Alkaline phosphatase [Enzymatic activity/volume] in Serum or Plasma 73 U/L 38 - 126 [facility] Aspartate aminotransferase [Enzymatic activity/volume] in Se rum or Plasma 8 U/L 5 - 40 [facility] Alanine aminotransferase [Enzymatic activity/volume] in Seru m or Plasma 8 U/L 7 - 56 [facility] Anion gap 3 in Serum or Plasma 9.0 mmol/L 8.0 - 16.0 [facility]GE 64 yrs [facility] NON-AA GFR >60 mL/min [facility] ital AFR AMER GFR >60 [facility] Male GFR In terprentation [...] >32 mL/min Normal ID Date Data Source [id number] 03/05/2020 02:48:[address] [facility] Name Value Range Interpretation Code Description Data Miladys rce(s) Supporting Document(s) BASIC METABOLIC PANEL [facility] BASIC METABOLIC PANEL Sodium [Moles/volume] in Serum or Plasma 140 mEq/L 134 - 153 [facility] Potassium [Moles/volume] in Serum or Plasma 3.4 mEq/L 3.6 - 5.[address] [facility] Chloride [Moles/volume] in Serum or Plasma 102 mEq/L 98 - 107 [facility] Carbon dioxide, total [Moles/volume] in Serum or Plasma 28 MEQ/L 22 - 30 [facility] Glucose [Mass/volume] in Serum or Plasma 136 MG/DL 65 - [address] [facility] BUN 20 MG/DL 7 - 21 [facility] Creatinine [Mass/volume] in Serum or Plasma 0.8 MG/DL 0.7 - 1.5 [facility] BUN/CREAT 25 8 - 27 [facility] Calcium [Mass/volume] in Serum or Plasma 8.7 MG/DL 8.4 - 10.2 [facility] Anion gap 3 in Serum or Plasma 10.0 mmol/L 8.0 - 16.0 [facility] AGE 64 y[facility] AFR AMER GFR >60 [facility] NON-AA GFR >60 mL/min [facility] ital Male GFR Inter prentation 20-49 [...] >32 mL/min Normal ID Date Data Source [id number] 03/05/2020 02:41:[address] [facility] Name Value Range Interpretation Code Description Data Miladys rce(s) Supporting Document(s) Magnesium [Mass/volume] in Serum or Plasma 1.7 MG/DL 1.7 - 2.2 [facility] ID Date Data Source [id number] 03/04/2020 08:14:[address] [facility] Name Value Range Interpretation Code Description Data Miladys rce(s) Supporting Document(s) URINALYSIS [facility] sumeet URINALYSIS SOURCE R [facility] COLOR yellow NORMAL: Yellow [facility] CLARITY hazy NORMAL: Clear [facility] Specific gravity of Urine by Test strip 1.020 1.001 - 1.030 [facility] pH 5 5 - 9 [facility] Glucose [Mass/volume] in Urine by Test strip NORM NORMAL: Negat sergey [facility] Bilirubin.total [Presence] in Urine by Test strip NEG NORMAL: Negative [facility] Ketones [Presence] in Urine by Test strip NEG NORMAL: Negative [facility] Protein [Mass/volume] in Urine by Test strip 15 NORMAL: Negat sergey [facility] Nitrite [Presence] in Urine by Test strip NEG NORMAL: Negative [facility] BLOOD NEG NORMAL: Negative [facility] Leukocyte esterase [Presence] in Urine by Test strip NEG NATASHA L: Negative [facility] Urobilinogen [Mass/volume] in Urine by Test strip NOR less lori n 1.0 mg/dL [facility] MICROSCOPIC Not Indicate [facility] ID Date Data Source [id number] 03/04/2020 12:24:[address] [facility] [address] [facility] Emergency Department [address] [place] [address] Phone #: ext- [phone] 03/04/2020 11:58 Patient: JEREMI MALLOY Sex: F : 1955 Age: 64yWEIGHT:83.2 kg (S) HEIGHT:64 inches (S) BMI:31.5ALLERGIES: Amitriptyline, Carisoprodol, Codeine, Doxycycline, FLUOCINOLONE, Gabapentin, Keppra,Metformin , NSAIDs, OCYCODONE, PredniSONE, Quinolones, Spironolactone, TylenolCHIEF COMPLAINT: diarrheaDIAGNOSIS: Diarrhea, O/E - dehydrated, HypomagnesemiaLAB OR DERSOrder Description Priority Entered Acknowledged InitialedCBC w Diff STAT 12:03/04/2020 12:18 Ntaasha Mcgowan MD; Rachid RNCMP STAT 12:03/04/2020 12:18 [...] (NotHospitalized) (Not) (NotResident in [address] [facility] Emergency Department [address] [place] [address] Phone #: ext- [phone] 03/04/2020 11:58 Patient: JEREMI MALLOY Sex: F : 1955 Age: 64yCongregate CareSetting) (NotEmployed inHealthcare Setting)Clostridium Difficile STAT 17:11 03/04/2020 18:28 Natasha Shin MD; Rachid RNDIAGNOSTIC STUDY ORDERSOrder Description Priority Entered Acknowledged InitialedAbdomen Multiview STAT 12:04 03/04/2020 Cancelled: Physician Order 12:54(Oxygen?(No)) Natasha Montero MD; [place], Anna R.N. Reason for Study: Abdominal PainAbdomen [...] IVPB X1 dose: 2 Natasha Montero MD; Rcahid PAULgm (HIGH ALERTMEDICATION, X1)GENERAL ORDERSOrder Description Priority Entered Acknowledged Initialed[Electronically signed by Lisa Mcneil (18:50 03/04/2020)][Electronically signed by Natasha Montero MD (19:40 03/04/2020)][Electronically locked by Lisa Mcneil (18:50 03/04/2020)] Name Value Range Interpretation Code Description Data Miladys rce(s) Supporting Document(s) ID Date Data Source [id number] 03/04/2020 12:24:[address] [facility] [address] [facility] Emergency Department [address] [place] [address] Phone #: ext- [phone] 03/04/2020 11:58 Patient: [...] day, prn [address] [facility] Emergency Department [address] [place] [address] Phone #: ext- [phone] 03/04/2020 11:58 Patient: [...] rce(s) Supporting Document(s) ID Date Data Source [id number] 03/04/2020 12:24:[address] [facility] [address] [facility] Emergency Department [address] [place] [address] Phone #: ext- [phone] 03/04/2020 11:58 Patient: JEREMI MALLOY Sex: F : 1955 Age: 64yWeight: 83.2 kgHeight/Length: 64 inBMI: 31.5ALLERGIES: Quinolones, FLUOCINOLONE, Doxycycline, Tylenol, Spironolactone, PredniSONE, OCYCODONE, Metformin ,Keppra, Gabapentin, Codeine, Carisoprodol, Amitriptyline, NSAIDs Date/Time Medication Administered Medication OrderedStart NS [IV] IV NS 500 mL Bolus : Bolus 58304:45 03/04/2020 Dose: IV Fluids mL (X1)Hank Rashid [...] rce(s) Supporting Document(s) ID Date Data Source [id number] 03/04/2020 12:24:[address] [facility] [address] [facility] Emergency Department [address] [place] [address] Phone #: ext- [phone] 03/04/2020 11:58 Patient: JEREMI MALLOY Sex: F : 1955 Age: 64yDiarrhea.Dehydration.Hypomagnesemia.(Electronically signed by Natasha Montero MD 03/04/2020 19:40) Name Value Range Interpretation Code Description Data Miladys rce(s) Supporting Document(s) ID Date Data Source [id number] 03/04/2020 12:24:[address] [facility] 1 Clinical Report - Nurses [facility] Emergency Department [address] [place] [address] Phone #: ext- [phone] 03/04/2020 11:58 Patient: JEREMI MALLOY Sex: F : 1955 Age: 64yTRIAGE Arrived by EMS. Historian: patient. Acuity: LEVEL 3. Chief Complaint: NAUSEA, VOMITING and DIARRHEA. Alert. No acute distress. Onset. (5 days ago). ( PATIENT IS 3 WEEKS S/P STEM CELL TRANSPLANT AT [facility]. PT HAS LYMPHOMA AND STATES SHE RECEIVED HER OWN STEM CELLS. ONCOLOGIST CONTACTED TODAY WHO ADVISED ER VISIT. PATIENT C/O DIZZINESS AND LIGHTHEADEDNESS STARTING 2 DAYS AGO.). No constipation, abdominal pain or fever. Last oral intake by patient was this morning (0400). Treatment OBJECT ORIENTED DEVELOPER: None. (UNABLE TO KEEP HER MEDICATIONS DOWN). EMS Treatment OBJECT ORIENTED DEVELOPER: See EMS report. SEPSIS SCREEN: SEPSIS SCREEN [...] Oral 100 mg, daily. --12:12 03/04/20 Olga aRmos R.N. Budesonide ER Oral 3 MG, 3x [...] R.N. 2 Clinical Report - Nurses [facility] Emergency Department [address] [place] [address] Phone #: ext- [phone] 03/04/2020 11:58 Patient: [...] Coronavirus. 3 Clinical Report - Nurses [facility] Emergency Department [address] [place] [address] Phone #: ext- [phone] 03/04/2020 11:58 Patient: [...] RN 4 Clinical Report - Nurses [facility] Emergency Department [address] [place] [address] Phone #: ext- [phone] 03/04 11:58 Patient: JEREMI MALLOY Sex: F [...] from radiology by stretcher with mask and food technician. --13: Hank Rashid RN13:15 03/04/20. BP: 127/93. MAP: 104. HR: 101. RR: 16. O2 saturation: 98%. Pain level now: 0/10.--13:15 03/04/20 Hank Rashid RN13:45 03/04/20. BP: 112/81. MAP: 91. HR: 96. RR: 18. O2 saturation: 96%. --15:44 03/04/20 Kev Morel ER Slyp578:15 03/04/20. BP: 128/77. MAP: 94. HR: 95. RR: 17. O2 saturation: 96%. --15:45 03/04/20 Kev Morel ER Kccl250:45 03/04/20. BP: 136/84. MAP: 101. HR: 98. RR: 17. O2 saturation: 95%. --15:45 03/04/20 [facility] Juww722:15 03/04/20. BP: 118/74. MAP: 88. HR: 99. RR: 17. O2 saturation: 95%. --15:46 03/04/20 [facility] Kspr331:44 03/04/2020 POTASSIUM CHLORIDE LIQUID PO PO Oral [...] RN 5 Clinical Report - Nurses [facility] Emergency Department [address] [place] [address] Phone #: ext- [phone] 03/04/2020 11:58 Patient: [...] rce(s) Supporting Document(s) ID Date Data Source [id number] 03/04/2020 12:24:[address] [facility] 1 Clinical Report - Physicians/Mid Levels [facility] Emergency Department [address] [place] [address] Phone #: ext- [phone] 03/04/2020 11:58 Patient: [...] 3 WEEKS S/P STEM CELL TRANSPLANT AT [facility]. PT HAS LYMPHOMA AND STATES [...] 2 Clinical Report - Physicians/Mid Levels [facility] Emergency Department [address] [place] [address] Phone #: ext- [phone] 03/04/2020 11:58 Patient: [...] 010. 3 Clinical Report - Physicians/Mid Levels [facility] Emergency Department [address] [place] [address] Phone #: ext- [phone] 03/04/2020 11:58 Patient: [...] EKGLaboratory Tests:CORONAVIRUS COVID-19: (BERNADETTE: 03/04/2020 16:37) ( Oncopeptidescvd 03/04/2020 16:53) CanceledFirst test? Y Employed in [...] 4 Clinical Report - Physicians/Mid Levels [facility] Emergency Department [address] [place] [address] Phone #: ext- [phone] 03/04/2020 11:58 ------ [...] Male GFR Interprentation 20-49 yrs >60 mL/min Barhzg26-34 yrs >56 mL/min Normal 60-69 yrs >49 mL/min Normal 70-79yrs> 42 mL/min Normal 80 and above >35 mL/min Normal Female GFRInterpretation 20-39 yrs >60 mL/min Normal 40-49 yrs >58 mL/minNormal 50-59 yrs >51 mL/min Normal 60-69 yrs >45 mL/min Normal 5 Clinical Report - Physicians/Mid Levels [facility] Emergency Department [address] [place] [address] Phone #: ext- [phone] 03/04/2020 11:58 Patient: [...] autologous stem celltransfusion done in january at [facility]. She has done well. pt [...] called and spoke to her doctor at [facility]. She agreed with care plan.I called and spoke to Kavya. she agreed to admit. pt comfortable with the plan to admit here [facility]. Patient/family counseled. Disposition: Admitted to the Acute Inpatient Unit, Monitored. Condition: good and stable.CLINICAL IMPRESSION Diarrhea. Dehydration. Hypomagnesemia. 6 Clinical Report - Physicians/Mid Levels [facility] Emergency Department [address] [place] [address] Phone #: ext- [phone] 03/04/2020 11:58 Patient: JEREMI MALLOY Sex: F : 1955 Age: 64y(Electronically signed by Natasha Montero MD 03/04/2020 19:40) Name Value Range Interpretation Code Description Data Miladys rce(s) Supporting Document(s) ID Date Data Source [id number] 03/04/2020 12:24:00 PM [facility] Addenda for JEREMI MALLOY VisitID: [id number] Date: 17:32MED REC REQUEST FAXED TO [employer] WITH PATIENTS MED LISTS ANDT-SYSTEMS OVERVIEW @ [id number](Electronically signed by Moreno Pineda - 03/04/2020 17:32)03/04/2020 17:54OVERVIEW FAXED TO LONI AT 3072. LONI MALDOANDO MADE AWARE(Electronically signed by Moreno Pineda - 03/04/2020 17:54) Name Value Range Interpretation Code Description Data Miladys rce(s) Supporting Document(s) ID Date Data Source [id number] 03/04/2020 04:52:00 PM EST [facility] Name Value Range Interpretation Code Description Data Miladys rce(s) Supporting Document(s) COVID-19 [facility] This lab was ordered by [facility] and [facility] ID Date Data Source [id number] 03/04/2020 04:52:00 PM EST [facility] Name Value Range Interpretation Code Description Data Miladys rce(s) Supporting Document(s) COVID-19 [facility] and reported by [facility]. ID Date Data Source [id number] 03/04/2020 05:26:00 PM [facility] Name Value Range Interpretation Code Description Data Miladys rce(s) Supporting Document(s) COVID-19 NOT DETECTED [facility] COVID-19 REENTER NOT DETECTED [facility] { PROCEDURAL CONTROL VALID KIT LOT [...] PATIENT MANAGEMENT DECISIONS. ID Date Data Source [id number] 03/04/2020 04:33:[address] [facility] Name Value Range Interpretation Code Description Data Miladys rce(s) Supporting Document(s) Magnesium [Mass/volume] in Serum or Plasma 1.3 MG/DL 1.7 - 2.[address] [facility] ID Date Data Source [id number] 03/04/2020 01:54:00 PM [facility] Name Value Range Interpretation Code Description Data Miladys rce(s) Supporting Document(s) Phosphate [Mass/volume] in Serum or Plasma 4.0 MG/DL 2.5 - 4.5 [facility] ID Date Data Source [id number] 03/04/2020 01:20:[address] [facility] Name Value Range Interpretation Code Description Data Miladys rce(s) Supporting Document(s) CBC W/AUTOMATED DIFF [facility] COMPLETE BLOOD COUNT Leukocytes [#/volume] in Blood by Automated count 4.4 10^3/uL 4.2 - [address] [facility] Erythrocytes [#/volume] in Blood by Automated count 3.27 10^6/uL 4. 20 - 5.[address] [facility] Hemoglobin [Mass/volume] in Blood 11.1 g/dL 12.0 - 16.[address] [facility] Hematocrit [Volume Fraction] of Blood by Automated count 32.0 % 3 7.0 - 47.[address] [facility] Erythrocyte mean corpuscular volume [Entitic volume] by Auto mated count 97.9 fL 81.0 - 101 [facility] Erythrocyte mean corpuscular hemoglobin [Entitic mass] by Automated count 33.9 pg 27.0 - 34.0 [facility] Erythrocyte mean corpuscular hemoglobin concentration [Mass/volume] by Automated count 34.7 g/dL 31.0 - 36.0 [facility] Erythrocyte distribution width [Ratio] by Automated count 18.0 % 11.5 - 14.[address] [facility] Platelets [#/volume] in Blood by Automated count 111 10^3/uL 150 - [address] [facility] Platelet mean volume [Entitic volume] in Blood by Automated count 10.5 fL 7.4 - 10.[address] [facility] Neutrophils/100 leukocytes in Blood by Automated count 74.3 % 37. 0 - 80.0 [facility] Lymphocytes/100 leukocytes in Blood by Manual count 12.6 % 25.0 - 40.[address] [facility] Monocytes/100 leukocytes in Blood by Automated count 11.0 % 3.0 - 8.[address] [facility] Eosinophils/100 leukocytes in Blood by Automated count 0.7 % 0.0 - 7.0 [facility] Basophils/100 leukocytes in Blood by Automated count 0.7 % 0.0 - 2.5 [facility] %IG 0.7 % 0.0 - [facility] % 0.0 - 0.0 [facility] Neutrophils [#/volume] in Blood by Automated count 3.26 10^3/uL 2.00 - 6.90 [facility] Lymphocytes [#/volume] in Blood by Automated count 0.55 10^3/uL 0.60 - 3.[address] [facility] Monocytes [#/volume] in Blood by Automated count 0.48 10^3/uL 0.00 - 0.90 [facility] Eosinophils [#/volume] in Blood by Automated count 0.03 10^3/uL 0.00 - 0.70 [facility] Basophils [#/volume] in Blood by Automated count 0.03 10^3/uL 0.00 - 0.20 [facility] #IG 0.03 10^3/uL 0.00 - 0.10 [facility] #NRBC 0.00 10^3/uL 0.00 - 0.00 [facility] ospital MANUAL DIFF NOT INDICATED [facility] RBC MORPH NOT INDICATED [facility] spital ID Date Data Source [id number] 03/04/2020 01:17:00 PM [facility] Name Value Range Interpretation Code Description Data Miladys rce(s) Supporting Document(s) Lipase [Enzymatic activity/volume] in Serum or Plasma 13 U/L 13 - 60 [facility] ID Date Data Source [id number] 03/04/2020 01:17:00 PM [facility] Name Value Range Interpretation Code Description Data Miladys rce(s) Supporting Document(s) Lactate dehydrogenase [Enzymatic activity/volume] in Serum o r Plasma 304 U/L 135 - [address] [facility] ID Date Data Source [id number] 03/04/2020 01:17:00 PM [facility] Name Value Range Interpretation Code Description Data Miladys rce(s) Supporting Document(s) COMPREHENSIVE METABOLIC PANEL [facility] COMPREHENSIVE METABOLIC PANEL Sodium [Moles/volume] in Serum or Plasma 142 mEq/L 134 - 153 [facility] Potassium [Moles/volume] in Serum or Plasma 3.0 mEq/L 3.6 - 5.[address] [facility] Chloride [Moles/volume] in Serum or Plasma 100 mEq/L 98 - 107 [facility] Carbon dioxide, total [Moles/volume] in Serum or Plasma 31 MEQ/L 22 - [address] [facility] Glucose [Mass/volume] in Serum or Plasma 125 MG/DL 65 - [address] [facility] BUN 20 MG/DL 7 - 21 [facility] Creatinine [Mass/volume] in Serum or Plasma 0.9 MG/DL 0.7 - 1.5 [facility] BUN/CREAT 22 8 - 27 [facility] Protein [Mass/volume] in Serum or Plasma 6.3 G/DL 6.3 - 8.2 [facility] Albumin [Mass/volume] in Serum or Plasma 4.0 G/DL 3.9 - 5.0 [facility] Globulin [Mass/volume] in Serum by calculation 2.3 GM/DL 2.4 - 3.[address] [facility] A/G RATIO 1.7 0.8 - 2.0 [facility] Calcium [Mass/volume] in Serum or Plasma 9.1 MG/DL 8.4 - 10.2 [facility] Bilirubin.total [Mass/volume] in Serum or Plasma 0.8 MG/DL 0.2 - 1.3 [facility] Alkaline phosphatase [Enzymatic activity/volume] in Serum or Plasma 87 U/L 38 - 126 [facility] Aspartate aminotransferase [Enzymatic activity/volume] in Se rum or Plasma 9 U/L 5 - 40 [facility] Alanine aminotransferase [Enzymatic activity/volume] in Seru m or Plasma 10 U/L 7 - 56 [facility] Anion gap 3 in Serum or Plasma 11.0 mmol/L 8.0 - 16.0 [facility] AGE 64 yrs [facility] NON-AA GFR >60 mL/min [facility] ital AFR AMER GFR >60 [facility] Male GFR In terprentation [...] >32 mL/min Normal ID Date Data Source [id number] 03/04/2020 01:04:[address] [facility] Name Value Range Interpretation Code Description Data Miladys rce(s) Supporting Document(s) Lactate [Moles/volume] in Serum or Plasma 3.4 MMOL/L 0.2 - 2.[address] [facility] ID Date Data Source [id number] 01/29/2020 12:00:00 AM EST [facility] Name Value Range Interpretation Code Description Data Miladys rce(s) Supporting Document(s) SARS coronavirus 2 RNA panel N [facility] This lab was ordered by [facility] C1 TEST DELON TER and reported by [facility]. ID Date Data Source URINE CULTURE 12/23/2019 08:07:27 AM EDT eCW ([facility]) Name Value Range Interpretation Code Description Data Miladys rce(s) Supporting Document(s) URINE CULTURE eCW1 ([facility]) ID Date Data Source UA URINALYSIS 12/23/2019 08:07:21 AM EDT [facility] ([facility]) Name Value Range Interpretation Code Description Data Miladys rce(s) Supporting Document(s) UA URINALYSIS eCW1 ([facility]) ID Date Data Source [id number] 12/23/2019 08:07:15 AM EDT eC ([facility]) Name Value Range Interpretation Code Description Data Miladys rce(s) Supporting Document(s) Hemoglobin A1c/Hemoglobin.total in Blood 6.1 HEMOGLOBIN A1c eC ([facility]) ID Date Data Source [id number] 10/31/2019 05:05:00 PM EDT [facility] Name Value Range Interpretation Code Description Data Miladys rce(s) Supporting Document(s) Free [place] Lt Chains,S 13.4 mg/L 3.3-19.4 [facility] Free Lambda Lt Chains,S 2.0 mg/L 5.7-26.3 Below low normal [facility] [place]/Lambda Ratio,S 6.70 0.26-1.65 Above high normal L [facility] ID Date Data Source [id number] 10/14/2019 12:00:00 AM EDT [facility] Name Value Range Interpretation Code Description Data Miladys rce(s) Supporting Document(s) SARS coronavirus 2 RNA panel N [facility] This lab was ordered by [facility] and reported by [facility]. ID Date Data Source [id number] 10/04/2019 02:21:00 PM EDT [facility] ([facility] ) Name Value Range Interpretation Code Description Data Miladys rce(s) Supporting Document(s) Surgical pathology study Laboratory test result [facility] ([facility] ) FINAL DIAGNOSIS A - Gastric biopsy: [...] M.D. 11/12/2019 0847 ID Date Data Source [id number] 09/29/2019 09:20:00 AM EDT [facility] Name Value Range Interpretation Code Description Data Miladys rce(s) Supporting Document(s) SARS coronavirus 2 RNA [facility] This lab was ordered by [facility] and reported by [facility]. ID Date Data Source [id number] 09/21/2019 11:15:00 AM EDT [facility] Name Value Range Interpretation Code Description Data Miladys rce(s) Supporting Document(s) SARS coronavirus 2 RNA [facility] This lab was ordered by [facility] and reported by [facility]. ID Date Data Source [id number] 07/18/2019 09:44:52 AM EDT [facility] Name Value Range Interpretation Code Description Data Miladys rce(s) Supporting Document(s) Progress Note 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+LKMgi0mXp [file] ICAgICAgICAgICAgICAgICAgICAgICAgICAgICAgIC AgICAgICAgICAgICAgICAgICAgICAgICAgICAgICAgICAgICAgICAgICAgDQogICAgICAgICAgICAgIC AgICAgICAgICAgICAgICAgICAgICAgICAgICAgICAgICAgICAgICAgICAgICAgICAgICAgICAgICAgIC AgICAgICAgICAgICAgICAgICAgICAgICAgDQogICAg ICAgICAgICAgICAgICAgICAgICAgICAgICAgICAgICAgICAgICAgICAgICAgICAgICAgICAgICAgICAg ICAgICAgICAgICAgICAgICAgICAgICAgICAgICAgICAgICAgDQogICAgICAgICAgICAgICAgICAgICAg ICAgICAgICAgICAgICAgICAgICAgICAgICAgICAgIC AgICAgICAgICAgICAgICAgICAgICAgICAgICAgICAgICAgICAgICAgICAgICAgDQogICAgICAgICAgIC AgICAgICAgICAgICAgICAgICAgICAgICAgICAgICAgICAgICAgICAgICAgICAgICAgICAgICAgICAgIC AgICAgICAgICAgICAgICAgICAgICAgICAgICAgDQog ICAgICAgICAgICAgICAgICAgICAgICAgICAgICAgICAgICAgICAgICAgICAgICAgICAgICAgICAgICAg ICAgICAgICAgICAgICAgICAgICAgICAgICAgICAgICAgICAgICAgDQogICAgICAgICAgICAgICAgICAg ICAgICAgICAgICAgICAgICAgICAgICAgICAgICAgIC AgICAgICAgICAgICAgICAgICAgICAgICAgICAgICAgICAgICAgICAgICAgICAgICAgDQogICAgICAgIC AgICAgICAgICAgICAgICAgICAgICAgICAgICAgICAgICAgICAgICAgICAgICAgICAgICAgICAgICAgIC AgICAgICAgICAgICAgICAgICAgICAgICAgICAgICAg DQogICAgICAgICAgICAgICAgICAgICAgICAgICAgICAgICAgICAgICAgICAgICAgICAgICAgICAgICAg ICAgICAgICAgICAgICAgICAgICAgICAgICAgICAgICAgICAgICAgICAgDQogICAgICAgICAgICAgICAg ICAgICAgICAgICAgICAgICAgICAgICAgICAgICAgIC WcATShKLDzCZSxILKjAGHqUBXlVBLrOACkQCCfQGAoKRYhYWPvQWNtEBMhQCOyOVOeCXJeAKd1Z4mcGQ QmVZIrFY4oQNq7Cs5+UWlLCeKdEXW7thTbaA7WCF9pc1TtNFlzTFHxr0GlBIe1SW4CYUSlLEcrGV3SNA hyei8WNPSfKVBudXKTe6pvZhHfSRM4YIJmVjiuXY8C QAWwA2dpkkElLTSqXVQAYTfiUECBLOdyPZMGCFUbVNCmMfXgQaIrAPQiRWWsTMKTTJO2BCFjDqNlZKXc IYVmHvAsAEDOIKQcFZSwJtIhEZGjXMWkWjjhJAILGH1JVtToH2OgdD70RKQfTGc+Pz0HQD2pe0NbFCm0 XNMwNC5wmd5WFDmPXaLmZ2BbcmL7DRH8EYOoPc2WHV ShFKKyoEO6LVVhMGHPFiScH9NamY98JMFNNw9+JArnfjOhFreJZbV2PGVuu7HiIDr4EC1KBQBqJHh4uB UjXMHmO6Cgw2DtHh92RLUzRlzrK1hvxyqvypJvIKCTAW4ymSbaLH7WZDB5REGgCdhnEhQkWKBqWgk9TU DRKIuXSaZtG3Elw2VvCoV2RVFtIiYbQVkhJQSmSrK9 DJ02wHjeQX8XDOPyQTAiIR70FDK0HYVpVf1YWz6JXjJeTK3pxi6NLXQgQWElFceYLkh7UVveAO3WmOHa M1LvsXFry8gLKuJzE0TXKMLbMBBfBq7SKRTtFhNpTIPoGJuxVW5iORQdSIHHnSuusfK4DM7QNS7okqBr JN2MCjXkHu8pKo7YDsOfG3UwL0AiEPOtMOQBOBnnLN 7QKWedPN1yHZ0Gt6CPcGEooC1iiq8DYQXfYRCiRpqibk1QWrusS2U9iKytVJNgGDYzPZNPIFqzPT8MVU YoXWS1MFL4HuUsLRHWWyQsW72hQN8OE5Yig84jUiV7GEVnWwEqJUicIY97gEdmydYycCHpdMzlQR7CUa 4+DQplbmRvYmoNCnhyZWYNCjAgNDcNCjAwMDAwMDAw UZVyWwN0QcTkIl1UGBVyNMLzSJFkAaOjDKOwQIIqOYojYDYyPTE4MvUcEEVqYNVtRU0TPoMxEVIfXZG9 RUGxCCHyLSCull1OYRJeJCKjMDF3ReYkDEHqDNMuZWzqIBVoULE4QWZ7OWLdGLIzYZ3YOqFhYYPzPWIf BjirEUTrODJuuw2HOWDuNYOwZwT3JhQvOBMxCDWdVK ggOWJgMUO4VUH1OYAoRZKqFX9BOqUnXGYvWIW1KVXzCRHdRDNhig2OJOImVEBkVBybOZZvPSZlYCXhIU uyFKFrELBaBJyfIQZwETIpIT9PYwApQPNmRUEbJStnKHYwIGRdtl1ISRKfWDClNMsgQvFwLSEwPPEmJU xoPRLxINN5LZFwLUHwXFTgQE3AXpAjSHArNAc6LHso TYVqCRLmcb8SLANhHGNoJSmgCSMiQJGtZMXgPWslSAUcOVBnHRIeOGLuXNYcDA4MQqKlZTIgKiYoXrsy RCClIMXspn8TSTKuRURjQnB4TKCoOCAdUXJsRRdxTCFwIYHmQsNsPPMvSVNcEV0SQgMpIQWtNfVaLPFa TCPyMHHzdv7XAASsILNdYbJwADTmKMQwUGXkOEfrVP XfEWM5IkS2YOPpQMJcOR9OGfMeQDPuIha2TvGqDJXdFZIgoq9VNWAjHXCeQnP9VESlPIOmFPIxAMddLT MpWLJuEUczZBRoWFGgZF9ITtUzRDLaCoKrWrTpYFPiSOPrqr4SNARbENWgGqScATEvYBUlBGSzUMfpHY JjPRZ7Tnx0HRPvAIJgNC4LYfNhJPRcNcP7KKExCWRg LKKvge4ZYRHmJJRgKME6QUWqZXPgUTQyKAxtXOGgJKB0TiH8GZIaGFMbYJ9AHgLfLRSlNiX1BOFwVRDr RZWdsk5QYKCsWAIzEtYmGAQhZICmCXToTDezYAInWEF3IBZ0OZMtUJHxUU4BCnWrHLBeSVl1VESkYTGn CVUekd0FCIHdHIB8Nmv7SnEyZQTiYQAdYAigELNqQK T3SaUrMHVmPWXuOJ6VWuTsELKrEXwrQEguMKBwKILhlg2IQKIvWIP1ZPQeVqJcMCNaRVKyUPjcQVYxRZ E3LGLgVLJyOKDxQF1ZAfBbWDUiQIv8OXhyZOLfSJFjba5FBUIlIXM1BPXoKMUfPJRnARNlENurKQLtFM WoTrB6BVJwLWRbDN1TVwNiQSAzLXS9KERfKSOzFSVs cf1QYSCjLLQ2JOi3EoFrMHGwHIHqXIi1prSzfFOqEIf1SU1VS3FiooRpHZqYFj0Oj155FSA5ABOkTh1Y H9fwUg2sHWIyLBBFQy1FPWh4HYWhCcS2QVM9JIMwFyQ6HoDjBLKnIsOjRNH9GVGyFFQ+HLa2A7J4Fdxn Wvz7IUE7QOZrJaKzIwX9ZsUjRry1NuCuOg9nOOEYYq0+WKkybSXybQcoDDEIYeNdYIe3TUylGXMYWg5P ID Date Data Source Immature Platelet Fraction 05/24/2019 12:00:00 AM EDT eCW1 ( [facility]) Name Value Range Interpretation Code Description Data Miladys rce(s) Supporting Document(s) 11.9 0.0-9.59 IMMATURE PLATELET FRACTIO N % eCW1 ([facility]) ID Date Data Source Comprehensive Metabolic Profile (CMP) 05/24/2019 12:00:00 AM EDT eCW1 ([facility]) Name Value Range Interpretation Code Description Data Miladys rce(s) Supporting Document(s) 15 7-18 BLOOD UREA NITROGEN eCW1 ([facility]) 68 70-100 GLUCOSE, FASTING eCW1 ([facility]) 0.96 0.55-1.30 CREATININE FOR GFR eCW1 ([facility]) 3.7 3.5-5.1 POTASSIUM SERUM eCW1 ([facility]) > 60.0 >45 GLOMERULAR FILTRATION RATE eCW 1 ([facility]) 142 136-145 SODIUM LEVEL eCW1 ([facility]) 8.7 8.8-10.2 CALCIUM LEVEL eCW1 ([facility]) 101 98-107 CHLORIDE LEVEL eCW1 ([facility]) 35 21-32 CARBON DIOXIDE LEVEL eCW1 ([facility]) 8 7-37 AST/SGOT eCW1 ([facility]) 8.6 6.4-8.2 TOTAL PROTEIN eCW1 ([facility]) 0.5 0.2-1.0 BILIRUBIN,TOTAL eCW1 ([facility]) 33 12-78 ALT/SGPT eCW1 ([facility]) 87 45-117 ALKALINE PHOSPHATASE eCW1 ([facility]) 3.4 3.2-5.2 ALBUMIN eCW1 ([facility]) 0.65 1.00-1.93 ALBUMIN/GLOBULIN RATIO eCW1 ([facility]) ID Date Data Source CBC with Differential 05/24/2019 12:00:00 AM EDT eCW1 ([facility]) Name Value Range Interpretation Code Description Data Miladys rce(s) Supporting Document(s) 5.5 4.0-10.0 WHITE BLOOD COUNT eCW1 ([facility]) 11.6 12.0-15.5 HEMOGLOBIN eCW1 ([facility]) 35.3 36.0-47.0 HEMATOCRIT eCW1 ([facility]) 3.47 4.00-5.40 RED BLOOD COUNT eCW1 ([facility]) 33.4 27.0-33.0 MEAN CORPUSCULAR HEMOGLOB IN eCW1 ([facility]) 101.7 80.0-96.0 MEAN CORPUSCULAR VOLUME e CW1 ([facility]) 15.6 11.5-14.5 RED CELL DISTRIBUTION WID TH eCW1 ([facility]) 32.9 32.0-36.5 MEAN CORPUSCULAR HGB CONC eCW1 ([facility]) 91 150-450 PLATELET COUNT, AUTOMATED eCW1 ([facility]) 71.0 36.0-66.0 NEUTROPHILS % eCW1 ([facility]) 21.0 24.0-44.0 LYMPH % eCW1 ([facility]) 5.7 0.0-5.0 MONO % eCW1 ([facility]) 1.3 0.0-3.0 EOS % eCW1 ([facility]) 0.5 0.0-1.0 BASO % eCW1 ([facility]) 3.9 1.5-8.5 NEUTROPHILS # eCW1 ([facility]) 1.2 1.5-5.0 LYMPH # eCW1 ([facility]) 0.3 0.0-0.8 MONO # eCW1 ([facility]) 0.1 0.0-0.5 EOS # eCW1 ([facility]) 0.0 0.0-0.2 BASO # eCW1 ([facility]) ID Date Data Source [id number] 04/24/2019 05:53:30 PM [facility] Name Value Range Interpretation Code Description Data Miladys rce(s) Supporting Document(s) Progress Note [facility] EPYSEu7vSjDJBuAv22/UYXaiHKZko3NuPYfyOIa5RHoaHQKnR0VsEKP3sG3vJGH4LToFIuAoFfAtGmBx lbm SwFxlALbIzVRPpUtuPNmAyRBthVhwusYGhDD3HwAP2FDUxO90yPVJiYJYtE4BeXFJ5IjS+Pz6HEWNbeW IvXH2KYhyF2U9jw7pGKI6x0U4qFUWGm4ccrne5ycLLzKfMtWusxcLz+8MejNZOdqqYuS8663csWnnnrC 9zcEHoUU6uAD9Spdug+8yQQhT/fhPbgWdZlpj/t/gz gKU1bVa//RWZ4zcSzU7MI8vN8FJpcVEKLHO67colN/MxF4NZWTGCP93+qnMZnY3q1xkRN9q0akJ7lUk6 T49Yj53eZmCR5tvxenHu0BN08+phn0S4E+ScLh28amypfjSXqyVqGzEo9LtmJ9EFjHKchahKHmM0w2Nc 41YwVbi53iZtzgkRppwxyxV4yhKbaOiMg9y4eBjcl8 FfaZOIQsxo9PWljwDa7Vz1YcDj9GjVA7JjdZSGVQTdus0lclaztt+G6n9X6UAJMTUTdKmE+cDlkR10Iu d64M+AM7JeGMI5Td1yHaDpolSemyA7l27FGrhjuBacN3tcSCFtzMvp9mfXFksDLruBkdZb++fvzDFTgi 1StFtrf6UFmcA0dn1t71iDm+cFKyq91+ulycSgeZbg B7zP1w0g0Ex7aFfJXHjVnU02jiI9P9c13RC4AViOjuExeEB/0+E/d7FMMtDtKyuxPwD8vynMzp6vceSp LbX6i7E/QexddIVvHIMf+WrW7AATeIedmGtybwbsHlC9RzShCMro1u1IJr4TrQXInn5HFWAXvXFdDiPu cSVqDMYjg+ZnHH1ovVF5l11quRiSwyhpKmtoP9w/ mKIhylPz85zVy0UH1S0g+NUKyXTzhWkM/CP9KGkdXAKyQy4fRzAoZPsg6qd5VS6rRrDJbdA6F4YXSE7H 95BR2gZj+uuBIKoU3G6qqlezH/btOOrbBgyZtDlVdXL8bg2WpP5GzMekRuwzxuhesxn4p52A7VZ0aXJg Pj3nUfUG1IMmpXQNiQMPxiBXEEa3X59wO/OvF759Xv s1a8hFt0VkqbwERTMhnH+wd18A/IWBalwozxnh7P9yU5nPzhrsUXUx0C5B686KbJR+uuDBgSMaYX7/Jh bCZzuZDKU5h6RUxM2RRGLK+cdM6IZSvrvIwkzVI8oiZAyQWmmhjOseASfVH+FzOdATAOotBC9Gu743SJ kVZSYc6dKltSgLW+ZehMFUrPjvuJrcH3iqNtrU1U1L dTLrpyoXy16WqBBzvDcDlEDYabVCSTqOuiBkRDKCReoWgvFcpH4ur5r6GEY33MWMHB0mLfBU07nNPFSc K33ii8jAacwpKpduxg5wlkn76T03PFzUlBIliaHGCK6DMeQtBdD9CYaXn2uKn+Ob1BqYCIqZEUpQeoKT dhDaH7l65o8nS5883N57I96wxv2UVDYf2Zp6HdciRh [file] MDAwMDAxNyAwMDAwMCBuDQowMDAwMDcyODAzIDAwMD UoEX7EYwVdBAEgKuZ2IxxePPTsAOWpne5TTSHgGVFmWOL1BqQyDOFfCJFxMOfrKLKdQQSrTgK4KASeXB AfDP9MNfTbIDRtTMS0FpLbWHYiGHMysx4NMSEeNBFtYoM2KOPaIEHcAKKjDDnnGEKbJIW3LrN9QUOuTO JsVF2JAoMzCTAxWNScCoIsXDFqZZLipb3GWXQbFTQb VMX2GJGbWKVwTMLeIDmmPDGjCFM5EELkEDPiNXVaBB0QQfPpOBJdSBZ1SBigPXWqBNYtja2TEXQzDVMp TgD9RIRzWBGiMSTkNCifLAUwZUA6CYyiWWSaXAZmKT2MMfViYBKaGXe4QLtrSXDxNDVfpo4MDJKjKYRj VVW0JbYqKYYoRKBuKAyaZKPcISDaODR4QWSwEGTnQW 1CJeYiUTZcLlD2GeGpAVAnTGRfgr4ZWALjOURuLFgqZJIqSQZbXNHlAChpKREyALS5BFS5AYGbSIOnFV 9AQcAnAHIlCcm0PUmxXHIeKPSgsf1OOMFmZOSrLmk3YwUqOBQpPPJuWRpxEVSfNMZiArQbNLMsSRJiCI 8UZrCuLZAdMeI1UkfhBRHoGXUfwq9LWFGbTOUuExud GeCwPYQgYNFgVOoyIBTtAEN5MRLjFJIeVJXiNC2XTqXpODPjHeQ2EldcSPAkZGLnhd3FSBEvZSDvZri8 RTRsJMLwTFGjQRmpCPUiWBP2GeVaZRJlKYLvIF5FLnNrIVNaQzt4WuwiFTRmNKPvks8BPCMmONA8OJl6 IVKxQMHtEFAeOUvxWIXdNMUvRXa6TTFaKEQuWG8PFh RsYNZjHUFyWNorAERpHTMftf6OEWMdCAB3TJVhJRJkMQKcKABtRCjkLQWbODU3GQs2HOAmTHXkYW6ULt SsUONhTEidULZuSXJyGEUzog9VRXOuPLZ3TNClVqQmUPFpJGDfRDddVNDnMQU7JcPzHJWmQHZmDE3HQz XiVCCxIRC1AiDpJMPgTRKupa3LYWYnAUI0Mnv0PwAs UNNqCBBaTRwqARVyLWP4HUlsHUXaKTErDI3XUyQgBGBoXRZ3JGoxENFzFLWzha4GNQUgGKU8HaVjQpDn CMOiUKIhTPviFRFuXNC6EHRjGSNcBSEhNK8EHkMgUJKdYTciYLCxTUGxYWKbgy0EGWDbHWG5BmT7XKSh DNDxBOTkALsiHXYvBLP0BzChDSGhFLKhZG2BKfFxBO TeVMk0QxVrHFKaVCJgnx9IDWUlVUI7NAgnUnUaKSDpWPKfHSbpUXVeZKD0SFIkKUXiIISqAX3LAaEyHO OiJeL6KLSoMMGuQPYolk1RPRLtIGF9AMb9ItPkPVFaQURhPSzfOLIkXVufMKo2FOHuVQJjHQ7HMhVwAC EeUwVhUdLyELPsYKKfxb9NHUFgJBN4OTJ3RDElTYKk GNHjTPatPNPvYOjzHKE6MUKnUPBfRB6XLhQfPBDtEuT8ZKNpJXPyUBAgii7XGFTgYPF5Ddc3CSCuCOUa NLItAIjlKYEeRTyqXCw2MZXcAOAdCG4WPoZlHMSvAkS2CyvdCCBcSFLgod0YXOYfJVX7DYejADIsMAOd QGJcOYvoPJQcAAy7HQc0YFBiODGpYD0ITgGaGQmcTZ QFXsr8VDugT8k5NYB0Hr3HC8Tfc9UhVvWuCGEFDWyvBR2jxnCxQGUnMc6TA9iXAhjxZJZoGfXbN4DjEA GaQkmvDuZvCinhELWsQJRiWROuGM7oYSH5SIAjHpMqGUUkLTN1GZFtWIEzIBK2L1DcNfNeYJF7IsTpCB 1JSv4BBoI8XLM4yPGwKm3IRmQsPuxQXwGsIO4FQKr= ID Date Data Source [id number] 03/21/2019 03:21:01 PM [facility] Name Value Range Interpretation Code Description Data Miladys rce(s) Supporting Document(s) Flow cytometry study [facility] ID Date Data Source [id number] 03/22/2019 05:49:00 PM [facility] Hematopathology Report See Addendum Rosy wName: JEREMI MALLOY MMRN: [id number] Number: [id number] Date: 03/20/2019 00:00Received Date: 03/21/2019 13:27Physician(s): MELIZA LANDRUM MD, YILIN MDCopy To[facility]) ReceivedA: Bone Marrow, Flow Cytometry, received [...] Signed Out03/22/2019 InterpretationPERIPHERAL BLOOD: CBC performed at [facility] on 03/20/2019 WBC 5.8 K/uLRBC *3.82 M/uLHgb 12.5 g/dLHct 37.8 %MCV *99.0 fLMCH 32.7 pgMCHC 33.1 g/dLRDW 13.8 %Platelets *133 K/ulDifferential Count (100 cells): 2 % N. Band Forms55 % Euagdyslole69 % Wyknefsbbzw90 % Large Granular Lymphocytes 4 % Monocytes-------100 % A peripheral blood film is reviewed. Rouleaux formation is increased.BONE MARROW ASPIRATE:Differential Count (100 cells):40 % Erythroid Precursors 1 % Blasts 3 % Promyelocytes 5 % N. Fuomsopebb87 % N. Metamyelocytes and Band Forms11 % Neutrophils 3 % Cvenklqhdlg40 % Lymphocytes 1 % Monocytes 7 % Plasma Cells--------100 % Morphology: A single hypercellular particle is seen. No dysplasia ispresent. Megakaryocytes are normal. Some plasma cells appear immature withsmall nucleoli. Lymphoid Panel: [place] [id number] following markers were assayed: CD45 (gate), CD2, CD3, CD4, CD5, CD7,CD8, CD10, CD19, CD20, CD33, CD34, CD38, CD56, CD57, CD64, CD117, CD123,HLA-DR, [place], and Lambda.# events: [id number]: 92%Flow Cytometry Differential (CD45/SSC)Lymphocyte [place]: 51%CD45 dim [place]: 1%Monocyte [place]: 2%Granulocyte Gat e: 35%Nucleated/Erythroid [place]: 3%The lymphocyte gate showsB-cells (CD19): 4%T- cells (CD3): 84%NK-cells (CD3-/CD56+): 9%[place]/Lambda Ratio: 1.4CD4/CD8 Ratio: 2.7Results: (expressed as % of lymphocyte gate)T-cell Markers: CD2 = 90, CD3 = 84, CD3/CD4 = 62, CD3/CD8 = 26, CD5 = 84,CD7 = 83, CD3/57 = 21B-cell markers: [place] = 2, Lambda = 1, CD19 = 4, CD20 = 4, CD19/10 = 0,CD19/CD5 = 0, CD38/CD20 = 3Light chain as % of B-Cells: CD19/[place] = 50, CD19/Lambda = 38,CD19/CD5/[place] = 1, CD19/CD5/Lambda = 0,CD19/CD10/[place] = 3, CD19/CD10/Lambda = 3NK cell Markers: CD56 = 20, CD57 = 24Other Markers: CD10 = 0, CD38 = 53Results: (expressed as % of CD45 dim gate)T-cell Markers: CD2 = 20, CD3 = 14, CD3/CD4 = 11, CD3/CD8 = 5, CD5 = 27,CD7 = 21, CD3/57 = 2B-cell markers: [place] = 6, Lambda = 3, CD19 = 3, CD20 = 3, CD19/10 = 2,CD19/CD5 = 0, CD38/CD20 = 3Light chain as % of B-Cells: CD19/[place] = 25, CD19/Lambda = 8,CD19/CD10/[place] = 0, CD19/CD10/Lambda = 0NK cell Markers: CD56 = 9, CD57 = 5Basophil Markers: CD123 (HLA-DR-) = 4Other Markers: CD10 = 12, CD38 = 67, CD33 = 24, CD34 = 23, CD64 = 3, CD117= 17, CD123 = 9, HLA-DR = 40Myeloma Panel for Gama Perry MM [id number] following markers were assayed: CD45 (cell gate), CD138 (plasma cellgate), CD19, CD20, CD38, CD56, cytoplasmic [place], and cytoplasmic Lambda.(Please note, that Cytoplasmic [place] and Cytoplasmic Lambda are used todetect plasma cells, while surface [place] and Lambda are for lymphocytes).# events: [id number] NOTE: Routinely a minimum of 500,000 events are collectedin each panel tube. Due to sample cellularity and/or processing thisnumber was not ac hievable for this sample.Viability: 90%Flow Cytometry Differential:Lymphocyte [place]: 34%CD45 dim [place]: 0%Monocyte [place]: 4%Granulocyte [place]: 55%NRBC [place]: 4%CD138 Plasma Cell [place]: 0.5%Results: (expressed as % of lymphocyte gate)B- Cells (CD19): 4%CD19 = 4, CD20 = 4Light chain as % of B-Cells: Cytoplasmic [place]/CD20 = 48, CytoplasmicLambda/CD20 = 33Results: (expressed as % of total CD138+ plasma cell gate)CD38 = 99, CD56 = 98, CD38/56 = 98, CD19 = 3, CD20 = 73Cytoplasmic [place]/CD138 = 90, Cytoplasmic Lambda/CD138 = 0 Results- [...] were developed and theirperformance characteristics determined by [facility] Pathology department.They have not been cleared or approved by the US Food and DrugAdministration. The FDA has determined that such clearance or approval isnot necessary. Name Value Range Interpretation Code Description Data Miladys rce(s) Supporting Document(s) ID Date Data Source [id number] 03/27/2019 03:24:00 PM [facility] Cytogenetics ReportName: JEREMI MALLOY MM RN: [id number] Number: [id number] Date: 03/20/2019 00:00Received Date: 03/21/2019 13:59Physician(s): MELIZA LANDRUM MD, YILIN MDSpecimen(s) ReceivedA: Bone Marrow (Karyotype Analysis)Clinical HistoryLytic lesions, seronegative rheumatoid arthritis, recently treated forlatent TBTEST REQUESTED/PERFORMED: Karyotype Analysis and Fluorescence in situhybridization - FISH DiagnosisFISH RESULTS:[facility] Myeloma panel:nuc jeannine(CDKN2C,CKS1B)x2[97/100],(5p15.31,EGR1)x3[90/100],(G64A318,13q34)x2[95/100],( IgHx1)[91/100],(TP53x1,K23O4r2)[25/100],(TP 53x1,AR55xgdo1,T85V4a6)[17/100],(TP53,D17Z1)x1[10/100]CEP 7/A1O498 (7q31): nuc jeannine (D7Z1,O6F713)x2[98/100] CEP 9: nuc jeannine (D9Z1x3)[43/100],(D9Z1x4)[38/100] INTERPRETATION: Hyperdiploidy [...] ([id number]). Electronically Signed By Piper Wesley, Ph.D., [facility], Director ofCytogenetics 03/27/2019 15:24:33Gross DescriptionDATA:SPECIMEN TYPE: BONE MARROW (Karyotype Analysis) / ISOLATED PLASMA CELLS(FISH) CULTURE TYPE: 24 HOUR UNSTIMULATEDADDITIONAL CELLS EVALUATED FOR FISH: 700 ISCN NOMENCLATURE: nuc jeannine(CDKN2C,CKS1B)x2[97/100],(5p15.31,EGR1)x3[90/100],(D7Z1,X2P392)x2[98/100],(D9 Z1x3)[43/100],(D9Z1x4)[38/100],(Z57S323,13q34)x2[95/100],(IgHx1)[91/100],(TP53x1 ,D17Z1 x2)[25/100],(TP53x1,HH71geso6,J83Q3j3)[17/100],(TP53,D17Z1)x1[10/100]COMMENTS:Fl uorescence in situ hybridization (FISH) studies were performed toevaluate specifically for abnormalities of chromosomes 1, 5, 7, 9, 13, 14,and 17, which have been associated with multiple myeloma. The probes wereobtained from [employer] or [employer]. Hybridization wascarried out as per the stated [...] - 2 signals each locus CEP 7/LSI T0M060 D7Z1/7q31 greenorange 100 98% - 2 signals each locus CEP 9 D9Z1 green 100 43% - 6ykqwnpn12% - 4 signals 19% - 2 signals [id number] +control 13q14.213q34 spectrum orange/redspectrum green 100 95% [...] Name Value Range Interpretation Code Description Data [facility] Supporting Document(s) ID Date Data Source [id number] 03/11/2019 09:44:00 AM GENNARO BARCENAS ([facility], ) Name Value Range Interpretation Code Description Data [facility](s) Supporting Document(s) Surgical pathology study (SEE NOTE) SWAPNA ([facility], ) FINAL DIAGNOSIS Gastric antrum, biopsy: Gastric [...] MD 03/14/2019 1121 ID Date Data Source [id number] 03/10/2019 01:04:55 PM EST [facility] Name Value Range Interpretation Code Description Data Miladys rce(s) Supporting Document(s) Progress Note [facility] VIJMCl4sSeGVFqQk91/UCUnyRWHln8UjHZpsYXv5KDxxGOEvZ3PrJTP5wS2sMTL7AGeMVpTrCBxuBqK0 lbm [file] AgICAgICAgICAgICAgICAgICAgICAgICAgICAgICAg ICAgICAgICAgICAgICAgICAgICAgICAgICAgICAgICAgICAgICAgICAgDQogICAgICAgICAgICAgICAg ICAgICAgICAgICAgICAgICAgICAgICAgICAgICAgICAgICAgICAgICAgICAgICAgICAgICAgICAgICAg ICAgICAgICAgICAgICAgICAgICAgICAgDQogICAgIC AgICAgICAgICAgICAgICAgICAgICAgICAgICAgICAgICAgICAgICAgICAgICAgICAgICAgICAgICAgIC AgICAgICAgICAgICAgICAgICAgICAgICAgICAgICAgICAgDQogICAgICAgICAgICAgICAgICAgICAgIC AgICAgICAgICAgICAgICAgICAgICAgICAgICAgICAg ICAgICAgICAgICAgICAgICAgICAgICAgICAgICAgICAgICAgICAgICAgICAgDQogICAgICAgICAgICAg ICAgICAgICAgICAgICAgICAgICAgICAgICAgICAgICAgICAgICAgICAgICAgICAgICAgICAgICAgICAg ICAgICAgICAgICAgICAgICAgICAgICAgICAgDQogIC AgICAgICAgICAgICAgICAgICAgICAgICAgICAgICAgICAgICAgICAgICAgICAgICAgICAgICAgICAgIC AgICAgICAgICAgICAgICAgICAgICAgICAgICAgICAgICAgICAgDQogICAgICAgICAgICAgICAgICAgIC AgICAgICAgICAgICAgICAgICAgICAgICAgICAgICAg ICAgICAgICAgICAgICAgICAgICAgICAgICAgICAgICAgICAgICAgICAgICAgICAgDQogICAgICAgICAg ICAgICAgICAgICAgICAgICAgICAgICAgICAgICAgICAgICAgICAgICAgICAgICAgICAgICAgICAgICAg ICAgICAgICAgICAgICAgICAgICAgICAgICAgICAgDQ ogICAgICAgICAgICAgICAgICAgICAgICAgICAgICAgICAgICAgICAgICAgICAgICAgICAgICAgICAgIC AgICAgICAgICAgICAgICAgICAgICAgICAgICAgICAgICAgICAgICAgDQogICAgICAgICAgICAgICAgIC AgICAgICAgICAgICAgICAgICAgICAgICAgICAgICAg SMLiSDAhJFXxOTItPCLeUHUrYIMeYSTvYDPlFUFyXINqWUUwAUFkERZyWWGnKDYnFEJbCCs1V5jjPNDc ULNyFS6qNXk8Ci3+MWdQGpFoETN2ttGjdV0RXA5jy2ClZTknRLQzu3PtUMu9YJ9ZBBDfAPezZQ5SWVht wd7EPFPoAOAtwFBGn4wnCaBdHLT7MDNcAiwzEE3FTQ CeO4kgnsTrXDSwNOCVNBwwIOFVXNgsSTTUCJKkXQCgFyChYyAkSMRtZXDqPDKXPKO7ZIRrMuHhVXocFO 2Wt0QvhRH7LTv+Uz6WNA6du4NiOEtiTXAtXA9tbz2PXAwQKbYjD4FqwxF3GFF8DQOtWj9CJITvOZAcrG AuJIWyGXEAYfXoL5TxvB76ZJNYFh6+DQplbmRvYmoN QdO9MJDdf1QkNLq4IB4TVRWjNXg6rSRsDZPeV2Yfc7SyWb57PGMuUcbzK8bafabareZgRUORTY8jbRwl PW2TNOH8KBFoZhUlYoWnMNwrUUO0QDJvUU4bJOucSQ1LCIF0RLxmYLJgCICiJ0uLBcWmQVIhJNXtvQzj WR8JIfHfH5ThvlDzlMOiOITlQIYARd8+DQplbmRvYm tMNmA3IVVjg9MlMGy2ND4RYVUrFSdgDI2LDPYkmD7mHVtaWS6ZBvBuNsCfERVYJoKmC77niWTjIKv4J6 VtYmVkZGVkRmlsZXMgPDwvTmFtZXMgWyBdDQogID4+ID4+FDrsYJ7FDKtnnyUmHWXrRx8OFASlKFAvLL 4qBPKjZRJiH9C4kBxpPXTJRgKdT6mxfqikUM5qOVYi J088tWfqaxZsAXI4OVDcNy2FGAWiSFS4PHZovVCtCzNqKLCLKXkcHS3VwEYeRNM2cH9uRAilTQZoNIBl Y8aJUwJgwEtaJH62yZwmgcButOPdKKj+Mp0XAV2nt6TeVVv5vdSgOXslOQM0QBssYHQoRNMkDCBcFXN8 HNM5CJTOHeGfTDZeLEAzLPgdQYAnWONixg1BLRIuEG SpAEK5MxZgKQUpBTMiEWpeKTVwQLE7Hry5VXGcOKQjKM6GMgLtBLPuTBOyWKhbBIUbWITtvk9UEZVuLE DlSvdiChJxWGEtTWYpUCgxPNNnIKL1IPM6FPErXVCvIB3YTnJnSHFlCAikZbHiWLZaVEHmsk1TXYZdYX FqTkI3HVVlAPQgGTWjYOgjJTGuNMWdSxvnHOMqQTMe TC7ZIdHqHVPaIQL4DpdhIHVuNBNwqr7XTBNtPLIuKoA9ZJQfVOHmWFDdPSstXTBaSULgSJExXWKjIHVs WA9VHhVqUEWdQPcaNqFoLDKwTQUfdn2JRGNuKPCvWyHyAdGkCDEjTZZaEEyvKINgNNP4DXP1DOUzOSFb IY9AYnKdRMRpUKn0HpTzPMGyUZTpmt7ZDHZvZUAwWP Z1PhWmQXRoBSJqMQhaPGIaOZXvUjmqXUApQBNhWB5ADqLqACByVpC8EyQnSIMeMLJumv8CMZUlGOUhDw miXJNhZBChZHXqJUiwLMQfHAPgBNOaMRMjOVQjRX1MCqJoJHImHoU0GeJeTCTjNHTkzk8DYEGeIHNpTT U2TmCgYIJzLXTnKHaeQSQmLRU9BzNqESNqRUIaLO1F BmEqXRGkWvU2DKRuBBTvGLXxrh0XJHTcGYRxNnQhZmDcTNTdYMXjTLlkXXUmMKN0EyD7OYQaKQTpPZ7K AoNwDBXgSbL5OpSaMQIuKQHgfw8QZLXvDIVpGdrxSIZtXZMiESPsBNkiIUQfIOU5IdK9MAOlVSAtRZ5H AiNaZPNqDkz9FYUoNDOcAOHnwb8PPAJcISYwIQGsXP RkXEUvTVYlBNbaYYBlUCM2UNK7EUIqXMBkEK1CBvPoUDZlZum9OqUvROQcCQQwyf4RGRXoNCCpWKw4Cv PiAGAoJACtBYxmTXLmCHRyUIQrHNHxWWOkMI8AVtNfWBchCRLSOhj8YDmtN6z4LTVcDh6UN4Hmc6OuZc XaKSCVLJfqHF6fefNxQZJyBm5UT1cBTps8WMAdK7M8 RhcsKFhiLDI3PQtcCTHhULwyXtyoYlwuWU8fGRC8GKUdVqv7TfT0UAYjVzh1YTZ9SpL8GFSgG7YlXvLa LsJmUC7BDa0WBrI9OQL8sAHmOk9TQLQnLJEDNnBjKF8YQWw= ID Date Data Source URINE TOTAL PROTEIN 24 HOUR 02/21/2019 12:00:00 AM EST eCW1 ([facility]) Name Value Range Interpretation Code Description Data Miladys rce(s) Supporting Document(s) 210.0 50-150 TOTAL PROTEIN 24 HOUR URI NE eCW1 ([facility]) 6.0 0-12 URINE TOTAL PROTEIN eCW1 ([facility]) ID Date Data Source URINE CREATININE 24 HOUR 02/21/2019 12:00:00 AM EST eCW1 ([facility]) Name Value Range Interpretation Code Description Data Miladys rce(s) Supporting Document(s) 3500 TOTAL VOLUME, URINE eCW1 ([facility]) 1309.0 600-1800 CREATININE 24 HOUR, URINE eCW1 ([facility]) 37.4 CREATININE, URINE eCW1 ([facility]) ID Date Data Source LDH LACTATE DEHYDROGENASE 02/19/2019 12:00:00 AM EST eCW1 ([facility]) Name Value Range Interpretation Code Description Data Milayds rce(s) Supporting Document(s) 138 84-246 LDH LACTATE DEHYDROGENASE eCW1 ([facility]) ID Date Data Source SERUM PROTEIN ELECTROPHORESIS 02/19/2019 12:00:00 AM EST eCW 1 ([facility]) Name Value Range Interpretation Code Description Data Miladys rce(s) Supporting Document(s) 42.5 55.8-66.1 ALBUMIN % eCW1 ([facility]) 7.7 7.1-11.8 TJERR-5-SULVHMEDM % eCW1 ([facility]) 4.0 4.7-7.2 FFEG-3-JDSNARNCJ % eCW1 ([facility]) 3.2 2.9-4.9 KPPIG-0-OFNNRZSS % eCW1 ([facility]) 14.3 3.2-6.5 WKKF-9-FSWKKTXNS % eCW1 ([facility]) 4.08 3.29-5.55 ALBUMIN eCW1 ([facility]) 1.3 11.1-18.8 GAMMA GLOBULIN % eCW1 ([facility]) 0.31 0.17-0.41 UCTDR-0-JJWFHQIZG eCW1 ([facility]) 0.74 0.42-0.99 MPZGT-2-MVQYKEOJK eCW1 ([facility]) 0.12 0.65-1.58 GAMMA GLOBULINS eCW1 ([facility]) 9.6 6.4-8.2 TOTAL PROTEIN eCW1 ([facility]) 3.96 0.19-0.55 ZFDL-5-CQYKJOWFT eCW1 ([facility]) 0.38 0.28-0.60 JETR-3-GNGAUQGYL eCW1 ([facility]) SEE COMMENT SPEP INTERPRETATION eCW1 ([facility]) ID Date Data Source MAGNESIUM LEVEL 02/19/2019 12:00:00 AM EST eCW1 ([facility]) Name Value Range Interpretation Code Description Data Miladys rce(s) Supporting Document(s) 1.8 1.8-2.4 MAGNESIUM LEVEL eCW1 ([facility]) ID Date Data Source Basic Metabolic Profile (BMP) 02/19/2019 12:00:00 AM EST eCW 1 ([facility]) Name Value Range Interpretation Code Description Data Miladys rce(s) Supporting Document(s) 119 70-100 GLUCOSE, FASTING eCW1 ([facility]) 13 7-18 BLOOD UREA NITROGEN eCW1 ([facility]) > 60.0 >45 GLOMERULAR FILTRATION RATE eCW 1 ([facility]) 0.96 0.55-1.30 CREATININE FOR GFR eCW1 ([facility]) 140 136-145 SODIUM LEVEL eCW1 ([facility]) 3.6 3.5-5.1 POTASSIUM SERUM eCW1 ([facility]) 101 98-107 CHLORIDE LEVEL eCW1 ([facility]) 32 21-32 CARBON DIOXIDE LEVEL eCW1 ([facility]) 8.8 8.8-10.2 CALCIUM LEVEL eCW1 ([facility]) ID Date Data Source FREE KAPPA & LAMBDA LT CHAIN S 02/19/2019 12:00:00 AM EST eC W1 ([facility]) Name Value Range Interpretation Code Description Data Miladys rce(s) Supporting Document(s) 14.22 0.26-1.65 KAPPA/LAMBDA RATIO SERUM eCW1 ([facility]) 32.7 3.3-19.4 FREE KAPPA LIGHT CHAINS S DIANNA eCW1 ([facility]) 2.3 5.7-26.3 FREE LAMBDA LIGHT CHAINS SERUM eCW1 ([facility]) ID Date Data Source C REACTIVE PROTEIN QUANTITATIV (At [facility]) 02/19/2019 12:00 :00 AM EST eCW1 ([facility]) Name Value Range Interpretation Code Description Data Miladys rce(s) Supporting Document(s) < 0.30 0.00-0.30 C REACTIVE PROTEIN QUANTI TATIV eCW1 ([facility]) ID Date Data Source BETA 2 MICROGLOBULIN 02/19/2019 12:00:00 AM EST eCW1 ([facility]) Name Value Range Interpretation Code Description Data Miladys rce(s) Supporting Document(s) 3.2 0.6-2.4 BETA 2 MICROGLOBULIN eCW1 ([facility]) Procedure Social History Code Duration Value Status Description Data Source(s ) Smoking 04/09/2020 12:00:00 AM EST Former Smoker completed Former Smoker eCW1 ([facility]) Alcohol intake 04/08/2020 12:00:00 AM EST Not Currently completed [facility] Smoking 04/08/2020 12:00:00 AM EST Former smoker completed Former smoker [facility] Smoking 03/24/2020 12:00:00 AM EST Former Smoker completed Former Smoker eCW1 ([facility]) Smoking 03/24/2020 12:00:00 AM EST Former Smoker completed Former Smoker eCW1 ([facility]) Smoking 03/24/2020 12:00:00 AM EST Former Smoker completed Former Smoker eCW1 ([facility]) Smoking 03/24/2020 12:00:00 AM EST Former Smoker completed Former Smoker eCW1 ([facility]) Smoking 03/24/2020 12:00:00 AM EST Former Smoker completed Former Smoker eCW1 ([facility]) Smoking 12/20/2019 12:00:00 AM EDT Former Smoker completed Former Smoker eCW1 ([facility]) Smoking 12/20/2019 12:00:00 AM EDT Former Smoker completed Former Smoker eCW1 ([facility]) Smoking 12/20/2019 12:00:00 AM EDT Former Smoker completed Former Smoker eCW1 ([facility]) Smoking 12/20/2019 12:00:00 AM EDT Former Smoker completed Former Smoker eCW1 ([facility]) Smoking 09/19/2019 12:00:00 AM EDT Former Smoker completed Former Smoker eCW1 ([facility]) Smoking 05/07/2019 12:00:00 AM EST Patient is a former smoker completed Patient is a former smoker MEDENT ([facility], ) Alcohol intake 04/12/2019 12:00:00 AM EST Current non-d korina of alcohol (finding) completed Current non-drinker of alcohol (finding) [facility] Cigarette pack-years 04/12/2019 12:00:00 AM EST UNK completed [facility] Cigarettes smoked current (pack per day) - Reported 04/12/19 20 12:00:00 AM EST UNK completed [facility] Smoking 04/12/2019 12:00:00 AM EST Former smoker completed Former smoker [facility] Alcohol intake 03/10/2019 12:00:00 AM EST Current non-d korina of alcohol (finding) completed Current non-drinker of alcohol (finding) [facility] Cigarette pack-years 03/10/2019 12:00:00 AM EST UNK [facility] Cigarettes smoked current (pack per day) - Reported 03/10/20 19 12:00:00 AM EST UNK completed [facility] Smoking 03/10/2019 12:00:00 AM EST Former smoker completed Former smoker [facility] Vital Signs ID Date Data Source UNK Name Value Range Interpretation Code Description Data Source(s) Oxygen saturation in Arterial blood by Pulse oximetry 96 % 96 % [facility] Body mass index (BMI) [Ratio] 29.95 kg/m2 29.95 kg/m2 [facility] Body weight 81.647 kg 81.647 kg [facility] Body height 165.1 cm 165.1 cm [facility] Diastolic blood pressure 90 mm[Hg] 90 mm[Hg] [facility] Systolic blood pressure 130 mm[Hg] 130 mm[Hg] [facility] Diastolic blood pressure 84 mm[Hg] 84 mm[Hg] eCW1 ([facility]) Systolic blood pressure 150 mm[Hg] 150 mm[Hg] e CW1 ([facility]) Body temperature 97.2 [degF] 97.2 [degF] eCW1 ( [facility]) Respiratory rate 18 /min 18 /min eCW1 ([facility]) Heart rate 97 /min 97 /min eCW1 ([facility]) Body mass index (BMI) [Ratio] 32.11 kg/m2 32.11 kg/m2 eCW1 ([facility]) Body height 64.5 [in_i] 64.5 [in_i] eCW1 ([facility]) Body weight 190 [lb_av] 190 [lb_av] eCW1 ([facility]) Diastolic blood pressure 76 mm[Hg] 76 mm[Hg] eCW1 ([facility]) Systolic blood pressure 130 mm[Hg] 130 mm[Hg] e CW1 ([facility]) Body temperature 96.9 [degF] 96.9 [degF] eCW1 ( [facility]) Respiratory rate 18 /min 18 /min eCW1 ([facility]) Heart rate 82 /min 82 /min eCW1 ([facility]) Body mass index (BMI) [Ratio] 31.43 kg/m2 31.43 kg/m2 eCW1 ([facility]) Body height 64.5 [in_i] 64.5 [in_i] eCW1 ([facility]) Body weight 186 [lb_av] 186 [lb_av] eCW1 ([facility]) Body surface area Derived from formula 1.86 m2 1.86 m2 [facility], ) Body weight 83.462 kg 83.462 kg [facility] ([facility], ) [place] body weight 110 [lb_av] 110 [lb_av] MEDEN T ([facility], ) Body mass index (BMI) [Ratio] 33.1 kg/m2 33.1 k g/m2 MEDENT ([facility], ) Body weight 184.00 [lb_av] 184.00 [lb_av] MEDEN T ([facility], ) Body height 62.50 [in_i] 62.50 [in_i] MEDENT ([facility] ) 5'2.50" Diastolic blood pressure 68 mm[Hg] 68 mm[Hg] MEDENT ([facility], ) Systolic blood pressure 122 mm[Hg] 122 mm[Hg] M EDENT ([facility], ) Diastolic blood pressure 60 mm[Hg] 60 mm[Hg] eCW1 ([facility]) Systolic blood pressure 112 mm[Hg] 112 mm[Hg] e CW1 ([facility]) Body temperature 97.4 [degF] 97.4 [degF] eCW1 ( [facility]) Respiratory rate 18 /min 18 /min eCW1 ([facility]) Heart rate 77 /min 77 /min eCW1 ([facility]) Body mass index (BMI) [Ratio] 31.09 kg/m2 31.09 kg/m2 W1 ([facility]) Body height 64.5 [in_us] 64.5 [in_us] eCW1 ([facility]) Body weight Measured 184 [lb_av] 184 [lb_av] eC W1 ([facility]) Diastolic blood pressure 70 mm[Hg] 70 mm[Hg] eCW1 ([facility]) Systolic blood pressure 120 mm[Hg] 120 mm[Hg] e CW1 ([facility]) Body temperature 97.3 [degF] 97.3 [degF] eCW1 ( [facility]) Respiratory rate 18 /min 18 /min eCW1 ([facility]) Heart rate 74 /min 74 /min eCW1 ([facility]) Body mass index (BMI) [Ratio] 30.59 kg/m2 30.59 kg/m2 eCW1 ([facility]) Body height 64.5 [in_us] 64.5 [in_us] eCW1 ([facility]) Body weight Measured 181 [lb_av] 181 [lb_av] eC W1 ([facility]) Body surface area Derived from formula 1.87 m2 1.87 m2 MEDENT ([facility], ) Body weight 84.823 kg 84.823 kg [facility] [place] body weight 110 [lb_av] 110 [lb_av] MEDEN T ([facility]) Body mass index (BMI) [Ratio] 33.7 kg/m2 33.7 k g/m2 [facility] ([facility]) Body weight 187.00 [lb_av] 187.00 [lb_av] MEDEN T ([facility]) Body height 62.50 [in_i] 62.50 [in_i] MEDENT ([facility]) 5'2.50" Oxygen saturation in Arterial blood by Pulse oximetry 98 % 98 % [facility] ([facility]) Room Air Heart rate 77 /min 77 /min [facility] ([facility]) Diastolic blood pressure 68 mm[Hg] 68 mm[Hg] [facility] ([facility]) Systolic blood pressure 118 mm[Hg] 118 mm[Hg] [facility] ([facility]) Body weight 84.370 kg 84.370 kg [facility] ([facility]) Body mass index (BMI) [Ratio] 33.5 kg/m2 33.5 k g/m2 [facility] ([facility]) Body weight 186.00 [lb_av] 186.00 [lb_av] MEDEN T ([facility]) Body height 62.50 [in_i] 62.50 [in_i] [facility] ([facility]) 5'2.50" Diastolic blood pressure 77 mm[Hg] 77 mm[Hg] [facility] ([facility]) Systolic blood pressure 148 mm[Hg] 148 mm[Hg] [facility] ([facility]) Body weight 84.029 kg 84.029 kg [facility] ([facility]) Body mass index (BMI) [Ratio] 33.3 kg/m2 33.3 k g/m2 [facility] ([facility]) Body weight 185.25 [lb_av] 185.25 [lb_av] MEDEN T ([facility]) Body height 62.50 [in_i] 62.50 [in_i] MEDENT ([facility]) 5'2.50" Diastolic blood pressure 72 mm[Hg] 72 mm[Hg] MEDENT ([facility], ) Systolic blood pressure 112 mm[Hg] 112 mm[Hg] M EDENT ([facility], ) Diastolic blood pressure 76 mm[Hg] 76 mm[Hg] eCW1 ([facility]) Systolic blood pressure 120 mm[Hg] 120 mm[Hg] e CW1 ([facility]) Body temperature 97.2 [degF] 97.2 [degF] eCW1 ( [facility]) Respiratory rate 17 /min 17 /min eCW1 ([facility]) Heart rate 70 /min 70 /min eCW1 ([facility]) Body mass index (BMI) [Ratio] 31.77 kg/m2 31.77 kg/m2 W1 ([facility]) Body height 64.5 [in_us] 64.5 [in_us] eCW1 ([facility]) Body weight Measured 188 [lb_av] 188 [lb_av] eC W1 ([facility]) Diastolic blood pressure 80 mm[Hg] 80 mm[Hg] eCW1 ([facility]) Systolic blood pressure 132 mm[Hg] 132 mm[Hg] e CW1 ([facility]) Body temperature 97.5 [degF] 97.5 [degF] eCW1 ( [facility]) Respiratory rate 18 /min 18 /min eCW1 ([facility]) Heart rate 89 /min 89 /min eCW1 ([facility]) Body mass index (BMI) [Ratio] 31.87 kg/m2 31.87 kg/m2 eCW1 ([facility]) Body height 64.5 [in_us] 64.5 [in_us] eCW1 ([facility]) Body weight Measured 188.6 [lb_av] 188.6 [lb_av ] eCW1 ([facility]) Systolic blood pressure 134 mm[Hg] 134 mm[Hg] A THENA ([facility] [facility]) Body height 65 [in_i] 65 [in_i] KIMANI ([facility]) Diastolic blood pressure 74 mm[Hg] 74 mm[Hg] KIMANI ([facility]) Diastolic blood pressure 70 mm[Hg] 70 mm[Hg] eCW1 ([facility]) Systolic blood pressure 122 mm[Hg] 122 mm[Hg] e CW1 ([facility]) Body temperature 97.9 [degF] 97.9 [degF] eCW1 ( [facility]) Respiratory rate 18 /min 18 /min eCW1 ([facility]) Heart rate 81 /min 81 /min eCW1 ([facility]) Body mass index (BMI) [Ratio] 31.26 kg/m2 31.26 kg/m2 W1 ([facility]) Body height 64.5 [in_us] 64.5 [in_us] eCW1 ([facility]) Body weight Measured 185 [lb_av] 185 [lb_av] eC W1 ([facility]) ID Date Data Source [id number] 03/20/2020 04:26:05 PM [facility] Name Value Range Interpretation Code Description Data Source(s) WEIGHT RECORDED 188.01 pounds 188.01 pounds [facility] Height [address] [facility] WEIGHT RECORDED 188.01 pounds 188.01 pounds [facility] Height [address] [facility] ID Date Data Source [id number] 04/24/2019 05:53:30 PM [facility] Name Value Range Interpretation Code Description Data Source(s) WEIGHT RECORDED 187.4 lb 187.4 lb [facility] Body height Measured 62.99 in 62.99 in [facility] ID Date Data Source [id number] 03/10/2019 01:04:55 PM [facility] Name Value Range Interpretation Code Description Data Source(s) WEIGHT RECORDED 189 lb 189 lb [facility] Body height Measured 62.99 in 62.99 in [facility] Patient Treatment Plan of Care Planned Activity Planned Date Details Description Data Source (s) Blood Pressure Cuff - 04/09/2020 12:00:00 AM EST eCW1 ([facility]) Diphenhydramine-Zinc Acetate 1-0.1 % 04/09/2020 12:00:00 AM EST eCW1 ([facility]) Hydralazine Hydrochloride 10 MG Oral Tablet 03/27/2020 12:00:00 AM EST eCW1 ([facility]) Potassium Chloride 20 MEQ Extended Release Oral Tablet 03/27/2020 12:00:00 AM EST eCW1 ([facility]) Metoprolol Tartrate 25 MG Oral Tablet 03/27/2020 12:00:00 AM EST eCW1 ([facility]) potassium chloride SA (K-DUR,KLOR-CON) 20 MEQ tablet 12:00:00 AM EST [facility] pantoprazole 40 MG Delayed Release Oral Tablet 03/15/2020 12:00:00 AM EST [facility] Metoprolol Tartrate 25 MG Oral Tablet 03/15/2020 12:00:00 AM EST [facility] Losartan Potassium 25 MG Oral Tablet 02/20/2020 12:00:00 AM EST [facility] Ondansetron 4 MG Oral Tablet 02/15/2020 12:00:00 AM EST [facility] Morphine Sulfate 15 MG Oral Tablet 01/08/2020 12:00:00 AM EDT [facility] tizanidine 2 MG Oral Tablet 12/20/2019 12:00:00 AM EDT eCW1 ([facility]) Trazodone Hydrochloride 50 MG Oral Tablet 12/20/2019 12:00:00 AM ED T eCW1 ([facility]) tizanidine 2 MG Oral Tablet 12/20/2019 12:00:00 AM EDT eCW1 ([facility]) Trazodone Hydrochloride 50 MG Oral Tablet 12/20/2019 12:00:00 AM ED T eCW1 ([facility]) tizanidine 2 MG Oral Tablet 12/20/2019 12:00:00 AM EDT eCW1 ([facility]) Trazodone Hydrochloride 50 MG Oral Tablet 12/20/2019 12:00:00 AM ED T eCW1 ([facility]) tizanidine 2 MG Oral Tablet 12/20/2019 12:00:00 AM EDT eCW1 ([facility]) Trazodone Hydrochloride 50 MG Oral Tablet 12/20/2019 12:00:00 AM ED T eCW1 ([facility]) torsemide 100 MG Oral Tablet 09/25/2019 12:00:00 AM EDT [facility] Hydroxyzine Hydrochloride 25 MG Oral Tablet 09/23/2019 12:00:00 AM EDT [facility] atorvastatin 80 MG Oral Tablet 09/20/2019 12:00:00 AM EDT eCW1 ([facility]) atorvastatin 80 MG Oral Tablet 09/20/2019 12:00:00 AM EDT eCW1 ([facility]) atorvastatin 80 MG Oral Tablet 09/20/2019 12:00:00 AM EDT eCW1 ([facility]) atorvastatin 80 MG Oral Tablet 09/20/2019 12:00:00 AM EDT eCW1 ([facility]) MetFORMIN HCl ER 750 MG 09/20/2019 12:00:00 AM EDT eCW1 ([facility]) atorvastatin 80 MG Oral Tablet 09/20/2019 12:00:00 AM EDT eCW1 ([facility]) atorvastatin 80 MG Oral Tablet 09/20/2019 12:00:00 AM EDT [facility] Dexamethasone 4 MG Oral Tablet 08/17/2019 12:00:00 AM EDT [facility] pomalidomide 2 MG Oral Capsule 08/01/2019 12:00:00 AM EDT [facility] Misc. Devices - 07/17/2019 12:00:00 AM EDT eCW1 ([facility]) tramadol hydrochloride 50 MG Oral Tablet 07/15/2019 12:00:00 AM EDT [facility] Acyclovir 400 MG Oral Tablet 07/13/2019 12:00:00 AM EDT [facility] Famotidine 40 MG Oral Tablet 02/19/2019 12:00:00 AM EST eCW1 ([facility]) Famotidine 40 MG Oral Tablet 02/19/2019 12:00:00 AM EST eCW1 ([facility]) Potassium Chloride 10 MEQ Extended Release Oral Capsul e 11/18/2015 12:00:00 AM EDT [facility] Losartan Potassium 100 MG Oral Tablet 11/18/2015 12:00:00 AM EDT [facility] Furosemide 40 MG Oral Tablet 10/22/2008 12:00:00 AM EDT [facility] Colchicine 0.6 MG Oral Tablet [facility] Cimetidine 800 MG Oral Tablet KIMANI ([facility])
[2020-04-14] MEDS ORDERED: NS 1,000 ML IV SCH (04:00)
[2020-04-14] MEDS ORDERED: GLUCAGON INJ 1MG VIAL SC PRN (04:00)
[2020-04-14] MEDS ORDERED: GLUCOSE 4GM CHEW TABLET PO PRN (04:00)
[2020-04-14] MEDS ORDERED: DEXTROSE 50% 50 ML SYRINGE IV PRN (04:00)
[2020-04-14] MEDS ORDERED: ATOR1TAB19 PO (04:16)
[2020-04-14] MEDS ORDERED: TORS20TA2 PO (04:16)
[2020-04-14] MEDS ORDERED: ACYC400T PO (04:16)
[2020-04-14] MEDS ORDERED: METO25TA4 PO (04:16)
[2020-04-14] MEDS ORDERED: HYDR10TAB PO (04:16)
[2020-04-14] MEDS ORDERED: POTA20TA6 PO (04:16)
--- NOTE | 2020-04-14 06:49 | HPEPDOC ---
[facility] Medical History & Physical Date of Admission Apr 14, 2020 Date of Service: Apr 14, 2020 Primary Care Physician: TWYLA ROTH MD Attending Physician: ОЛЬГА ALMARAZ MD History and Physical CHIEF COMPLAINT: Abdominal pain, diarrhea, syncope HISTORY OF PRESENT ILLNESS: Patient is a 64 -year-old female with a past medical history significant for multiple myeloma IgG kappa subtype, which would arthritis, COPD, fibromyalgia, hypertension migraines and obstructive sleep apnea who presented to the [facility] emergency department with complaint of abdominal pain, diarrhea and a syncopal episode. Patient states that she has chronic abdominal pain however, it worsened today. She states this morning around 10 AM she developed diarrhea as well as some nausea and vomiting. She stated this occurred throughout the day. At one point, the patient states that she had a syncopal episode. She states that she thought she was in her bedroom but had woken up on the bathroom floor. She is unsure of the events surrounding this. She states that she is unsure how long she was down. She is unsure if she hit her head. She believes did not. She denied any chest pain or palpitations or shortness of breath. Around 9 PM tonight she developed severe left lower quadrant abdominal pain as well as worsening of her diarrhea. Patient stated that she started to feel weak and lightheaded. She was unable to stand up without feeling lightheaded. On presentation to the emergency department the patient was hypotensive with a blood pressure 90/57. She is afebrile and not tachycardic.. She received a 1 L normal saline bolus with appropriate rise in her blood pressure. CT imaging of the abdomen and pelvis was obtained which demonstrated acute diverticulitis involving the sigmoid colon without evidence of obstruction, perforation or underlying mass. Hospitalist service come consulted and the patient was admitted for further evaluation management PAST MEDICAL HISTORY: 1. Multiple myeloma IgG kappa Subtype diagnosed in February 2018. 2. Rheumatoid arthritis. 3. Chronic obstructive pulmonary disease 4. Fibromyalgia. 5. Hypertension 6. PTSD. 7. Migraines. 8. Depression/anxiety. 9. Hyperlipidemia 10. Obstructive sleep apnea PAST SURGICAL HISTORY: 1. Ventral hernia repair in 2015 2.. Cholecystectomy in 2002. 3.. Total hysterectomy. 4. Partial thyroidectomy. 5. Cystoscopy. 6. Endoscopic polypectomy. 7. Stem cell transplant. 8. Bone marrow biopsy 9. Appendectomy. 10. Right carpal tunnel release. 11. Lithotripsy. SOCIAL HISTORY: Patient currently lives at home with her son in mom. She takes care of herself for the most part. Denies any alcohol use. Denies any IV or illicit drug use. She is a former smoker. She quit smoking in her 30s. FAMILY HISTORY: Patient's father is from coronary artery disease. Her mother has a medical history significant for heart disease ALLERGIES: Please see below. REVIEW OF SYSTEMS: CONSTITUTIONAL: Denies fevers, chills, unintentional weight loss or weight gain. Denies night sweats. HEENT:. Denies headache or change in vision. Denies dysphagia, odynophagia. CARDIOVASCULAR: Denies chest pain, palpitations or feelings of the heart racing. RESPIRATORY: Denies shortness of breath. Denies cough. Denies wheezing. GASTROINTESTINAL:. Admits to abdominal pain in the left lower quadrant mainly. Admits to nausea, vomiting. Admits to diarrhea. Denies any bloody stool. GENITOURINARY:. Denies dysuria, increased frequency. SKIN: Denies any rashes or lesions MUSCULOSKELETAL:. Admits to chronic muscle skeletal pain due to her f ibromyalgia. NEUROLOGICAL: Denies any changes in gait or speech from baseline. PSYCHIATRIC: Admits to history of depression, anxiety. ENDOCRINE:. Denies any heat intolerance or cold intolerance. Admits to history of prediabetes. HEMATOLOGIC/LYMPHATIC: Denies any easy bruising or bleeding. Denies any history of DVT or pulmonary embolism. HOME MEDICATIONS: Please see below. PHYSICAL EXAMINATION: VITAL SIGNS: Temperature 97.6, pulse 80, respiratory rate 17, blood pressure 140/73, pulse oximetry, 96 % on room air. GENERAL APPEARANCE: Awake, alert, oriented. She does not appear in acute distress she is lying in stretcher comfortably. She does appear ill. HEENT: Atraumatic, Normocephalic. Eyes nonicteric. Trachea is midline.. It is members are slightly dry CARDIOVASCULAR:. Normal S1, S2, regular rate and rhythm, 2/6 systolic ejection murmur. No clicks or rubs. LUNGS:. Clear vesicular breath sounds bilaterally. Good respiratory effort. No wheezes rhonchi or rales. ABDOMEN:. Soft nondistended, morbidly obese. Diffuse tenderness to palpation, although more so in the left lower quadrant. No rebound tenderness or guarding. Hyperactive bowel sounds throughout EXTREMITIES: No edema. Full equal pulses in bilateral upper and lower extremities. NEUROLOGICAL:. No focal neurological deficits. PSYCHIATRIC: Mood And affect appear appropriate. LABORATORY DATA: See below. IMAGING: PROCEDURE INFORMATION: Exam: CT Head Without Contrast Exam date and time: 04/14/2020 1:47 AM Age: 64 years old Clinical indication: Dizziness; Additional info: Syncope TECHNIQUE: Imaging protocol: Computed tomography of the head without contrast. Radiation optimization: All CT scans at this facility use at least one of these dose optimization techniques: automated exposure control; mA and/or kV adjustment per patient size (includes targeted exams where dose is matched to clinical indication); or iterative reconstruction. COMPARISON: CT Head without contrast 04/06/2020 5:24 PM FINDINGS: Brain: No intracranial mass, mass effect or midline shift. No acute intracranial hemorrhage. No CT evidence of acute cortical infarct. Ventricles, cisterns, and sulci are normal in size for age. Bones/joints: No calvarial fracture or destructive process. Paranasal sinuses: Imaged paranasal sinuses are normally aerated. Mastoid air cells: Mastoid air cells and middle ear structures are normally aerated. Orbital cavity: Imaged orbits are unremarkable. Soft tissues: No focal extracranial soft tissue swelling. IMPRESSION: No acute or concerning focal intracranial abnormality. Electronically signed by: Lázaro White On 04/14/2020 02:24:38 AM PROCEDURE INFORMATION: Exam: CT Abdomen And Pelvis With Contrast Exam date and time: 04/14/2020 1:47 AM Age: 64 years old Clinical indication: Abdominal pain; Generalized; Additional info: Syncope TECHNIQUE: Imaging protocol: Computed tomography of the abdomen and pelvis with contrast. Radiation optimization: All CT scans at this facility use at least one of these dose optimization techniques: automated exposure control; mA and/or kV adjustment per patient size (includes targeted exams where dose is matched to clinical indication); or iterative reconstruction. Contrast material: ISO; Contrast volume: 100 ml; Contrast route: INTRAVENOUS (IV); COMPARISON: CT ABD PELVIS WITH CONTRAST 11/28/2019 8:29 AM FINDINGS: Lungs: No suspicious mass or airspace process in the visualized lung bases. Heart: Multi-chamber cardiac dilatation is noted. No evidence of acute pulmonary edema. Mediastinal space: Small hiatal hernia is present. Liver: Liver appears enlarged, with a stable 14 mm inferior right lobe cyst. Gallbladder and bile ducts: Gallbladder is surgically absent. Pancreas: Pancreas appears normal. No focal mass or peripancreatic inflammation. Spleen: Spleen appears homogeneous without focal mass. Adrenal glands: Adrenal glands are normal in appearance. Kidneys and ureters: Kidneys are unremarkable aside from an 11 mm left renal lower pole cyst. Stomach and bowel: No evidence of small bowel obstruction. Sigmoid colon wall thickening, adjacent fat stranding and regional diverticula suggests acute diverticulitis without perforation or abscess formation at this point. Appendix: Normal caliber appendix is identified, with no adjacent inflammation. Intraperitoneal space: No pneumoperitoneum. Vasculature: No aortic aneurysm. Main portal and splenic veins enhance normally. Lymph nodes: No enlarged lymph nodes. Urinary bladder: Urinary bladder appears normal. Reproductive: Uterus is surgically absent. Bones/joints: Bony structures are normal except for lumbar spine degenerative disc changes. Soft tissues: Unremarkable. IMPRESSION: 1. Acute diverticulitis involving the sigmoid colon with no evidence of obstruction, perforation or underlying mass. 2. Hepatomegaly. Electronically signed by: Lázaro White On 04/14/2020 02:24:01 AM MICROBIOLOGY: Please see below. ASSESSMENT: Patient is a 64-year-old female with a past medical history significant for multiple myeloma IgG kappa Subtype, hypertension, rheumatoid arthritis, sleep apnea who presented to the [facility] emergency heart with complaint of nausea, vomiting, abdominal pain and diarrhea and a syncopal episode. . PLAN: 1. Sepsis secondary to acute diverticulitis. -Patient presenting with abdominal pain, nausea, vomiting and diarrhea. CT abdomen pelvis demonstrating acute diverticulitis. No signs of perforation, obstruction or underlying masses. She did receive both Rocephin and Flagyl in the ED. She has multiple antibiotic allergies. -Will continue Rocephin and Flagyl inpatient. -Zofran when necessary for nausea -Morphine when necessary for pain -Will place patient on a clear liquid diet for now. Can advance as tolerated. 2. Hypotension -Patient was hypotensive on presentation. Hypovolemic versus septic. Patient noted had diarrhea all day as well as nausea and vomiting. She was given a 1 L bolus in the ED with appropriate response. Will continue IV fluid hydration. She is on antibiotic coverage. -Will continue IV fluids -Orthostatic vital signs 4 times a day until negative -Her hypotension will likely resolve with her diarrhea as well as her acute diverticulitis 3. Syncopal episode -Patient stated that she has a couple episodes home in which she had woke up on her bathroom floor. Denies hitting her head. CT imaging in the ED was negative for any acute intracranial pathology. -Syncopal episode is likely secondary to her hypovolemia from her diarrhea. -Echocardiogram is ordered -Telemetry 4. Hypertension -Will hold patient's hypertension is medications as she is currently hypotensive, likely from hypovolemia. Will also hold her diuretics. 5. Obstructive sleep apnea -Oxygen therapy orders for titrate greater than 90% 6. Multiple myeloma IgG kappa Subtype -Patient is followed by oncology in [place]. She is status post stem cell transplant. Will continue her valacyclovir 7. DVT prophylaxis -Lovenox Vital Signs Vital Signs Date Time Temp Pulse Resp B/P (MAP) Pulse Ox O2 Delivery O2 Flow Rate FiO2 04/14/20 03:22 87 120/62 (81) 89 109/59 (76) 91 110/58 (75) 04/14/20 03:06 16 98 Nasal Cannula 2.0 04/14/20 01:17 97.6 Laboratory Data Labs 24H Laboratory Tests 2 04/14/20 01:37: Immature Granulocyte % (Auto) 0.3, Neutrophils (%) (Auto) 68.3H, Lymphocytes (%) (Auto) 26.5, Monocytes (%) (Auto) 4.3, Eosinophils (%) (Auto) 0.4, Basophils (%) (Auto) 0.2, Neutrophils # (Auto) 8.5, Lymphocytes # (Auto) 3.3, Monocytes # (Auto) 0.5, Eosinophils # (Auto) 0.1, Basophils # (Auto) 0.0, Nucleated Red Blood Cells % (auto) 0.0, Total Bilirubin 0.8, Direct Bilirubin 0.2, Aspartate Amino Transf (AST/SGOT) 5L, Alanine Aminotransferase (ALT/SGPT) 18, Alkaline Phosphatase 107, Total Creatine Kinase 38, Creatine Kinase MB < 1.0, Creatine Kinase MB Relative Index 2.63, Troponin I < 0.02, Total Protein 7.5, Albumin 4.2, Albumin/Globulin Ratio 1.3, Lipase 39L 04/14/20 01:41: POC Glucose (Misc Panel) 173H, POC Sodium (Misc Panel) 142, POC Potassium (Misc Panel) 3.6, POC Chloride (Misc Panel) 102, POC Total CO2 (Misc Panel) 28.0H, POC Blood Urea Nitrogen (Misc Panel 21, POC Ionized Calcium (Misc Panel) 4.3L, POC Creatinine (Misc Panel) 1.1, POC Hematocrit (Misc Panel) 38.0 04/14/20 02:37: Coronavirus (COVID-19)(PCR) NEGATIVE, Influenza Type A (RT-PCR) NEGATIVE, Infl uenza Type B (RT-PCR) NEGATIVE, Respiratory Syncytial Virus (PCR) NEGATIVE CBC/BMP Laboratory Tests 04/14/20 01:37 Home Medications Scheduled Acyclovir (Acyclovir) 400 Mg Tablet, 400 MG PO BID Allopurinol (Allopurinol) 100 Mg Tablet, 100 MG PO DAILY Atorvastatin Calcium (Atorvastatin Calcium) 10 Mg Tablet, 10 MG PO DAILY Hydralazine HCl (Hydralazine HCl) 10 Mg Tablet, 20 MG PO TID Losartan Potassium (Losartan Potassium) 100 Mg Tablet, 100 MG PO DAILY Metoprolol Tartrate (Metoprolol Tartrate) 25 Mg Tablet, 25 MG PO BID Pantoprazole Sodium (Pantoprazole Sodium) 40 Mg Tablet.dr, 40 MG PO BID Potassium Chloride (Potassium Chloride) 20 Meq Tab.er.prt, 20 MEQ PO BID Torsemide (Torsemide) 20 Mg Tablet, 40 MG PO DAILY Scheduled PRN Docusate Sodium (Docusate Sodium) 100 Mg Capsule, 100 MG PO DAILY PRN for CONSTIPATION Promethazine HCl (Promethazine HCl) 25 Mg Tablet, 25 MG PO Q12H PRN for NAUSEA OR VOMITING Allergies Coded Allergies: Penicillins (Verified Allergy, Severe, THROAT SWELLING/RASH, 04/14/20) Quinolones (Verified Allergy, Intermediate, hives, 04/14/20) carisoprodol (Verified Allergy, Intermediate, hives, 04/14/20) ciprofloxacin (Verified Allergy, Intermediate, SCRATCHY THROAT, 04/14/20) doxycycline (Verified Allergy, Intermediate, HIVES, 04/14/20) gabapentin (Verified Allergy, Intermediate, hives, 04/14/20) spironolactone (Verified Allergy, Intermediate, hives, 04/14/20) amitriptyline (Verified Adverse Reaction, Intermediate, "PASS OUT", 04/14/20) ibuprofen (Verified Adverse Reaction, Intermediate, renal issues, 04/14/20) metformin (Verified Adverse Reaction, Intermediate, DIARRHEA, 04/14/20) A-FIB/CHADSVASC A-FIB History Current/History of A-Fib/PAF?: No GME ATTESTATION GME ATTESTATION My faculty preceptor for this patient encounter was physically present during the encounter and was fully available. All aspects of the patient interview, examination, medical decision making process, and medical care plan development were reviewed and approved by the faculty preceptor. The faculty preceptor is aware and concurs with the plan as stated in the body of this note and will attest to such by his/her cosignature. ATTENDING NOTE TIME OF SERVICE 447 AM is a 64-year-old female with a history of multiple myeloma, rheumatoid arthritis, COPD, hypertension, PTSD, migraine, depression and anxiety will be admitted for evaluation of syncope and acute diverticulitis. Rest per 's H&P NICK ROSARIO DO Apr 14, 2020 04:19 ОЛЬГА ALMARAZ MD Apr 14, 2020 08:14
[2020-04-14 07:18] LABS: HEMATOCRIT 31.6 % (36.0-47.0); MEAN CORPUSCULAR HEMOGLOBIN 33.4 pg (27.0-33.0); MEAN CORPUSCULAR HGB CONC 32.3 g/dl (32.0-36.5); MEAN CORPUSCULAR VOLUME 103.6 fl (80.0-96.0); RED BLOOD COUNT 3.05 10^6/uL (4.00-5.40); WHITE BLOOD COUNT 5.7 10^3/uL (4.0-10.0)
[2020-04-14 07:47] LABS: CALCIUM LEVEL 8.3 MG/DL (8.8-10.2); CREATININE FOR GFR 1.06 MG/DL (0.55-1.30); GLOMERULAR FILTRATION RATE 55.4 (>45); POTASSIUM SERUM 4.4 MEQ/L (3.5-5.1)
[2020-04-14 08:10] LABS: HEMOGLOBIN 10.2 g/dl (12.0-15.5); PLATELET COUNT, AUTOMATED 84 10^3/uL (150-450)
--- NOTE | 2020-04-14 08:16 | ECGEPIP ---
[facility] - ED Test Date: 2020-04-14 Pat Name: JEREMI MALLOY Department: Room: - Gender: Female Drama Director: evelia : [id number] Requested By: TAMAR TOMLIN Order Number: [id number] Reading MD: Mark Warren Measurements Intervals [place] Rate: 80 P: 20 NH: 161 QRS: 8 QRSD: 90 T: 52 QT: 398 QTc: 461 Interpretive Statements SINUS RHYTHM MINIMAL VOLTAGE CRITERIA FOR LVH, CONSIDER NORMAL VARIANT SIMILAR TO 04/06/20 Electronically Signed on 04-14-2020 8:16:21 EST by Mark Warren
[2020-04-14] MEDS: HumaLOG INSULIN (NovoLOG) PER UNIT SC SCH ×4 (08:20→21:00)
[2020-04-14] MEDS: ONDANSETRON 4MG/2ML VIAL IV PRN ×2 (08:22→14:31)
[2020-04-14] MEDS: MORPHINE 2 MG/ML 1ML VIAL (J2270) IV PRN ×4 (08:22→21:13)
[2020-04-14] MEDS: ACYCLOVIR 200 MG CAPSULE PO SCH ×2 (08:58→20:52)
[2020-04-14] MEDS: PANTOPRAZOLE 40MG TAB (PROTONIX) PO SCH ×2 (08:58→20:52)
[2020-04-14] MEDS: allopurinoL 100 MG TAB PO SCH (08:58)
[2020-04-14] MEDS: ATORVASTATIN 10 MG TAB PO SCH (08:58)
[2020-04-14] MEDS ORDERED: ENOXAPARIN 40MG/0.4ML SYRINGE (J1650 PER 10MG) SC SCH (09:00)
--- NOTE | 2020-04-14 11:07 | IPN ---
PROGRESS NOTE DATE: 04/14/2020 SUBJECTIVE: Vicky is seen in the Emergency Room on an interim bed status, was admitted with a syncopal episode. She has a history of myeloma, IgG kappa subtype, COPD, hypertension and NAM. She has recently been diagnosed with an E. coli colitis. On 03/26/2020 she was tested while in the hospital, apparently went home prior to results back, she was ultimately was found to have Shigella like E. coli which was noted to not be 0157 strain. Recommendations are not to treat this with antibiotics. It looks like she was placed on Rocephin and Flagyl on admission for a concern about diverticulitis, antibiotic therapy increases her risk of hemolytic uremic syndrome with this strain of E. coli. She was hypotensive on admission with a syncopal episode. Blood pressure recovered with IV fluids. She is currently in an interim bed in the Emergency Room, complaining of abdominal pain, mainly about the same as she did yesterday. PHYSICAL EXAMINATION: VITAL SIGNS: Blood pressure 131/60, pulse 68, respiratory rate 18, 99% O2 saturation. GENERAL APPEARANCE: Alert, conversant, in no distress. She has chemotherapy induced alopecia. LUNGS: Clear. HEART: Regular rhythm. ABDOMEN: Soft, diffusely mildly tender, no distention. No rebound. EXTREMITIES: No clubbing, cyanosis or edema. LABORATORY DATA: White count is down to 5.7, hemoglobin 10.2, platelets are 84, baseline platelets are in the 80 to 90 range, so that is really not a change. Sodium is 144, potassium 4.4, BUN 21, creatinine is 1.0, glucose is 136. COVID test is negative. CT on admission showed sigmoid wall thickening, adjacent fat stranding and regional diverticula suggesting acute diverticulitis, concern that is more likely colitis from the Shigella like E. coli. IMPRESSION: 1. Shigella like E. coli enteritis (not 0157). Will avoid antibiotic therapy, will stop the Flagyl and Cipro. She has been hydrated. Care is supportive. Will do daily labs to make sure renal function remains stable. Her baseline creatinine looks like it is around 0.8 to 1.0. Daily labs have been ordered and decline in renal function. Will consult Nephrology. 2. Thrombocytopenia, this is chronic, her baseline platelets are around 80. I have discontinued the subcutaneous Heparin and we have ordered mechanical DVT prophylaxis. 3. Multiple myeloma, daily CBCs have been ordered. 4. Hyperlipidemia, continue atorvastatin 10 mg daily. 5. History of gout, continue her Allopurinol 100 mg daily. 6. Diabetes, sliding scale insulin coverage to be continued.
[2020-04-14] MEDS: LR 1,000 ML IV SCH ×2 (11:16→22:44)
[2020-04-14] MEDS: metroNIDAZOLE 500 MG in IV 1 EA IV SCH ×2 (12:06→20:55)
[2020-04-14 14:16] VITALS: BP 115/74
[2020-04-14 14:30] VITALS: BP 120/60
[2020-04-14 14:33] VITALS: BP 100/65
[2020-04-14 14:37] VITALS: BP 98/60
[2020-04-14 20:30] VITALS: BP_SYST 113; BP_SYST 137; BP_DIAS 66; BP_DIAS 69
[2020-04-14 22:00] VITALS: BP 137/66
[2020-04-15 00:30] VITALS: BP_SYST 137; BP_SYST 138; BP_SYST 140; BP_DIAS 76; BP_DIAS 79; BP_DIAS 83
[2020-04-15] MEDS: metroNIDAZOLE 500 MG in IV 1 EA IV SCH (04:27)
[2020-04-15] MEDS ORDERED: cefTRIAXone SOD 2 GM in D5W MINI-BAG PLUS 50 ML IV SCH (05:00)
[2020-04-15 06:00] VITALS: BP 116/79
[2020-04-15 06:27] LABS: HEMATOCRIT 32.3 % (36.0-47.0); HEMOGLOBIN 10.2 g/dl (12.0-15.5); MEAN CORPUSCULAR HEMOGLOBIN 32.9 pg (27.0-33.0); MEAN CORPUSCULAR HGB CONC 31.6 g/dl (32.0-36.5); MEAN CORPUSCULAR VOLUME 104.2 fl (80.0-96.0)
[2020-04-15 06:33] LABS: PLATELET COUNT, AUTOMATED 84 10^3/uL (150-450)
[2020-04-15 06:47] LABS: BLOOD UREA NITROGEN 11 MG/DL (7-18); CALCIUM LEVEL 8.2 MG/DL (8.8-10.2); CARBON DIOXIDE LEVEL 29 MEQ/L (21-32); CHLORIDE LEVEL 111 MEQ/L (98-107); CREATININE FOR GFR 0.58 MG/DL (0.55-1.30); GLOMERULAR FILTRATION RATE > 60.0 (>45); GLUCOSE, FASTING 107 MG/DL (70-100); POTASSIUM SERUM 3.3 MEQ/L (3.5-5.1); SODIUM LEVEL 145 MEQ/L (136-145)
[2020-04-15] MEDS: HumaLOG INSULIN (NovoLOG) PER UNIT SC SCH ×4 (07:30→21:00)
[2020-04-15 08:00] VITALS: BP_SYST 130; BP_SYST 140; BP_SYST 142; BP_DIAS 78; BP_DIAS 82; BP_DIAS 84
[2020-04-15] MEDS: LR 1,000 ML IV SCH (08:06)
[2020-04-15] MEDS: ATORVASTATIN 10 MG TAB PO SCH (08:07)
[2020-04-15] MEDS: PANTOPRAZOLE 40MG TAB (PROTONIX) PO SCH ×2 (08:07→21:38)
[2020-04-15] MEDS: ACYCLOVIR 200 MG CAPSULE PO SCH ×2 (08:07→21:40)
[2020-04-15] MEDS: allopurinoL 100 MG TAB PO SCH (08:07)
[2020-04-15] MEDS: MORPHINE 2 MG/ML 1ML VIAL (J2270) IV PRN ×3 (08:08→21:42)
[2020-04-15 09:24] LABS: MAGNESIUM LEVEL 1.1 MG/DL (1.8-2.4)
--- NOTE | 2020-04-15 10:35 | IPN ---
PROGRESS NOTE DATE: 04/15/2020 SUBJECTIVE: Vicky was admitted with Shigella like E. Coli colitis (not O157). CT on admission suggested diverticulitis. The clinical diagnosis was Shigella like colitis. She is still having diarrhea, diffuse abdominal pain. No blood in the diarrhea. She feels a little better than yesterday. Chronic thrombocytopenia is stable. PHYSICAL EXAMINATION: VITAL SIGNS: Afebrile, vital signs stable, blood pressure 130/78. GENERAL APPEARANCE: Alert, conversant, in no distress. LUNGS: Clear. HEART: Regular rate and rhythm. ABDOMEN: Soft diffusely, mildly tender. Equally tender right and left lower quadrants. EXTREMITIES: No cyanosis, clubbing or edema. LABORATORY DATA: White count 3, hemoglobin 10.2 which is stable from yesterday, platelets 84,000 which is stable from yesterday. Renal function is back to baseline, creatinine 0.5. Potassium 3.3, magnesium 1.7. IMPRESSION: 1. Shigella like E. Coli enteritis: Continue I.V. fluids. Avoid antibiotics if possible as it will increase his risk of this going into hemolytic uremic syndrome. Does not currently have evidence of this. Hemoglobin is stable. Platelets are stable. The renal function has returned to baseline. 2. Hypokalemia: Supplemental potassium has been given. 3. Hypomagnesemia: Supplemental magnesium has been given. 4. Multiple myeloma: Daily CBCs are ordered. 5. Diabetes: She is on sliding scale of insulin with coverage plus sugars have been generally less than 100. 6. Hypokalemia: I.V. potassium runs have been ordered.
[2020-04-15] MEDS: MAG SULF 1GM/100ML (MAG RUN) 1 GM in IV 1 EA IV SCH ×2 (10:42→10:43)
[2020-04-15] MEDS: KCL 10MEQ/100ML SWI (KRUN) 10 MEQ in IV 1 EA IV SCH ×4 (10:42→14:39)
[2020-04-15 12:40] VITALS: BP_SYST 132; BP_SYST 138; BP_SYST 142; BP_DIAS 72; BP_DIAS 80; BP_DIAS 84
--- NOTE | 2020-04-15 13:21 | ECHO ---
DATE OF PROCEDURE: 04/14/2020 Age: 64 Gender: Female Height: 163 cm Weight: 83 kg REFERRING PHYSICIAN: Richar Cortes DO. INDICATION: Syncope. MEASUREMENTS: Aorta 2.8 cm LA 4.1 IV 1.4 LV 3.5 LVPW 1.4 IVC 1.3 Mitral E wave velocity 74 A wave 120 E prime septal 4.6 E prime lateral 6.7 FINDINGS: This study is of good technical quality. Underlying sinus rhythm with narrow QRS complex. Left ventricle is normal size. Mild left ventricular hypertrophy is noted. Estimated left ventricular systolic function is approximately 60-65%. I do not appreciate any segmental wall motion abnormalities. Right ventricle is also normal size and systolic function. Both atria appear at least mildly enlarged. Aortic valve was sclerotic. It was relatively poorly visualized, and on some views I cannot completely rule out that there might be a small vegetation even though it certainly is not convincing. Mitral valve exhibits mitral annular calcifications, but mobility of leaflets is preserved. Tricuspid valve also appears normal. Pulmonic valve was not well seen. No pericardial effusion is noted. Inferior vena cava is normal size. Aortic root is normal. Aortic arch and abdominal aorta were not well visualized. Doppler interrogation reveals mild aortic insufficiency and mild stenosis with mean gradient 15 mmHg and peak gradient 29 mmHg. Mitral valve is functionally competent. There is mild tricuspid insufficiency. Calculated pulmonary artery pressure is in the low 30s corresponding to borderline pulmonary hypertension. Mitral inflow pattern and tissue Doppler imaging of mitral annulus revealed grade 1 diastolic dysfunction. CONCLUSIONS: 1. Study is of good technical quality, underlying sinus rhythm. 2. Normal LV size with mild LVH and preserved LV systolic function, grade 1 diastolic dysfunction. 3. Aortic sclerosis with mild insufficiency and mild stenosis (mean gradient 15 mmHg). Cannot completely rule out the presence of small vegetations even though its seems not overly likely. 4. Degenerative abnormalities of mitral valve but no stenosis or insufficiency. 5. Mild tricuspid insufficiency. 6. Likely normal central venous pressure and borderline pulmonary hypertension. COMMENTS: No findings to explain syncopal event. MTDD
[2020-04-15] MEDS: **hydrALAZINE** 10 MG TAB PO SCH ×2 (16:56→21:40)
[2020-04-15] MEDS: METOPROLOL TART 25 MG TABLET PO SCH ×2 (16:57→21:40)
[2020-04-15 22:00] VITALS: BP 174/79
[2020-04-16] MEDS: ONDANSETRON 4MG/2ML VIAL IV PRN (00:18)
[2020-04-16 03:00] VITALS: BP 170/74
[2020-04-16] MEDS: ACETAMINOPHEN TAB 650MG DOSE (2X325MG) PO PRN ×3 (03:11→19:59)
[2020-04-16 05:57] LABS: HEMATOCRIT 30.3 % (36.0-47.0); HEMOGLOBIN 9.9 g/dl (12.0-15.5); MEAN CORPUSCULAR HEMOGLOBIN 32.8 pg (27.0-33.0); MEAN CORPUSCULAR HGB CONC 32.7 g/dl (32.0-36.5); MEAN CORPUSCULAR VOLUME 100.3 fl (80.0-96.0); RED BLOOD COUNT 3.02 10^6/uL (4.00-5.40); WHITE BLOOD COUNT 3.1 10^3/uL (4.0-10.0)
[2020-04-16 05:58] LABS: PLATELET COUNT, AUTOMATED 88 10^3/uL (150-450)
[2020-04-16 06:00] VITALS: BP 173/81
[2020-04-16 06:21] LABS: BLOOD UREA NITROGEN 4 MG/DL (7-18); CALCIUM LEVEL 8.7 MG/DL (8.8-10.2); CARBON DIOXIDE LEVEL 28 MEQ/L (21-32); CHLORIDE LEVEL 110 MEQ/L (98-107); CREATININE FOR GFR 0.48 MG/DL (0.55-1.30); GLOMERULAR FILTRATION RATE > 60.0 (>45); GLUCOSE, FASTING 128 MG/DL (70-100); MAGNESIUM LEVEL 1.5 MG/DL (1.8-2.4); POTASSIUM SERUM 3.5 MEQ/L (3.5-5.1); SODIUM LEVEL 144 MEQ/L (136-145)
[2020-04-16] MEDS: HumaLOG INSULIN (NovoLOG) PER UNIT SC SCH ×4 (09:29→21:00)
[2020-04-16] MEDS: ACYCLOVIR 200 MG CAPSULE PO SCH ×2 (09:29→21:40)
[2020-04-16] MEDS: **hydrALAZINE** 10 MG TAB PO SCH ×3 (09:30→21:40)
[2020-04-16] MEDS: METOPROLOL TART 25 MG TABLET PO SCH ×2 (09:30→21:41)
[2020-04-16] MEDS: PANTOPRAZOLE 40MG TAB (PROTONIX) PO SCH ×2 (09:30→21:40)
[2020-04-16] MEDS: ATORVASTATIN 10 MG TAB PO SCH (09:30)
[2020-04-16] MEDS: allopurinoL 100 MG TAB PO SCH (09:30)
[2020-04-16] MEDS ORDERED: MAG SULF 1GM/100ML (MAG RUN) 1 GM in IV 1 EA IV ONE (10:15)
--- NOTE | 2020-04-16 10:34 | IPN ---
PROGRESS NOTE DATE: 04/16/2020 SUBJECTIVE: Vicky's blood pressure was up overnight, gave her a headache. Her diarrhea seems to be improving and I feel like her colitis seems to be resolving. Less abdominal pain, less diarrhea. PHYSICAL EXAMINATION: VITAL SIGNS: Blood pressure 166/85, pulse 71, respiratory rate 18, 93% O2 saturation. HEENT: Normal. No facial droop or weakness. LUNGS: Clear. HEART: Regular rhythm without murmur. ABDOMEN: Soft, mildly tender, less tender than yesterday. EXTREMITIES: No peripheral edema. LABORATORY DATA: Blood sugars have been around 100. White count 3.1, hemoglobin 9.9, platelets 88,000. Hemoglobin stable. Platelets are stable. Renal function is stable. Creatinine is 0.48. Potassium is 5.3. Magnesium is 1.5. IMPRESSION: 1. E. coli enteritis, seems to be resolving, trying to avoid IV antibiotics if possible as it increases risk of hemolytic uremic syndrome. Her electrolytes are still affected by the diarrhea so we are going her both potassium and magnesium runs today. 2. Hypertension, medications are adjusted. She is probably not absorbing her antihypertensive as well with the decreased transit time from the diarrhea.
[2020-04-16] MEDS: KCL 10MEQ/100ML SWI (KRUN) 10 MEQ in IV 1 EA IV SCH ×4 (11:13→15:45)
[2020-04-16] MEDS: LOSARTAN 50MG TABLET PO SCH (11:16)
[2020-04-16 14:00] VITALS: BP 155/74
[2020-04-16] MEDS: MORPHINE 2 MG/ML 1ML VIAL (J2270) IV PRN (21:37)
[2020-04-16 22:00] VITALS: BP 158/84
[2020-04-17] MEDS: ACETAMINOPHEN TAB 650MG DOSE (2X325MG) PO PRN ×3 (01:26→19:38)
[2020-04-17 06:00] VITALS: BP 176/82
[2020-04-17 06:24] LABS: HEMATOCRIT 28.6 % (36.0-47.0); HEMOGLOBIN 9.3 g/dl (12.0-15.5); MEAN CORPUSCULAR HEMOGLOBIN 32.4 pg (27.0-33.0); MEAN CORPUSCULAR HGB CONC 32.5 g/dl (32.0-36.5); MEAN CORPUSCULAR VOLUME 99.7 fl (80.0-96.0); PLATELET COUNT, AUTOMATED 89 10^3/uL (150-450); RED BLOOD COUNT 2.87 10^6/uL (4.00-5.40); WHITE BLOOD COUNT 2.4 10^3/uL (4.0-10.0)
[2020-04-17 06:47] LABS: BLOOD UREA NITROGEN 2 MG/DL (7-18); CALCIUM LEVEL 8.8 MG/DL (8.8-10.2); CARBON DIOXIDE LEVEL 28 MEQ/L (21-32); CHLORIDE LEVEL 111 MEQ/L (98-107); CREATININE FOR GFR 0.49 MG/DL (0.55-1.30); GLOMERULAR FILTRATION RATE > 60.0 (>45); GLUCOSE, FASTING 88 MG/DL (70-100); MAGNESIUM LEVEL 1.3 MG/DL (1.8-2.4); POTASSIUM SERUM 3.3 MEQ/L (3.5-5.1); SODIUM LEVEL 145 MEQ/L (136-145)
[2020-04-17] MEDS: HumaLOG INSULIN (NovoLOG) PER UNIT SC SCH (07:03)
--- NOTE | 2020-04-17 09:45 | IPN ---
PROGRESS NOTE DATE: 04/17/2020 SUBJECTIVE: Vicky still has excessive diarrhea. She again is hypokalemic and hypomagnesemic. She has intermittent headaches. Her blood pressure is only mildly above patient goal range (it should be noted that nursing staff finds that manual blood pressure measurement is more accurate with her and DINAMAP is reading about 20 mm higher than the more accurate blood pressure cuff measurement). No rectal bleeding, fever or chills. PHYSICAL EXAMINATION: VITAL SIGNS: Afebrile, blood pressure 158/84. GENERAL APPEARANCE: Alert, conversant, in no distress. LUNGS: Clear. HEART: Regular rate and rhythm. ABDOMEN: Soft, nontender. EXTREMITIES: No peripheral edema. BACK: No CVA tenderness. LABORATORY DATA: White count is 240,000, hemoglobin 9.3, platelets are 89, sodium 142, potassium is 3.3, BUN 2, creatinine 0.4. Magnesium 1.3. Blood sugar is in the 200 range. IMPRESSION: 1. E. coli enteritis. Diarrhea seems to slowly be getting better, avoid antibiotics if necessary. He is at increased risk of hemolytic uremic syndrome. 2. Hypomagnesemia/hypokalemia, intravenous replacement has been ordered. 3. Hypertension. Blood pressure is only slightly above outpatient goal range. We just restarted her Losartan yesterday. She is on metoprolol as well as hydralazine. 4. Hyperlipidemia, continue her atorvastatin. 5. Diabetes. She is on fingersticks, requiring no coverage so I am discontinuing them as she has not had any insulin needs to date.
[2020-04-17] MEDS: ACYCLOVIR 200 MG CAPSULE PO SCH ×2 (10:15→21:05)
[2020-04-17] MEDS: PANTOPRAZOLE 40MG TAB (PROTONIX) PO SCH ×2 (10:15→21:05)
[2020-04-17] MEDS: allopurinoL 100 MG TAB PO SCH (10:16)
[2020-04-17] MEDS: METOPROLOL TART 25 MG TABLET PO SCH ×2 (10:16→21:05)
[2020-04-17] MEDS: ATORVASTATIN 10 MG TAB PO SCH (10:16)
[2020-04-17] MEDS: MAG SULF 1GM/100ML (MAG RUN) 1 GM in IV 1 EA IV SCH ×2 (10:17→11:58)
[2020-04-17] MEDS: LOSARTAN 50MG TABLET PO SCH (10:17)
[2020-04-17] MEDS: **hydrALAZINE** 10 MG TAB PO SCH ×3 (10:17→21:04)
[2020-04-17] MEDS: KCL 10MEQ/100ML SWI (KRUN) 10 MEQ in IV 1 EA IV SCH ×6 (13:07→19:39)
[2020-04-17 20:40] VITALS: BP 182/92
[2020-04-17 22:00] VITALS: BP 166/87
[2020-04-17] MEDS ORDERED: METOCLOPRAMIDE INJ 10MG/2ML VIAL (J2765 PER 1) IV ONE (23:45)
[2020-04-18 03:34] VITALS: BP 160/94
[2020-04-18 06:00] VITALS: BP 194/93
[2020-04-18 06:37] LABS: HEMATOCRIT 30.2 % (36.0-47.0); HEMOGLOBIN 10.3 g/dl (12.0-15.5); MEAN CORPUSCULAR HEMOGLOBIN 33.6 pg (27.0-33.0); MEAN CORPUSCULAR HGB CONC 34.1 g/dl (32.0-36.5); MEAN CORPUSCULAR VOLUME 98.4 fl (80.0-96.0); PLATELET COUNT, AUTOMATED 100 10^3/uL (150-450); RED BLOOD COUNT 3.07 10^6/uL (4.00-5.40); WHITE BLOOD COUNT 2.6 10^3/uL (4.0-10.0)
[2020-04-18 06:52] LABS: BLOOD UREA NITROGEN 2 MG/DL (7-18); CALCIUM LEVEL 8.5 MG/DL (8.8-10.2); CARBON DIOXIDE LEVEL 27 MEQ/L (21-32); CHLORIDE LEVEL 110 MEQ/L (98-107); CREATININE FOR GFR 0.38 MG/DL (0.55-1.30); GLOMERULAR FILTRATION RATE > 60.0 (>45); GLUCOSE, FASTING 84 MG/DL (70-100); MAGNESIUM LEVEL 1.4 MG/DL (1.8-2.4); POTASSIUM SERUM 3.1 MEQ/L (3.5-5.1); SODIUM LEVEL 145 MEQ/L (136-145)
[2020-04-18 07:00] VITALS: BP 176/82
[2020-04-18] MEDS: ACYCLOVIR 200 MG CAPSULE PO SCH ×2 (09:33→20:06)
[2020-04-18] MEDS: ATORVASTATIN 10 MG TAB PO SCH (09:33)
[2020-04-18] MEDS: PANTOPRAZOLE 40MG TAB (PROTONIX) PO SCH ×2 (09:33→20:08)
[2020-04-18] MEDS: LOSARTAN 50MG TABLET PO SCH (09:34)
[2020-04-18] MEDS: METOPROLOL TART 25 MG TABLET PO SCH ×2 (09:35→20:07)
[2020-04-18] MEDS: allopurinoL 100 MG TAB PO SCH (09:36)
[2020-04-18] MEDS: **hydrALAZINE** 10 MG TAB PO SCH ×3 (09:36→20:08)
[2020-04-18] MEDS ORDERED: amLODIPine 5 MG TAB PO ONE (10:30)
[2020-04-18] MEDS ORDERED: KCL 10MEQ/100ML SWI (KRUN) 10 MEQ in IV 1 EA IV SCH (11:00)
--- NOTE | 2020-04-18 12:06 | IPN ---
PROGRESS NOTE DATE: 04/18/2020 Vicky's diarrhea seems to be slowly improving, less volume, less frequent. She still is hypokalemic and hypomagnesemic. Blood pressure is still mildly elevated as well. PHYSICAL EXAMINATION: Afebrile. Blood pressure 152/86. It was as high 194/93 this morning. Alert, conversant. No distress. Lungs clear. Heart regular rate and rhythm. Abdomen soft, nontender. No peripheral edema. LABORATORY DATA: Potassium 3.1, magnesium 1.4. White count is 26, hemoglobin 10.3, platelets 100. Creatinine 0.38. PLAN: Today we again replace her potassium and magnesium intravenously. I would like to avoid potassium runs, but with her diarrhea I think oral absorption is decreased. Her blood pressure is still elevated. I have added amlodipine 5 mg daily to her regimen. Anticipate discharge tomorrow.
[2020-04-18] MEDS: MAG SULF 1GM/100ML (MAG RUN) 1 GM in IV 1 EA IV SCH ×2 (12:43→12:44)
[2020-04-18 14:00] VITALS: BP 167/81
[2020-04-18] MEDS: ACETAMINOPHEN TAB 650MG DOSE (2X325MG) PO PRN ×2 (14:00→20:06)
[2020-04-18] MEDS: KCL 10MEQ/100ML SWI (KRUN) 10 MEQ in IV 1 EA IV SCH ×5 (14:58→19:49)
[2020-04-18 22:00] VITALS: BP 142/82
[2020-04-18] MEDS: MORPHINE 2 MG/ML 1ML VIAL (J2270) IV PRN (23:34)
[2020-04-19] MEDS: MORPHINE 2 MG/ML 1ML VIAL (J2270) IV PRN (03:46)
[2020-04-19] MEDS: ACETAMINOPHEN TAB 650MG DOSE (2X325MG) PO PRN ×3 (04:32→22:11)
[2020-04-19] MEDS ORDERED: amLODIPine 5 MG TAB PO ONE (05:15)
[2020-04-19 06:00] VITALS: BP 150/90
[2020-04-19 06:40] LABS: BLOOD UREA NITROGEN 4 MG/DL (7-18); CALCIUM LEVEL 8.5 MG/DL (8.8-10.2); CARBON DIOXIDE LEVEL 28 MEQ/L (21-32); CHLORIDE LEVEL 108 MEQ/L (98-107); CREATININE FOR GFR 0.57 MG/DL (0.55-1.30); GLOMERULAR FILTRATION RATE > 60.0 (>45); GLUCOSE, FASTING 93 MG/DL (70-100); MAGNESIUM LEVEL 1.6 MG/DL (1.8-2.4); POTASSIUM SERUM 3.6 MEQ/L (3.5-5.1); SODIUM LEVEL 143 MEQ/L (136-145)
[2020-04-19] MEDS: amLODIPine 5 MG TAB PO SCH ×2 (07:12→23:21)
[2020-04-19] MEDS: allopurinoL 100 MG TAB PO SCH (09:40)
[2020-04-19] MEDS: PANTOPRAZOLE 40MG TAB (PROTONIX) PO SCH ×2 (09:40→22:12)
[2020-04-19] MEDS: ACYCLOVIR 200 MG CAPSULE PO SCH ×2 (09:40→22:11)
[2020-04-19] MEDS: ATORVASTATIN 10 MG TAB PO SCH (09:40)
[2020-04-19] MEDS: LOSARTAN 50MG TABLET PO SCH (09:44)
[2020-04-19] MEDS: METOPROLOL TART 25 MG TABLET PO SCH ×2 (09:44→22:13)
[2020-04-19] MEDS: **hydrALAZINE** 10 MG TAB PO SCH ×3 (09:45→22:13)
[2020-04-19] MEDS ORDERED: MAG SULF 1GM/100ML (MAG RUN) 1 GM in IV 1 EA IV ONE (11:00)
[2020-04-19] MEDS: POTASSIUM CHLORIDE 10 MEQ SR TABLET PO SCH ×3 (11:08→22:12)
[2020-04-19 14:00] VITALS: BP 129/78
--- NOTE | 2020-04-19 19:19 | IPN ---
PROGRESS NOTE DATE: 04/19/2020 SUBJECTIVE: Vicky is having some persisting diarrhea that is better than yesterday, but still present. Blood pressures are better controlled as well. She does not feel she is strong enough to go home yet. OBJECTIVE: VITAL SIGNS: Blood pressure 122/72, afebrile. LUNGS: Clear. HEART: Regular rhythm. ABDOMEN: Soft and nontender. No masses. EXTREMITIES: No peripheral edema. LABORATORY DATA: White count 2.6, hemoglobin 10.3, platelets 100,000. Sodium 143, potassium 3.6, magnesium 1.6, BUN 4, creatinine 0.5. IMPRESSION: 1. Escherichia coli colitis. This is slowly getting better. We have successfully avoided antibiotic therapy. 2. Hypokalemia/hypomagnesemia. Oral potassium and intravenous magnesium has been ordered. 3. Hypertension. Blood pressure is under better control. PLAN: Will try to get her up and ambulating today and then hope to discharge tomorrow.
[2020-04-19 22:00] VITALS: BP 164/83
[2020-04-20 00:21] VITALS: BP 140/86
[2020-04-20 06:00] VITALS: BP 150/96
[2020-04-20 06:42] LABS: HEMATOCRIT 31.8 % (36.0-47.0); HEMOGLOBIN 10.6 g/dl (12.0-15.5); MEAN CORPUSCULAR HEMOGLOBIN 33.5 pg (27.0-33.0); MEAN CORPUSCULAR HGB CONC 33.3 g/dl (32.0-36.5); MEAN CORPUSCULAR VOLUME 100.6 fl (80.0-96.0); PLATELET COUNT, AUTOMATED 105 10^3/uL (150-450); RED BLOOD COUNT 3.16 10^6/uL (4.00-5.40); WHITE BLOOD COUNT 2.8 10^3/uL (4.0-10.0)
[2020-04-20 07:09] LABS: BLOOD UREA NITROGEN 8 MG/DL (7-18); CALCIUM LEVEL 8.4 MG/DL (8.8-10.2); CARBON DIOXIDE LEVEL 26 MEQ/L (21-32); CHLORIDE LEVEL 112 MEQ/L (98-107); CREATININE FOR GFR 0.55 MG/DL (0.55-1.30); GLOMERULAR FILTRATION RATE > 60.0 (>45); GLUCOSE, FASTING 97 MG/DL (70-100); MAGNESIUM LEVEL 1.6 MG/DL (1.8-2.4); POTASSIUM SERUM 4.2 MEQ/L (3.5-5.1); SODIUM LEVEL 145 MEQ/L (136-145)
[2020-04-20 09:39] VITALS: BP 160/90
[2020-04-20] MEDS: LOSARTAN 50MG TABLET PO SCH (09:39)
[2020-04-20] MEDS: ACETAMINOPHEN TAB 650MG DOSE (2X325MG) PO PRN (09:39)
[2020-04-20] MEDS: METOPROLOL TART 25 MG TABLET PO SCH (09:40)
[2020-04-20] MEDS: allopurinoL 100 MG TAB PO SCH (09:40)
[2020-04-20] MEDS: PANTOPRAZOLE 40MG TAB (PROTONIX) PO SCH (09:40)
[2020-04-20] MEDS: ATORVASTATIN 10 MG TAB PO SCH (09:40)
[2020-04-20] MEDS: POTASSIUM CHLORIDE 10 MEQ SR TABLET PO SCH (09:40)
[2020-04-20] MEDS: **hydrALAZINE** 10 MG TAB PO SCH (09:40)
[2020-04-20] MEDS: ACYCLOVIR 200 MG CAPSULE PO SCH (09:40)
--- NOTE | 2020-04-20 11:15 | DSES ---
DISCHARGE SUMMARY DATE OF ADMISSION: 04/14/2020 DATE OF DISCHARGE: / / PRINCIPAL DIAGNOSIS: Colitis secondary to Shigella-like Escherichia coli. SECONDARY DIAGNOSES: 1. Hypokalemia. 2. Hypomagnesemia. 3. Hypertension. 4. Pancytopenia. PRINCIPAL PROCEDURE: Echocardiogram: Aortic sclerosis with mild stenosis, mean gradient 15 mm, grade 1 diastolic dysfunction, borderline pulmonary hypertension, ejection fraction 60-65%. BRIEF HISTORY: The patient was admitted with hypotension. CT scan was done and suggested acute diverticulitis. Apparently it was not noted that the patient had had an outpatient GI panel done that was positive for Shigella-like E. coli (not 0157). HOSPITAL COURSE: She was admitted to medical bed. I discontinued the antibiotics as they can increase the risk of E. coli colitis going on to hemolytic uremic syndrome. She had persistent diarrhea that slowly gradually abated. She had hypokalemia and hypomagnesemia treated with intravenous replacement on daily basis. Her CBCs remained stable. She developed some problems with hypertension during the hospitalization, meds were adjusted and blood pressure came under good control. On day of discharge she is ready to go home. She has no headache. Her blood pressure has been running 140s to 160s systolic. She is alert and conversant and no distress. Lungs clear. Abdomen soft, nontender. No peripheral edema. LABS: Today white count is 2.8, hemoglobin 10.6, platelets 105. Sodium 140, potassium 4.2, BUN 8, creatinine 0.5, glucose 97, magnesium 1.6. COVID test was negative. DISPOSITION: Discharged home improved in stable condition. Follow up with primary care provider Dr. Scales in one week. Dr. Scales and I were in communication about the hospitalization in the first phase of her admission. DISCHARGE MEDICATIONS: 1. Acyclovir 40 mg twice daily. 2. Allopurinol 100 mg daily. 3. Atorvastatin 10 mg daily. 4. Colace as needed. 5. Hydralazine 20 mg three times a day. 6. Losartan 100 mg daily. 7. Lopressor 25 mg twice daily. 8. Protonix 40 mg twice daily. 9. Potassium chloride 20 mEq daily. 10. Promethazine 25 mg every 12 hours PRN for nausea. 11. Torsemide 40 mg daily. At the time of this dictation there are no pending labs.
== END 2020-04-20 13:05 | disposition home health service (06) | DRG 372 ==
LOC: M ED 01:06 → M ED INP 03:12 → M MSPAV 14:17
PROVIDERS: ADMIT Internal Medicine; ATTEND Family Medicine
DX: A04.4 Other intestinal Escherichia coli infections (principal); C90.00 Multiple myeloma not having achieved remission; Z94.84 Stem cells transplant status; K57.32 Diverticulitis of large intestine without perforation or abscess without bleeding; D61.818 Other pancytopenia; J44.9 Chronic obstructive pulmonary disease, unspecified; M79.7 Fibromyalgia; I10 Essential (primary) hypertension; G43.909 Migraine, unspecified, not intractable, without status migrainosus; G47.33 Obstructive sleep apnea (adult) (pediatric); E83.42 Hypomagnesemia; M10.9 Gout, unspecified; E87.6 Hypokalemia; M06.9 Rheumatoid arthritis, unspecified; I95.9 Hypotension, unspecified; E11.9 Type 2 diabetes mellitus without complications; F43.10 Post-traumatic stress disorder, unspecified; F32.9 Major depressive disorder, single episode, unspecified; F41.9 Anxiety disorder, unspecified; E78.5 Hyperlipidemia, unspecified; D69.6 Thrombocytopenia, unspecified; Z90.49 Acquired absence of other specified parts of digestive tract; Z87.891 Personal history of nicotine dependence; Z87.442 Personal history of urinary calculi; Z20.822 Contact with and (suspected) exposure to COVID-19; Z79.899 Other long term (current) drug therapy; Z88.0 Allergy status to penicillin; Z88.1 Allergy status to other antibiotic agents; Z88.6 Allergy status to analgesic agent; Z88.8 Allergy status to other drugs, medicaments and biological substances

== ENCOUNTER → 2020-06-11 | Outpatient (REF) | payer MEDICARE, MEDICAID ==
[~2020-06-11] MED LIST changes: +ACYC1TAB PO; -ACYC400T PO; -AMIT10TA PO; +AMIT10TA7 PO; +ATOR1TAB19 PO; +FLUD0.1T PO; +HM S0.65 NARES; +METO25TA4 PO; -PEG1POW PO; +POLY17PO18 PO
[2020-06-11 16:16] LABS: FREE T4 1.03 NG/DL (0.76-1.46); THYROID STIMULATING HORMONE 0.963 uIU/ML (0.358-3.740); URIC ACID 7.1 MG/DL (2.6-6.0)
[2020-06-11 17:43] LABS: HEMOGLOBIN A1c 5.6 %
== END ==
LOC: M SFHCPLAZ 13:21
PROVIDERS: ATTEND Family Medicine
DX: R68.89 Other general symptoms and signs (principal); E11.9 Type 2 diabetes mellitus without complications; M10.9 Gout, unspecified
CPT/HCPCS: 36415; 83036; 84439; 84443; 84550; G0463

== ENCOUNTER → 2020-08-09 | Outpatient (CLI) | payer MEDICAID, MEDICARE ==
[~2020-08-09] MED LIST changes: +CYMB1CAP5 PO; +ECOT81TA5 PO; +REVL5CAP2
== END ==
LOC: M LABSMTC 10:23
PROVIDERS: ATTEND Anesthesiology
DX: Z01.812 Encounter for preprocedural laboratory examination (principal); Z11.52 Encounter for screening for COVID-19

== ENCOUNTER 2020-08-14 12:26 | Day surgery (SDC) | payer MEDICAID, MEDICARE ==
[~2020-08-14] VITALS: Ht 162.6 cm; Wt 84.4 kg
[~2020-08-14 12:26] MED LIST changes: +LIDOCAINE 2% 100MG/5ML SDV (FOR ANES.) As Ordered ONE; +NS 1,000 ML IV ONE; +propofoL 200 MG/20 ML VIAL As Ordered ONE
[2020-08-14] MEDS ORDERED: propofoL 200 MG/20 ML VIAL As Ordered ONE (15:17)
[2020-08-14] MEDS ORDERED: PHENYLephrine 500MCG 5ML (100MCG/ML) SYRINGE As Ordered ONE (15:34)
[2020-08-14] MEDS ORDERED: GLYCOPYRROLATE INJ 0.2 MG/ML 2 ML VIAL As Ordered ONE (15:36)
[2020-08-14] MEDS ORDERED: ePHEDrine SULFATE 25 MG/5 ML(5MG/ML) SYRINGE As Ordered ONE (15:36)
--- NOTE | 2020-08-14 15:43 | ROOR ---
Patient Name: Vicky Gooden Procedure Date: 08/14/2020 3:04 PM Date of : 1955 Age: 64 Room: [facility] Gender: Female Note Status: Finalized Procedure: Colonoscopy Indications: Clinically significant diarrhea of unexplained origin, Change in bowel habits Providers: Valdemar Rodriguez MD Referring MD: Jaye Scales MD Requesting Provider: Medicines: Monitored Anesthesia Care Complications: No immediate complications. Procedure: Pre-Anesthesia Assessment: - The heart rate, respiratory rate, oxygen saturations, blood pressure, adequacy of pulmonary ventilation, and response to care were monitored throughout the procedure. The Colonoscope was introduced through the anus and advanced to 5 cm into the ileum. The colonoscopy was performed without difficulty. The patient tolerated the procedure well. The quality of the bowel preparation was good. Findings: The perianal and digital rectal examinations were normal. Multiple small and large-mouthed diverticula were found in the sigmoid colon. There was moderate myomatous hypertrophy with mild narrowing of the colon in association with the diverticular opening especially at about 30 cm from verge. Ibis-diverticular erythema was seen. Biopsies were taken with a cold forceps for histology. Biopsies were taken with a cold forceps for histology. The exam was otherwise without abnormality on direct and retroflexion views. Biopsies for histology were taken with a cold forceps for evaluation of microscopic colitis. Impression: - Diverticulosis in the sigmoid colon. There was myomatous hypertrophy and mild to moderate narrowing of the colon in association with the diverticular opening. Ibis-diverticular erythema was seen at 35 cm from verge. Biopsied. - Small internal hemorrhoids. - The examination was otherwise normal on direct and retroflexion views. - Biopsies were taken with a cold forceps for evaluation of microscopic colitis. Recommendation: - Use the combination of an OTC fiber product (for example Citrucel, Fibercon, Konsyl or Metamucil) PLUS Miralax 1 capful (17 grams) in 8 ounces of water PO daily. - Telephone endoscopist for pathology results in 2 weeks. Procedure Code(s): --- Professional --- 77872, Colonoscopy, flexible; with biopsy, single or multiple Diagnosis Code(s): --- Professional --- K57.30, Diverticulosis of large intestine without perforation or abscess without bleeding R19.4, Change in bowel habit R19.7, Diarrhea, unspecified CPT copyright 2019 [employer]. All rights reserved. The codes documented in this report are preliminary and upon vp analytics review may be revised to meet current compliance requirements. Valdemar Rodriguez MD Valdemar Rodriguez MD 08/14/2020 3:42:28 PM Electronically signed by Valdemar Rodriguez MD Number of Addenda: 0 Note Initiated On: 08/14/2020 3:04 PM Estimated Blood Loss: Estimated blood loss: none.
[2020-08-14 16:00] VITALS: BP 116/90
== END 2020-08-14 16:06 | disposition home or self-care (01) ==
LOC: M OPP 12:26
PROVIDERS: ATTEND Internal Medicine Gastroenterology
DX: K52.9 Noninfective gastroenteritis and colitis, unspecified (principal); K57.30 Diverticulosis of large intestine without perforation or abscess without bleeding; K64.8 Other hemorrhoids; R19.4 Change in bowel habit; Z79.82 Long term (current) use of aspirin; Z79.899 Other long term (current) drug therapy; Z88.0 Allergy status to penicillin; Z88.1 Allergy status to other antibiotic agents; Z88.8 Allergy status to other drugs, medicaments and biological substances
CPT/HCPCS: 45380; 88305; J2370

== ENCOUNTER → 2020-09-08 | Outpatient (CLI) | payer MEDICARE, OTHER ==
[~2020-09-08] MED LIST changes: -LIDOCAINE 2% 100MG/5ML SDV (FOR ANES.) As Ordered ONE; -NS 1,000 ML IV ONE; +PROC10TA4; -propofoL 200 MG/20 ML VIAL As Ordered ONE
--- NOTE | 2020-09-08 15:33 | REP ---
INDICATION: MYELOMA, BONE PAIN, BONE SURVEY. COMPARISON: Multiple TECHNIQUE: Standard helical technique without intravenous contrast or oral bowel preparatory contrast FINDINGS: Limited evaluation of the solid intra-abdominal organs show no significant changes from the prior exam. There is mild hepatosplenomegaly status quo. Surgical clips are again seen in the gallbladder fossa from previous cholecystectomy. Limited evaluation of the pancreas, adrenal glands, and kidneys show no significant changes from the prior exam. Limited evaluation of the abdominal aorta and para-aortic regions show no significant changes. There is no adenopathy. There is no free fluid or free air. Limited evaluation of the bowel loops shows chronic diverticular changes with diverticulosis and evidence of pericolonic mesenteric scarring in the sigmoid colon region. There is a large hiatal hernia. Bone window technique throughout the examination again shows multifocal lytic lesions in the axial skeleton which are numerous. New tiny lytic lesions cannot be ruled out. There is an unchanged grade 2 T12 compression fracture. IMPRESSION: 1. There are chronic diverticular changes as described above. The changes in the mesentery adjacent to the sigmoid colon are consistent with chronic scarring, however, mild acute diverticulitis superimposed upon chronic diverticular changes should be clinically evaluated for. 2. Skeletal evidence of multiple myeloma as described above. 3. Other findings as described. <Electronically signed by Saravanan Cheema > 09/08/20 [id number]
--- NOTE | 2020-09-08 15:43 | REP ---
INDICATION: MYELOMA, BONE PAIN, BONE SURVEY COMPARISON: Multiple the latest 01/06/2016 TECHNIQUE: Standard helical technique without intravenous contrast administration FINDINGS: There is no mediastinal or hilar adenopathy. There are no pleural or pericardial effusions. Bone window technique throughout the examination shows a new lytic lesion in the vertebral body of T2 There is an unchanged incidental vertebral body hemangioma at T5. Evaluation of the lung joshi shows scattered asymmetric and ground-glass opacities centrally unchanged. There is an incidental calcified granuloma in the left upper lobe. No new abnormal nodules, masses, or opacities have developed. IMPRESSION: 1. No acute intrathoracic disease. 2. Skeletal disease, as described above consistent with the patient's diagnosis of multiple myeloma. <Electronically signed by Saravanan Cheema > 09/08/20 [id number]
--- NOTE | 2020-09-08 16:04 | REPVR ---
PROCEDURE INFORMATION: Exam: CT Neck Without Contrast Exam date and time: 09/08/2020 3:03 PM Age: 64 years old Clinical indication: Condition or disease; Cancer; Other: Myeloma; Additional info: Myeloma, bone pain, bone survey TECHNIQUE: Imaging protocol: Computed tomography images of the neck without contrast. Radiation optimization: All CT scans at this facility use at least one of these dose optimization techniques: automated exposure control; mA and/or kV adjustment per patient size (includes targeted exams where dose is matched to clinical indication); or iterative reconstruction. COMPARISON: NM Bone Scan Whole Body 02/25/2019 9:52 AM FINDINGS: Limitations: Evaluation of the neck is limited without IV contrast. Nasopharynx: Unremarkable. Oropharynx: Unremarkable. No significant tonsillar enlargement. Hypopharynx: Unremarkable. Larynx: Unremarkable. Normal epiglottis. Retropharyngeal space: Unremarkable. Submandibular/Parotid glands: Normal. Glands are normal in size. Thyroid: Normal. No enlarged or calcified nodules. Lymph nodes: Unremarkable. No lymphadenopathy. Trachea: Visualized trachea is unremarkable. Lungs: Unremarkable as visualized. Bones/joints: Bone mineralization is decreased, suggestive of osteopenia. Multiple small lytic lesions are noted within the spine, likely related to the history of multiple myeloma. Vasculature: Atherosclerotic calcifications are present at the carotid bifurcations. Soft tissues: Unremarkable. No significant soft tissue swelling. IMPRESSION: Multiple small lytic lesions are noted within the spine, likely related to the history of multiple myeloma. Electronically signed by: Warren Flores On 09/08/2020 16:04:14 PM
== END ==
LOC: M RAD 14:45
PROVIDERS: ATTEND Internal Medicine Hematology & Oncology
DX: C90.00 Multiple myeloma not having achieved remission (principal)

== ENCOUNTER → 2020-09-23 | Outpatient (CLI) | payer MEDICARE, OTHER, MEDICAID ==
[2020-09-23 11:49] LABS: HEMOGLOBIN A1c 6.1 %
[2020-09-23 12:14] LABS: CHOLESTEROL RISK RATIO 5.459 (<5)
[2020-09-23 12:38] LABS: CREATININE, URINE 95.3 MG/DL; MALB URINE SIEMENS 26.5 MG/L; MAU/CREAT RATIO 27.8 MCG/MG (0.0-30.0)
== END ==
LOC: M PLALAB 08:53
PROVIDERS: ATTEND Family Medicine
DX: E78.2 Mixed hyperlipidemia (principal); E11.9 Type 2 diabetes mellitus without complications

== ENCOUNTER → 2020-09-28 | Outpatient (CLI) | payer MEDICARE, OTHER ==
--- NOTE | 2020-09-28 12:45 | REP ---
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 Status post chemotherapy and autologous transplant. COMPARISON: No comparison PET-CT study. Comparison CT neck chest abdomen pelvis September 08, 2020.. TECHNIQUE: Forty-six minutes following the intravenous injection of a 8.85 mCi dose of F-18 FDG, three-dimensional PET scintigraphy is acquired from the skull base to the proximal thighs. Triplanar noncontrast CT scanning is acquired through the same anatomic range for attenuation correction, and image registration with scan parameters optimized to minimize radiation exposure to the patient. PET scintigraphy and CT datasets were fused and displayed on a workstation with multiplanar and projection display capability. FINDINGS: Head and neck soft tissues are unremarkable. No evidence of hypermetabolic adenopathy. There is no abnormal pulmonary parenchymal hypermetabolic uptake. No hypermetabolic adnii uptake is seen in the mediastinum or either hilus. In the abdomen and pelvis there is normal hepatic, splenic, gastrointestinal, and genitourinary FDG accumulation. No abnormal hypermetabolic uptake is seen in the abdomen. No abnormal skeletal hypermetabolic uptake focus is appreciated scintigraphically. The visible radiolucent lesion seen in the L4 vertebral body and the L2 vertebral body on CT abdomen September 08, 2020 are again visualized on today's CT but no hypermetabolic uptake is seen at these sites or elsewhere in the axial skeleton. IMPRESSION: Negative PET scintigraphy. <Electronically signed by Storm Gomes > 09/28/20 [id number]
== END ==
LOC: M PLARAD 09:06
PROVIDERS: ATTEND Internal Medicine Hematology & Oncology
DX: C90.01 Multiple myeloma in remission (principal)
CPT/HCPCS: 78815; A9552

== ENCOUNTER 2021-02-22 14:19 | Inpatient (IN) | payer MEDICARE, OTHER ==
[~2021-02-22] VITALS: Ht 165.1 cm; Wt 91.7 kg
[~2021-02-22 14:19] MED LIST changes: -KLOR10TA76 PO; +OXYC1TAB23 PO; +POTA-136 PO
--- OUTSIDE RECORDS SUMMARY | 2021-02-22 14:24 | CCD ---
Author Author [facility] Organization [facility] Address Unknown Phone Unavailable Care Team Providers Care Chin Strap Sewer Name Role Phone Jaye Scales Unavailable PROBLEMS Type Condition ICD9-CM Code WNV10-HD Code Onset Dates Condition S tatus W/U Status Risk SNOMED Code Notes Problem Gastro-esophageal reflux disease without esophagitis K21.9 Active confirmed 871553135 Problem Obstructive sleep apnea (adult) (pediatric) G47.33 Active confirmed 73217395 Problem Anxiety F41.9 Active confirmed 13235626 Problem Chronic obstructive pulmonary disease, unspecified J44.9 Active confirmed 02477615 Problem Other chronic pain G89.29 Active confirmed 8 4152009 Problem Hypomagnesemia E83.42 Active confirmed 19532 5004 Problem Essential (primary) hypertension I10 Active conf irmed 01409041 Problem Allergic rhinitis, unspecifi ed allergic rhinitis trigger, unspecified rhinitis seasonality J30.9 Active confirmed 46189089 Problem Controlled type 2 diabetes m ellitus without complication, without long- term current use of insulin E11.9 Active confirmed 31 1783633 Problem Osteoarthritis of spine with radiculopathy, lumbar region M47.26 Active confirmed 989858986 Problem Varicose veins with pain I83.819 Active confirmed 223638013 Problem Gout, unspecified cause, unspecified chronicity, unspecified site M10.9 Active confirmed 73215640 Problem Psychophysiological insomnia F51.04 Active confirme d 802966472 Problem Rheumatoid arthritis involvi ng multiple sites with positive rheumatoid factor M05.79 Active confirmed 533814613 Problem Other obesity E66.8 Active confirmed 224319 001 Problem Neuropathy G62.9 Active confirmed 946515422 Problem Fibromyalgia M79.7 Active confirmed 4196048 05 Problem Mixed hyperlipidemia E78.2 Active confirmed 655531455 Problem Vitamin D deficiency, unspecified E55.9 Active con firmed 55164216 Problem Moderate episode of recurrent major depressive disorder F33.1 Active confirmed 349616622 Problem Tension headache G44.209 Active confirmed 39 1793128 Problem Multiple myeloma not having achieved remission C90 .00 Active confirmed 218810055 Problem Psychophysiologic insomnia F51.04 Active confirmed 887647901 ALLERGIES Allergen (clinical drug ingredient) Drug/Non Drug Allergy do cumented on EMR Reaction Allergy Type Onset Date Status acetaminophen / oxycodone Percocet(ND Code:[address]-41) facia l swelling Drug Allergy Active ibuprofen IBU(NDC Code:[address]-21) Kidneys Drug Allergy Active tramadol Tramadol HCl(ND Code:[address]-55) Throat swelling Drug Allergy Active amitriptyline Amitriptyline HCl(NDC Code:[address]-66) Throat swelling Drug Allergy Active ciprofloxacin Cipro(ND Code:[address]-16) Hives Drug Allergy Active Penicillin (For Allergies Use Only) hives Drug Allerg y Active spironolactone Spironolactone(NDC Code:[address]-21) Hives Drug Allergy Active doxycycline Doxycycline(ND Code:[address]-36) Sweating Drug Aller gy Active gabapentin Gabapentin(NDC Code:[address]-10) dizziness Drug Allergy Active ENCOUNTERS from 1955 to 2020-12-25 Encounter Location Date Provider Diagnosis [address] [phone] [place] [address] Dec, Jaye Scales Fibromyalgia M79.7 IMMUNIZATIONS Vaccine Route Administration Date Status COVID-19 dose #1 given elsewhere Unspecified Unknown May Administered Influenza 18 yrs & older Flublok IM Intramuscular Dec 20, 2019 Administered Influenza 18 yrs & older Flublok IM Intramuscular Dec 17, 2018 Administered Influenza 18 yrs & older Flublok IM Intramuscular Feb 21, 2018 Administered TDAP 0.5mL (Boostrix) IM Intramuscular Dec 17, 2018 Administe red Influenza 6mo & up Fluzone IM Intramuscular Jan 18, 2017 Admi nistered Influenza 6mo & up Fluzone IM Intramuscular Jan 18, 2016 Admi nistered Influenza 6mo & up Fluzone IM Intramuscular Nov 26, 2013 Admi nistered Influenza 6mo & up Fluzone IM Intramuscular Nov 29, 2011 Admi nistered SOCIAL HISTORY Tobacco Use: Social History Observation Description Date Details (start date - stop date) Former Smoker Sex Assigned At : Social History Observation Description Sex Assigned At Unknown Education: Question Answer Notes Level of Education: Not finished High School Audit Question Answer Notes Total Score: 0 Interpretation: Alcohol Education Language: Question Answer Notes Languages spoken: [place] Gnosticist: Question Answer Notes Gnosticist 14 Jewish Sexual Hx: Question Answer Notes Had sex [...] FOR REFERRAL No Information VITAL SIGNS Weight 210 lbs Dec, Height 64.5 in Dec, BMI 35.49 kg/m2 Dec, Heart Rate 78 /min Dec, Respiratory Rate 18 /min Dec, Temperature 97.1 degrees Fahrenheit Dec, Oximetry 97 Dec, Blood pressure systolic 136 mm Hg Dec, Blood pressure diastolic 80 mm Hg Dec, MEDICATIONS Medication SIG (Take, Route, Frequency, Duration) Notes Start Da te End Date Status Lidocaine 1.8 % 1 patch to skin remove after 12 hours Externally On a day Active Pregabalin 25 MG 1 capsule Orally Twice a day for 30 Days Dec, Active Atorvastatin Calcium 10 MG 1 tablet Orally Once a day 2019 Active Magnesium 400 MG as directed Orally twice a day Active oxyCODONE-Acetaminophen 5-325 MG 1 tablet as needed Orally before bed time Not-Taking Dexamethasone 4 MG 5 tabs Orally weekly on tuesdays Active diphenhydrAMINE-Zinc Acetate 1-0.1 % 1 application as needed Externally to face, arms Three times a day Mar, Active Azelastine HCl 0.1 % 1 puff in each nostril Nasally Daily May, Active Metoprolol Tartrate 25 MG 1/2 tablet Orally Twice a day Mar, Active Bortezomib 3.5 MG takes 2.5mg/ml Intravenous every 2 weeks Active Acyclovir 400 MG 1 tablet Orally Twice a day for 10 day(s) Active Potassium Chloride ER 20 MEQ TAKE ONE TABLET BY MOUTH TWICE A DAY WITH FOOD for 30 Active Aspirin 81 MG CHEW ONE TABLET BY MOUTH EVERY DAY for 90 Active Blood Pressure Cuff - arm cuff; as directed Dx I10.0 28 Ja 2020 Active Allopurinol 100 MG 2 tablet Orally Once a day Active Pantoprazole Sodium 40 MG TAKE ONE TABLET BY MOUTH TWICE A DAY for 30 Active Colchicine 0.6 MG 1 tablet Orally No t-Taking Torsemide 20 MG 1 tablet Orally Once a day Active Compazine Active Gabapentin 100 MG 1 capsule daily x 1 week, th en 1 capsule BID x 1 week, then 1 capsule TID Orally TID for 30 days Nov, Not-Taking PROCEDURES No Information RESULTS No Results REASON FOR VISIT Gabapentin side effects, Reference #: [id number], istop printed MEDICAL (GENERAL) HISTORY Type Description Date Medical History HTN - Dr. Sherwood Medical History Lower Extremity edema/facial edema - Dr. Shaw/Dr. Sherwood Medical History Osteoarthritis (C-spine, LS spine) Medical History Chronic low back pain with r adiculitis (known DDD of LS spine) Dr. Marino, ortho in [place] Medical History Insomnia Medical History H/O depression in remote past Medical History GERD Medical History Allergic rhinitis Medical History Rheumatoid arthritis - follows in [facility] Medical History Gout Medical History COPD: Dr. Saavedra Medical History Hyperlipidemia Medical History Fibromyalgia Medical History Diabetes mellitus type 2 - diet controll ed Medical History NAM - not using CPAP Medical History Multiple Myeloma - [facility], [facility] Onc Surgical History hysterectomy for menorrhagia 2000 Surgical History cholecystectomy 1999 Surgical History thyroidectomy, parital 2003 Surgical History Removal of kidney stone Surgical History colonoscopy 10/[address] Repair [address]. Pearl 12/29/2015 Surgical History Right wrist lump removed 09/2016 Surgical History Colonoscopy - tubular adenomas removed; Dr. Rodriguez 11/2016 Surgical History EGD - esophagitis, gastrisits; Dr. Melgar 02/2019 Surgical History Colonoscopy - diverticulosis with peridiverticular erythema, biopsy pending; Dr. Rodriguez 08/2020 Hospitalization History Near syncope 04/2011 Hospitalization History Depression/suicidal attempt admitted twice (once at [facility] and once at [facility]) 1996- Hospitalization History [facility] ER- UTI, Edema, unspecif ied- bilateral lower extremities 11/02/2015 Hospitalization History [facility] ER- UTI, Pyelonephritis, Diverticulosis of large intestine without perforation or abcess without bleeding 11/09/2015 Hospitalization History Hernia Repair--Dr. Pearl Hospitalization History tachacardia, 11/2019 Hospitalization History HTN 03/2020 Hospitalization History e coli 04/2020 Goals Section No Information Health Concerns No Information MEDICAL EQUIPMENT No Information MENTAL STATUS No Information FUNCTIONAL STATUS No Information ASSESSMENTS Encounter Date Diagnosis Assessment Notes Treatment Notes Treatm ent Clinical Notes Dec, Fibromyalgia (ICD-10 - M79.7) I educated the patient that pregabalin can be sedating and can cause respiratory depression and , particularly in patients with untreated NAM. She verbalized understanding of risks and is wiling to restart CPAP at night. She wishes to restart pregabalin. Will restart at low dose as she has had significant side effects to other medications recently tried for fibromyalgia. I counseled her to not take other sedating medications (OTC antihistamines or opioids) while taking pregabalin unless she uses her CPAP at night, and to not drink alcohol while taking pregabalin; I advised that mixed pregabalin with other sedating substances increases risk of respiratory depression and . PLAN OF TREATMENT Medication Medication Name Sig Start Date Stop Date Pregabalin 25 MG 1 capsule Orally Twice a day for 30 Days Dec Treatment Notes Assessment Notes Clinical Notes Fibromyalgia I educated the patie nt that pregabalin can be sedating and can cause respiratory depression and , particularly in patients with untreated NAM. She verbalized understanding of risks and is wiling to restart CPAP at night. She wishes to restart pregabalin. Will restart at low dose as she has had significant side effects to other medications recently tried for fibromyalgia. I counseled her to not take other sedating medications (OTC antihistamines or opioids) while taking pregabalin unless she uses her CPAP at night, and to not drink alcohol while taking pregabalin; I advised that mixed pregabalin with other sedating substances increases risk of respiratory depression and . Next Appt Details as sched 01/04 Reason: Provider Name:Jaye Scales, 2021-01-04 11:45:00 AM, [address], , [place], [address], Insurance Providers Payer Name Payer Address Payer Phone Insured Name Patient Relati onship to Insured Coverage Start Date Coverage End Date [facility] [address] [facility] [id number] FAILS,JEREMI MAY self MEDICAID [employer] [address] [facility] [id number] FAILS,JEREMI MAY self
--- OUTSIDE RECORDS SUMMARY | 2021-02-22 14:24 | CCD ---
Author Author [facility] Organization [facility] Address Unknown Phone Unavailable Care Team Providers Care Lead Php Developer Name Role Phone Jaye Scales Unavailable PROBLEMS Type Condition ICD9-CM Code IOV71-FV Code Onset Dates Condition S tatus W/U Status Risk SNOMED Code Notes Problem Gastro-esophageal reflux disease without esophagitis K21.9 Active confirmed 314386887 Problem Obstructive sleep apnea (adult) (pediatric) G47.33 Active confirmed 43699201 Problem Anxiety F41.9 Active confirmed 48178355 Problem Chronic obstructive pulmonary disease, unspecified J44.9 Active confirmed 86607952 Problem Other chronic pain G89.29 Active confirmed 8 4522459 Problem Hypomagnesemia E83.42 Active confirmed 16881 5004 Problem Essential (primary) hypertension I10 Active conf irmed 22071514 Problem Allergic rhinitis, unspecifi ed allergic rhinitis trigger, unspecified rhinitis seasonality J30.9 Active confirmed 05835911 Problem Controlled type 2 diabetes m ellitus without complication, without long- term current use of insulin E11.9 Active confirmed 31 1936608 Problem Osteoarthritis of spine with radiculopathy, lumbar region M47.26 Active confirmed 710303750 Problem Varicose veins with pain I83.819 Active confirmed 968768122 Problem Gout, unspecified cause, unspecified chronicity, unspecified site M10.9 Active confirmed 31479543 Problem Psychophysiological insomnia F51.04 Active confirme d 511463631 Problem Rheumatoid arthritis involvi ng multiple sites with positive rheumatoid factor M05.79 Active confirmed 059011431 Problem Other obesity E66.8 Active confirmed 258829 001 Problem Neuropathy G62.9 Active confirmed 941875989 Problem Fibromyalgia M79.7 Active confirmed 0335058 05 Problem Mixed hyperlipidemia E78.2 Active confirmed 099986071 Problem Vitamin D deficiency, unspecified E55.9 Active con firmed 61725595 Problem Moderate episode of recurrent major depressive disorder F33.1 Active confirmed 514033730 Problem Tension headache G44.209 Active confirmed 39 4778486 Problem Multiple myeloma not having achieved remission C90 .00 Active confirmed 519362746 Problem Psychophysiologic insomnia F51.04 Active confirmed 143163962 ALLERGIES Allergen (clinical drug ingredient) Drug/Non Drug Allergy do cumented on EMR Reaction Allergy Type Onset Date Status acetaminophen / oxycodone Percocet(ND Code:[address]-41) facia l swelling Drug Allergy Active ibuprofen IBU(NDC Code:[address]-86) Kidneys Drug Allergy Active tramadol Tramadol HCl(ND Code:[address]-51) Throat swelling Drug Allergy Active amitriptyline Amitriptyline HCl(NDC Code:[address]-28) Throat swelling Drug Allergy Active ciprofloxacin Cipro(ND Code:[address]-34) Hives Drug Allergy Active Penicillin (For Allergies Use Only) hives Drug Allerg y Active spironolactone Spironolactone(NDC Code:[address]-52) Hives Drug Allergy Active doxycycline Doxycycline(ND Code:[address]-12) Sweating Drug Aller gy Active ENCOUNTERS from 1955 to 2020-11-25 Encounter Location Date Provider Diagnosis [place] [id number] [facility] [phone] [place] [address] 14 Nov, 2020 Jaye Jimkenyon IMMUNIZATIONS Vaccine Route Administration Date Status Influenza 18 yrs & older Flublok IM Intramuscular Dec 20, 2019 Administered COVID-19 dose #1 given elsewhere Unspecified Unknown [...] Education Language: Question Answer Notes Languages spoken: Belizean Protestant: Question Answer Notes Protestant 14 Mandaen Sexual Hx: Question Answer Notes Had sex [...] Notes Start Da te End Date Status Protonix 40 MG 1 tablet Orally bid A ctive Colchicine 0.6 MG 1 tablet Orally Ac tive Magnesium 400 MG as directed Orally twice a day Active Atorvastatin Calcium 10 MG 1 tablet Orally Once a day 10 2019 Active Azelastine HCl 0.1 % 1 puff in each nostril Nasally Daily May, Active diphenhydrAMINE-Zinc Acetate 1-0.1 % 1 application as needed Externally to face, arms Three times a day Mar, Active Lidocaine 1.8 % 1 patch to skin remove after 12 hours Externally On ce a day Active Metoprolol Tartrate 25 MG 1/2 tablet Orally Twice a day Mar, Active Blood Pressure Cuff - arm cuff; as directed Dx I10.0 2020 Active Aspirin 81 MG CHEW ONE TABLET BY MOUTH EVERY DAY for 90 Active Potassium Chloride ER 20 MEQ TAKE ONE TABLET BY MOUTH TWICE A DAY WITH FOOD for 30 Active Allopurinol 100 MG 2 tablet Orally Once a day Active Torsemide 20 MG 1 tablet Orally Once a day Active Acyclovir 400 MG 1 tablet Orally Twice a day for 10 day(s) Active PROCEDURES No Information RESULTS No Results REASON FOR VISIT medication MEDICAL (GENERAL) HISTORY Type Description Date Medical History HTN - Dr. Sherwood Medical History Lower Extremity edema/facial edema - Dr. Shaw/Dr. Sherwood Medical History Osteoarthritis (C-spine, LS spine) Medical History Chronic low back pain with r adiculitis (known DDD of LS spine) Dr. Marino, ortho in [place] Medical History Insomnia Medical History H/O depression in remote past Medical History GERD Medical History Allergic rhinitis Medical History Rheumatoid arthritis - follows in [facility] Medical History Gout Medical History COPD: Dr. Saavedra Medical History Hyperlipidemia Medical History Fibromyalgia Medical History Diabetes mellitus type 2 - diet controll ed Medical History NAM - uses CPAP Medical History Multiple Myeloma - [facility], [facility] Onc Surgical History hysterectomy for [...] History Depression/suicidal attempt admitted twice (once at [facility] and once at [facility]) 1996- Hospitalization History [facility] ER- UTI, Edema, unspecif ied- bilateral lower extremities 11/02/2015 Hospitalization History [facility] ER- UTI, Pyelonephritis, Diverticulosis of large [...] Medication Name Sig Start Date Stop Date Azelastine HCl 0.1 % 1 puff in each nostril Nasally Daily May Allopurinol 100 MG 2 tablet Orally Once a day Atorvastatin Calcium 10 MG 1 tablet Orally Once a day Sep, Magnesium 400 MG as directed Orally twice a day Lidocaine 1.8 % 1 patch to skin remove after 12 hours Externally Once a day Protonix 40 MG 1 tablet Orally bid Metoprolol Tartrate 25 MG 1/2 tablet Orally Twice a day Mar, Colchicine 0.6 MG 1 tablet Orally Aspirin 81 MG CHEW ONE TABLET BY MOUTH EVERY DAY for 90 Torsemide 20 MG 1 tablet Orally Once a day diphenhydrAMINE-Zinc Acetate 1-0.1 % 1 application as needed Externally to face, arms Three times a day Mar, Blood Pressure Cuff - arm cuff; as directed Dx I10.0 Mar, Potassium Chloride ER 20 MEQ TAKE ONE TABLET BY MOUTH TWICE A DAY WITH FOOD for 30 Next Appt Details Provider Name:Jaye Grier Diandrakenyon, 2020-11-30 01:30:00 PM, [address] [place] [address], , [place], [address], Provider Name:Jaye Grier Diandrakenyon, 2021-01-05 01:00:00 PM, [address] [place] [address], , [place], [address], Insurance Providers Payer Name Payer Address Payer Phone Insured Name Patient Relati onship to Insured Coverage Start Date Coverage End Date [facility] [address] [facility] [phone] FAILS,JEREMI MAY self MEDICAID [employer] and [employer] [address] [facility] [id number] FAILS,JEREMI MAY self
--- OUTSIDE RECORDS SUMMARY | 2021-02-22 14:24 | CCD ---
Author Author [facility] Organization [facility] Address Unknown Phone Unavailable Care Team Providers Care Research Clerk Name Role Phone Jaye Scales Unavailable PROBLEMS Type Condition ICD9-CM Code [id number] Code Onset Dates Condition S tatus W/U Status Risk SNOMED Code Notes Problem Gastro-esophageal reflux disease without esophagitis K21.9 Active confirmed 091367627 Problem Obstructive sleep apnea (adult) (pediatric) G47.33 Active confirmed 09889760 Problem Anxiety F41.9 Active confirmed 10423062 Problem Chronic obstructive pulmonary disease, unspecified J44.9 Active confirmed 80985152 Problem Other chronic pain G89.29 Active confirmed 8 4106068 Problem Hypomagnesemia E83.42 Active confirmed 42788 5004 Problem Essential (primary) hypertension I10 Active conf irmed 81339810 Problem Allergic rhinitis, unspecifi ed allergic rhinitis trigger, unspecified rhinitis seasonality J30.9 Active confirmed 42612782 Problem Controlled type 2 diabetes m ellitus without complication, without long- term current use of insulin E11.9 Active confirmed 31 3467080 Problem Osteoarthritis of spine with radiculopathy, lumbar region M47.26 Active confirmed 047299126 Problem Varicose veins with pain I83.819 Active confirmed 652329791 Problem Gout, unspecified cause, unspecified chronicity, unspecified site M10.9 Active confirmed 44677008 Problem Psychophysiological insomnia F51.04 Active confirme d 612159960 Problem Rheumatoid arthritis involvi ng multiple sites with positive rheumatoid factor M05.79 Active confirmed 250717182 Problem Other obesity E66.8 Active confirmed 918779 001 Problem Neuropathy G62.9 Active confirmed 166622064 Problem Fibromyalgia M79.7 Active confirmed 9245929 05 Problem Mixed hyperlipidemia E78.2 Active confirmed 654294711 Problem Vitamin D deficiency, unspecified E55.9 Active con firmed 81678255 Problem Moderate episode of recurrent major depressive disorder F33.1 Active confirmed 350620471 Problem Tension headache G44.209 Active confirmed 39 1649944 Problem Multiple myeloma not having achieved remission C90 .00 Active confirmed 365757271 Problem Psychophysiologic insomnia F51.04 Active confirmed 793438904 ALLERGIES Allergen (clinical drug ingredient) Drug/Non Drug Allergy do cumented on EMR Reaction Allergy Type Onset Date Status acetaminophen / oxycodone Percocet(ND Code:[address]-62) facia l swelling Drug Allergy Active ibuprofen IBU(NDC Code:[address]-58) Kidneys Drug Allergy Active tramadol Tramadol HCl(ND Code:[address]-45) Throat swelling Drug Allergy Active amitriptyline Amitriptyline HCl(NDC Code:[address]-57) Throat swelling Drug Allergy Active ciprofloxacin Cipro(ND Code:[address]-80) Hives Drug Allergy Active Penicillin (For Allergies Use Only) hives Drug Allerg y Active spironolactone Spironolactone(NDC Code:[address]-45) Hives Drug Allergy Active doxycycline Doxycycline(ND Code:[address]-60) Sweating Drug Aller gy Active ENCOUNTERS from 1955 to 2020-12-01 Encounter Location Date Provider Diagnosis [address] [phone] [place] [address] Nov, Jaye Scales Fibromyalgia M79.7 ; Obstruc tive sleep apnea (adult) (pediatric) G47.33 ; Multiple myeloma not having achieved remission C90.00 and Osteoarthritis of spine with radiculopathy, lumbar region M47.26 IMMUNIZATIONS Vaccine Route Administration Date Status Influenza 18 yrs & older Flublok IM Intramuscular Dec 20, 2019 Administered Influenza 18 yrs & older Flublok IM Intramuscular Dec 17, 2018 Administered Influenza 18 yrs & older Flublok IM Intramuscular Feb 21, 2018 Administered COVID-19 dose #1 given elsewhere Unspecified Unknown May Administered TDAP 0.5mL (Boostrix) IM Intramuscular Dec [...] Education Language: Question Answer Notes Languages spoken: Egyptian Moravian: Question Answer Notes Moravian 14 Pentecostalism Sexual Hx: Question Answer Notes Had sex [...] FOR REFERRAL No Information VITAL SIGNS Weight 199 lbs Nov, Height 64.5 in Nov, BMI 33.63 kg/m2 Nov, Heart Rate 88 /min Nov, Respiratory Rate 18 /min Nov, Temperature 96 degrees Fahrenheit Nov, Oximetry 96 Nov, Blood pressure systolic 122 mm Hg Nov, Blood pressure diastolic 70 mm Hg Nov, MEDICATIONS Medication SIG (Take, Route, Frequency, Duration) Notes Start Da te End Date Status Colchicine 0.6 MG 1 tablet Orally No t-Taking Lidocaine 1.8 % 1 patch to skin remove after 12 hours Externally On ce a day Active Torsemide 20 MG 1 tablet Orally Once a day Active Azelastine HCl 0.1 % 1 puff in each nostril Nasally Daily May, Active Acyclovir 400 MG 1 tablet Orally Twice a day for 10 day(s) Active Potassium Chloride ER 20 MEQ TAKE ONE TABLET BY MOUTH TWICE A DAY WITH FOOD for 30 Active oxyCODONE-Acetaminophen 5-325 MG 1 tablet as needed Orally before bed time Active diphenhydrAMINE-Zinc Acetate 1-0.1 % 1 application as needed Externally to face, arms Three times a day Mar, Active Blood Pressure Cuff - arm cuff; as directed Dx I10.0 2020 Active Allopurinol 100 MG 2 tablet Orally Once a day Active Magnesium 400 MG as directed Orally twice a day Active Atorvastatin Calcium 10 MG 1 tablet Orally Once a day 10 2019 Active Pantoprazole Sodium 40 MG TAKE ONE TABLET BY MOUTH TWICE A DAY for 30 Active DULoxetine HCl 30 MG 1 capsule Orally Once a day for 30 day(s) Nov, Active Metoprolol Tartrate 25 MG 1/2 tablet Orally Twice a day Mar, Active Aspirin 81 MG CHEW ONE TABLET BY MOUTH EVERY DAY for 90 Active PROCEDURES No Information RESULTS No Results REASON FOR VISIT Fibromyalgia pain MEDICAL (GENERAL) HISTORY Type Description Date Medical History HTN - Dr. Sherwood Medical History Lower Extremity edema/facial edema - Dr. Shaw/Dr. Sherwood Medical History Osteoarthritis (C-spine, LS spine) Medical History Chronic low back pain with r adiculitis (known DDD of LS spine) Dr. Marino, ortho in [place] Medical History Insomnia Medical History H/O depression [...] using CPAP Medical History Multiple Myeloma - [facility], [facility] Onc Surgical History hysterectomy for menorrhagia 2000 Surgical History cholecystectomy 1999 Surgical History thyroidectomy, parital 2003 Surgical History Removal of kidney stone Surgical History colonoscopy 10/[address] Pearl 12/29/2015 Surgical History Right wrist lump removed 09/2016 Surgical History Colonoscopy - tubular adenomas removed; Dr. Rodriguez 11/2016 Surgical History EGD - esophagitis, gastrisits; Dr. Ramón malhotra 02/2019 Surgical History Colonoscopy - diverticulosis with peridiverticular erythema, biopsy pending; Dr. Rodriguez 08/2020 Hospitalization History Near syncope 04/2011 Hospitalization History Depression/suicidal attempt admitted twice (once at [facility] and once at [facility]) 1996- Hospitalization History [facility] ER- UTI, Edema, unspecif ied- bilateral lower extremities 11/02/2015 Hospitalization History [facility] ER- UTI, Pyelonephritis, Diverticulosis of large [...] Notes Treatment Notes Treatm ent Clinical Notes Nov, Fibromyalgia (ICD-10 - M79.7) I recommended trying duloxetine for fibromyalgia pain as she had oversedation with Lyrica in the past. I am also concerned with gabapentin and Lyrica interacting with oxycodone to cause respiratory depression while asleep, particularly as she has untreated NAM. Nov, Obstructive sleep apnea (adult) (pediatric) (ICD -10 - G47.33) I advised the patient that untreated NAM is associated with daytime sleepiness, a lack of energy, hypertension, heart enlargement, diabetes, arrhythmias and other medical complications. I advised the patient to avoid alcohol and sedating medications, as these in combination with untreated NAM can cause respiratory depression. I advised that I will be unable to prescribe sedating medications, including opioids, in the future due to untreated NAM. The patient verbalized understanding of these recommendations. I advised that CPAP use has not been linked to increased risk of cancer and I recommended that she restart use of CPAP. Although I am not prescribing oxycodone, I advised her to use CPAP if she continues to take this at bedtime to decrease risk of respiratory depression and . Nov, Multiple myeloma not having achieved remission ( ICD-10 - C90.00) She states she plans to transfer to [facility] for all cancer-related care. Nov, Osteoarthritis of spine with radiculopathy, lumbar region (ICD-10 - M47.26) I offered referral back to Dr. Marino to restart back injections; she declined. PLAN OF TREATMENT Medication Medication Name Sig Start Date Stop Date Pantoprazole Sodium 40 MG TAKE ONE TABLET BY MOUTH TWICE A DAY f or 30 DULoxetine HCl 30 MG 1 capsule Orally Once a day for 30 day(s) 2 0 Nov, 2020 Treatment Notes Assessment Notes Clinical Notes Fibromyalgia I recommended trying duloxetine for fibromyalgia pain as she had oversedation with Lyrica in the past. I am also concerned with gabapentin and Lyrica interacting with oxycodone to cause respiratory depression while asleep, particularly as she has untreated NAM. Obstructive sleep apnea (adult) (pediatric) I advised the patient that untreated NAM is associated with daytime sleepiness, a lack of energy, hypertension, heart enlargement, diabetes, arrhythmias and other medical complications. I advised the patient to avoid alcohol and sedating medications, as these in combination with untreated NAM can cause respiratory depression. I advised that I will be unable to prescribe sedating medications, including opioids, in the future due to untreated NAM. The patient verbalized understanding of these recommendations. I advised that CPAP use has not been linked to increased risk of cancer and I recommended that she restart use of CPAP. Although I am not prescribing oxycodone, I advised her to use CPAP if she continues to take this at bedtime to decrease risk of respiratory depression and . Multiple myeloma not having achieved remission She states she plans to transfer to [facility] for all cancer-related care. Osteoarthritis of spine with radiculopathy, lumbar region I offered referral back to Dr. Marino to restart back injections; she declined. Next Appt Details as sched 01/05 Reason: Provider Name:Jaye Scales, 2021-01-05 01:00:00 PM, [address] [facility], , [place], [address], Insurance Providers Payer Name Payer Address Payer Phone Insured Name Patient Relati onship to Insured Coverage Start Date Coverage End Date [facility] [address] [facility] [id number] FAILS,JEREMI MAY self MEDICAID [employer] [address] [facility] [id number] FAILS,JEREMI MAY self
--- OUTSIDE RECORDS SUMMARY | 2021-02-22 14:24 | CCD ---
Author Author [facility] Organization [facility] Address Unknown Phone Unavailable Care Team Providers Care Acid Concentrator Name Role Phone Jaye Scales Unavailable PROBLEMS Type Condition ICD9-CM Code [id number] Code Onset Dates Condition S tatus W/U Status Risk SNOMED Code Notes Problem Gastro-esophageal reflux disease without esophagitis K21.9 Active confirmed 940034655 Problem Obstructive sleep apnea (adult) (pediatric) G47.33 Active confirmed 21932477 Problem Anxiety F41.9 Active confirmed 13946380 Problem Chronic obstructive pulmonary disease, unspecified J44.9 Active confirmed 75809752 Problem Other chronic pain G89.29 Active confirmed 8 0207020 Problem Hypomagnesemia E83.42 Active confirmed 54439 5004 Problem Essential (primary) hypertension I10 Active conf irmed 66444456 Problem Allergic rhinitis, unspecifi ed allergic rhinitis trigger, unspecified rhinitis seasonality J30.9 Active confirmed 26940556 Problem Controlled type 2 diabetes m ellitus without complication, without long- term current use of insulin E11.9 Active confirmed 31 0180176 Problem Osteoarthritis of spine with radiculopathy, lumbar region M47.26 Active confirmed 650162908 Problem Varicose veins with pain I83.819 Active confirmed 019680668 Problem Gout, unspecified cause, unspecified chronicity, unspecified site M10.9 Active confirmed 22938603 Problem Psychophysiological insomnia F51.04 Active confirme d 405051344 Problem Rheumatoid arthritis involvi ng multiple sites with positive rheumatoid factor M05.79 Active confirmed 734813927 Problem Other obesity E66.8 Active confirmed 823825 001 Problem Neuropathy G62.9 Active confirmed 043652827 Problem Fibromyalgia M79.7 Active confirmed 5069619 05 Problem Mixed hyperlipidemia E78.2 Active confirmed 710023815 Problem Vitamin D deficiency, unspecified E55.9 Active con firmed 43565531 Problem Moderate episode of recurrent major depressive disorder F33.1 Active confirmed 503267563 Problem Tension headache G44.209 Active confirmed 39 7227199 Problem Multiple myeloma not having achieved remission C90 .00 Active confirmed 785395518 Problem Psychophysiologic insomnia F51.04 Active confirmed 986049396 ALLERGIES Allergen (clinical drug ingredient) Drug/Non Drug Allergy do cumented on EMR Reaction Allergy Type Onset Date Status acetaminophen / oxycodone Percocet(ND Code:[address]-80) facia l swelling Drug Allergy Active ibuprofen IBU(NDC Code:[address]-21) Kidneys Drug Allergy Active tramadol Tramadol HCl(ND Code:[address]-59) Throat swelling Drug Allergy Active amitriptyline Amitriptyline HCl(NDC Code:[address]-95) Throat swelling Drug Allergy Active ciprofloxacin Cipro(ND Code:[address]-47) Hives Drug Allergy Active Penicillin (For Allergies Use Only) hives Drug Allerg y Active spironolactone Spironolactone(NDC Code:[address]-45) Hives Drug Allergy Active doxycycline Doxycycline(ND Code:[address]-27) Sweating Drug Aller gy Active ENCOUNTERS from 1955 to 2020-12-09 Encounter Location Date Provider Diagnosis [address] [phone] [place] [address] Nov, Jaye Scales Fibromyalgia M79.7 IMMUNIZATIONS Vaccine Route [...] Education Language: Question Answer Notes Languages spoken: Persian Quaker: Question Answer Notes Quaker 14 Latter-Day Sexual Hx: Question Answer Notes Had sex [...] 1 tablet Orally Once a day Active Allopurinol 100 MG 2 tablet Orally Once a day Active Potassium Chloride ER 20 MEQ TAKE ONE TABLET BY MOUTH TWICE A DAY WITH FOOD for 30 Active Azelastine HCl 0.1 % 1 puff in each nostril Nasally Daily May, Active Acyclovir 400 MG 1 tablet Orally Twice a day for 10 day(s) Active diphenhydrAMINE-Zinc Acetate 1-0.1 % 1 application as needed Externally to face, arms Three times a day Mar, Active Blood Pressure Cuff - arm cuff; as directed Dx I10.0 2020 Active Gabapentin 100 MG 1 capsule daily x 1 week, en 1 capsule BID x 1 week, then 1 capsule TID Orally TID for 30 days Nov, Active Magnesium 400 MG as directed Orally twice a day Active Atorvastatin Calcium 10 MG 1 tablet Orally Once a day 2019 Active Pantoprazole Sodium 40 MG TAKE ONE TABLET BY MOUTH TWICE A DAY for 30 Active oxyCODONE-Acetaminophen 5-325 MG 1 tablet as needed Orally before bed time Active Metoprolol Tartrate 25 MG 1/2 tablet Orally Twice a day Mar, Active Aspirin 81 MG CHEW ONE TABLET BY MOUTH EVERY DAY for 90 Active PROCEDURES No Information RESULTS No Results REASON FOR VISIT reaction MEDICAL (GENERAL) HISTORY Type Description Date Medical History HTN - Dr. Sherwood Medical History Lower Extremity edema/facial edema - Dr. Shaw/Dr. Sherwood Medical History Osteoarthritis (C-spine, LS spine) Medical History Chronic low back pain with r adiculitis (known DDD of LS spine) Dr. Marino, ortho in [place] Medical History Insomnia Medical History H/O depression [...] CPAP Medical History Multiple Myeloma - [facility], [facility] Onc Surgical History hysterectomy for [...] History Depression/suicidal attempt admitted twice (once at [facility] and once at [facility]) 1996- Hospitalization History [facility] ER- UTI, Edema, unspecif ied- bilateral lower extremities 11/02/2015 Hospitalization History [facility] ER- UTI, Pyelonephritis, Diverticulosis of large intestine [...] Clinical Notes Nov, Fibromyalgia (ICD-10 - M79.7) PLAN OF TREATMENT Medication Medication Name Sig Start Date Stop Date Pantoprazole Sodium 40 MG TAKE ONE TABLET BY MOUTH TWICE A DAY or 30 Gabapentin 100 MG 1 capsule daily x 1 week, th en 1 capsule BID x 1 week, then 1 capsule TID Orally TID for 30 days Nov, Next Appt Details Provider Name:Jaye Scales, 2021-01-05 01:00:00 PM, [address] [facility], , [place], [address], Insurance Providers Payer Name Payer Address Payer Phone Insured Name Patient Relati onship to Insured Coverage Start Date Coverage End Date [facility] [address] [facility] [phone] FAILS,JEREMI DOBBINS self MEDICAID [employer] [address] [facility] [id number] FAILS,JEREMI MAY self
--- OUTSIDE RECORDS SUMMARY | 2021-02-22 14:24 | CCD ---
Author Author [facility] Organization [facility] Address Unknown Phone Unavailable Care Team Providers Care Barrel Rifler Name Role Phone Jaye Scales Unavailable PROBLEMS Type Condition ICD9-CM Code [id number] Code Onset Dates Condition S tatus W/U Status Risk SNOMED Code Notes Problem Gastro-esophageal reflux disease without esophagitis K21.9 Active confirmed 922172282 Problem Obstructive sleep apnea (adult) (pediatric) G47.33 Active confirmed 01734529 Problem Anxiety F41.9 Active confirmed 53367637 Problem Chronic obstructive pulmonary disease, unspecified J44.9 Active confirmed 31418206 Problem Other chronic pain G89.29 Active confirmed 8 3588614 Problem Hypomagnesemia E83.42 Active confirmed 83998 5004 Problem Essential (primary) hypertension I10 Active conf irmed 47777513 Problem Allergic rhinitis, unspecifi ed allergic rhinitis trigger, unspecified rhinitis seasonality J30.9 Active confirmed 38180446 Problem Controlled type 2 diabetes m ellitus without complication, without long- term current use of insulin E11.9 Active confirmed 31 3303644 Problem Osteoarthritis of spine with radiculopathy, lumbar region M47.26 Active confirmed 386715032 Problem Varicose veins with pain I83.819 Active confirmed 203987258 Problem Gout, unspecified cause, unspecified chronicity, unspecified site M10.9 Active confirmed 25014460 Problem Psychophysiological insomnia F51.04 Active confirme d 450932108 Problem Rheumatoid arthritis involvi ng multiple sites with positive rheumatoid factor M05.79 Active confirmed 243667198 Problem Other obesity E66.8 Active confirmed 384286 001 Problem Neuropathy G62.9 Active confirmed 076092500 Problem Fibromyalgia M79.7 Active confirmed 0205883 05 Problem Mixed hyperlipidemia E78.2 Active confirmed 669340379 Problem Vitamin D deficiency, unspecified E55.9 Active con firmed 13568276 Problem Moderate episode of recurrent major depressive disorder F33.1 Active confirmed 692440027 Problem Tension headache G44.209 Active confirmed 39 0803819 Problem Multiple myeloma not having achieved remission C90 .00 Active confirmed 041374244 Problem Psychophysiologic insomnia F51.04 Active confirmed 366805033 ALLERGIES Allergen (clinical drug ingredient) Drug/Non Drug Allergy do cumented on EMR Reaction Allergy Type Onset Date Status acetaminophen / oxycodone Percocet(ND Code:[address]-52) facia l swelling Drug Allergy Active ibuprofen IBU(NDC Code:[address]-55) Kidneys Drug Allergy Active tramadol Tramadol HCl(ND Code:[address]-28) Throat swelling Drug Allergy Active amitriptyline Amitriptyline HCl(NDC Code:[address]-58) Throat swelling Drug Allergy Active ciprofloxacin Cipro(ND Code:[address]-60) Hives Drug Allergy Active Penicillin (For Allergies Use Only) hives Drug Allerg y Active spironolactone Spironolactone(NDC Code:[address]-00) Hives Drug Allergy Active doxycycline Doxycycline(ND Code:[address]-66) Sweating Drug Aller gy Active ENCOUNTERS from 1955 to 2020-12-15 Encounter Location Date Provider Diagnosis [address] [facility] [phone] [place] [address] Dec, Jaye Jimkenyon IMMUNIZATIONS Vaccine Route Administration Date Status COVID-19 [...] Education Language: Question Answer Notes Languages spoken: Mexican Temple: Question Answer Notes Temple 14 Episcopal Sexual Hx: Question Answer Notes Had sex [...] 1 tablet Orally Once a day Active Potassium Chloride ER 20 MEQ TAKE ONE TABLET BY MOUTH TWICE A DAY WITH FOOD for 30 Active Azelastine HCl 0.1 % 1 puff in each nostril Nasally Daily May, Active Allopurinol 100 MG 2 tablet Orally Once a day Active Acyclovir [...] Information RESULTS No Results REASON FOR VISIT dizziness/retaining fluid MEDICAL (GENERAL) HISTORY Type Description Date Medical History HTN - Dr. Sherwood Medical History Lower Extremity edema/facial edema - Dr. Shaw/Dr. Sherwood Medical History Osteoarthritis (C-spine, LS spine) Medical History Chronic low back pain with r adiculitis (known DDD of LS spine) Dr. Marino, ortho in [place] Medical History Insomnia Medical History H/O depression in remote past Medical History GERD Medical History Allergic rhinitis Medical History Rheumatoid arthritis - follows in [facility] Medical History Gout Medical History COPD: Dr. Saavedra Medical History Hyperlipidemia Medical History Fibromyalgia Medical History Diabetes mellitus type 2 - diet controll ed Medical History NAM - not using CPAP Medical History Multiple Myeloma - [facility], [facility] Onc Surgical History hysterectomy for menorrhagia 2000 [...] History Depression/suicidal attempt admitted twice (once at [facility] and once at [facility]) 1996- Hospitalization History [facility] ER- UTI, Edema, unspecif ied- bilateral lower extremities 11/02/2015 Hospitalization History [facility] ER- UTI, Pyelonephritis, Diverticulosis of large [...] Medication Name Sig Start Date Stop Date Gabapentin 100 MG 1 capsule daily x 1 week, th en 1 capsule BID x 1 week, then 1 capsule TID Orally TID for 30 days Nov, Potassium Chloride ER 20 MEQ TAKE ONE TABLET BY MOUTH TWICE A DAY WITH FOOD for 30 Pantoprazole Sodium 40 MG TAKE ONE TABLET BY MOUTH TWICE A DAY f or 30 Next Appt Details Provider Name:Jaye Scales, 2020-12-23 01:30:00 PM, [address] [place] [address], , [place], [address], Provider Name:Jaye Scales, 2021-01-05 01:00:00 PM, [address] [place] [address], , [place], [address], Insurance Providers Payer Name Payer Address Payer Phone Insured Name Patient Relati onship to Insured Coverage Start Date Coverage End Date MEDICAID [employer] [address] [facility] [id number] FAILS,JEREMI DOBBINS self [facility] [address] [facility] [id number] FAILS,JEREMI DOBBINS self
--- OUTSIDE RECORDS SUMMARY | 2021-02-22 14:27 | CCD ---
Author Author [facility] Organization [facility] Address Unknown Phone Unavailable Support Name Relationship Address Phone Giuliano MALLOY Next Of Kin [address] [facility] [address] [address] [facility] [address] [place] [id number] WILLY HAMMOND Next Of Kin Unknown REYNALDO CARTER Next Of Kin [address] [facility] [address] [place] [address] GUILLAUME HUSSEIN Next Of Kin [address] [place] [address] LORENA LLANES Next Of Kin Unknown Unavailable JUDY HAMMOND Next Of Kin [address] [facility] [address] [place], [place] [id number] JUDY CARTER Next Of Kin [id number] [place] [address] PENELOPE HUSSEIN Next Of Kin NA Unknown DISABLED Next Of Kin Unknown Unavailable [place] [address] Unavailable DISABLE Next Of Kin Unknown Unavailable JUSTYN [place] [address] UE Next Of Kin Unknown Unavailable DISABILITY Next Of Kin X X, X X MARY MALLOY Next Of Kin [address] [facility] [address] [place] [address] ANDRE[place] [address] Unavailable Reynaldo Carter ECON [address] [place] [address] Unavailable Neva Llanes ECON Unknown Guillaume Hussein ECON [address] [place] [address] Unavailable Mary Malloy ECON [address] [place] [address] [phone] Care Team Providers Care Label Fuser Tender Name Role Phone Danika Falanga, A Kavya DOCK WORKER Unavailable Unavailable Winifrede Falanga, A Kavya DOCK WORKER Unavailable Unavailable Danika Falanga, A Kavya DOCK WORKER Unavailable Unavailable Winifrede Falanga, A Kavya DOCK WORKER Unavailable Unavailable Danika Falanga, A Kavya DOCK WORKER Unavailable Unavailable Winifrede Falanga, A Kavya DOCK WORKER Unavailable Unavailable Winifrede Falanga, A Kavya DOCK WORKER Unavailable Unavailable Winifrede Falanga, A Kavya DOCK WORKER Unavailable Unavailable Winifrede Falanga, A Kavya DOCK WORKER Unavailable Unavailable Danika Falanga, A Kavya DOCK WORKER Unavailable Unavailable Danika Falanga, A Kavya DOCK WORKER Unavailable Unavailable Winifrede Falanga, A Kavya DOCK WORKER Unavailable Unavailable Winifrede Falanga, A Kavya DOCK WORKER Unavailable Unavailable Danika Falanga, A Kavya DOCK WORKER Unavailable Unavailable Danika Falanga, A Kavya DOCK WORKER Unavailable Unavailable Danika Falanga, A Kavya DOCK WORKER Unavailable Unavailable Danika Falanga, A Kavya DOCK WORKER Unavailable Unavailable Winifrede Falanga, A Kavya DOCK WORKER Unavailable Unavailable Winifrede Falanga, A Kavya DOCK WORKER Unavailable Unavailable Danika Falanga, A Kavya DOCK WORKER Unavailable Unavailable Danika Falanga, A Kavya DOCK WORKER Unavailable Unavailable Winifrede Falanga, A Kavya DOCK WORKER Unavailable Unavailable Winifrede Falanga, A Kavya DOCK WORKER Unavailable Unavailable Danika Falanga, A Kavya DOCK WORKER Unavailable Unavailable Danika Falanga, A Kavya DOCK WORKER Unavailable Unavailable Danika Falanga, A Kavya DOCK WORKER Unavailable Unavailable Winifrede Falanga, A Kavya DOCK WORKER Unavailable Unavailable Danika Falanga, A Kavya DOCK WORKER Unavailable Unavailable Danika Falanga, A Kavya DOCK WORKER Unavailable Unavailable Danika Falanga, A Kavya DOCK WORKER Unavailable Unavailable Danika Falanga, A Kavya DOCK WORKER Unavailable [facility]available [facility] Unavailable Unavailable PAUL HOWARD MD Unavailable Unavailable [...] Unavailable Unavailable REINDL, PAUL WHELAN Unavailable Unavailable Galindo, V NASREEN PA-C Unavailable Unavailable Galindo, V NASREEN PA-C Unavailable Unavailable Galindo, V NASREEN PA-C Unavailable Unavailable [place], V NASREEN PA-C Unavailable Unavailable [place], V NASREEN PA-C Unavailable Unavailable [place], V NASREEN PA-C Unavailable Unavailable [place], V NASREEN PA-C Unavailable Unavailable [place], V NASREEN PA-C Unavailable Unavailable [place], V NASREEN PA-C Unavailable Unavailable [place], V NASREEN PA-C Unavailable Unavailable Galindo, V NASREEN PA-C Unavailable Unavailable [place], V NASREEN PA-C Unavailable Unavailable [place], V NASREEN PA-C Unavailable Unavailable [place], V NASREEN PA-C Unavailable Unavailable Daphne MONTERO MD Unavailable Unavailable [...] Unavailable KYLAH, L NATASHA MD Unavailable Unavailable NON, PHYSICIAN STAFF Unavailable Unavailable Re-disclosure Warning The records that [...] is protected by Article 27-F of the [facility] Public Health law. If you continue you may have access to information: Regarding HIV / AIDS; Provided by facilities licensed or operated by the [facility] Office of Mental Health; or Provided by the [facility] Office for People With Developmental Disabilities. If such information is present, then the following [facility] mandated warning applies: This information has [...] Description Substance Reaction Status Data Source(s ) Propensity to adverse reactions SELMA HAHN [facility] Propensity to adverse reactions TYLENOL TYLENOL [facility] Drug allergy GABAPENTIN GABAPENTIN [facility] Drug allergy METFORMIN METFORMIN [facility] Drug allergy OXYCODONE OXYCODONE [facility] Drug allergy CARISOPRODOL CARISOPRODOL [facility] Drug allergy DOXYCYCLINE DOXYCYCLINE [facility] Drug allergy FLUOCINOLONE FLUOCINOLONE [facility] Drug allergy PREDNISONE PREDNISONE [facility] Drug allergy AMITRIPTYLINE AMITRIPTYLINE [facility] Drug allergy SPIRONOLACTONE SPIRONOLACTONE [facility] Drug allergy CODEINE CODEINE [facility] Propensity to adverse reactions QUINOLONES QUINOLONES [facility] Propensity to adverse reactions NSAID NSAID [facility] Family History Family Member Name Family Member Gender Family Member Status Date o f Status Description Data Source(s) Unknown Unknown Problem MEDENT ([facility], ) Encounters Encounter Providers Location Date Indications Data Source(s ) Outpatient [address] [facility] [place] [address] 12/23/2020 12:00:00 AM EDT eCW1 ([facility]) Unknown [address] [facility] [address] 12/15/2020 12:00:00 AM EDT [facility]CW1 [facility] Unknown [address] [facility] [address] [address] 12/08/2020 12:00:00 AM EDT eCW1 ([facility]) Outpatient [address] [facility] [address] [address] 11/30/2020 12:00:00 AM EDT eCW1 ([facility]) Unknown [address] [facility] [address] [address] 11/24/2020 12:00:00 AM EDT eCW1 ([facility]) Outpatient [address] [facility] [address] [address] 09/22/2020 12:00:00 AM EDT eCW1 ([facility]) Unknown [address] [facility] [address] [address] 09/22/2020 12:00:00 AM EDT eCW1 ([facility]) Outpatient Attender: NASREEN BACONGEOFF-SJP.GEOFF 12:52:40 PM EDT - 08/31/2020 01:28:26 PM EDT [facility] Outpatient Attender: PAUL Murphy/Luca/Eduardo/Cole ro 06/16/2020 03:15:00 PM EDT MEDENT ([facility]) Unknown [address] [facility] [place] [address] 06/12/2020 12:00:00 AM EDT eCW1 ([facility]) Outpatient [address] [facility] [place] [address] 06/11/2020 12:00:00 AM EDT eCW1 ([facility]) Outpatient Attender: NASREEN BACONGEOFF-SJP.GEOFF 12:00:00 AM EDT - 05/28/2020 01:56:47 PM EDT [facility] Outpatient [address] [facility] [place] [address] 05/15/2020 12:00:00 AM EST eCW1 ([facility]) Unknown [address] [facility] [place] [address] 05/14/2020 12:00:00 AM EST eCW1 ([facility]) Outpatient Attender: NASREEN BAOCNGEOFF-SJP.GEOFF 12:00:00 AM EST - 05/06/2020 02:43:14 PM EST [facility] Unknown [address] [facility] [place] [address] 04/28/2020 12:00:00 AM EST eCW1 ([facility]) Unknown [address] [facility] [place] [address] 04/27/2020 12:00:00 AM EST eCW1 ([facility]) Outpatient [address] [facility] [id number] 04/24/2020 12:00:00 AM EST eCW1 ([facility]) Unknown [address] [facility] [place] [address] 04/21/2020 12:00:00 AM EST eCW1 ([facility]) Unknown [address] [facility] [place] [address] 04/13/2020 12:00:00 AM EST eCW1 ([facility]) (TCM) Transition of Care Visit [address] [place] [address] 04/09/2020 12:00:00 AM EST eCW1 ([facility]) Unknown [address] [facility] [place] [address] 04/09/2020 12:00:00 AM EST eCW1 ([facility]) Outpatient Attender: NASREEN LAWSON.GEOFF-SJPArmenGEOFF 12:00:00 AM EST - 04/08/2020 03:27:49 PM EST [facility] Unknown [address] [facility] [place] [address] 04/06/2020 12:00:00 AM EST eCW1 ([facility]) Unknown [address] [facility] [address] [address] 04/03/2020 12:00:00 AM EST eCW1 ([facility]) Unknown [address] [facility] [address] [address] 03/30/2020 12:00:00 AM EST eCW1 ([facility]) Unknown [address] [facility] [place] [address] 03/30/2020 12:00:00 AM EST eCW1 ([facility]) Outpatient [address] [facility] [address] [address] 03/24/2020 12:00:00 AM EST eCW1 ([facility]) Outpatient Attender: [facility] 03/08/2020 09:5 0:00 PM EST [facility] Inpatient Attender: Kavya hawkins FNPAttender: NATASHA MONTERO MDConsultant: STAFF NON 03/06/2020 10:10:00 AM EST - 03/12/2020 12:50:00 PM EST [facility] Patient discharged. Outpatient Attender: Kavya Danika Mike DOCK WORKER 03/04/2020 12:24:00 PM EST - 03/06/2020 10:10:00 AM EST [facility] Unknown [address] [facility] [place] [address] 03/02/2020 12:00:00 AM EST eCW1 ([facility]) Immunizations Vaccine Date Status Description Data Source(s) COVID-19 dose #1 given elsewhere Unspecified 05/29/2020 02:3 9:00 PM EDT completed eCW1 ([facility]) COVID-19 dose #1 given elsewhere Unspecified 05/29/2020 02:3 9:00 PM EDT completed eCW1 ([facility]) COVID-19 dose #1 given elsewhere Unspecified 05/29/2020 02:3 9:00 PM EDT completed eCW1 ([facility]) COVID-19 dose #1 given elsewhere Unspecified 05/29/2020 02:3 9:00 PM EDT completed eCW1 ([facility]) COVID-19 dose #1 given elsewhere Unspecified 05/29/2020 02:3 9:00 PM EDT completed eCW1 ([facility]) COVID-19 dose #1 given elsewhere Unspecified 05/29/2020 02:3 9:00 PM EDT completed eCW1 ([facility]) COVID-19 dose #1 given elsewhere Unspecified 05/29/2020 02:3 9:00 PM EDT completed eCW1 ([facility]) COVID-19 VACCINE Faraz 05/29/2020 12:00:00 AM EDT completed [facility] Vaccine Series Complete: YESThis Data wa s Submitted to [facility] [employer]. Medications Medication Brand Name Start Date Product Form Dose Route Admi nistrative Instructions Pharmacy Instructions Status Indications Reaction Description Data Source(s) 5-325 mg 02/19/2021 12:00:00 AM EST tablet 45 TAKE ONE TABLET BY MOUTH EVERY 4 TO 6 HOURS NEEDED FOR PAIN MAXIMUM DAILY DOSE = 8 TAKE ONE TABLET BY MOUTH EVERY 4 TO 6 HOURS NEEDED FOR PAIN MAXIMUM DAILY DOSE = 8 SOLD: 02/20/2021 [facility] atorvastatin 10 MG Oral Tablet ATORVASTATIN CALCIUM 02/12/2021 1 2:00:00 AM EST tablet 30 TAKE ONE TABLET BY MOUTH EVERY D AY TAKE ONE TABLET BY MOUTH EVERY DAY SOLD: 02/14/2021 [facility] 400 mg (241.3 mg magnesium) 02/11/2021 12:00:00 AM EST table t 60 TAKE ONE TABLET BY MOUTH TWICE A DAY WITH FOOD MAXIMUM DAILY DOSE = 2 TABLETS TAKE ONE TABLET BY MOUTH TWICE A DAY WITH FOOD MAXIMUM DAILY DOSE = 2 TABLETS SOLD: 02/12/2021 [facility] Acyclovir 400 MG Oral Tablet ACYCLOVIR 02/02/2021 12:00:00 AM EST tabl et 60 TAKE ONE TABLET BY MOUTH TWICE A DAY TAKE ONE TABLET BY MOUTH TWICE A DAY SOLD: 02/02/2021 [facility] 10 mg 01/23/2021 12:00:00 AM EST tablet 30 TAKE ONE TABLET BY MOUTH EVERY 6 HOURS NEEDED TAKE ONE TABLET BY MOUTH EVERY 6 HOURS NEEDED SOLD: 01/23/2021 [facility] 10 mg 01/23/2021 12:00:00 AM EST tablet 30 TAKE ONE TABLET BY MOUTH EVERY 6 HOURS NEEDED TAKE ONE TABLET BY MOUTH EVERY 6 HOURS NEEDED SOLD: 02/12/2021 [facility] 4 mg 01/23/2021 12:00:00 AM EST tablet 30 TAKE 5 TABLETS(20MG TOTAL) BY MOUTH ONCE A WEEK TAKE 5 TABLETS(20MG TOTAL) BY MOUTH ONCE A WEEK SOLD: 01/23/2021 [facility] 50 mg 01/23/2021 12:00:00 AM EST capsule 30 TAKE ONE CAPSULE BY MOUTH EVERY DAY MAXIMUM DAILY DOSE = 1 CAPSULE TAKE ONE CAPSULE BY MOUTH EVERY DAY MAXI MUM DAILY DOSE = 1 CAPSULE SOLD: 01/23/2021 [facility] 25 mg 01/22/2021 12:00:00 AM EST capsule 60 TAKE ONE CAPSULE BY MOUTH TWICE A DAY MAXIMUM DAILY DOSE = 2 CAPSULES TAKE ONE CAPSULE BY MOUTH TWICE A DAY MAXIMUM DAILY DOSE = 2 CAPSULES SOLD: 01/23/2021 [facility] 25 mg 12/24/2020 12:00:00 AM EDT capsule 60 TAKE ONE CAPSULE BY MOUTH TWICE A DAY MAXIMUM DAILY DOSE = 2 TAKE ONE CAPSULE BY MOUTH TWICE A DAY YRIS IQBAL DAILY DOSE = 2 SOLD: 12/24/2020 [facility] pregabalin 25 MG Oral Capsule Pregabalin 25 MG Pregabalin 25 MG 12/23/2020 12:00:00 AM EDT 1.0 {capsule} active P regabalin 25 MG eCW1 ([facility]) 5-325 mg 12/23/2020 12:00:00 AM EDT tablet 45 TAKE ONE TABLET BY MOUTH EVERY 4 TO 6 HOURS NEEDED FOR PAIN MAXIMUM DAILY DOSE = 8 TABLETS TAKE ONE TABLET BY MOUTH EVERY 4 TO 6 HOURS NEEDED FOR PAIN MAXIMUM DAILY DOSE = 8 TABLETS SOLD: 12/23/2020 [facility] 4 mg 12/18/2020 12:00:00 AM EDT tablet 20 TAKE 5 TABLETS BY MOUTH ONCE A WEEK TAKE 5 TABLETS BY MOUTH ONCE A WEEK SOLD: 12/18/2020 [facility] 20 mEq 12/14/2020 12:00:00 AM EDT tablet extended release 60 TAKE ONE TABLET BY MOUTH TWICE A DAY WITH FOOD TAKE ONE TABLET BY MOUTH TWICE A DAY WITH FOOD SOLD: 12/14/2020 [facility] 20 mEq 12/14/2020 12:00:00 AM EDT tablet extended release 60 TAKE ONE TABLET BY MOUTH TWICE A DAY WITH FOOD TAKE ONE TABLET BY MOUTH TWICE A DAY WITH FOOD SOLD: 01/19/2021 [facility] gabapentin 100 MG Oral Capsule Gabapentin 100 MG Gabapentin 100 MG 12/09/2020 12:00:00 AM EDT active Gabapent in 100 MG eCW1 ([facility]) gabapentin 100 MG Oral Capsule Gabapentin 100 MG Gabapentin 100 MG 12/09/2020 12:00:00 AM EDT suspended Gabap entin 100 MG eCW1 ([facility]) 100 mg 12/09/2020 12:00:00 AM EDT capsule 90 TAKE 1 CAPSULE BY MOUTH DAILY FOR 1 WEEK THEN 1 CAPSULE TWO TIMES A DAY FOR 1 WEEK THEN 1 CAPSULE THREE TIMES A DAY TAKE 1 CAPSULE BY MOUTH DAILY FOR 1 WEEK THEN 1 CAPSULE TWO TIMES A DAY FOR 1 WEEK THEN 1 CAPSULE THREE TIMES A DAY SOLD: 12/09/2020 [facility] gabapentin 100 MG Oral Capsule Gabapentin 100 MG Gabapentin 100 MG 12/09/2020 12:00:00 AM EDT active Gabapent in 100 MG eCW1 ([facility]) pantoprazole 40 MG Delayed Release Oral Tablet PANTOPRAZOLE SODIUM 12/01/2020 12:00:00 AM EDT tablet,delayed release (DR/EC) 60 T MATTI ONE TABLET BY MOUTH TWICE A DAY TAKE ONE TABLET BY MOUTH TWICE A DAY SOLD: 01/08/2021 [facility] pantoprazole 40 MG Delayed Release Oral Tablet PANTOPRAZOLE SODIUM 12/01/2020 12:00:00 AM EDT tablet,delayed release (DR/EC) 60 T MATTI ONE TABLET BY MOUTH TWICE A DAY TAKE ONE TABLET BY MOUTH TWICE A DAY SOLD: 02/06/2021 [facility] pantoprazole 40 MG Delayed Release Oral Tablet PANTOPRAZOLE SODIUM 12/01/2020 12:00:00 AM EDT tablet,delayed release (DR/EC) 60 T MATTI ONE TABLET BY MOUTH TWICE A DAY TAKE ONE TABLET BY MOUTH TWICE A DAY SOLD: 12/01/2020 [facility] duloxetine 30 MG Delayed Release Oral Capsule DULoxeti ne HCl 30 MG DULoxetine HCl 30 MG 11/30/2020 12:00:00 AM EDT 1.0 {capsule} a ctive DULoxetine HCl 30 MG eCW1 ([facility]) 30 mg 11/30/2020 12:00:00 AM EDT capsule,delayed release (DR/EC) 30 TAKE 1 CAPSULE BY MOUTH ONCE A DAY TAKE 1 CAPSULE BY MOUTH ONCE A DAY SOLD: 11/30/2020 [facility] 20 mg 11/25/2020 12:00:00 AM EDT tablet 90 TAKE ONE TABLET BY MOUTH EVERY DAY TAKE ONE TABLET BY MOUTH EVERY DAY SOLD: 11/25/2020 [facility] 20 mg 11/25/2020 12:00:00 AM EDT tablet 90 TAKE ONE TABLET BY MOUTH EVERY DAY TAKE ONE TABLET BY MOUTH EVERY DAY SOLD: 02/12/2021 [facility] 81 mg 11/17/2020 12:00:00 AM EDT tablet,chewable 90 CHEW ONE TABLET BY MOUTH EVERY DAY CHEW ONE TABLET BY MOUTH EVERY DAY SOLD: 02/20/2021 [facility] 81 mg 11/17/2020 12:00:00 AM EDT tablet,chewable 90 CHEW ONE TABLET BY MOUTH EVERY DAY CHEW ONE TABLET BY MOUTH EVERY DAY SOLD: 11/17/2020 [facility] atorvastatin 10 MG Oral Tablet ATORVASTATIN CALCIUM 11/05/2020 1 2:00:00 AM EDT tablet 30 TAKE ONE TABLET BY MOUTH EVERY D AY TAKE ONE TABLET BY MOUTH EVERY DAY SOLD: 01/08/2021 [facility] atorvastatin 10 MG Oral Tablet ATORVASTATIN CALCIUM 11/05/2020 1 2:00:00 AM EDT tablet 30 TAKE ONE TABLET BY MOUTH EVERY D AY TAKE ONE TABLET BY MOUTH EVERY DAY SOLD: 11/30/2020 [facility] atorvastatin 10 MG Oral Tablet ATORVASTATIN CALCIUM 11/05/2020 1 2:00:00 AM EDT tablet 30 TAKE ONE TABLET BY MOUTH EVERY D AY TAKE ONE TABLET BY MOUTH EVERY DAY SOLD: 11/05/2020 [facility] 5-325 mg 10/29/2020 12:00:00 AM EDT tablet 45 TAKE ONE TABLET BY MOUTH THREE TIMES A DAY NEEDED FOR PAIN MAXIMUM DAILY DOSE = 3 TABLETS TAKE ONE TABLET BY MOUTH THREE TIMES A DAY NEEDED FOR PAIN MAXIMUM DAILY DOSE = 3 TABLETS SOLD: 10/29/2020 [facility] 25 mg 10/21/2020 12:00:00 AM EDT tablet 30 TAKE 1/2 TABLET BY MOUTH TWO TIMES A DAY TAKE 1/2 TABLET BY MOUTH TWO TIMES A DAY SOLD: 12/16/2020 [facility] 25 mg 10/21/2020 12:00:00 AM EDT tablet 30 TAKE 1/2 TABLET BY MOUTH TWO TIMES A DAY TAKE 1/2 TABLET BY MOUTH TWO TIMES A DAY SOLD: 10/21/2020 [facility] 25 mg 10/21/2020 12:00:00 AM EDT tablet 30 TAKE 1/2 TABLET BY MOUTH TWO TIMES A DAY TAKE 1/2 TABLET BY MOUTH TWO TIMES A DAY SOLD: 01/19/2021 [facility] 25 mg 10/21/2020 12:00:00 AM EDT tablet 30 TAKE 1/2 TABLET BY MOUTH TWO TIMES A DAY TAKE 1/2 TABLET BY MOUTH TWO TIMES A DAY SOLD: 11/17/2020 [facility] 20 mEq 10/20/2020 12:00:00 AM EDT tablet extended release 60 TAKE ONE TABLET BY MOUTH TWICE A DAY WITH FOOD TAKE ONE TABLET BY MOUTH TWICE A DAY WITH FOOD SOLD: 11/16/2020 [facility] 20 mEq 10/20/2020 12:00:00 AM EDT tablet extended release 60 TAKE ONE TABLET BY MOUTH TWICE A DAY WITH FOOD TAKE ONE TABLET BY MOUTH TWICE A DAY WITH FOOD SOLD: 10/20/2020 [facility] 5-325 mg 10/01/2020 12:00:00 AM EDT tablet 15 TAKE 1 TABLET BY MOUTH 3 TIMES A DAY NEEDED FOR PAIN MAX DAILY DOSE = 3 TABLETS TAKE 1 TABLET BY MOUTH 3 TIMES A DAY NEEDED FOR PAIN MAX DAILY DOSE = 3 TABLETS SOLD: 10/01/2020 [facility] Acyclovir 400 MG Oral Tablet ACYCLOVIR 09/04/2020 12:00:00 AM EDT tabl et 60 TAKE ONE TABLET BY MOUTH TWICE A DAY TAKE ONE TABLET BY MOUTH TWICE A DAY SOLD: 12/16/2020 [facility] Acyclovir 400 MG Oral Tablet ACYCLOVIR 09/04/2020 12:00:00 AM EDT tabl et 60 TAKE ONE TABLET BY MOUTH TWICE A DAY TAKE ONE TABLET BY MOUTH TWICE A DAY SOLD: 09/05/2020 [facility] Acyclovir 400 MG Oral Tablet ACYCLOVIR 09/04/2020 12:00:00 AM EDT tabl et 60 TAKE ONE TABLET BY MOUTH TWICE A DAY TAKE ONE TABLET BY MOUTH TWICE A DAY SOLD: 11/16/2020 [facility] Acyclovir 400 MG Oral Tablet ACYCLOVIR 09/04/2020 12:00:00 AM EDT tabl et 60 TAKE ONE TABLET BY MOUTH TWICE A DAY TAKE ONE TABLET BY MOUTH TWICE A DAY SOLD: 10/12/2020 [facility] 10 mg 08/26/2020 12:00:00 AM EDT tablet 30 TAKE ONE TABLET BY MOUTH EVERY 6 HOURS TAKE ONE TABLET BY MOUTH EVERY 6 HOURS SOLD: 09/05/2020 [facility] pantoprazole 40 MG Delayed Release Oral Tablet PANTOPRAZOLE SODIUM 08/18/2020 12:00:00 AM EDT tablet,delayed release (DR/EC) 60 T MATTI ONE TABLET BY MOUTH TWICE A DAY TAKE ONE TABLET BY MOUTH TWICE A DAY SOLD: 10/30/2020 [facility] pantoprazole 40 MG Delayed Release Oral Tablet PANTOPRAZOLE SODIUM 08/18/2020 12:00:00 AM EDT tablet,delayed release (DR/EC) 60 T MATTI ONE TABLET BY MOUTH TWICE A DAY TAKE ONE TABLET BY MOUTH TWICE A DAY SOLD: 10/05/2020 [facility] pantoprazole 40 MG Delayed Release Oral Tablet PANTOPRAZOLE SODIUM 08/18/2020 12:00:00 AM EDT tablet,delayed release (DR/EC) 60 T MATTI ONE TABLET BY MOUTH TWICE A DAY TAKE ONE TABLET BY MOUTH TWICE A DAY SOLD: 08/18/2020 [facility] 20 mEq 08/17/2020 12:00:00 AM EDT tablet extended release 60 TAKE ONE TABLET BY MOUTH TWICE A DAY WITH FOOD TAKE ONE TABLET BY MOUTH TWICE A DAY WITH FOOD SOLD: 09/22/2020 [facility] 20 mEq 08/17/2020 12:00:00 AM EDT tablet extended release 60 TAKE ONE TABLET BY MOUTH TWICE A DAY WITH FOOD TAKE ONE TABLET BY MOUTH TWICE A DAY WITH FOOD SOLD: 08/17/2020 [facility] 400 mg (241.3 mg magnesium) 08/04/2020 12:00:00 AM EDT table t 60 TAKE ONE TABLET BY MOUTH TWICE A DAY TAKE ONE TABLET BY MOUTH TWICE A DAY SOLD: 08/04/2020 [facility] 400 mg (241.3 mg magnesium) 08/04/2020 12:00:00 AM EDT table t 60 TAKE ONE TABLET BY MOUTH TWICE A DAY TAKE ONE TABLET BY MOUTH TWICE A DAY SOLD: 12/27/2020 [facility] 400 mg (241.3 mg magnesium) 08/04/2020 12:00:00 AM EDT table t 60 TAKE ONE TABLET BY MOUTH TWICE A DAY TAKE ONE TABLET BY MOUTH TWICE A DAY SOLD: 11/02/2020 [facility] 400 mg (241.3 mg magnesium) 08/04/2020 12:00:00 AM EDT table t 60 TAKE ONE TABLET BY MOUTH TWICE A DAY TAKE ONE TABLET BY MOUTH TWICE A DAY SOLD: 11/29/2020 [facility] atorvastatin 10 MG Oral Tablet ATORVASTATIN CALCIUM 07/22/2020 1 2:00:00 AM EDT tablet 30 TAKE ONE TABLET BY MOUTH EVERY D AY TAKE ONE TABLET BY MOUTH EVERY DAY SOLD: 09/05/2020 [facility] atorvastatin 10 MG Oral Tablet ATORVASTATIN CALCIUM 07/22/2020 1 2:00:00 AM EDT tablet 30 TAKE ONE TABLET BY MOUTH EVERY D AY TAKE ONE TABLET BY MOUTH EVERY DAY SOLD: 07/22/2020 [facility] atorvastatin 10 MG Oral Tablet ATORVASTATIN CALCIUM 07/22/2020 1 2:00:00 AM EDT tablet 30 TAKE ONE TABLET BY MOUTH EVERY D AY TAKE ONE TABLET BY MOUTH EVERY DAY SOLD: 10/05/2020 [facility] atorvastatin 10 MG Oral Tablet atorvastatin (LIPITOR) 10 MG tablet atorvastatin (LIPITOR) 10 MG tablet 07/21/2020 12:00:00 AM EDT active TAKE ONE TABLET BY MOUTH EVERY DAY [facility] 20 mEq 07/17/2020 12:00:00 AM EDT tablet extended release 60 TAKE ONE TABLET BY MOUTH TWICE A DAY WITH FOOD TAKE ONE TABLET BY MOUTH TWICE A DAY WITH FOOD SOLD: 07/17/2020 [facility] 50 mg 07/17/2020 12:00:00 AM EDT tablet 60 TAKE ONE TABLET BY MOUTH TWO TIMES A DAY NEEDED FOR PAIN MAXIMUM DAILY DOSE = 2 TABLETS TAKE ONE TABLET BY MOUTH TWO TIMES A DAY NEEDED FOR PAIN MAXIMUM DAILY DOSE = 2 TABLETS SOLD: 07/17/2020 [facility] 30 mg 07/08/2020 12:00:00 AM EDT capsule,delayed release (DR/EC) 50 TAKE 1 CAPSULE BY MOUTH DAILY FOR 7 DAYS THEN INCREASE TO 2 CAPSULES DAILY DIRECTED TAKE 1 CAPSULE BY MOUTH DAILY FOR 7 DAYS THEN INCREASE TO 2 CAPSULES DAILY DIRECTED SOLD: 07/08/2020 [facility] 17.5-3.13-1.6 gram 06/17/2020 12:00:00 AM EDT recon soln 354 DIRECTED , SEE DR TENA INSTRUCTIONS DIRECTED , SEE DR TENA INSTRUCTIONS SOLD: 06/17/2020 [facility] Suprep Bowel Prep Kit Suprep Bowel Prep Kit 06/16/2020 12:00:00 AM EDT active MEDENT ([facility], ) Magnesium Hydroxide 80 MG/ML Oral Suspension Milk Of Magnesi a 06/16/2020 12:00:00 AM EDT ORAL active M EDENT ([facility], ) 20 mEq 06/15/2020 12:00:00 AM EDT tablet extended release 60 TAKE ONE TABLET BY MOUTH TWICE A DAY WITH FOOD TAKE ONE TABLET BY MOUTH TWICE A DAY WITH FOOD SOLD: 06/15/2020 [facility] 25 mg 06/15/2020 12:00:00 AM EDT tablet 30 TAKE 1/2 TABLET BY MOUTH TWO TIMES A DAY TAKE 1/2 TABLET BY MOUTH TWO TIMES A DAY SOLD: 06/15/2020 [facility] 25 mg 06/15/2020 12:00:00 AM EDT tablet 30 TAKE 1/2 TABLET BY MOUTH TWO TIMES A DAY TAKE 1/2 TABLET BY MOUTH TWO TIMES A DAY SOLD: 09/07/2020 [facility] 25 mg 06/15/2020 12:00:00 AM EDT tablet 30 TAKE 1/2 TABLET BY MOUTH TWO TIMES A DAY TAKE 1/2 TABLET BY MOUTH TWO TIMES A DAY SOLD: 07/17/2020 [facility] 25 mg 06/15/2020 12:00:00 AM EDT tablet 30 TAKE 1/2 TABLET BY MOUTH TWO TIMES A DAY TAKE 1/2 TABLET BY MOUTH TWO TIMES A DAY SOLD: 08/17/2020 [facility] 100 mg 06/12/2020 12:00:00 AM EDT tablet 180 TAKE 2 TABLETS BY MOUTH ONCE A DAY TAKE 2 TABLETS BY MOUTH ONCE A DAY SOLD: 06/12/2020 [facility] 100 mg 06/12/2020 12:00:00 AM EDT tablet 180 TAKE 2 TABLETS BY MOUTH ONCE A DAY TAKE 2 TABLETS BY MOUTH ONCE A DAY SOLD: 11/20/2020 [facility] 20 mg 05/29/2020 12:00:00 AM EDT tablet 90 TAKE ONE TABLET BY MOUTH EVERY DAY TAKE ONE TABLET BY MOUTH EVERY DAY SOLD: 05/29/2020 [facility] 20 mg 05/29/2020 12:00:00 AM EDT tablet 90 TAKE ONE TABLET BY MOUTH EVERY DAY TAKE ONE TABLET BY MOUTH EVERY DAY SOLD: 08/18/2020 [facility] torsemide 20 MG Oral Tablet torsemide (DEMADEX) 20 MG tablet torsemide (DEMADEX) 20 MG tablet 05/28/2020 12:00:00 AM EDT 20 mg Oral activ e Take 1 tablet (20 mg total) by mouth daily [facility] Azelastine HCl 0.1 % Azelastine HCl 0.1 % 05/15/2020 12:00:00 AM ES T 1.0 {puff_in_each_nostril} active Azelastin e HCl 0.1 % eCW1 ([facility]) 137 mcg (0.1 %) 05/15/2020 12:00:00 AM EST aerosol,spray 30 SPRAY 1 SPRAY IN EACH NOSTRIL EVERY DAY SPRAY 1 SPRAY IN EACH NOSTRIL EVERY DAY SOLD: 05/15/2020 [facility] Azelastine HCl 0.1 % Azelastine HCl 0.1 % 05/15/2020 12:00:00 AM ES T 1.0 {puff_in_each_nostril} active Azelastin e HCl 0.1 % eCW1 ([facility]) Azelastine HCl 0.1 % Azelastine HCl 0.1 % 05/15/2020 12:00:00 AM ES T 1.0 {puff_in_each_nostril} active Azelastin e HCl 0.1 % eCW1 ([facility]) Azelastine HCl 0.1 % Azelastine HCl 0.1 % 05/15/2020 12:00:00 AM ES T 1.0 {puff_in_each_nostril} active Azelastin e HCl 0.1 % eCW1 ([facility]) Azelastine HCl 0.1 % Azelastine HCl 0.1 % 05/15/2020 12:00:00 AM ES T 1.0 {puff_in_each_nostril} active Azelastin e HCl 0.1 % eCW1 ([facility]) Azelastine HCl 0.1 % Azelastine HCl 0.1 % 05/15/2020 12:00:00 AM ES T 1.0 {puff_in_each_nostril} active Azelastin e HCl 0.1 % eCW1 ([facility]) Azelastine HCl 0.1 % Azelastine HCl 0.1 % 05/15/2020 12:00:00 AM ES T 1.0 {puff_in_each_nostril} active Azelastin e HCl 0.1 % eCW1 ([facility]) Azelastine HCl 0.1 % Azelastine HCl 0.1 % 05/15/2020 12:00:00 AM ES T 1.0 {puff_in_each_nostril} active Azelastin e HCl 0.1 % eCW1 ([facility]) Azelastine HCl 0.1 % Azelastine HCl 0.1 % 05/15/2020 12:00:00 AM ES T 1.0 {puff_in_each_nostril} active Azelastin e HCl 0.1 % eCW1 ([facility]) Azelastine HCl 0.1 % Azelastine HCl 0.1 % 05/15/2020 12:00:00 AM ES T 1.0 {puff_in_each_nostril} active Azelastin e HCl 0.1 % eCW1 ([facility]) Azelastine HCl 0.1 % Azelastine HCl 0.1 % 05/15/2020 12:00:00 AM ES T 1.0 {puff_in_each_nostril} active Azelastin e HCl 0.1 % eCW1 ([facility]) 20 mEq 05/08/2020 12:00:00 AM EST tablet extended release 60 TAKE ONE TABLET BY MOUTH TWICE A DAY WITH FOOD TAKE ONE TABLET BY MOUTH TWICE A DAY WITH FOOD SOLD: 05/08/2020 [employer] Sodium Chloride 0.111 MEQ/ML Nasal Solut ion sodium chloride (OCEAN) 0.65 % nasal spray sodium chloride (OCEAN) 0.65 % nasal spray 05/06/2020 12:00:00 A M EST 1 {spray} Nasal active 1 spray into each nostri l as needed for congestion [facility] Metoprolol Tartrate 25 MG Oral Tablet me toprolol tartrate (LOPRESSOR) 25 MG tablet metoprolol tartrate (LOPRESSOR) 25 MG tablet 05/06/2020 12:0 0:00 AM EST 12.5 mg Oral active Take 0.5 tablets (12.5 mg total) by mouth 2 (two) times a day [facility] 0.65 % 05/06/2020 12:00:00 AM EST aerosol,spray 44 SPRAY 1 SPRAY IN EACH NOSTRIL NEEDED FOR CONGESTION SPRAY 1 SPRAY IN EACH NOSTRIL NEEDED FOR CONGESTION SOLD: 05/08/2020 [facility] 0.65 % 05/06/2020 12:00:00 AM EST aerosol,spray 44 SPRAY 1 SPRAY IN EACH NOSTRIL NEEDED FOR CONGESTION SPRAY 1 SPRAY IN EACH NOSTRIL NEEDED FOR CONGESTION SOLD: 06/07/2020 [facility] Fludrocortisone 0.1 MG Oral Tablet fludrocortisone (FL ORINEF) 0.1 MG tablet fludrocortisone (FLORINEF) 0.1 MG tablet 05/01/2020 12:00:00 AM EST Oral aborted Take by mouth daily [facility] 0.1 mg 05/01/2020 12:00:00 AM EST tablet 30 TAKE ONE TABLET BY MOUTH EVERY DAY TAKE ONE TABLET BY MOUTH EVERY DAY SOLD: 05/01/2020 [facility] pantoprazole 40 MG Delayed Release Oral Tablet PANTOPRAZOLE SODIUM 04/28/2020 12:00:00 AM EST tablet,delayed release (DR/EC) 60 T MATTI ONE TABLET BY MOUTH TWICE A DAY TAKE ONE TABLET BY MOUTH TWICE A DAY SOLD: 05/27/2020 [facility] pantoprazole 40 MG Delayed Release Oral Tablet PANTOPRAZOLE SODIUM 04/28/2020 12:00:00 AM EST tablet,delayed release (DR/EC) 60 T MATTI ONE TABLET BY MOUTH TWICE A DAY TAKE ONE TABLET BY MOUTH TWICE A DAY SOLD: 04/28/2020 [facility] pantoprazole 40 MG Delayed Release Oral Tablet PANTOPRAZOLE SODIUM 04/28/2020 12:00:00 AM EST tablet,delayed release (DR/EC) 60 T MATTI ONE TABLET BY MOUTH TWICE A DAY TAKE ONE TABLET BY MOUTH TWICE A DAY SOLD: 07/22/2020 [facility] 25 mg 04/28/2020 12:00:00 AM EST tablet 60 TAKE ONE TABLET BY MOUTH TWICE A DAY WITH FOOD TAKE ONE TABLET BY MOUTH TWICE A DAY WITH FOOD SOLD: 04/29/2020 [facility] pantoprazole 40 MG Delayed Release Oral Tablet PANTOPRAZOLE SODIUM 04/28/2020 12:00:00 AM EST tablet,delayed release (DR/EC) 60 T MATTI ONE TABLET BY MOUTH TWICE A DAY TAKE ONE TABLET BY MOUTH TWICE A DAY SOLD: 06/24/2020 [facility] atorvastatin 10 MG Oral Tablet ATORVASTATIN CALCIUM 04/14/2020 1 2:00:00 AM EST tablet 30 TAKE ONE TABLET BY MOUTH EVERY D AY TAKE ONE TABLET BY MOUTH EVERY DAY SOLD: 06/15/2020 [facility] atorvastatin 10 MG Oral Tablet ATORVASTATIN CALCIUM 04/14/2020 1 2:00:00 AM EST tablet 30 TAKE ONE TABLET BY MOUTH EVERY D AY TAKE ONE TABLET BY MOUTH EVERY DAY SOLD: 05/13/2020 [facility] atorvastatin 10 MG Oral Tablet ATORVASTATIN CALCIUM 04/14/2020 1 2:00:00 AM EST tablet 30 TAKE ONE TABLET BY MOUTH EVERY D AY TAKE ONE TABLET BY MOUTH EVERY DAY SOLD: 04/14/2020 [facility] atorvastatin 10 MG Oral Tablet atorvastatin (LIPITOR) 10 MG tablet atorvastatin (LIPITOR) 10 MG tablet 04/13/2020 12:00:00 AM EST 10 mg Oral active Take 1 tablet (10 mg total) by mouth daily [facility] Blood Pressure Cuff - Blood Pressure Cuff - 04/09/2020 12:00:00 AM EST active Blood Pressure Cuff - eCW1 ( [facility]) Diphenhydramine-Zinc Acetate 1-0.1 % UNK 04/09/2020 12:00: 00 AM EST 1.0 {application_as_needed} active Diphenhy dramine-Zinc Acetate 1-0.1 % eCW1 ([facility]) Diphenhydramine-Zinc Acetate 1-0.1 % UNK 04/09/2020 12:00: 00 AM EST 1.0 {application_as_needed} active Diphenhy dramine-Zinc Acetate 1-0.1 % eCW1 ([facility]) diphenhydrAMINE-Zinc Acetate 1-0.1 % UNK 04/09/2020 12:00: 00 AM EST 1.0 {application_as_needed} active diphenhy drAMINE-Zinc Acetate 1-0.1 % eCW1 ([facility]) diphenhydrAMINE-Zinc Acetate 1-0.1 % UNK 04/09/2020 12:00: 00 AM EST 1.0 {application_as_needed} active diphenhy drAMINE-Zinc Acetate 1-0.1 % eCW1 ([facility]) Blood Pressure Cuff - Blood Pressure Cuff - 04/09/2020 12:00:00 AM EST active Blood Pressure Cuff - eCW1 ( [facility]) Diphenhydramine-Zinc Acetate 1-0.1 % UNK 04/09/2020 12:00: 00 AM EST 1.0 {application_as_needed} active Diphenhy dramine-Zinc Acetate 1-0.1 % eCW1 ([facility]) Blood Pressure Cuff - Blood Pressure Cuff - 04/09/2020 12:00:00 AM EST active Blood Pressure Cuff - eCW1 ( [facility]) Blood Pressure Cuff - Blood Pressure Cuff - 04/09/2020 12:00:00 AM EST active Blood Pressure Cuff - eCW1 ( [facility]) diphenhydrAMINE-Zinc Acetate 1-0.1 % UNK 04/09/2020 12:00: 00 AM EST 1.0 {application_as_needed} active diphenhy drAMINE-Zinc Acetate 1-0.1 % eCW1 ([facility]) Blood Pressure Cuff - Blood Pressure Cuff - 04/09/2020 12:00:00 AM EST active Blood Pressure Cuff - eCW1 ( [facility]) Blood Pressure Cuff - Blood Pressure Cuff - 04/09/2020 12:00:00 AM EST active Blood Pressure Cuff - eCW1 ( [facility]) Blood Pressure Cuff - Blood Pressure Cuff - 04/09/2020 12:00:00 AM EST active Blood Pressure Cuff - eCW1 ( [facility]) Diphenhydramine-Zinc Acetate 1-0.1 % UNK 04/09/2020 12:00: 00 AM EST 1.0 {application_as_needed} active Diphenhy dramine-Zinc Acetate 1-0.1 % eCW1 ([facility]) Potassium Chloride 20 MEQ Extended Relea se Oral Tablet Potassium Chloride ER 20 MEQ TBCR Potassium Chloride ER 20 MEQ TBCR 04/09/2020 12:00:00 AM EST 2 {tbl} Oral active Take 2 tablets by mo [facility] every morning [facility] Blood Pressure Cuff - Blood Pressure Cuff - 04/09/2020 12:00:00 AM EST active Blood Pressure Cuff - eCW1 ( [facility]) diphenhydrAMINE-Zinc Acetate 1-0.1 % UNK 04/09/2020 12:00: 00 AM EST 1.0 {application_as_needed} active diphenhy drAMINE-Zinc Acetate 1-0.1 % eCW1 ([facility]) Diphenhydramine-Zinc Acetate 1-0.1 % UNK 04/09/2020 12:00: 00 AM EST 1.0 {application_as_needed} active Diphenhy dramine-Zinc Acetate 1-0.1 % eCW1 ([facility]) Blood Pressure Cuff - Blood Pressure Cuff - 04/09/2020 12:00:00 AM EST active Blood Pressure Cuff - eCW1 ( [facility]) diphenhydrAMINE-Zinc Acetate 1-0.1 % UNK 04/09/2020 12:00: 00 AM EST 1.0 {application_as_needed} active diphenhy drAMINE-Zinc Acetate 1-0.1 % eCW1 ([facility]) Blood Pressure Cuff - Blood Pressure Cuff - 04/09/2020 12:00:00 AM EST active Blood Pressure Cuff - eCW1 ( [facility]) Blood Pressure Cuff - Blood Pressure Cuff - 04/09/2020 12:00:00 AM EST active Blood Pressure Cuff - eCW1 ( [facility]) Blood Pressure Cuff - Blood Pressure Cuff - 04/09/2020 12:00:00 AM EST active Blood Pressure Cuff - eCW1 ( [facility]) Diphenhydramine-Zinc Acetate 1-0.1 % UNK 04/09/2020 12:00: 00 AM EST 1.0 {application_as_needed} active Diphenhy dramine-Zinc Acetate 1-0.1 % eCW1 ([facility]) diphenhydrAMINE-Zinc Acetate 1-0.1 % UNK 04/09/2020 12:00: 00 AM EST 1.0 {application_as_needed} active diphenhy drAMINE-Zinc Acetate 1-0.1 % eCW1 ([facility]) Blood Pressure Cuff - Blood Pressure Cuff - 04/09/2020 12:00:00 AM EST active Blood Pressure Cuff - eCW1 ( [facility]) Diphenhydramine-Zinc Acetate 1-0.1 % UNK 04/09/2020 12:00: 00 AM EST 1.0 {application_as_needed} active Diphenhy dramine-Zinc Acetate 1-0.1 % eCW1 ([facility]) Blood Pressure Cuff - Blood Pressure Cuff - 04/09/2020 12:00:00 AM EST active Blood Pressure Cuff - eCW1 ( [facility]) Diphenhydramine-Zinc Acetate 1-0.1 % UNK 04/09/2020 12:00: 00 AM EST 1.0 {application_as_needed} active Diphenhy dramine-Zinc Acetate 1-0.1 % eCW1 ([facility]) Blood Pressure Cuff - Blood Pressure Cuff - 04/09/2020 12:00:00 AM EST active Blood Pressure Cuff - eCW1 ( [facility]) Blood Pressure Cuff - Blood Pressure Cuff - 04/09/2020 12:00:00 AM EST active Blood Pressure Cuff - eCW1 ( [facility]) Blood Pressure Cuff - Blood Pressure Cuff - 04/09/2020 12:00:00 AM EST active Blood Pressure Cuff - eCW1 ( [facility]) Blood Pressure Cuff - Blood Pressure Cuff - 04/09/2020 12:00:00 AM EST active Blood Pressure Cuff - eCW1 ( [facility]) diphenhydrAMINE-Zinc Acetate 1-0.1 % UNK 04/09/2020 12:00: 00 AM EST 1.0 {application_as_needed} active diphenhy drAMINE-Zinc Acetate 1-0.1 % eCW1 ([facility]) Diphenhydramine-Zinc Acetate 1-0.1 % UNK 04/09/2020 12:00: 00 AM EST 1.0 {application_as_needed} active Diphenhy dramine-Zinc Acetate 1-0.1 % eCW1 ([facility]) 20 mEq 04/09/2020 12:00:00 AM EST tablet extended release 60 TAKE ONE TABLET BY MOUTH TWICE A DAY WITH FOOD TAKE ONE TABLET BY MOUTH TWICE A DAY WITH FOOD SOLD: 04/09/2020 [facility] Diphenhydramine-Zinc Acetate 1-0.1 % UNK 04/09/2020 12:00: 00 AM EST 1.0 {application_as_needed} active Diphenhy dramine-Zinc Acetate 1-0.1 % eCW1 ([facility]) Diphenhydramine-Zinc Acetate 1-0.1 % UNK 04/09/2020 12:00: 00 AM EST 1.0 {application_as_needed} active Diphenhy dramine-Zinc Acetate 1-0.1 % eCW1 ([facility]) 20 mg 04/06/2020 12:00:00 AM EST tablet 60 TAKE TWO TABLETS BY MOUTH EVERY DAY TAKE TWO TABLETS BY MOUTH EVERY DAY SOLD: 04/07/2020 [facility] Hydralazine Hydrochloride 10 MG Oral Tablet HydrALAZIN E HCl 10 MG HydrALAZINE HCl 10 MG 03/27/2020 12:00:00 AM EST 2.0 {tablet_with_food} active HydrALAZINE HCl 10 MG eCW1 ([facility]) Potassium Chloride 20 MEQ Extended Relea se Oral Tablet Potassium Chloride ER 20 MEQ Potassium Chloride ER 20 MEQ 03/27/2020 12:00:00 AM EST 1.0 {tablet_with_food} active Potassium Chl oride ER 20 MEQ eCW1 ([facility]) Metoprolol Tartrate 25 MG Oral Tablet Metoprolol Tartrate 25 MG 03/27/2020 12:00:00 AM EST active Metoprol ol Tartrate 25 MG eCW1 ([facility]) Metoprolol Tartrate 25 MG Oral Tablet Metoprolol Tartrate 25 MG 03/27/2020 12:00:00 AM EST 1.0 {tablet_with_food} active Metoprolol Tartrate 25 MG eCW1 ([facility]) Metoprolol Tartrate 25 MG Oral Tablet Metoprolol Tartrate 25 MG 03/27/2020 12:00:00 AM EST 1.0 {tablet_with_food} active Metoprolol Tartrate 25 MG eCW1 ([facility]) Metoprolol Tartrate 25 MG Oral Tablet Metoprolol Tartrate 25 MG 03/27/2020 12:00:00 AM EST active Metoprol ol Tartrate 25 MG eCW1 ([facility]) Metoprolol Tartrate 25 MG Oral Tablet Metoprolol Tartrate 25 MG 03/27/2020 12:00:00 AM EST 1.0 {tablet_with_food} active Metoprolol Tartrate 25 MG eCW1 ([facility]) Hydralazine Hydrochloride 10 MG Oral Tablet HydrALAZIN E HCl 10 MG HydrALAZINE HCl 10 MG 03/27/2020 12:00:00 AM EST 2.0 {tablet_with_food} active HydrALAZINE HCl 10 MG eCW1 ([facility]) Metoprolol Tartrate 25 MG Oral Tablet Metoprolol Tartrate 25 MG 03/27/2020 12:00:00 AM EST 1.0 {tablet_with_food} active Metoprolol Tartrate 25 MG eCW1 ([facility]) Metoprolol Tartrate 25 MG Oral Tablet Metoprolol Tartrate 25 MG 03/27/2020 12:00:00 AM EST 1.0 {tablet_with_food} active Metoprolol Tartrate 25 MG eCW1 ([facility]) Hydralazine Hydrochloride 10 MG Oral Tablet HydrALAZIN E HCl 10 MG HydrALAZINE HCl 10 MG 03/27/2020 12:00:00 AM EST 2.0 {tablet_with_food} active HydrALAZINE HCl 10 MG eCW1 ([facility]) Hydralazine Hydrochloride 10 MG Oral Tablet HydrALAZIN E HCl 10 MG HydrALAZINE HCl 10 MG 03/27/2020 12:00:00 AM EST suspende d HydrALAZINE HCl 10 MG eCW1 ([facility]) Metoprolol Tartrate 25 MG Oral Tablet Metoprolol Tartrate 25 MG 03/27/2020 12:00:00 AM EST active Metoprol ol Tartrate 25 MG eCW1 ([facility]) Metoprolol Tartrate 25 MG Oral Tablet Metoprolol Tartrate 25 MG 03/27/2020 12:00:00 AM EST active Metoprol ol Tartrate 25 MG eCW1 ([facility]) Metoprolol Tartrate 25 MG Oral Tablet Metoprolol Tartrate 25 MG 03/27/2020 12:00:00 AM EST 1.0 {tablet_with_food} active Metoprolol Tartrate 25 MG eCW1 ([facility]) Hydralazine Hydrochloride 10 MG Oral Tablet HydrALAZIN E HCl 10 MG HydrALAZINE HCl 10 MG 03/27/2020 12:00:00 AM EST 2.0 {tablet_with_food} active HydrALAZINE HCl 10 MG eCW1 ([facility]) Metoprolol Tartrate 25 MG Oral Tablet Metoprolol Tartrate 25 MG 03/27/2020 12:00:00 AM EST 1.0 {tablet_with_food} active Metoprolol Tartrate 25 MG eCW1 ([facility]) Hydralazine Hydrochloride 10 MG Oral Tablet HydrALAZIN E HCl 10 MG HydrALAZINE HCl 10 MG 03/27/2020 12:00:00 AM EST active HydrALAZINE HCl 10 MG eCW1 ([facility]) Hydralazine Hydrochloride 10 MG Oral Tablet HydrALAZIN E HCl 10 MG HydrALAZINE HCl 10 MG 03/27/2020 12:00:00 AM EST 2.0 {tablet_with_food} active HydrALAZINE HCl 10 MG eCW1 ([facility]) Hydralazine Hydrochloride 10 MG Oral Tablet HydrALAZIN E HCl 10 MG HydrALAZINE HCl 10 MG 03/27/2020 12:00:00 AM EST suspende d HydrALAZINE HCl 10 MG eCW1 ([facility]) Potassium Chloride 20 MEQ Extended Relea se Oral Tablet Potassium Chloride ER 20 MEQ Potassium Chloride ER 20 MEQ 03/27/2020 12:00:00 AM EST 1.0 {tablet_with_food} active Potassium Chl oride ER 20 MEQ eCW1 ([facility]) Metoprolol Tartrate 25 MG Oral Tablet Metoprolol Tartrate 25 MG 03/27/2020 12:00:00 AM EST active Metoprol ol Tartrate 25 MG eCW1 ([facility]) Metoprolol Tartrate 25 MG Oral Tablet Metoprolol Tartrate 25 MG 03/27/2020 12:00:00 AM EST active Metoprol ol Tartrate 25 MG eCW1 ([facility]) Potassium Chloride 20 MEQ Extended Relea se Oral Tablet Potassium Chloride ER 20 MEQ Potassium Chloride ER 20 MEQ 03/27/2020 12:00:00 AM EST 1.0 {tablet_with_food} active Potassium Chl oride ER 20 MEQ eCW1 ([facility]) Hydralazine Hydrochloride 10 MG Oral Tablet HydrALAZIN E HCl 10 MG HydrALAZINE HCl 10 MG 03/27/2020 12:00:00 AM EST 2.0 {tablet_with_food} active HydrALAZINE HCl 10 MG eCW1 ([facility]) Metoprolol Tartrate 25 MG Oral Tablet Metoprolol Tartrate 25 MG 03/27/2020 12:00:00 AM EST active Metoprol ol Tartrate 25 MG eCW1 ([facility]) Potassium Chloride 20 MEQ Extended Relea se Oral Tablet Potassium Chloride ER 20 MEQ Potassium Chloride ER 20 MEQ 03/27/2020 12:00:00 AM EST 1.0 {tablet_with_food} active Potassium Chl oride ER 20 MEQ eCW1 ([facility]) Metoprolol Tartrate 25 MG Oral Tablet Metoprolol Tartrate 25 MG 03/27/2020 12:00:00 AM EST 1.0 {tablet_with_food} active Metoprolol Tartrate 25 MG eCW1 ([facility]) Metoprolol Tartrate 25 MG Oral Tablet Metoprolol Tartrate 25 MG 03/27/2020 12:00:00 AM EST 1.0 {tablet_with_food} active Metoprolol Tartrate 25 MG eCW1 ([facility]) Potassium Chloride 20 MEQ Extended Relea se Oral Tablet Potassium Chloride ER 20 MEQ Potassium Chloride ER 20 MEQ 03/27/2020 12:00:00 AM EST 1.0 {tablet_with_food} active Potassium Chl oride ER 20 MEQ eCW1 ([facility]) Metoprolol Tartrate 25 MG Oral Tablet Metoprolol Tartrate 25 MG 03/27/2020 12:00:00 AM EST 1.0 {tablet_with_food} active Metoprolol Tartrate 25 MG eCW1 ([facility]) Potassium Chloride 20 MEQ Extended Relea se Oral Tablet Potassium Chloride ER 20 MEQ Potassium Chloride ER 20 MEQ 03/27/2020 12:00:00 AM EST 1.0 {tablet_with_food} active Potassium Chl oride ER 20 MEQ eCW1 ([facility]) Potassium Chloride 20 MEQ Extended Relea se Oral Tablet Potassium Chloride ER 20 MEQ Potassium Chloride ER 20 MEQ 03/27/2020 12:00:00 AM EST 1.0 {tablet_with_food} active Potassium Chl oride ER 20 MEQ eCW1 ([facility]) Hydralazine Hydrochloride 10 MG Oral Tablet HydrALAZIN E HCl 10 MG HydrALAZINE HCl 10 MG 03/27/2020 12:00:00 AM EST active HydrALAZINE HCl 10 MG eCW1 ([facility]) Hydralazine Hydrochloride 10 MG Oral Tablet HydrALAZIN E HCl 10 MG HydrALAZINE HCl 10 MG 03/27/2020 12:00:00 AM EST active HydrALAZINE HCl 10 MG eCW1 ([facility]) Potassium Chloride 20 MEQ Extended Relea se Oral Tablet Potassium Chloride ER 20 MEQ Potassium Chloride ER 20 MEQ 03/27/2020 12:00:00 AM EST 1.0 {tablet_with_food} active Potassium Chl oride ER 20 MEQ eCW1 ([facility]) Potassium Chloride 20 MEQ Extended Relea se Oral Tablet Potassium Chloride ER 20 MEQ Potassium Chloride ER 20 MEQ 03/27/2020 12:00:00 AM EST 1.0 {tablet_with_food} active Potassium Chl oride ER 20 MEQ eCW1 ([facility]) Metoprolol Tartrate 25 MG Oral Tablet Metoprolol Tartrate 25 MG 03/27/2020 12:00:00 AM EST active Metoprol ol Tartrate 25 MG eCW1 ([facility]) Metoprolol Tartrate 25 MG Oral Tablet Metoprolol Tartrate 25 MG 03/27/2020 12:00:00 AM EST active Metoprol ol Tartrate 25 MG eCW1 ([facility]) Hydralazine Hydrochloride 10 MG Oral Tablet HydrALAZIN E HCl 10 MG HydrALAZINE HCl 10 MG 03/27/2020 12:00:00 AM EST 2.0 {tablet_with_food} active HydrALAZINE HCl 10 MG eCW1 ([facility]) Hydralazine Hydrochloride 10 MG Oral Tablet HydrALAZIN E HCl 10 MG HydrALAZINE HCl 10 MG 03/27/2020 12:00:00 AM EST 2.0 {tablet_with_food} active HydrALAZINE HCl 10 MG eCW1 ([facility]) Metoprolol Tartrate 25 MG Oral Tablet Metoprolol Tartrate 25 MG 03/27/2020 12:00:00 AM EST active Metoprol ol Tartrate 25 MG eCW1 ([facility]) Metoprolol Tartrate 25 MG Oral Tablet Metoprolol Tartrate 25 MG 03/27/2020 12:00:00 AM EST active Metoprol ol Tartrate 25 MG eCW1 ([facility]) Potassium Chloride 20 MEQ Extended Relea se Oral Tablet Potassium Chloride ER 20 MEQ Potassium Chloride ER 20 MEQ 03/27/2020 12:00:00 AM EST 1.0 {tablet_with_food} active Potassium Chl oride ER 20 MEQ eCW1 ([facility]) Potassium Chloride 20 MEQ Extended Relea se Oral Tablet Potassium Chloride ER 20 MEQ Potassium Chloride ER 20 MEQ 03/27/2020 12:00:00 AM EST 1.0 {tablet_with_food} active Potassium Chl oride ER 20 MEQ eCW1 ([facility]) Metoprolol Tartrate 25 MG Oral Tablet Metoprolol Tartrate 25 MG 03/27/2020 12:00:00 AM EST 1.0 {tablet_with_food} active Metoprolol Tartrate 25 MG eCW1 ([facility]) potassium chloride SA (K-DUR,KLOR-CON) 20 MEQ tablet 72349-0 99-01 03/26/2020 12:00:00 AM EST 20 meq Oral aborted Take 20 mEq by mouth [facility] 20 mEq 03/26/2020 12:00:00 AM EST tablet,ER particles/cry stals 28 TAKE ONE TABLET BY MOUTH TWICE A DAY TAKE ONE TABLET BY MOUTH TWICE A DAY SOLD: 03/26/2020 [facility] 10 mg 03/26/2020 12:00:00 AM EST tablet 180 TAKE TWO TABLETS BY MOUTH THREE TIMES A DAY TAKE TWO TABLETS BY MOUTH THREE TIMES A DAY SOLD: 03/26/2020 [facility] 100 mg 03/23/2020 12:00:00 AM EST tablet 90 TAKE ONE TABLET BY MOUTH EVERY DAY TAKE ONE TABLET BY MOUTH EVERY DAY SOLD: 03/23/2020 [facility] 4 mg 03/15/2020 12:00:00 AM [...] MG tablet 03/15/2020 12:0 0:00 AM EST aborted TAKE ONE TABLET BY MOUTH TWICE A DAY FOR BLOOD PRESSURE [facility] 25 mg 03/15/2020 12:00:00 AM EST tablet 60 TAKE ONE TABLET BY MOUTH TWICE A DAY FOR BLOOD PRESSURE TAKE ONE TABLET BY MOUTH TWICE A DAY FOR BLOOD PRESSUR E SOLD: 03/15/2020 [facility] Promethazine Hydrochloride 25 MG Oral Tablet PROMETHAZINE HC L 03/15/2020 12:00:00 AM EST tablet 20 TAKE ONE TABLET BY MOUTH EVERY 12 HOURS NEEDED FOR NAUSEA AND VOMITING TAKE ONE TABLET BY MOUTH EVERY 12 HOURS NEEDED FOR NAUSEA AND VOMITING SOLD: 03/15/2020 [facility] pantoprazole 40 MG Delayed Release Oral Tablet PANTOPRAZOLE SODIUM 03/15/2020 12:00:00 AM EST tablet,delayed release (DR/EC) 60 T MATTI ONE TABLET BY MOUTH TWICE A DAY TAKE ONE TABLET BY MOUTH TWICE A DAY SOLD: 03/15/2020 [facility] Losartan Potassium 25 MG Oral Tablet losartan (COZAAR) 25 MG tablet losartan (COZAAR) 25 MG tablet 02/20/2020 12:00:00 AM EST 100 mg active 100 mg daily [facility] Ondansetron 4 MG Oral [...] MAX DAILY DOSE 3 TABLETS [facility] 15 mg 01/08/2020 12:00:00 AM EDT tablet [...] TABLET BY MOUTH TWICE A DAY SOLD: 05/08/2020 [facility] 400 mg (241.3 mg magnesium) 01/08/2020 12:00:00 AM EDT table t 60 TAKE ONE TABLET BY MOUTH TWICE A DAY TAKE ONE TABLET BY MOUTH TWICE A DAY SOLD: 01/08/2020 [facility] 400 mg (241.3 mg magnesium) 01/08/2020 12:00:00 AM EDT table t 60 TAKE ONE TABLET BY MOUTH TWICE A DAY TAKE ONE TABLET BY MOUTH TWICE A DAY SOLD: 07/03/2020 [facility] 400 mg (241.3 mg magnesium) 01/08/2020 12:00:00 AM EDT table t 60 TAKE ONE TABLET BY MOUTH TWICE A DAY TAKE ONE TABLET BY MOUTH TWICE A DAY SOLD: 06/05/2020 [facility] 400 mg (241.3 mg magnesium) 01/08/2020 12:00:00 AM EDT table t 60 TAKE ONE TABLET BY MOUTH TWICE A DAY TAKE ONE TABLET BY MOUTH TWICE A DAY SOLD: 02/05/2020 [facility] 100 mg 01/03/2020 12:00:00 AM EDT tablet 90 TAKE ONE TABLET BY MOUTH EVERY DAY TAKE ONE TABLET BY MOUTH EVERY DAY SOLD: 01/03/2020 [facility] 100 mg 01/03/2020 12:00:00 AM EDT tablet 90 TAKE ONE TABLET BY MOUTH EVERY DAY TAKE ONE TABLET BY MOUTH EVERY DAY SOLD: 05/13/2020 [facility] 50 mg 12/30/2019 12:00:00 AM EDT tablet 60 TAKE ONE TABLET BY MOUTH EVERY 6 HOURS NEEDED FOR PAIN MAXIMUM DAILY DOSE = 4 TAKE ONE TABLET BY MOUTH EVERY 6 HOURS NEEDED FOR PAIN MAXIMUM DAILY DOSE = 4 SOLD: 12/30/2019 [facility] 81 mg 12/27/2019 12:00:00 AM EDT tablet,chewable 90 CHEW ONE TABLET BY MOUTH EVERY DAY CHEW ONE TABLET BY MOUTH EVERY DAY SOLD: 12/27/2019 [facility] 10 mEq 12/27/2019 12:00:00 AM EDT tablet extended release 240 TAKE FOUR TABLETS BY MOUTH TWICE A DAY TAKE FOUR TABLETS BY MOUTH TWICE A DAY SOLD: 12/27/2019 [facility] 81 mg 12/27/2019 12:00:00 AM EDT tablet,chewable 90 CHEW ONE TABLET BY MOUTH EVERY DAY CHEW ONE TABLET BY MOUTH EVERY DAY SOLD: 08/17/2020 [facility] atorvastatin 80 MG Oral Tablet ATORVASTATIN CALCIUM 12/23/2019 1 2:00:00 AM EDT tablet 90 TAKE ONE TABLET BY MOUTH EVERY D AY TAKE ONE TABLET BY MOUTH EVERY DAY SOLD: 12/24/2019 [facility] 100 mg 10/01/2019 12:00:00 AM EDT tablet 90 TAKE ONE TABLET BY MOUTH EVERY DAY TAKE ONE TABLET BY MOUTH EVERY DAY SOLD: 12/27/2019 [facility] 100 mg 09/28/2019 12:00:00 AM EDT tablet 90 TAKE ONE TABLET BY MOUTH EVERY DAY TAKE ONE TABLET BY MOUTH EVERY DAY SOLD: 12/26/2019 [facility] torsemide 100 MG Oral Tablet torsemide (DEMADEX) 100 M G tablet torsemide (DEMADEX) 100 MG tablet 09/25/2019 12:00:00 AM EDT 100 mg Oral aborted Take 1 tablet (100 mg total) by mouth daily [facility] Acyclovir 400 MG Oral Tablet ACYCLOVIR 09/24/2019 12:00:00 AM EDT tabl et 60 TAKE ONE TABLET BY MOUTH TWO TIMES A DAY TAKE ONE TABLET BY MOUTH TWO TIMES A DAY SOLD: 07/31/2020 [facility] Acyclovir 400 MG Oral Tablet ACYCLOVIR 09/24/2019 12:00:00 AM EDT tabl et 60 TAKE ONE TABLET BY MOUTH TWO TIMES A DAY TAKE ONE TABLET BY MOUTH TWO TIMES A DAY SOLD: 07/03/2020 [facility] Acyclovir 400 MG Oral Tablet ACYCLOVIR 09/24/2019 12:00:00 AM EDT tabl et 60 TAKE ONE TABLET BY MOUTH TWO TIMES A DAY TAKE ONE TABLET BY MOUTH TWO TIMES A DAY SOLD: 06/04/2020 [facility] Acyclovir 400 MG Oral Tablet ACYCLOVIR 09/24/2019 12:00:00 AM EDT tabl et 60 TAKE ONE TABLET BY MOUTH TWO TIMES A DAY TAKE ONE TABLET BY MOUTH TWO TIMES A DAY SOLD: 05/08/2020 [facility] Acyclovir 400 MG Oral Tablet ACYCLOVIR 09/24/2019 12:00:00 AM EDT tabl et 60 TAKE ONE TABLET BY MOUTH TWO TIMES A DAY TAKE ONE TABLET BY MOUTH TWO TIMES A DAY SOLD: 04/06/2020 [facility] Hydroxyzine Hydrochloride 25 MG Oral Tablet hydrOXYzin e (ATARAX) 25 MG tablet hydrOXYzine (ATARAX) 25 MG tablet 09/23/2019 12:00:00 AM EDT 25 mg Oral aborted Take 25 mg by mouth nightly [facility] atorvastatin 80 MG Oral Tablet atorvastatin (LIPITOR) 80 MG tablet atorvastatin (LIPITOR) 80 MG tablet 09/20/2019 12:00:00 AM EDT 80 mg Oral aborted Take 80 mg by mouth daily [facility] Dexamethasone 4 MG Oral Tablet dexamethasone (DECADRON ) 4 MG tablet dexamethasone (DECADRON) 4 MG tablet 08/17/2019 12:00:00 AM EDT aborted [facility] 4 mg 08/17/2019 12:00:00 AM EDT tablet 40 TAKE 10 TABLETS [40MG] BY MOUTH ON MONDAYS TAKE 10 TABLETS [40MG] BY MOUTH ON MONDAYS SOLD: 01/01/2020 [facility] pantoprazole 40 MG Delayed Release Oral Tablet PANTOPRAZOLE SODIUM 08/14/2019 12:00:00 AM EDT tablet,delayed release (DR/EC) 60 T MATTI ONE TABLET BY MOUTH TWICE A DAY [REFLUX DIFFICULT SWALLOWING] TAKE ONE TABLET BY MOUTH TWICE A DAY [REFLUX DIFFICULT SWALLOWING] SOLD: 12/27/2019 [facility] pomalidomide 2 MG Oral Capsule Pomalidomide (POMALYST) 2 MG CAPS Pomalidomide (POMALYST) 2 MG CAPS 08/01/2019 12:00:00 AM EDT ab orted [facility] tramadol hydrochloride 50 MG Oral Tablet traMADol (ULT TIFF) 50 MG tablet traMADol (ULTRAM) 50 MG tablet 07/15/2019 12:00:00 AM EDT aborted TAKE 1 TAB.BY MOUTH EVERY 6HRS NEEDED FOR PAIN MAX 4TABS/DAY [facility] Acyclovir 400 MG Oral Tablet acyclovir (ZOVIRAX) 400 M G tablet acyclovir (ZOVIRAX) 400 MG tablet 07/13/2019 12:00:00 AM EDT 400 mg Oral aborted Take 400 mg by mouth 2 (two) times a day [facility] Potassium Chloride 10 MEQ Extended Relea se Oral Capsule potassium chloride (MICRO-K) 10 MEQ CR capsule potassium chloride (MICRO-K) 10 MEQ CR capsule 11/18/2015 12:00:00 AM EDT 10 meq Oral aborted Take 10 mEq by mouth 2 (two) times a day [facility] Losartan Potassium 100 MG Oral Tablet losartan (COZAAR ) 100 MG tablet losartan (COZAAR) 100 MG tablet 11/18/2015 12:00:00 AM EDT 100 mg Oral aborted Take 100 mg by mouth daily [facility] Furosemide 40 MG Oral Tablet furosemide (LASIX) 40 MG tablet furosemide (LASIX) 40 MG tablet 10/22/2008 12:00:00 AM EDT Oral aborted Take by mouth [facility] torsemide 20 MG Oral Tablet torsemide (DEMADEX) 20 MG tablet torsemide (DEMADEX) 20 MG tablet 20 mg Oral aborted Take 20 mg by mouth daily [facility] Hydralazine Hydrochloride 10 MG Oral Tab let hydrALAZINE (APRESOLINE) 10 MG tablet hydrALAZINE (APRESOLINE) 10 MG tablet 10 mg Oral aborted Take 10 mg by mouth 3 (three) times a day [facility] Docusate Sodium 100 MG Oral Capsule docusate sodium (C OLACE) 100 MG capsule docusate sodium (COLACE) 100 MG capsule 100 mg Oral aborted Take 100 mg by mouth 2 (two) times a day as needed [facility] docosahexaenoic acid 120 MG / Eicosapent aenoic Acid 180 MG Oral Capsule [place]-3 Fatty Acids (FISH OIL) 1000 MG CAPS [place] Fatty Acids (FISH OIL) 1000 MG CAPS Oral aborted Take by mouth [facility] Loperamide Hydrochloride 2 MG Oral Capsule loperamide (IMODIUM) 2 MG capsule loperamide (IMODIUM) 2 MG capsule 2 mg Oral abor fariba Take 2 mg by mouth 4 (four) times a day as needed for diarrhea [facility] Aspirin 81 MG Delayed Release Oral Tablet aspirin 81 M G EC tablet aspirin 81 MG EC tablet 81 mg Oral aborted Take 81 mg by mouth daily [facility] Colchicine 0.6 MG Oral Tablet colchicine 0.6 MG tablet colch icine 0.6 MG tablet aborted colchicine 0.6 m g tabs [facility] Insurance Providers Payer name Policy type / Coverage type Policy ID Covered green party ID Covered green party's relationship to ling Policy Ling Plan Information MEDICARE [id number] SP [id number] A MEDICARE A [id number] Self [id number] A MEDICAID M [id number] Self [id number] [facility] MEDICARE COMPLETE G [id number] Self [id number] [facility] MEDICARE COMPLETE G [id number] Self [id number] [facility] [id number] SP [id number] MEDICARE COMPLETE [id number] SP [id number] MEDICARE COMPLETE [id number] SP [id number] MEDICAID [id number] SP [id number] MEDICARE COMPLETE [id number] SP [id number] [facility] [id number] SP [id number] MEDICAID [id number] SP [id number] MEDICAID [id number] SP [id number] [facility] [id number] SP [id number] [facility] MEDICARE DUAL G [id number] Self [id number] ARTURO I [id number] Self [id number] [facility] MEDICARE DUAL G [id number] Self [id number] [facility] MEDICARE [id number] Lianne [id number] [facility] MEDICAID [id number] Lianne [id number] [facility] MEDICARE [id number] MEDICAID [id number] xxxxxxxx [id number] MEDICAID [id number] Lianne [id number] ANSI-Medicare Part B [id number] ANSI-Medicaid [id number] ANSI-Not a Secondary Insurance [id number] ANSI-Medicaid [id number] ANSI-Medicare Part B [id number] ANSI-Not a Secondary Insurance [id number] ANSI-Medicaid [id number] ANSI-Not a Secondary Insurance [id number] ANSI-Medicare Part B [id number] ANSI-Not a Secondary Insurance [id number] ANSI-Medicare Part B [id number] ANSI-Medicaid [id number] ANSI-Medicare Part B [id number] ANSI-Not a Secondary Insurance [id number] ANSI-Medicaid [id number] ANSI-Not a Secondary Insurance [id number] ANSI-Medicare Part B [id number] ANSI-Medicaid [id number] ANSI-Not a Secondary Insurance [id number] ANSI-Medicare Part B [id number] ANSI-Medicaid [id number] ANSI-Not a Secondary Insurance [id number] ANSI-Medicare Part B [id number] ANSI-Medicaid [id number] ANSI-Not a Secondary Insurance [id number] ANSI-Medicare Part B [id number] ANSI-Medicaid [id number] Medicaid [facility] Part B [id number] ..[id number] .[id number] Self [id number] [place] Primary [id number] ..[id number] Self [id number] [facility] [id number] ..[id number] 504.0 Self [id number] [employer]/Medicare Commercial [id number] ..[id number] Self [id number] Medicaid [place] Medicaid [id number]. 0 Self [id number] ANSI-Medicare Part B [id number] ANSI-Not a Secondary Insurance [id number] ANSI-Medicaid [id number] MEDICARE [id number] SP [id number] ANSI-Medicaid [id number] ANSI-Medicare Part B [id number] ANSI-Medicare Part B [id number] ANSI-Medicare Part B [id number] ANSI-Medicare Part B [id number] ANSI-Medicaid [id number] ANSI-Medicare Part B [id number] ANSI-Medicaid [id number] ANSI-Medicare Part B [id number] ANSI-Medicaid [id number] ANSI-Medicare Part B [id number] ANSI-Medicare Part B [id number] ANSI-Medicare Part B [id number] ANSI-Medicaid [id number] ANSI-Medicare Part B [id number] ANSI-Medicare Part B [id number] ANSI-Medicaid [id number] ANSI-Medicare Part B [id number] ANSI-Medicaid [id number] ANSI-Medicare Part B [id number] ANSI-Medicare Part B [id number] [facility] O [id number] S [id number] ANSI-Medicare Part B [id number] ANSI-Medicare Part B [id number] ANSI-Medicaid [id number] ANSI-Medicaid [id number] ANSI-Medicare Part B [id number] ANSI-Medicare Part B [id number] [facility] [id number] SP [id number] MEDICARE [id number] SP [id number] A ANSI-Medicaid [id number] ANSI-Medicare Part B [id number] ANSI-Medicare Part B [id number] MEDICARE C [id number] S [id number] MEDICARE C [id number] S [id number] A ANSI-Medicaid [id number] ANSI-Medicare Part B [id number] ANSI-Medicare Part B [id number] ANSI-Medicare Part B [id number] ANSI-Medicare Part B [id number] [facility]-Medicaid [id number] ANSI-Medicaid [id number] [facility]-Medicare Part B [id number] [facility]-Medicare Part B [id number] [facility] [id number] SP [id number] MEDICARE COMPLETE [id number] SP [id number] MEDICARE [id number] SP [id number] A MEDICARE COMPLETE [id number] SP [id number] Medicaid [facility] Part B [id number] .[id number]. 30371.0 Self [id number] [facility] Part B [id number] Self [id number] Medicare - [place] Medicare Primary [id number] .[id number] Self 1 [id number] Medicaid [facility] Part B [id number] .[id number]. 30603.0 Self [id number] [employer] Commercial [id number] .[id number] [id number] Self [id number] [facility] Medicare Commercial [id number] Self [id number] Medicaid [place] Medigap Part B [id number] .[id number] Self [id number] [facility] Medicare Commercial [id number] Self [id number] MEDICARE COMPLETE [id number] SP [id number] Medicaid [place] Medigap Part B [id number]. 96616.0 Self [id number] [facility] Medigap Part B [id number] Self [id number] Medicare - [place] Medicare Primary [id number] Self 1 [id number] Medicaid [place] Medigap Part B [id number]. 80954.0 Self [id number] MEDICARE COMPLETE [id number] SP [id number] Medicaid [place] Medig[place] Part B [id number] 7504.0 Self [facility] Medicare Commercial [id number] Self [id number] MEDICARE COMPLETE-[facility] O [id number] S [id number] [employer] (Medicare) Medigap Part B [id number] Self Medicaid [place] Medigap Part B [id number] Self [employer] (MCR) Commercial [id number] Self [facility] [id number] SP [id number] MEDICARE COMPLETE [id number] SP [id number] MEDICAID [id number] S [id number] MEDICARE OUTPATIENT M [id number] S [id number] [place] [id number] SP [id number] [facility] [id number] SP [id number] [facility] [id number] SP [id number] [facility] [id number] SP [id number] MEDICARE [id number] SP [id number] [place] [id number] SP [id number] [facility](MCAID) O [id number] S [id number] MEDICAID M [id number] S [id number] [employer] MEDICARE COMPLETE -PHYS [id number] 18 [id number] [employer] MEDICARE COMPLETE - O/P [id number] 18 [id number] [employer] MEDICARE COMPLETE I/P [id number] 18 [id number] MEDICAID [id number] SP [id number] MEDICARE COMPLETE [id number] SP [id number] [facility] O [id number] S [id number] [place] MEDIC[facility] [id number] SP [id number] ANSI-Not a Secondary Insurance [id number] ANSI-Medicaid [id number] ANSI-Medicare Part B [id number] ANSI-Not a Secondary Insurance [id number] ANSI-Medicaid [id number] [facility]-Medicare Part B [id number] Problems, Conditions, and Diagnoses Code Display Name Description Problem Type Effective Dates Data Source(s) I10 Essential (primary) hypertension Essential (primary) h ypertension Diagnosis 05/28/2020 12:40:49 PM EDT [facility] C90.02 Multiple myeloma in relapse Multiple myeloma in relaps e Diagnosis 05/28/2020 12:40:49 PM EDT [facility] E78.2 Mixed hyperlipidemia Mixed hyperlipidemia Diagnosis 05/28/2020 12:40:49 PM EDT [facility] I25.10 Atherosclerotic heart diseas e of [place] coronary artery without angina pectoris Atherosclerotic heart disease of [place] Diagnosis 05/28/2020 12:40:49 PM EDT [facility] I35.0 Nonrheumatic aortic (valve) stenosis Nonrheumati c aortic (valve) stenosis Diagnosis 05/28/2020 12:40:49 PM EDT [facility] R531 Weakness Weakness Diagnosis 03/06/2020 10:10:00 AM [facility] Z11223 Other pancytopenia Other pancytopenia Diagnosis 10:10:00 AM [facility] Z5111 Encounter for antineoplastic chemotherap y Encounter for antineoplastic chemotherapy Diagnosis 03/04/2020 12:24:00 PM [facility] C9000 Multiple myeloma not having achieved rem ission Multiple myeloma not having achieved remission Diagnosis 03/04/2020 12:24:00 PM [facility] R7303 Prediabetes Prediabetes Diagnosis 03/04/2020 12:24:00 PM [facility] I10 Essential (primary) hypertension Essential (primary) h ypertension Diagnosis 03/04/2020 12:24:00 PM [facility] E876 Hypokalemia Hypokalemia Diagnosis 03/04/2020 12:24:00 PM [facility] E8342 Hypomagnesemia Hypomagnesemia Diagnosis 03/04/2020 12:24: 00 PM [facility] R197 Diarrhea, unspecified Diarrhea, unspecified Diagnosis 03/04/2020 12:24:00 PM [facility] Z1159 Encounter for screening for other viral diseases Encounter for screening for other viral diseases Diagnosis 03/04/2020 12:24:00 PM [facility] R112 Nausea with vomiting, unspecified Nausea with vo miting, unspecified Diagnosis 03/04/2020 12:24:00 PM [facility] E860 Dehydration Dehydration Diagnosis 03/04/2020 12:24:00 PM [facility] G62.9 [id number] Neuropathy Problem 06/11/2020 12:00:00 AM ED T eCW1 ([facility]) C90.02 Multiple myeloma in relapse Multiple myeloma in relaps e [id number] 05/28/2020 12:00:00 AM EDT [facility] J31.0 [id number] Chronic rhinitis Problem 05/15/2020 12:00:00 AM EST eCW1 ([facility]) F51.04 [id number] Psychophysiological insomnia Problem 04/24/2020 12:00:00 AM EST eCW1 ([facility]) Surgeries/Procedures Procedure Description Date Indications Data Source(s) Colonoscopy Flexible Proximal To Splenic Flexure W/Biopsy Si ngle/ 08/14/2020 12:00:00 AM EDT [facility] ([facility]) BLOOD COUNT COMPLETE AUTO&AUTO DIFRNTL WBC COUNT <td>C BC AND DIFFERENTIAL</td><td>Routine</td><td>05/12/2020</td><td></td><td> </td> 05/12/2020 12:00:00 AM EST [facility] HEPATIC FUNCTION PANEL <td>HEPATIC FUNCTION PANEL</td><td>Routine</td><td>05/12/2020</td><td></td><td> </td> 05/12/2020 12:00:00 AM EST [facility] BASIC METABOLIC PANEL CALCIUM TOTAL <td>BASIC METABOLI C PANEL</td><td>Routine</td><td>05/12/2020</td><td></td><td> </td> 05/12/2020 12:00:00 AM EST [facility] ECG ROUTINE ECG W/LEAST 12 LDS W/I&R <td>POCT AMB EKG</td><td>Routine</td><td>04/08/2020 3:07 PM EST</td><td> Atherosclerosis of [place] coronary artery of [place] heart without angina pectoris</td><td> </td> 04/08/2020 08:07:00 PM EST Atherosclerosis of [place] coronary arter y of [place] heart without angina pectoris [facility] Atherosclerosis of [place] coronary arter y of [place] heart without angina pectoris Computerized Tomography (CT Scan) of Head Computerized Tomography (CT Scan) of Head 03/10/2020 12:00:00 AM [facility] Plain Radiography of Chest Plain Radiography of Chest 2019 12:00:00 AM [facility] Introduction of Electrolytic and Water B alance Substance into Peripheral Vein, Percutaneous Approach Introduction of Electrolytic and Water B alance Substance into Peripheral Vein, Percutaneous Approach 03/06/2020 12:00:00 AM [facility] Monitoring of Cardiac Electrical Activity, External Ap proach Monitoring of Cardiac Electrical Activity, External Approach 03/06/2020 12:00:00 AM [facility] Results ID Date Data Source [id number] 01/04/2021 12:28:00 PM EDT [facility] Name Value Range Interpretation Code Description Data Miladys rce(s) Supporting Document(s) SARS-CoV-2 RNA Pnl Spec NELLY+probe NEG [facility] This lab [facility] and reported by [facility]. ID Date Data Source [id number] 08/14/2020 03:41:00 PM EDT [facility] ([facility], ) Name Value Range Interpretation Code Description Data Miladys rce(s) Supporting Document(s) Surgical pathology study Laboratory [facility], ) FINAL DIAGNOSIS A - Colon, random, biopsy: Colonic mucosa with nonspecific inflammation and reactive hyperplastic epithelial changes, and associated foreign body (polarizing crystalloid) material on the surface. No evidence for microscopic colitis. Clinical correlation is recommended. B - Colon, sigmoid, biopsy: Colonic mucosa with chronic and active colitis, with transmural extension and abscess formation. Separate fragment of necroinflammatory debris present. Clinical correlation is recommended. 08/18/2020 - 140 CLINICAL DIAGNOSIS Diarrhea 08/17/2020938 GROSS DIAGNOSIS A - Received in formalin labeled "random colon biopsy" consists of two fragments of currie tissue, 0.3 x 0.3 x 0.2 cm in aggregate. All in one. B - Received in formalin labeled "diverticulitis in sigmoid" consists of multiple fragments of currie brown tissue measuring 1.0 x 0.8 x 0.3 cm in aggregate. All in one. -SV 08/17/2020938 Signed OLI PATTON MD 08/18/2020 1404 ID Date Data Source [id number] 08/09/2020 10:35:00 AM EDT [facility] Name Value Range Interpretation Code Description Data [facility] rce(s) Supporting Document(s) SARS-CoV-2 (COVID-19) RNA [Presence] in Respiratory specimen by NELLY with probe detection Not Detected [facility] This lab was ordered by [facility] and reported by [employer] ID Date Data Source URIC ACID 06/11/2020 12:00:00 AM EDT eCW1 ([facility] Name Value Range Interpretation Code Description Data Miladys rce(s) Supporting Document(s) 7.1 2.6-6.0 eCW1 ([facility]) ID Date Data Source [id number] 06/11/2020 12:00:00 AM EDT eCW1 ([facility]) Name Value Range Interpretation Code Description Data Miladys rce(s) Supporting Document(s) Hemoglobin A1c/Hemoglobin.total in Blood 5.6 HEMOGLOBIN A1c eC1 ([facility]) ID Date Data Source FREE T4 & TSH PANEL 06/11/2020 12:00:00 AM EDT eCW1 ([facility]) Name Value Range Interpretation Code Description Data Miladys rce(s) Supporting Document(s) 1.03 0.76-1.46 FREE T4 eCW1 ([facility]) 0.963 0.358-3.740 THYROID STIMULATING HORM ONE eCW1 ([facility]) ID Date Data Source [id number] 05/30/2020 12:17:00 PM EDT [facility] FASTING: UNKNOWNReceived: 05/30/2020 at 12:17:00 QPT: [facility], [address], [address] [facility], [place], [address], Casey Joshua MD Name Value Range Interpretation Code Description Data Miladys rce(s) Supporting Document(s) Cholesterol [Mass/volume] in Serum or Plasma 176 mg/dL <20 0 Normal (applies to non-numeric results) [facility] Cholesterol in HDL [Mass/volume] in Serum or Plasma 29 mg/dL > OR = 50 Below low normal [facility] Triglyceride [Mass/volume] in Serum or Plasma 373 mg/dL <150 Above high normal [facility] If a non-fasting specimen was collected, considerrepeat triglyceride testing on a fasting specimenif clinically indicated.Sincere et al. J. of Clin. Lipidol. 2015;9:129-169. Cholesterol in LDL [Mass/volume] in Serum or Plasma by calculation 97 mg/dL (calc) Normal (applies to non-numeric results) [facility] Reference range: <100Desirable range <10 0 mg/dL for primary prevention;<70 mg/dL for patients with CHD or diabetic patientswith > or = 2 CHD risk factors.LDL-C is now calculated using the Gaycalculation, which is a validated novel method providingbetter accuracy than the Friedewald equation in theestimation of LDL-C.Cruz SS et al. ALLYN. 2013;310(19): 0932-0921(http://education.Mythos.Rosum/faq/WJJ916) Cholesterol.total/Cholesterol in HDL [Mass Ratio] in Serum o r Plasma 6.1 (calc) <5.0 Above high normal [facility] Cholesterol non HDL [Mass/volume] in Serum or Plasma 147 mg/dL ( calc) <130 Above high normal [facility] For patients with diabetes plus 1 major ASCVD riskfactor, treating to a non-HDL-C goal of <100 mg/dL(LDL-C of <70 mg/dL) is considered a therapeuticoption. Your request to have a duplicate copy faxed has been acknowledged. Queued to: [id number] ID Date Data Source [id number] 04/14/2020 02:37:00 AM EST [facility] Name Value Range Interpretation Code Description Data Miladys rce(s) Supporting Document(s) SARS coronavirus 2 RNA [Presence] in Res piratory specimen by NELLY with probe detection NEGATIVE [facility] This lab was ordered by [facility] a nd reported by [facility]. ID Date Data Source Basic Metabolic Profile (BMP) 04/09/2020 12:00:00 AM EST eCW 1 ([facility]) Name Value Range Interpretation Code Description Data Miladys rce(s) Supporting Document(s) 99 70-100 GLUCOSE, FASTING eCW1 (Psychiatric hospital) 17 7-18 BLOOD UREA NITROGEN eCW1 ([facility]) 143 136-145 SODIUM LEVEL eCW1 ([facility]) > 60.0 >45 GLOMERULAR FILTRATION RATE eCW 1 ([facility]) 3.5 3.5-5.1 POTASSIUM SERUM eCW1 ([facility]) 0.88 0.55-1.30 CREATININE FOR GFR eCW1 ([facility]) 31 21-32 CARBON DIOXIDE LEVEL eCW1 ([facility]) 8.5 8.8-10.2 CALCIUM LEVEL eCW1 ([facility]) 105 98-107 CHLORIDE LEVEL eCW1 ([facility]) ID Date Data Source C REACTIVE PROTEIN QUANTITATIV (At [facility]) 04/09/2020 12:00 :00 AM EST eCW1 ([facility]) Name Value Range Interpretation Code Description Data Miladys rce(s) Supporting Document(s) 0.30 0.00-0.30 C REACTIVE PROTEIN QUANTI TATIV eCW1 ([facility]) ID Date Data Source t-Transglutaminase (tTG) IgA 04/09/2020 12:00:00 AM EST eCW1 ([facility]) Name Value Range Interpretation Code Description Data Miladys rce(s) Supporting Document(s) Tissue transglutaminase IgA Ab [Units/volume] in Serum <2 0-3 TISSUE TRANSGLUTAMINASE IgA eCW1 ([facility]) ID Date Data Source [id number] 03/24/2020 06:18:00 PM EST [facility] Name Value Range Interpretation Code Description Data Miladys rce(s) Supporting Document(s) SARS coronavirus 2 RNA [Presence] in Res piratory specimen by NELLY with probe detection NEGATIVE [facility] This lab was ordered by [facility] a nd reported by [facility]. ID Date Data Source [id number] 03/12/2020 07:14:00 AM [facility] Name Value Range Interpretation Code Description Data Miladys rce(s) Supporting Document(s) CBC W/AUTOMATED DIFF [facility] COMPLETE BLOOD COUNT Leukocytes [#/volume] in Blood by Automated count 2.4 10^3/uL 4.2 - 1 1.0 L [facility] Erythrocytes [#/volume] in Blood by Automated count 2.66 10^6/uL 4. 20 - 5.40 L [facility] Hemoglobin [Mass/volume] in Blood 8.9 g/dL 12.0 - 16.0 L [facility] Hematocrit [Volume Fraction] of Blood by Automated count 26.3 % 3 7.0 - 47.0 L [facility] Erythrocyte mean corpuscular volume [Entitic volume] by Auto mated count 98.9 fL 81.0 - 101 [facility] Erythrocyte mean corpuscular hemoglobin [Entitic mass] by Automated count 33.5 pg 27.0 - 34.0 [facility] Erythrocyte mean corpuscular hemoglobin concentration [Mass/volume] by Automated count 33.8 g/dL 31.0 - 36.0 [facility] Erythrocyte distribution width [Ratio] by Automated count 17.3 % 11.5 - 14.5 H [facility] Platelets [#/volume] in Blood by Automated count 121 10^3/uL 150 - 45 0 L [facility] Platelet mean volume [Entitic volume] in Blood by Automated count 10.1 fL 7.4 - 10.4 [facility] Neutrophils/100 leukocytes in Blood by Automated count 72.5 % 37. 0 - 80.0 [facility] Lymphocytes/100 leukocytes in Blood by Manual count 21.6 % 25.0 - 40.0 L [facility] Monocytes/100 leukocytes in Blood by Automated count 4.2 % 3.0 - 8.0 [facility] Eosinophils/100 leukocytes in Blood by Automated count 0.0 % 0.0 - 7.0 [facility] 0.4 %IG 1.3 % 0.0 - 0.0 H [facility] %NRBC 0.0 % 0.0 - 0.0 [facility] al Neutrophils [#/volume] in Blood by Automated count 1.71 10^3/uL 2.00 - 6.90 L [facility] Lymphocytes [#/volume] in Blood by Automated count 0.51 10^3/uL 0.60 - 3.40 L [facility] Monocytes [#/volume] in Blood by Automated count 0.10 10^3/uL 0.00 - 0.90 [facility] Eosinophils [#/volume] in Blood by Automated count 0.00 10^3/uL 0.00 - 0.70 [facility] Basophils [#/volume] in Blood by Automated count 0.01 10^3/uL 0.00 - 0.20 [facility] #IG 0.03 10^3/uL 0.00 - 0.10 [facility] #NRBC 0.00 10^3/uL 0.00 - 0.00 [facility] ospital MANUAL DIFF SEE BELOW [facility] ital Segmented neutrophils/100 leukocytes in Blood by Manual count 78 % 37 - 80 [facility] BAND 1 % 0 - 5 [facility] %LYMPH 18 % 25 - 40 L [facility] %MONO 2 % 3 - 8 L [facility] al 1 RBC MORPH SEE BELOW [facility] al Anisocytosis [Presence] in Blood by Light microscopy 1+ NATASHA L: NONE SEEN A [facility] Macrocytes [Presence] in Blood by Light microscopy 1+ NORMAL: NONE SEEN A [facility] Poikilocytosis [Presence] in Blood by Light microscopy 1+ NOR MAL: NONE SEEN A [facility] Polychromasia [Presence] in Blood by Light microscopy 1+ NORM AL: NONE SEEN A [facility] { SICKLE CELL (NORMAL: NONE SEEN ) Ovalocytes [Presence] in Blood by Light microscopy 1+ NORMAL: NONE SEEN A [facility] Platelet adequacy [Presence] in Blood by Light microscopy DE CREASED NORMAL: NORMAL A [facility] COMMENT: ID Date Data Source [id number] 03/12/2020 06:43:00 AM EST [facility] Name Value Range Interpretation Code Description Data Miladys rce(s) Supporting Document(s) Magnesium [Mass/volume] in Serum or Plasma 1.5 MG/DL 1.7 - 2.2 L [facility] ID Date Data Source [id number] 03/12/2020 06:43:00 AM EST [facility] Name Value Range Interpretation Code Description Data Miladys rce(s) Supporting Document(s) COMPREHENSIVE METABOLIC PANEL [facility] COMPREHENSIVE METABOLIC PANEL Sodium [Moles/volume] in Serum or Plasma 139 mEq/L 134 - 153 [facility] Potassium [Moles/volume] in Serum or Plasma 4.8 mEq/L 3.6 - 5.0 [facility] Chloride [Moles/volume] in Serum or Plasma 104 mEq/L 98 - 107 [facility] Carbon dioxide, total [Moles/volume] in Serum or Plasma 27 MEQ/L 22 - 30 [facility] Glucose [Mass/volume] in Serum or Plasma 142 MG/DL 65 - 110 H [facility] BUN 8 MG/DL 7 - 21 [facility] al Creatinine [Mass/volume] in Serum or Plasma 0.5 MG/DL 0.7 - 1.5 L [facility] BUN/CREAT 16 8 - 27 [facility] al Protein [Mass/volume] in Serum or Plasma 5.4 G/DL 6.3 - 8.2 L [facility] Albumin [Mass/volume] in Serum or Plasma 3.5 G/DL 3.9 - 5.0 L [facility] Globulin [Mass/volume] in Serum by calculation 1.9 GM/DL 2.4 - 3.2 L [facility] A/G RATIO 1.8 0.8 - 2.0 [facility] Calcium [Mass/volume] in Serum or Plasma 8.5 MG/DL 8.4 - 10.2 [facility] Bilirubin.total [Mass/volume] in Serum or Plasma 1.0 MG/DL 0.2 - 1.3 [facility] Alkaline phosphatase [Enzymatic activity/volume] in Serum or Plasma 88 U/L 38 - 126 [facility] Aspartate aminotransferase [Enzymatic activity/volume] in Se rum or Plasma 9 U/L 5 - 40 [facility] Alanine aminotransferase [Enzymatic activity/volume] in Seru m or Plasma 7 U/L 7 - 56 [facility] Anion gap 3 in Serum or Plasma 8.0 mmol/L 8.0 - 16.0 [facility] AGE 64 yrs [facility] al NON-AA GFR >60 mL/min [facility] ital AFR AMER GFR >60 [facility] Male GFR In terprentation [...] >32 mL/min Normal ID Date Data Source [id number] 03/11/2020 10:52:00 AM EST [facility] [address] [place] [address] PHONE: [phone] FAX: [phone] Name .................. : GAMA Nobles Acct Number.................. : [id number] ROOM. ................. : 103-1 MR Number ................... : [id number] Stay type ............. : I/P Discharge Date......... ... : Admit Date ......... : 1 05/05/19 Admit Phys .................... : RACHEL Date of ....... : 1955 Family Phys ................... : NON STAFF Phone .................. : [phone] Age ................................ : 64 Film# .................. .:[id number] Sex ................................. : F Unsigned transcriptions are preliminary reports and do not represent a medical or legal document CT HEAD W/O CONTRAST [id number] COMPLETE:03/10/20 17:58 1109 (REASON FOR PROCEDURE :H [...] 03/10/20 22:23, Dictation Date: Copy for: 002 [facility] Copy for: 710 [facility] Page 1 of 1 Name Value Range Interpretation Code Description Data Miladys rce(s) Supporting Document(s) ID Date Data Source [id number] 03/13/2020 08:14:00 PM [facility] Name Value Range Interpretation Code Description Data Miladys rce(s) Supporting Document(s) Cytomegalovirus DNA [log units/volume] ( viral load) in Plasma by Probe and target amplification method COMMENT [id number]/mL [facility] Unable to calculate result since non-num rickey result obtained forcomponent test. Cytomegalovirus DNA [Units/volume] (sohail l load) in Plasma by Probe and target amplification method Negative IU/mL Negative [facility] No CMV DNA detected.The quantitative ran ge of this assay is 200 to 1 million IU/mL.This test was developed and its performance characteristics determinedby [facility]. It has not been cleared or approved by the Food and DrugAdministration. The FDA has determined that such clearance orapproval is not necessary. ID Date Data Source [id number] 03/11/2020 06:59:00 AM [facility] Name Value Range Interpretation Code Description Data Miladys rce(s) Supporting Document(s) CBC W/AUTOMATED DIFF [facility] COMPLETE BLOOD COUNT Leukocytes [#/volume] in Blood by Automated count 2.4 10^3/uL 4.2 - 1 1.0 L [facility] Erythrocytes [#/volume] in Blood by Automated count 2.51 10^6/uL 4. 20 - 5.40 L [facility] Hemoglobin [Mass/volume] in Blood 8.4 g/dL 12.0 - 16.0 L [facility] Hematocrit [Volume Fraction] of Blood by Automated count 25.3 % 3 7.0 - 47.0 L [facility] Erythrocyte mean corpuscular volume [Entitic volume] b y Automated count 100.8 fL 81.0 - 101 [facility] Erythrocyte mean corpuscular hemoglobin [Entitic mass] by Automated count 33.5 pg 27.0 - 34.0 [facility] Erythrocyte mean corpuscular hemoglobin concentration [Mass/volume] by Automated count 33.2 g/dL 31.0 - 36.0 [facility] Erythrocyte distribution width [Ratio] by Automated count 17.9 % 11.5 - 14.5 H [facility] Platelets [#/volume] in Blood by Automated count 101 10^3/uL 150 - 45 0 L [facility] Platelet mean volume [Entitic volume] in Blood by Automated count 10.8 fL 7.4 - 10.4 H [facility] Neutrophils/100 leukocytes in Blood by Automated count 58.0 % 37. 0 - 80.0 [facility] Lymphocytes/100 leukocytes in Blood by Manual count 26.8 % 25.0 - 40.0 [facility] Monocytes/100 leukocytes in Blood by Automated count 10.6 % 3.0 - 8.0 H [facility] Eosinophils/100 leukocytes in Blood by Automated count 3.8 % 0.0 - 7.0 [facility] Basophils/100 leukocytes in Blood by Automated count 0.4 % 0.0 - 2.5 [facility] %IG 0.4 % 0.0 - 0.0 [facility]NR[facility] 0.0 % 0.0 - 0.0 [facility] al Neutrophils [#/volume] in Blood by Automated count 1.36 10^3/uL 2.00 - 6.90 L [facility] Lymphocytes [#/volume] in Blood by Automated count 0.63 10^3/uL 0.60 - 3.40 [facility] Monocytes [#/volume] in Blood by Automated count 0.25 10^3/uL 0.00 - 0.90 [facility] Eosinophils [#/volume] in Blood by Automated count 0.09 10^3/uL 0.00 - 0.70 [facility] Basophils [#/volume] in Blood by Automated count 0.01 10^3/uL 0.00 - 0.20 [facility] #IG 0.01 10^3/uL 0.00 - 0.10 [facility] #NRBC 0.00 10^3/uL 0.00 - 0.00 [facility] MANUAL DIFF SEE BELOW [facility] ital Segmented neutrophils/100 leukocytes in Blood by Manual count 65 % 37 - 80 [facility] %LYMPH 20 % 25 - 40 L [facility] al %MONO 9 % 3 - 8 H [facility] %EOS 6 % 0 - 7 [facility] RBC MORPH NOT INDICATED [facility] ID Date Data Source [id number] 03/11/2020 06:48:00 AM [facility] Name Value Range Interpretation Code Description Data Miladys rce(s) Supporting Document(s) Magnesium [Mass/volume] in Serum or Plasma 1.5 MG/DL 1.7 - 2.2 L [facility] ID Date Data Source [id number] 03/11/2020 06:48:00 AM [facility] Name Value Range Interpretation Code Description Data Miladys rce(s) Supporting Document(s) COMPREHENSIVE METABOLIC PANEL [facility] COMPREHENSIVE METABOLIC PANEL Sodium [Moles/volume] in Serum or Plasma 139 mEq/L 134 - 153 [facility] Potassium [Moles/volume] in Serum or Plasma 4.1 mEq/L 3.6 - 5.0 [facility] Chloride [Moles/volume] in Serum or Plasma 104 mEq/L 98 - 107 [facility] Carbon dioxide, total [Moles/volume] in Serum or Plasma 29 MEQ/L 22 - 30 [facility] Glucose [Mass/volume] in Serum or Plasma 85 MG/DL 65 - 110 [facility] BUN 5 MG/DL 7 - 21 L [facility] al Creatinine [Mass/volume] in Serum or Plasma 0.6 MG/DL 0.7 - 1.5 L [facility] BUN/CREAT 8 8 - 27 [facility] al Protein [Mass/volume] in Serum or Plasma 5.1 G/DL 6.3 - 8.2 L [facility] Albumin [Mass/volume] in Serum or Plasma 3.1 G/DL 3.9 - 5.0 L [facility] Globulin [Mass/volume] in Serum by calculation 2.0 GM/DL 2.4 - 3.2 L [facility] A/G RATIO 1.6 0.8 - 2.0 [facility] Calcium [Mass/volume] in Serum or Plasma 8.7 MG/DL 8.4 - 10.2 [facility] Bilirubin.total [Mass/volume] in Serum or Plasma 0.9 MG/DL 0.2 - 1.3 [facility] Alkaline phosphatase [Enzymatic activity/volume] in Serum or Plasma 83 U/L 38 - 126 [facility] Aspartate aminotransferase [Enzymatic activity/volume] in Se rum or Plasma 8 U/L 5 - 40 [facility] Alanine aminotransferase [Enzymatic activity/volume] in Seru m or Plasma 8 U/L 7 - 56 [facility] Anion gap 3 in Serum or Plasma 6.0 mmol/L 8.0 - 16.0 L [facility] AGE 64 yrs [facility] al NON-AA GFR >60 mL/min [facility] ital AFR AMER GFR >60 [facility] Male GFR In terprentation [...] >32 mL/min Normal ID Date Data Source [id number] 03/10/2020 07:25:00 AM EST [facility] Name Value Range Interpretation Code Description Data Miladys rce(s) Supporting Document(s) COMPREHENSIVE METABOLIC PANEL [facility] COMPREHENSIVE METABOLIC PANEL Sodium [Moles/volume] in Serum or Plasma 141 mEq/L 134 - 153 [facility] Potassium [Moles/volume] in Serum or Plasma 4.3 mEq/L 3.6 - 5.0 [facility] Chloride [Moles/volume] in Serum or Plasma 105 mEq/L 98 - 107 [facility] Carbon dioxide, total [Moles/volume] in Serum or Plasma 29 MEQ/L 22 - 30 [facility] Glucose [Mass/volume] in Serum or Plasma 103 MG/DL 65 - 110 [facility] BUN 6 MG/DL 7 - 21 L [facility] al Creatinine [Mass/volume] in Serum or Plasma 0.5 MG/DL 0.7 - 1.5 L [facility] BUN/CREAT 12 8 - 27 [facility] Protein [Mass/volume] in Serum or Plasma 5.4 G/DL 6.3 - 8.2 L [facility] Albumin [Mass/volume] in Serum or Plasma 3.4 G/DL 3.9 - 5.0 L [facility] Globulin [Mass/volume] in Serum by calculation 2.0 GM/DL 2.4 - 3.2 L [facility] A/G RATIO 1.7 0.8 - 2.0 [facility] Calcium [Mass/volume] in Serum or Plasma 8.8 MG/DL 8.4 - 10.2 [facility] Bilirubin.total [Mass/volume] in Serum or Plasma 0.7 MG/DL 0.2 - 1.3 [facility] Alkaline phosphatase [Enzymatic activity/volume] in Serum or Plasma 79 U/L 38 - 126 [facility] Aspartate aminotransferase [Enzymatic activity/volume] in Se rum or Plasma 9 U/L 5 - 40 [facility] Alanine aminotransferase [Enzymatic activity/volume] in Seru m or Plasma 8 U/L 7 - 56 [facility] Anion gap 3 in Serum or Plasma 7.0 mmol/L 8.0 - 16.0 L [facility] AGE 64 yrs [facility] NON-AA GFR >60 mL/min [facility] AFR AMER GFR >60 [facility] Male GFR In terprentation [...] >32 mL/min Normal ID Date Data Source [id number] 03/10/2020 07:25:00 AM [facility] Name Value Range Interpretation Code Description Data Miladys rce(s) Supporting Document(s) Magnesium [Mass/volume] in Serum or Plasma 1.4 MG/DL 1.7 - 2.2 L [facility] ID Date Data Source [id number] 03/10/2020 07:20:00 AM [facility] Name Value Range Interpretation Code Description Data Miladys rce(s) Supporting Document(s) CBC W/AUTOMATED DIFF [facility] COMPLETE BLOOD COUNT Leukocytes [#/volume] in Blood by Automated count 2.7 10^3/uL 4.2 - 1 1.0 L [facility] Erythrocytes [#/volume] in Blood by Automated count 2.62 10^6/uL 4. 20 - 5.40 L [facility] Hemoglobin [Mass/volume] in Blood 8.9 g/dL 12.0 - 16.0 L [facility] Hematocrit [Volume Fraction] of Blood by Automated count 26.4 % 3 7.0 - 47.0 L [facility] Erythrocyte mean corpuscular volume [Entitic volume] b y Automated count 100.8 fL 81.0 - 101 [facility] Erythrocyte mean corpuscular hemoglobin [Entitic mass] by Automated count 34.0 pg 27.0 - 34.0 [facility] Erythrocyte mean corpuscular hemoglobin concentration [Mass/volume] by Automated count 33.7 g/dL 31.0 - 36.0 [facility] Erythrocyte distribution width [Ratio] by Automated count 18.2 % 11.5 - 14.5 H [facility] Platelets [#/volume] in Blood by Automated count 103 10^3/uL 150 - 45 0 L [facility] Platelet mean volume [Entitic volume] in Blood by Automated count 10.2 fL 7.4 - 10.4 [facility] Neutrophils/100 leukocytes in Blood by Automated count 58.0 % 37. 0 - 80.0 [facility] Lymphocytes/100 leukocytes in Blood by Manual count 28.0 % 25.0 - 40.0 [facility] Monocytes/100 leukocytes in Blood by Automated count 10.0 % 3.0 - 8.0 H [facility] Eosinophils/100 leukocytes in Blood by Automated count 2.6 % 0.0 - 7.0 [facility] Basophils/100 leukocytes in Blood by Automated count 0.7 % 0.0 - 2.5 [facility] [facility] %IG 0.7 % 0.0 - 0.0 [facility] %NRBC 0.0 % 0.0 - 0.0 [facility] Neutrophils [#/volume] in Blood by Automated count 1.57 10^3/uL 2.00 - 6.90 L [facility] Lymphocytes [#/volume] in Blood by Automated count 0.76 10^3/uL 0.60 - 3.40 [facility] Monocytes [#/volume] in Blood by Automated count 0.27 10^3/uL 0.00 - 0.90 [facility] Eosinophils [#/volume] in Blood by Automated count 0.07 10^3/uL 0.00 - 0.70 [facility] Basophils [#/volume] in Blood by Automated count 0.02 10^3/uL 0.00 - 0.20 [facility] #IG 0.02 10^3/uL 0.00 - 0.10 [facility] #NRBC 0.00 10^3/uL 0.00 - 0.00 [facility] MANUAL DIFF SEE BELOW [facility] Segmented neutrophils/100 leukocytes in Blood by Manual count 64 % 37 - 80 [facility] BAND 1 % 0 - 5 [facility] %LYMPH 21 % 25 - 40 L [facility] %MONO 8 % 3 - 8 [facility] %EOS 5 % 0 - 7 [facility] Metamyelocytes/100 leukocytes in Blood by Manual count 1 % [facility] RBC MORPH SEE BELOW [facility] al Anisocytosis [Presence] in Blood by Light microscopy 1+ NATASHA L: NONE SEEN A [facility] Macrocytes [Presence] in Blood by Light microscopy 1+ NORMAL: NONE SEEN A [facility] Poikilocytosis [Presence] in Blood by Light microscopy 1+ NOR MAL: NONE SEEN A [facility] Polychromasia [Presence] in Blood by Light microscopy 1+ NORM AL: NONE SEEN A [facility] { SICKLE CELL (NORMAL: NONE SEEN ) Platelet adequacy [Presence] in Blood by Light microscopy DE CREASED NORMAL: NORMAL A [facility] COMMENT: ID Date Data Source [id number] 03/09/2020 09:47:00 AM EST [facility] [address] [place] [address] PHONE: [phone] FAX: [phone] Name .................. : GAMA Verduzco Number.................. : [id number] ROOM. ................. : 103-1 MR Number ................... : [id number] Stay type ............. : O/P Discharge Date......... ... : Admit Date ......... : 03/04/20 Admit Phys .................... : DANIKA-FALAN Date of ....... : 1955 Family Phys ................... : NON STAFF Phone .................. : [phone] Age ................................ : 64 Film# .................. .:[id number] Sex ................................. : F Unsigned transcriptions are preliminary reports and do not represent a medical or legal document DOPPLER VENOUS BILAT LEG 69229 COMPLETE:03/05/20 12:55 KNB 862 (REASON FOR PROCESS: [...] 03/05/20 13:17, Dictation Date: Copy for: 002 [facility] Copy for: [address] [place] [address] REC Page 1 of 1 Name Value Range Interpretation Code Description Data Miladys rce(s) Supporting Document(s) ID Date Data Source [id number] 03/09/2020 09:20:00 AM EST [facility] [address] [place] [address] PHONE: [phone] FAX: [phone] Name .................. : GAMA Nobles Acct Number.................. : [id number] ROOM. ................. : 103-1 MR Number ................... : [id number] Stay type ............. : I/P Discharge Date......... ... : Admit Date ......... : 03/04/20 Admit Phys .................... : DANIKA-LAWRENCE Date of ....... : 1955 Family Phys ................... : NON STAFF Phone .................. : [phone] Age ................................ : 64 Film# .................. .:[id number] Sex ................................. : F Unsigned transcriptions are preliminary reports and do not represent a medical or legal document CHEST 2 VIEWS [id number] COMPLETE:03/09/20 06:02 BEM 988 (REASON FOR CHEST: [...] 03/09/20 07:55, Dictation Date: Copy for: 002 [facility] Copy for: [address] [facility] Page 1 of 1 Name Value Range Interpretation Code Description Data Miladys rce(s) Supporting Document(s) ID Date Data Source [id number] 03/09/2020 07:42:00 AM EST [facility] Name Value Range Interpretation Code Description Data Miladys rce(s) Supporting Document(s) CBC W/AUTOMATED DIFF [facility] COMPLETE BLOOD COUNT Leukocytes [#/volume] in Blood by Automated count 2.3 10^3/uL 4.2 - 1 1.0 L [facility] Erythrocytes [#/volume] in Blood by Automated count 2.75 10^6/uL 4. 20 - 5.40 L [facility] Hemoglobin [Mass/volume] in Blood 9.1 g/dL 12.0 - 16.0 L [facility] Hematocrit [Volume Fraction] of Blood by Automated count 27.1 % 3 7.0 - 47.0 L [facility] Erythrocyte mean corpuscular volume [Entitic volume] by Auto mated count 98.5 fL 81.0 - 101 [facility] Erythrocyte mean corpuscular hemoglobin [Entitic mass] by Automated count 33.1 pg 27.0 - 34.0 [facility] Erythrocyte mean corpuscular hemoglobin concentration [Mass/volume] by Automated count 33.6 g/dL 31.0 - 36.0 [facility] Erythrocyte distribution width [Ratio] by Automated count 17.8 % 11.5 - 14.5 H [facility] Platelets [#/volume] in Blood by Automated count 101 10^3/uL 150 - 45 0 L [facility] Platelet mean volume [Entitic volume] in Blood by Automated count 10.8 fL 7.4 - 10.4 H [facility] Neutrophils/100 leukocytes in Blood by Automated count 58.2 % 37. 0 - 80.0 [facility] Lymphocytes/100 leukocytes in Blood by Manual count 27.0 % 25.0 - 40.0 [facility] Monocytes/100 leukocytes in Blood by Automated count 12.2 % 3.0 - 8.0 H [facility] Eosinophils/100 leukocytes in Blood by Automated count 1.3 % 0.0 - 7.0 [facility] Basophils/100 leukocytes in Blood by Automated count 0.9 % 0.0 - 2.5 [facility] %IG 0.4 % 0.0 - 0.0 [facility] %NRBC 0.0 % 0.0 - 0.0 [facility] Neutrophils [#/volume] in Blood by Automated count 1.34 10^3/uL 2.00 - 6.90 L [facility] Lymphocytes [#/volume] in Blood by Automated count 0.62 10^3/uL 0.60 - 3.40 [facility] Monocytes [#/volume] in Blood by Automated count 0.28 10^3/uL 0.00 - 0.90 [facility] Eosinophils [#/volume] in Blood by Automated count 0.03 10^3/uL 0.00 - 0.70 [facility] Basophils [#/volume] in Blood by Automated count 0.02 10^3/uL 0.00 - 0.20 [facility] #IG 0.01 10^3/uL 0.00 - 0.10 [facility] #NRBC 0.00 10^3/uL 0.00 - 0.00 [facility] MANUAL DIFF SEE BELOW [facility] Segmented neutrophils/100 leukocytes in Blood by Manual count 62 % 37 - 80 [facility] %LYMPH 29 % 25 - 40 [facility] %MONO 8 % 3 - 8 [facility] %EOS 1 % 0 - 7 [facility] RBC MORPH NOT INDICATED [facility] spital ID Date Data Source [id number] 03/09/2020 07:26:00 AM EST [facility] Name Value Range Interpretation Code Description Data Miladys rce(s) Supporting Document(s) COMPREHENSIVE METABOLIC PANEL [facility] COMPREHENSIVE METABOLIC PANEL Sodium [Moles/volume] in Serum or Plasma 142 mEq/L 134 - 153 [facility] Potassium [Moles/volume] in Serum or Plasma 3.2 mEq/L 3.6 - 5.0 L [facility] Chloride [Moles/volume] in Serum or Plasma 101 mEq/L 98 - 107 [facility] Carbon dioxide, total [Moles/volume] in Serum or Plasma 34 MEQ/L 22 - 30 H [facility] Glucose [Mass/volume] in Serum or Plasma 99 MG/DL 65 - 110 [facility] BUN 8 MG/DL 7 - 21 [facility] al Creatinine [Mass/volume] in Serum or Plasma 0.7 MG/DL 0.7 - 1.5 [facility] BUN/CREAT 11 8 - 27 [facility] Protein [Mass/volume] in Serum or Plasma 5.4 G/DL 6.3 - 8.2 L [facility] Albumin [Mass/volume] in Serum or Plasma 3.6 G/DL 3.9 - 5.0 L [facility] Globulin [Mass/volume] in Serum by calculation 1.8 GM/DL 2.4 - 3.2 L [facility] A/G RATIO 2.0 0.8 - 2.0 [facility] Calcium [Mass/volume] in Serum or Plasma 8.5 MG/DL 8.4 - 10.2 [facility] Bilirubin.total [Mass/volume] in Serum or Plasma 1.0 MG/DL 0.2 - 1.3 [facility] Alkaline phosphatase [Enzymatic activity/volume] in Serum or Plasma 79 U/L 38 - 126 [facility] Aspartate aminotransferase [Enzymatic activity/volume] in Se rum or Plasma 9 U/L 5 - 40 [facility] Alanine aminotransferase [Enzymatic activity/volume] in Seru m or Plasma 8 U/L 7 - 56 [facility] Anion gap 3 in Serum or Plasma 7.0 mmol/L 8.0 - 16.0 L [facility] AGE 64 yrs [facility] NON-AA GFR >60 mL/min [facility] AFR AMER GFR >60 [facility] Male GFR In terprentation [...] >32 mL/min Normal ID Date Data Source [id number] 03/09/2020 07:26:00 AM [facility] Name Value Range Interpretation Code Description Data Miladys rce(s) Supporting Document(s) Magnesium [Mass/volume] in Serum or Plasma 1.2 MG/DL 1.7 - 2.2 L [facility] ID Date Data Source [id number] 03/16/2020 12:12:00 PM [facility] Name Value Range Interpretation Code Description Data Miladys rce(s) Supporting Document(s) CULTURE BLOOD [facility] spital _CULTURE BLOOD_ [place] [address] CLIA# [id number] SEE SCANNED REPORT{ PRELIM ID Date Data Source [id number] 03/10/2020 01:00:00 PM [facility] [id number]/10/20 12:56 CALLED TO WAYNE Nobles BY OPAL, RESULTS READBACKThe Tealet BCID Panel is a qualitative multiplexednucleic acid-based [...] rce(s) Supporting Document(s) ID Date Data Source [id number] 03/16/2020 12:12:00 PM EST [facility] Name Value Range Interpretation Code Description Data Miladys rce(s) Supporting Document(s) CULTURE BLOOD [facility] kishantal _CULTURE BLOOD_ TEST PERFORM ED AT [place] [id number] CLIA# [id number] SEE SCANNED REPORT{ PRELIM GROWTH OF GRAM POS COCCI IN CLUSTERSCALLED TO PAT ON AIU 03/10/20 1305 CM ID Date Data Source [id number] 03/08/2020 08:45:00 PM EST [facility] Name Value Range Interpretation Code Description Data Miladys rce(s) Supporting Document(s) COVID-19 NOT DETECTED [facility] This lab was ordered by [facility] KISHANT and reported by [facility]. ID Date Data Source [id number] 03/08/2020 08:45:00 PM EST [facility] Name Value Range Interpretation Code Description Data Miladys rce(s) Supporting Document(s) COVID-19 [facility]ENTER NOT DETECTED [facility] This lab was ordered by [facility] and reported by [facility]. ID Date Data Source [id number] 03/08/2020 09:35:00 PM [facility] Name Value Range Interpretation Code Description Data Miladys rce(s) Supporting Document(s) COVID-19 NOT DETECTED [facility] COVID-19 REENTER NOT DETECTED [facility] { PROCEDURAL CONTROL VALID KIT LOT # _[id number] 03/08/20.DW . KIT EXP DATE _[id number] 03/08/20.DW . NORMAL RANGE IS NOT DETECTEDNEGATIVE RESULTS SHOULD BE TREATED PREUMPTIVE AND, IF INCONSISTENT WITHCLINICAL SIGNS AND SYMPTOMS OR NECESSARY FOR PATIENT MANAGEMENT, SHOULD BETESTED WITH DIFFERENT AUTHORIZED OR CLEARED MOLECULAR TESTS. NEGATIVE RESULTSDO NOT PRECLUDE SARS-CoV-2 INFECTION AND SHOULD NOT BE USED THE SOLE BASISFOR PATIENT MANAGEMENT DECISIONS. ID Date Data Source [id number] 03/08/2020 11:55:00 AM [facility] Name Value Range Interpretation Code Description Data Miladys rce(s) Supporting Document(s) Magnesium [Mass/volume] in Serum or Plasma 1.6 MG/DL 1.7 - 2.2 L [facility] ID Date Data Source [id number] 03/08/2020 09:41:00 AM [facility] Value Range Interpretation Code Description Data Miladys rce(s) Supporting Document(s) CBC W/AUTOMATED DIFF [facility] COMPLETE BLOOD COUNT Leukocytes [#/volume] in Blood by Automated count 2.3 10^3/uL 4.2 - 1 1.0 L [facility] Erythrocytes [#/volume] in Blood by Automated count 2.51 10^6/uL 4. 20 - 5.40 L [facility] Hemoglobin [Mass/volume] in Blood 8.5 g/dL 12.0 - 16.0 L [facility] Hematocrit [Volume Fraction] of Blood by Automated count 24.6 % 3 7.0 - 47.0 L [facility] Erythrocyte mean corpuscular volume [Entitic volume] by Auto mated count 98.0 fL 81.0 - 101 [facility] Erythrocyte mean corpuscular hemoglobin [Entitic mass] by Automated count 33.9 pg 27.0 - 34.0 [facility] Erythrocyte mean corpuscular hemoglobin concentration [Mass/volume] by Automated count 34.6 g/dL 31.0 - 36.0 [facility] Erythrocyte distribution width [Ratio] by Automated count 17.5 % 11.5 - 14.5 H [facility] Platelets [#/volume] in Blood by Automated count 94 10^3/uL 150 - 450 L [facility] Platelet mean volume [Entitic volume] in Blood by Automated count 11.1 fL 7.4 - 10.4 H [facility] Neutrophils/100 leukocytes in Blood by Automated count 61.3 % 37. 0 - 80.0 [facility] Lymphocytes/100 leukocytes in Blood by Manual count 23.2 % 25.0 - 40.0 L [facility] Monocytes/100 leukocytes in Blood by Automated count 12.9 % 3.0 - 8.0 H [facility] Eosinophils/100 leukocytes in Blood by Automated count 1.3 % 0.0 - 7.0 [facility] Basophils/100 leukocytes in Blood by Automated count 0.9 % 0.0 - 2.5 [facility] %IG 0.4 % 0.0 - 0.0 [facility] %NRBC 0.0 % 0.0 - 0.0 [facility] al Neutrophils [#/volume] in Blood by Automated count 1.43 10^3/uL 2.00 - 6.90 L [facility] Lymphocytes [#/volume] in Blood by Automated count 0.54 10^3/uL 0.60 - 3.40 L [facility] Monocytes [#/volume] in Blood by Automated count 0.30 10^3/uL 0.00 - 0.90 [facility] Eosinophils [#/volume] in Blood by Automated count 0.03 10^3/uL 0.00 - 0.70 [facility] Basophils [#/volume] in Blood by Automated count 0.02 10^3/uL 0.00 - 0.20 [facility] #IG 0.01 10^3/uL 0.00 - 0.10 [facility] ospital #NRBC 0.00 10^3/uL 0.00 - 0.00 [facility] MANUAL DIFF NOT INDICATED [facility] RBC MORPH NOT INDICATED [facility] ID Date Data Source [id number] 03/08/2020 09:00:00 AM EST [facility] Name Value Range Interpretation Code Description Data Miladys rce(s) Supporting Document(s) COMPREHENSIVE METABOLIC PANEL [facility] COMPREHENSIVE METABOLIC PANEL Sodium [Moles/volume] in Serum or Plasma 141 mEq/L 134 - 153 [facility] Potassium [Moles/volume] in Serum or Plasma 3.1 mEq/L 3.6 - 5.0 L [facility] Chloride [Moles/volume] in Serum or Plasma 106 mEq/L 98 - 107 [facility] Carbon dioxide, total [Moles/volume] in Serum or Plasma 30 MEQ/L 22 - 30 [facility] Glucose [Mass/volume] in Serum or Plasma 86 MG/DL 65 - 110 [facility] BUN <4 MG/DL 7 - 21 L [facility] Creatinine [Mass/volume] in Serum or Plasma 0.5 MG/DL 0.7 - 1.5 L [facility] BUN/CREAT 8 8 - 27 [facility] al Protein [Mass/volume] in Serum or Plasma 5.1 G/DL 6.3 - 8.2 L [facility] Albumin [Mass/volume] in Serum or Plasma 2.9 G/DL 3.9 - 5.0 L [facility] Globulin [Mass/volume] in Serum by calculation 2.2 GM/DL 2.4 - 3.2 L [facility] A/G RATIO 1.3 0.8 - 2.0 [facility] Calcium [Mass/volume] in Serum or Plasma 8.3 MG/DL 8.4 - 10.2 L [facility] Bilirubin.total [Mass/volume] in Serum or Plasma 0.8 MG/DL 0.2 - 1.3 [facility] Alkaline phosphatase [Enzymatic activity/volume] in Serum or Plasma 70 U/L 38 - 126 [facility] Aspartate aminotransferase [Enzymatic activity/volume] in Se rum or Plasma 8 U/L 5 - 40 [facility] Alanine aminotransferase [Enzymatic activity/volume] in Seru m or Plasma 7 U/L 7 - 56 [facility] Anion gap 3 in Serum or Plasma 5.0 mmol/L 8.0 - 16.0 L [facility] AGE 64 yrs [facility] NON-AA GFR >60 mL/min [facility] AFR AMER GFR >60 [facility] Male GFR In terprentation [...] >32 mL/min Normal ID Date Data Source [id number] 03/07/2020 10:42:00 AM [facility] Name Value Range Interpretation Code Description Data Miladys rce(s) Supporting Document(s) Iron [Mass/volume] in Serum or Plasma 62 UG/DL 42 - 135 [facility] ID Date Data Source [id number] 03/07/2020 09:11:00 AM [facility] Name Value Range Interpretation Code Description Data Miladys rce(s) Supporting Document(s) CBC W/AUTOMATED DIFF [facility] COMPLETE BLOOD COUNT Leukocytes [#/volume] in Blood by Automated count 2.5 10^3/uL 4.2 - 1 1.0 L [facility] Erythrocytes [#/volume] in Blood by Automated count 2.52 10^6/uL 4. 20 - 5.40 L [facility] Hemoglobin [Mass/volume] in Blood 8.4 g/dL 12.0 - 16.0 L [facility] Hematocrit [Volume Fraction] of Blood by Automated count 24.8 % 3 7.0 - 47.0 L [facility] Erythrocyte mean corpuscular volume [Entitic volume] by Auto mated count 98.4 fL 81.0 - 101 [facility] Erythrocyte mean corpuscular hemoglobin [Entitic mass] by Automated count 33.3 pg 27.0 - 34.0 [facility] Erythrocyte mean corpuscular hemoglobin concentration [Mass/volume] by Automated count 33.9 g/dL 31.0 - 36.0 [facility] Erythrocyte distribution width [Ratio] by Automated count 17.5 % 11.5 - 14.5 H [facility] Platelets [#/volume] in Blood by Automated count 86 10^3/uL 150 - 450 L [facility] Platelet mean volume [Entitic volume] in Blood by Automated count 10.5 fL 7.4 - 10.4 H [facility] Neutrophils/100 leukocytes in Blood by Automated count 66.3 % 37. 0 - 80.0 [facility] Lymphocytes/100 leukocytes in Blood by Manual count 18.9 % 25.0 - 40.0 L [facility] Monocytes/100 leukocytes in Blood by Automated count 10.8 % 3.0 - 8.0 H [facility] Eosinophils/100 leukocytes in Blood by Automated count 2.8 % 0.0 - 7.0 [facility] Basophils/100 leukocytes in Blood by Automated count 0.8 % 0.0 - 2.5 [facility] %IG 0.4 % 0.0 - 0.0 [facility] %NRBC 0.0 % 0.0 - 0.0 [facility] al Neutrophils [#/volume] in Blood by Automated count 1.65 10^3/uL 2.00 - 6.90 L [facility] Lymphocytes [#/volume] in Blood by Automated count 0.47 10^3/uL 0.60 - 3.40 L [facility] Monocytes [#/volume] in Blood by Automated count 0.27 10^3/uL 0.00 - 0.90 [facility] Eosinophils [#/volume] in Blood by Automated count 0.07 10^3/uL 0.00 - 0.70 [facility] Basophils [#/volume] in Blood by Automated count 0.02 10^3/uL 0.00 - 0.20 [facility] #IG 0.01 10^3/uL 0.00 - 0.10 [facility] ospital #NRBC 0.00 10^3/uL 0.00 - 0.00 [facility] MANUAL DIFF NOT INDICATED [facility] RBC MORPH NOT INDICATED [facility] ID Date Data Source [id number] 03/07/2020 08:40:00 AM [facility] Name Value Range Interpretation Code Description Data Miladys rce(s) Supporting Document(s) Magnesium [Mass/volume] in Serum or Plasma 1.1 MG/DL 1.7 - 2.2 L [facility] ID Date Data Source [id number] 03/07/2020 08:40:00 AM [facility] Name Value Range Interpretation Code Description Data Miladys e(s) Supporting Document(s) COMPREHENSIVE METABOLIC PANEL [facility] COMPREHENSIVE METABOLIC PANEL Sodium [Moles/volume] in Serum or Plasma 139 mEq/L 134 - 153 [facility] Potassium [Moles/volume] in Serum or Plasma 3.4 mEq/L 3.6 - 5.0 L [facility] Chloride [Moles/volume] in Serum or Plasma 107 mEq/L 98 - 107 [facility] Carbon dioxide, total [Moles/volume] in Serum or Plasma 26 MEQ/L 22 - 30 [facility] Glucose [Mass/volume] in Serum or Plasma 91 MG/DL 65 - 110 [facility] BUN 5 MG/DL 7 - 21 L [facility] al Creatinine [Mass/volume] in Serum or Plasma 0.5 MG/DL 0.7 - 1.5 L [facility] BUN/CREAT 10 8 - 27 [facility] Protein [Mass/volume] in Serum or Plasma 4.7 G/DL 6.3 - 8.2 L [facility] Albumin [Mass/volume] in Serum or Plasma 3.0 G/DL 3.9 - 5.0 L [facility] Globulin [Mass/volume] in Serum by calculation 1.7 GM/DL 2.4 - 3.2 L [facility] A/G RATIO 1.8 0.8 - 2.0 [facility] Calcium [Mass/volume] in Serum or Plasma 8.0 MG/DL 8.4 - 10.2 L [facility] Bilirubin.total [Mass/volume] in Serum or Plasma <0.7 MG/DL 0.2 - 1.3 [facility] Alkaline phosphatase [Enzymatic activity/volume] in Serum or Plasma 69 U/L 38 - 126 [facility] Aspartate aminotransferase [Enzymatic activity/volume] in Se rum or Plasma 8 U/L 5 - 40 [facility] Alanine aminotransferase [Enzymatic activity/volume] in Seru m or Plasma 6 U/L 7 - 56 L [facility] Anion gap 3 in Serum or Plasma 6.0 mmol/L 8.0 - 16.0 L [facility]GE 64 [facility]/min [facility] AFR AMER GFR >60 [facility] Male GFR In terprentation [...] >32 mL/min Normal ID Date Data Source [id number] 03/11/2020 06:20:00 AM [facility] Name Value Range Interpretation Code Description Data Miladys rce(s) Supporting Document(s) Clostridium difficile toxin A+B [Presence] in Stool by Immun oassay Negative Negative [facility] ID Date Data Source [id number] 03/10/2020 06:12:00 AM [facility] Name Value Range Interpretation Code Description Data Miladys rce(s) Supporting Document(s) WBC STOOL [facility] al _WBC STOOL_$$[id number]$$[id number]$$[id number] $$[id number]$$[id number]$$[id number] DATE/TIME: 03/09/2020 18:05Culture: WBC STOOL Status: FinalWhite Blood Cells (WBC), Stool: P1No white blood cells seen.Reference Range: None SeenP1 Test performed by: Tr DURAN #: [id number] [address] [place] [address] [id number] [facility] [id number] Director : Hira Cole MD NPI #:Local Sales Associate : [email or web address] REF ID Date Data Source [id number] 03/06/2020 07:44:00 AM [facility] Name Value Range Interpretation Code Description Data Miladys rce(s) Supporting Document(s) Magnesium [Mass/volume] in Serum or Plasma 1.4 MG/DL 1.7 - 2.2 L [facility] ID Date Data Source [id number] 03/06/2020 07:44:00 AM [facility] Name Value Range Interpretation Code Description Data Miladys rce(s) Supporting Document(s) COMPREHENSIVE METABOLIC PANEL [facility] COMPREHENSIVE METABOLIC PANEL Sodium [Moles/volume] in Serum or Plasma 141 mEq/L 134 - 153 [facility] Potassium [Moles/volume] in Serum or Plasma 3.8 mEq/L 3.6 - 5.0 [facility] Chloride [Moles/volume] in Serum or Plasma 108 mEq/L 98 - 107 H [facility] Carbon dioxide, total [Moles/volume] in Serum or Plasma 27 MEQ/L 22 - 30 [facility] Glucose [Mass/volume] in Serum or Plasma 114 MG/DL 65 - 110 H [facility] BUN 9 MG/DL 7 - 21 [facility] Creatinine [Mass/volume] in Serum or Plasma 0.6 MG/DL 0.7 - 1.5 L [facility] BUN/CREAT 15 8 - 27 [facility] al Protein [Mass/volume] in Serum or Plasma 5.3 G/DL 6.3 - 8.2 L [facility] Albumin [Mass/volume] in Serum or Plasma 3.5 G/DL 3.9 - 5.0 L [facility] Globulin [Mass/volume] in Serum by calculation 1.8 GM/DL 2.4 - 3.2 L [facility] A/G RATIO 1.9 0.8 - 2.0 [facility] Calcium [Mass/volume] in Serum or Plasma 8.6 MG/DL 8.4 - 10.2 [facility] Bilirubin.total [Mass/volume] in Serum or Plasma <0.7 MG/DL 0.2 - 1.3 [facility] Alkaline phosphatase [Enzymatic activity/volume] in Serum or Plasma 80 U/L 38 - 126 [facility] Aspartate aminotransferase [Enzymatic activity/volume] in Se rum or Plasma 8 U/L 5 - 40 [facility] Alanine aminotransferase [Enzymatic activity/volume] in Seru m or Plasma 8 U/L 7 - 56 [facility] Anion gap 3 in Serum or Plasma 6.0 mmol/L 8.0 - 16.0 L [facility] AGE 64 yrs [facility] NON-AA GFR >60 mL/min [facility] AFR AMER GFR >60 [facility] Male GFR In terprentation [...] >32 mL/min Normal ID Date Data Source [id number] 03/06/2020 07:33:00 AM EST [facility] Name Value Range Interpretation Code Description Data Miladys rce(s) Supporting Document(s) CBC W/AUTOMATED DIFF [facility] COMPLETE BLOOD COUNT Leukocytes [#/volume] in Blood by Automated count 2.7 10^3/uL 4.2 - 1 1.0 L [facility] Erythrocytes [#/volume] in Blood by Automated count 2.68 10^6/uL 4. 20 - 5.40 L [facility] Hemoglobin [Mass/volume] in Blood 8.8 g/dL 12.0 - 16.0 L [facility] Hematocrit [Volume Fraction] of Blood by Automated count 26.9 % 3 7.0 - 47.0 L [facility] Erythrocyte mean corpuscular volume [Entitic volume] b y Automated count 100.4 fL 81.0 - 101 [facility] Erythrocyte mean corpuscular hemoglobin [Entitic mass] by Automated count 32.8 pg 27.0 - 34.0 [facility] Erythrocyte mean corpuscular hemoglobin concentration [Mass/volume] by Automated count 32.7 g/dL 31.0 - 36.0 [facility] Erythrocyte distribution width [Ratio] by Automated count 18.1 % 11.5 - 14.5 H [facility] Platelets [#/volume] in Blood by Automated count 96 10^3/uL 150 - 450 L [facility] Platelet mean volume [Entitic volume] in Blood by Automated count 10.5 fL 7.4 - 10.4 H [facility] Neutrophils/100 leukocytes in Blood by Automated count 67.5 % 37. 0 - 80.0 [facility] Lymphocytes/100 leukocytes in Blood by Manual count 18.1 % 25.0 - 40.0 L [facility] Monocytes/100 leukocytes in Blood by Automated count 10.0 % 3.0 - 8.0 H [facility] Eosinophils/100 leukocytes in Blood by Automated count 2.2 % 0.0 - 7.0 [facility] Basophils/100 leukocytes in Blood by Automated count 1.5 % 0.0 - 2.5 [facility] %IG 0.7 % 0.0 - 0.0 [facility] 0.0 % 0.0 - 0.0 [facility] al Neutrophils [#/volume] in Blood by Automated count 1.82 10^3/uL 2.00 - 6.90 L [facility] Lymphocytes [#/volume] in Blood by Automated count 0.49 10^3/uL 0.60 - 3.40 L [facility] Monocytes [#/volume] in Blood by Automated count 0.27 10^3/uL 0.00 - 0.90 [facility] Eosinophils [#/volume] in Blood by Automated count 0.06 10^3/uL 0.00 - 0.70 [facility] Basophils [#/volume] in Blood by Automated count 0.04 10^3/uL 0.00 - 0.20 [facility] #IG 0.02 10^3/uL 0.00 - 0.10 [facility] ospital #NRBC 0.00 10^3/uL 0.00 - 0.00 [facility] MANUAL DIFF NOT INDICATED [facility] RBC MORPH NOT INDICATED [facility] spital ID Date Data Source [id number] 03/10/2020 09:30:00 AM EST [facility] Name Value Range Interpretation Code Description Data Miladys rce(s) Supporting Document(s) CULTURE STOOL [facility] _CULTURE STOOL_$$[id number]$$[id number]$$[id number]$$[id number]$$[id number]$$[id number]$$[id number]$$[id number]$$[id number]$$ [id number]$$[id number]$$[id number]$$[id number] DATE/TIME: 03/10/2020 07:06Culture: CULTURE STOOL Status: FinalSalmonella/Shigella Screen: P1No Salmonella or Shigella recovered.NO COLIFORMS ISOLATED Previous result entered on 03/08/2020 12:28 ET Microbiological testing to rule out the presence of possible pathogensis in progress.Campylobacter Culture: P1No Campylobacter species isolated. -- Continued on next page --Patient: GAMA Nobles Order: [id number] Page 2Culture: CULTURE STOOL Status: Final ====E coli Shiga Toxin EIA: W4SmevyjefBicavncfs Range: NegativeP1 Test performed by: [facility] #: [id number] [address] [place] [address] [id number] [facility] [address]Medical Director : Hira Cole MD NPI #:Local Sales Associate : 03/09/20.0723.XMT.SENT REF 03/09/20.1434.XMT.SENT REF 03/10/20.0930.XMT.SENT REF ID Date Data Source [id number] 03/05/2020 10:21:00 AM EST [facility] Name Value Range Interpretation Code Description Data Miladys rce(s) Supporting Document(s) Lactate [Moles/volume] in Serum or Plasma 1.9 MMOL/L 0.2 - 2.2 [facility] ID Date Data Source [id number] 03/05/2020 09:13:00 AM EST [facility] [address] [facility] [place] [address] PHONE: [phone] FAX: [phone] Name .................. : GAMA Nobles Acct Number.................. : [id number] ROOM. ................. : 103-1 MR Number ................... : [id number] Stay type ............. : O/P Discharge Date......... ... : Admit Date ......... : 03/04/20 Admit Phys .................... : DANIKA-LAWRENCE Date of ....... : 1955 Family Phys ................... : NON STAFF Phone .................. : [phone] Age ................................ : 64 Film# .................. .:[id number] Sex ................................. : F Unsigned transcriptions are preliminary reports and do not represent a medical or legal document ABDOMEN 1 VIEW [id number] COMPLETE:03/04/20 14:04 ARS 792 Reason(s): n/v/d r/o [...] rce(s) Supporting Document(s) ID Date Data Source [id number] 03/05/2020 08:08:00 AM EST [facility] Name Value Range Interpretation Code Description Data Miladys rce(s) Supporting Document(s) CBC W/AUTOMATED DIFF [facility] COMPLETE BLOOD COUNT Leukocytes [#/volume] in Blood by Automated count 2.3 10^3/uL 4.2 - 1 1.0 L [facility] Erythrocytes [#/volume] in Blood by Automated count 2.70 10^6/uL 4. 20 - 5.40 L [facility] Hemoglobin [Mass/volume] in Blood 9.1 g/dL 12.0 - 16.0 L [facility] Hematocrit [Volume Fraction] of Blood by Automated count 27.1 % 3 7.0 - 47.0 L [facility] Erythrocyte mean corpuscular volume [Entitic volume] b y Automated count 100.4 fL 81.0 - 101 [facility] Erythrocyte mean corpuscular hemoglobin [Entitic mass] by Automated count 33.7 pg 27.0 - 34.0 [facility] Erythrocyte mean corpuscular hemoglobin concentration [Mass/volume] by Automated count 33.6 g/dL 31.0 - 36.0 [facility] Erythrocyte distribution width [Ratio] by Automated count 18.0 % 11.5 - 14.5 H [facility] Platelets [#/volume] in Blood by Automated count 92 10^3/uL 150 - 450 L [facility] Platelet mean volume [Entitic volume] in Blood by Automated count 10.7 fL 7.4 - 10.4 H [facility] Neutrophils/100 leukocytes in Blood by Automated count 60.3 % 37. 0 - 80.0 [facility] Lymphocytes/100 leukocytes in Blood by Manual count 20.3 % 25.0 - 40.0 L [facility] Monocytes/100 leukocytes in Blood by Automated count 16.0 % 3.0 - 8.0 H [facility] Eosinophils/100 leukocytes in Blood by Automated count 1.3 % 0.0 - 7.0 [facility] Basophils/100 leukocytes in Blood by Automated count 1.7 % 0.0 - 2.5 [facility] %IG 0.4 % 0.0 - 0.0 [facility] %NRBC 0.0 % 0.0 - 0.0 [facility] al Neutrophils [#/volume] in Blood by Automated count 1.39 10^3/uL 2.00 - 6.90 L [facility] Lymphocytes [#/volume] in Blood by Automated count 0.47 10^3/uL 0.60 - 3.40 L [facility] Monocytes [#/volume] in Blood by Automated count 0.37 10^3/uL 0.00 - 0.90 [facility] Eosinophils [#/volume] in Blood by Automated count 0.03 10^3/uL 0.00 - 0.70 [facility] Basophils [#/volume] in Blood by Automated count 0.04 10^3/uL 0.00 - 0.20 [facility] #IG 0.01 10^3/uL 0.00 - 0.10 [facility] #NRBC 0.00 10^3/uL 0.00 - 0.00 [facility] MANUAL DIFF SEE BELOW [facility] ital Segmented neutrophils/100 leukocytes in Blood by Manual count 65 % 37 - 80 [facility] %LYMPH 23 % 25 - 40 L [facility] %MONO 11 % 3 - 8 H [facility] %EOS 1 % 0 - 7 [facility] RBC MORPH SEE BELOW [facility] al Anisocytosis [Presence] in Blood by Light microscopy 1+ NATASHA L: NONE SEEN A [facility] Macrocytes [Presence] in Blood by Light microscopy 1+ NORMAL: NONE SEEN A [facility] Poikilocytosis [Presence] in Blood by Light microscopy 1+ NOR MAL: NONE SEEN A [facility] { SICKLE CELL (NORMAL: NONE SEEN ) Platelet adequacy [Presence] in Blood by Light microscopy DE CREASED NORMAL: NORMAL A [facility] COMMENT: ID Date Data Source [id number] 03/05/2020 07:47:00 AM [facility] Name Value Range Interpretation Code Description Data Miladys rce(s) Supporting Document(s) Phosphate [Mass/volume] in Serum or Plasma 3.6 MG/DL 2.5 - 4.5 [facility] ID Date Data Source [id number] 03/05/2020 07:47:00 AM [facility] Value Range Interpretation Code Description Data Miladys rce(s) Supporting Document(s) Magnesium [Mass/volume] in Serum or Plasma 1.6 MG/DL 1.7 - 2.2 L [facility] ID Date Data Source [id number] 03/05/2020 07:47:00 AM [facility] Name Value Range Interpretation Code Description Data Miladys rce(s) Supporting Document(s) COMPREHENSIVE METABOLIC PANEL [facility] COMPREHENSIVE METABOLIC PANEL Sodium [Moles/volume] in Serum or Plasma 144 mEq/L 134 - 153 [facility] Potassium [Moles/volume] in Serum or Plasma 3.3 mEq/L 3.6 - 5.0 L [facility] Chloride [Moles/volume] in Serum or Plasma 106 mEq/L 98 - 107 [facility] Carbon dioxide, total [Moles/volume] in Serum or Plasma 29 MEQ/L 22 - 30 [facility] Glucose [Mass/volume] in Serum or Plasma 110 MG/DL 65 - 110 [facility] BUN 17 MG/DL 7 - 21 [facility] al Creatinine [Mass/volume] in Serum or Plasma 0.8 MG/DL 0.7 - 1.5 [facility] BUN/CREAT 21 8 - 27 [facility] al Protein [Mass/volume] in Serum or Plasma 5.3 G/DL 6.3 - 8.2 L [facility] Albumin [Mass/volume] in Serum or Plasma 3.5 G/DL 3.9 - 5.0 L [facility] Globulin [Mass/volume] in Serum by calculation 1.8 GM/DL 2.4 - 3.2 L [facility] A/G RATIO 1.9 0.8 - 2.0 [facility] Calcium [Mass/volume] in Serum or Plasma 8.5 MG/DL 8.4 - 10.2 [facility] Bilirubin.total [Mass/volume] in Serum or Plasma <0.7 MG/DL 0.2 - 1.3 [facility] Alkaline phosphatase [Enzymatic activity/volume] in Serum or Plasma 73 U/L 38 - 126 [facility] Aspartate aminotransferase [Enzymatic activity/volume] in Se rum or Plasma 8 U/L 5 - 40 [facility] Alanine aminotransferase [Enzymatic activity/volume] in Seru m or Plasma 8 U/L 7 - 56 [facility] Anion gap 3 in Serum or Plasma 9.0 mmol/L 8.0 - 16.0 [facility]GE 64 [facility] >60 mL/min [facility] ital AFR AMER GFR >60 [facility] Male GFR In terprentation [...] >32 mL/min Normal ID Date Data Source [id number] 03/05/2020 02:48:00 AM EST [facility] Name Value Range Interpretation Code Description Data Miladys rce(s) Supporting Document(s) BASIC METABOLIC PANEL [facility] BASIC METABOLIC PANEL Sodium [Moles/volume] in Serum or Plasma 140 mEq/L 134 - 153 [facility] Potassium [Moles/volume] in Serum or Plasma 3.4 mEq/L 3.6 - 5.0 L [facility] Chloride [Moles/volume] in Serum or Plasma 102 mEq/L 98 - 107 [facility] Carbon dioxide, total [Moles/volume] in Serum or Plasma 28 MEQ/L 22 - 30 [facility] Glucose [Mass/volume] in Serum or Plasma 136 MG/DL 65 - 110 H [facility] BUN 20 MG/DL 7 - 21 [facility] al Creatinine [Mass/volume] in Serum or Plasma 0.8 MG/DL 0.7 - 1.5 [facility] BUN/CREAT 25 8 - 27 [facility] Calcium [Mass/volume] in Serum or Plasma 8.7 MG/DL 8.4 - 10.2 [facility] Anion gap 3 in Serum or Plasma 10.0 mmol/L 8.0 - 16.0 [facility] AGE 64 yrs [facility] al AFR AMER GFR >60 [facility] NON-AA GFR >60 mL/min [facility] ital Male GFR Inter prentation [...] >32 mL/min Normal ID Date Data Source [id number] 03/05/2020 02:41:00 AM EST [facility] Name Value Range Interpretation Code Description Data Miladys rce(s) Supporting Document(s) Magnesium [Mass/volume] in Serum or Plasma 1.7 MG/DL 1.7 - 2.2 [facility] ID Date Data Source [id number] 03/04/2020 08:14:00 PM [facility] Name Value Range Interpretation Code Description Data Miladys rce(s) Supporting Document(s) URINALYSIS [facility] sumeet URINALYSIS SOURCE R [facility] COLOR yellow NORMAL: Yellow [facility] CLARITY hazy NORMAL: Clear [facility] Specific gravity of Urine by Test strip 1.020 1.001 - 1.030 [facility] pH 5 5 - 9 [facility] Glucose [Mass/volume] in Urine by Test strip NORM NORMAL: Negat [facility] Bilirubin.total [Presence] in Urine by Test strip NEG NORMAL: Negative [facility] Ketones [Presence] in Urine by Test strip NEG NORMAL: Negative [facility] Protein [Mass/volume] in Urine by Test strip [facility] [Presence] in Urine by Test strip NEG NORMAL: Negative [facility] BLOOD NEG NORMAL: Negative [facility] Leukocyte esterase [Presence] in Urine by Test strip NEG NATASHA L: Negative [facility] Urobilinogen [Mass/volume] in Urine by Test strip NOR less lori n 1.0 mg/dL [facility] MICROSCOPIC Not Indicate [facility] ID Date Data Source [id number] 03/04/2020 12:24:00 PM [facility] 1 OrderSheet [facility] Emergency Department [address] [place] [address] Phone #: ext- [phone] 03/04/2020 11:58 Patient: JEREMI MALLOY Sex: F : 1955 Age: 64yWEIGHT:83.2 kg (S) HEIGHT:64 inches (S) BMI:31.5ALLERGIES: Amitriptyline, Carisoprodol, Codeine, Doxycycline, FLUOCINOLONE, Gabapentin, Keppra,Metformin , NSAIDs, OCYCODONE, PredniSONE, Quinolones, Spironolactone, TylenolCHIEF COMPLAINT: diarrheaDIAGNOSIS: Diarrhea, O/E - dehydrated, HypomagnesemiaLAB OR DERSOrder Description Priority Entered Acknowledged InitialedCBC w Diff STAT 12:04 03/04/2020 12:18 Natasha [...] (FirstTest) (NotHospitalized) (Not) (NotResident in 2 OrderSheet [facility] Emergency Department [address] [place] [address] Phone #: ext- [phone] 03/04/2020 11:58 Patient: JEREMI MALLOY Sex: F : 1955 Age: 64yCongregate CareSetting) (NotEmployed inHealthcare Setting)Clostridium Difficile STAT 17:11 03/04/2020 18:28 PeterToxin Natasha Montero MD; Rachid RNDIAGNOSTIC STUDY ORDERSOrder Description Priority [...] rce(s) Supporting Document(s) ID Date Data Source [id number] 03/04/2020 12:24:00 PM EST [facility] 1 Medication Reconciliation Report [facility] Emergency Department [address] [place] [address] Phone #: ext- [phone] 03/04/2020 11:58 Patient: [...] a day, prn 2 Medication Reconciliation Report [facility] Emergency Department [address] [place] [address] Phone #: ext- [phone] 03/04/2020 11:58 Patient: [...] rce(s) Supporting Document(s) ID Date Data Source [id number] 03/04/2020 12:24:00 PM [facility] 1 Medication Administration Record [facility] Emergency Department [address] [place] [address] Phone #: ext- [phone] 03/04/2020 11:58 Patient: JEREMI MALLOY Sex: F : 1955 Age: 64yWeight: 83.2 kgHeight/Length: 64 inBMI: 31.5ALLERGIES: Quinolones, FLUOCINOLONE, Doxycycline, Tylenol, Spironolactone, PredniSONE, OCYCODONE, Metformin ,Keppra, Gabapentin, Codeine, Carisoprodol, Amitriptyline, NSAIDs Date/Time Medication Administered Medication OrderedStart NS [IV] IV NS 500 mL Bolus : Bolus 73822:45 03/04/2020 Dose: IV Fluids mL (X1)Hank Rashid [...] gm Drip IV dose: 2 gm (HIGH ALERTHank Rashid RN Rate: 50 mL/hr over 1 hour(s) MEDICATION, X1)---- Dispensed: 50 mL bagStop Site: #2 right AC18:23 03/04/2020PhLisa cameron, Name Value Range Interpretation Code Description Data Miladys rce(s) Supporting Document(s) ID Date Data Source [id number] 03/04/2020 12:24:00 PM [facility] 1 General Instructions [facility] Emergency Department [address] [place] [address] Phone #: ext- [phone] 03/04/2020 11:58 Patient: JEREMI MALLOY Sex: F : 1955 Age: 64yDiarrhea.Dehydration.Hypomagnesemia.(Electronically signed by Natasha Montero MD 03/04/2020 19:40) Name Value Range Interpretation Code Description Data Miladys rce(s) Supporting Document(s) ID Date Data Source [id number] 03/04/2020 12:24:00 PM [facility] 1 Clinical Report - Nurses [facility] Emergency Department [address] [place] [address] Phone #: ext- [phone] 03/04/2020 11:58 Patient: JEREMI MALLOY Sex: F : 1955 Age: 64yTRIAGE Arrived by EMS. Historian: patient. Acuity: LEVEL 3. Chief Complaint: NAUSEA, VOMITING and DIARRHEA. Alert. No acute distress. Onset. (5 days ago). ( PATIENT IS 3 WEEKS S/P STEM CELL TRANSPLANT AT [facility]. PT HAS LYMPHOMA AND STATES SHE RECEIVED HER OWN STEM CELLS. ONCOLOGIST CONTACTED TODAY WHO ADVISED ER VISIT. PATIENT C/O DIZZINESS AND LIGHTHEADEDNESS STARTING 2 DAYS AGO.). No constipation, abdominal pain or fever. Last oral intake by patient was this morning (0400). 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 (UNABLE TO KEEP HER MEDICATIONS DOWN). EMS Treatment BUILDING ARCHITECTURAL DESIGNER: See EMS report. SEPSIS SCREEN: SEPSIS SCREEN [...] Ramos R.N. 2 Clinical Report - Nurses [facility] Emergency Department [address] [place] [address] Phone #: ext- [phone] 03/04/2020 11:58 Patient: [...] Ramos R.N.AllergiesNSAIDs. --12:08 03/04/20 Olga Ramos R.N.Amitriptyline. --12:03/04/20 Olga Ramos R.N.Carisoprodol. --12:03/04/20 Olga Ramos R.N.Codeine. --12:03/04/20 Olga Ramos R.N.Gabapentin. --12:03/04/20 Olga Ramos R.ChayoKeppra. --12:03/04/20 Olga Ramos R.ChayoMetformin . --12:03/04/20 Olga Ramos R.N.OCYCODONE. --12:03/04/20 Olga Ramos R.N.PredniSONE. --12:03/04/20 Olga Ramos R.N.Spironolactone. --12:03/04/20 Olga Ramos R.ChayoTylenol. --12:03/04/20 Olga Ramos R.ChayoDoxycycline. --12:03/04/20 Olga Ramos R.N.FLUOCINOLONE. --12:03/04/20 Olga Ramos R.ChayoQuinolones. --12:03/04/20 Olga Ramos R.N.PROBLEMS:Hyperlipidemia.borderline DM.Htn.Malignant Lymphoma. --12:03/04/20 Olga Ramos RLori.Medication/allergy information source: the patient. --12:07 03/04/20 Olga [...] or Coronavirus. 3 Clinical Report - Nurses [facility] Emergency Department [address] [place] [address] Phone #: ext- [phone] 03/04/2020 11:58 Patient: [...] Patient ready for evaluation. --12:03/04/20 Olga Ramos R.N. 12:03/04/2020 Site #1 started via IV in the right hand with an 20g angiocath, with aseptic technique and good blood return; one attempt. --:03/04/20 Hank Rashid RN 12:03/04/2020 Site #1 removed (infiltrated). 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 --13: Hank Rashid RN13:15 03/04/20. BP: 127/93. MAP: 104. HR: 101. RR: 16. O2 saturation: 98%. Pain level now: 0/10.--13:15 03/04/20 KARUNA Parry:45 03/04/20. BP: 112/81. MAP: 91. HR: 96. RR: 18. O2 saturation: 96%. --15:44 03/04/20 [facility] Mrkn517[facility]15 03/04/20. BP: 128/77. MAP: 94. HR: 95. RR: 17. O2 saturation: 96%. --15:45 03/04/20 [facility] Vvqw063:45 03/04/20. BP: 136/84. MAP: 101. HR: 98. RR: 17. O2 saturation: 95%. --15:45 03/04/20 [facility] Fokg584:15 03/04/20. BP: 118/74. MAP: 88. HR: 99. RR: 17. O2 saturation: 95%. --15:46 03/04/20 [facility] Uypc872:44 03/04/2020 POTASSIUM CHLORIDE LIQUID PO PO Oral Suspension 40 meq given. Allergiesverified and confirmed 5 rights. Information reviewed with patient including reason for taking thismedication, signs of allergic reaction and precautions. Verbalizes understanding. --16:44 03/04/20PhLisa cameronTime-out completed immediately before the procedure. (swabbed for covid rapid test) --16:50 03/04/20Phnisha Wanda16:45 03/04/20. BP: 144/81. MAP: 102. O2 saturation: 97%. Pain level now: 0/10. --16:50 03/04/20PhelSupa alonzoda17:22 03/04/2020 IV Fluids NS via IV site #2 Discontinued: infused. Total amount infused: 990 mL. IVpatency established. IV site checked: no pain, redness, or swelling. IV flushed thoroughly. --17: Hank Rashid RN 5 Clinical Report - Nurses [facility] Emergency Department [address] [place] [address] Phone #: ext- [phone] 03/04/2020 11:58 Patient: [...] F. Pain level now: 0/10. --18:22 03/04/20 McneilLisa torres 18:23 03/04/2020 Magnesium Sulfate Drip IV via IV site #2 Discontinued: bag #1 completed. Total amount infused: 50 ml mL. IV patency established. IV site checked: no pain, redness, or swelling. IV flushed thoroughly. --18:23 03/04/20 Lisa Mcneil.DISPOSITION / DISCHARGE 18:40 03/04/20. Departure time: 18:40 03/04/2020. Johnston Coma Scale: 15- eyes open- spontaneous (4); [...] rce(s) Supporting Document(s) ID Date Data Source [id number] 03/04/2020 12:24:00 PM [facility] 1 Clinical Report - Physicians/Mid Levels [facility] Emergency Department [address] [place] [address] Phone #: ext- [phone] 03/04/2020 11:58 Patient: [...] 3 WEEKS S/P STEM CELL TRANSPLANT AT [facility]. PT HAS LYMPHOMA AND STATES [...] REMOVAL. 2 Clinical Report - Physicians/Mid Levels [facility] Emergency Department [address] [place] [address] Phone #: ext- [phone] 03/04/2020 11:58 Patient: JEREMI MALLOYN: [id number] Sex: F : 1955 Age: 64y M [...] 0/10. 3 Clinical Report - Physicians/Mid Levels [facility] Emergency Department [address] [place] [address] Phone #: ext- [phone] 03/04/2020 11:58 [id number] Sex: F : 1955 Age: 64y105/05/2019 15:45 [...] (1.7 - 2.2)Phosphorus: (BERNADETTE: 03/04/2020 12:41) ( NjgRcvd 03/04/2020 13:54) Final results Test Result Flag Units (Reference) PHOSPHORUS 4.0 MG/DL (2.5 - 4.5)Abdomen 1 View: (BERNADETTE: 03/04/2020 12:55) ( MsgRcvd 03/04/2020 14:04) In ProgressABDOMEN 1 VIEWReason(s): n/v/d r/o obstructionTRANSPORTATION: WC IV? Room: ED ED5C w Diff: (BERNADETTE: 03/04/2020 12:41) ( NjgRcvd 03/04/2020 13:21) Final results Test Result Flag Units (Reference) 4 Clinical Report - Physicians/Mid Levels [facility] Emergency Department [address] [place] [address] Phone #: ext- [phone] 03/04/2020 11:58 ------ [...] Male GFR Interprentation 20-49 yrs >60 mL/min Jhpxwl76-07 yrs >56 mL/min Normal 60-69 yrs >49 mL/min Normal 70-79yrs> 42 mL/min Normal 80 and above >35 mL/min Normal Female GFRInterpretation 20-39 yrs >60 mL/min Normal 40-49 yrs >58 mL/minNormal 50-59 yrs >51 mL/min Normal 60-69 yrs >45 mL/min Normal 5 Clinical Report - Physicians/Mid Levels [facility] Emergency Department [address] [place] [address] Phone #: ext- [phone] 03/04/2020 11:58 Patient: JEREMI MALLOY MRN: [id number] Sex: F : 1955 Age: 64y 70-79 yrs >39 mL/min Normal 80 and above > 32 mL/min Normal Lactic Acid: (BERNADETTE: 03/04/2020 12:41) ( MsgRcvd 03/04/2020 13:05) Final results Test Result Flag Units (Reference) LACTIC ACID 3.4 H MMOL/L (0.2 - 2.2) LDH: (BERNADETTE: 03/04/2020 12:41) ( [facility] 03/04/[facility] 13:17) Final results Test Result Flag Units (Reference) LDH 304 H U/L (135 - 214) Lipase: (BERNADETTE: 03/04/2020 12:41) ( [facility] 03/04/2020 13:17) Final results Test Result Flag Units (Reference) LIPASE 13 U/L (13 - 60) Abdomen Multiview: (BERNADETTE: 03/04/2020 12:23) ( [facility] 03/04/2020 12:55) Canceled Reason(s): Abdominal Pain Reason(s): Abdominal Pain TRANSPORTATION: S IV? O2? Oxygen?(No) Room: ED.PROGRESS AND PROCEDURESCourse of Care: Pt is a 64 year old female who has multiple myeloma who had an autologous stem celltransfusion done in january at [facility]. She has done well. pt states [...] called and spoke to her doctor at [facility]. She agreed with care plan.I called and spoke to Kavya. she agreed to admit. pt comfortable with the plan to admit here [facility]. Patient/family counseled. Disposition: Admitted to the Acute Inpatient Unit, Monitored. Condition: good and stable.CLINICAL IMPRESSION Diarrhea. Dehydration. Hypomagnesemia. 6 Clinical Report - Physicians/Mid Levels [facility] Emergency Department [address] [place] [address] Phone #: ext- [phone] 03/04/2020 11:58 Patient: JEREMI MALLOY Sex: F : 1955 Age: 64y(Electronically signed by Natasha Montero MD 03/04/2020 19:40) Name Value Range Interpretation Code Description Data Miladys rce(s) Supporting Document(s) ID Date Data Source [id number] 03/04/2020 12:24:00 PM EST [facility] Addenda for JEREMI MALLOY VisitID: [id number] Date: 17:32MED REC REQUEST FAXED TO [employer] WITH PATIENTS MED LISTS [facility] OVERVIEW @ [phone](Electronically signed by Moreno Pineda - 03/04/2020 17:32)03/04/2020 17:54OVERVIEW FAXED TO [facility] AT [phone]. [facility] MADE AWARE(Electronically signed by Moreno Shrestha - 03/04/2020 17:54) Name Value Range Interpretation Code Description Data Miladys rce(s) Supporting Document(s) ID Date Data Source [id number] 03/04/2020 04:52:00 PM EST [facility] Name Value Range Interpretation Code Description Data Miladys rce(s) Supporting Document(s) COVID-19 [facility] This lab was ordered by [facility] and reported by [facility]. ID Date Data Source [id number] 03/04/2020 04:52:00 PM EST [facility] Name Value Range Interpretation Code Description Data Miladys rce(s) Supporting Document(s) COVID-19 [facility] This lab was ordered by [facility] and reported by [facility]. ID Date Data Source [id number] 03/04/2020 05:26:00 PM EST [facility] Name Value Range Interpretation Code Description Data Miladys rce(s) Supporting Document(s) COVID-19 NOT DETECTED [facility] COVID-19 REENTER NOT DETECTED [facility] { PROCEDURAL CONTROL VALID KIT LOT [...] PATIENT MANAGEMENT DECISIONS. ID Date Data Source [id number] 03/04/2020 04:33:00 PM [facility] Name Value Range Interpretation Code Description Data Miladys rce(s) Supporting Document(s) Magnesium [Mass/volume] in Serum or Plasma 1.3 MG/DL 1.7 - 2.2 L [facility] ID Date Data Source [id number] 03/04/2020 01:54:00 PM [facility] Name Value Range Interpretation Code Description Data Miladys rce(s) Supporting Document(s) Phosphate [Mass/volume] in Serum or Plasma 4.0 MG/DL 2.5 - 4.5 [facility] ID Date Data Source [id number] 03/04/2020 01:20:00 PM [facility] Name Value Range Interpretation Code Description Data Miladys rce(s) Supporting Document(s) CBC W/AUTOMATED DIFF [facility] COMPLETE BLOOD COUNT Leukocytes [#/volume] in Blood by Automated count 4.4 10^3/uL 4.2 - 1 1.0 [facility] Erythrocytes [#/volume] in Blood by Automated count 3.27 10^6/uL 4. 20 - 5.40 L [facility] Hemoglobin [Mass/volume] in Blood 11.1 g/dL 12.0 - 16.0 L [facility] Hematocrit [Volume Fraction] of Blood by Automated count 32.0 % 3 7.0 - 47.0 L [facility] Erythrocyte mean corpuscular volume [Entitic volume] by Auto mated count 97.9 fL 81.0 - 101 [facility] Erythrocyte mean corpuscular hemoglobin [Entitic mass] by Automated count 33.9 pg 27.0 - 34.0 [facility] Erythrocyte mean corpuscular hemoglobin concentration [Mass/volume] by Automated count 34.7 g/dL 31.0 - 36.0 [facility] Erythrocyte distribution width [Ratio] by Automated count 18.0 % 11.5 - 14.5 H [facility] Platelets [#/volume] in Blood by Automated count 111 10^3/uL 150 - 45 0 L [facility] Platelet mean volume [Entitic volume] in Blood by Automated count 10.5 fL 7.4 - 10.4 H [facility] Neutrophils/100 leukocytes in Blood by Automated count 74.3 % 37. 0 - 80.0 [facility] Lymphocytes/100 leukocytes in Blood by Manual count 12.6 % 25.0 - 40.0 L [facility] Monocytes/100 leukocytes in Blood by Automated count 11.0 % 3.0 - 8.0 H [facility] Eosinophils/100 leukocytes in Blood by Automated count 0.7 % 0.0 - 7.0 [facility] Basophils/100 leukocytes in Blood by Automated count 0.7 % 0.0 - 2.5 [facility] %IG 0.7 % 0.0 - 0.0 [facility] %NRBC 0.0 % 0.0 - 0.0 [facility] al Neutrophils [#/volume] in Blood by Automated count 3.26 10^3/uL 2.00 - 6.90 [facility] Lymphocytes [#/volume] in Blood by Automated count 0.55 10^3/uL 0.60 - 3.40 L [facility] Monocytes [#/volume] in Blood by Automated count 0.48 10^3/uL 0.00 - 0.90 [facility] Eosinophils [#/volume] in Blood by Automated count 0.03 10^3/uL 0.00 - 0.70 [facility] Basophils [#/volume] in Blood by Automated count 0.03 10^3/uL 0.00 - 0.20 [facility] #IG 0.03 10^3/uL 0.00 - 0.10 [facility] ospital #NRBC 0.00 10^3/uL 0.00 - 0.00 [facility] ospital MANUAL DIFF NOT INDICATED [facility] RBC MORPH NOT INDICATED [facility] spital ID Date Data Source [id number] 03/04/2020 01:17:00 PM [facility] Name Value Range Interpretation Code Description Data Miladys rce(s) Supporting Document(s) Lipase [Enzymatic activity/volume] in Serum or Plasma 13 U/L 13 - 60 [facility] ID Date Data Source [id number] 03/04/2020 01:17:00 PM EST [facility] Name Value Range Interpretation Code Description Data Miladys rce(s) Supporting Document(s) Lactate dehydrogenase [Enzymatic activity/volume] in Serum o r Plasma 304 U/L 135 - 214 H [facility] ID Date Data Source [id number] 03/04/2020 01:17:00 PM [facility] Name Value Range Interpretation Code Description Data Miladys rce(s) Supporting Document(s) COMPREHENSIVE METABOLIC PANEL [facility] COMPREHENSIVE METABOLIC PANEL Sodium [Moles/volume] in Serum or Plasma 142 mEq/L 134 - 153 [facility] Potassium [Moles/volume] in Serum or Plasma 3.0 mEq/L 3.6 - 5.0 L [facility] Chloride [Moles/volume] in Serum or Plasma 100 mEq/L 98 - 107 [facility] Carbon dioxide, total [Moles/volume] in Serum or Plasma 31 MEQ/L 22 - 30 H [facility] Glucose [Mass/volume] in Serum or Plasma 125 MG/DL 65 - 110 H [facility] BUN 20 MG/DL 7 - 21 [facility] Creatinine [Mass/volume] in Serum or Plasma 0.9 MG/DL 0.7 - 1.5 [facility] BUN/CREAT 22 8 - 27 [facility] Protein [Mass/volume] in Serum or Plasma 6.3 G/DL 6.3 - 8.2 [facility] Albumin [Mass/volume] in Serum or Plasma 4.0 G/DL 3.9 - 5.0 [facility] Globulin [Mass/volume] in Serum by calculation 2.3 GM/DL 2.4 - 3.2 L [facility] A/G RATIO 1.7 0.8 - 2.0 [facility] al Calcium [Mass/volume] in Serum or Plasma 9.1 MG/DL 8.4 - 10.2 [facility] Bilirubin.total [Mass/volume] in Serum or Plasma 0.8 MG/DL 0.2 - 1.3 [facility] Alkaline phosphatase [Enzymatic activity/volume] in Serum or Plasma 87 U/L 38 - 126 [facility] Aspartate aminotransferase [Enzymatic activity/volume] in Se rum or Plasma 9 U/L 5 - 40 [facility] Alanine aminotransferase [Enzymatic activity/volume] in Seru m or Plasma 10 U/L 7 - 56 [facility] Anion gap 3 in Serum or Plasma 11.0 mmol/L 8.0 - 16.0 [facility]GE 64 y[facility] >60 mL/min [facility] ital AFR AMER GFR >60 [facility] Male GFR In terprentation [...] >32 mL/min Normal ID Date Data Source [id number] 03/04/2020 01:04:00 PM EST [facility] Name Value Range Interpretation Code Description Data Miladys rce(s) Supporting Document(s) Lactate [Moles/volume] in Serum or Plasma 3.4 MMOL/L 0.2 - 2.2 H [facility] ID Date Data Source [id number] 01/29/2020 12:00:00 AM EST [facility] Name Value Range Interpretation Code Description Data Miladys rce(s) Supporting Document(s) SARS coronavirus 2 RNA panel N [facility] This lab was ordered by [facility] C19 TEST [facility] and reported by [facility]. Procedure Social History Code Duration Value Status Description Data Source(s ) Smoking 12/23/2020 12:00:00 AM EDT Former Smoker completed Former Smoker eCW1 ([facility]) Smoking 11/30/2020 12:00:00 AM EDT Former Smoker completed Former Smoker eCW1 ([facility]) Smoking 11/30/2020 12:00:00 AM EDT Former Smoker completed Former Smoker eCW1 ([facility]) Smoking 11/30/2020 12:00:00 AM EDT Former Smoker completed Former Smoker eCW1 ([facility]) Smoking 09/22/2020 12:00:00 AM EDT Former Smoker completed Former Smoker eCW1 ([facility]) Smoking 09/22/2020 12:00:00 AM EDT Former Smoker completed Former Smoker eCW1 ([facility]) Smoking 09/22/2020 12:00:00 AM EDT Former Smoker completed Former Smoker eCW1 ([facility]) Alcohol intake 08/31/2020 12:00:00 AM EDT Ex-drinker (finding) comp leted Ex- drinker (finding) [facility] Smoking 06/11/2020 12:00:00 AM EDT Former Smoker completed Former Smoker eCW1 ([facility]) Smoking 06/11/2020 12:00:00 AM EDT Former Smoker completed Former Smoker eCW1 ([facility]) Alcohol intake 05/28/2020 12:00:00 AM EDT Not Currently completed [facility] Smoking 05/28/2020 12:00:00 AM EDT Former smoker completed Former smoker [facility] Smoking 05/15/2020 12:00:00 AM EST Former Smoker completed Former Smoker eCW1 ([facility]) Smoking 05/15/2020 12:00:00 AM EST Former Smoker completed Former Smoker eCW1 ([facility]) Alcohol intake 05/06/2020 12:00:00 AM EST Not Currently completed [facility] Smoking 05/06/2020 12:00:00 AM EST Former smoker completed Former smoker [facility] Smoking 04/24/2020 12:00:00 AM EST Former Smoker completed Former Smoker eCW1 ([facility]) Smoking 04/24/2020 12:00:00 AM EST Former Smoker completed Former Smoker eCW1 ([facility]) Smoking 04/24/2020 12:00:00 AM EST Former Smoker completed Former Smoker eCW1 ([facility]) Smoking 04/09/2020 12:00:00 AM EST Former Smoker completed Former Smoker eCW1 ([facility]) Smoking 04/09/2020 12:00:00 AM EST Former Smoker completed Former Smoker eCW1 ([facility]) Smoking 04/09/2020 12:00:00 AM EST Former Smoker completed Former Smoker eCW1 ([facility]) Smoking 04/09/2020 12:00:00 AM EST Former Smoker completed Former Smoker eCW1 ([facility]) Alcohol intake 04/08/2020 12:00:00 AM EST Not Currently completed [facility] Smoking 04/08/2020 12:00:00 AM EST Former smoker completed Former smoker [facility] Smoking 03/24/2020 12:00:00 AM EST Former Smoker completed Former Smoker eCW1 ([facility]) Smoking 03/24/2020 12:00:00 AM EST Former Smoker completed Former Smoker eCW1 ([facility]) Smoking 03/24/2020 12:00:00 AM EST Former Smoker completed Former Smoker eCW1 ([facility]) Smoking 03/24/2020 12:00:00 AM EST Former Smoker completed Former Smoker eCW1 ([facility]) Smoking 03/24/2020 12:00:00 AM EST Former Smoker completed Former Smoker eCW1 ([facility]) Vital Signs ID Date Data Source UNK Name Value Range Interpretation Code Description Data Source(s) Body weight 210 [lb_av] 210 [lb_av] eCW1 ([facility]) Body height 64.5 [in_i] 64.5 [in_i] eCW1 ([facility]) Body mass index (BMI) [Ratio] 35.49 kg/m2 35.49 kg/m2 eCW1 ([facility]) Heart rate 78 /min 78 /min eCW1 ([facility]) Respiratory rate 18 /min 18 /min eCW1 ([facility]) Body temperature 97.1 [degF] 97.1 [degF] eCW1 ( [facility]) Systolic blood pressure 136 mm[Hg] 136 mm[Hg] e CW1 ([facility]) Diastolic blood pressure 80 mm[Hg] 80 mm[Hg] eCW1 ([facility]) Diastolic blood pressure 70 mm[Hg] 70 mm[Hg] eCW1 ([facility]) Body weight 199 [lb_av] 199 [lb_av] eCW1 ([facility]) Body height 64.5 [in_i] 64.5 [in_i] eCW1 ([facility]) Body mass index (BMI) [Ratio] 33.63 kg/m2 33.63 kg/m2 eCW1 ([facility]) Heart rate 88 /min 88 /min eCW1 ([facility]) Respiratory rate 18 /min 18 /min eCW1 ([facility]) Body temperature 96 [degF] 96 [degF] eCW1 ([facility]) Systolic blood pressure 122 mm[Hg] 122 mm[Hg] e CW1 ([facility]) Body temperature 97.2 [degF] 97.2 [degF] eCW1 ( [facility]) Body weight 196 [lb_av] 196 [lb_av] eCW1 ([facility]) Body height 64.5 [in_i] 64.5 [in_i] eCW1 ([facility]) Body mass index (BMI) [Ratio] 33.12 kg/m2 33.12 kg/m2 eCW1 ([facility]) Heart rate 75 /min 75 /min eCW1 ([facility]) Respiratory rate 18 /min 18 /min eCW1 ([facility]) Diastolic blood pressure 80 mm[Hg] 80 mm[Hg] eCW1 ([facility]) Systolic blood pressure 130 mm[Hg] 130 mm[Hg] e CW1 ([facility]) Systolic blood pressure 104 mm[Hg] 104 mm[Hg] [facility] Heart rate 65 /min 65 /min [facility] Respiratory rate 12 /min 12 /min [facility] Diastolic blood pressure 58 mm[Hg] 58 mm[Hg] [facility] Body weight 88.905 kg 88.905 kg [facility] Body height 162.6 cm 162.6 cm [facility] Oxygen saturation in Arterial blood by Pulse oximetry 97 % 97 % [facility] Body mass index (BMI) [Ratio] 33.64 kg/m2 33.64 kg/m2 [facility] Systolic blood pressure 135 mm[Hg] 135 mm[Hg] M EDENT ([facility], ) Diastolic blood pressure 77 mm[Hg] 77 mm[Hg] [facility] Body height 62.50 [in_i] 62.50 [in_i] [facility] ([facility]) 5'2.50" Body weight 185.00 [lb_av] 185.00 [lb_av] MEDEN T ([facility]) Body mass index (BMI) [Ratio] 33.3 kg/m2 33.3 k g/m2 [facility] ([facility]) [place] body weight 110 [lb_av] 110 [lb_av] MEDEN T ([facility]) Body weight 83.916 kg 83.916 kg [facility] ([facility]) Body surface area Derived from formula 1.86 m2 1.86 m2 [facility]) Body weight 182 [lb_av] 182 [lb_av] eCW1 ([facility]) Body height 64.5 [in_i] 64.5 [in_i] eCW1 ([facility]) Body mass index (BMI) [Ratio] 30.75 kg/m2 30.75 kg/m2 [facility] ([facility]) Heart rate 69 /min 69 /min eCW1 ([facility]) Respiratory rate 18 /min 18 /min eCW1 ([facility]) Body temperature 96.9 [degF] 96.9 [degF] eCW1 ( [facility]) Systolic blood pressure 128 mm[Hg] 128 mm[Hg] e CW1 ([facility]) Diastolic blood pressure 82 mm[Hg] 82 mm[Hg] eCW1 ([facility]) Systolic blood pressure 140 mm[Hg] 140 mm[Hg] [facility] Diastolic blood pressure 68 mm[Hg] 68 mm[Hg] [facility] Heart rate 78 /min 78 /min [facility] Body height 165.1 cm 165.1 cm [facility] Body weight 82.555 kg 82.555 kg [facility] Body mass index (BMI) [Ratio] 30.29 kg/m2 30.29 kg/m2 [facility] Oxygen saturation in Arterial blood by Pulse oximetry 97 % 97 % [facility] Body weight 184 [lb_av] 184 [lb_av] W1 ([facility]) Body height 64.5 [in_i] 64.5 [in_i] W1 ([facility]) Body mass index (BMI) [Ratio] 31.09 kg/m2 31.09 kg/m2 W1 ([facility]) Heart rate 78 /min 78 /min eCW1 ([facility]) Respiratory rate 18 /min 18 /min eCW1 ([facility]) Body temperature 97.9 [degF] 97.9 [degF] eCW1 ( [facility]) Systolic blood pressure 130 mm[Hg] 130 mm[Hg] e CW1 ([facility]) Diastolic blood pressure 82 mm[Hg] 82 mm[Hg] eCW1 ([facility]) Diastolic blood pressure 80 mm[Hg] 80 mm[Hg] [facility] Body weight 82.101 kg 82.101 kg [facility] Heart rate 73 /min 73 /min [facility] Systolic blood pressure 118 mm[Hg] 118 mm[Hg] [facility] Body mass index (BMI) [Ratio] 30.12 kg/m2 30.12 kg/m2 [facility] Oxygen saturation in Arterial blood by Pulse oximetry 97 % 97 % [facility] Body weight 178 [lb_av] 178 [lb_av] eCW1 ([facility]) Body height 64.5 [in_i] 64.5 [in_i] eCW1 ([facility]) Body mass index (BMI) [Ratio] 30.08 kg/m2 30.08 kg/m2 W1 ([facility]) Heart rate 86 /min 86 /min eCW1 ([facility]) Respiratory rate 18 /min 18 /min eCW1 ([facility]) Body temperature 97.6 [degF] 97.6 [degF] eCW1 ( [facility]) Systolic blood pressure 100 mm[Hg] 100 mm[Hg] e CW1 ([facility]) Diastolic blood pressure 70 mm[Hg] 70 mm[Hg] eCW1 ([facility]) Body weight 182 [lb_av] 182 [lb_av] eCW1 ([facility]) Body temperature 96.9 [degF] 96.9 [degF] eCW1 ( [facility]) Diastolic blood pressure 60 mm[Hg] 60 mm[Hg] eCW1 ([facility]) Body height 64.5 [in_i] 64.5 [in_i] eCW1 ([facility]) Body mass index (BMI) [Ratio] 30.75 kg/m2 30.75 kg/m2 eCW1 ([facility]) Heart rate 73 /min 73 /min eCW1 ([facility]) Respiratory rate 18 /min 18 /min eCW1 ([facility]) Systolic blood pressure 100 mm[Hg] 100 mm[Hg] e CW1 ([facility]) Systolic blood pressure 130 mm[Hg] 130 mm[Hg] [facility] Diastolic blood pressure 90 mm[Hg] 90 mm[Hg] [facility] Body height 165.1 cm 165.1 cm [facility] Body weight 81.647 kg 81.647 kg [facility] Body mass index (BMI) [Ratio] 29.95 kg/m2 29.95 kg/m2 [facility] Oxygen saturation in Arterial blood by Pulse oximetry 96 % 96 % [facility] Body weight 190 [lb_av] 190 [lb_av] eCW1 ([facility]) Body height 64.5 [in_i] 64.5 [in_i] W1 ([facility]) Body mass index (BMI) [Ratio] 32.11 kg/m2 32.11 kg/m2 eCW1 ([facility]) Heart rate 97 /min 97 /min eCW1 ([facility]) Respiratory rate 18 /min 18 /min eCW1 ([facility]) Body temperature 97.2 [degF] 97.2 [degF] eCW1 ( [facility]) Systolic blood pressure 150 mm[Hg] 150 mm[Hg] e CW1 ([facility]) Diastolic blood pressure 84 mm[Hg] 84 mm[Hg] eCW1 ([facility]) ID Date Data Source [id number] 03/20/2020 04:26:05 PM EST [facility] Name Value Range Interpretation Code Description Data Source(s) WEIGHT RECORDED 188.01 pounds 188.01 pounds [facility] Height 64 Inches 064 Inches [facility] WEIGHT RECORDED 188.01 pounds 188.01 pounds [facility] Height 64 Inches 064 Inches [facility] Patient Treatment Plan of Care Planned Activity Planned Date Details Description Data Source (s) pregabalin 25 MG Oral Capsule 12/23/2020 12:00:00 AM EDT eCW1 ([facility]) gabapentin 100 MG Oral Capsule 12/09/2020 12:00:00 AM EDT eCW1 ([facility]) gabapentin 100 MG Oral Capsule 12/09/2020 12:00:00 AM EDT eCW1 ([facility]) duloxetine 30 MG Delayed Release Oral Capsule 11/30/2020 12:00:00 A M EDT eCW1 ([facility]) atorvastatin 10 MG Oral Tablet 07/21/2020 12:00:00 AM EDT [facility] torsemide 20 MG Oral Tablet 05/28/2020 12:00:00 AM EDT [facility] Azelastine HCl 0.1 % 05/15/2020 12:00:00 AM EST eCW1 ([facility]) Azelastine HCl 0.1 % 05/15/2020 12:00:00 AM EST eCW1 ([facility]) Azelastine HCl 0.1 % 05/15/2020 12:00:00 AM EST eCW1 ([facility]) Azelastine HCl 0.1 % 05/15/2020 12:00:00 AM EST eCW1 ([facility]) Azelastine HCl 0.1 % 05/15/2020 12:00:00 AM EST eCW1 ([facility]) Azelastine HCl 0.1 % 05/15/2020 12:00:00 AM EST eCW1 ([facility]) Azelastine HCl 0.1 % 05/15/2020 12:00:00 AM EST eCW1 ([facility]) Sodium Chloride 0.111 MEQ/ML Nasal Solution 05/06/2020 12:00:00 AM EST [facility] Metoprolol Tartrate 25 MG Oral Tablet 05/06/2020 12:00:00 AM EST [facility] Fludrocortisone 0.1 MG Oral Tablet 05/01/2020 12:00:00 AM EST [facility] atorvastatin 10 MG Oral Tablet 04/13/2020 12:00:00 AM EST [facility] Blood Pressure Cuff - 04/09/2020 12:00:00 AM EST eCW1 ([facility]) diphenhydrAMINE-Zinc Acetate 1-0.1 % 04/09/2020 12:00:00 AM EST eCW1 ([facility]) diphenhydrAMINE-Zinc Acetate 1-0.1 % 04/09/2020 12:00:00 AM EST eCW1 ([facility]) Blood Pressure Cuff - 04/09/2020 12:00:00 AM EST eCW1 ([facility]) diphenhydrAMINE-Zinc Acetate 1-0.1 % 04/09/2020 12:00:00 AM EST eCW1 ([facility]) Blood Pressure Cuff - 04/09/2020 12:00:00 AM EST eCW1 ([facility]) Potassium Chloride 20 MEQ Extended Release Oral Tablet 04/09/2020 12:00:00 AM EST [facility] Blood Pressure Cuff - 04/09/2020 12:00:00 AM EST eCW1 ([facility]) Diphenhydramine-Zinc Acetate 1-0.1 % 04/09/2020 12:00:00 AM EST eCW1 ([facility]) Blood Pressure Cuff - 04/09/2020 12:00:00 AM EST eCW1 ([facility]) Diphenhydramine-Zinc Acetate 1-0.1 % 04/09/2020 12:00:00 AM EST eCW1 ([facility]) Blood Pressure Cuff - 04/09/2020 12:00:00 AM EST eCW1 ([facility]) Diphenhydramine-Zinc Acetate 1-0.1 % 04/09/2020 12:00:00 AM EST eCW1 ([facility]) Blood Pressure Cuff - 04/09/2020 12:00:00 AM EST eCW1 ([facility]) Diphenhydramine-Zinc Acetate 1-0.1 % 04/09/2020 12:00:00 AM EST eCW1 ([facility]) Metoprolol Tartrate 25 MG Oral Tablet 03/27/2020 12:00:00 AM EST eCW1 ([facility]) Metoprolol Tartrate 25 MG Oral Tablet 03/27/2020 12:00:00 AM EST eCW1 ([facility]) Metoprolol Tartrate 25 MG Oral Tablet 03/27/2020 12:00:00 AM EST eCW1 ([facility]) Metoprolol Tartrate 25 MG Oral Tablet 03/27/2020 12:00:00 AM EST eCW1 ([facility]) Hydralazine Hydrochloride 10 MG Oral Tablet 03/27/2020 12:00:00 AM EST eCW1 ([facility]) Metoprolol Tartrate 25 MG Oral Tablet 03/27/2020 12:00:00 AM EST eCW1 ([facility]) Potassium Chloride 20 MEQ Extended Release Oral Tablet 03/27/2020 12:00:00 AM EST eCW1 ([facility]) Hydralazine Hydrochloride 10 MG Oral Tablet 03/27/2020 12:00:00 AM EST eCW1 ([facility]) Metoprolol Tartrate 25 MG Oral Tablet 03/27/2020 12:00:00 AM EST eCW1 ([facility]) Potassium Chloride 20 MEQ Extended Release Oral Tablet 03/27/2020 12:00:00 AM EST eCW1 ([facility]) Hydralazine Hydrochloride 10 MG Oral Tablet 03/27/2020 12:00:00 AM EST eCW1 ([facility]) Metoprolol Tartrate 25 MG Oral Tablet 03/27/2020 12:00:00 AM EST eCW1 ([facility]) Metoprolol Tartrate 25 MG Oral Tablet 03/27/2020 12:00:00 AM EST eCW1 ([facility]) Potassium Chloride 20 MEQ Extended Release Oral Tablet 03/27/2020 12:00:00 AM EST eCW1 ([facility]) Potassium Chloride 20 MEQ Extended Release Oral Tablet 03/27/2020 12:00:00 AM EST eCW1 ([facility]) Hydralazine Hydrochloride 10 MG Oral Tablet 03/27/2020 12:00:00 AM EST eCW1 ([facility]) Metoprolol Tartrate 25 MG Oral Tablet 03/27/2020 12:00:00 AM EST eCW1 ([facility]) Hydralazine Hydrochloride 10 MG Oral Tablet 03/27/2020 12:00:00 AM EST eCW1 ([facility]) Potassium Chloride 20 MEQ Extended Release Oral Tablet 03/27/2020 12:00:00 AM EST eCW1 ([facility]) Metoprolol Tartrate 25 MG Oral Tablet 03/27/2020 12:00:00 AM EST eCW1 ([facility]) Hydralazine Hydrochloride 10 MG Oral Tablet 03/27/2020 12:00:00 AM EST eCW1 ([facility]) Potassium Chloride 20 MEQ Extended Release Oral Tablet 03/27/2020 12:00:00 AM EST eCW1 ([facility]) Metoprolol Tartrate 25 MG Oral Tablet 03/27/2020 12:00:00 AM EST eCW1 ([facility]) Hydralazine Hydrochloride 10 MG Oral Tablet 03/27/2020 12:00:00 AM EST eCW1 ([facility]) Potassium Chloride 20 MEQ Extended Release Oral Tablet 03/27/2020 12:00:00 AM EST eCW1 ([facility]) Metoprolol Tartrate 25 MG Oral Tablet 03/27/2020 12:00:00 AM EST eCW1 ([facility]) potassium chloride SA (K-DUR,KLOR-CON) 20 MEQ tablet 021 12:00:00 AM EST [facility] Metoprolol Tartrate 25 MG Oral Tablet 03/15/2020 12:00:00 AM EST [facility] pantoprazole 40 MG Delayed Release Oral Tablet 03/15/2020 12:00:00 AM EST [facility] Losartan Potassium 25 MG Oral Tablet 02/20/2020 12:00:00 AM EST [facility] Ondansetron 4 MG Oral Tablet 02/15/2020 12:00:00 AM EST [facility] Morphine Sulfate 15 MG Oral Tablet 01/08/2020 12:00:00 AM EDT [facility] torsemide 100 MG Oral Tablet 09/25/2019 12:00:00 AM EDT [facility] Hydroxyzine Hydrochloride 25 MG Oral Tablet 09/23/2019 12:00:00 AM EDT [facility] atorvastatin 80 MG Oral Tablet 09/20/2019 12:00:00 AM EDT [facility] Dexamethasone 4 MG Oral Tablet 08/17/2019 12:00:00 AM EDT [facility] pomalidomide 2 MG Oral Capsule 08/01/2019 12:00:00 AM EDT [facility] tramadol hydrochloride 50 MG Oral Tablet 07/15/2019 12:00:00 AM EDT [facility] Acyclovir 400 MG Oral Tablet 07/13/2019 12:00:00 AM EDT [facility] Potassium Chloride 10 MEQ Extended Release Oral Capsul e 11/18/2015 12:00:00 AM EDT [facility] Losartan Potassium 100 MG Oral Tablet 11/18/2015 12:00:00 AM EDT [facility] Furosemide 40 MG Oral Tablet 10/22/2008 12:00:00 AM EDT [facility] torsemide 20 MG Oral Tablet [facility] Aspirin 81 MG Delayed Release Oral Tablet [facility] Hydralazine Hydrochloride 10 MG Oral Tablet [facility] Loperamide Hydrochloride 2 MG Oral Capsule [facility] Docusate Sodium 100 MG Oral Capsule [facility] docosahexaenoic acid 120 MG / Eicosapentaenoic Acid 180 MG Oral Cap litzy [facility] Colchicine 0.6 MG Oral Tablet [facility]
[2021-02-22] MEDS ORDERED: NS 1,000 ML IV ONE (15:15)
[2021-02-22] MEDS ORDERED: MORPHINE 4 MG/ML 1ML VIAL/SYRINGE (J2270) IV ONE (15:20)
--- OUTSIDE RECORDS SUMMARY | 2021-02-22 16:19 | CCD ---
Author Author [facility] Organization [facility] Address Unknown Phone Unavailable Support Name Relationship Address Phone Giuliano MALLOY Next Of Kin [address] [place] [id number] WILLY HAMMOND Next Of Kin Unknown REYNALDO CARTER Next Of Kin [address] [place] [address] GUILLAUME HUSSEIN Next Of Kin [address] [place] [address] LORENA LLANES Next Of Kin Unknown Unavailable JUDY HAMMOND Next Of Kin [address] [facility] [address] [place], [place] [id number] JUDY CARTER Next Of Kin [address] [place] [address] PENELOPE HUSSEIN Next Of Kin NA Unknown DISABLED Next Of Kin Unknown Unavailable [place] [address] Unavailable DISABLE Next Of Kin Unknown Unavailable JUSTYN [place] [address] UE Next Of Kin Unknown Unavailable DISABILITY Next Of Kin X X, X X MARY MALLOY Next Of Kin [address] [place] [address] [place] [address] Unavailable Reynaldo Carter ECON 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 Name Role Phone Danika Falanga, A Kavya DIRECTOR OF CORPORATE REAL ESTATE Unavailable Unavailable [place] Falanga, A Kavya DIRECTOR OF CORPORATE REAL ESTATE Unavailable Unavailable Danika Falanga, A Kavya DIRECTOR OF CORPORATE REAL ESTATE Unavailable Unavailable [place] Falanga, A Kavya DIRECTOR OF CORPORATE REAL ESTATE Unavailable Unavailable Danika Falanga, A Kavya DIRECTOR OF CORPORATE REAL ESTATE Unavailable Unavailable [place] Falanga, A Kavya DIRECTOR OF CORPORATE REAL ESTATE Unavailable Unavailable [place] Falanga, A Kavya DIRECTOR OF CORPORATE REAL ESTATE Unavailable Unavailable [place] Falanga, A Kavya DIRECTOR OF CORPORATE REAL ESTATE Unavailable Unavailable [place] Falanga, A Kavya DIRECTOR OF CORPORATE REAL ESTATE Unavailable Unavailable Dankia Falanga, A Kavya DIRECTOR OF CORPORATE REAL ESTATE Unavailable Unavailable Danika Falanga, A Kavya DIRECTOR OF CORPORATE REAL ESTATE Unavailable Unavailable [place] Falanga, A Kavya DIRECTOR OF CORPORATE REAL ESTATE Unavailable Unavailable [place] Falanga, A Kavya DIRECTOR OF CORPORATE REAL ESTATE Unavailable Unavailable Danika Falanga, A Kavya DIRECTOR OF CORPORATE REAL ESTATE Unavailable Unavailable Danika Falanga, A Kavya DIRECTOR OF CORPORATE REAL ESTATE Unavailable Unavailable Danika Falanga, A Kavya DIRECTOR OF CORPORATE REAL ESTATE Unavailable Unavailable Danika Falanga, A Kavya DIRECTOR OF CORPORATE REAL ESTATE Unavailable Unavailable [place] Falanga, A Kavya DIRECTOR OF CORPORATE REAL ESTATE Unavailable Unavailable [place] Falanga, A Kavya DIRECTOR OF CORPORATE REAL ESTATE Unavailable Unavailable Danika Falanga, A Akvya DIRECTOR OF CORPORATE REAL ESTATE Unavailable Unavailable Danika Falanga, A Kavya DIRECTOR OF CORPORATE REAL ESTATE Unavailable Unavailable [place] Falanga, A Kavya DIRECTOR OF CORPORATE REAL ESTATE Unavailable Unavailable [place] Falanga, A Kavya DIRECTOR OF CORPORATE REAL ESTATE Unavailable Unavailable Danika Falanga, A Kavya DIRECTOR OF CORPORATE REAL ESTATE Unavailable Unavailable Danika Falanga, A Kavya DIRECTOR OF CORPORATE REAL ESTATE Unavailable Unavailable Danika Falanga, A Kavya DIRECTOR OF CORPORATE REAL ESTATE Unavailable Unavailable [place] Falanga, A Kavya DIRECTOR OF CORPORATE REAL ESTATE Unavailable Unavailable Danika Falanga, A Kavya DIRECTOR OF CORPORATE REAL ESTATE Unavailable Unavailable Danika Falanga, A Kavya DIRECTOR OF CORPORATE REAL ESTATE Unavailable Unavailable Danika Falanga, A Kavya DIRECTOR OF CORPORATE REAL ESTATE Unavailable Unavailable Danika Falanga, A Kavya DIRECTOR OF CORPORATE REAL ESTATE Unavailable [facility]available [facility] [place] Unavailable Unavailable PAUL HOWARD MD Unavailable Unavailable [...] Unavailable Galindo, V NASREEN PA-C Unavailable Unavailable Sagola, V NASREEN PA-C Unavailable Unavailable Sagola, V NASREEN PA-C Unavailable Unavailable Sagola, V NASREEN PA-C Unavailable Unavailable Sagola, V NASREEN PA-C Unavailable Unavailable Sagola, V NASREEN PA-C Unavailable Unavailable Sagola, V NASREEN PA-C Unavailable Unavailable [place], V NASREEN PA-C Unavailable Unavailable Galindo, V NASREEN PA-C Unavailable Unavailable Sagola, V NASREEN PA-C Unavailable Unavailable Sagola, V NASREEN PA-C Unavailable Unavailable Sagola, V NASREEN PA-C Unavailable Unavailable Daphne MONTERO [...] L NATASHA MD Unavailable Unavailable KYLAH, L NATSAHA MD Unavailable Unavailable KYLAH, L NATASHA MD [...] is protected by Article 27-F of the [facility] Public Health law. If you continue you may have access to information: Regarding HIV / AIDS; Provided by facilities licensed or operated by the [facility] Office of Mental Health; or Provided by the [facility] Office for People With Developmental Disabilities. If such information is present, then the following [facility] mandated warning applies: This information has [...] law may result in a fine or residential sentence or both. A general authorization for the release of medical or other information is NOT sufficient authorization for further disc losure. Allergies and Adverse Reactions Type Description Substance Reaction Status Data Source(s ) Propensity to adverse reactions SELMA HAHN [facility] Propensity to adverse reactions TYLENOL TYLENOL [facility] Drug allergy GABAPENTIN GABAPENTIN [facility] Drug allergy METFORMIN METFORMIN [facility] Drug allergy OXYCODONE OXYCODONE [facility] Drug allergy CARISOPRODOL CARISOPRODOL [facility] Drug allergy DOXYCYCLINE DOXYCYCLINE [facility] Drug allergy FLUOCINOLONE FLUOCINOLONE [facility] Drug allergy PREDNISONE PREDNISONE [facility] Drug allergy AMITRIPTYLINE [facility] Drug allergy SPIRONOLACTONE SPIRONOLACTONE [facility] Drug allergy CODEINE CODEINE [facility] Propensity to adverse reactions QUINOLONES QUINOLONES [facility] Propensity to adverse reactions NSAID NSAID [facility] Family History Family Member Name Family Member Gender Family Member Status Date o f Status Description Data Source(s) Unknown Unknown Problem MEDENT ([facility] ) Encounters Encounter Providers Location Date Indications Data Source(s ) Outpatient [address] [facility] [place] [address] 12/23/2020 12:00:00 AM EDT eCW1 ([facility]) Unknown [address] [facility] [address] 12/15/2020 12:00:00 AM EDT [facility]CW[facility] ([facility]) [place] [address] [facility] [place] [address] 12/08/2020 12:00:00 AM EDT eCW1 ([facility]) Outpatient [address] [facility] [place] [address] 11/30/2020 12:00:00 AM EDT eCW1 ([facility]) Unknown [address] [facility] [place] [address] 11/24/2020 12:00:00 AM EDT eCW1 ([facility]) Outpatient [address] [facility] [place] [address] 09/22/2020 12:00:00 AM EDT eCW1 ([facility]) Unknown [address] [facility] [place] [address] 09/22/2020 12:00:00 AM EDT eCW1 ([facility]) Outpatient Attender: NASREEN BACONGEOFF-SJP.GEOFF 12:52:40 PM EDT - 08/31/2020 01:28:26 PM EDT [facility] Outpatient Attender: PAUL Murphy/Luca/Eduardo/Cole ro 06/16/2020 03:15:00 PM EDT MEDENT ([facility]) Unknown [address] [facility] [place] [address] 06/12/2020 12:00:00 AM EDT eCW1 ([facility]) Outpatient [address] [facility] [place] [address] 06/11/2020 12:00:00 AM EDT eCW1 ([facility]) Outpatient Attender: NASREEN BACONGEOFF-SJP.GEOFF 12:00:00 AM EDT - 05/28/2020 01:56:47 PM EDT [facility] Outpatient [address] [facility] [address] 05/15/2020 12:00:00 AM EST eCW1 ([facility]) Unknown [address] [facility] [address] 05/14/2020 12:00:00 AM EST eCW1 ([facility]) Outpatient Attender: NASREEN BACONGEOFF-SJP.GEOFF 12:00:00 AM EST - 05/06/2020 02:43:14 PM EST [facility] Unknown [address] [facility] [address] 04/28/2020 12:00:00 AM EST eCW1 ([facility]) Unknown [address] [facility] [address] 04/27/2020 12:00:00 AM EST eCW1 ([facility]) Outpatient [address] [facility] [place] [address] 04/24/2020 12:00:00 AM EST eCW1 ([facility]) Unknown [address] [facility] [place] [address] 04/21/2020 12:00:00 AM EST eCW1 ([facility]) Unknown [address] [facility] [address] 04/13/2020 12:00:00 AM EST eCW1 ([facility]) (TCM) Transition of Care Visit [address] [place] [address] 04/09/2020 12:00:00 AM EST eCW1 ([facility]) Unknown [address] [facility] [place] [address] 04/09/2020 12:00:00 AM EST eCW1 ([facility]) Outpatient Attender: NASREEN LAWSON.GEOFF-SJPArmenGEOFF 12:00:00 AM EST - 04/08/2020 03:27:49 PM EST [facility] Unknown [address] [facility] [address] 04/06/2020 12:00:00 AM EST eCW1 ([facility]) Unknown [address] [facility] [place] [address] 04/03/2020 12:00:00 AM EST eCW1 ([facility]) Unknown [address] [facility] [place] [address] 03/30/2020 12:00:00 AM EST eCW1 ([facility]) Unknown [address] [facility] [address] 03/30/2020 12:00:00 AM EST eCW1 ([facility]) Outpatient [address] [facility] [place] [address] 03/24/2020 12:00:00 AM EST eCW1 ([facility]) Outpatient Attender: [facility] 03/08/2020 09:5 0:00 PM EST [facility] Inpatient Attender: Kavya hawkins FNPAttender: NATASHA MONTERO MDConsultant: STAFF NON 03/06/2020 10:10:00 AM EST - 03/12/2020 12:50:00 PM EST [facility] Patient discharged. Outpatient Attender: Kavya Danika Mike DIRECTOR OF CORPORATE REAL ESTATE 03/04/2020 12:24:00 PM EST - 03/06/2020 10:10:00 AM EST [facility] Unknown [address] [facility] [address] 03/02/2020 12:00:00 AM EST eCW1 ([facility]) Immunizations Vaccine Date Status Description Data Source(s) COVID-19 dose #1 given elsewhere Unspecified 05/29/2020 02:3 9:00 PM EDT completed eCW1 ([facility]) COVID-19 dose #1 given elsewhere Unspecified 05/29/2020 02:3 9:00 PM EDT completed eCW1 ([facility]) COVID-19 dose #1 given elsewhere Unspecified 05/29/2020 02:3 9:00 PM EDT completed eCW1 ([facility]) COVID-19 dose #1 given elsewhere Unspecified 05/29/2020 02:3 9:00 PM EDT completed eCW1 ([facility]) COVID-19 dose #1 given elsewhere Unspecified 05/29/2020 02:3 9:00 PM EDT completed eCW1 ([facility]) COVID-19 dose #1 given elsewhere Unspecified 05/29/2020 02:3 9:00 PM EDT completed eCW1 ([facility]) COVID-19 dose #1 given elsewhere Unspecified 05/29/2020 02:3 9:00 PM EDT completed eCW1 ([facility]) COVID-19 VACCINE Faraz 05/29/2020 12:00:00 AM EDT completed [facility] Vaccine Series Complete: YESThis Data wa s Submitted to [facility] Via [employer]. Medications Medication Brand Name Start Date Product [...] {capsule} active P regabalin 25 MG eCW1 ([facility]) 5-325 mg 12/23/2020 12:00:00 AM EDT tablet [...] EDT active Gabapent in 100 MG eCW1 ([facility]) gabapentin 100 MG Oral Capsule Gabapentin 100 MG Gabapentin 100 MG 12/09/2020 12:00:00 AM EDT suspended Gabap entin 100 MG eCW1 ([facility]) 100 mg 12/09/2020 12:00:00 AM EDT capsule [...] EDT active Gabapent in 100 MG eCW1 ([facility]) pantoprazole 40 MG Delayed Release Oral Tablet [...] a ctive DULoxetine HCl 30 MG eCW1 ([facility]) 30 mg 11/30/2020 12:00:00 AM EDT capsule,delayed [...] TWICE A DAY WITH FOOD SOLD: 10/20/2020 [facility] 5-325 mg 10/01/2020 12:00:00 AM EDT tablet 15 TAKE 1 TABLET BY MOUTH 3 TIMES A DAY NEEDED FOR PAIN MAX DAILY DOSE = 3 TABLETS TAKE 1 TABLET BY MOUTH 3 TIMES A DAY NEEDED FOR PAIN MAX DAILY DOSE = 3 TABLETS SOLD: 10/01/2020 [facility] Acyclovir 400 MG Oral Tablet ACYCLOVIR 09/04/2020 12:00:00 AM EDT tabl et 60 TAKE ONE TABLET BY MOUTH TWICE A DAY TAKE ONE TABLET BY MOUTH TWICE A DAY SOLD: 12/16/2020 [facility] Acyclovir 400 MG Oral Tablet ACYCLOVIR 09/04/2020 12:00:00 AM EDT tabl et 60 TAKE ONE TABLET BY MOUTH TWICE A DAY TAKE ONE TABLET BY MOUTH TWICE A DAY SOLD: 09/05/2020 [facility] Acyclovir 400 MG Oral Tablet ACYCLOVIR 09/04/2020 12:00:00 AM EDT tabl et 60 TAKE ONE TABLET BY MOUTH TWICE A DAY TAKE ONE TABLET BY MOUTH TWICE A DAY SOLD: 11/16/2020 [facility] Acyclovir 400 MG Oral Tablet ACYCLOVIR 09/04/2020 12:00:00 AM EDT tabl et 60 TAKE ONE TABLET BY MOUTH TWICE A DAY TAKE ONE TABLET BY MOUTH TWICE A DAY SOLD: 10/12/2020 [facility] 10 mg 08/26/2020 12:00:00 AM EDT tablet 30 TAKE ONE TABLET BY MOUTH EVERY 6 HOURS TAKE ONE TABLET BY MOUTH EVERY 6 HOURS SOLD: 09/05/2020 [facility] pantoprazole 40 MG Delayed Release Oral Tablet PANTOPRAZOLE SODIUM 08/18/2020 12:00:00 AM EDT tablet,delayed release (DR/EC) 60 T MATTI ONE TABLET BY MOUTH TWICE A DAY TAKE ONE TABLET BY MOUTH TWICE A DAY SOLD: 10/30/2020 [facility] pantoprazole 40 MG Delayed Release Oral Tablet [...] TAKE ONE TABLET BY MOUTH EVERY DAY [facility] 20 mEq 07/17/2020 12:00:00 AM EDT [...] Kit 06/16/2020 12:00:00 AM EDT active MEDENT ([facility], ) Magnesium Hydroxide 80 MG/ML Oral Suspension Milk Of Magnesi a 06/16/2020 12:00:00 AM EDT ORAL active M EDENT ([facility], ) 20 mEq 06/15/2020 12:00:00 AM EDT [...] tablet (20 mg total) by mouth daily [facility] Azelastine HCl 0.1 % Azelastine HCl 0.1 % 05/15/2020 12:00:00 AM ES T 1.0 {puff_in_each_nostril} active Azelastin e HCl 0.1 % eCW1 ([facility]) 137 mcg (0.1 %) 05/15/2020 12:00:00 AM EST aerosol,spray 30 SPRAY 1 SPRAY IN EACH NOSTRIL EVERY DAY SPRAY 1 SPRAY IN EACH NOSTRIL EVERY DAY SOLD: 05/15/2020 [facility] Azelastine HCl 0.1 % Azelastine HCl 0.1 % 05/15/2020 12:00:00 AM ES T 1.0 {puff_in_each_nostril} active Azelastin e HCl 0.1 % eCW1 ([facility]) Azelastine HCl 0.1 % Azelastine HCl 0.1 % 05/15/2020 12:00:00 AM ES T 1.0 {puff_in_each_nostril} active Azelastin e HCl 0.1 % eCW1 ([facility]) Azelastine HCl 0.1 % Azelastine HCl 0.1 % 05/15/2020 12:00:00 AM ES T 1.0 {puff_in_each_nostril} active Azelastin e HCl 0.1 % eCW1 ([facility]) Azelastine HCl 0.1 % Azelastine HCl 0.1 % 05/15/2020 12:00:00 AM ES T 1.0 {puff_in_each_nostril} active Azelastin e HCl 0.1 % eCW1 ([facility]) Azelastine HCl 0.1 % Azelastine HCl 0.1 % 05/15/2020 12:00:00 AM ES T 1.0 {puff_in_each_nostril} active Azelastin e HCl 0.1 % eCW1 ([facility]) Azelastine HCl 0.1 % Azelastine HCl 0.1 % 05/15/2020 12:00:00 AM ES T 1.0 {puff_in_each_nostril} active Azelastin e HCl 0.1 % eCW1 ([facility]) Azelastine HCl 0.1 % Azelastine HCl 0.1 % 05/15/2020 12:00:00 AM ES T 1.0 {puff_in_each_nostril} active Azelastin e HCl 0.1 % eCW1 ([facility]) Azelastine HCl 0.1 % Azelastine HCl 0.1 % 05/15/2020 12:00:00 AM ES T 1.0 {puff_in_each_nostril} active Azelastin e HCl 0.1 % eCW1 ([facility]) Azelastine HCl 0.1 % Azelastine HCl 0.1 % 05/15/2020 12:00:00 AM ES T 1.0 {puff_in_each_nostril} active Azelastin e HCl 0.1 % eCW1 ([facility]) Azelastine HCl 0.1 % Azelastine HCl 0.1 % 05/15/2020 12:00:00 AM ES T 1.0 {puff_in_each_nostril} active Azelastin e HCl 0.1 % eCW1 ([facility]) 20 mEq 05/08/2020 12:00:00 AM EST tablet extended release 60 TAKE ONE TABLET BY MOUTH TWICE A DAY WITH FOOD TAKE ONE TABLET BY MOUTH TWICE A DAY WITH FOOD SOLD: 05/08/2020 [facility] Sodium Chloride 0.111 MEQ/ML Nasal Solut ion sodium chloride (OCEAN) 0.65 % nasal spray sodium chloride (OCEAN) 0.65 % nasal spray 05/06/2020 12:00:00 A M EST 1 {spray} Nasal active 1 spray into each nostri l as needed for congestion [facility] Metoprolol Tartrate 25 MG Oral Tablet me toprolol tartrate (LOPRESSOR) 25 MG tablet metoprolol tartrate (LOPRESSOR) 25 MG tablet 05/06/2020 12:0 0:00 AM EST 12.5 mg Oral active Take 0.5 tablets (12.5 mg total) by mouth 2 (two) times a day [facility] 0.65 % 05/06/2020 12:00:00 AM EST aerosol,spray 44 SPRAY 1 SPRAY IN EACH NOSTRIL NEEDED FOR CONGESTION SPRAY 1 SPRAY IN EACH NOSTRIL NEEDED FOR CONGESTION SOLD: 05/08/2020 [facility] 0.65 % 05/06/2020 12:00:00 AM EST aerosol,spray 44 SPRAY 1 SPRAY IN EACH NOSTRIL NEEDED FOR CONGESTION SPRAY 1 SPRAY IN EACH NOSTRIL NEEDED FOR CONGESTION SOLD: 06/07/2020 [facility] Fludrocortisone 0.1 MG Oral Tablet fludrocortisone (FL ORINEF) 0.1 MG tablet fludrocortisone (FLORINEF) 0.1 MG tablet 05/01/2020 12:00:00 AM EST Oral aborted Take by mouth daily [facility] 0.1 mg 05/01/2020 12:00:00 AM EST tablet [...] tablet (10 mg total) by mouth daily [facility] Blood Pressure Cuff - Blood Pressure Cuff - 04/09/2020 12:00:00 AM EST active Blood Pressure Cuff - eCW1 ( [facility]) Diphenhydramine-Zinc Acetate 1-0.1 % UNK 04/09/2020 12:00: 00 AM EST 1.0 {application_as_needed} active Diphenhy dramine-Zinc Acetate 1-0.1 % eCW1 ([facility]) Diphenhydramine-Zinc Acetate 1-0.1 % UNK 04/09/2020 12:00: 00 AM EST 1.0 {application_as_needed} active Diphenhy dramine-Zinc Acetate 1-0.1 % eCW1 ([facility]) diphenhydrAMINE-Zinc Acetate 1-0.1 % UNK 04/09/2020 12:00: 00 AM EST 1.0 {application_as_needed} active diphenhy drAMINE-Zinc Acetate 1-0.1 % eCW1 ([facility]) diphenhydrAMINE-Zinc Acetate 1-0.1 % UNK 04/09/2020 12:00: 00 AM EST 1.0 {application_as_needed} active diphenhy drAMINE-Zinc Acetate 1-0.1 % eCW1 ([facility]) Blood Pressure Cuff - Blood Pressure Cuff - 04/09/2020 12:00:00 AM EST active Blood Pressure Cuff - eCW1 ( [facility]) Diphenhydramine-Zinc Acetate 1-0.1 % UNK 04/09/2020 12:00: 00 AM EST 1.0 {application_as_needed} active Diphenhy dramine-Zinc Acetate 1-0.1 % eCW1 ([facility]) Blood Pressure Cuff - Blood Pressure Cuff - 04/09/2020 12:00:00 AM EST active Blood Pressure Cuff - eCW1 ( [facility]) Blood Pressure Cuff - Blood Pressure Cuff - 04/09/2020 12:00:00 AM EST active Blood Pressure Cuff - eCW1 ( [facility]) diphenhydrAMINE-Zinc Acetate 1-0.1 % UNK 04/09/2020 12:00: 00 AM EST 1.0 {application_as_needed} active diphenhy drAMINE-Zinc Acetate 1-0.1 % eCW1 ([facility]) Blood Pressure Cuff - Blood Pressure Cuff - 04/09/2020 12:00:00 AM EST active Blood Pressure Cuff - eCW1 ( [facility]) Blood Pressure Cuff - Blood Pressure Cuff - 04/09/2020 12:00:00 AM EST active Blood Pressure Cuff - eCW1 ( [facility]) Blood Pressure Cuff - Blood Pressure Cuff - 04/09/2020 12:00:00 AM EST active Blood Pressure Cuff - eCW1 ( [facility]) Diphenhydramine-Zinc Acetate 1-0.1 % UNK 04/09/2020 12:00: 00 AM EST 1.0 {application_as_needed} active Diphenhy dramine-Zinc Acetate 1-0.1 % eCW1 ([facility]) Potassium Chloride 20 MEQ Extended Relea se Oral Tablet Potassium Chloride ER 20 MEQ TBCR Potassium Chloride ER 20 MEQ TBCR 04/09/2020 12:00:00 AM EST 2 {tbl} Oral active Take 2 tablets by mo [facility] every morning [facility] Blood Pressure Cuff - Blood Pressure Cuff - 04/09/2020 12:00:00 AM EST active Blood Pressure Cuff - eCW1 ( [facility]) diphenhydrAMINE-Zinc Acetate 1-0.1 % UNK 04/09/2020 12:00: 00 AM EST 1.0 {application_as_needed} active diphenhy drAMINE-Zinc Acetate 1-0.1 % eCW1 ([facility]) Diphenhydramine-Zinc Acetate 1-0.1 % UNK 04/09/2020 12:00: 00 AM EST 1.0 {application_as_needed} active Diphenhy dramine-Zinc Acetate 1-0.1 % eCW1 ([facility]) Blood Pressure Cuff - Blood Pressure Cuff - 04/09/2020 12:00:00 AM EST active Blood Pressure Cuff - eCW1 ( [facility]) diphenhydrAMINE-Zinc Acetate 1-0.1 % UNK 04/09/2020 12:00: 00 AM EST 1.0 {application_as_needed} active diphenhy drAMINE-Zinc Acetate 1-0.1 % eCW1 ([facility]) Blood Pressure Cuff - Blood Pressure Cuff - 04/09/2020 12:00:00 AM EST active Blood Pressure Cuff - eCW1 ( [facility]) Blood Pressure Cuff - Blood Pressure Cuff - 04/09/2020 12:00:00 AM EST active Blood Pressure Cuff - eCW1 ( [facility]) Blood Pressure Cuff - Blood Pressure Cuff - 04/09/2020 12:00:00 AM EST active Blood Pressure Cuff - eCW1 ( [facility]) Diphenhydramine-Zinc Acetate 1-0.1 % UNK 04/09/2020 12:00: 00 AM EST 1.0 {application_as_needed} active Diphenhy dramine-Zinc Acetate 1-0.1 % eCW1 ([facility]) diphenhydrAMINE-Zinc Acetate 1-0.1 % UNK 04/09/2020 12:00: 00 AM EST 1.0 {application_as_needed} active diphenhy drAMINE-Zinc Acetate 1-0.1 % eCW1 ([facility]) Blood Pressure Cuff - Blood Pressure Cuff - 04/09/2020 12:00:00 AM EST active Blood Pressure Cuff - eCW1 ( [facility]) Diphenhydramine-Zinc Acetate 1-0.1 % UNK 04/09/2020 12:00: 00 AM EST 1.0 {application_as_needed} active Diphenhy dramine-Zinc Acetate 1-0.1 % eCW1 ([facility]) Blood Pressure Cuff - Blood Pressure Cuff - 04/09/2020 12:00:00 AM EST active Blood Pressure Cuff - eCW1 ( [facility]) Diphenhydramine-Zinc Acetate 1-0.1 % UNK 04/09/2020 12:00: 00 AM EST 1.0 {application_as_needed} active Diphenhy dramine-Zinc Acetate 1-0.1 % eCW1 ([facility]) Blood Pressure Cuff - Blood Pressure Cuff - 04/09/2020 12:00:00 AM EST active Blood Pressure Cuff - eCW1 ( [facility]) Blood Pressure Cuff - Blood Pressure Cuff - 04/09/2020 12:00:00 AM EST active Blood Pressure Cuff - eCW1 ( [facility]) Blood Pressure Cuff - Blood Pressure Cuff - 04/09/2020 12:00:00 AM EST active Blood Pressure Cuff - eCW1 ( [facility]) Blood Pressure Cuff - Blood Pressure Cuff - 04/09/2020 12:00:00 AM EST active Blood Pressure Cuff - eCW1 ( [facility]) diphenhydrAMINE-Zinc Acetate 1-0.1 % UNK 04/09/2020 12:00: 00 AM EST 1.0 {application_as_needed} active diphenhy drAMINE-Zinc Acetate 1-0.1 % eCW1 ([facility]) Diphenhydramine-Zinc Acetate 1-0.1 % UNK 04/09/2020 12:00: 00 AM EST 1.0 {application_as_needed} active Diphenhy dramine-Zinc Acetate 1-0.1 % eCW1 ([facility]) 20 mEq 04/09/2020 12:00:00 AM EST tablet extended release 60 TAKE ONE TABLET BY MOUTH TWICE A DAY WITH FOOD TAKE ONE TABLET BY MOUTH TWICE A DAY WITH FOOD SOLD: 04/09/2020 [facility] Diphenhydramine-Zinc Acetate 1-0.1 % UNK 04/09/2020 12:00: 00 AM EST 1.0 {application_as_needed} active Diphenhy dramine-Zinc Acetate 1-0.1 % eCW1 ([facility]) Diphenhydramine-Zinc Acetate 1-0.1 % UNK 04/09/2020 12:00: 00 AM EST 1.0 {application_as_needed} active Diphenhy dramine-Zinc Acetate 1-0.1 % eCW1 ([facility]) 20 mg 04/06/2020 12:00:00 AM EST tablet 60 TAKE TWO TABLETS BY MOUTH EVERY DAY TAKE TWO TABLETS BY MOUTH EVERY DAY SOLD: 04/07/2020 [facility] Hydralazine Hydrochloride 10 MG Oral Tablet HydrALAZIN E HCl 10 MG HydrALAZINE HCl 10 MG 03/27/2020 12:00:00 AM EST 2.0 {tablet_with_food} active HydrALAZINE HCl 10 MG eCW1 ([facility]) Potassium Chloride 20 MEQ Extended Relea se Oral Tablet Potassium Chloride ER 20 MEQ Potassium Chloride ER 20 MEQ 03/27/2020 12:00:00 AM EST 1.0 {tablet_with_food} active Potassium Chl oride ER 20 MEQ eCW1 ([facility]) Metoprolol Tartrate 25 MG Oral Tablet Metoprolol Tartrate 25 MG 03/27/2020 12:00:00 AM EST active Metoprol ol Tartrate 25 MG eCW1 ([facility]) Metoprolol Tartrate 25 MG Oral Tablet Metoprolol Tartrate 25 MG 03/27/2020 12:00:00 AM EST 1.0 {tablet_with_food} active Metoprolol Tartrate 25 MG eCW1 ([facility]) Metoprolol Tartrate 25 MG Oral Tablet Metoprolol Tartrate 25 MG 03/27/2020 12:00:00 AM EST 1.0 {tablet_with_food} active Metoprolol Tartrate 25 MG eCW1 ([facility]) Metoprolol Tartrate 25 MG Oral Tablet Metoprolol Tartrate 25 MG 03/27/2020 12:00:00 AM EST active Metoprol ol Tartrate 25 MG eCW1 ([facility]) Metoprolol Tartrate 25 MG Oral Tablet Metoprolol Tartrate 25 MG 03/27/2020 12:00:00 AM EST 1.0 {tablet_with_food} active Metoprolol Tartrate 25 MG eCW1 ([facility]) Hydralazine Hydrochloride 10 MG Oral Tablet HydrALAZIN E HCl 10 MG HydrALAZINE HCl 10 MG 03/27/2020 12:00:00 AM EST 2.0 {tablet_with_food} active HydrALAZINE HCl 10 MG eCW1 ([facility]) Metoprolol Tartrate 25 MG Oral Tablet Metoprolol Tartrate 25 MG 03/27/2020 12:00:00 AM EST 1.0 {tablet_with_food} active Metoprolol Tartrate 25 MG eCW1 ([facility]) Metoprolol Tartrate 25 MG Oral Tablet Metoprolol Tartrate 25 MG 03/27/2020 12:00:00 AM EST 1.0 {tablet_with_food} active Metoprolol Tartrate 25 MG eCW1 ([facility]) Hydralazine Hydrochloride 10 MG Oral Tablet HydrALAZIN E HCl 10 MG HydrALAZINE HCl 10 MG 03/27/2020 12:00:00 AM EST 2.0 {tablet_with_food} active HydrALAZINE HCl 10 MG eCW1 ([facility]) Hydralazine Hydrochloride 10 MG Oral Tablet HydrALAZIN E HCl 10 MG HydrALAZINE HCl 10 MG 03/27/2020 12:00:00 AM EST suspende d HydrALAZINE HCl 10 MG eCW1 ([facility]) Metoprolol Tartrate 25 MG Oral Tablet Metoprolol Tartrate 25 MG 03/27/2020 12:00:00 AM EST active Metoprol ol Tartrate 25 MG eCW1 ([facility]) Metoprolol Tartrate 25 MG Oral Tablet Metoprolol Tartrate 25 MG 03/27/2020 12:00:00 AM EST active Metoprol ol Tartrate 25 MG eCW1 ([facility]) Metoprolol Tartrate 25 MG Oral Tablet Metoprolol Tartrate 25 MG 03/27/2020 12:00:00 AM EST 1.0 {tablet_with_food} active Metoprolol Tartrate 25 MG eCW1 ([facility]) Hydralazine Hydrochloride 10 MG Oral Tablet HydrALAZIN E HCl 10 MG HydrALAZINE HCl 10 MG 03/27/2020 12:00:00 AM EST 2.0 {tablet_with_food} active HydrALAZINE HCl 10 MG eCW1 ([facility]) Metoprolol Tartrate 25 MG Oral Tablet Metoprolol Tartrate 25 MG 03/27/2020 12:00:00 AM EST 1.0 {tablet_with_food} active Metoprolol Tartrate 25 MG eCW1 ([facility]) Hydralazine Hydrochloride 10 MG Oral Tablet HydrALAZIN E HCl 10 MG HydrALAZINE HCl 10 MG 03/27/2020 12:00:00 AM EST active HydrALAZINE HCl 10 MG eCW1 ([facility]) Hydralazine Hydrochloride 10 MG Oral Tablet HydrALAZIN E HCl 10 MG HydrALAZINE HCl 10 MG 03/27/2020 12:00:00 AM EST 2.0 {tablet_with_food} active HydrALAZINE HCl 10 MG eCW1 ([facility]) Hydralazine Hydrochloride 10 MG Oral Tablet HydrALAZIN E HCl 10 MG HydrALAZINE HCl 10 MG 03/27/2020 12:00:00 AM EST suspende d HydrALAZINE HCl 10 MG eCW1 ([facility]) Potassium Chloride 20 MEQ Extended Relea se Oral Tablet Potassium Chloride ER 20 MEQ Potassium Chloride ER 20 MEQ 03/27/2020 12:00:00 AM EST 1.0 {tablet_with_food} active Potassium Chl oride ER 20 MEQ eCW1 ([facility]) Metoprolol Tartrate 25 MG Oral Tablet Metoprolol Tartrate 25 MG 03/27/2020 12:00:00 AM EST active Metoprol ol Tartrate 25 MG eCW1 ([facility]) Metoprolol Tartrate 25 MG Oral Tablet Metoprolol Tartrate 25 MG 03/27/2020 12:00:00 AM EST active Metoprol ol Tartrate 25 MG eCW1 ([facility]) Potassium Chloride 20 MEQ Extended Relea se Oral Tablet Potassium Chloride ER 20 MEQ Potassium Chloride ER 20 MEQ 03/27/2020 12:00:00 AM EST 1.0 {tablet_with_food} active Potassium Chl oride ER 20 MEQ eCW1 ([facility]) Hydralazine Hydrochloride 10 MG Oral Tablet HydrALAZIN E HCl 10 MG HydrALAZINE HCl 10 MG 03/27/2020 12:00:00 AM EST 2.0 {tablet_with_food} active HydrALAZINE HCl 10 MG eCW1 ([facility]) Metoprolol Tartrate 25 MG Oral Tablet Metoprolol Tartrate 25 MG 03/27/2020 12:00:00 AM EST active Metoprol ol Tartrate 25 MG eCW1 ([facility]) Potassium Chloride 20 MEQ Extended Relea se Oral Tablet Potassium Chloride ER 20 MEQ Potassium Chloride ER 20 MEQ 03/27/2020 12:00:00 AM EST 1.0 {tablet_with_food} active Potassium Chl oride ER 20 MEQ eCW1 ([facility]) Metoprolol Tartrate 25 MG Oral Tablet Metoprolol Tartrate 25 MG 03/27/2020 12:00:00 AM EST 1.0 {tablet_with_food} active Metoprolol Tartrate 25 MG eCW1 ([facility]) Metoprolol Tartrate 25 MG Oral Tablet Metoprolol Tartrate 25 MG 03/27/2020 12:00:00 AM EST 1.0 {tablet_with_food} active Metoprolol Tartrate 25 MG eCW1 ([facility]) Potassium Chloride 20 MEQ Extended Relea se Oral Tablet Potassium Chloride ER 20 MEQ Potassium Chloride ER 20 MEQ 03/27/2020 12:00:00 AM EST 1.0 {tablet_with_food} active Potassium Chl oride ER 20 MEQ eCW1 ([facility]) Metoprolol Tartrate 25 MG Oral Tablet Metoprolol Tartrate 25 MG 03/27/2020 12:00:00 AM EST 1.0 {tablet_with_food} active Metoprolol Tartrate 25 MG eCW1 ([facility]) Potassium Chloride 20 MEQ Extended Relea se Oral Tablet Potassium Chloride ER 20 MEQ Potassium Chloride ER 20 MEQ 03/27/2020 12:00:00 AM EST 1.0 {tablet_with_food} active Potassium Chl oride ER 20 MEQ eCW1 ([facility]) Potassium Chloride 20 MEQ Extended Relea se Oral Tablet Potassium Chloride ER 20 MEQ Potassium Chloride ER 20 MEQ 03/27/2020 12:00:00 AM EST 1.0 {tablet_with_food} active Potassium Chl oride ER 20 MEQ eCW1 ([facility]) Hydralazine Hydrochloride 10 MG Oral Tablet HydrALAZIN E HCl 10 MG HydrALAZINE HCl 10 MG 03/27/2020 12:00:00 AM EST active HydrALAZINE HCl 10 MG eCW1 ([facility]) Hydralazine Hydrochloride 10 MG Oral Tablet HydrALAZIN E HCl 10 MG HydrALAZINE HCl 10 MG 03/27/2020 12:00:00 AM EST active HydrALAZINE HCl 10 MG eCW1 ([facility]) Potassium Chloride 20 MEQ Extended Relea se Oral Tablet Potassium Chloride ER 20 MEQ Potassium Chloride ER 20 MEQ 03/27/2020 12:00:00 AM EST 1.0 {tablet_with_food} active Potassium Chl oride ER 20 MEQ eCW1 ([facility]) Potassium Chloride 20 MEQ Extended Relea se Oral Tablet Potassium Chloride ER 20 MEQ Potassium Chloride ER 20 MEQ 03/27/2020 12:00:00 AM EST 1.0 {tablet_with_food} active Potassium Chl oride ER 20 MEQ eCW1 ([facility]) Metoprolol Tartrate 25 MG Oral Tablet Metoprolol Tartrate 25 MG 03/27/2020 12:00:00 AM EST active Metoprol ol Tartrate 25 MG eCW1 ([facility]) Metoprolol Tartrate 25 MG Oral Tablet Metoprolol Tartrate 25 MG 03/27/2020 12:00:00 AM EST active Metoprol ol Tartrate 25 MG eCW1 ([facility]) Hydralazine Hydrochloride 10 MG Oral Tablet HydrALAZIN E HCl 10 MG HydrALAZINE HCl 10 MG 03/27/2020 12:00:00 AM EST 2.0 {tablet_with_food} active HydrALAZINE HCl 10 MG eCW1 ([facility]) Hydralazine Hydrochloride 10 MG Oral Tablet HydrALAZIN E HCl 10 MG HydrALAZINE HCl 10 MG 03/27/2020 12:00:00 AM EST 2.0 {tablet_with_food} active HydrALAZINE HCl 10 MG eCW1 ([facility]) Metoprolol Tartrate 25 MG Oral Tablet Metoprolol Tartrate 25 MG 03/27/2020 12:00:00 AM EST active Metoprol ol Tartrate 25 MG eCW1 ([facility]) Metoprolol Tartrate 25 MG Oral Tablet Metoprolol Tartrate 25 MG 03/27/2020 12:00:00 AM EST active Metoprol ol Tartrate 25 MG eCW1 ([facility]) Potassium Chloride 20 MEQ Extended Relea se Oral Tablet Potassium Chloride ER 20 MEQ Potassium Chloride ER 20 MEQ 03/27/2020 12:00:00 AM EST 1.0 {tablet_with_food} active Potassium Chl oride ER 20 MEQ eCW1 ([facility]) Potassium Chloride 20 MEQ Extended Relea se Oral Tablet Potassium Chloride ER 20 MEQ Potassium Chloride ER 20 MEQ 03/27/2020 12:00:00 AM EST 1.0 {tablet_with_food} active Potassium Chl oride ER 20 MEQ eCW1 ([facility]) Metoprolol Tartrate 25 MG Oral Tablet Metoprolol Tartrate 25 MG 03/27/2020 12:00:00 AM EST 1.0 {tablet_with_food} active Metoprolol Tartrate 25 MG eCW1 ([facility]) potassium chloride SA (K-DUR,KLOR-CON) 20 MEQ tablet [id number] 03/26/2020 12:00:00 AM EST 20 meq Oral aborted Take 20 mEq by mouth [facility] 20 mEq 03/26/2020 12:00:00 AM EST [...] by mouth 2 (two) times a day [facility] Metoprolol Tartrate 25 MG Oral Tablet me toprolol tartrate (LOPRESSOR) 25 MG tablet metoprolol tartrate (LOPRESSOR) 25 MG tablet 03/15/2020 12:0 0:00 AM EST aborted TAKE ONE TABLET BY MOUTH TWICE A DAY FOR BLOOD PRESSURE [facility] 25 mg 03/15/2020 12:00:00 AM EST [...] EST 100 mg active 100 mg daily [facility] Ondansetron 4 MG Oral Tablet ondansetron (ZOFRAN) 4 MG tablet ondansetron (ZOFRAN) 4 MG tablet 02/15/2020 12:00:00 AM EST 1 {tbl} active 1 tablet as needed [facility] Morphine Sulfate 15 MG Oral Tablet morphine (MSIR) 15 MG tablet morphine (MSIR) 15 MG tablet 01/08/2020 12:00:00 AM EDT activ e TAKE 1 TABLET BY MOUTH 3 TIMES A DAY NEEDED FOR PAIN MAX DAILY DOSE 3 TABLETS [facility] 15 mg 01/08/2020 12:00:00 AM EDT [...] tablet (100 mg total) by mouth daily [facility] Acyclovir 400 MG Oral Tablet ACYCLOVIR [...] aborted Take 25 mg by mouth nightly [facility] atorvastatin 80 MG Oral Tablet atorvastatin (LIPITOR) 80 MG tablet atorvastatin (LIPITOR) 80 MG tablet 09/20/2019 12:00:00 AM EDT 80 mg Oral aborted Take 80 mg by mouth daily [facility] Dexamethasone 4 MG Oral Tablet dexamethasone (DECADRON ) 4 MG tablet dexamethasone (DECADRON) 4 MG tablet 08/17/2019 12:00:00 AM EDT aborted [facility] 4 mg 08/17/2019 12:00:00 AM EDT tablet 40 TAKE 10 TABLETS [40MG] BY MOUTH ON MONDAYS TAKE 10 TABLETS [40MG] BY MOUTH ON MONDAYS SOLD: 01/01/2020 [facility] pantoprazole 40 MG Delayed Release Oral [...] CAPS 08/01/2019 12:00:00 AM EDT ab orted [facility] tramadol hydrochloride 50 MG Oral Tablet traMADol (ULT TIFF) 50 MG tablet traMADol (ULTRAM) 50 MG tablet 07/15/2019 12:00:00 AM EDT aborted TAKE 1 TAB.BY MOUTH EVERY 6HRS NEEDED FOR PAIN MAX 4TABS/DAY [facility] Acyclovir 400 MG Oral Tablet acyclovir (ZOVIRAX) 400 M G tablet acyclovir (ZOVIRAX) 400 MG tablet 07/13/2019 12:00:00 AM EDT 400 mg Oral aborted Take 400 mg by mouth 2 (two) times a day [facility] Potassium Chloride 10 MEQ Extended Relea se Oral Capsule potassium chloride (MICRO-K) 10 MEQ CR capsule potassium chloride (MICRO-K) 10 MEQ CR capsule 11/18/2015 12:00:00 AM EDT 10 meq Oral aborted Take 10 mEq by mouth 2 (two) times a day [facility] Losartan Potassium 100 MG Oral Tablet losartan (COZAAR ) 100 MG tablet losartan (COZAAR) 100 MG tablet 11/18/2015 12:00:00 AM EDT 100 mg Oral aborted Take 100 mg by mouth daily [facility] Furosemide 40 MG Oral Tablet furosemide (LASIX) 40 MG tablet furosemide (LASIX) 40 MG tablet 10/22/2008 12:00:00 AM EDT Oral aborted Take by mouth [facility] torsemide 20 MG Oral Tablet torsemide (DEMADEX) 20 MG tablet torsemide (DEMADEX) 20 MG tablet 20 mg Oral aborted Take 20 mg by mouth daily [facility] Hydralazine Hydrochloride 10 MG Oral Tab let hydrALAZINE (APRESOLINE) 10 MG tablet hydrALAZINE (APRESOLINE) 10 MG tablet 10 mg Oral aborted Take 10 mg by mouth 3 (three) times a day [facility] Docusate Sodium 100 MG Oral Capsule docusate sodium (C OLACE) 100 MG capsule docusate sodium (COLACE) 100 MG capsule 100 mg Oral aborted Take 100 mg by mouth 2 (two) times a day as needed [facility] docosahexaenoic acid 120 MG / Eicosapent aenoic Acid 180 MG Oral Capsule [place]-3 Fatty Acids (FISH OIL) 1000 MG CAPS [place]-3 Fatty Acids (FISH OIL) 1000 MG CAPS Oral aborted Take by mouth [facility] Loperamide Hydrochloride 2 MG Oral Capsule loperamide (IMODIUM) 2 MG capsule loperamide (IMODIUM) 2 MG capsule 2 mg Oral abor fariba Take 2 mg by mouth 4 (four) times a day as needed for diarrhea [facility] Aspirin 81 MG Delayed Release Oral Tablet aspirin 81 M G EC tablet aspirin 81 MG EC tablet 81 mg Oral aborted Take 81 mg by mouth daily [facility] Colchicine 0.6 MG Oral Tablet colchicine 0.6 MG tablet colch icine 0.6 MG tablet aborted colchicine 0.6 m g tabs [facility] Insurance Providers Payer name Policy type / Coverage type Policy ID Covered democrat ID Covered democrat's relationship to ling Policy Ling Plan Information MEDICARE [id number] SP [id number] A MEDICARE A [id number] Self [id number] A MEDICAID M [id number] Self [id number] [facility] MEDICARE COMPLETE G [id number] Self [id number] [facility] MEDICARE COMPLETE G [id number] Self [id number] [facility] [id number] SP [id number] MEDICARE COMPLETE [id number] SP [id number] MEDICARE COMPLETE [id number] SP [id number] MEDICAID [id number] SP [id number] MEDICARE COMPLETE [id number] SP [id number] [facility] [id number] SP [id number] MEDICAID [id number] SP [id number] MEDICAID [id number] SP [id number] [facility] [id number] SP [id number] [facility] MEDICARE DUAL G [id number] Self [id number] ARTURO I [id number] Self [id number] [facility] MEDICARE DUAL G [id number] Self [id number] [facility] MEDICARE [id number] Lianne [id number] [facility] MEDICAID [id number] Lianne [id number] [facility] MEDICARE [id number] MEDICAID [id number] xxxxxxxx [id number] MEDICAID [id number] Lianne [id number] ANSI-Medicare Part B [id number] ANSI-Medicaid [id number] ANSI-Not a Secondary Insurance [id number] ANSI-Medicaid [id number] ANSI-Medicare Part B [id number] ANSI-Not a Secondary Insurance [id number] ANSI-Medicaid [id number] ANSI-Not a Secondary Insurance [id number] ANSI-Medicare Part B [id number] ANSI-Not a Secondary Insurance [id number] ANSI-Medicare Part B [id number] ANSI-Medicaid [id number] ANSI-Medicare Part B [id number] ANSI-Not a Secondary Insurance [id number] ANSI-Medicaid [id number] ANSI-Not a Secondary Insurance [id number] ANSI-Medicare Part B [id number] ANSI-Medicaid [id number] ANSI-Not a Secondary Insurance [id number] ANSI-Medicare Part B [id number] ANSI-Medicaid [id number] ANSI-Not a Secondary Insurance [id number] ANSI-Medicare Part B [id number] ANSI-Medicaid [id number] ANSI-Not a Secondary Insurance [id number] ANSI-Medicare Part B [id number] ANSI-Medicaid [id number] Medicaid [facility] Part B [id number] ..[id number] Self [id number] Medicare [employer] Medicare Primary [id number] ..[id number] [id number] [facility] [id number] Self [id number] [employer]/Medicare Commercial [id number] ..[id number] Self [id number] Medicaid [place] Medicaid [id number] Self [id number] ANSI-Medicare Part B [id number] ANSI-Not a Secondary Insurance [id number] ANSI-Medicaid [id number] MEDICARE [id number] SP [id number] ANSI-Medicaid [id number] ANSI-Medicare Part B [id number] ANSI-Medicare Part B [id number] ANSI-Medicare Part B [id number] ANSI-Medicare Part B [id number] ANSI-Medicaid [id number] ANSI-Medicare Part B [id number] ANSI-Medicaid [id number] ANSI-Medicare Part B [id number] ANSI-Medicaid [id number] ANSI-Medicare Part B [id number] ANSI-Medicare Part B [id number] ANSI-Medicare Part B [id number] ANSI-Medicaid [id number] ANSI-Medicare Part B [id number] ANSI-Medicare Part B [id number] ANSI-Medicaid [id number] ANSI-Medicare Part B [id number] ANSI-Medicaid [id number] ANSI-Medicare Part B [id number] ANSI-Medicare Part B [id number] [facility] O [id number] S [id number] ANSI-Medicare Part B [id number] ANSI-Medicare Part B [id number] ANSI-Medicaid [id number] ANSI-Medicaid [id number] ANSI-Medicare Part B [id number] ANSI-Medicare Part B [id number] ARTURO [id number] SP [id number] MEDICARE [id number] SP [id number] A ANSI-Medicaid [id number] ANSI-Medicare Part B [id number] ANSI-Medicare Part B [id number] MEDICARE C [id number] S [id number] MEDICARE C [id number] S [id number] A ANSI-Medicaid [id number] ANSI-Medicare Part B [id number] ANSI-Medicare Part B [id number] ANSI-Medicare Part B [id number] ANSI-Medicare Part B [id number] [facility]-Medicaid [id number] ANSI-Medicaid [id number] [facility]-Medicare Part B [id number] [facility]-Medicare Part B [id number] [facility] [id number] SP [id number] MEDICARE COMPLETE [id number] SP [id number] MEDICARE [id number] SP [id number] A MEDICARE COMPLETE [id number] SP [id number] Medicaid [facility] Part B [id number] .[id number]. 29027.0 Self [id number] [facility]/ [facility] Care Options [facility] Part B [id number]7.0 Self [id number] Medicare - NGS Medicare Primary [id number] Self 1 [id number] Medicaid [facility] Part B [id number] .[id number]. 62737.0 Self [id number] [employer] Commercial [id number] Self [id number] [facility] Medicare Commercial [id number].94222.0 Self [id number] Medicaid [place] Medigap Part B [id number] .8646.22863.0 Self [id number] [facility] Medicare Commercial [id number]6.05958.0 Self [id number] MEDICARE COMPLETE [id number] SP [id number] Medicaid [place] Medigap Part B [id number] 2.0.1.765806.3.227.99.177. 53500.0 Self [id number] [facility] Medigap Part B [id number].86286.0 Self [id number] Medicare - [place] Medicare Primary [id number].95867.0 Self 1 [id number] Medicaid [place] Med[place]ap Part B [id number] 2.0.1.818457.3.227.99.177. 87527.0 Self [id number] MEDICARE COMPLETE [id number] SP [id number] Medicaid [place] Medigap Part B [id number] 7504.0 Self [facility] Medicare Commercial [id number] 2.0.1.739467.3.227.99.8646.29944.0 Self [id number] MEDICARE COMPLETE-[facility] O [id number] S [id number] [employer] (Medicare) Medigap Part B [id number] Self Medicaid [place] Medigap Part B [id number] Self [employer] (MCR) Commercial [id number] Self UNITED HEALTHCARE [facility] [id number] SP [id number] MEDICARE COMPLETE [id number] SP [id number] MEDICAID W [id number] S [id number] MEDICARE OUTPATIENT M [id number] S [id number] [place] [id number] X [id number] [facility] [id number] SP [id number] [facility] [id number] SP [id number] [facility] [id number] SP [id number] MEDICARE [id number] SP [id number] [place] [id number] SP [id number] [facility](MCA[facility]) O [id number] S [id number] MEDICAID M [id number] S [id number] UNHC MEDICARE COMPLETE -PHYS [id number] 18 [id number] UNHC MEDICARE COMPLETE - O/P [id number] 18 [id number] UNHC MEDICARE COMPLETE I/P [id number] 18 [id number] MEDICAID [id number] SP [id number] MEDICARE COMPLETE [id number] SP [id number] [facility] O [id number] S [id number] [place] MEDICARE [id number] SP [id number] ANSI-Not a Secondary Insurance [id number] ANSI-Medicaid [id number] ANSI-Medicare Part B [id number] ANSI-Not a Secondary Insurance [id number] ANSI-Medicaid [id number] [facility]-Medicare Part B [id number] Problems, Conditions, and Diagnoses Code Display Name Description Problem Type Effective Dates Data Source(s) I10 Essential (primary) hypertension Essential (primary) h ypertension Diagnosis 05/28/2020 12:40:49 PM EDT [facility] C90.02 Multiple myeloma in relapse Multiple myeloma in relaps e Diagnosis 05/28/2020 12:40:49 PM EDT [facility] E78.2 Mixed hyperlipidemia Mixed hyperlipidemia Diagnosis 05/28/2020 12:40:49 PM EDT [facility] I25.10 Atherosclerotic heart diseas e of [place] coronary artery without angina pectoris Atherosclerotic heart disease of [place] Diagnosis 05/28/2020 12:40:49 PM EDT [facility] I35.0 Nonrheumatic aortic (valve) stenosis Nonrheumati c aortic (valve) stenosis Diagnosis 05/28/2020 12:40:49 PM EDT [facility] R531 Weakness Weakness Diagnosis 03/06/2020 10:10:00 AM [facility] [id number] Other pancytopenia Other pancytopenia Diagnosis 10:10:00 AM [facility] Z5111 Encounter for antineoplastic chemotherap y Encounter for antineoplastic chemotherapy Diagnosis 03/04/2020 12:24:00 PM [facility] C9000 Multiple myeloma not having achieved rem ission Multiple myeloma not having achieved remission Diagnosis 03/04/2020 12:24:00 PM [facility] R7303 Prediabetes Prediabetes Diagnosis 03/04/2020 12:24:00 PM [facility] I10 Essential (primary) hypertension Essential (primary) h ypertension Diagnosis 03/04/2020 12:24:00 PM [facility] E876 Hypokalemia Hypokalemia Diagnosis 03/04/2020 12:24:00 PM [facility] E8342 Hypomagnesemia Hypomagnesemia Diagnosis 03/04/2020 12:24: 00 PM [facility] R197 Diarrhea, unspecified Diarrhea, unspecified Diagnosis 03/04/2020 12:24:00 PM [facility] Z1159 Encounter for screening for other viral diseases Encounter for screening for other viral diseases Diagnosis 03/04/2020 12:24:00 PM [facility] R112 Nausea with vomiting, unspecified Nausea with vo miting, unspecified Diagnosis 03/04/2020 12:24:00 PM [facility] E860 Dehydration Dehydration Diagnosis 03/04/2020 12:24:00 PM [facility] G62.9 [id number] Neuropathy Problem 06/11/2020 12:00:00 AM ED T eCW1 ([facility]) C90.02 Multiple myeloma in relapse Multiple myeloma in relaps e [id number] 05/28/2020 12:00:00 AM EDT [facility] J31.0 [id number] Chronic rhinitis Problem 05/15/2020 12:00:00 AM EST eCW1 ([facility]) F51.04 [id number] Psychophysiological insomnia Problem 04/24/2020 12:00:00 AM EST eCW1 ([facility]) Surgeries/Procedures Procedure Description Date Indications Data Source(s) Colonoscopy Flexible Proximal To Splenic Flexure W/Biopsy Si ngle/ 08/14/2020 12:00:00 AM EDT [facility] ([facility] BLOOD COUNT COMPLETE AUTO&AUTO DIFRNTL WBC COUNT <td>C BC AND DIFFERENTIAL</td><td>Routine</td><td>05/12/2020</td><td></td><td> </td> 05/12/2020 12:00:00 AM EST [facility] HEPATIC FUNCTION PANEL <td>HEPATIC FUNCTION PANEL</td><td>Routine</td><td>05/12/2020</td><td></td><td> </td> 05/12/2020 12:00:00 AM EST [facility] BASIC METABOLIC PANEL CALCIUM TOTAL <td>BASIC METABOLI C PANEL</td><td>Routine</td><td>05/12/2020</td><td></td><td> </td> 05/12/2020 12:00:00 AM EST [facility] ECG ROUTINE ECG W/LEAST 12 LDS W/I&R <td>POCT AMB EKG</td><td>Routine</td><td>04/08/2020 3:07 PM EST</td><td> Atherosclerosis of [place] coronary artery of [place] heart without angina pectoris</td><td> </td> 04/08/2020 08:07:00 PM EST Atherosclerosis of [place] coronary arter y of [place] heart without angina pectoris [facility] Atherosclerosis of [place] coronary arter y of [place] heart without angina pectoris Computerized Tomography (CT Scan) of Head Computerized Tomography (CT Scan) of Head 03/10/2020 12:00:00 AM [facility] Plain Radiography of Chest Plain Radiography of Chest 2019 12:00:00 AM [facility] Introduction of Electrolytic and Water B alance Substance into Peripheral Vein, Percutaneous Approach Introduction of Electrolytic and Water B alance Substance into Peripheral Vein, Percutaneous Approach 03/06/2020 12:00:00 AM [facility] Monitoring of Cardiac Electrical Activity, External Ap proach Monitoring of Cardiac Electrical Activity, External Approach 03/06/2020 12:00:00 AM [facility] Results ID Date Data Source [id number] 01/04/2021 12:28:00 PM EDT [facility] Name Value Range Interpretation Code Description Data Miladys rce(s) Supporting Document(s) SARS-CoV-2 RNA Pnl Spec NELLY+probe NEG [facility] This lab was [facility] and reported by [facility]. ID Date Data Source [id number] 08/14/2020 03:41:00 PM EDT [facility] ([facility] ) Name Value Range Interpretation Code Description Data Miladys rce(s) Supporting Document(s) Surgical pathology study [facility] FINAL DIAGNOSIS A - Colon, random, [...] MD 08/18/2020 1404 ID Date Data Source [id number] 08/09/2020 10:35:00 AM EDT [facility] Name Value Range Interpretation Code Description Data [facility] rce(s) Supporting Document(s) SARS-CoV-2 (COVID-19) RNA [Presence] in Respiratory specimen by NELLY with probe detection Not Detected [facility] This lab was ordered by [facility] and reported by [employer] ID Date Data Source URIC ACID 06/11/2020 12:00:00 AM EDT eCW1 ([facility]) Name Value Range Interpretation Code Description Data Miladys rce(s) Supporting Document(s) 7.1 2.6-6.0 eCW1 ([facility]) ID Date Data Source [id number] 06/11/2020 12:00:00 AM EDT eCW1 ([facility]) Name Value Range Interpretation Code Description Data Miladys rce(s) Supporting Document(s) Hemoglobin A1c/Hemoglobin.total in Blood 5.6 HEMOGLOBIN A1c eC1 ([facility]) ID Date Data Source FREE T4 & TSH PANEL 06/11/2020 12:00:00 AM EDT eCW1 ([facility]) Name Value Range Interpretation Code Description Data Miladys rce(s) Supporting Document(s) 1.03 0.76-1.46 FREE T4 eCW1 ([facility]) 0.963 0.358-3.740 THYROID STIMULATING HORM ONE eCW1 ([facility]) ID Date Data Source [id number] 05/30/2020 12:17:00 PM EDT [facility] FASTING: UNKNOWNReceived: 05/30/2020 at 12:17:00 QPT: [facility], [address], [address] [facility], [place], [address], Casey Joshua MD Name Value Range Interpretation [...] of LDL-C.Cruz SS et al. ALLYN. 2013;310(19): 9160-3086(http://education.Ausra.Kiddy/faq/[email or web address]) Cholesterol.total/Cholesterol in HDL [Mass Ratio] in Serum [...] copy faxed has been acknowledged. Queued to: [id number] ID Date Data Source [id number] 04/14/2020 02:37:00 AM EST [facility] Name Value Range Interpretation Code Description Data Miladys rce(s) Supporting Document(s) SARS coronavirus 2 RNA [Presence] in Res piratory specimen by NELLY with probe detection NEGATIVE [facility] This lab was ordered by [facility] a nd reported by [facility]. ID Date Data Source Basic Metabolic Profile (BMP) 04/09/2020 12:00:00 AM EST eCW 1 ([facility]) Name Value Range Interpretation Code Description Data Miladys rce(s) Supporting Document(s) 99 70-100 GLUCOSE, FASTING eCW1 ([facility]) 17 7-18 BLOOD UREA NITROGEN eCW1 ([facility]) 143 136-145 SODIUM LEVEL eCW1 ([facility]) > 60.0 >45 GLOMERULAR FILTRATION RATE eCW 1 ([facility]) 3.5 3.5-5.1 POTASSIUM SERUM eCW1 ([facility]) 0.88 0.55-1.30 CREATININE FOR GFR eCW1 ([facility]) 31 21-32 CARBON DIOXIDE LEVEL eCW1 ([facility]) 8.5 8.8-10.2 CALCIUM LEVEL eCW1 ([facility]) 105 98-107 CHLORIDE LEVEL eCW1 ([facility]) ID Date Data Source C REACTIVE PROTEIN QUANTITATIV (At [facility]) 04/09/2020 12:00 :00 AM EST eCW1 ([facility]) Name Value Range Interpretation Code Description Data Miladys rce(s) Supporting Document(s) 0.30 0.00-0.30 C REACTIVE PROTEIN QUANTI TATIV eCW1 ([facility]) ID Date Data Source t-Transglutaminase (tTG) IgA 04/09/2020 12:00:00 AM EST eCW1 ([facility]) Name Value Range Interpretation Code Description Data Miladys rce(s) Supporting Document(s) Tissue transglutaminase IgA Ab [Units/volume] in Serum <2 0-3 TISSUE TRANSGLUTAMINASE IgA eCW1 ([facility]) ID Date Data Source [id number] 03/24/2020 06:18:00 PM EST [facility] Name Value Range Interpretation Code Description Data Miladys rce(s) Supporting Document(s) SARS coronavirus 2 RNA [Presence] in Res piratory specimen by NELLY with probe detection NEGATIVE [facility] This lab was ordered by [facility] a nd reported by [facility]. ID Date Data Source [id number] 03/12/2020 07:14:00 AM [facility] Name Value Range Interpretation Code Description Data Miladys rce(s) Supporting Document(s) CBC W/AUTOMATED DIFF [facility] COMPLETE BLOOD COUNT Leukocytes [#/volume] in Blood by Automated count 2.4 10^3/uL 4.2 - 1 1.0 L [facility] Erythrocytes [#/volume] in Blood by Automated count 2.66 10^6/uL 4. 20 - 5.40 L [facility] Hemoglobin [Mass/volume] in Blood 8.9 g/dL 12.0 - 16.0 L [facility] Hematocrit [Volume Fraction] of Blood by Automated count 26.3 % 3 7.0 - 47.0 L [facility] Erythrocyte mean corpuscular volume [Entitic volume] by Auto mated count 98.9 fL 81.0 - 101 [facility] Erythrocyte mean corpuscular hemoglobin [Entitic mass] by Automated count 33.5 pg 27.0 - 34.0 [facility] Erythrocyte mean corpuscular hemoglobin concentration [Mass/volume] by Automated count 33.8 g/dL 31.0 - 36.0 [facility] Erythrocyte distribution width [Ratio] by Automated count 17.3 % 11.5 - 14.5 H [facility] Platelets [#/volume] in Blood by Automated count 121 10^3/uL 150 - 45 0 L [facility] Platelet mean volume [Entitic volume] in Blood by Automated count 10.1 fL 7.4 - 10.4 [facility] Neutrophils/100 leukocytes in Blood by Automated count 72.5 % 37. 0 - 80.0 [facility] Lymphocytes/100 leukocytes in Blood by Manual count 21.6 % 25.0 - 40.0 L [facility] Monocytes/100 leukocytes in Blood by Automated count 4.2 % 3.0 - 8.0 [facility] Eosinophils/100 leukocytes in Blood by Automated count 0.0 % 0.0 - 7.0 [facility] 0.4 %IG 1.3 % 0.0 - 0.0 H [facility] %NRBC 0.0 % 0.0 - 0.0 [facility] al Neutrophils [#/volume] in Blood by Automated count 1.71 10^3/uL 2.00 - 6.90 L [facility] Lymphocytes [#/volume] in Blood by Automated count 0.51 10^3/uL 0.60 - 3.40 L [facility] Monocytes [#/volume] in Blood by Automated count 0.10 10^3/uL 0.00 - 0.90 [facility] Eosinophils [#/volume] in Blood by Automated count 0.00 10^3/uL 0.00 - 0.70 [facility] Basophils [#/volume] in Blood by Automated count 0.01 10^3/uL 0.00 - 0.20 [facility] #IG 0.03 10^3/uL 0.00 - 0.10 [facility] #NRBC 0.00 10^3/uL 0.00 - 0.00 [facility]ital MANUAL DIFF SEE BELOW [facility] ital Segmented neutrophils/100 leukocytes in Blood by Manual count 78 % 37 - 80 [facility] BAND 1 % 0 - 5 [facility] %LYMPH 18 % 25 - 40 L [facility] %MONO 2 % 3 - 8 L [facility] 1 RBC MORPH SEE BELOW [facility] al Anisocytosis [Presence] in Blood by Light microscopy 1+ NATASHA L: NONE SEEN A [facility] Macrocytes [Presence] in Blood by Light microscopy 1+ NORMAL: NONE SEEN A [facility] Poikilocytosis [Presence] in Blood by Light microscopy 1+ NOR MAL: NONE SEEN A [facility] Polychromasia [Presence] in Blood by Light microscopy 1+ NORM AL: NONE SEEN A [facility] { SICKLE CELL (NORMAL: NONE SEEN ) Ovalocytes [Presence] in Blood by Light microscopy 1+ NORMAL: NONE SEEN A [facility] Platelet adequacy [Presence] in Blood by Light microscopy DE CREASED NORMAL: NORMAL A [facility] COMMENT: ID Date Data Source [id number] 03/12/2020 06:43:00 AM EST [facility] Name Value Range Interpretation Code Description Data Miladys rce(s) Supporting Document(s) Magnesium [Mass/volume] in Serum or Plasma 1.5 MG/DL 1.7 - 2.2 L [facility] ID Date Data Source [id number] 03/12/2020 06:43:00 AM EST [facility] Name Value Range Interpretation Code Description Data Miladys rce(s) Supporting Document(s) COMPREHENSIVE METABOLIC PANEL [facility] COMPREHENSIVE METABOLIC PANEL Sodium [Moles/volume] in Serum or Plasma 139 mEq/L 134 - 153 [facility] Potassium [Moles/volume] in Serum or Plasma 4.8 mEq/L 3.6 - 5.0 [facility] Chloride [Moles/volume] in Serum or Plasma 104 mEq/L 98 - 107 [facility] Carbon dioxide, total [Moles/volume] in Serum or Plasma 27 MEQ/L 22 - 30 [facility] Glucose [Mass/volume] in Serum or Plasma 142 MG/DL 65 - 110 H [facility] BUN 8 MG/DL 7 - 21 [facility] al Creatinine [Mass/volume] in Serum or Plasma 0.5 MG/DL 0.7 - 1.5 L [facility] BUN/CREAT 16 8 - 27 [facility] al Protein [Mass/volume] in Serum or Plasma 5.4 G/DL 6.3 - 8.2 L [facility] Albumin [Mass/volume] in Serum or Plasma 3.5 G/DL 3.9 - 5.0 L [facility] Globulin [Mass/volume] in Serum by calculation 1.9 GM/DL 2.4 - 3.2 L [facility] A/G RATIO 1.8 0.8 - 2.0 [facility] Calcium [Mass/volume] in Serum or Plasma 8.5 MG/DL 8.4 - 10.2 [facility] Bilirubin.total [Mass/volume] in Serum or Plasma 1.0 MG/DL 0.2 - 1.3 [facility] Alkaline phosphatase [Enzymatic activity/volume] in Serum or Plasma 88 U/L 38 - 126 [facility] Aspartate aminotransferase [Enzymatic activity/volume] in Se rum or Plasma 9 U/L 5 - 40 [facility] Alanine aminotransferase [Enzymatic activity/volume] in Seru m or Plasma 7 U/L 7 - 56 [facility] Anion gap 3 in Serum or Plasma 8.0 mmol/L 8.0 - 16.0 [facility] AGE 64 yrs [facility] al NON-AA GFR >60 mL/min [facility] ital AFR AMER GFR >60 [facility] Male GFR In terprentation [...] >32 mL/min Normal ID Date Data Source [id number] 03/11/2020 10:52:00 AM EST [facility] [address] [place] [address] PHONE: [phone] FAX: [phone] Name .................. : GAMA [place]les Acct Number.................. : [id number] ROOM. ................. : 103-1 MR Number ................... : [id number] Stay type ............. : I/P Discharge Date......... ... : Admit Date ......... : 1 05/05/19 Admit Phys .................... : RACHEL Date of ....... : 1955 Family Phys ................... : NON STAFF Phone .................. : [phone] Age ................................ : 64 Film# .................. .:[id number] Sex ................................. : F Unsigned transcriptions are preliminary reports and do not represent a medical or legal document CT HEAD W/O CONTRAST [id number] COMPLETE:03/10/20 17:58 1109 (REASON FOR PROCEDURE :H [...] 03/10/20 22:23, Dictation Date: Copy for: 002 [facility] Copy for: 710 [facility] Page 1 of 1 Name Value Range Interpretation Code Description Data Miladys rce(s) Supporting Document(s) ID Date Data Source [id number] 03/13/2020 08:14:00 PM [facility] Name Value Range Interpretation Code Description Data Miladys rce(s) Supporting Document(s) Cytomegalovirus DNA [log units/volume] ( viral load) in Plasma by Probe and target amplification method COMMENT [id number]/mL [facility] Unable to calculate result since non-num rickey result obtained forcomponent test. Cytomegalovirus DNA [Units/volume] (sohail l load) in Plasma by Probe and target amplification method Negative IU/mL Negative [facility] No CMV DNA detected.The quantitative ran ge of this assay is 200 to 1 million IU/mL.This test was developed and its performance characteristics determinedby [facility]. It has not been cleared or approved by the Food and DrugAdministration. The FDA has determined that such clearance orapproval is not necessary. ID Date Data Source [id number] 03/11/2020 06:59:00 AM [facility] Name Value Range Interpretation Code Description Data Miladys rce(s) Supporting Document(s) CBC W/AUTOMATED DIFF [facility] COMPLETE BLOOD COUNT Leukocytes [#/volume] in Blood by Automated count 2.4 10^3/uL 4.2 - 1 1.0 L [facility] Erythrocytes [#/volume] in Blood by Automated count 2.51 10^6/uL 4. 20 - 5.40 L [facility] Hemoglobin [Mass/volume] in Blood 8.4 g/dL 12.0 - 16.0 L [facility] Hematocrit [Volume Fraction] of Blood by Automated count 25.3 % 3 7.0 - 47.0 L [facility] Erythrocyte mean corpuscular volume [Entitic volume] b y Automated count 100.8 fL 81.0 - 101 [facility] Erythrocyte mean corpuscular hemoglobin [Entitic mass] by Automated count 33.5 pg 27.0 - 34.0 [facility] Erythrocyte mean corpuscular hemoglobin concentration [Mass/volume] by Automated count 33.2 g/dL 31.0 - 36.0 [facility] Erythrocyte distribution width [Ratio] by Automated count 17.9 % 11.5 - 14.5 H [facility] Platelets [#/volume] in Blood by Automated count 101 10^3/uL 150 - 45 0 L [facility] Platelet mean volume [Entitic volume] in Blood by Automated count 10.8 fL 7.4 - 10.4 H [facility] Neutrophils/100 leukocytes in Blood by Automated count 58.0 % 37. 0 - 80.0 [facility] Lymphocytes/100 leukocytes in Blood by Manual count 26.8 % 25.0 - 40.0 [facility] Monocytes/100 leukocytes in Blood by Automated count 10.6 % 3.0 - 8.0 H [facility] Eosinophils/100 leukocytes in Blood by Automated count 3.8 % 0.0 - 7.0 [facility] Basophils/100 leukocytes in Blood by Automated count 0.4 % 0.0 - 2.5 [facility] %IG 0.4 % 0.0 - 0.0 [facility] %NRBC 0.0 % 0.0 - 0.0 [facility] al Neutrophils [#/volume] in Blood by Automated count 1.36 10^3/uL 2.00 - 6.90 L [facility] Lymphocytes [#/volume] in Blood by Automated count 0.63 10^3/uL 0.60 - 3.40 [facility] Monocytes [#/volume] in Blood by Automated count 0.25 10^3/uL 0.00 - 0.90 [facility] Eosinophils [#/volume] in Blood by Automated count 0.09 10^3/uL 0.00 - 0.70 [facility] Basophils [#/volume] in Blood by Automated count 0.01 10^3/uL 0.00 - 0.20 [facility] #IG 0.01 10^3/uL 0.00 - 0.10 [facility] #NRBC 0.00 10^3/uL 0.00 - 0.00 [facility] MANUAL DIFF SEE BELOW [facility] ital Segmented neutrophils/100 leukocytes in Blood by Manual count 65 % 37 - 80 [facility] %LYMPH 20 % 25 - 40 L [facility] %MONO 9 % 3 - 8 H [facility] %EOS 6 % 0 - 7 [facility] RBC MORPH NOT INDICATED [facility] ID Date Data Source [id number] 03/11/2020 06:48:00 AM [facility] Name Value Range Interpretation Code Description Data Miladys rce(s) Supporting Document(s) Magnesium [Mass/volume] in Serum or Plasma 1.5 MG/DL 1.7 - 2.2 L [facility] ID Date Data Source [id number] 03/11/2020 06:48:00 AM [facility] Name Value Range Interpretation Code Description Data Miladys rce(s) Supporting Document(s) COMPREHENSIVE METABOLIC PANEL [facility] COMPREHENSIVE METABOLIC PANEL Sodium [Moles/volume] in Serum or Plasma 139 mEq/L 134 - 153 [facility] Potassium [Moles/volume] in Serum or Plasma 4.1 mEq/L 3.6 - 5.0 [facility] Chloride [Moles/volume] in Serum or Plasma 104 mEq/L 98 - 107 [facility] Carbon dioxide, total [Moles/volume] in Serum or Plasma 29 MEQ/L 22 - 30 [facility] Glucose [Mass/volume] in Serum or Plasma 85 MG/DL 65 - 110 [facility] BUN 5 MG/DL 7 - 21 L [facility] al Creatinine [Mass/volume] in Serum or Plasma 0.6 MG/DL 0.7 - 1.5 L [facility] BUN/CREAT 8 8 - 27 [facility] al Protein [Mass/volume] in Serum or Plasma 5.1 G/DL 6.3 - 8.2 L [facility] Albumin [Mass/volume] in Serum or Plasma 3.1 G/DL 3.9 - 5.0 L [facility] Globulin [Mass/volume] in Serum by calculation 2.0 GM/DL 2.4 - 3.2 L [facility] A/G RATIO 1.6 0.8 - 2.0 [facility] Calcium [Mass/volume] in Serum or Plasma 8.7 MG/DL 8.4 - 10.2 [facility] Bilirubin.total [Mass/volume] in Serum or Plasma 0.9 MG/DL 0.2 - 1.3 [facility] Alkaline phosphatase [Enzymatic activity/volume] in Serum or Plasma 83 U/L 38 - 126 [facility] Aspartate aminotransferase [Enzymatic activity/volume] in Se rum or Plasma 8 U/L 5 - 40 [facility] Alanine aminotransferase [Enzymatic activity/volume] in Seru m or Plasma 8 U/L 7 - 56 [facility] Anion gap 3 in Serum or Plasma 6.0 mmol/L 8.0 - 16.0 L [facility] AGE 64 yrs [facility] al NON-AA GFR >60 mL/min [facility] ital AFR AMER GFR >60 [facility] Male GFR In terprentation [...] >32 mL/min Normal ID Date Data Source [id number] 03/10/2020 07:25:00 AM EST [facility] Name Value Range Interpretation Code Description Data Miladys rce(s) Supporting Document(s) COMPREHENSIVE METABOLIC PANEL [facility] COMPREHENSIVE METABOLIC PANEL Sodium [Moles/volume] in Serum or Plasma 141 mEq/L 134 - 153 [facility] Potassium [Moles/volume] in Serum or Plasma 4.3 mEq/L 3.6 - 5.0 [facility] Chloride [Moles/volume] in Serum or Plasma 105 mEq/L 98 - 107 [facility] Carbon dioxide, total [Moles/volume] in Serum or Plasma 29 MEQ/L 22 - 30 [facility] Glucose [Mass/volume] in Serum or Plasma 103 MG/DL 65 - 110 [facility] BUN 6 MG/DL 7 - 21 L [facility] Creatinine [Mass/volume] in Serum or Plasma 0.5 MG/DL 0.7 - 1.5 L [facility] BUN/CREAT 12 8 - 27 [facility] Protein [Mass/volume] in Serum or Plasma 5.4 G/DL 6.3 - 8.2 L [facility] Albumin [Mass/volume] in Serum or Plasma 3.4 G/DL 3.9 - 5.0 L [facility] Globulin [Mass/volume] in Serum by calculation 2.0 GM/DL 2.4 - 3.2 L [facility] A/G RATIO 1.7 0.8 - 2.0 [facility] Calcium [Mass/volume] in Serum or Plasma 8.8 MG/DL 8.4 - 10.2 [facility] Bilirubin.total [Mass/volume] in Serum or Plasma 0.7 MG/DL 0.2 - 1.3 [facility] Alkaline phosphatase [Enzymatic activity/volume] in Serum or Plasma 79 U/L 38 - 126 [facility] Aspartate aminotransferase [Enzymatic activity/volume] in Se rum or Plasma 9 U/L 5 - 40 [facility] Alanine aminotransferase [Enzymatic activity/volume] in Seru m or Plasma 8 U/L 7 - 56 [facility] Anion gap 3 in Serum or Plasma 7.0 mmol/L 8.0 - 16.0 L [facility] AGE 64 yrs [facility] NON-AA GFR >60 mL/min [facility] AFR AMER GFR >60 [facility] Male GFR In terprentation [...] >32 mL/min Normal ID Date Data Source [id number] 03/10/2020 07:25:00 AM [facility] Name Value Range Interpretation Code Description Data Miladys rce(s) Supporting Document(s) Magnesium [Mass/volume] in Serum or Plasma 1.4 MG/DL 1.7 - 2.2 L [facility] ID Date Data Source [id number] 03/10/2020 07:20:00 AM [facility] Name Value Range Interpretation Code Description Data Miladys rce(s) Supporting Document(s) CBC W/AUTOMATED DIFF [facility] COMPLETE BLOOD COUNT Leukocytes [#/volume] in Blood by Automated count 2.7 10^3/uL 4.2 - 1 1.0 L [facility] Erythrocytes [#/volume] in Blood by Automated count 2.62 10^6/uL 4. 20 - 5.40 L [facility] Hemoglobin [Mass/volume] in Blood 8.9 g/dL 12.0 - 16.0 L [facility] Hematocrit [Volume Fraction] of Blood by Automated count 26.4 % 3 7.0 - 47.0 L [facility] Erythrocyte mean corpuscular volume [Entitic volume] b y Automated count 100.8 fL 81.0 - 101 [facility] Erythrocyte mean corpuscular hemoglobin [Entitic mass] by Automated count 34.0 pg 27.0 - 34.0 [facility] Erythrocyte mean corpuscular hemoglobin concentration [Mass/volume] by Automated count 33.7 g/dL 31.0 - 36.0 [facility] Erythrocyte distribution width [Ratio] by Automated count 18.2 % 11.5 - 14.5 H [facility] Platelets [#/volume] in Blood by Automated count 103 10^3/uL 150 - 45 0 L [facility] Platelet mean volume [Entitic volume] in Blood by Automated count 10.2 fL 7.4 - 10.4 [facility] Neutrophils/100 leukocytes in Blood by Automated count 58.0 % 37. 0 - 80.0 [facility] Lymphocytes/100 leukocytes in Blood by Manual count 28.0 % 25.0 - 40.0 [facility] Monocytes/100 leukocytes in Blood by Automated count 10.0 % 3.0 - 8.0 H [facility] Eosinophils/100 leukocytes in Blood by Automated count 2.6 % 0.0 - 7.0 [facility] Basophils/100 leukocytes in Blood by Automated count 0.7 % 0.0 - 2.5 [facility] %IG 0.7 % 0.0 - 0.0 H [facility] %NRBC 0.0 % 0.0 - [facility] [#/[facility]] in Blood by Automated count 1.57 10^3/uL 2.00 - 6.90 L [facility] Lymphocytes [#/volume] in Blood by Automated count 0.76 10^3/uL 0.60 - 3.40 [facility] Monocytes [#/volume] in Blood by Automated count 0.27 10^3/uL 0.00 - 0.90 [facility] Eosinophils [#/volume] in Blood by Automated count 0.07 10^3/uL 0.00 - 0.70 [facility] Basophils [#/volume] in Blood by Automated count 0.02 10^3/uL 0.00 - 0.20 [facility] #IG 0.02 10^3/uL 0.00 - 0.10 [facility] #NRBC 0.00 10^3/uL 0.00 - 0.00 [facility] MANUAL DIFF SEE BELOW [facility] Segmented neutrophils/100 leukocytes in Blood by Manual count 64 % 37 - 80 [facility] BAND 1 % 0 - 5 [facility] %LYMPH 21 % 25 - 40 [facility] %MONO 8 % 3 - 8 [facility] %EOS 5 % 0 - 7 [facility] Metamyelocytes/100 leukocytes in Blood by Manual count 1 % [facility] RBC MORPH SEE BELOW [facility] Anisocytosis [Presence] in Blood by Light microscopy 1+ NATASHA L: NONE SEEN A [facility] Macrocytes [Presence] in Blood by Light microscopy 1+ NORMAL: NONE SEEN A [facility] Poikilocytosis [Presence] in Blood by Light microscopy 1+ NOR MAL: NONE SEEN A [facility] Polychromasia [Presence] in Blood by Light microscopy 1+ NORM AL: NONE SEEN A [facility] { SICKLE CELL (NORMAL: NONE SEEN ) Platelet adequacy [Presence] in Blood by Light microscopy DE CREASED NORMAL: NORMAL A [facility] COMMENT: ID Date Data Source [id number] 03/09/2020 09:47:00 AM EST [facility] [address] [place] [address] PHONE: [phone] FAX: [phone] Name .................. : GAMA Verduzco Number.................. : [id number] ROOM. ................. : 103-1 MR Number ................... : [id number] Stay type ............. : O/P Discharge Date......... ... : Admit Date ......... : 03/04/20 Admit Phys .................... : DANIKA-FALAN Date of ....... : 1955 Family Phys ................... : NON STAFF Phone .................. : [phone] Age ................................ : 64 Film# .................. .:[id number] Sex ................................. : F Unsigned transcriptions are preliminary reports and do not represent a medical or legal document DOPPLER VENOUS BILAT LEG 17353 COMPLETE:03/05/20 12:55 KNB 862 (REASON FOR PROCESS: [...] 03/05/20 13:17, Dictation Date: Copy for: 002 [facility] Copy for: [address] [place] [address] REC Page 1 of 1 Name Value Range Interpretation Code Description Data Miladys rce(s) Supporting Document(s) ID Date Data Source [id number] 03/09/2020 09:20:00 AM EST [facility] [address] [place] [address] PHONE: [phone] FAX: [phone] Name .................. : GAMA Nobles Acct Number.................. : [id number] ROOM. ................. : 103-1 MR Number ................... : [id number] Stay type ............. : I/P Discharge Date......... ... : Admit Date ......... : 03/04/20 Admit Phys .................... : DANIKA-LAWRENCE Date of ....... : 1955 Family Phys ................... : NON STAFF Phone .................. : [phone] Age ................................ : 64 Film# .................. .:[id number] Sex ................................. : F Unsigned transcriptions are preliminary reports and do not represent a medical or legal document CHEST 2 VIEWS 77569 COMPLETE:03/09/20 06:02 BEM 988 (REASON FOR CHEST: [...] 03/09/20 07:55, Dictation Date: Copy for: 002 [facility] Copy for: [address] [facility] Page 1 of 1 Name Value Range Interpretation Code Description Data Imladys rce(s) Supporting Document(s) ID Date Data Source [id number] 03/09/2020 07:42:00 AM EST [facility] Name Value Range Interpretation Code Description Data Miladys rce(s) Supporting Document(s) CBC W/AUTOMATED DIFF [facility] COMPLETE BLOOD COUNT Leukocytes [#/volume] in Blood by Automated count 2.3 10^3/uL 4.2 - 1 1.0 L [facility] Erythrocytes [#/volume] in Blood by Automated count 2.75 10^6/uL 4. 20 - 5.40 L [facility] Hemoglobin [Mass/volume] in Blood 9.1 g/dL 12.0 - 16.0 L [facility] Hematocrit [Volume Fraction] of Blood by Automated count 27.1 % 3 7.0 - 47.0 L [facility] Erythrocyte mean corpuscular volume [Entitic volume] by Auto mated count 98.5 fL 81.0 - 101 [facility] Erythrocyte mean corpuscular hemoglobin [Entitic mass] by Automated count 33.1 pg 27.0 - 34.0 [facility] Erythrocyte mean corpuscular hemoglobin concentration [Mass/volume] by Automated count 33.6 g/dL 31.0 - 36.0 [facility] Erythrocyte distribution width [Ratio] by Automated count 17.8 % 11.5 - 14.5 H [facility] Platelets [#/volume] in Blood by Automated count 101 10^3/uL 150 - 45 0 L [facility] Platelet mean volume [Entitic volume] in Blood by Automated count 10.8 fL 7.4 - 10.4 H [facility] Neutrophils/100 leukocytes in Blood by Automated count 58.2 % 37. 0 - 80.0 [facility] Lymphocytes/100 leukocytes in Blood by Manual count 27.0 % 25.0 - 40.0 [facility] Monocytes/100 leukocytes in Blood by Automated count 12.2 % 3.0 - 8.0 H [facility] Eosinophils/100 leukocytes in Blood by Automated count 1.3 % 0.0 - 7.0 [facility] Basophils/100 leukocytes in Blood by Automated count 0.9 % 0.0 - 2.5 [facility] %IG 0.4 % 0.0 - 0.0 [facility] %NRBC 0.0 % 0.0 - 0.0 [facility] Neutrophils [#/volume] in Blood by Automated count 1.34 10^3/uL 2.00 - 6.90 L [facility] Lymphocytes [#/volume] in Blood by Automated count 0.62 10^3/uL 0.60 - 3.40 [facility] Monocytes [#/volume] in Blood by Automated count 0.28 10^3/uL 0.00 - 0.90 [facility] Eosinophils [#/volume] in Blood by Automated count 0.03 10^3/uL 0.00 - 0.70 [facility] Basophils [#/volume] in Blood by Automated count 0.02 10^3/uL 0.00 - 0.20 [facility] #IG 0.01 10^3/uL 0.00 - 0.10 [facility] #NRBC 0.00 10^3/uL 0.00 - 0.00 [facility] MANUAL DIFF SEE BELOW [facility] Segmented neutrophils/100 leukocytes in Blood by Manual count 62 % 37 - 80 [facility] %LYMPH 29 % 25 - 40 [facility] %MONO 8 % 3 - 8 [facility] %EOS 1 % 0 - 7 [facility] RBC MORPH NOT INDICATED [facility] spital ID Date Data Source [id number] 03/09/2020 07:26:00 AM EST [facility] Name Value Range Interpretation Code Description Data Miladys rce(s) Supporting Document(s) COMPREHENSIVE METABOLIC PANEL [facility] COMPREHENSIVE METABOLIC PANEL Sodium [Moles/volume] in Serum or Plasma 142 mEq/L 134 - 153 [facility] Potassium [Moles/volume] in Serum or Plasma 3.2 mEq/L 3.6 - 5.0 L [facility] Chloride [Moles/volume] in Serum or Plasma 101 mEq/L 98 - 107 [facility] Carbon dioxide, total [Moles/volume] in Serum or Plasma 34 MEQ/L 22 - 30 H [facility] Glucose [Mass/volume] in Serum or Plasma 99 MG/DL 65 - 110 [facility] BUN 8 MG/DL 7 - 21 [facility] al Creatinine [Mass/volume] in Serum or Plasma 0.7 MG/DL 0.7 - 1.5 [facility] BUN/CREAT 11 8 - 27 [facility] Protein [Mass/volume] in Serum or Plasma 5.4 G/DL 6.3 - 8.2 L [facility] Albumin [Mass/volume] in Serum or Plasma 3.6 G/DL 3.9 - 5.0 L [facility] Globulin [Mass/volume] in Serum by calculation 1.8 GM/DL 2.4 - 3.2 L [facility] A/G RATIO 2.0 0.8 - 2.0 [facility] Calcium [Mass/volume] in Serum or Plasma 8.5 MG/DL 8.4 - 10.2 [facility] Bilirubin.total [Mass/volume] in Serum or Plasma 1.0 MG/DL 0.2 - 1.3 [facility] Alkaline phosphatase [Enzymatic activity/volume] in Serum or Plasma 79 U/L 38 - 126 [facility] Aspartate aminotransferase [Enzymatic activity/volume] in Se rum or Plasma 9 U/L 5 - 40 [facility] Alanine aminotransferase [Enzymatic activity/volume] in Seru m or Plasma 8 U/L 7 - 56 [facility] Anion gap 3 in Serum or Plasma 7.0 mmol/L 8.0 - 16.0 L [facility] AGE 64 yrs [facility] NON-AA GFR >60 mL/min [facility] AFR AMER GFR >60 [facility] Male GFR In terprentation [...] >32 mL/min Normal ID Date Data Source [id number] 03/09/2020 07:26:00 AM [facility] Name Value Range Interpretation Code Description Data Miladys rce(s) Supporting Document(s) Magnesium [Mass/volume] in Serum or Plasma 1.2 MG/DL 1.7 - 2.2 L [facility] ID Date Data Source [id number] 03/16/2020 12:12:00 PM [facility] Name Value Range Interpretation Code Description Data Miladys rce(s) Supporting Document(s) CULTURE BLOOD [facility] spital _CULTURE BLOOD_ [place] [address] CLIA# [id number] SEE SCANNED REPORT{ PRELIM ID Date Data Source [id number] 03/10/2020 01:00:00 PM [facility] [id number]/10/20 12:56 CALLED TO WAYNE Nobles BY OPAL, RESULTS READBACKThe [employer] BCID Panel is a qualitative multiplexednucleic acid-based [...] rce(s) Supporting Document(s) ID Date Data Source [id number] 03/16/2020 12:12:00 PM EST [facility] Name Value Range Interpretation Code Description Data Miladys rce(s) Supporting Document(s) CULTURE BLOOD [facility] kishantal _CULTURE BLOOD_ TEST PERFORM ED AT [place] [id number] CLIA# [id number] SEE SCANNED REPORT{ PRELIM GROWTH OF GRAM POS COCCI IN CLUSTERSCALLED TO PAT ON AIU 03/10/20 1305 CM ID Date Data Source [id number] 03/08/2020 08:45:00 PM EST [facility] Name Value Range Interpretation Code Description Data Miladys rce(s) Supporting Document(s) COVID-19 NOT DETECTED [facility] This lab was ordered by [facility] KISHANT and reported by [facility]. ID Date Data Source [id number] 03/08/2020 08:45:00 PM EST [facility] Name Value Range Interpretation Code Description Data Miladys rce(s) Supporting Document(s) COVID-19 REENTER NOT DETECTED [facility] This lab was ordered by [facility] and reported by [facility]. ID Date Data Source [id number] 03/08/2020 09:35:00 PM [facility] Name Value Range Interpretation Code Description Data Miladys rce(s) Supporting Document(s) COVID-19 NOT DETECTED [facility] COVID-19 REENTER NOT DETECTED [facility] { PROCEDURAL CONTROL VALID KIT LOT # _[id number] 03/08/20.DW . KIT EXP DATE _[id number] 03/08/20.DW . NORMAL RANGE IS NOT DETECTEDNEGATIVE RESULTS SHOULD BE TREATED PREUMPTIVE AND, IF INCONSISTENT WITHCLINICAL SIGNS AND SYMPTOMS OR NECESSARY FOR PATIENT MANAGEMENT, SHOULD BETESTED WITH DIFFERENT AUTHORIZED OR CLEARED MOLECULAR TESTS. NEGATIVE RESULTSDO NOT PRECLUDE SARS-CoV-2 INFECTION AND SHOULD NOT BE USED THE SOLE BASISFOR PATIENT MANAGEMENT DECISIONS. ID Date Data Source [id number] 03/08/2020 11:55:00 AM [facility] Name Value Range Interpretation Code Description Data Imladys rce(s) Supporting Document(s) Magnesium [Mass/volume] in Serum or Plasma 1.6 MG/DL 1.7 - 2.2 L [facility] ID Date Data Source [id number] 03/08/2020 09:41:00 AM [facility] Value Range Interpretation Code Description Data Miladys rce(s) Supporting Document(s) CBC W/AUTOMATED DIFF [facility] COMPLETE BLOOD COUNT Leukocytes [#/volume] in Blood by Automated count 2.3 10^3/uL 4.2 - 1 1.0 L [facility] Erythrocytes [#/volume] in Blood by Automated count 2.51 10^6/uL 4. 20 - 5.40 L [facility] Hemoglobin [Mass/volume] in Blood 8.5 g/dL 12.0 - 16.0 L [facility] Hematocrit [Volume Fraction] of Blood by Automated count 24.6 % 3 7.0 - 47.0 L [facility] Erythrocyte mean corpuscular volume [Entitic volume] by Auto mated count 98.0 fL 81.0 - 101 [facility] Erythrocyte mean corpuscular hemoglobin [Entitic mass] by Automated count 33.9 pg 27.0 - 34.0 [facility] Erythrocyte mean corpuscular hemoglobin concentration [Mass/volume] by Automated count 34.6 g/dL 31.0 - 36.0 [facility] Erythrocyte distribution width [Ratio] by Automated count 17.5 % 11.5 - 14.5 H [facility] Platelets [#/volume] in Blood by Automated count 94 10^3/uL 150 - 450 L [facility] Platelet mean volume [Entitic volume] in Blood by Automated count 11.1 fL 7.4 - 10.4 H [facility] Neutrophils/100 leukocytes in Blood by Automated count 61.3 % 37. 0 - 80.0 [facility] Lymphocytes/100 leukocytes in Blood by Manual count 23.2 % 25.0 - 40.0 L [facility] Monocytes/100 leukocytes in Blood by Automated count 12.9 % 3.0 - 8.0 H [facility] Eosinophils/100 leukocytes in Blood by Automated count 1.3 % 0.0 - 7.0 [facility] Basophils/100 leukocytes in Blood by Automated count 0.9 % 0.0 - 2.5 [facility] %IG 0.4 % 0.0 - 0.0 [facility] %NRBC 0.0 % 0.0 - 0.0 [facility] al Neutrophils [#/volume] in Blood by Automated count 1.43 10^3/uL 2.00 - 6.90 L [facility] Lymphocytes [#/volume] in Blood by Automated count 0.54 10^3/uL 0.60 - 3.40 L [facility] Monocytes [#/volume] in Blood by Automated count 0.30 10^3/uL 0.00 - 0.90 [facility] Eosinophils [#/volume] in Blood by Automated count 0.03 10^3/uL 0.00 - 0.70 [facility] Basophils [#/volume] in Blood by Automated count 0.02 10^3/uL 0.00 - 0.20 [facility] #IG 0.01 10^3/uL 0.00 - 0.10 [facility] ospital #NRBC 0.00 10^3/uL 0.00 - 0.00 [facility] MANUAL DIFF NOT INDICATED [facility] RBC MORPH NOT INDICATED [facility] ID Date Data Source [id number] 03/08/2020 09:00:00 AM EST [facility] Name Value Range Interpretation Code Description Data Miladys rce(s) Supporting Document(s) COMPREHENSIVE METABOLIC PANEL [facility] COMPREHENSIVE METABOLIC PANEL Sodium [Moles/volume] in Serum or Plasma 141 mEq/L 134 - 153 [facility] Potassium [Moles/volume] in Serum or Plasma 3.1 mEq/L 3.6 - 5.0 L [facility] Chloride [Moles/volume] in Serum or Plasma 106 mEq/L 98 - 107 [facility] Carbon dioxide, total [Moles/volume] in Serum or Plasma 30 MEQ/L 22 - 30 [facility] Glucose [Mass/volume] in Serum or Plasma 86 MG/DL 65 - 110 [facility] BUN <4 MG/DL 7 - 21 L [facility] Creatinine [Mass/volume] in Serum or Plasma 0.5 MG/DL 0.7 - 1.5 L [facility] BUN/CREAT 8 8 - 27 [facility] al Protein [Mass/volume] in Serum or Plasma 5.1 G/DL 6.3 - 8.2 L [facility] Albumin [Mass/volume] in Serum or Plasma 2.9 G/DL 3.9 - 5.0 L [facility] Globulin [Mass/volume] in Serum by calculation 2.2 GM/DL 2.4 - 3.2 L [facility] A/G RATIO 1.3 0.8 - 2.0 [facility] Calcium [Mass/volume] in Serum or Plasma 8.3 MG/DL 8.4 - 10.2 L [facility] Bilirubin.total [Mass/volume] in Serum or Plasma 0.8 MG/DL 0.2 - 1.3 [facility] Alkaline phosphatase [Enzymatic activity/volume] in Serum or Plasma 70 U/L 38 - 126 [facility] Aspartate aminotransferase [Enzymatic activity/volume] in Se rum or Plasma 8 U/L 5 - 40 [facility] Alanine aminotransferase [Enzymatic activity/volume] in Seru m or Plasma 7 U/L 7 - 56 [facility] Anion gap 3 in Serum or Plasma 5.0 mmol/L 8.0 - 16.0 L [facility] AGE 64 yrs [facility] NON-AA GFR >60 mL/min [facility] AFR AMER GFR >60 [facility] Male GFR In terprentation [...] >32 mL/min Normal ID Date Data Source [id number] 03/07/2020 10:42:00 AM [facility] Name Value Range Interpretation Code Description Data Miladys rce(s) Supporting Document(s) Iron [Mass/volume] in Serum or Plasma 62 UG/DL 42 - 135 [facility] ID Date Data Source [id number] 03/07/2020 09:11:00 AM [facility] Name Value Range Interpretation Code Description Data Miladys rce(s) Supporting Document(s) CBC W/AUTOMATED DIFF [facility] COMPLETE BLOOD COUNT Leukocytes [#/volume] in Blood by Automated count 2.5 10^3/uL 4.2 - 1 1.0 L [facility] Erythrocytes [#/volume] in Blood by Automated count 2.52 10^6/uL 4. 20 - 5.40 L [facility] Hemoglobin [Mass/volume] in Blood 8.4 g/dL 12.0 - 16.0 L [facility] Hematocrit [Volume Fraction] of Blood by Automated count 24.8 % 3 7.0 - 47.0 L [facility] Erythrocyte mean corpuscular volume [Entitic volume] by Auto mated count 98.4 fL 81.0 - 101 [facility] Erythrocyte mean corpuscular hemoglobin [Entitic mass] by Automated count 33.3 pg 27.0 - 34.0 [facility] Erythrocyte mean corpuscular hemoglobin concentration [Mass/volume] by Automated count 33.9 g/dL 31.0 - 36.0 [facility] Erythrocyte distribution width [Ratio] by Automated count 17.5 % 11.5 - 14.5 H [facility] Platelets [#/volume] in Blood by Automated count 86 10^3/uL 150 - 450 L [facility] Platelet mean volume [Entitic volume] in Blood by Automated count 10.5 fL 7.4 - 10.4 H [facility] Neutrophils/100 leukocytes in Blood by Automated count 66.3 % 37. 0 - 80.0 [facility] Lymphocytes/100 leukocytes in Blood by Manual count 18.9 % 25.0 - 40.0 L [facility] Monocytes/100 leukocytes in Blood by Automated count 10.8 % 3.0 - 8.0 H [facility] Eosinophils/100 leukocytes in Blood by Automated count 2.8 % 0.0 - 7.0 [facility] Basophils/100 leukocytes in Blood by Automated count 0.8 % 0.0 - 2.5 [facility] %IG 0.4 % 0.0 - 0.0 [facility] %NRBC 0.0 % 0.0 - 0.0 [facility] al Neutrophils [#/volume] in Blood by Automated count 1.65 10^3/uL 2.00 - 6.90 L [facility] Lymphocytes [#/volume] in Blood by Automated count 0.47 10^3/uL 0.60 - 3.40 L [facility] Monocytes [#/volume] in Blood by Automated count 0.27 10^3/uL 0.00 - 0.90 [facility] Eosinophils [#/volume] in Blood by Automated count 0.07 10^3/uL 0.00 - 0.70 [facility] Basophils [#/volume] in Blood by Automated count 0.02 10^3/uL 0.00 - 0.20 [facility] #IG 0.01 10^3/uL 0.00 - 0.10 [facility] ospital #NRBC 0.00 10^3/uL 0.00 - 0.00 [facility] MANUAL DIFF NOT INDICATED [facility] RBC MORPH NOT INDICATED [facility] ID Date Data Source [id number] 03/07/2020 08:40:00 AM [facility] Name Value Range Interpretation Code Description Data Miladys rce(s) Supporting Document(s) Magnesium [Mass/volume] in Serum or Plasma 1.1 MG/DL 1.7 - 2.2 L [facility] ID Date Data Source [id number] 03/07/2020 08:40:00 AM [facility] Name Value Range Interpretation Code Description Data Miladys e(s) Supporting Document(s) COMPREHENSIVE METABOLIC PANEL [facility] COMPREHENSIVE METABOLIC PANEL Sodium [Moles/volume] in Serum or Plasma 139 mEq/L 134 - 153 [facility] Potassium [Moles/volume] in Serum or Plasma 3.4 mEq/L 3.6 - 5.0 L [facility] Chloride [Moles/volume] in Serum or Plasma 107 mEq/L 98 - 107 [facility] Carbon dioxide, total [Moles/volume] in Serum or Plasma 26 MEQ/L 22 - 30 [facility] Glucose [Mass/volume] in Serum or Plasma 91 MG/DL 65 - 110 [facility] BUN 5 MG/DL 7 - 21 L [facility] al Creatinine [Mass/volume] in Serum or Plasma 0.5 MG/DL 0.7 - 1.5 L [facility] BUN/CREAT 10 8 - 27 [facility] Protein [Mass/volume] in Serum or Plasma 4.7 G/DL 6.3 - 8.2 L [facility] Albumin [Mass/volume] in Serum or Plasma 3.0 G/DL 3.9 - 5.0 L [facility] Globulin [Mass/volume] in Serum by calculation 1.7 GM/DL 2.4 - 3.2 L [facility] A/G RATIO 1.8 0.8 - 2.0 [facility] Calcium [Mass/volume] in Serum or Plasma 8.0 MG/DL 8.4 - 10.2 L [facility] Bilirubin.total [Mass/volume] in Serum or Plasma <0.7 MG/DL 0.2 - 1.3 [facility] Alkaline phosphatase [Enzymatic activity/volume] in Serum or Plasma 69 U/L 38 - 126 [facility] Aspartate aminotransferase [Enzymatic activity/volume] in Se rum or Plasma 8 U/L 5 - 40 [facility] Alanine aminotransferase [Enzymatic activity/volume] in Seru m or Plasma 6 U/L 7 - 56 L [facility] Anion gap 3 in Serum or Plasma 6.0 mmol/L 8.0 - 16.0 L [facility] 64 [facility]60 mL/min [facility] AFR AMER GFR >60 [facility] Male GFR In terprentation [...] >32 mL/min Normal ID Date Data Source [id number] 03/11/2020 06:20:00 AM [facility] Name Value Range Interpretation Code Description Data Miladys rce(s) Supporting Document(s) Clostridium difficile toxin A+B [Presence] in Stool by Immun oassay Negative Negative [facility] ID Date Data Source [id number] 03/10/2020 06:12:00 AM [facility] Name Value Range Interpretation Code Description Data Miladys rce(s) Supporting Document(s) WBC STOOL [facility] al _WBC STOOL_$$[id number]$$[id number]$$[id number] $$[id number]$$[id number]$$[id number] DATE/TIME: 03/09/2020 18:05Culture: WBC STOOL Status: FinalWhite Blood Cells (WBC), Stool: P1No white blood cells seen.Reference Range: None SeenP1 Test performed by: Tr DURAN #: [id number] [address] [place] [address] [id number] [facility] [id number] Director : Hira Cole MD NPI #:Senior Medical Writer : 03/10/20.0613.XMT.SENT REF ID Date Data Source [id number] 03/06/2020 07:44:00 AM [facility] Name Value Range Interpretation Code Description Data Miladys rce(s) Supporting Document(s) Magnesium [Mass/volume] in Serum or Plasma 1.4 MG/DL 1.7 - 2.2 L [facility] ID Date Data Source [id number] 03/06/2020 07:44:00 AM [facility] Name Value Range Interpretation Code Description Data Miladys rce(s) Supporting Document(s) COMPREHENSIVE METABOLIC PANEL [facility] COMPREHENSIVE METABOLIC PANEL Sodium [Moles/volume] in Serum or Plasma 141 mEq/L 134 - 153 [facility] Potassium [Moles/volume] in Serum or Plasma 3.8 mEq/L 3.6 - 5.0 [facility] Chloride [Moles/volume] in Serum or Plasma 108 mEq/L 98 - 107 H [facility] Carbon dioxide, total [Moles/volume] in Serum or Plasma 27 MEQ/L 22 - 30 [facility] Glucose [Mass/volume] in Serum or Plasma 114 MG/DL 65 - 110 H [facility] BUN 9 MG/DL 7 - [facility] Creat[facility] [Mass/volume] in Serum or Plasma 0.6 MG/DL 0.7 - 1.5 L [facility] BUN/CREAT 15 8 - 27 [facility] al Protein [Mass/volume] in Serum or Plasma 5.3 G/DL 6.3 - 8.2 L [facility] Albumin [Mass/volume] in Serum or Plasma 3.5 G/DL 3.9 - 5.0 L [facility] Globulin [Mass/volume] in Serum by calculation 1.8 GM/DL 2.4 - 3.2 L [facility] A/G RATIO 1.9 0.8 - 2.0 [facility] Calcium [Mass/volume] in Serum or Plasma 8.6 MG/DL 8.4 - 10.2 [facility] Bilirubin.total [Mass/volume] in Serum or Plasma <0.7 MG/DL 0.2 - 1.3 [facility] Alkaline phosphatase [Enzymatic activity/volume] in Serum or Plasma 80 U/L 38 - 126 [facility] Aspartate aminotransferase [Enzymatic activity/volume] in Se rum or Plasma 8 U/L 5 - 40 [facility] Alanine aminotransferase [Enzymatic activity/volume] in Seru m or Plasma 8 U/L 7 - 56 [facility] Anion gap 3 in Serum or Plasma 6.0 mmol/L 8.0 - 16.0 L [facility] AGE 64 yrs [facility] NON-AA GFR >60 mL/min [facility] AFR AMER GFR >60 [facility] Male GFR In terprentation [...] >32 mL/min Normal ID Date Data Source [id number] 03/06/2020 07:33:00 AM EST [facility] Name Value Range Interpretation Code Description Data Miladys rce(s) Supporting Document(s) CBC W/AUTOMATED DIFF [facility] COMPLETE BLOOD COUNT Leukocytes [#/volume] in Blood by Automated count 2.7 10^3/uL 4.2 - 1 1.0 L [facility] Erythrocytes [#/volume] in Blood by Automated count 2.68 10^6/uL 4. 20 - 5.40 L [facility] Hemoglobin [Mass/volume] in Blood 8.8 g/dL 12.0 - 16.0 L [facility] Hematocrit [Volume Fraction] of Blood by Automated count 26.9 % 3 7.0 - 47.0 L [facility] Erythrocyte mean corpuscular volume [Entitic volume] b y Automated count 100.4 fL 81.0 - 101 [facility] Erythrocyte mean corpuscular hemoglobin [Entitic mass] by Automated count 32.8 pg 27.0 - 34.0 [facility] Erythrocyte mean corpuscular hemoglobin concentration [Mass/volume] by Automated count 32.7 g/dL 31.0 - 36.0 [facility] Erythrocyte distribution width [Ratio] by Automated count 18.1 % 11.5 - 14.5 H [facility] Platelets [#/volume] in Blood by Automated count 96 10^3/uL 150 - 450 L [facility] Platelet mean volume [Entitic volume] in Blood by Automated count 10.5 fL 7.4 - 10.4 H [facility] Neutrophils/100 leukocytes in Blood by Automated count 67.5 % 37. 0 - 80.0 [facility] Lymphocytes/100 leukocytes in Blood by Manual count 18.1 % 25.0 - 40.0 L [facility] Monocytes/100 leukocytes in Blood by Automated count 10.0 % 3.0 - 8.0 H [facility] Eosinophils/100 leukocytes in Blood by Automated count 2.2 % 0.0 - 7.0 [facility] Basophils/100 leukocytes in Blood by Automated count 1.5 % 0.0 - 2.5 [facility] %IG 0.7 % 0.0 - 0.0 [facility] %NRBC 0.0 % 0.0 - 0.0 [facility] al Neutrophils [#/volume] in Blood by Automated count 1.82 10^3/uL 2.00 - 6.90 L [facility] Lymphocytes [#/volume] in Blood by Automated count 0.49 10^3/uL 0.60 - 3.40 L [facility] Monocytes [#/volume] in Blood by Automated count 0.27 10^3/uL 0.00 - 0.90 [facility] Eosinophils [#/volume] in Blood by Automated count 0.06 10^3/uL 0.00 - 0.70 [facility] Basophils [#/volume] in Blood by Automated count 0.04 10^3/uL 0.00 - 0.20 [facility] #IG 0.02 10^3/uL 0.00 - 0.10 [facility] ospital #NRBC 0.00 10^3/uL 0.00 - 0.00 [facility] MANUAL DIFF NOT INDICATED [facility] RBC MORPH NOT INDICATED [facility] ID Date Data Source [id number] 03/10/2020 09:30:00 AM EST [facility] Name Value Range Interpretation Code Description Data Miladys rce(s) Supporting Document(s) CULTURE STOOL [facility] _CULTURE STOOL_$$[id number]$$[id number]$$[id number]$$[id number]$$[id number]$$[id number]$$[id number]$$[id number]$$[id number]$$ [id number]$$[id number]$$[id number] DATE/TIME: 03/10/2020 07:06Culture: CULTURE STOOL Status: FinalSalmonella/Shigella Screen: P1No Salmonella or Shigella recovered.NO COLIFORMS ISOLATED Previous result entered on 03/08/2020 12:28 ET Microbiological testing to rule out the presence of possible pathogensis in progress.Campylobacter Culture: P1No Campylobacter species isolated. -- Continued on next page --Patient: GAMA Nobles Order: [id number] Page 2Culture: CULTURE STOOL Status: Final ====E coli Shiga Toxin EIA: [id number] Range: NegativeP1 Test performed by: [facility] #: [id number] [address] [place] [address] [phone] [facility] [id number] Director : Hira Cole MD NPI #:Senior Medical Writer : 03/09/20.0723.XMT.SENT REF 03/09/20.1434.XMT.SENT REF 03/10/20.0930.XMT.SENT REF ID Date Data Source [id number] 03/05/2020 10:21:00 AM EST [facility] Name Value Range Interpretation Code Description Data Miladys rce(s) Supporting Document(s) Lactate [Moles/volume] in Serum or Plasma 1.9 MMOL/L 0.2 - 2.2 [facility] ID Date Data Source [id number] 03/05/2020 09:13:00 AM EST [facility] [address] [place] [address] PHONE: [phone] FAX: [phone] Name .................. : GAMA Nobles Acct Number.................. : [id number] ROOM. ................. : 103-1 MR Number ................... : [id number] Stay type ............. : O/P Discharge Date......... ... : Admit Date ......... : 03/04/20 Admit Phys .................... : DANIKA-LAWRENCE Date of ....... : 1955 Family Phys ................... : NON STAFF Phone .................. : [phone] Age ................................ : 64 Film# .................. .:[id number] Sex ................................. : F Unsigned transcriptions are preliminary reports and do not represent a medical or legal document ABDOMEN 1 VIEW [id number] COMPLETE:03/04/20 14:04 ARS 792 Reason(s): n/v/d r/o [...] rce(s) Supporting Document(s) ID Date Data Source [id number] 03/05/2020 08:08:00 AM EST [facility] Name Value Range Interpretation Code Description Data Miladys rce(s) Supporting Document(s) CBC W/AUTOMATED DIFF [facility] COMPLETE BLOOD COUNT Leukocytes [#/volume] in Blood by Automated count 2.3 10^3/uL 4.2 - 1 1.0 L [facility] Erythrocytes [#/volume] in Blood by Automated count 2.70 10^6/uL 4. 20 - 5.40 L [facility] Hemoglobin [Mass/volume] in Blood 9.1 g/dL 12.0 - 16.0 L [facility] Hematocrit [Volume Fraction] of Blood by Automated count 27.1 % 3 7.0 - 47.0 L [facility] Erythrocyte mean corpuscular volume [Entitic volume] b y Automated count 100.4 fL 81.0 - 101 [facility] Erythrocyte mean corpuscular hemoglobin [Entitic mass] by Automated count 33.7 pg 27.0 - 34.0 [facility] Erythrocyte mean corpuscular hemoglobin concentration [Mass/volume] by Automated count 33.6 g/dL 31.0 - 36.0 [facility] Erythrocyte distribution width [Ratio] by Automated count 18.0 % 11.5 - 14.5 H [facility] Platelets [#/volume] in Blood by Automated count 92 10^3/uL 150 - 450 L [facility] Platelet mean volume [Entitic volume] in Blood by Automated count 10.7 fL 7.4 - 10.4 H [facility] Neutrophils/100 leukocytes in Blood by Automated count 60.3 % 37. 0 - 80.0 [facility] Lymphocytes/100 leukocytes in Blood by Manual count 20.3 % 25.0 - 40.0 L [facility] Monocytes/100 leukocytes in Blood by Automated count 16.0 % 3.0 - 8.0 H [facility] Eosinophils/100 leukocytes in Blood by Automated count 1.3 % 0.0 - 7.0 [facility] Basophils/100 leukocytes in Blood by Automated count 1.7 % 0.0 - 2.5 [facility] %IG 0.4 % 0.0 - 0.0 [facility] %NRBC 0.0 % 0.0 - 0.0 [facility] al Neutrophils [#/volume] in Blood by Automated count 1.39 10^3/uL 2.00 - 6.90 L [facility] Lymphocytes [#/volume] in Blood by Automated count 0.47 10^3/uL 0.60 - 3.40 L [facility] Monocytes [#/volume] in Blood by Automated count 0.37 10^3/uL 0.00 - 0.90 [facility] Eosinophils [#/volume] in Blood by Automated count 0.03 10^3/uL 0.00 - 0.70 [facility] Basophils [#/volume] in Blood by Automated count 0.04 10^3/uL 0.00 - 0.20 [facility] #IG 0.01 10^3/uL 0.00 - 0.10 [facility] #NRBC 0.00 10^3/uL 0.00 - 0.00 [facility] MANUAL DIFF SEE BELOW [facility] ital Segmented neutrophils/100 leukocytes in Blood by Manual count 65 % 37 - 80 [facility] %LYMPH 23 % 25 - 40 L [facility] %MONO 11 % 3 - 8 H [facility] %EOS 1 % 0 - 7 [facility] RBC MORPH SEE BELOW [facility] Anisocytosis [Presence] in Blood by Light microscopy 1+ NATASHA L: NONE SEEN A [facility] Macrocytes [Presence] in Blood by Light microscopy 1+ NORMAL: NONE SEEN A [facility] Poikilocytosis [Presence] in Blood by Light microscopy 1+ NOR MAL: NONE SEEN A [facility] { SICKLE CELL (NORMAL: NONE SEEN ) Platelet adequacy [Presence] in Blood by Light microscopy DE CREASED NORMAL: NORMAL A [facility] COMMENT: ID Date Data Source [id number] 03/05/2020 07:47:00 AM [facility] Name Value Range Interpretation Code Description Data Miladys rce(s) Supporting Document(s) Phosphate [Mass/volume] in Serum or Plasma 3.6 MG/DL 2.5 - 4.5 [facility] ID Date Data Source [id number] 03/05/2020 07:47:00 AM [facility] Value Range Interpretation Code Description Data Miladys rce(s) Supporting Document(s) Magnesium [Mass/volume] in Serum or Plasma 1.6 MG/DL 1.7 - 2.2 L [facility] ID Date Data Source [id number] 03/05/2020 07:47:00 AM [facility] Name Value Range Interpretation Code Description Data Miladys rce(s) Supporting Document(s) COMPREHENSIVE METABOLIC PANEL [facility] COMPREHENSIVE METABOLIC PANEL Sodium [Moles/volume] in Serum or Plasma 144 mEq/L 134 - 153 [facility] Potassium [Moles/volume] in Serum or Plasma 3.3 mEq/L 3.6 - 5.0 L [facility] Chloride [Moles/volume] in Serum or Plasma 106 mEq/L 98 - 107 [facility] Carbon dioxide, total [Moles/volume] in Serum or Plasma 29 MEQ/L 22 - 30 [facility] Glucose [Mass/volume] in Serum or Plasma 110 MG/DL 65 - 110 [facility] BUN 17 MG/DL 7 - 21 [facility] al Creatinine [Mass/volume] in Serum or Plasma 0.8 MG/DL 0.7 - 1.5 [facility] BUN/CREAT 21 8 - 27 [facility] al Protein [Mass/volume] in Serum or Plasma 5.3 G/DL 6.3 - 8.2 L [facility] Albumin [Mass/volume] in Serum or Plasma 3.5 G/DL 3.9 - 5.0 L [facility] Globulin [Mass/volume] in Serum by calculation 1.8 GM/DL 2.4 - 3.2 L [facility] A/G RATIO 1.9 0.8 - 2.0 [facility] Calcium [Mass/volume] in Serum or Plasma 8.5 MG/DL 8.4 - 10.2 [facility] Bilirubin.total [Mass/volume] in Serum or Plasma <0.7 MG/DL 0.2 - 1.3 [facility] Alkaline phosphatase [Enzymatic activity/volume] in Serum or Plasma 73 U/L 38 - 126 [facility] Aspartate aminotransferase [Enzymatic activity/volume] in Se rum or Plasma 8 U/L 5 - 40 [facility] Alanine aminotransferase [Enzymatic activity/volume] in Seru m or Plasma 8 U/L 7 - 56 [facility] Anion gap 3 in Serum or Plasma 9.0 mmol/L 8.0 - 16.0 [facility] 64 [facility] >60 mL/min [facility] ital AFR AMER GFR >60 [facility] Male GFR In terprentation [...] >32 mL/min Normal ID Date Data Source [id number] 03/05/2020 02:48:00 AM EST [facility] Name Value Range Interpretation Code Description Data Miladys rce(s) Supporting Document(s) BASIC METABOLIC PANEL [facility] BASIC METABOLIC PANEL Sodium [Moles/volume] in Serum or Plasma 140 mEq/L 134 - 153 [facility] Potassium [Moles/volume] in Serum or Plasma 3.4 mEq/L 3.6 - 5.0 L [facility] Chloride [Moles/volume] in Serum or Plasma 102 mEq/L 98 - 107 [facility] Carbon dioxide, total [Moles/volume] in Serum or Plasma 28 MEQ/L 22 - 30 [facility] Glucose [Mass/volume] in Serum or Plasma 136 MG/DL 65 - 110 H [facility] BUN 20 MG/DL 7 - 21 [facility] al Creatinine [Mass/volume] in Serum or Plasma 0.8 MG/DL 0.7 - 1.5 [facility] BUN/CREAT 25 8 - 27 [facility] Calcium [Mass/volume] in Serum or Plasma 8.7 MG/DL 8.4 - 10.2 [facility] Anion gap 3 in Serum or Plasma 10.0 mmol/L 8.0 - 16.0 [facility] AGE 64 yrs [facility] al AFR AMER GFR >60 [facility] NON-AA GFR >60 mL/min [facility] ital Male GFR Inter prentation 20-49 [...] >32 mL/min Normal ID Date Data Source [id number] 03/05/2020 02:41:00 AM EST [facility] Name Value Range Interpretation Code Description Data Miladys rce(s) Supporting Document(s) Magnesium [Mass/volume] in Serum or Plasma 1.7 MG/DL 1.7 - 2.2 [facility] ID Date Data Source [id number] 03/04/2020 08:14:00 PM [facility] Name Value Range Interpretation Code Description Data Miladys rce(s) Supporting Document(s) URINALYSIS [facility] sumeet URINALYSIS SOURCE R [facility] COLOR yellow NORMAL: Yellow [facility] CLARITY hazy NORMAL: Clear [facility] Specific gravity of Urine by Test strip 1.020 1.001 - 1.030 [facility] pH 5 5 - 9 [facility] Glucose [Mass/volume] in Urine by Test strip NORM NORMAL: Negat [facility] Bilirubin.total [Presence] in Urine by Test strip NEG NORMAL: Negative [facility] Ketones [Presence] in Urine by Test strip NEG NORMAL: Negative [facility] Protein [Mass/volume] in Urine by Test strip [facility]] in Urine by Test strip NEG NORMAL: Negative [facility] BLOOD NEG NORMAL: Negative [facility] Leukocyte esterase [Presence] in Urine by Test strip NEG NATASHA L: Negative [facility] Urobilinogen [Mass/volume] in Urine by Test strip NOR less lori n 1.0 mg/dL [facility] MICROSCOPIC Not Indicate [facility] ID Date Data Source [id number] 03/04/2020 12:24:00 PM [facility] 1 OrderSheet [facility] Emergency Department [address] [place] [address] Phone #: ext- [phone] 03/04/2020 11:58 Patient: [...] MD; Rachid RNCMP STAT 12:04 03/04/2020 12:18 Natsaha Mcgowan MD; Rachid RNLactic Acid STAT 12:04 [...] (FirstTest) (NotHospitalized) (Not) (NotResident in 2 OrderSheet [facility] Emergency Department [address] [place] [address] Phone #: ext- [phone] 03/04/2020 11:58 Patient: [...] rce(s) Supporting Document(s) ID Date Data Source [id number] 03/04/2020 12:24:00 PM EST [facility] 1 Medication Reconciliation Report [facility] Emergency Department [address] [place] [address] Phone #: ext- [phone] 03/04/2020 11:58 Patient: [...] a day, prn 2 Medication Reconciliation Report [facility] Emergency Department [address] [place] [address] Phone #: ext- [phone] 03/04/2020 11:58 Patient: [...] rce(s) Supporting Document(s) ID Date Data Source [id number] 03/04/2020 12:24:00 PM [facility] 1 Medication Administration Record [facility] Emergency Department [address] [place] [address] Phone #: [phone]- [phone] 03/04/2020 11:58 Patient: JEREMI MALLOY Sex: F : 1955 Age: 64yWeight: 83.2 kgHeight/Length: 64 inBMI: 31.5ALLERGIES: Quinolones, FLUOCINOLONE, Doxycycline, Tylenol, Spironolactone, PredniSONE, OCYCODONE, Metformin ,Keppra, Gabapentin, Codeine, Carisoprodol, Amitriptyline, NSAIDs Date/Time Medication Administered Medication OrderedStart NS [IV] IV NS 500 mL Bolus : Bolus 09325:45 03/04/2020 Dose: IV Fluids mL (X1)Hank Rashid [...] rce(s) Supporting Document(s) ID Date Data Source [id number] 03/04/2020 12:24:00 PM [facility] 1 General Instructions [facility] Emergency Department [address] [place] [address] Phone #: ext- [phone] 03/04/2020 11:58 Patient: JEREMI MALLOY Sex: F : 1955 Age: 64yDiarrhea.Dehydration.Hypomagnesemia.(Electronically signed by Natasha Montero MD 03/04/2020 19:40) Name Value Range Interpretation Code Description Data Miladys rce(s) Supporting Document(s) ID Date Data Source [id number] 03/04/2020 12:24:00 PM [facility] 1 Clinical Report - Nurses [facility] Emergency Department [address] [place] [address] Phone #: ext- [phone] 03/04/2020 11:58 Patient: JEREMI MALLOY Sex: F : 1955 Age: 64yTRIAGE Arrived by EMS. Historian: patient. Acuity: LEVEL 3. Chief Complaint: NAUSEA, VOMITING and DIARRHEA. Alert. No acute distress. Onset. (5 days ago). ( PATIENT IS 3 WEEKS S/P STEM CELL TRANSPLANT AT [facility]. PT HAS LYMPHOMA AND STATES SHE RECEIVED HER OWN STEM CELLS. ONCOLOGIST CONTACTED TODAY WHO ADVISED ER VISIT. PATIENT C/O DIZZINESS AND LIGHTHEADEDNESS STARTING 2 DAYS AGO.). No constipation, abdominal pain or fever. Last oral intake by patient was this morning (0400). 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 (UNABLE TO KEEP HER MEDICATIONS DOWN). EMS Treatment MACHINED [employer]S METAL SPRAYER: See EMS report. SEPSIS SCREEN: SEPSIS SCREEN [...] Ramos R.N. 2 Clinical Report - Nurses [facility] Emergency Department [address] [place] [address] Phone #: ext- [phone] 03/04/2020 11:58 Patient: [...] or Coronavirus. 3 Clinical Report - Nurses [facility] Emergency Department [address] [place] [address] Phone #: ext- [phone] 03/04/2020 11:58 Patient: [...] Rashid RN 4 Clinical Report - Nurses [facility] Emergency Department [address] [place] [address] Phone #: ext- [phone] 03/04 11:58 Patient: JEREMI MALLOY Sex: F [...] from radiology by stretcher with mask and cath lab radiology technician. --13: Hank Rashid RN13:15 03/04/20. BP: 127/93. MAP: 104. HR: 101. RR: 16. O2 saturation: 98%. Pain level now: 0/10.--13:15 03/04/20 KARUNA Parry:45 03/04/20. BP: 112/81. MAP: 91. HR: 96. RR: 18. O2 saturation: 96%. --15:44 03/04/20 [employer] [facility] Tcat327:15 03/04/20. BP: 128/77. MAP: 94. HR: 95. RR: 17. O2 saturation: 96%. --15:45 03/04/20 [employer] [facility] Lnxl882:45 03/04/20. BP: 136/84. MAP: 101. HR: 98. RR: 17. O2 saturation: 95%. --15:45 03/04/20 [employer] [facility] Irsg756:15 03/04/20. BP: 118/74. MAP: 88. HR: 99. RR: 17. O2 saturation: 95%. --15:46 03/04/20 [employer] [facility] Bovk685:44 03/04/2020 POTASSIUM CHLORIDE LIQUID PO PO Oral [...] Rashid RN 5 Clinical Report - Nurses [facility] Emergency Department [address] [place] [address] Phone #: ext- [phone] 03/04/2020 11:58 Patient: [...] DISCHARGE 18:40 03/04/20. Departure time: 18:40 03/04/2020. [employer] Coma Scale: 15- eyes open- spontaneous (4); [...] rce(s) Supporting Document(s) ID Date Data Source [id number] 03/04/2020 12:24:00 PM [facility] 1 Clinical Report - Physicians/Mid Levels [facility] Emergency Department [address] [place] [address] Phone #: ext- [phone] 03/04/2020 11:58 Patient: [...] 3 WEEKS S/P STEM CELL TRANSPLANT AT [facility]. PT HAS LYMPHOMA AND STATES SHE [...] REMOVAL. 2 Clinical Report - Physicians/Mid Levels [facility] Emergency Department [address] [place] [address] Phone #: ext- [phone] 03/04/2020 11:58 Patient: JEREMI MALLOYN: [id number] Sex: F : 1955 Age: 64y M [...] 0/10. 3 Clinical Report - Physicians/Mid Levels [facility] Emergency Department [address] [place] [address] Phone #: ext- [phone] 03/04/2020 11:58 [id number] Sex: F : 1955 Age: 64y105/05/2019 15:45 [...] (1.7 - 2.2)Phosphorus: (BERNADETTE: 03/04/2020 12:41) ( HigRcvd 03/04/2020 13:54) Final results Test Result Flag Units (Reference) PHOSPHORUS 4.0 MG/DL (2.5 - 4.5)Abdomen 1 View: (BERNADETTE: 03/04/2020 12:55) ( MsgRcvd 03/04/2020 14:04) In ProgressABDOMEN 1 VIEWReason(s): n/v/d r/o obstructionTRANSPORTATION: WC IV? Room: ED ED5C w Diff: (BERNADETTE: 03/04/2020 12:41) ( HigRcvd 03/04/2020 13:21) Final results Test Result Flag Units (Reference) 4 Clinical Report - Physicians/Mid Levels [facility] Emergency Department [address] [place] [address] Phone #: ext- [phone] 03/04/2020 11:58 ------ [...] Male GFR Interprentation 20-49 yrs >60 mL/min Gwgajd54-43 yrs >56 mL/min Normal 60-69 yrs >49 mL/min Normal 70-79yrs> 42 mL/min Normal 80 and above >35 mL/min Normal Female GFRInterpretation 20-39 yrs >60 mL/min Normal 40-49 yrs >58 mL/minNormal 50-59 yrs >51 mL/min Normal 60-69 yrs >45 mL/min Normal 5 Clinical Report - Physicians/Mid Levels [facility] Emergency Department [address] [place], [place] [address] Phone #: ext- [phone] 03/04/2020 11:58 Patient: JEREMI MALLOY MRN: [id number] Sex: F : 1955 Age: 64y 70-79 yrs >39 mL/min Normal 80 and above > 32 mL/min Normal Lactic Acid: (BERNADETTE: 03/04/2020 12:41) ( MsgRcvd 03/04/2020 13:05) Final results Test Result Flag Units (Reference) LACTIC ACID 3.4 H MMOL/L (0.2 - 2.2) LDH: (BERNADETTE: 03/04/2020 12:41) ( [facility] 03/04/[facility] 13:17) Final results Test Result Flag Units (Reference) LDH 304 H U/L (135 - 214) Lipase: (BERNADETTE: 03/04/2020 12:41) ( [facility] 03/04/2020 13:17) Final results Test Result Flag Units (Reference) LIPASE 13 U/L (13 - 60) Abdomen Multiview: (BERNADETTE: 03/04/2020 12:23) ( [facility] 03/04/2020 12:55) Canceled Reason(s): Abdominal Pain Reason(s): Abdominal Pain TRANSPORTATION: S IV? O2? Oxygen?(No) Room: ED.PROGRESS AND PROCEDURESCourse of Care: Pt is a 64 year old female who has multiple myeloma who had an autologous stem celltransfusion done in january at [facility]. She has done well. pt states [...] called and spoke to her doctor at [facility]. She agreed with care plan.I called and spoke to Kavya. she agreed to admit. pt comfortable with the plan to admit here [facility]. Patient/family counseled. Disposition: Admitted to the Acute Inpatient Unit, Monitored. Condition: good and stable.CLINICAL IMPRESSION Diarrhea. Dehydration. Hypomagnesemia. 6 Clinical Report - Physicians/Mid Levels [facility] Emergency Department [address] [place] [address] Phone #: ext- [phone] 03/04/2020 11:58 Patient: JEREMI MALLOY Sex: F : 1955 Age: 64y(Electronically signed by Natasha Montero MD 03/04/2020 19:40) Name Value Range Interpretation Code Description Data Miladys rce(s) Supporting Document(s) ID Date Data Source [id number] 03/04/2020 12:24:00 PM EST [facility] Addenda for JEREMI MALLOY VisitID: [id number] Date: 17:32MED REC REQUEST FAXED TO [employer] WITH PATIENTS MED LISTS [employer] OVERV[employer] @ [id number](Electronically signed by Moreno Pineda - 03/04/2020 17:32)03/04/2020 17:54OVERVIEW FAXED TO [facility] AT 9475. [facility] MADE AWARE(Electronically signed by Moreno Shrestha - 03/04/2020 17:54) Name Value Range Interpretation Code Description Data Miladys rce(s) Supporting Document(s) ID Date Data Source [id number] 03/04/2020 04:52:00 PM EST [facility] Name Value Range Interpretation Code Description Data Miladys rce(s) Supporting Document(s) COVID-19 [facility] This lab was ordered by [facility] and reported by [facility]. ID Date Data Source [id number] 03/04/2020 04:52:00 PM EST [facility] Name Value Range Interpretation Code Description Data Miladys rce(s) Supporting Document(s) COVID-19 [facility] This lab was ordered by [facility] and reported by [facility]. ID Date Data Source [id number] 03/04/2020 05:26:00 PM EST [facility] Name Value Range Interpretation Code Description Data Miladys rce(s) Supporting Document(s) COVID-19 NOT DETECTED [facility] COVID-19 REENTER NOT DETECTED [facility] { PROCEDURAL CONTROL VALID KIT LOT [...] PATIENT MANAGEMENT DECISIONS. ID Date Data Source [id number] 03/04/2020 04:33:00 PM [facility] Name Value Range Interpretation Code Description Data Miladys rce(s) Supporting Document(s) Magnesium [Mass/volume] in Serum or Plasma 1.3 MG/DL 1.7 - 2.2 L [facility] ID Date Data Source [id number] 03/04/2020 01:54:00 PM [facility] Name Value Range Interpretation Code Description Data Miladys rce(s) Supporting Document(s) Phosphate [Mass/volume] in Serum or Plasma 4.0 MG/DL 2.5 - 4.5 [facility] ID Date Data Source [id number] 03/04/2020 01:20:00 PM [facility] Name Value Range Interpretation Code Description Data Miladys rce(s) Supporting Document(s) CBC W/AUTOMATED DIFF [facility] COMPLETE BLOOD COUNT Leukocytes [#/volume] in Blood by Automated count 4.4 10^3/uL 4.2 - 1 1.0 [facility] Erythrocytes [#/volume] in Blood by Automated count 3.27 10^6/uL 4. 20 - 5.40 L [facility] Hemoglobin [Mass/volume] in Blood 11.1 g/dL 12.0 - 16.0 L [facility] Hematocrit [Volume Fraction] of Blood by Automated count 32.0 % 3 7.0 - 47.0 L [facility] Erythrocyte mean corpuscular volume [Entitic volume] by Auto mated count 97.9 fL 81.0 - 101 [facility] Erythrocyte mean corpuscular hemoglobin [Entitic mass] by Automated count 33.9 pg 27.0 - 34.0 [facility] Erythrocyte mean corpuscular hemoglobin concentration [Mass/volume] by Automated count 34.7 g/dL 31.0 - 36.0 [facility] Erythrocyte distribution width [Ratio] by Automated count 18.0 % 11.5 - 14.5 H [facility] Platelets [#/volume] in Blood by Automated count 111 10^3/uL 150 - 45 0 L [facility] Platelet mean volume [Entitic volume] in Blood by Automated count 10.5 fL 7.4 - 10.4 H [facility] Neutrophils/100 leukocytes in Blood by Automated count 74.3 % 37. 0 - 80.0 [facility] Lymphocytes/100 leukocytes in Blood by Manual count 12.6 % 25.0 - 40.0 L [facility] Monocytes/100 leukocytes in Blood by Automated count 11.0 % 3.0 - 8.0 H [facility] Eosinophils/100 leukocytes in Blood by Automated count 0.7 % 0.0 - 7.0 [facility] Basophils/100 leukocytes in Blood by Automated count 0.7 % 0.0 - 2.5 [facility] %IG 0.7 % 0.0 - 0.0 [facility] %[facility] 0.0 % 0.0 - 0.0 [facility] al Neutrophils [#/volume] in Blood by Automated count 3.26 10^3/uL 2.00 - 6.90 [facility] Lymphocytes [#/volume] in Blood by Automated count 0.55 10^3/uL 0.60 - 3.40 L [facility] Monocytes [#/volume] in Blood by Automated count 0.48 10^3/uL 0.00 - 0.90 [facility] Eosinophils [#/volume] in Blood by Automated count 0.03 10^3/uL 0.00 - 0.70 [facility] Basophils [#/volume] in Blood by Automated count 0.03 10^3/uL 0.00 - 0.20 [facility] #IG 0.03 10^3/uL 0.00 - 0.10 [facility] #NRBC 0.00 10^3/uL 0.00 - 0.00 [facility] MANUAL DIFF NOT INDICATED [facility] RBC MORPH NOT INDICATED [facility] spital ID Date Data Source [id number] 03/04/2020 01:17:00 PM [facility] Name Value Range Interpretation Code Description Data Miladys rce(s) Supporting Document(s) Lipase [Enzymatic activity/volume] in Serum or Plasma 13 U/L 13 - 60 [facility] ID Date Data Source [id number] 03/04/2020 01:17:00 PM EST [facility] Name Value Range Interpretation Code Description Data Miladys rce(s) Supporting Document(s) Lactate dehydrogenase [Enzymatic activity/volume] in Serum o r Plasma 304 U/L 135 - 214 H [facility] ID Date Data Source [id number] 03/04/2020 01:17:00 PM [facility] Name Value Range Interpretation Code Description Data Miladys rce(s) Supporting Document(s) COMPREHENSIVE METABOLIC PANEL [facility] COMPREHENSIVE METABOLIC PANEL Sodium [Moles/volume] in Serum or Plasma 142 mEq/L 134 - 153 [facility] Potassium [Moles/volume] in Serum or Plasma 3.0 mEq/L 3.6 - 5.0 L [facility] Chloride [Moles/volume] in Serum or Plasma 100 mEq/L 98 - 107 [facility] Carbon dioxide, total [Moles/volume] in Serum or Plasma 31 MEQ/L 22 - 30 H [facility] Glucose [Mass/volume] in Serum or Plasma 125 MG/DL 65 - 110 H [facility] BUN 20 MG/DL 7 - 21 [facility] Creatinine [Mass/volume] in Serum or Plasma 0.9 MG/DL 0.7 - 1.5 [facility] BUN/CREAT 22 8 - 27 [facility] Protein [Mass/volume] in Serum or Plasma 6.3 G/DL 6.3 - 8.2 [facility] Albumin [Mass/volume] in Serum or Plasma 4.0 G/DL 3.9 - 5.0 [facility] Globulin [Mass/volume] in Serum by calculation 2.3 GM/DL 2.4 - 3.2 L [facility] A/G RATIO 1.7 0.8 - 2.0 [facility] al Calcium [Mass/volume] in Serum or Plasma 9.1 MG/DL 8.4 - 10.2 [facility] Bilirubin.total [Mass/volume] in Serum or Plasma 0.8 MG/DL 0.2 - 1.3 [facility] Alkaline phosphatase [Enzymatic activity/volume] in Serum or Plasma 87 U/L 38 - 126 [facility] Aspartate aminotransferase [Enzymatic activity/volume] in Se rum or Plasma 9 U/L 5 - 40 [facility] Alanine aminotransferase [Enzymatic activity/volume] in Seru m or Plasma 10 U/L 7 - 56 [facility] Anion gap 3 in Serum or Plasma 11.0 mmol/L 8.0 - 16.0 [facility]GE 64 [facility] >60 mL/min [facility] ital AFR AMER GFR >60 [facility] Male GFR In terprentation [...] >32 mL/min Normal ID Date Data Source [id number] 03/04/2020 01:04:00 PM EST [facility] Name Value Range Interpretation Code Description Data Miladys rce(s) Supporting Document(s) Lactate [Moles/volume] in Serum or Plasma 3.4 MMOL/L 0.2 - 2.2 H [facility] ID Date Data Source [id number] 01/29/2020 12:00:00 AM EST [facility] Name Value Range Interpretation Code Description Data Miladys rce(s) Supporting Document(s) SARS coronavirus 2 RNA panel N [id number] This lab was ordered by [facility] C19 TEST [facility] and reported by [facility]. Procedure Social History Code Duration Value Status Description Data Source(s ) Smoking 12/23/2020 12:00:00 AM EDT Former Smoker completed Former Smoker eCW1 ([facility]) Smoking 11/30/2020 12:00:00 AM EDT Former Smoker completed Former Smoker eCW1 ([facility]) Smoking 11/30/2020 12:00:00 AM EDT Former Smoker completed Former Smoker eCW1 ([facility]) Smoking 11/30/2020 12:00:00 AM EDT Former Smoker completed Former Smoker eCW1 ([facility]) Smoking 09/22/2020 12:00:00 AM EDT Former Smoker completed Former Smoker eCW1 ([facility]) Smoking 09/22/2020 12:00:00 AM EDT Former Smoker completed Former Smoker eCW1 ([facility]) Smoking 09/22/2020 12:00:00 AM EDT Former Smoker completed Former Smoker eCW1 ([facility]) Alcohol intake 08/31/2020 12:00:00 AM EDT Ex-drinker (finding) comp leted Ex- drinker (finding) [facility] Smoking 06/11/2020 12:00:00 AM EDT Former Smoker completed Former Smoker eCW1 ([facility]) Smoking 06/11/2020 12:00:00 AM EDT Former Smoker completed Former Smoker eCW1 ([facility]) Alcohol intake 05/28/2020 12:00:00 AM EDT Not Currently completed [facility] Smoking 05/28/2020 12:00:00 AM EDT Former smoker completed Former smoker [facility] Smoking 05/15/2020 12:00:00 AM EST Former Smoker completed Former Smoker eCW1 ([facility]) Smoking 05/15/2020 12:00:00 AM EST Former Smoker completed Former Smoker eCW1 ([facility]) Alcohol intake 05/06/2020 12:00:00 AM EST Not Currently completed [facility] Smoking 05/06/2020 12:00:00 AM EST Former smoker completed Former smoker [facility] Smoking 04/24/2020 12:00:00 AM EST Former Smoker completed Former Smoker eCW1 ([facility]) Smoking 04/24/2020 12:00:00 AM EST Former Smoker completed Former Smoker eCW1 ([facility]) Smoking 04/24/2020 12:00:00 AM EST Former Smoker completed Former Smoker eCW1 ([facility]) Smoking 04/09/2020 12:00:00 AM EST Former Smoker completed Former Smoker eCW1 ([facility]) Smoking 04/09/2020 12:00:00 AM EST Former Smoker completed Former Smoker eCW1 ([facility]) Smoking 04/09/2020 12:00:00 AM EST Former Smoker completed Former Smoker eCW1 ([facility]) Smoking 04/09/2020 12:00:00 AM EST Former Smoker completed Former Smoker eCW1 ([facility]) Alcohol intake 04/08/2020 12:00:00 AM EST Not Currently completed [facility] Smoking 04/08/2020 12:00:00 AM EST Former smoker completed Former smoker [facility] Smoking 03/24/2020 12:00:00 AM EST Former Smoker completed Former Smoker eCW1 ([facility]) Smoking 03/24/2020 12:00:00 AM EST Former Smoker completed Former Smoker eCW1 ([facility]) Smoking 03/24/2020 12:00:00 AM EST Former Smoker completed Former Smoker eCW1 ([facility]) Smoking 03/24/2020 12:00:00 AM EST Former Smoker completed Former Smoker eCW1 ([facility]) Smoking 03/24/2020 12:00:00 AM EST Former Smoker completed Former Smoker eCW1 ([facility]) Vital Signs ID Date Data Source [id number] Name Value Range Interpretation Code Description Data Source(s) Body weight 210 [lb_av] 210 [lb_av] eCW1 ([facility]) Body height 64.5 [in_i] 64.5 [in_i] eCW1 ([facility]) Body mass index (BMI) [Ratio] 35.49 kg/m2 35.49 kg/m2 eCW1 ([facility]) Heart rate 78 /min 78 /min eCW1 ([facility]) Respiratory rate 18 /min 18 /min eCW1 ([facility]) Body temperature 97.1 [degF] 97.1 [degF] eCW1 ( [facility]) Systolic blood pressure 136 mm[Hg] 136 mm[Hg] e CW1 ([facility]) Diastolic blood pressure 80 mm[Hg] 80 mm[Hg] eCW1 ([facility]) Body weight 199 [lb_av] 199 [lb_av] eCW1 ([facility]) Body height 64.5 [in_i] 64.5 [in_i] eCW1 ([facility]) Body mass index (BMI) [Ratio] 33.63 kg/m2 33.63 kg/m2 eCW1 ([facility]) Heart rate 88 /min 88 /min eCW1 ([facility]) Respiratory rate 18 /min 18 /min eCW1 ([facility]) Body temperature 96 [degF] 96 [degF] eCW1 ([facility]) Systolic blood pressure 122 mm[Hg] 122 mm[Hg] e CW1 ([facility]) Diastolic blood pressure 70 mm[Hg] 70 mm[Hg] eCW1 ([facility]) Body weight 196 [lb_av] 196 [lb_av] eCW1 ([facility]) Body height 64.5 [in_i] 64.5 [in_i] eCW1 ([facility]) Body mass index (BMI) [Ratio] 33.12 kg/m2 33.12 kg/m2 eCW1 ([facility]) Heart rate 75 /min 75 /min eCW1 ([facility]) Respiratory rate 18 /min 18 /min eCW1 ([facility]) Systolic blood pressure 130 mm[Hg] 130 mm[Hg] e CW1 ([facility]) Body temperature 97.2 [degF] 97.2 [degF] eCW1 ( [facility]) Diastolic blood pressure 80 mm[Hg] 80 mm[Hg] eCW1 ([facility]) Systolic blood pressure 104 mm[Hg] 104 mm[Hg] [facility] Diastolic blood pressure 58 mm[Hg] 58 mm[Hg] [facility] Heart rate 65 /min 65 /min [facility] Respiratory rate 12 /min 12 /min [facility] Body height 162.6 cm 162.6 cm [facility] Body weight 88.905 kg 88.905 kg [facility] Body mass index (BMI) [Ratio] 33.64 kg/m2 33.64 kg/m2 [facility] Oxygen saturation in Arterial blood by Pulse oximetry 97 % 97 % [facility] Systolic blood pressure 135 mm[Hg] 135 mm[Hg] M EDENT ([facility], ) Diastolic blood pressure 77 mm[Hg] 77 mm[Hg] [facility] Body height 62.50 [in_i] 62.50 [in_i] [facility] ([facility]) 5'2.50" Body weight 185.00 [lb_av] 185.00 [lb_av] MEDEN T ([facility]) Body mass index (BMI) [Ratio] 33.3 kg/m2 33.3 k g/m2 [facility] ([facility]) [place] body weight 110 [lb_av] 110 [lb_av] MEDEN T ([facility]) Body weight 83.916 kg 83.916 kg [facility] ([facility]) Body surface area Derived from formula 1.86 m2 1.86 m2 [facility] Body weight 182 [lb_av] 182 [lb_av] eCW1 ([facility]) Body height 64.5 [in_i] 64.5 [in_i] eCW1 ([facility]) Body mass index (BMI) [Ratio] 30.75 kg/m2 30.75 kg/m2 [facility] ([facility]) Heart rate 69 /min 69 /min eCW1 ([facility]) Respiratory rate 18 /min 18 /min eCW1 ([facility]) Body temperature 96.9 [degF] 96.9 [degF] eCW1 ( [facility]) Systolic blood pressure 128 mm[Hg] 128 mm[Hg] e CW1 ([facility]) Diastolic blood pressure 82 mm[Hg] 82 mm[Hg] eCW1 ([facility]) Systolic blood pressure 140 mm[Hg] 140 mm[Hg] [facility] Diastolic blood pressure 68 mm[Hg] 68 mm[Hg] [facility] Heart rate 78 /min 78 /min [facility] Body height 165.1 cm 165.1 cm [facility] Body weight 82.555 kg 82.555 kg [facility] Body mass index (BMI) [Ratio] 30.29 kg/m2 30.29 kg/m2 [facility] Oxygen saturation in Arterial blood by Pulse oximetry 97 % 97 % [facility] Body weight 184 [lb_av] 184 [lb_av] W1 ([facility]) Body height 64.5 [in_i] 64.5 [in_i] W1 ([facility]) Body mass index (BMI) [Ratio] 31.09 kg/m2 31.09 kg/m2 W1 ([facility]) Heart rate 78 /min 78 /min eCW1 ([facility]) Respiratory rate 18 /min 18 /min eCW1 ([facility]) Body temperature 97.9 [degF] 97.9 [degF] eCW1 ( [facility]) Systolic blood pressure 130 mm[Hg] 130 mm[Hg] e CW1 ([facility]) Diastolic blood pressure 82 mm[Hg] 82 mm[Hg] eCW1 ([facility]) Systolic blood pressure 118 mm[Hg] 118 mm[Hg] [facility] Diastolic blood pressure 80 mm[Hg] 80 mm[Hg] [facility] Heart rate 73 /min 73 /min [facility] Body weight 82.101 kg 82.101 kg [facility] Body mass index (BMI) [Ratio] 30.12 kg/m2 30.12 kg/m2 [facility] Oxygen saturation in Arterial blood by Pulse oximetry 97 % 97 % [facility] Body weight 178 [lb_av] 178 [lb_av] eCW1 ([facility]) Body height 64.5 [in_i] 64.5 [in_i] eCW1 ([facility]) Body mass index (BMI) [Ratio] 30.08 kg/m2 30.08 kg/m2 W1 ([facility]) Heart rate 86 /min 86 /min eCW1 ([facility]) Respiratory rate 18 /min 18 /min eCW1 ([facility]) Body temperature 97.6 [degF] 97.6 [degF] eCW1 ( [facility]) Systolic blood pressure 100 mm[Hg] 100 mm[Hg] e CW1 ([facility]) Diastolic blood pressure 70 mm[Hg] 70 mm[Hg] eCW1 ([facility]) Body weight 182 [lb_av] 182 [lb_av] eCW1 ([facility]) Body height 64.5 [in_i] 64.5 [in_i] eCW1 ([facility]) Body mass index (BMI) [Ratio] 30.75 kg/m2 30.75 kg/m2 eCW1 ([facility]) Heart rate 73 /min 73 /min eCW1 ([facility]) Respiratory rate 18 /min 18 /min eCW1 ([facility]) Body temperature 96.9 [degF] 96.9 [degF] eCW1 ( [facility]) Systolic blood pressure 100 mm[Hg] 100 mm[Hg] e CW1 ([facility]) Diastolic blood pressure 60 mm[Hg] 60 mm[Hg] eCW1 ([facility]) Systolic blood pressure 130 mm[Hg] 130 mm[Hg] [facility] Diastolic blood pressure 90 mm[Hg] 90 mm[Hg] [facility] Body height 165.1 cm 165.1 cm [facility] Body weight 81.647 kg 81.647 kg [facility] Body mass index (BMI) [Ratio] 29.95 kg/m2 29.95 kg/m2 [facility] Oxygen saturation in Arterial blood by Pulse oximetry 96 % 96 % [facility] Body weight 190 [lb_av] 190 [lb_av] eCW1 ([facility]) Body height 64.5 [in_i] 64.5 [in_i] W1 ([facility]) Body mass index (BMI) [Ratio] 32.11 kg/m2 32.11 kg/m2 eCW1 ([facility]) Heart rate 97 /min 97 /min eCW1 ([facility]) Respiratory rate 18 /min 18 /min eCW1 ([facility]) Body temperature 97.2 [degF] 97.2 [degF] eCW1 ( [facility]) Systolic blood pressure 150 mm[Hg] 150 mm[Hg] e CW1 ([facility]) Diastolic blood pressure 84 mm[Hg] 84 mm[Hg] eCW1 ([facility]) ID Date Data Source [id number] 03/20/2020 04:26:05 PM EST [facility] Name Value Range Interpretation Code Description Data Source(s) WEIGHT RECORDED 188.01 pounds 188.01 pounds [facility] Height 64 Inches 064 Inches [facility] WEIGHT RECORDED 188.01 pounds 188.01 pounds [facility] Height 64 Inches 064 Inches [facility] Patient Treatment Plan of Care Planned Activity Planned Date Details Description Data Source (s) pregabalin 25 MG Oral Capsule 12/23/2020 12:00:00 AM EDT eCW1 ([facility]) gabapentin 100 MG Oral Capsule 12/09/2020 12:00:00 AM EDT eCW1 ([facility]) gabapentin 100 MG Oral Capsule 12/09/2020 12:00:00 AM EDT eCW1 ([facility]) duloxetine 30 MG Delayed Release Oral Capsule 11/30/2020 12:00:00 A M EDT eCW1 ([facility]) atorvastatin 10 MG Oral Tablet 07/21/2020 12:00:00 AM EDT [facility] torsemide 20 MG Oral Tablet 05/28/2020 12:00:00 AM EDT [facility] Azelastine HCl 0.1 % 05/15/2020 12:00:00 AM EST eCW1 ([facility]) Azelastine HCl 0.1 % 05/15/2020 12:00:00 AM EST eCW1 ([facility]) Azelastine HCl 0.1 % 05/15/2020 12:00:00 AM EST eCW1 ([facility]) Azelastine HCl 0.1 % 05/15/2020 12:00:00 AM EST eCW1 ([facility]) Azelastine HCl 0.1 % 05/15/2020 12:00:00 AM EST eCW1 ([facility]) Azelastine HCl 0.1 % 05/15/2020 12:00:00 AM EST eCW1 ([facility]) Azelastine HCl 0.1 % 05/15/2020 12:00:00 AM EST eCW1 ([facility]) Sodium Chloride 0.111 MEQ/ML Nasal Solution 05/06/2020 12:00:00 AM EST [facility] Metoprolol Tartrate 25 MG Oral Tablet 05/06/2020 12:00:00 AM EST [facility] Fludrocortisone 0.1 MG Oral Tablet 05/01/2020 12:00:00 AM EST [facility] atorvastatin 10 MG Oral Tablet 04/13/2020 12:00:00 AM EST [facility] Blood Pressure Cuff - 04/09/2020 12:00:00 AM EST eCW1 ([facility]) diphenhydrAMINE-Zinc Acetate 1-0.1 % 04/09/2020 12:00:00 AM EST eCW1 ([facility]) diphenhydrAMINE-Zinc Acetate 1-0.1 % 04/09/2020 12:00:00 AM EST eCW1 ([facility]) Blood Pressure Cuff - 04/09/2020 12:00:00 AM EST eCW1 ([facility]) diphenhydrAMINE-Zinc Acetate 1-0.1 % 04/09/2020 12:00:00 AM EST eCW1 ([facility]) Blood Pressure Cuff - 04/09/2020 12:00:00 AM EST eCW1 ([facility]) Potassium Chloride 20 MEQ Extended Release Oral Tablet 04/09/2020 12:00:00 AM EST [facility] Blood Pressure Cuff - 04/09/2020 12:00:00 AM EST eCW1 ([facility]) Diphenhydramine-Zinc Acetate 1-0.1 % 04/09/2020 12:00:00 AM EST eCW1 ([facility]) Blood Pressure Cuff - 04/09/2020 12:00:00 AM EST eCW1 ([facility]) Diphenhydramine-Zinc Acetate 1-0.1 % 04/09/2020 12:00:00 AM EST eCW1 ([facility]) Blood Pressure Cuff - 04/09/2020 12:00:00 AM EST eCW1 ([facility]) Diphenhydramine-Zinc Acetate 1-0.1 % 04/09/2020 12:00:00 AM EST eCW1 ([facility]) Blood Pressure Cuff - 04/09/2020 12:00:00 AM EST eCW1 ([facility]) Diphenhydramine-Zinc Acetate 1-0.1 % 04/09/2020 12:00:00 AM EST eCW1 ([facility]) Metoprolol Tartrate 25 MG Oral Tablet 03/27/2020 12:00:00 AM EST eCW1 ([facility]) Metoprolol Tartrate 25 MG Oral Tablet 03/27/2020 12:00:00 AM EST eCW1 ([facility]) Metoprolol Tartrate 25 MG Oral Tablet 03/27/2020 12:00:00 AM EST eCW1 ([facility]) Metoprolol Tartrate 25 MG Oral Tablet 03/27/2020 12:00:00 AM EST eCW1 ([facility]) Hydralazine Hydrochloride 10 MG Oral Tablet 03/27/2020 12:00:00 AM EST eCW1 ([facility]) Metoprolol Tartrate 25 MG Oral Tablet 03/27/2020 12:00:00 AM EST eCW1 ([facility]) Potassium Chloride 20 MEQ Extended Release Oral Tablet 03/27/2020 12:00:00 AM EST eCW1 ([facility]) Hydralazine Hydrochloride 10 MG Oral Tablet 03/27/2020 12:00:00 AM EST eCW1 ([facility]) Metoprolol Tartrate 25 MG Oral Tablet 03/27/2020 12:00:00 AM EST eCW1 ([facility]) Potassium Chloride 20 MEQ Extended Release Oral Tablet 03/27/2020 12:00:00 AM EST eCW1 ([facility]) Hydralazine Hydrochloride 10 MG Oral Tablet 03/27/2020 12:00:00 AM EST eCW1 ([facility]) Metoprolol Tartrate 25 MG Oral Tablet 03/27/2020 12:00:00 AM EST eCW1 ([facility]) Metoprolol Tartrate 25 MG Oral Tablet 03/27/2020 12:00:00 AM EST eCW1 ([facility]) Potassium Chloride 20 MEQ Extended Release Oral Tablet 03/27/2020 12:00:00 AM EST eCW1 ([facility]) Potassium Chloride 20 MEQ Extended Release Oral Tablet 03/27/2020 12:00:00 AM EST eCW1 ([facility]) Hydralazine Hydrochloride 10 MG Oral Tablet 03/27/2020 12:00:00 AM EST eCW1 ([facility]) Metoprolol Tartrate 25 MG Oral Tablet 03/27/2020 12:00:00 AM EST eCW1 ([facility]) Hydralazine Hydrochloride 10 MG Oral Tablet 03/27/2020 12:00:00 AM EST eCW1 ([facility]) Potassium Chloride 20 MEQ Extended Release Oral Tablet 03/27/2020 12:00:00 AM EST eCW1 ([facility]) Metoprolol Tartrate 25 MG Oral Tablet 03/27/2020 12:00:00 AM EST eCW1 ([facility]) Hydralazine Hydrochloride 10 MG Oral Tablet 03/27/2020 12:00:00 AM EST eCW1 ([facility]) Potassium Chloride 20 MEQ Extended Release Oral Tablet 03/27/2020 12:00:00 AM EST eCW1 ([facility]) Metoprolol Tartrate 25 MG Oral Tablet 03/27/2020 12:00:00 AM EST eCW1 ([facility]) Hydralazine Hydrochloride 10 MG Oral Tablet 03/27/2020 12:00:00 AM EST eCW1 ([facility]) Potassium Chloride 20 MEQ Extended Release Oral Tablet 03/27/2020 12:00:00 AM EST eCW1 ([facility]) Metoprolol Tartrate 25 MG Oral Tablet 03/27/2020 12:00:00 AM EST eCW1 ([facility]) potassium chloride SA (K-DUR,KLOR-CON) 20 MEQ tablet 021 12:00:00 AM EST [facility] Metoprolol Tartrate 25 MG Oral Tablet 03/15/2020 12:00:00 AM EST [facility] pantoprazole 40 MG Delayed Release Oral Tablet 03/15/2020 12:00:00 AM EST [facility] Losartan Potassium 25 MG Oral Tablet 02/20/2020 12:00:00 AM EST [facility] Ondansetron 4 MG Oral Tablet 02/15/2020 12:00:00 AM EST [facility] Morphine Sulfate 15 MG Oral Tablet 01/08/2020 12:00:00 AM EDT [facility] torsemide 100 MG Oral Tablet 09/25/2019 12:00:00 AM EDT [facility] Hydroxyzine Hydrochloride 25 MG Oral Tablet 09/23/2019 12:00:00 AM EDT [facility] atorvastatin 80 MG Oral Tablet 09/20/2019 12:00:00 AM EDT [facility] Dexamethasone 4 MG Oral Tablet 08/17/2019 12:00:00 AM EDT [facility] pomalidomide 2 MG Oral Capsule 08/01/2019 12:00:00 AM EDT [facility] tramadol hydrochloride 50 MG Oral Tablet 07/15/2019 12:00:00 AM EDT [facility] Acyclovir 400 MG Oral Tablet 07/13/2019 12:00:00 AM EDT [facility] Potassium Chloride 10 MEQ Extended Release Oral Capsul e 11/18/2015 12:00:00 AM EDT [facility] Losartan Potassium 100 MG Oral Tablet 11/18/2015 12:00:00 AM EDT [facility] Furosemide 40 MG Oral Tablet 10/22/2008 12:00:00 AM EDT [facility] torsemide 20 MG Oral Tablet [facility] Aspirin 81 MG Delayed Release Oral Tablet [facility] Hydralazine Hydrochloride 10 MG Oral Tablet [facility] Loperamide Hydrochloride 2 MG Oral Capsule [facility] Docusate Sodium 100 MG Oral Capsule [facility] docosahexaenoic acid 120 MG / Eicosapentaenoic Acid 180 MG Oral Cap litzy [facility] Colchicine 0.6 MG Oral Tablet [facility]
[2021-02-22 16:27] LABS: BASO % 0.2 % (0.0-1.0); EOS # 0.1 10^3/uL (0.0-0.5); EOS % 2.8 % (0.0-3.0); HEMATOCRIT 38.4 % (36.0-47.0); LYMPH # 0.6 10^3/uL (1.5-5.0); LYMPH % 11.2 % (24.0-44.0); MEAN CORPUSCULAR HEMOGLOBIN 31.6 pg (27.0-33.0); MEAN CORPUSCULAR HGB CONC 33.9 g/dl (32.0-36.5); MEAN CORPUSCULAR VOLUME 93.2 fl (80.0-96.0); MONO # 0.2 10^3/uL (0.0-0.8); MONO % 4.5 % (2.0-8.0); NEUTROPHILS % 80.9 % (36.0-66.0); RED BLOOD COUNT 4.12 10^6/uL (4.00-5.40); WHITE BLOOD COUNT 4.9 10^3/uL (4.0-10.0)
[2021-02-22 16:50] LABS: ALBUMIN 3.7 GM/DL (3.2-5.2); ALT/SGPT 45 U/L (12-78); BILIRUBIN,DIRECT 0.2 MG/DL (0.0-0.2); BILIRUBIN,TOTAL 0.6 MG/DL (0.2-1.0); LIPASE 431 U/L (73-393); MAGNESIUM LEVEL 1.7 MG/DL (1.8-2.4); PHOSPHORUS LEVEL 2.9 MG/DL (2.5-4.9); TOTAL PROTEIN 7.2 GM/DL (6.4-8.2)
[2021-02-22 16:52] LABS: PLATELET COUNT, AUTOMATED 45 10^3/uL (150-450)
[2021-02-22] MEDS ORDERED: ISOVUE-370 76% 100ML VIAL As Ordered ONE (16:58)
[2021-02-22] MEDS ORDERED: KCL 10MEQ/100ML SWI (KRUN) 10 MEQ in IV 1 EA IV ONE ×2 (17:05→17:45)
[2021-02-22] MEDS ORDERED: MAG SULF 1GM/100ML (MAG RUN) 1 GM in IV 1 EA IV ONE (17:05)
[2021-02-22] MEDS ORDERED: POTASSIUM CHLORIDE 10MEQ SR TABLET PO ONE ×2 (17:15→17:45)
[2021-02-22 17:26] LABS: BLOOD UREA NITROGEN 33 MG/DL (7-18); CALCIUM LEVEL 8.9 MG/DL (8.8-10.2); CARBON DIOXIDE LEVEL 24 MEQ/L (21-32); CHLORIDE LEVEL 104 MEQ/L (98-107); CREATININE FOR GFR 0.98 MG/DL (0.55-1.30); GLOMERULAR FILTRATION RATE > 60.0 (>45); GLUCOSE, FASTING 135 MG/DL (70-100); POTASSIUM SERUM 2.7 MEQ/L (3.5-5.1); SODIUM LEVEL 141 MEQ/L (136-145)
[2021-02-22] MEDS ORDERED: MAGNESIUM OXIDE 400MG TAB (MAG-OX) PO ONE (17:45)
--- NOTE | 2021-02-22 17:55 | HPEPDOC ---
General Date of Admission 02/22/21 Date of Service: Feb 22, 2021 Chief Complaint The patient is a 65-year-old female admitted with a reason for visit of Weakness. Source: Patient History of Present Illness Patient 65 years old female with past medical history of multiple myeloma currently on the therapy with bortezomib since 2019, hypertension, osteoarthritis, gout, hyperlipidemia, type 2 diabetes presented to hospital with moderate abdominal pain and diarrhea. Patient stated that 3 to 4 days ago she developed multiple episodes of diarrhea with diffuse abdominal pain, 5 out of 10. She denied any vomiting but stated that she has constant nausea. She denied fever, chills, chest pain, palpitations, dysuria. In ER patient was found to have no leukocytosis, platelet count of 45, potassium 2.7 magnesium 1.7. EKG negative for acute ischemic changes. Home Medications Scheduled Acyclovir (Acyclovir) 400 Mg Tablet, 400 MG PO BID Allopurinol (Allopurinol) 100 Mg Tablet, 2 TAB PO DAILY, (Reported) Aspirin (Ecotrin) 81 Mg Tablet.dr, 1 TAB PO DAILY for pain, (Reported) Atorvastatin Calcium (Atorvastatin Calcium) 10 Mg Tablet, 10 MG PO DAILY, (Reported) Colchicine (Colchicine) 0.6 Mg Tablet, 1 TAB PO DAILYPRN, (Reported) Lenalidomide (Revlimid) 5 Mg Capsule, 1 CAP PO ASDIRECTED take for 21 days, then take 7 days off Losartan Potassium (Losartan Potassium) 100 Mg Tablet, 100 MG PO QPM, (Reported) Magnesium Oxide (Magnesium Oxide) 400 Mg Tablet, 1 TAB PO BID for constipation, (Reported) Metoprolol Tartrate (Metoprolol Tartrate) 25 Mg Tablet, 12.5 MG PO BID, (Reported) Pantoprazole Sodium (Pantoprazole Sodium) 40 Mg Tablet.dr, 40 MG PO BID, (Reported) Potassium Chloride (Potassium Chloride) 20 Meq Tab.er.prt, 1 CAP PO BID, (Reported) Prochlorperazine Maleate (Prochlorperazine Maleate) 10 Mg Tablet, 10 MG PO Q6H Torsemide (Torsemide) 20 Mg Tablet, 20 MG PO DAILY, (Reported) Scheduled PRN Oxycodone HCl/Acetaminophen (Oxycodone-Acetaminophen 5-325) 1 Each Tablet, 1 TAB PO TIDP PRN for pain Tramadol HCl (Tramadol HCl) 50 Mg Tablet, 1 TAB PO PRN PRN for pain Allergies Coded Allergies: Penicillins (Verified Allergy, Severe, THROAT SWELLING/RASH, 08/07/20) duloxetine (Verified Allergy, Severe, Facial Swelling, Rash, 08/07/20) Quinolones (Verified Allergy, Intermediate, hives, 08/07/20) carisoprodol (Verified Allergy, Intermediate, hives, 08/07/20) ciprofloxacin (Verified Allergy, Intermediate, SCRATCHY THROAT, 08/07/20) doxycycline (Verified Allergy, Intermediate, HIVES, 08/07/20) gabapentin (Verified Allergy, Intermediate, hives, 08/07/20) spironolactone (Verified Allergy, Intermediate, hives, 08/07/20) amitriptyline (Verified Adverse Reaction, Intermediate, "PASS OUT", 08/07/20) ibuprofen (Verified Adverse Reaction, Intermediate, renal issues, 08/07/20) metformin (Verified Adverse Reaction, Intermediate, DIARRHEA, 08/07/20) Past Medical History Medical History HTN - DR. CHO LOWER EXTREMITY EDEMA/FACIAL EDEMA - DR. CHAO/DR. CHO OSTEOARTHRITIS (C-SPINE, LS SPINE) CHRONIC LOW BACK PAIN WITH RADICULITIS (KNOWN DDD OF LS SPINE) DR. BENITEZ, ORTHO IN [place] INSOMNIA H/O DEPRESSION IN REMOTE PAST GERD ALLERGIC RHINITIS RHEUMATOID ARTHRITIS - FOLLOWS IN [place] GOUT COPD: DR. STEINBERG HYPERLIPIDEMIA FIBROMYALGIA DIABETES MELLITUS TYPE 2 - DIET CONTROLLED NAM - USES CPAP MULTIPLE MYELOMA - [facility], [facility] ONC Surgical History HYSTERECTOMY FOR MENORRHAGIA 2000 CHOLECYSTECTOMY 1999 THYROIDECTOMY, PARITAL 2003 REMOVAL OF KIDNEY STONE COLONOSCOPY 10/[address] COLIN 12/29/2015 RIGHT WRIST LUMP REMOVED 09/2016 COLONOSCOPY - TUBULAR ADENOMAS REMOVED; DR. HOWARD 11/2016 EGD - ESOPHAGITIS, GASTRISITS; DR. COLIN 02/2019 COLONOSCOPY - DIVERTICULOSIS WITH PERIDIVERTICULAR ERYTHEMA, BIOPSY PENDING; DR. HOWARD 08/2020 Family History FATHER: , HEART DISEASE MOTHER: ALIVE, HTN/HYPERLIPIDIMIA SIBLINGS: ALIVE, 1 BROTHER [place] AT AGE 40, ALL SISTER HAVE SOME GENETIC BONE DISEASE SON(S): NO KNOWN MEDICAL PROBLEMS DAUGHTER(S): NO KNOWN MEDICAL PROBLEMS PATERNAL GRAND FATHER: UNKNOWN PATERNAL GRAND MOTHER: UNKNOWN MATERNAL GRAND FATHER: UNKNOWN MATERNAL GRAND MOTHER: UNKNOWN 2 BROTHER(S) , 3 SISTER(S) - HEALTHY. 4 SON(S) , 1 DAUGHTER(S) - HEALTHY. NO KNOWN FAMILY HISTORY OF BREAST OR COLON CANCER. PASSED. Social History * Smoker: former Smoker Alcohol: Denies Drugs: denies A-FIB/CHADSVASC A-FIB History Current/History of A-Fib/PAF?: No Current PO Anticoag Therapy: No Review of Systems Constitutional: Denies: Chills, Fever Eyes: Denies: Pain ENT: Denies: Head Aches Skin: Denies: Rash, Lesions Pulmonary: Denies: Dyspnea Cardiovascular: Denies: Chest Pain Gastrointestinal: Reports: Nausea, Abdominal Pain, Diarrhea; Denies: Vomiting Genitourinary: Denies: Dysuria Hematologic: Denies: Bruising Endocrine: Denies: Polydipsia Musculoskeletal: Denies: Neck Pain Neurological: Denies: Weakness Psych: Reports: Mood Normal Physical Examination General Exam: Positive: Alert, Cooperative Eye Exam: Positive: PERRLA ENT Exam: Positive: Atraumatic Neck Exam: Positive: Supple; Negative: JVD Chest Exam: Positive: Clear to auscultation Heart Exam: Positive: Rate Normal Telemetry: Positive: No significant arrhythmia Abdomen Exam: Positive: BS Hyperactive, Tenderness (Moderate diffuse, no rebound) Extremity Exam: Negative: Clubbing Skin Exam: Positive: Nl turgor and temperature Neuro Exam: Positive: Cranial Nerves 3-12 NL Psych Exam: Positive: Oriented x 3 Vital Signs Vital Signs Date Time Temp Pulse Resp B/P (MAP) Pulse Ox O2 Delivery O2 Flow Rate FiO2 02/22/21 16:40 96.9 82 17 137/77 (97) 96 Room Air Laboratory Data Labs 24H Laboratory Tests 2 02/22/21 15:15: Immature Granulocyte % (Auto) 0.4, Neutrophils (%) (Auto) 80.9H, Lymphocytes (%) (Auto) 11.2L, Monocytes (%) (Auto) 4.5, Eosinophils (%) (Auto) 2.8, Basophils (%) (Auto) 0.2, Neutrophils # (Auto) 4.0, Lymphocytes # (Auto) 0.6L, Monocytes # (Auto) 0.2, Eosinophils # (Auto) 0.1, Basophils # (Auto) 0.0, Nucleated Red Blood Cells % (auto) 0.0, Immature Platelet Fraction 8.2, Anion Gap 13, Glomerular Filtration Rate > 60.0, Calcium Level 8.9, Phosphorus Level 2.9, Magnesium Level 1.7L, Total Bilirubin 0.6, Direct Bilirubin 0.2, Aspartate Amino Transf (AST/SGOT) 18, Alanine Aminotransferase (ALT/SGPT) 45, Alkaline Phosphatase 81, Total Protein 7.2, Albumin 3.7, Albumin/Globulin Ratio 1.1L, Lipase 431H 02/22/21 15:49: 02/22/21 16:00: POC Glucose (Misc Panel) 136H, POC Sodium (Misc Panel) 140, POC Potassium (Misc Panel) 2.7*L, POC Chloride (Misc Panel) 104, POC Total CO2 (Misc Panel) 23.0, POC Blood Urea Nitrogen (Misc Panel 31H, POC Ionized Calcium (Misc Panel) 4.5, POC Creatinine (Misc Panel) 1.0, POC Hematocrit (Misc Panel) 39.0 02/22/21 17:14: Influenza A Immunofluorescence NEGATIVE, Influenza B Immunofluorescence NEGATIVE, SARS Antigen (LFIA) NEGATIVE 02/22/21 17:17: CBC/BMP Laboratory Tests 02/22/21 15:15 Assessment/Plan Patient 65 years old female with past medical history of multiple myeloma currently on the therapy with bortezomib since 2019, hypertension, osteoarthritis, gout, hyperlipidemia, type 2 diabetes presented to hospital with moderate abdominal pain and diarrhea. Patient stated that 3 to 4 days ago she developed multiple episodes of diarrhea with diffuse abdominal pain, 5 out of 10. She denied any vomiting but stated that she has constant nausea. She denied fever, chills, chest pain, palpitations, dysuria. In ER patient was found to have no leukocytosis, platelet count of 45, potassium 2.7 magnesium 1.7. EKG negative for acute ischemic changes. Problems (1) Diarrhea Status: Acute Problem Text: Differential diagnosis includes infectious versus side effects of bortezomib Await CT abdomen/pelvis IV fluid Pain management (2) HTN (hypertension) Status: Chronic Problem Text: Blood pressure under control Continue home meds (3) Fibromyalgia Status: Chronic Problem Text: Continue home meds (4) Multiple myeloma Status: Chronic Problem Text: Follow-up with oncologist in the outpatient settings (5) Electrolyte abnormality Status: Acute Problem Text: Patient developed hypomagnesemia, hypokalemia Most likely secondary to diarrhea Continue replacement with potassium and magnesium supplementation BMP every 6 hours Plan / VTE VTE Prophylaxis Ordered?: Yes LEI ABEBE DO Feb 22, 2021 17:55
[2021-02-22] MEDS ORDERED: ONDANSETRON 4 MG TAB PO PRN (18:00)
[2021-02-22 18:33] LABS: THYROID STIMULATING HORMONE 0.634 uIU/ML (0.358-3.740)
--- NOTE | 2021-02-22 18:43 | ECGEPIP ---
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
--- NOTE | 2021-02-22 18:49 | REPVR ---
PROCEDURE INFORMATION: Exam: CT Abdomen And Pelvis With Contrast Exam date and time: 02/22/2021 3:15 PM Age: 65 years old Clinical indication: Abdominal pain TECHNIQUE: Imaging protocol: Computed tomography of the abdomen and pelvis with contrast. Radiation optimization: All CT scans at this facility use at least one of these dose optimization techniques: automated exposure control; mA and/or kV adjustment per patient size (includes targeted exams where dose is matched to clinical indication); or iterative reconstruction. Contrast material: ISOVUE 370; Contrast volume: 100 ml; Contrast route: INTRAVENOUS (IV); COMPARISON: PT PET/CT Skull/mid thigh 09/28/2020 10:39 AM FINDINGS: Lungs: There is a small granuloma in the right lung base. There is a small area patchy infiltrate at the right posterior lung base. Heart: There is moderate cardiomegaly. Liver: Normal appearing liver. Gallbladder and bile ducts: Normal common bile duct. Patient is post cholecystectomy. Pancreas: Normal pancreas. Spleen: There is moderate splenomegaly. Adrenal glands: Normal appearing adrenal glands. Kidneys and ureters: Normal kidneys. In there is no evidence of hydronephrosis. There is enhancement of both kidneys with no evidence of hydronephrosis. Stomach and bowel: There is a large hiatal hernia with 1/3 of the stomach above the diaphragm. There are numerous large diverticula of the colon especially left colon and sigmoid colon. The there is some stranding density of the mid to lower left colon and suspicious for early changes of diverticulitis. There is some stranding of the sigmoid colon probably the result of changes of diverticulitis. Appendix: Normal appearing appendix. Intraperitoneal space: There is no evidence of pneumoperitoneum. Vasculature: There is opacification of the SMV the and the SMA. There is no evidence of mesenteric mass. There is opacification of the aorta which appears intact. Both renal arteries opacify. Calcification atherosclerotic change of the vessels Lymph nodes: There is no evidence of lymphadenopathy. Urinary bladder: Normal urinary bladder. Normal appearing urinary bladder. Reproductive: Patient is post hysterectomy. Bones/joints: Unremarkable. No acute fracture. Soft tissues: There is no evidence of soft tissue abnormality. IMPRESSION: Numerous diverticula of the colon especially the left colon and sigmoid colon. Some stranding along the left colon and mid sigmoid colon may be the result of changes of diverticulitis. Large hiatal hernia. Electronically signed by: Chris Cedeno On 02/22/2021 18:49:04 PM
[2021-02-22] MEDS ORDERED: PREG50CA PO (19:03)
[2021-02-22] MEDS ORDERED: DEXA4TA PO (19:03)
[2021-02-22] MEDS ORDERED: HOME MED LIST COMPLETE! XX SCH (19:05)
[2021-02-22] MEDS: NS 1,000 ML IV SCH (19:41)
[2021-02-22] MEDS: METOPROLOL TART 12.5 MG PER 1/2 TAB PO SCH (21:31)
[2021-02-22] MEDS: allopurinoL 100 MG TAB PO SCH (21:31)
[2021-02-22] MEDS: PANTOPRAZOLE 40MG TAB (PROTONIX) PO SCH (21:32)
[2021-02-22] MEDS: PREGABALIN 50 MG CAP (LYRICA) PO SCH (21:32)
[2021-02-22] MEDS: ATORVASTATIN 10 MG TAB PO SCH (21:32)
[2021-02-22] MEDS: ACYCLOVIR 200 MG CAPSULE PO SCH ×2 (21:32→21:53)
[2021-02-22] MEDS: PERCOCET 5MG/325MG TAB PO PRN (21:33)
[2021-02-22 21:39] LABS: BLOOD UREA NITROGEN 29 MG/DL (7-18); CARBON DIOXIDE LEVEL 26 MEQ/L (21-32); CHLORIDE LEVEL 105 MEQ/L (98-107); CREATININE FOR GFR 0.94 MG/DL (0.55-1.30); GLOMERULAR FILTRATION RATE > 60.0 (>45); GLUCOSE, FASTING 165 MG/DL (70-100); SODIUM LEVEL 140 MEQ/L (136-145)
[2021-02-22] MEDS: POTASSIUM CHLORIDE 10MEQ SR TABLET PO SCH (21:54)
[2021-02-22] MEDS: MAGNESIUM OXIDE 400MG TAB (MAG-OX) PO SCH (21:54)
[2021-02-22 22:30] VITALS: BP 127/74
[2021-02-23] MEDS: NS 1,000 ML IV SCH ×2 (02:27→11:01)
[2021-02-23 02:42] LABS: BLOOD UREA NITROGEN 28 MG/DL (7-18); CALCIUM LEVEL 7.6 MG/DL (8.8-10.2); CARBON DIOXIDE LEVEL 24 MEQ/L (21-32); CHLORIDE LEVEL 111 MEQ/L (98-107); GLOMERULAR FILTRATION RATE > 60.0 (>45); GLUCOSE, FASTING 117 MG/DL (70-100); POTASSIUM SERUM 3.5 MEQ/L (3.5-5.1); SODIUM LEVEL 142 MEQ/L (136-145)
[2021-02-23 06:10] VITALS: BP 119/71
[2021-02-23 08:04] LABS: HEMATOCRIT 32.9 % (36.0-47.0); MEAN CORPUSCULAR HEMOGLOBIN 31.5 pg (27.0-33.0); MEAN CORPUSCULAR HGB CONC 32.8 g/dl (32.0-36.5); MEAN CORPUSCULAR VOLUME 95.9 fl (80.0-96.0); RED BLOOD COUNT 3.43 10^6/uL (4.00-5.40); WHITE BLOOD COUNT 3.4 10^3/uL (4.0-10.0)
[2021-02-23 08:06] LABS: PLATELET COUNT, AUTOMATED 34 10^3/uL (150-450)
[2021-02-23 08:07] LABS: HEMOGLOBIN 10.8 g/dl (12.0-15.5)
[2021-02-23 08:21] LABS: BLOOD UREA NITROGEN 23 MG/DL (7-18); CALCIUM LEVEL 7.6 MG/DL (8.8-10.2); CARBON DIOXIDE LEVEL 24 MEQ/L (21-32); CHLORIDE LEVEL 115 MEQ/L (98-107); CREATININE FOR GFR 0.74 MG/DL (0.55-1.30); GLOMERULAR FILTRATION RATE > 60.0 (>45); GLUCOSE, FASTING 120 MG/DL (70-100); POTASSIUM SERUM 3.3 MEQ/L (3.5-5.1); SODIUM LEVEL 143 MEQ/L (136-145)
[2021-02-23 08:22] LABS: ALBUMIN 2.6 GM/DL (3.2-5.2); ALT/SGPT 48 U/L (12-78); BILIRUBIN,TOTAL 0.4 MG/DL (0.2-1.0)
[2021-02-23] MEDS: ASPIRIN 81MG ENTERIC TABLET PO SCH (08:45)
[2021-02-23] MEDS: PANTOPRAZOLE 40MG TAB (PROTONIX) PO SCH ×2 (08:47→21:22)
[2021-02-23] MEDS: METOPROLOL TART 12.5 MG PER 1/2 TAB PO SCH ×2 (08:47→21:20)
[2021-02-23] MEDS: PREGABALIN 50 MG CAP (LYRICA) PO SCH ×2 (08:52→21:21)
[2021-02-23] MEDS: POTASSIUM CHLORIDE 10MEQ SR TABLET PO SCH ×2 (08:52→21:22)
[2021-02-23] MEDS: MAGNESIUM OXIDE 400MG TAB (MAG-OX) PO SCH ×2 (08:53→21:21)
[2021-02-23] MEDS: allopurinoL 100 MG TAB PO SCH ×2 (08:53→21:21)
[2021-02-23] MEDS: HEPARIN SOD (PORCINE) 5000UNITS/ML 1ML VIAL/SYRINGE SC SCH ×2 (09:00→21:00)
[2021-02-23] MEDS: ACYCLOVIR 200 MG CAPSULE PO SCH ×2 (09:00→21:00)
[2021-02-23 14:00] VITALS: BP 120/69
[2021-02-23 14:52] LABS: BLOOD UREA NITROGEN 19 MG/DL (7-18); CALCIUM LEVEL 7.6 MG/DL (8.8-10.2); CARBON DIOXIDE LEVEL 24 MEQ/L (21-32); CHLORIDE LEVEL 116 MEQ/L (98-107); CREATININE FOR GFR 0.65 MG/DL (0.55-1.30); GLOMERULAR FILTRATION RATE > 60.0 (>45); GLUCOSE, FASTING 147 MG/DL (70-100); POTASSIUM SERUM 3.6 MEQ/L (3.5-5.1); SODIUM LEVEL 146 MEQ/L (136-145)
[2021-02-23] MEDS: PERCOCET 5MG/325MG TAB PO PRN (16:12)
--- NOTE | 2021-02-23 20:08 | IPNPDOC ---
Subjective Date Seen The patient was seen on 02/23/21. Subjective Chief Complaint/HPI Mrs. Gooden is a 65 year old female with multiple myeloma status post hemopoietic cell transplant and rheumatoid arthritis who presents with diarrhea and abdominal pain. Patient's GI panel returned negative. Patient was seen this morning, she denied any chest pain or dyspnea. She still had significant abdominal pain and diarrhea. At the time of this writing, she has had 7 bowel movements. Patient has no leukocytosis or fever. GI panel was negative. Unlikely infectious in nature and given her multiple allergies to antibiotics, will hold off on antibiotics unless she develops a fever or leukocytosis. Objective Physical Examination General Exam: Positive: Alert, Cooperative Eye Exam: Positive: PERRLA ENT Exam: Positive: Atraumatic Neck Exam: Positive: Supple Chest Exam: Positive: Clear to auscultation Heart Exam: Positive: Rate Normal, Regular Rhythm Abdomen Exam: Positive: BS Hyperactive, Tenderness (Moderate diffuse, no rebound) Neuro Exam: Positive: Cranial Nerves 3-12 NL Psych Exam: Positive: Mood NL, Oriented x 3 Assessment /Plan Assessment Mrs. Gooden is a 65 year old female with multiple myeloma status post hemopoietic cell transplant and rheumatoid arthritis who presents with diarrhea and abdominal pain. CT of the abdomen pelvis demonstrated numerous diverticula and some stranding suggesting possible diverticulitis. Patient has no fever or leukocytosis. Patient has multiple allergies including penicillins (anaphylaxis) and quinolones. We will see how she does off of antibiotics. If no improvement, may need to try ciprofloxacin while the day team is here in case if she does develop an anaphylactic reaction. She does not remember reaction, but in computer system it says itchy throat. She had metronidazole without issue. Plan/VTE VTE Prophylaxis Ordered?: Yes Plan 1. Abdominal pain with diarrhea GI panel negative No fever or leukocytosis to suggest infection Possibly secondary to bortezomib If no improvement tomorrow, will try Cipro and metronidazole and monitor for side effects to Cipro Until appetite improves, continue clear liquid diet Since GI panel negative, start FiberCon and cholestyramine 2. Hypertension Continue Lopressor 3. Fibromyalgia Continue Percocet and pregabalin 4. Multiple myeloma Status post hemopoietic cell transplant Continue acyclovir for prophylaxis status post graft/transplant Follows with heme-onc outpatient 5. DVT prophylaxis Continue heparin Disposition: Pending improvement in diarrhea and appetite VS, I&O, 24H, Fishbone Vital Signs/I&O Vital Signs Date Time Temp Pulse Resp B/P (MAP) Pulse Ox O2 Delivery O2 Flow Rate FiO2 02/23/21 16:50 17 02/23/21 14:00 97.8 61 120/69 (86) 96 Room Air I&O- Last 24 Hours up to 6 AM 02/23/21 06:00 Intake Total 3240 ml Output Total 450 ml Balance 2790 ml Laboratory Data 24H LABS Laboratory Tests 2 02/23/21 01:50: Anion Gap 7L, Glomerular Filtration Rate > 60.0, Calcium Level 7.6L 02/23/21 07:27: Anion Gap 4L, Glomerular Filtration Rate > 60.0, Calcium Level 7.6L, Nucleated Red Blood Cells % (auto) 0.0, Magnesium Level 2.0, Total Bilirubin 0.4, Aspartate Amino Transf (AST/SGOT) 26, Alanine Aminotransferase (ALT/SGPT) 48, Alkaline Phosphatase 61, Total Protein 6.0L, Albumin 2.6#L, Albumin/Globulin Ratio 0.8L 02/23/21 12:32: Bedside Glucose (Misc Panel) 104 02/23/21 14:07: Anion Gap 6L, Glomerular Filtration Rate > 60.0, Calcium Level 7.6L 02/23/21 16:30: Bedside Glucose (Misc Panel) 109 CBC/BMP Laboratory Tests 02/23/21 01:50 02/23/21 07:27 02/23/21 14:07 Microbiology Microbiology 02/22/21 Gastrointestinal Tract Panel (PCR) - Final, Complete ARA LIMON DO Feb 23, 2021 20:08
[2021-02-23] MEDS: FIBER-CON 625 MG TAB PO SCH (21:21)
[2021-02-23] MEDS: ATORVASTATIN 10 MG TAB PO SCH (21:22)
[2021-02-23] MEDS: D5W/0.45% SODIUM CHLORIDE 1,000 ML IV SCH (21:26)
[2021-02-23 22:00] VITALS: BP 133/76
[2021-02-24] MEDS: CHOLESTYRAMINE 4 GM PWD PKT PO SCH ×3 (02:08→21:30)
[2021-02-24] MEDS: PERCOCET 5MG/325MG TAB PO PRN ×2 (02:10→16:14)
[2021-02-24 06:00] VITALS: BP 109/59
[2021-02-24] MEDS: D5W/0.45% SODIUM CHLORIDE 1,000 ML IV SCH ×2 (07:04→16:15)
[2021-02-24 07:31] LABS: HEMATOCRIT 31.4 % (36.0-47.0); HEMOGLOBIN 10.2 g/dl (12.0-15.5); MEAN CORPUSCULAR HEMOGLOBIN 31.6 pg (27.0-33.0); MEAN CORPUSCULAR HGB CONC 32.5 g/dl (32.0-36.5); MEAN CORPUSCULAR VOLUME 97.2 fl (80.0-96.0); RED BLOOD COUNT 3.23 10^6/uL (4.00-5.40); WHITE BLOOD COUNT 2.2 10^3/uL (4.0-10.0)
[2021-02-24 07:40] LABS: PLATELET COUNT, AUTOMATED 24 10^3/uL (150-450)
[2021-02-24 08:06] LABS: BLOOD UREA NITROGEN 8 MG/DL (7-18); CALCIUM LEVEL 7.2 MG/DL (8.8-10.2); CARBON DIOXIDE LEVEL 23 MEQ/L (21-32); CHLORIDE LEVEL 116 MEQ/L (98-107); CREATININE FOR GFR 0.48 MG/DL (0.55-1.30); GLOMERULAR FILTRATION RATE > 60.0 (>45); GLUCOSE, FASTING 133 MG/DL (70-100); MAGNESIUM LEVEL 1.7 MG/DL (1.8-2.4); POTASSIUM SERUM 3.5 MEQ/L (3.5-5.1); SODIUM LEVEL 145 MEQ/L (136-145)
[2021-02-24] MEDS: ASPIRIN 81MG ENTERIC TABLET PO SCH (09:00)
[2021-02-24 09:11] VITALS: BP 123/69
[2021-02-24] MEDS: PREGABALIN 50 MG CAP (LYRICA) PO SCH ×2 (10:40→20:08)
[2021-02-24] MEDS: POTASSIUM CHLORIDE 10MEQ SR TABLET PO SCH ×2 (10:41→20:08)
[2021-02-24] MEDS: ACYCLOVIR 200 MG CAPSULE PO SCH ×2 (10:42→20:07)
[2021-02-24] MEDS: PANTOPRAZOLE 40MG TAB (PROTONIX) PO SCH ×2 (10:42→20:07)
[2021-02-24] MEDS: FIBER-CON 625 MG TAB PO SCH ×2 (10:42→20:07)
[2021-02-24] MEDS: METOPROLOL TART 12.5 MG PER 1/2 TAB PO SCH ×2 (10:42→20:10)
[2021-02-24] MEDS: allopurinoL 100 MG TAB PO SCH ×2 (10:43→20:07)
[2021-02-24] MEDS: MAGNESIUM OXIDE 400MG TAB (MAG-OX) PO SCH ×2 (10:43→20:07)
[2021-02-24] MEDS ORDERED: metroNIDAZOLE 500 MG in IV 1 EA IV SCH (10:45)
[2021-02-24] MEDS ORDERED: CIPROFLOXACIN 400 MG in IV 1 EA IV SCH (10:45)
[2021-02-24] MEDS: oxyCODONE 5MG TAB PO PRN ×2 (11:11→20:11)
--- NOTE | 2021-02-24 11:35 | IPNPDOC ---
Subjective Date Seen The patient was seen on 02/24/21. Subjective Chief Complaint/HPI Mrs. Gooden is a 65 year old female with multiple myeloma status post hemopoietic cell transplant and rheumatoid arthritis who presents with diarrhea and abdominal pain. Patient was seen this morning sitting up eating her Jell-O. She has not tolerated anything beyond Jell-O. She still has abdominal pain and diarrhea. Will start her on antibiotics. Due to her multiple allergies, I spoke with pharmacy. The ciprofloxacin may be too risky given her allergy to quinolones causing hives. Will start with Meropenem instead. Otherwise, I called [facility]. Patient has had similar abdominal pain with diarrhea with other chemotherapy treatments. It is unknown if the Velcade is causing the abdominal pain with diarrhea. They agree with treating the diverticulitis. They do think the Velcade and her multiple myeloma is causing her pancytopenia. Recommending giving it time to recover. If her platelet count drops to 15 to 10, they would recommend transfusion. If there is no improvement, we can consider dexamethasone, but will need to be cautious given her current infection. Objective Physical Examination General Exam: Positive: Alert, Cooperative Eye Exam: Positive: PERRLA ENT Exam: Positive: Atraumatic Neck Exam: Positive: Supple Chest Exam: Positive: Clear to auscultation Heart Exam: Positive: Rate Normal, Regular Rhythm Abdomen Exam: Positive: BS Hyperactive, Tenderness (Moderate diffuse, no rebound) Neuro Exam: Positive: Cranial Nerves 3-12 NL Psych Exam: Positive: Mood NL, Oriented x 3 Assessment /Plan Assessment Mrs. Gooden is a 65 year old female with multiple myeloma status post hemopoietic cell transplant and rheumatoid arthritis who presents with diarrhea and abdominal pain. CT of the abdomen pelvis demonstrated numerous diverticula and some stranding suggesting possible diverticulitis. Patient has no fever or leukocytosis. Patient has multiple allergies including penicillins (anaphylaxis) and quinolones. I spoke with pharmacy, will try meropenem. Otherwise, I spoke with the [facility] ([phone]) and spoke with Jil Batista. Unsure if the Velcade is causing her abdominal pain and diarrhea, but the Velcade is most likely contributing to pancytopenia. recommended giving time to recover. If platelet count drops to 10 to 15, will discuss with patient about platelet transfusion. Plan/VTE VTE Prophylaxis Ordered?: Yes Plan 1. Abdominal pain with diarrhea GI panel negative No fever or leukocytosis to suggest infection Spoke with patient's heme/onc center. Unclear if Velcade is causing pain -Most likely diverticulitis. Will start patient on Meropenem given multiple allergies. -Meropenem day 1 Until appetite improves, continue clear liquid diet Since GI panel negative, start FiberCon and cholestyramine to improve diarrhea 2. Hypertension Continue Lopressor 3. Fibromyalgia Continue Percocet and pregabalin 4. Multiple myeloma Status post hemopoietic cell transplant Continue acyclovir for prophylaxis status post graft/transplant Follows with heme-onc outpatient 5. DVT prophylaxis Continue heparin Disposition: Pending improvement in diarrhea, abdominal pain, and appetite VS, I&O, 24H, Fishbone Vital Signs/I&O Vital Signs Date Time Temp Pulse Resp B/P (MAP) Pulse Ox O2 Delivery O2 Flow Rate FiO2 02/24/21 11:11 16 02/24/21 10:42 62 123/69 02/24/21 09:11 97.3 98 Room Air I&O- Last 24 Hours up to 6 AM 02/24/21 06:00 Intake Total 3720 ml Output Total 1525 ml Balance 2195 ml Laboratory Data 24H LABS Laboratory Tests 2 02/23/21 12:32: Bedside Glucose (Misc Panel) 104 02/23/21 14:07: Anion Gap 6L, Glomerular Filtration Rate > 60.0, Calcium Level 7.6L 02/23/21 16:30: Bedside Glucose (Misc Panel) 109 02/24/21 06:38: Anion Gap 6L, Glomerular Filtration Rate > 60.0, Calcium Level 7.2L, Nucleated Red Blood Cells % (auto) 0.0, Immature Platelet Fraction 5.7, Magnesium Level 1.7L CBC/BMP Laboratory Tests 02/23/21 14:07 02/24/21 06:38 Microbiology Microbiology 02/22/21 Gastrointestinal Tract Panel (PCR) - Final, Complete ARA LIMON DO Feb 24, 2021 11:34
[2021-02-24] MEDS: MEROPENEM INJ 1 GM in IV 1 EA IV SCH ×2 (12:36→20:07)
[2021-02-24 14:00] VITALS: BP 130/70
[2021-02-24] MEDS: ATORVASTATIN 10 MG TAB PO SCH (20:07)
[2021-02-24 22:00] VITALS: BP 133/73
[2021-02-25] MEDS: MEROPENEM INJ 1 GM in IV 1 EA IV SCH ×3 (03:34→20:23)
[2021-02-25] MEDS: oxyCODONE 5MG TAB PO PRN ×3 (03:34→18:46)
[2021-02-25 06:00] VITALS: BP 127/67
[2021-02-25 07:09] LABS: HEMATOCRIT 32.4 % (36.0-47.0); HEMOGLOBIN 10.7 g/dl (12.0-15.5); MEAN CORPUSCULAR HEMOGLOBIN 31.7 pg (27.0-33.0); MEAN CORPUSCULAR VOLUME 95.9 fl (80.0-96.0); RED BLOOD COUNT 3.38 10^6/uL (4.00-5.40); WHITE BLOOD COUNT 2.7 10^3/uL (4.0-10.0)
[2021-02-25 07:17] LABS: PLATELET COUNT, AUTOMATED 21 10^3/uL (150-450)
[2021-02-25 07:25] LABS: BLOOD UREA NITROGEN 1 MG/DL (7-18); CALCIUM LEVEL 7.4 MG/DL (8.8-10.2); CARBON DIOXIDE LEVEL 26 MEQ/L (21-32); CHLORIDE LEVEL 112 MEQ/L (98-107); CREATININE FOR GFR 0.37 MG/DL (0.55-1.30); GLOMERULAR FILTRATION RATE > 60.0 (>45); GLUCOSE, FASTING 91 MG/DL (70-100); MAGNESIUM LEVEL 1.6 MG/DL (1.8-2.4); POTASSIUM SERUM 4.4 MEQ/L (3.5-5.1); SODIUM LEVEL 142 MEQ/L (136-145)
[2021-02-25] MEDS: CHOLESTYRAMINE 4 GM PWD PKT PO SCH (09:05)
[2021-02-25] MEDS: POTASSIUM CHLORIDE 10MEQ SR TABLET PO SCH ×2 (09:06→20:23)
[2021-02-25] MEDS: FIBER-CON 625 MG TAB PO SCH (09:06)
[2021-02-25] MEDS: ACYCLOVIR 200 MG CAPSULE PO SCH ×2 (09:06→20:23)
[2021-02-25] MEDS: allopurinoL 100 MG TAB PO SCH ×2 (09:06→20:24)
[2021-02-25] MEDS: ASPIRIN 81MG ENTERIC TABLET PO SCH (09:06)
[2021-02-25] MEDS: MAGNESIUM OXIDE 400MG TAB (MAG-OX) PO SCH ×2 (09:06→20:24)
[2021-02-25] MEDS: PREGABALIN 50 MG CAP (LYRICA) PO SCH ×2 (09:06→20:32)
[2021-02-25] MEDS: PANTOPRAZOLE 40MG TAB (PROTONIX) PO SCH ×2 (09:07→20:23)
[2021-02-25] MEDS: METOPROLOL TART 12.5 MG PER 1/2 TAB PO SCH ×3 (09:08→21:24)
--- NOTE | 2021-02-25 12:57 | IPNPDOC ---
Subjective Date Seen The patient was seen on 02/25/21. Subjective Chief Complaint/HPI Mrs. Gooden is a 65 year old female with multiple myeloma status post hemopoietic cell transplant and rheumatoid arthritis who presents with diarrhea and abdominal pain. This morning, she feels about the same. Has only tolerated Jell-O. No bowel movements yesterday. Objective Physical Examination General Exam: Positive: Alert, Cooperative Eye Exam: Positive: PERRLA ENT Exam: Positive: Atraumatic Neck Exam: Positive: Supple Chest Exam: Positive: Clear to auscultation Heart Exam: Positive: Rate Normal, Regular Rhythm Abdomen Exam: Positive: Normal bowel sounds, Tenderness Neuro Exam: Positive: Cranial Nerves 3-12 NL Psych Exam: Positive: Mood NL, Oriented x 3 Assessment /Plan Assessment Mrs. Gooden is a 65 year old female with multiple myeloma status post hemopoietic cell transplant and rheumatoid arthritis who presents with diarrhea and abdominal pain. CT of the abdomen pelvis demonstrated numerous diverticula and some stranding suggesting possible diverticulitis. Patient has no fever or leukocytosis. Patient has multiple allergies including penicillins (anaphylaxis) and quinolones. I spoke with pharmacy, will try meropenem. Otherwise, I spoke with the [facility] ([phone]) and spoke with Jil Batista. Unsure if the Velcade is causing her abdominal pain and diarrhea, but the Velcade is most likely contributing to pancytopenia. recommended giving time to recover. If platelet count drops to 10 to 15, will discuss with patient about platelet transfusion. Plan/VTE VTE Prophylaxis Ordered?: Yes Plan 1. Abdominal pain with diarrhea GI panel negative No fever or leukocytosis to suggest infection Spoke with patient's heme/onc center. Unclear if Velcade is causing pain -Most likely diverticulitis. Will start patient on Meropenem given multiple allergies. -Meropenem day 2 Until appetite improves, continue clear liquid diet GI panel negative. No bowel movements yesterday. Will DC FiberCon cholestyramine 2. Pancytopenia secondary to chemotherapy On Monday patient had Velcade Spoke with cancer center, pancytopenia most likely due to Velcade Supportive care. If platelets were to drop to between 10-15, patient will need transfusion of platelets 3. Hypertension Continue Lopressor 4. Fibromyalgia Continue Percocet and pregabalin 5. Multiple myeloma Status post hemopoietic cell transplant Continue acyclovir for prophylaxis status post graft/transplant Follows with heme-onc outpatient 6. DVT prophylaxis Continue heparin Disposition: Pending improvement in abdominal pain and appetite VS, I&O, 24H, Fishbone Vital Signs/I&O Vital Signs Date Time Temp Pulse Resp B/P (MAP) Pulse Ox O2 Delivery O2 Flow Rate FiO2 02/25/21 12:24 17 02/25/21 09:08 64 123/67 02/25/21 06:00 97.2 97 Room Air I&O- Last 24 Hours up to 6 AM 02/25/21 06:00 Intake Total 3185 ml Output Total 1960 ml Balance 1225 ml Laboratory Data 24H LABS Laboratory Tests 2 02/25/21 06:50: Nucleated Red Blood Cells % (auto) 0.0, Immature Platelet Fraction 9.2, Anion Gap 4L, Glomerular Filtration Rate > 60.0, Calcium Level 7.4L, Magnesium Level 1.6L CBC/BMP Laboratory Tests 02/25/21 06:50 Microbiology Microbiology 02/22/21 Gastrointestinal Tract Panel (PCR) - Final, Complete ARA LIMON DO Feb 25, 2021 12:57
[2021-02-25] MEDS: MAG SULF 1GM/100ML (MAG RUN) 1 GM in IV 1 EA IV SCH ×2 (13:20→14:24)
[2021-02-25 14:00] VITALS: BP 122/64
[2021-02-25] MEDS: ATORVASTATIN 10 MG TAB PO SCH (20:23)
[2021-02-25 22:00] VITALS: BP 132/64
[2021-02-26] MEDS: oxyCODONE 5MG TAB PO PRN (02:12)
[2021-02-26] MEDS: MEROPENEM INJ 1 GM in IV 1 EA IV SCH ×3 (04:44→19:54)
[2021-02-26 05:33] LABS: HEMATOCRIT 33.3 % (36.0-47.0); MEAN CORPUSCULAR HEMOGLOBIN 31.6 pg (27.0-33.0); MEAN CORPUSCULAR VOLUME 95.7 fl (80.0-96.0); RED BLOOD COUNT 3.48 10^6/uL (4.00-5.40); WHITE BLOOD COUNT 2.9 10^3/uL (4.0-10.0)
[2021-02-26 05:39] LABS: PLATELET COUNT, AUTOMATED 19 10^3/uL (150-450)
[2021-02-26 05:50] LABS: BLOOD UREA NITROGEN 1 MG/DL (7-18); CALCIUM LEVEL 7.3 MG/DL (8.8-10.2); CARBON DIOXIDE LEVEL 26 MEQ/L (21-32); CHLORIDE LEVEL 112 MEQ/L (98-107); CREATININE FOR GFR 0.43 MG/DL (0.55-1.30); GLOMERULAR FILTRATION RATE > 60.0 (>45); GLUCOSE, FASTING 92 MG/DL (70-100); MAGNESIUM LEVEL 1.6 MG/DL (1.8-2.4); POTASSIUM SERUM 4.9 MEQ/L (3.5-5.1); SODIUM LEVEL 143 MEQ/L (136-145)
[2021-02-26 06:00] VITALS: BP 110/65
[2021-02-26] MEDS: METOPROLOL TART 12.5 MG PER 1/2 TAB PO SCH ×2 (09:00→19:59)
[2021-02-26] MEDS: MAG SULF 1GM/100ML (MAG RUN) 1 GM in IV 1 EA IV SCH ×4 (09:20→14:19)
[2021-02-26] MEDS: ACYCLOVIR 200 MG CAPSULE PO SCH ×2 (09:21→20:01)
[2021-02-26] MEDS: POTASSIUM CHLORIDE 10MEQ SR TABLET PO SCH ×2 (09:23→20:01)
[2021-02-26] MEDS: PREGABALIN 50 MG CAP (LYRICA) PO SCH ×2 (09:25→20:00)
[2021-02-26] MEDS: PANTOPRAZOLE 40MG TAB (PROTONIX) PO SCH ×2 (09:25→20:00)
[2021-02-26] MEDS: allopurinoL 100 MG TAB PO SCH ×2 (09:25→20:00)
[2021-02-26] MEDS: ASPIRIN 81MG ENTERIC TABLET PO SCH (09:26)
[2021-02-26] MEDS: MAGNESIUM OXIDE 400MG TAB (MAG-OX) PO SCH ×2 (09:26→20:00)
[2021-02-26] MEDS ORDERED: MIRALAX *UNIT DOSE* 17GM PACKET PO PRN (13:25)
[2021-02-26 14:00] VITALS: BP 141/77
[2021-02-26] MEDS ORDERED: MAGNESIUM SULFATE 1GM/100ML D5W BAG (10MG/ML) As Ordered ONE (14:16)
[2021-02-26] MEDS: DOCUSATE SODIUM 100MG CAPSULE PO SCH ×2 (14:18→20:00)
--- NOTE | 2021-02-26 15:10 | IPNPDOC ---
Subjective Date Seen The patient was seen on 02/26/21. Subjective Chief Complaint/HPI Mrs. Gooden is a 65 year old female with multiple myeloma status post hemopoietic cell transplant and rheumatoid arthritis who presents with diarrhea and abdominal pain. Patient was seen in the morning. She reports difficulty with sleep and denies any change to her symptoms. She is tolerating the Jell-O. We will try to advance her diet as tolerated. Otherwise continue with antibiotic. I reached out to Dr. Batista as her platelets have not recovered. She last had her chemotherapy on February 19, 2021. They thought it was curious that her platelets have not recovered yet. No further recommendations except to continue monitoring and transfuse if she is bleeding. Will discontinue aspirin. Objective Physical Examination General Exam: Positive: Alert, Cooperative Eye Exam: Positive: PERRLA ENT Exam: Positive: Atraumatic Neck Exam: Positive: Supple Chest Exam: Positive: Clear to auscultation Heart Exam: Positive: Rate Normal, Regular Rhythm Abdomen Exam: Positive: Normal bowel sounds, Tenderness Neuro Exam: Positive: Cranial Nerves 3-12 NL Psych Exam: Positive: Mood NL, Oriented x 3 Assessment /Plan Assessment Mrs. Gooden is a 65 year old female with multiple myeloma status post hemopoietic cell transplant and rheumatoid arthritis who presents with diarrhea and abd ominal pain. CT of the abdomen pelvis demonstrated numerous diverticula and some stranding suggesting possible diverticulitis. Patient has no fever or leukocytosis. Patient has multiple allergies including penicillins (anaphylaxis) and quinolones. I spoke with pharmacy, will try meropenem. Otherwise, I spoke with the [facility] ([phone]) and spoke with Jil Batista. Unsure if the Velcade is causing her abdominal pain and diarrhea, but the Velcade is most likely contributing to pancytopenia. recommended giving time to recover. If platelet count drops to 10 to 15, will discuss with patient about platelet transfusion. Plan/VTE VTE Prophylaxis Ordered?: Yes Plan 1. Abdominal pain with diarrhea GI panel negative No fever or leukocytosis to suggest infection Spoke with patient's heme/onc center. Unclear if Velcade is causing pain -Most likely diverticulitis. Will start patient on Meropenem given multiple allergies. -Meropenem day 3 Until appetite improves, continue clear liquid diet GI panel negative. No bowel movements yesterday. Will DC FiberCon cholestyramine 2. Pancytopenia secondary to chemotherapy On Monday patient had Velcade Spoke with cancer center, pancytopenia most likely due to Velcade Supportive care. If platelets were to drop to between 10-15, patient will need transfusion of platelets 3. Hypertension Continue Lopressor 4. Fibromyalgia Continue Percocet and pregabalin 5. Multiple myeloma Status post hemopoietic cell transplant Continue acyclovir for prophylaxis status post graft/transplant Follows with heme-onc outpatient 6. DVT prophylaxis Teds due to thrombocytopenia Going through discontinued meds, patient was never given heparin and never had Lovenox Disposition: Pending improvement in abdominal pain and appetite. VS, I&O, 24H, Fishbone Vital Signs/I&O Vital Signs Date Time Temp Pulse Resp B/P (MAP) Pulse Ox O2 Delivery O2 Flow Rate FiO2 02/26/21 09:00 67 112/70 02/26/21 06:00 97.6 18 96 Room Air I&O- Last 24 Hours up to 6 AM 02/26/21 06:00 Intake Total 1950 ml Output Total 1565 ml Balance 385 ml Laboratory Data 24H LABS Laboratory Tests 2 02/26/21 05:02: Nucleated Red Blood Cells % (auto) 0.0, Anion Gap 5L, Glomerular Filtration Rate > 60.0, Calcium Level 7.3L, Magnesium Level 1.6L CBC/BMP Laboratory Tests 02/26/21 05:02 Microbiology Microbiology 02/22/21 Gastrointestinal Tract Panel (PCR) - Final, Complete ARA LIMON DO Feb 26, 2021 15:10
[2021-02-26] MEDS: RAMELTEON 8 MG TAB (ROZEREM) PO SCH (20:00)
[2021-02-26] MEDS: ATORVASTATIN 10 MG TAB PO SCH (20:00)
[2021-02-26 22:00] VITALS: BP 114/73
[2021-02-27] MEDS: MEROPENEM INJ 1 GM in IV 1 EA IV SCH ×4 (03:35→20:51)
[2021-02-27 06:00] VITALS: BP 129/72
[2021-02-27 06:24] LABS: HEMATOCRIT 32.3 % (36.0-47.0); HEMOGLOBIN 10.7 g/dl (12.0-15.5); MEAN CORPUSCULAR HEMOGLOBIN 31.1 pg (27.0-33.0); MEAN CORPUSCULAR HGB CONC 33.1 g/dl (32.0-36.5); MEAN CORPUSCULAR VOLUME 93.9 fl (80.0-96.0); RED BLOOD COUNT 3.44 10^6/uL (4.00-5.40); WHITE BLOOD COUNT 3.4 10^3/uL (4.0-10.0)
[2021-02-27 06:27] LABS: PLATELET COUNT, AUTOMATED 18 10^3/uL (150-450)
[2021-02-27 06:42] LABS: BLOOD UREA NITROGEN 4 MG/DL (7-18); CALCIUM LEVEL 7.8 MG/DL (8.8-10.2); CARBON DIOXIDE LEVEL 25 MEQ/L (21-32); CHLORIDE LEVEL 111 MEQ/L (98-107); CREATININE FOR GFR 0.43 MG/DL (0.55-1.30); GLOMERULAR FILTRATION RATE > 60.0 (>45); GLUCOSE, FASTING 93 MG/DL (70-100); MAGNESIUM LEVEL 1.9 MG/DL (1.8-2.4); POTASSIUM SERUM 4.3 MEQ/L (3.5-5.1); SODIUM LEVEL 143 MEQ/L (136-145)
[2021-02-27] MEDS: POTASSIUM CHLORIDE 10MEQ SR TABLET PO SCH ×2 (08:55→20:51)
[2021-02-27] MEDS: ACYCLOVIR 200 MG CAPSULE PO SCH ×2 (08:55→20:52)
[2021-02-27] MEDS: METOPROLOL TART 12.5 MG PER 1/2 TAB PO SCH ×2 (08:56→20:53)
[2021-02-27] MEDS: PANTOPRAZOLE 40MG TAB (PROTONIX) PO SCH ×2 (08:57→20:51)
[2021-02-27] MEDS: allopurinoL 100 MG TAB PO SCH ×2 (08:57→20:51)
[2021-02-27] MEDS: MAGNESIUM OXIDE 400MG TAB (MAG-OX) PO SCH ×2 (08:57→20:52)
[2021-02-27] MEDS: PREGABALIN 50 MG CAP (LYRICA) PO SCH ×2 (08:57→20:51)
[2021-02-27] MEDS ORDERED: LOPERAMIDE 2 MG CAPLET PO ONE (09:50)
--- NOTE | 2021-02-27 13:20 | IPNPDOC ---
Subjective Date Seen The patient was seen on 02/27/21. Subjective Chief Complaint/HPI Mrs. Gooden is a 65 year old female with multiple myeloma status post hemopoietic cell transplant and rheumatoid arthritis who presents with diarrhea and abdominal pain. Last night, she tried Mac and Cheese and it was a little too greasy for her. She had emesis. This morning, she tells me her abdominal pain is improved. She had a solid BM per geriatric nursing assistant. Will try to advance diet to a soft bland diet. Objective Physical Examination General Exam: Positive: Alert, Cooperative Eye Exam: Positive: PERRLA ENT Exam: Positive: Atraumatic Neck Exam: Positive: Supple Chest Exam: Positive: Clear to auscultation Heart Exam: Positive: Rate Normal, Regular Rhythm Abdomen Exam: Positive: Normal bowel sounds, Tenderness Neuro Exam: Positive: Cranial Nerves 3-12 NL Psych Exam: Positive: Mood NL, Oriented x 3 Assessment /Plan Assessment Mrs. Gooden is a 65 year old female with multiple myeloma status post hemopoietic cell transplant and rheumatoid arthritis who presents with diarrhea and a bdominal pain. CT of the abdomen pelvis demonstrated numerous diverticula and some stranding suggesting possible diverticulitis. Patient has no fever or leukocytosis. Patient has multiple allergies including penicillins (anaphylaxis) and quinolones. I spoke with pharmacy, will try meropenem. Otherwise, I spoke with the [facility] ([phone]) and spoke with Jil Batista. Unsure if the Velcade is causing her abdominal pain and diarrhea, but the Velcade is most likely contributing to pancytopenia. recommended giving time to recover. If platelet count drops to 10 to 15, will discuss with patient about platelet transfusion. Plan/VTE VTE Prophylaxis Ordered?: Yes Plan 1. Abdominal pain with diarrhea GI panel negative No fever or leukocytosis to suggest infection Spoke with patient's heme/onc center. Unclear if Velcade is causing pain -Most likely diverticulitis. Will start patient on Meropenem given multiple all ergies. -Meropenem day 4 Will try to advance diet to a soft bland diet GI panel negative. Patient's BM is now solid 2. Pancytopenia secondary to chemotherapy On Monday 02/19, patient had Velcade Spoke with cancer center, pancytopenia most likely due to Velcade Supportive care. If platelets were to drop to between 10-15, patient will need transfusion of platelets 3. Hypertension Continue Lopressor 4. Fibromyalgia Continue Percocet and pregabalin 5. Multiple myeloma Status post hemopoietic cell transplant Continue acyclovir for prophylaxis status post graft/transplant Follows with heme-onc outpatient 6. DVT prophylaxis Teds due to thrombocytopenia Going through discontinued meds, patient was never given heparin and never had Lovenox Disposition: Pending improvement in abdominal pain and appetite. Will try to advance diet to a soft, bland diet. VS, I&O, 24H, Fishbone Vital Signs/I&O Vital Signs Date Time Temp Pulse Resp B/P (MAP) Pulse Ox O2 Delivery O2 Flow Rate FiO2 02/27/21 08:56 70 129/74 02/27/21 06:00 97.4 17 98 Room Air I&O- Last 24 Hours up to 6 AM 02/27/21 06:00 Intake Total 1390 ml Output Total 975 ml Balance 415 ml Laboratory Data 24H LABS Laboratory Tests 2 02/27/21 05:56: Nucleated Red Blood Cells % (auto) 0.0, Immature Platelet Fraction 16.3H, Anion Gap 7L, Glomerular Filtration Rate > 60.0, Calcium Level 7.8L, Magnesium Level 1.9 CBC/BMP Laboratory Tests 02/27/21 05:56 Microbiology Microbiology 02/22/21 Gastrointestinal Tract Panel (PCR) - Final, Complete ARA LIMON DO Feb 27, 2021 13:20
[2021-02-27] MEDS: LOPERAMIDE 2 MG CAPLET PO PRN ×3 (13:58→15:31)
[2021-02-27 14:00] VITALS: BP_SYST 106; BP_SYST 130; BP_DIAS 74; BP_DIAS 75
[2021-02-27] MEDS: FIBER-CON 625 MG TAB PO SCH (16:58)
[2021-02-27] MEDS: ATORVASTATIN 10 MG TAB PO SCH (20:51)
[2021-02-27] MEDS: RAMELTEON 8 MG TAB (ROZEREM) PO SCH (20:51)
[2021-02-27 22:00] VITALS: BP 169/98
[2021-02-28] MEDS: oxyCODONE 5MG TAB PO PRN (02:47)
[2021-02-28] MEDS: MEROPENEM INJ 1 GM in IV 1 EA IV SCH ×2 (04:56→13:24)
[2021-02-28] MEDS: FIBER-CON 625 MG TAB PO SCH ×2 (05:00→18:14)
[2021-02-28 06:00] VITALS: BP 127/62
[2021-02-28 06:50] LABS: HEMATOCRIT 30.9 % (36.0-47.0); HEMOGLOBIN 10.3 g/dl (12.0-15.5); MEAN CORPUSCULAR HEMOGLOBIN 31.4 pg (27.0-33.0); MEAN CORPUSCULAR HGB CONC 33.3 g/dl (32.0-36.5); MEAN CORPUSCULAR VOLUME 94.2 fl (80.0-96.0); RED BLOOD COUNT 3.28 10^6/uL (4.00-5.40); WHITE BLOOD COUNT 2.2 10^3/uL (4.0-10.0)
[2021-02-28 06:58] LABS: PLATELET COUNT, AUTOMATED 24 10^3/uL (150-450)
[2021-02-28 07:14] LABS: BLOOD UREA NITROGEN 2 MG/DL (7-18); CALCIUM LEVEL 7.2 MG/DL (8.8-10.2); CARBON DIOXIDE LEVEL 28 MEQ/L (21-32); CHLORIDE LEVEL 112 MEQ/L (98-107); CREATININE FOR GFR 0.41 MG/DL (0.55-1.30); GLOMERULAR FILTRATION RATE > 60.0 (>45); GLUCOSE, FASTING 95 MG/DL (70-100); MAGNESIUM LEVEL 1.7 MG/DL (1.8-2.4); POTASSIUM SERUM 4.6 MEQ/L (3.5-5.1); SODIUM LEVEL 145 MEQ/L (136-145)
[2021-02-28] MEDS: ACYCLOVIR 200 MG CAPSULE PO SCH ×2 (09:08→21:01)
[2021-02-28] MEDS: POTASSIUM CHLORIDE 10MEQ SR TABLET PO SCH ×2 (09:08→21:01)
[2021-02-28] MEDS: METOPROLOL TART 12.5 MG PER 1/2 TAB PO SCH ×2 (09:09→21:02)
[2021-02-28] MEDS: PREGABALIN 50 MG CAP (LYRICA) PO SCH ×2 (09:09→21:00)
[2021-02-28] MEDS: allopurinoL 100 MG TAB PO SCH ×2 (09:09→21:01)
[2021-02-28] MEDS: PANTOPRAZOLE 40MG TAB (PROTONIX) PO SCH (09:10)
[2021-02-28] MEDS: MAGNESIUM OXIDE 400MG TAB (MAG-OX) PO SCH ×2 (09:10→21:00)
[2021-02-28 14:00] VITALS: BP 122/70
--- NOTE | 2021-02-28 16:57 | IPNPDOC ---
Subjective Date Seen The patient was seen on 02/28/21. Subjective Chief Complaint/HPI Mrs. Gooden is a 65 year old female with multiple myeloma status post hemopoietic cell transplant and rheumatoid arthritis who presents with diarrhea and abdominal pain. This morning, she is feeling better. Abdominal pain improved. She was seen eating scrambled eggs. Denies any chest pain or dyspnea. Platelet count is increasing. I reached out to pharmacy about patient's antibiotics. They tell me she has been on Rocephin before for her diverticulitis. Recommended trying cefuroxime and metronidazole Objective Physical Examination General Exam: Positive: Alert, Cooperative Eye Exam: Positive: PERRLA ENT Exam: Positive: Atraumatic Neck Exam: Positive: Supple Chest Exam: Positive: Clear to auscultation Heart Exam: Positive: Rate Normal, Regular Rhythm Abdomen Exam: Positive: Normal bowel sounds, Tenderness Neuro Exam: Positive: Cranial Nerves 3-12 NL Psych Exam: Positive: Mood NL, Oriented x 3 Assessment /Plan Assessment Mrs. Gooden is a 65 year old female with multiple myeloma status post hemopoietic cell transplant and rheumatoid arthritis who presents with diarrhea and abdominal pain. CT of the abdomen pelvis demonstrated numerous diverticula and some stranding suggesting possible diverticulitis. Patient has no fever or leukocytosis. Patient has multiple allergies including penicillins (anaphylaxis) and quinolones. Patient was put on meropenem as she has been doing well. I discussed oral options with pharmacy. Recommending trying cefuroxime and metronidazole Otherwise, I spoke with the [facility] ([phone]) and spoke with Jil Batista. Unsure if the Velcade is causing her abdominal pain and diarrhea, but the Velcade is most likely contributing to pancytopenia. recommended giving time to recover. If platelet count drops to 10 to 15, will discuss with patient about platelet transfusion. Plan/VTE VTE Prophylaxis Ordered?: Yes Plan 1. Abdominal pain with diarrhea GI panel negative No fever or leukocytosis to suggest infection Spoke with patient's heme/onc center. Unclear if Velcade is causing pain -Most likely diverticulitis. -Meropenem de-escalate it to cefuroxime and metronidazole day 5 Continue with soft bland diet GI panel negative. Patient's BM is now solid 2. Pancytopenia secondary to chemotherapy On Monday 02/19, patient had Velcade Spoke with cancer center, pancytopenia most likely due to Velcade Supportive care. If platelets were to drop to between 10-15, patient will need transfusion of platelets 3. Hypertension Continue Lopressor 4. Fibromyalgia Continue Percocet and pregabalin 5. Multiple myeloma Status post hemopoietic cell transplant Continue acyclovir for prophylaxis status post graft/transplant Follows with heme-onc outpatient 6. DVT prophylaxis Teds due to thrombocytopenia Going through discontinued meds, patient was never given heparin and never had Lovenox Disposition: If patient does well with p.o. antibiotics, can consider discharge tomorrow VS, I&O, 24H, [facility] Vital Signs/I&O Vital Signs Date Time Temp Pulse Resp B/P (MAP) Pulse Ox O2 Delivery O2 Flow Rate FiO2 02/28/21 14:00 98.2 58 16 122/70 (87) 96 Room Air I&O- Last 24 Hours up to 6 AM 02/28/21 06:00 Intake Total 1100 ml Output Total 0 ml Balance 1100 ml Laboratory Data 24H LABS Laboratory Tests 2 02/28/21 06:29: Nucleated Red Blood Cells % (auto) 0.0, Immature Platelet Fraction 17.0H, Anion Gap 5L, Glomerular Filtration Rate > 60.0, Calcium Level 7.2L, Magnesium Level 1.7L CBC/BMP Laboratory Tests 02/28/21 06:29 Microbiology Microbiology 02/22/21 Gastrointestinal Tract Panel (PCR) - Final, Complete ARA LIMON DO Feb 28, 2021 16:57
[2021-02-28 19:00] VITALS: BP 157/81
[2021-02-28] MEDS: RAMELTEON 8 MG TAB (ROZEREM) PO SCH (21:00)
[2021-02-28] MEDS: metroNIDAZOLE (FLAGYL) 500MG TABLET PO SCH (21:01)
[2021-02-28] MEDS: ATORVASTATIN 10 MG TAB PO SCH (21:01)
[2021-02-28] MEDS: CEFUROXIME 500 MG TAB PO SCH (21:01)
[2021-02-28] MEDS: LOPERAMIDE 2 MG CAPLET PO PRN (22:24)
[2021-03-01] MEDS: LOPERAMIDE 2 MG CAPLET PO PRN (00:24)
[2021-03-01] MEDS: PERCOCET 5MG/325MG TAB PO PRN (02:22)
[2021-03-01] MEDS: FIBER-CON 625 MG TAB PO SCH (05:22)
[2021-03-01 06:00] VITALS: BP 137/74
[2021-03-01 06:40] LABS: HEMATOCRIT 31.3 % (36.0-47.0); HEMOGLOBIN 10.5 g/dl (12.0-15.5); MEAN CORPUSCULAR HEMOGLOBIN 31.9 pg (27.0-33.0); MEAN CORPUSCULAR HGB CONC 33.5 g/dl (32.0-36.5); MEAN CORPUSCULAR VOLUME 95.1 fl (80.0-96.0); PLATELET COUNT, AUTOMATED 29 10^3/uL (150-450); RED BLOOD COUNT 3.29 10^6/uL (4.00-5.40); WHITE BLOOD COUNT 2.3 10^3/uL (4.0-10.0)
[2021-03-01 06:54] LABS: BLOOD UREA NITROGEN 4 MG/DL (7-18); CALCIUM LEVEL 7.9 MG/DL (8.8-10.2); CARBON DIOXIDE LEVEL 29 MEQ/L (21-32); CHLORIDE LEVEL 110 MEQ/L (98-107); CREATININE FOR GFR 0.44 MG/DL (0.55-1.30); GLOMERULAR FILTRATION RATE > 60.0 (>45); GLUCOSE, FASTING 88 MG/DL (70-100); MAGNESIUM LEVEL 1.7 MG/DL (1.8-2.4); POTASSIUM SERUM 4.3 MEQ/L (3.5-5.1); SODIUM LEVEL 144 MEQ/L (136-145)
[2021-03-01] MEDS ORDERED: FIBE62TA PO (09:00)
[2021-03-01] MEDS ORDERED: CHOL4PW PO (09:00)
[2021-03-01] MEDS ORDERED: LOPE2CAP PO (09:00)
[2021-03-01] MEDS ORDERED: METR-265 PO (09:00)
[2021-03-01] MEDS ORDERED: CEFU50TA PO (09:00)
[2021-03-01 10:11] VITALS: BP 112/73
[2021-03-01] MEDS: METOPROLOL TART 12.5 MG PER 1/2 TAB PO SCH (10:11)
[2021-03-01] MEDS: metroNIDAZOLE (FLAGYL) 500MG TABLET PO SCH (10:11)
[2021-03-01] MEDS: allopurinoL 100 MG TAB PO SCH (10:12)
[2021-03-01] MEDS: POTASSIUM CHLORIDE 10MEQ SR TABLET PO SCH (10:12)
[2021-03-01] MEDS: MAGNESIUM OXIDE 400MG TAB (MAG-OX) PO SCH (10:12)
[2021-03-01] MEDS: CEFUROXIME 500 MG TAB PO SCH (10:12)
[2021-03-01] MEDS: PREGABALIN 50 MG CAP (LYRICA) PO SCH (10:12)
[2021-03-01] MEDS: ACYCLOVIR 200 MG CAPSULE PO SCH (10:13)
--- NOTE | 2021-03-02 00:01 | DS.PDOC ---
Discharge Summary General Date of Admission Feb 24, 2021 at 09:36 Date of Discharge Mar 01, 2021 Discharge Summary PROCEDURES PERFORMED DURING STAY: None ADMITTING DIAGNOSES: 1. Diverticulitis 2. Pancytopenia 2/2 chemotherapy 3. Thrombocytopenia 2/2 chemotherapy 4. Hypertension 5. Fibromyalgia 6. Multiple myeloma DISCHARGE DIAGNOSES: 1. Diverticulitis 2. Pancytopenia 2/2 chemotherapy 3. Thrombocytopenia 2/2 chemotherapy 4. Hypertension 5. Fibromyalgia 6. Multiple myeloma COMPLICATIONS/CHIEF COMPLAINT: Abdominal Pain, Diarrhea. HISTORY OF PRESENT ILLNESS: Copied from admitting attending's H&P " Patient 65 years old female with past medical history of multiple myeloma currently on the therapy with bortezomib since 2019, hypertension, osteoarthritis, gout, hyperlipidemia, type 2 diabetes presented to hospital with moderate abdominal pain and diarrhea. Patient stated that 3 to 4 days ago she developed multiple episodes of diarrhea with diffuse abdominal pain, 5 out of 10. She denied any vomiting but stated that she has constant nausea. She denied fever, chills, chest pain, palpitations, dysuria. In ER patient was found to have no leukocytosis, platelet count of 45, potassium 2.7 magnesium 1.7. EKG negative for acute ischemic changes. " HOSPITAL COURSE: Patient's imaging demonstrated diverticulitis. Patient had allergies to penicillins and quinolones which made antibiotic choice restricted. Patient was put on meropenem and tolerated the meropenem well. Otherwise, patient's platelets continued to drop. I reached out to patient's cancer center. Patient recently had Velcade which most likely caused the pancytopenia. The platelets dropped to a low of 18 prior to trending upwards. Otherwise, patient's abdominal pain improved with the antibiotics and she was able to tolerate a diet. She completed 5 days of antibiotics here. Patient was switched to oral cefuroxime and metronidazole and did not have an adverse reaction. Patient felt ready for home and was discharged home today. DISCHARGE MEDICATIONS: Please see below. ALLERGIES: Please see below. PHYSICAL EXAMINATION ON DISCHARGE: VITAL SIGNS: Please see below. GENERAL: Comfortable, in no apparent distress. HEENT: Head normocephalic/atraumatic, EOMI, sclera clear. NECK: Supple. RESPIRATORY: Lungs clear to auscultation bilaterally, no rales, wheeze or rhonchi. CARDIOVASCULAR: Regular rate and rhythm. ABDOMEN: Soft, mild tenderness. Normal bowel sounds. MUSCLE SKELETAL: Muscle strength 5/5 in all extremities. NEUROLOGICAL: CN 312 grossly intact, no focal deficits noted. PSYCHOLOGICAL: Normal mood and affect LABORATORY DATA: Please see below. IMAGING: Radiologist interpretation CT abd/pelvis with IV contrast only Numerous diverticula of the colon especially the left colon and sigmoid colon. Some stranding along the left colon and mid sigmoid colon may be the result of changes of diverticulitis. Large hiatal hernia. PROGNOSIS: Good ACTIVITY: As tolerated. DIET: [place] diet DISCHARGE PLAN: Patient is to return home and complete 9 more days of cefuroxime and metronidazole. Recommending a bland diet. DISPOSITION: Home, Self-Care. DISCHARGE INSTRUCTIONS: 1. PCP within 1 week ITEMS TO FOLLOWUP ON ON OUTPATIENT: 1. Abdominal pain 2. CBC for pancytopenia DISCHARGE CONDITION: Stable Total time spent on discharge planning, discharge summary, and medication reconciliation: 45 minutes. Vital Signs/I&Os Vital Signs Date Time Temp Pulse Resp B/P (MAP) Pulse Ox O2 Delivery O2 Flow Rate FiO2 03/01/21 10:11 70 112/73 03/01/21 06:00 98.1 18 94 Room Air I&O- Last 24 Hours up to 6 AM 03/02/21 06:00 Intake Total 120 ml Balance 120 ml Laboratory Data Labs 24H Laboratory Tests 2 03/01/21 06:03: Nucleated Red Blood Cells % (auto) 0.0, Anion Gap 5L, Glomerular Filtration Rate > 60.0, Calcium Level 7.9L, Magnesium Level 1.7L CBC/BMP Laboratory Tests 03/01/21 06:03 Microbiology Microbiology 02/22/21 Gastrointestinal Tract Panel (PCR) - Final, Complete Discharge Medications Scheduled Acyclovir (Acyclovir) 400 Mg Tablet, 400 MG PO BID Allopurinol (Allopurinol) 100 Mg Tablet, 100 MG PO BID, (Reported) Aspirin (Ecotrin) 81 Mg Tablet.dr, 81 MG PO DAILY, (Reported) Atorvastatin Calcium (Atorvastatin Calcium) 10 Mg Tablet, 10 MG PO QHS, (Reported) Calcium Polycarbophil (Fiber-Lax) 625 Mg Tablet, 1 EA PO BID Cefuroxime Axetil (Cefuroxime) 500 Mg Tablet, 500 MG PO BID Cholestyramine (Cholestyramine Packet) 4 Gm Powd.pack, 4 GRAM PO DAILY Dexamethasone (Dexamethasone) 4 Mg Tablet, 20 MG PO QWEEK, (Reported) MONDAY Magnesium Oxide (Magnesium Oxide) 400 Mg Tablet, 400 MG PO BID, (Reported) HOLD FOR DIARRHEA Metoprolol Tartrate (Metoprolol Tartrate) 25 Mg Tablet, 12.5 MG PO BID, (Reported) Metronidazole (Metronidazole) 500 Mg Tablet, 500 MG PO TID Pantoprazole Sodium (Pantoprazole Sodium) 40 Mg Tablet.dr, 40 MG PO BID, (Reported) Potassium Chloride (Potassium Chloride) 20 Meq Tab.er.prt, 20 MEQ PO BID, (Reported) Pregabalin (Lyrica) 50 Mg Capsule, 50 MG PO BID, (Reported) Prochlorperazine Maleate (Prochlorperazine Maleate) 10 Mg Tablet, 10 MG PO Q6H Torsemide (Torsemide) 20 Mg Tablet, 20 MG PO DAILY, (Reported) Scheduled PRN Loperamide HCl (Loperamide) 2 Mg Capsule, 2 MG PO Q6HP PRN for loose stool Oxycodone HCl/Acetaminophen (Oxycodone-Acetaminophen 5-325) 1 Each Tablet, 1 TAB PO TIDP PRN for pain Allergies Coded Allergies: Penicillins (Verified Allergy, Severe, THROAT SWELLING/RASH, 08/07/20) duloxetine (Verified Allergy, Severe, Facial Swelling, Rash, 08/07/20) Quinolones (Verified Allergy, Intermediate, hives, 08/07/20) carisoprodol (Verified Allergy, Intermediate, hives, 08/07/20) ciprofloxacin (Verified Allergy, Intermediate, SCRATCHY THROAT, 08/07/20) doxycycline (Verified Allergy, Intermediate, HIVES, 08/07/20) gabapentin (Verified Allergy, Intermediate, hives, 08/07/20) spironolactone (Verified Allergy, Intermediate, hives, 08/07/20) amitriptyline (Verified Adverse Reaction, Intermediate, "PASS OUT", 08/07/20) ibuprofen (Verified Adverse Reaction, Intermediate, renal issues, 08/07/20) metformin (Verified Adverse Reaction, Intermediate, DIARRHEA, 08/07/20) ARA LIMON DO Mar 02, 2021 00:01
== END 2021-03-01 12:14 | disposition home health service (06) | DRG 391 ==
LOC: M ED 14:19 → M ED INP 17:38 → EDBEDREQ 18:00 → ENRESERV 21:41 → M MSPAV 22:30 → OBSVTOIN 02-24 09:36
PROVIDERS: ADMIT Internal Medicine; ATTEND Internal Medicine
DX: K57.32 Diverticulitis of large intestine without perforation or abscess without bleeding (principal); D61.810 Antineoplastic chemotherapy induced pancytopenia; C90.00 Multiple myeloma not having achieved remission; I10 Essential (primary) hypertension; M51.16 Intervertebral disc disorders with radiculopathy, lumbar region; M10.9 Gout, unspecified; E78.5 Hyperlipidemia, unspecified; E11.9 Type 2 diabetes mellitus without complications; Z79.82 Long term (current) use of aspirin; Z79.899 Other long term (current) drug therapy; Z88.0 Allergy status to penicillin; Z88.1 Allergy status to other antibiotic agents; Z88.6 Allergy status to analgesic agent; Z88.8 Allergy status to other drugs, medicaments and biological substances; M06.9 Rheumatoid arthritis, unspecified; M79.7 Fibromyalgia; G47.33 Obstructive sleep apnea (adult) (pediatric); Z90.49 Acquired absence of other specified parts of digestive tract; Z87.891 Personal history of nicotine dependence; Z20.822 Contact with and (suspected) exposure to COVID-19; E87.6 Hypokalemia; E83.42 Hypomagnesemia; D69.59 Other secondary thrombocytopenia; T45.1X5A Adverse effect of antineoplastic and immunosuppressive drugs, initial encounter

== ENCOUNTER → 2021-03-09 | Outpatient (REF) | payer MEDICARE, MEDICAID ==
[~2021-03-09] MED LIST changes: +CEFU50TA PO; +CHOL4PW PO; +FIBE62TA PO; +LOPE2CAP PO; +METR-265 PO; +PREG50CA PO
== END ==
LOC: M SFHCPLAZ 14:03
PROVIDERS: ATTEND Internal Medicine
DX: Z53.21 Procedure and treatment not carried out due to patient leaving prior to being seen by health care provider (principal)

== ENCOUNTER → 2021-03-09 | Outpatient (CLI) | payer MEDICARE ==
[~2021-03-09] MED LIST changes: +ASPI81CH33 PO; -DICY20TA11 PO; +DICY20TA20 PO; +FLUO10CA18 PO; +LOSA100T45 PO; -LOSA100T50 PO; +POTA-151 PO; -POTA20TA6 PO; -PROC10TA4; -PROC10TA4 PO; +PROC10TA5; +PROC10TA5 PO; +TIZA10TA PO; -TIZA4TAB4 PO
[2021-03-09 15:32] LABS: BASO % 0.9 % (0.0-1.0); EOS % 0.7 % (0.0-3.0); HEMATOCRIT 38.2 % (36.0-47.0); HEMOGLOBIN 12.5 g/dl (12.0-15.5); LYMPH # 0.9 10^3/uL (1.5-5.0); LYMPH % 20.1 % (24.0-44.0); MEAN CORPUSCULAR HEMOGLOBIN 31.3 pg (27.0-33.0); MEAN CORPUSCULAR HGB CONC 32.7 g/dl (32.0-36.5); MEAN CORPUSCULAR VOLUME 95.7 fl (80.0-96.0); MONO # 0.4 10^3/uL (0.0-0.8); MONO % 7.9 % (2.0-8.0); NEUTROPHILS # 3.2 10^3/uL (1.5-8.5); NEUTROPHILS % 69.7 % (36.0-66.0); PLATELET COUNT, AUTOMATED 95 10^3/uL (150-450); RED BLOOD COUNT 3.99 10^6/uL (4.00-5.40); WHITE BLOOD COUNT 4.6 10^3/uL (4.0-10.0)
[2021-03-09 15:58] LABS: BLOOD UREA NITROGEN 10 MG/DL (7-18); CALCIUM LEVEL 7.2 MG/DL (8.8-10.2); CARBON DIOXIDE LEVEL 32 MEQ/L (21-32); CHLORIDE LEVEL 104 MEQ/L (98-107); GLOMERULAR FILTRATION RATE > 60.0 (>45); GLUCOSE, FASTING 105 MG/DL (70-100); MAGNESIUM LEVEL 1.2 MG/DL (1.8-2.4); POTASSIUM SERUM 3.2 MEQ/L (3.5-5.1); SODIUM LEVEL 142 MEQ/L (136-145)
== END ==
LOC: M PLALAB 14:19
PROVIDERS: ATTEND Internal Medicine
DX: C90.00 Multiple myeloma not having achieved remission (principal); R19.7 Diarrhea, unspecified

== ENCOUNTER → 2021-03-15 | Outpatient (REF) | payer MEDICARE ==
[~2021-03-15] MED LIST changes: -ASPI81CH33 PO; +DICY20TA11 PO; -DICY20TA20 PO; -FLUO10CA18 PO; -LOSA100T45 PO; +LOSA100T50 PO; -POTA-151 PO; +POTA20TA6 PO; +PROC10TA4; +PROC10TA4 PO; -PROC10TA5; -PROC10TA5 PO; -TIZA10TA PO; +TIZA4TAB4 PO
[2021-03-15 14:52] LABS: BLOOD UREA NITROGEN 8 MG/DL (7-18); CALCIUM LEVEL 8.4 MG/DL (8.8-10.2); CARBON DIOXIDE LEVEL 29 MEQ/L (21-32); CHLORIDE LEVEL 110 MEQ/L (98-107); CREATININE FOR GFR 0.59 MG/DL (0.55-1.30); GLOMERULAR FILTRATION RATE > 60.0 (>45); GLUCOSE, FASTING 126 MG/DL (70-100); MAGNESIUM LEVEL 1.8 MG/DL (1.8-2.4); POTASSIUM SERUM 3.6 MEQ/L (3.5-5.1); SODIUM LEVEL 146 MEQ/L (136-145)
== END ==
LOC: M SHH 13:49
PROVIDERS: ATTEND Internal Medicine
DX: R19.7 Diarrhea, unspecified (principal)

== ENCOUNTER → 2021-04-22 | Outpatient (CLI) | payer MEDICAID, MEDICARE ==
[~2021-04-22] MED LIST changes: +ASPI81CH33 PO; -DICY20TA11 PO; +DICY20TA20 PO; +FLUO10CA18 PO; +LOSA100T45 PO; -LOSA100T50 PO; +POTA-151 PO; -POTA20TA6 PO; -PROC10TA4; -PROC10TA4 PO; +PROC10TA5; +PROC10TA5 PO; +TIZA10TA PO; -TIZA4TAB4 PO
[2021-04-22 17:26] LABS: BASO % 0.5 % (0.0-1.0); EOS # 0.1 10^3/uL (0.0-0.5); HEMOGLOBIN 13.5 g/dl (12.0-15.5); LYMPH # 1.4 10^3/uL (1.5-5.0); MEAN CORPUSCULAR HEMOGLOBIN 32.3 pg (27.0-33.0); MEAN CORPUSCULAR HGB CONC 33.8 g/dl (32.0-36.5); MEAN CORPUSCULAR VOLUME 95.7 fl (80.0-96.0); MONO # 0.3 10^3/uL (0.0-0.8); NEUTROPHILS # 3.6 10^3/uL (1.5-8.5); NEUTROPHILS % 66.1 % (36.0-66.0); PLATELET COUNT, AUTOMATED 102 10^3/uL (150-450); RED BLOOD COUNT 4.18 10^6/uL (4.00-5.40); WHITE BLOOD COUNT 5.5 10^3/uL (4.0-10.0)
[2021-04-22 17:30] LABS: APPEARANCE, URINE CLEAR (CLEAR); BACTERIA, URINE AUTO 1+ (NEGATIVE); BILIRUBIN, URINE AUTO NEGATIVE (NEGATIVE); BLOOD, URINE BLOOD NEGATIVE (NEGATIVE); COLOR, URINE STRAW (YELLOW); GLUCOSE, URINE (UA) AUTO NEGATIVE (NEGATIVE); KETONE, URINE AUTO NEGATIVE (NEGATIVE); LEUKOCYTE ESTERASE, URINE AUTO NEGATIVE (NEGATIVE); MUCUS, URINE SMALL (NEGATIVE); NITRITE, URINE AUTO NEGATIVE (NEGATIVE); PROTEIN, URINE AUTO NEGATIVE (NEGATIVE); RBC, URINE AUTO 0 /HPF (0-3); SPECIFIC GRAVITY URINE AUTO 1.005 (1.002-1.035); SQUAMOUS EPITHELIAL CELL UR AU 2 /HPF (0-6); UROBILINOGEN, URINE AUTO 0.2 mg/dL (0.0-2.0); WBC, URINE AUTO 0 /HPF (0-3)
[2021-04-22 17:54] LABS: ALBUMIN 3.6 GM/DL (3.2-5.2); ALT/SGPT 41 U/L (12-78); BILIRUBIN,TOTAL 1.1 MG/DL (0.2-1.0); BLOOD UREA NITROGEN 7 MG/DL (7-18); CALCIUM LEVEL 8.3 MG/DL (8.8-10.2); CARBON DIOXIDE LEVEL 35 MEQ/L (21-32); CHLORIDE LEVEL 100 MEQ/L (98-107); CREATININE FOR GFR 0.77 MG/DL (0.55-1.30); GLOMERULAR FILTRATION RATE > 60.0 (>45); GLUCOSE, FASTING 101 MG/DL (70-100); POTASSIUM SERUM 3.2 MEQ/L (3.5-5.1); SODIUM LEVEL 143 MEQ/L (136-145); TOTAL PROTEIN 6.3 GM/DL (6.4-8.2)
== END ==
LOC: M PLALAB 14:28
PROVIDERS: ATTEND Family Medicine
DX: R10.9 Unspecified abdominal pain (principal); E11.9 Type 2 diabetes mellitus without complications

== ENCOUNTER → 2021-04-23 | Outpatient (CLI) | payer MEDICARE, MEDICAID ==
[~2021-04-23] MED LIST changes: +ISOVUE-370 76% 100ML VIAL ONE
== END ==
LOC: M PLAIMG 08:12
PROVIDERS: ATTEND Family Medicine
DX: N20.0 Calculus of kidney (principal); N28.1 Cyst of kidney, acquired; K57.30 Diverticulosis of large intestine without perforation or abscess without bleeding; R10.32 Left lower quadrant pain
CPT/HCPCS: 74178; Q9967

== ENCOUNTER 2021-09-02 21:47 | Inpatient (IN) | payer MEDICARE, MEDICAID ==
[~2021-09-02] VITALS: Ht 165.1 cm; Wt 81.7 kg
[~2021-09-02 21:47] MED LIST changes: -AZAT50TA2 PO; +AZAT50TA37 PO; -D31000TA2 PO; +FEXO-117 PO; -FEXO180T58 PO; -ISOVUE-370 76% 100ML VIAL ONE; -RIFA300C3 PO; +RIFA300C8 PO; +VITA100093 PO
[2021-09-02 23:36] LABS: BASO % 0.3 % (0.0-1.0); EOS % 0.4 % (0.0-3.0); HEMATOCRIT 34.4 % (36.0-47.0); HEMOGLOBIN 11.3 g/dl (12.0-15.5); LYMPH # 1.2 10^3/uL (1.5-5.0); LYMPH % 16.7 % (24.0-44.0); MEAN CORPUSCULAR HEMOGLOBIN 33.4 pg (27.0-33.0); MEAN CORPUSCULAR HGB CONC 32.8 g/dl (32.0-36.5); MEAN CORPUSCULAR VOLUME 101.8 fl (80.0-96.0); MONO # 0.5 10^3/uL (0.0-0.8); MONO % 6.1 % (2.0-8.0); NEUTROPHILS # 5.6 10^3/uL (1.5-8.5); PLATELET COUNT, AUTOMATED 108 10^3/uL (150-450); RED BLOOD COUNT 3.38 10^6/uL (4.00-5.40); WHITE BLOOD COUNT 7.4 10^3/uL (4.0-10.0)
[2021-09-03 00:05] LABS: ALBUMIN 3.3 GM/DL (3.2-5.2); ALT/SGPT 18 U/L (12-78); BILIRUBIN,DIRECT 0.3 MG/DL (0.0-0.2); BILIRUBIN,TOTAL 1.2 MG/DL (0.2-1.0); BLOOD UREA NITROGEN 7 MG/DL (7-18); CALCIUM LEVEL 7.4 MG/DL (8.8-10.2); CARBON DIOXIDE LEVEL 29 MEQ/L (21-32); CHLORIDE LEVEL 104 MEQ/L (98-107); GLOMERULAR FILTRATION RATE > 60.0 (>45); GLUCOSE, FASTING 131 MG/DL (70-100); LIPASE 41 U/L (73-393); POTASSIUM SERUM 3.7 MEQ/L (3.5-5.1); SODIUM LEVEL 142 MEQ/L (136-145); TOTAL PROTEIN 6.1 GM/DL (6.4-8.2)
[2021-09-03 00:06] LABS: CK-MB VALUE MASS < 1.0 NG/ML (<3.6); CPK CREATINE PHOSPHOKINASE 44 U/L (26-192); MB/CK RELATIVE INDEX 2.27 (< OR =4)
[2021-09-03] MEDS ORDERED: ONDANSETRON 4MG/2ML VIAL IV ONE (03:50)
[2021-09-03] MEDS: MORPHINE 4 MG/ML 1ML VIAL/SYRINGE IV PRN ×2 (04:01→05:11)
[2021-09-03] MEDS ORDERED: ISOVUE-370 76% 100ML VIAL As Ordered ONE (04:08)
[2021-09-03] MEDS ORDERED: KETOROLAC 30 MG/ML 1ML VIAL IV ONE (05:30)
[2021-09-03] MEDS ORDERED: NS 1,000 ML IV ONE (05:30)
[2021-09-03] MEDS: MOXIFLOXACIN 400 MG TAB PO SCH (06:00)
[2021-09-03] MEDS ORDERED: HYDROMORPHONE HCL 0.5 MG/ 0.5 ML SYRINGE (J1170 PER 1) IV PRN (06:50)
[2021-09-03] MEDS ORDERED: APIXABAN 5 MG TAB (ELIQUIS) PO ONE (07:40)
[2021-09-03] MEDS: PERCOCET 5MG/325MG TAB PO PRN ×3 (08:23→20:32)
[2021-09-03] MEDS ORDERED: diphenhydrAMINE 50MG/ML VIAL (J1200) IV ONE (09:10)
[2021-09-03] MEDS ORDERED: methylPREDNISolone 40MG 1ML VIAL IV ONE (09:10)
[2021-09-03 09:15] LABS: INR 1.04
[2021-09-03 09:16] LABS: PARTIAL THROMBOPLASTIN TIME 29.5 SECONDS (25.9-37.0)
[2021-09-03 09:18] LABS: D-DIMER QUANT 738.24 ng/ml (<500)
[2021-09-03] MEDS ORDERED: PERCOCET 5MG/325MG TAB PO ONE (09:20)
[2021-09-03 10:12] LABS: RSV AMPLIFICATION NEGATIVE (NEGATIVE)
[2021-09-03] MEDS ORDERED: PREG50CA2 PO (11:02)
[2021-09-03] MEDS ORDERED: LOPE1CAP5 PO (11:02)
[2021-09-03] MEDS ORDERED: PANT40TA29 PO (11:02)
[2021-09-03] MEDS ORDERED: HOME MED LIST COMPLETE! XX SCH (11:20)
[2021-09-03 14:15] VITALS: BP 133/80
[2021-09-03] MEDS ORDERED: MOXI400T11 PO (15:34)
[2021-09-03] MEDS ORDERED: ELIQ5TAB PO (15:34)
[2021-09-03 20:00] VITALS: BP 114/62
[2021-09-03] MEDS: APIXABAN 5 MG TAB (ELIQUIS) PO SCH (20:32)
[2021-09-04] MEDS: MOXIFLOXACIN 400 MG TAB PO SCH (05:06)
[2021-09-04 05:20] VITALS: BP 140/88
[2021-09-04] MEDS: PERCOCET 5MG/325MG TAB PO PRN (05:29)
[2021-09-04 07:27] LABS: HEMATOCRIT 32.6 % (36.0-47.0); HEMOGLOBIN 10.4 g/dl (12.0-15.5); MEAN CORPUSCULAR HEMOGLOBIN 32.3 pg (27.0-33.0); MEAN CORPUSCULAR HGB CONC 31.9 g/dl (32.0-36.5); MEAN CORPUSCULAR VOLUME 101.2 fl (80.0-96.0); PLATELET COUNT, AUTOMATED 104 10^3/uL (150-450); RED BLOOD COUNT 3.22 10^6/uL (4.00-5.40); WHITE BLOOD COUNT 4.9 10^3/uL (4.0-10.0)
[2021-09-04] MEDS ORDERED: PRED20TA PO ×2 (07:31→07:33)
[2021-09-04] MEDS ORDERED: BENA25CA4 PO (07:31)
[2021-09-04] MEDS ORDERED: diphenhydrAMINE 25MG CAP PO ONE (08:00)
[2021-09-04] MEDS ORDERED: methylPREDNISolone 40MG 1ML VIAL IV ONE (08:00)
[2021-09-04 08:01] LABS: BLOOD UREA NITROGEN 14 MG/DL (7-18); CALCIUM LEVEL 7.6 MG/DL (8.8-10.2); CARBON DIOXIDE LEVEL 26 MEQ/L (21-32); CHLORIDE LEVEL 108 MEQ/L (98-107); CREATININE FOR GFR 0.63 MG/DL (0.55-1.30); GLOMERULAR FILTRATION RATE > 60.0 (>45); GLUCOSE, FASTING 236 MG/DL (70-100); POTASSIUM SERUM 3.9 MEQ/L (3.5-5.1); SODIUM LEVEL 143 MEQ/L (136-145)
[2021-09-04] MEDS: APIXABAN 5 MG TAB (ELIQUIS) PO SCH (09:22)
[2021-09-04 13:44] VITALS: BP 142/87
[2021-09-04 14:32] LABS: ALBUMIN 2.7 GM/DL (3.2-5.2); BILIRUBIN,DIRECT 0.2 MG/DL (0.0-0.2); BILIRUBIN,TOTAL 0.6 MG/DL (0.2-1.0); C REACTIVE PROTEIN QUANTITATIV 6.88 MG/DL (0.00-0.30); TOTAL PROTEIN 5.4 GM/DL (6.4-8.2)
[2021-09-10] MEDS ORDERED: APIXABAN 5 MG TAB (ELIQUIS) PO SCH (09:00)
== END 2021-09-04 17:50 | disposition home health service (06) | DRG 175 ==
LOC: M ED 21:47 → M ED INP 09-03 07:53 → ENRESERV 09-03 12:56 → M MS5PR 09-03 13:45
PROVIDERS: ADMIT General Practice; ATTEND General Practice
DX: I26.99 Other pulmonary embolism without acute cor pulmonale (principal); J18.9 Pneumonia, unspecified organism; C90.00 Multiple myeloma not having achieved remission; J44.0 Chronic obstructive pulmonary disease with (acute) lower respiratory infection; J98.11 Atelectasis; I10 Essential (primary) hypertension; M51.16 Intervertebral disc disorders with radiculopathy, lumbar region; G47.00 Insomnia, unspecified; K21.9 Gastro-esophageal reflux disease without esophagitis; J30.9 Allergic rhinitis, unspecified; M06.9 Rheumatoid arthritis, unspecified; M10.9 Gout, unspecified; E78.5 Hyperlipidemia, unspecified; M79.7 Fibromyalgia; E11.9 Type 2 diabetes mellitus without complications; G47.33 Obstructive sleep apnea (adult) (pediatric); Z90.49 Acquired absence of other specified parts of digestive tract; Z87.891 Personal history of nicotine dependence; K44.9 Diaphragmatic hernia without obstruction or gangrene; M47.812 Spondylosis without myelopathy or radiculopathy, cervical region; Z79.82 Long term (current) use of aspirin; Z79.899 Other long term (current) drug therapy; Z88.0 Allergy status to penicillin; Z88.1 Allergy status to other antibiotic agents; Z88.8 Allergy status to other drugs, medicaments and biological substances; Z88.6 Allergy status to analgesic agent

== ENCOUNTER → 2021-09-17 | Outpatient (CLI) | payer MEDICAID, MEDICARE, OTHER ==
[~2021-09-17] MED LIST changes: +BENA25CA4 PO; +ELIQ5TAB PO; +MOXI400T11 PO; +PRED20TA PO; +PREG50CA2 PO
[2021-09-17 13:52] LABS: FREE T4 1.44 NG/DL (0.76-1.46); THYROID STIMULATING HORMONE 0.195 uIU/ML (0.358-3.740)
[2021-09-17 14:23] LABS: HEMOGLOBIN A1c 6.6 %
== END ==
LOC: M PLALAB 10:41
PROVIDERS: ATTEND Physician Assistant
DX: C90.00 Multiple myeloma not having achieved remission (principal); E11.9 Type 2 diabetes mellitus without complications

== ENCOUNTER → 2021-09-29 | Outpatient (REF) | payer MEDICARE ==
[2021-09-29 18:49] LABS: FREE T4 1.05 NG/DL (0.76-1.46); THYROID STIMULATING HORMONE 0.444 uIU/ML (0.358-3.740)
[2021-10-01 17:37] LABS: FREE T3 2.8 PG/ML (2.2-4.0)
== END ==
LOC: M SHH 15:56
PROVIDERS: ATTEND Physician Assistant
DX: R94.6 Abnormal results of thyroid function studies (principal)

== ENCOUNTER → 2022-01-05 | Outpatient (CLI) | payer MEDICARE, MEDICAID ==
[~2022-01-05] MED LIST changes: +BUSP7.5T7 PO; +POTA-150 PO; -POTA10TA17 PO; -[UNRECOGNIZED DRUG - CODE] PO
[2022-01-05 18:11] LABS: BASO % 0.3 % (0.0-1.0); EOS # 0.1 10^3/uL (0.0-0.5); HEMOGLOBIN 12.6 g/dl (12.0-15.5); LYMPH # 1.6 10^3/uL (1.5-5.0); LYMPH % 25.8 % (24.0-44.0); MEAN CORPUSCULAR HGB CONC 32.3 g/dl (32.0-36.5); MONO # 0.3 10^3/uL (0.0-0.8); MONO % 4.2 % (2.0-8.0); NEUTROPHILS # 4.2 10^3/uL (1.5-8.5); NEUTROPHILS % 68.4 % (36.0-66.0); PLATELET COUNT, AUTOMATED 124 10^3/uL (150-450); RED BLOOD COUNT 3.94 10^6/uL (4.00-5.40); WHITE BLOOD COUNT 6.2 10^3/uL (4.0-10.0)
[2022-01-05 18:49] LABS: ERYTHROCYTE SEDIMENTATION RATE 27 mm/hr (0-30)
[2022-01-05 20:06] LABS: ALBUMIN 3.4 GM/DL (3.2-5.2); ALT/SGPT 23 U/L (12-78); BILIRUBIN,TOTAL 0.7 MG/DL (0.2-1.0); BLOOD UREA NITROGEN 7 MG/DL (7-18); CALCIUM LEVEL 6.8 MG/DL (8.8-10.2); CARBON DIOXIDE LEVEL 31 MEQ/L (21-32); CHLORIDE LEVEL 105 MEQ/L (98-107); CREATININE FOR GFR 0.56 MG/DL (0.55-1.30); GLOMERULAR FILTRATION RATE > 60.0 (>45); GLUCOSE, FASTING 105 MG/DL (70-100); MAGNESIUM LEVEL 1.2 MG/DL (1.8-2.4); POTASSIUM SERUM 3.4 MEQ/L (3.5-5.1); SODIUM LEVEL 143 MEQ/L (136-145); TOTAL PROTEIN 5.9 GM/DL (6.4-8.2)
[2022-01-05 20:07] LABS: FREE T4 1.16 NG/DL (0.76-1.46); NT-PRO BNP 107 PG/ML (<125); THYROID STIMULATING HORMONE 0.583 uIU/ML (0.358-3.740)
[2022-01-05 20:56] LABS: VITAMIN B12 LEVEL 243 PG/ML (247-911)
[2022-01-05 20:56] LABS: HEMOGLOBIN A1c 7.2 %
[2022-01-06 09:27] LABS: PTH INTACT 338.5 PG/ML (18.5-88.0); TOTAL 25(OH) VITAMIN D 10.3 NG/ML (30.0-100.0)
== END ==
LOC: M PLALAB 15:55
PROVIDERS: ATTEND Physician Assistant
DX: G62.9 Polyneuropathy, unspecified (principal); E83.51 Hypocalcemia; R60.9 Edema, unspecified; R19.7 Diarrhea, unspecified; Z79.899 Other long term (current) drug therapy

== ENCOUNTER → 2022-01-21 | Outpatient (CLI) | payer MEDICARE, MEDICAID ==
[~2022-01-21] MED LIST changes: +VITA500038 PO; +[UNRECOGNIZED DRUG - OTHER] PO
== END ==
LOC: M PLAIMG 11:23
PROVIDERS: ATTEND Physician Assistant
DX: M54.50 Low back pain, unspecified (principal)

== ENCOUNTER → 2022-01-27 | Outpatient (CLI) | payer MEDICARE ==
[~2022-01-27] MED LIST changes: -VITA500038 PO; -[UNRECOGNIZED DRUG - OTHER] PO
[2022-01-27 14:15] LABS: ALBUMIN 3.3 G/DL (3.2-5.2); BLOOD UREA NITROGEN 12 MG/DL (9-23); CALCIUM LEVEL 7.4 MG/DL (8.3-10.6); CARBON DIOXIDE LEVEL 35 MMOL/L (20-31); CHLORIDE LEVEL 99 MMOL/L (98-107); CREATININE FOR GFR 0.65 MG/DL (0.55-1.30); GLOMERULAR FILTRATION RATE > 60.0 (>45); GLUCOSE, FASTING 175 MG/DL (74-106); MAGNESIUM LEVEL 1.2 MG/DL (1.8-2.4); POTASSIUM SERUM 3.5 MMOL/L (3.5-5.1); SODIUM LEVEL 142 MMOL/L (136-145)
== END ==
LOC: M PLALAB 11:01
PROVIDERS: ATTEND Physician Assistant
DX: R60.0 Localized edema (principal)

== ENCOUNTER → 2022-02-17 | Outpatient (CLI) | payer MEDICARE ==
[~2022-02-17] MED LIST changes: +VITA500038 PO; +[UNRECOGNIZED DRUG - OTHER] PO
== END ==
LOC: M LABSMTC 10:48
PROVIDERS: ATTEND Anesthesiology
DX: Z01.812 Encounter for preprocedural laboratory examination (principal); Z11.52 Encounter for screening for COVID-19

== ENCOUNTER 2022-02-22 07:10 | Day surgery (SDC) | payer MEDICARE ==
[~2022-02-22] VITALS: Ht 165.1 cm; Wt 90.0 kg
[~2022-02-22 07:10] MED LIST changes: +NS 1,000 ML IV ONE
[2022-02-22] MEDS ORDERED: LIDOCAINE 2% 100MG/5ML SDV (FOR ANES.) As Ordered ONE (07:48)
[2022-02-22] MEDS ORDERED: propofoL 200 MG/20 ML VIAL As Ordered ONE (07:48)
[2022-02-22 08:37] VITALS: BP 118/56
== END 2022-02-22 08:50 | disposition home or self-care (01) ==
LOC: M OPP 07:10
PROVIDERS: ATTEND Internal Medicine Gastroenterology
DX: K57.30 Diverticulosis of large intestine without perforation or abscess without bleeding (principal); K52.9 Noninfective gastroenteritis and colitis, unspecified; M79.7 Fibromyalgia; G43.909 Migraine, unspecified, not intractable, without status migrainosus; J44.9 Chronic obstructive pulmonary disease, unspecified; F32.9 Major depressive disorder, single episode, unspecified; F41.9 Anxiety disorder, unspecified; Z79.01 Long term (current) use of anticoagulants; Z79.02 Long term (current) use of antithrombotics/antiplatelets; Z79.1 Long term (current) use of non-steroidal anti-inflammatories (NSAID); Z79.82 Long term (current) use of aspirin; Z79.899 Other long term (current) drug therapy; Z88.0 Allergy status to penicillin; Z88.1 Allergy status to other antibiotic agents; Z88.6 Allergy status to analgesic agent; Z88.8 Allergy status to other drugs, medicaments and biological substances

== ENCOUNTER → 2022-03-10 | Outpatient (CLI) | payer MEDICARE, MEDICAID ==
[~2022-03-10] MED LIST changes: -NS 1,000 ML IV ONE
[2022-03-10 16:02] LABS: MAGNESIUM LEVEL 1.1 MG/DL (1.8-2.4)
[2022-03-10 16:04] LABS: ALBUMIN 3.3 G/DL (3.2-5.2); ALKALINE PHOSPHATASE 61 U/L (46-116); ALT/SGPT 18 U/L (7.0-40); AST/SGOT 11 U/L (<34); BILIRUBIN,TOTAL 0.7 MG/DL (0.3-1.2); BLOOD UREA NITROGEN 11 MG/DL (9-23); CALCIUM LEVEL 8.1 MG/DL (8.3-10.6); CARBON DIOXIDE LEVEL 31 MMOL/L (20-31); CHLORIDE LEVEL 103 MMOL/L (98-107); CREATININE FOR GFR 0.71 MG/DL (0.55-1.30); GLOMERULAR FILTRATION RATE > 60.0 (>45); GLUCOSE, FASTING 131 MG/DL (74-106); POTASSIUM SERUM 3.9 MMOL/L (3.5-5.1); SODIUM LEVEL 141 MMOL/L (136-145); TOTAL PROTEIN 5.7 G/DL (5.7-8.2)
[2022-03-10 16:07] LABS: TOTAL 25(OH) VITAMIN D 25.1 NG/ML (20.0-100.0)
== END ==
LOC: M PLALAB 11:47
PROVIDERS: ATTEND Physician Assistant
DX: M85.88 Other specified disorders of bone density and structure, other site (principal); M51.37 Other intervertebral disc degeneration, lumbosacral region; M53.84 Other specified dorsopathies, thoracic region; E83.42 Hypomagnesemia

== ENCOUNTER → 2022-03-10 | Outpatient (CLI) | payer MEDICARE, MEDICAID | LOC: M PLALAB 11:52 | PROVIDERS: ATTEND Internal Medicine Gastroenterology | DX: K52.3 Indeterminate colitis (principal) ==

== ENCOUNTER → 2022-03-17 | Outpatient (REF) | payer MEDICARE, MEDICAID ==
[2022-03-22 23:07] LABS: CALPROTECTIN STOOL 113 ug/g (0-120); PANCREATIC ELASTASE STOOL 189 (>200)
== END ==
LOC: M LAB REF 18:50
PROVIDERS: ATTEND Internal Medicine Gastroenterology
DX: K52.3 Indeterminate colitis (principal)

== ENCOUNTER → 2022-03-22 | Outpatient (CLI) | payer MEDICARE, OTHER ==
[2022-03-22 16:03] LABS: MAGNESIUM LEVEL 1.1 MG/DL (1.8-2.4)
[2022-03-22 16:04] LABS: ALBUMIN 3.1 G/DL (3.2-5.2); ALKALINE PHOSPHATASE 67 U/L (46-116); ALT/SGPT 20 U/L (7.0-40); AST/SGOT < 8 U/L (<34); BILIRUBIN,TOTAL 0.6 MG/DL (0.3-1.2); BLOOD UREA NITROGEN 13 MG/DL (9-23); CALCIUM LEVEL 8.7 MG/DL (8.3-10.6); CARBON DIOXIDE LEVEL 36 MMOL/L (20-31); CHLORIDE LEVEL 99 MMOL/L (98-107); CREATININE FOR GFR 0.83 MG/DL (0.55-1.30); GLOMERULAR FILTRATION RATE > 60.0 (>45); GLUCOSE, FASTING 118 MG/DL (74-106); POTASSIUM SERUM 3.4 MMOL/L (3.5-5.1); SODIUM LEVEL 144 MMOL/L (136-145)
== END ==
LOC: M PLALAB 14:20
PROVIDERS: ATTEND Physician Assistant
DX: R60.0 Localized edema (principal); E83.42 Hypomagnesemia

== ENCOUNTER → 2022-04-20 | Outpatient (CLI) | payer MEDICARE, MEDICAID | LOC: M RAD 10:16 | PROVIDERS: ATTEND Physician Assistant | DX: R60.0 Localized edema (principal) ==

== ENCOUNTER → 2022-04-26 | Outpatient (CLI) | payer MEDICARE, MEDICAID ==
[~2022-04-26] MED LIST changes: +ISOVUE-370 76% 100ML VIAL As Ordered ONE
== END ==
LOC: M RAD 12:11
PROVIDERS: ATTEND Physician Assistant
DX: S22.080A Wedge compression fracture of T11-T12 vertebra, initial encounter for closed fracture (principal); M51.36 Other intervertebral disc degeneration, lumbar region; M54.2 Cervicalgia; X58.XXXA Exposure to other specified factors, initial encounter; Y92.9 Unspecified place or not applicable
CPT/HCPCS: 72125; 72128; 72131; Q9967

== ENCOUNTER → 2022-04-26 | Outpatient (CLI) | payer MEDICARE, MEDICAID ==
[~2022-04-26] MED LIST changes: +GASTROGRAFIN SOLUTION 30ML As Ordered ONE; -ISOVUE-370 76% 100ML VIAL As Ordered ONE
== END ==
LOC: M RAD 11:43
PROVIDERS: ATTEND Internal Medicine
DX: C90.00 Multiple myeloma not having achieved remission (principal); R91.1 Solitary pulmonary nodule
CPT/HCPCS: 74177; Q9963

== ENCOUNTER → 2022-05-02 | Outpatient (REF) | payer MEDICARE, MEDICAID, OTHER ==
[~2022-05-02] MED LIST changes: -GASTROGRAFIN SOLUTION 30ML As Ordered ONE
[2022-05-02 19:19] LABS: ALBUMIN 3.3 G/DL (3.2-5.2); ALKALINE PHOSPHATASE 81 U/L (46-116); ALT/SGPT 24 U/L (7.0-40); AST/SGOT 15 U/L (<34); BILIRUBIN,TOTAL 0.6 MG/DL (0.3-1.2); BLOOD UREA NITROGEN 14 MG/DL (9-23); CALCIUM LEVEL 8.5 MG/DL (8.3-10.6); CARBON DIOXIDE LEVEL 30 MMOL/L (20-31); CHLORIDE LEVEL 97 MMOL/L (98-107); CREATININE FOR GFR 0.62 MG/DL (0.55-1.30); GLOMERULAR FILTRATION RATE > 60.0 (>45); GLUCOSE, FASTING 102 MG/DL (74-106); MAGNESIUM LEVEL 1.5 MG/DL (1.8-2.4); POTASSIUM SERUM 3.6 MMOL/L (3.5-5.1); SODIUM LEVEL 139 MMOL/L (136-145); TOTAL PROTEIN 5.9 G/DL (5.7-8.2)
== END ==
LOC: M LAB REF 16:58
PROVIDERS: ATTEND Physician Assistant
DX: M54.16 Radiculopathy, lumbar region (principal)

== ENCOUNTER → 2022-05-19 | Outpatient (CLI) | payer MEDICARE, MEDICAID ==
[~2022-05-19] MED LIST changes: -COZA100T2 PO; +COZA100T3 PO
[2022-05-19 16:25] LABS: BLOOD UREA NITROGEN 19 MG/DL (9-23); CREATININE FOR GFR 0.64 MG/DL (0.55-1.30); GLOMERULAR FILTRATION RATE > 60.0 (>45)
== END ==
LOC: M PLALAB 12:30
PROVIDERS: ATTEND Physician Assistant
DX: M47.896 Other spondylosis, lumbar region (principal); M51.36 Other intervertebral disc degeneration, lumbar region

== ENCOUNTER → 2022-06-07 | Outpatient (CLI) | payer MEDICARE ==
[~2022-06-07] MED LIST changes: +PROHANCE 279.3MG/ML 15ML VIAL ONE; +PROHANCE 279.3MG/ML 5ML VIAL ONE
== END ==
LOC: M PLAIMG 12:13
PROVIDERS: ATTEND Physician Assistant
DX: M47.896 Other spondylosis, lumbar region (principal)
CPT/HCPCS: 72158; A9576

== ENCOUNTER → 2022-08-29 | Outpatient (CLI) | payer MEDICARE, MEDICAID ==
[~2022-08-29] MED LIST changes: +FLUT50SP17; -FLUTISP; -HYDR200T3 PO; +HYDR200T46 PO; -LOSA100T45 PO; +LOSA100T46 PO; -PROHANCE 279.3MG/ML 15ML VIAL ONE; -PROHANCE 279.3MG/ML 5ML VIAL ONE; -ROSU20TA5 PO; +ROSU20TA61 PO
== END ==
LOC: M RAD 13:00
PROVIDERS: ATTEND Physician Assistant
DX: I73.9 Peripheral vascular disease, unspecified (principal)

== ENCOUNTER → 2022-09-29 | Outpatient (CLI) | payer MEDICARE, MEDICAID ==
[~2022-09-29] MED LIST changes: -AMIT25TA17 PO; +AMIT25TA19 PO; -HM S0.65 NARES; +SALI0.6531 NARES
[2022-09-29 14:09] LABS: BASO % 0.6 % (0.0-1.0); EOS # 0.1 10^3/uL (0.0-0.5); EOS % 1.1 % (0.0-3.0); HEMATOCRIT 41.6 % (36.0-47.0); LYMPH # 1.4 10^3/uL (1.5-5.0); LYMPH % 22.1 % (24.0-44.0); MEAN CORPUSCULAR HEMOGLOBIN 30.4 pg (27.0-33.0); MEAN CORPUSCULAR HGB CONC 31.3 g/dl (32.0-36.5); MEAN CORPUSCULAR VOLUME 97.2 fl (80.0-96.0); MONO # 0.3 10^3/uL (0.0-0.8); MONO % 4.2 % (2.0-8.0); NEUTROPHILS # 4.6 10^3/uL (1.5-8.5); NEUTROPHILS % 71.5 % (36.0-66.0); PLATELET COUNT, AUTOMATED 127 10^3/uL (150-450); RED BLOOD COUNT 4.28 10^6/uL (4.00-5.40); WHITE BLOOD COUNT 6.4 10^3/uL (4.0-10.0)
[2022-09-29 14:44] LABS: HEMOGLOBIN A1c 8.8 % (4.0-6.0)
[2022-09-29 15:14] LABS: ALBUMIN 3.3 G/DL (3.2-5.2); ALKALINE PHOSPHATASE 85 U/L (46-116); ALT/SGPT 30 U/L (7.0-40); AST/SGOT 9 U/L (<34); BILIRUBIN,TOTAL 0.8 MG/DL (0.3-1.2); BLOOD UREA NITROGEN 13 MG/DL (9-23); CALCIUM LEVEL 8.8 MG/DL (8.3-10.6); CARBON DIOXIDE LEVEL 34 MMOL/L (20-31); CHLORIDE LEVEL 99 MMOL/L (98-107); CHOLESTEROL LEVEL 208 MG/DL (<200); CREATININE FOR GFR 0.64 MG/DL (0.55-1.30); GLOMERULAR FILTRATION RATE > 60.0 (>45); GLUCOSE, FASTING 164 MG/DL (74-106); MAGNESIUM LEVEL 1.5 MG/DL (1.8-2.4); POTASSIUM SERUM 3.3 MMOL/L (3.5-5.1); SODIUM LEVEL 141 MMOL/L (136-145); TOTAL 25(OH) VITAMIN D 28.6 NG/ML (20.0-100.0); TOTAL PROTEIN 5.8 G/DL (5.7-8.2); TRIGLYCERIDES LEVEL 814 MG/DL (<150)
[2022-09-29 15:38] LABS: CHOLESTEROL RISK RATIO 5.29 (<5); HDL CHOLESTEROL 39.3 MG/DL (>40); NON-HDL-C 168.7 MG/DL
== END ==
LOC: M PLALAB 10:19
PROVIDERS: ATTEND Physician Assistant
DX: E55.9 Vitamin D deficiency, unspecified (principal); E78.2 Mixed hyperlipidemia; E11.9 Type 2 diabetes mellitus without complications; M10.9 Gout, unspecified; C90.00 Multiple myeloma not having achieved remission

== ENCOUNTER → 2022-11-03 | Outpatient (REF) | payer MEDICARE, MEDICAID ==
[~2022-11-03] MED LIST changes: -COZA100T3 PO; +LORA-1041 PO; -LORA-674 PO; +LOSA-530 PO; -PREG50CA2 PO; +PREG50CA3 PO
[2022-11-03 17:19] LABS: BASO % 0.6 % (0.0-1.0); EOS # 0.1 10^3/uL (0.0-0.5); EOS % 1.1 % (0.0-3.0); HEMATOCRIT 39.9 % (36.0-47.0); HEMOGLOBIN 12.8 g/dl (12.0-15.5); LYMPH # 1.7 10^3/uL (1.5-5.0); LYMPH % 25.8 % (24.0-44.0); MEAN CORPUSCULAR HGB CONC 32.1 g/dl (32.0-36.5); MEAN CORPUSCULAR VOLUME 93.7 fl (80.0-96.0); MONO # 0.5 10^3/uL (0.0-0.8); MONO % 6.9 % (2.0-8.0); NEUTROPHILS # 4.3 10^3/uL (1.5-8.5); NEUTROPHILS % 65.1 % (36.0-66.0); PLATELET COUNT, AUTOMATED 137 10^3/uL (150-450); RED BLOOD COUNT 4.26 10^6/uL (4.00-5.40); WHITE BLOOD COUNT 6.6 10^3/uL (4.0-10.0)
[2022-11-03 17:54] LABS: ALBUMIN 3.1 G/DL (3.2-5.2); ALKALINE PHOSPHATASE 88 U/L (46-116); ALT/SGPT 28 U/L (7.0-40); AST/SGOT 20 U/L (<34); BILIRUBIN,TOTAL 0.9 MG/DL (0.3-1.2); BLOOD UREA NITROGEN 7 MG/DL (9-23); CALCIUM LEVEL 7.6 MG/DL (8.3-10.6); CARBON DIOXIDE LEVEL 35 MMOL/L (20-31); CHLORIDE LEVEL 94 MMOL/L (98-107); CREATININE FOR GFR 0.66 MG/DL (0.55-1.30); GLOMERULAR FILTRATION RATE > 60.0 (>45); GLUCOSE, FASTING 149 MG/DL (74-106); MAGNESIUM LEVEL 1.4 MG/DL (1.8-2.4); POTASSIUM SERUM 2.9 MMOL/L (3.5-5.1); SODIUM LEVEL 139 MMOL/L (136-145); TOTAL PROTEIN 5.9 G/DL (5.7-8.2)
== END ==
LOC: M LABDRAWP 16:43
PROVIDERS: ATTEND Physician Assistant
DX: M79.89 Other specified soft tissue disorders (principal); M79.604 Pain in right leg; M79.605 Pain in left leg; M79.7 Fibromyalgia

== ENCOUNTER → 2023-02-10 | Outpatient (REF) | payer MEDICARE, MEDICAID ==
[~2023-02-10] MED LIST changes: -FLUT50SP17; +FLUTISP; +HYDR-161 PO; -HYDR10TAB PO
[2023-02-10 12:08] LABS: BASO % 0.4 % (0.0-1.0); EOS # 0.1 10^3/uL (0.0-0.5); EOS % 0.8 % (0.0-3.0); HEMATOCRIT 44.9 % (36.0-47.0); HEMOGLOBIN 14.2 g/dl (12.0-15.5); LYMPH # 2.1 10^3/uL (1.5-5.0); LYMPH % 26.3 % (24.0-44.0); MEAN CORPUSCULAR HEMOGLOBIN 30.5 pg (27.0-33.0); MEAN CORPUSCULAR HGB CONC 31.6 g/dl (32.0-36.5); MEAN CORPUSCULAR VOLUME 96.6 fl (80.0-96.0); MONO # 0.4 10^3/uL (0.0-0.8); MONO % 5.2 % (2.0-8.0); NEUTROPHILS # 5.3 10^3/uL (1.5-8.5); PLATELET COUNT, AUTOMATED 125 10^3/uL (150-450); RED BLOOD COUNT 4.65 10^6/uL (4.00-5.40); WHITE BLOOD COUNT 7.9 10^3/uL (4.0-10.0)
[2023-02-10 12:10] LABS: APPEARANCE, URINE CLEAR (CLEAR); BACTERIA, URINE AUTO 1+ (NEGATIVE); BILIRUBIN, URINE AUTO NEGATIVE (NEGATIVE); BLOOD, URINE BLOOD NEGATIVE (NEGATIVE); COLOR, URINE YELLOW (YELLOW); GLUCOSE, URINE (UA) AUTO 3+ mg/dL (NEGATIVE); KETONE, URINE AUTO TRACE mg/dL (NEGATIVE); LEUKOCYTE ESTERASE, URINE AUTO TRACE (NEGATIVE); NITRITE, URINE AUTO NEGATIVE (NEGATIVE); PROTEIN, URINE AUTO NEGATIVE (NEGATIVE); RBC, URINE AUTO 0 /HPF (0-3); SQUAMOUS EPITHELIAL CELL UR AU 2 /HPF (0-6); UROBILINOGEN, URINE AUTO 0.2 mg/dL (0.0-2.0); WBC, URINE AUTO 2 /HPF (0-3)
[2023-02-10 12:27] LABS: URIC ACID 4.5 MG/DL (3.1-7.8)
[2023-02-10 12:30] LABS: ALBUMIN 3.1 G/DL (3.2-5.2); ALKALINE PHOSPHATASE 108 U/L (46-116); ALT/SGPT 26 U/L (7.0-40); AST/SGOT 15 U/L (<34); BILIRUBIN,TOTAL 0.8 MG/DL (0.3-1.2); BLOOD UREA NITROGEN 9 MG/DL (9-23); CARBON DIOXIDE LEVEL 31 MMOL/L (20-31); CHLORIDE LEVEL 99 MMOL/L (98-107); CREATININE FOR GFR 0.57 MG/DL (0.55-1.30); GLOMERULAR FILTRATION RATE > 60.0 (>45); GLUCOSE, FASTING 149 MG/DL (74-106); MAGNESIUM LEVEL 1.8 MG/DL (1.8-2.4); POTASSIUM SERUM 3.4 MMOL/L (3.5-5.1); SODIUM LEVEL 144 MMOL/L (136-145); TOTAL PROTEIN 5.7 G/DL (5.7-8.2)
[2023-02-10 12:32] LABS: TOTAL 25(OH) VITAMIN D 35.6 NG/ML (20.0-100.0)
[2023-02-10 12:33] LABS: HEMOGLOBIN A1c 8.4 % (4.0-6.0)
== END ==
LOC: M LAB REF 10:27
PROVIDERS: ATTEND Physician Assistant
DX: E11.9 Type 2 diabetes mellitus without complications (principal); E55.9 Vitamin D deficiency, unspecified; E78.2 Mixed hyperlipidemia; R35.0 Frequency of micturition; J44.9 Chronic obstructive pulmonary disease, unspecified

== ENCOUNTER → 2023-02-14 | Outpatient (REF) | payer MEDICARE, MEDICAID ==
[~2023-02-14] MED LIST changes: -HYDR-161 PO; +HYDR10TAB PO
[2023-02-14 16:07] LABS: APPEARANCE, URINE HAZY (CLEAR); BACTERIA, URINE AUTO NEGATIVE (NEGATIVE); BILIRUBIN, URINE AUTO NEGATIVE (NEGATIVE); BLOOD, URINE BLOOD NEGATIVE (NEGATIVE); COLOR, URINE YELLOW (YELLOW); GLUCOSE, URINE (UA) AUTO 3+ mg/dL (NEGATIVE); KETONE, URINE AUTO TRACE mg/dL (NEGATIVE); LEUKOCYTE ESTERASE, URINE AUTO NEGATIVE (NEGATIVE); NITRITE, URINE AUTO NEGATIVE (NEGATIVE); PROTEIN, URINE AUTO NEGATIVE (NEGATIVE); RBC, URINE AUTO 4 /HPF (0-3); SPECIFIC GRAVITY URINE AUTO 1.026 (1.002-1.035); SQUAMOUS EPITHELIAL CELL UR AU 16 /HPF (0-6); TRANSITIONAL EPITHELIAL AUTO <1 /HPF; UROBILINOGEN, URINE AUTO 0.2 mg/dL (0.0-2.0); WBC, URINE AUTO 7 /HPF (0-3)
== END ==
LOC: M LAB REF 15:28
PROVIDERS: ATTEND Physician Assistant
DX: R35.0 Frequency of micturition (principal); E11.9 Type 2 diabetes mellitus without complications; E55.9 Vitamin D deficiency, unspecified; E78.2 Mixed hyperlipidemia

== ENCOUNTER → 2023-05-15 | Outpatient (CLI) | payer MEDICARE, MEDICAID ==
[~2023-05-15] MED LIST changes: +HYDR-161 PO; -HYDR10TAB PO
[2023-05-15 14:03] LABS: BASO % 0.6 % (0.0-1.0); EOS # 0.1 10^3/uL (0.0-0.5); EOS % 1.7 % (0.0-3.0); HEMOGLOBIN 13.3 g/dl (12.0-15.5); LYMPH # 1.6 10^3/uL (1.5-5.0); LYMPH % 28.8 % (24.0-44.0); MEAN CORPUSCULAR HEMOGLOBIN 29.1 pg (27.0-33.0); MEAN CORPUSCULAR HGB CONC 30.9 g/dl (32.0-36.5); MEAN CORPUSCULAR VOLUME 94.1 fl (80.0-96.0); MONO # 0.4 10^3/uL (0.0-0.8); MONO % 7.2 % (2.0-8.0); NEUTROPHILS # 3.3 10^3/uL (1.5-8.5); NEUTROPHILS % 61.3 % (36.0-66.0); PLATELET COUNT, AUTOMATED 112 10^3/uL (150-450); RED BLOOD COUNT 4.57 10^6/uL (4.00-5.40); WHITE BLOOD COUNT 5.4 10^3/uL (4.0-10.0)
[2023-05-15 14:05] LABS: ALBUMIN 3.4 G/DL (3.2-5.2); ALKALINE PHOSPHATASE 84 U/L (46-116); ALT/SGPT 39 U/L (7.0-40); AST/SGOT 16 U/L (<34); BILIRUBIN,TOTAL 0.9 MG/DL (0.3-1.2); BLOOD UREA NITROGEN 24 MG/DL (9-23); CALCIUM LEVEL 8.4 MG/DL (8.3-10.6); CARBON DIOXIDE LEVEL 38 MMOL/L (20-31); CHLORIDE LEVEL 99 MMOL/L (98-107); CHOLESTEROL LEVEL 169 MG/DL (<200); CHOLESTEROL RISK RATIO 5.23 (<5); CREATININE FOR GFR 0.75 MG/DL (0.55-1.30); GLOMERULAR FILTRATION RATE > 60.0 (>45); GLUCOSE, FASTING 136 MG/DL (74-106); HDL CHOLESTEROL 32.3 MG/DL (>40); MAGNESIUM LEVEL 1.6 MG/DL (1.8-2.4); NON-HDL-C 136.7 MG/DL; POTASSIUM SERUM 3.7 MMOL/L (3.5-5.1); SODIUM LEVEL 140 MMOL/L (136-145); TOTAL PROTEIN 5.7 G/DL (5.7-8.2); TRIGLYCERIDES LEVEL 549 MG/DL (<150)
[2023-05-15 14:07] LABS: THYROID STIMULATING HORMONE 1.617 uIU/ML (0.55-4.78); TOTAL 25(OH) VITAMIN D 37.7 NG/ML (20.0-100.0)
[2023-05-15 14:19] LABS: HEMOGLOBIN A1c 7.4 % (4.0-6.0)
== END ==
LOC: M PLALAB 08:53
PROVIDERS: ATTEND Physician Assistant
DX: Z00.00 Encounter for general adult medical examination without abnormal findings (principal); E11.9 Type 2 diabetes mellitus without complications; E55.9 Vitamin D deficiency, unspecified; G47.00 Insomnia, unspecified; E83.42 Hypomagnesemia; E78.2 Mixed hyperlipidemia; I10 Essential (primary) hypertension

== ENCOUNTER 2023-12-15 18:12 | Inpatient (IN) | payer MEDICARE, OTHER ==
[~2023-12-15] VITALS: Ht 162.6 cm; Wt 66.5 kg
[~2023-12-15 18:12] MED LIST changes: -ESOM0.1C PO; +ESOM1CAP20 PO; -ESOM1CAP5 PO; +ESOM20CA2 PO; +FLUO-290 PO; -FLUO10CA18 PO; +ONDA-282 PO; -ONDA4TAB6 PO; +RIFA300C62 PO; -RIFA300C8 PO; -ROSU20TA61 PO; +ROSU20TA86 PO
[2023-12-15 18:59] LABS: BASO # 0.1 10^3/uL (0.0-0.2); BASO % 0.4 % (0.0-1.0); HEMOGLOBIN 11.8 g/dl (12.0-15.5); LYMPH # 0.9 10^3/uL (1.5-5.0); LYMPH % 7.7 % (24.0-44.0); MEAN CORPUSCULAR HEMOGLOBIN 23.2 pg (27.0-33.0); MEAN CORPUSCULAR HGB CONC 30.3 g/dl (32.0-36.5); MEAN CORPUSCULAR VOLUME 76.8 fl (80.0-96.0); MONO # 0.5 10^3/uL (0.0-0.8); MONO % 4.4 % (2.0-8.0); NEUTROPHILS # 9.7 10^3/uL (1.5-8.5); NEUTROPHILS % 84.7 % (36.0-66.0); PLATELET COUNT, AUTOMATED 171 10^3/uL (150-450); RED BLOOD COUNT 5.08 10^6/uL (4.00-5.40); WHITE BLOOD COUNT 11.4 10^3/uL (4.0-10.0)
[2023-12-15 19:20] LABS: ABG BASE EXCESS 4.2 (-2.0-2.0); ABG HCO3 27.2 MMOL/L (22.0-26.0); ABG O2 SATURATION 94.3 % (95.0-99.0); ABG PARTIAL PRESSURE CO2 35.3 mmHg (35.0-45.0); ABG PARTIAL PRESSURE O2 71.3 mmHg (75.0-100.0); ABG STANDARD HCO3 28.2 MMOL/L. (22.0-26.0); ABG TOTAL CO2 28.3 MMOL/L (23.0-31.0); ABG pH (ARTERIAL) 7.505 UNITS (7.350-7.450)
[2023-12-15] MEDS: CEFEPIME HCL 2 GM in D5W MINI-BAG PLUS 50 ML IV ONE (19:23)
[2023-12-15] MEDS: ASPIRIN 81MG CHEW TABLET PO ONE (19:23)
[2023-12-15] MEDS: NITROGLYCERIN 0.4MG SUBL TABLET SL ONE (19:24)
[2023-12-15 19:27] LABS: CPK CREATINE PHOSPHOKINASE 932 U/L (34-145)
[2023-12-15 19:38] LABS: ALBUMIN 3.4 G/DL (3.2-5.2); ALKALINE PHOSPHATASE 83 U/L (46-116); ALT/SGPT 18 U/L (7.0-40); AST/SGOT 18 U/L (<34); BILIRUBIN,DIRECT 0.3 MG/DL (<0.4); BILIRUBIN,TOTAL 0.9 MG/DL (0.3-1.2); BLOOD UREA NITROGEN 19 MG/DL (9-23); CALCIUM LEVEL 8.9 MG/DL (8.3-10.6); CARBON DIOXIDE LEVEL 29 MMOL/L (20-31); CHLORIDE LEVEL 104 MMOL/L (98-107); CK-MB VALUE MASS 3.7 NG/ML (<3.6); CREATININE FOR GFR 0.66 MG/DL (0.55-1.30); FREE T4 1.43 NG/DL (0.89-1.76); GLOMERULAR FILTRATION RATE > 60.0 (>45); GLUCOSE, FASTING 144 MG/DL (74-106); MAGNESIUM LEVEL 1.7 MG/DL (1.8-2.4); MB/CK RELATIVE INDEX 0.39 (< OR =4); PHOSPHORUS LEVEL 3.3 MG/DL (2.4-5.1); POTASSIUM SERUM 2.6 MMOL/L (3.5-5.1); SODIUM LEVEL 143 MMOL/L (136-145); THYROID STIMULATING HORMONE 0.172 uIU/ML (0.55-4.78); TOTAL PROTEIN 6.2 G/DL (5.7-8.2)
[2023-12-15] MEDS: MAGNESIUM OXIDE 400MG TAB (MAG-OX) PO ONE (19:47)
[2023-12-15] MEDS: POTASSIUM CHLORIDE 10MEQ SR TABLET PO ONE ×2 (19:47→22:11)
[2023-12-15] MEDS: KCL 10MEQ/100ML SWI (KRUN) 10 MEQ in IV 1 EA IV ONE (19:47)
[2023-12-15] MEDS ORDERED: ISOVUE-370 76% 100ML VIAL As Ordered ONE (19:52)
[2023-12-15 20:30] LABS: MB/CK RELATIVE INDEX 0.35 (< OR =4)
[2023-12-15] MEDS: PREGABALIN 100 MG CAP (LYRICA) PO SCH (21:00)
[2023-12-15] MEDS ORDERED: MSIR30TA PO (22:03)
[2023-12-15] MEDS ORDERED: BACTDSTA PO (22:03)
[2023-12-15] MEDS ORDERED: DULO1CAP5 PO (22:03)
[2023-12-15] MEDS ORDERED: MORP30TASA PO (22:03)
[2023-12-15] MEDS ORDERED: CEFU1TAB22 PO (22:03)
[2023-12-15] MEDS ORDERED: AMLO1TAB24 PO (22:06)
[2023-12-15] MEDS ORDERED: PROC10TA5 PO (22:06)
[2023-12-15] MEDS: METOPROLOL 5 MG/5 ML VIAL IV SCH (22:12)
[2023-12-15] MEDS ORDERED: JARD1TAB3 PO (22:15)
[2023-12-15] MEDS ORDERED: TRAZ-252 PO (22:15)
[2023-12-15] MEDS: MAG SULF 1GM/100ML (MAG RUN) 1 GM in IV 1 EA IV SCH (22:22)
[2023-12-15] MEDS ORDERED: MOM 30ML SUSPENSION UDC PO PRN (23:15)
[2023-12-15] MEDS ORDERED: LEVALBUTEROL 1.25MG 0.5ML CONCENTRATE NEB INH PRN (23:15)
[2023-12-15] MEDS ORDERED: ACET1TAB55 PO (23:33)
[2023-12-15] MEDS ORDERED: LIDO1ADH52 TD (23:33)
[2023-12-15] MEDS ORDERED: TUMS500C PO (23:33)
[2023-12-15] MEDS ORDERED: HOME MED LIST COMPLETE! XX SCH (23:35)
[2023-12-16] VITALS (9 sets, daily range): BP systolic 111–142; BP diastolic 62–78; TEMP 96.7–100.6; O2SAT 95–98
[2023-12-16] MEDS: ACYCLOVIR 200 MG CAPSULE PO SCH (00:05)
[2023-12-16] MEDS: AZITHROMYCIN 250MG TABLET PO SCH (00:05)
[2023-12-16] MEDS: ENOXAPARIN 80MG/0.8ML SYRINGE (J1650 PER 10MG) SC SCH (00:06)
[2023-12-16] MEDS: allopurinoL 100 MG TAB PO SCH (00:06)
[2023-12-16] MEDS: LR 1,000 ML IV ONE (00:07)
[2023-12-16] MEDS: MORPHINE 30 MG TAB **MSIR PO PRN (00:08)
[2023-12-16] MEDS: ATORVASTATIN 10 MG TAB PO SCH (00:09)
[2023-12-16] MEDS: MORPHINE 30 MG SA TAB PO SCH (00:09)
[2023-12-16] MEDS: CALCIUM CARBONATE 500 MG CHEW U/D PO SCH (00:09)
[2023-12-16] MEDS: METOPROLOL TART 25 MG TABLET PO SCH (00:19)
[2023-12-16] MEDS: LEVALBUTEROL 1.25MG 0.5ML CONCENTRATE NEB INH SCH (02:00)
[2023-12-16 02:04] LABS: INR 1.21; PARTIAL THROMBOPLASTIN TIME 29.8 SECONDS (24.8-34.2); PROTHROMBIN TIME 14.9 SECONDS (12.5-14.5)
[2023-12-16] MEDS ORDERED: ALBUTEROL 90 MCG/ACT 8GM HFA INHALER INH PRN (03:40)
[2023-12-16] MEDS: CEFEPIME HCL 2 GM in D5W MINI-BAG PLUS 50 ML IV SCH (04:46)
[2023-12-16 04:50] LABS: BLOOD UREA NITROGEN 14 MG/DL (9-23); CALCIUM LEVEL 8.8 MG/DL (8.3-10.6); CARBON DIOXIDE LEVEL 30 MMOL/L (20-31); CHLORIDE LEVEL 108 MMOL/L (98-107); CREATININE FOR GFR 0.53 MG/DL (0.55-1.30); GLOMERULAR FILTRATION RATE > 60.0 (>45); GLUCOSE, FASTING 141 MG/DL (74-106); POTASSIUM SERUM 3.1 MMOL/L (3.5-5.1); SODIUM LEVEL 144 MMOL/L (136-145)
[2023-12-16] MEDS: COMBIVENT RESPIMAT 100-20MCG INHALER 4GM INH SCH (07:17)
[2023-12-16] MEDS: PROMETHAZINE 25 MG TAB PO ONE (07:59)
[2023-12-16] MEDS: PROMETHAZINE 25MG/ML 1ML VIAL IV ONE (08:25)
[2023-12-16] MEDS ORDERED: ENOXAPARIN 40MG/0.4ML SYRINGE (J1650 PER 10MG) SC SCH (09:00)
[2023-12-16] MEDS: POTASSIUM CHLORIDE 10MEQ SR TABLET PO ONE (09:20)
[2023-12-16] MEDS: DOCUSATE SODIUM 100MG CAPSULE PO SCH (09:24)
[2023-12-17 03:37] VITALS: BP 102/54; TEMP 99.9; O2SAT 94
[2023-12-17 07:51] VITALS: BP 118/76
[2023-12-17 07:56] VITALS: TEMP 97; O2SAT 89; O2SAT 94
[2023-12-17 08:15] LABS: BLOOD UREA NITROGEN 13 MG/DL (9-23); CALCIUM LEVEL 7.8 MG/DL (8.3-10.6); CARBON DIOXIDE LEVEL 28 MMOL/L (20-31); CHLORIDE LEVEL 110 MMOL/L (98-107); CREATININE FOR GFR 0.54 MG/DL (0.55-1.30); GLOMERULAR FILTRATION RATE > 60.0 (>45); GLUCOSE, FASTING 109 MG/DL (74-106); MAGNESIUM LEVEL 1.8 MG/DL (1.8-2.4); POTASSIUM SERUM 3.2 MMOL/L (3.5-5.1); SODIUM LEVEL 142 MMOL/L (136-145)
[2023-12-17] MEDS ORDERED: NITROGLYCERIN 0.4MG SUBL TABLET SL PRN (08:50)
[2023-12-17 09:16] LABS: CHOLESTEROL LEVEL 89 MG/DL (<200); CHOLESTEROL RISK RATIO 3.83 (<5); HDL CHOLESTEROL 23.2 MG/DL (>40); LDL CHOLESTEROL 34.8 MG/DL (<100); NON-HDL-C 65.8 MG/DL; TRIGLYCERIDES LEVEL 155 MG/DL (<150)
[2023-12-17] MEDS: NITROGLYCERIN 0.4MG SUBL TABLET SL STA (09:19)
[2023-12-17] MEDS: PANTOPRAZOLE 40MG VIAL IV ONE (09:26)
[2023-12-17] MEDS: POTASSIUM CHLORIDE 10MEQ SR TABLET PO ONE (09:26)
[2023-12-17] MEDS: ASPIRIN 81MG ENTERIC TABLET PO SCH (09:26)
[2023-12-17] MEDS: SUCRALFATE SUSP 1GM/10ML UD PO ONE (09:26)
[2023-12-17] MEDS: MAG SULF 1GM/100ML (MAG RUN) 1 GM in IV 1 EA IV SCH (09:26)
[2023-12-17] MEDS: MORPHINE 2 MG/ML 1ML VIAL IV ONE (09:27)
[2023-12-17] MEDS: SUCRALFATE SUSP 1GM/10ML UD PO SCH (11:56)
[2023-12-17 12:00] VITALS: BP 111/64; TEMP 96.6; O2SAT 96
[2023-12-17 12:43] LABS: CK-MB VALUE MASS 3.3 NG/ML (<3.6)
[2023-12-17 12:52] LABS: MB/CK RELATIVE INDEX 0.31 (< OR =4)
[2023-12-17 16:00] VITALS: BP 110/70; TEMP 97; O2SAT 94
[2023-12-17 18:54] LABS: CK-MB VALUE MASS 3.5 NG/ML (<3.6)
[2023-12-17 18:55] LABS: MB/CK RELATIVE INDEX 0.38 (< OR =4)
[2023-12-17 20:09] VITALS: BP 111/69; TEMP 96.9; O2SAT 97
[2023-12-18 03:40] VITALS: BP 100/63; TEMP 97.1; O2SAT 95
[2023-12-18] MEDS: ONDANSETRON 4MG 2ML VIAL IV SCH (08:01)
[2023-12-18 08:10] LABS: HEMATOCRIT 32.9 % (36.0-47.0); HEMOGLOBIN 9.8 g/dl (12.0-15.5); MEAN CORPUSCULAR HGB CONC 29.8 g/dl (32.0-36.5); MEAN CORPUSCULAR VOLUME 77.2 fl (80.0-96.0); PLATELET COUNT, AUTOMATED 126 10^3/uL (150-450); RED BLOOD COUNT 4.26 10^6/uL (4.00-5.40); WHITE BLOOD COUNT 4.7 10^3/uL (4.0-10.0)
[2023-12-18 08:22] VITALS: BP 113/61; TEMP 97.7; O2SAT 94
[2023-12-18 08:33] LABS: BLOOD UREA NITROGEN 11 MG/DL (9-23); CALCIUM LEVEL 7.7 MG/DL (8.3-10.6); CARBON DIOXIDE LEVEL 26 MMOL/L (20-31); CHLORIDE LEVEL 107 MMOL/L (98-107); CREATININE FOR GFR 0.45 MG/DL (0.55-1.30); GLOMERULAR FILTRATION RATE > 60.0 (>45); GLUCOSE, FASTING 111 MG/DL (74-106); POTASSIUM SERUM 3.7 MMOL/L (3.5-5.1); SODIUM LEVEL 140 MMOL/L (136-145)
[2023-12-18 08:47] LABS: ATYPICAL LYMPH 1 % (0-5); EOSINOPHILS 3 % (0-3); LYMPHOCYTES 13 % (16-44); METAMYELOCYTES 2 % (0-0); MONOCYTES 6 % (0-5); MYELOCYTES 1 % (0-0); NEUTROPHILS 68 % (28-66)
[2023-12-18 08:48] LABS: ANISOCYTOSIS 1+; HYPOCHROMASIA 2+; MICROCYTOSIS 1+; PLATELET ESTIMATE DECREASED (NORMAL)
[2023-12-18] MEDS: PROMETHAZINE 25MG/ML 1ML VIAL IV ONE (09:19)
[2023-12-18] MEDS: PANTOPRAZOLE 40MG TAB (PROTONIX) PO SCH (11:00)
[2023-12-18 12:00] VITALS: BP 121/69; O2SAT 97
[2023-12-18] MEDS: BISACODYL 10MG SUPP PR ONE (15:00)
[2023-12-18 15:54] LABS: CK-MB VALUE MASS < 1.0 NG/ML (<3.6)
[2023-12-18 15:55] LABS: CPK CREATINE PHOSPHOKINASE 359 U/L (34-145); MB/CK RELATIVE INDEX 0.27 (< OR =4)
[2023-12-18 17:21] VITALS: BP 128/61; TEMP 96.8; O2SAT 95
[2023-12-18 18:50] VITALS: BP 109/67; TEMP 98.1; O2SAT 96
[2023-12-18 19:41] VITALS: BP 111/69; TEMP 98.8; O2SAT 95
[2023-12-18 20:49] LABS: CK-MB VALUE MASS < 1.0 NG/ML (<3.6); CPK CREATINE PHOSPHOKINASE 360 U/L (34-145); MB/CK RELATIVE INDEX 0.27 (< OR =4)
[2023-12-18] MEDS: ATORVASTATIN 20 MG TAB PO SCH (21:22)
[2023-12-19 03:25] VITALS: TEMP 97.5; O2SAT 92
[2023-12-19 06:04] LABS: BASO % 0.8 % (0.0-1.0); EOS # 0.1 10^3/uL (0.0-0.5); HEMATOCRIT 33.2 % (36.0-47.0); HEMOGLOBIN 9.9 g/dl (12.0-15.5); LYMPH # 0.7 10^3/uL (1.5-5.0); LYMPH % 17.8 % (24.0-44.0); MEAN CORPUSCULAR HEMOGLOBIN 23.4 pg (27.0-33.0); MEAN CORPUSCULAR HGB CONC 29.8 g/dl (32.0-36.5); MEAN CORPUSCULAR VOLUME 78.5 fl (80.0-96.0); MONO # 0.2 10^3/uL (0.0-0.8); MONO % 4.8 % (2.0-8.0); NEUTROPHILS # 2.5 10^3/uL (1.5-8.5); NEUTROPHILS % 63.4 % (36.0-66.0); PLATELET COUNT, AUTOMATED 117 10^3/uL (150-450); RED BLOOD COUNT 4.23 10^6/uL (4.00-5.40); WHITE BLOOD COUNT 3.9 10^3/uL (4.0-10.0)
[2023-12-19 06:30] LABS: BLOOD UREA NITROGEN 9 MG/DL (9-23); CARBON DIOXIDE LEVEL 25 MMOL/L (20-31); CHLORIDE LEVEL 107 MMOL/L (98-107); CREATININE FOR GFR 0.45 MG/DL (0.55-1.30); GLOMERULAR FILTRATION RATE > 60.0 (>45); GLUCOSE, FASTING 106 MG/DL (74-106); POTASSIUM SERUM 4.1 MMOL/L (3.5-5.1); SODIUM LEVEL 139 MMOL/L (136-145)
[2023-12-19 12:00] VITALS: BP 99/67; TEMP 97.3; O2SAT 98
[2023-12-19 17:00] VITALS: BP 132/77
[2023-12-19 20:15] VITALS: BP 107/65; TEMP 98.8; O2SAT 98
[2023-12-19] MEDS: CEFDINIR 300 MG CAP (OMNICEF) PO SCH (20:52)
[2023-12-20 04:00] VITALS: BP 106/60; TEMP 98.8; O2SAT 95
[2023-12-20 06:24] LABS: BASO # 0.1 10^3/uL (0.0-0.2); BASO % 1.5 % (0.0-1.0); EOS # 0.1 10^3/uL (0.0-0.5); EOS % 1.8 % (0.0-3.0); HEMATOCRIT 30.9 % (36.0-47.0); HEMOGLOBIN 9.2 g/dl (12.0-15.5); LYMPH # 0.6 10^3/uL (1.5-5.0); MEAN CORPUSCULAR HEMOGLOBIN 22.7 pg (27.0-33.0); MEAN CORPUSCULAR HGB CONC 29.8 g/dl (32.0-36.5); MEAN CORPUSCULAR VOLUME 76.3 fl (80.0-96.0); MONO # 0.2 10^3/uL (0.0-0.8); MONO % 4.5 % (2.0-8.0); NEUTROPHILS # 2.7 10^3/uL (1.5-8.5); NEUTROPHILS % 67.4 % (36.0-66.0); PLATELET COUNT, AUTOMATED 121 10^3/uL (150-450); RED BLOOD COUNT 4.05 10^6/uL (4.00-5.40)
[2023-12-20 06:54] LABS: BLOOD UREA NITROGEN 9 MG/DL (9-23); CARBON DIOXIDE LEVEL 27 MMOL/L (20-31); CHLORIDE LEVEL 106 MMOL/L (98-107); GLOMERULAR FILTRATION RATE > 60.0 (>45); GLUCOSE, FASTING 120 MG/DL (74-106); POTASSIUM SERUM 3.9 MMOL/L (3.5-5.1); SODIUM LEVEL 138 MMOL/L (136-145)
[2023-12-20 10:49] VITALS: O2SAT 92
[2023-12-20 12:00] VITALS: BP 107/70; TEMP 98.1; O2SAT 93
[2023-12-20] MEDS: TAMSULOSIN 0.4 MG CAP PO SCH (21:03)
[2023-12-20 21:28] VITALS: BP 112/57; TEMP 98.4; O2SAT 92
[2023-12-21 04:00] VITALS: BP 115/63; TEMP 98.1; O2SAT 94
[2023-12-21 06:12] LABS: HEMATOCRIT 29.5 % (36.0-47.0); HEMOGLOBIN 8.9 g/dl (12.0-15.5); MEAN CORPUSCULAR HGB CONC 30.2 g/dl (32.0-36.5); MEAN CORPUSCULAR VOLUME 76.2 fl (80.0-96.0); PLATELET COUNT, AUTOMATED 103 10^3/uL (150-450); RED BLOOD COUNT 3.87 10^6/uL (4.00-5.40); WHITE BLOOD COUNT 3.2 10^3/uL (4.0-10.0)
[2023-12-21 06:30] LABS: BLOOD UREA NITROGEN 8 MG/DL (9-23); CALCIUM LEVEL 7.9 MG/DL (8.3-10.6); CARBON DIOXIDE LEVEL 27 MMOL/L (20-31); CHLORIDE LEVEL 103 MMOL/L (98-107); CREATININE FOR GFR 0.47 MG/DL (0.55-1.30); GLOMERULAR FILTRATION RATE > 60.0 (>45); GLUCOSE, FASTING 105 MG/DL (74-106); POTASSIUM SERUM 3.8 MMOL/L (3.5-5.1); SODIUM LEVEL 133 MMOL/L (136-145)
[2023-12-21 06:46] LABS: ATYPICAL LYMPH 3 % (0-5); BASOPHILS 1 % (0-1); EOSINOPHILS 2 % (0-3); LYMPHOCYTES 17 % (16-44); MONOCYTES 3 % (0-5); NEUTROPHILS 72 % (28-66)
[2023-12-21 06:47] LABS: ANISOCYTOSIS 1+; HYPOCHROMASIA 1+; PLATELET ESTIMATE DECREASED (NORMAL)
[2023-12-21 06:48] LABS: MICROCYTOSIS 1+
[2023-12-21 10:48] VITALS: BP 108/64; TEMP 98.2; O2SAT 96
[2023-12-21 11:49] LABS: PROCALCITONIN 0.07 ng/ml
[2023-12-21 12:09] LABS: ABG BASE EXCESS -0.4 (-2.0-2.0); ABG HCO3 24.2 MMOL/L (22.0-26.0); ABG O2 SATURATION 94.1 % (95.0-99.0); ABG PARTIAL PRESSURE CO2 39.6 mmHg (35.0-45.0); ABG PARTIAL PRESSURE O2 76.4 mmHg (75.0-100.0); ABG STANDARD HCO3 24.1 MMOL/L. (22.0-26.0); ABG TOTAL CO2 25.4 MMOL/L (23.0-31.0); ABG pH (ARTERIAL) 7.404 UNITS (7.350-7.450)
[2023-12-21] MEDS: ACETAMINOPHEN 325 MG TAB PO PRN (17:40)
[2023-12-21 19:03] LABS: URINE STREP PNEUMONIAE ANTIGEN NOT DETECTED (NOT DETECT)
[2023-12-21 20:00] VITALS: BP 106/62; TEMP 97.9; O2SAT 97
[2023-12-21] MEDS: MORPHINE 30 MG SA TAB PO SCH (20:24)
[2023-12-21 20:26] VITALS: BP_DIAS 62
[2023-12-22 04:00] VITALS: BP 104/63; TEMP 97.7; O2SAT 96
[2023-12-22 05:49] LABS: BASO % 0.9 % (0.0-1.0); EOS % 1.8 % (0.0-3.0); HEMOGLOBIN 9.1 g/dl (12.0-15.5); LYMPH # 0.5 10^3/uL (1.5-5.0); LYMPH % 23.3 % (24.0-44.0); MEAN CORPUSCULAR HGB CONC 30.3 g/dl (32.0-36.5); MEAN CORPUSCULAR VOLUME 75.8 fl (80.0-96.0); MONO # 0.1 10^3/uL (0.0-0.8); NEUTROPHILS # 1.2 10^3/uL (1.5-8.5); NEUTROPHILS % 55.3 % (36.0-66.0); PLATELET COUNT, AUTOMATED 112 10^3/uL (150-450); RED BLOOD COUNT 3.96 10^6/uL (4.00-5.40); WHITE BLOOD COUNT 2.2 10^3/uL (4.0-10.0)
[2023-12-22 06:24] LABS: BLOOD UREA NITROGEN 9 MG/DL (9-23); CALCIUM LEVEL 8.1 MG/DL (8.3-10.6); CARBON DIOXIDE LEVEL 26 MMOL/L (20-31); CHLORIDE LEVEL 105 MMOL/L (98-107); CREATININE FOR GFR 0.43 MG/DL (0.55-1.30); GLOMERULAR FILTRATION RATE > 60.0 (>45); GLUCOSE, FASTING 109 MG/DL (74-106); MAGNESIUM LEVEL 1.3 MG/DL (1.8-2.4); POTASSIUM SERUM 4.7 MMOL/L (3.5-5.1); SODIUM LEVEL 133 MMOL/L (136-145)
[2023-12-22 08:03] VITALS: BP_SYST 104
[2023-12-22] MEDS: MAG SULF 1GM/100ML (MAG RUN) 1 GM in IV 1 EA IV SCH (10:36)
[2023-12-22] MEDS ORDERED: ASPI81TAEC PO (11:54)
[2023-12-22] MEDS ORDERED: METO1TAB87 PO (11:54)
[2023-12-22] MEDS ORDERED: FLOM0.4C39 PO (11:54)
[2023-12-22] MEDS ORDERED: SUCR1ORA PO (11:54)
[2023-12-22 13:30] VITALS: BP 142/87; TEMP 97.7; O2SAT 95
[2023-12-22] MEDS: CEFDINIR 300 MG CAP (OMNICEF) PO ONE (14:29)
== END 2023-12-22 16:04 | disposition home or self-care (01) | DRG 871 ==
LOC: EDBD 18:12 → M ED 18:12 → M ED INP 23:13 → M PCU 12-16 01:43 → M MSPAV 12-18 18:46
PROVIDERS: ADMIT Student in an Organized Health Care Education/Training Program; ATTEND Hospitalist
PROC: B246ZZZ Ultrasonography of Right and Left Heart (ICD-10-PCS; principal; 2023-12-16)
DX: A41.9 Sepsis, unspecified organism (principal); U07.1 COVID-19; J15.9 Unspecified bacterial pneumonia; I21.4 Non-ST elevation (NSTEMI) myocardial infarction; C90.00 Multiple myeloma not having achieved remission; J96.11 Chronic respiratory failure with hypoxia; I24.89 Other forms of acute ischemic heart disease; J44.0 Chronic obstructive pulmonary disease with (acute) lower respiratory infection; K21.9 Gastro-esophageal reflux disease without esophagitis; M10.9 Gout, unspecified; E78.5 Hyperlipidemia, unspecified; M79.7 Fibromyalgia; I10 Essential (primary) hypertension; M54.9 Dorsalgia, unspecified; G89.29 Other chronic pain; K59.00 Constipation, unspecified; E83.42 Hypomagnesemia; G47.33 Obstructive sleep apnea (adult) (pediatric); R26.89 Other abnormalities of gait and mobility; K44.9 Diaphragmatic hernia without obstruction or gangrene; R07.89 Other chest pain; I48.91 Unspecified atrial fibrillation; E87.6 Hypokalemia; M06.9 Rheumatoid arthritis, unspecified; I89.0 Lymphedema, not elsewhere classified; E11.42 Type 2 diabetes mellitus with diabetic polyneuropathy; Z90.49 Acquired absence of other specified parts of digestive tract; Z90.79 Acquired absence of other genital organ(s); Z86.711 Personal history of pulmonary embolism; Z79.899 Other long term (current) drug therapy; Z88.0 Allergy status to penicillin; Z88.1 Allergy status to other antibiotic agents; Z88.6 Allergy status to analgesic agent; Z88.8 Allergy status to other drugs, medicaments and biological substances; Z79.891 Long term (current) use of opiate analgesic; Z99.81 Dependence on supplemental oxygen

== ENCOUNTER 2024-01-01 05:13 | Inpatient (IN) | payer MEDICARE, OTHER ==
[~2024-01-01] VITALS: Ht 162.6 cm; Wt 70.4 kg
[~2024-01-01 05:13] MED LIST changes: +AMLO1TAB24 PO; +ASPI81TAEC PO; +BACTDSTA PO; +CEFU1TAB22 PO; -CYCL5TAB PO; +CYCL5TAB4 PO; +DULO1CAP5 PO; +FLOM0.4C39 PO; +JARD1TAB3 PO; +LIDO1ADH52 TD; +MORP30TASA PO; +MSIR30TA PO; +SUCR1ORA PO; +TRAZ-252 PO; +TUMS500C PO
[2024-01-01 05:54] LABS: HEMATOCRIT 35.5 % (36.0-47.0); HEMOGLOBIN 10.8 g/dl (12.0-15.5); MEAN CORPUSCULAR HEMOGLOBIN 22.9 pg (27.0-33.0); MEAN CORPUSCULAR HGB CONC 30.4 g/dl (32.0-36.5); MEAN CORPUSCULAR VOLUME 75.4 fl (80.0-96.0); PLATELET COUNT, AUTOMATED 131 10^3/uL (150-450); RED BLOOD COUNT 4.71 10^6/uL (4.00-5.40)
[2024-01-01 06:00] LABS: WHITE BLOOD COUNT 1.7 10^3/uL (4.0-10.0)
[2024-01-01] MEDS: METOPROLOL 5 MG/5 ML VIAL IV STA (06:01)
[2024-01-01] MEDS: NS 1,000 ML IV ONE (06:02)
[2024-01-01 06:20] LABS: BLOOD UREA NITROGEN 12 MG/DL (9-23); CALCIUM LEVEL 8.9 MG/DL (8.3-10.6); CARBON DIOXIDE LEVEL 33 MMOL/L (20-31); CHLORIDE LEVEL 101 MMOL/L (98-107); CK-MB VALUE MASS 1.4 NG/ML (<3.6); CREATININE FOR GFR 0.56 MG/DL (0.55-1.30); GLOMERULAR FILTRATION RATE > 60.0 (>45); GLUCOSE, FASTING 117 MG/DL (74-106); POTASSIUM SERUM 3.1 MMOL/L (3.5-5.1); SODIUM LEVEL 140 MMOL/L (136-145)
[2024-01-01 06:23] LABS: CPK CREATINE PHOSPHOKINASE 39 U/L (34-145); MB/CK RELATIVE INDEX 3.58 (< OR =4); THYROID STIMULATING HORMONE 0.902 uIU/ML (0.55-4.78)
[2024-01-01 06:49] LABS: ANISOCYTOSIS 1+; ATYPICAL LYMPH 7 % (0-5); BASOPHILS 3 % (0-1); EOSINOPHILS 1 % (0-3); HYPOCHROMASIA 1+; LYMPHOCYTES 52 % (16-44); MONOCYTES 12 % (0-5); NEUTROPHILS 24 % (28-66); PLATELET ESTIMATE DECREASED (NORMAL)
[2024-01-01 06:50] LABS: OVALOCYTES 1+; POIKILOCYTOSIS 1+
[2024-01-01] MEDS ORDERED: METOPROLOL 5 MG/5 ML VIAL IV SCH (08:50)
[2024-01-01] MEDS: POTASSIUM CHLORIDE 10MEQ SR TABLET PO ONE (09:01)
[2024-01-01 09:32] LABS: CK-MB VALUE MASS 1.7 NG/ML (<3.6)
[2024-01-01 09:33] LABS: MB/CK RELATIVE INDEX 4.72 (< OR =4)
[2024-01-01] MEDS ORDERED: DIGOXIN INJ 0.5 MG/2 ML AMP IV STA (09:42)
[2024-01-01] MEDS: DIGOXIN INJ 0.5 MG/2 ML AMP IV STA (09:52)
[2024-01-01] MEDS ORDERED: ENOXAPARIN 100MG/1ML SYRINGE (J1650 PER 10MG) SC SCH (10:00)
[2024-01-01 11:32] LABS: BASO % 2.2 % (0.0-1.0); EOS % 1.6 % (0.0-3.0); LYMPH # 1.2 10^3/uL (1.5-5.0); LYMPH % 62.2 % (24.0-44.0); MONO # 0.2 10^3/uL (0.0-0.8); MONO % 8.6 % (2.0-8.0); NEUTROPHILS % 18.4 % (36.0-66.0)
[2024-01-01 11:38] LABS: NEUTROPHILS # 0.3 10^3/uL (1.5-8.5)
[2024-01-01] MEDS ORDERED: FLOM0.4C39 PO (12:03)
[2024-01-01] MEDS ORDERED: DOCU100C16 PO (12:03)
[2024-01-01] MEDS ORDERED: HOME MED LIST COMPLETE! XX SCH (12:05)
[2024-01-01] MEDS ORDERED: DEXTROSE 50% 50ML SYRINGE IV PRN (12:25)
[2024-01-01] MEDS ORDERED: GLUCAGON INJ 1MG VIAL SC PRN (12:25)
[2024-01-01] MEDS ORDERED: GLUCOSE 4 GM CHEW PO PRN (12:25)
[2024-01-01] MEDS: MORPHINE 30 MG TAB **MSIR PO PRN (13:08)
[2024-01-01] MEDS: ONDANSETRON 4MG 2ML VIAL IV PRN (13:09)
[2024-01-01] MEDS ORDERED: LORazepam 1 MG TAB PO ONE (14:05)
[2024-01-01] MEDS: METOPROLOL TART 12.5 MG PER 1/2 TAB PO SCH (14:10)
[2024-01-01] MEDS: PANTOPRAZOLE 40MG TAB (PROTONIX) PO SCH (14:18)
[2024-01-01] MEDS: allopurinoL 100 MG TAB PO SCH (14:18)
[2024-01-01] MEDS: ASPIRIN 81MG ENTERIC TABLET PO SCH (14:19)
[2024-01-01] MEDS: ACYCLOVIR 200 MG CAPSULE PO SCH (14:19)
[2024-01-01] MEDS: PREGABALIN 100 MG CAP (LYRICA) PO SCH (14:22)
[2024-01-01 14:33] LABS: INR 1.1; PARTIAL THROMBOPLASTIN TIME 27.1 SECONDS (24.8-34.2); PROTHROMBIN TIME 13.9 SECONDS (12.5-14.5)
[2024-01-01 14:57] LABS: ERYTHROCYTE SEDIMENTATION RATE 7 mm/hr (0-30)
[2024-01-01 15:22] LABS: PROCALCITONIN 0.04 ng/ml
[2024-01-01] MEDS: LR 500 ML IV ONE (15:39)
[2024-01-01] MEDS: LR 1,000 ML IV ONE (16:35)
[2024-01-01] MEDS: DIGOXIN INJ 0.5 MG/2 ML AMP IV ONE (16:37)
[2024-01-01] MEDS: MAG SULF 1GM/100ML (MAG RUN) 1 GM in IV 1 EA IV SCH (16:53)
[2024-01-01] MEDS ORDERED: FILGRASTIM 300MCG 0.5ML SYRINGE **SC ADMINISTRATION ONLY SC ONE (17:00)
[2024-01-01] MEDS: INSULIN LISPRO (NovoLOG) PER UNIT SC SCH ×2 (17:30→21:00)
[2024-01-01 17:39] VITALS: BP 108/62; TEMP 97.8; O2SAT 98
[2024-01-01] MEDS: LORazepam 0.5 MG TAB PO ONE (17:43)
[2024-01-01] MEDS: MIDODRINE 5 MG TAB PO SCH (18:00)
[2024-01-01 20:21] VITALS: BP 90/56; TEMP 97.5; O2SAT 97
[2024-01-01] MEDS: FILGRASTIM 300MCG 0.5ML SYRINGE **SC ADMINISTRATION ONLY SC ONE (21:42)
[2024-01-01] MEDS: CALCIUM CARBONATE 500 MG CHEW U/D PO SCH (21:42)
[2024-01-01] MEDS: ATORVASTATIN 10 MG TAB PO SCH (21:42)
[2024-01-01] MEDS: DOCUSATE SODIUM 100MG CAPSULE PO SCH (21:43)
[2024-01-01] MEDS: DULoxetine 30MG CAPSULE (CYMBALTA) PO SCH (21:43)
[2024-01-01] MEDS ORDERED: DIGOXIN 0.125 MG TAB PO ONE (22:00)
[2024-01-02] VITALS (9 sets, daily range): BP systolic 83–126; BP diastolic 50–70; TEMP 97–101; O2SAT 90–98
[2024-01-02 06:08] LABS: BASO % 1.9 % (0.0-1.0); EOS % 1.9 % (0.0-3.0); HEMATOCRIT 28.9 % (36.0-47.0); LYMPH # 0.6 10^3/uL (1.5-5.0); LYMPH % 58.1 % (24.0-44.0); MEAN CORPUSCULAR HEMOGLOBIN 22.8 pg (27.0-33.0); MEAN CORPUSCULAR HGB CONC 29.4 g/dl (32.0-36.5); MEAN CORPUSCULAR VOLUME 77.7 fl (80.0-96.0); MONO # 0.1 10^3/uL (0.0-0.8); MONO % 12.4 % (2.0-8.0); NEUTROPHILS % 15.2 % (36.0-66.0); PLATELET COUNT, AUTOMATED 102 10^3/uL (150-450); RED BLOOD COUNT 3.72 10^6/uL (4.00-5.40); WHITE BLOOD COUNT 1.1 10^3/uL (4.0-10.0)
[2024-01-02 06:19] LABS: HEMOGLOBIN 8.5 g/dl (12.0-15.5); NEUTROPHILS # 0.2 10^3/uL (1.5-8.5)
[2024-01-02 06:38] LABS: BLOOD UREA NITROGEN 9 MG/DL (9-23); CALCIUM LEVEL 7.9 MG/DL (8.3-10.6); CARBON DIOXIDE LEVEL 34 MMOL/L (20-31); CHLORIDE LEVEL 103 MMOL/L (98-107); CREATININE FOR GFR 0.51 MG/DL (0.55-1.30); GLOMERULAR FILTRATION RATE > 60.0 (>45); GLUCOSE, FASTING 106 MG/DL (74-106); MAGNESIUM LEVEL 1.9 MG/DL (1.8-2.4); POTASSIUM SERUM 3.2 MMOL/L (3.5-5.1); SODIUM LEVEL 139 MMOL/L (136-145)
[2024-01-02] MEDS: POTASSIUM CHLORIDE 10MEQ SR TABLET PO SCH (08:03)
[2024-01-02] MEDS: VITAMIN D 1,000 INTERNATIONAL UNITS TABLET PO SCH (09:15)
[2024-01-02] MEDS: ACETAMINOPHEN 325 MG TAB PO PRN (09:16)
[2024-01-02] MEDS: METOPROLOL TART 25 MG TABLET PO SCH (09:17)
[2024-01-02] MEDS: ENOXAPARIN 80MG/0.8ML SYRINGE (J1650 PER 10MG) SC SCH (09:20)
[2024-01-02] MEDS ORDERED: ISOVUE-370 76% 100ML VIAL As Ordered ONE (11:15)
[2024-01-02] MEDS: ACETAMINOPHEN *IV* 1,000 MG in IV 1 EA IV ONE (12:17)
[2024-01-02] MEDS: CEFEPIME HCL 2 GM in DEXTROSE 5% (D5W) ADV/MINI-BAG 50 ML IV SCH (12:17)
[2024-01-02 16:03] LABS: ALBUMIN 2.5 G/DL (3.2-5.2); ALKALINE PHOSPHATASE 60 U/L (46-116); ALT/SGPT 12 U/L (7.0-40); AST/SGOT < 8 U/L (<34); BILIRUBIN,DIRECT 0.4 MG/DL (<0.4); BILIRUBIN,TOTAL 1.2 MG/DL (0.3-1.2); TOTAL PROTEIN 4.4 G/DL (5.7-8.2)
[2024-01-02] MEDS: FLUBLOK(EGGFREE) TRIVAL(24-25) VACCINE PF 0.5ML SYRINGE 18YRS & OLDER IM.IMMUN ONE (17:49)
[2024-01-02 18:49] LABS: IMMUNOGLOBULIN A < 33.0 MG/DL (40-350); IMMUNOGLOBULIN G < 140 MG/DL (650-1600)
[2024-01-02] MEDS: diphenhydrAMINE 25MG CAP PO STA (23:00)
[2024-01-02] MEDS: RAMELTEON 8 MG TAB (ROZEREM) PO STA (23:00)
[2024-01-03] VITALS (10 sets, daily range): BP systolic 86–121; BP diastolic 48–70; TEMP 97.2–99.2; O2SAT 96–98
[2024-01-03 06:38] LABS: BASO % 2.3 % (0.0-1.0); EOS # 0.1 10^3/uL (0.0-0.5); EOS % 3.9 % (0.0-3.0); HEMATOCRIT 30.3 % (36.0-47.0); HEMOGLOBIN 8.8 g/dl (12.0-15.5); LYMPH # 0.6 10^3/uL (1.5-5.0); LYMPH % 49.6 % (24.0-44.0); MEAN CORPUSCULAR VOLUME 79.1 fl (80.0-96.0); MONO # 0.1 10^3/uL (0.0-0.8); MONO % 10.1 % (2.0-8.0); NEUTROPHILS % 27.1 % (36.0-66.0); RED BLOOD COUNT 3.83 10^6/uL (4.00-5.40); WHITE BLOOD COUNT 1.3 10^3/uL (4.0-10.0)
[2024-01-03 06:59] LABS: BLOOD UREA NITROGEN 8 MG/DL (9-23); CALCIUM LEVEL 7.9 MG/DL (8.3-10.6); CARBON DIOXIDE LEVEL 31 MMOL/L (20-31); CHLORIDE LEVEL 109 MMOL/L (98-107); CREATININE FOR GFR 0.48 MG/DL (0.55-1.30); GLOMERULAR FILTRATION RATE > 60.0 (>45); GLUCOSE, FASTING 87 MG/DL (74-106); MAGNESIUM LEVEL 1.7 MG/DL (1.8-2.4); POTASSIUM SERUM 3.7 MMOL/L (3.5-5.1); SODIUM LEVEL 141 MMOL/L (136-145)
[2024-01-03 08:34] LABS: NEUTROPHILS # 0.4 10^3/uL (1.5-8.5)
[2024-01-03 08:37] LABS: PLATELET COUNT, AUTOMATED 93 10^3/uL (150-450)
[2024-01-03] MEDS: MIDODRINE 5 MG TAB PO SCH (09:01)
[2024-01-03] MEDS: POTASSIUM CHLORIDE 10MEQ SR TABLET PO ONE (09:01)
[2024-01-03] MEDS: MAG SULF 1GM/100ML (MAG RUN) 1 GM in IV 1 EA IV SCH (09:02)
[2024-01-03] MEDS: FLUCONAZOLE 50MG TABLET PO SCH (09:03)
[2024-01-03] MEDS: FILGRASTIM 300MCG 0.5ML SYRINGE **SC ADMINISTRATION ONLY SC SCH (12:53)
[2024-01-03] MEDS: NS 1,000 ML IV ONE (12:54)
[2024-01-04] VITALS (7 sets, daily range): BP systolic 97–121; BP diastolic 56–71; TEMP 97–97.7; O2SAT 94–97
[2024-01-04 06:46] LABS: BLOOD UREA NITROGEN 8 MG/DL (9-23); CALCIUM LEVEL 7.3 MG/DL (8.3-10.6); CARBON DIOXIDE LEVEL 26 MMOL/L (20-31); CHLORIDE LEVEL 111 MMOL/L (98-107); GLOMERULAR FILTRATION RATE > 60.0 (>45); GLUCOSE, FASTING 82 MG/DL (74-106); MAGNESIUM LEVEL 1.6 MG/DL (1.8-2.4); POTASSIUM SERUM 4.7 MMOL/L (3.5-5.1); SODIUM LEVEL 140 MMOL/L (136-145)
[2024-01-04 07:32] LABS: HEMATOCRIT 30.8 % (36.0-47.0); MEAN CORPUSCULAR HEMOGLOBIN 23.3 pg (27.0-33.0); MEAN CORPUSCULAR HGB CONC 29.2 g/dl (32.0-36.5); MEAN CORPUSCULAR VOLUME 79.6 fl (80.0-96.0); RED BLOOD COUNT 3.87 10^6/uL (4.00-5.40); WHITE BLOOD COUNT 1.9 10^3/uL (4.0-10.0)
[2024-01-04 07:35] LABS: PLATELET COUNT, AUTOMATED 87 10^3/uL (150-450)
[2024-01-04] MEDS: MAG SULF 1GM/100ML (MAG RUN) 1 GM in IV 1 EA IV SCH (07:47)
[2024-01-04 08:36] LABS: ATYPICAL LYMPH 10 % (0-5); BASOPHILS 2 % (0-1); EOSINOPHILS 2 % (0-3); LYMPHOCYTES 64 % (16-44); METAMYELOCYTES 1 % (0-0); MONOCYTES 5 % (0-5); NEUTROPHILS 13 % (28-66); PLATELET ESTIMATE DECREASED (NORMAL)
[2024-01-04 08:39] LABS: ANISOCYTOSIS 2+; HYPOCHROMASIA 2+; MICROCYTOSIS 1+; POLYCHROMASIA 1+
[2024-01-04] MEDS: MECLIZINE 25 MG TABLET PO ONE (09:09)
[2024-01-04 10:22] LABS: BASO # 0.1 10^3/uL (0.0-0.2); BASO % 2.6 % (0.0-1.0); EOS # 0.1 10^3/uL (0.0-0.5); EOS % 3.6 % (0.0-3.0); LYMPH # 1.1 10^3/uL (1.5-5.0); LYMPH % 56.6 % (24.0-44.0); MONO # 0.2 10^3/uL (0.0-0.8); MONO % 12.2 % (2.0-8.0); NEUTROPHILS % 2.6 % (36.0-66.0)
[2024-01-04 10:23] LABS: NEUTROPHILS # 0.1 10^3/uL (1.5-8.5)
[2024-01-04 10:52] LABS: BASO % 1.1 % (0.0-1.0); EOS # 0.1 10^3/uL (0.0-0.5); EOS % 5.1 % (0.0-3.0); HEMATOCRIT 29.9 % (36.0-47.0); HEMOGLOBIN 8.7 g/dl (12.0-15.5); LYMPH # 0.9 10^3/uL (1.5-5.0); LYMPH % 50.3 % (24.0-44.0); MEAN CORPUSCULAR HEMOGLOBIN 23.5 pg (27.0-33.0); MEAN CORPUSCULAR HGB CONC 29.1 g/dl (32.0-36.5); MEAN CORPUSCULAR VOLUME 80.6 fl (80.0-96.0); MONO # 0.2 10^3/uL (0.0-0.8); MONO % 12.6 % (2.0-8.0); NEUTROPHILS % 14.9 % (36.0-66.0); RED BLOOD COUNT 3.71 10^6/uL (4.00-5.40); WHITE BLOOD COUNT 1.8 10^3/uL (4.0-10.0)
[2024-01-04 10:56] LABS: NEUTROPHILS # 0.3 10^3/uL (1.5-8.5); PLATELET COUNT, AUTOMATED 90 10^3/uL (150-450)
[2024-01-04] MEDS: SODIUM CHLORIDE HYPERTONIC 3% 4ML NEB SOL NEB ONE (19:52)
[2024-01-04] MEDS: ENOXAPARIN 80MG/0.8ML SYRINGE (J1650 PER 10MG) SC SCH (20:45)
[2024-01-05] VITALS (28 sets, daily range): BP systolic 82–137; BP diastolic 48–71; TEMP 95.6–101.3; O2SAT 18–100
[2024-01-05 06:24] LABS: BASO % 2.3 % (0.0-1.0); EOS # 0.1 10^3/uL (0.0-0.5); EOS % 2.9 % (0.0-3.0); HEMATOCRIT 31.2 % (36.0-47.0); HEMOGLOBIN 9.1 g/dl (12.0-15.5); LYMPH # 0.9 10^3/uL (1.5-5.0); LYMPH % 49.4 % (24.0-44.0); MEAN CORPUSCULAR HEMOGLOBIN 23.3 pg (27.0-33.0); MEAN CORPUSCULAR HGB CONC 29.2 g/dl (32.0-36.5); MONO # 0.2 10^3/uL (0.0-0.8); MONO % 13.8 % (2.0-8.0); NEUTROPHILS % 20.7 % (36.0-66.0); WHITE BLOOD COUNT 1.7 10^3/uL (4.0-10.0)
[2024-01-05 06:25] LABS: NEUTROPHILS # 0.4 10^3/uL (1.5-8.5); PLATELET COUNT, AUTOMATED 97 10^3/uL (150-450)
[2024-01-05 06:49] LABS: BLOOD UREA NITROGEN 9 MG/DL (9-23); CALCIUM LEVEL 7.5 MG/DL (8.3-10.6); CARBON DIOXIDE LEVEL 30 MMOL/L (20-31); CHLORIDE LEVEL 109 MMOL/L (98-107); CREATININE FOR GFR 0.52 MG/DL (0.55-1.30); GLOMERULAR FILTRATION RATE > 60.0 (>45); GLUCOSE, FASTING 100 MG/DL (74-106); MAGNESIUM LEVEL 1.7 MG/DL (1.8-2.4); POTASSIUM SERUM 4.1 MMOL/L (3.5-5.1); SODIUM LEVEL 142 MMOL/L (136-145)
[2024-01-05] MEDS: BACTRIM 160MG/800MG DS TAB PO SCH (07:54)
[2024-01-05] MEDS ORDERED: IMMUNE GLOBULIN 10% 0 GM in IV 1 EA IV SCH (09:10)
[2024-01-05] MEDS ORDERED: propofoL 200 MG/20 ML VIAL As Ordered ONE (09:24)
[2024-01-05] MEDS ORDERED: ONDANSETRON 4MG 2ML VIAL As Ordered ONE (09:24)
[2024-01-05] MEDS ORDERED: LIDOCAINE 2% 100MG/5ML SDV (FOR ANES.) As Ordered ONE (09:24)
[2024-01-05] MEDS ORDERED: ROCURONIUM BROMIDE 50MG/5ML VIAL As Ordered ONE (09:24)
[2024-01-05] MEDS ORDERED: fentaNYL 100 MCG/2 ML INJECTION As Ordered ONE (09:25)
[2024-01-05] MEDS ORDERED: MIDAZOLAM INJ 2MG/2ML VIAL As Ordered ONE (09:25)
[2024-01-05] MEDS: NS 500 ML IV ONE ×2 (09:30→11:52)
[2024-01-05] MEDS: THROMBIN 5,000 UNITS VIAL As Ordered ONE (09:35)
[2024-01-05] MEDS: HYDROMORPHONE HCL 0.5 MG/ 0.5 ML SYRINGE IV ONE ×2 (09:35→11:52)
[2024-01-05] MEDS: EPINEPHrine 1MG/10ML SYRINGE 1.5IN As Ordered ONE (09:36)
[2024-01-05] MEDS: CETACAINE SPRAY 5GM As Ordered ONE (10:10)
[2024-01-05 10:17] LABS: PROCALCITONIN 0.09 ng/ml
[2024-01-05] MEDS ORDERED: SUGAMMADEX SODIUM 500 MG/5 ML VIAL (BRIDION) As Ordered ONE (10:22)
[2024-01-05] MEDS ORDERED: fentaNYL 100 MCG/2 ML INJECTION IV PRN (10:40)
[2024-01-05] MEDS ORDERED: oxyCODONE 5MG TAB PO PRN (10:40)
[2024-01-05] MEDS: LR 1,000 ML IV SCH (10:40)
[2024-01-05] MEDS ORDERED: ONDANSETRON 4MG 2ML VIAL IV PRN (10:40)
[2024-01-05] MEDS ORDERED: HYDROMORPHONE HCL 0.5 MG/ 0.5 ML SYRINGE IV PRN (10:40)
[2024-01-05] MEDS ORDERED: PHENYLephrine 500MCG 5ML (100MCG/ML) SYRINGE As Ordered ONE (10:55)
[2024-01-05] MEDS ORDERED: ePHEDrine SULFATE 25 MG/5 ML(5MG/ML) SYRINGE As Ordered ONE (10:56)
[2024-01-05] MEDS ORDERED: MOM 30ML SUSPENSION UDC PO PRN (11:45)
[2024-01-05] MEDS ORDERED: SENOKOT S TAB PO PRN (11:45)
[2024-01-05] MEDS ORDERED: MORPHINE 30 MG TAB **MSIR PO PRN (11:45)
[2024-01-05] MEDS ORDERED: NALOXONE INJ 0.4MG/1ML VIAL IV PRN (11:45)
[2024-01-05] MEDS: AZITHROMYCIN 250MG TABLET PO SCH (11:52)
[2024-01-05 11:57] LABS: QuantiFERON-TB Gold Plus NEGATIVE (NEGATIVE)
[2024-01-05] MEDS: LIDOCAINE 5% (LIDODERM) PATCH TD SCH (12:09)
[2024-01-05] MEDS: MECLIZINE 25 MG TABLET PO PRN (13:25)
[2024-01-05] MEDS: MAG SULF 1GM/100ML (MAG RUN) 1 GM in IV 1 EA IV ONE (14:12)
[2024-01-05] MEDS: IMMUNE GLOBULIN 10% 20 GM in IV 1 EA IV SCH (15:51)
[2024-01-05] MEDS: MOM 30ML SUSPENSION UDC PO PRN (16:26)
[2024-01-05] MEDS: MORPHINE 30 MG SA TAB PO SCH (16:50)
[2024-01-05 17:48] LABS: CMV QUANT DNA PCR (PLASMA) Not Detected; CMV SOURCE Whole Blood; log10 CMV QN DNA P1 Not Detected log IU/mL
[2024-01-05] MEDS: diphenhydrAMINE 25MG CAP PO PRN (17:52)
[2024-01-05] MEDS: ACETAMINOPHEN 325 MG TAB PO PRN (17:52)
[2024-01-05 18:03] LABS: EBV PCR QUANTITATIVE Not Detected copies/mL; EBV SOURCE Whole Blood; log10 EBV DNA QN PCR Not Detected Log cps/mL
[2024-01-05] MEDS: DULoxetine 30MG CAPSULE (CYMBALTA) PO SCH (20:40)
[2024-01-06] VITALS (18 sets, daily range): BP systolic 93–135; BP diastolic 52–71; TEMP 96.7–98.5; O2SAT 91–100
[2024-01-06] MEDS: IMMUNE GLOBULIN 10% 10 GM in IV 1 EA IV SCH (00:06)
[2024-01-06 04:15] LABS: BASO % 1.3 % (0.0-1.0); HEMATOCRIT 29.2 % (36.0-47.0); HEMOGLOBIN 8.5 g/dl (12.0-15.5); LYMPH # 0.6 10^3/uL (1.5-5.0); LYMPH % 40.3 % (24.0-44.0); MEAN CORPUSCULAR HEMOGLOBIN 23.4 pg (27.0-33.0); MEAN CORPUSCULAR HGB CONC 29.1 g/dl (32.0-36.5); MEAN CORPUSCULAR VOLUME 80.4 fl (80.0-96.0); MONO # 0.2 10^3/uL (0.0-0.8); MONO % 15.1 % (2.0-8.0); NEUTROPHILS % 30.7 % (36.0-66.0); RED BLOOD COUNT 3.63 10^6/uL (4.00-5.40); WHITE BLOOD COUNT 1.6 10^3/uL (4.0-10.0)
[2024-01-06 04:17] LABS: NEUTROPHILS # 0.5 10^3/uL (1.5-8.5); PLATELET COUNT, AUTOMATED 91 10^3/uL (150-450)
[2024-01-06 04:58] LABS: BLOOD UREA NITROGEN 13 MG/DL (9-23); CALCIUM LEVEL 7.3 MG/DL (8.3-10.6); CARBON DIOXIDE LEVEL 29 MMOL/L (20-31); CHLORIDE LEVEL 111 MMOL/L (98-107); CREATININE FOR GFR 0.41 MG/DL (0.55-1.30); GLOMERULAR FILTRATION RATE > 60.0 (>45); GLUCOSE, FASTING 164 MG/DL (74-106); POTASSIUM SERUM 4.5 MMOL/L (3.5-5.1); SODIUM LEVEL 144 MMOL/L (136-145)
[2024-01-06] MEDS: MORPHINE 10MG/0.5ML ORAL CONCENTRATE SOLUTION U/D SL PRN (12:11)
[2024-01-06] MEDS ORDERED: NALOXONE INJ 0.4MG/1ML VIAL IV PRN (13:25)
[2024-01-06] MEDS: HYDROMORPHONE HCL 0.5 MG/ 0.5 ML SYRINGE IV ONE (13:47)
[2024-01-06 17:33] LABS: CRYTPOCOCCUS SOURCE Serum
[2024-01-06] MEDS: METOCLOPRAMIDE INJ 10MG/2ML VIAL IV ONE (22:21)
[2024-01-07] VITALS (14 sets, daily range): BP systolic 101–125; BP diastolic 56–65; TEMP 97.2–99.4; O2SAT 87–99
[2024-01-07 04:44] LABS: BASO # 0.1 10^3/uL (0.0-0.2); BASO % 1.4 % (0.0-1.0); EOS # 0.1 10^3/uL (0.0-0.5); EOS % 2.3 % (0.0-3.0); HEMATOCRIT 29.7 % (36.0-47.0); HEMOGLOBIN 8.5 g/dl (12.0-15.5); LYMPH # 1.5 10^3/uL (1.5-5.0); LYMPH % 42.8 % (24.0-44.0); MEAN CORPUSCULAR HEMOGLOBIN 23.5 pg (27.0-33.0); MEAN CORPUSCULAR HGB CONC 28.6 g/dl (32.0-36.5); MONO # 0.6 10^3/uL (0.0-0.8); MONO % 15.9 % (2.0-8.0); NEUTROPHILS % 11.3 % (36.0-66.0); PLATELET COUNT, AUTOMATED 111 10^3/uL (150-450); RED BLOOD COUNT 3.62 10^6/uL (4.00-5.40); WHITE BLOOD COUNT 3.5 10^3/uL (4.0-10.0)
[2024-01-07 05:08] LABS: BLOOD UREA NITROGEN 17 MG/DL (9-23); CALCIUM LEVEL 7.6 MG/DL (8.3-10.6); CARBON DIOXIDE LEVEL 31 MMOL/L (20-31); CHLORIDE LEVEL 114 MMOL/L (98-107); CREATININE FOR GFR 0.57 MG/DL (0.55-1.30); GLOMERULAR FILTRATION RATE > 60.0 (>45); GLUCOSE, FASTING 117 MG/DL (74-106); MAGNESIUM LEVEL 1.8 MG/DL (1.8-2.4); POTASSIUM SERUM 4.7 MMOL/L (3.5-5.1); SODIUM LEVEL 145 MMOL/L (136-145)
[2024-01-07 07:27] LABS: NEUTROPHILS # 0.4 10^3/uL (1.5-8.5)
[2024-01-07] MEDS ORDERED: ALBUTEROL SULFATE 2.5MG/0.5ML INH NEB SOLN INH PRN (09:50)
[2024-01-07] MEDS: ALBUTEROL SULFATE 2.5MG/0.5ML INH NEB SOLN INH SCH (11:27)
[2024-01-07 14:34] LABS: HEMATOCRIT 31.7 % (36.0-47.0); MEAN CORPUSCULAR HEMOGLOBIN 23.3 pg (27.0-33.0); MEAN CORPUSCULAR HGB CONC 28.4 g/dl (32.0-36.5); MEAN CORPUSCULAR VOLUME 81.9 fl (80.0-96.0); PLATELET COUNT, AUTOMATED 112 10^3/uL (150-450); RED BLOOD COUNT 3.87 10^6/uL (4.00-5.40); WHITE BLOOD COUNT 3.3 10^3/uL (4.0-10.0)
[2024-01-07 15:06] LABS: ALBUMIN 2.4 G/DL (3.2-5.2); ALKALINE PHOSPHATASE 322 U/L (35-104); ALT/SGPT 91 U/L (7.0-40); AST/SGOT 93 U/L (<34); BILIRUBIN,TOTAL 0.3 MG/DL (0.3-1.2); BLOOD UREA NITROGEN 20 MG/DL (9-23); CALCIUM LEVEL 7.8 MG/DL (8.3-10.6); CARBON DIOXIDE LEVEL 28 MMOL/L (20-31); CHLORIDE LEVEL 113 MMOL/L (98-107); CREATININE FOR GFR 0.49 MG/DL (0.55-1.30); GLOMERULAR FILTRATION RATE > 60.0 (>45); GLUCOSE, FASTING 110 MG/DL (74-106); POTASSIUM SERUM 4.9 MMOL/L (3.5-5.1); SODIUM LEVEL 142 MMOL/L (136-145); TOTAL PROTEIN 5.7 G/DL (5.7-8.2)
[2024-01-07 16:57] LABS: FUNGITELL INTERPRETATION NEGATIVE (NEGATIVE); FUNGITELL, SERUM < 31 pg/mL (<60)
[2024-01-07] MEDS: FUROSEMIDE 100MG/10ML VIAL IV ONE (18:45)
[2024-01-08 04:00] VITALS: BP 117/69; TEMP 98; O2SAT 93
[2024-01-08 04:51] LABS: BASO # 0.1 10^3/uL (0.0-0.2); BASO % 1.8 % (0.0-1.0); EOS # 0.1 10^3/uL (0.0-0.5); HEMATOCRIT 29.7 % (36.0-47.0); HEMOGLOBIN 8.5 g/dl (12.0-15.5); LYMPH # 1.7 10^3/uL (1.5-5.0); LYMPH % 36.4 % (24.0-44.0); MEAN CORPUSCULAR HEMOGLOBIN 23.3 pg (27.0-33.0); MEAN CORPUSCULAR HGB CONC 28.6 g/dl (32.0-36.5); MEAN CORPUSCULAR VOLUME 81.4 fl (80.0-96.0); MONO # 0.5 10^3/uL (0.0-0.8); MONO % 11.4 % (2.0-8.0); NEUTROPHILS # 1.2 10^3/uL (1.5-8.5); NEUTROPHILS % 26.9 % (36.0-66.0); PLATELET COUNT, AUTOMATED 113 10^3/uL (150-450); RED BLOOD COUNT 3.65 10^6/uL (4.00-5.40); WHITE BLOOD COUNT 4.6 10^3/uL (4.0-10.0)
[2024-01-08 05:12] LABS: ALBUMIN 2.3 G/DL (3.2-5.2); ALKALINE PHOSPHATASE 291 U/L (35-104); ALT/SGPT 73 U/L (7.0-40); AST/SGOT 32 U/L (<34); BILIRUBIN,TOTAL 0.3 MG/DL (0.3-1.2); BLOOD UREA NITROGEN 17 MG/DL (9-23); CALCIUM LEVEL 7.8 MG/DL (8.3-10.6); CARBON DIOXIDE LEVEL 33 MMOL/L (20-31); CHLORIDE LEVEL 108 MMOL/L (98-107); CREATININE FOR GFR 0.53 MG/DL (0.55-1.30); GLOMERULAR FILTRATION RATE > 60.0 (>45); GLUCOSE, FASTING 96 MG/DL (74-106); PHOSPHORUS LEVEL 1.2 MG/DL (2.4-5.1); POTASSIUM SERUM 4.8 MMOL/L (3.5-5.1); SODIUM LEVEL 142 MMOL/L (136-145); TOTAL PROTEIN 5.7 G/DL (5.7-8.2)
[2024-01-08 08:00] VITALS: BP 127/64; TEMP 98.9; O2SAT 95
[2024-01-08] MEDS: POTASSIUM PHOSPHATE INJ 15 MMOL in D5W 250 ML IV ONE (09:10)
[2024-01-08] MEDS: guaiFENesin ER TABLET 600 MG TAB PO SCH (10:49)
[2024-01-08 11:50] VITALS: BP 111/62
[2024-01-08] MEDS: MAG SULF 1GM/100ML (MAG RUN) 1 GM in IV 1 EA IV ONE (12:58)
[2024-01-08 13:00] VITALS: BP 118/63
[2024-01-08] MEDS: FUROSEMIDE 20MG/2ML VIAL IV ONE (16:33)
[2024-01-08] MEDS: SODIUM PHOSPHATE INJ 30 MMOL in D5W 500 ML IV ONE (18:46)
[2024-01-08 19:56] VITALS: BP 115/59; TEMP 98.1; O2SAT 89
[2024-01-08 20:43] LABS: CRYPTOCOCCUS ANTIBODY SERUM <1:2 (<1:2)
[2024-01-09] VITALS (11 sets, daily range): BP systolic 117–141; BP diastolic 62–98; TEMP 96.9–98.3; O2SAT 91–95
[2024-01-09] MEDS: MORPHINE 10MG/0.5ML ORAL CONCENTRATE SOLUTION U/D SL PRN (04:33)
[2024-01-09 05:34] LABS: BASO # 0.1 10^3/uL (0.0-0.2); BASO % 1.5 % (0.0-1.0); EOS # 0.1 10^3/uL (0.0-0.5); EOS % 1.6 % (0.0-3.0); HEMATOCRIT 29.2 % (36.0-47.0); HEMOGLOBIN 8.7 g/dl (12.0-15.5); LYMPH # 1.6 10^3/uL (1.5-5.0); LYMPH % 29.9 % (24.0-44.0); MEAN CORPUSCULAR HEMOGLOBIN 23.1 pg (27.0-33.0); MEAN CORPUSCULAR HGB CONC 29.8 g/dl (32.0-36.5); MEAN CORPUSCULAR VOLUME 77.7 fl (80.0-96.0); MONO # 0.6 10^3/uL (0.0-0.8); MONO % 10.6 % (2.0-8.0); NEUTROPHILS # 2.2 10^3/uL (1.5-8.5); PLATELET COUNT, AUTOMATED 105 10^3/uL (150-450); RED BLOOD COUNT 3.76 10^6/uL (4.00-5.40); WHITE BLOOD COUNT 5.5 10^3/uL (4.0-10.0)
[2024-01-09 05:43] LABS: ALBUMIN 2.2 G/DL (3.2-5.2); ALKALINE PHOSPHATASE 275 U/L (35-104); ALT/SGPT 50 U/L (7.0-40); AST/SGOT 21 U/L (<34); BILIRUBIN,TOTAL 0.4 MG/DL (0.3-1.2); BLOOD UREA NITROGEN 13 MG/DL (9-23); CALCIUM LEVEL 7.7 MG/DL (8.3-10.6); CARBON DIOXIDE LEVEL 33 MMOL/L (20-31); CHLORIDE LEVEL 102 MMOL/L (98-107); CREATININE FOR GFR 0.45 MG/DL (0.55-1.30); GLOMERULAR FILTRATION RATE > 60.0 (>45); GLUCOSE, FASTING 103 MG/DL (74-106); POTASSIUM SERUM 4.4 MMOL/L (3.5-5.1); SODIUM LEVEL 138 MMOL/L (136-145); TOTAL PROTEIN 5.3 G/DL (5.7-8.2)
[2024-01-09] MEDS: MULTIVITAMINS/MINERALS THERAP 1 TAB PO SCH (08:18)
[2024-01-09] MEDS: FUROSEMIDE 40MG/4ML VIAL IV ONE (14:31)
[2024-01-09 18:12] LABS: ASPERGILLUS FLAVUS ABY Negative (Negative); ASPERGILLUS FUMIGATUS ABY Negative (Negative); ASPERGILLUS NIGER ABY Negative (Negative)
[2024-01-09 18:59] LABS: BLOOD UREA NITROGEN 15 MG/DL (9-23); CALCIUM LEVEL 8.1 MG/DL (8.3-10.6); CARBON DIOXIDE LEVEL 32 MMOL/L (20-31); CHLORIDE LEVEL 102 MMOL/L (98-107); CREATININE FOR GFR 0.43 MG/DL (0.55-1.30); GLOMERULAR FILTRATION RATE > 60.0 (>45); GLUCOSE, FASTING 126 MG/DL (74-106); MAGNESIUM LEVEL 1.4 MG/DL (1.8-2.4); PHOSPHORUS LEVEL 3.2 MG/DL (2.4-5.1); POTASSIUM SERUM 4.3 MMOL/L (3.5-5.1); SODIUM LEVEL 136 MMOL/L (136-145)
[2024-01-09 19:24] LABS: ASPERGILLUS AG BAL INDEX 0.15 (<0.50); ASPERGILLUS AG BAL INDEX 0.16 (<0.50); ASPERGILLUS AG BAL INDEX 0.25 (<0.50); ASPERGILLUS GALACTOMANNAN AG Not Detected (Not Detected)
[2024-01-09 19:38] LABS: IMMUNOGLOBULIN G 1701 MG/DL (650-1600)
[2024-01-09 20:17] LABS: IMMUNOGLOBULIN A < 33.0 MG/DL (40-350)
[2024-01-10 03:46] VITALS: BP 118/58; TEMP 98.1; O2SAT 90
[2024-01-10 06:03] LABS: BASO # 0.1 10^3/uL (0.0-0.2); BASO % 1.6 % (0.0-1.0); EOS # 0.1 10^3/uL (0.0-0.5); EOS % 2.1 % (0.0-3.0); HEMATOCRIT 30.8 % (36.0-47.0); LYMPH # 1.2 10^3/uL (1.5-5.0); LYMPH % 30.3 % (24.0-44.0); MEAN CORPUSCULAR HEMOGLOBIN 23.2 pg (27.0-33.0); MEAN CORPUSCULAR HGB CONC 29.2 g/dl (32.0-36.5); MEAN CORPUSCULAR VOLUME 79.4 fl (80.0-96.0); MONO # 0.4 10^3/uL (0.0-0.8); MONO % 9.6 % (2.0-8.0); NEUTROPHILS # 1.7 10^3/uL (1.5-8.5); NEUTROPHILS % 42.9 % (36.0-66.0); RED BLOOD COUNT 3.88 10^6/uL (4.00-5.40); WHITE BLOOD COUNT 3.9 10^3/uL (4.0-10.0)
[2024-01-10 06:18] LABS: ALBUMIN 2.2 G/DL (3.2-5.2); ALKALINE PHOSPHATASE 229 U/L (35-104); ALT/SGPT 37 U/L (7.0-40); AST/SGOT 14 U/L (<34); BILIRUBIN,TOTAL 0.3 MG/DL (0.3-1.2); BLOOD UREA NITROGEN 13 MG/DL (9-23); CALCIUM LEVEL 8.6 MG/DL (8.3-10.6); CARBON DIOXIDE LEVEL 35 MMOL/L (20-31); CHLORIDE LEVEL 104 MMOL/L (98-107); CREATININE FOR GFR 0.48 MG/DL (0.55-1.30); GLOMERULAR FILTRATION RATE > 60.0 (>45); GLUCOSE, FASTING 121 MG/DL (74-106); POTASSIUM SERUM 4.4 MMOL/L (3.5-5.1); SODIUM LEVEL 140 MMOL/L (136-145); TOTAL PROTEIN 6.1 G/DL (5.7-8.2)
[2024-01-10 06:47] LABS: PLATELET COUNT, AUTOMATED 95 10^3/uL (150-450)
[2024-01-10] MEDS: ACETAMINOPHEN 325 MG TAB PO ONE (08:05)
[2024-01-10 12:04] VITALS: BP 109/67
[2024-01-10] MEDS: MAG SULF 1GM/100ML (MAG RUN) 1 GM in IV 1 EA IV ONE (15:00)
[2024-01-10] MEDS: FUROSEMIDE 40MG/4ML VIAL IV ONE (15:02)
[2024-01-10 16:09] VITALS: BP 116/68
[2024-01-10 19:51] VITALS: BP 114/69; TEMP 97; O2SAT 92
[2024-01-11 03:49] VITALS: BP 121/69; TEMP 94.9; O2SAT 89
[2024-01-11 03:52] VITALS: TEMP 97.7
[2024-01-11 06:32] LABS: BASO # 0.1 10^3/uL (0.0-0.2); BASO % 2.1 % (0.0-1.0); EOS # 0.1 10^3/uL (0.0-0.5); EOS % 1.8 % (0.0-3.0); HEMOGLOBIN 9.2 g/dl (12.0-15.5); LYMPH # 1.7 10^3/uL (1.5-5.0); LYMPH % 40.1 % (24.0-44.0); MEAN CORPUSCULAR HEMOGLOBIN 22.9 pg (27.0-33.0); MEAN CORPUSCULAR HGB CONC 28.8 g/dl (32.0-36.5); MEAN CORPUSCULAR VOLUME 79.8 fl (80.0-96.0); MONO # 0.5 10^3/uL (0.0-0.8); MONO % 10.8 % (2.0-8.0); NEUTROPHILS # 1.4 10^3/uL (1.5-8.5); NEUTROPHILS % 32.8 % (36.0-66.0); PLATELET COUNT, AUTOMATED 104 10^3/uL (150-450); RED BLOOD COUNT 4.01 10^6/uL (4.00-5.40); WHITE BLOOD COUNT 4.3 10^3/uL (4.0-10.0)
[2024-01-11 07:09] LABS: ALBUMIN 2.3 G/DL (3.2-5.2); ALKALINE PHOSPHATASE 216 U/L (35-104); ALT/SGPT 29 U/L (7.0-40); AST/SGOT 11 U/L (<34); BILIRUBIN,TOTAL 0.3 MG/DL (0.3-1.2); BLOOD UREA NITROGEN 16 MG/DL (9-23); CALCIUM LEVEL 9.6 MG/DL (8.3-10.6); CARBON DIOXIDE LEVEL 39 MMOL/L (20-31); CHLORIDE LEVEL 101 MMOL/L (98-107); CREATININE FOR GFR 0.61 MG/DL (0.55-1.30); GLOMERULAR FILTRATION RATE > 60.0 (>45); GLUCOSE, FASTING 92 MG/DL (74-106); POTASSIUM SERUM 5.4 MMOL/L (3.5-5.1); SODIUM LEVEL 140 MMOL/L (136-145); TOTAL PROTEIN 6.1 G/DL (5.7-8.2)
[2024-01-11 08:31] LABS: POTASSIUM SERUM 4.7 MMOL/L (3.5-5.1)
[2024-01-11 08:46] LABS: PROCALCITONIN 0.06 ng/ml
[2024-01-11 12:00] VITALS: BP 113/67; TEMP 97.2; O2SAT 96
[2024-01-11 20:30] VITALS: BP 115/66; TEMP 96.8; O2SAT 96
[2024-01-12 03:32] VITALS: BP 124/69; TEMP 97.5; O2SAT 100
[2024-01-12 05:46] LABS: BASO # 0.1 10^3/uL (0.0-0.2); BASO % 1.6 % (0.0-1.0); EOS # 0.1 10^3/uL (0.0-0.5); EOS % 2.2 % (0.0-3.0); HEMATOCRIT 32.7 % (36.0-47.0); HEMOGLOBIN 9.5 g/dl (12.0-15.5); LYMPH # 1.6 10^3/uL (1.5-5.0); LYMPH % 42.2 % (24.0-44.0); MEAN CORPUSCULAR HEMOGLOBIN 22.8 pg (27.0-33.0); MEAN CORPUSCULAR HGB CONC 29.1 g/dl (32.0-36.5); MEAN CORPUSCULAR VOLUME 78.6 fl (80.0-96.0); MONO # 0.4 10^3/uL (0.0-0.8); MONO % 10.8 % (2.0-8.0); NEUTROPHILS # 1.3 10^3/uL (1.5-8.5); NEUTROPHILS % 34.3 % (36.0-66.0); PLATELET COUNT, AUTOMATED 104 10^3/uL (150-450); RED BLOOD COUNT 4.16 10^6/uL (4.00-5.40); WHITE BLOOD COUNT 3.7 10^3/uL (4.0-10.0)
[2024-01-12 06:10] LABS: ALBUMIN 2.4 G/DL (3.2-5.2); ALKALINE PHOSPHATASE 175 U/L (35-104); ALT/SGPT 24 U/L (7.0-40); AST/SGOT 9 U/L (<34); BILIRUBIN,TOTAL 0.3 MG/DL (0.3-1.2); BLOOD UREA NITROGEN 15 MG/DL (9-23); CALCIUM LEVEL 10.2 MG/DL (8.3-10.6); CARBON DIOXIDE LEVEL 37 MMOL/L (20-31); CHLORIDE LEVEL 102 MMOL/L (98-107); CREATININE FOR GFR 0.55 MG/DL (0.55-1.30); GLOMERULAR FILTRATION RATE > 60.0 (>45); GLUCOSE, FASTING 91 MG/DL (74-106); POTASSIUM SERUM 4.9 MMOL/L (3.5-5.1); SODIUM LEVEL 140 MMOL/L (136-145); TOTAL PROTEIN 5.9 G/DL (5.7-8.2)
[2024-01-12] MEDS: FIORICET TAB PO ONE (07:58)
[2024-01-12 08:30] LABS: BF CYTOMEGALOVIRUS(CMV) BY PCR NEGATIVE (NEGATIVE)
[2024-01-12 08:34] LABS: BF CYTOMEGALOVIRUS(CMV) BY PCR NEGATIVE (NEGATIVE)
[2024-01-12] MEDS: rOPINIRole 0.25 MG TAB(REQUIP) PO ONE (10:36)
[2024-01-12 12:00] VITALS: BP 116/68; TEMP 97.2; O2SAT 96
[2024-01-12] MEDS ORDERED: flumazeniL 0.5MG/5ML VIAL IV PRN (16:10)
[2024-01-12] MEDS: LORazepam 2 MG/ML 1ML VIAL IV STA (17:38)
[2024-01-12] MEDS: FILGRASTIM 300MCG 0.5ML SYRINGE **SC ADMINISTRATION ONLY SC SCH (17:43)
[2024-01-12] MEDS ORDERED: PROHANCE 279.3MG/ML 15ML VIAL As Ordered ONE (18:48)
[2024-01-12] MEDS: TAMSULOSIN 0.4 MG CAP PO SCH (19:30)
[2024-01-12 19:49] VITALS: BP 109/66; TEMP 97.7; O2SAT 90
[2024-01-12] MEDS: SCOPOLAMINE 1MG TRANSDERMAL PATCH TOP SCH (20:41)
[2024-01-13 03:33] VITALS: BP 128/70; TEMP 97.9; O2SAT 95
[2024-01-13 06:21] LABS: BASO # 0.2 10^3/uL (0.0-0.2); BASO % 0.7 % (0.0-1.0); EOS # 0.1 10^3/uL (0.0-0.5); EOS % 0.4 % (0.0-3.0); HEMOGLOBIN 9.4 g/dl (12.0-15.5); LYMPH # 2.6 10^3/uL (1.5-5.0); LYMPH % 12.3 % (24.0-44.0); MEAN CORPUSCULAR HEMOGLOBIN 22.7 pg (27.0-33.0); MEAN CORPUSCULAR HGB CONC 28.5 g/dl (32.0-36.5); MEAN CORPUSCULAR VOLUME 79.5 fl (80.0-96.0); MONO # 0.9 10^3/uL (0.0-0.8); MONO % 4.2 % (2.0-8.0); NEUTROPHILS # 16.6 10^3/uL (1.5-8.5); NEUTROPHILS % 79.5 % (36.0-66.0); PLATELET COUNT, AUTOMATED 121 10^3/uL (150-450); RED BLOOD COUNT 4.15 10^6/uL (4.00-5.40); WHITE BLOOD COUNT 20.9 10^3/uL (4.0-10.0)
[2024-01-13 06:42] LABS: ALBUMIN 2.7 G/DL (3.2-5.2); ALKALINE PHOSPHATASE 178 U/L (35-104); ALT/SGPT 23 U/L (7.0-40); AST/SGOT 11 U/L (<34); BILIRUBIN,TOTAL 0.2 MG/DL (0.3-1.2); BLOOD UREA NITROGEN 15 MG/DL (9-23); CALCIUM LEVEL 10.6 MG/DL (8.3-10.6); CARBON DIOXIDE LEVEL 37 MMOL/L (20-31); CHLORIDE LEVEL 98 MMOL/L (98-107); CREATININE FOR GFR 0.68 MG/DL (0.55-1.30); GLOMERULAR FILTRATION RATE > 60.0 (>45); GLUCOSE, FASTING 90 MG/DL (74-106); SODIUM LEVEL 140 MMOL/L (136-145)
[2024-01-13] MEDS: TAMSULOSIN 0.4 MG CAP PO SCH (09:28)
[2024-01-13 12:00] VITALS: BP 124/70; TEMP 97.5; O2SAT 98
[2024-01-13 20:00] VITALS: BP 104/53; TEMP 97.5; O2SAT 98
[2024-01-14 03:47] VITALS: BP 105/53; TEMP 97.2; O2SAT 97
[2024-01-14 06:20] LABS: BASO # 0.1 10^3/uL (0.0-0.2); EOS # 0.1 10^3/uL (0.0-0.5); EOS % 0.5 % (0.0-3.0); HEMATOCRIT 31.2 % (36.0-47.0); LYMPH # 1.9 10^3/uL (1.5-5.0); LYMPH % 20.1 % (24.0-44.0); MEAN CORPUSCULAR HEMOGLOBIN 23.1 pg (27.0-33.0); MEAN CORPUSCULAR HGB CONC 28.8 g/dl (32.0-36.5); MEAN CORPUSCULAR VOLUME 80.2 fl (80.0-96.0); MONO # 0.3 10^3/uL (0.0-0.8); MONO % 3.4 % (2.0-8.0); NEUTROPHILS # 6.9 10^3/uL (1.5-8.5); NEUTROPHILS % 71.8 % (36.0-66.0); RED BLOOD COUNT 3.89 10^6/uL (4.00-5.40); WHITE BLOOD COUNT 9.7 10^3/uL (4.0-10.0)
[2024-01-14] MEDS: METOCLOPRAMIDE 10MG TAB PO ONE (06:45)
[2024-01-14 06:49] LABS: PLATELET COUNT, AUTOMATED 91 10^3/uL (150-450)
[2024-01-14 06:57] LABS: ALBUMIN 2.7 G/DL (3.2-5.2); ALKALINE PHOSPHATASE 170 U/L (35-104); ALT/SGPT 23 U/L (7.0-40); AST/SGOT 15 U/L (<34); BILIRUBIN,TOTAL 0.2 MG/DL (0.3-1.2); BLOOD UREA NITROGEN 13 MG/DL (9-23); CALCIUM LEVEL 10.3 MG/DL (8.3-10.6); CARBON DIOXIDE LEVEL 36 MMOL/L (20-31); CHLORIDE LEVEL 100 MMOL/L (98-107); CREATININE FOR GFR 0.62 MG/DL (0.55-1.30); GLOMERULAR FILTRATION RATE > 60.0 (>45); GLUCOSE, FASTING 92 MG/DL (74-106); POTASSIUM SERUM 4.6 MMOL/L (3.5-5.1); SODIUM LEVEL 141 MMOL/L (136-145); TOTAL PROTEIN 5.8 G/DL (5.7-8.2)
[2024-01-14] MEDS: HYDROMORPHONE HCL 0.5 MG/ 0.5 ML SYRINGE IV ONE (07:20)
[2024-01-14 07:39] LABS: CK-MB VALUE MASS 14.7 NG/ML (<3.6)
[2024-01-14 07:40] LABS: CPK CREATINE PHOSPHOKINASE 295 U/L (34-145); MB/CK RELATIVE INDEX 4.98 (< OR =4)
[2024-01-14] MEDS: ONDANSETRON 4MG 2ML VIAL IV ONE (08:37)
[2024-01-14] MEDS: MIDODRINE 5 MG TAB PO ONE (10:14)
[2024-01-14] MEDS: NS 1,000 ML IV SCH (10:14)
[2024-01-14] MEDS ORDERED: MAALOX 30 ML SUSP *UDC PO PRN (10:20)
[2024-01-14 12:00] VITALS: BP 110/64; TEMP 97.2; O2SAT 95
[2024-01-14] MEDS: MIDODRINE 5 MG TAB PO SCH (12:42)
[2024-01-14] MEDS: MAALOX 30 ML SUSP *UDC PO ONE (13:36)
[2024-01-14 14:06] LABS: CK-MB VALUE MASS 20.4 NG/ML (<3.6); MB/CK RELATIVE INDEX 4.92 (< OR =4)
[2024-01-14 19:32] LABS: T P ELECTROPHORESIS SO 6.1 g/dL (6.1-8.1)
[2024-01-14 19:40] VITALS: BP 105/59; TEMP 97.7; O2SAT 100
[2024-01-14 20:22] LABS: CK-MB VALUE MASS 14.4 NG/ML (<3.6)
[2024-01-14 20:24] LABS: MB/CK RELATIVE INDEX 4.98 (< OR =4)
[2024-01-15 03:43] VITALS: BP 131/67; TEMP 97; O2SAT 99
[2024-01-15 07:59] LABS: BASO # 0.1 10^3/uL (0.0-0.2); EOS % 0.8 % (0.0-3.0); HEMOGLOBIN 8.1 g/dl (12.0-15.5); LYMPH # 1.3 10^3/uL (1.5-5.0); LYMPH % 24.6 % (24.0-44.0); MEAN CORPUSCULAR HEMOGLOBIN 23.3 pg (27.0-33.0); MEAN CORPUSCULAR HGB CONC 28.9 g/dl (32.0-36.5); MEAN CORPUSCULAR VOLUME 80.5 fl (80.0-96.0); MONO # 0.3 10^3/uL (0.0-0.8); MONO % 6.2 % (2.0-8.0); NEUTROPHILS # 3.3 10^3/uL (1.5-8.5); NEUTROPHILS % 64.3 % (36.0-66.0); RED BLOOD COUNT 3.48 10^6/uL (4.00-5.40); WHITE BLOOD COUNT 5.1 10^3/uL (4.0-10.0)
[2024-01-15 08:04] LABS: PLATELET COUNT, AUTOMATED 71 10^3/uL (150-450)
[2024-01-15 12:00] VITALS: BP 121/65; TEMP 97.7; O2SAT 96
[2024-01-15 13:03] LABS: PROTEIN CREATININE RATIO 115 mg/g creat (24-184); T PROTEIN CREATININE RATIO 0.115 (0.024-0.184); UPEP CREATININE 87 mg/dL (20-275); UPEP TOTAL PROTEIN 10 mg/dL (5-24)
[2024-01-15 14:13] LABS: FREE KAPPA LIGHT CHAINS SERUM 2.3 mg/L (3.3-19.4); FREE LAMBDA LIGHT CHAINS SERUM < 1.5 mg/L (5.7-26.3); KAPPA/LAMBDA RATIO SERUM > 1.53 (0.26-1.65)
[2024-01-15 15:29] VITALS: BP 99/58
[2024-01-15 19:35] VITALS: BP 105/61; TEMP 97.3; O2SAT 95
[2024-01-16 03:53] VITALS: BP 112/64; TEMP 98.2; O2SAT 98
[2024-01-16 06:16] LABS: BASO # 0.1 10^3/uL (0.0-0.2); BASO % 1.2 % (0.0-1.0); EOS # 0.1 10^3/uL (0.0-0.5); EOS % 1.4 % (0.0-3.0); HEMATOCRIT 27.2 % (36.0-47.0); LYMPH # 1.2 10^3/uL (1.5-5.0); LYMPH % 29.5 % (24.0-44.0); MEAN CORPUSCULAR HEMOGLOBIN 23.4 pg (27.0-33.0); MEAN CORPUSCULAR HGB CONC 29.4 g/dl (32.0-36.5); MEAN CORPUSCULAR VOLUME 79.5 fl (80.0-96.0); MONO # 0.3 10^3/uL (0.0-0.8); MONO % 6.9 % (2.0-8.0); NEUTROPHILS # 2.4 10^3/uL (1.5-8.5); NEUTROPHILS % 56.2 % (36.0-66.0); RED BLOOD COUNT 3.42 10^6/uL (4.00-5.40); WHITE BLOOD COUNT 4.2 10^3/uL (4.0-10.0)
[2024-01-16 06:21] LABS: PLATELET COUNT, AUTOMATED 77 10^3/uL (150-450)
[2024-01-16 06:47] LABS: ALBUMIN SPEP 2.8 g/dL (3.8-4.8); ALPHA-1-GLOBULINS SO 0.5 g/dL (0.2-0.3); ALPHA-2-GLOBULINS SO 0.8 g/dL (0.5-0.9); BETA 2 GLOBULIN 0.3 g/dL (0.2-0.5); BETA-GLOBULIN SO 0.5 g/dL (0.4-0.6); GAMMA GLOBULINS SO 1.1 g/dL (0.8-1.7)
[2024-01-16 07:42] LABS: BF CYTOMEGALOVIRUS(CMV) BY PCR NEGATIVE (NEGATIVE)
[2024-01-16 08:18] LABS: UPEP ALBUMIN 40 %; URINE ALPHA 1 GLOBULIN 7 %; URINE ALPHA 2 GLOBULIN 16 %; URINE BETA GLOBULIN 18 %; URINE GAMMA GLOBULIN 20 %
[2024-01-16 11:56] VITALS: BP 96/54; TEMP 98.1; O2SAT 93
[2024-01-16 19:56] VITALS: BP 110/65; TEMP 97; O2SAT 96
[2024-01-16 23:19] VITALS: BP 110/65; TEMP 97; O2SAT 96
[2024-01-17 04:45] VITALS: BP 109/64; TEMP 96.8; O2SAT 98
[2024-01-17 06:16] LABS: BASO % 1.1 % (0.0-1.0); EOS # 0.1 10^3/uL (0.0-0.5); EOS % 1.7 % (0.0-3.0); HEMATOCRIT 27.6 % (36.0-47.0); LYMPH % 26.9 % (24.0-44.0); MEAN CORPUSCULAR HEMOGLOBIN 23.3 pg (27.0-33.0); MEAN CORPUSCULAR VOLUME 80.2 fl (80.0-96.0); MONO # 0.3 10^3/uL (0.0-0.8); MONO % 7.3 % (2.0-8.0); NEUTROPHILS # 2.2 10^3/uL (1.5-8.5); NEUTROPHILS % 61.3 % (36.0-66.0); RED BLOOD COUNT 3.44 10^6/uL (4.00-5.40); WHITE BLOOD COUNT 3.6 10^3/uL (4.0-10.0)
[2024-01-17 06:27] LABS: PLATELET COUNT, AUTOMATED 71 10^3/uL (150-450)
[2024-01-17] MEDS: MAALOX 30 ML SUSP *UDC PO PRN (08:59)
[2024-01-17 11:16] VITALS: BP 118/78; TEMP 97.5; O2SAT 95
[2024-01-17 14:19] VITALS: TEMP 97.5; O2SAT 96
[2024-01-17 15:28] VITALS: BP 108/64
[2024-01-17 19:41] VITALS: BP 107/60
[2024-01-17 20:03] VITALS: BP 108/59; TEMP 97.3; O2SAT 98
[2024-01-18 04:52] VITALS: BP 109/60; TEMP 97.3; O2SAT 97
[2024-01-18 06:06] LABS: BASO # 0.1 10^3/uL (0.0-0.2); BASO % 1.8 % (0.0-1.0); EOS # 0.1 10^3/uL (0.0-0.5); EOS % 1.8 % (0.0-3.0); HEMATOCRIT 27.5 % (36.0-47.0); LYMPH # 1.3 10^3/uL (1.5-5.0); LYMPH % 38.9 % (24.0-44.0); MEAN CORPUSCULAR HEMOGLOBIN 23.4 pg (27.0-33.0); MEAN CORPUSCULAR HGB CONC 29.1 g/dl (32.0-36.5); MEAN CORPUSCULAR VOLUME 80.4 fl (80.0-96.0); MONO # 0.2 10^3/uL (0.0-0.8); MONO % 7.1 % (2.0-8.0); NEUTROPHILS # 1.7 10^3/uL (1.5-8.5); NEUTROPHILS % 48.6 % (36.0-66.0); RED BLOOD COUNT 3.42 10^6/uL (4.00-5.40); WHITE BLOOD COUNT 3.4 10^3/uL (4.0-10.0)
[2024-01-18 06:07] LABS: PLATELET COUNT, AUTOMATED 81 10^3/uL (150-450)
[2024-01-18 06:33] LABS: BLOOD UREA NITROGEN 13 MG/DL (9-23); CALCIUM LEVEL 8.8 MG/DL (8.3-10.6); CARBON DIOXIDE LEVEL 35 MMOL/L (20-31); CHLORIDE LEVEL 104 MMOL/L (98-107); CREATININE FOR GFR 0.59 MG/DL (0.55-1.30); GLOMERULAR FILTRATION RATE > 60.0 (>45); GLUCOSE, FASTING 89 MG/DL (74-106); POTASSIUM SERUM 4.3 MMOL/L (3.5-5.1); SODIUM LEVEL 143 MMOL/L (136-145)
[2024-01-18 12:00] VITALS: BP 94/55; TEMP 97.3; O2SAT 97
[2024-01-18 13:27] LABS: FREE KAPPA LIGHT CHAINS URINE < 0.33 mg/L (<=32.90); FREE LAMBDA LIGHT CHAINS URINE < 0.74 mg/L (<=3.79)
[2024-01-18 20:30] VITALS: BP 99/61; TEMP 97; O2SAT 97
[2024-01-19 04:11] VITALS: BP 108/60; TEMP 96.8; O2SAT 99
[2024-01-19 08:00] VITALS: BP 116/78; TEMP 96.3; O2SAT 97
[2024-01-19 10:18] LABS: BASO # 0.1 10^3/uL (0.0-0.2); BASO % 2.2 % (0.0-1.0); EOS % 1.1 % (0.0-3.0); HEMATOCRIT 29.1 % (36.0-47.0); HEMOGLOBIN 8.3 g/dl (12.0-15.5); LYMPH # 1.1 10^3/uL (1.5-5.0); LYMPH % 29.6 % (24.0-44.0); MEAN CORPUSCULAR HEMOGLOBIN 23.3 pg (27.0-33.0); MEAN CORPUSCULAR HGB CONC 28.5 g/dl (32.0-36.5); MEAN CORPUSCULAR VOLUME 81.7 fl (80.0-96.0); MONO # 0.2 10^3/uL (0.0-0.8); MONO % 4.6 % (2.0-8.0); NEUTROPHILS # 2.3 10^3/uL (1.5-8.5); NEUTROPHILS % 61.7 % (36.0-66.0); RED BLOOD COUNT 3.56 10^6/uL (4.00-5.40); WHITE BLOOD COUNT 3.7 10^3/uL (4.0-10.0)
[2024-01-19 10:25] LABS: PLATELET COUNT, AUTOMATED 83 10^3/uL (150-450)
[2024-01-19 12:37] VITALS: BP 122/78; TEMP 97.5; O2SAT 97
[2024-01-19 19:49] VITALS: BP 118/65; TEMP 97.7; O2SAT 95
[2024-01-19] MEDS: APIXABAN 5 MG TAB (ELIQUIS) PO SCH (20:08)
[2024-01-20 04:00] VITALS: BP 113/52; TEMP 97.5; O2SAT 98
[2024-01-21 06:39] VITALS: BP 112/60; TEMP 97.3; O2SAT 97
[2024-01-21 06:45] VITALS: BP 110/60; TEMP 97; O2SAT 97
[2024-01-21 15:17] VITALS: BP 111/64
[2024-01-21] MEDS: FIORICET TAB PO ONE (21:19)
[2024-01-22 03:50] VITALS: BP 112/65; TEMP 97.3; O2SAT 97
[2024-01-22 06:05] LABS: BASO # 0.1 10^3/uL (0.0-0.2); BASO % 1.7 % (0.0-1.0); EOS # 0.1 10^3/uL (0.0-0.5); EOS % 2.3 % (0.0-3.0); HEMATOCRIT 27.1 % (36.0-47.0); HEMOGLOBIN 7.9 g/dl (12.0-15.5); LYMPH # 1.4 10^3/uL (1.5-5.0); LYMPH % 45.6 % (24.0-44.0); MEAN CORPUSCULAR HEMOGLOBIN 23.4 pg (27.0-33.0); MEAN CORPUSCULAR HGB CONC 29.2 g/dl (32.0-36.5); MEAN CORPUSCULAR VOLUME 80.4 fl (80.0-96.0); MONO # 0.2 10^3/uL (0.0-0.8); MONO % 6.4 % (2.0-8.0); NEUTROPHILS # 1.3 10^3/uL (1.5-8.5); NEUTROPHILS % 43.3 % (36.0-66.0); RED BLOOD COUNT 3.37 10^6/uL (4.00-5.40)
[2024-01-22 06:06] LABS: PLATELET COUNT, AUTOMATED 75 10^3/uL (150-450)
[2024-01-22 06:26] LABS: BLOOD UREA NITROGEN 12 MG/DL (9-23); CALCIUM LEVEL 8.2 MG/DL (8.3-10.6); CARBON DIOXIDE LEVEL 35 MMOL/L (20-31); CHLORIDE LEVEL 105 MMOL/L (98-107); CREATININE FOR GFR 0.52 MG/DL (0.55-1.30); GLOMERULAR FILTRATION RATE > 60.0 (>45); GLUCOSE, FASTING 93 MG/DL (74-106); POTASSIUM SERUM 4.4 MMOL/L (3.5-5.1); SODIUM LEVEL 142 MMOL/L (136-145)
[2024-01-22 09:19] VITALS: BP 113/65
[2024-01-22 09:20] VITALS: BP 113/65; TEMP 97.3; O2SAT 96
[2024-01-22 12:09] VITALS: BP 125/56
[2024-01-22] MEDS: FILGRASTIM 480 MCG/0.8 ML SYRINGE **SC ADMINISTRATION ONLY SC ONE (13:31)
[2024-01-22 15:21] VITALS: BP 116/61
[2024-01-23 03:55] VITALS: BP 110/61; TEMP 96.6; O2SAT 93
[2024-01-23 06:03] LABS: BASO # 0.1 10^3/uL (0.0-0.2); BASO % 0.6 % (0.0-1.0); EOS # 0.1 10^3/uL (0.0-0.5); EOS % 0.7 % (0.0-3.0); HEMATOCRIT 29.9 % (36.0-47.0); HEMOGLOBIN 8.6 g/dl (12.0-15.5); LYMPH # 2.4 10^3/uL (1.5-5.0); LYMPH % 12.2 % (24.0-44.0); MEAN CORPUSCULAR HEMOGLOBIN 23.4 pg (27.0-33.0); MEAN CORPUSCULAR HGB CONC 28.8 g/dl (32.0-36.5); MEAN CORPUSCULAR VOLUME 81.5 fl (80.0-96.0); MONO # 0.6 10^3/uL (0.0-0.8); MONO % 2.8 % (2.0-8.0); NEUTROPHILS # 16.1 10^3/uL (1.5-8.5); NEUTROPHILS % 83.1 % (36.0-66.0); RED BLOOD COUNT 3.67 10^6/uL (4.00-5.40); WHITE BLOOD COUNT 19.4 10^3/uL (4.0-10.0)
[2024-01-23 06:04] LABS: PLATELET COUNT, AUTOMATED 75 10^3/uL (150-450)
[2024-01-23 09:00] VITALS: BP 115/52
[2024-01-23] MEDS ORDERED: METO1TAB87 PO (12:58)
[2024-01-23] MEDS ORDERED: FLOM0.4C39 PO ×2 (12:58→13:00)
[2024-01-23] MEDS ORDERED: TRAN1DIS4 TOP (12:58)
[2024-01-23] MEDS ORDERED: CYMB1CAP5 PO (12:58)
[2024-01-23] MEDS ORDERED: MECL-86 PO (12:58)
[2024-01-23] MEDS ORDERED: LIDO5TD TD (12:58)
[2024-01-23] MEDS ORDERED: MIDO5TA PO (12:58)
[2024-01-23] MEDS ORDERED: MORP30TASA PO (13:06)
[2024-01-23] MEDS ORDERED: MORP10SO PO (13:09)
[2024-01-23] MEDS ORDERED: MORP10SO2 PO (13:12)
== END 2024-01-23 15:37 | disposition home health service (06) | DRG 808 ==
LOC: EDBD 05:13 → M ED 05:13 → M ED INP 13:26 → M PCU 17:29 → M MSPAV 01-04 18:44 → M ICU 01-05 19:40 → M MS5PR 01-09 17:18
PROVIDERS: ADMIT Student in an Organized Health Care Education/Training Program; ATTEND Internal Medicine Nephrology
PROC: 0B9D8ZX Drainage of Right Middle Lung Lobe, Via Natural or Artificial Opening Endoscopic, Diagnostic (ICD-10-PCS; 2024-01-05)
PROC: 0B9J8ZX Drainage of Left Lower Lung Lobe, Via Natural or Artificial Opening Endoscopic, Diagnostic (ICD-10-PCS; 2024-01-05)
PROC: 0B9C8ZX Drainage of Right Upper Lung Lobe, Via Natural or Artificial Opening Endoscopic, Diagnostic (ICD-10-PCS; principal; 2024-01-05 09:30)
DX: D70.9 Neutropenia, unspecified (principal); I50.33 Acute on chronic diastolic (congestive) heart failure; J18.9 Pneumonia, unspecified organism; C90.00 Multiple myeloma not having achieved remission; J96.11 Chronic respiratory failure with hypoxia; D80.1 Nonfamilial hypogammaglobulinemia; Z66 Do not resuscitate; I48.91 Unspecified atrial fibrillation; K21.9 Gastro-esophageal reflux disease without esophagitis; M10.9 Gout, unspecified; E78.5 Hyperlipidemia, unspecified; I11.0 Hypertensive heart disease with heart failure; M54.9 Dorsalgia, unspecified; G89.29 Other chronic pain; Z79.891 Long term (current) use of opiate analgesic; M06.9 Rheumatoid arthritis, unspecified; J44.9 Chronic obstructive pulmonary disease, unspecified; Z99.81 Dependence on supplemental oxygen; G47.33 Obstructive sleep apnea (adult) (pediatric); I25.10 Atherosclerotic heart disease of native coronary artery without angina pectoris; Z90.49 Acquired absence of other specified parts of digestive tract; Z90.79 Acquired absence of other genital organ(s); R29.810 Facial weakness; R33.9 Retention of urine, unspecified; E87.6 Hypokalemia; I25.2 Old myocardial infarction; Z79.82 Long term (current) use of aspirin; Z79.84 Long term (current) use of oral hypoglycemic drugs; Z79.899 Other long term (current) drug therapy; Z79.2 Long term (current) use of antibiotics; E11.42 Type 2 diabetes mellitus with diabetic polyneuropathy; F32.A Depression, unspecified; I89.0 Lymphedema, not elsewhere classified; D50.9 Iron deficiency anemia, unspecified; E83.42 Hypomagnesemia; E83.39 Other disorders of phosphorus metabolism; I95.89 Other hypotension; D61.810 Antineoplastic chemotherapy induced pancytopenia

== ENCOUNTER → 2024-02-23 | Outpatient (REF) | payer MEDICARE ==
[~2024-02-23] MED LIST changes: -FEXO-117 PO; +FEXO-193 PO; +LIDO5TD TD; +MIDO5TA PO; +MORP10SO PO; +MORP10SO2 PO; +TRAN1DIS4 TOP
[2024-02-23 18:47] LABS: CLOSTRIDIUM DIFFICILE PCR NEGATIVE (NEGATIVE)
== END ==
LOC: M LAB REF 15:07
PROVIDERS: ATTEND Colon & Rectal Surgery
DX: R62.7 Adult failure to thrive (principal)

== ENCOUNTER → 2024-06-20 | Outpatient (CLI) | payer MEDICAID, MEDICARE, OTHER | LOC: M PLAIMG 11:25 | PROVIDERS: ATTEND Student in an Organized Health Care Education/Training Program | DX: R09.89 Other specified symptoms and signs involving the circulatory and respiratory systems (principal) ==

== ENCOUNTER → 2024-06-20 | Outpatient (REF) | payer MEDICARE, OTHER | LOC: M SFHCPLAZ 12:34 | PROVIDERS: ATTEND Student in an Organized Health Care Education/Training Program | DX: J06.9 Acute upper respiratory infection, unspecified (principal) ==

== ENCOUNTER 2024-06-24 18:29 | Emergency (ER) | payer MEDICARE, MEDICAID ==
[~2024-06-24] VITALS: Ht 162.6 cm; Wt 86.0 kg
[2024-06-24 19:51] LABS: BASO % 0.3 % (0.0-1.0); EOS # 0.2 10^3/uL (0.0-0.5); EOS % 1.2 % (0.0-3.0); HEMATOCRIT 36.5 % (36.0-47.0); LYMPH # 0.6 10^3/uL (1.5-5.0); LYMPH % 3.9 % (24.0-44.0); MEAN CORPUSCULAR HGB CONC 30.1 g/dl (32.0-36.5); MEAN CORPUSCULAR VOLUME 79.5 fl (80.0-96.0); MONO # 0.8 10^3/uL (0.0-0.8); MONO % 5.3 % (2.0-8.0); NEUTROPHILS # 13.5 10^3/uL (1.5-8.5); NEUTROPHILS % 88.8 % (36.0-66.0); PLATELET COUNT, AUTOMATED 160 10^3/uL (150-450); RED BLOOD COUNT 4.59 10^6/uL (4.00-5.40); WHITE BLOOD COUNT 15.2 10^3/uL (4.0-10.0)
[2024-06-24 20:18] LABS: THYROID STIMULATING HORMONE 0.699 uIU/ML (0.55-4.78)
[2024-06-24 20:20] LABS: ALBUMIN 3.6 G/DL (3.2-5.2); ALKALINE PHOSPHATASE 104 U/L (35-104); ALT/SGPT 13 U/L (7.0-40); AST/SGOT < 8 U/L (<34); BILIRUBIN,DIRECT 0.2 MG/DL (<0.4); BILIRUBIN,TOTAL 0.7 MG/DL (0.3-1.2); BLOOD UREA NITROGEN 16 MG/DL (9-23); CALCIUM LEVEL 9.3 MG/DL (8.3-10.6); CARBON DIOXIDE LEVEL 33 MMOL/L (20-31); CHLORIDE LEVEL 99 MMOL/L (98-107); CREATININE FOR GFR 0.83 MG/DL (0.55-1.30); GLOMERULAR FILTRATION RATE 76.3 (>45); GLUCOSE, FASTING 143 MG/DL (74-106); POTASSIUM SERUM 2.8 MMOL/L (3.5-5.1); SODIUM LEVEL 145 MMOL/L (136-145); TOTAL PROTEIN 6.2 G/DL (5.7-8.2)
[2024-06-24] MEDS: POTASSIUM CHLORIDE 10MEQ SR TABLET PO ONE (20:50)
[2024-06-24] MEDS: KCL 10MEQ/100ML SWI (KRUN) 10 MEQ in IV 1 EA IV SCH (20:53)
[2024-06-24] MEDS ORDERED: POTA-151 PO (23:52)
[2024-06-25 00:37] LABS: MAGNESIUM LEVEL 1.4 MG/DL (1.8-2.4)
[2024-06-25] MEDS: MAGNESIUM OXIDE 400MG TAB (MAG-OX) PO ONE (01:21)
[2024-06-25] MEDS: NS (Normal Saline) 0.9% 1,000 ML IV ONE (01:21)
[2024-06-25] MEDS: MAG SULF 1GM/100ML (MAG RUN) 1 GM in IV 1 EA IV ONE (01:36)
[2024-06-25 03:30] VITALS: BP 123/73; O2SAT 94
[2024-06-25 03:38] VITALS: TEMP 97.1
== END 2024-06-25 03:38 | disposition home or self-care (01) ==
LOC: EDBD 18:29 → M ED 18:29
DX: R55 Syncope and collapse (principal); E83.42 Hypomagnesemia; J44.9 Chronic obstructive pulmonary disease, unspecified; I10 Essential (primary) hypertension; Z86.73 Personal history of transient ischemic attack (TIA), and cerebral infarction without residual deficits; Z88.0 Allergy status to penicillin; Z88.1 Allergy status to other antibiotic agents; Z88.6 Allergy status to analgesic agent; Z88.8 Allergy status to other drugs, medicaments and biological substances; Z79.1 Long term (current) use of non-steroidal anti-inflammatories (NSAID); Z79.2 Long term (current) use of antibiotics; Z79.899 Other long term (current) drug therapy
CPT/HCPCS: 70450; 72125; 80048; 80076; 83735; 84443; 85025; 93005; 96361; 96365; 96366; 99285; J3475

== ENCOUNTER → 2024-10-03 | Outpatient (CLI) | payer MEDICARE, MEDICAID ==
[~2024-10-03] MED LIST changes: +ACYC-438 PO; -ACYC1TAB PO; +AMIT10TA11 PO; -AMIT10TA7 PO; +DEPA250T PO; -DEPA250T2 PO; -FLOM0.4C39 PO; +HYDR-3364 PO; -HYDR-4570 PO; +LIDO1ADH93 TD; -LIDO5DIS41 TD; +MORP-137 PO; -MORP10SO PO; +MORP10SO21 PO; -MSIR30TA PO; +PREG-35 PO; -PREG100CA PO; -PREG50CA PO; +PREG50CA87 PO; +TAMS-18 PO
[2024-10-03 17:26] LABS: BASO # 0.1 10^3/uL (0.0-0.2); BASO % 0.9 % (0.0-1.0); EOS # 0.1 10^3/uL (0.0-0.5); EOS % 0.9 % (0.0-3.0); LYMPH # 1.3 10^3/uL (1.5-5.0); LYMPH % 19.7 % (24.0-44.0); MONO # 0.6 10^3/uL (0.0-0.8); MONO % 9.6 % (2.0-8.0); NEUTROPHILS # 4.4 10^3/uL (1.5-8.5); NEUTROPHILS % 68.4 % (36.0-66.0); PLATELET COUNT, AUTOMATED 127 10^3/uL (150-450)
[2024-10-03 17:53] LABS: CREATININE, URINE 52.9 MG/DL; MALB URINE SIEMENS 13.0 MG/L; MAU/CREAT RATIO 24.5 MCG/MG (0.0-30.0)
[2024-10-03 17:56] LABS: IRON (FE) 19 UG/DL (50-170); PERCENT SATURATION 4.8 % (13.2-45.0)
[2024-10-03 17:57] LABS: ALT/SGPT 12 U/L (7.0-40); AST/SGOT < 8 U/L (<34); CALCIUM LEVEL 9.5 MG/DL (8.3-10.6); CARBON DIOXIDE LEVEL 33 MMOL/L (20-31); CHLORIDE LEVEL 96 MMOL/L (98-107); CHOLESTEROL LEVEL 165 MG/DL (<200); CHOLESTEROL RISK RATIO 4.31 (<5); CREATININE FOR GFR 0.92 MG/DL (0.55-1.30); GLOMERULAR FILTRATION RATE 67.4 (>45); LDL CHOLESTEROL 59.6 MG/DL (<100); NON-HDL-C 126.8 MG/DL; POTASSIUM SERUM 3.2 MMOL/L (3.5-5.1); SODIUM LEVEL 144 MMOL/L (136-145); TRIGLYCERIDES LEVEL 336 MG/DL (<150)
[2024-10-03 17:58] LABS: FREE T4 1.32 NG/DL (0.89-1.76)
[2024-10-03 17:59] LABS: VITAMIN B12 LEVEL 765 PG/ML (211-911)
[2024-10-03 18:28] LABS: ESTIMATED AVERAGE GLUCOSE 108.0 MG/DL (60-110)
== END ==
LOC: M PLALAB 15:50
PROVIDERS: ATTEND Student in an Organized Health Care Education/Training Program
DX: Z00.00 Encounter for general adult medical examination without abnormal findings (principal); E11.9 Type 2 diabetes mellitus without complications

== ENCOUNTER → 2024-10-23 | Outpatient (CLI) | payer MEDICARE, MEDICAID ==
[2024-10-23 10:11] LABS: BASO # 0.1 10^3/uL (0.0-0.2); BASO % 0.6 % (0.0-1.0); EOS # 0.1 10^3/uL (0.0-0.5); EOS % 0.8 % (0.0-3.0); LYMPH # 0.9 10^3/uL (1.5-5.0); LYMPH % 7.4 % (24.0-44.0); MONO # 0.5 10^3/uL (0.0-0.8); MONO % 4.5 % (2.0-8.0); NEUTROPHILS # 9.9 10^3/uL (1.5-8.5); NEUTROPHILS % 85.7 % (36.0-66.0); PLATELET COUNT, AUTOMATED 133 10^3/uL (150-450)
[2024-10-23 10:18] LABS: INR 1.29
[2024-10-23 10:55] LABS: ALT/SGPT < 9 U/L (7.0-40); AST/SGOT < 8 U/L (<34); CALCIUM LEVEL 10.1 MG/DL (8.3-10.6); CARBON DIOXIDE LEVEL 34 MMOL/L (20-31); CHLORIDE LEVEL 98 MMOL/L (98-107); CREATININE FOR GFR 0.90 MG/DL (0.55-1.30); GLOMERULAR FILTRATION RATE 69.2 (>45); POTASSIUM SERUM 2.8 MMOL/L (3.5-5.1); SODIUM LEVEL 146 MMOL/L (136-145)
== END ==
LOC: M PLALAB 09:06
PROVIDERS: ATTEND Student in an Organized Health Care Education/Training Program
DX: Z01.812 Encounter for preprocedural laboratory examination (principal); Z79.01 Long term (current) use of anticoagulants

== ENCOUNTER → 2024-10-25 | Outpatient (CLI) | payer MEDICARE, MEDICAID ==
[2024-10-25 10:42] LABS: CALCIUM LEVEL 9.9 MG/DL (8.3-10.6); CARBON DIOXIDE LEVEL 34.0 MMOL/L (20-31); CHLORIDE LEVEL 99.0 MMOL/L (98-107); CREATININE FOR GFR 0.81 MG/DL (0.55-1.30); GLOMERULAR FILTRATION RATE 78.5 (>45); MAGNESIUM LEVEL 1.7 MG/DL (1.8-2.4); POTASSIUM SERUM 3.5 MMOL/L (3.5-5.1); SODIUM LEVEL 144.0 MMOL/L (136-145)
== END ==
LOC: M PLALAB 09:05
PROVIDERS: ATTEND Student in an Organized Health Care Education/Training Program
DX: E87.6 Hypokalemia (principal)

== ENCOUNTER → 2024-10-28 | Outpatient (CLI) | payer MEDICARE, MEDICAID ==
[2024-10-28 15:26] LABS: CALCIUM LEVEL 10.7 MG/DL (8.3-10.6); CARBON DIOXIDE LEVEL 32.0 MMOL/L (20-31); CHLORIDE LEVEL 102.0 MMOL/L (98-107); CREATININE FOR GFR 1.0 MG/DL (0.55-1.30); GLOMERULAR FILTRATION RATE 61.0 (>45); POTASSIUM SERUM 4.0 MMOL/L (3.5-5.1); SODIUM LEVEL 143.0 MMOL/L (136-145)
== END ==
LOC: M PLALAB 11:48
PROVIDERS: ATTEND Physician Assistant Medical
DX: E87.6 Hypokalemia (principal)

== ENCOUNTER → 2024-12-07 | Outpatient (CLI) | payer MEDICARE, MEDICAID ==
[~2024-12-07] MED LIST changes: -COLC0.6T47 PO; +COLC0.6T53 PO
[2024-12-07 10:41] LABS: BASO # 0.1 10^3/uL (0.0-0.2); BASO % 0.6 % (0.0-1.0); EOS # 0.2 10^3/uL (0.0-0.5); EOS % 1.6 % (0.0-3.0); LYMPH # 1.9 10^3/uL (1.5-5.0); LYMPH % 15.1 % (24.0-44.0); MONO # 0.5 10^3/uL (0.0-0.8); MONO % 3.7 % (2.0-8.0); NEUTROPHILS # 10.0 10^3/uL (1.5-8.5); NEUTROPHILS % 78.5 % (36.0-66.0); PLATELET COUNT, AUTOMATED 140 10^3/uL (150-450)
[2024-12-07 11:15] LABS: CALCIUM LEVEL 9.5 MG/DL (8.3-10.6); CARBON DIOXIDE LEVEL 34.0 MMOL/L (20-31); CHLORIDE LEVEL 96.0 MMOL/L (98-107); CREATININE FOR GFR 0.82 MG/DL (0.55-1.30); GLOMERULAR FILTRATION RATE 76.9 (>39); MAGNESIUM LEVEL 1.6 MG/DL (1.8-2.4); POTASSIUM SERUM 3.2 MMOL/L (3.5-5.1); SODIUM LEVEL 140.0 MMOL/L (136-145)
== END ==
LOC: M RAD 09:54
PROVIDERS: ATTEND Student in an Organized Health Care Education/Training Program
DX: J40 Bronchitis, not specified as acute or chronic (principal)

== ENCOUNTER → 2024-12-11 | Outpatient (CLI) | payer MEDICARE ==
[~2024-12-11] MED LIST changes: +ISOVUE-370 76% 100 ML VIAL As Ordered ONE
[2024-12-11 16:12] LABS: INR 1.07
[2024-12-11 16:19] LABS: APPEARANCE, URINE CLEAR (CLEAR); BACTERIA, URINE AUTO NEGATIVE (NEGATIVE); BILIRUBIN, URINE AUTO NEGATIVE (NEGATIVE); BLOOD, URINE BLOOD NEGATIVE (NEGATIVE); GLUCOSE, URINE (UA) AUTO 3+ mg/dL (NEGATIVE); KETONE, URINE AUTO NEGATIVE (NEGATIVE); LEUKOCYTE ESTERASE, URINE AUTO TRACE (NEGATIVE); MUCUS, URINE SMALL (NEGATIVE); NITRITE, URINE AUTO NEGATIVE (NEGATIVE); PROTEIN, URINE AUTO NEGATIVE (NEGATIVE); RBC, URINE AUTO 1 /HPF (0-3); SPECIFIC GRAVITY URINE AUTO 1.012 (1.002-1.035); SQUAMOUS EPITHELIAL CELL UR AU 0 /HPF (0-6); UROBILINOGEN, URINE AUTO 0.2 mg/dL (0.0-2.0); WBC, URINE AUTO 6 /HPF (0-3)
[2024-12-16 10:32] LABS: HISTOPLASMA AG SPECIMEN TYPE URINE
[2024-12-19 02:24] LABS: HISTO GAL'MANNAN AG UR QNT < 0.2 ng/mL (<0.2)
== END ==
LOC: M RAD 14:53
PROVIDERS: ATTEND Student in an Organized Health Care Education/Training Program
DX: J40 Bronchitis, not specified as acute or chronic (principal); R23.3 Spontaneous ecchymoses; K44.9 Diaphragmatic hernia without obstruction or gangrene; R91.8 Other nonspecific abnormal finding of lung field

== ENCOUNTER → 2024-12-11 | Outpatient (REF) | payer MEDICARE, OTHER ==
[~2024-12-11] MED LIST changes: -ISOVUE-370 76% 100 ML VIAL As Ordered ONE
== END ==
LOC: M SFHCPLAZ 13:46
PROVIDERS: ATTEND Student in an Organized Health Care Education/Training Program
DX: Z53.9 Procedure and treatment not carried out, unspecified reason (principal)

== ENCOUNTER → 2024-12-16 | Outpatient (CLI) | payer MEDICARE, OTHER ==
[2024-12-16 19:04] LABS: CALCIUM LEVEL 9.8 MG/DL (8.3-10.6); CARBON DIOXIDE LEVEL 33.0 MMOL/L (20-31); CHLORIDE LEVEL 102.0 MMOL/L (98-107); CREATININE FOR GFR 0.76 MG/DL (0.55-1.30); GLOMERULAR FILTRATION RATE 84.2 (>39); MAGNESIUM LEVEL 1.7 MG/DL (1.8-2.4); POTASSIUM SERUM 4.0 MMOL/L (3.5-5.1); SODIUM LEVEL 146.0 MMOL/L (136-145)
== END ==
LOC: M LAB 17:56
PROVIDERS: ATTEND Student in an Organized Health Care Education/Training Program
DX: E87.6 Hypokalemia (principal); E83.42 Hypomagnesemia

== ENCOUNTER 2024-12-30 22:33 | Observation (INO) | payer MEDICARE, MEDICAID ==
[~2024-12-30] VITALS: Ht 162.6 cm; Wt 81.8 kg
[~2024-12-30 22:33] MED LIST changes: -BACTDSTA PO; +SULF-8 PO
[2024-12-30 23:34] LABS: EOS # 0.1 10^3/uL (0.0-0.5); EOS % 1.0 % (0.0-3.0); LYMPH # 2.7 10^3/uL (1.5-5.0); MONO # 0.5 10^3/uL (0.0-0.8); NEUTROPHILS % 61.7 % (36.0-66.0)
[2024-12-30 23:36] LABS: BASO # 0.0 10^3/uL (0.0-0.2); BASO % 0.5 % (0.0-1.0); LYMPH % 30.9 % (24.0-44.0); MONO % 5.6 % (2.0-8.0); NEUTROPHILS # 5.3 10^3/uL (1.5-8.5); PLATELET COUNT, AUTOMATED 127 10^3/uL (150-450)
[2024-12-30 23:40] LABS: INR 1.16
[2024-12-31] MEDS: NS (Normal Saline) 0.9% 1,000 ML IV ONE ×3 (00:16→03:11)
[2024-12-31] MEDS: ONDANSETRON 4MG/2ML VIAL IV ONE (00:37)
[2024-12-31 00:41] LABS: CALCIUM LEVEL 10.9 MG/DL (8.3-10.6); CARBON DIOXIDE LEVEL 33.0 MMOL/L (20-31); CHLORIDE LEVEL 96.0 MMOL/L (98-107); CREATININE FOR GFR 0.96 MG/DL (0.55-1.30); GLOMERULAR FILTRATION RATE 63.7 (>39); POTASSIUM SERUM 3.5 MMOL/L (3.5-5.1); SODIUM LEVEL 143.0 MMOL/L (136-145)
[2024-12-31 00:42] LABS: CK-MB VALUE MASS 5.1 NG/ML (<3.6)
[2024-12-31 00:56] LABS: CPK CREATINE PHOSPHOKINASE 34.0 U/L (34-145); MB/CK RELATIVE INDEX 15.0 (< OR =4)
[2024-12-31] MEDS ORDERED: ISOVUE-370 76% 100 ML VIAL As Ordered ONE (01:07)
[2024-12-31 02:59] LABS: CK-MB VALUE MASS 4.8 NG/ML (<3.6)
[2024-12-31 03:02] LABS: CPK CREATINE PHOSPHOKINASE 32.0 U/L (34-145); MB/CK RELATIVE INDEX 15.0 (< OR =4)
[2024-12-31] MEDS: AMIODARONE HCL 150 MG in IV 1 EA IV SCH (03:11)
[2024-12-31] MEDS: ACETAMINOPHEN *IV* 1,000 MG in IV 1 EA IV ONE (03:37)
[2024-12-31] MEDS: NS (Normal Saline) 0.9% 1,000 ML IV SCH (04:14)
[2024-12-31] MEDS: LR 1,000 ML IV SCH (05:32)
[2024-12-31 07:38] LABS: BASO # 0.0 10^3/uL (0.0-0.2); BASO % 0.5 % (0.0-1.0); EOS # 0.1 10^3/uL (0.0-0.5); EOS % 1.1 % (0.0-3.0); LYMPH # 1.7 10^3/uL (1.5-5.0); LYMPH % 30.2 % (24.0-44.0); MONO # 0.3 10^3/uL (0.0-0.8); MONO % 5.0 % (2.0-8.0); NEUTROPHILS # 3.5 10^3/uL (1.5-8.5); NEUTROPHILS % 62.8 % (36.0-66.0)
[2024-12-31 08:07] LABS: ALT/SGPT 15.0 U/L (7.0-40); AST/SGOT 9.0 U/L (<34); CALCIUM LEVEL 8.8 MG/DL (8.3-10.6); CARBON DIOXIDE LEVEL 31.0 MMOL/L (20-31); CHLORIDE LEVEL 104.0 MMOL/L (98-107); CREATININE FOR GFR 0.83 MG/DL (0.55-1.30); GLOMERULAR FILTRATION RATE 75.8 (>39); MAGNESIUM LEVEL 1.4 MG/DL (1.8-2.4); POTASSIUM SERUM 3.3 MMOL/L (3.5-5.1); SODIUM LEVEL 144.0 MMOL/L (136-145)
[2024-12-31 08:19] LABS: PLATELET COUNT, AUTOMATED 85 10^3/uL (150-450)
[2024-12-31] MEDS: ACETAMINOPHEN 325 MG TAB PO PRN (08:38)
[2024-12-31] MEDS ORDERED: MAGN400T35 PO (08:51)
[2024-12-31] MEDS ORDERED: POTA-298 PO (08:51)
[2024-12-31] MEDS ORDERED: TORS10TA3 PO (08:51)
[2024-12-31] MEDS ORDERED: JARD1TAB PO (08:51)
[2024-12-31] MEDS ORDERED: ELIQ5TAB PO (08:54)
[2024-12-31] MEDS ORDERED: FAMO1TAB11 PO (08:54)
[2024-12-31] MEDS ORDERED: VENTAER INH (08:56)
[2024-12-31] MEDS ORDERED: ALBU2.5V10 INH (08:56)
[2024-12-31] MEDS ORDERED: FLUT1BLS4 INH (09:05)
[2024-12-31] MEDS ORDERED: HOME MED LIST COMPLETE! XX SCH (09:05)
[2024-12-31] MEDS ORDERED: ALBUTEROL 90 MCG/ACT 8 GM HFA INHALER INH PRN (09:35)
[2024-12-31] MEDS ORDERED: PROCHLORPERAZINE 5MG TAB PO PRN (09:35)
[2024-12-31] MEDS ORDERED: ALBUTEROL SULFATE 2.5 MG/0.5 ML INH CONCENTRATE NEB SOLN INH PRN (09:35)
[2024-12-31] MEDS: MAG SULF 1GM/100ML (MAG RUN) 1 GM in IV 1 EA IV SCH (10:25)
[2024-12-31] MEDS: ACYCLOVIR 200 MG CAPSULE PO SCH (11:50)
[2024-12-31] MEDS: POTASSIUM CHLORIDE 10MEQ SR TABLET PO ONE (11:50)
[2024-12-31] MEDS: PANTOPRAZOLE 40MG TAB PO SCH (11:51)
[2024-12-31] MEDS: FAMOTIDINE 20 MG TAB PO SCH (11:51)
[2024-12-31] MEDS: ONDANSETRON 4MG/2ML VIAL IV PRN (11:52)
[2024-12-31] MEDS: METOPROLOL TART 12.5 MG PER 1/2 TAB PO SCH (12:20)
[2024-12-31] MEDS: ADVAIR HFA 230/21 MCG INHALER INH SCH (12:45)
[2024-12-31] MEDS: MAGNESIUM GLUCONATE 500 MG TAB PO SCH (12:51)
[2024-12-31] MEDS: MIDODRINE 5 MG TAB PO ONE (12:51)
[2024-12-31 14:41] VITALS: BP 112/78; TEMP 97.6; O2SAT 96
[2024-12-31 17:39] VITALS: BP 106/63; TEMP 97.1; O2SAT 95
[2024-12-31] MEDS: MIDODRINE 5 MG TAB PO SCH (17:43)
[2024-12-31 20:27] VITALS: BP 89/54; TEMP 96.8; O2SAT 92
[2024-12-31 20:52] VITALS: BP 100/64
[2024-12-31] MEDS: ATORVASTATIN 10 MG TAB PO SCH (20:54)
[2024-12-31] MEDS: CALCIUM CARBONATE 500 MG CHEW U/D PO SCH (20:54)
[2024-12-31] MEDS: APIXABAN 5 MG TAB PO SCH (20:54)
[2025-01-01 04:12] VITALS: BP 120/81; TEMP 96.9; O2SAT 93
[2025-01-01 06:43] LABS: BASO # 0.1 10^3/uL (0.0-0.2); BASO % 1.3 % (0.0-1.0); EOS # 0.2 10^3/uL (0.0-0.5); EOS % 3.3 % (0.0-3.0); LYMPH # 1.2 10^3/uL (1.5-5.0); LYMPH % 24.6 % (24.0-44.0); MONO # 0.3 10^3/uL (0.0-0.8); MONO % 5.2 % (2.0-8.0); NEUTROPHILS # 3.1 10^3/uL (1.5-8.5); NEUTROPHILS % 65.4 % (36.0-66.0)
[2025-01-01 06:47] LABS: PLATELET COUNT, AUTOMATED 83 10^3/uL (150-450)
[2025-01-01 07:15] LABS: ALT/SGPT 14 U/L (7.0-40); AST/SGOT < 8 U/L (<34); CALCIUM LEVEL 8.6 MG/DL (8.3-10.6); CARBON DIOXIDE LEVEL 30 MMOL/L (20-31); CHLORIDE LEVEL 104 MMOL/L (98-107); CREATININE FOR GFR 0.60 MG/DL (0.55-1.30); GLOMERULAR FILTRATION RATE > 90.0 (>39); MAGNESIUM LEVEL 1.6 MG/DL (1.8-2.4); POTASSIUM SERUM 3.3 MMOL/L (3.5-5.1); SODIUM LEVEL 143 MMOL/L (136-145)
[2025-01-01] MEDS: MAG SULF 1GM/100ML (MAG RUN) 1 GM in IV 1 EA IV SCH (09:23)
[2025-01-01] MEDS: POTASSIUM CHLORIDE 10MEQ SR TABLET PO ONE (09:24)
[2025-01-01 12:00] VITALS: BP 104/64; TEMP 96.9; O2SAT 98
[2025-01-01 12:32] VITALS: BP 104/64
[2025-01-01] MEDS: FLUZONE HIGH DOSE (65+) 0.5 ML SYRINGE (25-26) IM.IMMUN ONE (14:23)
== END 2025-01-01 15:00 | disposition home or self-care (01) ==
LOC: M ED 22:33 → M ED INP 22:34 → M MS4PR 12-31 14:20 → M PM&R 12-31 15:44 → M MS4PR 12-31 15:47
PROVIDERS: ADMIT Student in an Organized Health Care Education/Training Program; ATTEND Student in an Organized Health Care Education/Training Program
DX: I48.20 Chronic atrial fibrillation, unspecified (principal); A08.11 Acute gastroenteropathy due to Norwalk agent; E86.0 Dehydration; R79.89 Other specified abnormal findings of blood chemistry; E83.42 Hypomagnesemia; E87.6 Hypokalemia; E87.20 Acidosis, unspecified; R55 Syncope and collapse; R33.9 Retention of urine, unspecified; E11.9 Type 2 diabetes mellitus without complications; I10 Essential (primary) hypertension; E78.5 Hyperlipidemia, unspecified; M19.90 Unspecified osteoarthritis, unspecified site; Z23 Encounter for immunization; Z93.3 Colostomy status; Z94.84 Stem cells transplant status; D84.9 Immunodeficiency, unspecified; I25.10 Atherosclerotic heart disease of native coronary artery without angina pectoris; I95.89 Other hypotension; M10.9 Gout, unspecified; H81.399 Other peripheral vertigo, unspecified ear; J96.11 Chronic respiratory failure with hypoxia; Z99.81 Dependence on supplemental oxygen; M79.7 Fibromyalgia; G62.9 Polyneuropathy, unspecified; Z88.0 Allergy status to penicillin; Z88.8 Allergy status to other drugs, medicaments and biological substances; Z88.1 Allergy status to other antibiotic agents; Z79.899 Other long term (current) drug therapy; Z79.01 Long term (current) use of anticoagulants; Z79.82 Long term (current) use of aspirin; Z66 Do not resuscitate; R19.7 Diarrhea, unspecified; Z90.49 Acquired absence of other specified parts of digestive tract
CPT/HCPCS: 36415; 71275; 74177; 80048; 80053; 82550; 82553; 83605; 83735; 84484; 85025; 85049; 85055; 85610; 86850; 86900; 86901; 87486; 87507; 87581; 87633; 87798; 90662; 93005; 94640; 94664; 96365; 96366; 96367; 96375; 96376; 97116; 97161; 97165; 97530; 99285; G0008; G0378; J0131; J0282; J2405; J3475; Q9967

== ENCOUNTER → 2025-01-10 | Outpatient (CLI) | payer MEDICARE, OTHER ==
[~2025-01-10] MED LIST changes: +ALBU2.5V10 INH; +BACTDSTA PO; +FAMO1TAB11 PO; +FLUT1BLS4 INH; +JARD1TAB PO; +POTA-298 PO; -SULF-8 PO; +TORS10TA3 PO; +VENTAER INH
[2025-01-10 14:38] LABS: BASO # 0.0 10^3/uL (0.0-0.2); BASO % 0.3 % (0.0-1.0); EOS # 0.0 10^3/uL (0.0-0.5); EOS % 0.4 % (0.0-3.0); LYMPH # 0.9 10^3/uL (1.5-5.0); LYMPH % 9.3 % (24.0-44.0); MONO # 0.3 10^3/uL (0.0-0.8); MONO % 3.0 % (2.0-8.0); NEUTROPHILS # 8.0 10^3/uL (1.5-8.5); NEUTROPHILS % 86.7 % (36.0-66.0); PLATELET COUNT, AUTOMATED 109 10^3/uL (150-450)
[2025-01-10 14:42] LABS: CALCIUM LEVEL 9.4 MG/DL (8.3-10.6); CARBON DIOXIDE LEVEL 30.0 MMOL/L (20-31); CHLORIDE LEVEL 106.0 MMOL/L (98-107); CREATININE FOR GFR 0.84 MG/DL (0.55-1.30); GLOMERULAR FILTRATION RATE 74.7 (>39); MAGNESIUM LEVEL 1.8 MG/DL (1.8-2.4); POTASSIUM SERUM 4.6 MMOL/L (3.5-5.1); SODIUM LEVEL 147.0 MMOL/L (136-145)
== END ==
LOC: M PLALAB 09:45
PROVIDERS: ATTEND Student in an Organized Health Care Education/Training Program
DX: Z09 Encounter for follow-up examination after completed treatment for conditions other than malignant neoplasm (principal); J18.9 Pneumonia, unspecified organism